=== PATIENT | male | born 1945 | race Caucasian/White ===

== ENCOUNTER 2023-10-12 23:47 | Inpatient (IN) ==
[2023-10-13 00:23] LABS: iSTAT Creatinine 6.9 mg/dl (0.6-1.3); iSTAT Ionized Calcium 1.1 mmol/l (1.12-1.32); iSTAT Potassium 4.5 mmol/L (3.3-5.0)
[2023-10-13 01:13] LABS: Basophils # (auto) 0.11 K/uL (0.00-0.20); Eosinophils # (auto) 0.68 K/uL (0.00-0.50); Eosinophils % (auto) 6.3 %; Hemoglobin 15.4 g/dl (14.0-18.0); Immature Granulocytes # (auto) 0.06 K/uL (0.01-0.20); Immature Granulocytes % (auto) 0.6 %; Lymphocytes # (auto) 1.12 K/uL (1.20-3.40); Lymphocytes % (auto) 10.4 %; Mean Corpuscular Hemoglobin 30.5 pg (25.0-34.0); Mean Corpuscular Hgb Conc 33.5 g/dL (32.0-36.0); Mean Corpuscular Volume 91.1 fL (80.0-100.0); Monocytes # (auto) 1.01 K/uL (0.11-0.59); Monocytes % (auto) 9.3 %; Neutrophils # (auto) 7.83 K/uL (1.40-6.50); Neutrophils % (auto) 72.4 %; Platelet Count 305 K/uL (130-400); RDW Coefficient of Variation 16.6 % (11.5-14.5); Red Blood Count 5.05 M/uL (4.70-6.10); White Blood Count 10.81 K/ul (4.8-10.8)
[2023-10-13 01:21] LABS: Albumin Globulin Ratio 1.1 (0.9-2); Albumin Level 3.7 gm/dl (3.4-5.0); BUN Creatinine Ratio 5.5 (10-20); Bilirubin,Total 0.7 mg/dl (0.2-1.0); Calcium 9.4 mg/dl (8.6-10.3); Creatinine Clr Calc Pharmacy 10.9 ml/min; Est GFR (African American) 9.6 ml/min; Est GFR (Non-African American) 8.3 ml/min; Globulin 3.5 gm/dl (2.5-4.0); Magnesium 1.8 mg/dl (1.7-2.4); Potassium 4.5 mmol/L (3.5-5.1); Total Protein 7.2 gm/dl (6.0-8.3); Troponin I High Sensitivity 23.2 pg/ml (0-20)
[2023-10-13 01:31] LABS: D Dimer 4150 ug/L FEU (0-500)
[2023-10-13] MEDS ORDERED: OPTIRAY 320 125ml IV ONE (02:47)
--- NOTE | 2023-10-13 03:28 | CT Scan Report ---
Exam(s): CTA CHEST IV Amt: 118 ml opti 320 EXAM: CT Angiography Chest With Intravenous Contrast CLINICAL HISTORY: Reason for exam: PE. TECHNIQUE: Axial computed tomographic angiography images of the chest with intravenous contrast. Automated exposure control was utilized for the study. A dose lowering technique was utilized adhering to the principles of ALARA. MIP reconstructed images were created and reviewed. COMPARISON: None. FINDINGS: Pulmonary arteries: Feeling defect identified within the distal bilateral pulmonary arteries extending into the proximal right lower lobe pulmonary artery, left lower lobe and lingular lobe pulmonary arteries consistent with multiple bilateral pulmonary emboli. Small filling defects within the mid distal segmental and subsegmental pulmonary arteries in bilateral lower lobes and lingular locular cyst lined with small pulmonary emboli. Aorta: Atherosclerotic disease of aorta with no aneurysm or dissection. Lungs: Diffuse mild interstitial prominence, cannot exclude interstitial lung disease. Mild emphysematous changes with the lung apices. Bilateral lower lobe atelectasis. Posterior dependent atelectasis involving the bilateral upper lobes. No mass. Pleural space: Unremarkable. No pleural effusion or pneumothorax. Heart: The RV/LV ratio is approximately 1.3 which may indicate mild right-sided cardiac strain. There is hypertrophy of the left ventricle. Mild cardiomegaly with coronary artery calcifications. No significant pericardial effusion. Bones/joints: No acute fracture. No dislocation. Soft tissues: Unremarkable. Lymph nodes: Unremarkable. No enlarged lymph nodes. Intraperitoneal space: Mild ascites surrounding the liver. Remainder of the visualized upper abdominal structures unremarkable. Other findings: Multilevel degenerative disease of the spine. IMPRESSION: 1. Multiple bilateral pulmonary emboli with findings suggesting of early cardiac strain versus hypertrophic changes of the left ventricle, etiology indeterminate. 2. Bilateral lower lobe atelectasis with posterior upper lobe dependent atelectasis as described. 3. No pleural effusion or pneumothorax 4. Mild ascites. Communications: Call Doctor Other Electronically signed by: Quin Ervin MD 10/13/23 03:27 AM
[2023-10-13] MEDS ORDERED: Heparin IV Adult Wt-Based Standard w/ INITIAL Bolus Protocol IV STA (04:00)
[2023-10-13] MEDS ORDERED: HEPARIN SOD (PORCINE) 1000 UNIT/ML IV ONE ×2 (04:15→04:45)
[2023-10-13 04:19] LABS: Prothrombin Time 10.9 Seconds (9.0-12.0)
[2023-10-13] MEDS: HEPARIN SODIUM/DEXTROSE 25,000 UNITS/500 ML BAG IV SCH ×2 (04:56→23:03)
[2023-10-13 04:58] LABS: Appearance Urine Clear (Clear); Bacteria Urine Automated Negative (Negative); Bilirubin Urine Negative (Negative); Blood Urine Trace (Negative); Cast Urine Automated 0 /lpf (0-5); Color Urine Yellow; Epithelial Cell Urine Auto 0-5 /lpf (0-5); Glucose Urine UA Negative (Negative); Ketones Urine Negative (Negative); Leukocyte Esterase Urine Negative (Negative); Nitrite Urine Negative (Negative); RBC Urine Automated 0-4 /hpf (0-4); Specific Gravity Urine 1.013 (1.000-1.030); Urobilinogen Urine Negative (Negative); WBC Urine Automated 0 /hpf (0-5); pH Urine 8.5 (4.5-7.5)
[2023-10-13] MEDS ORDERED: METOPROLOL TARTRATE 1 MG/ML VIAL IV STA (05:00)
[2023-10-13] MEDS ORDERED: SODIUM CHLORIDE 0.9% 500 ML IV SCH (05:00)
--- NOTE | 2023-10-13 05:24 | History & Physical Report ---
Date of Service October 13, 2023 Assessment & Plan (1) Bilateral pulmonary embolism: Plan: 78-year-old male with past medical history significant for peripheral vascular disease, hypertension, history of prostate cancer s/p surgery, end-stage renal disease on peritoneal dialysis comes in because of shortness of breath and palpitation and found to be have bilateral PE and right heart strain. Bilateral pulm embolism Possible right heart strain Mild elevation troponin Started on IV heparin Will follow serial cardiac enzymes and echo Will keep him n.p.o. for now Close monitoring telemetry Tachycardia Wide-complex tachycardia History of 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 Initially his blood pressure was soft but that improved Seems poor oral intake since last 2 weeks Will give gentle fluid bolus and dose of Lopressor IV Lopressor as needed Continue home Coreg Follow echo Telemetry floor Close monitor Cardiology consulted Hypertension Ex- states he is currently taking Coreg 6.25 twice daily Will monitor End-stage renal disease On peritoneal dialysis History of prostate cancer S/p surgery DVT prophylaxis IV heparin Disposition Telemetry floor Full code History of Present Illness Chief Complaint: Shortness of breath Primary Care Provider: [facility] 78-year-old male with past medical history significant for peripheral vascular disease, hypertension, history of prostate cancer s/p surgery, end-stage renal disease on peritoneal dialysis comes in because of shortness of breath and palpitation and found to be have bilateral PE and right heart strain. Patient is very hard of hearing. He lives alone. His ex- and son checks on him daily and hung his peritoneal dialysis daily. For the last 2 weeks is getting progressively short of breath . Walking few steps making him short of breath. When his son was checking on him today his heart was high and brought him here. Initially blood pressure was soft but currently is improved. Heart rates in 150s. Denies any headache. No runny nose or sore throat. Has chronic smoker's cough. Denies any chest pain. No nausea. No abdominal pain. Normal bowel movements. As per his ex- is not eating much since last 2 weeks. Very weak and tired. No fevers. Ex gave most of the history as patient very hard of hearing. Past medical history. As mentioned above Past surgical history. S/p prostatectomy Social history. Former smoker. Quit smoking in January 2023 as per ex-. Alcohol 4 mixed drink per week as per epic. No drug use. Family history. Father had diabetes Allergies Allergy/AdvReac Type Severity Reaction Status Date / Time No Known Allergies Allergy Verified 10/13/23 00:50 Home Medications Medication Instructions Recorded Confirmed Type carvedilol 12.5 mg tablet 12.5 mg PO BID 05/02/23 10/13/23 History vitamin B complex-vitamin C-folic 1 tab PO QAM 05/02/23 10/13/23 History acid 0.8 mg tablet (Nephro-Igor) docusate sodium 100 mg capsule 100 mg PO DAILY 10/13/23 10/13/23 History (Stool Softener) Past Med/Surg History Medical History Renal cyst 3.9 cm cystic lesion-L Paroxysmal A-fib listed in [facility] records CAD (coronary artery disease) PVD (peripheral vascular disease) Dysphagia Anemia Pulmonary nodule MGUS (monoclonal gammopathy of unknown significance) follows with [facility] heme/onc LBBB (left bundle branch block) Hearing deficit Hyperkalemia Prostate cancer s/p prostatectomy Tobacco use Quit 03/2023 HTN (hypertension) HLD (hyperlipidemia) CKD (chronic kidney disease), stage V Surgical History History of appendectomy History of tooth extraction all teeth removed History of bilateral cataract extraction History of prostatectomy Family History Father Diabetes Other No family history of adverse response to anesthesia Social History Smoking Status: Former smoker Tobacco Type: Cigars Smoking End Date: January 2023; Second Hand Exposure: No; Do You Dip or Chew Tobacco: No; Tobacco Cessation Education Requested by Patient: No Hx Alcohol Use: Yes Alcohol type: hard liquor Hx Substance Use: No Preferred Language: Hungarian Communication Ability: Effective Test Desk Supervisor Required: No Beliefs That Will Affect Care: None Current Living Situation: Alone Current Living Situation Comment: Patient lives alone but ex- and son check on him daily and assist pt Other Information That Helps Us Care for You: No Feels Safe at Home: Yes Safety Concerns: Feels Safe At This Time Assistive Devices: Hearing Aid - Bilateral and Walker Review of Systems Review of Systems: All systems reviewed & are unremarkable except as noted in HPI & below Physical Exam Physical Exam: General- Not in distress Head- atraumatic Eyes- PERRL. ENT- oropharynx clear Neck- supple, no JVD. Lungs- clear to auscultation, no wheezing or crackles. Heart- regular rhythm; Tachycardia, no murmur, no gallop. Abdomen- normal bowel sounds, soft, nontender, no distension. PD cath site no erythema seen. Extremities- no pretibial edema, no erythema Neuro- alert,and oriented., hard of hearing. ; PERRL, no facial palsy; no dysarthria; moves extremities. Skin- warm & dry Results & Data Results & Data Vital Signs (Past 12 Hours) Vital Signs Temp Pulse Pulse Resp BP BP Pulse Ox 10/13/23 04:15 156 H 10/13/23 03:15 156 H 20 116/84 92 10/13/23 02:45 150 H 25 H 122/95 91 10/13/23 02:15 159 H 19 122/87 94 10/13/23 02:00 167 H 20 97/76 L 94 10/13/23 01:45 160 H 25 H 109/89 93 10/13/23 01:30 159 H 19 114/86 93 10/13/23 01:15 160 H 16 107/82 94 10/13/23 01:00 161 H 16 114/89 93 10/13/23 00:45 163 H 14 109/85 95 10/13/23 00:31 164 H 20 118/83 95 10/13/23 00:15 163 H 25 H 116/88 94 10/13/23 00:12 163 H 22 96 10/13/23 00:12 164 H 10/13/23 00:09 163 H 20 114/78 93 10/13/23 00:02 179 H 17 95/77 L 94 10/13/23 00:00 179 H 17 97/74 L 96 10/12/23 23:51 36.7 C 165 H 22 124/80 95 10/12/23 23:51 95 O2 Del Method 10/13/23 04:15 10/13/23 03:15 Room Air 10/13/23 02:45 Room Air 10/13/23 02:15 Room Air 10/13/23 02:00 Room Air 10/13/23 01:45 Room Air 10/13/23 01:30 Room Air 10/13/23 01:15 Room Air 10/13/23 01:00 Room Air 10/13/23 00:45 10/13/23 00:31 Room Air 10/13/23 00:15 Room Air 10/13/23 00:12 Room Air 10/13/23 00:12 10/13/23 00:09 Room Air 10/13/23 00:02 Room Air 10/13/23 00:00 Room Air 10/12/23 23:51 Room Air 10/12/23 23:51 Room Air Diagnostic Findings Laboratory Results WBC 10.81 K/ul (4.8-10.8) H 10/13/23 00:00 RBC 5.05 M/uL (4.70-6.10) 10/13/23 00:00 Hgb 15.4 g/dl (14.0-18.0) 10/13/23 00:00 POC Hgb 16.0 g/dl (14.0-18.0) 10/13/23 00:06 Hct 46.0 % (42.0-52.0) 10/13/23 00:00 POC Hct 47 % (42-52) 10/13/23 00:06 MCV 91.1 fL (80.0-100.0) 10/13/23 00:00 MCH 30.5 pg (25.0-34.0) 10/13/23 00:00 MCHC 33.5 g/dL (32.0-36.0) 10/13/23 00:00 RDW Std Deviation 55.0 fL (36.4-46.3) H 10/13/23 00:00 RDW Coeff of Maureen 16.6 % (11.5-14.5) H 10/13/23 00:00 Plt Count 305 K/uL (130-400) 10/13/23 00:00 MPV 11.0 fL (9.4-12.4) 10/13/23 00:00 Immature Gran % (Auto) 0.6 % 10/13/23 00:00 Neut % (Auto) 72.4 % 10/13/23 00:00 Lymph % (Auto) 10.4 % 10/13/23 00:00 [place] % (Auto) 9.3 % 10/13/23 00:00 Eos % (Auto) 6.3 % 12/25/23 00:00 Baso % (Auto) 1.0 % 10/13/23 00:00 Neut # (Auto) 7.83 K/uL (1.40-6.50) H 10/13/23 00:00 Lymph # (Auto) 1.12 K/uL (1.20-3.40) L 10/13/23 00:00 [place] # (Auto) 1.01 K/uL (0.11-0.59) H 10/13/23 00:00 Eos # (Auto) 0.68 K/uL (0.00-0.50) H 10/13/23 00:00 Baso # (Auto) 0.11 K/uL (0.00-0.20) 10/13/23 00:00 Immature Gran # (Auto) 0.06 K/uL (0.01-0.20) 10/13/23 00:00 PT 10.9 Seconds (9.0-12.0) 10/13/23 00:00 INR 1.0 (0.9-1.1) 10/13/23 00:00 D-Dimer 4150 ug/L FEU (0-500) H* 10/13/23 00:00 POC Sodium 134 mmol/L (135-144) L 10/13/23 00:06 Sodium 135 mmol/L (136-145) L 10/13/23 00:00 POC Potassium 4.5 mmol/L (3.3-5.0) 10/13/23 00:06 Potassium 4.5 mmol/L (3.5-5.1) 10/13/23 00:00 POC Chloride 97 mmol/L (101-112) L 10/13/23 00:06 Chloride 94 mmol/L (98-107) L 10/13/23 00:00 Carbon Dioxide 28 mmol/L (21-32) 10/13/23 00:00 POC Total CO2 26 mmol/L (24-31) 10/13/23 00:06 Anion Gap 13 (3-11) H 10/13/23 00:00 POC Anion Gap 17.0 mmol/L (16-25) 10/13/23 00:06 POC BUN 31 mg/dl (7-18) H 10/13/23 00:06 BUN 33 mg/dl (6-23) H 10/13/23 00:00 Creatinine 5.99 mg/dl (0.6-1.4) H* 10/13/23 00:00 POC Creatinine 6.9 mg/dl (0.6-1.3) H* 10/13/23 00:06 Est Cr Clr Drug Dosing 10.9 ml/min 10/13/23 00:00 Est GFR ( Amer) 9.6 ml/min 10/13/23 00:00 Est GFR (Non-Af Amer) 8.3 ml/min 10/13/23 00:00 BUN/Creatinine Ratio 5.5 (10-20) L 10/13/23 00:00 Glucose 132 mg/dl (70-99(Fasting)) H 10/13/23 00:00 POC Glucose (other) 130 mg/dl (70-99) H 10/13/23 00:06 Calcium 9.4 mg/dl (8.6-10.3) 10/13/23 00:00 POC Ioniz Calcium Edie 1.10 mmol/l (1.12-1.32) L 10/13/23 00:06 Magnesium 1.8 mg/dl (1.7-2.4) 10/13/23 00:00 Total Bilirubin 0.7 mg/dl (0.2-1.0) 10/13/23 00:00 AST 27 U/L (13-39) 10/13/23 00:00 ALT 29 U/L (7-52) 10/13/23 00:00 Alkaline Phosphatase 85 U/L (34-104) 10/13/23 00:00 Troponin I High Sens 31.7 pg/ml (0-20) H 10/13/23 01:56 B-Natriuretic Peptide 348 pg/ml (0-100) H 10/13/23 01:23 Total Protein 7.2 gm/dl (6.0-8.3) 10/13/23 00:00 Albumin 3.7 gm/dl (3.4-5.0) 10/13/23 00:00 Globulin 3.5 gm/dl (2.5-4.0) 10/13/23 00:00 Albumin/Globulin Ratio 1.1 (0.9-2) 10/13/23 00:00 Impressions Chest CTA 10/13/23 02:18 CR Exam(s): CTA CHEST IV Amt: 118 ml opti 320 EXAM: CT Angiography Chest With Intravenous Contrast CLINICAL HISTORY: Reason for exam: PE. TECHNIQUE: Axial computed tomographic angiography images of the chest with intravenous contrast. Automated exposure control was utilized for the study. A dose lowering technique was utilized adhering to the principles of ALARA. MIP reconstructed images were created and reviewed. COMPARISON: None. FINDINGS: Pulmonary arteries: Feeling defect identified within the distal bilateral pulmonary arteries extending into the proximal right lower lobe pulmonary artery, left lower lobe and lingular lobe pulmonary arteries consistent with multiple bilateral pulmonary emboli. Small filling defects within the mid distal segmental and subsegmental pulmonary arteries in bilateral lower lobes and lingular locular cyst lined with small pulmonary emboli. Aorta: Atherosclerotic disease of aorta with no aneurysm or dissection. Lungs: Diffuse mild interstitial prominence, cannot exclude interstitial lung disease. Mild emphysematous changes with the lung apices. Bilateral lower lobe atelectasis. Posterior dependent atelectasis involving the bilateral upper lobes. No mass. Pleural space: Unremarkable. No pleural effusion or pneumothorax. Heart: The RV/LV ratio is approximately 1.3 which may indicate mild right-sided cardiac strain. There is hypertrophy of the left ventricle. Mild cardiomegaly with coronary artery calcifications. No significant pericardial effusion. Bones/joints: No acute fracture. No dislocation. Soft tissues: Unremarkable. Lymph nodes: Unremarkable. No enlarged lymph nodes. Intraperitoneal space: Mild ascites surrounding the liver. Remainder of the visualized upper abdominal structures unremarkable. Other findings: Multilevel degenerative disease of the spine. IMPRESSION: 1. Multiple bilateral pulmonary emboli with findings suggesting of early cardiac strain versus hypertrophic changes of the left ventricle, etiology indeterminate. 2. Bilateral lower lobe atelectasis with posterior upper lobe dependent atelectasis as described. 3. No pleural effusion or pneumothorax 4. Mild ascites. Communications: Call Doctor Other Electronically signed by: Quin Ervin MD 10/13/23 03:27 AM ECG Additional Comments: EKG. Wide QRS tachycardia rate of 164. Left axis deviation. Right bundle branch block. No significant change was found. QTc 515. Code Status & VTE Plan VTE Prophylaxis Plan VTE Prophylaxis will be ordered: Yes
[2023-10-13 05:48] LABS: Protein Urine 2+ (Negative)
[2023-10-13 05:56] LABS: Influenza A virus by PCR Negative (Neg); Influenza B virus by PCR Negative (Neg); RSV by PCR Negative (Neg); SARS CoV2 RNA(COVID-19) Ceph NEGATIVE (Negative)
--- NOTE | 2023-10-13 06:13 | Emergency Department Note ---
Impression & Plan Bilateral pulmonary embolism, Acute dyspnea Admit to the [facility] ED Provider Note NAME: JIGNESH BIRD AGE: 78 SEX: Male INFORMANT: Patient ED PROVIDER(S): Tammie Hodgson DO CHIEF COMPLAINT: Shortness of breath PLAN: Disposition: Admit to the [facility] MEDICAL DECISION MAKING: This is a 78-year-old male patient who presents to the emergency department with sudden onset of shortness of breath that worsens with walking. Patient was noted to be significantly tachycardic on EKG. O2 saturations were stable. Laboratory studies reveal white count of 10.8. H&H were stable. Patient had a significant elevation to his D-dimer of 4150. Initial troponin was elevated to 23. BNP was 348. Second troponin was 31.7 chest x-ray showed evidence of mild pulmonary edema. He went for CT scan of the chest to rule out PE. This did show evidence of bilateral pulmonary emboli with right heart strain. Patient was bolused with heparin and started on a heparin drip. He remained hemodynamically stable while here in the emergency department. I discussed the case with the [facility] and they will evaluate for further inpatient care Care/management discussed with: Stat rad radiologist; [facility] Triage Nursing notes: reviewed and agree with them. Vital Signs: reviewed and remarkable for significant tachycardia Additional History obtained from: The patient's family members who are at the bedside Chronic Medical/Social Conditions affecting care: Remote history of significant tobacco abuse; remote history of A-fib Differential Diagnosis: CHF, pneumonia, PE; A-fib Diagnostics, independently interpreted by me: ECG: Wide-complex tachycardia at a rate of 164; right bundle branch block. This was compared to an EKG from April 2023 was essentially the same except the right was 30 beats faster. Cardiac Monitoring: Wide-complex tachycardia at a rate of 150 Imaging studies: Portable chest x-ray: Moderate pulmonary vascular congestion as per my independent interpretation CT scan of the chest: As per stat rad HPI: 78 year old Male arrives for evaluation of 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 Patient developed sudden shortness of breath earlier this evening with only walking short distances. His family took his vital signs and noted that his heart rate was in the 160s. A similar episode happened years ago and he was noted to be in atrial fibrillation and was hyperkalemic. PAST MEDICAL HISTORY: See Below, PAST SURGICAL HISTORY: See Below, SOCIAL HISTORY: See Below, HOME MEDICATIONS: See list ALLERGIES: None VITALS: See Below PHYSICAL EXAMINATION: HEENT: Head - normocephalic and atraumatic Pupils are equal, round, and reactive to light. Extraocular eye muscles are intact, and sclera are anicteric. Nose - moist nasal mucosa without discharge. Mouth - moist buccal mucosa. Oropharynx is nonerythematous and there is no tonsillar exudate or edema noted. Neck: Supple; no JVD, nuchal rigidity, cervical lymphadenopathy, or auscultated bruits. Heart: Tachycardic rate with a regular rhythm there is a normal S1 and S2 with no murmurs, clicks, or gallops appreciated. Lungs: Diminished breath sounds with rales at the bases Abdomen: Soft, completely nontender, nondistended, with good bowel sounds. There are no palpable pulsatile masses or hepatosplenomegaly. There is no guarding, rigidity, or rebound noted. Extremities: No evidence of cyanosis, clubbing, or edema. There are easily palpable peripheral pulses. Skin: warm and dry with good turgor and no rashes. 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 A complete history and physical was performed. Laboratory studies were drawn as above twelve-lead EKG was obtained. An order was placed for continuous cardiac monitoring. The patient was then a wide-complex tachycardia at a rate of 166. Portable chest x-ray was performed. Patient went for CT scan of the chest to rule out PE. Stools were heme tested and were negative. I reviewed the results of the labs and the CT with the patient and his family. Patient was bolused with IV heparin and started on a heparin drip. [facility] for further [facility] care. CRITICAL CARE: I have personally spent greater than 45 minutes of critical care time in the direct management of this patient. This includes bedside care, interpretation of diagnostic studies, and testing, discussion with consultants, patient, and family members, and other required patient management activities. This 45 minutes is in excess of all separately billable procedures. Past Med/Surg History Medical History Renal cyst 3.9 cm cystic lesion-L Paroxysmal A-fib listed in [facility] records CAD (coronary artery disease) PVD (peripheral vascular disease) Dysphagia Anemia Pulmonary nodule MGUS (monoclonal gammopathy of unknown significance) follows with S heme/onc LBBB (left bundle branch block) Hearing deficit Hyperkalemia Prostate cancer s/p prostatectomy Tobacco use Quit 03/2023 HTN (hypertension) HLD (hyperlipidemia) CKD (chronic kidney disease), stage V Surgical History History of appendectomy History of tooth extraction all teeth removed History of bilateral cataract extraction History of prostatectomy Family History Father Diabetes Other No family history of adverse response to anesthesia Social History Smoking Status: Former smoker Tobacco Type: Cigars Smoking End Date: January 2023; Second Hand Exposure: No; Do You Dip or Chew Tobacco: No; Tobacco Cessation Education Requested by Patient: No Hx Alcohol Use: Yes Alcohol type: hard liquor Hx Substance Use: No Preferred Language: Belarusian Communication Ability: [employer] Front Desk Attendant Required: No Beliefs That Will Affect Care: None Current Living Situation: Alone Current Living Situation Comment: Patient lives alone but ex- and son check on him daily and assist pt Other Information That Helps Us Care for You: No Feels Safe at Home: Yes Safety Concerns: Feels Safe At This Time Assistive Devices: Hearing Aid - Bilateral and Walker Allergies Allergies Allergy/AdvReac Type Severity Reaction Status Date / Time No Known Allergies Allergy Verified 10/13/23 00:50 Home Meds Home Medications Medication Instructions Recorded Confirmed carvedilol 12.5 mg tablet 12.5 mg PO BID 05/02/23 10/13/23 vitamin B complex-vitamin C-folic 1 tab PO QAM 05/02/23 10/13/23 acid 0.8 mg tablet (Nephro-Igor) docusate sodium 100 mg capsule 100 mg PO DAILY 10/13/23 10/13/23 (Stool Softener) Results & Data (ED) Vital Signs Vital Signs - 24 hr 10/12/23 23:51 10/12/23 23:51 10/13/23 00:00 Temperature 36.7 C Temperature Source Oral Pulse Rate 165 H 179 H Pulse Rate [Apical] Respiratory Rate 22 17 Respiratory Effort / Characteristics Non-Labored Respiratory Depth Normal Respiratory Pattern Regular Blood Pressure 124/80 97/74 L Blood Pressure [Right Arm] Blood Pressure Mean 94 81 Blood Pressure Mean [Right Arm] Pulse Oximetry 95 95 96 Oxygen Delivery Method Room Air Room Air Room Air Sepsis Recent Fever Within 48 Hours No Sepsis New/Unexplained Change in Mental Status N/A Sepsis Action Taken by Nursing Adv Provider Notified 10/13/23 00:02 10/13/23 00:09 10/13/23 00:12 Temperature Temperature Source Pulse Rate 179 H 163 H 164 H Pulse Rate [Apical] Respiratory Rate 17 20 Respiratory Effort / Characteristics Respiratory Depth Respiratory Pattern Blood Pressure 95/77 L 114/78 Blood Pressure [Right Arm] Blood Pressure Mean 83 90 Blood Pressure Mean [Right Arm] Pulse Oximetry 94 93 Oxygen Delivery Method Room Air Room Air Sepsis Recent Fever Within 48 Hours Sepsis New/Unexplained Change in Mental Status Sepsis Action Taken by Nursing 10/13/23 00:12 10/13/23 00:15 10/13/23 00:31 Temperature Temperature Source Pulse Rate 163 H 163 H 164 H Pulse Rate [Apical] Respiratory Rate 22 25 H 20 Respiratory Effort / Characteristics Respiratory Depth Respiratory Pattern Blood Pressure 116/88 118/83 Blood Pressure [Right Arm] Blood Pressure Mean 97 94 Blood Pressure Mean [Right Arm] Pulse Oximetry 96 94 95 Oxygen Delivery Method Room Air Room Air Room Air Sepsis Recent Fever Within 48 Hours Sepsis New/Unexplained Change in Mental Status Sepsis Action Taken by Nursing 10/13/23 00:45 10/13/23 01:00 10/13/23 01:15 Temperature Temperature Source Pulse Rate 163 H 161 H 160 H Pulse Rate [Apical] Respiratory Rate 14 16 16 Respiratory Effort / Characteristics Respiratory Depth Respiratory Pattern Blood Pressure 109/85 114/89 107/82 Blood Pressure [Right Arm] Blood Pressure Mean 93 97 90 Blood Pressure Mean [Right Arm] Pulse Oximetry 95 93 94 Oxygen Delivery Method Room Air Room Air Sepsis Recent Fever Within 48 Hours Sepsis New/Unexplained Change in Mental Status Sepsis Action Taken by Nursing 10/13/23 01:30 10/13/23 01:45 10/13/23 02:00 Temperature Temperature Source Pulse Rate 159 H 160 H 167 H Pulse Rate [Apical] Respiratory Rate 19 25 H 20 Respiratory Effort / Characteristics Respiratory Depth Respiratory Pattern Blood Pressure 114/86 109/89 97/76 L Blood Pressure [Right Arm] Blood Pressure Mean 95 95 83 Blood Pressure Mean [Right Arm] Pulse Oximetry 93 93 94 Oxygen Delivery Method Room Air Room Air Room Air Sepsis Recent Fever Within 48 Hours Sepsis New/Unexplained Change in Mental Status Sepsis Action Taken by Nursing 10/13/23 02:15 10/13/23 02:45 10/13/23 03:15 Temperature Temperature Source Pulse Rate 159 H 150 H Pulse Rate [Apical] 156 H Respiratory Rate 19 25 H 20 Respiratory Effort / Characteristics Respiratory Depth Respiratory Pattern Blood Pressure 122/87 122/95 Blood Pressure [Right Arm] 116/84 Blood Pressure Mean 98 104 Blood Pressure Mean [Right Arm] 94 Pulse Oximetry 94 91 92 Oxygen Delivery Method Room Air Room Air Room Air Sepsis Recent Fever Within 48 Hours Sepsis New/Unexplained Change in Mental Status Sepsis Action Taken by Nursing 10/13/23 04:15 Temperature Temperature Source Pulse Rate 156 H Pulse Rate [Apical] Respiratory Rate Respiratory Effort / Characteristics Respiratory Depth Respiratory Pattern Blood Pressure Blood Pressure [Right Arm] Blood Pressure Mean Blood Pressure Mean [Right Arm] Pulse Oximetry Oxygen Delivery Method Sepsis Recent Fever Within 48 Hours Sepsis New/Unexplained Change in Mental Status Sepsis Action Taken by Nursing Laboratory Data 10/13/23 10:41 10/13/23 10:41 Lab Results 10/13/23 10/13/23 10/13/23 Range/Units 00:00 00:06 01:23 WBC 10.81 H (4.8-10.8) K/ul RBC 5.05 (4.70-6.10) M/uL Hgb 15.4 (14.0-18.0) g/dl POC Hgb 16.0 (14.0-18.0) g/dl Hct 46.0 (42.0-52.0) % POC Hct 47 (42-52) % MCV 91.1 (80.0-100.0) fL MCH 30.5 (25.0-34.0) pg MCHC 33.5 (32.0-36.0) g/dL RDW Std Deviation 55.0 H (36.4-46.3) fL RDW Coeff of Maureen 16.6 H (11.5-14.5) % Plt Count 305 (130-400) K/uL MPV 11.0 (9.4-12.4) fL Immature Gran % (Auto) 0.6 % Neut % (Auto) 72.4 % Lymph % (Auto) 10.4 % [place] % (Auto) 9.3 % Eos % (Auto) 6.3 % Baso % (Auto) 1.0 % Neut # (Auto) 7.83 H (1.40-6.50) K/uL Lymph # (Auto) 1.12 L (1.20-3.40) K/uL [place] # (Auto) 1.01 H (0.11-0.59) K/uL Eos # (Auto) 0.68 H (0.00-0.50) K/uL Baso # (Auto) 0.11 (0.00-0.20) K/uL Immature Gran # (Auto) 0.06 (0.01-0.20) K/uL PT 10.9 (9.0-12.0) Seconds INR 1.0 (0.9-1.1) D-Dimer 4150 H* (0-500) ug/L FEU POC Sodium 134 L (135-144) mmol/L Sodium 135 L (136-145) mmol/L POC Potassium 4.5 (3.3-5.0) mmol/L Potassium 4.5 (3.5-5.1) mmol/L POC Chloride 97 L (101-112) mmol/L Chloride 94 L (98-107) mmol/L Carbon Dioxide 28 (21-32) mmol/L POC Total CO2 26 (24-31) mmol/L Anion Gap 13 H (3-11) POC Anion Gap 17.0 (16-25) mmol/L POC BUN 31 H (7-18) mg/dl BUN 33 H (6-23) mg/dl Creatinine 5.99 H* (0.6-1.4) mg/dl POC Creatinine 6.9 H* (0.6-1.3) mg/dl Est Cr Clr Drug Dosing 10.9 ml/min Est GFR ( Amer) 9.6 ml/min Est GFR (Non-Af Amer) 8.3 ml/min BUN/Creatinine Ratio 5.5 L (10-20) Glucose 132 H (70-99(Fasting)) mg/dl POC Glucose (other) 130 H (70-99) mg/dl Calcium 9.4 (8.6-10.3) mg/dl POC Ioniz Calcium Edie 1.10 L (1.12-1.32) mmol/l Magnesium 1.8 (1.7-2.4) mg/dl Total Bilirubin 0.7 (0.2-1.0) mg/dl AST 27 (13-39) U/L ALT 29 (7-52) U/L Alkaline Phosphatase 85 (34-104) U/L Troponin I High Sens 23.2 H (0-20) pg/ml B-Natriuretic Peptide 348 H (0-100) pg/ml Total Protein 7.2 (6.0-8.3) gm/dl Albumin 3.7 (3.4-5.0) gm/dl Globulin 3.5 (2.5-4.0) gm/dl Albumin/Globulin Ratio 1.1 (0.9-2) Urine Color Urine Appearance (Clear) Urine pH (4.5-7.5) Ur Specific [place] (1.000-1.030) Urine Protein (Negative) Urine Glucose (UA) (Negative) Urine Ketones (Negative) Urine Blood (Negative) Urine Nitrite (Negative) Urine Bilirubin (Negative) Urine Urobilinogen (Negative) Ur Leukocyte Esterase (Negative) Urine WBC (Auto) (0-5) /hpf Urine RBC (Auto) (0-4) /hpf U Hyaline Cast (Auto) (0-5) /lpf U Epithel Cells (Auto) (0-5) /lpf Urine Bacteria (Auto) (Negative) SARS-CoV-2 (PCR) (Negative) Influenza Type A (PCR) (Neg) Influenza Type B (PCR) (Neg) RSV (RT-PCR) (Neg) 10/13/23 10/13/23 10/13/23 Range/Units 01:56 04:40 05:00 WBC (4.8-10.8) K/ul RBC (4.70-6.10) M/uL Hgb (14.0-18.0) g/dl POC Hgb (14.0-18.0) g/dl Hct (42.0-52.0) % POC Hct (42-52) % MCV (80.0-100.0) fL MCH (25.0-34.0) pg MCHC (32.0-36.0) g/dL RDW Std Deviation (36.4-46.3) fL RDW Coeff of Maureen (11.5-14.5) % Plt Count (130-400) K/uL MPV (9.4-12.4) fL Immature Gran % (Auto) % Neut % (Auto) % Lymph % (Auto) % [place] % (Auto) % Eos % (Auto) % Baso % (Auto) % Neut # (Auto) (1.40-6.50) K/uL Lymph # (Auto) (1.20-3.40) K/uL [place] # (Auto) (0.11-0.59) K/uL Eos # (Auto) (0.00-0.50) K/uL Baso # (Auto) (0.00-0.20) K/uL Immature Gran # (Auto) (0.01-0.20) K/uL PT (9.0-12.0) Seconds INR (0.9-1.1) D-Dimer (0-500) ug/L FEU POC Sodium (135-144) mmol/L Sodium (136-145) mmol/L POC Potassium (3.3-5.0) mmol/L Potassium (3.5-5.1) mmol/L POC Chloride (101-112) mmol/L Chloride (98-107) mmol/L Carbon Dioxide (21-32) mmol/L POC Total CO2 (24-31) mmol/L Anion Gap (3-11) POC Anion Gap (16-25) mmol/L POC BUN (7-18) mg/dl BUN (6-23) mg/dl Creatinine (0.6-1.4) mg/dl POC Creatinine (0.6-1.3) mg/dl Est Cr Clr Drug Dosing ml/min Est GFR ( Amer) ml/min Est GFR (Non-Af Amer) ml/min BUN/Creatinine Ratio (10-20) Glucose (70-99(Fasting)) mg/dl POC Glucose (other) (70-99) mg/dl Calcium (8.6-10.3) mg/dl POC Ioniz Calcium Edie (1.12-1.32) mmol/l Magnesium (1.7-2.4) mg/dl Total Bilirubin (0.2-1.0) mg/dl AST (13-39) U/L ALT (7-52) U/L Alkaline Phosphatase (34-104) U/L Troponin I High Sens 31.7 H (0-20) pg/ml B-Natriuretic Peptide (0-100) pg/ml Total Protein (6.0-8.3) gm/dl Albumin (3.4-5.0) gm/dl Globulin (2.5-4.0) gm/dl Albumin/Globulin Ratio (0.9-2) Urine Color Yellow Urine Appearance Clear (Clear) Urine pH 8.5 H (4.5-7.5) Ur Specific [place] 1.013 (1.000-1.030) Urine Protein 2+ H (Negative) Urine Glucose (UA) Negative (Negative) Urine Ketones Negative (Negative) Urine Blood Trace H (Negative) Urine Nitrite Negative (Negative) Urine Bilirubin Negative (Negative) Urine Urobilinogen Negative (Negative) Ur Leukocyte Esterase Negative (Negative) Urine WBC (Auto) 0 (0-5) /hpf Urine RBC (Auto) 0-4 (0-4) /hpf U Hyaline Cast (Auto) 0 (0-5) /lpf U Epithel Cells (Auto) 0-5 (0-5) /lpf Urine Bacteria (Auto) Negative (Negative) SARS-CoV-2 (PCR) NEGATIVE (Negative) Influenza Type A (PCR) Negative (Neg) Influenza Type B (PCR) Negative (Neg) RSV (RT-PCR) Negative (Neg) Administered Medications Docusate Sodium (Docusate Sodium 100 Mg Cap) 100 mg PO DAILY [facility] Stop: 11/12/23 08:59 Last Admin: 10/13/23 08:46 Dose: Not Given Documented By: ZAC Heparin Sodium/Dextrose (Heparin Sodium/Dextrose) 25,000 units in 500 mls @ 26 mls/hr IV .[id number] [facility]; Protocol Stop: 11/12/23 04:14 Last Titration: 10/13/23 12:14 Dose: 1,300 units/hr, 26 mls/hr Documented By: ZAC Co-signed By: JAYLON Admin: 10/13/23 04:56 Dose: 1,350 units/hr, 27 mls/hr Documented By: IZA Co-signed By: QUYEN Metoprolol Tartrate (Metoprolol Tartrate 25 Mg Tab) 25 mg PO QID [facility] Stop: 11/12/23 08:59 Last Admin: 10/13/23 14:15 Dose: 25 mg Documented By: Admin: 10/13/23 08:41 Dose: 25 mg Documented By: ZAC Vitamin B Complex/Folic Acid (Nephrocaps) 1 cap PO QAM [facility] Stop: 11/12/23 08:59 Last Admin: 10/13/23 08:41 Dose: 1 cap Documented By: ZAC Discontinued Medications Carvedilol (Carvedilol 6.25 Mg Tab) 6.25 mg PO BIDM [facility] Stop: 11/12/23 07:59 Last Admin: 10/13/23 13:03 Dose: Not Given Documented By: ZAC Heparin Sodium (Porcine) (Heparin Sod (Porcine) 1000 Unit/Ml) 6,000 units IV NOW ONE Stop: 10/13/23 04:46 Last Admin: 10/13/23 04:53 Dose: 5,000 units Documented By: IZA Co-signed By: QUYEN Heparin Sodium/Dextrose (Heparin Iv Adult Wt-Based Standard W/ Initial Bolus Protocol) 1 each IV NOW STA; Protocol Stop: 10/13/23 04:01 Last Admin: 10/13/23 04:53 Dose: Not Given Documented By: IZA Sodium Chloride (Nss) 500 mls @ 500 mls/hr IV .Q1H [facility] Stop: 10/13/23 05:59 Last Infusion: 10/13/23 14:16 Dose: Infused Documented By: Admin: 10/13/23 05:29 Dose: 500 mls/hr Documented By: IZA Ioversol (Optiray 320 125ml) 118 ml IV ONCE ONE Stop: 10/13/23 02:48 Last Admin: 10/13/23 02:47 Dose: 118 ml Documented By: KAYA Metoprolol Tartrate (Metoprolol Tartrate 1 Mg/Ml Vial) 5 mg IV NOW STA Stop: 10/13/23 05:01 Last Admin: 10/13/23 05:26 Dose: 5 mg Documented By: IZA Imaging Data Radiologist's Impression: Chest X-Ray 10/13/23 00:12 XR chest 1V portable CLINICAL HISTORY: Dyspnea TECHNIQUE: Single frontal radiograph of the chest was obtained. Comparison: Comparison is made to chest radiograph 05/02/2023 FINDINGS: No lines and tubes are seen. Cardiomegaly is noted. The aortic arch is calcified. Prominence and cephalization of the vasculature is seen. No evidence of pleural effusion or pneumothorax. IMPRESSION: Cardiomegaly and mild pulmonary edema. ACT 112: Negative or not required by law. Electronically signed by: Ajay Lipscomb M.D. 10/13/2023 9:02 AM Chest CTA 10/13/23 02:18 CR Exam(s): CTA CHEST IV Amt: 118 ml opti 320 EXAM: CT Angiography Chest With Intravenous Contrast CLINICAL HISTORY: Reason for exam: PE. TECHNIQUE: Axial computed tomographic angiography images of the chest with intravenous contrast. Automated exposure control was utilized for the study. A dose lowering technique was utilized adhering to the principles of ALARA. MIP reconstructed images were created and reviewed. COMPARISON: None. FINDINGS: Pulmonary arteries: Feeling defect identified within the distal bilateral pulmonary arteries extending into the proximal right lower lobe pulmonary artery, left lower lobe and lingular lobe pulmonary arteries consistent with multiple bilateral pulmonary emboli. Small filling defects within the mid distal segmental and subsegmental pulmonary arteries in bilateral lower lobes and lingular locular cyst lined with small pulmonary emboli. Aorta: Atherosclerotic disease of aorta with no aneurysm or dissection. Lungs: Diffuse mild interstitial prominence, cannot exclude interstitial lung disease. Mild emphysematous changes with the lung apices. Bilateral lower lobe atelectasis. Posterior dependent atelectasis involving the bilateral upper lobes. No mass. Pleural space: Unremarkable. No pleural effusion or pneumothorax. Heart: The RV/LV ratio is approximately 1.3 which may indicate mild right-sided cardiac strain. There is hypertrophy of the left ventricle. Mild cardiomegaly with coronary artery calcifications. No significant pericardial effusion. Bones/joints: No acute fracture. No dislocation. Soft tissues: Unremarkable. Lymph nodes: Unremarkable. No enlarged lymph nodes. Intraperitoneal space: Mild ascites surrounding the liver. Remainder of the visualized upper abdominal structures unremarkable. Other findings: Multilevel degenerative disease of the spine. IMPRESSION: 1. Multiple bilateral pulmonary emboli with findings suggesting of early cardiac strain versus hypertrophic changes of the left ventricle, etiology indeterminate. 2. Bilateral lower lobe atelectasis with posterior upper lobe dependent atelectasis as described. 3. No pleural effusion or pneumothorax 4. Mild ascites. Communications: Call Doctor Other Electronically signed by: Quin Ervin MD 10/13/23 03:27 AM Discharge Plan Visit Data Chief Complaint: Tachycardia Stated Complaint: RAPID HEART RATE ED Provider: Tammie Hodgson Discharge Problem: Bilateral pulmonary embolism, Acute dyspnea Patient Disposition: Admitted As Inpatient Discharge Instructions Interventions: ED Discharge Assessment Last Done: 10/13/23 05:24
[2023-10-13] MEDS ORDERED: POLYETHYLENE (MIRALAX) 17 GM PACK PO PRN (06:27)
[2023-10-13] MEDS ORDERED: NITROGLYCERIN SL 0.4 MG/TAB TAB SL PRN (06:27)
[2023-10-13] MEDS ORDERED: ACETAMINOPHEN 325 MG TAB PO PRN (06:27)
[2023-10-13] MEDS ORDERED: METOPROLOL TARTRATE 1 MG/ML VIAL IV PRN (06:27)
--- NOTE | 2023-10-13 06:55 | Electrocardiogram Report ---
Test Reason : Blood Pressure : / mmHG Vent. Rate : 164 BPM Atrial Rate : 000 BPM P-R Int : 000 ms QRS Dur : 126 ms QT Int : 312 ms P-R-T Axes : 000 -89 037 degrees QTc Int : 515 ms Atrial fibrillation with rapid ventricular response Left axis deviation Right bundle branch block Septal infarct , age undetermined Inferior infarct , age undetermined Abnormal ECG When compared with ECG of 03-MAY-2023 00:55, No significant change was found Confirmed by Dallas Barnett ([id number]) on 10/13/2023 6:55:24 AM Referred By: REFERRED SELF Confirmed By:Dallas Barnett
[2023-10-13] MEDS ORDERED: carvediloL 6.25 MG TAB PO SCH (08:00)
[2023-10-13] MEDS: NEPHROCAPS PO SCH (08:41)
[2023-10-13] MEDS: METOPROLOL TARTRATE 25 MG TAB PO SCH ×4 (08:41→22:08)
--- NOTE | 2023-10-13 08:44 | Cardiology Consultation ---
Date of Consultation October 13, 2023 Assessment & Plan (1) Bilateral pulmonary embolism: (2) Atrial fibrillation with rapid ventricular response: (3) CKD (chronic kidney disease), stage V: Plan 78-year-old male presenting with symptoms of increased dyspnea and palpitations. 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 Bilateral pulmonary emboli: Anticoagulation initiated with additional indications in setting of past paroxysmal now ongoing atrial fibrillation, uncertain duration 2. Atrial fibrillation with rapid ventricular response: Blood pressure initially low on presentation. Will discontinue carvedilol and begin metoprolol tartrate 25 mg 4 times daily. Uncertain duration of atrial fibrillation. Will follow with rate control and anticoagulation as initial approach Echocardiogram pending 3. Minimal elevation in troponin not suggestive of acute coronary syndrome expected in the setting of pulmonary emboli, atrial fibrillation with rapid response, chronic kidney disease History of Present Illness Reason for Consultation: Pulmonary emboli, atrial fibrillation with rapid ventricular response Requesting Physician: Dr. Washington Attending Physician: Bird Pastrana MD History of Present Illness Patient is a 78-year-old male followed primarily through nephrology clinic and [place] clinics. Prior cardiology assessment by Dr. Werner Platt July 2023 Underlying medical concerns include 1. Paroxysmal atrial fibrillation, previously declining chronic anticoagulation per record 2. Presumed coronary artery disease 3. CKD stage V on peritoneal dialysis 4. Peripheral vascular disease 5. Chronic conduction system disease, right bundle branch block, left anterior fascicular block Patient seen and examined but very poor historian. Outpatient and recent records reviewed Patient cared for at home by ex- and son Noted generalized malaise times several weeks but presented yesterday with symptoms of palpitations and increasing shortness of breath Diagnostic imaging revealed bilateral pulmonary emboli EKG reveals atrial fibrillation with rapid ventricular rate with underlying conduction abnormalities Mild hypotension on presentation Currently denies sense of palpitations chest pains. Denies dyspnea, on room air Notes no fevers or chills unaware of any acute gain and weight Has peritoneal dialysis done daily but notes is aided by family members Patient very vague all history Allergies Allergy/AdvReac Type Severity Reaction Status Date / Time No Known Allergies Allergy Verified 10/13/23 00:50 Home Medications Medication Instructions Recorded Confirmed Type carvedilol 12.5 mg tablet 12.5 mg PO BID 05/02/23 10/13/23 History vitamin B complex-vitamin C-folic 1 tab PO QAM 05/02/23 10/13/23 History acid 0.8 mg tablet (Nephro-Igor) docusate sodium 100 mg capsule 100 mg PO DAILY 10/13/23 10/13/23 History (Stool Softener) Patient History Medical History Renal cyst 3.9 cm cystic lesion-L Paroxysmal A-fib listed in [facility] records CAD (coronary artery disease) PVD (peripheral vascular disease) Dysphagia Anemia Pulmonary nodule MGUS (monoclonal gammopathy of unknown significance) follows with [facility] heme/onc LBBB (left bundle branch block) Hearing deficit Hyperkalemia Prostate cancer s/p prostatectomy Tobacco use Quit 03/2023 HTN (hypertension) HLD (hyperlipidemia) CKD (chronic kidney disease), stage V Surgical History History of appendectomy History of tooth extraction all teeth removed History of bilateral cataract extraction History of prostatectomy Family History Father Diabetes Other No family history of adverse response to anesthesia Social History Smoking Status: Former smoker Tobacco Type: Cigars Smoking End Date: January 2023; Second Hand Exposure: No; Do You Dip or Chew Tobacco: No; Tobacco Cessation Education Requested by Patient: No Hx Alcohol Use: Yes Alcohol type: hard liquor Hx Substance Use: No Preferred Language: Tongan Communication Ability: Effective Dental Aide Required: No Beliefs That Will Affect Care: None Current Living Situation: Alone Current Living Situation Comment: Patient lives alone but ex- and son check on him daily and assist pt Other Information That Helps Us Care for You: No Feels Safe at Home: Yes Safety Concerns: Feels Safe At This Time Assistive Devices: Hearing Aid - Bilateral and Walker Review of Systems Review of Systems: Unobtainable due to cognitive status Physical Exam Constitutional: well developed; no acute distress Eyes: PERRL, conjunctivae normal, anicteric sclerae ENMT: external ear and nose normal, oropharynx normal Neck: trachea midline, no thyromegaly Respiratory: Auscultation: + diminished lung sounds Cardiovascular: Rate/Rhythm: + tachycardic and + irregularly irregular Heart Sounds: normal S1 and normal S2 Vessels: no JVD Extremities: no edema Gastrointestinal (Abdomen): Peritoneal dialysis catheter in place. No surrounding erythema mild abdominal distention as expect Musculoskeletal: no cyanosis or clubbing, extremities motor strength 5/5 Results & Data Vital Signs (Past 12 Hours) Vital Signs Temp Pulse Pulse Resp BP BP Pulse Ox 10/13/23 06:28 36.3 C L 139 H 20 110/78 97 10/13/23 05:26 155 H 120/85 10/13/23 05:15 155 H 16 119/89 93 10/13/23 04:15 156 H 10/13/23 03:15 156 H 20 116/84 92 10/13/23 02:45 150 H 25 H 122/95 91 10/13/23 02:15 159 H 19 122/87 94 10/13/23 02:00 167 H 20 97/76 L 94 10/13/23 01:45 160 H 25 H 109/89 93 10/13/23 01:30 159 H 19 114/86 93 10/13/23 01:15 160 H 16 107/82 94 10/13/23 01:00 161 H 16 114/89 93 10/13/23 00:45 163 H 14 109/85 95 10/13/23 00:31 164 H 20 118/83 95 10/13/23 00:15 163 H 25 H 116/88 94 10/13/23 00:12 163 H 22 96 10/13/23 00:12 164 H 10/13/23 00:09 163 H 20 114/78 93 10/13/23 00:02 179 H 17 95/77 L 94 10/13/23 00:00 179 H 17 97/74 L 96 10/12/23 23:51 36.7 C 165 H 22 124/80 95 10/12/23 23:51 95 O2 Del Method 10/13/23 06:28 Room Air 10/13/23 05:26 10/13/23 05:15 Room Air 10/13/23 04:15 10/13/23 03:15 Room Air 10/13/23 02:45 Room Air 10/13/23 02:15 Room Air 10/13/23 02:00 Room Air 10/13/23 01:45 Room Air 10/13/23 01:30 Room Air 10/13/23 01:15 Room Air 10/13/23 01:00 Room Air 10/13/23 00:45 10/13/23 00:31 Room Air 10/13/23 00:15 Room Air 10/13/23 00:12 Room Air 10/13/23 00:12 10/13/23 00:09 Room Air 10/13/23 00:02 Room Air 10/13/23 00:00 Room Air 10/12/23 23:51 Room Air 10/12/23 23:51 Room Air Laboratory Results Laboratory Results - last 24 hr 10/13/23 10/13/23 10/13/23 00:00 00:06 01:23 WBC 10.81 H RBC 5.05 Hgb 15.4 POC Hgb 16.0 Hct 46.0 POC Hct 47 MCV 91.1 MCH 30.5 MCHC 33.5 RDW Std Deviation 55.0 H RDW Coeff of Maureen 16.6 H Plt Count 305 MPV 11.0 Immature Gran % (Auto) 0.6 Neut % (Auto) 72.4 Lymph % (Auto) 10.4 [place] % (Auto) 9.3 Eos % (Auto) 6.3 Baso % (Auto) 1.0 Neut # (Auto) 7.83 H Lymph # (Auto) 1.12 L [place] # (Auto) 1.01 H Eos # (Auto) 0.68 H Baso # (Auto) 0.11 Immature Gran # (Auto) 0.06 PT 10.9 INR 1.0 D-Dimer 4150 H* POC Sodium 134 L Sodium 135 L POC Potassium 4.5 Potassium 4.5 POC Chloride 97 L Chloride 94 L Carbon Dioxide 28 POC Total CO2 26 Anion Gap 13 H POC Anion Gap 17.0 POC BUN 31 H BUN 33 H Creatinine 5.99 H* POC Creatinine 6.9 H* Est Cr Clr Drug Dosing 10.9 Est GFR ( Amer) 9.6 Est GFR (Non-Af Amer) 8.3 BUN/Creatinine Ratio 5.5 L Glucose 132 H POC Glucose (other) 130 H Calcium 9.4 POC Ioniz Calcium Edie 1.10 L Magnesium 1.8 Total Bilirubin 0.7 AST 27 ALT 29 Alkaline Phosphatase 85 Troponin I High Sens 23.2 H B-Natriuretic Peptide 348 H Total Protein 7.2 Albumin 3.7 Globulin 3.5 Albumin/Globulin Ratio 1.1 Urine Color Urine Appearance Urine pH Ur Specific Graham Urine Protein Urine Glucose (UA) Urine Ketones Urine Blood Urine Nitrite Urine Bilirubin Urine Urobilinogen Ur Leukocyte Esterase Urine WBC (Auto) Urine RBC (Auto) U Hyaline Cast (Auto) U Epithel Cells (Auto) Urine Bacteria (Auto) SARS-CoV-2 (PCR) Influenza Type A (PCR) Influenza Type B (PCR) RSV (RT-PCR) 10/13/23 10/13/23 10/13/23 01:56 04:40 05:00 WBC RBC Hgb POC Hgb Hct POC Hct MCV MCH MCHC RDW Std Deviation RDW Coeff of Maureen Plt Count MPV Immature Gran % (Auto) Neut % (Auto) Lymph % (Auto) [place] % (Auto) Eos % (Auto) Baso % (Auto) Neut # (Auto) Lymph # (Auto) [place] # (Auto) Eos # (Auto) Baso # (Auto) Immature Gran # (Auto) PT INR D-Dimer POC Sodium Sodium POC Potassium Potassium POC Chloride Chloride Carbon Dioxide POC Total CO2 Anion Gap POC Anion Gap POC BUN BUN Creatinine POC Creatinine Est Cr Clr Drug Dosing Est GFR ( Amer) Est GFR (Non-Af Amer) BUN/Creatinine Ratio Glucose POC Glucose (other) Calcium POC Ioniz Calcium Edie Magnesium Total Bilirubin AST ALT Alkaline Phosphatase Troponin I High Sens 31.7 H B-Natriuretic Peptide Total Protein Albumin Globulin Albumin/Globulin Ratio Urine Color Yellow Urine Appearance Clear Urine pH 8.5 H Ur Specific [place] 1.013 Urine Protein 2+ H Urine Glucose (UA) Negative Urine Ketones Negative Urine Blood Trace H Urine Nitrite Negative Urine Bilirubin Negative Urine Urobilinogen Negative Ur Leukocyte Esterase Negative Urine WBC (Auto) 0 Urine RBC (Auto) 0-4 U Hyaline Cast (Auto) 0 U Epithel Cells (Auto) 0-5 Urine Bacteria (Auto) Negative SARS-CoV-2 (PCR) NEGATIVE Influenza Type A (PCR) Negative Influenza Type B (PCR) Negative RSV (RT-PCR) Negative
[2023-10-13] MEDS: DOCUSATE SODIUM 100 MG CAP PO SCH (08:46)
--- NOTE | 2023-10-13 09:03 | XRay Report ---
XR chest 1V portable CLINICAL HISTORY: Dyspnea TECHNIQUE: Single frontal radiograph of the chest was obtained. Comparison: Comparison is made to chest radiograph 05/02/2023 FINDINGS: No lines and tubes are seen. Cardiomegaly is noted. The aortic arch is calcified. Prominence and ceph alization of the vasculature is seen. No evidence of pleural effusion or pneumothorax. IMPRESSION: Cardiomegaly and mild pulmonary edema. ACT 112: Negative or not required by law. Electronically signed by: Ajay Lipscomb M.D. 10/13/2023 9:02 AM
--- NOTE | 2023-10-13 10:54 | Nephrology Consultation ---
Date of Consultation October 13, 2023 Assessment & Plan (1) ESRD on peritoneal dialysis: Patient has been started on peritoneal dialysis recently. He was last dialyzed on Friday night volume status good electrolytes within normal range. -Will continue on the same PD prescription today -Please continue him on all of his outpatient medication (2) Bilateral pulmonary embolism: - Presently on heparin drip, shortness of breath better -As per primary History of Present Illness Reason for Consultation: ESRD on PD admitted with bilateral pulmonary embolism Attending Physician: Bird Pastrana MD History of Present Illness 78-year-old male with past medical history significant for peripheral vascular disease, hypertension, history of prostate cancer s/p surgery, end-stage renal disease on peritoneal dialysis comes in because of shortness of breath and palpitation and found to be have bilateral PE and right heart strain. Patient is on peritoneal dialysis, last dialyzed on Friday night. He has helped by his son and his ex- to set up the [facility]. On review, alert, comfortable with no shortness of breath, no pedal edema. Allergies Allergy/AdvReac Type Severity Reaction Status Date / Time No Known Allergies Allergy Verified 10/13/23 00:50 Home Medications Medication Instructions Recorded Confirmed Type carvedilol 12.5 mg tablet 12.5 mg PO BID 05/02/23 10/13/23 History vitamin B complex-vitamin C-folic 1 tab PO QAM 05/02/23 10/13/23 History acid 0.8 mg tablet (Nephro-Igor) docusate sodium 100 mg capsule 100 mg PO DAILY 10/13/23 10/13/23 History (Stool Softener) Patient History Medical History Renal cyst 3.9 cm cystic lesion-L Paroxysmal A-fib listed in [facility] records CAD (coronary artery disease) PVD (peripheral vascular disease) Dysphagia Anemia Pulmonary nodule MGUS (monoclonal gammopathy of unknown significance) follows with [facility] heme/onc LBBB (left bundle branch block) Hearing deficit Hyperkalemia Prostate cancer s/p prostatectomy Tobacco use Quit 03/2023 HTN (hypertension) HLD (hyperlipidemia) CKD (chronic kidney disease), stage V Surgical History History of appendectomy History of tooth extraction all teeth removed History of bilateral cataract extraction History of prostatectomy Family History Father Diabetes Other No family history of adverse response to anesthesia Social History Smoking Status: Former smoker Tobacco Type: Cigars Smoking End Date: January 2023; Second Hand Exposure: No; Do You Dip or Chew Tobacco: No; Tobacco Cessation Education Requested by Patient: No Hx Alcohol Use: Yes Alcohol type: hard liquor Hx Substance Use: No Preferred Language: Vietnamese Communication Ability: Effective Motion Pictures Cartoonist Required: No Beliefs That Will Affect Care: None Current Living Situation: Alone Current Living Situation Comment: Patient lives alone but ex- and son check on him daily and assist pt Other Information That Helps Us Care for You: No Feels Safe at Home: Yes Safety Concerns: Feels Safe At This Time Assistive Devices: Hearing Aid - Bilateral and Walker Review of Systems 2 Review of Systems: All systems reviewed & are unremarkable except as noted in HPI & below Physical Exam 2 Physical Exam: General- Not in distress Neck- supple, no JVD. Lungs- clear to auscultation, no wheezing or crackles. Heart- regular rhythm; Tachycardia, no murmur, no gallop. Abdomen- normal bowel sounds, soft, nontender, no distension. PD cath site no erythema seen. Extremities- no pretibial edema, no erythema Neuro- alert,and oriented., hard of hearing. Results & Data Vital Signs (Past 12 Hours) Vital Signs Temp Pulse Pulse Resp BP BP Pulse Ox 10/13/23 07:46 36.9 C 145 H 19 114/80 92 10/13/23 07:31 144 H 10/13/23 06:28 36.3 C L 139 H 20 110/78 97 10/13/23 05:26 155 H 120/85 10/13/23 05:15 155 H 16 119/89 93 10/13/23 04:15 156 H 10/13/23 03:15 156 H 20 116/84 92 10/13/23 02:45 150 H 25 H 122/95 91 10/13/23 02:15 159 H 19 122/87 94 10/13/23 02:00 167 H 20 97/76 L 94 10/13/23 01:45 160 H 25 H 109/89 93 10/13/23 01:30 159 H 19 114/86 93 10/13/23 01:15 160 H 16 107/82 94 10/13/23 01:00 161 H 16 114/89 93 10/13/23 00:45 163 H 14 109/85 95 10/13/23 00:31 164 H 20 118/83 95 10/13/23 00:15 163 H 25 H 116/88 94 10/13/23 00:12 163 H 22 96 10/13/23 00:12 164 H 10/13/23 00:09 163 H 20 114/78 93 10/13/23 00:02 179 H 17 95/77 L 94 10/13/23 00:00 179 H 17 97/74 L 96 10/12/23 23:51 36.7 C 165 H 22 124/80 95 10/12/23 23:51 95 O2 Del Method 10/13/23 07:46 Room Air 10/13/23 07:31 10/13/23 06:28 Room Air 10/13/23 05:26 10/13/23 05:15 Room Air 10/13/23 04:15 10/13/23 03:15 Room Air 10/13/23 02:45 Room Air 10/13/23 02:15 Room Air 10/13/23 02:00 Room Air 10/13/23 01:45 Room Air 10/13/23 01:30 Room Air 10/13/23 01:15 Room Air 10/13/23 01:00 Room Air 10/13/23 00:45 10/13/23 00:31 Room Air 10/13/23 00:15 Room Air 10/13/23 00:12 Room Air 10/13/23 00:12 10/13/23 00:09 Room Air 10/13/23 00:02 Room Air 10/13/23 00:00 Room Air 10/12/23 23:51 Room Air 10/12/23 23:51 Room Air Laboratory Results 10/13/23 00:00 10/13/23 00:00
[2023-10-13 11:00] LABS: Basophils # (auto) 0.12 K/uL (0.00-0.20); Eosinophils % (auto) 4.1 %; Hematocrit (blood only) 38.6 % (42.0-52.0); Hemoglobin 13.3 g/dl (14.0-18.0); Immature Granulocytes # (auto) 0.06 K/uL (0.01-0.20); Immature Granulocytes % (auto) 0.5 %; Lymphocytes # (auto) 1.27 K/uL (1.20-3.40); Lymphocytes % (auto) 10.3 %; Mean Corpuscular Hemoglobin 30.5 pg (25.0-34.0); Mean Corpuscular Hgb Conc 34.5 g/dL (32.0-36.0); Mean Corpuscular Volume 88.5 fL (80.0-100.0); Mean Platelet Volume 10.7 fL (9.4-12.4); Monocytes # (auto) 1.39 K/uL (0.11-0.59); Monocytes % (auto) 11.3 %; Neutrophils # (auto) 8.96 K/uL (1.40-6.50); Neutrophils % (auto) 72.8 %; Platelet Count 259 K/uL (130-400); RDW Coefficient of Variation 16.5 % (11.5-14.5); RDW Standard Deviation 53.4 fL (36.4-46.3); Red Blood Count 4.36 M/uL (4.70-6.10)
[2023-10-13 11:21] LABS: BUN Creatinine Ratio 5.8 (10-20); Calcium 8.3 mg/dl (8.6-10.3); Creatinine Clr Calc Pharmacy 10.4 ml/min; Est GFR (African American) 9.2 ml/min; Est GFR (Non-African American) 7.9 ml/min; Magnesium 1.7 mg/dl (1.7-2.4); Potassium 4.6 mmol/L (3.5-5.1)
[2023-10-13 11:28] LABS: ANTI-Xa, UFH(UnfractionatedHep 0.71 IU/ml (0.3-0.7)
[2023-10-13 11:34] LABS: Troponin I High Sensitivity 127.7 pg/ml (0-20)
[2023-10-13] MEDS ORDERED: dilTIAZem HCl 5 MG/ML 5 ML VIAL IV STA ×2 (15:41→16:30)
[2023-10-13] MEDS ORDERED: STAT IV Infusion **Titration per Protocol STA (16:30)
[2023-10-13] MEDS ORDERED: dilTIAZem HCL 125 MG in DEXTROSE 5% 100 ML IV SCH (16:45)
[2023-10-13 18:46] LABS: ANTI-Xa, UFH(UnfractionatedHep 0.64 IU/ml (0.3-0.7)
[2023-10-14 04:24] LABS: Hematocrit (blood only) 34.3 % (42.0-52.0); Hemoglobin 11.9 g/dl (14.0-18.0); Mean Corpuscular Hemoglobin 30.7 pg (25.0-34.0); Mean Corpuscular Hgb Conc 34.7 g/dL (32.0-36.0); Mean Corpuscular Volume 88.4 fL (80.0-100.0); Mean Platelet Volume 10.7 fL (9.4-12.4); Platelet Count 242 K/uL (130-400); RDW Coefficient of Variation 16.6 % (11.5-14.5); RDW Standard Deviation 53.2 fL (36.4-46.3); Red Blood Count 3.88 M/uL (4.70-6.10); White Blood Count 9.99 K/ul (4.8-10.8)
[2023-10-14 04:48] LABS: BUN Creatinine Ratio 5.9 (10-20); Calcium 8.1 mg/dl (8.6-10.3); Creatinine Clr Calc Pharmacy 11.6 ml/min; Est GFR (African American) 10.5 ml/min; Est GFR (Non-African American) 9.1 ml/min; Magnesium 1.6 mg/dl (1.7-2.4); Phosphorus 3.9 mg/dl (2.5-4.9); Potassium 3.8 mmol/L (3.5-5.1)
--- NOTE | 2023-10-14 07:35 | Hospitalist Progress Note ---
Date of Service October 14, 2023 Assessment & Plan (1) Bilateral pulmonary embolism: Plan: 78-year-old male with past medical history significant for peripheral vascular disease, hypertension, history of prostate cancer s/p surgery, end-stage renal disease on peritoneal dialysis comes in because of shortness of breath and palpitation and found to be have bilateral PE and poss. right heart strain. Bilateral pulm embolism Possible right heart strain - per cardiology - no R heart strain Mild elevation troponin Started on IV heparin -> plan to start coumadin cardiac enzymes checked, echo obtained, and cardiology consulted Echo -rhythm is atrial fibrillation with rapid ventricular response. The study was technically difficult. LV cavity appears small and underfilled. LV is hyperdynamic. EF 70%. Asymmetric LV hypertrophy involving the septum with maximal thickness of 2 cm. No significant LV outflow tract gradient at rest. There is mild tricuspid regurg. Doppler findings do not suggest pulmonary hypertension. Close monitoring telemetry Tachycardia Wide-complex tachycardia History of 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 Initially his blood pressure was soft but that improved Seems poor oral intake since last 2 weeks Received gentle fluid bolus and dose of Lopressor IV Lopressor as needed Continued home Coreg initially -> switched to metoprolol, cardizem gtt for short period of time -> now pt in sinus Telemetry floor Close monitor Cardiology consulted and following closely - now on metoprolol succinate Hypertension Ex- states he is currently taking Coreg 6.25 twice daily -> changed as above Will monitor End-stage renal disease On peritoneal dialysis History of prostate cancer S/p surgery DVT prophylaxis IV heparin Disposition Telemetry floor Full code Admission and Anticipated Discharge Date Admission Date: October 13, 2023 Subjective Pt seen in follow up of PE, tachycardia, afib w/ RVR, hx of ESRD on PD Yesterday pt tachycardic, difficult to control on metoprolol alone and cardizem drip was started in the afternoon. Now off cardizem and converted to sinus. Pt is laying in bed in NAD. Reports breathing is much improved. No chest pain,no abd. pain. Pt's son present at the bedside and updated. Review of Systems Review of Systems: All systems reviewed & are unremarkable except as noted in Subjective Physical Exam Physical Exam: General- WD/WN M in NAD Head- atraumatic Eyes- PERRL. ENT- oropharynx clear Neck- supple, no JVD. Lungs- clear to auscultation, no wheezing or crackles. Heart- rrr, no murmur, no gallop. Abdomen- normal bowel sounds, soft, nontender, no distension. PD cath site no erythema seen. Extremities- no pretibial edema, no erythema, moves extremities Neuro- alert,and oriented., hard of hearing. ; PERRL, no facial palsy; no dysarthria; moves extremities. Skin- warm & dry Results & Data Results & Data Vital Signs (Past 12 Hours) Vital Signs Temp Pulse Pulse Resp BP Pulse Ox O2 Del Method 10/14/23 04:22 36.4 C L 63 20 129/72 91 Room Air 10/14/23 01:00 36.6 C 63 20 128/72 92 Room Air 10/13/23 21:41 36.6 C 65 20 140/75 93 Room Air 10/13/23 21:00 Room Air 10/13/23 20:23 63 137/82 Laboratory Results 10/14/23 10/13/23 10/13/23 Range/Units 03:57 18:02 12:38 WBC 9.99 (4.8-10.8) K/ul RBC 3.88 L (4.70-6.10) M/uL Hgb 11.9 L (14.0-18.0) g/dl Hct 34.3 L (42.0-52.0) % MCV 88.4 (80.0-100.0) fL MCH 30.7 (25.0-34.0) pg MCHC 34.7 (32.0-36.0) g/dL RDW Std Deviation 53.2 H (36.4-46.3) fL RDW Coeff of Maureen 16.6 H (11.5-14.5) % Plt Count 242 (130-400) K/uL MPV 10.7 (9.4-12.4) fL Immature Gran % (Auto) % Neut % (Auto) % Lymph % (Auto) % [place] % (Auto) % Eos % (Auto) % Baso % (Auto) % Neut # (Auto) (1.40-6.50) K/uL Lymph # (Auto) (1.20-3.40) K/uL [place] # (Auto) (0.11-0.59) K/uL Eos # (Auto) (0.00-0.50) K/uL Baso # (Auto) (0.00-0.20) K/uL Immature Gran # (Auto) (0.01-0.20) K/uL Heparin Anti-Xa, Unfract 0.50 0.64 (0.3-0.7) IU/ml Sodium 134 L (136-145) mmol/L Potassium 3.8 (3.5-5.1) mmol/L Chloride 98 (98-107) mmol/L Carbon Dioxide 26 (21-32) mmol/L Anion Gap 10 (3-11) BUN 33 H (6-23) mg/dl Creatinine 5.57 H* D (0.6-1.4) mg/dl Est Cr Clr Drug Dosing 11.6 ml/min Est GFR ( Amer) 10.5 ml/min Est GFR (Non-Af Amer) 9.1 ml/min BUN/Creatinine Ratio 5.9 L (10-20) Glucose 148 H (70-99(Fasting)) mg/dl Calcium 8.1 L (8.6-10.3) mg/dl Phosphorus 3.9 (2.5-4.9) mg/dl Magnesium 1.6 L (1.7-2.4) mg/dl Troponin I High Sens 151.4 H* 136.0 H* (0-20) pg/ml // Range/Units 10:41 WBC 12.30 H (4.8-10.8) K/ul RBC 4.36 L (4.70-6.10) M/uL Hgb 13.3 L (14.0-18.0) g/dl Hct 38.6 L (42.0-52.0) % MCV 88.5 (80.0-100.0) fL MCH 30.5 (25.0-34.0) pg MCHC 34.5 (32.0-36.0) g/dL RDW Std Deviation 53.4 H (36.4-46.3) fL RDW Coeff of Maureen 16.5 H (11.5-14.5) % Plt Count 259 (130-400) K/uL MPV 10.7 (9.4-12.4) fL Immature Gran % (Auto) 0.5 % Neut % (Auto) 72.8 % Lymph % (Auto) 10.3 % [place] % (Auto) 11.3 % Eos % (Auto) 4.1 % Baso % (Auto) 1.0 % Neut # (Auto) 8.96 H (1.40-6.50) K/uL Lymph # (Auto) 1.27 (1.20-3.40) K/uL [place] # (Auto) 1.39 H (0.11-0.59) K/uL Eos # (Auto) 0.50 (0.00-0.50) K/uL Baso # (Auto) 0.12 (0.00-0.20) K/uL Immature Gran # (Auto) 0.06 (0.01-0.20) K/uL Heparin Anti-Xa, Unfract 0.71 H* (0.3-0.7) IU/ml Sodium 132 L (136-145) mmol/L Potassium 4.6 (3.5-5.1) mmol/L Chloride 97 L (98-107) mmol/L Carbon Dioxide 26 (21-32) mmol/L Anion Gap 9 (3-11) BUN 36 H (6-23) mg/dl Creatinine 6.21 H* (0.6-1.4) mg/dl Est Cr Clr Drug Dosing 10.4 ml/min Est GFR ( Amer) 9.2 ml/min Est GFR (Non-Af Amer) 7.9 ml/min BUN/Creatinine Ratio 5.8 L (10-20) Glucose 131 H (70-99(Fasting)) mg/dl Calcium 8.3 L (8.6-10.3) mg/dl Phosphorus (2.5-4.9) mg/dl Magnesium 1.7 (1.7-2.4) mg/dl Troponin I High Sens 127.7 H* D (0-20) pg/ml Medications Administered Current Inpatient Medications Acetaminophen (Acetaminophen 325 Mg Tab) 650 mg PO Q4H PRN PRN Reason: Pain or Fever Stop: 11/12/23 06:26 Docusate Sodium (Docusate Sodium 100 Mg Cap) 100 mg PO DAILY [facility] Stop: 11/12/23 08:59 Last Admin: 10/13/23 08:46 Dose: Not Given Heparin Sodium/Dextrose (Heparin Sodium/Dextrose) 25,000 units in 500 mls @ 26 mls/hr IV .[id number] [facility]; Protocol Stop: 11/12/23 04:14 Last Titration: 10/14/23 07:18 Dose: 1,300 units/hr, 26 mls/hr Diltiazem HCl 125 mg/ Dextrose 125 mls @ 0 mls/hr IV .Q0M [facility]; Protocol Stop: 11/12/23 16:44 Last Titration: 10/14/23 02:01 Dose: 0 mg/hr, 0 mls/hr Metoprolol Tartrate (Metoprolol Tartrate 1 Mg/Ml Vial) 5 mg IV Q6 PRN PRN Reason: Tachycardia Stop: 11/12/23 06:26 Metoprolol Tartrate (Metoprolol Tartrate 25 Mg Tab) 25 mg PO QID [facility] Stop: 11/12/23 08:59 Last Admin: 10/13/23 22:08 Dose: 25 mg Nitroglycerin (Nitroglycerin Sl 0.4 Mg/Tab Tab) 0.4 mg SL Q5M PRN PRN Reason: Chest Pain Stop: 11/12/23 06:26 Polyethylene Glycol (Polyethylene (Miralax) 17 Gm Pack) 17 gm PO DAILY PRN PRN Reason: Constipation Stop: 11/12/23 06:26 Vitamin B Complex/Folic Acid (Nephrocaps) 1 cap PO QAM [facility] Stop: 11/12/23 08:59 Last Admin: 10/13/23 08:41 Dose: 1 cap
[2023-10-14] MEDS: NEPHROCAPS PO SCH (08:55)
[2023-10-14] MEDS: DOCUSATE SODIUM 100 MG CAP PO SCH (08:55)
[2023-10-14] MEDS: METOPROLOL TARTRATE 25 MG TAB PO SCH ×2 (08:55→13:01)
--- NOTE | 2023-10-14 12:01 | Electrocardiogram Report ---
Test Reason : Blood Pressure : / mmHG Vent. Rate : 096 BPM Atrial Rate : 071 BPM P-R Int : 232 ms QRS Dur : 146 ms QT Int : 516 ms P-R-T Axes : 063 -48 011 degrees QTc Int : 651 ms Sinus rhythm with 1st degree A-V block with Premature supraventricular complexes and Fusion complexes Right bundle branch block Left anterior fascicular block Bifascicular block Abnormal ECG When compared with ECG of 12-OCT-2023 23:51, Sinus rhythm has replaced Atrial fibrillation Vent. rate has decreased BY 68 BPM Left anterior fascicular block is now Present Confirmed by Dominic May ([id number] on 10/14/2023 12:00:42 PM Referred By: REFERRED SELF Confirmed By:Mike May
--- NOTE | 2023-10-14 12:59 | Nephrology Progress Note ---
Date of Service October 14, 2023 Assessment & Plan (1) ESRD on peritoneal dialysis: Plan: Patient has been started on peritoneal dialysis recently. He was last dialyzed on Friday night volume status good electrolytes within normal range. - He was @500 mls positive after CCPD Yesterday, will go for all 2.5 % today - BP and electrolyte wnl -Please continue him on all of his outpatient medication (2) Bilateral pulmonary embolism: Plan: - Presently on heparin drip,no shortness of breath HR better -As per primary Admission and Anticipated Discharge Date Admission Date: October 13, 2023 Subjective Pt seen in follow up of PE, tachycardia, afib w/ RVR, hx of ESRD on PD Review of Systems 2 Review of Systems: All systems reviewed & are unremarkable except as noted in HPI & below Physical Exam 2 Physical Exam: General- Not in distress Neck- supple, no JVD. Lungs- clear to auscultation, no wheezing or crackles. Heart- regular rhythm; Tachycardia, no murmur, no gallop. Abdomen- normal bowel sounds, soft, nontender, no distension. PD cath site no erythema seen. Extremities- no pretibial edema, no erythema Neuro- alert,and oriented., hard of hearing. Results & Data Vital Signs (Past 12 Hours) Vital Signs Temp Pulse Pulse Resp BP Pulse Ox O2 Del Method 10/14/23 10:30 Room Air 10/14/23 10:29 36.3 C L 61 19 131/78 91 Room Air 10/14/23 07:40 36.6 C 65 20 10/14/23 07:15 36.4 C L 67 19 144/77 H 95 Room Air 10/14/23 07:00 65 10/14/23 04:22 36.4 C L 63 20 129/72 91 Room Air 10/14/23 01:00 36.6 C 63 20 128/72 92 Room Air Laboratory Results 10/14/23 03:57 10/14/23 03:57
--- NOTE | 2023-10-14 15:58 | Cardiology Progress Note ---
Date of Service October 14, 2023 Assessment & Plan (1) Bilateral pulmonary embolism: (2) Atrial flutter, paroxysmal: (3) Hypertrophic cardiomyopathy: (4) ESRD on peritoneal dialysis: Plan Transition IV anticoagulation to Coumadin as per hospitalist for treatment of acute pulmonary emboli. No evidence of right ventricular strain per echocardiogram. ECG and telemetry reviewed. Atrial flutter with 2-1 conduction suspected in setting of acute pulmonary embolus. Discontinue metoprolol tartrate 25 mg 4 times daily in favor of Toprol-XL 50 mg twice daily. Results of echocardiogram suggesting asymmetric left ventricular hypertrophy/hypertrophic cardiomyopathy discussed with both the patient and his son. No significant LVOT gradient per echocardiogram. Recommend outpatient cardiac MRI and genetic testing. Continue beta-katerina therapy. Screening of first-degree relatives recommended. Discussed with son at bedside. Admission and Anticipated Discharge Date Admission Date: October 13, 2023 Subjective Patient seen examined the bedside. Poor historian. Son present as well with multiple questions regarding health concerns. Patient denies chest pain or 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 Converted to sinus rhythm at approximately 5 PM yesterday. Currently sinus rhythm in the 60s. IV diltiazem discontinued. Review of Systems Review of Systems: All systems reviewed & are unremarkable except as noted in Subjective Physical Exam Constitutional: well developed and well nourished; no acute distress Respiratory: no respiratory distress, no labored breathing and no retractions Auscultation: no crackles, no rales, no rhonchi and no wheezes Cardiovascular: Rate/Rhythm: regular rate and regular rhythm Heart Sounds: normal S1, normal S2 and + murmur (soft, 1/6 systolic ejection murmur heard best at the right second intercost) Vessels: radial pulses present; no JVD Extremities: no edema Gastrointestinal (Abdomen): Inspection/Auscultation: normal bowel sounds; abdomen not distended Percussion/Palpation: abdomen soft; abdomen nontender, no guarding and abdomen not rigid Neurologic: CN's II-XI intact bilaterally and moves all extremities; no focal motor deficits Results & Data Vital Signs (Past 12 Hours) Vital Signs Temp Pulse Pulse Resp BP Pulse Ox O2 Del Method 10/14/23 10:30 Room Air 10/14/23 10:29 36.3 C L 61 19 131/78 91 Room Air 10/14/23 07:40 36.6 C 65 20 10/14/23 07:15 36.4 C L 67 19 144/77 H 95 Room Air 10/14/23 07:00 65 10/14/23 04:22 36.4 C L 63 20 129/72 91 Room Air Laboratory Results Cardiac Enzymes 10/13/23 Range/Units 18:02 Troponin I High Sens 151.4 H* (0-20) pg/ml CBC 10/14/23 Range/Units 03:57 WBC 9.99 (4.8-10.8) K/ul RBC 3.88 L (4.70-6.10) M/uL Hgb 11.9 L (14.0-18.0) g/dl Hct 34.3 L (42.0-52.0) % Plt Count 242 (130-400) K/uL Comprehensive Metabolic Panel 10/14/23 Range/Units 03:57 Sodium 134 L (136-145) mmol/L Potassium 3.8 (3.5-5.1) mmol/L Chloride 98 (98-107) mmol/L Carbon Dioxide 26 (21-32) mmol/L BUN 33 H (6-23) mg/dl Creatinine 5.57 H* D (0.6-1.4) mg/dl Glucose 148 H (70-99(Fasting)) mg/dl Calcium 8.1 L (8.6-10.3) mg/dl Intake and Output 10/14/23 10/14/23 10/14/23 06:59 14:59 22:59 Intake Total 406.783 / 1637.183 51.567 / 51.567 Output Total 300 / 750 200 / 200 Balance 106.783 / 887.183 -148.433 / -148.433 Intake: IV 306.783 / 1187.183 51.567 / 51.567 Heparin Sodium/Dextrose 25,000 260.866 / 641.266 51.567 / 51.567 units In 500 ml @ 1,300 UNITS/ HR 26 mls/hr IV .[id number] [facility] Rx #:[id number] dilTIAZem HCL 125 mg In 45.917 / 45.917 0 / 0 Dextrose 5% 100 ml @ 0 MG/HR IV .Q0M [facility] Rx#:[id number] Oral 100 / 450 Output: Urine 300 / 750 200 / 200 Peritoneal Dialysis 0 / 0 Ultrafiltration Amount Other: Weight 85.1 kg 85.1 kg Weight Measurement Method Built in [facility] Built in [facility] Patient Weight 10/15/23 06:59 Weight 85.1 kg
[2023-10-14] MEDS: HEPARIN SODIUM/DEXTROSE 25,000 UNITS/500 ML BAG IV SCH (17:38)
[2023-10-14 19:09] LABS: INR 1.1 (0.9-1.1); Prothrombin Time 11.6 Seconds (9.0-12.0)
[2023-10-14] MEDS ORDERED: WARFARIN SOD 5 MG TAB PO ONE (20:00)
[2023-10-14] MEDS: METOPROLOL SUCC 50MG EXT REL TAB PO SCH (20:01)
[2023-10-15] MEDS ORDERED: dilTIAZem HCl 5 MG/ML 5 ML VIAL IV STA ×2 (02:31→04:07)
[2023-10-15] MEDS ORDERED: STAT IV Infusion **Titration per Protocol STA (04:07)
[2023-10-15] MEDS ORDERED: dilTIAZem HCL 125 MG in DEXTROSE 5% 100 ML IV SCH (04:15)
[2023-10-15 04:44] LABS: Hematocrit (blood only) 37.3 % (42.0-52.0); Hemoglobin 12.6 g/dl (14.0-18.0); Mean Corpuscular Hemoglobin 30.4 pg (25.0-34.0); Mean Corpuscular Hgb Conc 33.8 g/dL (32.0-36.0); Mean Corpuscular Volume 89.9 fL (80.0-100.0); Mean Platelet Volume 10.5 fL (9.4-12.4); Platelet Count 273 K/uL (130-400); RDW Coefficient of Variation 16.1 % (11.5-14.5); RDW Standard Deviation 52.8 fL (36.4-46.3); Red Blood Count 4.15 M/uL (4.70-6.10); White Blood Count 9.45 K/ul (4.8-10.8)
[2023-10-15 05:04] LABS: BUN Creatinine Ratio 5.8 (10-20); Calcium 8.6 mg/dl (8.6-10.3); Creatinine Clr Calc Pharmacy 11.6 ml/min; Est GFR (African American) 10.3 ml/min; Est GFR (Non-African American) 8.9 ml/min; Magnesium 1.6 mg/dl (1.7-2.4); Potassium 3.4 mmol/L (3.5-5.1)
[2023-10-15 05:20] LABS: ANTI-Xa, UFH(UnfractionatedHep 0.46 IU/ml (0.3-0.7); Prothrombin Time 11.2 Seconds (9.0-12.0)
[2023-10-15] MEDS ORDERED: MAGNESIUM SULFATE / D5W 1 GM/100 ML BAG IV ONE (06:38)
[2023-10-15] MEDS: METOPROLOL SUCC 50MG EXT REL TAB PO SCH ×2 (08:37→20:23)
[2023-10-15] MEDS: NEPHROCAPS PO SCH (08:38)
[2023-10-15] MEDS: DOCUSATE SODIUM 100 MG CAP PO SCH (08:38)
[2023-10-15] MEDS ORDERED: POTASSIUM CHLORIDE CRTAB 20 MEQ TABCR PO STA (09:59)
--- NOTE | 2023-10-15 10:04 | Hospitalist Progress Note ---
Date of Service October 15, 2023 Assessment & Plan (1) Bilateral pulmonary embolism: Plan: 78-year-old male with past medical history significant for peripheral vascular disease, hypertension, history of prostate cancer s/p surgery, end-stage renal disease on peritoneal dialysis comes in because of shortness of breath and palpitation and found to be have bilateral PE and poss. right heart strain. Bilateral pulm embolism Possible right heart strain - per cardiology - no R heart strain Mild elevation troponin Started on IV heparin -> plan to start coumadin cardiac enzymes checked, echo obtained, and cardiology consulted Echo -rhythm is atrial fibrillation with rapid ventricular response. The study was technically difficult. LV cavity appears small and underfilled. LV is hyperdynamic. EF 70%. Asymmetric LV hypertrophy involving the septum with maximal thickness of 2 cm. No significant LV outflow tract gradient at rest. There is mild tricuspid regurg. Doppler findings do not suggest pulmonary hypertension. Close monitoring telemetry Tachycardia Wide-complex tachycardia History of 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 afib/aflutter w/ RVR Initially his blood pressure was soft but that improved Seems poor oral intake since last 2 weeks Received gentle fluid bolus and dose of Lopressor IV Lopressor as needed Continued home Coreg initially -> switched to metoprolol, cardizem gtt for short period of time -> pt converted to sinus (10/14) Telemetry floor Close monitor Cardiology consulted and following closely - started metoprolol succinate, starting coumadin (10/14) 10/15 early AM pt in aflutter w/ RVR and required iv cardizem Cardiology following closely - added amiodarone (10/15/23) Hypertension Ex- states he is currently taking Coreg 6.25 twice daily -> changed as above Will monitor End-stage renal disease On peritoneal dialysis History of prostate cancer S/p surgery DVT prophylaxis IV heparin Disposition Telemetry floor Full code Admission and Anticipated Discharge Date Admission Date: October 13, 2023 Subjective Pt seen in follow up of PE, tachycardia, afib w/ RVR, hx of ESRD on PD Sitting up in chair, in NAD. No chest pain, shortness of breath, overall feels improved. Started on coumadin yesterday, cont. to monitor INR Early AM pt in flutter w/ RVR, received IV cardizem. Cardiology following closely - started on amiodarone Review of Systems Review of Systems: All systems reviewed & are unremarkable except as noted in Subjective Physical Exam Physical Exam: General- WD/WN M in NAD Head- atraumatic Eyes- PERRL. ENT- oropharynx clear Neck- supple, no JVD. Lungs- clear to auscultation, no wheezing or crackles. Heart- rrr, no murmur, no gallop. Abdomen- normal bowel sounds, soft, nontender, no distension. PD cath site no erythema seen. Extremities- no pretibial edema, no erythema, moves extremities Neuro- alert,and oriented., hard of hearing. ; PERRL, no facial palsy; no dysarthria; moves extremities. Skin- warm & dry Results & Data Results & Data Vital Signs (Past 12 Hours) Vital Signs Temp Pulse Pulse Pulse Resp BP BP 10/15/23 09:00 10/15/23 08:10 36.6 C 68 18 10/15/23 08:00 80 10/15/23 07:20 36.6 C 68 18 116/72 10/15/23 04:18 133 H 123/69 10/15/23 02:50 37.0 C 133 H 20 131/95 10/15/23 02:03 131 H 126/89 10/15/23 02:03 131 H 10/15/23 01:48 135 H 134/87 10/15/23 01:47 135 H 134/87 10/15/23 00:00 84 10/14/23 23:05 36.6 C 86 22 149/83 H Pulse Ox O2 Del Method 10/15/23 09:00 Room Air 10/15/23 08:10 10/15/23 08:00 10/15/23 07:20 91 Room Air 10/15/23 04:18 10/15/23 02:50 94 Room Air 10/15/23 02:03 10/15/23 02:03 10/15/23 01:48 10/15/23 01:47 10/15/23 00:00 10/14/23 23:05 92 Room Air Laboratory Results 10/15/23 10/14/23 Range/Units 04:22 18:22 WBC 9.45 (4.8-10.8) K/ul RBC 4.15 L (4.70-6.10) M/uL Hgb 12.6 L (14.0-18.0) g/dl Hct 37.3 L (42.0-52.0) % MCV 89.9 (80.0-100.0) fL MCH 30.4 (25.0-34.0) pg MCHC 33.8 (32.0-36.0) g/dL RDW Std Deviation 52.8 H (36.4-46.3) fL RDW Coeff of Maureen 16.1 H (11.5-14.5) % Plt Count 273 (130-400) K/uL MPV 10.5 (9.4-12.4) fL PT 11.2 11.6 (9.0-12.0) Seconds INR 1.0 1.1 (0.9-1.1) Heparin Anti-Xa, Unfract 0.46 (0.3-0.7) IU/ml Sodium 136 (136-145) mmol/L Potassium 3.4 L (3.5-5.1) mmol/L Chloride 99 (98-107) mmol/L Carbon Dioxide 26 (21-32) mmol/L Anion Gap 11 (3-11) BUN 33 H (6-23) mg/dl Creatinine 5.66 H* (0.6-1.4) mg/dl Est Cr Clr Drug Dosing 11.6 ml/min Est GFR ( Amer) 10.3 ml/min Est GFR (Non-Af Amer) 8.9 ml/min BUN/Creatinine Ratio 5.8 L (10-20) Glucose 138 H (70-99(Fasting)) mg/dl Calcium 8.6 (8.6-10.3) mg/dl Phosphorus 4.0 (2.5-4.9) mg/dl Magnesium 1.6 L (1.7-2.4) mg/dl Medications Administered Current Inpatient Medications Acetaminophen (Acetaminophen 325 Mg Tab) 650 mg PO Q4H PRN PRN Reason: Pain or Fever Stop: 11/12/23 06:26 Docusate Sodium (Docusate Sodium 100 Mg Cap) 100 mg PO DAILY [facility] Stop: 11/12/23 08:59 Last Admin: 10/15/23 08:38 Dose: Not Given Heparin Sodium/Dextrose (Heparin Sodium/Dextrose) 25,000 units in 500 mls @ 26 mls/hr IV .[id number] [facility]; Protocol Stop: 11/12/23 04:14 Last Titration: 10/15/23 07:13 Dose: 1,300 units/hr, 26 mls/hr Magnesium Oxide (Magnesium Oxide 400 Mg Tab) 400 mg PO QAM [facility] Stop: 11/14/23 09:59 Metoprolol Succinate (Metoprolol Succ 50mg Ext Rel Tab) 50 mg PO BID [facility] Stop: 11/13/23 20:59 Last Admin: 10/15/23 08:37 Dose: 50 mg Metoprolol Tartrate (Metoprolol Tartrate 1 Mg/Ml Vial) 5 mg IV Q6 PRN PRN Reason: Tachycardia Stop: 11/12/23 06:26 Last Admin: 10/15/23 01:48 Dose: 5 mg Nitroglycerin (Nitroglycerin Sl 0.4 Mg/Tab Tab) 0.4 mg SL Q5M PRN PRN Reason: Chest Pain Stop: 11/12/23 06:26 Polyethylene Glycol (Polyethylene (Miralax) 17 Gm Pack) 17 gm PO DAILY PRN PRN Reason: Constipation Stop: 11/12/23 06:26 Vitamin B Complex/Folic Acid (Nephrocaps) 1 cap PO QAM [facility] Stop: 11/12/23 08:59 Last Admin: 10/15/23 08:38 Dose: 1 cap Warfarin Sodium (Warfarin Sod 5 Mg Tab) 5 mg PO DAILY@1600 [facility] Stop: 11/14/23 15:59
[2023-10-15] MEDS: MAGNESIUM OXIDE 400 MG TAB PO SCH (10:59)
[2023-10-15] MEDS: HEPARIN SODIUM/DEXTROSE 25,000 UNITS/500 ML BAG IV SCH (13:37)
--- NOTE | 2023-10-15 13:48 | Cardiology Progress Note ---
Date of Service October 15, 2023 Assessment & Plan (1) Bilateral pulmonary embolism: (2) Atrial flutter, paroxysmal: (3) Hypertrophic cardiomyopathy: (4) ESRD on peritoneal dialysis: (5) Bifascicular block: Plan (1) Bilateral pulmonary embolism: -unprovoked. -check lower extremity venous duplex to rule out DVT for completeness -Continue heparin to coumadin. INR 1 today (2) Atrial flutter, paroxysmal: -Had another episode am of 10/15 lasting from 1:30 AM until 4:39 AM. Converted to sinus rhythm after receiving IV diltiazem. Patient states he felt poorly with the elevated heart rate. -Continue metoprolol succinate 50 mg twice daily -Add amiodarone 200 mg p.o. twice daily at least for short-term course with hopes that as pulmonary embolism situation improves, atrial arrhythmias will dissipate -Liver function test performed earlier this admission were within normal limits. TSH to be performed tomorrow given addition of amiodarone (3) Hypertrophic cardiomyopathy: -Echocardiogram this admission suggest asymmetric left ventricular hypertrophy without left ventricular outflow tract obstruction. Cardiac MRI and genetic testing to be considered as outpatient. Screening first-degree relatives recommended (4) ESRD on peritoneal dialysis: -Volume status appears stable (5) Bifascicular block: -Continue cautious treatment with metoprolol plus amiodarone given bifascicular block. Admission and Anticipated Discharge Date Admission Date: October 13, 2023 Subjective Patient seen in cardiology follow-up. Denies subjective complaint at present. In the air value tester hours this morning he had reverted back to atrial flutter with rapid ventricular response, ventricular rate 150 bpm from 1:30 AM with conversion to sinus rhythm at 4:39 AM after having received IV diltiazem. At present, diltiazem discontinued. Remains on IV heparin. Review of Systems Review of Systems: All systems reviewed & are unremarkable except as noted in HPI & below Physical Exam Constitutional: well developed and well nourished; no acute distress Eyes: PERRL, conjunctivae normal, anicteric sclerae ENMT: external ear and nose normal, oropharynx normal Neck: trachea midline, no thyromegaly Respiratory: no respiratory distress, no labored breathing and no retractions Auscultation: + diminished lung sounds; no crackles, no rales, no rhonchi and no wheezes Cardiovascular: Rate/Rhythm: regular rate, regular rhythm, + tachycardic and + irregularly irregular Heart Sounds: normal S1, normal S2 and + murmur (soft, 1/6 systolic ejection murmur heard best at the right second intercost) Vessels: radial pulses present; no JVD Extremities: no edema Gastrointestinal (Abdomen): Inspection/Auscultation: normal bowel sounds; abdomen not distended Percussion/Palpation: abdomen soft; abdomen nontender, no guarding and abdomen not rigid Musculoskeletal: no cyanosis or clubbing, extremities motor strength 5/5 Neurologic: CN's II-XI intact bilaterally and moves all extremities; no focal motor deficits Results & Data Vital Signs (Past 12 Hours) Vital Signs Temp Pulse Pulse Pulse Resp BP BP 10/15/23 11:08 36.3 C L 68 19 125/66 10/15/23 09:00 10/15/23 08:10 36.6 C 68 18 10/15/23 08:00 80 10/15/23 07:20 36.6 C 68 18 116/72 10/15/23 04:18 133 H 123/69 10/15/23 02:50 37.0 C 133 H 20 131/95 10/15/23 02:03 131 H 126/89 10/15/23 02:03 131 H 10/15/23 01:48 135 H 134/87 10/15/23 01:47 135 H 134/87 Pulse Ox O2 Del Method 10/15/23 11:08 92 Room Air 10/15/23 09:00 Room Air 10/15/23 08:10 10/15/23 08:00 10/15/23 07:20 91 Room Air 10/15/23 04:18 10/15/23 02:50 94 Room Air 10/15/23 02:03 10/15/23 02:03 10/15/23 01:48 10/15/23 01:47 Laboratory Results Coagulation 10/14/23 10/15/23 Range/Units 18:22 04:22 PT 11.6 11.2 (9.0-12.0) Seconds CBC 10/15/23 Range/Units 04:22 WBC 9.45 (4.8-10.8) K/ul RBC 4.15 L (4.70-6.10) M/uL Hgb 12.6 L (14.0-18.0) g/dl Hct 37.3 L (42.0-52.0) % Plt Count 273 (130-400) K/uL Comprehensive Metabolic Panel 10/15/23 Range/Units 04:22 Sodium 136 (136-145) mmol/L Potassium 3.4 L (3.5-5.1) mmol/L Chloride 99 (98-107) mmol/L Carbon Dioxide 26 (21-32) mmol/L BUN 33 H (6-23) mg/dl Creatinine 5.66 H* (0.6-1.4) mg/dl Glucose 138 H (70-99(Fasting)) mg/dl Calcium 8.6 (8.6-10.3) mg/dl Intake and Output 10/14/23 10/15/23 10/15/23 22:59 06:59 14:59 Intake Total 681.367 / 1009.768 276.834 / 1009.768 287.133 / 287.133 Output Total 151 / 1513 Balance 681.367 / 808.768 275.834 / 808.768 -1225.867 / -1225.867 Intake: IV 306.367 / 634.768 276.834 / 634.768 287.133 / 287.133 Heparin Sodium/Dextrose 25,000 306.367 / 633.101 275.167 / 633.101 187.133 / 187.133 units In 500 ml @ 1,300 UNITS/ HR 26 mls/hr IV .[id number] [facility] Rx #:[id number] Magnesium Sulfate / D5w 1 gm In 100 / 100 100 ml @ 50 mls/hr IV [facility] Rx#:[id number] dilTIAZem HCL 125 mg In 1.667 / 1.667 Dextrose 5% 100 ml @ 5 MG/HR 5 mls/hr IV .Q24H [facility] Rx#: [id number] Oral 375 / 375 Output: Peritoneal Dialysis 151 / 151 Ultrafiltration Amount # Bowel Movements Other: # Unmeasured Voids 0 1 Weight 85.1 kg 85.1 kg Weight Measurement Method Built in [facility] Patient Weight 10/16/23 06:59 Weight 85.1 kg
[2023-10-15] MEDS ORDERED: AMIODARONE 200 MG TAB PO ONE (14:00)
--- NOTE | 2023-10-15 15:16 | Ultrasound Report ---
ULTRASOUND BILATERAL LOWER EXTREMITY VENOUS CLINICAL HISTORY: Pulmonary embolus. COMPARISON STUDY: No priors. TECHNIQUE: Real-time, grayscale, and color Doppler sonography of the deep veins of the right and left lower extremity was performed from the inguinal crease to the calf. Compression and augmentation wer e utilized. FINDINGS: There is no sonographic evidence of deep venous thrombosis identified in the right or left lower extremity. The common femoral, superficial femoral, and popliteal veins are patent and normally compressible bilaterally. The greater saphenous vein and the profunda femoris vein at the junction w ith the common femoral vein are clear in both legs. The visualized calf veins are patent bilaterally. IMPRESSION: There is no sonographic evidence of deep venous thrombosis identified in the right or lef t lower extremity. ACT 112: Negative or not required by law. Electronically signed by: Prashant Joyce M.D. 10/15/2023 3:15 PM
--- NOTE | 2023-10-15 15:26 | Electrocardiogram Report ---
Test Reason : Blood Pressure : / mmHG Vent. Rate : 167 BPM Atrial Rate : 127 BPM P-R Int : 000 ms QRS Dur : 144 ms QT Int : 360 ms P-R-T Axes : 000 -75 015 degrees QTc Int : 600 ms Poor data quality, interpretation may be adversely affected Supraventricular tachycardia Left axis deviation Right bundle branch block Inferior infarct , age undetermined Abnormal ECG When compared with ECG of 14-OCT-2023 06:21, Supraventricular tachycardia has replaced sinus rhythm Vent. rate has increased BY 71 BPM Confirmed by Dominic May ([id number]) on 10/15/2023 3:25:55 PM Referred By: REFERRED SELF Confirmed By:Mike May
[2023-10-15] MEDS: AMIODARONE 200 MG TAB PO SCH (16:32)
[2023-10-15] MEDS: WARFARIN SOD 5 MG TAB PO SCH (16:32)
[2023-10-16 05:31] LABS: Hematocrit (blood only) 36.1 % (42.0-52.0); Hemoglobin 12.2 g/dl (14.0-18.0); Mean Corpuscular Hemoglobin 30.4 pg (25.0-34.0); Mean Corpuscular Hgb Conc 33.8 g/dL (32.0-36.0); Mean Platelet Volume 10.6 fL (9.4-12.4); Platelet Count 284 K/uL (130-400); RDW Standard Deviation 52.8 fL (36.4-46.3); Red Blood Count 4.01 M/uL (4.70-6.10); White Blood Count 8.18 K/ul (4.8-10.8)
[2023-10-16 05:33] LABS: BUN Creatinine Ratio 5.7 (10-20); Calcium 8.6 mg/dl (8.6-10.3); Est GFR (African American) 11.7 ml/min; Est GFR (Non-African American) 10.1 ml/min; Potassium 3.6 mmol/L (3.5-5.1)
[2023-10-16 05:51] LABS: Thyroid Stimulating Hormone 4.99 uIu/ml (0.300-4.500)
[2023-10-16 05:52] LABS: ANTI-Xa, UFH(UnfractionatedHep 0.49 IU/ml (0.3-0.7); INR 1.1 (0.9-1.1); Prothrombin Time 11.5 Seconds (9.0-12.0)
[2023-10-16 06:32] LABS: T4 Free Thyroxine 1.21 ng/dl (0.61-1.60)
[2023-10-16] MEDS: MAGNESIUM OXIDE 400 MG TAB PO SCH (08:28)
[2023-10-16] MEDS: NEPHROCAPS PO SCH (08:28)
[2023-10-16] MEDS: DOCUSATE SODIUM 100 MG CAP PO SCH (08:28)
[2023-10-16] MEDS: METOPROLOL SUCC 50MG EXT REL TAB PO SCH ×2 (08:29→20:48)
[2023-10-16] MEDS: AMIODARONE 200 MG TAB PO SCH ×2 (08:29→16:19)
[2023-10-16] MEDS: HEPARIN SODIUM/DEXTROSE 25,000 UNITS/500 ML BAG IV SCH (10:56)
--- NOTE | 2023-10-16 12:05 | Nephrology Progress Note ---
Date of Service October 16, 2023 Assessment & Plan (1) ESRD on peritoneal dialysis: Plan: Patient has been started on peritoneal dialysis recently. He was last dialyzed on Friday night volume status good electrolytes within normal range. - He hada UF of about 400 mls. will continue for all 2.5 % today - BP and electrolyte wnl -Please continue him on all of his outpatient medication (2) Bilateral pulmonary embolism: Plan: - Presently on heparin drip,no shortness of breath HR better -Continue anticoagulation Admission and Anticipated Discharge Date Admission Date: October 13, 2023 Subjective Seen for ESRD on PD. Patient was seen and examined while on PD. Tolerated PD well with negative of about 100 ml Review of Systems 2 Review of Systems: All other systems were reviewed and negative except as noted in HPI Physical Exam 2 Physical Exam: General exam: Appears comfortable, no acute distress HEENT: Pupils are equal and reactive to light Neck: No JVD, neck is supple trachea is midline Respiratory system: Clear breath sounds bilaterally. Gastrointestinal: Abdomen is soft, non distended, non tender, bowel sounds are present CVS: Regular rate and rhythm. No murmurs, rubs or gallops Musculoskeletal: No joint or muscle tenderness Extremities: Non tender, no edema, peripheral pulses are present Neuro: Oriented, no tremors, no focal neurological deficits Skin: No rashes Results & Data Vital Signs (Past 12 Hours) Vital Signs Temp Pulse Pulse Resp BP BP Pulse Ox 10/16/23 11:56 36.6 C 76 18 120/68 92 10/16/23 09:00 10/16/23 08:20 36.4 C L 79 18 10/16/23 07:56 36.4 C L 79 18 148/85 H 90 10/16/23 07:00 69 10/16/23 03:00 36.7 C 65 18 133/78 92 O2 Del Method 10/16/23 11:56 Room Air 10/16/23 09:00 Room Air 10/16/23 08:20 10/16/23 07:56 Nasal Cannula 10/16/23 07:00 10/16/23 03:00 Room Air Laboratory Results 10/16/23 05:01 10/16/23 05:01 WBC 8.18 RBC 4.01 L MCV 90.0 MCH 30.4 MCHC 33.8 RDW Std Deviation 52.8 H RDW Coeff of Maureen 16.0 H Plt Count 284 MPV 10.6
[2023-10-16] MEDS: WARFARIN SOD 5 MG TAB PO SCH (16:19)
--- NOTE | 2023-10-16 16:34 | Hospitalist Progress Note ---
Date of Service October 16, 2023 Assessment & Plan (1) Bilateral pulmonary embolism: Plan: 78-year-old male with past medical history significant for peripheral vascular disease, hypertension, history of prostate cancer s/p surgery, end-stage renal disease on peritoneal dialysis comes in because of shortness of breath and palpitation and found to be have bilateral PE and poss. right heart strain. he is being managed for the following: Bilateral pulm embolism Possible right heart strain - per cardiology - no R heart strain Mild elevation troponin Started on IV heparin -> started on Coumadin 5 mg daily 10/14 cardiac enzymes checked, echo obtained, and cardiology consulted Echo -rhythm is atrial fibrillation with rapid ventricular response. The study was technically difficult. LV cavity appears small and underfilled. LV is hyperdynamic. EF 70%. Asymmetric LV hypertrophy involving the septum with maximal thickness of 2 cm. No significant LV outflow tract gradient at rest. There is mild tricuspid regurg. Doppler findings do not suggest pulmonary hypertension. Close monitoring telemetry PT/INR 1.1 today, follow PT/INR in AM. Continue heparin drip until therapeutic INR. Tachycardia Wide-complex tachycardia History of 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 afib/aflutter w/ RVR Initially his blood pressure was soft but that improved Seems poor oral intake since last 2 weeks Received gentle fluid bolus and dose of Lopressor IV Lopressor as needed Continued home Coreg initially -> switched to metoprolol, cardizem gtt for short period of time -> pt converted to sinus Telemetry floor Close monitor Cardiology consulted and following closely - started metoprolol succinate, starting coumadin (10/14) - 5 mg daily 10/15 early AM pt in aflutter w/ RVR and required iv cardizem Cardiology following closely - added amiodarone (10/15/23) Hypertension Ex- states he is currently taking Coreg 6.25 twice daily -> changed as above Will monitor End-stage renal disease On peritoneal dialysis History of prostate cancer S/p surgery DVT prophylaxis: IV heparin bridge, on coumadin, follow pt/inr Disposition: Telemetry floor Full code Admission and Anticipated Discharge Date Admission Date: October 13, 2023 Subjective Pt seen in follow up of PE, tachycardia, afib w/ RVR, hx of ESRD on PD Lying in bed, NAD. No chest pain, shortness of breath, overall feels improved. Started on coumadin 5 Mg daily on October 14, cont. to monitor INR Early AM of 10/15 pt in flutter w/ RVR, received IV cardizem. BAck to SR. Cardiology following closely - started on amiodarone Physical Exam Physical Exam: General- WD/WN M in NAD Head- atraumatic Eyes- PERRL. ENT- oropharynx clear Neck- supple, no JVD. Lungs- clear to auscultation, no wheezing or crackles. Heart- rrr, no murmur, no gallop. Abdomen- normal bowel sounds, soft, nontender, no distension. PD cath site no erythema seen. Extremities- no pretibial edema, no erythema, moves extremities Neuro- alert,and oriented., hard of hearing. ; PERRL, no facial palsy; no dysarthria; moves extremities. Skin- warm & dry Results & Data Results & Data Vital Signs (Past 12 Hours) Vital Signs Temp Pulse Pulse Resp BP BP Pulse Ox 10/16/23 15:53 36.3 C L 77 18 148/76 H 92 10/16/23 11:56 36.6 C 76 18 120/68 92 10/16/23 09:00 10/16/23 08:20 36.4 C L 79 18 10/16/23 07:56 36.4 C L 79 18 148/85 H 90 10/16/23 07:00 69 O2 Del Method 10/16/23 15:53 Room Air 10/16/23 11:56 Room Air 10/16/23 09:00 Room Air 10/16/23 08:20 10/16/23 07:56 Nasal Cannula 10/16/23 07:00
--- NOTE | 2023-10-16 16:50 | Cardiology Progress Note ---
Date of Service October 16, 2023 Assessment & Plan (1) Bilateral pulmonary embolism: (2) Atrial flutter, paroxysmal: (3) Hypertrophic cardiomyopathy: (4) ESRD on peritoneal dialysis: (5) Bifascicular block: Plan (1) Bilateral pulmonary embolism: - Unprovoked. - Venous duplex negative for DVT - Continue heparin to Coumadin. INR 1.1 today (2) Atrial flutter, paroxysmal: - Had another episode am of 10/15 lasting from 1:30 AM until 4:39 AM. Converted to sinus rhythm after receiving IV diltiazem. Pauline poorly with the elevated heart rate. - Amiodarone 200 mg BID added on 10/15/2023 at least for the short term. - LFT's (Total bilirubin 0.7. AST 27. ALT 29. Alk Phos 83) and TFT's (TSH 4.990 uIU/mL, Free T4 1.2 ng/dL) this admission. CXR and Chest CT on 10/13/2023. - Continue metoprolol succinate 50 mg BID. - Check EKG (3) Hypertrophic cardiomyopathy: - Echocardiogram this admission suggest asymmetric left ventricular hypertrophy without left ventricular outflow tract obstruction. Cardiac MRI and genetic testing to be considered as outpatient. Screening first-degree relatives recommended. Avoid volume depletion. Avoid stimulants. (4) ESRD on peritoneal dialysis: - Volume status appears stable. (5) Bifascicular block: - Continue cautious treatment with metoprolol plus amiodarone given bifascicular block as noted above. Admission and Anticipated Discharge Date Admission Date: October 13, 2023 Supervising Physician Co-Signing Physician Notes 78-year-old male seen examined the bedside. Denies chest pain or shortness of breath at rest. Telemetry reveals sinus rhythm. No palpitations lightheadedness or dizziness. Notes feeling "foggy" today. Offers no other concerns/complaints PE: VSS. Gen: NAD, awake alert and oriented x 3. Heart: Regular rhythm, normal S1-S2. 1/6 systolic ejection murmur heard the base. Lungs: Clear bilateral, no rales, rhonchi, wheeze. Extremities: No edema. A/P: Agree with above PA-C history, physical exam, assessment and plan. Continue IV heparin bridge with daily warfarin for goal INR of 2.0-3.0. Echocardiogram this admission suggest asymmetric left ventricular hypertrophy without left ventricular outflow tract obstruction. Cardiac MRI and genetic testing to be considered as outpatient. Screening first-degree relatives recommended. Avoid volume depletion. In regard to paroxysmal atrial flutter/SVT, recommend continue amiodarone and metoprolol cautiously in the setting of bifascicular block. Monitor telemetry. Subjective Patient seen and examined. Chart, medications, and telemetry reviewed. Feeling OK. No palpitations. No chest pain. No difficulty breathing. Telemetry: Appears to be since with a long first degree AV block. Review of Systems Review of Systems: All systems reviewed & are unremarkable except as noted in Subjective Physical Exam Physical Exam: General: A&Ox3. NAD. Hard of hearing. HENT: Normocephalic. Atraumatic. Eyes: PER. Conjunctiva pink, sclera clear. Neck: No JVD. Heart: RRR. No murmur. Lungs: Clear to auscultation. Abdomen: +BS. + Catheter. Extremities: Mild edema. Excoriations. No evidence of cellulitis on the lower extremities. No clubbing. No cyanosis. Limited neurological examination is without focal deficits. Pulses: radial=2/4, posterior tibial=1/4. Results & Data Vital Signs (Past 12 Hours) Vital Signs Temp Pulse Pulse Resp BP BP Pulse Ox 10/16/23 15:53 36.3 C L 77 18 148/76 H 92 10/16/23 15:00 76 10/16/23 11:56 36.6 C 76 18 120/68 92 10/16/23 09:00 10/16/23 08:20 36.4 C L 79 18 10/16/23 07:56 36.4 C L 79 18 148/85 H 90 10/16/23 07:00 69 O2 Del Method 10/16/23 15:53 Room Air 10/16/23 15:00 10/16/23 11:56 Room Air 10/16/23 09:00 Room Air 10/16/23 08:20 10/16/23 07:56 Nasal Cannula 10/16/23 07:00 Laboratory Results Coagulation 10/16/23 Range/Units 05:01 PT 11.5 (9.0-12.0) Seconds CBC 10/16/23 Range/Units 05:01 WBC 8.18 (4.8-10.8) K/ul RBC 4.01 L (4.70-6.10) M/uL Hgb 12.2 L (14.0-18.0) g/dl Hct 36.1 L (42.0-52.0) % Plt Count 284 (130-400) K/uL Comprehensive Metabolic Panel 10/16/23 Range/Units 05:01 Sodium 135 L (136-145) mmol/L Potassium 3.6 (3.5-5.1) mmol/L Chloride 98 (98-107) mmol/L Carbon Dioxide 27 (21-32) mmol/L BUN 29 H (6-23) mg/dl Creatinine 5.11 H* D (0.6-1.4) mg/dl Glucose 189 H (70-99(Fasting)) mg/dl Calcium 8.6 (8.6-10.3) mg/dl Intake and Output 10/16/23 10/16/23 10/16/23 06:59 14:59 22:59 Intake Total 432.967 / 2552.000 470.133 / 470.133 Output Total 200 / 1714 347 / 347 Balance 232.967 / 838.000 123.133 / 123.133 Intake: IV 282.967 / 717.000 70.133 / 70.133 Heparin Sodium/Dextrose 25,000 282.967 / 617.000 70.133 / 70.133 units In 500 ml @ 1,300 UNITS/ HR 26 mls/hr IV .[id number] [facility] Rx #:[id number] dilTIAZem HCL 125 mg In 0 / 0 Dextrose 5% 100 ml @ 5 MG/HR 5 mls/hr IV .Q24H [facility] Rx#: [id number] Oral 150 / 1385 400 / 400 Output: Urine 200 / 200 Peritoneal Dialysis 347 / 347 Ultrafiltration Amount Other: Weight 86.6 kg 86.6 kg Weight Measurement Method [facility] Patient Weight 10/17/23 06:59 Weight 86.6 kg
[2023-10-17] MEDS: HEPARIN SODIUM/DEXTROSE 25,000 UNITS/500 ML BAG IV SCH (05:52)
[2023-10-17 06:31] LABS: Hematocrit (blood only) 35.1 % (42.0-52.0); Hemoglobin 12.3 g/dl (14.0-18.0); Mean Corpuscular Hemoglobin 30.8 pg (25.0-34.0); Mean Platelet Volume 10.6 fL (9.4-12.4); Platelet Count 293 K/uL (130-400); RDW Coefficient of Variation 15.8 % (11.5-14.5); RDW Standard Deviation 51.2 fL (36.4-46.3); Red Blood Count 3.99 M/uL (4.70-6.10); White Blood Count 8.27 K/ul (4.8-10.8)
[2023-10-17 06:53] LABS: BUN Creatinine Ratio 5.3 (10-20); Calcium 8.5 mg/dl (8.6-10.3); Est GFR (African American) 11.7 ml/min; Est GFR (Non-African American) 10.1 ml/min; Potassium 3.4 mmol/L (3.5-5.1)
[2023-10-17 06:56] LABS: ANTI-Xa, UFH(UnfractionatedHep 0.43 IU/ml (0.3-0.7); INR 1.1 (0.9-1.1)
[2023-10-17] MEDS: MAGNESIUM OXIDE 400 MG TAB PO SCH (08:13)
[2023-10-17] MEDS: AMIODARONE 200 MG TAB PO SCH ×2 (08:13→16:43)
[2023-10-17] MEDS: METOPROLOL SUCC 50MG EXT REL TAB PO SCH (08:13)
[2023-10-17] MEDS: NEPHROCAPS PO SCH (08:14)
[2023-10-17] MEDS: DOCUSATE SODIUM 100 MG CAP PO SCH (08:14)
[2023-10-17] MEDS ORDERED: WARFARIN SOD 3 MG TAB PO ONE (08:52)
[2023-10-17] MEDS ORDERED: POTASSIUM CHLORIDE CRTAB 20 MEQ TABCR PO STA (08:52)
--- NOTE | 2023-10-17 11:04 | Electrocardiogram Report ---
Test Reason : Blood Pressure : / mmHG Vent. Rate : 079 BPM Atrial Rate : 077 BPM P-R Int : 000 ms QRS Dur : 146 ms QT Int : 466 ms P-R-T Axes : 000 -58 013 degrees QTc Int : 534 ms Poor data quality, interpretation may be adversely affected Sinus rhythm with long 1st degree AV block Left anterior fascicular block Right bundle branch block Abnormal ECG Confirmed by Dominic May ([id number]) on 10/17/2023 11:03:49 AM Referred By: REFERRED SELF Confirmed By:Mike May
--- NOTE | 2023-10-17 11:57 | Cardiology Progress Note ---
Date of Service October 17, 2023 Assessment & Plan (1) Bilateral pulmonary embolism: (2) Atrial flutter, paroxysmal: (3) Hypertrophic cardiomyopathy: (4) ESRD on peritoneal dialysis: (5) Bifascicular block: Plan (1) Bilateral pulmonary embolism: - Unprovoked. - Venous duplex negative for DVT - Continue heparin to Coumadin. INR 1.1 today (2) Atrial flutter, paroxysmal: - Tolerated poorly - Amiodarone 200 mg BID added on 10/15/2023, at least for the short term. Benefits, use, and risks fully explained to patient and son. - LFT's (Total bilirubin 0.7. AST 27. ALT 29. Alk Phos 83) and TFT's (TSH 4.990 uIU/mL, Free T4 1.2 ng/dL) this admission. CXR and Chest CT on 10/13/2023. - Continue amiodarone 200 mg twice per day - Switch metoprolol succinate 50 mg BID back to carvedilol 12.5 mg twice per day. If further rhythm issues occur with this change would revert back to metoprolol succinate (3) Hypertrophic cardiomyopathy: - Echocardiogram this admission suggest asymmetric left ventricular hypertrophy without left ventricular outflow tract obstruction. Cardiac MRI and genetic testing to be considered as outpatient. If evidence of myocardial fibrosis on cardiac MRI and OK with Nephrology, add ARB. Avoid volume depletion. Avoid stimulants. Screening first-degree relatives recommended (son aware). (4) ESRD on peritoneal dialysis: - Volume status managed via peritoneal dialysis (5) Bifascicular block: Admission and Anticipated Discharge Date Admission Date: October 13, 2023 Supervising Physician Co-Signing Physician Notes 78-year-old male seen examined the bedside. Denies chest pain or shortness of breath at rest. Telemetry reveals sinus rhythm. No recurrent atrial flutter. Denies palpitations or lightheadedness. Son present at bedside. Voices concern regarding blood pressure trending upward. Carvedilol discontinued on admission in favor of metoprolol to improve heart rate control. PE: VSS. Gen: NAD, awake alert and oriented x 3. Heart: Regular rhythm, normal S1-S2. 1/6 systolic ejection murmur heard the base. Lungs: Clear bilateral, no rales, rhonchi, wheeze. Extremities: No edema. A/P: Agree with above PA-C history, physical exam, assessment and plan. Continue IV heparin bridge. Dose warfarin for goal INR of 2.0-3.0. Agree with increase to 5 mg daily. Echocardiogram this admission suggest asymmetric left ventricular hypertrophy without left ventricular outflow tract obstruction. Cardiac MRI and genetic testing to be considered as outpatient. Screening first-degree relatives recommended. Avoid volume depletion. Consideration for low-dose ARB pending review of MRI. In regard to paroxysmal atrial flutter/SVT, recommend continue amiodaron. Discontinue metoprolol and resume outpatient carvedilol to improve blood pressure control. Subjective Patient seen and examined. Chart, medications, and telemetry reviewed. Son at bedside, with multiple questions/concerns. Notes blood pressures have been creeping up daily off of carvedilol. Patient without complaints. Feeling better. No chest pain. No palpitations. No difficulty breathing. No orthopnea or PND. No lower extremity peripheral edema. Telemetry: Sinus with left anterior fascicular block. Review of Systems Review of Systems: Complete review of systems is otherwise as stated above, negative, or noncontributory. Physical Exam Physical Exam: General: A&Ox3. NAD. Hard of hearing. HENT: Normocephalic. Atraumatic. Eyes: PER. Conjunctiva pink, sclera clear. Neck: No JVD. Heart: RRR, 64 bpm. No murmur. Lungs: Clear to auscultation. Abdomen: +BS. + Catheter. Extremities: Minimal edema. Excoriations. No evidence of cellulitis on the lower extremities. No clubbing. No cyanosis. Limited neurological examination is without focal deficits. Pulses: radial=2/4, posterior tibial=1/4. Results & Data Vital Signs (Past 12 Hours) Vital Signs Temp Pulse Pulse Pulse Resp BP BP 10/17/23 11:12 36.3 C L 64 19 136/70 10/17/23 07:45 36.7 C 62 20 10/17/23 07:09 36.7 C 61 19 147/78 H 10/17/23 07:00 62 10/17/23 03:11 37.4 C 89 20 159/76 H Pulse Ox O2 Del Method 10/17/23 11:12 93 Room Air 10/17/23 07:45 10/17/23 07:09 94 Room Air 10/17/23 07:00 10/17/23 03:11 94 Room Air Laboratory Results Coagulation 10/17/23 Range/Units 05:54 PT 12.0 (9.0-12.0) Seconds CBC 10/17/23 Range/Units 05:54 WBC 8.27 (4.8-10.8) K/ul RBC 3.99 L (4.70-6.10) M/uL Hgb 12.3 L (14.0-18.0) g/dl Hct 35.1 L (42.0-52.0) % Plt Count 293 (130-400) K/uL Comprehensive Metabolic Panel 10/17/23 Range/Units 05:54 Sodium 136 (136-145) mmol/L Potassium 3.4 L (3.5-5.1) mmol/L Chloride 99 (98-107) mmol/L Carbon Dioxide 27 (21-32) mmol/L BUN 27 H (6-23) mg/dl Creatinine 5.11 H* (0.6-1.4) mg/dl Glucose 181 H (70-99(Fasting)) mg/dl Calcium 8.5 L (8.6-10.3) mg/dl Intake and Output 10/16/23 10/17/23 10/17/23 22:59 06:59 14:59 Intake Total 792.267 / 1262.400 41.6 / 41.6 Output Total 300 / 947 300 / 947 1734 / 1734 Balance -300 / 315.400 492.267 / 315.400 -1692.4 / -1692.4 Intake: IV 492.267 / 562.400 41.6 / 41.6 Heparin Sodium/Dextrose 25,000 492.267 / 562.400 41.6 / 41.6 units In 500 ml @ 1,300 UNITS/ HR 26 mls/hr IV .[id number] [facility] Rx #:[id number] Oral 300 / 700 Output: Urine 300 / 300 150 / 150 Other 300 / 300 Peritoneal Dialysis 1584 / 1584 Ultrafiltration Amount Other: Weight 86.6 kg 87.4 kg 87.4 kg Weight Measurement Method [facility] Patient Weight 10/18/23 06:59 Weight 87.4 kg I spent a total of 56 minutes on the date of service in preparation, delivery, and documentation of the care provided to Mr. Monster Samson excluding any time spent in the performance of separately billed services.
--- NOTE | 2023-10-17 12:15 | Nephrology Progress Note ---
Date of Service October 17, 2023 Assessment & Plan (1) ESRD on peritoneal dialysis: Plan: Patient has been started on peritoneal dialysis recently. He was last dialyzed on Friday night volume status good electrolytes within normal range. - He had a UF of about 1500 mls. will continue for all 2.5 % today -Start potassium chloride 20 mcg daily. -Please continue him on all of his outpatient medication (2) Bilateral pulmonary embolism: Plan: - Presently on heparin drip,no shortness of breath HR better -Continue anticoagulation Admission and Anticipated Discharge Date Admission Date: October 13, 2023 Subjective Seen for ESRD. Patient was seen and examined while on PD. He had total UF of 1.5 L. Review of Systems 2 Review of Systems: All other systems were reviewed and negative except as noted in HPI Physical Exam 2 Physical Exam: General exam: Appears comfortable, no acute distress HEENT: Pupils are equal and reactive to light Neck: No JVD, neck is supple trachea is midline Respiratory system: Clear breath sounds bilaterally. Gastrointestinal: Abdomen is soft, non distended, non tender, bowel sounds are present CVS: Regular rate and rhythm. No murmurs, rubs or gallops Musculoskeletal: No joint or muscle tenderness Extremities: Non tender, no edema, peripheral pulses are present Neuro: Oriented, no tremors, no focal neurological deficits Skin: No rashes Results & Data Vital Signs (Past 12 Hours) Vital Signs Temp Pulse Pulse Pulse Resp BP BP 10/17/23 11:12 36.3 C L 64 19 136/70 10/17/23 07:45 36.7 C 62 20 10/17/23 07:09 36.7 C 61 19 147/78 H 10/17/23 07:00 62 10/17/23 03:11 37.4 C 89 20 159/76 H Pulse Ox O2 Del Method 10/17/23 11:12 93 Room Air 10/17/23 07:45 10/17/23 07:09 94 Room Air 10/17/23 07:00 10/17/23 03:11 94 Room Air Laboratory Results 10/17/23 05:54 10/17/23 05:54 WBC 8.27 RBC 3.99 L MCV 88.0 MCH 30.8 MCHC 35.0 RDW Std Deviation 51.2 H RDW Coeff of Maureen 15.8 H Plt Count 293 MPV 10.6
[2023-10-17] MEDS: POTASSIUM CHLORIDE CRTAB 20 MEQ TABCR PO SCH (12:32)
--- NOTE | 2023-10-17 13:43 | Electrocardiogram Report ---
Test Reason : Blood Pressure : / mmHG Vent. Rate : 063 BPM Atrial Rate : 063 BPM P-R Int : 228 ms QRS Dur : 156 ms QT Int : 526 ms P-R-T Axes : 016 -61 046 degrees QTc Int : 538 ms Sinus rhythm with 1st degree A-V block Right bundle branch block Left anterior fascicular block Bifascicular block Abnormal ECG When compared with ECG of 16-OCT-2023 17:03, Previous ECG has undetermined rhythm, needs review Confirmed by Dominic May ([id number]) on 10/17/2023 1:43:01 PM Referred By: REFERRED SELF Confirmed By:Mike May
[2023-10-17] MEDS: WARFARIN SOD 5 MG TAB PO SCH (16:43)
[2023-10-17] MEDS: carvediloL 12.5 MG TAB PO SCH (16:43)
--- NOTE | 2023-10-17 16:44 | Hospitalist Progress Note ---
Date of Service October 17, 2023 Assessment & Plan (1) Bilateral pulmonary embolism: Plan: 78-year-old male with past medical history significant for peripheral vascular disease, hypertension, history of prostate cancer s/p surgery, end-stage renal disease on peritoneal dialysis comes in because of shortness of breath and palpitation and found to be have bilateral PE and poss. right heart strain. he is being managed for the following: Bilateral pulm embolism Possible right heart strain - per cardiology - no R heart strain Mild elevation troponin Started on IV heparin -> started on Coumadin 5 mg daily 10/14 cardiac enzymes checked, echo obtained, and cardiology consulted Echo -rhythm is atrial fibrillation with rapid ventricular response. The study was technically difficult. LV cavity appears small and underfilled. LV is hyperdynamic. EF 70%. Asymmetric LV hypertrophy involving the septum with maximal thickness of 2 cm. No significant LV outflow tract gradient at rest. There is mild tricuspid regurg. Doppler findings do not suggest pulmonary hypertension. Close monitoring telemetry PT/INR 1.1 today, follow PT/INR in AM. Continue heparin drip until therapeutic INR. Additional dose of warfarin given today. Tachycardia Wide-complex tachycardia History of 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 afib/aflutter w/ RVR Initially his blood pressure was soft but that improved Seems poor oral intake since last 2 weeks Received gentle fluid bolus and dose of Lopressor IV Lopressor as needed Continued home Coreg initially -> switched to metoprolol, cardizem gtt for short period of time -> pt converted to sinus Telemetry floor Close monitor Cardiology consulted and following closely -patient's beta-katerina being optimized, currently on Coreg Started coumadin (10/14) - 5 mg daily, additional dose Coumadin 10/17. 10/15 early AM pt in aflutter w/ RVR and required iv cardizem Cardiology following closely - added amiodarone (10/15/23) Hypertension Ex- states he is currently taking Coreg 6.25 twice daily -> changed as above Will monitor End-stage renal disease On peritoneal dialysis History of prostate cancer S/p surgery DVT prophylaxis: IV heparin bridge, on coumadin, follow pt/inr Disposition: Telemetry floor Full code Admission and Anticipated Discharge Date Admission Date: October 13, 2023 Subjective Pt seen in follow up of PE, tachycardia, afib w/ RVR, hx of ESRD on PD Lying in bed, NAD. No chest pain, shortness of breath, overall feels improved. Started on coumadin 5 Mg daily on October 14, cont. to monitor INR. Given additional dose of 3 mg on 10/17. Early AM of 10/15 pt in flutter w/ RVR, received IV cardizem. BAck to SR. Cardiology following closely - started on amiodarone Patient's sons at bedside who was also updated on plan of care. Physical Exam Physical Exam: General- WD/WN M in NAD Head- atraumatic Eyes- PERRL. ENT- oropharynx clear Neck- supple, no JVD. Lungs- clear to auscultation, no wheezing or crackles. Heart- rrr, no murmur, no gallop. Abdomen- normal bowel sounds, soft, nontender, no distension. PD cath site no erythema seen. Extremities- no pretibial edema, no erythema, moves extremities Neuro- alert,and oriented., hard of hearing. ; PERRL, no facial palsy; no dysarthria; moves extremities. Skin- warm & dry Results & Data Results & Data Vital Signs (Past 12 Hours) Vital Signs Temp Pulse Pulse Pulse Resp BP BP 10/17/23 15:14 36.4 C L 61 19 159/84 H 10/17/23 15:00 60 10/17/23 11:12 36.3 C L 64 19 136/70 10/17/23 07:45 36.7 C 62 20 10/17/23 07:09 36.7 C 61 19 147/78 H 10/17/23 07:00 62 Pulse Ox O2 Del Method 10/17/23 15:14 94 Room Air 10/17/23 15:00 10/17/23 11:12 93 Room Air 10/17/23 07:45 10/17/23 07:09 94 Room Air 10/17/23 07:00
[2023-10-18] MEDS: HEPARIN SODIUM/DEXTROSE 25,000 UNITS/500 ML BAG IV SCH ×2 (01:21→20:56)
[2023-10-18 06:02] LABS: Hematocrit (blood only) 36.2 % (42.0-52.0); Hemoglobin 12.5 g/dl (14.0-18.0); Mean Corpuscular Hemoglobin 30.9 pg (25.0-34.0); Mean Corpuscular Hgb Conc 34.5 g/dL (32.0-36.0); Mean Corpuscular Volume 89.6 fL (80.0-100.0); Mean Platelet Volume 10.8 fL (9.4-12.4); Platelet Count 296 K/uL (130-400); RDW Coefficient of Variation 15.7 % (11.5-14.5); RDW Standard Deviation 51.6 fL (36.4-46.3); Red Blood Count 4.04 M/uL (4.70-6.10); White Blood Count 7.81 K/ul (4.8-10.8)
[2023-10-18 06:17] LABS: Calcium 8.6 mg/dl (8.6-10.3); Creatinine Clr Calc Pharmacy 12.9 ml/min; Est GFR (African American) 11.5 ml/min; Magnesium 1.7 mg/dl (1.7-2.4); Potassium 4.3 mmol/L (3.5-5.1)
[2023-10-18 06:28] LABS: INR 1.4 (0.9-1.1); Prothrombin Time 15.1 Seconds (9.0-12.0)
[2023-10-18 06:29] LABS: ANTI-Xa, UFH(UnfractionatedHep 0.49 IU/ml (0.3-0.7)
[2023-10-18] MEDS: AMIODARONE 200 MG TAB PO SCH ×2 (08:04→16:49)
[2023-10-18] MEDS: MAGNESIUM OXIDE 400 MG TAB PO SCH (08:05)
[2023-10-18] MEDS: carvediloL 12.5 MG TAB PO SCH ×2 (08:05→16:49)
[2023-10-18] MEDS: NEPHROCAPS PO SCH (08:05)
[2023-10-18] MEDS: DOCUSATE SODIUM 100 MG CAP PO SCH (08:05)
[2023-10-18] MEDS: POTASSIUM CHLORIDE CRTAB 20 MEQ TABCR PO SCH (08:07)
[2023-10-18] MEDS ORDERED: WARFARIN SOD 2 MG TAB PO STA (08:49)
--- NOTE | 2023-10-18 10:21 | Nephrology Progress Note ---
Date of Service October 18, 2023 Assessment & Plan (1) ESRD on peritoneal dialysis: Plan: Patient has been started on peritoneal dialysis recently. He was last dialyzed on Friday night volume status good electrolytes within normal range. - He had no UF last night. will continue for all 2.5 % today -continue potassium chloride 20 meq daily. -Please continue him on all of his outpatient medication Hold magnesium oxide due to diarrhea (2) Bilateral pulmonary embolism: Plan: - Presently on heparin drip,no shortness of breath HR better -Continue anticoagulation Admission and Anticipated Discharge Date Admission Date: October 13, 2023 Subjective Seen for ESRD. Patient was seen and examined while on PD. He tolerated PD well last night. No UF. He has been having diarrhea. Review of Systems 2 Review of Systems: All other systems were reviewed and negative except as noted in HPI Physical Exam 2 Physical Exam: General exam: Appears comfortable, no acute distress HEENT: Pupils are equal and reactive to light Neck: No JVD, neck is supple trachea is midline Respiratory system: Clear breath sounds bilaterally. Gastrointestinal: Abdomen is soft, non distended, non tender, bowel sounds are present CVS: Regular rate and rhythm. No murmurs, rubs or gallops Musculoskeletal: No joint or muscle tenderness Extremities: Non tender, no edema, peripheral pulses are present Neuro: Oriented, no tremors, no focal neurological deficits Skin: No rashes Results & Data Vital Signs (Past 12 Hours) Vital Signs Temp Pulse Pulse Pulse Resp BP Pulse Ox 10/18/23 08:00 75 10/18/23 07:14 36.4 C L 76 19 10/18/23 07:14 36.4 C L 76 19 146/82 H 92 10/18/23 02:33 36.5 C 60 18 131/80 94 10/18/23 00:00 61 10/17/23 23:00 36.5 C 56 L 18 132/79 94 O2 Del Method 10/18/23 08:00 10/18/23 07:14 10/18/23 07:14 Room Air 10/18/23 02:33 Room Air 10/18/23 00:00 10/17/23 23:00 Room Air Laboratory Results 10/18/23 05:19 10/18/23 05:19 WBC 7.81 RBC 4.04 L MCV 89.6 MCH 30.9 MCHC 34.5 RDW Std Deviation 51.6 H RDW Coeff of Maureen 15.7 H Plt Count 296 MPV 10.8
--- NOTE | 2023-10-18 16:35 | Hospitalist Progress Note ---
Date of Service October 18, 2023 Assessment & Plan (1) Bilateral pulmonary embolism: Plan: 78-year-old male with past medical history significant for peripheral vascular disease, hypertension, history of prostate cancer s/p surgery, end-stage renal disease on peritoneal dialysis comes in because of shortness of breath and palpitation and found to be have bilateral PE and poss. right heart strain. he is being managed for the following: Bilateral pulm embolism Possible right heart strain - per cardiology - no R heart strain Mild elevation troponin Started on IV heparin -> started on Coumadin 5 mg daily 10/14 cardiac enzymes checked, echo obtained, and cardiology consulted Echo -rhythm is atrial fibrillation with rapid ventricular response. The study was technically difficult. LV cavity appears small and underfilled. LV is hyperdynamic. EF 70%. Asymmetric LV hypertrophy involving the septum with maximal thickness of 2 cm. No significant LV outflow tract gradient at rest. There is mild tricuspid regurg. Doppler findings do not suggest pulmonary hypertension. Close monitoring telemetry PT/INR 1.4 today, follow PT/INR in AM. Continue heparin drip until therapeutic INR. Additional dose of warfarin given today. Tachycardia Wide-complex tachycardia History of 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 afib/aflutter w/ RVR Initially his blood pressure was soft but that improved Seems poor oral intake since last 2 weeks Received gentle fluid bolus and dose of Lopressor IV Lopressor as needed Continued home Coreg initially -> switched to metoprolol, cardizem gtt for short period of time -> pt converted to sinus Telemetry floor Close monitor Cardiology consulted and following closely -patient's beta-katerina being optimized, currently on Coreg Started coumadin (10/14) - 5 mg daily, additional dose Coumadin 10/17 and 10/18 10/15 early AM pt in aflutter w/ RVR and required iv cardizem Cardiology following closely - added amiodarone (10/15/23), back on coreg. Hypertension Ex- states he is currently taking Coreg 6.25 twice daily -> changed as above Will monitor End-stage renal disease On peritoneal dialysis History of prostate cancer S/p surgery DVT prophylaxis: IV heparin bridge, on coumadin, follow pt/inr Disposition: Telemetry floor Full code Admission and Anticipated Discharge Date Admission Date: October 13, 2023 Subjective Pt seen in follow up of PE, tachycardia, afib w/ RVR, hx of ESRD on PD Lying in bed, NAD. No chest pain, shortness of breath, overall feels improved. Started on coumadin 5 Mg daily on October 14, cont. to monitor INR. Given additional dose of 3 mg on 10/17 and 2 mg on 10/18. Early AM of 10/15 pt in flutter w/ RVR, received IV cardizem. BAck to SR. Cardiology following closely - started on amiodarone Physical Exam Physical Exam: General- WD/WN M in NAD Head- atraumatic Eyes- PERRL. ENT- oropharynx clear Neck- supple, no JVD. Lungs- clear to auscultation, no wheezing or crackles. Heart- rrr, no murmur, no gallop. Abdomen- normal bowel sounds, soft, nontender, no distension. PD cath site no erythema seen. Extremities- no pretibial edema, no erythema, moves extremities Neuro- alert,and oriented., hard of hearing. ; PERRL, no facial palsy; no dysarthria; moves extremities. Skin- warm & dry Results & Data Results & Data Vital Signs (Past 12 Hours) Vital Signs Temp Pulse Pulse Pulse Resp BP Pulse Ox 10/18/23 16:12 36.6 C 68 18 132/76 96 10/18/23 11:30 36.4 C L 74 19 125/77 93 10/18/23 08:00 75 10/18/23 07:14 36.4 C L 76 19 10/18/23 07:14 36.4 C L 76 19 146/82 H 92 O2 Del Method 10/18/23 16:12 Room Air 10/18/23 11:30 Room Air 10/18/23 08:00 10/18/23 07:14 10/18/23 07:14 Room Air
[2023-10-18] MEDS: WARFARIN SOD 5 MG TAB PO SCH (16:49)
[2023-10-19 06:25] LABS: ANTI-Xa, UFH(UnfractionatedHep 0.62 IU/ml (0.3-0.7)
[2023-10-19 06:27] LABS: Prothrombin Time 20.5 Seconds (9.0-12.0)
[2023-10-19] MEDS: AMIODARONE 200 MG TAB PO SCH (08:50)
[2023-10-19] MEDS: carvediloL 12.5 MG TAB PO SCH (08:50)
[2023-10-19] MEDS: DOCUSATE SODIUM 100 MG CAP PO SCH (08:51)
[2023-10-19] MEDS: NEPHROCAPS PO SCH (08:52)
[2023-10-19] MEDS: POTASSIUM CHLORIDE CRTAB 20 MEQ TABCR PO SCH (08:56)
--- NOTE | 2023-10-19 12:48 | Discharge Summary ---
Date of Service October 19, 2023 Admission HPI Per Admitting Provider 78-year-old male with past medical history significant for peripheral vascular disease, hypertension, history of prostate cancer s/p surgery, end-stage renal disease on peritoneal dialysis comes in because of shortness of breath and palpitation and found to be have bilateral PE and right heart strain. Patient is very hard of hearing. He lives alone. His ex- and son checks on him daily and hung his peritoneal dialysis daily. For the last 2 weeks is getting progressively short of breath . Walking few steps making him short of breath. When his son was checking on him today his heart was high and brought him here. Initially blood pressure was soft but currently is improved. Heart rates in 150s. Denies any headache. No runny nose or sore throat. Has chronic smoker's cough. Denies any chest pain. No nausea. No abdominal pain. Normal bowel movements. As per his ex- is not eating much since last 2 weeks. Very weak and tired. No fevers. Ex gave most of the history as patient very hard of hearing. Past medical history. As mentioned above Past surgical history. S/p prostatectomy Social history. Former smoker. Quit smoking in January 2023 as per ex-. Alcohol 4 mixed drink per week as per [employer]. No drug use. Family history. Father had diabetes Admission Exam Per Admitting Provider General- Not in distress Head- atraumatic Eyes- PERRL. ENT- oropharynx clear Neck- supple, no JVD. Lungs- clear to auscultation, no wheezing or crackles. Heart- regular rhythm; Tachycardia, no murmur, no gallop. Abdomen- normal bowel sounds, soft, nontender, no distension. PD cath site no erythema seen. Extremities- no pretibial edema, no erythema Neuro- alert,and oriented., hard of hearing. ; PERRL, no facial palsy; no dysarthria; moves extremities. 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 ENT- oropharynx clear Neck- supple, no JVD. Lungs- clear to auscultation, no wheezing or crackles. Heart- rrr, no murmur, no gallop. Abdomen- normal bowel sounds, soft, nontender, no distension. PD cath site no erythema seen. Extremities- no pretibial edema, no erythema, moves extremities Neuro- alert,and oriented., hard of hearing. ; PERRL, no facial palsy; no dysarthria; moves extremities. Skin- warm & dry Discharge Data Allergies Allergy/AdvReac Type Severity Reaction Status Date / Time No Known Allergies Allergy Verified 10/13/23 00:50 Consultations 10/13/23 04:12 ED Decision to Admit Stat 10/13/23 08:00 Consult Cardiology Routine Consult Nephrology Routine Ordered Studies 10/13/23 02:18 CT angio chest PE protocol Stat 10/15/23 13:47 US venous duplex leg [US venous doppler LE BI] Routine Hospital Course (1) Bilateral pulmonary embolism: 78-year-old male with past medical history significant for peripheral vascular disease, hypertension, history of prostate cancer s/p surgery, end-stage renal disease on peritoneal dialysis comes in because of shortness of breath and palpitation and found to be have bilateral PE and poss. right heart strain. he was managed for the following: Bilateral pulm embolism Possible right heart strain - per cardiology - no R heart strain Mild elevation troponin Started on IV heparin -> started on Coumadin 5 mg daily 10/14 cardiac enzymes checked, echo obtained, and cardiology consulted Echo -rhythm is atrial fibrillation with rapid ventricular response. The study was technically difficult. LV cavity appears small and underfilled. LV is hyperdynamic. EF 70%. Asymmetric LV hypertrophy involving the septum with maximal thickness of 2 cm. No significant LV outflow tract gradient at rest. There is mild tricuspid regurg. Doppler findings do not suggest pulmonary hypertension. Close monitoring telemetry PT/INR 2.0 today, heparin drip discontinued. Will continue 5 mg daily warfarin on discharge, patient to follow-up with Coumadin clinic on Friday. Patient's son was communicated above information over the phone at bedside and explained the importance of following up with Coumadin clinic as the dose titration for warfarin might vary. Tachycardia Wide-complex tachycardia History of 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 afib/aflutter w/ RVR Initially his blood pressure was soft but that improved Seems poor oral intake since last 2 weeks Received gentle fluid bolus and dose of Lopressor IV Lopressor as needed Continued home Coreg initially -> switched to metoprolol, cardizem gtt for short period of time -> pt converted to sinus Telemetry floor Close monitor Cardiology consulted and following closely -patient's beta-katerina being optimized, currently on Coreg Started coumadin (10/14) - 5 mg daily, additional dose Coumadin 10/17 and 10/18 10/15 early AM pt in aflutter w/ RVR and required iv cardizem Cardiology following closely - added amiodarone (10/15/23), back on coreg. Hypertension Ex- states he is currently taking Coreg 6.25 twice daily -> changed as above Will monitor End-stage renal disease On peritoneal dialysis History of prostate cancer S/p surgery DVT prophylaxis: IV heparin bridge, on coumadin, follow pt/inr Disposition: Telemetry floor Full code Patient is being discharged to home with family support with following instruction at the point of discharge: Follow-up with your primary care physician within a week time and likely you will need labs CBC/CMP/magnesium/phosphorus. For your blood clot in the lungs, you were started on warfarin, your INR number today was 2.0, you will be discharged on warfarin 5 mg daily. You will need Coumadin clinic follow-up in 2 days, it is very important that you follow-up with Coumadin clinic and follow their further recommendations. Follow-up with your cardiology in 2 to 4 weeks time upon discharge. Take your medications as prescribed. Please make sure that you are able to get your medications today by calling your pharmacy before you leave the hospital so that your treatment continuity is not broken. Home Health Attestation I certify that this patient is under my care and that I, or a physicians study assistant working with me, had a face to-face encounter that meets the home health [id number] encounter requirements with this patient. The encounter with the patient was in whole, or in part, for the following medical condition, which is the primary reason for home health care (list medical condition): I certify that, based on my findings, the following services are medically necessary home health services: My clinical findings support the need for the above services because: Further, I certify that my clinical findings support that this patient is homebound (i.e. absences from home require considerable and taxing effort and are for medical reasons or orthodox services or infrequently or of short duration when for other reasons) because: Certification for Home Health Services: Based on the above findings, I certify that this patient is confined to the home and needs intermittent jail care, physical therapy and/or speech therapy or continues to need occupational therapy. The patient is under my care, and I have initiated the establishment of the plan of care. This patient will be followed by a physician who will periodically review the plan of care. Total Time Total Time Spent Total Time Spent (In Minutes): 45 Discharge Plan Discharge Items Patient Disposition: Home - Self-Care Reason For Visit: B/L PE, TACHYCARDIA Discharge Diagnosis: Bilateral pulmonary embolism Wide-complex tachycardia History of 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 A-fib and a flutter with RVR Activity: Resume your previous activity Non-emergency contact: Primary Care Provider Call non-emergency contact if: you have any medication questions, your symptoms worsen and your temperature is above 101 Follow-up/Referrals: [facility] [Primary Care Provider] - Diet: Dialysis Renal and Low Sodium (2gm) Diet Texture: Easy to Chew Addtl Attending Provider Instructions: Follow-up with your primary care physician within a week time and likely you will need labs CBC/CMP/magnesium/phosphorus. For your blood clot in the lungs, you were started on warfarin, your INR number today was 2.0, you will be discharged on warfarin 5 mg daily. You will need Coumadin clinic follow-up in 2 days, it is very important that you follow-up with Coumadin clinic and follow their further recommendations. Follow-up with your cardiology in 2 to 4 weeks time upon discharge. Take your medications as prescribed. Please make sure that you are able to get your medications today by calling your pharmacy before you leave the hospital so that your treatment continuity is not broken. Pending Studies at Discharge: No Stand-Alone Forms: My [facility], Smoking Cessation Medications and DC Order Prescriptions: New warfarin 5 mg Tablet 5 mg PO DAILY@1600 Qty: 30 0RF amiodarone 200 mg Tablet 200 mg PO BIDM Qty: 60 0RF potassium chloride 10 mEq tablet extended release 10 meq PO DAILY Qty: 7 0RF Continued carvedilol 12.5 mg tablet 12.5 mg PO BID Nephro-Igor 0.8 mg Tablet 1 tab PO QAM docusate sodium [Stool Softener] 100 mg Capsule 100 mg PO DAILY Discharge Orders: Discharge Order (Routine); Ordered 10/19/23 Ordered By: Amy Shrestha Admission Data Admit Date/Time: 10/13/23 05:04 Attending Provider: Amy Shrestha Admit Provider: Kailash Washington Primary Care Provider: [facility] Other Providers: Kailash Washington; Nannette Gonzales; Monster Gary; Carlos Enrique So; Rick Tan; Werner Galeana; Stone Dickerson; Maria Guadalupe Pederson; Rosalba Humphrey; Nannette Pizarro; Martin Thompson; Damon Guillory; Charissa Ramos; Mayte Arteaga; Clemencia Thompson; Moses Vegas; Teena Galvan
== END 2023-10-19 15:24 | disposition home or self-care (01) | DRG 175 ==
LOC: ED 23:47 → 4W 10-13 05:04 → SUATTDRO 10-13 05:04 → 4W 10-13 05:24

== ENCOUNTER 2024-04-12 21:39 | Inpatient (IN) ==
--- OUTSIDE RECORDS SUMMARY | 2024-04-12 21:56 | External Medical Summary | Summary of Care ---
Author Name Unknown Organization [facility] Address [address] [place] [address] Phone [phone] Care Team Providers Care Story Writer Name Role Phone Debbie Arango MD Primary Care Provider Reason for Visit * Reason Comments Outpatient Testing Encounter Details Date Type Department Care Team (Late st Contact Info) Description 04/08/2024 1:00 PM EDT Laboratory Laboratory, [place] [address] [place] [phone] [place] [address], [place] [phone] Kidney disease, chronic, stage IV (GFR 15-29 ml/min) ([facility]); HTN, goal below 130/80; CKD (chronic kidney disease) stage 5, GFR less than 15 ml/min ([facility]); Peripheral vascular disease with claudication ([facility]); Orthostatic hypotension Allergies No known active allergiesdocumented as of this encounter (statuses as of 04/08/2024) Medications Medication Sig Dispensed Refills Start Date End Date Status Nutra/Shake Oral LiquidIndications:C KD (chronic kidney disease) stage 5, GFR less than 15 ml/min ([facility]) TAKE ONE BY MOUTH EVERY DAY TO SUPPLEMENT NUTRIENT INTAKE 03/20/2023 Active Renal Vitamin 0.8 MG Oral TabletIndications:C KD (chronic kidney disease) stage 5, GFR less than 15 ml/min (HCC) Take 1 Tablet by mouth in the morning. 90 Tablet 3 09/08/2023 Active Carvedilol 12.5 MG Oral Tablet (Coreg)Indications: CKD (chronic kidney disease) stage 5, GFR less than 15 ml/min (HCC) Take 1 Tablet by mouth in the morning and 1 Tablet before bedtime. 180 Tablet 3 09/08/2023 Active Potassium Chloride Rimma ER 10 MEQ Oral Tablet Extended Release Take 1 Tablet by mouth in the morning. Active Gentamicin Sulfate 0.1 % External Cream Apply topically to affected area daily. Apply to exit site after treatment daily. 30 g 3 11/18/2023 Active Amiodarone HCl 200 MG Oral Tablet (Pacerone) Take 1 Tablet by mouth in the morning. 10/19/2023 Active Warfarin Sodium 5 MG Oral Tablet (Coumadin) Take 1 Tablet by mouth in the morning. OR DIRECTED BY THE COUMADIN. 10/19/2023 Active Docusate Sodium 100 MG Oral Capsule (Colace) Take 1 Capsule by mouth in the morning. Pt takes this once daily . Active Vitamin D 50 MCG (2000 UT) Oral Capsule Take 2,000 Units by mouth in the morning. Active documented as of this encounter (statuses as of 04/08/2024) Active Problems Problem Noted Date Diagnosed Date CKD (chronic kidney disease) stage 5, GFR less than 15 ml/min 05/21/2023 Peripheral vascular disease with claudication HTN, goal below 130/80 05/21/2023 documented as of this encounter (statuses as of 04/08/2024) Social History Tobacco Use Types Packs/Day Years Used Date Smoking Tobacco: Former Cigars Smokeless Tobacco: Never Comments:3-4 Cigars per day Alcohol Use Standard Drinks/Week Comments Yes 0 (1 standard drink = 0.6 oz pur e alcohol) 4 mixed drinks per week Utilities Answer Date Recorded Do you have trouble paying y our heating, water, or electric bill? (Adult - for ages 18 years and over) Not on file 04/06/2024 Is your family able to pay t he heat, water, or electric bill? (Household - for ages 0-17 years) Not on file 04/06/2024 Does your family have access to good internet? (Household - for ages 0-17 years) Not on file 04/06/2024 Social Connections Answer Date Recorded How often do you feel lonely or isolated from those around you? (Adult - for ages 18 years and over) Not on file 04/06/2024 Sex and Gender Information Value Date Recorded Sex Assigned at Not on file Gender Identity Male 04/01/2023 4:40 PM EDT Sexual Orientation Straight 04/01/2023 4: 40 PM EDT Job Start Date Occupation Industry Not on file Not on file Not on file documented as of this encounter Plan of Treatment Upcoming Encounters Date Type Department Care Team (Late st Contact Info) Description 05/04/2024 3:00 PM EDT Office Visit Cardiology, [facility] [address] [id number] Rick Tan DO [address] [id number] 06/30/2024 1:00 PM EDT Cardiac Studies Cardiac Studies, [facility] [address] [id number] 09/15/2024 11:30 AM EST Telemedicine Cardiovascular Genetics, [facility] [address] [phone] Kayla Larson, [place] [address] [phone] Pending Results Name Type Priority Associated Diagnoses Date /Time BASIC METABOLIC PANEL Lab Routine Kidney disease, chronic, stage IV (GFR 15-29 ml/min) ([facility]) 04/08/2024 1:26 PM EDT T4, FREE Lab Routine HTN, goal below 130/80 CKD (chronic kidney disease) stage 5, GFR less than 15 ml/min ([facility]) Peripheral vascular disease with claudication ([facility]) 04/08/2024 1:26 PM EDT TSH Lab Routine HTN, goal below 130/80 CKD (chronic kidney disease) stage 5, GFR less than 15 ml/min ([facility]) Peripheral vascular disease with claudication ([facility]) 04/08/2024 1:26 PM EDT REFERRED TEST, [facility] (LAB USE ONLY) Lab Routine Orthostatic hypotension 04/08/2024 1:26 PM EDT Health Maintenance Due Date Last Done Comments Depression Screening 1957 DTaP,Tdap,and Td Vaccines (1 - Tdap) 1965 COVID-19 Vaccine ( - 2022-2 4 season) 2023 Influenza Vaccine (FLU shot) (Season Ended) 2024 Pneumococcal Vaccine: 65+ Years Completed 05/10/2019, 01/15/2018, 03/22/2013 Zoster Vaccines Completed 05/28/2021, 05/10/2019 GARDASIL-HPV IMMUNIZATION SERIES Aged Out No longer eligible b ased on patient's age to complete this topic Hepatitis B Aged Out No longer eligi ble based on patient's age to complete this topic MENINGOCOCCAL (MENACTRA/MENVEO) Aged Out No longer eligible b ased on patient's age to complete this topic documented as of this encounter Medical Devices Not on filedocumented as of this encounter Visit Diagnoses Diagnosis Kidney disease, chronic, stage IV (GFR 15-29 ml/min) (HCC) Chronic kidney disease, Stage IV (severe) HTN, goal below 130/80 Unspecified essential hypertension CKD (chronic kidney disease) stage 5, GFR less than 15 ml/min (HCC) Chronic kidney disease, Stage V Peripheral vascular disease with claudication (HCC) Peripheral vascular disease, unspecified Orthostatic hypotension documented in this encounter Care Teams Story Writer Relationship Specialty Start Date End Date Debbie Arango MD [address] [facility] [address] [id number] PCP - General Internal Medicine 03/04/23 documented as of this encounter
--- OUTSIDE RECORDS SUMMARY | 2024-04-12 21:56 | External Medical Summary | Summary of Care ---
Author Name Unknown Organization [facility] Address [address] [place] [address] Phone [phone] Care Team Providers Care Flat Folder Name Role Phone Debbie Arango MD Primary Care Provider Reason for Visit * Reason Comments Outpatient Testing Encounter Details Date Type Department Care Team (Late st Contact Info) Description 04/08/2024 1:00 PM EDT Laboratory Laboratory, [place] [address] [place] [phone] [place] [address], [place] [phone] Kidney disease, chronic, stage IV (GFR 15-29 ml/min) ([facility]); HTN, goal below 130/80; CKD (chronic kidney disease) stage 5, GFR less than 15 ml/min ([facility]); Peripheral vascular disease with claudication ([facility]); Orthostatic hypotension Allergies No known active allergiesdocumented as of this encounter (statuses as of 04/08/2024) Medications Medication Sig Dispensed Refills Start Date End Date Status Nutra/Shake Oral LiquidIndications:C KD (chronic kidney disease) stage 5, GFR less than 15 ml/min ([facility]) TAKE ONE BY MOUTH EVERY DAY [...] 05/04/2024 3:00 PM EDT Office Visit Cardiology, [facility] [address] [id number] Rick Tan DO [address] [id number] 06/30/2024 1:00 PM EDT Cardiac Studies Cardiac Studies, [facility] [address] [id number] 09/15/2024 11:30 AM EST Telemedicine Cardiovascular Genetics, [facility] [address] [id number] Kayla Larson, [place] [address] [phone] Pending Results Name Type Priority Associated Diagnoses Date /Time BASIC METABOLIC PANEL Lab Routine Kidney disease, chronic, stage IV (GFR 15-29 ml/min) ([facility]) 04/08/2024 1:26 PM EDT T4, FREE Lab Routine HTN, goal below 130/80 CKD (chronic kidney disease) stage 5, GFR less than 15 ml/min ([facility]) Peripheral vascular disease with claudication ([facility]) 04/08/2024 1:26 PM EDT TSH Lab Routine HTN, goal below 130/80 CKD (chronic kidney disease) stage 5, GFR less than 15 ml/min ([facility]) Peripheral vascular disease with claudication ([facility]) 04/08/2024 1:26 PM EDT REFERRED TEST, [...] hypotension documented in this encounter Care Teams Flat Folder Relationship Specialty Start Date End Date Debbie Arango MD [address] [facility] [address] [address] [phone] PCP - General Internal Medicine 03/04/23 documented as of this encounter
--- OUTSIDE RECORDS SUMMARY | 2024-04-12 21:56 | External Medical Summary ---
Author Name Unknown Address Unknown Organization [id number] [address] [place] [address] Laboratory Report Ordering Provider Test Date Status MERON MINOR 04/08/2024 13:26:23 Final Observation Date Value Abnormality Reference (Units ) Status T4, Free 04/08/2024 13:26:23 1.6 0.9-1.7 (n g/dL) Final Performing Location [facility] [address] [place] [address]
--- OUTSIDE RECORDS SUMMARY | 2024-04-12 21:56 | External Medical Summary | Summary of Care ---
Author Name Unknown Organization [facility] Address [address] [place] [address] Phone [phone] Care Team Providers Care Technical Report Writer Name Role Phone Debbie Arango MD Primary Care Provider Encounter Details Date Type Department Care Team (Late st Contact Info) Description 01/09/2024 Telephone Nephrology, [facility]na Heredia 200 [facility] [place] [address] Teena Galvan MD [address] [place] [address] Allergies No known active allergiesdocumented as of this encounter (statuses as of 04/09/2024) Medications Medication Sig Dispensed Refills Start Date End Date Status Nutra/Shake Oral LiquidIndications:C KD (chronic kidney disease) stage 5, GFR less than 15 ml/min (HCC) TAKE ONE BY MOUTH EVERY DAY TO [...] Pt takes this once daily . Active documented as of this encounter (statuses as of 04/09/2024) Active Problems Problem Noted Date Diagnosed Date CKD (chronic kidney disease) stage 5, GFR less than 15 ml/min 05/21/2023 Peripheral vascular disease with claudication HTN, goal below 130/80 05/21/2023 documented as of this encounter (statuses as of 04/09/2024) Social History Tobacco Use Types Packs/Day Years [...] on file documented as of this encounter Miscellaneous Notes * Result Encounter Note - Teena Galvan MD - 01/13/2024 9:11 PM EDT KUB with moderate stool burden in the colon and chest x-ray clear. PD catheter is in the pelvis >>needs to work on bowel regimen in addition to improving UF/ getting weight down >>pls contact PD nurse and she can convey above to pt >> nurse is Melissa Damian at [facility] * Telephone Encounter - Teena Galvan MD - 01/09/2024 3:10 PM EDT PD pt w/ qod BM Will check KUB; advised pt and son GI is trying to reach for EGD and also recommend GI see pt to address constipation documented in this encounter Plan of Treatment Upcoming Encounters Date Type Department Care Team (Late st Contact Info) Description 05/04/2024 3:00 PM EDT Office Visit Cardiology, [facility] 132 [facility] [place] [address] Rick Tan, DO 132 [facility] [place] [address] 06/01/2024 11:20 AM EDT Office Visit Neurology [facility] [address] [place] [address] Carlos Jiménez, [address] [place] [address] 06/30/2024 1:00 PM EDT Cardiac Studies Cardiac Studies, [facility] 132 [facility] [place] [address] 09/15/2024 11:30 AM EST Telemedicine Cardiovascular Genetics, [facility] 132 [place] [address] Kayla Larson, MS [address] [place] [address] Health Maintenance Due Date Last Done Comments Depression Screening 1957 DTaP,Tdap,and Td Vaccines (1 - Tdap) 1965 COVID-19 Vaccine (2022-2 4 season) 2023 Influenza Vaccine (FLU shot) [...] Not on filedocumented as of this encounter Procedures Procedure Name Priority Date/Time Associated Diagnosis Comments XR ABDOMEN 1 VIEW Routine 01/12/2024 3:0 5 PM EDT Weight gain XR CHEST 2 VIEWS Routine 01/12/2024 3:03 PM EDT Weight gain documented in this encounter Results * XR ABDOMEN 1 VIEW (01/12/2024 3:05 PM EDT) Anatomical Region Laterality Modality Abdomen, Pelvis Computed Radiogr aphy 01/13/2024 7:43 PM EDT Impressions 01/13/2024 7:40 PM EDT IMPRESSION No evidence of obstruction. Narrative 01/13/2024 7:40 PM EDT EXAM XR ABDOMEN 1 VIEW - 01/12/2024 3:05 pm HISTORY PD pt w/ wt gain; eval for constipation TECHNIQUE Single AP supine view of the abdomen was obtained. COMPARISON 10/21/2023. FINDINGS A peritoneal catheter is coiled in the pelvis. The bowel gas pattern is nonobstructive. No dilated loops of bowel are seen. Moderate colonic fecal material. There are no abnormal calcifications. Mild degenerative changes in the spine. Procedure Note Vaughn Sutherland MD - 01/13/2024 EXAM XR ABDOMEN 1 VIEW - 01/12/2024 3:05 pm HISTORY PD pt w/ wt gain; eval for constipation TECHNIQUE Single AP supine view of the abdomen was obtained. COMPARISON 10/21/2023. FINDINGS A peritoneal catheter is coiled in the pelvis. The bowel gas pattern is nonobstructive. No dilated loops of bowel areseen. Moderate colonic fecal material. There are no abnormal calcifications. Mild degenerative changes in the spine. IMPRESSION IMPRESSION No evidence of obstruction. Teena Galvan MD RADIOLOGY ([facility]) * XR CHEST 2 VIEWS (01/12/2024 3:03 PM EDT) Anatomical Region Laterality Modality Chest Computed Radiogr aphy 01/13/2024 7:40 PM EDT Impressions 01/13/2024 7:38 PM EDT IMPRESSION No active disease. Narrative 01/13/2024 7:38 PM EDT EXAM XR CHEST 2 VIEWS - 01/12/2024 3:03 pm HISTORY "dialysis patient with weight gain" TECHNIQUE Frontal and lateral views of the chest were obtained. COMPARISON 08/08/2023 FINDINGS The lungs are clear, with the exception of mild linear atelectasis or scarring in the lung bases. There is no pleural effusion or pneumothorax. The cardiomediastinal silhouette is within normal limits. Procedure Note Vaughn Sutherland MD - 01/13/2024 EXAM XR CHEST 2 VIEWS - 01/12/2024 3:03 pm HISTORY "dialysis patient with weight gain" TECHNIQUE Frontal and lateral views of the chest were obtained. COMPARISON 08/08/2023 FINDINGS The lungs are clear, with the exception of mild linear atelectasis orscarring in the lung bases. There is no pleural effusion or pneumothorax.The cardiomediastinal silhouette is within normal limits. IMPRESSION IMPRESSION No active disease. Teena Galvan MD RADIOLOGY ([facility]) documented in this encounter Visit Diagnoses Diagnosis Weight gain- Primary Abnormal weight gain documented in this encounter Care Teams Technical Report Writer Relationship Specialty Start Date End Date Debbie Arango MD [address] [place] [address] [place] [address] PCP - General Internal Medicine 03/04/23 documented as of this encounter
--- OUTSIDE RECORDS SUMMARY | 2024-04-12 21:56 | External Medical Summary | Summary of Care ---
Author Name Unknown Organization [facility] Address [address] [place] [address] Phone [phone] Care Team Providers Care Radio Television Technical Director Name Role Phone Debbie Arango MD Primary Care Provider Reason for Visit * Reason Comments Outpatient Testing Encounter Details Date Type Department Care Team (Late st Contact Info) Description 04/08/2024 1:00 PM EDT Laboratory Laboratory, [place] [address] [place] [id number] [place], Laboratory [address] [place], [place] [phone] Kidney disease, chronic, stage IV (GFR 15-29 ml/min) ([facility]); HTN, goal below 130/80; CKD (chronic kidney disease) stage 5, GFR less than 15 ml/min ([facility]); Peripheral vascular disease with claudication ([facility]); Orthostatic hypotension Allergies No known active allergiesdocumented as of this encounter (statuses as of 04/08/2024) Medications Medication Sig Dispensed Refills Start Date End Date Status Nutra/Shake Oral LiquidIndications:C KD (chronic kidney disease) stage 5, GFR less than 15 ml/min ([facility]) TAKE ONE BY MOUTH EVERY DAY [...] 05/04/2024 3:00 PM EDT Office Visit Cardiology, [facility] [address] [place] [address] Rick Tan DO 132 [place] [address] 06/30/2024 1:00 PM EDT Cardiac Studies Cardiac Studies, [facility] [address] [place] [address] 09/15/2024 11:30 AM EST Telemedicine Cardiovascular Genetics, [facility] [address] [place] [address] Kayla Larson, MS [address] [place] [address] Pending Results Name Type Priority Associated Diagnoses Date /Time BASIC METABOLIC PANEL Lab Routine Kidney disease, chronic, stage IV (GFR 15-29 ml/min) ([facility]) 04/08/2024 1:26 PM EDT T4, FREE Lab Routine HTN, goal below 130/80 CKD (chronic kidney disease) stage 5, GFR less than 15 ml/min ([facility]) Peripheral vascular disease with claudication ([facility]) 04/08/2024 1:26 PM EDT TSH Lab Routine HTN, goal below 130/80 CKD (chronic kidney disease) stage 5, GFR less than 15 ml/min ([facility]) Peripheral vascular disease with claudication ([facility]) 04/08/2024 1:26 PM EDT REFERRED TEST, [...] hypotension documented in this encounter Care Teams Radio Television Technical Director Relationship Specialty Start Date End Date Debbie Arango MD [address] [facility] [place] [address] PCP - General Internal Medicine 03/04/23 documented as of this encounter
--- OUTSIDE RECORDS SUMMARY | 2024-04-12 21:56 | External Medical Summary ---
Author Name Unknown Address Unknown Organization K01:LABORATORY [facility] [place] - [address] [place] [address] Laboratory Report Ordering Provider Test Date Status MERON MINOR 04/08/2024 13:26:23 Final Observation Date Value Abnormality Reference (Units ) Status TSH 04/08/2024 13:26:23 8.42 Above high normal 0. 27-4.20 (uIU/mL) Final Performing Location LABORATORY [facility] - [address] [place] [address]
--- OUTSIDE RECORDS SUMMARY | 2024-04-12 21:56 | External Medical Summary | Summary of Care ---
Author Name Unknown Organization [facility] Address [address] [place] [address] Phone [phone] Care Team Providers Care Band Scroll Saw Operator Name Role Phone Debbie Arango MD Primary Care Provider Reason for Referral * Evaluate & Treat - Unlimited Visits (Within 10 days (routine)) - Pending Review Specialty Diagnoses / Procedures Referred By Valarie stanley Referred To Contact Neurology Diagnoses Orthostatic hypotension Teena Galvan MD [address] [place] [address] Referral ID Status Reason Start Date Expiration Date Visits Requested Visits Authorized [id number] Pending Review Specialty Services Required 04/07/[phone] Question Answer Referral Priority Within 10 days (routine) Where should this appointment be scheduled? [facility] Is this referral being placed for insurance purposes ONLY No, patient needs appointment [facility] NEUROLOGY REFERRAL QUESTIONS Neuromuscular Comments Severe orthostatic hypotension > see 04/07/24 tel encounter; pls evaluate for worsening neuropathy or neurodegenerative disorder contributing; Saw Dr Trinidad once 03/2023; ? If needs repeat EMG Reason for Visit * Reason Onset Date Comments Appointment 04/07/2024 Encounter Details Date Type Department Care Team (Late st Contact Info) Description 04/07/2024 Telephone Nephrology, Amna Heredia [address] [place] [phone] Teena Galvan MD [address] [place] [address] Appointment Allergies No known active allergiesdocumented as of [...] as of this encounter Miscellaneous Notes * Telephone Encounter - Kiana Girard OSA - 04/08/2024 4:35 PM EDT Scheduled in May. Sent myg * Telephone Encounter - Sky Horowitz OSA - 04/08/2024 1:15 PM EDT Called patient, offered the 730 am on 04/13, spoke with Dyana. She states while this would be ok, Monster is on dialysis and it takes an hour after he is done overnight, to unhook him. She did state, that she does not think waiting will be to bad, this is not really a disaster, and she is ok waiting until April for the appt. I did let her know, if something should open, I will placehim on the wait list. She is is asking, if Dr. Tan needs any more testing on his end, to please let her know soon. She would like to get any needed testing before the EMG. Please advise, thank you. * Telephone Encounter - Snow Lozada RN - 04/08/2024 11:23 AM EDT Sky, see below. Can offer current opening 04/13 at 0730; otherwise, keep as scheduled in next available slot 05/04 ascurrent. * Telephone Encounter - Teena Galvan MD - 04/07/2024 3:16 PM EDT Patient on peritoneal dialysis. Follows w/ Dr Tan, last seen in Nov; next f/u 05/04. Having ongoing issues w/ orthostatic hypotension, exertional dyspnea x a few months. Saw PD nurse today for labs >> she reports he is Short of breath with minimal exertion. BP 124/76 sitting and 84/62 standing. dizzy frequently when standing. Currently on Carvedilol 3.13 mg once a day. Amiodarone 200 mg once a day. Not an emergent issue but ? If he can be seen sooner than mid April? 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 Not sure what other w/u he's had there. >on coreg b/c metoprolol dialyzed off > but will stop carvedilol entirely >? Need for zio or eval of carotids >recommend neurology evaluation for neuropathy/neurodegenerative disorders that may contribute and will order -will order serum norephinephrine (non fasting; no special collection instructions) >can he pls be seen sooner by cardiology if possible? documented in this encounter Plan of Treatment Upcoming Encounters Date Type Department Care Team (Late st Contact Info) Description 05/04/2024 3:00 PM EDT Office Visit Cardiology, [facility] 132 [facility] [place] [address] Rick Tan, DO 132 [place] [address] 06/01/2024 11:20 AM EDT Office Visit Neurology [facility]redia [place] [address] [place] [address] Carlos Jiménez, DO [address] [place] [address] 06/30/2024 1:00 PM EDT Cardiac Studies Cardiac Studies, [facility] [address] 09/15/2024 11:30 AM EST Telemedicine Cardiovascular Genetics, [facility] 132 [facility] [address] Kayla Larson, MS 132 [place] [address] Pending Results Name Type Priority Associated Diagnoses Date /Time REFERRED TEST, [facility] (LAB USE ONLY) Lab Routine Orthostatic hypotension 04/08/2024 1:26 PM EDT Scheduled Orders Name Type Priority Associated Diagnoses Orde r Schedule REFERRED TEST, [facility] (LAB USE ONLY) Lab Routine Orthostatic hypotension Expected: 04/22/2024, Expires: 04/08/2025 Scheduled Referrals Name Type Priority Associated Diagnoses Orde r Schedule ADULT NEUROLOGY REFERRAL OP Referral Within 10 days (routine) Orthostatic hypotension Ordered: 04/07/2024 Health Maintenance Due Date Last Done Comments [...] Procedure Name Priority Date/Time Associated Diagnosis Comments NON-FORMULARY TEST REQUEST Routine 04/07/2024 3:35 PM EDT Orthostatic hypotension documented in this encounter Results * NON-FORMULARY TEST REQUEST (04/07/2024 3:35 PM EDT) 04/07/2024 3:35 PM EDT 04/07/2024 3:35 PM EDT Narrative LABORATORY [facility] - 04/08/2024 11:11 AM EDT Laboratory testing ordered. Patient can now be collected. Approve this testing as requested.[facility] #[id number] This non-formulary test request was reviewed by Tony Germain MD. Teena Galvan MD LAB BLOOD ORDERAB LES LABORATORY [facility] [address] [facility] [address] documented in this encounter Visit Diagnoses Diagnosis Orthostatic hypotension- Primary documented in this encounter Care Teams Band Scroll Saw Operator Relationship Specialty Start Date End Date Debbie Arango MD [address] [facility] [place] [address] PCP - General Internal Medicine 03/04/23 documented as of this encounter
--- OUTSIDE RECORDS SUMMARY | 2024-04-12 21:56 | External Medical Summary | Summary of Care ---
Author Name Unknown Organization [facility] Address [address] [place] [address] Phone [phone] Care Team Providers Care Truck Unloader Name Role Phone Debbie Arango MD Primary Care Provider Reason for Visit * Reason Comments Outpatient Testing Encounter Details Date Type Department Care Team (Late st Contact Info) Description 04/08/2024 1:00 PM EDT Laboratory Laboratory, [place] [address] [place] [phone] [place], [facility] [address] [place], [place] [phone] Kidney disease, chronic, stage IV (GFR 15-29 ml/min) ([facility]); HTN, goal below 130/80; CKD (chronic kidney disease) stage 5, GFR less than 15 ml/min ([facility]); Peripheral vascular disease with claudication ([facility]); Orthostatic hypotension Allergies No known active allergiesdocumented as of this encounter (statuses as of 04/09/2024) Medications Medication Sig Dispensed Refills Start Date End Date Status Nutra/Shake Oral LiquidIndications:C KD (chronic kidney disease) stage 5, GFR less than 15 ml/min ([facility]) TAKE ONE BY MOUTH EVERY DAY TO [...] 05/04/2024 3:00 PM EDT Office Visit Cardiology, [facility] [address] [place] [address] Rick Tan, DO [address] [place] [address] 06/01/2024 11:20 AM EDT Office Visit Neurology [facility] [address] [place] [address] Carlos Jiménez, DO 200 [facility] [place] [address] 06/30/2024 1:00 PM EDT Cardiac Studies Cardiac Studies, [facility] [address] [place] [address] 09/15/2024 11:30 AM EST Telemedicine Cardiovascular Genetics, [facility] [address] [place] [address] Kayla Larson, MS [address] [place] [address] Pending Results Name Type Priority Associated Diagnoses [...] Procedure Name Priority Date/Time Associated Diagnosis Comments BASIC METABOLIC PANEL Routine 04/08/2024 1:26 PM EDT Kidney disease, chronic, stage IV (GFR 15-29 ml/min) (HCC) TSH Routine 04/08/2024 1:26 PM EDT HTN, goal below 130/80 CKD (chronic kidney disease) stage 5, GFR less than 15 ml/min (HCC) Peripheral vascular disease with claudication (HCC) T4, FREE Routine 04/08/2024 1:26 PM EDT HTN, goal below 130/80 CKD (chronic kidney disease) stage 5, GFR less than 15 ml/min (HCC) Peripheral vascular disease with claudication (HCC) documented in this encounter Results * (ABNORMAL) TSH (04/08/2024 1:26 PM EDT) TSH 8.42(H) 0.27 - 4.20 uIU/mL 04/08/2024 11:00 PM EDT [facility] Blood Venous blood specimen / Unknown Venipuncture / Unknown 04/08/2024 1:26 PM EDT 04/08/2024 1:26 PM EDT Rick Tan DO LAB BLOOD ORDERABLE S [facility] [address] [place] [address] * T4, FREE (04/08/2024 1:26 PM EDT) T4, Free 1.6 0.9 - 1.7 ng/dL 04/08/2024 11:00 PM EDT [facility] Blood Venous blood specimen / Unknown Venipuncture / Unknown 04/08/2024 1:26 PM EDT 04/08/2024 1:26 PM EDT Rick Tan DO LAB BLOOD ORDERABLE S LAB[facility]ATORY [facility] [address] [place] [address] * (ABNORMAL) BASIC METABOLIC PANEL (04/08/2024 1:26 PM EDT) BUN 32(H) 6 - 20 mg/dL 04/08/2024 10:16 PM EDT [facility] Creatinine 6.7(H) 0.6 - 1.2 mg/dL 04/08/2024 10:16 PM EDT [facility] Estimated Glomerular Filtration Rate 8(L) >=60 mL/min 04/08/2024 10:16 PM EDT [facility] Comment:eGFR is calculated b ased on the CKD-EPI 2020 equation Sodium 133(L) 135 - 146 mmol/L 04/08/2024 10:16 PM EDT [facility] Potassium 4.4 3.5 - 5.1 mmol/L 04/08/2024 10:16 PM EDT [facility] Chloride 91(L) 98 - 107 mmol/L 04/08/2024 10:16 PM EDT [facility] CO2 29 22 - 32 mmol/L 04/08/2024 10:16 PM EDT [facility] Anion Gap 13 7 - 15 mmol/L 04/08/2024 10:16 PM EDT [facility] Glucose 80 70 - 120 mg/dL 04/08/2024 10:16 PM EDT [facility] Calcium 9.0 8.4 - 10.2 mg/dL 04/08/2024 10:16 PM EDT [facility] Blood Venous blood specimen / Unknown Venipuncture / Unknown 04/08/2024 1:26 PM EDT 04/08/2024 1:26 PM EDT Teena Galvan MD LAB BLOOD ORDERAB LES LAB[facility]ATORY [facility] [address] [facility] [place] [place] [address] documented in this encounter Visit Diagnoses Diagnosis Kidney disease, chronic, stage IV (GFR 15-29 ml/min) (HCC) Chronic kidney disease, Stage IV (severe) HTN, goal below 130/80 Unspecified essential hypertension CKD (chronic kidney disease) stage 5, GFR less than 15 ml/min (HCC) Chronic kidney disease, Stage V Peripheral vascular disease with claudication (HCC) Peripheral vascular disease, unspecified Orthostatic hypotension documented in this encounter Care Teams Truck Unloader Relationship Specialty Start Date End Date Debbie Arango MD [address] [facility] [place] [address] PCP - General Internal Medicine 03/04/23 documented as of this encounter
--- OUTSIDE RECORDS SUMMARY | 2024-04-12 21:56 | External Medical Summary | Summary of Care ---
Author Name Unknown Organization [facility] Address [address] [place] [address] Phone [phone] Care Team Providers Care Clinical Laboratory Scientist Name Role Phone Debbie Arango MD Primary Care Provider Reason for Referral * Evaluate & Treat - Unlimited Visits (Within 10 days (routine)) - Pending Review Specialty Diagnoses / Procedures Referred By Valarie stanley Referred To Contact Neurology Diagnoses Orthostatic hypotension Teena Galvan MD [address] [place] [address] Referral ID Status Reason Start Date Expiration Date Visits Requested Visits Authorized [id number] Pending Review Specialty Services Required 04/07/[phone] Question Answer Referral Priority Within 10 days (routine) Where should this appointment be scheduled? [facility] Is this referral being placed for insurance purposes ONLY No, patient needs appointment [facility] NEUROLOGY REFERRAL QUESTIONS Neuromuscular Comments Severe orthostatic hypotension > see 04/07/24 tel encounter; pls evaluate for worsening neuropathy or neurodegenerative disorder contributing; Saw Dr Trinidad once 03/2023; ? If needs repeat EMG Reason for Visit * Reason Onset Date Comments Appointment 04/07/2024 Encounter Details Date Type Department Care Team (Late st Contact Info) Description 04/07/2024 Telephone Nephrology, [facility] [address] [place] [phone] Teena Galvan MD [address] [place] [address] Appointment Allergies No known active allergiesdocumented as [...] mid April? 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 [facility]?2 wks[facility]; not sure of [...] 3:00 PM EDT Office Visit Cardiology, [facility] 132 [place] [address] Rick Tan, DO 132 [place] [address] 06/01/2024 11:20 AM EDT Office Visit Neurology Amna Hered[facility] [place] [address] [place] [address] Carlos Jiménez, DO [address] [place] [address] 06/30/2024 1:00 PM EDT Cardiac Studies [facility], [facility] [address] 09/15/2024 11:30 AM EST Telemedicine Cardiovascular Genetics, [facility] [address] [facility] [address] Kayla Larson, MS [address] [place] [address] Pending Results Name Type Priority Associated Diagnoses [...] EDT 04/07/2024 3:35 PM EDT Narrative [facility] [place] [place] 04/08/2024 11:11 AM EDT Laboratory testing ordered. Patient can now be collected. Approve this testing as requested.[facility] #[id number] This non-formulary test request was reviewed by Tony Germain MD. Teena Galvan MD LAB BLOOD ORDERAB LES [facility] [address] [facility] [address] documented in this encounter Visit Diagnoses Diagnosis Orthostatic hypotension- Primary documented in this encounter Care Teams Clinical Laboratory Scientist Relationship Specialty Start Date End Date Debbie Arango MD [address] [facility] [place] [address] PCP - General Internal Medicine 03/04/23 documented as of this encounter
--- OUTSIDE RECORDS SUMMARY | 2024-04-12 21:56 | External Medical Summary | Summary of Care ---
Author Name Unknown Organization [facility] Address [address] [place] [address] Phone [phone] Care Team Providers Care Lye Boiler Name Role Phone Debbie Arango MD Primary Care Provider Reason for Visit * Reason Comments Outpatient Testing Encounter Details Date Type Department Care Team (Late st Contact Info) Description 04/08/2024 1:00 PM EDT Laboratory Laboratory, [place] [address] [place] [phone] [place], [facility] [address], [place] [phone] Kidney disease, chronic, stage IV (GFR 15-29 ml/min) ([facility]); HTN, goal below 130/80; CKD (chronic kidney disease) stage 5, GFR less than 15 ml/min ([facility]); Peripheral vascular disease with claudication ([facility]); Orthostatic hypotension Allergies No known active allergiesdocumented as of this encounter (statuses as of 04/08/2024) Medications Medication Sig Dispensed Refills Start Date End Date Status Nutra/Shake Oral LiquidIndications:C KD (chronic kidney disease) stage 5, GFR less than 15 ml/min ([facility]) TAKE ONE BY MOUTH EVERY DAY TO [...] 05/04/2024 3:00 PM EDT Office Visit Cardiology, [facility] [address] [address] Rick Tan DO [address] [address] 06/30/2024 1:00 PM EDT Cardiac Studies Cardiac Studies, [facility] [address] [address] 09/15/2024 11:30 AM EST Telemedicine Cardiovascular Genetics, [facility] [address] [address] Kayla Larson, MS [address] [place] [address] Pending Results Name Type Priority Associated Diagnoses Date /Time BASIC METABOLIC PANEL Lab Routine Kidney disease, chronic, stage IV (GFR 15-29 ml/min) ([facility]) 04/08/2024 1:26 PM EDT T4, FREE Lab Routine HTN, goal below 130/80 CKD (chronic kidney disease) stage 5, GFR less than 15 ml/min ([facility]) Peripheral vascular disease with claudication ([facility]) 04/08/2024 1:26 PM EDT TSH Lab Routine HTN, goal below 130/80 CKD (chronic kidney disease) stage 5, GFR less than 15 ml/min ([facility]) Peripheral vascular disease with claudication ([facility]) 04/08/2024 1:26 PM EDT REFERRED TEST, [facility] [...] hypotension documented in this encounter Care Teams Lye Boiler Relationship Specialty Start Date End Date Debbie Arango MD [address] [facility] [address] [place] [address] PCP - General Internal Medicine 03/04/23 documented as of this encounter
--- OUTSIDE RECORDS SUMMARY | 2024-04-12 21:56 | External Medical Summary | Summary of Care ---
Author Name Unknown Organization [facility] Address [address] [place] [address] Phone [phone] Care Team Providers Care Commercial Credit Portfolio Manager Name Role Phone Debbie Arango MD Primary Care Provider Reason for Visit * Reason Comments Outpatient Testing Encounter Details Date Type Department Care Team (Late st Contact Info) Description 04/08/2024 1:00 PM EDT Laboratory Laboratory, [place] [address] [place] [phone] [place], [facility] [address], [place] [phone] Kidney disease, chronic, stage IV (GFR 15-29 ml/min) ([facility]); HTN, goal below 130/80; CKD (chronic kidney disease) stage 5, GFR less than 15 ml/min ([facility]); Peripheral vascular disease with claudication ([facility]); Orthostatic hypotension Allergies No known active allergiesdocumented as of this encounter (statuses as of 04/08/2024) Medications Medication Sig Dispensed Refills Start Date End Date Status Nutra/Shake Oral LiquidIndications:C KD (chronic kidney disease) stage 5, GFR less than 15 ml/min ([facility]) TAKE ONE BY MOUTH EVERY DAY TO [...] 05/04/2024 3:00 PM EDT Office Visit Cardiology, [facility] [address] [address] Rick Tan DO [address] [address] 06/30/2024 1:00 PM EDT Cardiac Studies Cardiac Studies, [facility] [address] [address] 09/15/2024 11:30 AM EST Telemedicine Cardiovascular Genetics, [facility] [address] [address] Kayla Larson, MS [address] [place] [address] Pending Results Name Type Priority Associated Diagnoses Date /Time BASIC METABOLIC PANEL Lab Routine Kidney disease, chronic, stage IV (GFR 15-29 ml/min) ([facility]) 04/08/2024 1:26 PM EDT T4, FREE Lab Routine HTN, goal below 130/80 CKD (chronic kidney disease) stage 5, GFR less than 15 ml/min ([facility]) Peripheral vascular disease with claudication ([facility]) 04/08/2024 1:26 PM EDT TSH Lab Routine HTN, goal below 130/80 CKD (chronic kidney disease) stage 5, GFR less than 15 ml/min ([facility]) Peripheral vascular disease with claudication ([facility]) 04/08/2024 1:26 PM EDT REFERRED TEST, [facility] [...] hypotension documented in this encounter Care Teams Commercial Credit Portfolio Manager Relationship Specialty Start Date End Date Debbie Arango MD [address] [facility] [address] [address] PCP - General Internal Medicine 03/04/23 documented as of this encounter
--- OUTSIDE RECORDS SUMMARY | 2024-04-12 21:56 | External Medical Summary | Summary of Care ---
Author Name Unknown Organization [facility] Address [address] [place] [address] Phone [phone] Care Team Providers Care Derrickman Helper Name Role Phone Debbie Arango MD Primary Care Provider Reason for Visit * Reason Comments Outpatient Testing Encounter Details Date Type Department Care Team (Late st Contact Info) Description 04/08/2024 1:00 PM EDT Laboratory Laboratory, [place] [address] [place] [phone] [place], [facility] [address] [place], [place] [phone] Kidney disease, chronic, stage IV (GFR 15-29 ml/min) ([facility]); HTN, goal below 130/80; CKD (chronic kidney disease) stage 5, GFR less than 15 ml/min ([facility]); Peripheral vascular disease with claudication ([facility]); Orthostatic hypotension Allergies No known active allergiesdocumented as of this encounter (statuses as of 04/09/2024) Medications Medication Sig Dispensed Refills Start Date End Date Status Nutra/Shake Oral LiquidIndications:C KD (chronic kidney disease) stage 5, GFR less than 15 ml/min ([facility]) TAKE ONE BY MOUTH EVERY DAY [...] 05/04/2024 3:00 PM EDT Office Visit Cardiology, [facility] [address] [address] Rick Tan, DO [address] [place] [address] 06/01/2024 11:20 AM EDT Office Visit Neurology [facility] [address] [place] [address] Carlos Jiménez, DO [address] [facility] [place] [address] 06/30/2024 1:00 PM EDT Cardiac Studies Cardiac Studies, [facility] [address] [address] 09/15/2024 11:30 AM EST Telemedicine Cardiovascular Genetics, [facility] [address] [address] Kayla Larson, MS [address] [place] [address] Pending Results Name Type Priority Associated Diagnoses [...] BLOOD ORDERABLE S LABORATORY [facility] [address] [place] [address] * T4, FREE (04/08/2024 1:26 PM EDT) T4, Free 1.6 0.9 - 1.7 ng/dL 04/08/2024 11:00 PM EDT LAB[facility]ATORY [facility] Blood Venous blood specimen / Unknown Venipuncture / Unknown 04/08/2024 1:26 PM EDT 04/08/2024 1:26 PM EDT Rick Tan DO LAB BLOOD ORDERABLE S LABORATORY [facility] [address] [place] [address] * (ABNORMAL) BASIC METABOLIC PANEL (04/08/2024 1:26 [...] Galvan MD LAB BLOOD ORDERAB LES LABORATORY [facility] [address] [place] [place] [address] documented in this encounter Visit Diagnoses Diagnosis [...] hypotension documented in this encounter Care Teams Derrickman Helper Relationship Specialty Start Date End Date Debbie Arango MD [address] [facility] [address] [place] [address] PCP - General Internal Medicine 03/04/23 documented as of this encounter
--- OUTSIDE RECORDS SUMMARY | 2024-04-12 21:56 | External Medical Summary | Summary of Care ---
Author Name Unknown Organization [facility] Address [address] [place] [address] Phone [phone] Care Team Providers Care Institutional Asset Manager Name Role Phone Debbie Arango MD Primary Care Provider Reason for Visit * Reason Comments Outpatient Testing Encounter Details Date Type Department Care Team (Late st Contact Info) Description 04/08/2024 1:00 PM EDT Laboratory Laboratory, [place] [address] [place] [phone] [place], [facility] [address], [place] [phone] Kidney disease, chronic, stage IV (GFR 15-29 ml/min) ([facility]); HTN, goal below 130/80; CKD (chronic kidney disease) stage 5, GFR less than 15 ml/min ([facility]); Peripheral vascular disease with claudication ([facility]); Orthostatic hypotension Allergies No known active allergiesdocumented as of this encounter (statuses as of 04/09/2024) Medications Medication Sig Dispensed Refills Start Date End Date Status Nutra/Shake Oral LiquidIndications:C KD (chronic kidney disease) stage 5, GFR less than 15 ml/min ([facility]) TAKE ONE BY MOUTH EVERY [...] 05/04/2024 3:00 PM EDT Office Visit Cardiology, [facility] [address] [address] Rick Tan, DO [address] [place] [address] 06/01/2024 11:20 AM EDT Office Visit Neurology [facility] [address] [place] [address] Carlos Jiménez, DO [address] [facility] [place] [address] 06/30/2024 1:00 PM EDT Cardiac Studies Cardiac Studies, [facility] [address] [address] 09/15/2024 11:30 AM EST Telemedicine Cardiovascular Genetics, [facility] [address] [address] Kayla Larson, MS [address] [place] [address] Pending Results Name Type Priority Associated Diagnoses [...] PM EDT 04/08/2024 1:26 PM EDT Rick Tna DO LAB BLOOD ORDERABLE S LABORATORY [facility] [address] [place] [address] * T4, FREE (04/08/2024 1:26 PM EDT) T4, Free 1.6 0.9 - 1.7 ng/dL 04/08/2024 11:00 PM EDT LAB[facility] Blood Venous blood specimen / Unknown Venipuncture / Unknown 04/08/2024 1:26 PM EDT 04/08/2024 1:26 PM EDT Rick Tan DO LAB BLOOD ORDERABLE S LABORATORY [facility] [address] [place] [address] * (ABNORMAL) BASIC METABOLIC PANEL (04/08/2024 1:26 [...] Galvan MD LAB BLOOD ORDERAB LES LABORATORY [facility] [address] [facility] [place] [address] documented in this encounter Visit Diagnoses Diagnosis [...] hypotension documented in this encounter Care Teams Institutional Asset Manager Relationship Specialty Start Date End Date Debbie Arango MD [address] [facility] [address] [place] [address] PCP - General Internal Medicine 03/04/23 documented as of this encounter
--- OUTSIDE RECORDS SUMMARY | 2024-04-12 21:56 | External Medical Summary | Summary of Care ---
Author Name Unknown Organization [facility] Address [address] [place] [address] Phone [phone] Care Team Providers Care Commercial Litigation Associate Name Role Phone Debbie Arango MD Primary Care Provider Reason for Visit * Reason Onset Date Comments MyCode Nonconsent - Not interested at this time 04/08/2024 Encounter Details Date Type Department Care Team (Late st Contact Info) Description 04/08/2024 Orders Only Outcomes Research Department [address] [place] [address] Marilee Peterson CHRA MyCode Nonconsent Documentation Allergies No known active allergiesdocumented as of [...] on file documented as of this encounter Progress Notes * Marilee Peterson CHRA - 04/08/2024 1:56 PM EDT MyCode Nonconsent Documentation Monster Samson was approached in the clinic regarding participation in the MyCode Project and did not consent. documented in this encounter Plan of Treatment Upcoming Encounters Date Type Department Care Team (Late st Contact Info) Description 05/04/2024 3:00 PM EDT Office Visit Cardiology, [facility] [address] [address] Rick Tan DO [address] [place] [address] 06/30/2024 1:00 PM EDT Cardiac Studies Cardiac Studies, [facility] [address] [address] 09/15/2024 11:30 AM EST Telemedicine Cardiovascular Genetics, [facility] [address] [place] [address] Kayla Larson, MS [address] [place] [address] Health Maintenance Due Date Last Done Comments [...] Not on filedocumented as of this encounter Care Teams Commercial Litigation Associate Relationship Specialty Start Date End Date Debbie Arango MD [address] [facility] [address] [place] [address] PCP - General Internal Medicine 03/04/23 documented as of this encounter
--- OUTSIDE RECORDS SUMMARY | 2024-04-12 21:56 | External Medical Summary | Summary of Care ---
Author Name Unknown Organization [facility] Address [address] [place] [address] Phone [phone] Care Team Providers Care Traveling Sales Executive Name Role Phone Debbie Arango MD Primary Care Provider Reason for Visit * Reason Comments Outpatient Testing Encounter Details Date Type Department Care Team (Late st Contact Info) Description 04/08/2024 1:00 PM EDT Laboratory Laboratory, [place] [address] [place] [phone] [place], Laboratory [address] [place], [place] [phone] Kidney disease, chronic, stage IV (GFR 15-29 ml/min) ([facility]); HTN, goal below 130/80; CKD (chronic kidney disease) stage 5, GFR less than 15 ml/min ([facility]); Peripheral vascular disease with claudication ([facility]); Orthostatic hypotension Allergies No known active allergiesdocumented as of this encounter (statuses as of 04/08/2024) Medications Medication Sig Dispensed Refills Start Date End Date Status Nutra/Shake Oral LiquidIndications:C KD (chronic kidney disease) stage 5, GFR less than 15 ml/min ([facility]) TAKE ONE BY MOUTH EVERY [...] 05/04/2024 3:00 PM EDT Office Visit Cardiology, [facility] [address] [address] Rick Tan DO [address] [address] 06/30/2024 1:00 PM EDT Cardiac Studies Cardiac Studies, [facility] [address] [address] 09/15/2024 11:30 AM EST Telemedicine Cardiovascular Genetics, [facility] [address] [address] Kayla Larson, MS [address] [place] [address] Pending Results Name Type Priority Associated Diagnoses Date /Time BASIC METABOLIC PANEL Lab Routine Kidney disease, chronic, stage IV (GFR 15-29 ml/min) ([facility]) 04/08/2024 1:26 PM EDT T4, FREE Lab Routine HTN, goal below 130/80 CKD (chronic kidney disease) stage 5, GFR less than 15 ml/min ([facility]) Peripheral vascular disease with claudication ([facility]) 04/08/2024 1:26 PM EDT TSH Lab Routine HTN, goal below 130/80 CKD (chronic kidney disease) stage 5, GFR less than 15 ml/min ([facility]) Peripheral vascular disease with claudication ([facility]) 04/08/2024 1:26 PM EDT REFERRED TEST, [facility] [...] hypotension documented in this encounter Care Teams Traveling Sales Executive Relationship Specialty Start Date End Date Debbie Arango MD [address] [facility] [address] [address] PCP - General Internal Medicine 03/04/23 documented as of this encounter
--- OUTSIDE RECORDS SUMMARY | 2024-04-12 21:57 | External Medical Summary | Summary of Care ---
Author Name Unknown Organization [facility] Address [address] [place] [address] Phone [phone] Care Team Providers Care Records Management Director Name Role Phone Debbie Arango MD Primary Care Provider Encounter Details Date Type Department Care Team (Late st Contact Info) Description 01/13/2024 Telephone Gastroenterology, [facility] [address] [place] [address] Adriana Paulson CRNP [address] [place] [address] Allergies No known active allergiesdocumented as of this encounter (statuses as of 01/16/2024) Medications Medication Sig Dispensed Refills Start Date End Date Status Nutra/Shake Oral LiquidIndications:C KD (chronic kidney disease) stage 5, GFR less than 15 ml/min ([facility]) TAKE ONE BY MOUTH EVERY DAY TO SUPPLEMENT NUTRIENT INTAKE 0 03/20/2023 Active Renal Vitamin 0.8 MG Oral [...] 1 Tablet by mouth in the morning. 0 Active Gentamicin Sulfate 0.1 % External Cream Apply topically to affected area daily. Apply to exit site after treatment daily. 30 g 3 11/18/2023 Active Amiodarone HCl 200 MG Oral Tablet (Pacerone) Take 1 Tablet by mouth in the morning. 0 10/19/2023 Active Warfarin Sodium 5 MG Oral Tablet (Coumadin) Take 1 Tablet by mouth in the morning. OR DIRECTED BY THE COUMADIN. 0 10/19/2023 Active Docusate Sodium 100 MG Oral Capsule (Colace) Take 1 Capsule by mouth in the morning. Pt takes this once daily . 0 Active documented as of this encounter (statuses as of 01/16/2024) Active Problems Problem Noted Date Diagnosed Date CKD (chronic kidney disease) stage 5, GFR less than 15 ml/min 05/21/2023 Peripheral vascular disease with claudication HTN, goal below 130/80 05/21/2023 documented as of this encounter (statuses as of 01/16/2024) Social History Tobacco Use Types Packs/Day Years Used Date Smoking Tobacco: Former Cigars Smokeless Tobacco: Never Comments:3-4 Cigars per day Alcohol Use Standard Drinks/Week Comments Yes 0 (1 standard drink = 0.6 oz pur e alcohol) 4 mixed drinks per week Sex and Gender Information Value Date Recorded Sex Assigned at Not on file Gender Identity Male 04/01/2023 4:40 PM EDT Sexual Orientation Straight 04/01/2023 4: 40 PM EDT Job Start Date Occupation Industry Not on file Not on file Not on file documented as of this encounter Miscellaneous Notes * Telephone Encounter - Amanda Brery OSA - 01/16/2024 12:17 PM EDT This was done yesterday. * Telephone Encounter - Amanda Berry OSA - 01/15/2024 3:56 PM EDT Lmm to schedule phone call at [address] العلي. * Telephone Encounter - Amanda Berry OSA - 01/15/2024 12:56 PM EDT Spoke to pt's , states she is unsure as to what procedure is to be scheduled for pt. [facility] that GI had been trying to reach pt previously and was unable to contact them. Dr. العلي, tele enc from 11/27/23 is the reason we had been trying to contact pt.There are myg messages starting 11/21/23 to 12/03/23. Does pt need any further testing here? Thanks * Telephone Encounter - Laurie Liu OSA - 01/13/2024 2:37 PM EDT Pt calling in to set procedure up she can be reached at [phone] Thanks documented in this encounter Plan of Treatment Upcoming Encounters Date Type Department Care Team (Late st Contact Info) Description 03/31/2024 12:30 PM EDT Laboratory Laboratory, [place] [address] [place] [phone] [facility] Laboratory [address] [place] [address] 06/30/2024 1:00 PM EDT Cardiac Studies Cardiac Studies, [facility] [address] [place] [address] Health Maintenance Due Date Last Done Comments Depression Screening 1957 DTaP,Tdap,and Td Vaccines (1 - Tdap) 1964 COVID-19 Vaccine ( - 2022-2 4 season) 2023 Influenza Vaccine (FLU shot) (#1) 2023 Pneumococcal Vaccine: 65+ Years Completed 05/10/2019, 01/15/2018, [...] filedocumented as of this encounter Care Teams Records Management Director Relationship Specialty Start Date End Date Debbie Arango MD [address] [facility] [address] [address] PCP - General Internal Medicine 03/04/23 documented as of this encounter
--- OUTSIDE RECORDS SUMMARY | 2024-04-12 21:57 | External Medical Summary ---
Author Name Unknown Address Unknown Organization [id number]:LABORATORY [facility] - [address] [place] [address] Laboratory Report Ordering Provider Test Date Status GENESIS BRODY 02/03/2024 13:43:31 Final Warfarin Therapy
INR: 2 .0-3.0 conventional anticoagulation
INR: 2.5- 3.5 high intensity anticoagulation Observation Date Value Abnormality Reference (Units ) Status PT 02/03/2024 13:43:31 15.4 Above high normal 11 .6-15.2 (seconds) Final INR 02/03/2024 13:43:31 1.2 0.8-1.2 Final Performing Location LABORATORY [facility] - [address] [place] [address]
--- OUTSIDE RECORDS SUMMARY | 2024-04-12 21:57 | External Medical Summary | Summary of Care ---
Author Name Unknown Organization [facility] Address [address] [place] [address] Phone [phone] Care Team Providers Care Fur Vault Attendant Name Role Phone Debbie Arango MD Primary Care Provider Reason for Visit * Reason Onset Date Comments Medication Question 02/05/2024 Encounter Details Date Type Department Care Team (Late st Contact Info) Description 02/05/2024 Telephone Access Center, [place] [address] [facility] *DO NOT REMOVE THIS DEPARTMENT* [place] [address] Services, Scheduling [address] [place] [address] Medication Question Allergies No known active allergiesdocumented as of this encounter (statuses as of 02/06/2024) Medications Medication Sig Dispensed Refills Start Date [...] takes this once daily . 0 Active Vitamin D 50 MCG (2000 UT) Oral Capsule Take 2,000 Units by mouth in the morning. 0 Active documented as of this encounter (statuses as of 02/06/2024) Active Problems Problem Noted Date Diagnosed Date CKD (chronic kidney disease) stage 5, GFR less than 15 ml/min 05/21/2023 Peripheral vascular disease with claudication HTN, goal below 130/80 05/21/2023 documented as of this encounter (statuses as of 02/06/2024) Social History Tobacco Use Types Packs/Day Years [...] encounter Miscellaneous Notes * Telephone Encounter - Ni Shelton RN - 02/06/2024 9:09 AM EDT Images from the original note were not included. Called Tressa and made aware pt can resume Coumadin on Sat Evening. Please let Arelis Baum, the pharmacist know that [facility] should resume Coumadin Sat josephine? Salena العلي MD Walker, Natalie A, RN; [facility] Scheduling/Referral Pool/[id number] ago (5:52 PM) I spoke to his about this. Can you let Arelis baum, the pharmacist know, that [facility] should start Coumadin back up on Sat evening? * Telephone Encounter - Connie Enamorado RN - 02/05/2024 11:[address] العلي, did you make recommendations on hold his Coumadin or should this be another provider? Thanks * Telephone Encounter - Lida Robison OSA - 02/05/2024 10:51 AM EDT Tressa from Facility needs to confirm discharge instructions for after procedure done by Dr العلي on 02/03/24. Patient on Warfrin and was held 5 days prior to procedure and facility was toldto hold 5 days after as well. No documentation was provided indicating this so they just need clarification. Please call Georgie at [phone] Ext [phone]. She will be there until 4:00 today. documented in this encounter Plan of Treatment Upcoming Encounters Date Type Department Care Team (Late st Contact Info) Description 03/31/2024 12:30 PM EDT Laboratory [facility] [place] [address] [address] [place], Laboratory [address] [place] [facility] [place] [address] 06/30/2024 1:00 PM EDT Cardiac Studies Cardiac Studies, [facility] [address] [facility] [place] [address] 09/15/2024 11:30 AM EST Telemedicine Cardiovascular Genetics, [facility] [address] [address] [address] Kayla Benton, MS [address] [address] Health Maintenance Due Date Last Done Comments [...] filedocumented as of this encounter Care Teams Fur Vault Attendant Relationship Specialty Start Date End Date Debbie Arango MD [address] [facility] [address] [address] PCP - General Internal Medicine 03/04/23 documented as of this encounter
--- OUTSIDE RECORDS SUMMARY | 2024-04-12 21:57 | External Medical Summary ---
Author Name Unknown Address Unknown Organization K01:[facility] [place] [facility] [address] [address] Laboratory Report Ordering Provider Test Date Status MERLIN AGUILAR 04/08/2024 13:26:23 Final Observation Date Value Abnormality Reference (Units ) Status BUN 04/08/2024 13:26:23 32 Above high normal 6-20 (mg/dL) Final Creatinine 04/08/2024 13:26:23 6.7 Above high normal 0.6-1.2 (mg/dL) Final Glomerular filtration rate/1.73 sq M.predicted [Volume Rate/Area] in Serum, Plasma or Blood by Creatinine-based formula (CKD-EPI) 04/08/2024 13:26:23 8 Below low normal >=60 (mL/min) Final eGFR is calculated based on the CKD-EPI 2020 equation Sodium 04/08/2024 13:26:23 133 Below low normal 135 -146 (mmol/L) Final Potassium 04/08/2024 13:26:23 4.4 3.5-5.1 (m mol/L) Final Cl 04/08/2024 13:26:23 91 Below low normal 98- 107 (mmol/L) Final CO2 04/08/2024 13:26:23 29 22-32 (mmo l/L) Final Anion gap 04/08/2024 13:26:23 13 7-15 (mmol /L) Final Glucose 04/08/2024 13:26:23 80 70-120 (mg /dL) Final Calcium 04/08/2024 13:26:23 9.0 8.4-10.2 ( mg/dL) Final Performing Location [facility] [place] [address] [place] [address]
--- OUTSIDE RECORDS SUMMARY | 2024-04-12 21:57 | External Medical Summary | Summary of Care ---
Author Name Unknown Organization [facility] Address [address] [place] [address] Phone [phone] Care Team Providers Care Top Inventory Control Executive Name Role Phone Debbie Arango MD Primary Care Provider Reason for Visit * Reason Onset Date Comments Advice 03/31/2024 Encounter Details Date Type Department Care Team (Late st Contact Info) Description 03/31/2024 Telephone Cardiology, [facility] [address] [facility] [address] Rick Tan, [address] [facility] [address] Advice Allergies No known active allergiesdocumented as of this encounter (statuses as of 04/01/2024) Medications Medication Sig Dispensed Refills Start Date [...] as of this encounter (statuses as of 04/01/2024) Active Problems Problem Noted Date Diagnosed Date CKD (chronic kidney disease) stage 5, GFR less than 15 ml/min 05/21/2023 Peripheral vascular disease with claudication HTN, goal below 130/80 05/21/2023 documented as of this encounter (statuses as of 04/01/2024) Social History Tobacco Use Types Packs/Day Years [...] encounter Miscellaneous Notes * Telephone Encounter - Sky Horowitz OSA - 04/01/2024 1:44 PM EDT Called patient, spoke with Ex , May 04 will work for [employer] at 3 pm thank you. * Telephone Encounter - Snow Lozada RN - 04/01/2024 1:33 PM EDT Ok to offer upcoming close in ret with Dominick as per below. Will convert once date/time verified. * Telephone Encounter - Sky Horowitz OSA - 04/01/2024 1:29 PM EDT Snow, I have with Dr. Chi on: all of the CLOS RET slots at 3 pm thank you. * Telephone Encounter - Lenora Colunga, manager bridge - 03/31/2024 4:40 PM EDT Dyana (kirsten) is calling and she has [facility]. She has an active referraland jaziel like an appt. Please call Dyana [phone] Thank you for your assistance Lenora Colunga Rehabilitation Worker II [facility] 03/31/2024,4:43 PM * Telephone Encounter - Nigel West LPN - 03/31/2024 4:12 PM EDT Called back and left a message. * Telephone Encounter - Madelin Batista OSA - 03/31/2024 3:59 PM EDT Person calling: Dyana Relationship to patient: ex Number to return call: [phone] Reason for call(brief): advice Pharmacy: Provider Name:[facility] Detailed message to office: Caller is requesting to speak with someone, she stated that it is about whether or not [facility] to [facility] Tan. Caller stated there was confusing about this, but she did speak to [facility] and wants to speak with someone in the office. Caller hung up before I could get more information. documented in this encounter Plan of Treatment Upcoming Encounters Date Type Department Care Team (Late st Contact Info) Description 06/30/2024 1:00 PM EDT Cardiac Studies Cardiac Studies, [facility] [address] [place] [address] 09/15/2024 11:30 AM EST Telemedicine Cardiovascular Genetics, [facility] [address] [place] [address] Kayla Larson, [place] [address] [place] [address] Health Maintenance Due Date Last Done Comments [...] filedocumented as of this encounter Care Teams Top Inventory Control Executive Relationship Specialty Start Date End Date Debbie Arango MD [address] [facility] [place] [address] PCP - General Internal Medicine 03/04/23 documented as of this encounter
--- OUTSIDE RECORDS SUMMARY | 2024-04-12 21:57 | External Medical Summary | Summary of Care ---
Author Name Unknown Organization [facility] Address [address] [place] [address] Phone [phone] Care Team Providers Care Stock Cutter Name Role Phone Debbie Arango MD Primary Care Provider Reason for Visit * Auth/Cert Specialty Diagnoses / Procedures Referred By Valarie stanley Referred To Contact Diagnoses Dysphagia Dysphagia [R13.10] Procedures EGD, FLEXIBLE, DIAGNOSTIC BOTULINUMTOXIN A (DEREK), 1 UNIT, INJ. ESOPHAGOGASTRODUODENOSCOPY (EGD), FLEXIBLE, TRANSORAL, DIAGNOSTIC INJECTION, ONABOTULINUMTOXIN A, 1 UNIT (BOTOX) Salena العلي MD [address] [place] [address] [address] Referral ID Status Reason Start Date Expiration Date Visits Re quested Visits Authorized [id number] Encounter Details Date Type Department Care Team (Latest Contact Info) Description 02/03/2024 12:55 PM EDT - 02/03/2024 4:16 PM EDT Hospital Encounter OR [facility], Operating Room, [facility] - 4th Floor [address] [place], [place] [id number] Salena العلي MD [address] [place] [address] Various: KRAVS,UGI Discharge Disposition: Home - Self Care Allergies No known active allergiesdocumented as of this encounter (statuses as of 02/04/2024) Medications Medication Sig Dispensed Refills Start Date [...] . 0 Active Vitamin D 50 MCG (1999 UT) Oral Capsule Take 2,000 Units by mouth in the morning. 0 Active documented as of this encounter (statuses as of 02/04/2024) Active Problems Problem Noted Date Diagnosed Date CKD (chronic kidney disease) stage 5, GFR less than 15 ml/min 05/21/2023 Peripheral vascular disease with claudication HTN, goal below 130/80 05/21/2023 documented as of this encounter (statuses as of 02/04/2024) Social History Tobacco Use Types Packs/Day Years [...] on file documented as of this encounter Last Filed Vital Signs Vital Sign Reading Time Taken Comments Blood Pressure 120/69 02/03/2024 4:07 PM EDT Pulse 76 02/03/2024 4:07 PM EDT Temperature 36.3 C (97.3 F) 02/03/2024 4:07 PM ED T Respiratory Rate 16 02/03/2024 4:07 PM EDT Oxygen Saturation 93% 02/03/2024 4:07 PM EDT Inhaled Oxygen Concentration - - Weight 84.8 kg (187 lb) 02/03/2024 1:13 PM EDT Height 172.7 cm (5' 7.99") 02/03/2024 1:13 PM ED T Body Mass Index 28.44 02/03/2024 1:13 PM EDT documented in this encounter H&P Notes * Salena العلي MD - 02/03/2024 1:57 PM EDT Endoscopy Pre-Procedure Assessment Name: Monster Samson Date: 02/03/2024 Time: 1:58 PM Procedure(s): Upper GI Endoscopy; with Indication(s) of dysphagia or odynophagia Endoscopy Pre-Procedure Assessment: Prior to the procedure, the patient is identified. The patient's history, medications and allergieshave been reviewed. The patient is competent. The risks and benefits of the proposed procedure and the planned sedation have been discussed with the patient. All questions have been answered and informed consent for the procedure has been obtained. Prior to Admission medications Medication Sig Last Dose Discont. Vitamin D 50 MCG (2000 UT) Oral Capsule Take 2,000 Units by mouth in the morning. 02/02/2024 Docusate Sodium 100 MG Oral Capsule (Colace) Take 1 Capsule by mouth in the morning. Pt takes this once daily . 02/02/2024 Amiodarone HCl 200 MG Oral Tablet (Pacerone) Take 1 Tablet by mouth in the morning. 02/03/2024 Warfarin Sodium 5 MG Oral Tablet (Coumadin) Take 1 Tablet by mouth in the morning. OR DIRECTED BY THE COUMADIN. 01/27/2024 Gentamicin Sulfate 0.1 % External Cream Apply topically to affected area daily. Apply to exit site after treatment daily. 02/02/2024 Carvedilol 12.5 MG Oral Tablet (Coreg) Take 1 Tablet by mouth in the morning and 1 Tablet before bedtime. 02/03/2024 Renal Vitamin 0.8 MG Oral Tablet Take 1 Tablet by mouth in the morning. 02/02/2024 Nutra/Shake Oral Liquid TAKE ONE BY MOUTH EVERY DAY TO SUPPLEMENT NUTRIENT INTAKE 02/02/2024 Potassium Chloride Rimma ER 10 MEQ Oral Tablet Extended Release Take 1 Tablet by mouth in the morning. Patient not taking: Reported on 12/03/2023 Not Taking Review of patient's allergies indicates: No Known Allergies BP 114/78 | Pulse 73 | Temp 36.2 C (97.2 F) (Temporal Artery) | Resp 18 | Ht 1.727 m (5' 7.99")| Wt 84.8 kg (187 lb) | SpO2 96% | BMI 28.44 kg/m | BSA 2.02 m Physical Exam: Mental Status Examination: alert and oriented. Airway Examination: normal oropharyngeal airway and neck mobility. Respiratory Examination: clear to auscultation. CV Examination: rrr, no murmurs, no S-3 or S-4. ASA Grade: III - A patient with severe systemic disease. Abdomen: negative This patient has undergone a preprocedural evaluation. A determination has been made to proceed with the planned procedure under [facility] [place] procedural guidelines and the [facility] Non-Emergent, Elective Medical Services and Treatment Recommendations (published on 01-25-20). The community and hospital prevalence of COVID-19 has been discussed as well as this patient's specific risks associated with SARS-CoV-19 infection. Based upon the clinical acuity and patient-specific care considerations, this procedure is deemed a Tier II - Intermediate acuity treatment or service with either progression or the threat of progressive disease related to the delay in treatment. Not providing the service has the potential for increasing morbidity or mortality. After reviewing the risks and benefits, the patient is deemed in satisfactory condition to undergo the procedure. The anesthesia plan is to use general anesthesia. Salena العلي MD 02/03/2024 documented in this encounter Procedure Notes * Salena العلي MD - 02/03/2024 2:19 PM EDTAssociated Order(s): UPPER GI ENDOSCOPY [facility] Patient Name: Monster Samson Procedure Date: 02/03/2024 2:19 PM Date of : 1945 Admit Type: Outpatient Note Status: Finalized Date of : 1945 Admit Type: Outpatient Age: 78 Room: OR 3 Gender: Male Note Status: Finalized Procedure: Upper GI endoscopy Indications: Dysphagia, achalasia Providers: Salena العلي MD (Doctor) Referring MD: Salena العلي MD Medicines: See the Anesthesia note for documentation of the administered medications Complications: No immediate complications. Procedure: Pre-Anesthesia Assessment: - ASA Grade Assessment: III - A patient with severe systemic disease. - See [facility] electronic record for H&P. After obtaining informed consent, the endoscope was passed under direct vision. All instruments were visually inspected immediately before and after removal from the patient to ensure they are fully intact. Throughout the procedure, the patient's blood pressure, pulse, and oxygen saturations were monitored continuously. The GIF-Q160 Endoscope ([id number]) was introduced through the mouth, and advanced to the second part of duodenum. The upper GI endoscopy was accomplished without difficulty. The patient tolerated the procedure well. Findings & Specimens: There was a small amount of fluid debris and respiratory in the esophagus. The esophagus was tortuous and mildly dilated, with multiple corkscrew tertiary contractions and pseudodiverticula. The LES was at 42 cm and was mildly snug to intubation. There was mild desquamation in the lower esophagus. No candidiasis or erosive esophagitis. Retroflexion was normal. The esophagus was normal. The duodenum was normal. A guidewire was placed and the scope was withdrawn. Dilation was performed at the gastroesophageal junction with a Savary dilator with moderate resistance at 18 mm. There was no mucosal disruption, but LES did appear more open post dilation. An area at the gastroesophageal junction was successfully injected with 100 units botulinum toxin. Impression: Exam suggestive of T3 achalasia. Botox injected LES. Salena العلي MD 02/03/2024 3:05:11 PM This report has been signed electronically. documented in this encounter Nursing Notes * Alban Goetz RN - 02/03/2024 2:40 PM EDT EGD completed with esophageal dilation and botox injection. Sedated by PROGRAM ARCHITECT. See anesthesia record for VS and medications given. Pt tolerated procedure well with minimal gagging. Abd soft. Airway patent. Pt to recovery on L side with HOB elevated. Report to PACU room nurse. Bedside cleaning done by Matteo Lee LPN. documented in this encounter Miscellaneous Notes * Pt Handout (on AVS) - Karen Garcia RN - 02/03/2024 3:08 PM EDT [id number] Discharge Instructions: Eating a Soft, [place] Diet You have been prescribed a soft, bland diet. This reduces the amount of work your digestive tract has to do. It also reduces the chance that your digestive tract will be irritated by the food you eat. A soft, bland diet is prescribed for people with digestive problems. This is different from a softdiet that is prescribed for people with issues chewing and swallowing. The diet you have been prescribed consists of foods that are tender, mildly seasoned, and easy to digest. While on this diet, don't eat fried or spicy foods, or raw fruits and vegetables. Also don't drink alcohol. General guidelines Eat in a calm, relaxed atmosphere. How you eat may be as important as what you eat. Don?t dubois while eating. Chew your food slowly and thoroughly, and swallow slowly. Eat small meals often throughout the day. But don?t eat 3 hours before lying down. Think about raising the head of your bed 6 or 9 inches. Wedge pillows let you sleep on an incline and may be helpful. Don't eat any foods that cause discomfort. Don?t use NSAIDs (nonsteroidal anti-inflammatory drugs), such as aspirin and ibuprofen. Also don't take medicine that contain aspirin. NSAIDs can cause ulcers and delay or prevent ulcer healing. Use antacids as needed. But keep in mind that magnesium-containing antacids may cause diarrhea. Don't smoke. Foods to eat Cream of wheat and cream of rice Cooked white rice Mashed potatoes and boiled potatoes without skin Plain pasta and noodles Plain white crackers (such as no-salt soda crackers) White bread Applesauce Cooked fruits without skins or seeds Mild juices, such as apple and grape Bananas Cooked or mashed vegetables without stems and seeds o Carrots o Summer squash (zucchini, yellow squash) o Winter squash (acorn, butternut, spaghetti squash) Cottage cheese Mild hard or soft cheeses Custard Yogurt without seeds or nuts Milk (you may need lactose-free milk) Ice cream without seeds, nuts, chocolate chips, or toppings Smooth peanut butter Eggs Fish, turkey, chicken, or other lean meat that is not tough or stringy Tofu Foods to stay away from Nuts and seeds Snack foods, such as the following: o Chocolate-containing snacks, candy, pastries, or cakes. o Potato chips (plain, barbecued, or other flavors) o Taco chips or nachos o [place] chips o Popcorn, popcorn cakes, or rice cakes o Crackers with nuts, seeds, or spicy seasonings o Urdu fries Fried or greasy foods Whole-grain breads, rolls, and crackers Breads and rolls with nuts, seeds, or bran Bran and granola cereals Berries with seeds, such as strawberries, raspberries, and blackberries Acidic fruits, such as oranges, grapefruits, sae, limes, and pineapples Raw vegetables Mild or hot peppers Sauerkraut and pickled vegetables Tomatoes or tomato products, such as tomato paste, tomato sauce, and tomato juice Barbecue sauce Spicy or flavored cheeses, such as jalapeo and black pepper cheese Crunchy peanut butter Dried cooked beans, such as ocampo, kidney, or navy beans The following meats: o Fried or greasy meats o Processed, spicy meats, such as sausage, garcia, ham, and lunch meats o Ribs and other meats with barbecue sauce o Tough or stringy meats, such as corned beef or beef jerky Drinks to stay away from Alcohol Coffee and regular teas Raven and other drinks with caffeine Cranberry, orange, pineapple, and grapefruit juice Lemonade Vegetable juice Whole milk, if you are lactose intolerant Peppermint Follow-up Follow up with your healthcare provider, or as advised. Last Reviewed Date: 07/20/202219995196-2193 [employer]. All rights reserved. This information is not intended as a substitute for professional medical care. Always follow your healthcare professional's instructions. documented in this encounter Plan of Treatment Upcoming Encounters Date Type Department Care Team (Late st Contact Info) Description 03/31/2024 12:30 PM EDT Laboratory Laboratory, [place] [address] [place] [address] [place] [address] [place] [address] 06/30/2024 1:00 PM EDT Cardiac Studies Cardiac Studies, [facility] [address] [facility] [place] [address] 09/15/2024 11:30 AM EST Telemedicine Cardiovascular Genetics, [facility] [address] [place] [address] Kayla Larson, [place] [address] [place] [address] Health Maintenance Due Date Last Done Comments [...] Procedure Name Priority Date/Time Associated Diagnosis Comments UPPER GI ENDOSCOPY 02/03/2024 2: 19 PM EDT PT INR STAT 02/03/2024 1:43 PM EDT documented in this encounter Results * UPPER GI ENDOSCOPY (02/03/2024 2:19 PM EDT) 02/03/2024 2:19 PM EDT Narrative Procedure Note Salena العلي MD - 02/03/2024 2:19 PM EDT [facility] Patient Name: Monster Samson Procedure Date: 02/03/2024 2:19 PM Date of : 1945 Admit Type: Outpatient Note Status:Finalized Date of : 1945 Admit Type: Outpatient Age: 78 Room: OR 3 Gender: Male Note Status: Finalized Procedure: Upper GI endoscopy Indications: Dysphagia, achalasia Providers: Salena العلي MD (Doctor) Referring MD: Salena العلي MD Medicines: See the Anesthesia note for documentation of theadministered medications Complications: No immediate complications. Procedure: Pre-Anesthesia Assessment: - ASA Grade Assessment: III - A patient with severesystemic disease. - See [facility] electronic record for H&P. After obtaining informed consent, the endoscope waspassed under direct vision. All instruments were visually inspected immediatelybefore and after removal from the patient to ensure they are fully intact. Throughoutthe procedure, the patient's blood pressure, pulse, and oxygen saturations weremonitored continuously. The GIF-Q160 Endoscope ([id number]) was introduced throughthe mouth, and advanced to the second part of duodenum. The upper GI endoscopy wasaccomplished without difficulty. The patient tolerated the procedure well. Findings & Specimens: There was a small amount of fluid debris and respiratory in theesophagus. The esophagus was tortuous and mildly dilated, with multiple corkscrew tertiary contractions andpseudodiverticula. The LES was at 42 cm and was mildly snug to intubation. There was mild desquamation in the lower esophagus. No candidiasis orerosive esophagitis. Retroflexion was normal. The esophagus was normal. The duodenum was normal. A guidewire was placed and the scope was withdrawn. Dilation wasperformed at the gastroesophageal junction with a Savary dilator with moderate resistance at 18 mm.There was no mucosal disruption, but LES did appear more open post dilation. An area at thegastroesophageal junction was successfully injected with 100 units botulinum toxin. Impression: Exam suggestive of T3 achalasia. Botox injectedLES. Salena العلي MD 02/03/2024 3:05:11 PM This report has been signed electronically. Salena العلي MD GASTRO UPPER * (ABNORMAL) PT INR (02/03/2024 1:43 PM EDT) Prothrombin Time 15.4(H) 11.6 - 15.2 seconds 02/03/2024 2:00 PM EDT LABORATORY GL INR 1.2 0.8 - 1.2 02/03/2024 2:00 PM EDT LABORATORY GL Blood Venous blood specimen / Unknown Venipuncture / Unknown 02/03/2024 1:43 PM EDT 02/03/2024 1:45 PM EDT Narrative LABORATORY [facility] - 02/03/2024 2:00 PM EDT Warfarin Therapy INR: 2.0-3.0 conventional anticoagulation INR: 2.5-3.5 high intensity anticoagulation Carlos Samson MD LAB BLOOD ORDERA BLES LABORATORY [facility] [address] [place] [address] documented in this encounter Visit Diagnoses Diagnosis Achalasia of esophagus- Primary Achalasia and cardiospasm documented in this encounter Administered Medications Inactive Administered Medications - up to 3 most recent administrations Medication Order MAR Action Action Date Dose Rate Site botulinum toxin type a (Botox) inj 100 Units 100 Units, Injection, ONCE, On Fri02/03/24 at 1415, For 1 dose, Prior to injection, reconstitute botox vial with PF sodium chloride 0.9% to desired concentration. WASTE INFO: Return waste medication to pharmacy in zip lock bag - SPLP container. Given 02/03/2024 2:15 PM EDT 100 Units NSS infusion Intravenous, at 10 mL/hr, CONTINUOUS, Starting on Fri02/03/24 at 1415, Until Fri02/03/24 at 2015 Restarted 02/03/2024 2:28 PM EDT Continue from Pre-Op 02/03/2024 2:10 PM EDT 10 mL/hr New Bag 02/03/2024 1:33 PM EDT 10 mL/hr documented in this encounter Active and Recently Administered Medications Times are shown in EDT. Scheduled Medication Order 02/01/2024 02/02/2024 02/03/2024 botulinum toxin type a (Botox) inj 100 Units (COMPLETED) 100 Units, Injection, ONCE, On Fri02/03/24 at 1415, For 1 dose, Prior to injection, reconstitute botox vial with PF sodium chloride 0.9% to desired concentration. WASTE INFO: Return waste medication to pharmacy in zip lock bag - SPLP container. 1415 (Given - Provid er: Alban Goetz RN) Continuous Medication Order 02/01/2024 02/02/2024 02/03/2024 NSS infusion Intravenous, at 10 mL/hr, CONTINUOUS, Starting on Fri02/03/24 at 1415, Until Fri02/03/24 at 2016 1333 (New Bag - Prov ider: Karen Garcia, DESTINI)1410 (Continue from Pre-Op - Provider: Janina Estrella CRNA)1427 (Paused - Provider: Janina Estrella CRNA - Comment: Switch to gravity)1428 (Restarted - Provider: Janina Estrella CRNA)1445 (Anes Intra-Op Fluid - Provider: Janina Estrella CRNA) documented in this encounter Care Teams Stock Cutter Relationship Specialty Start Date End Date Debbie Arango MD [address] [facility] [place] [address] PCP - General Internal Medicine 03/04/23 documented as of this encounter
--- OUTSIDE RECORDS SUMMARY | 2024-04-12 21:57 | External Medical Summary ---
Author Name Unknown Address Unknown Organization K01:LABORATORY [facility] [place] - [address] [facility] [address] Laboratory Report Ordering Provider Test Date Status LI LYONS 03/31/2024 11:42:10 Final Observation Date Value Abnormality Reference (Units ) Status BUN 03/31/2024 11:42:10 34 Above high normal 6-20 (mg/dL) Final Creatinine 03/31/2024 11:42:10 6.4 Above high normal 0.6-1.2 (mg/dL) Final Glomerular filtration rate/1.73 sq M.predicted [Volume Rate/Area] in Serum, Plasma or Blood by Creatinine-based formula (CKD-EPI) 03/31/2024 11:42:10 8 Below low normal >=60 (mL/min) Final eGFR is calculated based on the CKD-EPI 2020 equation Sodium 03/31/2024 11:42:10 135 135-146 (m mol/L) Final Potassium 03/31/2024 11:42:10 4.5 3.5-5.1 (m mol/L) Final Cl 03/31/2024 11:42:10 92 Below low normal 98- 107 (mmol/L) Final CO2 03/31/2024 11:42:10 21 Below low normal 22- 32 (mmol/L) Final Anion gap 03/31/2024 11:42:10 22 Above high normal 7- 15 (mmol/L) Final Glucose 03/31/2024 11:42:10 134 Above high normal 70 -120 (mg/dL) Final Albumin 03/31/2024 11:42:10 3.6 Below low normal 3.8 -5.0 (g/dL) Final AST (Aspartate aminotransferase) 03/31/2024 11:42:10 32 10-50 (U/L) Fin al Alk Phos 03/31/2024 11:42:10 80 35-130 (U/ L) Final Bilirubin, Total 03/31/2024 11:42:10 0.3 <=1 .2 (mg/dL) Final Calcium 03/31/2024 11:42:10 9.5 8.4-10.2 ( mg/dL) Final Protein 03/31/2024 11:42:10 5.9 Below low normal 6.0 -8.3 (g/dL) Final ALT (Alanine aminotransferase) 03/31/2024 11:42:10 52 Above high normal 10-50 (U/L) Final Performing Location LAB[facility]ATORY [facility] [place] - [address] [facility] [address]
--- OUTSIDE RECORDS SUMMARY | 2024-04-12 21:57 | External Medical Summary ---
Author Name Unknown Address Unknown Organization K01:LABORATORY [facility] [place] - [address] [facility] [address] [facility] [address] Laboratory Report Ordering Provider Test Date Status LI LYONS 03/31/2024 11:42:10 Final Observation Date Value Abnormality Reference (Units ) Status SYNC LEUKOCYTES IN BLOOD BY AUTOMATED COUNT 03/31/2024 11:42:10 10.24 4.00-10.80 (K/uL) Final Segs 03/31/2024 11:42:10 67.1 40.0-75.0 (%) Final Lymphs % 03/31/2024 11:42:10 14.1 Below low normal 18.0-42.0 (%) Final Monos 03/31/2024 11:42:10 10.5 1.0-11.0 (%) Final Eosinophils 03/31/2024 11:42:10 6.2 Above high normal 0.0-6.0 (%) Final Basos 03/31/2024 11:42:10 1.0 0.0-2.0 (%) Final Immature Granulocyte, Percent 03/31/2024 11:42:10 1.1 0.0-2.0 (%) Final Absolute Segs 03/31/2024 11:42:10 6.88 1.80-7.70 (K/uL) Final Lymphs, absolute 03/31/2024 11:42:10 1.44 1.00-4.80 (K/ul) Final Monos, Abs 03/31/2024 11:42:10 1.08 0.00-1.10 (K/uL) Final Eos, Abs 03/31/2024 11:42:10 0.63 0.00-0.70 (K/uL) Final Basos, Abs 03/31/2024 11:42:10 0.10 0.00-0.20 (K/uL) Final Immature Granulocytes, Number 03/31/2024 11:42:10 0.11 0.00-0.20 (K/uL) Final Performing Location LABORATORY [facility] [place] - [address] [facility] [address]
--- OUTSIDE RECORDS SUMMARY | 2024-04-12 21:57 | External Medical Summary | Summary of Care ---
Author Name Unknown Organization [facility] Address [address] [place] [address] Phone [phone] Care Team Providers Care Director Consumer Affairs Name Role Phone Debbie Arango MD Primary Care Provider Reason for Visit * Reason Onset Date Comments Advice 03/31/2024 Encounter Details Date Type Department Care Team (Late st Contact Info) Description 03/31/2024 Telephone Cardiology, [facility] [address] [facility] [address] Rick Tan, [address] [facility] [address] Advice Allergies No known active allergiesdocumented as of this encounter (statuses as of 04/06/2024) Medications Medication Sig Dispensed Refills Start Date [...] as of this encounter (statuses as of 04/06/2024) Active Problems Problem Noted Date Diagnosed Date CKD (chronic kidney disease) stage 5, GFR less than 15 ml/min 05/21/2023 Peripheral vascular disease with claudication HTN, goal below 130/80 05/21/2023 documented as of this encounter (statuses as of 04/06/2024) Social History Tobacco Use Types Packs/Day Years [...] Telephone Encounter - Sky Horowitz OSA - 04/06/2024 11:16 AM EDT Patient has been scheduled, thank you. * Telephone Encounter - Snow Lozada RN - 04/06/2024 10:53 AM EDT Sky, padilla now converted, should be able to schedule as per below. * Telephone Encounter - Sky Horowitz OSA - 04/01/2024 1:44 PM EDT Called patient, spoke with Ex , May 04 will work for [employer], at 3 pm thank you. * Telephone [...] you. * Telephone Encounter - Lenora Colunga, contact lens edge buffer - 03/31/2024 4:40 PM EDT Dyana (ec) is calling and [facility] She has an active referraland jaziel like an appt. Please call Dyana [phone] Thank you for your assistance Lenora Colunga Shoe Stainer II [facility] 03/31/2024,4:43 PM * Telephone Encounter - Nigel West LPN - 03/31/2024 4:12 PM EDT Called back and left a message. * Telephone Encounter - Madelin Batista OSA - 03/31/2024 3:59 PM EDT Person calling: Dyana Relationship to patient: ex Number to return call: [phone] Reason for call(brief): advice Pharmacy: Provider Name:Dominick Detailed message to office: Caller is requesting [...] EDT Office Visit Cardiology, [facility] [address] [address] Rick Tan DO [address] [address] 06/30/2024 1:00 PM EDT Cardiac Studies Cardiac Studies, [facility] [address] [address] 09/15/2024 11:30 AM EST Telemedicine Cardiovascular Genetics, [facility] [address] [address] Kyala Larson, [place] [address] [address] Health Maintenance Due Date Last Done Comments [...] filedocumented as of this encounter Care Teams Director Consumer Affairs Relationship Specialty Start Date End Date Debbie Arango MD [address] [facility] [address] [address] [address] PCP - General Internal Medicine 03/04/23 documented as of this encounter
--- OUTSIDE RECORDS SUMMARY | 2024-04-12 21:57 | External Medical Summary | Summary of Care ---
Author Name Unknown Organization [facility] Address [address] [place] [address] Phone [phone] Care Team Providers Care Jogger Operator Name Role Phone Debbie Arango MD Primary Care Provider Reason for Visit * Reason Onset Date Comments MyCode Nonconsent - Not interested at this time 03/31/2024 Encounter Details Date Type Department Care Team (Late st Contact Info) Description 03/31/2024 Orders Only Outcomes Research Department [address], [place] [id number] Marilee Peterson CHRA MyCode Nonconsent Documentation Allergies No known active allergiesdocumented as of this encounter (statuses as of 03/31/2024) Medications Medication Sig Dispensed Refills Start Date [...] as of this encounter (statuses as of 03/31/2024) Active Problems Problem Noted Date Diagnosed Date CKD (chronic kidney disease) stage 5, GFR less than 15 ml/min 05/21/2023 Peripheral vascular disease with claudication HTN, goal below 130/80 05/21/2023 documented as of this encounter (statuses as of 03/31/2024) Social History Tobacco Use Types Packs/Day Years [...] Progress Notes * Marilee Peterson CHRA - 03/31/2024 11:37 AM EDT Phillip Nonconsent Documentation [employer] Samson was approached in the clinic regarding participation in the [employer] and did not consent. documented in this encounter Plan of Treatment Upcoming Encounters Date Type Department Care Team (Late st Contact Info) Description 06/30/2024 1:00 PM EDT Cardiac Studies Cardiac Studies, [facility] [address] [place] [address] 09/15/2024 11:30 AM EST Telemedicine Cardiovascular Genetics, Ankit Razo [address] [place] [address] Kayla Larson Mae, [place] [address] [place] [address] Health Maintenance Due Date Last Done Comments [...] filedocumented as of this encounter Care Teams Jogger Operator Relationship Specialty Start Date End Date Debbie Arango MD [address] [facility] [place] [address] PCP - General Internal Medicine 03/04/23 documented as of this encounter
--- OUTSIDE RECORDS SUMMARY | 2024-04-12 21:57 | External Medical Summary | Summary of Care ---
Author Name Unknown Organization [facility] Address [address] [place] [address] Phone [phone] Care Team Providers Care Decorating Instructor Name Role Phone Debbie Arango MD Primary Care Provider Reason for Visit * Reason Onset Date Comments Appointment 01/26/2024 Encounter Details Date Type Department Care Team (Late st Contact Info) Description 01/26/2024 Telephone Gastroenterology, [facility] [address] [facility] [place] [address] Salena العلي MD [address] [facility] [place] [address] Appointment Allergies No known active allergiesdocumented as of this encounter (statuses as of 03/11/2024) Medications Medication Sig Dispensed Refills Start Date [...] as of this encounter (statuses as of 03/11/2024) Active Problems Problem Noted Date Diagnosed Date CKD (chronic kidney disease) stage 5, GFR less than 15 ml/min 05/21/2023 Peripheral vascular disease with claudication HTN, goal below 130/80 05/21/2023 documented as of this encounter (statuses as of 03/11/2024) Social History Tobacco Use Types Packs/Day Years [...] encounter Miscellaneous Notes * Telephone Encounter - Vania Pittman OSA - 03/11/2024 2:47 PM EDT I know we are just stating with Motility study yet. Patient needs to be done also. Please place person a list. Thank you. * Telephone Encounter - Vania Pittman OSA - 01/26/2024 2:00 PM EDT Pt needs a motility Study. Please call patient to set up. documented in this encounter Plan of Treatment Upcoming Encounters Date Type Department Care Team (Late st Contact Info) Description 03/31/2024 12:30 PM EDT Laboratory Laboratory, [place] [address] [facility] [address] [place] [address] [facility] [address] 06/30/2024 1:00 PM EDT Cardiac Studies Cardiac Studies, [facility] [address] [place] [address] 09/15/2024 11:30 AM EST Telemedicine Cardiovascular Genetics, [facility] [address] [place] [address] Kayla Larson, [place] [address] [place] [address] Health Maintenance Due Date Last Done Comments [...] filedocumented as of this encounter Care Teams Decorating Instructor Relationship Specialty Start Date End Date Debbie Arango MD [address] [facility] [place] [address] PCP - General Internal Medicine 03/04/23 documented as of this encounter
--- OUTSIDE RECORDS SUMMARY | 2024-04-12 21:57 | External Medical Summary | Summary of Care ---
Author Name Unknown Organization [facility] Address [address] [place] [address] Phone [phone] Care Team Providers Care Patent Engineer Name Role Phone Debbie Arango MD Primary Care Provider Reason for Visit * Reason Onset Date Comments Advice 03/10/2024 Encounter Details Date Type Department Care Team (Late st Contact Info) Description 03/10/2024 Telephone Nephrology, [facility] [place] [address] [place] [address] Teena Galvan MD [address] [place] [address] Advice Allergies No known active allergiesdocumented as of this encounter (statuses as of 03/10/2024) Medications Medication Sig Dispensed Refills Start Date [...] as of this encounter (statuses as of 03/10/2024) Active Problems Problem Noted Date Diagnosed Date CKD (chronic kidney disease) stage 5, GFR less than 15 ml/min 05/21/2023 Peripheral vascular disease with claudication HTN, goal below 130/80 05/21/2023 documented as of this encounter (statuses as of 03/10/2024) Social History Tobacco Use Types Packs/Day Years [...] encounter Miscellaneous Notes * Telephone Encounter - Stefanie Gasca RN - 03/10/2024 4:28 PM EDT Te with pt's . Pt was seen by Deirdre ECHEVARRIA at the [facility].. Pt is having some shortness of breath on exertion and the provider was concerned due to recent hx of pulmonaryembolism. Dr Galvan was notified by this nurse. Her message states:As a peritoneal dialysis patient, he is dependent onresidual renal function for example,he still makes urine and we need that small amount of kidney function that he has left.CT contrast would likely kill off what kidney function he has left. IF worried about Pulmonary Embolism,recommend a VQ scan and trans thoracic Echo. If symptomatic go to ER for evaluation. updated as well as Deirdre Sauceda at [place]. * Telephone Encounter - Brigida June OSA - 03/10/2024 3:55 PM EDT Pcp wants to do a Chest CT with contrast. Before the test can be completed needed to verify with the nephrology dr Test is tomorrow If doesn't answer please call right back. documented in this encounter Plan of Treatment Upcoming Encounters Date Type Department Care Team (Late st Contact Info) Description 03/31/2024 12:30 PM EDT Laboratory Laboratory, [place] [address] [place] [address] [place], Laboratory [address] [place] [address] 06/30/2024 1:00 PM EDT Cardiac Studies Cardiac Studies, [facility] [address] [facility] [place] [address] 09/15/2024 11:30 AM EST Telemedicine Cardiovascular Genetics, [facility] [place] [address] Kayla Larson, [place] [address] [place] [address] Health Maintenance Due Date Last Done Comments Depression Screening 1957 DTaP,Tdap,and Td Vaccines (1 - Tdap) 1965 COVID-19 Vaccine (1 - 2022-2 4 season) 2023 Influenza Vaccine [...] filedocumented as of this encounter Care Teams Patent Engineer Relationship Specialty Start Date End Date Debbie Arango MD [address] [facility] [address] [address] [address] PCP - General Internal Medicine 03/04/23 documented as of this encounter
--- OUTSIDE RECORDS SUMMARY | 2024-04-12 21:57 | External Medical Summary ---
Author Name Unknown Address Unknown Organization K01:[place] [place] - [facility] [address] [facility] [address] Laboratory Report Ordering Provider Test Date Status LI LYONS 03/31/2024 11:42:10 Final Observation Date Value Abnormality Reference (Units) Status PARAPROTEIN NORMAL/ABNORMAL 11:42:10 Abnormal Abnormal Normal Final Protein 11:42:10 5.9 Below low normal 6.0-8.3 (g/dL) Final Albumin/Protein.total [Pure mass fraction] in Serum or Plasma by Electrophoresis 11:42:10 2.68 Below low normal 3.30-4.40 (g/dL) Final Alpha 1 globulin/Protein.tota l [Pure mass fraction] in Serum or Plasma by Electrophoresis 11:42:10 0.24 0.10-0.30 (g/dL) Final Alpha 2 globulin/Protein.tota l [Pure mass fraction] in Serum or Plasma by Electrophoresis 11:42:10 1.13 Above high normal 0.60-1.00 (g/dL) Final Beta globulin/Protein.tota l [Pure mass fraction] in Serum or Plasma by Electrophoresis 11:42:10 0.75 Below low normal 0.80-1.30 (g/dL) Final Gamma globulin/Protein.tota l [Pure mass fraction] in Serum or Plasma by Electrophoresis 11:42:10 1.10 0.70-1.70 (g/dL) Final Protein Fractions [Interpretation] in Serum or Plasma by Electrophoresis Narrative 11:42:10 Abnormal. A paraprotein is present that has been previously identified as a monoclonal IgG lambda. Paraprotein concentration is detectable, but less than 0.5 g/dL, unable to be accurately quantified by this method. Final Performing Location LAB[facility]ORY [facility] [place] - [address] [facility] [facility] [address]
--- OUTSIDE RECORDS SUMMARY | 2024-04-12 21:57 | External Medical Summary | Summary of Care ---
Author Name Unknown Organization [facility] Address [address] [place] [address] Phone [phone] Care Team Providers Care Wire Drawer Name Role Phone Debbie Arango MD Primary Care Provider Reason for Visit * Reason Onset Date Comments Medication Question 02/05/2024 Encounter Details Date Type Department Care Team (Late st Contact Info) Description 02/05/2024 Telephone Access Center, [place] [address] [facility] *DO NOT REMOVE THIS DEPARTMENT* [place] [address] Services, Scheduling [address] [place] [address] Medication Question Allergies No known active allergiesdocumented [...] Salena العلي MD Walker, Natalie A, RN; [facility] Scheduling/Referral Pool/[id number] ago (5:52 PM) I spoke to his [...] just need clarification. Please call Georgie at [phone] Ext [phone]. She will be there until 4:00 today. documented in this encounter Plan of Treatment Upcoming Encounters Date Type Department Care Team (Late st Contact Info) Description 03/31/2024 12:30 PM EDT Laboratory Laboratory, [place] [address] [facility] [address] [place], Laboratory [address] [place] [facility] [place] [address] 06/30/2024 1:00 PM EDT Cardiac Studies Cardiac Studies, [facility] [address] [facility] [place] [address] 09/15/2024 11:30 AM EST Telemedicine Cardiovascular Genetics, [facility] [address] [address] Reuben[address]arinad[address] Kayla Benton, [place] [address] [address] Health Maintenance Due Date Last Done Comments [...] filedocumented as of this encounter Care Teams Wire Drawer Relationship Specialty Start Date End Date Debbie Arango MD [address] [facility] [place] [address] PCP - General Internal Medicine 03/04/23 documented as of this encounter
--- OUTSIDE RECORDS SUMMARY | 2024-04-12 21:57 | External Medical Summary ---
Author Name Unknown Address Unknown Organization K01:[facility]ATORY [facility] [place] [facility] [place] [address] Laboratory Report Ordering Provider Test Date Status LI LYONS 03/31/2024 11:42:10 Final Observation Date Value Abnormality Reference (Units ) Status Costilla light chains, Free, Serum 03/31/2024 11:42:10 119.60 Above high normal 3.30-19.40 (mg/L) Final Lambda light chains, free, Serum 03/31/2024 11:42:10 117.88 Above high normal 5.71-26.30 (mg/L) Final KAPPA LAMBDA FLC RATIO 03/31/2024 11:42:10 1.01 0.26-1.65 Final Performing Location LAB[facility]ATORY [facility] [place] - [facility] [place] [address]
--- OUTSIDE RECORDS SUMMARY | 2024-04-12 21:57 | External Medical Summary ---
Author Name Unknown Address Unknown Organization K01:LABORATORY [facility] [place] - [facility] [place] [address] Laboratory Report Ordering Provider Test Date Status LI LYONS 03/31/2024 11:42:10 Final Observation Date Value Abnormality Reference (Units ) Status WBC, Total 03/31/2024 11:42:10 10.24 4.00-10.80 (K/uL) Final RBC 03/31/2024 11:42:10 4.51 4.50-5.25 (M/uL) Final Hemoglobin 03/31/2024 11:42:10 13.4 Below low normal 14.0-16.8 (g/dL) Final HCT 03/31/2024 11:42:10 40.8 40.0-48.4 (%) Final MCV 03/31/2024 11:42:10 90.5 82.0-99.5 (fL) Final MCH 03/31/2024 11:42:10 29.7 27.0-34.0 (pg) Final MCHC 03/31/2024 11:42:10 32.8 32.0-36.0 (g/dL) Final RDW 03/31/2024 11:42:10 15.7 11.5-15.5 (%) Final Platelets 03/31/2024 11:42:10 327 140-400 (K/uL) Final MPV 03/31/2024 11:42:10 10.8 6.6-11.1 (fL) Final Nucleated erythrocytes/100 leukocytes [Ratio] in Blood by Automated count 03/31/2024 11:42:10 0 <=0 (/100 WBCs) Final Performing Location LAB[facility]ORY [facility] [place] [address] [place] [address]
--- OUTSIDE RECORDS SUMMARY | 2024-04-12 21:57 | External Medical Summary | Summary of Care ---
Author Name Unknown Organization [facility] Address [address] [place] [address] Phone [phone] Care Team Providers Care Rpg Programmer Name Role Phone Debbie Arango MD Primary Care Provider Reason for Visit * Reason Comments Outpatient Testing Encounter Details Date Type Department Care Team (Late st Contact Info) Description 03/31/2024 11:40 AM EDT Laboratory Laboratory, [place] [address] [place] [id number] [place], Laboratory [address] [place], [place] [id number] MGUS (monoclonal gammopathy of unknown significance) Allergies No known active allergiesdocumented as of [...] 1:00 PM EDT Cardiac Studies Cardiac Studies, [address] [place] [id number] 09/15/2024 11:30 AM EST Telemedicine Cardiovascular Genetics, Ankit Razo [address] [address] Kayla Larson, [place] [address] [place] [address] Pending Results Name Type Priority Associated Diagnoses Date /Time CBC WITH WBC DIFFERENTIAL Lab Routine MGUS (monoclonal gammopathy of unknown significance) 03/31/2024 11:42 AM EDT COMPREHENSIVE METABOLIC PANEL Lab Routine MGUS (monoclonal gammopathy of unknown significance) 03/31/2024 11:42 AM EDT IMMUNOGLOBULIN QUANTITATIVE Lab Routine MGUS (monoclonal gammopathy of unknown significance) 03/31/2024 11:42 AM EDT SERUM FREE LIGHT CHAINS Lab Routine MGUS (monoclonal gammopathy of unknown significance) 03/31/2024 11:42 AM EDT SERUM PROTEIN ELECTROPHORESIS REFLEX PROFILE Lab Routine MGUS (monoclonal gammopathy of unknown significance) 03/31/2024 11:42 AM EDT CBC Lab Routine MGUS (monoclonal gammopathy of unknown significance) 03/31/2024 11:42 AM EDT DIFFERENTIAL, AUTOMATED Lab Routine MGUS (monoclonal gammopathy of unknown significance) 03/31/2024 11:42 AM EDT Health Maintenance Due Date Last Done [...] as of this encounter Visit Diagnoses Diagnosis MGUS (monoclonal gammopathy of unknown significance) Monoclonal paraproteinemia documented in this encounter Care Teams Rpg Programmer Relationship Specialty Start Date End Date Debbie Arango MD [address] [facility] [address] [address] PCP - General Internal Medicine 03/04/23 documented as of this encounter
--- OUTSIDE RECORDS SUMMARY | 2024-04-12 21:57 | External Medical Summary | Summary of Care ---
Author Name Unknown Organization [facility] Address [address] [place] [address] Phone [phone] Care Team Providers Care Food Cashier Name Role Phone Debbie Arango MD Primary Care Provider Reason for Visit * Reason Onset Date Comments Referral 01/23/2024 Encounter Details Date Type Department Care Team (Late st Contact Info) Description 01/23/2024 Telephone Cardiovascular Genetics, [facility] [address] [place], [place] [id number] Services, Scheduling [address] [place] [address] Referral Allergies No known active allergiesdocumented as of this encounter (statuses as of 01/23/2024) Medications Medication Sig Dispensed Refills Start Date [...] as of this encounter (statuses as of 01/23/2024) Active Problems Problem Noted Date Diagnosed Date CKD (chronic kidney disease) stage 5, GFR less than 15 ml/min 05/21/2023 Peripheral vascular disease with claudication HTN, goal below 130/80 05/21/2023 documented as of this encounter (statuses as of 01/23/2024) Social History Tobacco Use Types Packs/Day Years [...] encounter Miscellaneous Notes * Telephone Encounter - Camilla Apple OSA - 01/23/2024 12:39 PM EDT Referral requested/sent via [employer]. documented in this encounter Plan of Treatment Upcoming Encounters Date Type Department Care Team (Latest Contact Info) Description 02/03/2024 2:00 PM EDT Hospital Encounter OR GL, Operating Room, [facility] - 4th Floor [address] [place] [address] Salena العلي MD [address] [place] [address] 02/03/2024 2:00 PM EDT - 02/03/2024 2:59 PM EDT Surgery OR [facility], Operating Room, [facility] - 4th Floor [address] [place] [address] Salena العلي MD [address] [place] [address] ESOPHAGOGASTRODUODENOSCOPY (EGD), FLEXIBLE, TRANSORAL, DIAGNOSTIC 03/31/2024 12:30 PM EDT Laboratory Laboratory, [place] [address] [place] [address] [place], Laboratory [address] [place] [address] 06/30/2024 1:00 PM EDT Cardiac Studies Cardiac Studies, [facility] 132 [facility] [place] [address] 09/15/2024 11:30 AM EST Telemedicine Cardiovascular Genetics, [facility] [place] [address] Kayla Larson, [place] [address] [place] [address] Scheduled Procedures Name Priority Associated Diagnoses Date/Ti me ESOPHAGOGASTRODUODENOSCOPY ( EGD), FLEXIBLE, TRANSORAL, DIAGNOSTIC Dysphagia 02/03/2024 2:00 PM EDT INJECTION, ONABOTULINUMTOXIN A, 1 UNIT (BOTOX) Dysphagia 02/03/2024 2:00 PM EDT Health Maintenance Due Date Last [...] filedocumented as of this encounter Care Teams Food Cashier Relationship Specialty Start Date End Date Debbie Arango MD [address] [facility] [place] [address] PCP - General Internal Medicine 03/04/23 documented as of this encounter
--- OUTSIDE RECORDS SUMMARY | 2024-04-12 21:57 | External Medical Summary | Summary of Care ---
Author Name Unknown Organization [facility] Address [address] [place] [address] Phone [phone] Care Team Providers Care Manufacturing Clerk Name Role Phone Debbie Arango MD Primary Care Provider Encounter Details Date Type Department Care Team (Late st Contact Info) Description 01/13/2024 Telephone Gastroenterology, [facility] [address] [place] [address] Adriana Paulson CRNP [address] [place] [address] Allergies No known active allergiesdocumented as of this encounter (statuses as of 01/15/2024) Medications Medication Sig Dispensed Refills Start Date [...] as of this encounter (statuses as of 01/15/2024) Active Problems Problem Noted Date Diagnosed Date CKD (chronic kidney disease) stage 5, GFR less than 15 ml/min 05/21/2023 Peripheral vascular disease with claudication HTN, goal below 130/80 05/21/2023 documented as of this encounter (statuses as of 01/15/2024) Social History Tobacco Use Types Packs/Day Years [...] Miscellaneous Notes * Telephone Encounter - Amanda Berry OSA - 01/15/2024 3:56 PM EDT Lmm to schedule phone call at [address] العلي. * Telephone Encounter - Amanda Berry OSA - 01/15/2024 12:56 PM EDT Spoke to pt's , states she is unsure as to what procedure is to be scheduled for pt. She statesanother ramses office told her that GI had been [...] procedure up she can be reached at [phone] Thanks documented in this encounter Plan of Treatment Upcoming Encounters Date Type Department Care Team (Late st Contact Info) Description 03/31/2024 12:30 PM EDT Laboratory Laboratory, [place] [address] [place] [phone] [place] [address] [place] [address] 06/30/2024 1:00 PM EDT Cardiac Studies Cardiac Studies, [facility] 132 [facility] [place] [address] Health Maintenance Due Date Last Done Comments [...] filedocumented as of this encounter Care Teams Manufacturing Clerk Relationship Specialty Start Date End Date Debbie Arango MD [address] [facility] [place] [address] PCP - General Internal Medicine 03/04/23 documented as of this encounter
--- OUTSIDE RECORDS SUMMARY | 2024-04-12 21:57 | External Medical Summary ---
Author Name Unknown Address Unknown Organization K01:[facility] [place] - [address] [facility] [address] Laboratory Report Ordering Provider Test Date Status MERLIN AGUILAR 04/07/2024 15:35:46 Final Plasma norepinephrine to go to [facility] >> test code [id number] Observation Date Value Abnormality Reference (Units ) Status COMMENT 04/07/2024 15:35:46 Laboratory testing ordered. Final COMMENT 04/07/2024 15:35:46 Final COMMENT 04/07/2024 15:35:46 Patient can now be collected. Final COMMENT 04/07/2024 15:35:46 Final COMMENT 04/07/2024 15:35:46 Approve this testing as requested.[facility] #[id number] Final COMMENT 04/07/2024 15:35:46 This non-formulary test request was reviewed by Tony Germain MD. Final Performing Location LAB[facility] [place] - [address] [facility] [address]
--- OUTSIDE RECORDS SUMMARY | 2024-04-12 21:57 | External Medical Summary | Summary of Care ---
Author Name Unknown Organization [facility] Address [address] [place] [address] Phone [phone] Care Team Providers Care Oven Baker Name Role Phone Debbie Arango MD Primary Care Provider Reason for Visit * Reason Onset Date Comments Advice 03/31/2024 Encounter Details Date Type Department Care Team (Late st Contact Info) Description 03/31/2024 Telephone Cardiology, [facility] [address] [facility] [address] Rick Tan, [address] [facility] [address] Advice Allergies No known active allergiesdocumented as [...] encounter Miscellaneous Notes * Telephone Encounter - Snow Lozada RN - 04/06/2024 10:53 AM EDT padilla Swanson now mona, should be able to schedule as per [...] you. * Telephone Encounter - Lenora Colunga, executive producer - 03/31/2024 4:40 PM EDT Dyana () is calling and [facility]. She has an active referraland jaziel like an appt. Please call Dyana [phone] Thank you for your assistance Lenora Colunga Tobacco Packer II [facility] 03/31/2024,4:43 PM * Telephone Encounter - Nigel West LPN - 03/31/2024 4:12 PM EDT Called back and left a message. * Telephone Encounter - Madelin Batista OSA - 03/31/2024 3:59 PM EDT Person calling: Dyana Relationship to patient: ex Number to return call: [phone] Reason for call(brief): advice Pharmacy: Provider Name:Dominick [...] 1:00 PM EDT Cardiac Studies Cardiac Studies, [facility] [address] [place] [address] 09/15/2024 11:30 AM EST Telemedicine Cardiovascular Genetics, [facility] [address] [place] [address] Kayla Larson, [place] [address] [place] [address] Health Maintenance Due Date Last Done Comments [...] filedocumented as of this encounter Care Teams Oven Baker Relationship Specialty Start Date End Date Debbie Arango MD [address] [facility] [place] [address] PCP - General Internal Medicine 03/04/23 documented as of this encounter
--- OUTSIDE RECORDS SUMMARY | 2024-04-12 21:57 | External Medical Summary | Summary of Care ---
Author Name Unknown Organization [facility] Address [address] [place] [address] Phone [phone] Care Team Providers Care Sales Director Name Role Phone Debbie Arango MD Primary Care Provider Encounter Details Date Type Department Care Team (Late st Contact Info) Description 01/30/2024 Telephone ENDO GE, Endoscopy [address] [facility] [address] [place] [address] Salena العلي MD [address] [place] [address] Allergies No known active allergiesdocumented as of this encounter (statuses as of 01/30/2024) Medications Medication Sig Dispensed Refills Start Date [...] as of this encounter (statuses as of 01/30/2024) Active Problems Problem Noted Date Diagnosed Date CKD (chronic kidney disease) stage 5, GFR less than 15 ml/min 05/21/2023 Peripheral vascular disease with claudication HTN, goal below 130/80 05/21/2023 documented as of this encounter (statuses as of 01/30/2024) Social History Tobacco Use Types Packs/Day Years [...] encounter Miscellaneous Notes * Telephone Encounter - Lia Arceo RN - 01/30/2024 4:[address] Balbuena (anesthesia) reviewed chart for EGD 02/03/24. TT sent to Gladys Little RN that Monster has been cleared for his surgery and will not need further cardiac workup prior to this procedure. documented in this encounter Plan of Treatment Upcoming Encounters Date Type Department Care Team (Latest Contact Info) Description 02/03/2024 2:00 PM EDT Hospital Encounter OR [facility], Operating Room, [facility] - 4th Floor [address] [place] [address] Salena العلي MD [address] [place] [address] 02/03/2024 2:00 PM EDT - 02/03/2024 2:59 PM EDT Surgery OR [facility], Operating Room, [facility] Floor [address] [facility] [place] [address] Salena العلي MD [address] [place], [place] [address] ESOPHAGOGASTRODUODENOSCOPY (EGD), FLEXIBLE, TRANSORAL, DIAGNOSTIC 03/31/2024 12:30 PM EDT Laboratory Laboratory, [address] [phone] [place], Laboratory [address] [place] [address] 06/30/2024 1:00 PM EDT Cardiac Studies Cardiac Studies, [facility] [address] [place] [address] 09/15/2024 11:30 AM EST Telemedicine Cardiovascular Genetics, [facility] [address] [place] [address] Kayla Larson, MS [address] [place] [address] Scheduled Procedures Name Priority Associated Diagnoses Date/Ti [...] filedocumented as of this encounter Care Teams Sales Director Relationship Specialty Start Date End Date Debbie Arango MD [address] [place] [address] [place] [address] PCP - General Internal Medicine 03/04/23 documented as of this encounter
--- OUTSIDE RECORDS SUMMARY | 2024-04-12 21:57 | External Medical Summary ---
Author Name Unknown Address Unknown Organization K01:[facility]ORY [facility] [place] - [address] [place] [address] Laboratory Report Ordering Provider Test Date Status LI LYONS 03/31/2024 11:42:10 Final Observation Date Value Abnormality Reference (Units ) Status IgG 03/31/2024 11:42:10 [id number] ( mg/dL) Final IgA 03/31/2024 11:42:10 166 70-400 (mg /dL) Final IgM 03/31/2024 11:42:10 161 40-230 (mg /dL) Final Performing Location LABORATORY C - [address] [place] [address]
--- OUTSIDE RECORDS SUMMARY | 2024-04-12 21:57 | External Medical Summary | Summary of Care ---
Author Name Unknown Organization [facility] Address [address] [place] [address] Phone [phone] Care Team Providers Care Kennel Operator Name Role Phone Debbie Arango MD Primary Care Provider Encounter Details Date Type Department Care Team (Late st Contact Info) Description 01/22/2024 Telephone Gastroenterology, [facility] 132 [facility] [place] [address] Salena العلي MD 132 [facility] [place] [address] Allergies No known active allergiesdocumented as of this encounter (statuses as of 01/22/2024) Medications Medication Sig Dispensed Refills Start Date [...] as of this encounter (statuses as of 01/22/2024) Active Problems Problem Noted Date Diagnosed Date CKD (chronic kidney disease) stage 5, GFR less than 15 ml/min 05/21/2023 Peripheral vascular disease with claudication HTN, goal below 130/80 05/21/2023 documented as of this encounter (statuses as of 01/22/2024) Social History Tobacco Use Types Packs/Day Years [...] encounter Miscellaneous Notes * Telephone Encounter - Vale Gordon OSA - 01/22/2024 10:51 AM EDT Egd w/ botox akhil'd at [facility] OR 02/03/24 * Telephone Encounter - Vale Gordon OSA - 01/22/2024 10:50 AM EDT ----- Message from Salena العلي MD sent at 01/21/2024 4:00 PM EDT ----- For this pt -- He will need EGD with Botox. THere has been some confusion about his anticoag, but he will need to hold his ac and possibly bridged with Lovenox. documented in this encounter Plan of Treatment Upcoming Encounters Date Type Department Care Team (Latest Contact Info) Description 02/03/2024 2:00 PM EDT Hospital Encounter OR [facility], Operating Room, [facility] - 4th Floor 400 [facility] [place] [address] Salena العلي MD [facility] [address] 02/03/2024 2:00 PM EDT - 02/03/2024 2:59 PM EDT Surgery OR [facility], Operating Room, [facility] - 4th Floor [address] [facility] [place] [address] Salena العلي MD [address] [facility] [place] [address] ESOPHAGOGASTRODUODENOSCOPY (EGD), FLEXIBLE, TRANSORAL, DIAGNOSTIC 03/31/2024 12:30 PM EDT Laboratory Laboratory, [place] [address] [place] [address] [place], Laboratory [address] [place] [address] 06/30/2024 1:00 PM EDT Cardiac Studies Cardiac Studies, [facility] [address] [place] [address] Scheduled Procedures Name Priority Associated Diagnoses Date/Ti [...] filedocumented as of this encounter Care Teams Kennel Operator Relationship Specialty Start Date End Date Debbie Arango MD [address] [facility] [place] [address] PCP - General Internal Medicine 03/04/23 documented as of this encounter
--- OUTSIDE RECORDS SUMMARY | 2024-04-12 21:57 | External Medical Summary | Summary of Care ---
Author Name Unknown Organization [facility] Address [address] [place] [address] Phone [phone] Care Team Providers Care Independent Living Specialist Name Role Phone Debbie Arango MD Primary Care Provider Reason for Visit * Reason Onset Date Comments Advice 02/04/2024 Dominick Encounter Details Date Type Department Care Team (Late st Contact Info) Description 02/04/2024 Telephone Cardiology, [facility] [address] [place] [address] Rick Tan DO [address] [place] [address] Advice (Dominick) Allergies No known active allergiesdocumented as of this encounter (statuses as of 02/09/2024) Medications Medication Sig Dispensed Refills Start Date [...] as of this encounter (statuses as of 02/09/2024) Active Problems Problem Noted Date Diagnosed Date CKD (chronic kidney disease) stage 5, GFR less than 15 ml/min 05/21/2023 Peripheral vascular disease with claudication HTN, goal below 130/80 05/21/2023 documented as of this encounter (statuses as of 02/09/2024) Social History Tobacco Use Types Packs/Day Years [...] Miscellaneous Notes * Telephone Encounter - Snow Silva CMA - 02/09/2024 9:41 AM EDT Spoke with John at the MD. He reviewed patient's notes and said whatever was needed was already obtained by others on the team. Nothing else needed from them at this point in time. * Telephone Encounter - Snow Lozada RN - 02/06/2024 2:13 PM EDT Called, left message for John at the MD to return call. Upon return call, need to obtain reason for cardiac clearance as no mention of upcoming procedure in 12/03/23 office note. * Telephone Encounter - Rsoio Doss OSA - 02/04/2024 3:04 PM EDT Person calling: John/[facility] Relationship to patient: MD Number to return call: [phone] Reason for call: John is calling to request cardiac clearance and visit notes for pt. Please advise.Thank you Pharmacy: Provider Name:Dominick documented in this encounter Plan of Treatment Upcoming Encounters Date Type Department Care Team (Late st Contact Info) Description 03/31/2024 12:30 PM EDT Laboratory Laboratory, [place] [address] [place] [address] [place] [address] [place] [address] 06/30/2024 1:00 PM EDT Cardiac [facility] 132 [facility] [place] [address] 09/15/2024 11:30 AM EST Telemedicine Cardiovascular Genetics, [facility] [address] [facility] [place] [address] Kayla Larson, [place] 132 [facility] [place] [address] Health Maintenance Due Date Last Done Comments [...] filedocumented as of this encounter Care Teams Independent Living Specialist Relationship Specialty Start Date End Date Debbie Arango MD [address] [facility] [place] [address] PCP - General Internal Medicine 03/04/23 documented as of this encounter
--- OUTSIDE RECORDS SUMMARY | 2024-04-12 21:57 | External Medical Summary | Summary of Care ---
Author Name Unknown Organization [facility] Address [address] [place] [address] Phone [phone] Care Team Providers Care Barrel Dedenting Machine Operator Name Role Phone Debbie Arango MD Primary Care Provider Reason for Visit * Reason Onset Date Comments Advice 03/31/2024 Encounter Details Date Type Department Care Team (Late st Contact Info) Description 03/31/2024 Telephone Cardiology, [facility] [address] [facility] [address] Rick Tan, [address] [facility] [address] Advice Allergies No known active allergiesdocumented as [...] Horowitz OSA - 04/01/2024 1:29 PM EDT Snow I have with Dr. Chi on: all of the CLOS RET slots at 3 pm thank you. * Telephone Encounter - Lenora Colunga, stage rigger - 03/31/2024 4:40 PM EDT Dyana (kirsten) is calling and she [facility]. She has an active referraland jaziel like an appt. Please call Dyana [phone] Thank you for your assistance Lenora Colunga Data Processing Clerk II [facility] 03/31/2024,4:43 PM * Telephone Encounter - Nigel West LPN - 03/31/2024 4:12 PM EDT Called back and left a message. * Telephone Encounter - Madelin Batista OSA - 03/31/2024 3:59 PM EDT Person calling: Dyana Relationship to patient: ex Number to return call: [phone] Reason for call(brief): advice Pharmacy: Provider Name:Dominick [...] 1:00 PM EDT Cardiac Studies Cardiac Studies, [address] [place] [address] 09/15/2024 11:30 AM EST Telemedicine Cardiovascular Genetics, [facility] [address] [place] [address] Kayla Larson, [place] [address] [place] [address] Health Maintenance Due Date Last Done Comments [...] filedocumented as of this encounter Care Teams Barrel Dedenting Machine Operator Relationship Specialty Start Date End Date Debbie Arango MD [address] [facility] [place] [address] PCP - General Internal Medicine 03/04/23 documented as of this encounter
--- OUTSIDE RECORDS SUMMARY | 2024-04-12 21:57 | External Medical Summary | Summary of Care ---
Author Name Unknown Organization [facility] Address [address] [place] [address] Phone [phone] Care Team Providers Care Trolley Operator Name Role Phone Debbie Arango MD Primary Care Provider Encounter Details Date Type Department Care Team (Late st Contact Info) Description 01/15/2024 4:45 PM EDT Telemedicine Gastroenterology, [facility] [address] [place] [address] Salena العلي MD [address] [place] [address] Dysphagia, unspecified type* Allergies No known active allergiesdocumented as of [...] as of this encounter Progress Notes * Salena العلي MD - 01/15/2024 4:41 PM EDT After connecting to the patient via telephone, the patient was identified by name and date of . Patient was then informed that this was a telephone call only visit. The patient agreed to participate. Visit Disposition: Routine follow-up Total call duration was 15 minutes. HPI: 78 year old male with dysphagia and incontinence. Notes dysphagia to mid chest. Only to solids, can tolerate liquids and soft diet without difficulty. Occurs frequently but has not changed diet. First occurrued 10 years ago -- told that he had a stricture, not dilated, symptoms resolved. Symptoms recurred 3 years prior, may be occurring more often recently. No pyrosis, or regurgitation. No cough with PO, drooling. No cough when lying down. Denies chronic cough. He also has explosive diarrhea for about a year. Describes sudden onset of urge to have a BM, followed by large volume episode of incontinence. This occurs once every few days. No rectal bleeding. On peritoneal dialysis, on stool softeners. Has intermittent constipation. No recent colonoscopy. 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 01/10 Phone visit: Pt with timed esophagram which shows marked esophageal retention, persistent barium at 10 cm. Spoke to - pt with stable dysphagia. He is on soft diet, occasionally has episodesof dysphagia without regurgitation or aspiration. ALLERGIES: Review of patient's allergies indicates: No Known Allergies No past medical history on file. No past surgical history on file. No family history on file. Social History Socioeconomic History Marital status: Tobacco Use Smoking status: Former Types: Cigars Smokeless tobacco: Never Tobacco comments: 3-4 Cigars per day Vaping Use Vaping Use: Never used Substance and Sexual Activity Alcohol use: Yes Comment: 4 mixed drinks per week Drug use: Never Current Outpatient Medications Medication Sig Dispense Refill Nutra/Shake Oral Liquid TAKE ONE BY MOUTH EVERY DAY TO SUPPLEMENT NUTRIENT INTAKE Renal Vitamin 0.8 MG Oral Tablet Take 1 Tablet by mouth in the morning. 90 Tablet 3 Carvedilol 12.5 MG Oral Tablet (Coreg) Take 1 Tablet by mouth in the morning and 1 Tablet before bedtime. 180 Tablet 3 Potassium Chloride Rimma ER 10 MEQ Oral Tablet Extended Release Take 1 Tablet by mouth in the morning. (Patient not taking: Reported on 12/03/2023) Gentamicin Sulfate 0.1 % External Cream Apply topically to affected area daily. Apply to exit site after treatment daily. 30 g 3 Amiodarone HCl 200 MG Oral Tablet (Pacerone) Take 1 Tablet by mouth in the morning. Warfarin Sodium 5 MG Oral Tablet (Coumadin) Take 1 Tablet by mouth in the morning. OR DIRECTED BY THE COUMADIN. Docusate Sodium 100 MG Oral Capsule (Colace) Take 1 Capsule by mouth in the morning. Pt takes this once daily . No current facility-administered medications for this visit. 1) Dysphagia, esophagram suggests achalasia - discussed motility study with , also EGD. They will contact me if they wish to schedule theseprocedures. documented in this encounter Plan of Treatment Upcoming Encounters Date Type Department Care Team (Late st Contact Info) Description 03/31/2024 12:30 PM EDT Laboratory Laboratory, [place] [address] [place] [address] [place], [facility] [address] [place], [place] [address] 06/30/2024 1:00 PM EDT Cardiac Studies Cardiac Studies, [facility] 132 [facility] [place] [address] Health Maintenance Due Date Last Done [...] as of this encounter Visit Diagnoses Diagnosis Dysphagia, unspecified type- Primary documented in this encounter Care Teams Trolley Operator Relationship Specialty Start Date End Date Debbie Arango MD [address] [facility] [place] [address] PCP - General Internal Medicine 03/04/23 documented as of this encounter
--- OUTSIDE RECORDS SUMMARY | 2024-04-12 21:57 | External Medical Summary | Summary of Care ---
Author Name Unknown Organization [facility] Address [address] [place] [address] Phone [phone] Care Team Providers Care Assistant Operations Manager Name Role Phone Debbie Arango MD Primary Care Provider Reason for Visit * Reason Onset Date Comments Advice 03/31/2024 Encounter Details Date Type Department Care Team (Late st Contact Info) Description 03/31/2024 Telephone Cardiology, [facility] [address] [facility] [address] Rick Tan, [address] [facility] [address] Advice Allergies No known active allergiesdocumented as [...] you. * Telephone Encounter - Lenora Colunga, machine wiper - 03/31/2024 4:40 PM EDT Dyana () is calling and [facility]. She has an active referral and jaziel like an appt. Please call Dyana [phone] Thank you for your assistance Lenora Colunga Order Processor II [facility] 03/31/2024,4:43 PM * Telephone Encounter - Nigel West LPN - 03/31/2024 4:12 PM EDT Called back and left a message. * Telephone Encounter - Madelin Batista OSA - 03/31/2024 3:59 PM EDT Person calling: Dyana Relationship to patient: ex Number to return call: [phone] Reason for call(brief): advice Pharmacy: Provider Name:Dominick [...] PM EDT Cardiac Studies Cardiac Studies, [facility] [address] [place] [address] 09/15/2024 11:30 AM EST Telemedicine Cardiovascular Genetics, [facility] [address] [place] [address] Kayla Larson, [place] [address] [place] [address] Health Maintenance Due Date Last Done Comments [...] filedocumented as of this encounter Care Teams Assistant Operations Manager Relationship Specialty Start Date End Date Debbie Arango MD [address] [facility] [place] [address] PCP - General Internal Medicine 03/04/23 documented as of this encounter
--- OUTSIDE RECORDS SUMMARY | 2024-04-12 21:57 | External Medical Summary | Summary of Care ---
Author Name Unknown Organization [facility] Address [address] [place] [address] Phone [phone] Care Team Providers Care Pharmacovigilance Specialist Name Role Phone Debbie Arango MD Primary Care Provider Reason for Visit * Reason Onset Date Comments Appointment 01/26/2024 Encounter Details Date Type Department Care Team (Late st Contact Info) Description 01/26/2024 Telephone [facility]enterology, [facility] [place] [address] Salena العلي MD 132 [facility] [place] [address] Appointment Allergies No known active allergiesdocumented as of this encounter (statuses as of 01/26/2024) Medications Medication Sig Dispensed Refills Start Date [...] as of this encounter (statuses as of 01/26/2024) Active Problems Problem Noted Date Diagnosed Date CKD (chronic kidney disease) stage 5, GFR less than 15 ml/min 05/21/2023 Peripheral vascular disease with claudication HTN, goal below 130/80 05/21/2023 documented as of this encounter (statuses as of 01/26/2024) Social History Tobacco Use Types Packs/Day Years [...] 02/03/2024 2:00 PM EDT Hospital Encounter OR [facility], Operating Room, [facility] - 4th Floor [address] [place] [address] Salena العلي MD [address] [place] [address] 02/03/2024 2:00 PM EDT - 02/03/2024 2:59 PM EDT Surgery OR [facility], Operating Room, [facility] - 4th Floor [address] [place] [address] Salena العلي MD [address] [place] [address] ESOPHAGOGASTRODUODENOSCOPY (EGD), FLEXIBLE, TRANSORAL, DIAGNOSTIC 03/31/2024 12:30 PM EDT Laboratory Laboratory, [place] [address] [place] [address] [place], Laboratory [address] [place] [facility] [place] [address] 06/30/2024 1:00 PM EDT Cardiac Studies Cardiac Studies, [facility] [address] [place] [address] 09/15/2024 11:30 AM EST Telemedicine Cardiovascular Genetics, [facility] [address] [place] [address] Kayla Larson, [place] [address] [place] [address] Scheduled Procedures Name Priority Associated Diagnoses Date/Ti [...] filedocumented as of this encounter Care Teams Pharmacovigilance Specialist Relationship Specialty Start Date End Date Debbie Arango MD [address] [facility] [place] [address] PCP - General Internal Medicine 03/04/23 documented as of this encounter
--- OUTSIDE RECORDS SUMMARY | 2024-04-12 21:58 | External Medical Summary | Summary of Care ---
Author Name Unknown Organization [facility] Address [address] [place] [address] Phone [phone] Care Team Providers Care Block Inspector Name Role Phone Debbie Arango MD Primary Care Provider Reason for Visit * Reason Onset Date Comments Advice 12/18/2023 Encounter Details Date Type Department Care Team (Late st Contact Info) Description 12/18/2023 Telephone Nephrology, [facility] [address] [place] [address] GalvanTeena gomez MD [address] [place] [address] Advice Allergies No known active allergiesdocumented as of this encounter (statuses as of 12/23/2023) Medications Medication Sig Dispensed Refills Start Date [...] as of this encounter (statuses as of 12/23/2023) Active Problems Problem Noted Date Diagnosed Date CKD (chronic kidney disease) stage 5, GFR less than 15 ml/min 05/21/2023 Peripheral vascular disease with claudication HTN, goal below 130/80 05/21/2023 documented as of this encounter (statuses as of 12/23/2023) Social History Tobacco Use Types Packs/Day Years [...] Telephone Encounter - Stefanie Gasca RN - 12/23/2023 10:44 AM EST Information faxed to [facility]. * Telephone Encounter - Teena Galvan MD - 12/19/2023 1:02 PM EST Recommend reviewing with team that patient is ESRD: Not all MRIs require gadolinium. I do not have details on this cardiac MRI but here are the recommendations for patients with ESRD who need gadolinium: Avoid gadolinium contrast administration, if possible. Consider alternative diagnostic strategies including noncontrast MRI and other imaging modalities. A discussion with the radiologist will likelybe helpful in decision making. If a gadolinium-enhanced MRI is considered a medical necessity, group II agents should be used preferentially. Group I agents are contraindicated >>> Please forward this to the [facility] peritoneal dialysis nurse who can follow-up on these details with the patient; in general for dialysis patients I tried to keep the communication within the dialysis clinic system * Telephone Encounter - Gaby Boone OSA - 12/18/2023 6:22 PM EST Pt is to have a MRI Cardiac but pt's would like it cleared by you. She is worried about the patient having the MRI contrast Gadolinium and wants us to be sure its ok before scheduling the patient. Thank you! documented in this encounter Plan of Treatment Upcoming Encounters Date Type Department Care Team (Late st Contact Info) Description 03/31/2024 12:30 PM EDT Laboratory Laboratory, [address] [address] [address] 04/07/2024 12:30 PM EDT Office Visit Hematology/Oncology [facility] [address] [place] [place] [phone] Tara Marquez MD [address] [place] [address] Health Maintenance Due Date Last Done Comments [...] filedocumented as of this encounter Care Teams Block Inspector Relationship Specialty Start Date End Date Debbie Arango MD [address] [facility] [place] [address] PCP - General Internal Medicine 03/04/23 documented as of this encounter
--- OUTSIDE RECORDS SUMMARY | 2024-04-12 21:58 | External Medical Summary | Summary of Care ---
Author Name Unknown Organization [facility] Address [address] [place] [address] Phone [phone] Care Team Providers Care Golf Player Assistant Name Role Phone Debbie Arango MD Primary Care Provider Encounter Details Date Type Department Care Team (Late st Contact Info) Description 01/13/2024 Telephone Gastroenterology, [facility] [address] [place] [address] Adriana Paulson CRNP [address] [place] [address] Allergies No known active allergiesdocumented as of [...] procedure up she can be reached at [phone] Thanks documented in this encounter Plan of Treatment Upcoming Encounters Date Type Department Care Team (Late st Contact Info) Description 03/31/2024 12:30 PM EDT Laboratory Laboratory, [place] [address] [place] [phone] [place] [address] [place] [address] 06/30/2024 1:00 PM EDT Cardiac Studies Cardiac Studies, [facility] [address] [facility] [place] [address] Health Maintenance Due Date Last Done Comments [...] filedocumented as of this encounter Care Teams Golf Player Assistant Relationship Specialty Start Date End Date Debbie Arango MD [address] [facility] [place] [address] PCP - General Internal Medicine 03/04/23 documented as of this encounter
--- OUTSIDE RECORDS SUMMARY | 2024-04-12 21:58 | External Medical Summary | Summary of Care ---
Author Name Unknown Organization [facility] Address [address] [place] [address] Phone [phone] Care Team Providers Care Manager Policy Name Role Phone Debbie Arango MD Primary Care Provider Reason for Visit * Reason Onset Date Comments Test Results 12/05/2023 Encounter Details Date Type Department Care Team (Late st Contact Info) Description 12/05/2023 Telephone Cardiology, [facility] [address] [place] [address] Rick Tan, [address] [place] [address] Test Results Allergies No known active allergiesdocumented as of this encounter (statuses as of 12/12/2023) Medications Medication Sig Dispensed Refills Start Date End Date Status Nutra/Shake Oral LiquidIndication s:CKD (chronic kidney disease) stage 5, GFR less than 15 ml/min (HCC) TAKE ONE BY MOUTH EVERY DAY TO SUPPLEMENT NUTRIENT INTAKE 0 03/20/2023 Active Renal Vitamin 0.8 MG Oral TabletIndication s:CKD (chronic kidney disease) stage 5, GFR less than 15 ml/min (HCC) Take 1 Tablet by mouth in the morning. 90 Tablet 3 09/08/2023 Active Carvedilol 12.5 MG Oral Tablet (Coreg)Indicatio ns:CKD (chronic kidney disease) stage 5, GFR less [...] THE COUMADIN. 0 10/19/2023 Active Docusate Sodium 50 MG Oral Capsule Take by mouth 2 times a day. 0 12/08/2023 Discontinue d(Medicatio n/Dose Changed) documented as of this encounter (statuses as of 12/12/2023) Active Problems Problem Noted Date Diagnosed Date CKD (chronic kidney disease) stage 5, GFR less than 15 ml/min 05/21/2023 Peripheral vascular disease with claudication HTN, goal below 130/80 05/21/2023 documented as of this encounter (statuses as of 12/12/2023) Social History Tobacco Use Types Packs/Day Years [...] encounter Miscellaneous Notes * Telephone Encounter - Annie Gurrola CMA - 12/12/2023 4:17 PM EST Letter mailed. * Telephone Encounter - Annie Gurrola CMA - 12/05/2023 1:03 PM EST My g sent. Lab orders placed. * Telephone Encounter - Annie Gurrola CMA - 12/05/2023 1:00 PM EST ----- Message from Rick Tan DO sent at 12/04/2023 2:37 PM EST ----- Elevated TSH with normal free T4. Recommend repeat TSH with free T4 in 1 month. Stable, comprehensive metabolic panel. CBC demonstrates stable, mild anemia of chronic disease. documented in this encounter Plan of Treatment Upcoming Encounters Date Type Department Care Team (Late st Contact Info) Description 03/31/2024 12:30 PM EDT Laboratory Laboratory, [place] [address] [place] [address] [place], Laboratory [address] [place] [address] 04/07/2024 12:30 PM EDT Office Visit Hematology/Oncology [facility] [place] [address] [facility] [place] [phone] Tara Marquez MD [address] [facility] [place] [address] Scheduled Orders Name Type Priority Associated Diagnoses Orde r Schedule T4, FREE Lab Routine HTN, goal below 130/80 CKD (chronic kidney disease) stage 5, GFR less than 15 ml/min (HCC) Peripheral vascular disease with claudication (HCC) Expected: 01/03/2024 (Approximate), Expires: 12/05/2024 TSH Lab Routine HTN, goal below 130/80 CKD (chronic kidney disease) stage 5, GFR less than 15 ml/min (HCC) Peripheral vascular disease with claudication (HCC) Expected: 01/03/2024 (Approximate), Expires: 12/05/2024 Health Maintenance Due Date Last Done Comments [...] as of this encounter Visit Diagnoses Diagnosis HTN, goal below 130/80- Primary Unspecified essential hypertension CKD (chronic kidney disease) stage 5, GFR less than 15 ml/min (HCC) Chronic kidney disease, Stage V Peripheral vascular disease with claudication (HCC) Peripheral vascular disease, unspecified documented in this encounter Care Teams Manager Policy Relationship Specialty Start Date End Date Debbie Arango MD [address] [facility] [place] [address] PCP - General Internal Medicine 03/04/23 documented as of this encounter
--- OUTSIDE RECORDS SUMMARY | 2024-04-12 21:58 | External Medical Summary | Summary of Care ---
Author Name Unknown Organization [facility] Address [address] [place] [address] Phone [phone] Care Team Providers Care Band Top Maker Name Role Phone Debbie Arango MD Primary Care Provider Reason for Visit * Reason Onset Date Comments Advice 12/05/2023 Clarify medicati on Encounter Details Date Type Department Care Team (Late st Contact Info) Description 12/05/2023 Telephone Cardiology, [facility] [address] [place] [address] Rick Tan, [address] [place] [address] Advice (Clarify medication) Allergies No known active allergiesdocumented as of this encounter (statuses as of 12/08/2023) Medications Medication Sig Dispensed Refills Start Date [...] before bedtime. 180 Tablet 3 09/08/2023 Active Docusate Sodium 50 MG Oral Capsule Take by mouth 2 times a day. 0 Active Potassium Chloride Rimma ER 10 MEQ [...] DIRECTED BY THE COUMADIN. 0 10/19/2023 Active documented as of this encounter (statuses as of 12/08/2023) Active Problems Problem Noted Date Diagnosed Date CKD (chronic kidney disease) stage 5, GFR less than 15 ml/min 05/21/2023 Peripheral vascular disease with claudication HTN, goal below 130/80 05/21/2023 documented as of this encounter (statuses as of 12/08/2023) Social History Tobacco Use Types Packs/Day Years [...] encounter Miscellaneous Notes * Telephone Encounter - Sherron Son LPN - 12/08/2023 9:00 AM EST Left msg on machine for deon to ask about this, I am not sure if this was intended for our provider or not, since our provider didn't order the medication discussed. Dr Gerardo, can you look at this ? Clarify if possible * Telephone Encounter - Gabriella Tan DO - 12/08/2023 8:48 AM EST I have never seen pt, suggest PCP * Telephone Encounter - Katelyn Lopez OSA - 12/05/2023 1:59 PM EST Person calling:Deon otero/[place] Relationship to patient: [place] Number to return call: [phone] Reason for call: Pt & son said taking the med Docusate only 1x per day & paper work they just got said to continue 2x a day..... pt told the dr at his visit that he is only taking 1x per day.Please clarify Pharmacy: N/A Provider Name:Dominick documented in this encounter Plan of Treatment Upcoming Encounters Date Type Department Care Team (Late st Contact Info) Description 03/31/2024 12:30 PM EDT Laboratory Laboratory, [place] [address] [place] [phone] [place] [address] [place] [address] 04/07/2024 12:30 PM EDT Office Visit Hematology/Oncology Amna Heredia [place] [address] [place] [address] Tara Marquez MD [address] [place] [address] Health Maintenance Due Date Last Done Comments [...] filedocumented as of this encounter Care Teams Band Top Maker Relationship Specialty Start Date End Date Debbie Arango MD [address] [facility] [place] [address] PCP - General Internal Medicine 03/04/23 documented as of this encounter
--- OUTSIDE RECORDS SUMMARY | 2024-04-12 21:58 | External Medical Summary | Summary of Care ---
Author Name Unknown Organization [facility] Address [address] [place] [address] Phone [phone] Care Team Providers Care Explosive Man Name Role Phone Debbie Arango MD Primary Care Provider Encounter Details Date Type Department Care Team (Late st Contact Info) Description 12/08/2023 Abstract Gastroenterology, [facility] 132 [facility] [place] [address] Salena العلي MD 132 [facility] [place] [address] Allergies No known active allergiesdocumented as of [...] takes this once daily . 0 Active Docusate Sodium 50 MG Oral Capsule [...] Description 03/31/2024 12:30 PM EDT Laboratory Laboratory, [place] [address] [place] [facility] [place] [address] [facility] [address] [facility] [address] 04/07/2024 12:30 PM EDT Office Visit Hematology/Oncology [place] [address] [facility] [place] [phone] Tara Marquez MD [address] [facility] [place] [address] Health Maintenance Due Date Last Done Comments [...] filedocumented as of this encounter Care Teams Explosive Man Relationship Specialty Start Date End Date Debbie Arango MD [address] [facility] [place] [address] PCP - General Internal Medicine 03/04/23 documented as of this encounter
--- OUTSIDE RECORDS SUMMARY | 2024-04-12 21:58 | External Medical Summary | Summary of Care ---
Author Name Unknown Organization [facility] Address [address] [place] [address] Phone [phone] Care Team Providers Care Supervisor Decorating Name Role Phone Debbie Arango MD Primary Care Provider Reason for Visit * Reason Comments Outpatient Testing Encounter Details Date Type Department Care Team (Late st Contact Info) Description 12/03/2023 12:40 PM EST Laboratory Laboratory, [facility] [address] [place] [phone] [facility] [address] [place] [address] Atypical atrial flutter (HCC) Allergies No known active allergiesdocumented as of this encounter (statuses as of 12/03/2023) Medications Medication Sig Dispensed Refills Start Date [...] as of this encounter (statuses as of 12/03/2023) Active Problems Problem Noted Date Diagnosed Date CKD (chronic kidney disease) stage 5, GFR less than 15 ml/min 05/21/2023 Peripheral vascular disease with claudication HTN, goal below 130/80 05/21/2023 documented as of this encounter (statuses as of 12/03/2023) Social History Tobacco Use Types Packs/Day Years [...] Description 03/31/2024 12:30 PM EDT Laboratory Laboratory, [place] [address] [place] [phone] [place], Laboratory [address] [place] [address] 04/07/2024 12:30 PM EDT Office Visit Hematology/Oncology [facility] [place] 200 [facility] [place] [address] Tara Marquez MD 200 [facility] [place] [address] Pending Results Name Type Priority Associated Diagnoses Date /Time COMPREHENSIVE METABOLIC PANEL Lab Routine Atypical atrial flutter (HCC) 12/03/2023 12:13 PM EST TSH WITH FREE T4 IF INDICATED Lab Routine Atypical atrial flutter (HCC) 12/03/2023 12:13 PM EST CBC WITH WBC DIFFERENTIAL Lab Routine Atypical atrial flutter (HCC) 12/03/2023 12:13 PM EST CBC Lab Routine Atypical atrial flutter (HCC) 12/03/2023 12:13 PM EST DIFFERENTIAL, AUTOMATED Lab Routine Atypical atrial flutter (HCC) 12/03/2023 12:13 PM EST Health Maintenance Due Date Last Done Comments COVID-19 Vaccine (#1) 02/21/1946 Depression Screening 1957 DTaP,Tdap,and Td Vaccines (1 - Tdap) 1965 Influenza Vaccine (FLU shot) (#1) 2023 Pneumococcal [...] as of this encounter Visit Diagnoses Diagnosis Atypical atrial flutter (HCC) Atrial flutter documented in this encounter Care Teams Supervisor Decorating Relationship Specialty Start Date End Date Debbie Arango MD [address] [facility] [place] [address] PCP - General Internal Medicine 03/04/23 documented as of this encounter
--- OUTSIDE RECORDS SUMMARY | 2024-04-12 21:58 | External Medical Summary | Summary of Care ---
Author Name Unknown Organization [facility] Address [address] [place] [address] Phone [phone] Care Team Providers Care Residency Director Name Role Phone Debbie Arango MD Primary Care Provider Encounter Details Date Type Department Care Team (Late st Contact Info) Description 11/27/2023 Telephone Gastroenterology, [facility] [address] [place] [address] Salena العلي MD [address] [place] [address] Allergies No known active allergiesdocumented as of this encounter (statuses as of 12/18/2023) Medications Medication Sig Dispensed Refills Start Date End Date Status Nutra/Shake Oral LiquidIndications :CKD (chronic kidney disease) stage 5, GFR less than 15 ml/min (HCC) TAKE ONE BY MOUTH EVERY DAY TO SUPPLEMENT NUTRIENT INTAKE 0 3 Active Renal Vitamin 0.8 MG Oral TabletIndications :CKD (chronic kidney disease) stage 5, GFR less than 15 ml/min (HCC) Take 1 Tablet by mouth in the morning. 90 Tablet 3 3 Active Carvedilol 12.5 MG Oral Tablet (Coreg)Indication s:CKD (chronic kidney disease) stage 5, GFR less than 15 ml/min (HCC) Take 1 Tablet by mouth in the morning and 1 Tablet before bedtime. 180 Tablet 3 3 Active Potassium Chloride Rimma ER 10 MEQ Oral Tablet Extended Release Take 1 Tablet by mouth in the morning. 0 Active Gentamicin Sulfate 0.1 % External Cream Apply topically to affected area daily. Apply to exit site after treatment daily. 30 g 3 4 Active Sodium Bicarbonate 650 MG Oral TabletIndications :CKD (chronic kidney disease) stage 5, GFR less than 15 ml/min (HCC) Take 2 Tablets by mouth in the morning and 2 Tablets before bedtime. 120 Tablet 11 3 12/03/19 24 Discontinued Sodium Zirconium Cyclosilicate 10 GM Oral Packet (Lokelma)Indicati ons:CKD (chronic kidney disease) stage 5, GFR less than 15 ml/min (HCC) Take 1 Packet by mouth in the morning. 30 Packet 5 3 12/03/19 24 Discontinued amLODIPine Besylate 10 MG Oral Tablet (Norvasc)Indicati ons:CKD (chronic kidney disease) stage 5, GFR less than 15 ml/min (HCC) Take 0.5 Tablets by mouth in the morning. 45 Tablet 3 3 12/03/19 24 Discontinued Docusate Sodium 50 MG Oral Capsule Take by mouth 2 times a day. 0 12/08/19 24 Discontinued(Med ication/Dose Changed) documented as of this encounter (statuses as of 12/18/2023) Active Problems Problem Noted Date Diagnosed Date CKD (chronic kidney disease) stage 5, GFR less than 15 ml/min 05/21/2023 Peripheral vascular disease with claudication HTN, goal below 130/80 05/21/2023 documented as of this encounter (statuses as of 12/18/2023) Social History Tobacco Use Types Packs/Day Years [...] encounter Miscellaneous Notes * Telephone Encounter - Janneth Page, DEIDRE - 12/18/2023 12:56 PM EST Lmm DEIDRE Hardin 12/18/2023 12:56 PM * Telephone Encounter - Vale Gordon, DEIDRE - 11/27/2023 5:52 PM EST ----- Message from Salena العلي MD sent at 11/24/2023 3:41 PM EST ----- Can this pt be scheduled for an EGD with me - will need hosp setting. DO NOT STOP ac. documented in this encounter Plan of Treatment Upcoming Encounters Date Type Department Care Team (Late st Contact Info) Description 03/31/2024 12:30 PM EDT Laboratory Laboratory, [address] [phone] [address] [address] 04/07/2024 12:30 PM EDT Office Visit Hematology/Oncology [facility] 200 [facility] [place] [phone] Tara Marquez MD [address] [facility] [place] [address] Health Maintenance Due Date Last Done Comments [...] filedocumented as of this encounter Care Teams Residency Director Relationship Specialty Start Date End Date Debbie Arango MD [address] [facility] [place] [address] PCP - General Internal Medicine 03/04/23 documented as of this encounter
--- OUTSIDE RECORDS SUMMARY | 2024-04-12 21:58 | External Medical Summary | Summary of Care ---
Author Name Unknown Organization [facility] Address [address] [place] [address] Phone [phone] Care Team Providers Care Director Surface Transportation Name Role Phone Debbie Arango MD Primary Care Provider Encounter Details Date Type Department Care Team (Late st Contact Info) Description 11/27/2023 Telephone Gastroenterology, [facility] [address] [place] [address] Salena العلي MD [address] [place] [address] Allergies No known active allergiesdocumented as of this encounter (statuses as of 12/22/2023) Medications Medication Sig Dispensed Refills Start Date [...] as of this encounter (statuses as of 12/22/2023) Active Problems Problem Noted Date Diagnosed Date CKD (chronic kidney disease) stage 5, GFR less than 15 ml/min 05/21/2023 Peripheral vascular disease with claudication HTN, goal below 130/80 05/21/2023 documented as of this encounter (statuses as of 12/22/2023) Social History Tobacco Use Types Packs/Day Years [...] Telephone Encounter - Janneth Page, DEIDRE - 12/22/2023 2:59 PM EST Lmm Janneth Page, DEIDRE 12/22/2023 2:59 PM * Telephone Encounter - Janneth Page, DEIDRE - 12/18/2023 12:56 PM EST Lmm Janneth Page, DEIDRE 12/18/2023 12:56 PM * Telephone Encounter - [...] Description 03/31/2024 12:30 PM EDT Laboratory Laboratory, [place] [address] [place] [phone] [address] [address] 04/07/2024 12:30 PM EDT Office Visit Hematology/Oncology [facility] [address] [place] [address] Tara Marquez MD [address] [place] [address] Health Maintenance Due Date Last Done Comments [...] as of this encounter Care Teams Director Surface Transportation Relationship Specialty Start Date End Date Debbie Arango MD [address] [facility] [place] [address] PCP - General Internal Medicine 03/04/23 documented as of this encounter
--- OUTSIDE RECORDS SUMMARY | 2024-04-12 21:58 | External Medical Summary | Summary of Care ---
Author Name Unknown Organization [facility] Address [address] [place] [address] Phone [phone] Care Team Providers Care Carbon Paper Interleafer Name Role Phone Debbie Arango MD Primary Care Provider Reason for Visit * Reason Onset Date Comments Advice 12/18/2023 Encounter Details Date Type Department Care Team (Late st Contact Info) Description 12/18/2023 Telephone Nephrology, [facility] [address] [place] [address] Teena Galvan MD [address] [place] [address] Advice Allergies No known active allergiesdocumented as of this encounter (statuses as of 12/25/2023) Medications Medication Sig Dispensed Refills Start Date [...] as of this encounter (statuses as of 12/25/2023) Active Problems Problem Noted Date Diagnosed Date CKD (chronic kidney disease) stage 5, GFR less than 15 ml/min 05/21/2023 Peripheral vascular disease with claudication HTN, goal below 130/80 05/21/2023 documented as of this encounter (statuses as of 12/25/2023) Social History Tobacco Use Types Packs/Day Years [...] Telephone Encounter - Stefanie Gasca RN - 12/25/2023 2:40 PM EST Correspondence on chart from to cardiology office and declining test at this time. * Telephone Encounter - Stefanie Gasca RN - 12/24/2023 11:43 AM EST Attempted to obtain Medical records and was forwarded to an answering machine. Request left with a call back number. * Telephone Encounter - Stefanie Gasca RN - 12/24/2023 11:28 AM EST Call placed to [facility] OR- Spoke with staff member who transferred me to the staff handling supplies for the OR She is unable to access his records to research this information. She recommended calling Dr Spann's office for a copy of the OR record as it should have the product information in the record. [facility] called to request Medical records. * Telephone Encounter - Teena Galvan MD - 12/23/2023 3:28 PM EST Pt had catheter placed by Dr Spann approx Sep 2023 > has a titanium connector. PA w/ surgeon states cardiac MRI should be ok but recommends pls call OR [facility] and ask OR to check packaging for his catheter >> pls call them * Telephone Encounter - Stefanie Gasca RN - 12/23/2023 10:44 AM EST Information fax[facility] to [facility]. * Telephone Encounter - Teena Galvan MD [...] contraindicated >>> Please forward this to the [facility] peritoneal dialysis nurse who can follow-up on [...] Description 03/31/2024 12:30 PM EDT Laboratory Laboratory, [place] [address] [place] [address] [facility] [address] [place] [address] 04/07/2024 12:30 PM EDT Office Visit Hematology/Oncology [facility] [place] 200 [facility] [place] [phone] Tara Marquez MD 200 [facility] [place] [address] Health Maintenance Due Date Last Done Comments [...] filedocumented as of this encounter Care Teams Carbon Paper Interleafer Relationship Specialty Start Date End Date Debbie Arango MD [address] [facility] [place] [address] PCP - General Internal Medicine 03/04/23 documented as of this encounter
--- OUTSIDE RECORDS SUMMARY | 2024-04-12 21:58 | External Medical Summary | Summary of Care ---
Author Name Unknown Organization [facility] Address [address] [place] [address] Phone [phone] Care Team Providers Care Seasonal Package Handler Name Role Phone Debbie Arango MD Primary Care Provider Reason for Visit * Reason Onset Date Comments Advice 12/05/2023 Clarify medicati on Encounter Details Date Type Department Care Team (Late st Contact Info) Description 12/05/2023 Telephone Cardiology, [facility] [address] [place] [address] Rick Tan, [address] [place] [address] Advice (Clarify medication) Allergies No known active [...] - 12/05/2023 1:59 PM EST Person calling:Deon otero/[place] Relationship to patient: [place] Number to return call: [phone] Reason for call: Pt & son said [...] Description 03/31/2024 12:30 PM EDT Laboratory Laboratory, [place] [address] [place] [phone] [place] [address] [place] [address] 04/07/2024 12:30 PM EDT Office Visit Hematology/Oncology [facility] [address] [place] [address] Tara Marquez MD [address] [place] [address] Health Maintenance Due Date Last Done Comments [...] filedocumented as of this encounter Care Teams Seasonal Package Handler Relationship Specialty Start Date End Date Debbie Arango MD [address] [facility] [place] [address] PCP - General Internal Medicine 03/04/23 documented as of this encounter
--- OUTSIDE RECORDS SUMMARY | 2024-04-12 21:58 | External Medical Summary | Summary of Care ---
Author Name Unknown Organization [facility] Address [address] [place] [address] Phone [phone] Care Team Providers Care Chemical Worker Name Role Phone Debbie Arango MD Primary Care Provider Reason for Visit * Reason Onset Date Comments Test Results 12/05/2023 Encounter Details Date Type Department Care Team (Late st Contact Info) Description 12/05/2023 Telephone Cardiology, [facility] [address] [place] [address] Rick Tan, [address] [place] [address] Test Results Allergies No known active allergiesdocumented as of this encounter (statuses as of 12/05/2023) Medications Medication Sig Dispensed Refills Start Date [...] as of this encounter (statuses as of 12/05/2023) Active Problems Problem Noted Date Diagnosed Date CKD (chronic kidney disease) stage 5, GFR less than 15 ml/min 05/21/2023 Peripheral vascular disease with claudication HTN, goal below 130/80 05/21/2023 documented as of this encounter (statuses as of 12/05/2023) Social History Tobacco Use Types Packs/Day Years [...] Description 03/31/2024 12:30 PM EDT Laboratory Laboratory, [place] [address] [place] [address] [place], Laboratory [address] [place] [address] 04/07/2024 12:30 PM EDT Office Visit Hematology/Oncology [facility] He[facility] [place] 200 [facility] [place] [address] Tara Marquez MD 200 [facility] [place] [address] Scheduled Orders Name Type Priority Associated Diagnoses [...] unspecified documented in this encounter Care Teams Chemical Worker Relationship Specialty Start Date End Date Debbie Arango MD [address] [facility] [place] [address] PCP - General Internal Medicine 03/04/23 documented as of this encounter
--- OUTSIDE RECORDS SUMMARY | 2024-04-12 21:58 | External Medical Summary | Summary of Care ---
Author Name Unknown Organization [facility] Address [address] [place] [address] Phone [phone] Care Team Providers Care Sandblasting Supervisor Name Role Phone Debbie Arango MD Primary Care Provider Reason for Visit * Reason Onset Date Comments Nurse Documentation 12/04/2023 Encounter Details Date Type Department Care Team (Late st Contact Info) Description 12/04/2023 Telephone Cardiac Studies [facility], [place] [address] [place] [address] Jennie Donohue, RN Nurse Documentation Allergies No known active allergiesdocumented as of this encounter (statuses as of 12/04/2023) Medications Medication Sig Dispensed Refills Start Date [...] as of this encounter (statuses as of 12/04/2023) Active Problems Problem Noted Date Diagnosed Date CKD (chronic kidney disease) stage 5, GFR less than 15 ml/min 05/21/2023 Peripheral vascular disease with claudication HTN, goal below 130/80 05/21/2023 documented as of this encounter (statuses as of 12/04/2023) Social History Tobacco Use Types Packs/Day Years [...] encounter Miscellaneous Notes * Telephone Encounter - Jennie Donohue RN - 12/04/2023 8:43 AM EST This patient has been triaged and cleared by the cardiac nurse to be scheduled for the [facility]. A message has been sent to the schedulers to please call the patient and will need labs. documented in this encounter Plan of Treatment Upcoming Encounters Date Type Department Care Team (Late st Contact Info) Description 03/31/2024 12:30 PM EDT Laboratory Laboratory, [place] [address] [place] [place] [phone] [place], Laboratory [address] [place] [place] [address] 04/07/2024 12:30 PM EDT Office Visit Hematology/Oncology [facility] 200 [facility] [place] [address] Tara Marquez MD 200 [facility] [place] [address] Health Maintenance Due Date Last Done Comments [...] filedocumented as of this encounter Care Teams Sandblasting Supervisor Relationship Specialty Start Date End Date Debbie Arango MD [address] [facility] [place] [address] PCP - General Internal Medicine 03/04/23 documented as of this encounter
--- OUTSIDE RECORDS SUMMARY | 2024-04-12 21:58 | External Medical Summary | Summary of Care ---
Author Name Unknown Organization [facility] Address [address] [place] [address] Phone [phone] Care Team Providers Care Multiple Drum Sander Helper Name Role Phone Debbie Arango MD Primary Care Provider Encounter Details Date Type Department Care Team (Late st Contact Info) Description 11/27/2023 Telephone Gastroenterology, [facility] 132 [facility] [place] [address] Salena العلي MD 132 [facility] [place] [address] Allergies No known active allergiesdocumented as of this encounter (statuses as of 12/26/2023) Medications Medication Sig Dispensed Refills Start Date [...] as of this encounter (statuses as of 12/26/2023) Active Problems Problem Noted Date Diagnosed Date CKD (chronic kidney disease) stage 5, GFR less than 15 ml/min 05/21/2023 Peripheral vascular disease with claudication HTN, goal below 130/80 05/21/2023 documented as of this encounter (statuses as of 12/26/2023) Social History Tobacco Use Types Packs/Day Years [...] Miscellaneous Notes * Telephone Encounter - Janneth Page OSA - 12/26/2023 9:33 AM EST Letter sent DEIDRE Clements * Telephone Encounter - Janneth Page OSA - 12/22/2023 2:59 PM EST Lmm DEIDRE Hardin 12/22/2023 2:59 PM * Telephone Encounter - Janneth Page OSA - 12/18/2023 12:56 PM EST Lmm DEIDRE Hardin 12/18/2023 12:56 PM * Telephone Encounter - Vale Gordon OSA - 11/27/2023 5:52 PM EST ----- Message from Salena العلي MD sent at 11/24/2023 3:41 PM EST ----- Can this pt be scheduled for an EGD with me - will need hosp setting. DO NOT STOP ac. documented in this encounter Plan of Treatment Upcoming Encounters Date Type Department Care Team (Late st Contact Info) Description 03/31/2024 12:30 PM EDT Laboratory Laboratory, [place] [address] [place] [facility] [place] [phone] [place], [facility] [address] [place] [address] 04/07/2024 12:30 PM EDT Office Visit [facility] [address] [place] [address] Tara Marquez MD [address] [place] [address] Health Maintenance Due Date Last Done Comments [...] filedocumented as of this encounter Care Teams Multiple Drum Sander Helper Relationship Specialty Start Date End Date Debbie Arango MD [address] [facility] [place] [address] PCP - General Internal Medicine 03/04/23 documented as of this encounter
--- OUTSIDE RECORDS SUMMARY | 2024-04-12 21:58 | External Medical Summary | Summary of Care ---
Author Name Unknown Organization [facility] Address [address] [place] [address] Phone [phone] Care Team Providers Care Extended Day Teacher Name Role Phone Debbie Arango MD Primary Care Provider Encounter Details Date Type Department Care Team (Late st Contact Info) Description 01/13/2024 Telephone Gastroenterology, [facility] [address] [place] [address] Adriana Paulson CRNP [address] [place] [address] Allergies No known active allergiesdocumented as of [...] to be scheduled for pt. [facility] [...] procedure up she can be reached at [phone] Thanks documented in this encounter Plan of Treatment Upcoming Encounters Date Type Department Care Team (Late st Contact Info) Description 03/31/2024 12:30 PM EDT Laboratory Laboratory, [address] [phone] [place] [address] [place] [address] 06/30/2024 1:00 PM EDT Cardiac Studies Cardiac Studies, [facility] 132 [facility] [place] [address] Health Maintenance Due Date [...] filedocumented as of this encounter Care Teams Extended Day Teacher Relationship Specialty Start Date End Date Debbie Arango MD [address] [facility] [place] [address] PCP - General Internal Medicine 03/04/23 documented as of this encounter
--- OUTSIDE RECORDS SUMMARY | 2024-04-12 21:58 | External Medical Summary | Summary of Care ---
Author Name Unknown Organization [facility] Address [address] [place] [address] Phone [phone] Care Team Providers Care Nursing Informatics Specialist Name Role Phone Debbie Arango MD Primary Care Provider Reason for Visit * Reason Onset Date Comments Advice 12/18/2023 Encounter Details Date Type Department Care Team (Late st Contact Info) Description 12/18/2023 Telephone Nephrology, [facility] [address] [place] [address] GalvanTeena gomez MD [address] [place] [address] Advice Allergies No known active allergiesdocumented as of this encounter (statuses as of 12/24/2023) Medications Medication Sig Dispensed Refills Start Date [...] as of this encounter (statuses as of 12/24/2023) Active Problems Problem Noted Date Diagnosed Date CKD (chronic kidney disease) stage 5, GFR less than 15 ml/min 05/21/2023 Peripheral vascular disease with claudication HTN, goal below 130/80 05/21/2023 documented as of this encounter (statuses as of 12/24/2023) Social History Tobacco Use Types Packs/Day Years [...] 12/24/2023 11:28 AM EST Call placed to [facility] OR- Spoke with staff member who transferred me to the staff handling supplies for the OR She is unable to access his records to research this information. She recommended calling Dr Spann's office for a copy of the OR record as it should have the product information in the record. [facility] called to request Medical records. * Telephone Encounter - Teena Galvan MD - 12/23/2023 3:28 PM EST Pt had catheter placed by Dr Spann approx Sep 2023 > has a titanium connector. PA w/ surgeon states cardiac MRI should be ok but recommends pls call OR [facility] and ask OR to check packaging for his catheter >> pls call them * Telephone Encounter - Stefanie Gasca RN - 12/23/2023 10:44 AM EST Information faxed to [facility]. * Telephone Encounter - Teena Galvan MD [...] contraindicated >>> Please forward this to the [facility] peritoneal dialysis nurse who can [...] Description 03/31/2024 12:30 PM EDT Laboratory Laboratory, [place] [facility] [address] [place] [address] [facility] [address] [place] [address] 04/07/2024 12:30 PM EDT Office Visit Hematology/Oncology [facility] 200 [facility] [place] [phone] Tara Marquez MD 200 [facility] [place] [address] Health Maintenance Due Date Last Done Comments [...] filedocumented as of this encounter Care Teams Nursing Informatics Specialist Relationship Specialty Start Date End Date Debbie Arango MD [address] [facility] [place] [address] PCP - General Internal Medicine 03/04/23 documented as of this encounter
--- OUTSIDE RECORDS SUMMARY | 2024-04-12 21:58 | External Medical Summary | Summary of Care ---
Author Name Unknown Organization [facility] Address [address] [place] [address] Phone [phone] Care Team Providers Care Federal District Clerk Name Role Phone Debbie Arango MD Primary Care Provider Reason for Visit * Reason Onset Date Comments Advice 12/05/2023 Clarify medicati on Encounter Details Date Type Department Care Team (Late st Contact Info) Description 12/05/2023 Telephone Cardiology, [facility] [address] [place] [address] Rick Tan, [address] [place] [address] Advice (Clarify medication) Allergies No known active [...] to patient: [place] Number to return call: [phone] Reason for call: Pt & son said [...] Description 03/31/2024 12:30 PM EDT Laboratory Laboratory, [place] [address] [place] [address] [place] [address] [place] [address] 04/07/2024 12:30 PM EDT Office Visit Hematology/Oncology [facility] [facility] [address] [place] [phone] Tara Marquez MD [address] [place] [place] [address] Health Maintenance Due Date Last Done Comments [...] filedocumented as of this encounter Care Teams Federal District Clerk Relationship Specialty Start Date End Date Debbie Arango MD [address] [facility] [place] [address] PCP - General Internal Medicine 03/04/23 documented as of this encounter
--- OUTSIDE RECORDS SUMMARY | 2024-04-12 21:58 | External Medical Summary | Summary of Care ---
Author Name Unknown Organization [facility] Address [address] [place] [address] Phone [phone] Care Team Providers Care Filter Bed Placer Name Role Phone Debbie Arango MD Primary Care Provider Reason for Referral * Precert (Within 10 days (routine)) - Pending Review Specialty Diagnoses / Procedures [facility] To Contact Radiology Diagnoses Hypertrophic cardiomyopathy (HCC) Procedures MRI CARDIAC, ADULT W WO CONTRAST Rick Tan DO [address] [place] [address] Referral ID Status Reason Start Date Expiration Date Visits Requested Visits Authorized [id number] Pending Review Precert 12/04/[phone] * Evaluate & Treat - Unlimited Visits (Within 10 days (routine)) - Pending Review Specialty Diagnoses / Procedures Referred By Contmorgan t Referred To Contact Medical Genetics / Hematology Oncology Diagnoses Atypical atrial flutter (HCC) Rick Tan DO [address] [place] [address] Referral ID Status Reason Start Date Expiration Date Visits Requested Visits Authorized [id number] Pending Review Specialty Services Required 12/03/2023 999 999 Question Answer Referral Priority Within 10 days (routine) Where should this appointment be scheduled? [facility] Is this referral request related to one of the following genetics sub-specialties? If unsure of category, use Medical Genetics Ask-A-Doc. Cardiovascular Will this information impact decision on implantable cardiac defibrillator placement, surgical decision making, or medication management? No Is there a positive family history? No Comments Hypertrophic cardiomyopathy Reason for Visit * Reason Comments Hospital Follow-Up Encounter Details Date Type Department Care Team (Latest Contact Info) Description 12/03/2023 11:00 AM EST Office Visit Cardiology, [facility] [address] [place] [address] Rick Tan DO [address] [place] [id number] Atypical atrial flutter (HCC)*; Paroxysmal atrial fibrillation (HCC); Bilateral pulmonary embolism (HCC); Hypertrophic cardiomyopathy (HCC); Hospital discharge follow-up Allergies No known active allergiesdocumented as of this encounter (statuses as of 12/03/2023) Medications Medication Sig Dispensed Refills Start Date End Date Status Nutra/Shake Oral LiquidIndications: CKD (chronic kidney disease) stage 5, GFR less than 15 ml/min (HCC) TAKE ONE BY MOUTH EVERY DAY TO SUPPLEMENT NUTRIENT INTAKE 0 03/20/2023 Active Renal Vitamin 0.8 MG Oral TabletIndications: CKD (chronic kidney disease) stage 5, GFR less than 15 ml/min (HCC) Take 1 Tablet by mouth in the morning. 90 Tablet 3 09/08/2023 Active Carvedilol 12.5 MG Oral Tablet (Coreg)Indications :CKD (chronic kidney disease) stage 5, GFR [...] DIRECTED BY THE COUMADIN. 0 10/19/2023 Active Sodium Bicarbonate 650 MG Oral TabletIndications: CKD (chronic kidney disease) stage 5, GFR less than 15 ml/min (HCC) Take 2 Tablets by mouth in the morning and 2 Tablets before bedtime. 120 Tablet 11 04/17/2023 12/03/19 24 Discontinued Sodium Zirconium Cyclosilicate 10 GM Oral Packet (Lokelma)Indicatio ns:CKD (chronic kidney disease) stage 5, GFR less than 15 ml/min (HCC) Take 1 Packet by mouth in the morning. 30 Packet 5 04/21/2023 12/03/19 24 Discontinued amLODIPine Besylate 10 MG Oral Tablet (Norvasc)Indicatio ns:CKD (chronic kidney disease) stage 5, GFR less than 15 ml/min (HCC) Take 0.5 Tablets by mouth in the morning. 45 Tablet 3 09/08/2023 12/03/19 24 Discontinued documented as of this encounter (statuses as [...] Sign Reading Time Taken Comments Blood Pressure 128/60 12/03/2023 11:07 AM EST Pulse 60 12/03/2023 11:07 AM EST Temperature - - Respiratory Rate 14 12/03/2023 11:07 AM EST Oxygen Saturation - - Inhaled Oxygen Concentration - - Weight 84.8 kg (187 lb) 12/03/2023 11:07 AM EST Height - - Body Mass Index 28.43 03/28/2023 2:18 PM EDT documented in this encounter Progress Notes * Rick Tan DO - 12/03/2023 11:33 AM EST SUBJECTIVE: Patient returns today for hospital follow-up. Admitted to [facility] 10/13/2023 with generalized malaise and palpitations with increasing 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 Atrial flutter with rapid ventricular response and right bundle- branch block noted on admission. Diagnosed with unprovoked, acute, multiple bilateral pulmonary emboli per CT scan. Prescribed amiodarone with spontaneous conversion to sinus rhythm. Echocardiogram suggestive of asymmetric left ventricular hypertrophy without LV outflow tract obstruction. Here today with his son. Patient is a poor historian. Notes mild dyspnea on exertion which has improved since discharge. No palpitations, lightheadedness, dizziness, syncope, or near syncope. Mild bilateral lower extremity edema above sock line stable and unchanged. Performing peritoneal dialysis at home. Denies history of sudden cardiac in first-degree relatives. Denies personal history ofsyncope or near syncope. No sustained ventricular dysrhythmia per telemetry during recent hospitalization. ECG: Sinus rhythm with first-degree AV block, right bundle branch block, left anterior fascicular block. 2D echocardiogram report October 13, 2023: The rhythm is atrial fibrillation with rapid ventricular response. Left ventricle is small and under filled. LVEF >70% Asymmetric hypertrophy of the left ventricular septum measuring 2.0 cm. No significant left ventricular outflow tract gradient. ROS: All others negative other than those noted in the HPI. Patient Active Problem List Diagnosis Code CKD (chronic kidney disease) stage 5, GFR less than 15 ml/min ([facility]) N18.5 Peripheral vascular disease with claudication ([facility]) I73.9 HTN, goal below 130/80 I10 Social History Tobacco Use Smoking status: Former Types: Cigars Smokeless tobacco: Never Tobacco comments: 3-4 Cigars per day Vaping Use Vaping Use: Never used Substance Use Topics Alcohol use: Yes Comment: 4 mixed drinks per week Drug use: Never Review of patient's allergies indicates: No Known Allergies Current Outpatient Medications Medication Sig Dispense Refill Nutra/Shake Oral Liquid TAKE ONE BY MOUTH EVERY DAY TO SUPPLEMENT NUTRIENT INTAKE Renal Vitamin 0.8 MG Oral Tablet Take 1 Tablet by mouth in the morning. 90 Tablet 3 Carvedilol 12.5 MG Oral Tablet (Coreg) Take 1 Tablet by mouth in the morning and 1 Tablet before bedtime. 180 Tablet 3 Docusate Sodium 50 MG Oral Capsule Take by mouth 2 times a day. Gentamicin Sulfate 0.1 % External Cream Apply topically to affected area daily. Apply to exit site after treatment daily. 30 g 3 Amiodarone HCl 200 MG Oral Tablet (Pacerone) Take 1 Tablet by mouth in the morning. Warfarin Sodium 5 MG Oral Tablet (Coumadin) Take 1 Tablet by mouth in the morning. OR DIRECTED BY THE COUMADIN. Potassium Chloride Rimma ER 10 MEQ Oral Tablet Extended Release Take 1 Tablet by mouth in the morning. (Patient not taking: Reported on 12/03/2023) No current facility-administered medications for this visit. CBC Results: Results for orders placed or performed in visit on 10/07/23 CBC Result Value Ref Range WBC 9.26 4.00 - 10.80 K/uL RBC 4.42 4.50 - 5.25 M/uL HGB 13.6 (L) 14.0 - 16.8 g/dL HCT 41.5 40.0 - 48.4 % MCV 93.9 82.0 - 99.5 fL MCH 30.8 27.0 - 34.0 pg MCHC 32.8 32.0 - 36.0 g/dL RDW 17.7 11.5 - 15.5 % PLT 208 140 - 400 K/uL MPV 9.8 6.6 - 11.1 fL OBJECTIVE/PHYSICAL EXAMINATION: BP 128/60 | Pulse 60 | Resp 14 | Wt 84.8 kg (187 lb) | BMI 28.43 kg/m | BSA 2.02 m General: NAD, awake and alert, poor historian. HEENT: Normocephalic. Atraumatic. Conjunctiva pink, no scleral icterus. No carotid bruits, the carotid upstrokes are brisk. No JVD. No HJR Heart: Regular normal S-1 and S-2 no S-3 or S-4 gallop. 2/6 systolic ejection murmur heard best at the right 2nd intercostal space. PMI is not displaced. No RV heave. Lungs: Clear bilateral without rales , rhonchi, or wheeze. Abdomen: Normal bowel sounds. Soft. Nontender. No masses or organomegaly. No abdominal bruits. Extremities: Trace bilateral pretibial edema above the sock line. Pulses: radial=2/4, posterior tibial=2/4. Neuro: No focal deficits. ASSESSMENT: 1. Paroxysmal atrial flutter -rhythm control with amiodarone and appropriately anticoagulated with warfarin -underlying conduction disease including first-degree AV block, right bundle branch block, and leftanterior fascicular block. 2. Hypertrophic cardiomyopathy - septal thickness 2.0cm - No significant left ventricular outflow tract obstruction. 3. Unprovoked bilateral pulmonary embolus 4. End-stage renal disease on peritoneal dialysis PLAN: Comprehensive metabolic panel Tsh with free t4 if indicated Cbc with wbc differential Mri cardiac, adult w wo contrast Genetics referral op Ekg Natural history and pathophysiology of atrial flutter and hypertrophic cardiomyopathy discussed. Continue rhythm control strategy with amiodarone and anticoagulation with warfarin. Underlying conduction disease noted. Continued observation recommended at this time. Patient and his son will monitor for any lightheadedness, dizziness, syncope, or near syncope. Consider reducing amiodarone to 100 mgdaily in future pending follow-up assessment. No indication for ICD at this time. Will discuss cardiac MRI with patient's ed special education teacher given underlying end-stage renal disease. May need to consider performing study without contrast. Patient agreeable to genetic testing. Update lab studies today including comprehensive metabolic panel, TSH, and CBC. All questions answered to satisfaction of both the patient and his son. Follow Up: Return in about 4 months (around 04/02/2024). I spent a total of 40-54 minutes (exact time 40 mins) on the date of service in preparation, delivery, and documentation of the care provided to Monster Samson excluding any time spent in the performance of separately billed services. Rick Tan DO, [facility] Associate Cardiology - Ankit Razo documented in this encounter Nursing Notes * Tasia Chaudhari LPN - 12/03/2023 11:03 AM EST Examination Room: 11 Name: Monster Samson Date of : 1945 Reason for Visit: Hospital follow up Problems/Concerns: SOB episodes Interim Hosp(s): denies Chest Pain/SOB: Denies today MyChart Discussed: ALREADY ACTIVE Patient was instructed to not get up on the exam table until directed and assisted by their provider; patient is to remain seated in the chair/ wheelchair/ exam table for fall prevention and safety reasons. Patient is aware staff will assist stepping down off exam table with personnel. documented in this encounter Plan of Treatment Upcoming Encounters Date Type Department Care Team (Late st Contact Info) Description 03/31/2024 12:30 PM EDT Laboratory Laboratory, [address] [phone] [address] [address] 04/07/2024 12:30 PM EDT Office [facility] [address] [facility] [place] [address] Tara Marquez MD [address] [facility] [place] [address] Pending Results Name Type Priority Associated Diagnoses Date /Time TSH WITH FREE T4 IF INDICATED Lab Routine Atypical atrial flutter (HCC) 12/03/2023 12:13 PM EST Scheduled Orders Name Type Priority Associated Diagnoses Orde r Schedule TSH WITH FREE T4 IF INDICATED Lab Routine Atypical atrial flutter (HCC) Expected: 12/03/2023 (Approximate), Expires: 12/03/2024 MRI CARDIAC, ADULT W WO CONTRAST Medical Imaging Routine Hypertrophic cardiomyopathy (HCC) Expected: 12/04/2023, Expires: 12/31/2024 Scheduled Referrals Name Type Priority Associated Diagnoses Orde r Schedule GENETICS REFERRAL OP Referral Within 10 days (routine) Atypical atrial flutter (HCC) Ordered: 12/03/2023 Health Maintenance Due Date Last Done Comments [...] Not on filedocumented as of this encounter Results * (ABNORMAL) COMPREHENSIVE METABOLIC PANEL (12/03/2023 12:13 PM EST) BUN 41(H) 6 - 20 mg/dL 12/03/2023 1:42 PM EST [facility] [place] [facility] Creatinine 6.3(H) 0.6 - 1.2 mg/dL 12/03/2023 1:42 PM EST [facility] [place] [facility] Estimated Glomerular Filtration Rate 9(L) >=60 mL/min 12/03/2023 1:42 PM EST [facility] [place] [facility]10 Comment:eGFR is calculated b ased on the CKD-EPI 2020 equation Sodium 137 135 - 146 mmol/L 12/03/2023 1:42 PM EST [facility] [place] [facility] Potassium 4.3 3.5 - 5.1 mmol/L 12/03/2023 1:42 PM EST [facility] [place] [facility] Chloride 95(L) 98 - 107 mmol/L 12/03/2023 1:42 PM EST [facility] [place] [facility] CO2 23 22 - 32 mmol/L 12/03/2023 1:42 PM EST [facility] [place] [facility] Anion Gap 19(H) 7 - 15 mmol/L 12/03/2023 1:42 PM EST [facility] [place] [facility] Glucose 131(H) 70 - 120 mg/dL 12/03/2023 1:42 PM EST [facility] [place] [facility] Albumin 4.1 3.8 - 5.0 g/dL 12/03/2023 1:42 PM EST [facility] [place] [facility] AST 25 10 - 50 U/L 12/03/2023 1:42 PM EST [facility] [place] [facility] 57[facility]10 Alkaline Phosphatase 56 35 - 130 U/L 12/03/2023 1:42 PM EST [facility] [place] [facility] Bilirubin, Total 0.4 <=1.2 mg/dL 12/03/2023 1:42 PM EST [facility] [place] [facility] Calcium 9.2 8.4 - 10.2 mg/dL 12/03/2023 1:42 PM EST [facility] [place] [facility] Protein 6.5 6.0 - 8.3 g/dL 12/03/2023 1:42 PM EST [facility] [place] [facility] 57[facility]10 ALT 33 10 - 50 U/L 12/03/2023 1:42 PM EST [facility] [place] [facility] 57[facility]10 Blood Venous blood specimen / Unknown Venipuncture / Unknown 12/03/2023 12:13 PM EST 12/03/2023 12:13 PM EST Rick Tan DO LAB BLOOD ORDERABLE S Performing Organization Address City/State/[facility] [[email or web address]] Co de Phone Number [facility] [place] [phone] [place] [phone] * EKG (12/03/2023 11:41 AM EST) 12/03/2023 11:4 1 AM EST Narrative Procedure Note Rick Tan DO - 12/03/2023 11:41 AM EST REASON FOR STUDY: amiodarone, hospital follow up CONCLUSIONS: Sinus rhythm with 1st degree AV block Right bundle branch block Left anterior fascicular block Bifascicular block Septal infarct , age undetermined Possible Lateral infarct , age undetermined Abnormal ECG No previous ECGs available Ventricular Rate: 61 Atrial Rate: 61 LA Interval: 222 QRS Duration: 164 QT/QTc: 524/527 ms P-R-T [place]: 43 : -67 : 38 degrees Rick Tan DO EKG Performing Organization Address City/State/[facility] [[email or web address]] Co de Phone Number [facility] documented in this encounter Visit Diagnoses Diagnosis Atypical atrial flutter (HCC)- Primary Atrial flutter Paroxysmal atrial fibrillation (HCC) Atrial fibrillation Bilateral pulmonary embolism (HCC) Other pulmonary embolism and infarction Hypertrophic cardiomyopathy (HCC) Other hypertrophic cardiomyopathy Hospital discharge follow-up Other follow-up examination Paroxysmal atrial fibrillation (HCC) Atrial fibrillation documented in this encounter Care Teams Filter Bed Placer Relationship Specialty Start Date End Date Debbie Arango MD [address] [facility] [place] [address] PCP - General Internal Medicine 03/04/23 documented as of this encounter"
--- OUTSIDE RECORDS SUMMARY | 2024-04-12 21:58 | External Medical Summary | Summary of Care ---
Author Name Unknown Organization [facility] Address [address] [place] [address] Phone [phone] Care Team Providers Care Practice Architect Name Role Phone Debbie Arango MD Primary Care Provider Reason for Visit * Reason Onset Date Comments Advice 12/18/2023 Encounter Details Date Type Department Care Team (Late st Contact Info) Description 12/18/2023 Telephone Nephrology, [place] [address] [place] [address] GalvanTeena gomez MD [address] [place] [address] Advice Allergies No known active allergiesdocumented as [...] encounter Miscellaneous Notes * Telephone Encounter - Gaby Boone OSA [...] Description 03/31/2024 12:30 PM EDT Laboratory Laboratory, [place] [address] [facility], [place] [phone] [place], Laboratory [address] [facility], [place] [address] 04/07/2024 12:30 PM EDT Office [facility] [place] [address] [facility] [place], [place] [address] Tara Marquez MD [address] [facility] [place], [place] [address] Health Maintenance Due Date Last Done Comments [...] filedocumented as of this encounter Care Teams Practice Architect Relationship Specialty Start Date End Date Debbie Arango MD [address] [facility] [place] [address] PCP - General Internal Medicine 03/04/23 documented as of this encounter
--- OUTSIDE RECORDS SUMMARY | 2024-04-12 21:58 | External Medical Summary | Summary of Care ---
Author Name Unknown Organization [facility] Address [address] [place] [address] Phone [phone] Care Team Providers Care Online Education Manager Name Role Phone Debbie Arango MD Primary Care Provider Reason for Visit * Reason Onset Date Comments Advice 12/18/2023 Encounter Details Date Type Department Care Team (Late st Contact Info) Description 12/18/2023 Telephone Nephrology, [place] [address] [place] [address] GalvanTeena gomez MD [address] [place] [address] Advice Allergies No known active allergiesdocumented as of this encounter (statuses as of 12/19/2023) Medications Medication Sig Dispensed Refills Start Date [...] as of this encounter (statuses as of 12/19/2023) Active Problems Problem Noted Date Diagnosed Date CKD (chronic kidney disease) stage 5, GFR less than 15 ml/min 05/21/2023 Peripheral vascular disease with claudication HTN, goal below 130/80 05/21/2023 documented as of this encounter (statuses as of 12/19/2023) Social History Tobacco Use Types Packs/Day Years [...] encounter Miscellaneous Notes * Telephone Encounter - Teena Galvan MD [...] contraindicated >>> Please forward this to the [facility] peritoneal dialysis nurse who can follow-up on [...] Description 03/31/2024 12:30 PM EDT Laboratory Laboratory, [place] [address] [place] [address] [place] [address] [place] [address] 04/07/2024 12:30 PM EDT Office Visit Hematology/Oncology [facility] [place] [address] [facility] [place] [phone] Tara Marquez MD [address] [facility] [place] [address] Health Maintenance Due Date Last Done Comments [...] filedocumented as of this encounter Care Teams Online Education Manager Relationship Specialty Start Date End Date Debbie Arango MD [address] [facility] [place] [address] PCP - General Internal Medicine 03/04/23 documented as of this encounter
--- OUTSIDE RECORDS SUMMARY | 2024-04-12 21:58 | External Medical Summary | Summary of Care ---
Author Name Unknown Organization [facility] Address [address] [place] [address] Phone [phone] Care Team Providers Care Plastic Printer Name Role Phone Debbie Arango MD Primary Care Provider Encounter Details Date Type Department Care Team (Late st Contact Info) Description 01/13/2024 Telephone Gastroenterology, [facility] [address] [place] [address] Adriana Paulson CRNP [address] [place] [address] Allergies No known active allergiesdocumented as of this encounter (statuses as of 01/13/2024) Medications Medication Sig Dispensed Refills Start Date [...] as of this encounter (statuses as of 01/13/2024) Active Problems Problem Noted Date Diagnosed Date CKD (chronic kidney disease) stage 5, GFR less than 15 ml/min 05/21/2023 Peripheral vascular disease with claudication HTN, goal below 130/80 05/21/2023 documented as of this encounter (statuses as of 01/13/2024) Social History Tobacco Use Types Packs/Day Years [...] encounter Miscellaneous Notes * Telephone Encounter - Laurie Liu OSA - 01/13/2024 2:37 PM EDT Pt calling in to set procedure up she can be reached at [phone] Thanks documented in this encounter Plan of Treatment Upcoming Encounters Date Type Department Care Team (Late st Contact Info) Description 03/31/2024 12:30 PM EDT Laboratory Laboratory, [place] [address] [facility] [place] [address] [place], Laboratory [address] [facility] [place] [address] 06/30/2024 1:00 PM EDT Cardiac Studies Cardiac Studies, [facility] [address] [place] [address] Health Maintenance Due Date Last Done Comments [...] filedocumented as of this encounter Care Teams Plastic Printer Relationship Specialty Start Date End Date Debbie Arango MD [address] [facility] [place] [address] PCP - General Internal Medicine 03/04/23 documented as of this encounter
--- OUTSIDE RECORDS SUMMARY | 2024-04-12 21:58 | External Medical Summary | Summary of Care ---
Author Name Unknown Organization [facility] Address [address] [place] [address] Phone [phone] Care Team Providers Care Speech And Hearing Director Name Role Phone Debbie Arango MD Primary Care Provider Reason for Visit * Reason Onset Date Comments Advice 12/18/2023 Encounter Details Date Type Department Care Team (Late st Contact Info) Description 12/18/2023 Telephone Nephrology, [place] [address] [place] [address] GalvanTeena gomez MD [address] [place] [address] Advice Allergies No known active allergiesdocumented as [...] 12/24/2023 11:28 AM EST Call placed to [facility] OR- Spoke with staff member who transferred me to the staff handling supplies for the OR She is unable to access his records to research this information. She recommended calling Dr Spann's office for a copy of the OR record as it should have the product information in the record. DIG called to request Medical records. * Telephone Encounter - Teena Galvan MD - 12/23/2023 3:28 PM EST Pt had catheter placed by Dr Spann approx Sep 2023 > has a titanium connector. PA w/ surgeon states cardiac MRI should be ok but recommends pls call OR [facility] and ask OR to check packaging for his catheter >> pls call them * Telephone Encounter - Stefanie Gasca RN - 12/23/2023 10:44 AM EST Information faxed to [facility]. * Telephone Encounter - Teena Galvan [...] contraindicated >>> Please forward this to the [facility] peritoneal dialysis nurse who can [...] Description 03/31/2024 12:30 PM EDT Laboratory [facility], [place] [address] [facility] [address] [place], Laboratory [address] [facility], [place] [address] 04/07/2024 12:30 PM EDT Office Visit Hematology/Oncology [place] [address] [facility], [place] [address] Tara Marquez MD [address] [facility] [place], [place] [address] Health Maintenance Due Date Last Done Comments [...] filedocumented as of this encounter Care Teams Speech And Hearing Director Relationship Specialty Start Date End Date Debbie Arango MD [address] [facility] [place] [address] PCP - General Internal Medicine 03/04/23 documented as of this encounter
--- OUTSIDE RECORDS SUMMARY | 2024-04-12 21:58 | External Medical Summary | Summary of Care ---
Author Name Unknown Organization [facility] Address [address] [place] [address] Phone [phone] Care Team Providers Care Director Energy Name Role Phone Debbie Arango MD Primary Care Provider Reason for Visit * Reason Onset Date Comments Advice 12/05/2023 Clarify medicati on Encounter Details Date Type Department Care Team (Late st Contact Info) Description 12/05/2023 Telephone Cardiology, [facility] [address] [place] [address] Rick Tan, [address] [place] [address] Advice (Clarify medication) Allergies No known active [...] 180 Tablet 3 09/08/2023 Active Potassium Chloride Rimam ER 10 MEQ Oral Tablet Extended Release [...] Encounter - Sherron Son LPN - 12/08/2023 1:57 PM EST Corrected in epic, it did say in the notes pt takes this once daily, not sure what the confusion was, [facility] aware [facility], still unable to reach them. * Telephone Encounter - Sherron Son LPN [...] - 12/05/2023 1:59 PM EST Person calling:Deon otero/[facility] Relationship to patient: [place] Number to return call: [phone] Reason for call: Pt & son said [...] Description 03/31/2024 12:30 PM EDT Laboratory Laboratory, [place] [address] [phone] Daron Smith [address] [address] 04/07/2024 12:30 PM EDT Office Visit Hematology/Oncology [place] [address] [address] [place] [phone] Tara Marquez MD [address] [facility] [address] Health Maintenance Due Date Last Done Comments [...] as of this encounter Care Teams Director Energy Relationship Specialty Start Date End Date Debbie Arango MD [address] [facility] [place] [address] PCP - General Internal Medicine 03/04/23 documented as of this encounter
--- OUTSIDE RECORDS SUMMARY | 2024-04-12 21:58 | External Medical Summary | Summary of Care ---
Author Name Unknown Organization [facility] Address [address] [place] [address] Phone [phone] Care Team Providers Care Customer Service Technician Name Role Phone Debbie Arango MD Primary Care Provider Reason for Visit * Reason Onset Date Comments Advice 12/18/2023 Encounter Details Date Type Department Care Team (Late st Contact Info) Description 12/18/2023 Telephone Nephrology, Amna Heredia [address] [place] [address] GalvanTeena gomez MD [address] [place] [address] Advice Allergies No known active allergiesdocumented as [...] be ok but recommends pls call [facility] and ask OR to check packaging for his catheter >> pls call them * Telephone Encounter - Stefanie Gasca RN - 12/23/2023 10:44 AM EST Information faxed to [facility]. * Telephone Encounter - Teena [...] contraindicated >>> Please forward this to the [facility] peritoneal dialysis nurse who can follow-up [...] EDT Laboratory Laboratory, [place] [address] [phone] [facility] [address] [facility] [place] [phone] 04/07/2024 12:30 PM EDT Office Visit Hematology/Oncology [place] [address] [place], [place] [address] Tara Marquez MD 200 [facility] [place] [address] Health Maintenance Due Date Last Done Comments [...] filedocumented as of this encounter Care Teams Customer Service Technician Relationship Specialty Start Date End Date Debbie Arango MD [address] [facility] [place] [address] PCP - General Internal Medicine 03/04/23 documented as of this encounter
--- OUTSIDE RECORDS SUMMARY | 2024-04-12 21:58 | External Medical Summary | Summary of Care ---
Author Name Unknown Organization [facility] Address [address] [place] [address] Phone [phone] Care Team Providers Care It Security Specialist Name Role Phone Debbie Arango MD Primary Care Provider Encounter Details Date Type Department Care Team (Late st Contact Info) Description 12/06/2023 Orders Only PATIENT PORTAL DO NOT DELETE THIS DEPT USED BY [place] [address] Allergies No known active allergiesdocumented as of this encounter (statuses as of 12/06/2023) Medications Medication Sig Dispensed Refills Start Date [...] as of this encounter (statuses as of 12/06/2023) Active Problems Problem Noted Date Diagnosed Date CKD (chronic kidney disease) stage 5, GFR less than 15 ml/min 05/21/2023 Peripheral vascular disease with claudication HTN, goal below 130/80 05/21/2023 documented as of this encounter (statuses as of 12/06/2023) Social History Tobacco Use Types Packs/Day Years [...] Description 03/31/2024 12:30 PM EDT Laboratory Laboratory, [place] [address] [place] [facility] [place] [address] [place] [facility] [address] [place] [address] 04/07/2024 12:30 PM EDT Office Visit Hematology/Oncology [place] [address] [place] [address] Tara Marquez MD [address] [place] [address] Health Maintenance Due Date Last Done Comments [...] filedocumented as of this encounter Care Teams It Security Specialist Relationship Specialty Start Date End Date Debbie Arango MD [address] [facility] [place] [address] PCP - General Internal Medicine 03/04/23 documented as of this encounter
--- OUTSIDE RECORDS SUMMARY | 2024-04-12 21:58 | External Medical Summary | Summary of Care ---
Author Name Unknown Organization [facility] Address [address] [place] [address] Phone [phone] Care Team Providers Care Plastic Cnc Machine Operator Name Role Phone Debbie Arango MD Primary Care Provider Reason for Visit * Reason Onset Date Comments Advice 12/05/2023 Clarify medicati on Encounter Details Date Type Department Care Team (Late st Contact Info) Description 12/05/2023 Telephone Cardiology, [facility] [address] [place] [address] Rick Tan, [address] [place] [address] Advice (Clarify medication) Allergies No known active [...] - 12/05/2023 1:59 PM EST Person calling:Deon otero/[place] Relationship to patient: [place] Number to return call: [phone] Reason for call: Pt & son said [...] Description 03/31/2024 12:30 PM EDT Laboratory Laboratory, [place] [address] [place] [phone] [place] [address] [place] [address] 04/07/2024 12:30 PM EDT Office Visit Hematology/Oncology Amna Heredia [place] [address] [place] [address] Tara Marquez MD [address] [place] [address] Health Maintenance Due Date Last Done Comments [...] as of this encounter Care Teams Plastic Cnc Machine Operator Relationship Specialty Start Date End Date Debbie Arango MD [address] [facility] [place] [address] PCP - General Internal Medicine 03/04/23 documented as of this encounter
--- OUTSIDE RECORDS SUMMARY | 2024-04-12 21:58 | External Medical Summary | Summary of Care ---
Author Name Unknown Organization [facility] Address [address] [place] [address] Phone [phone] Care Team Providers Care Acting Section Chief Name Role Phone Debbie Arango MD Primary Care Provider Reason for Visit * Reason Onset Date Comments Test Results 01/14/2024 Encounter Details Date Type Department Care Team (Late st Contact Info) Description 01/14/2024 Telephone Nephrology, [place] [address] [place] [address] Teena Galvan MD 200 [place] [address] Test Results Allergies No known active allergiesdocumented as of this encounter (statuses as of 01/14/2024) Medications Medication Sig Dispensed Refills Start Date [...] as of this encounter (statuses as of 01/14/2024) Active Problems Problem Noted Date Diagnosed Date CKD (chronic kidney disease) stage 5, GFR less than 15 ml/min 05/21/2023 Peripheral vascular disease with claudication HTN, goal below 130/80 05/21/2023 documented as of this encounter (statuses as of 01/14/2024) Social History Tobacco Use Types Packs/Day Years [...] Telephone Encounter - Stefanie Gasca RN - 01/14/2024 8:58 AM EDT Te with PD nurse Melissa Olivier Will update pt and encourage better bowel regimen. * Telephone Encounter - Stefanie Gasca RN - 01/14/2024 8:58 AM EDT ----- Message from Teena Galvan MD sent at 01/13/2024 9:11 PM EDT ----- KUB with moderate stool burden in the colon and chest x-ray clear. PD catheter is in the pelvis >>needs to work on bowel regimen in addition to improving UF/ getting weight down >>pls contact PD nurse and she can convey above to pt >> nurse is Melissa Damian at [facility] documented in this encounter Plan of Treatment Upcoming Encounters Date Type Department Care Team (Late st Contact Info) Description 03/31/2024 12:30 PM EDT Laboratory Laboratory, [place] [address] [facility] [place] [address] [facility] Laboratory [address] [place], [place] [phone] 06/30/2024 1:00 PM EDT Cardiac Studies Cardiac Studies, [facility] [address] [place] [address] Health [...] filedocumented as of this encounter Care Teams Acting Section Chief Relationship Specialty Start Date End Date Debbie Arango MD 290[address] [facility] [place] [address] PCP - General Internal Medicine 03/04/23 documented as of this encounter
--- OUTSIDE RECORDS SUMMARY | 2024-04-12 21:59 | External Medical Summary ---
Author Name Unknown Address Unknown Organization K01:LABORATORY [facility] - [address] [facility] [address] Laboratory Report Ordering Provider Test Date Status MERON MINOR 12/03/2023 12:13:12 Final Observation Date Value Abnormality Reference (Units ) Status TSH 12/03/2023 12:13:12 7.70 Above high normal 0. 27-4.20 (uIU/mL) Final Performing Location LABORATORY [facility] - [address] [facility] [address]
--- OUTSIDE RECORDS SUMMARY | 2024-04-12 21:59 | External Medical Summary ---
Author Name Unknown Address Unknown Organization K01:[facility]AT[facility] - [address] [place] [address] Laboratory Report Ordering Provider Test Date Status MERNO MINOR 12/03/2023 12:13:12 Final Observation Date Value Abnormality Reference (Units ) Status T4, Free 12/03/2023 12:13:12 1.5 0.9-1.7 (n g/dL) Final Performing Location LABORATORY [facility] - [address] [place] [address]
--- OUTSIDE RECORDS SUMMARY | 2024-04-12 21:59 | External Medical Summary | Summary of Care ---
Author Name Unknown Organization [facility] Address [address] [place] [address] Phone [phone] Care Team Providers Care Malt House Kiln Operator Name Role Phone Debbie Arango MD Primary Care Provider Reason for Visit * Reason Onset Date Comments Advice 11/06/2023 Encounter Details Date Type Department Care Team (Late st Contact Info) Description 11/06/2023 Telephone Cardiology, [facility] [address] [place] [address] Monster Gary, [address] [place] [address] Advice Allergies No known active allergiesdocumented as of this encounter (statuses as of 11/07/2023) Medications Medication Sig Dispensed Refills Start Date End Date Status Nutra/Shake Oral LiquidIndications:CK D (chronic kidney disease) stage 5, GFR less than 15 ml/min (HCC) TAKE ONE BY MOUTH EVERY DAY TO SUPPLEMENT NUTRIENT INTAKE 0 03/20/2023 Active Sodium Bicarbonate 650 MG Oral TabletIndications:CK D (chronic kidney disease) stage 5, GFR less than 15 ml/min (HCC) Take 2 Tablets by mouth in the morning and 2 Tablets before bedtime. 120 Tablet 11 04/17/2023 Active Additional Information Patient not taking.Reported on 10/07/2023 Sodium Zirconium Cyclosilicate 10 GM Oral Packet (Lokelma)Indications :CKD (chronic kidney disease) stage 5, GFR less than 15 ml/min (HCC) Take 1 Packet by mouth in the morning. 30 Packet 5 04/21/2023 Active Additional Information Patient not taking.Reported on 10/21/2023 Renal Vitamin 0.8 MG Oral TabletIndications:CK D (chronic kidney disease) stage 5, GFR less than 15 ml/min (HCC) Take 1 Tablet by mouth in the morning. 90 Tablet 3 09/08/2023 Active amLODIPine Besylate 10 MG Oral Tablet (Norvasc)Indications :CKD (chronic kidney disease) stage 5, GFR less than 15 ml/min (HCC) Take 0.5 Tablets by mouth in the morning. 45 Tablet 3 09/08/2023 Active Additional Information Patient not taking.Reported on 10/07/2023 Carvedilol 12.5 MG Oral Tablet (Coreg)Indications:C KD (chronic kidney disease) stage 5, GFR [...] as of this encounter (statuses as of 11/07/2023) Active Problems Problem Noted Date Diagnosed Date CKD (chronic kidney disease) stage 5, GFR less than 15 ml/min 05/21/2023 Peripheral vascular disease with claudication HTN, goal below 130/80 05/21/2023 documented as of this encounter (statuses as of 11/07/2023) Social History Tobacco Use Types Packs/Day Years [...] encounter Miscellaneous Notes * Telephone Encounter - Monster Gary DO - 11/06/2023 10:52 AM EST I called and spoke to the patient and his (former) spouse, Dyana. Lucius he had been hospitalized at [facility] in September, and was diagnosed with bilateral pulmonary embolism. A lower extremity venous duplex revealed no DVT. Cardiology followed the patient due to episodes of symptomatic paroxysmal atrial flutter and he was discharged on amiodarone for a rhythm control strategy as well as Coumadin for treatment of the pulmonary emboli. His primary care is with the local [facility], and he has been following with the anti coagulation clinic there. He Dyana tell me that there have been adjustments made with his Coumadin, but that he has been within the therapeutic range recently. Lucius was recently assessed by Gastroenterology For dysphagia. A barium swallow performed on 10/31/2023 revealed severe esophageal dysmotility. I had been contacted by Dr. Coello, he was concerned that EGD should be pursued in an expedited fashion if deemed clinically reasonable and he states the procedure could be performed without interrupting anticoagulation given this patient's clinical scenario. About 2 weeks ago the patient had a single episode of recurrent shortness of breath at night that resolved on its own after about 3 hours suggestive of a breakthrough episode of atrial flutter, but he has had no recurrent episodes since. States that his breathing is doing better since he was discharged from the hospital. Although my assessment via interview with the patient by telephone is limited, my impression is that he is clinically stable to proceed with EGD on his current medications without interruption. Plan is for the procedure to be performed at [facility] on 11/12/2023. If when he arrives anesthesia finds that he is hypoxic, and a poor candidate for anesthesia, alternative planned can be pursued. Patient was to keep his follow-up visit with me as scheduled in November. Monster Gary DO 11/06/2023 10:57 AM documented in this encounter Plan of Treatment Upcoming Encounters Date Type Department Care Team (Late st Contact Info) Description 11/26/2023 11:00 AM EST Office Visit Cardiology, [facility] [address] [address] Monster Gary, DO [address] [place] [address] 03/31/2024 12:30 PM EDT Laboratory Laboratory, [place] [address] [facility] [place] [phone] [place], Laboratory [address] [place] [facility] [address] 04/07/2024 12:30 PM EDT Office Visit Hematology/Oncology [facility] [place] 200 [facility] [place] [address] Tara Marquez MD 200 [facility] [place] [address] Health Maintenance Due Date Last Done Comments [...] filedocumented as of this encounter Care Teams Malt House Kiln Operator Relationship Specialty Start Date End Date Debbie Arango MD [address] [facility] [place] [address] PCP - General Internal Medicine 03/04/23 documented as of this encounter
--- OUTSIDE RECORDS SUMMARY | 2024-04-12 21:59 | External Medical Summary | Summary of Care ---
Author Name Unknown Organization [facility] Address [address] [place] [address] Phone [phone] Care Team Providers Care Through Operator Name Role Phone Debbie Arango MD Primary Care Provider Encounter Details Date Type Department Care Team (Late st Contact Info) Description 11/27/2023 Telephone Gastroenterology, [facility] [place] [address] Salena العلي MD 132 [facility] [place] [address] Allergies No known active allergiesdocumented as of this encounter (statuses as of 11/27/2023) Medications Medication Sig Dispensed Refills Start Date [...] treatment daily. 30 g 3 11/18/2023 Active documented as of this encounter (statuses as of 11/27/2023) Active Problems Problem Noted Date Diagnosed Date CKD (chronic kidney disease) stage 5, GFR less than 15 ml/min 05/21/2023 Peripheral vascular disease with claudication HTN, goal below 130/80 05/21/2023 documented as of this encounter (statuses as of 11/27/2023) Social History Tobacco Use Types Packs/Day Years [...] Team (Late st Contact Info) Description 12/03/2023 11:00 AM EST Office Visit Cardiology, [facility] [address] [facility] [place] [address] Rick Tan DO [address] [facility] [place] [address] 03/31/2024 12:30 PM EDT Laboratory Laboratory, [address] [phone] [address] [address] 04/07/2024 12:30 PM EDT Office Visit Hematology/Oncology [facility] [place] [facility] 200 [facility] [place] [address] Tara Marquez MD 200 [facility] [place] [address] Health Maintenance Due Date Last Done Comments [...] filedocumented as of this encounter Care Teams Through Operator Relationship Specialty Start Date End Date Debbie Arango MD 2907 [facility] [place] [address] PCP - General Internal Medicine 03/04/23 documented as of this encounter
--- OUTSIDE RECORDS SUMMARY | 2024-04-12 21:59 | External Medical Summary | Summary of Care ---
Author Name Unknown Organization [facility] Address [address] [place] [address] Phone [phone] Care Team Providers Care Quarantine Officer Name Role Phone Debbie Arango MD Primary Care Provider Reason for Referral * Precert (Within 10 days (routine)) - Authorized Specialty Diagnoses / Procedures Referred By Valarie t Referred To Contact Diagnoses Achalasia of esophagus Dysphagia Procedures ESOPHAGEAL MOTILITY STUDY Salena العلي MD [address] [place] [address] Salena العلي MD [address] [place] [address] Referral ID Status Reason Start Date Expiration Date V isits Requested Visits Authorized [id number] Authorized Precert 07/21/2023 04/18/2024 999 999 Reason for Visit * Reason Onset Date Comments Scheduling 11/07/2023 Encounter Details Date Type Department Care Team (Late st Contact Info) Description 11/07/2023 Telephone Gastroenterology, [facility] [address] [place] [address] Salena العلي MD [address] [place] [address] Scheduling Allergies No known active allergiesdocumented as of this encounter (statuses as of 11/10/2023) Medications Medication Sig Dispensed Refills Start Date [...] as of this encounter (statuses as of 11/10/2023) Active Problems Problem Noted Date Diagnosed Date CKD (chronic kidney disease) stage 5, GFR less than 15 ml/min 05/21/2023 Peripheral vascular disease with claudication HTN, goal below 130/80 05/21/2023 documented as of this encounter (statuses as of 11/10/2023) Social History Tobacco Use Types Packs/Day Years [...] encounter Miscellaneous Notes * Telephone Encounter - Deya Quintana RN - 11/10/2023 1:56 PM EST I left an additional message for the patient to return my call. * Telephone Encounter - Deya Quintana RN - 11/07/2023 5:31 PM EST I called and left a detailed message to offer an EMOT test on 11/11 * Telephone Encounter - Deya Quintana RN - 11/07/2023 5:28 PM EST Esophageal Manometry Referring: Salena العلي Indication: dysphagia, suspect achalasia EGD: pending scheduling Barium Swallow: Esophagram and recent CT suggest achalasia. Will perform diagnostic EGD to help rule out pseudoachalasia and plan for therapy, and plan for e mot referral. Prior Auth Outcome: Ht:[id number] [id number] documented in this encounter Plan of Treatment Upcoming Encounters Date Type Department Care Team (Late st Contact Info) Description 11/26/2023 11:00 AM EST Office Visit Cardiology, [facility] [address] [place] [address] Monster Gary DO [address] [place] [address] 03/31/2024 12:30 PM EDT Laboratory Laboratory, [place] [address] [place] [phone] [place], Laboratory [address] [place] [address] 04/07/2024 12:30 PM EDT Office Visit Hematology/Oncology [facility] [place] 200 [facility] [place] [address] Tara Marquez MD 200 [facility] [place] [address] Scheduled Orders Name Type Priority Associated Diagnoses Orde r Schedule ESOPHAGEAL MOTILITY STUDY Procedures Routine Achalasia of esophagus Dysphagia Ordered: 11/07/2023 Health Maintenance Due Date Last Done Comments [...] as of this encounter Visit Diagnoses Diagnosis Dysphagia- Primary Dysphagia, unspecified Achalasia of esophagus Achalasia and cardiospasm documented in this encounter Care Teams Quarantine Officer Relationship Specialty Start Date End Date Debbie Arango MD 290[address] [facility] [place] [address] PCP - General Internal Medicine 03/04/23 documented as of this encounter
--- OUTSIDE RECORDS SUMMARY | 2024-04-12 21:59 | External Medical Summary ---
Author Name Unknown Address Unknown Organization K0G:LABORATORY [facility] [address] - [address] [place] [address] Laboratory Report Ordering Provider Test Date Status MERON MINOR 12/03/2023 12:13:12 Final Observation Date Value Abnormality Reference (Units ) Status BUN 12/03/2023 12:13:12 41 Above high normal 6-20 (mg/dL) Final Creatinine 12/03/2023 12:13:12 6.3 Above high normal 0.6-1.2 (mg/dL) Final Glomerular filtration rate/1.73 sq M.predicted [Volume Rate/Area] in Serum, Plasma or Blood by Creatinine-based formula (CKD-EPI) 12/03/2023 12:13:12 9 Below low normal >=60 (mL/min) Final eGFR is calculated based on the CKD-EPI 2020 equation SODIUM 12/03/2023 12:13:12 137 135-146 (m mol/L) Final Potassium 12/03/2023 12:13:12 4.3 3.5-5.1 (m mol/L) Final Cl 12/03/2023 12:13:12 95 Below low normal 98- 107 (mmol/L) Final CO2 12/03/2023 12:13:12 23 22-32 (mmo l/L) Final Anion gap 12/03/2023 12:13:12 19 Above high normal 7- 15 (mmol/L) Final Glucose 12/03/2023 12:13:12 131 Above high normal 70 -120 (mg/dL) Final Albumin 12/03/2023 12:13:12 4.1 3.8-5.0 (g /dL) Final AST (Aspartate aminotransferase) 12/03/2023 12:13:12 25 10-50 (U/L) Fin al Alk Phos 12/03/2023 12:13:12 56 35-130 (U/ L) Final Bilirubin, Total 12/03/2023 12:13:12 0.4 <=1 .2 (mg/dL) Final Calcium 12/03/2023 12:13:12 9.2 8.4-10.2 ( mg/dL) Final Protein 12/03/2023 12:13:12 6.5 6.0-8.3 (g /dL) Final ALT (Alanine aminotransferase) 12/03/2023 12:13:12 33 10-50 (U/L) [place] Performing Location LABORATORY [place] [address] - [address] [facility] [address]
--- OUTSIDE RECORDS SUMMARY | 2024-04-12 21:59 | External Medical Summary | Summary of Care ---
Author Name Unknown Organization [facility] Address [address] [place] [address] Phone [phone] Care Team Providers Care Picker/Puller Name Role Phone Debbie Arango MD Primary Care Provider Reason for Referral * Precert (Within 10 days (routine)) - Pending Review Specialty Diagnoses / Procedures Referred By Valarie t Referred To Contact Diagnoses Achalasia of esophagus Dysphagia Procedures ESOPHAGEAL MOTILITY STUDY Salena العلي MD [address] [employer] [place] [id number] Referral ID Status Reason Start Date Expiration Date V isits Requested Visits Authorized [id number] Pending Review 11/07/2023 999 999 Reason for Visit * Reason Onset Date Comments Scheduling 11/07/2023 Encounter Details Date Type Department Care Team (Late st Contact Info) Description 11/07/2023 Telephone Gastroenterology, [facility] [address] [place] [address] Salena العلي MD [address] [place] [address] Scheduling Allergies No known active allergiesdocumented as [...] times a day. 0 Active Potassium Chloride [facility] ER 10 MEQ [...] 11/26/2023 11:00 AM EST Office Visit Cardiology, [facility] [address] [place] [address] Monster Gary, [address] [place] [address] 03/31/2024 12:30 PM EDT Laboratory Located Within [facility], [address] [place] [address] [place], Located Within [facility] [address] [place] [address] 04/07/2024 12:30 PM EDT Office Visit Hematology/Oncology [facility] [address] [facility] [place] [address] Tara Marquez MD 200 [facility] [place] [address] Scheduled Orders Name Type Priority Associated Diagnoses [...] cardiospasm documented in this encounter Care Teams Picker/Puller Relationship Specialty Start Date End Date Debbie Arango MD [address] [facility] [place] [address] PCP - General Internal Medicine 03/04/23 documented as of this encounter
--- OUTSIDE RECORDS SUMMARY | 2024-04-12 21:59 | External Medical Summary | Summary of Care ---
Author Name Unknown Organization [facility] Address [address] [place] [address] Phone [phone] Care Team Providers Care Manager Educational Name Role Phone Debbie Arango MD Primary Care Provider Reason for Visit * Reason Onset Date Comments Appointment 12/03/2023 Encounter Details Date Type Department Care Team (Late st Contact Info) Description 12/03/2023 Telephone Cardiology, [facility] [address] [place] [address] Rick Tan, [address] [place] [address] Appointment Allergies No known active allergiesdocumented as [...] encounter Miscellaneous Notes * Telephone Encounter - Eli Degroot OSA - 12/03/2023 12:09 PM EST Cardiac MRI needed per Dr. Tan. documented in this encounter Plan of Treatment Upcoming Encounters Date Type Department Care Team (Late st Contact Info) Description 12/03/2023 12:40 PM EST Laboratory [facility], [facility] [phone] [facility] [address] [facility] [address] Atypical atrial flutter (HCC) 03/31/2024 12:30 PM EDT Laboratory Laboratory, [place] [address] [place] [phone] [facility] [address] [place] [address] 04/07/2024 12:30 PM EDT Office Visit Hematology/Oncology [facility] 200 [place] [address] Tara Marquez MD [address] [facility] [place] [address] Health Maintenance Due Date Last Done Comments [...] filedocumented as of this encounter Care Teams Manager Educational Relationship Specialty Start Date End Date Debbie Arango MD [address] [facility] [place] [address] PCP - General Internal Medicine 03/04/23 documented as of this encounter
--- OUTSIDE RECORDS SUMMARY | 2024-04-12 21:59 | External Medical Summary | Summary of Care ---
Author Name Unknown Organization [facility] Address [address] [place] [address] Phone [phone] Care Team Providers Care Transition Assistant Name Role Phone Debbie Arango MD Primary Care Provider Reason for Visit * Reason Onset Date Comments Med Request 11/17/2023 Encounter Details Date Type Department Care Team (Late st Contact Info) Description 11/17/2023 Telephone [facility] [address] [place] [address] GalvanTeena gomez MD [address] [place] [address] Med Request Allergies No known active allergiesdocumented as of this encounter (statuses as of 11/24/2023) Medications Medication Sig Dispensed Refills Start Date [...] as of this encounter (statuses as of 11/24/2023) Active Problems Problem Noted Date Diagnosed Date CKD (chronic kidney disease) stage 5, GFR less than 15 ml/min 05/21/2023 Peripheral vascular disease with claudication HTN, goal below 130/80 05/21/2023 documented as of this encounter (statuses as of 11/24/2023) Social History Tobacco Use Types Packs/Day Years [...] Telephone Encounter - Stefanie Gasca RN - 11/18/2023 9:57 AM EST [employer] unable to send script to [place] that is why we are sending it per request of [employer] nurse. * Telephone Encounter - Teena Galvan MD - 11/17/2023 4:03 PM EST Pls contact [place] [employer] PD nurse and ask her to renew this so we're not duplicating scripts. I have her contact info if you need it * Telephone Encounter - Stefanie Gasca RN - 11/17/2023 12:17 PM EST RX needed for Exit site post dialysis daily. RX pended for signature. documented in this encounter Plan of Treatment Upcoming Encounters Date Type Department Care Team (Late st Contact Info) Description 03/31/2024 12:30 PM EDT Laboratory [place] [address] [place] [address] [place] [address] [place] [address] 04/07/2024 12:30 PM EDT Office Visit Hematology/Oncology [facility] [address] [place] [address] Tara Marquez MD [address] [place] [address] Health Maintenance Due Date Last Done Comments [...] filedocumented as of this encounter Care Teams Transition Assistant Relationship Specialty Start Date End Date Debbie Arango MD [address] [facility] [place] [address] PCP - General Internal Medicine 03/04/23 documented as of this encounter
--- OUTSIDE RECORDS SUMMARY | 2024-04-12 21:59 | External Medical Summary | Summary of Care ---
Author Name Unknown Organization [facility] Address [address] [place] [address] Phone [phone] Care Team Providers Care Wood Science Professor Name Role Phone Debbie Arango MD Primary Care Provider Reason for Visit * Reason Onset Date Comments Med Request 11/17/2023 Encounter Details Date Type Department Care Team (Late st Contact Info) Description 11/17/2023 Telephone [facility] [address] [place] [address] GalvanTeena gomez MD 200 [place] [address] Med Request Allergies No known active allergiesdocumented as of this encounter (statuses as of 11/18/2023) Medications Medication Sig Dispensed Refills Start Date [...] as of this encounter (statuses as of 11/18/2023) Active Problems Problem Noted Date Diagnosed Date CKD (chronic kidney disease) stage 5, GFR less than 15 ml/min 05/21/2023 Peripheral vascular disease with claudication HTN, goal below 130/80 05/21/2023 documented as of this encounter (statuses as of 11/18/2023) Social History Tobacco Use Types Packs/Day Years [...] EST [employer] unable to send script to [place] that is why we are sending it [...] 11:00 AM EST Office Visit Cardiology, [facility] 132 [facility] [place] [address] Monster [place], 132 [facility] [place] [address] 03/31/2024 12:30 PM EDT Laboratory Laboratory, [place] [address] [facility] [phone] [place], [facility] [address] [facility] [address] 04/07/2024 12:30 PM EDT Office Visit Hematology/Oncology [facility] 200 [facility] [address] Tara Marquez MD [address] [place] [address] Health Maintenance Due Date Last Done Comments [...] filedocumented as of this encounter Care Teams Wood Science Professor Relationship Specialty Start Date End Date Debbie Arango MD [address] [facility] [place] [address] PCP - General Internal Medicine 03/04/23 documented as of this encounter
--- OUTSIDE RECORDS SUMMARY | 2024-04-12 21:59 | External Medical Summary | Summary of Care ---
Author Name Unknown Organization [facility] Address [address] [place] [address] Phone [phone] Care Team Providers Care Trim Crew Supervisor Name Role Phone Debbie Arango MD Primary Care Provider Reason for Visit * Reason Onset Date Comments Appointment 11/04/2023 Encounter Details Date Type Department Care Team (Late st Contact Info) Description 11/04/2023 Telephone Gastroenterology, [facility] [address] [place], [place] [phone] Services, Scheduling [address] [place] [address] Appointment Allergies No known active allergiesdocumented as of this encounter (statuses as of 11/05/2023) Medications Medication Sig Dispensed Refills Start Date [...] Sodium Zirconium Cyclosilicate 10 GM Oral Packet (Lokelmi)Indications :CKD (chronic kidney disease) stage 5, GFR [...] as of this encounter (statuses as of 11/05/2023) Active Problems Problem Noted Date Diagnosed Date CKD (chronic kidney disease) stage 5, GFR less than 15 ml/min 05/21/2023 Peripheral vascular disease with claudication HTN, goal below 130/80 05/21/2023 documented as of this encounter (statuses as of 11/05/2023) Social History Tobacco Use Types Packs/Day Years [...] Telephone Encounter - Amanda Berry OSA - 11/05/2023 11:34 AM EST Spoke to pt's , akhil'd 11/07/23 with WALE Olivier. * Telephone Encounter - Westley Gayle OSA - 11/04/2023 12:30 PM EST Son pts son called in to reschedule his appt for today due to the weather. When I tried to help with scheduling the next availability coming up was in January. Dominic the pts son was not happy and very upset because the urgency of this appt he said and that's its a follow up with a swallow study. I did all that I could offer on my end but he wasn't happy with this date. Could someone please assist and call back pts son Dominic at [phone] and help with finding a sooner appt. Thank you documented in this encounter Plan of Treatment Upcoming Encounters Date Type Department Care Team (Late st Contact Info) Description 11/07/2023 9:30 AM EST Office Visit Gastroenterology, [facility] [address] [place] [address] Adriana Paulson CRNP [address] [place] [address] 11/26/2023 11:00 AM EST Office Visit Cardiology, [facility] [address] [place] [address] Monster Gary DO [address] [place] [address] 03/31/2024 12:30 PM EDT Laboratory Laboratory, [place] [address] [facility] [phone] [place] [address] [address] [facility] [address] 04/07/2024 12:30 PM EDT Office Visit Hematology/Oncology [place] 200 [facility] [place] [address] Tara Marquez MD 200 [facility] [place] [address] Health Maintenance Due Date Last Done Comments [...] filedocumented as of this encounter Care Teams Trim Crew Supervisor Relationship Specialty Start Date End Date Debbie Arango MD [address] [facility] [place] [address] PCP - General Internal Medicine 03/04/23 documented as of this encounter
--- OUTSIDE RECORDS SUMMARY | 2024-04-12 21:59 | External Medical Summary | Summary of Care ---
Author Name Unknown Organization [facility] Address [address] [place] [address] Phone [phone] Care Team Providers Care Employment Officer Name Role Phone Debbie Arango MD Primary Care Provider Reason for Referral * Precert (Within 10 days (routine)) - Pending Review Specialty Diagnoses / Procedures Referred By Valarie t Referred To Contact Diagnoses Achalasia of esophagus Dysphagia Procedures ESOPHAGEAL MOTILITY STUDY Salena العلي MD [address] [place] [address] Referral ID Status Reason Start Date Expiration Date V isits Requested Visits Authorized [id number] Pending Review 11/07/2023 999 999 Reason for Visit * Reason Onset Date Comments Scheduling 11/07/2023 Encounter Details Date Type Department Care Team (Late st Contact Info) Description 11/07/2023 Telephone Gastroenterology, [facility] [address] [place] [address] Salena العلي MD [address] [place] [address] Scheduling Allergies No known active allergiesdocumented as [...] 11/26/2023 11:00 AM EST Office Visit Cardiology, [facility] [address] [place] [address] Monster [address], [address] [place] [address] 03/31/2024 12:30 PM EDT Laboratory [facility], [address] [place] [address] [place], [facility] [address] [facility] [place] [address] 04/07/2024 12:30 PM EDT Office Visit Hematology/Oncology [place] [facility] 200 [facility] [place] [address] Tara Marquez MD 200 [facility] [place] [address] Scheduled Orders Name Type Priority Associated Diagnoses [...] cardiospasm documented in this encounter Care Teams Employment Officer Relationship Specialty Start Date End Date Debbie Arango MD [address] [facility] [place] [address] PCP - General Internal Medicine 03/04/23 documented as of this encounter
--- OUTSIDE RECORDS SUMMARY | 2024-04-12 21:59 | External Medical Summary ---
Author Name Unknown Address Unknown Organization [facility] [address] [place] [address] Laboratory Report Ordering Provider Test Date Status MERON MINOR 12/03/2023 12:13:12 Final Observation Date Value Abnormality Reference (Units ) Status WBC, Total 12/03/2023 12:13:12 8.93 4.00-10.8 0 (K/uL) Final RBC 12/03/2023 12:13:12 4.28 4.50-5.25 (M/uL) Final Hemoglobin 12/03/2023 12:13:12 12.9 Below low normal 14 .0-16.8 (g/dL) Final HCT 12/03/2023 12:13:12 38.1 Below low normal 40. 0-48.4 (%) Final MCV 12/03/2023 12:13:12 89.0 82.0-99.5 (fL) Final MCH 12/03/2023 12:13:12 30.1 27.0-34.0 (pg) Final MCHC 12/03/2023 12:13:12 33.9 32.0-36.0 (g/dL) Final RDW 12/03/2023 12:13:12 14.2 11.5-15.5 (%) Final Platelets 12/03/2023 12:13:12 253 140-400 (K /uL) Final MPV 12/03/2023 12:13:12 10.8 6.6-11.1 ( fL) Final Performing Location [facility] [address] [place] [address]
--- NOTE | 2024-04-12 22:48 | Emergency Department Note ---
Impression & Plan Bright red rectal bleeding, ESRD on peritoneal dialysis, Anticoagulant long- term use ED Provider Note Provider: Toney Lewis MD DATE OF SERVICE: 04/12/2024 CHIEF COMPLAINT: Blood in depends HISTORY OF PRESENT ILLNESS: Patient is a 78-year-old gentleman history of atrial flutter on warfarin as well as PE, end-stage renal disease on nightly peritoneal dialysis, hypertension, hyperlipidemia presenting today with family reporting onset this evening and noting blood in his depends. States noted this around dinnertime and then changed it and noted additional around 8 PM. Denies any rectal or abdominal pain. No lightheadedness or dizziness or shortness of breath reported. They report that his INR was low and he had an extra dose of Coumadin last week on . Patient does nightly peritoneal dialysis. No history of GI bleed. Does have some esophageal dysmotility and follows with [facility]. No recent colonoscopy. Does have some skin breakdown and irritation to the rectal region. Patient has not had a bowel meant by his report this evening. PAST MEDICAL HISTORY: As noted above MEDICATIONS: On Coumadin, reviewed SOCIAL HISTORY: Former smoker PHYSICAL EXAM: GENERAL: alert and oriented in no acute distress on stretcher Head: normocephalic and atraumatic EYES: No injection, discharge or icterus. EOMI. NECK: Trachea midline. ENT: Mucous membranes pink and moist. LUNGS: Airway patent. No retractions. Breath sounds clear with good air entry bilaterally. HEART: Regular rate and rhythm. No chest wall tenderness with upper chest AICD in place ABDOMEN: Soft and non-tender, without guarding or rebound. PD catheter in place in the left upper abdomen. Rectal: With nurse containers sales representative, there is some stage I-II sacral ulceration with abrasion but no active bleeding or large external hemorrhoid. When she is stool Hemoccult positive is noted. SKIN: Acyanotic, warm, dry, without rashes EXTREMITIES: Without swelling, tenderness or deformity NEUROLOGICAL: No focal deficits. No aphasia. No facial droop or slurred speech. Normal strength and tone in the extremities. Sensation to gross touch normal. Ambulatory. EK bpm sinus rhythm first-degree AV block. Right bundle branch block notable QTc 517. No clear acute ST segment elevation with nonspecific T wave inversions. CONTINUOUS CARDIAC MONITORING: was ordered and showed a heart rate of 70s-80s bpm in sinus rhythm first-degree AV heart block Patient's laboratory studies and imaging reviewed. Differential includes Diverticulosis, AVM, coagulopathy, colitis, inflammatory bowel disease, malignancy, Celi-Felix tear, esophagitis, peptic ulcer disease, variceal bleed, gastritis, epistaxis, fissure, hemorrhoids, as well as other pathologies. IMPRESSION/MEDICAL DECISION MAKING: Patient well-appearing exam without complaint of pain. Does not seem symptomatic and lower suspicion for acute anemia. Is high risk given his use of warfarin. Will need to check INR level and blood counts. No obvious hemorrhoidal bleeding with occult positive stool here. Given his benign abdomen I doubt acute intra-abdominal bleeding or diverticulitis. Type and screen is sent. No vomiting or significant heartburn symptoms reported in discussion with patient given an IV dose of Protonix here although lower suspicion for upper GI bleed. Blood work returned with elevated INR 3.2. No significant anemia with a hemoglobin of 13.6. Platelet count normal at 274. Patient does live by himself and ex- states does have concerns about his safety at home with a possible GI bleed. Did have concerns also about possible observation versus admission. Did discuss with case management likely full admission but cannot promise. Patient agreeable to stay and hospitalist was contacted. Given his lack of pain or leukocytosis do not feel we need abdominal imaging at this time and will defer. DIAGNOSIS: GI bleed, long-term anticoagulation, ESRD on PD DISPOSITION: Hospitalist will evaluate Patient was agreeable with this plan. Past Med/Surg History Problem List (Updated 04/13/24 @ 01:06 by Toney Lewis M.D.) Anticoagulant long-term use (Acute) Bright red rectal bleeding (Acute) Bifascicular block Hypertrophic cardiomyopathy Atrial flutter, paroxysmal Acute dyspnea (Acute) ESRD on peritoneal dialysis (Acute) Atrial fibrillation with rapid ventricular response Bilateral pulmonary embolism (Acute) Bilateral pulmonary embolism Encounter for pre-operative examination Hyperkalemia Weakness (Acute) Hyperkalemia (Acute) Lab test negative for COVID-19 virus (Acute) Prostate cancer s/p prostatectomy Tobacco use Quit 03/2023 HTN (hypertension) HLD (hyperlipidemia) CKD (chronic kidney disease), stage V (Acute) Medical History Renal cyst 3.9 cm cystic lesion-L Paroxysmal A-fib listed in [facility] records CAD (coronary artery disease) PVD (peripheral vascular disease) Dysphagia Anemia Pulmonary nodule MGUS (monoclonal gammopathy of unknown significance) follows with [facility] heme/onc LBBB (left bundle branch block) Hearing deficit Hyperkalemia Prostate cancer s/p prostatectomy Tobacco use Quit 03/2023 HTN (hypertension) HLD (hyperlipidemia) CKD (chronic kidney disease), stage V Surgical History History of appendectomy History of tooth extraction all teeth removed History of bilateral cataract extraction History of prostatectomy Family History Father Diabetes Other No family history of adverse response to anesthesia Social History Smoking Status: Former smoker Tobacco Type: Cigars Second Hand Exposure: No; Do You Dip or Chew Tobacco: No; Hx Alcohol Use: Yes Alcohol type: hard liquor Hx Substance Use: No Preferred Language: Malagasy Communication Ability: Effective Office Auditor Required: No Beliefs That Will Affect Care: None Current Living Situation: Alone Current Living Situation Comment: Patient lives alone but ex- and son check on him daily and assist pt Feels Safe at Home: Yes Assistive Devices: None Allergies Allergies Allergy/AdvReac Type Severity Reaction Status Date / Time No Known Allergies Allergy Verified 10/13/23 00:50 Home Meds Home Medications Medication Instructions Recorded Confirmed carvedilol 12.5 mg tablet 12.5 mg PO BID 05/02/23 10/13/23 vitamin B complex-vitamin C-folic 1 tab PO QAM 05/02/23 10/13/23 acid 0.8 mg tablet (Nephro-Igor) docusate sodium 100 mg capsule 100 mg PO DAILY 10/13/23 10/13/23 (Stool Softener) Previous Rx's Medication Instructions Recorded amiodarone 200 mg tablet 200 mg PO BIDM #60 tabs 10/19/23 potassium chloride 10 mEq 10 meq PO DAILY #7 tabs 10/19/23 tablet,extended release warfarin 5 mg tablet 5 mg PO DAILY@1600 #30 tabs 10/19/23 Results & Data (ED) Vital Signs Vital Signs - 24 hr 04/12/24 21:51 04/12/24 23:14 04/12/24 23:15 Temperature 36.8 C Temperature Source Temporal Artery Scan Pulse Rate 87 80 Pulse Rate [Apical] 81 Pulse Rhythm Regular Pulse Strength Normal Respiratory Rate 20 19 19 Respiratory Effort / Characteristics Non-Labored Spontaneous Non-Labored Spontaneous Respiratory Depth Normal Normal Respiratory Pattern Regular Regular Blood Pressure 120/73 Blood Pressure [Right Arm] 125/70 Blood Pressure Mean 88 Blood Pressure Mean [Right Arm] 88 Blood Pressure Position Sitting Pulse Oximetry 96 98 98 Oxygen Delivery Method Room Air Room Air Sepsis Recent Fever Within 48 Hours No Sepsis New/Unexplained Change in Mental Status No Sepsis Action Taken by Nursing No Action Required 04/12/24 23:51 Temperature Temperature Source Pulse Rate 78 Pulse Rate [Apical] Pulse Rhythm Pulse Strength Respiratory Rate Respiratory Effort / Characteristics Respiratory Depth Respiratory Pattern Blood Pressure Blood Pressure [Right Arm] Blood Pressure Mean Blood Pressure Mean [Right Arm] Blood Pressure Position Pulse Oximetry Oxygen Delivery Method Sepsis Recent Fever Within 48 Hours Sepsis New/Unexplained Change in Mental Status Sepsis Action Taken by Nursing Laboratory Data 04/12/24 22:53 04/12/24 22:53 Lab Results 04/12/24 04/12/24 Range/Units 22:49 22:53 WBC 9.42 (4.8-10.8) K/ul RBC 4.49 L (4.70-6.10) M/uL Hgb 13.6 L (14.0-18.0) g/dl Hct 39.4 L (42.0-52.0) % MCV 87.8 (80.0-100.0) fL MCH 30.3 (25.0-34.0) pg MCHC 34.5 (32.0-36.0) g/dL RDW Std Deviation 48.5 H (36.4-46.3) fL RDW Coeff of Maureen 15.4 H (11.5-14.5) % Plt Count 274 (130-400) K/uL MPV 10.1 (9.4-12.4) fL PT 31.4 H (9.0-12.0) Seconds INR 3.2 H (0.9-1.1) APTT 45 H (21-31) Seconds PTT Ratio 1.7 Sodium 131 L (136-145) mmol/L Potassium 4.4 (3.5-5.1) mmol/L Chloride 90 L (98-107) mmol/L Carbon Dioxide 31 (21-32) mmol/L Anion Gap 10 (3-11) BUN 36 H (6-23) mg/dl Creatinine 7.36 H* (0.6-1.4) mg/dl Est Cr Clr Drug Dosing Not Reportable Est GFR ( Amer) 7.5 ml/min Est GFR (Non-Af Amer) 6.5 ml/min BUN/Creatinine Ratio 4.9 L (10-20) Glucose 114 H (70-99(Fasting)) mg/dl Calcium 9.1 (8.6-10.3) mg/dl Total Bilirubin 0.5 (0.2-1.0) mg/dl AST 31 (13-39) U/L ALT 44 (7-52) U/L Alkaline Phosphatase 74 (34-104) U/L Troponin I High Sens 38.3 H (0-20) pg/ml Total Protein 6.8 (6.0-8.3) gm/dl Albumin 3.7 (3.4-5.0) gm/dl Globulin 3.1 (2.5-4.0) gm/dl Albumin/Globulin Ratio 1.2 (0.9-2) Blood Type B Positive Antibody Screen NEGATIVE Administered Medications Discontinued Medications Pantoprazole Sodium 80 mg/ (Dextrose) 120 mls @ 480 mls/hr IV ONE STA Stop: 04/13/24 00:08 Last Infusion: 04/13/24 00:33 Dose: Infused Documented By: underwater photographer: 04/13/24 00:09 Dose: 480 mls/hr Documented By: MED Discharge Plan Visit Data Chief Complaint: Rectal Bleed Stated Complaint: BLEEEDING FROM RECTUM FOR 6 HRS, WARFARIN ED Provider: Toney Lewis Discharge Problem: Bright red rectal bleeding, ESRD on peritoneal dialysis, Anticoagulant long- term use Patient Disposition: Being Evaluated by Hospitalist Forms Stand Alone Forms: My [employer] Prescriptions Prescriptions: No Action carvedilol 12.5 mg tablet 12.5 mg PO BID Nephro-Igor 0.8 mg Tablet 1 tab PO QAM docusate sodium [Stool Softener] 100 mg Capsule 100 mg PO DAILY warfarin 5 mg Tablet 5 mg PO DAILY@1600 Qty: 30 0RF amiodarone 200 mg Tablet 200 mg PO BIDM Qty: 60 0RF potassium chloride 10 mEq tablet extended release 10 meq PO DAILY Qty: 7 0RF [facility]Primary [facility] Provider[facility] -
[2024-04-12 23:15] LABS: Hematocrit (blood only) 39.4 % (42.0-52.0); Hemoglobin 13.6 g/dl (14.0-18.0); Mean Corpuscular Hemoglobin 30.3 pg (25.0-34.0); Mean Corpuscular Hgb Conc 34.5 g/dL (32.0-36.0); Mean Corpuscular Volume 87.8 fL (80.0-100.0); Mean Platelet Volume 10.1 fL (9.4-12.4); Platelet Count 274 K/uL (130-400); RDW Coefficient of Variation 15.4 % (11.5-14.5); RDW Standard Deviation 48.5 fL (36.4-46.3); Red Blood Count 4.49 M/uL (4.70-6.10); White Blood Count 9.42 K/ul (4.8-10.8)
[2024-04-12 23:46] LABS: INR 3.2 (0.9-1.1); Partial Thromboplastin Ratio 1.7; Partial Thromboplastin Time 45 Seconds (21-31); Prothrombin Time 31.4 Seconds (9.0-12.0)
[2024-04-13] MEDS: PANTOprazole 80 MG in DEXTROSE 5% 100 ML IV STA (00:09)
[2024-04-13 00:10] LABS: Alanine Aminotransferase 44 U/L (7-52); Albumin Globulin Ratio 1.2 (0.9-2); Albumin Level 3.7 gm/dl (3.4-5.0); Alkaline Phosphatase 74 U/L (34-104); Anion Gap 10 (3-11); Aspartate Aminotransferase 31 U/L (13-39); BUN Creatinine Ratio 4.9 (10-20); Bilirubin,Total 0.5 mg/dl (0.2-1.0); Blood Urea Nitrogen 36 mg/dl (6-23); Calcium 9.1 mg/dl (8.6-10.3); Carbon Dioxide 31 mmol/L (21-32); Chloride 90 mmol/L (98-107); Est GFR (African American) 7.5 ml/min; Est GFR (Non-African American) 6.5 ml/min; Globulin 3.1 gm/dl (2.5-4.0); Glucose 114 mg/dl (70-99(Fasting)); Potassium 4.4 mmol/L (3.5-5.1); Sodium 131 mmol/L (136-145); Total Protein 6.8 gm/dl (6.0-8.3); Troponin I High Sensitivity 38.3 pg/ml (0-20)
--- NOTE | 2024-04-13 02:47 | History & Physical Report ---
Date of Service April 13, 2024 Assessment & Plan (1) Bright red rectal bleeding: Plan: 78-year-old male with past medical history significant for peripheral vascular disease, hypertension, end-stage renal disease on peritoneal dialysis, History of hypertrophic cardiomyopathy, paroxysmal atrial flutter ,history of unprovoked bilateral pulmonary embolism diagnosed in October 13 2023 and on Coumadin presents with a rectal bleed. Patient lives alone. Currently ambulates with a walker but balance not great as per his ex-. His ex- and son checks on him. And also has caregivers . Patient is very hard of hearing. His ex- helped with H&P. From 3 PM to 8 PM patient was having bright red blood per rectum. Patient denies any abdominal pain. No chest pain. As per his ex- he gets SOB on ambulation and could not walk long distance. Patient denies any headache. No dizziness. No blurred vision. No runny nose or sore throat. No cough. He has issues with swallowing and recently had Botox injection for oesophageal dysmotility and also has follow-up appointment with GI pr ex . Currently denies nausea. Does not make urine. Currently resting comfortably and hemodynamically stable. bright blood per rectum currently seems slowed down hemoglobin stable at 13.6 blood consent obtained H&H every 6 hours will hold Coumadin INR is 3.2 if continues to bleed will give IV vitamin K close monitoring telemetry n.p.o. and gentle fluids IV Protonix 40 mg twice daily GI consult in a.m. unprovoked bilateral pulmonary embolism diagnosed October 13, 2023 holding Coumadin for above as per the ex- there is a plan for VQ scan in a.m. to restart Coumadin as soon as able to end-stage renal disease on peritoneal dialysis Missed [facility] dialysis nephro consult in a.m. hypertension on Coreg paroxysmal atrial flutter 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 on amiodarone and Coreg Coumadin on hold for above reasons history of prostate cancer s/p surgery DVT prophylaxis SCDs INR 3.2 CODE STATUS. Full code for now. To call family. Disposition . Telemetry History of Present Illness Chief Complaint: Rectal bleed Primary Care Provider: [facility] 78-year-old male with past medical history significant for peripheral vascular disease, hypertension, end-stage renal disease on peritoneal dialysis, History of hypertrophic cardiomyopathy, paroxysmal atrial flutter ,history of unprovoked bilateral pulmonary embolism diagnosed in October 13 2023 and on Coumadin presents with a rectal bleed. Patient lives alone. Currently ambulates with a walker but balance not great as per his ex-. His ex- and son checks on him. And also has caregivers . Patient is very hard of hearing. His ex- helped with H&P. From 3 PM to 8 PM patient was having bright red blood per rectum. Patient denies any abdominal pain. No chest pain. As per his ex- he gets SOB on ambulation and could not walk long distance. Patient denies any headache. No dizziness. No blurred vision. No runny nose or sore throat. No cough. He has issues with swallowing and recently had Botox injection for oesophageal dysmotility and also has follow-up appointment with GI pr ex . Currently denies nausea. Does not make urine. Currently resting comfortably and hemodynamically stable. Past medical history. As mentioned above Past surgical history. S/p prostatectomy Social history. Former smoker. Quit smoking in January 2023 as per ex-. Alcohol 4 mixed drink per week as per [employer]. No drug use. Allergies Allergy/AdvReac Type Severity Reaction Status Date / Time No Known Allergies Allergy Verified 04/13/24 02:01 Home Medications Medication Instructions Recorded Confirmed Type docusate sodium 100 mg capsule 100 mg PO BID 10/13/23 04/13/24 History (Stool Softener) V-8 Low Sodium 1 can PO QAM 04/13/24 04/13/24 History amiodarone 100 mg tablet 100 mg PO QAM 04/13/24 04/13/24 History carvedilol 6.25 mg tablet 3.125 mg PO QPM 04/13/24 04/13/24 History cholecalciferol (vitamin D3) 50 50 mcg PO AMPM 04/13/24 04/13/24 History mcg (2,000 unit) tablet (Vitamin D3) polyethylene glycol 3350 17 8.5 g PO QAM 04/13/24 04/13/24 History gram/dose oral powder (Miralax) vitamin B complex-vitamin C-folic 1 tab PO QAM 04/13/24 04/13/24 History acid 0.8 mg tablet (Renal-Igor) warfarin 5 mg tablet See Rx Instructions .Route .COMPLEX 04/13/24 04/13/24 History Past Med/Surg History Problem List (Updated 04/13/24 @ 01:06 by Toney Lewis M.D.) Anticoagulant long-term use (Acute) Bright red rectal bleeding (Acute) Bifascicular block Hypertrophic cardiomyopathy Atrial flutter, paroxysmal Acute dyspnea (Acute) ESRD on peritoneal dialysis (Acute) Atrial fibrillation with rapid ventricular response Bilateral pulmonary embolism (Acute) Bilateral pulmonary embolism Encounter for pre-operative examination Hyperkalemia Weakness (Acute) Hyperkalemia (Acute) Lab test negative for COVID-19 virus (Acute) Prostate cancer s/p prostatectomy Tobacco use Quit 03/2023 HTN (hypertension) HLD (hyperlipidemia) CKD (chronic kidney disease), stage V (Acute) Medical History Renal cyst 3.9 cm cystic lesion-L Paroxysmal A-fib listed in [facility] records CAD (coronary artery disease) PVD (peripheral vascular disease) Dysphagia Anemia Pulmonary nodule MGUS (monoclonal gammopathy of unknown significance) follows with [facility] heme/onc LBBB (left bundle branch block) Hearing deficit Hyperkalemia Prostate cancer s/p prostatectomy Tobacco use Quit 03/2023 HTN (hypertension) HLD (hyperlipidemia) CKD (chronic kidney disease), stage V Surgical History History of appendectomy History of tooth extraction all teeth removed History of bilateral cataract extraction History of prostatectomy Family History Father Diabetes Other No family history of adverse response to anesthesia Social History Smoking Status: Former smoker Tobacco Type: Cigars Second Hand Exposure: No; Do You Dip or Chew Tobacco: No; Hx Alcohol Use: Yes Alcohol type: beer and wine Hx Substance Use: No Preferred Language: Greek Communication Ability: Effective Digital Media Coordinator Required: No Beliefs That Will Affect Care: None Current Living Situation: Alone Current Living Situation Comment: Patient lives alone but ex- and son check on him daily and assist pt Feels Safe at Home: Yes Assistive Devices: None Review of Systems Review of Systems: All systems reviewed & are unremarkable except as noted in HPI & below Physical Exam Physical Exam: General- Not in distress. Hard of hearing. Head- atraumatic Eyes- PERRL ENT- oropharynx clear Neck- supple, no JVD. Lungs- clear to auscultation no wheezing or crackles. Heart- regular rhythm; no murmur, no gallop. Abdomen- normal bowel sounds, soft, nontender, no distension. Extremities- no pretibial edema, no erythema seen Neuro- alert, oriented , hard of hearing, no facial palsy; no dysarthria; Results & Data Results & Data Vital Signs (Past 12 Hours) Vital Signs Temp Pulse Pulse Resp BP BP Pulse Ox 04/13/24 02:09 80 24 136/82 97 04/13/24 01:27 80 21 125/70 97 04/12/24 23:51 78 04/12/24 23:15 80 19 98 04/12/24 23:14 81 19 125/70 98 04/12/24 21:51 36.8 C 87 20 120/73 96 O2 Del Method 04/13/24 02:09 Room Air 04/13/24 01:27 Room Air 04/12/24 23:51 04/12/24 23:15 04/12/24 23:14 Room Air 04/12/24 21:51 Room Air Diagnostic Findings Laboratory Results WBC 9.42 K/ul (4.8-10.8) 04/12/24 22:53 RBC 4.49 M/uL (4.70-6.10) L 04/12/24 22:53 Hgb 13.6 g/dl (14.0-18.0) L 04/12/24 22:53 Hct 39.4 % (42.0-52.0) L 04/12/24 22:53 MCV 87.8 fL (80.0-100.0) 04/12/24 22:53 MCH 30.3 pg (25.0-34.0) 04/12/24 22:53 MCHC 34.5 g/dL (32.0-36.0) 04/12/24 22:53 RDW Std Deviation 48.5 fL (36.4-46.3) H 04/12/24 22:53 RDW Coeff of Maureen 15.4 % (11.5-14.5) H 04/12/24 22:53 Plt Count 274 K/uL (130-400) 04/12/24 22:53 MPV 10.1 fL (9.4-12.4) 04/12/24 22:53 PT 31.4 Seconds (9.0-12.0) H 04/12/24 22:53 INR 3.2 (0.9-1.1) H 04/12/24 22:53 APTT 45 Seconds (21-31) H 04/12/24 22:53 PTT Ratio 1.7 04/12/24 22:53 Sodium 131 mmol/L (136-145) L 04/12/24 22:53 Potassium 4.4 mmol/L (3.5-5.1) 04/12/24 22:53 Chloride 90 mmol/L (98-107) L 04/12/24 22:53 Carbon Dioxide 31 mmol/L (21-32) 04/12/24 22:53 Anion Gap 10 (3-11) 04/12/24 22:53 BUN 36 mg/dl (6-23) H 04/12/24 22:53 Creatinine 7.36 mg/dl (0.6-1.4) H* 04/12/24 22:53 Est Cr Clr Drug Dosing Not Reportable 04/12/24 22:53 Est GFR ( Amer) 7.5 ml/min 04/12/24 22:53 Est GFR (Non-Af Amer) 6.5 ml/min 04/12/24 22:53 BUN/Creatinine Ratio 4.9 (10-20) L 04/12/24 22:53 Glucose 114 mg/dl (70-99(Fasting)) H 04/12/24 22:53 Calcium 9.1 mg/dl (8.6-10.3) 04/12/24 22:53 Total Bilirubin 0.5 mg/dl (0.2-1.0) 04/12/24 22:53 AST 31 U/L (13-39) 04/12/24 22:53 ALT 44 U/L (7-52) 04/12/24 22:53 Alkaline Phosphatase 74 U/L (34-104) 04/12/24 22:53 Troponin I High Sens 38.3 pg/ml (0-20) H 04/12/24 22:53 Total Protein 6.8 gm/dl (6.0-8.3) 04/12/24 22:53 Albumin 3.7 gm/dl (3.4-5.0) 04/12/24 22:53 Globulin 3.1 gm/dl (2.5-4.0) 04/12/24 22:53 Albumin/Globulin Ratio 1.2 (0.9-2) 04/12/24 22:53 Blood Type B Positive 04/12/24 22:49 Antibody Screen NEGATIVE 04/12/24 22:49 Code Status & VTE Plan VTE Prophylaxis Plan VTE Prophylaxis will be ordered: Yes
[2024-04-13] MEDS: carvediloL 3.125 MG TAB PO STA (03:20)
[2024-04-13] MEDS ORDERED: NITROGLYCERIN SL 0.4 MG/TAB TAB SL PRN (04:53)
[2024-04-13] MEDS: SODIUM CHLORIDE 0.9% 1,000 ML IV SCH (05:39)
[2024-04-13 07:22] LABS: Basophils # (auto) 0.08 K/uL (0.00-0.20); Eosinophils # (auto) 0.53 K/uL (0.00-0.50); Eosinophils % (auto) 6.8 %; Hematocrit (blood only) 31.6 % (42.0-52.0); Hemoglobin 10.8 g/dl (14.0-18.0); Immature Granulocytes # (auto) 0.03 K/uL (0.01-0.20); Immature Granulocytes % (auto) 0.4 %; Lymphocytes # (auto) 1.33 K/uL (1.20-3.40); Lymphocytes % (auto) 17.1 %; Mean Corpuscular Hemoglobin 29.6 pg (25.0-34.0); Mean Corpuscular Hgb Conc 34.2 g/dL (32.0-36.0); Mean Corpuscular Volume 86.6 fL (80.0-100.0); Monocytes # (auto) 0.96 K/uL (0.11-0.59); Monocytes % (auto) 12.3 %; Neutrophils # (auto) 4.87 K/uL (1.40-6.50); Neutrophils % (auto) 62.4 %; Platelet Count 214 K/uL (130-400); RDW Coefficient of Variation 15.3 % (11.5-14.5); RDW Standard Deviation 48.3 fL (36.4-46.3); Red Blood Count 3.65 M/uL (4.70-6.10)
[2024-04-13 07:34] LABS: BUN Creatinine Ratio 5.6 (10-20); Calcium 8.3 mg/dl (8.6-10.3); Creatinine Clr Calc Pharmacy 9.7 ml/min; Est GFR (African American) 7.8 ml/min; Est GFR (Non-African American) 6.7 ml/min; Magnesium 1.6 mg/dl (1.7-2.4); Potassium 4.7 mmol/L (3.5-5.1)
[2024-04-13] MEDS: NEPHROCAPS PO SCH (08:37)
[2024-04-13] MEDS: CHOLECALCIFEROL 25 MCG (1000 UNITS) TAB PO SCH (08:37)
[2024-04-13] MEDS: DOCUSATE SODIUM 100 MG CAP PO SCH (08:38)
[2024-04-13] MEDS: AMIODARONE 200 MG TAB PO SCH (08:38)
[2024-04-13] MEDS: PANTOprazole 40 MG in SYRINGE 0 ML IV SCH (08:39)
--- NOTE | 2024-04-13 08:41 | Gastrointestinal Consultation ---
Date of Consultation April 13, 2024 Assessment & Plan (1) Bright red rectal bleedin78 year old male with history of ESRD on peritoneal dialysis, HTN, HLD, prostate CA s/p surgery, MGUS, dysphagia, tobacco use, hypertrophic cardiomyopathy, paroxysmal atrial flutter, history of unprovoked bilateral pulmonary embolism admitted through the ED w/ rectal bleeding x 1 day. He is hemodynamically stable w/ stable vital signs but there is a 2 pt drop in his HGB, his INR was supratherapeutic on arrival at 3.2. We discussed endoscopic evaluation to include a colonoscopy. He has never had an colonoscopy before and would like to discuss this procedure with his before making a formal decision Conservative measure for now Trend H&H Transfuse PRN per primary team Monitor and document GI output PO PPI BID Hold coumadin Trend INR May have clear liquids today Colonoscopy risks, benefits, alternatives discussed. He will discuss with his ex- and update the GI team with how he would like to proceed. We appreciate assistance in the management of any serological abnormality and corrections to include: hemoglobin >7, INR <2, platelets >50,000, potassium levels >3.5 but <5.3, and sodium levels within 5 points of the reference range prior to endoscopic evaluation. I spent a total of minutes on the date of service in review of patient's record, and previously obtained information in person and appropriate medical visit, discussion and education of plan, with patient and/or caregiver, placing orders for tests/referral/procedures as medically necessary and documentation of pertinent clinical information in patient's medical records for their visit today. Thank you for allowing us to participate in the care of this patient. Please call with any acute changes, questions or concerns. Please see addendum below with additional recommendation from my supervising physician. (2) Anticoagulant long-term use: Supervising Physician Co-Signing Physician Notes I examined the patient and reviewed patient's chart , laboratory data and imaging studies. I agree with with assessment and plan of care as suggested by advanced practice provider. If stable the patient can be discharged. He prefers to have colonoscopy performed at [facility]. History of Present Illness Attending Physician: Bird Pastrana MD History of Present Illness 78 year old male with history of ESRD on peritoneal dialysis, HTN, HLD, prostate CA s/p surgery, MGUS, dysphagia, tobacco use, hypertrophic cardiomyopathy, paroxysmal atrial flutter, history of unprovoked bilateral pulmonary embolism admitted through the ED w/ rectal bleeding - GI was asked to evaluate. Pt was seen and evaluated, chart reviewed. No family present at bedside at time of my consultation but notes that his ex- will be present this AM. He suggests that he was in his typical state of health. No obvious gastrointestional s ymptoms but noted BRB in his depends. Suggests that he had an additional two episodes of rectal bleeding, BRB so sought ED care. Denies black stools, nausea/vomiting, abd pain, rectal pain. He has been under the care of [facility] for treatment of suspected achalasia. Notes recent Botox has improved his symptoms. 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 Botox injected LES. Colonoscopy: none Allergies Allergy/AdvReac Type Severity Reaction Status Date / Time No Known Allergies Allergy Verified 04/13/24 02:01 Home Medications Medication Instructions Recorded Confirmed Type docusate sodium 100 mg capsule 100 mg PO BID 10/13/23 04/13/24 History (Stool Softener) V-8 Low Sodium 1 can PO QAM 04/13/24 04/13/24 History amiodarone 100 mg tablet 100 mg PO QAM 04/13/24 04/13/24 History carvedilol 6.25 mg tablet 3.125 mg PO QPM 04/13/24 04/13/24 History cholecalciferol (vitamin D3) 50 50 mcg PO AMPM 04/13/24 04/13/24 History mcg (2,000 unit) tablet (Vitamin D3) polyethylene glycol 3350 17 8.5 g PO QAM 04/13/24 04/13/24 History gram/dose oral powder (Miralax) vitamin B complex-vitamin C-folic 1 tab PO QAM 04/13/24 04/13/24 History acid 0.8 mg tablet (Renal-Igor) warfarin 5 mg tablet See Rx Instructions .Route .COMPLEX 04/13/24 04/13/24 History Patient History Medical History (Updated 04/13/24 @ 12:34 by Teena Galvan MD, PhD) ESRD on peritoneal dialysis Renal cyst 3.9 cm cystic lesion-L Paroxysmal A-fib listed in [facility] records CAD (coronary artery disease) PVD (peripheral vascular disease) Dysphagia Anemia Pulmonary nodule MGUS (monoclonal gammopathy of unknown significance) follows with [facility] heme/onc LBBB (left bundle branch block) Hearing deficit Surgical History History of appendectomy History of tooth extraction all teeth removed History of bilateral cataract extraction History of prostatectomy Family History Father Diabetes Other No family history of adverse response to anesthesia Social History Smoking Status: Former smoker Tobacco Type: Cigars Second Hand Exposure: No; Do You Dip or Chew Tobacco: No; Hx Alcohol Use: Yes Alcohol type: beer and wine Hx Substance Use: No Preferred Language: Tamazight Communication Ability: Effective Marketing Services Coordinator Required: No Beliefs That Will Affect Care: None Current Living Situation: Alone Current Living Situation Comment: Patient lives alone but ex- and son check on him daily and assist pt Feels Safe at Home: Yes Assistive Devices: None Review of Systems Review of Systems: All other findings negative except as noted in HPI. Physical Exam Constitutional: WD/WN, vitals as above Respiratory: normal respiratory effort, lungs clear to auscultation Cardiovascular: Rate/Rhythm: regular rate and regular rhythm Gastrointestinal (Abdomen): normal bowel sounds, soft, nontender, no hepatosplenomegaly Skin: no rashes, warm and dry Results & Data Vital Signs (Past 12 Hours) Vital Signs Temp Pulse Pulse Resp BP BP Pulse Ox 04/13/24 07:27 78 25 H 106/65 93 04/13/24 05:37 04/13/24 05:36 77 17 119/77 95 04/13/24 03:27 82 04/13/24 02:09 80 24 136/82 97 04/13/24 01:27 80 21 125/70 97 04/12/24 23:51 78 04/12/24 23:15 80 19 98 04/12/24 23:14 81 19 125/70 98 04/12/24 21:51 36.8 C 87 20 120/73 96 Pulse Ox O2 Del Method O2 Del Method 04/13/24 07:27 04/13/24 05:37 95 Room Air 04/13/24 05:36 Room Air 04/13/24 03:27 04/13/24 02:09 Room Air 04/13/24 01:27 Room Air 04/12/24 23:51 04/12/24 23:15 04/12/24 23:14 Room Air 04/12/24 21:51 Room Air Laboratory Results 04/13/24 04/12/24 04/12/24 Range/Units 06:57 22:53 22:49 WBC 7.80 9.42 (4.8-10.8) K/ul RBC 3.65 L 4.49 L (4.70-6.10) M/uL Hgb 10.8 L 13.6 L (14.0-18.0) g/dl Hct 31.6 L 39.4 L (42.0-52.0) % MCV 86.6 87.8 (80.0-100.0) fL MCH 29.6 30.3 (25.0-34.0) pg MCHC 34.2 34.5 (32.0-36.0) g/dL RDW Std Deviation 48.3 H 48.5 H (36.4-46.3) fL RDW Coeff of Maureen 15.3 H 15.4 H (11.5-14.5) % Plt Count 214 274 (130-400) K/uL MPV 10.0 10.1 (9.4-12.4) fL Immature Gran % (Auto) 0.4 % Neut % (Auto) 62.4 % Lymph % (Auto) 17.1 % [place] % (Auto) 12.3 % Eos % (Auto) 6.8 % Baso % (Auto) 1.0 % Neut # (Auto) 4.87 (1.40-6.50) K/uL Lymph # (Auto) 1.33 (1.20-3.40) K/uL Vermilion # (Auto) 0.96 H (0.11-0.59) K/uL Eos # (Auto) 0.53 H (0.00-0.50) K/uL Baso # (Auto) 0.08 (0.00-0.20) K/uL Immature Gran # (Auto) 0.03 (0.01-0.20) K/uL PT 31.4 H (9.0-12.0) Seconds INR 3.2 H (0.9-1.1) APTT 45 H (21-31) Seconds PTT Ratio 1.7 Sodium 130 L 131 L (136-145) mmol/L Potassium 4.7 4.4 (3.5-5.1) mmol/L Chloride 93 L 90 L (98-107) mmol/L Carbon Dioxide 28 31 (21-32) mmol/L Anion Gap 9 10 (3-11) BUN 40 H 36 H (6-23) mg/dl Creatinine 7.12 H* 7.36 H* (0.6-1.4) mg/dl Est Cr Clr Drug Dosing 9.7 Not Reportable Est GFR ( Amer) 7.8 7.5 ml/min Est GFR (Non-Af Amer) 6.7 6.5 ml/min BUN/Creatinine Ratio 5.6 L 4.9 L (10-20) Glucose 112 H 114 H (70-99(Fasting)) mg/dl Calcium 8.3 L 9.1 (8.6-10.3) mg/dl Magnesium 1.6 L (1.7-2.4) mg/dl Total Bilirubin 0.5 (0.2-1.0) mg/dl AST 31 (13-39) U/L ALT 44 (7-52) U/L Alkaline Phosphatase 74 (34-104) U/L Troponin I High Sens 38.3 H (0-20) pg/ml Total Protein 6.8 (6.0-8.3) gm/dl Albumin 3.7 (3.4-5.0) gm/dl Globulin 3.1 (2.5-4.0) gm/dl Albumin/Globulin Ratio 1.2 (0.9-2) Blood Type B Positive Antibody Screen NEGATIVE PG Care Time/CCT Total # of Minutes Spent Total Time Spent with Patient: Total time spent is greater than 50% in coordination of care (as documented) at patient's floor/unit and/or counseling patient: Coding Level of Care Code 11916 IN/OBS CONSULT LVL 4,60M Diagnoses Bright red rectal bleeding K62.5 Anticoagulant long-term use Z79.01
--- NOTE | 2024-04-13 11:00 | Electrocardiogram Report ---
Test Reason : Blood Pressure : / mmHG Vent. Rate : 084 BPM Atrial Rate : 084 BPM P-R Int : 234 ms QRS Dur : 156 ms QT Int : 438 ms P-R-T Axes : 030 269 016 degrees QTc Int : 517 ms Sinus rhythm with 1st degree A-V block Right bundle branch block Old Septal infarct Possible Old Anterolateral infarct Possible Old Inferior infarct Abnormal ECG When compared with ECG of 17-OCT-2023 05:12, No significant change Confirmed by Humberto Perez ([id number]) on 04/13/2024 11:00:05 AM Referred By: REFERRED SELF Confirmed By:Humberto Perez
[2024-04-13 11:20] LABS: Hematocrit (blood only) 31.1 % (42.0-52.0); Hemoglobin 10.6 g/dl (14.0-18.0)
--- NOTE | 2024-04-13 12:38 | Nephrology Consultation ---
Date of Consultation April 13, 2024 Assessment & Plan (1) ESRD on peritoneal dialysis: missed PD overnight; will drain his day dwell soon and leave abdomen dry for today plan PD this evening >>>NOTE for any invasive/intrabdominal procedure such as colonoscopy/EGD, will need dry abdomen (he typically has ico in his abdomen on daylight; though this is not stocked at [facility]/won't be case during admission) >else will do rx of 5 x 2.5 L exchanges 2.5% dextrose over 14 hours, no LBF >no specific diet while on clears but do recommend he start clears -daily BMP -pls continue renal vitamin -does not take binders as OP -will pause NS; cont coreg, amiodarone >>will hold on bowel regimen but can't do this indefinitely d/t risk of bacterial translocation and peritonitis >>low threshold for chest/abd imaging given exertional dyspnea, constipation Care coordinated w/ Dr Pastrana regarding diet, dialysis plans, bowel regimen, possible imaging and we are in agreement. (2) Bright red rectal bleeding: -trend hgb -for possible bidirectional endoscopy -NOTE will need dry abdomen if does procedure History of Present Illness Reason for Consultation: ESRD on PD Requesting Physician: Dr Washington Attending Physician: Bird Pastrana MD History of Present Illness 78-year-old male whom I am asked to evaluate for ESRD on peritoneal dialysis was admitted overnight after presenting with a day of bright red rectal bleeding in the setting of supratherapeutic INR of 3.2. Past medical history also includes chronic dysphagia to solids/presumed achalasia improved with recent Botox injections, hypertrophic cardiomyopathy, paroxysmal atrial flutter, CAD, unprovoked bilateral pulmonary emboli, prostate cancer status post laparoscopic prostate procedure, active tobacco abuse, hyperlipidemia, hypertension, at least mild cognitive impairment, MGUS. GI is following and recommends a colonoscopy which he has never had. He will discuss with his family and make a decision. In the meantime for clear liquids (though currently still NPO) and H&H to trend. Hemoglobin was 13.6 on presentation just before midnight, down to 10.6 late this morning. no abdominal or rectal pain, nausea vomiting diarrhea. He does have chronic constipation. He noted bright red blood in his pants which occurred for total of 3 times yesterday so came to the ER. Currently undergoing workup for exertional dyspnea and was scheduled for VQ scan to be done sometime this week. Tells me his breathing has been pretty good recently. Allergies Allergy/AdvReac Type Severity Reaction Status Date / Time No Known Allergies Allergy Verified 04/13/24 02:01 Home Medications Medication Instructions Recorded Confirmed Type docusate sodium 100 mg capsule 100 mg PO BID 10/13/23 04/13/24 History (Stool Softener) V-8 Low Sodium 1 can PO QAM 04/13/24 04/13/24 History amiodarone 100 mg tablet 100 mg PO QAM 04/13/24 04/13/24 History carvedilol 6.25 mg tablet 3.125 mg PO QPM 04/13/24 04/13/24 History cholecalciferol (vitamin D3) 50 50 mcg PO AMPM 04/13/24 04/13/24 History mcg (2,000 unit) tablet (Vitamin D3) polyethylene glycol 3350 17 8.5 g PO QAM 04/13/24 04/13/24 History gram/dose oral powder (Miralax) vitamin B complex-vitamin C-folic 1 tab PO QAM 04/13/24 04/13/24 History acid 0.8 mg tablet (Renal-Igor) warfarin 5 mg tablet See Rx Instructions .Route .COMPLEX 04/13/24 04/13/24 History Patient History Medical History (Updated 04/13/24 @ 12:34 by Teena Galvan MD, PhD) ESRD on peritoneal dialysis Renal cyst 3.9 cm cystic lesion-L Paroxysmal A-fib listed in [facility] records CAD (coronary artery disease) PVD (peripheral vascular disease) Dysphagia Anemia Pulmonary nodule MGUS (monoclonal gammopathy of unknown significance) follows with [facility] heme/onc LBBB (left bundle branch block) Hearing deficit Surgical History History of appendectomy History of tooth extraction all teeth removed History of bilateral cataract extraction History of prostatectomy Family History Father Diabetes Other No family history of adverse response to anesthesia Social History Smoking Status: Former smoker Tobacco Type: Cigars Second Hand Exposure: No; Do You Dip or Chew Tobacco: No; Hx Alcohol Use: Yes Alcohol type: beer and wine Hx Substance Use: No Preferred Language: Yoruba Communication Ability: Effective 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 Required: No Beliefs That Will Affect Care: None Current Living Situation: Alone Current Living Situation Comment: Patient lives alone but ex- and son check on him daily and assist pt Feels Safe at Home: Yes Assistive Devices: None Review of Systems 2 Review of Systems: All systems reviewed & are unremarkable except as noted in HPI & below Physical Exam 2 Constitutional: well developed, well nourished, + frail appearing and cooperative; no acute distress Eyes: EOM intact bilaterally ENMT: Ears: + hearing impairment; no external ear abnormality Nose: no external nose abnormality Mouth: + dry oral mucous membranes Neck: no nuchal rigidity Respiratory: normal respiratory effort and + labored breathing (with exam maneuvers); no cough, not tachypneic and no paradoxical thoraco-abdominal movemnt Auscultation: + diminished lung sounds Cardiovascular: Rate/Rhythm: regular rate and regular rhythm Extremities: + edema (BLE proximally) Gastrointestinal (Abdomen): Inspection/Auscultation: abdomen normal to inspection (PD catheter present) and normal bowel sounds P ercussion/Palpation: abdomen soft and + fluid wave; abdomen nontender Musculoskeletal: Extremities: strength 5/5 throughout Skin: no rashes, warm and dry Neurologic: ivory, fluent speech, no tremor Psychiatric: Orientation: alert and oriented x 3 Speech: normal rate/rhythm/volume of speech Results & Data Vital Signs (Past 12 Hours) Vital Signs Pulse Pulse Resp BP BP Pulse Ox Pulse Ox 04/13/24 12:00 106/64 04/13/24 12:00 72 19 93 04/13/24 10:18 70 22 93 04/13/24 10:00 108/69 04/13/24 09:50 75 04/13/24 08:37 118/65 04/13/24 08:37 118/65 04/13/24 08:37 118/65 04/13/24 08:37 118/65 04/13/24 08:37 118/65 04/13/24 08:37 118/65 04/13/24 08:37 118/65 04/13/24 08:37 118/65 04/13/24 08:37 118/65 04/13/24 08:37 118/65 04/13/24 08:37 118/65 04/13/24 08:37 118/65 04/13/24 08:37 118/65 04/13/24 08:37 118/65 04/13/24 08:37 118/65 04/13/24 08:37 118/65 04/13/24 08:37 118/65 04/13/24 08:37 118/65 04/13/24 08:37 118/65 04/13/24 08:37 118/65 04/13/24 08:30 78 21 94 04/13/24 08:00 75 19 118/65 91 04/13/24 07:27 78 25 H 106/65 93 04/13/24 05:37 95 04/13/24 05:36 77 17 119/77 95 04/13/24 03:27 82 04/13/24 02:09 80 24 136/82 97 04/13/24 01:27 80 21 125/70 97 O2 Del Method O2 Del Method 04/13/24 12:00 04/13/24 12:00 04/13/24 10:18 04/13/24 10:00 04/13/24 09:50 04/13/24 08:37 04/13/24 08:37 04/13/24 08:37 04/13/24 08:37 04/13/24 08:37 04/13/24 08:37 04/13/24 08:37 04/13/24 08:37 04/13/24 08:37 04/13/24 08:37 04/13/24 08:37 04/13/24 08:37 04/13/24 08:37 04/13/24 08:37 04/13/24 08:37 04/13/24 08:37 04/13/24 08:37 04/13/24 08:37 04/13/24 08:37 04/13/24 08:37 04/13/24 08:30 04/13/24 08:00 04/13/24 07:27 04/13/24 05:37 Room Air 04/13/24 05:36 Room Air 04/13/24 03:27 04/13/24 02:09 Room Air 04/13/24 01:27 Room Air Laboratory Results 06/25/24 11:00 04/13/24 06:57 Diagnostic Findings none
[2024-04-13 17:28] LABS: Hematocrit (blood only) 33.3 % (42.0-52.0); Hemoglobin 11.4 g/dl (14.0-18.0)
[2024-04-13] MEDS: carvediloL 3.125 MG TAB PO SCH (20:16)
[2024-04-13 23:02] LABS: Hematocrit (blood only) 32.4 % (42.0-52.0); Hemoglobin 11.1 g/dl (14.0-18.0)
[2024-04-14 07:28] LABS: Hematocrit (blood only) 31.6 % (42.0-52.0); Hemoglobin 10.9 g/dl (14.0-18.0); Mean Corpuscular Hemoglobin 29.8 pg (25.0-34.0); Mean Corpuscular Hgb Conc 34.5 g/dL (32.0-36.0); Mean Corpuscular Volume 86.3 fL (80.0-100.0); Mean Platelet Volume 9.8 fL (9.4-12.4); Platelet Count 216 K/uL (130-400); RDW Coefficient of Variation 15.2 % (11.5-14.5); RDW Standard Deviation 48.3 fL (36.4-46.3); Red Blood Count 3.66 M/uL (4.70-6.10); White Blood Count 6.83 K/ul (4.8-10.8)
[2024-04-14 07:51] LABS: INR 2.1 (0.9-1.1); Prothrombin Time 21.7 Seconds (9.0-12.0)
[2024-04-14 07:56] LABS: BUN Creatinine Ratio 5.3 (10-20); Creatinine Clr Calc Pharmacy 9.9 ml/min; Est GFR (African American) 7.9 ml/min; Est GFR (Non-African American) 6.8 ml/min; Magnesium 1.5 mg/dl (1.7-2.4); Phosphorus 3.9 mg/dl (2.5-4.9); Potassium 3.8 mmol/L (3.5-5.1)
--- NOTE | 2024-04-14 13:16 | Gastroenterology Progress Note ---
Date of Service April 14, 2024 Assessment & Plan (1) Bright red rectal bleeding: Plan: 78 year old male with history of ESRD on peritoneal dialysis, HTN, HLD, prostate CA s/p surgery, MGUS, dysphagia, tobacco use, hypertrophic cardiomyopathy, paroxysmal atrial flutter, history of unprovoked bilateral pulmonary embolism admitted through the ED w/ rectal bleeding x 1 day. He is hemodynamically stable w/ stable vital signs but there is a 2 pt drop in his HGB, his INR was supratherapeutic on arrival at 3.2. We discussed endoscopic evaluation to include a colonoscopy. He has never had an colonoscopy before and would like to discuss this procedure with his before making a formal decision GI was asked to re-evaluate as he is now agreeable to a colonoscopy. Called and discussed with ex-. Liquids today Start golytely NPO afternight Colonoscopy Trend H&H Transfuse PRN per primary team Monitor and document GI output PO PPI BID Hold coumadin Trend INR Colonoscopy risks, benefits, alternatives discussed We appreciate assistance in the management of any serological abnormality and corrections to include: hemoglobin >7, INR <2, platelets >50,000, potassium levels >3.5 but <5.3, and sodium levels within 5 points of the reference range prior to endoscopic evaluation. I spent a total of 35 minutes on the date of service in review of patient's record, and previously obtained information in person and appropriate medical visit, discussion and education of plan, with patient and/or caregiver, placing orders for tests/referral/procedures as medically necessary and documentation of pertinent clinical information in patient's medical records for their visit today. Thank you for allowing us to participate in the care of this patient. Please call with any acute changes, questions or concerns. Please see addendum below with additional recommendation from my supervising physician. (2) Anticoagulant long-term use: Admission and Anticipated Discharge Date Admission Date: April 13, 2024 Supervising Physician Co-Signing Physician Notes I examined the patient and reviewed patient's chart , laboratory data and imaging studies. I agree with with assessment and plan of care as suggested by advanced practice provider. Scheduled for colonoscopy tomorrow to evaluate rectal bleeding. Subjective GI was asked to re-evaluate as now pt family and requesting colonoscopy coumadin held Had an addition blood stool Most recent BM this AM gab Review of Systems Review of Systems: All other findings negative except as noted in HPI. Physical Exam Constitutional: WD/WN, vitals as above Respiratory: normal respiratory effort Cardiovascular: Rate/Rhythm: regular rate Gastrointestinal (Abdomen): Percussion/Palpation: abdomen soft; abdomen nontender Skin: no rashes, warm and dry Results & Data Results & Data Vital Signs (Past 12 Hours) Vital Signs Temp Pulse Pulse Resp BP Pulse Ox O2 Del Method 04/14/24 11:11 36.4 C L 74 18 123/71 94 Room Air 04/14/24 08:40 36.5 C 80 18 04/14/24 08:00 78 04/14/24 07:54 36.6 C 78 18 118/72 95 Room Air Laboratory Results 04/14/24 04/13/24 04/13/24 Range/Units 07:02 22:44 16:36 WBC 6.83 (4.8-10.8) K/ul RBC 3.66 L (4.70-6.10) M/uL Hgb 10.9 L 11.1 L 11.4 L (14.0-18.0) g/dl Hct 31.6 L 32.4 L 33.3 L (42.0-52.0) % MCV 86.3 (80.0-100.0) fL MCH 29.8 (25.0-34.0) pg MCHC 34.5 (32.0-36.0) g/dL RDW Std Deviation 48.3 H (36.4-46.3) fL RDW Coeff of Maureen 15.2 H (11.5-14.5) % Plt Count 216 (130-400) K/uL MPV 9.8 (9.4-12.4) fL PT 21.7 H (9.0-12.0) Seconds INR 2.1 H (0.9-1.1) Sodium 133 L (136-145) mmol/L Potassium 3.8 (3.5-5.1) mmol/L Chloride 94 L (98-107) mmol/L Carbon Dioxide 30 (21-32) mmol/L Anion Gap 9 (3-11) BUN 37 H (6-23) mg/dl Creatinine 7.04 H* (0.6-1.4) mg/dl Est Cr Clr Drug Dosing 9.9 ml/min Est GFR ( Amer) 7.9 ml/min Est GFR (Non-Af Amer) 6.8 ml/min BUN/Creatinine Ratio 5.3 L (10-20) Glucose 162 H (70-99(Fasting)) mg/dl Calcium 8.0 L (8.6-10.3) mg/dl Phosphorus 3.9 (2.5-4.9) mg/dl Magnesium 1.5 L (1.7-2.4) mg/dl PG Care Time/CCT Total # of Minutes Spent Total Time Spent with Patient: Total time spent is greater than 50% in coordination of care (as documented) at patient's floor/unit and/or counseling patient: Coding Level of Care Code 95408 SUB INP/OBS CARE 235MIN Diagnoses Bright red rectal bleeding K62.5 Anticoagulant long-term use Z79.01
--- NOTE | 2024-04-14 14:10 | Nephrology Progress Note ---
Date of Service April 14, 2024 Assessment & Plan (1) ESRD on peritoneal dialysis: Plan: Minimal UF overnight of only 125 mL. Exchanges went well with only 1 alarm and no issues with drains per report. Patient had 1 large bowel movement loose and brown overnight. Some streaks of blood with wiping rectal area after bowel movements: Suspect hemorrhoids. Colonoscopy planned for tomorrow 1299. Image of left gluteal pressure sore reviewed; right glut also appears red >>>NOTE for any invasive/intrabdominal procedure such as colonoscopy/EGD, will need dry abdomen (he typically has ico in his abdomen on daylight; though this is not stocked at [facility]/won't be case during admission) > Continue rx of 5 x 2.5 L exchanges over 14 hours, no LBF: However since there was minimal UF yesterday will have 2 of those exchanges be 4.25% dextrose and the remaining 3B 2.5% dextrose >no specific diet or fluid limit while on clears and bowel prep -daily BMP -pls continue renal vitamin -does not take binders as OP -Continue coreg, amiodarone >>low threshold for chest/abd imaging given exertional dyspnea, constipation Antimicrobial prophylaxis for colonoscopy: 160 mg intraperitoneal gentamicin to be given on final 2.5% exchange (5 of 5); patient also to receive metronidazole IV 500 mg 4 times daily x 3 days; also to receive nystatin 500,000 units 4 times daily x 3 days: All of above discussed with pharmacy, dialysis nurse, floor nurse, hospitalist and orders have been placed Magnesium and potassium borderline low and expect both to drop with bowel prep: Will replete cautiously in this dialysis patient since he will be n.p.o.: Ordered 20 mill equivalents potassium chloride elixir x 1 dose and 1 g mag sulfate x 2 doses (2) Bright red rectal bleeding: Plan: -trend hgb has been stable -for colonoscopy [id number] -NOTE will need dry abdomen if does procedure as well as prophylactic antibiotics including antifungals (see above) Admission and Anticipated Discharge Date Admission Date: April 13, 2024 Subjective no interval events. large BM overnight and loose; only blood is w/ wiping rechtal area. no soib; no abd pain. poor UF on only 125 ML; no known issues w/ drain and one alarm only; connected PD nurse OP w/ on site dialysis nurse here to discuss; for colonoscopy tomorrow 1300 Review of Systems 2 Review of Systems: All systems reviewed & are unremarkable except as noted in Subjective Physical Exam 2 Constitutional: well developed, well nourished, + frail appearing and cooperative; no acute distress Eyes: EOM intact bilaterally ENMT: Ears: + hearing impairment; no external ear abnormality Nose: no external nose abnormality Mouth: + dry oral mucous membranes Neck: no nuchal rigidity Respiratory: normal respiratory effort and + labored breathing (with exam maneuvers); no cough, not tachypneic and no paradoxical thoraco-abdominal movemnt Auscultation: + diminished lung sounds Cardiovascular: Rate/Rhythm: regular rate and regular rhythm Extremities: + edema (BLE proximally) Gastrointestinal (Abdomen): Inspection/Auscultation: abdomen normal to inspection (PD catheter present) and normal bowel sounds P ercussion/Palpation: abdomen soft and + fluid wave; abdomen nontender Musculoskeletal: Extremities: strength 5/5 throughout Skin: no rashes, warm and dry Psychiatric: Orientation: alert and oriented x 3 Speech: normal rate/rhythm/volume of speech Results & Data Vital Signs (Past 12 Hours) Vital Signs Temp Pulse Pulse Resp BP Pulse Ox O2 Del Method 04/14/24 11:11 36.4 C L 74 18 123/71 94 Room Air 04/14/24 08:40 36.5 C 80 18 04/14/24 08:00 78 04/14/24 07:54 36.6 C 78 18 118/72 95 Room Air Laboratory Results 04/14/24 07:02 04/14/24 07:02
[2024-04-14] MEDS: LAVAGE SOLUTION 4000ML PO SCH (15:07)
[2024-04-14] MEDS: metroNIDAZOLE 500 MG/100 ML BAG IV SCH (15:07)
[2024-04-14] MEDS: POTASSIUM CHLORIDE 20 MEQ/15 ML UDC PO ONE (15:53)
[2024-04-14] MEDS: NYSTATIN SUSP 500,000 U/5 ML UDC PO SCH (15:58)
[2024-04-14] MEDS: MAGNESIUM SULFATE / D5W 1 GM/100 ML BAG IV SCH (16:01)
--- NOTE | 2024-04-14 17:02 | Hospitalist Progress Note ---
Date of Service April 14, 2024 Assessment & Plan (1) Bright red rectal bleeding: Plan: Per previous hospitalist notes with addendum: 78-year-old male with past medical history significant for peripheral vascular disease, hypertension, end-stage renal disease on peritoneal dialysis, History of hypertrophic cardiomyopathy, paroxysmal atrial flutter ,history of unprovoked bilateral pulmonary embolism diagnosed in October 13 2023 and on Coumadin presents with a rectal bleed. Patient lives alone. Currently ambulates with a walker but balance not great as per his ex-. His ex- and son checks on him. And also has caregivers . Patient is very hard of hearing. His ex- helped with H&P. From 3 PM to 8 PM patient was having bright red blood per rectum. Patient denies any abdominal pain. No chest pain. As per his ex- he gets SOB on ambulation and could not walk long distance. Patient denies any headache. No dizziness. No blurred vision. No runny nose or sore throat. No cough. He has issues with swallowing and recently had B otox injection for oesophageal dysmotility and also has follow-up appointment with GI pr ex . Currently denies nausea. Does not make urine. Currently resting comfortably and hemodynamically stable. Acute blood loss anemia Secondary to hematochezia Likely lower GI bleed bright blood per rectum currently seems slowed down hemoglobin stable at 13.6 blood consent obtained H&H every 6 hours will hold Coumadin INR is 3.2 if continues to bleed will give IV vitamin K close monitoring telemetry n.p.o. and gentle fluids IV Protonix 40 mg twice daily GI consult in a.m. 04/14 Hemoglobin remained stable 10.9 INR 2.1 Plan for colonoscopy tomorrow Monitor H&H unprovoked bilateral pulmonary embolism diagnosed October 13, 2023 holding Coumadin for above as per the ex- there is a plan for VQ scan in a.m. to restart Coumadin as soon as able to 04/14 INR 2.1 For colonoscopy tomorrow Hopefully can resume Coumadin once okay with GI end-stage renal disease on peritoneal dialysis Nephrology on board hypertension on Coreg paroxysmal atrial flutter 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 on amiodarone and Coreg Coumadin on hold for above reasons history of prostate cancer s/p surgery DVT prophylaxis SCDs INR 2.1 CODE STATUS. Full code for now. To call family. Disposition Lives at home with family Admission and Anticipated Discharge Date Admission Date: April 13, 2024 Subjective Follow-up for rectal bleeding, etc. Seen resting in bed, comfortable, watching TV, in good spirits States he feels fine overall Denies nausea or vomiting, no recurrence of melena or hematochezia No shortness of breath, palpitations, dizziness, chest pain No other new symptoms Review of Systems Review of Systems: all noted and negative except for above Physical Exam Physical Exam: General- oriented x 3, not in distress, speaks in sentences with no effort or accessory muscle use Eyes- anicteric Neck- no JVD Lungs- clear breath sounds bilaterally, no rales/wheezes Heart- normal rate, regular rhythm; no murmurs Abdomen- normal bowel sounds, nondistended, soft, nontender Extremities- no pretibial edema, no calf tenderness Neuro- alert, oriented x 3; no gross focal neurologic deficits Skin- warm & dry Results & Data Results & Data Vital Signs (Past 12 Hours) Vital Signs Temp Pulse Pulse Resp BP Pulse Ox O2 Del Method 04/14/24 15:34 36.5 C 79 19 127/73 95 Room Air 04/14/24 11:11 36.4 C L 74 18 123/71 94 Room Air 04/14/24 08:40 36.5 C 80 18 04/14/24 08:00 78 04/14/24 07:54 36.6 C 78 18 118/72 95 Room Air all noted and reviewed including below
[2024-04-15 06:12] LABS: Basophils # (auto) 0.07 K/uL (0.00-0.20); Basophils % (auto) 0.9 %; Eosinophils # (auto) 0.61 K/uL (0.00-0.50); Eosinophils % (auto) 8.3 %; Hematocrit (blood only) 32.4 % (42.0-52.0); Hemoglobin 11.2 g/dl (14.0-18.0); Immature Granulocytes # (auto) 0.03 K/uL (0.01-0.20); Immature Granulocytes % (auto) 0.4 %; Lymphocytes # (auto) 0.82 K/uL (1.20-3.40); Lymphocytes % (auto) 11.1 %; Mean Corpuscular Hemoglobin 29.9 pg (25.0-34.0); Mean Corpuscular Hgb Conc 34.6 g/dL (32.0-36.0); Mean Corpuscular Volume 86.6 fL (80.0-100.0); Mean Platelet Volume 10.2 fL (9.4-12.4); Monocytes # (auto) 0.92 K/uL (0.11-0.59); Monocytes % (auto) 12.4 %; Neutrophils # (auto) 4.94 K/uL (1.40-6.50); Neutrophils % (auto) 66.9 %; Platelet Count 233 K/uL (130-400); RDW Coefficient of Variation 15.3 % (11.5-14.5); RDW Standard Deviation 47.8 fL (36.4-46.3); Red Blood Count 3.74 M/uL (4.70-6.10); White Blood Count 7.39 K/ul (4.8-10.8)
[2024-04-15 06:32] LABS: BUN Creatinine Ratio 4.8 (10-20); Calcium 8.2 mg/dl (8.6-10.3); Creatinine Clr Calc Pharmacy 10.9 ml/min; Est GFR (African American) 8.8 ml/min; Est GFR (Non-African American) 7.6 ml/min; Potassium 3.4 mmol/L (3.5-5.1)
[2024-04-15 06:40] LABS: Prothrombin Time 20.5 Seconds (9.0-12.0)
--- NOTE | 2024-04-15 08:02 | Oncology Consultation ---
Date of Consultation April 15, 2024 Assessment & Plan (1) Bright red rectal bleeding: undergoing GI procedure, colonoscopy. Rest of the management per internal medicine colleagues as well as Hospital internal medicine colleagues (2) Anticoagulant long-term use: at this point can initiate Coumadin once the patient undergoes colonoscopy and continues to have no episodes of bleeding for the next 48 to 72 hours. No need for bridging as pulm embolism was more than 6 months ago. Can start with Coumadin once done with colonoscopy. Plan Hematology will continue to follow the patient, make appropriate recommendations. History of Present Illness Reason for Consultation: GI bleeding recommendations for anticoagulation Attending Physician: Mauro Aguirre MD History of Present Illness the patient is a very pleasant 78-year-old male with a past history of peripheral vascular disease, hypertension, end-stage renal disease on peritoneal dialysis, hypertrophic cardiomyopathy, paroxysmal atrial flutter, unprovoked pulmonary embolism diagnosed in September 2023, currently on Coumadin, who presented with rectal bleeding. Hematology has been consulted to assist in management of this patient with need for anticoagulation as well as recent rectal bleeding. He has been evaluated by our GI colleagues will be undergoing an endoscopy. Currently reports no fever chills or night sweats. Reports no nausea vomiting. Appetite is good, is not losing weight. Reports no growing lumps anywhere. Allergies Allergy/AdvReac Type Severity Reaction Status Date / Time No Known Allergies Allergy Verified 04/13/24 02:01 Home Medications Medication Instructions Recorded Confirmed Type docusate sodium 100 mg capsule 100 mg PO BID 10/13/23 04/13/24 History (Stool Softener) V-8 Low Sodium 1 can PO QAM 04/13/24 04/13/24 History amiodarone 100 mg tablet 100 mg PO QAM 04/13/24 04/13/24 History carvedilol 6.25 mg tablet 3.125 mg PO QPM 04/13/24 04/13/24 History cholecalciferol (vitamin D3) 50 50 mcg PO AMPM 04/13/24 04/13/24 History mcg (2,000 unit) tablet (Vitamin D3) polyethylene glycol 3350 17 8.5 g PO QAM 04/13/24 04/13/24 History gram/dose oral powder (Miralax) vitamin B complex-vitamin C-folic 1 tab PO QAM 04/13/24 04/13/24 History acid 0.8 mg tablet (Renal-Igor) warfarin 5 mg tablet See Rx Instructions .Route .COMPLEX 04/13/24 04/13/24 History Patient History Medical History (Updated 04/13/24 @ 12:34 by Teena Galvan MD, PhD) ESRD on peritoneal dialysis Renal cyst 3.9 cm cystic lesion-L Paroxysmal A-fib listed in [facility] records CAD (coronary artery disease) PVD (peripheral vascular disease) Dysphagia Anemia Pulmonary nodule MGUS (monoclonal gammopathy of unknown significance) follows with [facility] heme/onc LBBB (left bundle branch block) Hearing deficit Surgical History History of appendectomy History of tooth extraction all teeth removed History of bilateral cataract extraction History of prostatectomy Family History Father Diabetes Other No family history of adverse response to anesthesia Social History Smoking Status: Former smoker Tobacco Type: Cigars Second Hand Exposure: No; Do You Dip or Chew Tobacco: No; Hx Alcohol Use: Yes Alcohol type: beer and wine Hx Substance Use: No Preferred Language: Setswana Communication Ability: Effective Concrete [employer] Required: No Beliefs That Will Affect Care: None Current Living Situation: Alone Current Living Situation Comment: Patient lives alone but ex- and son check on him daily and assist pt Feels Safe at Home: Yes Assistive Devices: Walker Review of Systems Review of Systems: All systems reviewed & are unremarkable except as noted in HPI & below Complete review of system was done pertinent positive mentioned HPI Constitutional: as per Subjective / HPI rectal bleeding Eyes: as per Subjective / HPI Ear, Nose, Mouth, Throat: as per Subjective / HPI Respiratory: as per Subjective / HPI Cardiovascular: as per Subjective / HPI Gastrointestinal: as per Subjective / HPI Genitourinary: + as per Subjective / HPI Musculoskeletal: as per Subjective / HPI Integumentary: as per Subjective / HPI Physical Exam Constitutional: WD/WN, vitals as above Eyes: PERRL, conjunctivae normal, anicteric sclerae ENMT: external ear and nose normal, oropharynx normal Neck: trachea midline, no thyromegaly Respiratory: normal respiratory effort, lungs clear to auscultation Cardiovascular: RRR, no murmur, no edema Gastrointestinal (Abdomen): normal bowel sounds, soft, nontender, no hepatosplenomegaly Musculoskeletal: no cyanosis or clubbing, extremities motor strength 5/5 Skin: no rashes, warm and dry Neurologic: patellar DTR's 2+ bilat, sensation intact Psychiatric: A+Ox3, euthymic affect Genitourinary: no testicular masses, no penis abnormality Results & Data Vital Signs (Past 12 Hours) Vital Signs Temp Pulse Resp BP Pulse Ox O2 Del Method 04/15/24 07:04 36.7 C 78 18 111/71 96 Room Air 04/15/24 02:03 36.7 C 77 18 130/78 93 Room Air 04/14/24 22:14 36.6 C 72 18 111/69 96 Room Air
--- NOTE | 2024-04-15 09:28 | Gastroenterology Progress Note ---
Date of Service April 15, 2024 Assessment & Plan (1) Bright red rectal bleeding: Plan: 78 year old male with history of ESRD on peritoneal dialysis, HTN, HLD, prostate CA s/p surgery, MGUS, dysphagia, tobacco use, hypertrophic cardiomyopathy, paroxysmal atrial flutter, history of unprovoked bilateral pulmonary embolism admitted through the ED w/ rectal bleeding x 1 day. NPO for colonoscopy today Trend H&H Transfuse PRN per primary team Monitor and document GI output PO PPI BID Hold coumadin Trend INR We appreciate assistance in the management of any serological abnormality and corrections to include: hemoglobin >7, INR <2, platelets >50,000, potassium levels >3.5 but <5.3, and sodium levels within 5 points of the reference range prior to endoscopic evaluation. Thank you for allowing us to participate in the care of this patient. Please call with any acute changes, questions or concerns. Please see addendum below with additional recommendation from my supervising physician. (2) Anticoagulant long-term use: Admission and Anticipated Discharge Date Admission Date: April 13, 2024 Supervising Physician Co-Signing Physician Notes I examined the patient and reviewed patient's chart , laboratory data and imaging studies. I agree with with assessment and plan of care as suggested by advanced practice provider. For colonoscopy today. Subjective Pt was seen and evaluated, chart reviewed. Tolerated prep. Notes clear liquid stools. Review of Systems Review of Systems: All other findings negative except as noted in HPI. Physical Exam Constitutional: WD/WN, vitals as above Respiratory: normal respiratory effort Cardiovascular: Rate/Rhythm: regular rate Gastrointestinal (Abdomen): normal bowel sounds, soft, nontender, no hepatosplenomegaly Skin: no rashes, warm and dry Results & Data Results & Data Vital Signs (Past 12 Hours) Vital Signs Temp Pulse Resp BP Pulse Ox O2 Del Method 04/15/24 08:15 36.6 C 80 18 04/15/24 07:04 36.7 C 78 18 111/71 96 Room Air 04/15/24 02:03 36.7 C 77 18 130/78 93 Room Air 04/14/24 22:14 36.6 C 72 18 111/69 96 Room Air Laboratory Results 04/15/24 Range/Units 05:26 WBC 7.39 (4.8-10.8) K/ul RBC 3.74 L (4.70-6.10) M/uL Hgb 11.2 L (14.0-18.0) g/dl Hct 32.4 L (42.0-52.0) % MCV 86.6 (80.0-100.0) fL MCH 29.9 (25.0-34.0) pg MCHC 34.6 (32.0-36.0) g/dL RDW Std Deviation 47.8 H (36.4-46.3) fL RDW Coeff of Maureen 15.3 H (11.5-14.5) % Plt Count 233 (130-400) K/uL MPV 10.2 (9.4-12.4) fL Immature Gran % (Auto) 0.4 % Neut % (Auto) 66.9 % Lymph % (Auto) 11.1 % Stone % (Auto) 12.4 % Eos % (Auto) 8.3 % Baso % (Auto) 0.9 % Neut # (Auto) 4.94 (1.40-6.50) K/uL Lymph # (Auto) 0.82 L (1.20-3.40) K/uL Stone # (Auto) 0.92 H (0.11-0.59) K/uL Eos # (Auto) 0.61 H (0.00-0.50) K/uL Baso # (Auto) 0.07 (0.00-0.20) K/uL Immature Gran # (Auto) 0.03 (0.01-0.20) K/uL PT 20.5 H (9.0-12.0) Seconds INR 2.0 H (0.9-1.1) Sodium 134 L (136-145) mmol/L Potassium 3.4 L (3.5-5.1) mmol/L Chloride 96 L (98-107) mmol/L Carbon Dioxide 28 (21-32) mmol/L Anion Gap 10 (3-11) BUN 31 H (6-23) mg/dl Creatinine 6.46 H* D (0.6-1.4) mg/dl Est Cr Clr Drug Dosing 10.9 ml/min Est GFR ( Amer) 8.8 ml/min Est GFR (Non-Af Amer) 7.6 ml/min BUN/Creatinine Ratio 4.8 L (10-20) Glucose 204 H (70-99(Fasting)) mg/dl Calcium 8.2 L (8.6-10.3) mg/dl PG Care Time/CCT Total # of Minutes Spent Total Time Spent with Patient: Total time spent is greater than 50% in coordination of care (as documented) at patient's floor/unit and/or counseling patient: Coding Level of Care Code None Diagnoses Bright red rectal bleeding K62.5 Anticoagulant long-term use Z79.01
--- NOTE | 2024-04-15 09:30 | Anesthesiology Consultation ---
Date of Service April 15, 2024 Assessment & Plan Chart Review Chart Review: Acceptable Risk for Surgery and Patient NOT seen in Pre Admission Testing Consults Requested none History Surgery Operation Date: 04/15/24 17:00 Proposed Procedures p Colonoscopy Dr. Ryanne Pearl MD Height/Weight Height: 5 ft 9 in Weight: 94.7 kg Allergies Allergy/AdvReac Type Severity Reaction Status Date / Time No Known Allergies Allergy Verified 04/13/24 02:01 Medications Home Medications Medication Instructions Recorded Confirmed Last Taken docusate sodium 100 mg capsule 100 mg PO BID 10/13/23 04/13/24 04/12/24 (Stool Softener) am V-8 Low Sodium 1 can PO QAM 04/13/24 04/13/24 04/12/24 am amiodarone 100 mg tablet 100 mg PO QAM 04/13/24 04/13/24 04/12/24 carvedilol 6.25 mg tablet 3.125 mg PO QPM 04/13/24 04/13/24 04/11/24 cholecalciferol (vitamin D3) 50 50 mcg PO AMPM 04/13/24 04/13/24 04/12/24 mcg (2,000 unit) tablet (Vitamin am D3) polyethylene glycol 3350 17 8.5 g PO QAM 04/13/24 04/13/24 04/12/24 gram/dose oral powder (Miralax) vitamin B complex-vitamin C-folic 1 tab PO QAM 04/13/24 04/13/24 04/12/24 acid 0.8 mg tablet (Renal-Igor) warfarin 5 mg tablet See Rx Instructions .Route .COMPLEX 04/13/24 04/13/24 04/11/24 Active Medications Generic Name Dose Route Start Last Admin Trade Name Freq PRN Reason Stop Dose Admin Amiodarone HCl 100 mg 04/13/24 09:00 04/15/24 08:14 Amiodarone 200 Mg Tab PO 05/13/24 08:59 100 mg QAM JULIANNA Administration Carvedilol 3.125 mg 04/13/24 21:00 04/14/24 20:35 Carvedilol 3.125 Mg Tab PO 05/13/24 20:59 3.125 mg QPM JULIANNA Administration Docusate Sodium 100 mg 04/13/24 09:00 04/15/24 08:16 Docusate Sodium 100 Mg Cap PO 05/13/24 08:59 100 mg BID JULIANNA Administration Pantoprazole Sodium 40 mg/ 10 mls @ 5 mls/min 04/13/24 09:00 04/15/24 08:15 Syringe IV 05/13/24 08:59 5 mls/min BID JULIANNA Administration Metronidazole 500 mg in 100 mls @ 100 mls/hr 04/14/24 14:30 04/15/24 09:09 Flagyl IV 04/17/24 09:29 0 mls/hr Q6H JULIANNA Infusion Nystatin 5 ml 04/14/24 14:30 04/15/24 08:14 Nystatin Susp 500,000 U/5 Ml Udc PO 04/17/24 09:01 5 ml QID JULIANNA Administration Vitamin B Complex/Folic Acid 1 cap 04/13/24 09:00 04/15/24 08:14 Nephrocaps PO 05/13/24 08:59 1 cap QAM JULIANNA Administration Vitamin D 50 mcg 04/13/24 09:00 04/15/24 08:14 Cholecalciferol 25 Mcg (1000 Units) Tab PO 05/13/24 08:59 50 mcg BID JULIANNA Administration NPO Date Last Intake of Fluids: 04/15/24 Time Last Intake of Fluids: 07:30 Last Intake of Fluids Comment: sip with meds Date Last Intake of Solids: 04/12/24 Last Intake of Solids Comment: unsure of time Past Medical History Medical History (Updated 04/13/24 @ 12:34 by Teena Galvan MD, PhD) ESRD on peritoneal dialysis Renal cyst 3.9 cm cystic lesion-L Paroxysmal A-fib listed in [facility] records CAD (coronary artery disease) PVD (peripheral vascular disease) Dysphagia Anemia Pulmonary nodule MGUS (monoclonal gammopathy of unknown significance) follows with [facility] heme/onc LBBB (left bundle branch block) Hearing deficit Past Family History Family History Father Diabetes Other No family history of adverse response to anesthesia Past Surgical History Surgical History History of appendectomy History of tooth extraction all teeth removed History of bilateral cataract extraction History of prostatectomy Social History Smoking Status: Former smoker tobacco type: cigars Do You Dip or Chew Tobacco: No Hx Alcohol Use: Yes Alcohol type: beer and wine alcohol intake frequency: 0-2 drinks per day Hx Substance Use: No substance use type: does not use Physical Exam Vital Signs Last Vital Signs Temp 36.7 C 04/15/24 09:25 Pulse 81 04/15/24 09:25 Resp 16 04/15/24 09:25 BP 99/67 L 04/15/24 09:25 Pulse Ox 94 04/15/24 09:25 O2 Del Method Room Air 04/15/24 09:25 Constitutional WD/WN, vitals as above well developed, well nourished, + frail appearing and cooperative; no acute distress Eyes EOM intact bilaterally ENMT Ears: + hearing impairment; no external ear abnormality Nose: no external nose abnormality Mouth: + dry oral mucous membranes Neck no nuchal rigidity Respiratory normal respiratory effort, lungs clear to auscultation normal respiratory effort and + labored breathing (with exam maneuvers); no cough, not tachypneic and no paradoxical thoraco-abdominal movemnt Auscultation: + diminished lung sounds Cardiovascular Rate/Rhythm: regular rate and regular rhythm Extremities: + edema (BLE proximally) Gastrointestinal (Abdomen) normal bowel sounds, soft, nontender, no hepatosplenomegaly Inspection/Auscultation: abdomen normal to inspection (PD catheter present) and normal bowel sounds Percussion/Palpation: abdomen soft and + fluid wave; abdomen nontender Musculoskeletal Extremities: strength 5/5 throughout Skin no rashes, warm and dry Psychiatric Orientation: alert and oriented x 3 Speech: normal rate/rhythm/volume of speech Testing Laboratory Results 04/15/24 05:26 04/15/24 05:26 PT 20.5 Seconds (9.0-12.0) H 04/15/24 05:26 INR 2.0 (0.9-1.1) H 04/15/24 05:26 APTT 45 Seconds (21-31) H 04/12/24 22:53 Blood Type B Positive 04/12/24 22:49 Antibody Screen NEGATIVE 04/12/24 22:49
[2024-04-15] MEDS: SODIUM CHLORIDE 0.9% 500 ML IV SCH ×2 (09:34→12:38)
--- NOTE | 2024-04-15 10:41 | GI REPORT ---
[facility] Patient: JIGNESH BIRD : 1945 Sex at : Male Age: 78 Years Procedure: Colonoscopy Date: 04/15/2024 Attending Physician: Jc Pearl MD Referring MD: Referred Self Indications: - Rectal bleeding Medications: - Monitored Anesthesia Care Complications: - No immediate complications. Estimated Blood Loss: - Estimated blood loss: none. Procedure: - The pediatric colonoscope was introduced through the anus and advanced to the cecum, identified by appendiceal orifice and ileocecal valve. - The colonoscopy was somewhat difficult due to significant looping. Successful completion of the procedure was aided by applying abdominal pressure. Findings: - The digital exam findings include surgically absent prostate. Pertinent negatives include no palpable rectal lesions. - Three flat polyps were found in the cecum and descending colon. The polyps were 8 to 10 mm in size. These polyps were removed with a cold snare. Resection and retrieval were complete. Polypectomy of the cecal polyp was difficult due to the looping of the colonoscope and position of the polyp. - A few medium-mouthed diverticula were found in the left colon. - Internal hemorrhoids were found. The hemorrhoids were moderate. Impression: - A surgically absent prostate found on digital exam. - Three 8 to 10 mm polyps in the cecum and in the descending colon, removed with a cold snare. Resected and retrieved. - Polypectomy of the cecal polyp was difficult due to the looping of the colonoscope and position of the polyp. - Diverticulosis in the left colon. - Internal hemorrhoids. Recommendation: - Await pathology results. - Repeat colonoscopy in 3 years for surveillance. - Return to primary care physician as previously scheduled. Procedure Code(s): - 80770, Colonoscopy, flexible; with removal of tumor(s), polyp(s), or other lesion(s) by snare technique Diagnosis Code(s): - K62.5, Hemorrhage of anus and rectum - Z90.79, Acquired absence of other genital organ(s) - D12.0, Benign neoplasm of cecum - D12.4, Benign neoplasm of descending colon - K64.8, Other hemorrhoids - K57.30, Diverticulosis of large intestine without perforation or abscess without bleeding CPT(R) - 2023 copyright [employer]. All Rights Reserved. The CPT codes, CCI edits and ICD codes generated are intended as suggestions and were generated based on input data. These codes are preliminary and upon outpatient coder review may be revised to meet current compliance and payer requirements. The provider is responsible for the final determination of appropriate codes, and modifiers. Jc Pearl M.D. This document has been electronically signed. Note Initiated:04/15/2024 Note Completed:04/15/2024 10:40 AM \\[email or web address]\[id number]
--- NOTE | 2024-04-15 10:42 | Communication Note ---
Date of Service: April 15, 2024 Colonoscopy: Large internal hemorrhoids, left-sided colonic diverticula, 3 colonic polyps, the largest 1 in the cecum measured about 1 cm. All polyps were removed with cold snare polypectomy. Removal of the cecal polyp was difficult due to the looping of the colonoscope and position of the polyp behind the folds. Recommendations: Okay to restart Coumadin tomorrow. Follow-up on pathology reports. Follow-up colonoscopy in 3 years.
[2024-04-15] MEDS: POTASSIUM CHLORIDE / WTR 10 MEQ/100 ML PLCT IV SCH (12:38)
[2024-04-15] MEDS: POTASSIUM CHLORIDE CRTAB 20 MEQ TABCR PO STA (13:29)
--- NOTE | 2024-04-15 14:50 | Anesthesiology Progress Note ---
Date of Service April 15, 2024 Anesthesia Post Procedure Vital Signs Vital Signs: Temp Pulse Pulse Resp BP BP Pulse Ox 04/15/24 12:04 36.3 C L 74 18 118/70 92 04/15/24 11:08 75 16 109/51 L 95 04/15/24 10:55 75 16 78/45 L 96 04/15/24 10:40 80 16 84/47 L 95 04/15/24 09:25 36.7 C 81 16 99/67 L 94 04/15/24 08:15 36.6 C 80 18 04/15/24 08:00 56 L 04/15/24 07:04 36.7 C 78 18 111/71 96 04/15/24 02:03 36.7 C 77 18 130/78 93 04/14/24 22:14 36.6 C 72 18 111/69 96 04/14/24 20:00 71 04/14/24 19:52 36.5 C 76 18 103/63 95 04/14/24 16:45 36.5 C 80 18 127/73 04/14/24 15:34 36.5 C 79 19 127/73 95 O2 Del Method 04/15/24 12:04 Room Air 04/15/24 11:08 Room Air 04/15/24 10:55 Room Air 04/15/24 10:40 Room Air 04/15/24 09:25 Room Air 04/15/24 08:15 04/15/24 08:00 04/15/24 07:04 Room Air 04/15/24 02:03 Room Air 04/14/24 22:14 Room Air 04/14/24 20:00 04/14/24 19:52 Room Air 04/14/24 16:45 04/14/24 15:34 Room Air Transfer of Care Handoff Completed per policy Notes Mental Status: alert / awake / arousable Patient Amnestic to Procedure: Yes Nausea / Vomiting: adequately controlled Pain: adequately controlled Airway Patency, RR, SpO2: stable & adequate BP & HR: stable & adequate Hydration State: stable & adequate Anesthetic Complications: no major complications apparent and Pt Satisfied with anesthetic care
[2024-04-15] MEDS ORDERED: SODIUM CHLORIDE 0.9% 1,000 ML IV PRN (15:47)
--- NOTE | 2024-04-15 18:48 | Hospitalist Progress Note ---
Date of Service April 15, 2024 Assessment & Plan (1) Bright red rectal bleeding: Plan: Per previous hospitalist notes with addendum: 78-year-old male with past medical history significant for peripheral vascular disease, hypertension, end-stage renal disease on peritoneal dialysis, History of hypertrophic cardiomyopathy, paroxysmal atrial flutter ,history of unprovoked bilateral pulmonary embolism diagnosed in October 13 2023 and on Coumadin presents with a rectal bleed. Patient lives alone. Currently ambulates with a walker but balance not great as per his ex-. His ex- and son checks on him. And also has caregivers . Patient is very hard of hearing. His ex- helped with H&P. From 3 PM to 8 PM patient was having bright red blood per rectum. Patient denies any abdominal pain. No chest pain. As per his ex- he gets SOB on ambulation and could not walk long distance. Patient denies any headache. No dizziness. No blurred vision. No runny nose or sore throat. No cough. He has issues with swallowing and recently had B otox injection for oesophageal dysmotility and also has follow-up appointment with GI pr ex . Currently denies nausea. Does not make urine. Currently resting comfortably and hemodynamically stable. Acute blood loss anemia Secondary to hematochezia Likely lower GI bleed bright blood per rectum currently seems slowed down hemoglobin stable at 13.6 blood consent obtained H&H every 6 hours will hold Coumadin INR is 3.2 if continues to bleed will give IV vitamin K close monitoring telemetry n.p.o. and gentle fluids IV Protonix 40 mg twice daily GI consult in a.m. 04/14 Hemoglobin remained stable 10.9 INR 2.1 Plan for colonoscopy tomorrow Monitor H&H 04/15 Status post colonoscopy: Large internal hemorrhoids, diverticulosis, polyps Hemoglobin stable around 11 INR 2.0 Resume Coumadin tomorrow per GI unprovoked bilateral pulmonary embolism diagnosed October 13, 2023 holding Coumadin for above as per the ex- there is a plan for VQ scan in a.m. 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 Full code for now. To call family. Disposition Lives at home with family Admission and Anticipated Discharge Date Admission Date: April 13, 2024 Subjective Follow-up for GI bleed, rectal bleed, etc. Status post colonoscopy today Seen with sitting in bed, comfortable, in good spirits States he feels fine overall No abdominal pain, nausea vomiting, recurrence of rectal bleed No chest pain, shortness of breath, dizziness No other new symptoms Review of Systems Review of Systems: all noted and negative except for above Physical Exam Physical Exam: General- oriented x 3, not in distress, speaks in sentences with no effort or accessory muscle use Eyes- anicteric Neck- no JVD Lungs- clear breath sounds bilaterally, no rales/wheezes Heart- normal rate, regular rhythm; no murmurs Abdomen- normal bowel sounds, nondistended, soft, nontender Extremities- no pretibial edema, no calf tenderness Neuro- alert, oriented x 3; no gross focal neurologic deficits Skin- warm & dry Results & Data Results & Data Vital Signs (Past 12 Hours) Vital Signs Temp Pulse Pulse Resp BP BP Pulse Ox 04/15/24 16:05 36.5 C 81 18 110/70 04/15/24 15:06 36.6 C 84 18 109/69 95 04/15/24 12:04 36.3 C L 74 18 118/70 92 04/15/24 11:08 75 16 109/51 L 95 04/15/24 10:55 75 16 78/45 L 96 04/15/24 10:40 80 16 84/47 L 95 04/15/24 09:25 36.7 C 81 16 99/67 L 94 04/15/24 08:15 36.6 C 80 18 04/15/24 08:00 56 L 04/15/24 07:04 36.7 C 78 18 111/71 96 O2 Del Method 04/15/24 16:05 04/15/24 15:06 Room Air 04/15/24 12:04 Room Air 04/15/24 11:08 Room Air 04/15/24 10:55 Room Air 04/15/24 10:40 Room Air 04/15/24 09:25 Room Air 04/15/24 08:15 04/15/24 08:00 04/15/24 07:04 Room Air all noted and reviewed including below
[2024-04-16 05:21] LABS: BUN Creatinine Ratio 4.5 (10-20); Creatinine Clr Calc Pharmacy 10.9 ml/min; Est GFR (African American) 8.8 ml/min; Est GFR (Non-African American) 7.6 ml/min; Potassium 3.5 mmol/L (3.5-5.1)
[2024-04-16 05:35] LABS: INR 1.8 (0.9-1.1); Prothrombin Time 18.8 Seconds (9.0-12.0)
[2024-04-16 05:40] LABS: Basophils # (auto) 0.08 K/uL (0.00-0.20); Basophils % (auto) 1.1 %; Eosinophils # (auto) 0.51 K/uL (0.00-0.50); Eosinophils % (auto) 7.3 %; Hematocrit (blood only) 30.2 % (42.0-52.0); Hemoglobin 10.2 g/dl (14.0-18.0); Immature Granulocytes # (auto) 0.02 K/uL (0.01-0.20); Immature Granulocytes % (auto) 0.3 %; Lymphocytes # (auto) 1.01 K/uL (1.20-3.40); Lymphocytes % (auto) 14.4 %; Mean Corpuscular Hemoglobin 29.7 pg (25.0-34.0); Mean Corpuscular Hgb Conc 33.8 g/dL (32.0-36.0); Mean Platelet Volume 10.4 fL (9.4-12.4); Monocytes # (auto) 1.13 K/uL (0.11-0.59); Monocytes % (auto) 16.1 %; Neutrophils # (auto) 4.27 K/uL (1.40-6.50); Neutrophils % (auto) 60.8 %; Platelet Count 202 K/uL (130-400); RDW Coefficient of Variation 15.6 % (11.5-14.5); RDW Standard Deviation 49.7 fL (36.4-46.3); Red Blood Count 3.43 M/uL (4.70-6.10); White Blood Count 7.02 K/ul (4.8-10.8)
[2024-04-16] MEDS: WARFARIN SOD 6 MG TAB PO SCH (16:21)
--- NOTE | 2024-04-16 18:53 | Hospitalist Progress Note ---
Date of Service April 16, 2024 Assessment & Plan (1) Bright red rectal bleeding: Plan: Per previous hospitalist notes with addendum: 78-year-old male with past medical history significant for peripheral vascular disease, hypertension, end-stage renal disease on peritoneal dialysis, History of hypertrophic cardiomyopathy, paroxysmal atrial flutter ,history of unprovoked bilateral pulmonary embolism diagnosed in October 13 2023 and on Coumadin presents with a rectal bleed. Patient lives alone. Currently ambulates with a walker but balance not great as per his ex-. His ex- and son checks on him. And also has caregivers . Patient is very hard of hearing. His ex- helped with H&P. From 3 PM to 8 PM patient was having bright red blood per rectum. Patient denies any abdominal pain. No chest pain. As per his ex- he gets SOB on ambulation and could not walk long distance. Patient denies any headache. No dizziness. No blurred vision. No runny nose or sore throat. No cough. He has issues with swallowing and recently had B otox injection for oesophageal dysmotility and also has follow-up appointment with GI pr ex . Currently denies nausea. Does not make urine. Currently resting comfortably and hemodynamically stable. Acute blood loss anemia Secondary to hematochezia Likely lower GI bleed bright blood per rectum currently seems slowed down hemoglobin stable at 13.6 blood consent obtained H&H every 6 hours will hold Coumadin INR is 3.2 if continues to bleed will give IV vitamin K close monitoring telemetry n.p.o. and gentle fluids IV Protonix 40 mg twice daily GI consult in a.m. 04/14 Hemoglobin remained stable 10.9 INR 2.1 Plan for colonoscopy tomorrow Monitor H&H 04/15 Status post colonoscopy: Large internal hemorrhoids, diverticulosis, polyps Hemoglobin stable around 11 INR 2.0 Resume Coumadin tomorrow per GI 04/16 No recurrence of GI bleeding Globin stable at 10 Will go ahead and resume Coumadin today at 6 mg Monitor close unprovoked bilateral pulmonary embolism diagnosed October 13, 2023 holding Coumadin for above as per the ex- there is a plan for VQ scan in a.m. to restart Coumadin as soon as able to 04/14 INR 2.1 For colonoscopy tomorrow Hopefully can resume Coumadin once okay with GI 04/15 INR 2.0 Resume Coumadin tomorrow 628 INR 1.8 Resume Coumadin Discussed with supervisor communications and signals Dr. 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 Full code for now. To call family. Disposition Lives at home with family Admission and Anticipated Discharge Date Admission Date: April 13, 2024 Subjective Follow-up for GI bleed, etc. Seen resting in bed, sitting up, comfortable, watching TV States he feels fine overall No abdominal pain, no recurrence of melena or hematochezia No abdominal pain, nausea vomiting No shortness of breath, chest pain, palpitations No other new symptoms Review of Systems Review of Systems: all noted and negative except for above Physical Exam Physical Exam: General- oriented x 3, not in distress, speaks in sentences with no effort or accessory muscle use Eyes- anicteric Neck- no JVD Lungs- clear breath sounds bilaterally, no rales/wheezes Heart- normal rate, regular rhythm; no murmurs Abdomen- normal bowel sounds, nondistended, soft, nontender Extremities- no pretibial edema, no calf tenderness Neuro- alert, oriented x 3; no gross focal neurologic deficits Skin- warm & dry Results & Data Results & Data Vital Signs (Past 12 Hours) Vital Signs Temp Pulse Pulse Resp BP Pulse Ox O2 Del Method 04/16/24 16:09 72 04/16/24 15:23 36.4 C L 84 18 119/74 92 Room Air 04/16/24 11:04 36.4 C L 74 18 117/73 92 Room Air 04/16/24 08:20 36.4 C L 73 18 04/16/24 08:00 Room Air 04/16/24 07:30 72 04/16/24 07:10 36.4 C L 73 18 102/68 93 Room Air all noted and reviewed including below
[2024-04-17 05:54] LABS: Basophils # (auto) 0.07 K/uL (0.00-0.20); Eosinophils # (auto) 0.57 K/uL (0.00-0.50); Hematocrit (blood only) 32.6 % (42.0-52.0); Immature Granulocytes # (auto) 0.03 K/uL (0.01-0.20); Immature Granulocytes % (auto) 0.4 %; Lymphocytes # (auto) 0.92 K/uL (1.20-3.40); Lymphocytes % (auto) 12.9 %; Mean Corpuscular Hemoglobin 29.7 pg (25.0-34.0); Mean Corpuscular Hgb Conc 33.7 g/dL (32.0-36.0); Mean Corpuscular Volume 88.1 fL (80.0-100.0); Mean Platelet Volume 10.3 fL (9.4-12.4); Monocytes % (auto) 14.1 %; Neutrophils # (auto) 4.52 K/uL (1.40-6.50); Neutrophils % (auto) 63.6 %; Platelet Count 212 K/uL (130-400); RDW Coefficient of Variation 15.3 % (11.5-14.5); RDW Standard Deviation 48.4 fL (36.4-46.3); White Blood Count 7.11 K/ul (4.8-10.8)
[2024-04-17 06:15] LABS: INR 1.5 (0.9-1.1); Prothrombin Time 15.8 Seconds (9.0-12.0)
[2024-04-17 06:25] LABS: BUN Creatinine Ratio 4.7 (10-20); Calcium 8.2 mg/dl (8.6-10.3); Creatinine Clr Calc Pharmacy 11.4 ml/min; Est GFR (African American) 9.2 ml/min; Est GFR (Non-African American) 7.9 ml/min; Potassium 3.3 mmol/L (3.5-5.1)
--- NOTE | 2024-04-17 10:51 | Nephrology Progress Note ---
Date of Service April 17, 2024 Assessment & Plan (1) ESRD on peritoneal dialysis: Plan: Tolerated PD well last night with 2 reds and 1 grain, 5 exchanges over 14 hours and net UF of 2.8 L.For tonight to reduce to 10 hours, 5 exchanges and would use 2.5% and 4.125% -pls continue renal vitamin -does not take binders as OP -Continue coreg, amiodarone From renal standpoint patient can be discharged today to continue his home PD prescription (2) Bright red rectal bleeding: Plan: -trend hgb has been stable Admission and Anticipated Discharge Date Admission Date: April 13, 2024 Subjective Seen for ESRD on PD. Patient on PD last night. No shortness of breath on exertion today. UF was 2865 from last night. Review of Systems 2 Review of Systems: All other systems were reviewed and negative except as noted in HPI Physical Exam 2 Physical Exam: General exam: Appears comfortable, no acute distress HEENT: Pupils are equal and reactive to light Neck: No JVD, neck is supple trachea is midline Respiratory system: Clear breath sounds bilaterally. Gastrointestinal: Abdomen is soft, non distended, non tender, bowel sounds are present CVS: Regular rate and rhythm. No murmurs, rubs or gallops Musculoskeletal: No joint or muscle tenderness Extremities: Non tender, no edema, peripheral pulses are present Neuro: Oriented, no tremors, no focal neurological deficits Skin: No rashes Results & Data Vital Signs (Past 12 Hours) Vital Signs Temp Pulse Resp BP Pulse Ox O2 Del Method 04/17/24 09:20 36.7 C 76 14 04/17/24 07:52 36.7 C 76 14 103/65 91 Room Air 04/17/24 02:30 36.8 C 75 19 116/70 92 Room Air 04/16/24 22:58 36.7 C 77 16 114/74 91 Room Air Laboratory Results 04/17/24 05:02 04/17/24 05:02 WBC 7.11 RBC 3.70 L MCV 88.1 MCH 29.7 MCHC 33.7 RDW Std Deviation 48.4 H RDW Coeff of Maureen 15.3 H Plt Count 212 MPV 10.3
[2024-04-17] MEDS: POTASSIUM CHLORIDE CRTAB 20 MEQ TABCR PO SCH (11:38)
[2024-04-17] MEDS: POTASSIUM CHLORIDE 20 MEQ/15 ML UDC PO STA (12:12)
[2024-04-17] MEDS: WARFARIN SOD 10 MG TAB PO ONE (15:43)
--- NOTE | 2024-04-17 17:25 | Hospitalist Progress Note ---
Date of Service April 17, 2024 Assessment & Plan (1) Bright red rectal bleeding: Plan: Per previous hospitalist notes with addendum: 78-year-old male with past medical history significant for peripheral vascular disease, hypertension, end-stage renal disease on peritoneal dialysis, History of hypertrophic cardiomyopathy, paroxysmal atrial flutter ,history of unprovoked bilateral pulmonary embolism diagnosed in October 13 2023 and on Coumadin presents with a rectal bleed. Patient lives alone. Currently ambulates with a walker but balance not great as per his ex-. His ex- and son checks on him. And also has caregivers . Patient is very hard of hearing. His ex- helped with H&P. From 3 PM to 8 PM patient was having bright red blood per rectum. Patient denies any abdominal pain. No chest pain. As per his ex- he gets SOB on ambulation and could not walk long distance. Patient denies any headache. No dizziness. No blurred vision. No runny nose or sore throat. No cough. He has issues with swallowing and recently had B otox injection for oesophageal dysmotility and also has follow-up appointment with GI pr ex . Currently denies nausea. Does not make urine. Currently resting comfortably and hemodynamically stable. Acute blood loss anemia Secondary to hematochezia Likely lower GI bleed bright blood per rectum currently seems slowed down hemoglobin stable at 13.6 blood consent obtained H&H every 6 hours will hold Coumadin INR is 3.2 if continues to bleed will give IV vitamin K close monitoring telemetry n.p.o. and gentle fluids IV Protonix 40 mg twice daily GI consult in a.m. 04/14 Hemoglobin remained stable 10.9 INR 2.1 Plan for colonoscopy tomorrow Monitor H&H 04/15 Status post colonoscopy: Large internal hemorrhoids, diverticulosis, polyps Hemoglobin stable around 11 INR 2.0 Resume Coumadin tomorrow per GI 04/16 No recurrence of GI bleeding Globin stable at 10 Will go ahead and resume Coumadin today at 6 mg Monitor close 04/17 stable Hg stable unprovoked bilateral pulmonary embolism diagnosed October 13, 2023 holding Coumadin for above as per the ex- there is a plan for VQ scan in a.m. to restart Coumadin as soon as able to 04/14 INR 2.1 For colonoscopy tomorrow Hopefully can resume Coumadin once okay with GI 04/15 INR 2.0 Resume Coumadin tomorrow 628 INR 1.8 Resume Coumadin Discussed with oriental medicine practitioner Dr. 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 on amiodarone and Coreg Coumadin on hold for above reasons history of prostate cancer s/p surgery DVT prophylaxis SCDs INR 1.5 on coumadin CODE STATUS Disposition Lives at home with family Admission and Anticipated Discharge Date Admission Date: April 13, 2024 Subjective ff up for GI bleed, etc seen resting in bed, comfortable states he feels fine overall No abdominal pain, nausea or vomiting, melena hematochezia No chest pain, palpitation, dizziness no other symptoms Review of Systems 2 Review of Systems: all noted and negative except for above Physical Exam Physical Exam: General- oriented x 3, not in distress, speaks in sentences with no effort or accessory muscle use Eyes- anicteric Neck- no JVD Lungs- clear breath sounds bilaterally, no rales/wheezes Heart- normal rate, regular rhythm; no murmurs Abdomen- normal bowel sounds, nondistended, soft, no tenderness Extremities- no pretibial edema, no calf tenderness Neuro- alert, oriented x 3; no gross focal neurologic deficits Skin- warm & dry Results & Data Results & Data Vital Signs (Past 12 Hours) Vital Signs Temp Pulse Pulse Resp BP BP Pulse Ox 04/17/24 15:31 36.8 C 75 18 109/69 93 04/17/24 14:52 77 04/17/24 11:32 77 04/17/24 11:00 36.4 C L 79 23 104/66 93 04/17/24 09:20 36.7 C 76 14 04/17/24 07:52 36.7 C 76 14 103/65 91 O2 Del Method 04/17/24 15:31 Room Air 04/17/24 14:52 04/17/24 11:32 04/17/24 11:00 Room Air 04/17/24 09:20 04/17/24 07:52 Room Air all noted and reviewed including below
[2024-04-18 06:18] LABS: Basophils # (auto) 0.07 K/uL (0.00-0.20); Basophils % (auto) 0.9 %; Eosinophils # (auto) 0.65 K/uL (0.00-0.50); Eosinophils % (auto) 8.2 %; Hematocrit (blood only) 32.7 % (42.0-52.0); Immature Granulocytes # (auto) 0.03 K/uL (0.01-0.20); Immature Granulocytes % (auto) 0.4 %; Lymphocytes # (auto) 0.99 K/uL (1.20-3.40); Lymphocytes % (auto) 12.5 %; Mean Corpuscular Hemoglobin 29.7 pg (25.0-34.0); Mean Corpuscular Hgb Conc 33.6 g/dL (32.0-36.0); Mean Corpuscular Volume 88.4 fL (80.0-100.0); Mean Platelet Volume 10.6 fL (9.4-12.4); Monocytes # (auto) 1.08 K/uL (0.11-0.59); Monocytes % (auto) 13.7 %; Neutrophils # (auto) 5.09 K/uL (1.40-6.50); Neutrophils % (auto) 64.3 %; Platelet Count 208 K/uL (130-400); RDW Coefficient of Variation 15.4 % (11.5-14.5); RDW Standard Deviation 49.8 fL (36.4-46.3); White Blood Count 7.91 K/ul (4.8-10.8)
[2024-04-18 06:33] LABS: BUN Creatinine Ratio 4.5 (10-20); Calcium 8.4 mg/dl (8.6-10.3); Creatinine Clr Calc Pharmacy 11.1 ml/min; Est GFR (African American) 9.3 ml/min; Potassium 3.7 mmol/L (3.5-5.1)
[2024-04-18 06:35] LABS: INR 2.1 (0.9-1.1); Prothrombin Time 21.1 Seconds (9.0-12.0)
--- NOTE | 2024-04-18 10:24 | Nephrology Progress Note ---
Date of Service April 18, 2024 Assessment & Plan (1) ESRD on peritoneal dialysis: Plan: Tolerated PD well last night with 1 red and 1 green, 5 exchanges over 10 hours and net UF of 1.2 L.For tonight, continue 10 hours, 5 exchanges using 2.5% and 4.125% -pls continue renal vitamin -does not take binders as OP -Continue coreg, amiodarone From renal standpoint patient can be discharged today to continue his home PD prescription (2) Bright red rectal bleeding: Plan: -trend hgb has been stable Admission and Anticipated Discharge Date Admission Date: April 13, 2024 Subjective Seen for ESRD on PD. He tolerated PD well last night. He feels better today. No shortness of breath or abdominal pain. Patient was seen and examined while on PD Review of Systems 2 Review of Systems: All other systems were reviewed and negative except as noted in HPI Physical Exam 2 Physical Exam: General exam: Appears comfortable, no acute distress HEENT: Pupils are equal and reactive to light Neck: No JVD, neck is supple trachea is midline Respiratory system: Clear breath sounds bilaterally. Gastrointestinal: Abdomen is soft, non distended, non tender, bowel sounds are present CVS: Regular rate and rhythm. No murmurs, rubs or gallops Musculoskeletal: No joint or muscle tenderness Extremities: Non tender, no edema, peripheral pulses are present Neuro: Oriented, no tremors, no focal neurological deficits Skin: No rashes Results & Data Vital Signs (Past 12 Hours) Vital Signs Temp Pulse Resp BP Pulse Ox O2 Del Method 04/18/24 08:48 36.8 C 76 16 04/18/24 08:10 36.8 C 76 16 112/68 93 Room Air 04/18/24 02:25 37.1 C 79 16 103/69 94 Room Air 04/17/24 22:30 36.9 C 84 18 113/72 95 Room Air Laboratory Results 04/18/24 05:21 04/18/24 05:21 WBC 7.91 RBC 3.70 L MCV 88.4 MCH 29.7 MCHC 33.6 RDW Std Deviation 49.8 H RDW Coeff of Maureen 15.4 H Plt Count 208 MPV 10.6
--- NOTE | 2024-04-18 12:25 | Discharge Summary ---
Discharge Summary Date of Service April 18, 2024 Principal Dx & Hospital Course #1 = Principal Diagnosis (1) Bright red rectal bleeding: Per previous hospitalist notes with addendum: 78-year-old male with past medical history significant for peripheral vascular disease, hypertension, end-stage renal disease on peritoneal dialysis, History of hypertrophic cardiomyopathy, paroxysmal atrial flutter ,history of unprovoked bilateral pulmonary embolism diagnosed in October 13 2023 and on Coumadin presents with a rectal bleed. Patient lives alone. Currently ambulates with a walker but balance not great as per his ex-. His ex- and son checks on him. And also has caregivers . Patient is very hard of hearing. His ex- helped with H&P. From 3 PM to 8 PM patient was having bright red blood per rectum. Patient denies any abdominal pain. No chest pain. As per his ex- he gets SOB on ambulation and could not walk long distance. Patient denies any headache. No dizziness. No blurred vision. No runny nose or sore throat. No cough. He has issues with swallowing and recently had Botox injection for oesophageal dysmotility and also has follow-up appointment with GI pr ex . Currently denies nausea. Does not make urine. Currently resting comfortably and hemodynamically stable. Acute blood loss anemia Secondary to hematochezia Likely lower GI bleed bright blood per rectum hemoglobin stable 13.6 on admisison INR is 3.2 IV Protonix 40 mg twice daily GI consult in a.m. Hemoglobin trended down but remained stable 10.9 did not require blood transfusion or Vit K No recurrence of hematochezia or melena, in the hospital 04/15 Status post colonoscopy: - A surgically absent prostate found on digital exam. - Three 8 to 10 mm polyps in the cecum and in the descending colon, removed with a cold snare. Resected and retrieved. - Polypectomy of the cecal polyp was difficult due to the looping of the colonoscope and position of the polyp. - Diverticulosis in the left colon. - Internal hemorrhoids. Coumadin resumed Held Coumadin during admission INR during admission was 3.2, did not require vitamin K INR dropped to 1.5 Coumadin resumed INR as of 04/18 is 2.1 Advised to hold Coumadin today Resume tomorrow which is Friday [facility] as per patient's significant other Dyana Monitor hemoglobin as outpatient closely Monitor INR closely Continue stool softener Colace to prevent constipation unprovoked bilateral pulmonary embolism diagnosed October 13, 2023 Held Coumadin during admission INR during admission was 3.2, did not require vitamin K INR dropped to 1.5 Coumadin resumed Hematology/oncology consulted INR as of 04/18 is 2.1 Advised Dyana to hold Coumadin today Resume tomorrow which is Friday Patient will be having [facility] care at [facility] either Friday or Friday as per patient's significant other Dyana Monitor hemoglobin as outpatient closely Monitor INR closely Continue stool softener Colace to prevent constipation end-stage renal disease on peritoneal dialysis Nephrology on board hypertension on Coreg paroxysmal atrial flutter 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 on amiodarone and Coreg Coumadin on hold for above reasons history of prostate cancer s/p surgery Disposition Follow-up with PCP in 1 week plan of care discussed with patient and his Significant other Dyana in detail all questions answered they are understanding, agreeable, comfortable with the plan of care Notes For Next Care Provider Medication Changes From Visit None Admission HPI Per Admitting Provider 78-year-old male with past medical history significant for peripheral vascular disease, hypertension, end-stage renal disease on peritoneal dialysis, History of hypertrophic cardiomyopathy, paroxysmal atrial flutter ,history of unprovoked bilateral pulmonary embolism diagnosed in October 13 2023 and on Coumadin presents with a rectal bleed. Patient lives alone. Currently ambulates with a walker but balance not great as per his ex-. His ex- and son checks on him. And also has caregivers . Patient is very hard of hearing. His ex- helped with H&P. From 3 PM to 8 PM patient was having bright red blood per rectum. Patient denies any abdominal pain. No chest pain. As per his ex- he gets SOB on ambulation and could not walk long distance. Patient denies any headache. No dizziness. No blurred vision. No runny nose or sore throat. No cough. He has issues with swallowing and recently had Botox injection for oesophageal dysmotility and also has follow-up appointment with GI pr ex . Currently denies nausea. Does not make urine. Currently resting comfortably and hemodynamically stable. Past medical history. As mentioned above Past surgical history. S/p prostatectomy Social history. Former smoker. Quit smoking in January 2023 as per ex-. Alcohol 4 mixed drink per week as per epic. No drug use. Admission Exam Per Admitting Provider General- Not in distress. Hard of hearing. Head- atraumatic Eyes- PERRL ENT- oropharynx clear Neck- supple, no JVD. Lungs- clear to auscultation no wheezing or crackles. Heart- regular rhythm; no murmur, no gallop. Abdomen- normal bowel sounds, soft, nontender, no distension. Extremities- no pretibial edema, no erythema seen Neuro- alert, oriented , hard of hearing, no facial palsy; no dysarthria; Discharge Exam General- oriented x 3, not in distress, speaks in sentences with no effort or accessory muscle use Eyes- anicteric Neck- no JVD Lungs- clear breath sounds bilaterally, no rales/wheezes Heart- normal rate, regular rhythm; no murmurs Abdomen- normal bowel sounds, nondistended, soft, nontender Extremities- no pretibial edema, no calf tenderness Neuro- alert, oriented x 3; no gross focal neurologic deficits Skin- warm & dry Updated Medication List Medication Instructions Recorded Confirmed Type docusate sodium 100 mg capsule 100 mg PO BID 10/13/23 04/13/24 History (Stool Softener) V-8 Low Sodium 1 can PO QAM 04/13/24 04/13/24 History amiodarone 100 mg tablet 100 mg PO QAM 04/13/24 04/13/24 History carvedilol 6.25 mg tablet 3.125 mg PO QPM 04/13/24 04/13/24 History cholecalciferol (vitamin D3) 50 50 mcg PO AMPM 04/13/24 04/13/24 History mcg (2,000 unit) tablet (Vitamin D3) polyethylene glycol 3350 17 8.5 g PO QAM 04/13/24 04/13/24 History gram/dose oral powder (Miralax) vitamin B complex-vitamin C-folic 1 tab PO QAM 04/13/24 04/13/24 History acid 0.8 mg tablet (Renal-Igor) warfarin 5 mg tablet See Rx Instructions .Route .COMPLEX 04/13/24 04/13/24 History Hospital Stay Data Consultations 04/13/24 00:51 ED Decision to Admit Stat 04/13/24 08:00 Consult Gastroenterology Routine Consult Nephrology Routine 04/14/24 08:54 Consult Hematology Routine Procedures Performed Operation Date: 04/15/24 17:00 Actual Procedures p Colonoscopy Polypectomy - Jc Pearl MD DICTATED BY: Jc Pearl MD [facility] Patient: JIGNESH BIRD : 1945 Sex at : Male Age: 78 Years Procedure: Colonoscopy Date: 04/15/2024 Attending Physician: Jc Pearl MD Referring MD: Referred Self Indications: - Rectal bleeding Medications: - Monitored Anesthesia Care Complications: - No immediate complications. Estimated Blood Loss: - Estimated blood loss: none. Procedure: - The pediatric colonoscope was introduced through the anus and advanced to the cecum, identified by appendiceal orifice and ileocecal valve. - The colonoscopy was somewhat difficult due to significant looping. Successful completion of the procedure was aided by applying abdominal pressure. Findings: - The digital exam findings include surgically absent prostate. Pertinent negatives include no palpable rectal lesions. - Three flat polyps were found in the cecum and descending colon. The polyps were 8 to 10 mm in size. These polyps were removed with a cold snare. Resection and retrieval were complete. Polypectomy of the cecal polyp was difficult due to the looping of the colonoscope and position of the polyp. - A few medium-mouthed diverticula were found in the left colon. - Internal hemorrhoids were found. The hemorrhoids were moderate. Impression: - A surgically absent prostate found on digital exam. - Three 8 to 10 mm polyps in the cecum and in the descending colon, removed with a cold snare. Resected and retrieved. - Polypectomy of the cecal polyp was difficult due to the looping of the colonoscope and position of the polyp. - Diverticulosis in the left colon. - Internal hemorrhoids. Recommendation: - Await pathology results. - Repeat colonoscopy in 3 years for surveillance. - Return to primary care physician as previously scheduled. Procedure Code(s): - 44646, Colonoscopy, flexible; with removal of tumor(s), polyp(s), or other lesion(s) by snare technique Diagnosis Code(s): - K62.5, Hemorrhage of anus and rectum - Z90.79, Acquired absence of other genital organ(s) - D12.0, Benign neoplasm of cecum - D12.4, Benign neoplasm of descending colon - K64.8, Other hemorrhoids - K57.30, Diverticulosis of large intestine without perforation or abscess without bleeding CPT(R) - 2023 copyright [employer]. All Rights Reserved. The CPT codes, CCI edits and ICD codes generated are intended as suggestions and were generated based on input data. These codes are preliminary and upon drip box tender review may be revised to meet current compliance and payer requirements. The provider is responsible for the final determination of appropriate codes, and modifiers. Jc Pearl M.D. This document has been electronically signed. Note Initiated:04/15/2024 Note Completed:04/15/2024 10:40 AM \\[email or web address]\Central\InterfaceData\Data\Provation\Results\LIVE\[id number]. Pending Results Patient Have Any Pending Studies at Discharge: No Discharge Instructions Given to Patient (Per Discharging Provider) Hold Coumadin for today. Resume usual regimen tomorrow. Follow up with [facility] for advice regarding blood work and Coumadin dose. PLEASE CALL YOUR PRIMARY CARE PHYSICIAN OR RETURN TO THE ER IF WITH WORSENING OF SYMPTOMS, INCLUDING Rectal bleeding, shortness of breath, dizziness, chest pain, etc. FOLLOW UP WITH PRIMARY CARE PHYSICIAN OUTLINED ABOVE. Total Time Total Time Spent Total Time Spent (In Minutes): 45 minutes
== END 2024-04-18 17:16 | disposition home or self-care (01) | DRG 377 ==
LOC: ED 21:39 → EDINP 04-13 02:44 → SUATTDRO 04-13 02:44 → 4W 04-13 04:53

== ENCOUNTER 2024-04-21 22:26 | Inpatient (IN) ==
--- NOTE | 2024-04-21 22:38 | Emergency Department Note ---
Impression & Plan Atrial fibrillation with RVR ADMIT ED Provider Note HPI: History obtained from patient. The patient is a 78-year-old gentleman with history of atrial fibrillation, currently on Coumadin, end-stage renal disease on peritoneal dialysis at home, recent admission to the hospital for lower GI bleeding, presents the emergency department with a chief complaint of weakness and a mechanical fall tonight. Patient tells me that earlier this evening he was walking down some steps when he felt very weak, he attempted to walk back up the steps when he felt like his legs "gave out" and he fell. Patient states he did not feel that he had the strength to get back up to his feet. His son was eventually able to come over and assist him. When he was brought to his feet he felt lightheaded and his son took his blood pressure and it was reportedly in the 70s systolic at home. EMS was therefore contacted and on their arrival the patient was noted to be tachycardic in the 140s and hypotensive in the 70s systolic. He was therefore brought to the ED to be assessed. On my initial assessment here in the ED the patient appears to be in no acute distress, he is noted to be tachycardic in the 130s and his initial blood pressure is 85/65 on arrival. Patient denies any chest pain or shortness of breath, denies any other focal complaint of pain. He states he did feel very weak and lightheaded earlier. ROS: - Per HPI Differential Diagnosis: Arrhythmia to include atrial fibrillation with RVR, ventricular tachycardia, SVT, acute coronary syndrome, symptomatic anemia, amongst other potential pathologies. *Outpatient medications and allergy history reviewed. PE: General: Alert HEENT: Normocephalic, trachea midline Eyes: Extraocular eye movement is intact, no scleral erythema Pulmonary: Clear to auscultation bilaterally, no wheezing Cardio: Tachycardic rate with regular rhythm GI: Abdomen is soft to palpation, peritoneal catheter in place without surrounding erythema or drainage : No suprapubic tenderness MSK: No evidence of trauma or malformation of the extremities, no edema Skin: No evidence of rash Neuro: Alert, no focal deficits Psychiatric: Cooperative INDEPENDENT INTERPRETATIONS: quality assurance monitor final: (As interpreted by myself): - An order was placed for continuous cardiac monitoring - Patient was noted to be in apparent atrial fibrillation with rate of 145 EKG: (As interpreted by myself): Rate: 142 Rhythm: Atrial fibrillation with underlying right bundle branch block Intervals: QRS 150 ms, QTc 556 ms, OH indeterminate ST changes: No ST elevation Time: 2231 EKG #2: (As interpreted by myself): Rate: 91 Rhythm: Sinus rhythm with first-degree AV block Intervals: OH interval 250 ms, QRS 154 ms, QTc [address] changes: No ST elevation Time: 01:42 Chest x-ray: (As interpreted by myself): No acute disease Interventions provided in ED: -IV fluid bolus, IV amiodarone bolus and drip Medical Decision Making: IV was established and lab work obtained, patient was given IV fluid bolus shortly after arrival given presenting tachycardia and hypotension. This does appear to be an acute onset episode after his fall this evening, he denies any preceding symptoms concerning for sepsis, denies any recent fevers, denies any recent illness otherwise since his discharge from the hospital. Lab work shows a leukocytosis of 15.78, hemoglobin is stable at 12.6, platelet count is normal, INR is therapeutic at 2.6. CMP shows chronic kidney disease with creatinine of 7.72 without critical electrolyte abnormalities. Potassium is normal. Troponin is elevated at 43.8 which is just slightly above the patient's baseline. Patient continues to deny any chest pain or 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 Procalcitonin is low at 0.38. Patient's tachycardia continued despite IV fluids although his blood pressure did uptrend into the 90s systolic. Given this I did initiate the patient on amiodarone bolus and drip. This did eventually break his arrhythmia and his heart rate became well-controlled into the 80s with blood pressure stabilized at 116/76. Patient did have some bright red blood when his depends were changed. He denies any recent large-volume lower GI bleeding since his discharge from the hospital on my assessment. I discussed all of the above findings with the patient and his son at the bedside. Given his presenting vital signs with leukocytosis, blood cultures were drawn. Chest x-ray does not show any obvious pneumonia. At this time I have no obvious source for infection and his hypotension may have been secondary to arrhythmia therefore will defer antibiotics at this time. Patient is afebrile and otherwise hemodynamically stable on my reassessment. Given his multiple comorbidities and recent admission in addition to his presenting vital signs I do feel that he should be admitted for observation. He remains on amiodarone drip prior to my admission. His presentation was discussed with the on-call [facility] hospitalist, Dr. Snow, and the patient was placed for admission in stable condition. Consultants/Discussions held with other healthcare providers: -Hospitalist, Dr. Snow Disposition discussion held by myself with: -Patient and patient's son at the bedside * CRITICAL CARE TIME: ( 44 ) minutes -Stabilization of tachyarrhythmia/atrial fibrillation with RVR with presenting hypotension requiring amiodarone bolus and drip, interpretation of multiple EKGs and diagnostic studies. Time spent at the bedside. Discussion with other physicians and arrangement of admission. Diagnosis: 1. Atrial fibrillation with RVR, acute 2. Leukocytosis, acute 3. Anemia, chronic 4. Elevated high-sensitivity troponin, acute 5. Episodic generalized weakness, acute, transient, nonspecific Disposition: Admission Stone Osborn DO Emergency Medicine Past Med/Surg History Problem List (Updated 04/22/24 @ 01:50 by Stone Osborn DO) Atrial fibrillation with RVR (Acute) Anticoagulant long-term use (Acute) Bright red rectal bleeding (Acute) Bifascicular block Hypertrophic cardiomyopathy Atrial flutter, paroxysmal Acute dyspnea (Acute) Atrial fibrillation with rapid ventricular response Bilateral pulmonary embolism (Acute) Bilateral pulmonary embolism Encounter for pre-operative examination Hyperkalemia Weakness (Acute) Hyperkalemia (Acute) Lab test negative for COVID-19 virus (Acute) Prostate cancer s/p prostatectomy Tobacco use Quit 03/2023 HTN (hypertension) HLD (hyperlipidemia) CKD (chronic kidney disease), stage V (Acute) Medical History (Updated 04/22/24 @ 01:50 by Stone Osborn DO) ESRD on peritoneal dialysis Renal cyst 3.9 cm cystic lesion-L Paroxysmal A-fib listed in [facility] records CAD (coronary artery disease) PVD (peripheral vascular disease) Dysphagia Anemia Pulmonary nodule MGUS (monoclonal gammopathy of unknown significance) follows with [facility] heme/onc LBBB (left bundle branch block) Hearing deficit Surgical History History of appendectomy History of tooth extraction all teeth removed History of bilateral cataract extraction History of prostatectomy Family History Father Diabetes Other No family history of adverse response to anesthesia Social History Smoking Status: Former smoker Tobacco Type: Cigars Second Hand Exposure: No; Do You Dip or Chew Tobacco: No; Hx Alcohol Use: Yes Alcohol type: beer and wine Hx Substance Use: No Preferred Language: Wolof Communication Ability: Effective Yarder Puncher Required: No Beliefs That Will Affect Care: None Current Living Situation: Alone Current Living Situation Comment: Patient lives alone but ex- and son check on him daily and assist pt Feels Safe at Home: Yes Assistive Devices: Walker Allergies Allergies Allergy/AdvReac Type Severity Reaction Status Date / Time No Known Allergies Allergy Verified 04/13/24 02:01 Home Meds Home Medications Medication Instructions Recorded Confirmed docusate sodium 100 mg capsule 100 mg PO BID 10/13/23 04/21/24 (Stool Softener) V-8 Low Sodium 1 can PO QAM 04/13/24 04/21/24 amiodarone 100 mg tablet 100 mg PO QAM 04/13/24 04/21/24 carvedilol 6.25 mg tablet 3.125 mg PO QPM 04/13/24 04/21/24 cholecalciferol (vitamin D3) 50 50 mcg PO AMPM 04/13/24 04/21/24 mcg (2,000 unit) tablet (Vitamin D3) polyethylene glycol 3350 17 8.5 g PO QAM 04/13/24 04/21/24 gram/dose oral powder (Miralax) vitamin B complex-vitamin C-folic 1 tab PO QAM 04/13/24 04/21/24 acid 0.8 mg tablet (Renal-Igor) warfarin 5 mg tablet 2.5 mg PO QPM 04/13/24 04/21/24 Results & Data (ED) Vital Signs Vital Signs - 24 hr 04/21/24 22:30 04/21/24 22:34 04/21/24 22:36 Temperature 36.5 C Temperature Source Axillary Pulse Rate 161 H 142 H Pulse Rate [Left Apical] Pulse Rate from SpO2 Sensor Respiratory Rate 26 H Respiratory Effort / Characteristics Non-Labored Spontaneous Respiratory Depth Normal Respiratory Pattern Regular Blood Pressure 95/65 L Blood Pressure [Right Arm] 85/65 L Blood Pressure Mean 75 Blood Pressure Mean [Right Arm] 71 Blood Pressure Position [Right Arm] Pulse Oximetry 92 Oxygen Delivery Method Room Air Sepsis Recent Fever Within 48 Hours No Sepsis New/Unexplained Change in Mental Status N/A Sepsis Action Taken by Nursing No Action Required 04/21/24 22:55 04/21/24 22:55 04/21/24 22:55 Temperature Temperature Source Pulse Rate Pulse Rate [Left Apical] 141 H Pulse Rate from SpO2 Sensor Respiratory Rate 17 Respiratory Effort / Characteristics Non-Labored Spontaneous Respiratory Depth Normal Respiratory Pattern Regular Blood Pressure 107/70 107/70 Blood Pressure [Right Arm] 107/70 Blood Pressure Mean 80 80 Blood Pressure Mean [Right Arm] 82 Blood Pressure Position [Right Arm] Semi-fowlers Pulse Oximetry 96 Oxygen Delivery Method Room Air Sepsis Recent Fever Within 48 Hours Sepsis New/Unexplained Change in Mental Status Sepsis Action Taken by Nursing 04/21/24 23:05 04/21/24 23:05 04/21/24 23:11 Temperature Temperature Source Pulse Rate Pulse Rate [Left Apical] 140 H Pulse Rate from SpO2 Sensor Respiratory Rate 18 Respiratory Effort / Characteristics Non-Labored Spontaneous Respiratory Depth Normal Respiratory Pattern Regular Blood Pressure 118/77 Blood Pressure [Right Arm] 118/77 Blood Pressure Mean 88 Blood Pressure Mean [Right Arm] 90 Blood Pressure Position [Right Arm] Semi-fowlers Pulse Oximetry 98 Oxygen Delivery Method Room Air Sepsis Recent Fever Within 48 Hours Sepsis New/Unexplained Change in Mental Status Sepsis Action Taken by Nursing 04/21/24 23:12 04/21/24 23:15 04/21/24 23:36 Temperature Temperature Source Pulse Rate 148 H 136 H 134 H Pulse Rate [Left Apical] Pulse Rate from SpO2 Sensor 134 H Respiratory Rate 24 17 19 Respiratory Effort / Characteristics Respiratory Depth Respiratory Pattern Blood Pressure 101/78 97/81 L Blood Pressure [Right Arm] Blood Pressure Mean 85 86 Blood Pressure Mean [Right Arm] Blood Pressure Position [Right Arm] Pulse Oximetry 92 95 96 Oxygen Delivery Method Room Air Room Air Room Air Sepsis Recent Fever Within 48 Hours Sepsis New/Unexplained Change in Mental Status Sepsis Action Taken by Nursing 04/21/24 23:49 04/22/24 00:07 04/22/24 00:33 Temperature Temperature Source Pulse Rate 87 Pulse Rate [Left Apical] 91 H Pulse Rate from SpO2 Sensor 87 Respiratory Rate 24 19 Respiratory Effort / Characteristics Non-Labored Spontaneous Respiratory Depth Normal Respiratory Pattern Regular Blood Pressure 118/72 Blood Pressure [Right Arm] 104/73 Blood Pressure Mean 87 Blood Pressure Mean [Right Arm] 83 Blood Pressure Position [Right Arm] Sitting Pulse Oximetry 96 96 96 Oxygen Delivery Method Room Air Room Air Room Air Sepsis Recent Fever Within 48 Hours Sepsis New/Unexplained Change in Mental Status Sepsis Action Taken by Nursing 04/22/24 01:00 04/22/24 01:15 Temperature Temperature Source Pulse Rate 85 84 Pulse Rate [Left Apical] Pulse Rate from SpO2 Sensor 86 84 Respiratory Rate 25 H 17 Respiratory Effort / Characteristics Respiratory Depth Respiratory Pattern Blood Pressure 110/69 119/77 Blood Pressure [Right Arm] Blood Pressure Mean 82 91 Blood Pressure Mean [Right Arm] Blood Pressure Position [Right Arm] Pulse Oximetry 94 96 Oxygen Delivery Method Room Air Room Air Sepsis Recent Fever Within 48 Hours Sepsis New/Unexplained Change in Mental Status Sepsis Action Taken by Nursing Laboratory Data 04/21/24 22:45 04/21/24 22:45 Lab Results 04/21/24 04/21/24 04/21/24 Range/Units 22:45 22:46 22:52 WBC 15.78 H (4.8-10.8) K/ul RBC 4.28 L (4.70-6.10) M/uL Hgb 12.6 L (14.0-18.0) g/dl POC Hgb 12.9 L (14.0-18.0) g/dl Hct 38.6 L (42.0-52.0) % POC Hct 38 L (42-52) % MCV 90.2 (80.0-100.0) fL MCH 29.4 (25.0-34.0) pg MCHC 32.6 (32.0-36.0) g/dL RDW Std Deviation 51.2 H (36.4-46.3) fL RDW Coeff of Maureen 15.7 H (11.5-14.5) % Plt Count 280 (130-400) K/uL MPV 10.4 (9.4-12.4) fL Immature Gran % (Auto) 0.7 % Neut % (Auto) 83.2 % Lymph % (Auto) 6.5 % Smith % (Auto) 7.3 % Eos % (Auto) 1.7 % Baso % (Auto) 0.6 % Neut # (Auto) 13.12 H (1.40-6.50) K/uL Lymph # (Auto) 1.03 L (1.20-3.40) K/uL Smith # (Auto) 1.15 H (0.11-0.59) K/uL Eos # (Auto) 0.27 (0.00-0.50) K/uL Baso # (Auto) 0.10 (0.00-0.20) K/uL Immature Gran # (Auto) 0.11 (0.01-0.20) K/uL PT 26.0 H (9.0-12.0) Seconds INR 2.6 H (0.9-1.1) POC Sodium 138 (135-144) mmol/L Sodium 138 (136-145) mmol/L POC Potassium 4.4 (3.3-5.0) mmol/L Potassium 4.4 (3.5-5.1) mmol/L POC Chloride 101 (101-112) mmol/L Chloride 99 (98-107) mmol/L Carbon Dioxide 25 (21-32) mmol/L POC Total CO2 24 (24-31) mmol/L Anion Gap 14 H (3-11) POC Anion Gap 18.0 (16-25) mmol/L POC BUN 36 H (7-18) mg/dl BUN 40 H (6-23) mg/dl Creatinine 7.72 H* (0.6-1.4) mg/dl POC Creatinine 8.3 H* (0.6-1.3) mg/dl Est Cr Clr Drug Dosing 8.9 ml/min Est GFR ( Amer) 7.1 ml/min Est GFR (Non-Af Amer) 6.1 ml/min BUN/Creatinine Ratio 5.2 L (10-20) Glucose 118 H (70-99(Fasting)) mg/dl POC Glucose 107 H (70-99) mg/dl POC Glucose (other) 123 H (70-99) mg/dl Calcium 8.8 (8.6-10.3) mg/dl POC Ioniz Calcium Edie 1.05 L (1.12-1.32) mmol/l Magnesium 1.6 L (1.7-2.4) mg/dl Total Bilirubin 0.6 (0.2-1.0) mg/dl AST 41 H (13-39) U/L ALT 48 (7-52) U/L Alkaline Phosphatase 64 (34-104) U/L Troponin I High Sens 43.8 H (0-20) pg/ml Total Protein 6.2 (6.0-8.3) gm/dl Albumin 3.3 L (3.4-5.0) gm/dl Globulin 2.9 (2.5-4.0) gm/dl Albumin/Globulin Ratio 1.1 (0.9-2) Lipase 60 (11-82) U/L Procalcitonin 0.38 (0-0.5) ng/ml Blood Type Antibody Screen 04/22/24 04/22/24 Range/Units 00:07 00:40 WBC (4.8-10.8) K/ul RBC (4.70-6.10) M/uL Hgb (14.0-18.0) g/dl POC Hgb (14.0-18.0) g/dl Hct (42.0-52.0) % POC Hct (42-52) % MCV (80.0-100.0) fL MCH (25.0-34.0) pg MCHC (32.0-36.0) g/dL RDW Std Deviation (36.4-46.3) fL RDW Coeff of Maureen (11.5-14.5) % Plt Count (130-400) K/uL MPV (9.4-12.4) fL Immature Gran % (Auto) % Neut % (Auto) % Lymph % (Auto) % Smith % (Auto) % Eos % (Auto) % Baso % (Auto) % Neut # (Auto) (1.40-6.50) K/uL Lymph # (Auto) (1.20-3.40) K/uL Smith # (Auto) (0.11-0.59) K/uL Eos # (Auto) (0.00-0.50) K/uL Baso # (Auto) (0.00-0.20) K/uL Immature Gran # (Auto) (0.01-0.20) K/uL PT (9.0-12.0) Seconds INR (0.9-1.1) POC Sodium (135-144) mmol/L Sodium (136-145) mmol/L POC Potassium (3.3-5.0) mmol/L Potassium (3.5-5.1) mmol/L POC Chloride (101-112) mmol/L Chloride (98-107) mmol/L Carbon Dioxide (21-32) mmol/L POC Total CO2 (24-31) mmol/L Anion Gap (3-11) POC Anion Gap (16-25) mmol/L POC BUN (7-18) mg/dl BUN (6-23) mg/dl Creatinine (0.6-1.4) mg/dl POC Creatinine (0.6-1.3) mg/dl Est Cr Clr Drug Dosing ml/min Est GFR ( Amer) ml/min Est GFR (Non-Af Amer) ml/min BUN/Creatinine Ratio (10-20) Glucose (70-99(Fasting)) mg/dl POC Glucose (70-99) mg/dl POC Glucose (other) (70-99) mg/dl Calcium (8.6-10.3) mg/dl POC Ioniz Calcium Edie (1.12-1.32) mmol/l Magnesium (1.7-2.4) mg/dl Total Bilirubin (0.2-1.0) mg/dl AST (13-39) U/L ALT (7-52) U/L Alkaline Phosphatase (34-104) U/L Troponin I High Sens 169.3 H* D (0-20) pg/ml Total Protein (6.0-8.3) gm/dl Albumin (3.4-5.0) gm/dl Globulin (2.5-4.0) gm/dl Albumin/Globulin Ratio (0.9-2) Lipase (11-82) U/L Procalcitonin (0-0.5) ng/ml Blood Type B Positive Antibody Screen NEGATIVE Administered Medications Amiodarone HCl/Dextrose (Nexterone / D5w) 360 mg in 200 mls @ 33.333 mls/hr IV ONE ONE Stop: 04/22/24 05:06 Last Admin: 04/21/24 23:07 Dose: 1 mg/min, 33.3 mls/hr Documented By: DMCece Co-signed By: TAMY Sodium Chloride (Nss) 1,000 mls @ 200 mls/hr IV .Q5H ONE Stop: 04/22/24 04:37 Last Admin: 04/22/24 00:05 Dose: 200 mls/hr Documented By: Magnesium Sulfate/Dextrose (Magnesium Sulfate / D5w) 1 gm in 100 mls @ 50 mls/hr IV ONE ONE Stop: 04/22/24 03:06 Last Admin: 04/22/24 01:34 Dose: 50 mls/hr Documented By: Discontinued Medications Amiodarone HCl (Amiodarone Iv Bolus & Drip) 1 each IV NOW STA; Protocol Stop: 04/21/24 22:58 Last Admin: 04/21/24 23:08 Dose: Not Given Documented By: CHU Sodium Chloride (Nss) 500 mls @ 999 mls/hr IV .Q31M STA Stop: 04/21/24 23:01 Last Infusion: 04/21/24 23:10 Dose: Infused Documented By: Admin: 04/21/24 22:50 Dose: 999 mls/hr Documented By: CHU Amiodarone HCl/Dextrose (Nexterone / D5w) 150 mg in 100 mls @ 600 mls/hr IV NOW STA Stop: 04/21/24 23:06 Last Infusion: 04/21/24 23:55 Dose: Infused Documented By: TAMY Co-signed By: Admin: 04/21/24 23:07 Dose: 600 mls/hr Documented By: CHU Co-signed By: TAMY Miscellaneous (Stat Iv Infusion Titration Per Protocol) 1 each N/A NOW STA Stop: 04/21/24 22:58 Last Admin: 04/21/24 23:08 Dose: Not Given Documented By: CHU Discharge Plan Visit Data Chief Complaint: Weakness Stated Complaint: WEAKNESS, HYPOTENSION ED Provider: Stone Osborn Discharge Problem: Atrial fibrillation with RVR Forms Stand Alone Forms: My [facility] Prescriptions Prescriptions: No Action docusate sodium [Stool Softener] 100 mg Capsule 100 mg PO BID carvedilol 6.25 mg Tablet 3.125 mg PO QPM Rx Instructions: must administer with a meal/food amiodarone 100 mg Tablet 100 mg PO QAM Renal-Igor 0.8 mg Tablet 1 tab PO QAM cholecalciferol (vitamin D3) [Vitamin D3] 50 mcg (2,000 unit) Tablet 50 mcg PO AMPM warfarin 5 mg tablet 2.5 mg PO QPM Hold Instructions: Resume on 04/19/24. Wait for instructions from Coumadin clinic tomorrow before restarting Coumadin Rx Instructions: NEXT DOSAGE CHANGE DEPENDS ON NEXT INR polyethylene glycol 3350 [Miralax] 17 gram/dose Powder 8.5 g PO QAM V-8 Low Sodium 1 can PO QAM Rx Instructions: drinks 1 5.5 fluid ounces to obtain 600 mg of potassium pt can not tolerate oral capsules of potassium Referrals Referrals: [facility] [Primary Care Provider] -
[2024-04-21] MEDS: SODIUM CHLORIDE 0.9% 500 ML IV STA (22:50)
[2024-04-21] MEDS ORDERED: 0.2 MICRON FILTER SET 1 EACH IV STA (22:57)
[2024-04-21 23:06] LABS: iSTAT Creatinine 8.3 mg/dl (0.6-1.3); iSTAT Hemoglobin 12.9 g/dl (14.0-18.0); iSTAT Ionized Calcium 1.05 mmol/l (1.12-1.32); iSTAT Potassium 4.4 mmol/L (3.3-5.0)
[2024-04-21] MEDS: AMIODARONE / D5W 360 MG/200 ML BAG IV ONE (23:07)
[2024-04-21] MEDS: AMIODARONE / D5W 150 MG/100 ML BAG IV STA (23:07)
[2024-04-21] MEDS: AMIODARONE IV BOLUS & DRIP IV STA (23:08)
[2024-04-21] MEDS: STAT IV Infusion **Titration per Protocol STA (23:08)
[2024-04-21 23:14] LABS: Basophils % (auto) 0.6 %; Eosinophils # (auto) 0.27 K/uL (0.00-0.50); Eosinophils % (auto) 1.7 %; Hematocrit (blood only) 38.6 % (42.0-52.0); Hemoglobin 12.6 g/dl (14.0-18.0); Immature Granulocytes # (auto) 0.11 K/uL (0.01-0.20); Immature Granulocytes % (auto) 0.7 %; Lymphocytes # (auto) 1.03 K/uL (1.20-3.40); Lymphocytes % (auto) 6.5 %; Mean Corpuscular Hemoglobin 29.4 pg (25.0-34.0); Mean Corpuscular Hgb Conc 32.6 g/dL (32.0-36.0); Mean Corpuscular Volume 90.2 fL (80.0-100.0); Mean Platelet Volume 10.4 fL (9.4-12.4); Monocytes # (auto) 1.15 K/uL (0.11-0.59); Monocytes % (auto) 7.3 %; Neutrophils # (auto) 13.12 K/uL (1.40-6.50); Neutrophils % (auto) 83.2 %; Platelet Count 280 K/uL (130-400); RDW Coefficient of Variation 15.7 % (11.5-14.5); RDW Standard Deviation 51.2 fL (36.4-46.3); Red Blood Count 4.28 M/uL (4.70-6.10); White Blood Count 15.78 K/ul (4.8-10.8)
[2024-04-21 23:36] LABS: Albumin Globulin Ratio 1.1 (0.9-2); Albumin Level 3.3 gm/dl (3.4-5.0); BUN Creatinine Ratio 5.2 (10-20); Bilirubin,Total 0.6 mg/dl (0.2-1.0); Calcium 8.8 mg/dl (8.6-10.3); Creatinine Clr Calc Pharmacy 8.9 ml/min; Est GFR (African American) 7.1 ml/min; Est GFR (Non-African American) 6.1 ml/min; Globulin 2.9 gm/dl (2.5-4.0); Magnesium 1.6 mg/dl (1.7-2.4); Potassium 4.4 mmol/L (3.5-5.1); Total Protein 6.2 gm/dl (6.0-8.3)
[2024-04-21 23:41] LABS: Troponin I High Sensitivity 43.8 pg/ml (0-20)
[2024-04-21 23:47] LABS: INR 2.6 (0.9-1.1)
[2024-04-22] MEDS: SODIUM CHLORIDE 0.9% 1,000 ML IV ONE (00:05)
[2024-04-22] MEDS: MAGNESIUM SULFATE / D5W 1 GM/100 ML BAG IV ONE (01:34)
[2024-04-22 01:36] LABS: Troponin I High Sensitivity 169.3 pg/ml (0-20)
--- NOTE | 2024-04-22 03:58 | History & Physical Report ---
Date of Service April 22, 2024 Assessment & Plan (1) Hypotension: Plan: Secondary to rapid A-fib secondary to cough symptoms, possible viral illness, possible deconditioning Troponin elevation secondary to above hx PE/A-fib on Coumadin, INR therapeutic hx CAD/PVD as per records ESRD on PD prostate cancer status post surgery chronic anemia, hemoglobin at baseline Hyperglycemia rule out DM past tobacco abuse. Admit to PCU Continue IV amiodarone Hold Coreg for now Cardiology consult Re: Rapid A-fib, hypotension Respiratory BioFire test, CT chest Re: Cough symptoms Follow troponin Nephrology consult Re: Peritoneal dialysis management Check hemoglobin A1c PT OT eval once medically stable DVT prophylaxis. Coumadin INR goal between 2 and 3 Full code Patient's son requesting updates providers. Mr. Alfaro Samson, contact #[phone]. Text document was generated using [employer] voice recognition software. It may contain grammatical or spelling errors. Kindly contact undersigned for clarification of any documentation item in question. History of Present Illness Chief Complaint: Weakness, fall Primary Care Provider: [facility] History obtained from patient and records. Medical history significant for PE/A-fib on Coumadin, hypertrophic cardiomyopathy, hypertension, CAD, PVD, hypertension, ESRD on PD, prostate cancer status post surgery, MGUS, chronic anemia (baseline hemoglobin 10-11), past tobacco abuse. Recent confinement April 13 to 2023 for LGIB. Diverticulosis, internal hemorrhoids and polyps on colonoscopy. Patient Coumadin resumed on discharge. Patient increasingly weak at home the last few days. Cough symptoms productive of clear sputum. Not sure about sick contacts. Denies aspiration or choking episodes. Fair appetite. Patient denies chest pain, SOB, abdominal pain, GI bleed. Patient fell at home yesterday after missing a step from weakness. Had to crawl to his bed. Son checked on him. SBP noted to be 70s at home. EMS called by patient's son. Patient noted to be in rapid A-fib heart rate 140s. IV amiodarone initiated at the ER. 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5 g PO QAM 04/13/24 04/21/24 History gram/dose oral powder (Miralax) vitamin B complex-vitamin C-folic 1 tab PO QAM 04/13/24 04/21/24 History acid 0.8 mg tablet (Renal-Igor) warfarin 5 mg tablet 2.5 mg PO QPM 04/13/24 04/21/24 History Past Med/Surg History Problem List (Updated 04/22/24 @ 10:18 by Nakul Gonzalez DO) Pneumoperitoneum Hypothyroid Elevated troponin I level Hypotension Atrial flutter with rapid ventricular response Hypotension Atrial fibrillation with RVR (Acute) Anticoagulant long-term use (Acute) Bright red rectal bleeding (Acute) Bifascicular block Hypertrophic cardiomyopathy Atrial flutter, paroxysmal Acute dyspnea (Acute) Atrial fibrillation with rapid ventricular response Bilateral pulmonary embolism (Acute) Bilateral pulmonary embolism Encounter for pre-operative examination Hyperkalemia Weakness (Acute) Hyperkalemia (Acute) Lab test negative for COVID-19 virus (Acute) Prostate cancer s/p prostatectomy Tobacco use Quit 03/2023 HTN (hypertension) HLD (hyperlipidemia) CKD (chronic kidney disease), stage V (Acute) Medical History ESRD on peritoneal dialysis Renal cyst 3.9 cm cystic lesion-L Paroxysmal A-fib listed in [facility] records CAD (coronary artery disease) PVD (peripheral vascular disease) Dysphagia Anemia Pulmonary nodule MGUS (monoclonal gammopathy of unknown significance) follows with S heme/onc LBBB (left bundle branch block) Hearing deficit Surgical History History of appendectomy History of tooth extraction all teeth removed History of bilateral cataract extraction History of prostatectomy Family History Father Diabetes Other No family history of adverse response to anesthesia Social History Smoking Status: Former smoker Tobacco Type: Cigarettes Second Hand Exposure: No; Do You Dip or Chew Tobacco: No; Hx Alcohol Use: Yes Alcohol type: wine Hx Substance Use: No Preferred Language: Guamanian Communication Ability: Effective Manager Non Profit Required: No Beliefs That Will Affect Care: None Current Living Situation: Alone Current Living Situation Comment: in trailer alone Other Information That Helps Us Care for You: No Feels Safe at Home: Yes Safety Concerns: Feels Safe At This Time Assistive Devices: Cane, Denture - Upper, Denture - Lower, Hearing Aid - Bilateral and Walker Review of Systems Review of Systems: As per HPI, all other systems reviewed and negative Physical Exam Physical Exam: GENERAL: Comfortable, pleasant, hard of hearing, episodic dry coughing, hard of hearing, no respiratory distress SKIN: Pallor, warm HEENT: Pale palpebral conjunctivae, no ptosis, dry buccal mucosa NECK : Supple, no tenderness CHEST : Decreased breath sounds, scattered expiratory wheezes, no tenderness HEART : RRR, systolic murmur ABDOMEN: Some distention, PD port noted EXTREMITIES : Minima LE swelling no LE tenderness, no other conspicuous deformities noted NEUROLOGIC : Coherent, no facial asymmetry, slightly hard of hearing, no other gross focality Results & Data Results & Data Vital Signs (Past 12 Hours) Vital Signs Temp Pulse Pulse Resp BP BP Pulse Ox 04/22/24 02:15 84 20 90/63 L 95 04/22/24 02:15 81 04/22/24 01:45 82 23 116/76 96 04/22/24 01:15 84 17 119/77 96 04/22/24 01:00 85 25 H 110/69 94 04/22/24 00:33 87 19 118/72 96 04/22/24 00:07 91 H 24 104/73 96 04/21/24 23:49 96 04/21/24 23:36 134 H 19 97/81 L 96 04/21/24 23:15 136 H 17 101/78 95 04/21/24 23:12 148 H 24 92 04/21/24 23:11 140 H 18 98 04/21/24 23:05 118/77 04/21/24 23:05 118/77 04/21/24 22:55 107/70 04/21/24 22:55 107/70 04/21/24 22:55 141 H 17 107/70 96 04/21/24 22:36 36.5 C 142 H 26 H 95/65 L 92 04/21/24 22:34 161 H 04/21/24 22:30 85/65 L O2 Del Method 04/22/24 02:15 Room Air 04/22/24 02:15 04/22/24 01:45 Room Air 04/22/24 01:15 Room Air 04/22/24 01:00 Room Air 04/22/24 00:33 Room Air 04/22/24 00:07 Room Air 04/21/24 23:49 Room Air 04/21/24 23:36 Room Air 04/21/24 23:15 Room Air 04/21/24 23:12 Room Air 04/21/24 23:11 Room Air 04/21/24 23:05 04/21/24 23:05 04/21/24 22:55 04/21/24 22:55 04/21/24 22:55 Room Air 04/21/24 22:36 Room Air 04/21/24 22:34 04/21/24 22:30 Laboratory Results Laboratory Results WBC 15.78 K/ul (4.8-10.8) H 04/21/24 22:45 RBC 4.28 M/uL (4.70-6.10) L 04/21/24 22:45 Hgb 12.6 g/dl (14.0-18.0) L 04/21/24 22:45 POC Hgb 12.9 g/dl (14.0-18.0) L 04/21/24 22:52 Hct 38.6 % (42.0-52.0) L 04/21/24 22:45 POC Hct 38 % (42-52) L 04/21/24 22:52 MCV 90.2 fL (80.0-100.0) 04/21/24 22:45 MCH 29.4 pg (25.0-34.0) 04/21/24 22:45 MCHC 32.6 g/dL (32.0-36.0) 04/21/24 22:45 RDW Std Deviation 51.2 fL (36.4-46.3) H 04/21/24 22:45 RDW Coeff of Maureen 15.7 % (11.5-14.5) H 04/21/24 22:45 Plt Count 280 K/uL (130-400) 04/21/24 22:45 MPV 10.4 fL (9.4-12.4) 04/21/24 22:45 Immature Gran % (Auto) 0.7 % 04/21/24 22:45 Neut % (Auto) 83.2 % 04/21/24 22:45 Lymph % (Auto) 6.5 % 04/21/24 22:45 Shasta % (Auto) 7.3 % 04/21/24 22:45 Eos % (Auto) 1.7 % 04/21/24 22:45 Baso % (Auto) 0.6 % 04/21/24 22:45 Neut # (Auto) 13.12 K/uL (1.40-6.50) H 04/21/24 22:45 Lymph # (Auto) 1.03 K/uL (1.20-3.40) L 04/21/24 22:45 Shasta # (Auto) 1.15 K/uL (0.11-0.59) H 04/21/24 22:45 Eos # (Auto) 0.27 K/uL (0.00-0.50) 04/21/24 22:45 Baso # (Auto) 0.10 K/uL (0.00-0.20) 04/21/24 22:45 Immature Gran # (Auto) 0.11 K/uL (0.01-0.20) 04/21/24 22:45 PT 26.0 Seconds (9.0-12.0) H 04/21/24 22:45 INR 2.6 (0.9-1.1) H 04/21/24 22:45 POC Sodium 138 mmol/L (135-144) 04/21/24 22:52 Sodium 138 mmol/L (136-145) 04/21/24 22:45 POC Potassium 4.4 mmol/L (3.3-5.0) 04/21/24 22:52 Potassium 4.4 mmol/L (3.5-5.1) 04/21/24 22:45 POC Chloride 101 mmol/L (101-112) 04/21/24 22:52 Chloride 99 mmol/L (98-107) 04/21/24 22:45 Carbon Dioxide 25 mmol/L (21-32) 04/21/24 22:45 POC Total CO2 24 mmol/L (24-31) 04/21/24 22:52 Anion Gap 14 (3-11) H 04/21/24 22:45 POC Anion Gap 18.0 mmol/L (16-25) 04/21/24 22:52 POC BUN 36 mg/dl (7-18) H 04/21/24 22:52 BUN 40 mg/dl (6-23) H 04/21/24 22:45 Creatinine 7.72 mg/dl (0.6-1.4) H* 04/21/24 22:45 POC Creatinine 8.3 mg/dl (0.6-1.3) H* 04/21/24 22:52 Est Cr Clr Drug Dosing 8.9 ml/min 04/21/24 22:45 Est GFR ( Amer) 7.1 ml/min 04/21/24 22:45 Est GFR (Non-Af Amer) 6.1 ml/min 04/21/24 22:45 BUN/Creatinine Ratio 5.2 (10-20) L 04/21/24 22:45 Glucose 118 mg/dl (70-99(Fasting)) H 04/21/24 22:45 POC Glucose 107 mg/dl (70-99) H 04/21/24 22:46 POC Glucose (other) 123 mg/dl (70-99) H 04/21/24 22:52 Calcium 8.8 mg/dl (8.6-10.3) 04/21/24 22:45 POC Ioniz Calcium Edie 1.05 mmol/l (1.12-1.32) L 04/21/24 22:52 Magnesium 1.6 mg/dl (1.7-2.4) L 04/21/24 22:45 Total Bilirubin 0.6 mg/dl (0.2-1.0) 04/21/24 22:45 AST 41 U/L (13-39) H 04/21/24 22:45 ALT 48 U/L (7-52) 04/21/24 22:45 Alkaline Phosphatase 64 U/L (34-104) 04/21/24 22:45 Troponin I High Sens 169.3 pg/ml (0-20) H* D 04/22/24 00:40 Total Protein 6.2 gm/dl (6.0-8.3) 04/21/24 22:45 Albumin 3.3 gm/dl (3.4-5.0) L 04/21/24 22:45 Globulin 2.9 gm/dl (2.5-4.0) 04/21/24 22:45 Albumin/Globulin Ratio 1.1 (0.9-2) 04/21/24 22:45 Lipase 60 U/L (11-82) 04/21/24 22:45 Procalcitonin 0.38 ng/ml (0-0.5) 04/21/24 22:45 Blood Type B Positive 04/22/24 00:07 Antibody Screen NEGATIVE 04/22/24 00:07 Diagnostic Findings Chest x-ray as per my interpretation atelectasis, no infiltrate EKG as per my interpretation :Rate 140, wide-complex tachycardia, LAD, LAFB, RBBB, septal infarct,
[2024-04-22] MEDS ORDERED: ACETAMINOPHEN 325 MG TAB PO PRN (04:05)
[2024-04-22] MEDS ORDERED: PROMETHAZINE HCL 6.25 MG in SODIUM CHLORIDE 0.9% 50 ML IV PRN (04:05)
[2024-04-22] MEDS ORDERED: NITROGLYCERIN SL 0.4 MG/TAB TAB SL PRN (05:04)
[2024-04-22 05:08] LABS: Thyroid Stimulating Hormone 6.223 uIu/ml (0.300-4.500)
[2024-04-22] MEDS: LEVALBUTEROL 1.25 MG/3 ML NEB NEB STA (05:08)
[2024-04-22] MEDS: IPRATROPIUM BROMIDE NEB SOLN 0.02% 0.5MG/2.5ML VIAL INH STA (05:08)
[2024-04-22] MEDS: AMIODARONE / D5W 360 MG/200 ML BAG IV SCH (05:15)
[2024-04-22] MEDS: ALBUMIN 25% 25 GM/100 ML VIAL IV ONE (05:17)
[2024-04-22 06:15] LABS: T4 Free Thyroxine 1.46 ng/dl (0.61-1.60)
[2024-04-22 06:16] LABS: Adenovirus PCR Not Detected (NotDetected); Bordetella parapertussis PCR Not Detected (NotDetected); Bordetella pertussis PCR Not Detected (NotDetected); Chlamydia pneumoniae PCR Not Detected (NotDetected); Coronavirus 229E PCR Not Detected (NotDetected); Coronavirus CoV-2 (COVID19)PCR Not Detected (NotDetected); Coronavirus HKU1 PCR Not Detected (NotDetected); Coronavirus NL63 PCR Not Detected (NotDetected); Coronavirus OC43PCR Not Detected (NotDetected); Human Metapneumovirus PCR Not Detected (NotDetected); Influenza A PCR Not Detected (NotDetected); Influenza B PCR Not Detected (NotDetected); Mycoplasma pneumoniae PCR Not Detected (NotDetected); Parainfluenza Virus 1 PCR Not Detected (NotDetected); Parainfluenza Virus 2 PCR Not Detected (NotDetected); Parainfluenza Virus 3 PCR Not Detected (NotDetected); Parainfluenza Virus 4 PCR Not Detected (NotDetected); Respiratory Syncytial VirusPCR Not Detected (NotDetected); Rhinovirus/Enterovirus PCR Not Detected (NotDetected)
[2024-04-22 06:25] LABS: Basophils # (auto) 0.06 K/uL (0.00-0.20); Basophils % (auto) 0.6 %; Eosinophils # (auto) 0.12 K/uL (0.00-0.50); Eosinophils % (auto) 1.2 %; Hematocrit (blood only) 29.8 % (42.0-52.0); Hemoglobin 9.9 g/dl (14.0-18.0); Immature Granulocytes # (auto) 0.06 K/uL (0.01-0.20); Immature Granulocytes % (auto) 0.6 %; Lymphocytes % (auto) 10.6 %; Mean Corpuscular Hemoglobin 29.6 pg (25.0-34.0); Mean Corpuscular Hgb Conc 33.2 g/dL (32.0-36.0); Mean Platelet Volume 10.4 fL (9.4-12.4); Monocytes # (auto) 1.05 K/uL (0.11-0.59); Monocytes % (auto) 10.1 %; Neutrophils # (auto) 8.01 K/uL (1.40-6.50); Neutrophils % (auto) 76.9 %; Platelet Count 234 K/uL (130-400); RDW Coefficient of Variation 15.3 % (11.5-14.5); RDW Standard Deviation 49.8 fL (36.4-46.3); Red Blood Count 3.35 M/uL (4.70-6.10)
[2024-04-22 06:46] LABS: BUN Creatinine Ratio 5.7 (10-20); Calcium 7.7 mg/dl (8.6-10.3); Creatinine Clr Calc Pharmacy 9.3 ml/min; Est GFR (African American) 7.6 ml/min; Est GFR (Non-African American) 6.5 ml/min; Potassium 4.6 mmol/L (3.5-5.1)
[2024-04-22 06:55] LABS: Troponin I High Sensitivity 781.3 pg/ml (0-20)
[2024-04-22 07:00] LABS: INR 2.5 (0.9-1.1); Prothrombin Time 24.7 Seconds (9.0-12.0)
[2024-04-22 07:23] LABS: Estimated Average Glucose 137 mg/dl; Hemoglobin A1C 6.4 % (4.5-5.6)
--- NOTE | 2024-04-22 07:34 | XRay Report ---
XR chest 1V portable CLINICAL HISTORY: Chest pain, nonspecific TECHNIQUE: Single frontal radiograph of the chest was obtained. Comparison: Comparison is made to chest radiograph 10/13/2023 FINDINGS: No lines and tubes are seen. The cardiomediastinal silhouette is stable. Lungs are underinflated but clear. No evidence of pleural effusion or pneumothorax. IMPRESSION: No acute chest disease. ACT 112: Negative or not required by law. Electronically signed by: Ajay Lipscomb M.D. 04/22/2024 7:32 AM
--- NOTE | 2024-04-22 07:38 | CT Scan Report ---
Exam(s): CT CHEST Without Contrast EXAM: CT Chest Without Intravenous Contrast CLINICAL HISTORY: Reason for exam: cough. TECHNIQUE: Axial computed tomography images of the chest without intravenous contrast. CTDI is 23.94 mGy and DLP is 802.8 mGy-cm. Automated exposure control was utilized for the study. A dose lowering technique was utilized adhering to the principles of ALARA. COMPARISON: Pulmonary embolism CT dated october 13 2023 FINDINGS: Limitations: Limited evaluation in the absence of contrast. Lungs: Dependent airspace disease at the lung bases right greater than left. Findings may be due in part to compressive atelectasis, sequela of infection/aspiration changes are suspected given debris within the right mainstem bronchus extending to multiple right lower lobe branches. No mass. Pleural space: Unremarkable. No pneumothorax. No significant effusion. Heart: Coronary artery calcifications. No cardiomegaly. No significant pericardial effusion. Bones/joints: Degenerative changes in the spine. Soft tissues: Unremarkable. Vasculature: Atherosclerosis degenerative changes in the spine. Common trunk of the innominate and left internal carotid artery. Lymph nodes: Unremarkable. No enlarged lymph nodes. Intraperitoneal space: Partially visualized free air within the abdomen with fluid. Recommend correlation with prior surgical history. If there is further concern, consider dedicated imaging. IMPRESSION: 1. Limited evaluation in the absence of contrast. 2. Partially visualized free air within the abdomen with fluid. Recommend correlation with prior surgical history. If there is further concern, consider dedicated imaging. 3. Dependent airspace disease at the lung bases right greater than left. Findings may be due in part to compressive atelectasis, sequela of infection/aspiration changes are suspected given debris within the right mainstem bronchus extending to multiple right lower lobe branches. 4. Other incidental findings as described. Communications: Call Doctor Above results Electronically signed by: Noah Gilbert MD 04/22/24 07:37 AM
--- NOTE | 2024-04-22 08:17 | Cardiology Consultation ---
Date of Consultation April 22, 2024 Assessment & Plan (1) Atrial flutter with rapid ventricular response: (2) Hypertrophic cardiomyopathy: (3) Hypotension: (4) Elevated troponin I level: (5) Bifascicular block: (6) CKD (chronic kidney disease), stage V: (7) Hypothyroid: Plan 78-year-old male admitted due to mechanical fall, paroxysmal atrial fibrillation with rapid ventricular response and hypotension. I suspect atrial flutter provoked by hypovolemia in the setting of chronic, daily peritoneal dialysis and end-stage renal disease. Hypomagnesemia noted on admission. Elevated troponin due to demand ischemia in setting of atrial flutter with rapid ventricular response, end-stage renal disease, and hypotension. Patient converted to sinus rhythm with IV amiodarone. ECG demonstrating bifascicular block with prolonged QT interval. Will discontinue IV amiodarone and continue oral amiodarone at this time. Patient does not tolerate hypovolemia and tachycardia due to hypertrophic cardiomyopathy. Electrophysiology consultation to consider EPS/flutter ablation. Supplement magnesium as per nephrology. Hesitant to titrate beta katerina further with hypotension, underlying conduction disease including right bundle branch block, left anterior fascicular block, and first-degree AV block. Recent hospitalization with lower GI bleed noted. Anemia with hgb 9.9g/dl today (baseline 11.0g/dl). No signs of GI blood loss at this time. Hold warfarin today with repeat INR in AM. I spent a total of 60 minutes on the date of service in preparation, delivery, and documentation of the care provided to this patient, excluding any time spent in the performance of separately billed services. History of Present Illness Reason for Consultation: Rapid A-fib, low blood pressure Requesting Physician: Dr. Frank Snow Attending Physician: Amy Shrestha MD History of Present Illness 78-year-old male with history of paroxysmal atrial flutter, pulmonary embolus, chronic anticoagulation with warfarin, end-stage renal disease on peritoneal lisa lysis and possible hypertrophic cardiomyopathy presented to the ER 04/21/2024 due to mechanical fall. Patient reports feeling weak and fell when attempting to walk up the stairs. When he stood up he felt lightheaded. Son took blood pressure at that time reportedly in the 70s systolic. EMS was summoned patient noted to be tachycardiac with a heart rate in the 140s upon arrival and the systolic blood pressure in the 70s. ECG appears to be atrial flutter with 2-1 conduction and a ventricular rate of 142 bpm. He subsequently converted to sinus rhythm. IV amiodarone infusion initiated by the hospitalist. Reports dizziness and fatigue associated with recent fall. Denies chest discomfort or heaviness. Hypertension documented during atrial flutter with rapid ventricular response. Remains in sinus rhythm since admission. Recently hospitalized in March due to rectal bleeding. Oral anticoagulation continued. Allergies Allergy/AdvReac Type Severity Reaction Status Date / Time No Known Allergies Allergy Verified 04/13/24 02:01 Home Medications Medication Instructions Recorded Confirmed Type docusate sodium 100 mg capsule 100 mg PO BID 10/13/23 04/21/24 History (Stool Softener) V-8 Low Sodium 1 can PO QAM 04/13/24 04/21/24 History amiodarone 100 mg tablet 100 mg PO QAM 04/13/24 04/21/24 History carvedilol 6.25 mg tablet 3.125 mg PO QPM 04/13/24 04/21/24 History cholecalciferol (vitamin D3) 50 50 mcg PO AMPM 04/13/24 04/21/24 History mcg (2,000 unit) tablet (Vitamin D3) polyethylene glycol 3350 17 8.5 g PO QAM 04/13/24 04/21/24 History gram/dose oral powder (Miralax) vitamin B complex-vitamin C-folic 1 tab PO QAM 04/13/24 04/21/24 History acid 0.8 mg tablet (Renal-Igor) warfarin 5 mg tablet 2.5 mg PO QPM 04/13/24 04/21/24 History Patient History Medical History ESRD on peritoneal dialysis Renal cyst 3.9 cm cystic lesion-L Paroxysmal A-fib listed in [facility] records CAD (coronary artery disease) PVD (peripheral vascular disease) Dysphagia Anemia Pulmonary nodule MGUS (monoclonal gammopathy of unknown significance) follows with S heme/onc LBBB (left bundle branch block) Hearing deficit Surgical History History of appendectomy History of tooth extraction all teeth removed History of bilateral cataract extraction History of prostatectomy Family History Father Diabetes Other No family history of adverse response to anesthesia Social History Smoking Status: Former smoker Tobacco Type: Cigarettes Second Hand Exposure: No; Do You Dip or Chew Tobacco: No; Hx Alcohol Use: Yes Alcohol type: wine Hx Substance Use: No Preferred Language: Spanish Communication Ability: Effective Marine Designer Required: No Beliefs That Will Affect Care: None Current Living Situation: Alone Current Living Situation Comment: in trailer alone Other Information That Helps Us Care for You: No Feels Safe at Home: Yes Safety Concerns: Feels Safe At This Time Assistive Devices: Cane, Denture - Upper, Denture - Lower, Hearing Aid - Bilateral and Walker Review of Systems Review of Systems: All systems reviewed & are unremarkable except as noted in Subjective Physical Exam Constitutional: well nourished; no acute distress Respiratory: normal respiratory effort; no respiratory distress, no labored breathing and no retractions Cardiovascular: Rate/Rhythm: regular rate and regular rhythm Heart Sounds: normal S1, normal S2 and + murmur (1/6 systolic ejection murmur) Vessels: radial pulses present; no JVD and no carotid bruit Extremities: + edema (Trace bilateral ankle edema) Gastrointestinal (Abdomen): Inspection/Auscultation: abdomen normal to inspection and normal bowel sounds; abdomen not distended Percussion/Palpat ion: abdomen soft; abdomen nontender, no guarding and abdomen not rigid Neurologic: CN's II-XI intact bilaterally and moves all extremities; no focal motor deficits Results & Data Vital Signs (Past 12 Hours) Vital Signs Temp Pulse Pulse Resp BP BP Pulse Ox 04/22/24 05:32 71 04/22/24 05:31 36.5 C 72 18 123/75 95 04/22/24 05:08 74 16 94 04/22/24 05:00 04/22/24 04:42 04/22/24 04:15 77 18 117/68 94 04/22/24 04:00 126/73 04/22/24 03:45 82 21 117/75 94 04/22/24 03:36 75 17 119/70 93 04/22/24 03:15 77 22 114/68 95 04/22/24 03:00 77 18 119/73 94 04/22/24 02:15 84 20 90/63 L 95 04/22/24 02:15 81 04/22/24 01:45 82 23 116/76 96 04/22/24 01:15 84 17 119/77 96 04/22/24 01:00 85 25 H 110/69 94 04/22/24 00:33 87 19 118/72 96 04/22/24 00:07 91 H 24 104/73 96 04/21/24 23:49 96 04/21/24 23:36 134 H 19 97/81 L 96 04/21/24 23:15 136 H 17 101/78 95 04/21/24 23:12 148 H 24 92 04/21/24 23:11 140 H 18 98 04/21/24 23:05 118/77 04/21/24 23:05 118/77 04/21/24 22:55 107/70 04/21/24 22:55 107/70 04/21/24 22:55 141 H 17 107/70 96 04/21/24 22:36 36.5 C 142 H 26 H 95/65 L 92 04/21/24 22:34 161 H 04/21/24 22:30 85/65 L O2 Del Method 04/22/24 05:32 04/22/24 05:31 Room Air 04/22/24 05:08 Room Air 04/22/24 05:00 Room Air 04/22/24 04:42 Room Air 04/22/24 04:15 04/22/24 04:00 04/22/24 03:45 04/22/24 03:36 04/22/24 03:15 04/22/24 03:00 04/22/24 02:15 Room Air 04/22/24 02:15 04/22/24 01:45 Room Air 04/22/24 01:15 Room Air 04/22/24 01:00 Room Air 04/22/24 00:33 Room Air 04/22/24 00:07 Room Air 04/21/24 23:49 Room Air 04/21/24 23:36 Room Air 04/21/24 23:15 Room Air 04/21/24 23:12 Room Air 04/21/24 23:11 Room Air 04/21/24 23:05 04/21/24 23:05 04/21/24 22:55 07/03/24 22:55 04/21/24 22:55 Room Air 04/21/24 22:36 Room Air 04/21/24 22:34 04/21/24 22:30 Laboratory Results Cardiac Enzymes 04/21/24 04/22/24 04/22/24 Range/Units 22:45 00:40 05:58 AST 41 H (13-39) U/L Troponin I High Sens 43.8 H 169.3 H* D 781.3 H* D (0-20) pg/ml Coagulation 04/21/24 04/22/24 Range/Units 22:45 05:58 PT 26.0 H 24.7 H (9.0-12.0) Seconds CBC 04/21/24 04/22/24 Range/Units 22:45 05:58 WBC 15.78 H 10.40 (4.8-10.8) K/ul RBC 4.28 L 3.35 L (4.70-6.10) M/uL Hgb 12.6 L 9.9 L (14.0-18.0) g/dl Hct 38.6 L 29.8 L (42.0-52.0) % Plt Count 280 234 (130-400) K/uL Neut # (Auto) 13.12 H 8.01 H (1.40-6.50) K/uL Lymph # (Auto) 1.03 L 1.10 L (1.20-3.40) K/uL Nelson # (Auto) 1.15 H 1.05 H (0.11-0.59) K/uL Eos # (Auto) 0.27 0.12 (0.00-0.50) K/uL Baso # (Auto) 0.10 0.06 (0.00-0.20) K/uL Comprehensive Metabolic Panel 04/21/24 04/22/24 Range/Units 22:45 05:58 Sodium 138 137 (136-145) mmol/L Potassium 4.4 4.6 (3.5-5.1) mmol/L Chloride 99 102 (98-107) mmol/L Carbon Dioxide 25 26 (21-32) mmol/L BUN 40 H 42 H (6-23) mg/dl Creatinine 7.72 H* 7.31 H* D (0.6-1.4) mg/dl Glucose 118 H 126 H (70-99(Fasting)) mg/dl Calcium 8.8 7.7 L (8.6-10.3) mg/dl AST 41 H (13-39) U/L ALT 48 (7-52) U/L Alkaline Phosphatase 64 (34-104) U/L Total Protein 6.2 (6.0-8.3) gm/dl Albumin 3.3 L (3.4-5.0) gm/dl Intake and Output 04/21/24 04/22/24 04/22/24 22:59 06:59 14:59 Intake Total 500 / 2400 1900 / 2400 100 / 100 Balance 500 / 2400 1900 / 2400 100 / 100 Intake: IV 500 / 2400 1900 / 2400 100 / 100 Albumin 25% 25 gm In 100 ml @ 100 / 100 50 mls/hr IV ONE ONE Rx#: [id number] Amiodarone / D5w 150 mg In 100 100 / 100 ml @ 600 mls/hr IV NOW STA Rx#: [id number] Amiodarone / D5w 360 mg In 200 200 / 200 ml @ 1 MG/MIN 33.333 mls/hr IV ONE ONE Rx#:[id number] Magnesium Sulfate / D5w 1 gm In 100 / 100 100 ml @ 50 mls/hr IV ONE ONE Rx#:[id number] Sodium Chloride 0.9% 1,000 ml @ 1000 / 1000 200 mls/hr IV .Q5H ONE Rx#: [id number] Sodium Chloride 0.9% 500 ml @ 500 / 500 999 mls/hr IV .Q31M STA Rx#: [id number] Left Antecubital 500 / 500 Other: # Unmeasured Voids 1 Weight 89.9 kg 87.9 kg Weight Measurement Method Built in [facility] Built in [facility] (3) Hypotension Hypotension type: hypotension due to hypovolemia Qualified Code(s): E86.1 - Hypovolemia (7) Hypothyroid Hypothyroidism type: due to medication Qualified Code(s): E03.2 - Hypothyroidism due to medicaments and other exogenous substances
[2024-04-22] MEDS: DOCUSATE SODIUM 100 MG CAP PO SCH (08:34)
--- NOTE | 2024-04-22 08:59 | Nephrology Consultation ---
Date of Consultation April 22, 2024 Assessment & Plan (1) ESRD on peritoneal dialysis: Peritoneal dialysis patient who dialyzes under my care at [facility] with assistance from his ex- and son. Patient unable to perform his own treatments. He missed PD last evening which may along with the heart rhythm issues contribute to his mild and asymptomatic lower extremity swelling. Ensure daily bowel movement Added 1.8 L fluid limit to diet and order that protein shakes do not count towards this limit For tonight we will do 14 hrs of tx > 7 exchanges alternating 1.5% and 2.5% but favoring 1.5% - daily bmp Care coordinated w/ Dr Shrestha re PD plans, hgb trend, no current AC order, and BP/volume status. we are in agreement. (2) Hypotension: Moderate hypotension today, though improving. Maps have been above 65. Systolic blood pressures often in the 90s and 80s even, though most recent 1 in the 110s systolic. Gentle fluid removal with dialysis not aggressive removal despite edema on exam due to this Should improve further as heart rhythms are stabilized (3) Atrial flutter with rapid ventricular response: Has been in sinus rhythm with first-degree block for most of today. Amiodarone as per cardiology and primary service INR 2.5: Defer to primary service and cardiology whether to continue anticoagulation in this patient with history of pulmonary emboli and a fall (4) Acute on chronic anemia: hgb from 12.9 last evening 2300 to 9.9 at 0600 >suggest serial hgbs History of Present Illness Reason for Consultation: esrd on PD Requesting Physician: Dr Snow Attending Physician: Amy Shrestha MD History of Present Illness 78 y/o M whom I am asked to evaluate for ESRD on peritoneal dialysis was admitted early this am after presenting with hypotension at home (SBP in 70s), atrial flutter w/ 2-1 conduction per ECG (EMS noted HR in 140s), and a fall. 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 he was recently admitted here 04/13-04/18 w/ rectal bleeding/hematochezia; colonoscopy that admission remarkable for 3 polyps resected (all adenomata); cecal polyp noted/challenging to retrieve; internal hemorrhoids. Hgb did downtrend but no pRBC required. He has in February and March [facility]. He was started on amiodarone in ER and subsequently converted to sinus rhythm. Remains on amiodarone gtt. ROS remarkable for a cough productive of white sputum since hospital d/c. He fell outside yesterday trying to get into his shed and was unable to get up. He banged his left proximal arm. Managed to crawl back into his trailer and called his son after he was still unable to get up. No fever or chills; no issues with dialysis since arrival home; no nausea vomiting diarrhea or abdominal pain. No chest pain or worsening 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 He does have chronic constipation but tells me he has been moving his bowels daily. He is oliguric at best. Allergies Allergy/AdvReac Type Severity Reaction Status Date / Time No Known Allergies Allergy Verified 04/13/24 02:01 Home Medications Medication Instructions Recorded Confirmed Type docusate sodium 100 mg capsule 100 mg PO BID 10/13/23 04/21/24 History (Stool Softener) V-8 Low Sodium 1 can PO QAM 04/13/24 04/21/24 History amiodarone 100 mg tablet 100 mg PO QAM 04/13/24 04/21/24 History carvedilol 6.25 mg tablet 3.125 mg PO QPM 04/13/24 04/21/24 History cholecalciferol (vitamin D3) 50 50 mcg PO AMPM 04/13/24 04/21/24 History mcg (2,000 unit) tablet (Vitamin D3) polyethylene glycol 3350 17 8.5 g PO QAM 04/13/24 04/21/24 History gram/dose oral powder (Miralax) vitamin B complex-vitamin C-folic 1 tab PO QAM 04/13/24 04/21/24 History acid 0.8 mg tablet (Renal-Igor) warfarin 5 mg tablet 2.5 mg PO QPM 04/13/24 04/21/24 History Patient History Medical History ESRD on peritoneal dialysis Renal cyst 3.9 cm cystic lesion-L Paroxysmal A-fib listed in [facility] records CAD (coronary artery disease) PVD (peripheral vascular disease) Dysphagia Anemia Pulmonary nodule MGUS (monoclonal gammopathy of unknown significance) follows with [facility] heme/onc LBBB (left bundle branch block) Hearing deficit Surgical History History of appendectomy History of tooth extraction all teeth removed History of bilateral cataract extraction History of prostatectomy Family History Father Diabetes Other No family history of adverse response to anesthesia Social History Smoking Status: Former smoker Tobacco Type: Cigarettes Second Hand Exposure: No; Do You Dip or Chew Tobacco: No; Hx Alcohol Use: Yes Alcohol type: wine Hx Substance Use: No Preferred Language: Croatian Communication Ability: Effective Scanning Manager Required: No Beliefs That Will Affect Care: None Current Living Situation: Alone Current Living Situation Comment: in trailer alone Other Information That Helps Us Care for You: No Feels Safe at Home: Yes Safety Concerns: Feels Safe At This Time Assistive Devices: Cane, Denture - Upper, Denture - Lower, Hearing Aid - Bilateral and Walker Review of Systems 2 Review of Systems: All systems reviewed & are unremarkable except as noted in HPI & below Physical Exam 2 Constitutional: well developed (Alert and appropriately interactive), well nourished and cooperative; no acute distress Eyes: EOM intact bilaterally ENMT: Ears: no external ear abnormality Nose: no external nose abnormality Mouth: + dry oral mucous membranes Neck: no nuchal rigidity Respiratory: normal respiratory effort and + cough (Occasional dry cough perhaps more frequent than at previous encounters) Auscultation: + diminished lung sounds Cardiovascular: Rate/Rhythm: regular rate and regular rhythm Extremities: + edema (Bilateral proximal legs 2+ and 1+ pretibial right lower extremity) Gastrointestinal (Abdomen): Inspection/Auscultation: abdomen normal to inspection (PD catheter present) and normal bowel sounds; abdomen not distended Percussion/Palpation: abdomen soft; abdomen nontender Musculoskeletal: Extremities: strength 5/5 throughout Skin: no rashes, warm and dry Neurologic: ivory, fluent speech, no tremor Psychiatric: Orientation: alert and oriented x 3 Speech: normal rate/rhythm/volume of speech Insight: + limited insight (Limited recall) Results & Data Vital Signs (Past 12 Hours) Vital Signs Temp Pulse Pulse Resp BP BP Pulse Ox 04/22/24 07:27 36.5 C 75 18 98/60 L 94 04/22/24 05:32 71 04/22/24 05:31 36.5 C 72 18 123/75 95 04/22/24 05:08 74 16 94 04/22/24 05:00 04/22/24 04:42 04/22/24 04:15 77 18 117/68 94 04/22/24 04:00 126/73 04/22/24 03:45 82 21 117/75 94 04/22/24 03:36 75 17 119/70 93 04/22/24 03:15 77 22 114/68 95 04/22/24 03:00 77 18 119/73 94 04/22/24 02:15 84 20 90/63 L 95 04/22/24 02:15 81 04/22/24 01:45 82 23 116/76 96 04/22/24 01:15 84 17 119/77 96 04/22/24 01:00 85 25 H 110/69 94 04/22/24 00:33 87 19 118/72 96 04/22/24 00:07 91 H 24 104/73 96 04/21/24 23:49 96 04/21/24 23:36 134 H 19 97/81 L 96 04/21/24 23:15 136 H 17 101/78 95 04/21/24 23:12 148 H 24 92 04/21/24 23:11 140 H 18 98 04/21/24 23:05 118/77 04/21/24 23:05 118/77 04/21/24 22:55 107/70 04/21/24 22:55 107/70 04/21/24 22:55 141 H 17 107/70 96 04/21/24 22:36 36.5 C 142 H 26 H 95/65 L 92 04/21/24 22:34 161 H 04/21/24 22:30 85/65 L O2 Del Method 04/22/24 07:27 Room Air 04/22/24 05:32 04/22/24 05:31 Room Air 04/22/24 05:08 Room Air 04/22/24 05:00 Room Air 04/22/24 04:42 Room Air 04/22/24 04:15 04/22/24 04:00 04/22/24 03:45 04/22/24 03:36 04/22/24 03:15 04/22/24 03:00 04/22/24 02:15 Room Air 04/22/24 02:15 04/22/24 01:45 Room Air 04/22/24 01:15 Room Air 04/22/24 01:00 Room Air 04/22/24 00:33 Room Air 04/22/24 00:07 Room Air 04/21/24 23:49 Room Air 04/21/24 23:36 Room Air 04/21/24 23:15 Room Air 04/21/24 23:12 Room Air 04/21/24 23:11 Room Air 04/21/24 23:05 04/21/24 23:05 04/21/24 22:55 04/21/24 22:55 04/21/24 22:55 Room Air 04/21/24 22:36 Room Air 04/21/24 22:34 04/21/24 22:30 Laboratory Results 04/22/24 05:58 04/22/24 05:[address] chest non con 1. Limited evaluation in the absence of contrast. 2. Partially visualized free air within the abdomen with fluid. Recommend correlation with prior surgical history. If there is further concern, consider dedicated imaging. 3. Dependent airspace disease at the lung bases right greater than left. Findings may be due in part to compressive atelectasis, sequela of infection/aspiration changes are suspected given debris within the right mainstem bronchus extending to multiple right lower lobe branches. 4. Other incidental findings as described. cxr no active disease
--- NOTE | 2024-04-22 10:11 | CT Scan Report ---
CT abd pelvis IV con only CLINICAL HISTORY: Eval for trauma TECHNIQUE: Helical axial images of the abdomen and pelvis were obtained and displayed. Automated dose lowering techniques and/or adjustment according to patient size were utilized for this exam. This e xam was performed with intravenous contrast. CT DOSE: 1412.88 mGy.cm COMPARISON: None available at the time of this dictation. FINDINGS: Lower chest: For findings above the diaphragm, please see CT chest performed same day. Liver: Unremarkable. No focal lesions are seen. Gallbladder and biliary tree: No calcified gallstones. Normal caliber wall. No intra- or extrahepatic biliary ductal dilation. Pancreas: Unremarkable, no focal lesions. Spleen: Unremarkable. Adrenals: Unremarkable. Kidneys and ureters: Unremarkable. Bladder: Unremarkable. Reproductive organs: Partial visualization of the prosthesis. A peritoneal catheter is noted. Bowel: Unremarkable. Lymph nodes Retroperitoneal: Unremarkable. Pelvic: Unremarkable. Mesenteric: Unremarkable. Peritoneum: Normal. Vessels: Atherosclerotic calcifications are seen. Abdominal wall: A fat-containing umbilical hernia is seen. Bones: Degenerative changes in the visualized spine. IMPRESSION: 1. No acute abnormalities and in particular no evidence of acute fracture. 2. Additional findings as above. ACT 112: Negative or not required by law. Electronically signed by: Ajay Lipscomb M.D. 04/22/2024 10:08 AM
--- NOTE | 2024-04-22 10:16 | Surgery Consultation ---
Date of Consultation April 22, 2024 Assessment & Plan (1) Pneumoperitoneum: I ordered a CT of the A/P with IV contrast to look for any active bleeding or viscus perforation in the setting of recent fall I personally viewed and interpreted the images, there is still some fluid around the liver and small amount of air without any liver or splenic trauma and no bowel injury Coupled with the fact he had eaten breakfast and has no abdominal pain, this fluid and air is likely from his peritoneal dialysis There is no further workup from a surgical standpoint and will sign off at this time Please call with any questions or concerns History of Present Illness Reason for Consultation: Possible perforated viscus Attending Physician: Amy Shrestha MD History of Present Illness This is a 78-year-old male who came to the ER yesterday after a fall and for atrial fibrillation with rapid ventricular response. He denies any chest pain or abdominal pain has had a longstanding cough. He did have a chest CT that revealed an area of pneumoperitoneum near his liver with some fluid. The patient does have a peritoneal dialysis catheter. He did have dialysis yesterday. He denies any N/V or abdominal pain. He was recently admitted for a lower GI bleed and had a colonoscopy with polypectomy. He states he is very little per rectum at this point. Denies any melena. He tolerated his breakfast this morning without nausea or vomiting or abdominal pain. He take Coumadin for a history of PE as well his Afib. Allergies Allergy/AdvReac Type Severity Reaction Status Date / Time No Known Allergies Allergy Verified 04/13/24 02:01 Home Medications Medication Instructions Recorded Confirmed Type docusate sodium 100 mg capsule 100 mg PO BID 10/13/23 04/21/24 History (Stool Softener) V-8 Low Sodium 1 can PO QAM 04/13/24 04/21/24 History amiodarone 100 mg tablet 100 mg PO QAM 04/13/24 04/21/24 History carvedilol 6.25 mg tablet 3.125 mg PO QPM 04/13/24 04/21/24 History cholecalciferol (vitamin D3) 50 50 mcg PO AMPM 04/13/24 04/21/24 History mcg (2,000 unit) tablet (Vitamin D3) polyethylene glycol 3350 17 8.5 g PO QAM 04/13/24 04/21/24 History gram/dose oral powder (Miralax) vitamin B complex-vitamin C-folic 1 tab PO QAM 04/13/24 04/21/24 History acid 0.8 mg tablet (Renal-Igor) warfarin 5 mg tablet 2.5 mg PO QPM 04/13/24 04/21/24 History Patient History Medical History ESRD on peritoneal dialysis Renal cyst 3.9 cm cystic lesion-L Paroxysmal A-fib listed in [facility] records CAD (coronary artery disease) PVD (peripheral vascular disease) Dysphagia Anemia Pulmonary nodule MGUS (monoclonal gammopathy of unknown significance) follows with [facility] heme/onc LBBB (left bundle branch block) Hearing deficit Surgical History History of appendectomy History of tooth extraction all teeth removed History of bilateral cataract extraction History of prostatectomy Family History Father Diabetes Other No family history of adverse response to anesthesia Social History Smoking Status: Former smoker Tobacco Type: Cigarettes Second Hand Exposure: No; Do You Dip or Chew Tobacco: No; Hx Alcohol Use: Yes Alcohol type: wine Hx Substance Use: No Preferred Language: Niuean Communication Ability: Effective Mathematics Professor Required: No Beliefs That Will Affect Care: None Current Living Situation: Alone Current Living Situation Comment: in trailer alone Other Information That Helps Us Care for You: No Feels Safe at Home: Yes Safety Concerns: Feels Safe At This Time Assistive Devices: Cane, Denture - Upper, Denture - Lower, Hearing Aid - Bilateral and Walker Review of Systems Constitutional: no fever and no chills Eyes: no blind spots, no corrective lenses and no tunnel vision Ear, Nose, Mouth, Throat: no ear pain, no hearing loss and no dysphagia Respiratory: + cough; no dyspnea and no dyspnea on ex ertion Cardiovascular: + palpitations; no chest pain and no dys pnea on exertion Gastrointestinal: + blood in stools; no abdominal pain, no nausea, no vomiting, no constipation, no diarrhea/loose stools and no melena Genitourinary: no dysuria, no difficulty urinating or no nocturia Musculoskeletal: no back pain and no neck pain Integumentary: no acne, no changing lesions, no skin ulcer and no erythema Neurologic: no gait abnormality, no headache(s) and no confusion Psychiatric: no behavioral changes and no depression Hematologic / Lymphatic: no easy bleeding and no easy bruising Takes Coumadin for PE Physical Exam Constitutional: WD/WN, vitals as above Eyes: PERRL, conjunctivae normal, anicteric sclerae ENMT: external ear and nose normal, oropharynx normal Neck: trachea midline, no thyromegaly Respiratory: normal respiratory effort, lungs clear to auscultation Cardiovascular: RRR, no murmur, no edema Gastrointestinal (Abdomen): Inspection/Auscultation: abdomen normal to inspection; abdomen not distended Percussion/Palpation: abdomen soft; abdomen nontender and no guarding PD catheter in place Musculoskeletal: no cyanosis or clubbing, extremities motor strength 5/5 Skin: no rashes, warm and dry Neurologic: PERRL, EOMI, accommodation nl, no face palsy, no dysarthria Psychiatric: A+Ox3, euthymic affect Results & Data Vital Signs (Past 12 Hours) Vital Signs Temp Pulse Pulse Resp BP BP Pulse Ox 04/22/24 07:27 36.5 C 75 18 98/60 L 94 04/22/24 05:32 71 04/22/24 05:31 36.5 C 72 18 123/75 95 04/22/24 05:08 74 16 94 04/22/24 05:00 04/22/24 04:42 04/22/24 04:15 77 18 117/68 94 04/22/24 04:00 126/73 04/22/24 03:45 82 21 117/75 94 04/22/24 03:36 75 17 119/70 93 04/22/24 03:15 77 22 114/68 95 04/22/24 03:00 77 18 119/73 94 04/22/24 02:15 84 20 90/63 L 95 04/22/24 02:15 81 04/22/24 01:45 82 23 116/76 96 04/22/24 01:15 84 17 119/77 96 04/22/24 01:00 85 25 H 110/69 94 04/22/24 00:33 87 19 118/72 96 04/22/24 00:07 91 H 24 104/73 96 04/21/24 23:49 96 04/21/24 23:36 134 H 19 97/81 L 96 04/21/24 23:15 136 H 17 101/78 95 04/21/24 23:12 148 H 24 92 04/21/24 23:11 140 H 18 98 04/21/24 23:05 118/77 04/21/24 23:05 118/77 04/21/24 22:55 107/70 04/21/24 22:55 107/70 04/21/24 22:55 141 H 17 107/70 96 04/21/24 22:36 36.5 C 142 H 26 H 95/65 L 92 04/21/24 22:34 161 H 04/21/24 22:30 85/65 L O2 Del Method 04/22/24 07:27 Room Air 04/22/24 05:32 04/22/24 05:31 Room Air 04/22/24 05:08 Room Air 04/22/24 05:00 Room Air 04/22/24 04:42 Room Air 04/22/24 04:15 04/22/24 04:00 04/22/24 03:45 04/22/24 03:36 04/22/24 03:15 04/22/24 03:00 04/22/24 02:15 Room Air 04/22/24 02:15 04/22/24 01:45 Room Air 04/22/24 01:15 Room Air 04/22/24 01:00 Room Air 04/22/24 00:33 Room Air 04/22/24 00:07 Room Air 04/21/24 23:49 Room Air 04/21/24 23:36 Room Air 04/21/24 23:15 Room Air 04/21/24 23:12 Room Air 04/21/24 23:11 Room Air 04/21/24 23:05 04/21/24 23:05 04/21/24 22:55 04/21/24 22:55 04/21/24 22:55 Room Air 04/21/24 22:36 Room Air 04/21/24 22:34 04/21/24 22:30 PG Care Time/CCT Total # of Minutes Spent Total Time Spent with Patient: Total time spent is greater than 50% in coordination of care (as documented) at patient's floor/unit and/or counseling patient: Coding Level of Care Code 39787 INT INP/OBS CARE MIN Diagnoses Pneumoperitoneum K66.8
[2024-04-22] MEDS: NEPHROCAPS PO SCH (10:50)
[2024-04-22] MEDS: AMIODARONE 200 MG TAB PO SCH (10:50)
--- NOTE | 2024-04-22 12:17 | Electrocardiogram Report ---
Test Reason : Blood Pressure : / mmHG Vent. Rate : 142 BPM Atrial Rate : 000 BPM P-R Int : 000 ms QRS Dur : 150 ms QT Int : 362 ms P-R-T Axes : 000 -81 030 degrees QTc Int : 556 ms Wide QRS tachycardia Right bundle branch block Left anterior fascicular block Bifascicular block Septal infarct , age undetermined Abnormal ECG When compared with ECG of 12-APR-2024 22:04, Wide QRS tachycardia has replaced Sinus rhythm Vent. rate has increased BY 58 BPM Confirmed by Kyler Perkins ([id number]) on 04/22/2024 12:17:31 PM Referred By: [facility] Confirmed By:Kyler Perkins
--- NOTE | 2024-04-22 12:19 | Electrocardiogram Report ---
Test Reason : Blood Pressure : / mmHG Vent. Rate : 091 BPM Atrial Rate : 091 BPM P-R Int : 250 ms QRS Dur : 154 ms QT Int : 430 ms P-R-T Axes : 027 -68 036 degrees QTc Int : 528 ms Sinus rhythm with 1st degree A-V block with Premature supraventricular complexes and with occasional Premature ventricular complexes Right bundle branch block Left anterior fascicular block Bifascicular block Septal infarct , age undetermined Abnormal ECG When compared with ECG of 21-APR-2024 22:31, (unconfirmed) Sinus rhythm has replaced Wide QRS tachycardia Vent. rate has decreased BY 51 BPM Confirmed by Kyler Perkins ([id number]) on 04/22/2024 12:18:59 PM Referred By: [facility] Confirmed By:Kyler Perkins
--- NOTE | 2024-04-22 12:21 | Electrocardiogram Report ---
Test Reason : Blood Pressure : / mmHG Vent. Rate : 073 BPM Atrial Rate : 073 BPM P-R Int : 242 ms QRS Dur : 088 ms QT Int : 516 ms P-R-T Axes : 042 -42 019 degrees QTc Int : 568 ms Sinus rhythm with 1st degree A-V block Left axis deviation Low voltage QRS Septal infarct (cited on or before 12-APR-2024) Prolonged QT Abnormal ECG When compared with ECG of 22-APR-2024 01:42, (unconfirmed) Premature ventricular complexes are no longer Present Premature supraventricular complexes are no longer Present (RBBB and left anterior fascicular block) is no longer Present Questionable change in initial forces of Septal leads Confirmed by Kyler Perkins ([id number]) on 04/22/2024 12:21:25 PM Referred By: [facility] Confirmed By:Kyler Perkins
--- OUTSIDE RECORDS SUMMARY | 2024-04-22 12:58 | External Medical Summary | Summary of Care ---
Author Name Unknown Organization [facility] Address [address] [place] [address] Phone [phone] Care Team Providers Care [facility] [employer] Name Role Phone Debbie Arango MD Primary Care Provider Reason for Visit * Reason Onset Date Comments Advice 04/13/2024 Encounter Details Date Type Department Care Team (Late st Contact Info) Description 04/13/2024 Telephone Gastroenterology, [place] [address], [place] [id number] Salena العلي MD [address] [place] [address] Advice Allergies No known active allergiesdocumented as of this encounter (statuses as of 04/14/2024) Medications Medication Sig Dispensed Refills Start Date [...] as of this encounter (statuses as of 04/14/2024) Active Problems Problem Noted Date Diagnosed Date CKD (chronic kidney disease) stage 5, GFR less than 15 ml/min 05/21/2023 Peripheral vascular disease with claudication HTN, goal below 130/80 05/21/2023 documented as of this encounter (statuses as of 04/14/2024) Social History Tobacco Use Types Packs/Day Years [...] encounter Miscellaneous Notes * Telephone Encounter - Symone Box CMA - 04/14/2024 8:10 AM EDT Images from the original note were not included. Salena العلي MD You I reviewed [facility] chart. Pt should have a colonoscopy while hospitalized; it would likely be difficult to do this as outpt. He had rectal bleeding, hgb drop of 2 His coumadin is being held, and procedure can be done if INR is < 2. Notified Dyana of above MD note. Dyana voiced understanding and will let Monster know. * Telephone Encounter - Racquel Worthington OSA - 04/13/2024 12:01 PM EDT Patients sister Dyana calling patient was seen in ER on 04/12 and admitted to [facility] with Rectal Bleeding and High INR. Asked patient if he wanted a colonoscopy would like to discuss with . If INR should be down first. Please call Dyana. documented in this encounter Plan of Treatment Upcoming Encounters Date Type Department Care Team (Late st Contact Info) Description 05/04/2024 3:00 PM EDT Office Visit Cardiology, [facility] [address] [place] [id number] Rick Tan, DO [address] [id number] 06/01/2024 11:20 AM EDT Office Visit Neurology Amna Heredia [place] [address] [place] [address] Carlos Jiménez, DO [address] [place] [address] 06/30/2024 1:00 PM EDT Cardiac Studies Cardiac Studies, Og Lozadas [place] [address] [place] [id number] 09/15/2024 11:30 AM EST Telemedicine Cardiovascular Genetics, [facility] [address] [place] [address] Kayla Larson, MS [address] [place] [address] Health Maintenance Due Date Last Done Comments [...] filedocumented as of this encounter Care Teams [facility]her [employer] Shearer Relationship Specialty Start Date End Date Debbie Arango MD [address] [facility] [place] [id number] PCP - General Internal Medicine 03/04/23 documented as of this encounter
--- NOTE | 2024-04-22 13:13 | Communication Note ---
Date of Service: April 22, 2024 Patient was seen and examined at bedside. 78-year-old male with PMH of PE/A-fib on Coumadin, hypertrophic cardiomyopathy, HTN, CAD, PVD, HTN, ESRD on PD, prostate cancer status post surgery, MGUS, chronic anemia [baseline hemoglobin of 10-11], past tobacco abuse presented to the ED with complaint of cough for 2 days, productive of clear sputum, feeling p rogressively weak for about the same duration. Patient does report occasional choking on food. Patient denies chest pain or abdominal pain or febrile illness or sore throat or blood in stool. Patient reports falling at home yesterday by missing a step 2/2 weakness, reports he did not hit head. In the ED he was noted to be in rapid A-fib with heart rate in 140s. He is being managed for the following: Admitting imagings: CXR: No acute finding. CT chest: Concern of free air within the abdomen with fluid. Dependent airspace disease at lung bases right greater than left. CTAP: No acute abnormalities. A-fib with RVR Hypotension Patient with history of A-fib and PE on Coumadin. Admitting PT/INR is 2.6. Patient noted to be in A-fib with RVR at presentation with heart rate in 140s Hypotension likely secondary to A-fib with RVR. Patient started on amiodarone drip at presentation. Patient converted to sinus rhythm. Cardiology on board, DC IV amiodarone, continue with oral amiodarone. Plan for EP consultation. Hold Coumadin today. Monitor replete electrolytes. Continue telemetry monitoring. Possible CAP versus aspiration pneumonia: Admitting CT chest with dependent airspace disease and admitting wbc elevated, patient with cough for last 2 days, reports choking on food occasionally. Respiratory BioFire HEAD: No headache, dizziness, or head injury.. Start Unasyn and doxycycline 04/22, speech consult. Likely demand ischemia: Troponin elevated, EKG with no acute changes, patient with no chest pain, troponin elevation secondary to A-fib with RVR. Continue telemetry monitoring. ESRD on PD: Nephrology consult to assist with PD Other chronic medical conditions: Continue with/resume home meds as and when able. hx PE/A-fib on Coumadin, INR therapeutic hx CAD/PVD as per records prostate cancer status post surgery chronic anemia, hemoglobin at baseline Hyperglycemia rule out DM past tobacco abuse. PT OT eval once medically stable DVT prophylaxis. Coumadin INR goal between 2 and 3 Full code Patient's son Mr. Dominic Samson, contact #[phone]. For detailed information on the patient, refer to today's H&P note. Text document was generated using [employer] voice recognition software. It may contain grammatical or spelling errors. Kindly contact undersigned for clarification of any documentation item in question.
[2024-04-22] MEDS: MoRPHine SULFATE 10 MG/ML CARP/VIAL IV STA (13:47)
[2024-04-22] MEDS: MoRPHine SULFATE 10 MG/ML CARP/VIAL ONE (13:57)
[2024-04-22] MEDS: AMPICILLIN/SULBACTAM SOD 3,000 MG in SODIUM CHLOR 0.9% MINI-B 100 ML IV SCH ×2 (15:00→16:45)
[2024-04-22 15:49] LABS: Hematocrit (blood only) 28.5 % (42.0-52.0); Hemoglobin 9.5 g/dl (14.0-18.0); Mean Corpuscular Hemoglobin 29.4 pg (25.0-34.0); Mean Corpuscular Hgb Conc 33.3 g/dL (32.0-36.0); Mean Corpuscular Volume 88.2 fL (80.0-100.0); Mean Platelet Volume 10.3 fL (9.4-12.4); Platelet Count 214 K/uL (130-400); RDW Coefficient of Variation 15.6 % (11.5-14.5); RDW Standard Deviation 50.3 fL (36.4-46.3); Red Blood Count 3.23 M/uL (4.70-6.10); White Blood Count 8.39 K/ul (4.8-10.8)
[2024-04-22] MEDS: MAGNESIUM SULFATE / D5W 1 GM/100 ML BAG IV SCH (17:28)
[2024-04-22] MEDS: DOXYCYCLINE HYCLATE 100 MG CAP PO SCH (20:09)
[2024-04-22] MEDS: AMIODARONE 200 MG TAB PO ONE (20:09)
[2024-04-23 06:13] LABS: Hemoglobin 9.5 g/dl (14.0-18.0); Mean Corpuscular Hemoglobin 29.7 pg (25.0-34.0); Mean Corpuscular Hgb Conc 33.9 g/dL (32.0-36.0); Mean Corpuscular Volume 87.5 fL (80.0-100.0); Mean Platelet Volume 10.4 fL (9.4-12.4); Platelet Count 233 K/uL (130-400); RDW Coefficient of Variation 15.2 % (11.5-14.5); RDW Standard Deviation 48.7 fL (36.4-46.3); White Blood Count 7.52 K/ul (4.8-10.8)
[2024-04-23 06:27] LABS: BUN Creatinine Ratio 5.1 (10-20); Calcium 7.6 mg/dl (8.6-10.3); Creatinine Clr Calc Pharmacy 9.6 ml/min; Est GFR (African American) 7.9 ml/min; Est GFR (Non-African American) 6.8 ml/min; Potassium 3.9 mmol/L (3.5-5.1)
[2024-04-23 06:45] LABS: Prothrombin Time 20.4 Seconds (9.0-12.0)
[2024-04-23] MEDS ORDERED: METOPROLOL TARTRATE 25 MG TAB PO SCH (09:00)
[2024-04-23 09:22] LABS: Troponin I High Sensitivity 610.9 pg/ml (0-20)
[2024-04-23] MEDS: ADVANCED PROBIOTIC 625 MG CAPSULE PO SCH (09:26)
--- NOTE | 2024-04-23 10:07 | Communication Note ---
Date of Service: April 23, 2024 notified by mgmt analyst that overnight team disconnected the patient from the machine for unclear reasons. Effluent is clear And no concerns about the exit site or tubing per superintendent sales. Will need to consider this a wet contamination event. Patient needs -PD fluid To be sent for Gram stain cell count and culture - transfer set change -1 dose of 1.5 gm of intraperitoneal cefazolin to dwell at least 6 hours
[2024-04-23] MEDS: METOPROLOL TARTRATE 25 MG TAB PO SCH (10:50)
--- NOTE | 2024-04-23 11:49 | Cardiology Progress Note ---
Date of Service April 23, 2024 Assessment & Plan (1) Atrial flutter with rapid ventricular response: (2) Hypertrophic cardiomyopathy: (3) Elevated troponin I level: (4) Bifascicular block: (5) CKD (chronic kidney disease), stage V: (6) Hypothyroid: (7) CAP (community acquired pneumonia): (8) Acute on chronic anemia: Plan 78-year-old male admitted due to mechanical fall, paroxysmal atrial fibrillation with rapid ventricular response and hypotension. I suspect atrial flutter provoked by hypovolemia in the setting of chronic, daily peritoneal dialysis and possible community acquired pneumonia versus aspiration. Hypomagnesemia noted on admission. Elevated troponin due to demand ischemia in setting of atrial flutter with rapid ventricular response, end-stage renal disease, possible CP, and hypotension. Remains in sinus rhythm after treatment with intravenous amiodarone. ECG demonstrating prolonged QT interval. Recommend discontinue amiodarone in favor of metoprolol tartrate 25 mg 3 times daily. Previously tolerated metoprolol succinate 50 mg twice daily dating back to September 2023. Electrophysiology consultation to consider EPS/flutter ablation. Supplement magnesium and potassium as per nephrology. Recent hospitalization with lower GI bleed noted. Anemia with hgb 9.5g/dl today (baseline 11.0g/dl). No signs of GI blood loss at this time. INR therapeutic, 2.0 today. Warfarin currently on hold. Repeat INR in a.m. I spent a total of 45 minutes on the date of service in preparation, delivery, and documentation of the care provided to this patient, excluding any time spent in the performance of separately billed services. Admission and Anticipated Discharge Date Admission Date: April 22, 2024 Review of Systems 2 Review of Systems: All systems reviewed & are unremarkable except as noted in Subjective Physical Exam Constitutional: well nourished; no acute distress Respiratory: normal respiratory effort; no respiratory distress, no labored breathing and no retractions Cardiovascular: Rate/Rhythm: regular rate and regular rhythm Heart Sounds: normal S1, normal S2 and + murmur (1/6 systolic ejection murmur) Vessels: radial pulses present; no JVD and no carotid bruit Extremities: + edema (Trace bilateral ankle edema) Gastrointestinal (Abdomen): Inspection/Auscultation: abdomen normal to inspection and normal bowel sounds; abdomen not distended Percussion/Palpation: abdomen soft; abdomen nontender, no guarding and abdomen not rigid Neurologic: CN's II-XI intact bilaterally and moves all extremities; no focal motor deficits Results & Data Vital Signs (Past 12 Hours) Vital Signs Temp Pulse Resp BP Pulse Ox O2 Del Method 04/23/24 10:49 72 131/76 04/23/24 09:14 Room Air 04/23/24 08:25 36.5 C 70 18 04/23/24 07:00 36.5 C 70 18 112/65 92 Room Air 04/23/24 03:14 36.6 C 72 16 128/69 93 Room Air Laboratory Results Cardiac Enzymes 04/23/24 Range/Units 05:20 Troponin I High Sens 610.9 H* D (0-20) pg/ml Coagulation 04/23/24 Range/Units 05:20 PT 20.4 H (9.0-12.0) Seconds CBC 04/22/24 04/23/24 Range/Units 15:17 05:20 WBC 8.39 7.52 (4.8-10.8) K/ul RBC 3.23 L 3.20 L (4.70-6.10) M/uL Hgb 9.5 L 9.5 L (14.0-18.0) g/dl Hct 28.5 L 28.0 L (42.0-52.0) % Plt Count 214 233 (130-400) K/uL Comprehensive Metabolic Panel 04/23/24 Range/Units 05:20 Sodium 133 L (136-145) mmol/L Potassium 3.9 (3.5-5.1) mmol/L Chloride 98 (98-107) mmol/L Carbon Dioxide 25 (21-32) mmol/L BUN 36 H (6-23) mg/dl Creatinine 7.04 H* (0.6-1.4) mg/dl Glucose 149 H (70-99(Fasting)) mg/dl Calcium 7.6 L (8.6-10.3) mg/dl Intake and Output 04/22/24 04/23/24 04/23/24 22:59 06:59 14:59 Intake Total 620.833 / 960.833 Output Total 200 / 201 88 / 88 Balance 420.833 / 759.833 - / -88 Intake: IV 500.833 / 600.833 Amiodarone / D5w 360 mg In 200 200 / 200 ml @ 0.5 MG/MIN 16.667 mls/hr IV .Q12H [facility] Rx#:[id number] Ampicillin/Sulbactam Sod 3,000 200 / 200 mg In Sodium Chlor 0.9% Mini-B 100 ml @ 100 mls/hr IV Q12H [facility] Rx#:[id number] Magnesium Sulfate / D5w 1 gm In 100.833 / 100.833 100 ml @ 50 mls/hr IV Q2H [facility] Rx#:[id number] Oral 120 / 360 Output: Urine 200 / 200 225 / 225 Peritoneal Dialysis -137 / -137 Ultrafiltration Amount Other: # Unmeasured Voids 1 Weight 87.9 kg 87.5 kg Weight Measurement Method Built in [facility] (6) Hypothyroid Hypothyroidism type: due to medication Qualified Code(s): E03.2 - Hypothyroidism due to medicaments and other exogenous substances
[2024-04-23] MEDS: CEFAZOLIN IP ONE (13:57)
[2024-04-23] MEDS: DIALYSIS IP ONE (13:57)
[2024-04-23] MEDS: PERITONEAL 2.5% IP ONE (13:57)
--- NOTE | 2024-04-23 15:06 | Hospitalist Progress Note ---
Date of Service April 23, 2024 Assessment & Plan (1) Hypotension: Plan 78-year-old male with PMH of PE/A-fib on Coumadin, hypertrophic cardiomyopathy, HTN, CAD, PVD, HTN, ESRD on PD, prostate cancer status post surgery, MGUS, chronic anemia [baseline hemoglobin of 10-11], past tobacco abuse presented to the ED with complaint of cough for 2 days, productive of clear sputum, feeling progressively weak for about the same duration. Patient does report occasional choking on food. Patient denies chest pain or abdominal pain or febrile illness or sore throat or blood in stool. Patient reports falling at home yesterday by missing a step 2/2 weakness, reports he did not hit head. In the ED he was noted to be in rapid A-fib with heart rate in 140s. He is being managed for the following: Admitting imagings: CXR: No acute finding. CT chest: Concern of free air within the abdomen with fluid. Dependent airspace disease at lung bases right greater than left. CTAP: No acute abnormalities. A-fib with RVR Hypotension Patient with history of A-fib and PE on Coumadin. Admitting PT/INR is 2.6. Patient noted to be in A-fib with RVR at presentation with heart rate in 140s Hypotension likely secondary to A-fib with RVR. Cardio on board, amiodarone and coreg dc'd. Metoprolol being titrated. Plan for EP consultation. Hold Coumadin today. Monitor replete electrolytes. Continue telemetry monitoring. Possible CAP versus aspiration pneumonia: Admitting CT chest with dependent airspace disease and admitting wbc elevated, patient with cough for last 2 days POURER, reports choking on food occasionally. Respiratory BioFire neg c/w Start Unasyn and doxycycline 04/22, speech consult, video swallow on Friday. Likely demand ischemia: Troponin elevated, EKG with no acute changes, patient with no chest pain, troponin elevation secondary to A-fib with RVR. Continue telemetry monitoring. ESRD on PD: Nephrology consult to assist with PD Other chronic medical conditions: Continue with/resume home meds as and when able. hx PE/A-fib on Coumadin, INR therapeutic hx CAD/PVD as per records prostate cancer status post surgery chronic anemia, hemoglobin at baseline Hyperglycemia rule out DM past tobacco abuse. PT OT eval once medically stable DVT prophylaxis. Coumadin INR goal between 2 and 3 Full code Patient's son Mr. Dominic Samson, contact #[phone]. Text document was generated using [employer] voice recognition software. It may contain grammatical or spelling errors. Kindly contact undersigned for clarification of any documentation item in question. Admission and Anticipated Discharge Date Admission Date: April 22, 2024 Subjective Patient was seen and examined at bedside. Patient was lying in bed, on room air, resting comfortably, not in any acute distress. Patient reports feeling tired today, reports cough getting better, reports eating okay and moving bowels okay. Patient denies febrile illness. Physical Exam Physical Exam: GENERAL: Comfortable, pleasant, hard of hearing, episodic dry coughing, no respiratory distress, appears tired/ill SKIN: Pallor, warm HEENT: Pale palpebral conjunctivae, no ptosis, moist buccal mucosa NECK : Supple, no tenderness CHEST : Decreased breath sounds, scattered expiratory wheezes, no tenderness HEART : RRR, systolic murmur ABDOMEN: Some distention, PD port noted, no s/s infection, non tender. EXTREMITIES : Minima LE swelling no LE tenderness, no other conspicuous deformities noted NEUROLOGIC : Coherent, no facial asymmetry, slightly hard of hearing, no other gross focality Results & Data Results & Data Vital Signs (Past 12 Hours) Vital Signs Temp Pulse Pulse Resp BP Pulse Ox O2 Del Method 04/23/24 14:45 67 132/78 04/23/24 13:51 36.4 C L 64 18 120/73 04/23/24 13:00 64 04/23/24 11:53 36.5 C 70 16 128/77 94 Room Air 04/23/24 10:49 72 131/76 04/23/24 09:14 Room Air 04/23/24 08:25 36.5 C 70 18 04/23/24 08:00 73 04/23/24 07:00 36.5 C 70 18 112/65 92 Room Air 04/23/24 03:14 36.6 C 72 16 128/69 93 Room Air
[2024-04-23 15:56] LABS: Appearance Peritoneal Fluid Slightly Hazy; Color Peritoneal Fluid Colorless; RBC Peritoneal Fluid Auto < 2000 /uL; WBC Peritoneal Fluid Auto < 10 /ul (0-300)
--- NOTE | 2024-04-23 21:46 | Nephrology Progress Note ---
Date of Service April 23, 2024 Assessment & Plan (1) ESRD on peritoneal dialysis: Plan: Peritoneal dialysis patient who dialyzes under my care at [facility] with assistance from his ex- and son. Patient unable to perform his own treatments. He missed PD 04/21 (night of admission) which may along with the heart rhythm issues contribute to his mild and asymptomatic lower extremity swelling. We cannot offer his customary prescription here for PD d/t solutions stocked >> he frequently retains fluid on admissions here and last night no exception. - contamination event 04/22 > addressed - K and mag at goal Ensure daily bowel movement Cont 1.8 L fluid limit and order that protein shakes do not count towards this limit For tonight we will do 12 hrs of tx > 5 exchanges alternating 2.5% and 4.25% but favoring 2.5% - daily bmp and mag (2) Hypotension: Plan: Resolved. will be more aggressive w/ dialysis fluid removal today. Should improve further as heart rhythms are stabilized (3) Atrial flutter with rapid ventricular response: Plan: Remains in sinus rhythm; cardiology notes prolonged QT > recommends change from amio to metoprolol tid rhythm /rate control as per cardiology and primary service INR 2.0: Defer to primary service and cardiology whether to continue anticoagulation in this patient with history of pulmonary emboli and a fall (4) Acute on chronic anemia: Plan: hgb from 12.9 day of presentation (04/21) 2300 to 9.5 at 0600 today >continue serial hgbs Admission and Anticipated Discharge Date Admission Date: April 22, 2024 Subjective had contamination event (see separate communication) ? s/p transfer set change and IP abtx; no sob, cough same or a bit better, edema not noticeable to him and unchanged. eating peanut butter and enjoying Review of Systems 2 Review of Systems: All systems reviewed & are unremarkable except as noted in Subjective Physical Exam 2 Constitutional: well developed (Alert and appropriately interactive), well nourished and cooperative; no acute distress Eyes: EOM intact bilaterally ENMT: Ears: no external ear abnormality Nose: no external nose abnormality Mouth: + dry oral mucous membranes Neck: no nuchal rigidity Respiratory: normal respiratory effort and + cough (rare dry cough) A uscultation: + diminished lung sounds Cardiovascular: Rate/Rhythm: regular rate and regular rhythm Extremities: + edema (Bilateral proximal legs 2+ and 1+ pretibial right lower extremity) Gastrointestinal (Abdomen): Inspection/Auscultation: abdomen normal to inspection (PD catheter present) and normal bowel sounds; abdomen not distended Percussion/Palpation: abdomen soft; abdomen nontender Musculoskeletal: Extremities: strength 5/5 throughout Skin: no rashes, warm and dry Psychiatric: Orientation: alert and oriented x 3 Speech: normal rate/rhythm/volume of speech Insight: + limited insight (Limited recall) Results & Data Vital Signs (Past 12 Hours) Vital Signs Temp Pulse Pulse Resp BP BP Pulse Ox 04/23/24 20:57 36.3 C L 81 18 04/23/24 20:43 36.3 C L 81 18 125/76 04/23/24 19:09 36.3 C L 18 135/76 94 04/23/24 15:24 36.3 C L 66 18 134/73 95 04/23/24 14:45 67 132/78 04/23/24 13:51 36.4 C L 64 18 120/73 04/23/24 13:00 64 04/23/24 11:53 36.5 C 70 16 128/77 94 04/23/24 10:49 72 131/76 O2 Del Method 04/23/24 20:57 04/23/24 20:43 04/23/24 19:09 Room Air 04/23/24 15:24 Room Air 04/23/24 14:45 04/23/24 13:51 04/23/24 13:00 04/23/24 11:53 Room Air 04/23/24 10:49 Laboratory Results 04/23/24 05:20 04/23/24 05:20
--- NOTE | 2024-04-23 23:27 | Electrocardiogram Report ---
Test Reason : Blood Pressure : / mmHG Vent. Rate : 063 BPM Atrial Rate : 063 BPM P-R Int : 266 ms QRS Dur : 168 ms QT Int : 502 ms P-R-T Axes : 042 -42 020 degrees QTc Int : 513 ms Sinus rhythm with 1st degree A-V block Left axis deviation Low voltage QRS Right bundle branch block Abnormal ECG When compared with ECG of 22-APR-2024 07:48, No significant change Confirmed by Carlos Hdez ([id number]) on 04/23/2024 11:27:37 PM Referred By: [facility] Confirmed By:Carlos Hdez
[2024-04-24 08:20] LABS: INR 1.5 (0.9-1.1); Prothrombin Time 16.1 Seconds (9.0-12.0)
--- NOTE | 2024-04-24 09:03 | Cardiology Progress Note ---
<Statement entered by Rosalba Humphrey, DO - 04/24/24 12:06> I have reviewed the advanced practitioner's documentation and agree with the plan of care. I accept the responsibility for the associated risk. Pt is seen in cardiology f/u due to paroxysmal atrial flutter. he has converted SR. Recommend switching lopressor to toprol. agree no more amio due to the prolonged QT. restart him on Coumadin no bridging due to the history of GIB just let the coumadin levels rise up. Ensure he has follow up as an outpt with the coumadin clinic. Otherwise pt is stable from a cardiac perspective. He will need f/u in our office upon discharge. Please re-consult as necessary Dr. Humphrey Date of Service April 24, 2024 Assessment & Plan (1) Atrial flutter with rapid ventricular response: (2) Hypertrophic cardiomyopathy: (3) Elevated troponin I level: (4) Bifascicular block: (5) CKD (chronic kidney disease), stage V: (6) Hypothyroid: (7) CAP (community acquired pneumonia): (8) Acute on chronic anemia: Plan 78-year-old male admitted due to mechanical fall, paroxysmal atrial fibrillation with rapid ventricular response and hypotension. Atrial flutter likely provoked by hypovolemia in the setting of chronic daily peritoneal dialysis and possible community acquired pneumonia versus aspiration. Hypomagnesemia noted on admission. Elevated troponin due to demand ischemia in setting of atrial flutter with rapid ventricular response, end-stage renal disease, possible CP, and hypotension. Patient remains in sinus rhythm after treatment with intravenous amiodarone. Oral amiodarone discontinued due to significant QTc prolongation. Metoprolol tartrate 25 mg 3 times daily initiated in AM of 04/23/2024. Recommendations: 1. Change Lopressor 25 TID to metoprolol succinate 50 mg twice daily 2. Resume anticoagulation today. Benefits probably outweigh risk though difficult to discern (unprovoked PE, PAF, rectal bleeding in March, hemorrhoids, anemia, mechanical fall preceding this hospitalization) 3. Outpatient electrophysiology consultation, ? EPS/flutter ablation. I spent a total of 26 minutes on the date of service in preparation, delivery, and documentation of the care provided to this patient excluding any time spent in the performance of separately billed services. This visit was a split-shared visit with the substantive portion of the medical decision making performed by the supervising continuity writer/billing provider. Admission and Anticipated Discharge Date Admission Date: April 22, 2024 Subjective Patient seen and examined. Chart, medications, and telemetry reviewed. Just unhooked from PD. Complaints: Cough productive of mucous. Weak. No chest pain, palpitations, increased shortness of breath, orthopnea, PND, fevers, or chills Telemetry: Sinus at 70 bpm presently. Heart rates down into the 50's overnight. No recurrent atrial flutter. Review of Systems Review of Systems: As above. otherwise, negative, or noncontributory. Physical Exam Physical Exam: General: A&Ox3. NAD. HENT: Normocephalic. Atraumatic. Eyes: PER. Conjunctiva pink, sclera clear. Neck: No JVD. Heart: RRR, 70 bpm. Grade II/ systolic ejection murmur. No diastolic murmur. Lungs: Clear to auscultation. Abdomen: +BS. + Catheter. Extremities: Minimal edema. No cyanosis. Limited neurological examination is without focal deficits. Pulses: Posterior tibial=1/4. Results & Data Vital Signs (Past 12 Hours) Vital Signs Temp Pulse Pulse Resp BP BP Pulse Ox 04/24/24 07:31 36.4 C L 69 17 127/83 94 04/24/24 02:45 36.7 C 58 L 18 123/66 94 04/23/24 22:46 36.9 C 59 L 17 125/74 94 04/23/24 22:16 66 O2 Del Method 04/24/24 07:31 Room Air 04/24/24 02:45 Room Air 04/23/24 22:46 Room Air 04/23/24 22:16 Laboratory Results Cardiac Enzymes 04/23/24 Range/Units 05:20 Troponin I High Sens 610.9 H* D (0-20) pg/ml Coagulation 04/24/24 Range/Units 07:01 PT 16.1 H (9.0-12.0) Seconds Intake and Output 04/23/24 04/24/24 04/24/24 22:59 06:59 14:59 Intake Total 340 / 2851.25 200 / 2851.25 Output Total 201 / 389 100 / 389 Balance 139 / 2462.25 100 / 2462.25 Intake: IV 100 / 2111.25 Ampicillin/Sulbactam Sod 3,000 100 / 100 mg In Sodium Chlor 0.9% Mini-B 100 ml @ 100 mls/hr IV Q24H [facility] Rx#:[id number] Oral 240 / 740 200 / 740 Output: Urine 200 / 525 100 / 525 Peritoneal Dialysis 0 / -137 Ultrafiltration Amount # Bowel Movements Other: Weight 87.5 kg 91.6 kg (6) Hypothyroid Hypothyroidism type: due to medication Qualified Code(s): E03.2 - Hypothyroidism due to medicaments and other exogenous substances
[2024-04-24 09:55] LABS: Hematocrit (blood only) 30.6 % (42.0-52.0); Hemoglobin 10.4 g/dl (14.0-18.0)
[2024-04-24 10:09] LABS: BUN Creatinine Ratio 4.5 (10-20); Calcium 7.9 mg/dl (8.6-10.3); Creatinine Clr Calc Pharmacy 10.1 ml/min; Est GFR (African American) 8.2 ml/min; Est GFR (Non-African American) 7.1 ml/min; Potassium 3.3 mmol/L (3.5-5.1)
[2024-04-24] MEDS: POTASSIUM CHLORIDE CRTAB 20 MEQ TABCR PO ONE ×2 (11:29→15:21)
--- NOTE | 2024-04-24 12:38 | Hospitalist Progress Note ---
Date of Service April 24, 2024 Assessment & Plan (1) Hypotension: Plan 78-year-old male with PMH of PE/A-fib on Coumadin, hypertrophic cardiomyopathy, HTN, CAD, PVD, HTN, ESRD on PD, prostate cancer status post surgery, MGUS, chronic anemia [baseline hemoglobin of 10-11], past tobacco abuse presented to the ED with complaint of cough for 2 days, productive of clear sputum, feeling progressively weak for about the same duration. Patient does report occasional choking on food. Patient denies chest pain or abdominal pain or febrile illness or sore throat or blood in stool. Patient reports falling at home yesterday by missing a step 2/2 weakness, reports he did not hit head. In the ED he was noted to be in rapid A-fib with heart rate in 140s. He is being managed for the following: A-fib with RVR Hypotension Hypertrophic cardiomyopathy Elevated troponin--demand ischemia secondary to above in setting of CKD Continue metoprolol succinate 50 mg twice a day Resume Coumadin for anticoagulation Monitor INR: 1.5 today No IV heparin bridge given recent GI bleed Appreciate cardiology input Monitor and replete electrolytes as needed Will need EP evaluation as outpatient Possible Pneumonia ? Aspiration --CT Chest:Dependent airspace disease at the lung bases right greater than left. Findings may be due in part to compressive atelectasis, sequela of infection/aspiration changes are suspected given debris within the right mainstem bronchus extending to multiple right lower lobe branches. -- BioFire negative Continue Unasyn, doxycycline Aspiration precautions Plan for video swallow study on Friday Mechanical Fall Fall precautions PT OT Prediabetes HbA1c 6.4 Counseled dietary changes ESRD on PD: Nephrology consult to assist with PD Other chronic medical conditions: Continue with/resume home meds as and when able. H/O PE/A-fib on Coumadin, INR therapeutic. Risks Vs benefits explained to patient. Patient agrees to resume Coumadin H/O GI bleed S/P polypectomy, h/o diverticulosis, internal hemorrhoids H/O CAD/PVD as per records Prostate cancer S/P surgery Chronic anemia, Hb at baseline Past tobacco abuse. DVT Px: Coumadin CODE STATUS Full code Admission and Anticipated Discharge Date Admission Date: April 22, 2024 Subjective Patient is seen and examined at bedside States having cough with expectoration Reports generalized weakness Denies any chest pain, shortness of breath, nausea, vomiting, abdominal pain Discussed with cardiology today Review of Systems Review of Systems: All systems reviewed & are unremarkable except as noted in Subjective Physical Exam Physical Exam: Physical Exam: Vitals signs as noted above General Appearance:Moderately built and nourished, no apparent distress Head: normocephalic, Atraumatic Eyes: normal inspection, EOMI Neck: supple, Trachea midline Respiratory/Chest: Normal breath sounds, CTA, No accessory muscle use Cardiovascular: S1, S2, + murmur Abdomen/GI:Soft, Non tender, Bowel sounds present Extremities/Musculoskeletal:normal inspection, B// LE trace edema Neurologic/Psych:AAOX3, grossly no focal neurological deficits Skin: normal color, warm Results & Data Results & Data Vital Signs (Past 12 Hours) Vital Signs Temp Pulse Resp BP BP Pulse Ox O2 Del Method 04/24/24 11:34 36.3 C L 65 20 132/73 91 Room Air 04/24/24 09:35 Room Air 04/24/24 09:24 36.5 C 70 17 04/24/24 09:24 70 146/81 H 04/24/24 07:31 36.4 C L 69 17 127/83 94 Room Air 04/24/24 02:45 36.7 C 58 L 18 123/66 94 Room Air Laboratory Results Short CBC 04/24/24 Range/Units 07:10 Hgb 10.4 L (14.0-18.0) g/dl Hct 30.6 L (42.0-52.0) % BMP 04/24/24 07:10 Sodium 135 L Potassium 3.3 L Chloride 98 Carbon Dioxide 26 BUN 31 H Creatinine 6.82 H* Glucose 147 H Calcium 7.9 L
--- NOTE | 2024-04-24 13:29 | Electrocardiogram Report ---
Test Reason : Blood Pressure : / mmHG Vent. Rate : 067 BPM Atrial Rate : 067 BPM P-R Int : 258 ms QRS Dur : 084 ms QT Int : 534 ms P-R-T Axes : 022 -49 011 degrees QTc Int : 564 ms Sinus rhythm with 1st degree A-V block Low voltage QRS Left anterior fascicular block Possible Old Anterolateral infarct Prolonged QT Abnormal ECG When compared with ECG of 23-APR-2024 14:47, QT has lengthened Confirmed by Humberto Perez ([id number]) on 04/24/2024 1:29:36 PM Referred By: [facility] Confirmed By:Humberto Perez
--- NOTE | 2024-04-24 14:50 | Nephrology Progress Note ---
Date of Service April 24, 2024 Assessment & Plan (1) ESRD on peritoneal dialysis: Plan: Peritoneal dialysis patient who dialyzes under my care at [facility] with assistance from his ex- and son. Patient unable to perform his own treatments. He missed PD 04/21 (night of admission) which may along with the heart rhythm issues contribute to his mild and asymptomatic lower extremity swelling. We cannot offer his customary prescription here for PD d/t solutions stocked >> he frequently retains fluid on admissions here and remains mildly overloaded currently. - contamination event 04/22 > addressed; no e/o infection - K low today and had 20 mEQ po x 1 > will give additional 20 mEq po x 1 Ensure daily bowel movement Cont 1.8 L fluid limit and order that protein shakes do not count towards this limit For tonight we will do 12 hrs of tx > 5 exchanges alternating 2.5% and 4.25% but favoring 2.5% - daily bmp and mag (2) Atrial flutter with rapid ventricular response: Plan: Remains in sinus rhythm; cardiology notes prolonged QT > recommends change from amio to metoprolol LA bid; of note, pt had trouble tolerating BB in past d/t symptomatic hypotension but will monitor for this rhythm /rate control as per cardiology and primary service INR 1.5: cardiology recommends resume anticoagulation today in this patient with history of pulmonary emboli and a fall (3) Acute on chronic anemia: Plan: hgb from 12.9 day of presentation (04/21) 2300 to 10.4 at 0700 today >continue serial hgbs Admission and Anticipated Discharge Date Admission Date: April 22, 2024 Subjective UF 2.6 L; no acute interval events. denies sob, n/v/abd pain, f/c. ongoing LE edema triny prox. did ambulate w/ PT today Review of Systems 2 Review of Systems: All systems reviewed & are unremarkable except as noted in Subjective Physical Exam 2 Constitutional: well developed (Alert and appropriately interactive), well nourished and cooperative; no acute distress Eyes: EOM intact bilaterally ENMT: Ears: no external ear abnormality Nose: no external nose abnormality Mouth: + dry oral mucous membranes Neck: no nuchal rigidity Respiratory: normal respiratory effort; no cough Auscultation: + diminished lung sounds Cardiovascular: Rate/Rhythm: regular rate and regular rhythm Extremities: + edema (Bilateral proximal legs 2+ and 1+ pretibial right lower extremity) Gastrointestinal (Abdomen): Inspection/Auscultation: abdomen normal to inspection (PD catheter present) and normal bowel sounds; abdomen not distended Percussion/Palpation: abdomen soft; abdomen nontender Musculoskeletal: Extremities: strength 5/5 throughout Skin: no rashes, warm and dry Psychiatric: Orientation: alert and oriented x 3 Speech: normal rate/rhythm/volume of speech Insight: + limited insight (Limited recall) Results & Data Vital Signs (Past 12 Hours) Vital Signs Temp Pulse Pulse Resp BP Pulse Ox O2 Del Method 04/24/24 11:34 36.3 C L 65 20 132/73 91 Room Air 04/24/24 09:35 Room Air 04/24/24 09:24 36.5 C 70 17 04/24/24 09:24 70 146/81 H 04/24/24 08:00 71 04/24/24 07:31 36.4 C L 69 17 127/83 94 Room Air Laboratory Results 04/24/24 07:10 04/24/24 07:10
[2024-04-24] MEDS: WARFARIN SOD 2 MG TAB PO SCH (16:34)
[2024-04-24] MEDS: METOPROLOL SUCC 50MG EXT REL TAB PO SCH (20:29)
[2024-04-25 07:55] LABS: Hematocrit (blood only) 32.2 % (42.0-52.0); Hemoglobin 10.7 g/dl (14.0-18.0)
[2024-04-25 08:10] LABS: Calcium 8.1 mg/dl (8.6-10.3); Creatinine Clr Calc Pharmacy 10.1 ml/min; Est GFR (African American) 8.4 ml/min; Est GFR (Non-African American) 7.3 ml/min; Potassium 4.1 mmol/L (3.5-5.1)
[2024-04-25 08:18] LABS: INR 1.4 (0.9-1.1); Prothrombin Time 14.4 Seconds (9.0-12.0)
--- NOTE | 2024-04-25 13:33 | Hospitalist Progress Note ---
Date of Service April 25, 2024 Assessment & Plan (1) Hypotension: Plan 78-year-old male with PMH of PE/A-fib on Coumadin, hypertrophic cardiomyopathy, HTN, CAD, PVD, HTN, ESRD on PD, prostate cancer status post surgery, MGUS, chronic anemia [baseline hemoglobin of 10-11], past tobacco abuse presented to the ED with complaint of cough for 2 days, productive of clear sputum, feeling progressively weak for about the same duration. Patient does report occasional choking on food. Patient denies chest pain or abdominal pain or febrile illness or sore throat or blood in stool. Patient reports falling at home yesterday by missing a step 2/2 weakness, reports he did not hit head. In the ED he was noted to be in rapid A-fib with heart rate in 140s. He is being managed for the following: A-fib with RVR Hypotension Hypertrophic cardiomyopathy Elevated troponin--demand ischemia secondary to above in setting of CKD Continue metoprolol succinate 50 mg twice a day Resume Coumadin for anticoagulation on 04/24/2024 Monitor INR: 1.4 today No IV heparin bridge given recent GI bleed Appreciate cardiology input Monitor and replete electrolytes as needed Will need EP evaluation as outpatient Continue current medications Possible Pneumonia Likely due to Aspiration --CT Chest:Dependent airspace disease at the lung bases right greater than left. Findings may be due in part to compressive atelectasis, sequela of infection/aspiration changes are suspected given debris within the right mainstem bronchus extending to multiple right lower lobe branches. -- BioFire negative Continue Unasyn, doxycycline Aspiration precautions Scheduled for video swallow study tomorrow Transition to oral antibiotics likely tomorrow H/O severe esophageal dysmotility [facility] High risk for aspiration Aspiration precautions Needs follow-up with GI/Dr. العلي on discharge Hypokalemia Replete electrolytes as needed Monitor Mechanical Fall Fall precautions PT OT Prediabetes HbA1c 6.4 Counseled dietary changes ESRD on PD: Nephrology consult to assist with PD Other chronic medical conditions: Continue with/resume home meds as and when able. H/O PE/A-fib on Coumadin, INR therapeutic. Risks Vs benefits explained to patient. Patient agrees to resume Coumadin H/O GI bleed S/P polypectomy, h/o diverticulosis, internal hemorrhoids H/O CAD/PVD as per records Prostate cancer S/P surgery Chronic anemia, Hb at baseline Past tobacco abuse. DVT Px: Coumadin CODE STATUS Full code Admission and Anticipated Discharge Date Admission Date: April 22, 2024 Subjective Patient is seen and examined at bedside Less cough today No new complaints Discussed with patient's son at bedside Patient's family concerned about poor sleep overnight Denies any chest pain, shortness of breath, nausea, vomiting, abdominal pain Review of Systems Review of Systems: All systems reviewed & are unremarkable except as noted in Subjective Physical Exam Physical Exam: Physical Exam: Vitals signs as noted above General Appearance:Moderately built and nourished, no apparent distress Head: normocephalic, Atraumatic Eyes: normal inspection, EOMI Neck: supple, Trachea midline Respiratory/Chest: Normal breath sounds, CTA, No accessory muscle use Cardiovascular: S1, S2, + murmur Abdomen/GI:Soft, Non tender, Bowel sounds present Extremities/Musculoskeletal:normal inspection, B// LE trace edema Neurologic/Psych:AAOX3, grossly no focal neurological deficits Skin: normal color, warm Results & Data Results & Data Vital Signs (Past 12 Hours) Vital Signs Temp Pulse Pulse Resp BP Pulse Ox O2 Del Method 04/25/24 10:39 36.7 C 55 L 19 102/65 96 Room Air 04/25/24 09:53 68 04/25/24 09:14 65 107/65 04/25/24 09:00 Room Air 04/25/24 07:55 36.3 C L 65 18 04/25/24 07:08 36.6 C 58 L 18 104/63 93 Room Air 04/25/24 02:55 36.6 C 62 16 107/62 93 Room Air Laboratory Results Short CBC 04/25/24 Range/Units 07:14 Hgb 10.7 L (14.0-18.0) g/dl Hct 32.2 L (42.0-52.0) % BMP 04/25/24 07:14 Sodium 138 Potassium 4.1 D Chloride 99 Carbon Dioxide 31 BUN 27 H Creatinine 6.69 H* Glucose 136 H Calcium 8.1 L
--- NOTE | 2024-04-25 15:31 | Nephrology Progress Note ---
Date of Service April 25, 2024 Assessment & Plan (1) ESRD on peritoneal dialysis: Plan: Peritoneal dialysis patient who dialyzes under my care at [facility] with assistance from his ex- and son. Patient unable to perform his own treatments. He missed PD 04/21 (night of admission) which may along with the heart rhythm issues contribute to his mild and asymptomatic lower extremity swelling. We cannot offer his customary prescription here for PD d/t solutions stocked >> he frequently retains fluid on admissions here and remains mildly overloaded currently. - contamination event 04/22 > addressed; no e/o infection - K improved today after supplement yesterday Ensure daily bowel movement Cont 1.8 L fluid limit and order that protein shakes do not count towards this limit For tonight we will again do 12 hrs of tx > 5 exchanges alternating 2.5% and 4.25% but favoring 2.5% - daily bmp and mag - VSS for am appropriate; no prophylactic abtx or other measures needed Care reviewed w/ Dr Yancey re VSS plan, PD plan, ambulation/BP recs. (2) Atrial flutter with rapid ventricular response: Plan: Remains in sinus rhythm; cardiology notes prolonged QT > recommends change from amio to metoprolol LA bid; of note, pt had trouble tolerating BB in past d/t symptomatic hypotension but will monitor for this rhythm /rate control as per cardiology and primary service INR 1.5: cardiology recommends resume anticoagulation today in this patient with history of pulmonary emboli and a fall >>>>PT eval/ambulation and orthostatic VS very important in this pt who's had issues w/ falls and low BP on lower doses of BB in past than cardiology currently proposes (3) Acute on chronic anemia: Plan: hgb from 12.9 day of presentation (04/21) 2300 to 10.4 at 0700 today >continue serial hgbs Admission and Anticipated Discharge Date Admission Date: April 22, 2024 Subjective seen on early afternoon rounds. feeling better he states; for VSS in AM; states less cough and wants to walk; denies shortness of breath, nausea vomiting, abdominal pain, issues with PD exchanges. States he is moving his bowels once at least daily and sometimes twice Review of Systems 2 Review of Systems: All systems reviewed & are unremarkable except as noted in Subjective Physical Exam 2 Constitutional: well developed (resting quietly in bed when I enter but wakes up fully), well nourished and cooperative; no acute distress Eyes: EOM intact bilaterally ENMT: Ears: no external ear abnormality Nose: no external nose abnormality Mouth: + dry oral mucous membranes Neck: no nuchal rigidity Respiratory: normal respiratory effort; no cough Auscultation: + diminished lung sounds Cardiovascular: Rate/Rhythm: regular rate and regular rhythm Extremities: + edema (R leg proximal 2+ and 1+ pretibial right lower extremity) Gastrointestinal (Abdomen): Inspection/Auscultation: abdomen normal to inspection (PD catheter present) and normal bowel sounds; abdomen not distended Percussion/Palpation: abdomen soft; abdomen nontender Musculoskeletal: Extremities: strength 5/5 throughout Skin: no rashes, warm and dry Psychiatric: Orientation: alert and oriented x 3 Speech: normal rate/rhythm/volume of speech Insight: + limited insight (Limited recall) Results & Data Vital Signs (Past 12 Hours) Vital Signs Temp Pulse Pulse Resp BP Pulse Ox O2 Del Method 04/25/24 10:39 36.7 C 55 L 19 102/65 96 Room Air 04/25/24 09:53 68 04/25/24 09:14 65 107/65 04/25/24 09:00 Room Air 04/25/24 07:55 36.3 C L 65 18 04/25/24 07:08 36.6 C 58 L 18 104/63 93 Room Air Laboratory Results 04/25/24 07:14 04/25/24 07:14
[2024-04-26] MEDS: oxyCODONE HCL IR 5 MG TAB (IMMEDIATE RELEASE) PO PRN (05:25)
[2024-04-26 07:34] LABS: Eosinophils # (auto) 0.69 K/uL (0.00-0.50); Eosinophils % (auto) 7.2 %; Hematocrit (blood only) 35.6 % (42.0-52.0); Hemoglobin 11.8 g/dl (14.0-18.0); Immature Granulocytes # (auto) 0.04 K/uL (0.01-0.20); Immature Granulocytes % (auto) 0.4 %; Lymphocytes # (auto) 1.16 K/uL (1.20-3.40); Lymphocytes % (auto) 12.1 %; Mean Corpuscular Hemoglobin 29.6 pg (25.0-34.0); Mean Corpuscular Hgb Conc 33.1 g/dL (32.0-36.0); Mean Corpuscular Volume 89.4 fL (80.0-100.0); Mean Platelet Volume 10.4 fL (9.4-12.4); Monocytes # (auto) 1.07 K/uL (0.11-0.59); Monocytes % (auto) 11.2 %; Neutrophils # (auto) 6.53 K/uL (1.40-6.50); Neutrophils % (auto) 68.1 %; Platelet Count 291 K/uL (130-400); RDW Coefficient of Variation 14.9 % (11.5-14.5); Red Blood Count 3.98 M/uL (4.70-6.10); White Blood Count 9.59 K/ul (4.8-10.8)
[2024-04-26 07:58] LABS: INR 1.3 (0.9-1.1)
[2024-04-26 08:04] LABS: BUN Creatinine Ratio 3.8 (10-20); Calcium 8.4 mg/dl (8.6-10.3); Creatinine Clr Calc Pharmacy 9.9 ml/min; Est GFR (African American) 8.2 ml/min; Est GFR (Non-African American) 7.1 ml/min; Magnesium 1.7 mg/dl (1.7-2.4); Potassium 3.5 mmol/L (3.5-5.1)
--- NOTE | 2024-04-26 10:13 | Dialysis Progress Note ---
Date of Service April 26, 2024 Assessment & Plan Admission and Anticipated Discharge Date Admission Date: April 22, 2024 Subjective Assessment & Plan (1) ESRD on peritoneal dialysis: Plan: Peritoneal dialysis patient at [facility] with assistance from his ex- and son. Patient unable to perform his own treatments. He missed PD 04/21 (night of admission) which may along with the heart rhythm issues contribute to his mild and asymptomatic lower extremity swelling. - contamination event 04/22 > addressed; no e/o infection - K improved today after supplement yesterday Ensure daily bowel movement Cont 1.8 L fluid limit and order that protein shakes do not count towards this limit For tonight we will again do 12 hrs of tx --6 exchanges. No more 4.25% solution left in hospital stock for tonight so will have to do All 2.5%. will add 6th exchanges and do [place] dwell times for higher UF. toal time 14 hrs with 6 exchanges Care reviewed w/ Dr Naye villagomez VSS plan, PD plan, ambulation/BP recs. (2) Atrial flutter with rapid ventricular response: Plan: Remains in sinus rhythm; cardiology notes prolonged QT > recommends change from amio to metoprolol LA bid; of note, pt had trouble tolerating BB in past d/t symptomatic hypotension but will monitor for this rhythm /rate control as per cardiology and primary service INR 1.5: cardiology recommends resume anticoagulation today in this patient with history of pulmonary emboli and a fall (3) Acute on chronic anemia: Plan: hgb from 12.9 day of presentation (04/21) 2300 to 10.4 at 0700 today >continue serial hgbs Subjective Seen for PD. No issues with PD overnight. 1700 ml UF done. less cough and wants to walk. Denies shortness of breath, nausea vomiting, abdominal pain, issues with PD exchanges. States he is moving his bowels once at least daily and sometimes twice. just had Speech video swallow test Review of Systems Review of Systems: All systems reviewed & are unremarkable except as noted in Subjective Physical Exam Constitutional: well developed (resting quietly in bed when I enter but wakes up fully), well nourished and cooperative; no acute distress Eyes: EOM intact bilaterally ENMT: Ears: no external ear abnormality Nose: no external nose abnormality Mouth: + dry oral mucous membranes Neck: no nuchal rigidity Respiratory: normal respiratory effort; no cough Auscultation: + diminished lung sounds Cardiovascular: Rate/Rhythm: regular rate and regular rhythm Extremities: + edema (R leg proximal 2+ and 1+ pretibial right lower extremity) Gastrointestinal (Abdomen): Inspection/Auscultation: abdomen normal to inspection (PD catheter present) and normal bowel sounds; abdomen not distended Percussion/Palpation: abdomen soft; abdomen nontender Musculoskeletal: Extremities: strength 5/5 throughout Skin: no rashes, warm and dry Psychiatric: Orientation: alert and oriented x 3 Speech: normal rate/rhythm/volume of speech Insight: + limited insight (Limited recall) Results & Data Vital Signs (Past 12 Hours) Vital Signs Temp Pulse Resp BP Pulse Ox O2 Del Method 04/26/24 09:56 66 18 97/63 L 95 Room Air 04/26/24 09:48 Room Air 04/26/24 07:09 36.4 C L 69 18 104/70 93 Room Air 04/26/24 05:18 37 C 67 18 116/70 95 Room Air 04/25/24 22:43 36.4 C L 61 18 116/62 96 Room Air
--- NOTE | 2024-04-26 12:10 | Fluoroscopy Report ---
FL video swallow CLINICAL HISTORY: 78 years-old Male with assess for silent aspiration. This patient with possible as piration TECHNIQUE: Video fluoroscopic evaluation of swallowing was performed in the AP and lateral projection s by the speech pathology staff. The patient is fed varying consistencies of barium. FLUOROSCOPY TIME: 1.36 minutes. 2822 images were obtained. 6.53 mGy COMPARISON STUDY: Barium swallow study 10/31/2023 FINDINGS: Silent aspiration with thin liquid barium. Vallecular retention noted on the majority of th e study. Esophageal dysmotility with decreased emptying and retention redemonstrated. IMPRESSION: 1. Silent aspiration with thin liquid barium. 2. Please see the speech pathologist report for detailed findings and recommendations. 3. Esophageal dysmotility with retention and decreased emptying redemonstrated, better evaluated on t he 10/31/2023 exam. ACT 112: Negative or not required by law. Electronically signed by: Arturo Osorio M.D. 04/26/2024 12:09 PM
--- NOTE | 2024-04-26 14:42 | Hospitalist Progress Note ---
Date of Service April 26, 2024 Assessment & Plan (1) Hypotension: Plan 78-year-old male with PMH of PE/A-fib on Coumadin, hypertrophic cardiomyopathy, HTN, CAD, PVD, HTN, ESRD on PD, prostate cancer status post surgery, MGUS, chronic anemia [baseline hemoglobin of 10-11], past tobacco abuse presented to the ED with complaint of cough for 2 days, productive of clear sputum, feeling progressively weak for about the same duration. Patient does report occasional choking on food. Patient denies chest pain or abdominal pain or febrile illness or sore throat or blood in stool. Patient reports falling at home yesterday by missing a step 2/2 weakness, reports he did not hit head. In the ED he was noted to be in rapid A-fib with heart rate in 140s. He is being managed for the following: A-fib with RVR Hypotension Hypertrophic cardiomyopathy Elevated troponin--demand ischemia secondary to above in setting of CKD EKG on admission showed wide QRS tachycardia with bifascicular block Evaluated by cardiology during the hospitalization Continue metoprolol succinate 50 mg twice a day Coumadin resumed for anticoagulation on 04/24/2024 No IV heparin bridge given recent GI bleed; will give 5 mg today as INR continues to be low. Possible Pneumonia Likely due to Aspiration --CT Chest:Dependent airspace disease at the lung bases right greater than left. Findings may be due in part to compressive atelectasis, sequela of infection/aspiration changes are suspected given debris within the right mainstem bronchus extending to multiple right lower lobe branches. -- BioFire negative Continue Unasyn, doxycycline Aspiration precautions VFSS reviewed; silent aspiration with thin liquid barium; speech recommends regular diet. H/O severe esophageal dysmotility Follows with [facility] gastroenterology as outpatient High risk for aspiration Aspiration precautions Needs follow-up with GI/Dr. العلي on discharge Hypokalemia Replete electrolytes as needed Monitor Mechanical Fall Fall precautions PT OT Prediabetes HbA1c 6.4 Counseled dietary changes ESRD on PD: Nephrology consult to assist with PD Other chronic medical conditions: Continue with/resume home meds as and when able. H/O PE/A-fib on Coumadin, INR therapeutic. Risks Vs benefits explained to patient. Patient agrees to resume Coumadin H/O GI bleed S/P polypectomy, h/o diverticulosis, internal hemorrhoids H/O CAD/PVD as per records Prostate cancer S/P surgery Chronic anemia, Hb at baseline Past tobacco abuse. DVT Px: Coumadin CODE STATUS Full code Please note the above document was generated using voice recognition software. It may contain grammatical, syntax or spelling errors. Any formal questions or concerns about the content, text or information contained within the body of this dictation should be directly addressed to the provider for clarification Admission and Anticipated Discharge Date Admission Date: April 22, 2024 Subjective Patient seen and examined at bedside He is lying on the bed comfortably; not in distress He denies fever, chills, chest pain, shortness of breath or abdominal pain. Review of Systems Review of Systems: All systems reviewed & are unremarkable except as noted in Subjective Physical Exam Physical Exam: Physical Exam: Vitals signs as noted above General Appearance:Moderately built and nourished, no apparent distress Head: normocephalic, Atraumatic Eyes: normal inspection, EOMI Neck: supple, Trachea midline Respiratory/Chest: Normal breath sounds, CTA, No accessory muscle use Cardiovascular: S1, S2, + murmur Abdomen/GI:Soft, Non tender, Bowel sounds present Extremities/Musculoskeletal:normal inspection, B// LE trace edema Neurologic/Psych:AAOX3, grossly no focal neurological deficits Skin: normal color, warm Results & Data Results & Data Vital Signs (Past 12 Hours) Vital Signs Temp Pulse Pulse Resp BP Pulse Ox O2 Del Method 04/26/24 14:22 36.5 C 69 17 127/74 92 Room Air 04/26/24 11:01 36.6 C 68 18 107/68 95 Room Air 04/26/24 09:56 66 18 97/63 L 95 Room Air 04/26/24 09:48 Room Air 04/26/24 08:00 68 04/26/24 07:09 36.4 C L 69 18 104/70 93 Room Air 04/26/24 05:18 37 C 67 18 116/70 95 Room Air
[2024-04-26] MEDS: WARFARIN SOD 5 MG TAB PO ONE (15:20)
[2024-04-27 08:41] LABS: BUN Creatinine Ratio 3.8 (10-20); Creatinine Clr Calc Pharmacy 9.9 ml/min; Est GFR (African American) 8.2 ml/min; Est GFR (Non-African American) 7.1 ml/min; Potassium 3.1 mmol/L (3.5-5.1)
[2024-04-27 08:43] LABS: INR 1.7 (0.9-1.1); Prothrombin Time 17.6 Seconds (9.0-12.0)
--- NOTE | 2024-04-27 10:15 | Dialysis Progress Note ---
Date of Service April 27, 2024 Assessment & Plan Admission and Anticipated Discharge Date Admission Date: April 22, 2024 Subjective Assessment & Plan (1) ESRD on peritoneal dialysis: Plan: Peritoneal dialysis patient at [facility] with assistance from his ex- and son. Patient unable to perform his own treatments. He missed PD 04/21 (night of admission) which may along with the heart rhythm issues contribute to his mild and asymptomatic lower extremity swelling. - contamination event 04/22 > addressed; no e/o infection - K improved today after supplement yesterday Ensure daily bowel movement Cont 1.8 L fluid limit and order that protein shakes do not count towards this limit If he is not discharged, For tonight we will do 12 hrs of tx --5 exchanges in 12 hrs mixed 4.25% and 2.5%. we do have 4.25% supply now. (2) Atrial flutter with rapid ventricular response: Plan: Remains in sinus rhythm; cardiology notes prolonged QT > recommends change from amio to metoprolol LA bid; of note, pt had trouble tolerating BB in past d/t symptomatic hypotension but will monitor for this rhythm /rate control as per cardiology and primary service INR 1.5: cardiology recommends resume anticoagulation today in this patient with history of pulmonary emboli and a fall Subjective Seen for PD. No issues with PD overnight. 850 ml UF done. less cough and wants to walk. Denies shortness of breath, nausea vomiting, abdominal pain, issues with PD exchanges. States he is moving his bowels once at least daily and sometimes twice. Multiple issues with video swallow test Review of Systems Review of Systems: All systems reviewed & are unremarkable except as noted in Subjective Physical Exam Constitutional: well developed (resting quietly in bed when I enter but wakes up fully), well nourished and cooperative; no acute distress Eyes: EOM intact bilaterally ENMT: Ears: no external ear abnormality Nose: no external nose abnormality Mouth: + dry oral mucous membranes Neck: no nuchal rigidity Respiratory: normal respiratory effort; no cough Auscultation: + diminished lung sounds Cardiovascular: Rate/Rhythm: regular rate and regular rhythm Extremities: + edema (R leg proximal 2+ and 1+ pretibial right lower extremity) Gastrointestinal (Abdomen): Inspection/Auscultation: abdomen normal to inspection (PD catheter present) and normal bowel sounds; abdomen not distended Percussion/Palpation: abdomen soft; abdomen nontender Musculoskeletal: Extremities: strength 5/5 throughout Skin: no rashes, warm and dry Psychiatric: Orientation: alert and oriented x 3 Speech: normal rate/rhythm/volume of speech Insight: + limited insight (Limited recall) Results & Data Vital Signs (Past 12 Hours) Vital Signs Temp Pulse Pulse Resp BP Pulse Ox O2 Del Method 04/27/24 09:50 63 04/27/24 08:18 36.6 C 70 18 04/27/24 07:20 36.6 C 70 18 126/68 93 Room Air 04/27/24 02:40 36.6 C 65 18 111/75 94 Room Air 04/26/24 22:48 36.6 C 58 L 16 125/67 95 Room Air 04/26/24 22:17 67
--- NOTE | 2024-04-27 14:32 | Hospitalist Progress Note ---
Date of Service April 27, 2024 Assessment & Plan (1) Hypotension: Plan 78-year-old male with PMH of PE/A-fib on Coumadin, hypertrophic cardiomyopathy, HTN, CAD, PVD, HTN, ESRD on PD, prostate cancer status post surgery, MGUS, chronic anemia [baseline hemoglobin of 10-11], past tobacco abuse presented to the ED with complaint of cough for 2 days, productive of clear sputum, feeling progressively weak for about the same duration. Patient does report occasional choking on food. Patient denies chest pain or abdominal pain or febrile illness or sore throat or blood in stool. Patient reports falling at home yesterday by missing a step 2/2 weakness, reports he did not hit head. In the ED he was noted to be in rapid A-fib with heart rate in 140s. He is being managed for the following: A-fib with RVR Hypotension Hypertrophic cardiomyopathy Elevated troponin--demand ischemia secondary to above in setting of CKD EKG on admission showed wide QRS tachycardia with bifascicular block Evaluated by cardiology during the hospitalization Continue metoprolol succinate 50 mg twice a day Coumadin resumed for anticoagulation on 04/24/2024 No IV heparin bridge given recent GI bleed; follow INR Possible Pneumonia Likely due to Aspiration --CT Chest:Dependent airspace disease at the lung bases right greater than left. Findings may be due in part to compressive atelectasis, sequela of infection/aspiration changes are suspected given debris within the right mainstem bronchus extending to multiple right lower lobe branches. -- BioFire negative Continue Unasyn, doxycycline, total of 7 days Aspiration precautions VFSS reviewed; silent aspiration with thin liquid barium; speech recommends regular diet. H/O severe esophageal dysmotility Follows with [facility] as outpatient High risk for aspiration Aspiration precautions Needs follow-up with GI/Dr. العلي on discharge Hypokalemia Replete electrolytes as needed Monitor Mechanical Fall Fall precautions PT OT Prediabetes HbA1c 6.4 Counseled dietary changes ESRD on PD: Nephrology consult to assist with PD Other chronic medical conditions: Continue with/resume home meds as and when able. H/O PE/A-fib on Coumadin, INR therapeutic. Risks Vs benefits explained to patient. Patient agrees to resume Coumadin H/O GI bleed S/P polypectomy, h/o diverticulosis, internal hemorrhoids H/O CAD/PVD as per records Prostate cancer S/P surgery Chronic anemia, Hb at baseline Past tobacco abuse. DVT Px: Coumadin CODE STATUS Full code Disposition Patient lives alone and would like to go back home. However, family is concerned about patient's wellbeing. Communicated with case management. Repeat PT OT eval in progress. Disposition based on PT OT eval, family discussion Please note the above document was generated using voice recognition software. It may contain grammatical, syntax or spelling errors. Any formal questions or concerns about the content, text or information contained within the body of this dictation should be directly addressed to the provider for clarification Admission and Anticipated Discharge Date Admission Date: April 22, 2024 Subjective Patient seen and examined at bedside. Comfortable; not in distress. Denies fever, chills, chest pain, shortness of breath, abdominal pain or urinary symptoms. No significant overnight events Review of Systems Review of Systems: All systems reviewed & are unremarkable except as noted in Subjective Physical Exam Physical Exam: Physical Exam: Vitals signs as noted above General Appearance:Moderately built and nourished, no apparent distress Respiratory/Chest: Normal breath sounds, CTA, No accessory muscle use Cardiovascular: S1, S2, + murmur Abdomen/GI:Soft, Non tender, Bowel sounds present Extremities/Musculoskeletal:normal inspection, B// LE trace edema Neurologic/Psych:AAOX3, grossly no focal neurological deficits Skin: normal color, warm Results & Data Results & Data Vital Signs (Past 12 Hours) Vital Signs Temp Pulse Pulse Resp BP Pulse Ox O2 Del Method 04/27/24 10:59 36.7 C 75 18 131/66 93 Room Air 04/27/24 09:50 63 04/27/24 08:18 36.6 C 70 18 04/27/24 07:20 36.6 C 70 18 126/68 93 Room Air 04/27/24 02:40 36.6 C 65 18 111/75 94 Room Air
[2024-04-27] MEDS: WARFARIN SOD 2.5 MG TAB PO SCH (15:39)
[2024-04-28 07:43] LABS: Basophils # (auto) 0.09 K/uL (0.00-0.20); Eosinophils # (auto) 0.49 K/uL (0.00-0.50); Eosinophils % (auto) 5.3 %; Hematocrit (blood only) 32.8 % (42.0-52.0); Hemoglobin 10.8 g/dl (14.0-18.0); Immature Granulocytes # (auto) 0.04 K/uL (0.01-0.20); Immature Granulocytes % (auto) 0.4 %; Lymphocytes # (auto) 0.98 K/uL (1.20-3.40); Lymphocytes % (auto) 10.6 %; Mean Corpuscular Hemoglobin 29.3 pg (25.0-34.0); Mean Corpuscular Hgb Conc 32.9 g/dL (32.0-36.0); Mean Corpuscular Volume 89.1 fL (80.0-100.0); Mean Platelet Volume 10.5 fL (9.4-12.4); Monocytes # (auto) 1.14 K/uL (0.11-0.59); Monocytes % (auto) 12.4 %; Neutrophils # (auto) 6.49 K/uL (1.40-6.50); Neutrophils % (auto) 70.3 %; Platelet Count 280 K/uL (130-400); RDW Coefficient of Variation 14.7 % (11.5-14.5); RDW Standard Deviation 47.9 fL (36.4-46.3); Red Blood Count 3.68 M/uL (4.70-6.10); White Blood Count 9.23 K/ul (4.8-10.8)
[2024-04-28 07:57] LABS: BUN Creatinine Ratio 4.1 (10-20); Calcium 8.2 mg/dl (8.6-10.3); Creatinine Clr Calc Pharmacy 10.2 ml/min; Est GFR (African American) 8.6 ml/min; Est GFR (Non-African American) 7.4 ml/min; Potassium 3.2 mmol/L (3.5-5.1)
[2024-04-28 08:07] LABS: INR 1.8 (0.9-1.1); Prothrombin Time 18.3 Seconds (9.0-12.0)
--- NOTE | 2024-04-28 10:42 | Dialysis Progress Note ---
Date of Service April 28, 2024 Assessment & Plan Admission and Anticipated Discharge Date Admission Date: April 22, 2024 Subjective Subjective Assessment & Plan (1) ESRD on peritoneal dialysis: Plan: Peritoneal dialysis patient at [facility] with assistance from his ex- and son. Patient unable to perform his own treatments. He missed PD 04/21 (night of admission) which may along with the heart rhythm issues contribute to his mild and asymptomatic lower extremity swelling. - contamination event 04/22 > addressed; no e/o infection - K improved today after supplement yesterday Ensure daily bowel movement Cont 1.8 L fluid limit and order that protein shakes do not count towards this limit. If he is not discharged, For tonight we will do 12 hrs of tx --5 exchanges in 12 hrs mixed 4.25% and 2.5%. patient and seems confused about Discharge planning. (2) Atrial flutter with rapid ventricular response: Plan: Remains in sinus rhythm; cardiology notes prolonged QT > recommends change from amio to metoprolol LA bid; of note, pt had trouble tolerating BB in past d/t symptomatic hypotension but will monitor for this rhythm /rate control as per cardiology and primary service INR 1.5: cardiology recommends resume anticoagulation today in this patient with history of pulmonary emboli and a fall Subjective Seen for PD. No issues with PD overnight. 2050 ml UF done. less cough and wants to walk. Denies shortness of breath, nausea vomiting, abdominal pain, issues with PD exchanges. States he is moving his bowels once at least daily and sometimes twice. Multiple issues with video swallow test Review of Systems Review of Systems: All systems reviewed & are unremarkable except as noted in Subjective Physical Exam Constitutional: well developed (resting quietly in bed when I enter but wakes up fully), well nourished and cooperative; no acute distress Eyes: EOM intact bilaterally ENMT: Ears: no external ear abnormality Nose: no external nose abnormality Mouth: + dry oral mucous membranes Neck: no nuchal rigidity Respiratory: normal respiratory effort; no cough Auscultation: + diminished lung sounds Cardiovascular: Rate/Rhythm: regular rate and regular rhythm Extremities: + edema (R leg proximal 2+ and 1+ pretibial right lower extremity) Gastrointestinal (Abdomen): Inspection/Auscultation: abdomen normal to inspection (PD catheter present) and normal bowel sounds; abdomen not distended Percussion/Palpation: abdomen soft; abdomen nontender Musculoskeletal: Extremities: strength 5/5 throughout Skin: no rashes, warm and dry Psychiatric: Orientation: alert and oriented x 3 Speech: normal rate/rhythm/volume of speech Insight: + limited insight (Limited recall) Results & Data Vital Signs (Past 12 Hours) Vital Signs Temp Pulse Pulse Pulse Resp BP Pulse Ox 04/28/24 09:20 69 04/28/24 08:33 36.4 C L 58 L 18 04/28/24 07:48 57 L 04/28/24 07:17 36.4 C L 58 L 18 105/61 93 04/28/24 02:39 36.8 C 68 18 112/69 92 O2 Del Method 04/28/24 09:20 04/28/24 08:33 04/28/24 07:48 04/28/24 07:17 Room Air 04/28/24 02:39 Room Air
--- NOTE | 2024-04-28 15:24 | Hospitalist Progress Note ---
Date of Service April 28, 2024 Assessment & Plan (1) CAP (community acquired pneumonia): (2) Acute on chronic anemia: Plan: Due to end-stage renal disease (3) Atrial fibrillation with RVR: Plan: Converted to sinus rhythm (4) Anticoagulant long-term use: (5) Hypertrophic cardiomyopathy: (6) ESRD on peritoneal dialysis: (7) Paroxysmal A-fib: Plan Patient completing course of antibiotics for commune acquired pneumonia Continue peritoneal dialysis as directed by hemodialysis Blood pressure and heart rate appears to be controlled on current medical regimen, continue Continue current anticoagulation with warfarin, monitor INR Care coordination working with family, coordinated home health care Anticipate discharge tomorrow Phone update to ex- Dyana, she knows to anticipate discharge tomorrow Admission and Anticipated Discharge Date Admission Date: April 22, 2024 Subjective Patient feeling improved. Reports that his ex- really does manage a lot of his medical care. Physical Exam Physical Exam: Constitutional: Alert HEENT: Mucous membranes moist. Lungs: Clear to auscultation, decreased, no wheezes rales or rhonchi CV: S1-S2, regular Abdomen: Soft, nontender, PD catheter ,Extremities: No significant edema Neuro: No focal deficits Psych: Cooperative, normal mood Results & Data Results & Data Vital Signs (Past 12 Hours) Vital Signs Temp Pulse Pulse Pulse Resp BP Pulse Ox 04/28/24 15:07 36.8 C 77 18 130/74 94 04/28/24 11:17 36.4 C L 73 18 102/63 99 04/28/24 09:20 69 04/28/24 08:33 36.4 C L 58 L 18 04/28/24 07:48 57 L 04/28/24 07:17 36.4 C L 58 L 18 105/61 93 O2 Del Method 04/28/24 15:07 Room Air 04/28/24 11:17 Room Air 04/28/24 09:20 04/28/24 08:33 04/28/24 07:48 04/28/24 07:17 Room Air Diagnostic Findings Reviewed imaging, laboratory and diagnostic studies. Pertinent findings as below. Hemoglobin 10.8, stable INR 1.8 Potassium 3.2
[2024-04-28] MEDS: WARFARIN SOD 4 MG TAB PO SCH (16:46)
[2024-04-29 06:39] LABS: BUN Creatinine Ratio 4.4 (10-20); Calcium 8.2 mg/dl (8.6-10.3); Creatinine Clr Calc Pharmacy 10.6 ml/min; Est GFR (Non-African American) 7.8 ml/min
[2024-04-29 07:04] LABS: INR 1.5 (0.9-1.1); Prothrombin Time 15.9 Seconds (9.0-12.0)
[2024-04-29] MEDS: POTASSIUM CHLORIDE CRTAB 20 MEQ TABCR PO STA (09:10)
--- NOTE | 2024-04-29 12:31 | Discharge Summary ---
Discharge Summary Date of Service April 29, 2024 Principal Dx & Hospital Course #1 = Principal Diagnosis (1) CAP (community acquired pneumonia): (2) Acute on chronic anemia: Due to end-stage renal disease (3) Anticoagulant long-term use: (4) Hypertrophic cardiomyopathy: (5) ESRD on peritoneal dialysis: (6) Paroxysmal A-fib: Plan Patient presented to the emergency room with cough and increasing 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 Also noted to be in atrial fibrillation with rapid ventricular response. Patient was admitted to the hospital. He is given antibiotics to cover presumed aspiration pneumonia. Cardiology consultation was obtained due to his atrial fibrillation. Made some adjustments in his beta-katerina. I also discontinued his amiodarone since it was not keeping him in sinus rhythm. He was transitioned to metoprolol. With treatment of his infection patient's rapid ventricular response resolved and patient converted to sinus rhythm. He was continued on his usual anticoagulation with warfarin. Patient continued on his usual peritoneal dialysis with the orders being managed by nephrology consultation. Throughout the course of his hospitalization the patient's shortness of breath improved. He no longer required any oxygen supplementation. He has she completed a course of antibiotics here in the hospital. Did undergo video swallow which did confirm some silent aspiration. Speech therapy did not recommend any significant dietary changes but did recommend aspiration Precautions. Patient was seen by physical therapy and Occupational Therapy. His strength slowly improved. Proved to the point where felt as though he could return home they did explore possible rehab placement. Ultimately was arranged for the patient to go home with home health care. Family will be supportive as well. He will continue his peritoneal dialysis at home as managed by nephrology. He will follow-up with cardiology outpatient. Continue his new metoprolol beta-katerina. Continue his chronic anticoagulation with warfarin. And he will get an INR done on Friday per his usual process through home health care. Notes For Next Care Provider Medication Changes From Visit Coreg discontinued Amiodarone discontinued Metoprolol new beta-katerina Admission HPI Per Admitting Provider History obtained from patient and records. Medical history significant for PE/A-fib on Coumadin, hypertrophic cardiomyopathy, hypertension, CAD, PVD, hypertension, ESRD on PD, prostate cancer status post surgery, MGUS, chronic anemia (baseline hemoglobin 10-11), past tobacco abuse. Recent confinement April 13 to 2023 for LGIB. Diverticulosis, internal hemorrhoids and polyps on colonoscopy. Patient Coumadin resumed on discharge. Patient increasingly weak at home the last few days. Cough symptoms productive of clear sputum. Not sure about sick contacts. Denies aspiration or choking episodes. Fair appetite. Patient denies chest pain, SOB, abdominal pain, GI bleed. Patient fell at home yesterday after missing a step from weakness. Had to crawl to his bed. Son checked on him. SBP noted to be 70s at home. EMS called by patient's son. Patient noted to be in rapid A-fib heart rate 140s. IV amiodarone initiated at the ER. 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 Lungs: Clear to auscultation, decreased, no wheezes rales or rhonchi CV: S1-S2, regular Abdomen: Soft, nontender, nondistended, PD catheter Extremities: No significant edema Neuro: No focal deficits Psych: Cooperative, normal mood Updated Medication List Medication Instructions Recorded Confirmed Type docusate sodium 100 mg capsule 100 mg PO BID 10/13/23 04/21/24 History (Stool Softener) V-8 Low Sodium 1 can PO QAM 04/13/24 04/21/24 History amiodarone 100 mg tablet 100 mg PO QAM 04/13/24 04/21/24 History carvedilol 6.25 mg tablet 3.125 mg PO QPM 04/13/24 04/21/24 History cholecalciferol (vitamin D3) 50 50 mcg PO AMPM 04/13/24 04/21/24 History mcg (2,000 unit) tablet (Vitamin D3) polyethylene glycol 3350 17 8.5 g PO QAM 04/13/24 04/21/24 History gram/dose oral powder (Miralax) vitamin B complex-vitamin C-folic 1 tab PO QAM 04/13/24 04/21/24 History acid 0.8 mg tablet (Renal-Igor) warfarin 5 mg tablet 2.5 mg PO QPM 04/13/24 04/21/24 History metoprolol succinate 50 mg 50 mg PO BID 30 days #60 tabs 04/29/24 Rx tablet,extended release 24 hr warfarin 3 mg tablet 3 mg PO DAILY #30 tabs 04/29/24 Rx Hospital Stay Data Consultations 04/22/24 00:22 ED Decision to Admit Stat 04/22/24 05:04 Consult Cardiology Routine Consult Nephrology Routine 04/22/24 08:14 Consult General Surgery Routine Diagnostic Imagining Performed 04/22/24 03:57 CT chest diagnostic wo con Stat 04/22/24 08:30 CT Abd and Pelvis [CT abd pelvis IV con only] Stat 04/26/24 10:00 FL video swallow Routine Reviewed imaging, laboratory and diagnostic studies. Pertinent findings as below. INR 1.5 Potassium 3.0, repleted prior to discharge Creatinine 6.3, on chronic peritoneal dialysis Hemoglobin 10.8, baseline Blood cultures no growth Peritoneal dialysis fluid culture no growth Pending Results Patient Have Any Pending Studies at Discharge: No Discharge Instructions Given to Patient (Per Discharging Provider) Continue your peritoneal dialysis as at home Continue to work with home health care Get INR per your usual process checked on Friday Home Health Attestation I certify that this patient is under my care and that I, or a physicians assistant tennis coach working with me, had a face to-face encounter that meets the [facility] [id number] encounter requirements with this patient. The encounter with the patient was in whole, or in part, for the following medical condition, which is the primary reason for home health care (list medical condition): I certify that, based on my findings, the following services are medically necessary home health services: My clinical findings support the need for the above services because: OT Assess ADL Status and Restore Function w ADLs PT Assessment for Endurance / Balance / Strength Skilled Nsg Assessment Further, I certify that my clinical findings support that this patient is homebound (i.e. absences from home require considerable and taxing effort and are for medical reasons or scientologist services or infrequently or of short duration when for other reasons) because: Certification for Home Health Services: Based on the above findings, I certify that this patient is confined to the home and needs intermittent [facility] care, physical therapy and/or speech therapy or continues to need occupational therapy. The patient is under my care, and I have initiated the establishment of the plan of care. This patient will be followed by a physician who will periodically review the plan of care. Total Time Total Time Spent Total Time Spent (In Minutes): 38
--- NOTE | 2024-04-29 13:51 | Dialysis Progress Note ---
Date of Service April 29, 2024 Assessment & Plan Admission and Anticipated Discharge Date Admission Date: April 22, 2024 Subjective Assessment & Plan (1) ESRD on peritoneal dialysis: Plan: Peritoneal dialysis patient at [facility] with assistance from his ex- and son. Patient unable to perform his own treatments. He missed PD / (night of admission) which may along with the heart rhythm issues contribute to his mild and asymptomatic lower extremity swelling. contamination event 04/22 > addressed; no e/o infection K improved today after supplement yesterday Ensure daily bowel movement Cont 1.8 L fluid limit and order that protein shakes do not count towards this limit. (2) Atrial flutter with rapid ventricular response: Plan: Remains in sinus rhythm; cardiology notes prolonged QT > recommends change from amio to metoprolol LA bid; of note, pt had trouble tolerating BB in past d/t symptomatic hypotension but will monitor for this rhythm /rate control as per cardiology and primary service INR 1.5: cardiology recommends resume anticoagulation today in this patient with history of pulmonary emboli and a fall Subjective Seen for PD. No issues with PD overnight. only 305 ml UF done last night even though RX is same. Denies shortness of breath, nausea vomiting, abdominal pain, issues with PD exchanges. States he is moving his bowels once at least daily and sometimes twice. Multiple issues with video swallow test Review of Systems Review of Systems: All systems reviewed & are unremarkable except as noted in Subjective Physical Exam Constitutional: well developed (resting quietly in bed when I enter but wakes up fully), well nourished and cooperative; no acute distress Eyes: EOM intact bilaterally ENMT: Ears: no external ear abnormality Nose: no external nose abnormality Mouth: + dry oral mucous membranes Neck: no nuchal rigidity Respiratory: normal respiratory effort; no cough Auscultation: + diminished lung sounds Cardiovascular: Rate/Rhythm: regular rate and regular rhythm Extremities: + edema (R leg proximal 2+ and 1+ pretibial right lower extremity) Gastrointestinal (Abdomen): Inspection/Auscultation: abdomen normal to inspection (PD catheter present) and normal bowel sounds; abdomen not distended Percussion/Palpation: abdomen soft; abdomen nontender Musculoskeletal: Extremities: strength 5/5 throughout Skin: no rashes, warm and dry Psychiatric: Orientation: alert and oriented x 3 Speech: normal rate/rhythm/volume of speech Insight: + limited insight (Limited recall) Results & Data Vital Signs (Past 12 Hours) Vital Signs Temp Pulse Pulse Resp BP Pulse Ox O2 Del Method 04/29/24 11:26 36.7 C 66 18 108/65 94 Room Air 04/29/24 10:48 60 04/29/24 08:23 36.5 C 60 18 04/29/24 06:56 36.5 C 59 L 17 109/70 93 Room Air 04/29/24 02:17 36.8 C 57 L 16 107/66 95 Room Air
== END 2024-04-29 16:06 | disposition home health service (06) | DRG 193 ==
LOC: ED 22:26 → 2S 04-22 04:42 → SUATTDRO 04-22 04:55 → 2S 04-22 04:55

== ENCOUNTER 2024-10-16 13:07 | Inpatient (IN) ==
--- OUTSIDE RECORDS SUMMARY | 2024-10-16 13:15 | External Medical Summary | Summary of Care ---
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 Name Role Phone Debbie Arango MD Primary Care Provider Reason for Visit * Reason Onset Date Comments Pre Procedure Assessment 07/13/2024 Encounter Details Date Type Department Care Team (Late st Contact Info) Description 07/13/2024 Telephone Gastroenterology, [place] [address] [place] [address] Jose Ramon Morgan MD [address] [place], [place] [id number] Pre Procedure Assessment Allergies No known active allergiesdocumented as of this encounter (statuses as of 10/12/2024) Medications Nutra/Shake Oral LiquidIndication s:CKD (chronic kidney disease) stage 5, GFR less than 15 ml/min (HCC) TAKE ONE BY MOUTH EVERY DAY TO SUPPLEMENT NUTRIENT INTAKE 3 Active Renal Vitamin 0.8 MG Oral TabletIndication s:CKD (chronic kidney disease) stage 5, GFR less than 15 ml/min (HCC) Take 1 Tablet by mouth in the morning. 90 Tablet 3 3 Active Gentamicin Sulfate 0.1 % External Cream Apply topically to affected area daily. Apply to exit site after treatment daily. 30 g 3 4 Active Docusate Sodium 100 MG Oral Capsule (Colace) Take 1 Capsule by mouth in the morning. Pt takes this once daily . Active Vitamin D 50 MCG (2000 UT) Oral Capsule Take 2,000 Units by mouth in the morning. Active Metoprolol Succinate ER 25 MG Oral Tablet Extended Release 24 Hour (toPROL XL)Indications:P aroxysmal atrial fibrillation (HCC) Take 1 Tablet by mouth in the morning and 1 Tablet before bedtime. May take an additional 25 mg if experiencing recurrent episodes of atrial fibrillation.. 200 Tablet 3 4 Active Additional Information Patient taking differently:25 mg OralHS, (No instructions reported), Reported on 09/20/2024 Hospital, Clinic, or Other Facility Administered Medication Ordered Dose Route Frequency Start Date End Date Status Albuterol Sulfate (Proventil) (5 MG/ML) 0.5% *conc* inhalation solution 2.5 mgIndications:Dyspnea and respiratory abnormalities,Chronic cough 2.5 mg NEBULIZER PRN 05/31/2024 05/31/2025 Active Albuterol Sulfate (Proventil) (2.5 MG/3ML) 0.083% inhalation solution 2.5 mgIndications:Dyspnea and respiratory abnormalities,Chronic cough 2.5 mg NEBULIZER PRN 05/31/2024 05/31/2025 Active documented as of this encounter (statuses as of 10/12/2024) Active Problems Problem Noted Date Diagnosed Date ESRD on peritoneal dialysis 08/18/2024 Achalasia 08/18/2024 Post-operative state 08/18/2024 Post-operative pain 08/18/2024 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 Paroxysmal atrial flutter 06/28/2024 Hypertrophic cardiomyopathy 06/28/2024 CKD (chronic kidney disease) stage 5, GFR less than 15 ml/min 05/21/2023 Peripheral vascular disease with claudication HTN, goal below 130/80 05/21/2023 documented as of this encounter (statuses as of 10/12/2024) Resolved Problems Problem Noted Date Diagnosed Date Resolved Date Encephalopathy acute 08/18/2024 10/31/2 024 documented as of this encounter (statuses as of 10/12/2024) Social History Tobacco Use Types Packs/Day Years Used Date Smoking Tobacco: Former Cigars Smokeless Tobacco: Never Comments:3-4 Cigars per day Alcohol Use Standard Drinks/Week Comments Yes 0 (1 standard drink = 0.6 oz pur e alcohol) 4 mixed drinks per week Personal Safety Answer Date Recorded Do you feel unsafe or have concerns for your saf ety? No 08/18/2024 Do you have concerns for you r family's safety? (Household - for ages 0-17 years) Not on file 08/18/2024 Utilities Answer Date Recorded Do you have trouble paying y our heating, water, or electric bill? No 08/18/2024 Is your family able to pay t he heat, water, or electric bill? (Household - for ages 0-17 years) Not on file 08/18/2024 Does your family have access to good internet? (Household - for ages 0-17 years) Not on file 08/18/2024 Transportation Needs Answer Date Record ed Do you have trouble getting a ride to medical visits or work? (Adult - for ages 18 years and over) Not on file 08/18/2024 Does your family have a hard time getting a ride to doctors visits? (Household - for ages 0-17 years) Not on file 08/18/2024 Has lack of transportation k ept you from medical appointments, meetings, work, or from getting things needed for daily living? Check all that apply. No 08/18/2024 Do you (or your family) have trouble finding or paying for a ride (transportation)? (Household - for ages 0-17 years) Not on file 08/18/2024 Housing Stability Answer Date Recorded Do you currently live in a s helter or have no steady place to sleep at night? (Adult - for ages 18 years and over) Not on file 08/18/2024 Do you think you are at risk of becoming homeless? (Adult - for ages 18 years and over) Not on file 08/18/2024 Does your family worry about paying for your home or becoming homeless? (Household - for ages 0-17 years) Not on file 1 Are you homeless or worried that you might be in the future? No 08/18/2024 Are you (or your family) jose eless or worried that you might be in the future? (Household - for ages 0-17 years) Not on file Food Insecurity Answer Date Recorded Do you need food for this week? No 08/18/2024 Are you able to get enough f ood for your family? (Household - for ages 0-17 years) Not on file 08/18/2024 Does your family need food t his week? (Household - for ages 0-17 years) Not on file 08/18/2024 Do you always have enough fo od for your family? (Household - for ages 0-17 years) Not on file 08/18/2024 Sex and Gender Information Value Date Recorded Sex Assigned at Not on file Legal Sex Male 11:12 AM EDT Gender Identity Male 04/01/2023 4:40 PM EDT Sexual Orientation Straight 04/01/2023 4: 40 PM EDT documented as of this encounter Miscellaneous Notes * Telephone Encounter - Jania Mike RN - 07/13/2024 1:16 PM EDT Spoke with son. Anesthesia assessment information obtained from previous clinic visit(01/2024 [place]). Instructed patient on which medications to take the day of the procedure, metoprolol, amiodarone, midodrine with a few sips of water the morning of the procedure.Son will check with [facility] about stopping pt's coumadin.Patient instructed to not eat after midnight. May have clear liquids up to 2 hours prior to procedure.Verbalized understanding.General anesthesia reviewed with patient andor family. Patient/ family verbalized understanding of information given. Patient instructed to not smoke, use any smokeless tobacco, chew any gum or have any candy/lozengers the morning of his procedure. 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 Patient's son voiced no other concerns or questions at this time. documented in this encounter Plan of Treatment Upcoming Encounters Date Type Department Care Team (Late st Contact Info) Description 02/08/2025 11:30 AM EDT Office Visit Cardiology, [facility] [address] [facility] [place] [id number] Nannette Gonzales CRNP [address] [facility] [place] [address] 03/25/2025 11:20 AM EDT Office Visit Neurology [facility] [address] [place] [address] Carlos Jiménez, DO [address] [facility] [place] [address] 04/18/2025 11:00 AM EDT Office Visit Cardiology, [facility] [address] [facility] [place] [address] Rick Tan, DO [address] [facility] [place] [address] 07/11/2025 3:20 PM EDT Office Visit Pulmonary Medicine, [facility] [address] [facility] [place] [address] [facility]oyola [facility] [address] [facility] [address] Health Maintenance Due Date Last Done Comments Depression Screening 1957 Alpha-1 Antitrypsin 1964 COVID-19 Vaccine ( - 2023-2 5 season) 2024 DTap/Tdap Vaccines (2 - Td o r Tdap) 09/01/2034 09/01/2024 Pneumococcal Vaccine: 65+ Years Completed 05/10/2019, 01/15/2018, 03/22/2013 Zoster Vaccines Completed 05/28/2021, 05/10/2019 Influenza Vaccine (FLU shot) Completed 09/15/2024 HPV (Gardasil) Vaccine Aged Out No lo nger eligible based on patient's age to complete this topic Hepatitis B Vaccine Aged Out No longe r eligible based on patient's age to complete this topic MENINGOCOCCAL (MENACTRA/MENVEO) Aged Out No longer eligible b ased on patient's age to complete this topic documented as of this encounter Medical Devices Not on filedocumented as of this encounter Advance Directives * Full Code (Latest Code Status on File) Date Activated Date Inactivated Comments 08/18/2024 5:00 PM 08/19/2024 6:57 PM This order reflects the patients wishes and were consensually agreed upon. Question Answer Comments Discussion of Advance Directives occurred with: Patient Care Teams Metal Spraying Machine Operator Relationship Specialty Start Date End Date Debbie Arango MD [address] [facility] [place] [address] PCP - General Internal Medicine 03/04/23 documented as of this encounter
--- OUTSIDE RECORDS SUMMARY | 2024-10-16 13:16 | External Medical Summary | Summary of Care ---
Author Name Unknown Organization [facility] Address [address] [place] [address] Phone [phone] Care Team Providers Care Oil And Gas Specialist Name Role Phone Debbie Arango MD Primary Care Provider Reason for Visit * Reason Comments Genetic Counseling * Evaluate & Treat - Unlimited Visits (Within 10 days (routine)) - Closed Specialty Diagnoses / Procedures Referred By Valarie stanley Referred To Contact Medical Genetics / Hematology Oncology Diagnoses Atypical atrial flutter (HCC) Rick Tan DO [address] [facility] [place] [address] Phone: tel: fax: Referral ID Status Reason Start Date Expiration Date V isits Requested Visits Authorized [id number] Closed Specialty Services Required 12/03/[phone] Encounter Details Date Type Department Care Team (Latest Contact Info) Description 09/15/2024 11:30 AM EST Telemedicine Cardiovascular Genetics, [facility] [address] [facility] [place] [address] Kalie Larson, MS [address] [facility] [place] [address] Hypertrophic cardiomyopathy (HCC)*; Paroxysmal atrial fibrillation (HCC); RBBB (right bundle branch block) Allergies No known active allergiesdocumented as of this encounter (statuses as of 09/15/2024) Medications Nutra/Shake Oral LiquidIndication s:CKD (chronic kidney [...] mg OralHS, (No instructions reported), Reported on 09/08/2024 Warfarin Sodium 5 MG Oral Tablet (Coumadin) Take 1 Tablet by mouth in the morning. OR DIRECTED BY THE COUMADIN. 4 Active Pantoprazole Sodium 40 MG Oral Tablet Delayed Release (Protonix) Take 1 Tablet by mouth in the morning and 1 Tablet before bedtime. 120 Tablet 08/19/2024 11:31 AM EDT 4 024 Active Metoprolol Tartrate 25 MG Oral Tablet (Lopressor) 1 Tablet as needed. May take 25 mg if experiencing recurrent episodes of atrial fibrillation. Active Midodrine HCl 2.5 MG Oral Tablet (Proamatine)Jelly cations:Hypotens ion Take 1 Tablet by mouth in the morning and 1 Tablet in the evening. May hold for systolic BP above 120. 180 Tablet 3 11/19/202 4 Active Additional Information Patient taking differently:2.5 mg Oral BID (0900, 1600),One tablet twice daily at 9:00am and 4:00pm. May hold for systolic BP above 120., Reported on 09/08/2024 Amiodarone HCl 200 MG Oral Tablet (Cordarone) Take 1 Tablet by mouth daily with breakfast. Active Hospital, Clinic, or Other Facility Administered Medication [...] as of this encounter (statuses as of 09/15/2024) Active Problems Problem Noted Date Diagnosed Date [...] as of this encounter (statuses as of 09/15/2024) Resolved Problems Problem Noted Date Diagnosed Date Resolved Date Encephalopathy acute 08/18/2024 024 documented as of this encounter (statuses as of 09/15/2024) Social History Tobacco Use Types Packs/Day Years [...] PM EDT documented as of this encounter Functional Status * Are you deaf or do you have serious difficulty hearing? Answer Date of Assessment Author Yes 08/18/2024 3:24 PM EDT Lilian Valverde RN * Are you blind or do you have serious difficulty seeing, even when wearing glasses? Answer Date of Assessment Author No 08/18/2024 3:24 PM EDT Lilian Valverde RN * Do you have serious difficulty walking or climbing stairs? (5 years old or older) Answer Date of Assessment Author Yes 08/18/2024 3:24 PM EDT Lilian Valverde RN * Do you have difficulty dressing or bathing? (5 years old or older) Answer Date of Assessment Author Yes 08/18/2024 3:24 PM EDT Lilian Valverde RN * Because of a physical, mental, or emotional condition, do you have difficulty doing errands alone such as visiting a doctors office or shopping? (15 years old or older) Answer Date of Assessment Author Yes 08/18/2024 3:24 PM EDT Lilian Valverde RN documented as of this encounter Mental Status * Because of a physical, mental, or emotional condition, do you have serious difficulty concentrating, remembering, or making decisions? (5 years old or older) Answer Entry Date Author Yes 08/18/2024 3:24 PM EDT Lilian Valverde RN documented in this encounter Patient Instructions * Patient Instructions* Kalie Larson MS - 09/15/2024 11:58 AM EST Images from the original note were not included. You met with Kalie Larson MS, [facility] on 09/15/2024 for a Cardiovascular Genetics Risk Assessment. TODAY'S SUMMARY If you have questions about your risk assessment, evaluation, testing process, or results, contact our clinic at [phone] or send a [employer] message. A copy of my note from today's visit will be available in [employer]. You agreed to complete genetic testing to learn whether you have a hereditary cardiovascular condition. Insurance Coverage: The laboratory will complete prior authorization for genetic testing. Please see below for more information from [employer]. Sample Collection: You will have 1 tube of blood drawn for this test. Please wait 2 business days before going to any [facility] lab to ensure your order has been signed. Lab order: Arrhythmia and Cardiomyopathy Comprehensive Panel Ordering Provider: Chadwick Arambula MD Results are expected in ~3 weeks from sample collection and will appear in the [employer] portal under "Test Results" I will contact you with your results by phone. If any significant findings are reported on your testing, we may recommend a follow up visit. You can request an electronic copy of your report through the laboratory's secure web-portal: [employer]/patients. Test reports and evaluation notes/summaries can be mailed upon request. For any genetic test, there are three types of results. 1. Negative Result: A mutation that causes increased risk for a specific cardiovascular condition was not found in you. In some cases, this result, means that we have not identified a cause (hereditary or otherwise) for your specific cardiovascular condition. 2. Positive Result: You were found to carry a genetic mutation that is associated with increased risk for the specific cardiovascular condition you and/or your family has. Based on the type of genetic mutation that was found, your doctor could use this information to determine an appropriate medical management plan, which may include increased cardiac screening, changes in medications, and/or prevention such as surgery. 3. Inconclusive Result (Variant of Uncertain Significance found): A change in one of the tested genes was detected, but we do not understand whether this specific change has an impact on cardiovascular disease risk. This means that the finding is equally likely to be benign (ie: no effect on cardiovascular risk) as it is to be disease-causing. VUS results are never used to guide management; rather, we treat them like as negative results until we learn more from the laboratory. Sometimes this can take years' time. Genetic Discrimination: "JAMES" (the Genetic Information Nondiscrimination Act of 2008) is a federallaw that protects you from discrimination based on your genetic information. It is illegal for yourhealth insurer to use family health history and/or genetic test results as a reason to deny you health insurance, or decide how much you pay for your health insurance. JAMES does not apply to life, disability and [id number]-[id number]-[id number] insurance. For more information, go to [employer] Sincerely, Kalie Larson MS, [facility] Licensed, Certified Genetic Counselor [facility] (P) [phone] | (E) [email or web address] documented in this encounter Progress Notes * Kalie Larson MS - 09/15/2024 11:30 AM EST Images from the original note were not included. [facility] Note Personal/Family History of Inherited Cardiovascular Disease [facility] Email: [email or web address] Name: Monster Samson Date: 09/15/2024 - 11:30 AM EST Present for consult: Monster Samson, son, Kalie Larson MS, [facility] Visit Type: Video. Patient location: HOME. I was not in a hospital or clinic location. After connecting through televideo, patient was verified with two unique identifiers. Patient (or authorized legal circulation representative) was then informed that this was a Telemedicine visit and being conducted confidentially over secure lines. Methods to assure confidentiality were taken. Patient acknowledged consent and understanding of privacy and security of the Telemedicine visit. The patient agreed to participate. A total of 11 minutes were spent in discussion with the patient through video. Reason for Visit Monster Samson is a 79 year old male who has been referred to the [facility] by Rick Tan DO due to their personal history of hypertrophic cardiomyopathy (HCM). During our visit, we reviewed their personal history of HCM, discussed risks for hereditary HCM, options for genetic testing, and the implications for screening and management for Monster Samson and their family members. Assessment Monster Samson has a personal history that is somewhat concerning for hereditary HCM. Plan Monster chose to pursue genetic testing for well-described genes associated with HCM and other heritable cardiomyopathies. A lab order was placed and Monster may go to any [facility] outpatient lab to initiate genetic testingat their convenience. After discussion of the risks, benefits, and limitations of testing, Monster Samson desires to pursue testing for HCM: [facility] Test Ordered: Arrhythmia and Cardiomyopathy Comprehensive Panel Genes: ABCC9, ACADVL, ACTC1, ACTN2, AGL, ALMS1, ALPK3, BAG3, BRAF, ULFTH4J, TQGSI7I, CALM1, CALM2, CALM3, CASQ2, CBL, CDH2, CPT2, CRYAB, CSRP3, YVETTE, DMD, DNAJC19, DOLK, DSC2, DSG2, DSP, ELAC2, EMD, EYA4, FHL1, FKRP, FKTN, FLNC, GAA, GATA4, GATA5, GJA5, GLA, HCN4, HRAS, JUP, KCNE1, KCNH2, KCNJ2, KCNQ1, KRAS, LAMP2, LMNA, LZTR1, MAP2K1, MAP2K2, MRAS, MTO1, MYBPC3, MYH7, MYL2, MYL3, MYL4, MYLK3, NF1, NKX2-5, NRAS, PCCA, PCCB, PKP2, PLN, PPA2, PPCS, PPP1CB, PRKAG2, PTPN11, RAF1, RASA1, RBM20, RIT1,RYR2, SCN5A, SDHA, SGCD, SHOC2, LIH40M2, SOS1, SOS2, SPRED1, DB, TBX20, TCAP, TMEM43, TMEM70, TNNC1, TNNI3, TNNI3K, TNNT2, TPM1, TRDN, TRPM4, TTN, TTR, VCL Preliminary Evidence genes: A2ML1, AKAP9, ANK2, ANKRD1, MLOZX6P0, CACNB2, CALR3, CAV3, CHRM2, CTF1,CTNNA3, DTNA, FHL2, GATA6, GATAD1, GPD1L, HAND1, ILK, JPH2, KCNA5, KCND3, KCNE2, KCNE3, KCNE5, KCNJ5, KCNJ8, KCNK3, KIF20A, KLF10, LAMA4, LDB3, LRRC10, MAP3K8, MED12, MYH6, MYLK2, MYOM1, MYOZ2, MYPN,NEBL, NEXN, NPPA, PDLIM3, PLEKHM2, PRDM16, RANGRF, RASA2, RRAS, SCN10A, SCN1B, SCN2B, SCN3B, SCN4B,SLMAP, SNTA1, TMPO, TXNRD2 Insurance Authorization: The laboratory will complete prior authorization for genetic testing. If the [id number] cost is expected to be over $100, the patient will be notified by the laboratory todiscuss payment options. 4. Test results are anticipated in approximately 2-4 weeks from Blood sample collection. Monster Samson prefers to receive genetic test results by MyG and phone. Targeted Medical History and Cardiovascular Screening Past medical history of PVD, HTN, hyperlipidemia, former smoker. He was evaluated in the ED 09/2023for shortness of breath, found to have atrial fibrillation, first degree AV block, and RBBB, bilateral pulmonary embolia and possible right heart strain. Further workup identified suggesting asymmetric left ventricular hypertrophy/hypertrophic cardiomyopathy. Cardiac Screening/Procedure History ECG: Yes most recent 07/02/24: Sinus rhythm with 1st degree AV block with occasional Premature ventricular complexes Right bundle branch block Left anterior fascicular block Bifascicular block Septal infarct , age undetermined Possible Lateral infarct , age undetermined Abnormal ECG Echo: Yes 06/30/24: The examination is adequate to evaluate the referral indication. The qualitative LV ejection fraction is >70% (hyperdynamic). The left ventricular cavity size is normal. Asymmetric hypertrophy of the left ventricular septum measuring 1.8 cm. The resting peak instantaneous left ventricular outflow tract gradient is 8.9 mm Hg. The inducible peak instantaneous left ventricular outflow tract gradient is 30.1 mm Hg. The left ventricular diastolic function is mildly abnormal (grade I). No significant valvular disease is present. IVSd: 1.8 cm, LVPWd: 1.0 cm Per cardiology note: 04/04/23: EF 55-60%, Sigmoid shaped septum with focal hypertrophy of basal septum 1.9 Per cardiology note: 10/13/23 "The rhythm is atrial fibrillation with rapid ventricular response. Left ventricle is small and under filled. LVEF >70% Asymmetric hypertrophy of the left ventricularseptum measuring 2.0 cm. No significant left ventricular outflow tract gradient." Per other clinic notes 05/2021: "Ejection fraction 45%. Moderate concentric LVH. Diffuse wall motionabnormalities with details in the report. Left atrial dilatation. Normal RV systolic function." Cardiac MRI: ordered, not completed ETT/ Stress test: No Holter: No Catheterization: No Surgery/biopsy: No Other cardiac study: No Medications? Yes Family History (Cardiovascular Genetics Targeted) Relatives with previous genetic testing for HCM/heritable cardiomyopathies: none (to the best of Monster Carlson knowledge). Family History Problem Relation Name Age of Onset Heart failure/cardiomyopathy No significant family history Pedigree - larger version available in "Media" Cardiovascular Genetics Pedigree Image Risk Assessment: We discussed that Monster's personal history of HCM is somewhat concerning for hereditary HCM. We reviewed the following genetic causes of HCM: Gene % of HCM Caused by Pathogenic Variants in This Gene [employer] Gene Validity Classification Allelic Disorders MYBPC3 50% Definitive HCM/DCM MYH7 33% Definitive HCM/DCM Nestor Distal Myopathy Myosin storage myopathy Left ventricular non-compaction Scapuloperoneal myopathy TNNI3 5% Definitive HCM/DCM Restrictive cardiomyopathy TNNT2 4% Definitive HCM/DCM Left ventricular non-compaction Familial restrictive cardiomyopathy (Adapted from Abhishek-Last revised 04/26/21) Most individuals who meet a diagnosis HCM achieve a normal life expectancy without disability or a need for major therapeutic intervention. A small proportion of individuals with hereditary HCM have risk for sudden cardiac (SCD) due to unpredictable ventricular tachyarrhythmias (most commonly in asymptomatic patients <35 years of age, including competitive athletes). Established risk factors for SCD include; personal history of ventricular fibrillation, cardiac arrest, sustained ventricular tachycardia, syncope that is unexplained or consistent with an arrhythmia, non-sustained ventricular tachycardia, and family history of sudden cardiac . We discussed that cardiomyopathy can also occur because of lifestyle, behavioral, environmental or other risk factors for which we cannot test. The AHA/ACC 2020 guidelines recommend genetic testing for individuals and descendants with either aclinical or necropsy diagnosis of HCM (Ommen et al. 2020). The Heart Failure Society of [place] supports this recommendation (Alesia, et al. 2018). It is reasonable to consider genetic testing for Monster based on the guidelines and their diagnosis of HCM. Psychosocial History and Impact of Risk Assessment Motivation for testing: etiology Concerns about family members: none Support network: [employer]. Occupation: No employer currently on file Genetic Testing and Cardiovascular Disease Risk Management We discussed the risks, benefits, and limitations of testing for HCM using a multigene panel. Some genes are well described and have specific screening and management recommendations from experts (e.g. ACCF, AHA, HRS, EHRA, etc.). We also discussed testing for more newly discovered genes that do not yet have clear risks for associated cardiomyopathies or management guidelines. Monster Samson chose to pursue this analysis. The following results are possible: Positive result: specific increased screening and risk prevention options would be discussed at thetime of results disclosure based on the gene in which the pathogenic variant was identified. More newly discovered genes may not yet have clear risks for associated cardiomyopathies or management guidelines There may be diseases associated with the particular gene that are not present in Monster's personal or family histories. Family members could consider genetic testing for the same variant; first degree relatives would beat 50% risk to carry the same variant, and more distant relatives would also be at risk. Negative result: medical management and cardiovascular disease screening will be based on family history and physicians recommendations. Variant of Uncertain Significance (VUS): medical management would be based on family history. Monsterunderstands that the more genes that are tested using multi-gene panels, the higher the likelihood of a VUS. A VUS is not used to make medical management recommendations nor to offer testing to family members. We obtained the proper consent and Monster Samson stated that they understood the information that wasdiscussed and any questions were answered. Monster understands the limitations and potentially non-actionable results associated with testing for newly described genes. Kalie Larson MS, [facility] Board-Certified & Licensed Genetic Counselor [facility] Clinic at [facility] A total of 11 minutes with 100% via video were spent in discussion with the patient. Encounter Diagnoses (Associated ICD-10 Codes): ICD-10-CM 1. Hypertrophic cardiomyopathy (HCC) I42.2 2. Paroxysmal atrial fibrillation (HCC) I48.0 3. RBBB (right bundle branch block) I45.10 documented in this encounter Miscellaneous Notes * Addendum Note - Kalie Larson, - 09/15/2024 12:02 PM ESTAddended by: SAIDADAVIDMAUREEN COEOLIVERIO MONTANOE on: 09/15/2024 12:02 PM Modules accepted: Orders documented in this encounter Plan of Treatment Upcoming Encounters Date Type Department Care Team (Late st Contact Info) Description 09/20/2024 10:30 AM EST Office Visit Cardiology, [facility] [address] [facility] [place] [address] Rick Tan, DO [address] [place] [address] 09/21/2024 3:00 PM EST Office Visit Neurology [facility] [address] [facility] [place] [address] Carlos Jiménez DO [address] [facility] [place] [address] 02/08/2025 11:30 AM EDT Office Visit Cardiology, [facility] [address] [facility] [address] [facility] [place] [address] Nannette Gonzales CRNP [address] [place] [address] 07/11/2025 3:20 PM EDT Office Visit Pulmonary Medicine, [facility] [address] [place] [address] Kumar Noyola MD [address] [place] [address] Health Maintenance Due Date Last Done Comments Depression Screening 1957 Alpha-1 Antitrypsin 1964 COVID-19 Vaccine (1 - 2023-2 5 season) 2024 Influenza Vaccine (FLU shot) (#1) 2024 DTap/Tdap Vaccines (2 - Td o r Tdap) 09/01/2034 09/01/2024 Pneumococcal Vaccine: 65+ Years Completed 05/10/2019, 01/15/2018, 03/22/2013 Zoster Vaccines Completed 05/28/2021, 05/10/2019 HPV (Gardasil) Vaccine Aged Out No lo [...] as of this encounter Visit Diagnoses Diagnosis Hypertrophic cardiomyopathy (HCC)- Primary Other hypertrophic cardiomyopathy Paroxysmal atrial fibrillation (HCC) Atrial fibrillation RBBB (right bundle branch block) Right bundle branch block documented in this encounter Advance Directives * Full Code (Latest Code Status on File) Date Activated Date Inactivated Comments 08/18/2024 5:00 PM 08/19/2024 6:57 PM This order reflects the patients wishes and were consensually agreed upon. Question Answer Comments Discussion of Advance Directives occurred with: Patient Care Teams Oil And Gas Specialist Relationship Specialty Start Date End Date Debbie Arango MD [address] [facility] [place] [id number] PCP - General Internal Medicine 03/04/23 documented as of this encounter
--- OUTSIDE RECORDS SUMMARY | 2024-10-16 13:16 | External Medical Summary | Summary of Care ---
Author Name Unknown Organization [facility] Address [address] [place] [address] Phone [phone] Care Team Providers Care Administrative Asst Name Role Phone Debbie Arango MD Primary Care Provider Reason for Visit * Reason Comments Return Neuro * Evaluate & Treat - Unlimited Visits (Within 10 days (routine)) - Pending Review Specialty Diagnoses / Procedures Referred By Valarie t Referred To Contact Neurology Diagnoses Orthostatic hypotension Teena Galvan MD [address] [place] [address] Phone: tel: fax: Referral ID Status Reason Start Date Expiration Date Visits Requested Visits Authorized [id number] Pending Review Specialty Services Required 04/07/[phone] Encounter Details Date Type Department Care Team (Late st Contact Info) Description 09/21/2024 3:00 PM EST Office Visit [facility] [address] [place] [address] Carlos Jiménez DO [address] [place] [address] [id number] IBM (inclusion body myositis)*; Polymyositis with myopathy (HCC); Muscle weakness; Dysarthria Allergies No known active allergiesdocumented as of this encounter (statuses as of 09/22/2024) Medications Nutra/Shake Oral LiquidIndication s:CKD (chronic kidney [...] OralHS, (No instructions reported), Reported on 09/20/2024 Warfarin Sodium 5 MG Oral Tablet (Coumadin) [...] systolic BP above 120. 180 Tablet 3 4 Active Additional Information Patient taking differently:2.5 mg Oral BID (0900, 1600),One tablet twice daily at 9:00am and 4:00pm. May hold for systolic BP above 120., Reported on 09/20/2024 Amiodarone HCl 200 MG Oral Tablet (Cordarone) [...] as of this encounter (statuses as of 09/22/2024) Active Problems Problem Noted Date Diagnosed Date [...] as of this encounter (statuses as of 09/22/2024) Resolved Problems Problem Noted Date Diagnosed Date Resolved Date Encephalopathy acute 08/18/2024 024 documented as of this encounter (statuses as of 09/22/2024) Social History Tobacco Use Types Packs/Day Years [...] PM EDT documented as of this encounter Last Filed Vital Signs Vital Sign Reading Time Taken Comments Blood Pressure 114/76 09/21/2024 3:01 PM EST Pulse 85 09/21/2024 3:01 PM EST Temperature 36.4 C (97.6 F) 09/21/2024 3:01 PM ES T Respiratory Rate 16 09/21/2024 3:01 PM EST Oxygen Saturation 95% 09/21/2024 3:01 PM EST Inhaled Oxygen Concentration - - Weight 81 kg (178 lb 9.6 oz) 09/21/2024 3:01 PM EST Height - - Body Mass Index 27.16 09/07/2024 9:40 AM EST documented in this encounter Functional Status * Are you [...] Entry Date Author Yes 08/18/2024 3:24 PM Lilian Little RN documented in this encounter Progress Notes * Carlos Jiménez, DO - 09/22/2024 6:34 AM EST Images from the original note were not included. 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 He presents w his son. Since I last saw him he had labs, EMG, and muscle biopsy. Laps and muscle biopsy were suggestive of IBM. Since I last saw him he has noted increased weakness. He is using a wheelchair. His speech is also slurred. Physical therapy has not helped. He does follow w nephrologyDr. Frankel. HOME MEDICATIONS : Current Outpatient Medications Medication Sig Dispense Refill Nutra/Shake Oral Liquid TAKE ONE BY MOUTH EVERY DAY TO SUPPLEMENT NUTRIENT INTAKE Renal Vitamin 0.8 MG Oral Tablet Take 1 Tablet by mouth in the morning. 90 Tablet 3 Gentamicin Sulfate 0.1 % External Cream Apply topically to affected area daily. Apply to exit site after treatment daily. 30 g 3 Docusate Sodium 100 MG Oral Capsule (Colace) Take 1 Capsule by mouth in the morning. Pt takes this once daily . Vitamin D 50 MCG (2000 UT) Oral Capsule Take 2,000 Units by mouth in the morning. Metoprolol Succinate ER 25 MG Oral Tablet Extended Release 24 Hour (toPROL XL) Take 1 Tablet by mouth in the morning and 1 Tablet before bedtime. May take an additional 25 mg if experiencing recurrent episodes of atrial fibrillation.. (Patient taking differently: Take 1 Tablet by mouth at bedtime.)200 Tablet 3 Warfarin Sodium 5 MG Oral Tablet (Coumadin) Take 1 Tablet by mouth in the morning. OR DIRECTED BY THE COUMADIN. Pantoprazole Sodium 40 MG Oral Tablet Delayed Release (Protonix) Take 1 Tablet by mouth in the morning and 1 Tablet before bedtime. 120 Tablet 0 Metoprolol Tartrate 25 MG Oral Tablet (Lopressor) 1 Tablet as needed. May take 25 mg if experiencing recurrent episodes of atrial fibrillation. Midodrine HCl 2.5 MG Oral Tablet (Proamatine) Take 1 Tablet by mouth in the morning and 1 Tablet inthe evening. May hold for systolic BP above 120. (Patient taking differently: Take 1 Tablet by mouth in the morning and 1 Tablet in the evening. One tablet twice daily at 9:00am and 4:00pm. May hold for systolic BP above 120. .) 180 Tablet 3 Amiodarone HCl 200 MG Oral Tablet (Cordarone) Take 1 Tablet by mouth daily with breakfast. Current Facility-Administered Medications Medication Dose Route Frequency Provider Last Rate Last Admin Albuterol Sulfate (Proventil) (5 MG/ML) 0.5% *conc* inhalation solution 2.5 mg 2.5 mg Nebulizer PRN Albuterol Sulfate (Proventil) (2.5 MG/3ML) 0.083% inhalation solution 2.5 mg 2.5 mg Nebulizer PRN 2.5 mg at 07/06/24 0732 Review of patient's allergies indicates: No Known Allergies PHYSICAL EXAMINATION: Vital Signs: BP 114/76 | Pulse 85 | Temp 36.4 C (97.6 F) (Tympanic) | Resp 16 | Wt 81 kg (178 lb 9.6 oz) | SpO2 95% | BMI 27.16 kg/m | BSA 1.97 m EXAM: Constitutional: Appears stated age, chronically ill-appearing male, no acute distress Head and Face: normocephalic and atraumatic Eyes: normal lids, normal conjunctiva Neck: supple Respiratory: normal effort Cardiovascular: normal pulses Abdomen: non distended Skin: Dry skin on his feet Psychiatric: normal judgement and insight, normal mood and normal affect NEUROLOGIC EXAMINATION: Appearance: no acute distress Orientation: awake, alert and oriented x 3 Mental Status: alert Attention: normal Knowledge: appropriate Language: no aphasia Speech: no dysarthria Cranial Nerves: CN 2 - no visual defect on confrontation and pupils round, equal, reactive to light CN 3, 4, 6 - extra-ocular movements intact and no nystagmus CN 5 - facial sensation intact CN 7 - no facial asymmetry CN 8 - intact hearing CN 9, 10 - palate symmetric CN 11 - good shoulder shrug CN 12 - tongue midline Gait: Wide-based shuffling gait Coordination: Intention tremor with oicbor-jh-nocr testing Sensory: Reduced vibration in both feet Muscle Tone: Rigidity predominantly in the right upper extremity Muscle exam: Proximal lower extremity weakness particularly in both legs with difficulty getting upfrom a seated position Reflexes: Brisk at both knees, absent at both ankles LABORATORY: Labs reviewed and pertinent findings are indicated below: Component Latest Ref Rn 06/01/2024 WBC 4.00 - 10.80 K/uL RBC 4.50 - 5.25 M/uL HGB 14.0 - 16.8 g/dL HCT 40.0 - 48.4 % MCV 82.0 - 99.5 fL MCH 27.0 - 34.0 pg MCHC 32.0 - 36.0 g/dL RDW 11.5 - 15.5 % PLT 140 - 400 K/uL MPV 6.6 - 11.1 fL nRBCs <=0 /100 WBCs BUN 6 - 20 mg/dL CREATININE 0.6 - 1.2 mg/dL EGFR >=60 mL/min SODIUM 135 - 146 mmol/L POTASSIUM 3.5 - 5.1 mmol/L CHLORIDE 98 - 107 mmol/L CO2 22 - 32 mmol/L ANION GAP 7 - 15 mmol/L GLUCOSE 70 - 120 mg/dL CALCIUM 8.4 - 10.2 mg/dL ROMAINE Screen Negative dsDNA Antibody Interpretation Negative dsDNA Antibody Value <20 IU/mL CARMEN Antibodies Screen Interpretation Negative CARMEN Antibodies Screen Value <0.7 Ratio Normal/Abnormal Normal Abnormal ! Immunofixation Interpretation Abnormal, a monoclonal IgG lambda gammopathy is present. Hemoglobin A1C 4.0 - 5.6 % 6.1 (H) Estimated Average Glucose <126 mg/dL 128 (H) c-ANCA Negative p-ANCA Negative Vitamin B12 232 - 1,245 pg/mL 1,412 (H) Folic Acid >4.5 ng/mL >20.0 CK 39 - 308 U/L 838 (H) Vitamin B6, Plasma 2.1 - 21.7 ng/mL 24.0 (H) ESR <20 mm/hour 20 (H) Vitamin B1 (Thiamine),B 78 - 185 nmol/L 172 External Lab Report RESULT SCAN Lyme Disease Antibody Screen Negative Negative cN 1A Ab (IgG) Units COPPER 70 - 175 mcg/dL Sensorimotor Neuropathy Profile w/RECOMBX(R)-Comp GLUCOSE - POCT 70 - 120 mg/dL Component Latest Ref Rng 06/01/2024 WBC 4.00 - 10.80 K/uL RBC 4.50 - 5.25 M/uL HGB 14.0 - 16.8 g/dL HCT 40.0 - 48.4 % MCV 82.0 - 99.5 fL MCH 27.0 - 34.0 pg MCHC 32.0 - 36.0 g/dL RDW 11.5 - 15.5 % PLT 140 - 400 K/uL MPV 6.6 - 11.1 fL nRBCs <=0 /100 WBCs BUN 6 - 20 mg/dL CREATININE 0.6 - 1.2 mg/dL EGFR >=60 mL/min SODIUM 135 - 146 mmol/L POTASSIUM 3.5 - 5.1 mmol/L CHLORIDE 98 - 107 mmol/L CO2 22 - 32 mmol/L ANION GAP 7 - 15 mmol/L GLUCOSE 70 - 120 mg/dL CALCIUM 8.4 - 10.2 mg/dL ROMAINE Screen Negative dsDNA Antibody Interpretation Negative dsDNA Antibody Value <20 IU/mL CARMEN Antibodies Screen Interpretation Negative CARMEN Antibodies Screen Value <0.7 Ratio Normal/Abnormal Normal Abnormal ! Immunofixation Interpretation Abnormal, a monoclonal IgG lambda gammopathy is present. Hemoglobin A1C 4.0 - 5.6 % 6.1 (H) Estimated Average Glucose <126 mg/dL 128 (H) c-ANCA Negative p-ANCA Negative Vitamin B12 232 - 1,245 pg/mL 1,412 (H) Folic Acid >4.5 ng/mL >20.0 CK 39 - 308 U/L 838 (H) Vitamin B6, Plasma 2.1 - 21.7 ng/mL 24.0 (H) ESR <20 mm/hour 20 (H) Vitamin B1 (Thiamine),B 78 - 185 nmol/L 172 External Lab Report RESULT SCAN Lyme Disease Antibody Screen Negative Negative cN 1A Ab (IgG) Units COPPER 70 - 175 mcg/dL Sensorimotor Neuropathy Profile w/RECOMBX(R)-Comp GLUCOSE - POCT 70 - 120 mg/dL Component Latest Ref Rng 06/23/2024 08/18/2024 WBC 4.00 - 10.80 K/uL 13.91 (H) RBC 4.50 - 5.25 M/uL 3.97 HGB 14.0 - 16.8 g/dL 11.9 (L) HCT 40.0 - 48.4 % 35.5 (L) MCV 82.0 - 99.5 fL 89.4 MCH 27.0 - 34.0 pg 30.0 MCHC 32.0 - 36.0 g/dL 33.5 RDW 11.5 - 15.5 % 15.2 PLT 140 - 400 K/uL 217 MPV 6.6 - 11.1 fL 10.2 nRBCs <=0 /100 WBCs 0 BUN 6 - 20 mg/dL 35 (H) CREATININE 0.6 - 1.2 mg/dL 7.6 (H) EGFR >=60 mL/min 7 (L) SODIUM 135 - 146 mmol/L 134 (L) POTASSIUM 3.5 - 5.1 mmol/L 4.3 CHLORIDE 98 - 107 mmol/L 96 (L) CO2 22 - 32 mmol/L 22 ANION GAP 7 - 15 mmol/L 16 (H) GLUCOSE 70 - 120 mg/dL 195 (H) CALCIUM 8.4 - 10.2 mg/dL 8.1 (L) ROMAINE Screen Negative Negative dsDNA Antibody Interpretation Negative Negative dsDNA Antibody Value <20 IU/mL 0.7 CARMEN Antibodies Screen Interpretation Negative Negative CARMEN Antibodies Screen Value <0.7 Ratio 0.2 Normal/Abnormal Normal Immunofixation Interpretation Hemoglobin A1C 4.0 - 5.6 % Estimated Average Glucose <126 mg/dL c-ANCA Negative Negative p-ANCA Negative Negative Vitamin B12 232 - 1,245 pg/mL Folic Acid >4.5 ng/mL CK 39 - 308 U/L 633 (H) Vitamin B6, Plasma 2.1 - 21.7 ng/mL ESR <20 mm/hour Vitamin B1 (Thiamine),B 78 - 185 nmol/L External Lab Report Lyme Disease Antibody Screen Negative cN 1A Ab (IgG) Units 84 (H) COPPER 70 - 175 mcg/dL 93 Sensorimotor Neuropathy Profile w/RECOMBX(R)-Comp SEE BELOW GLUCOSE - POCT 70 - 120 mg/dL 180 (H) Legend: ! Abnormal (H) High (L) Low Review of prior Diagnostic Tests: Final Diagnosis A. 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 However, the age is not appropriate for SMA. Clinical correlation is recommended. Gross Description A. Thigh, Left. Received fresh in metallic clamps with a container labeled with "Monster Samson", "[id number]", "1945" and " left quadricep muscle". Received is an un-oriented portion of red-hope, intact muscle measuring 2.2 x 2.1 x 0.8 cm. A portion is snap frozen for IF. A portion has been submitted in 3% glutaraldehyde. The remaining tissue is submitted entirely in 2 cassettes. Gross By: LW Microscopic Description Paraffin and frozen sections are examined. Paraffin sections are stained with H & E, and immunostainsed with CD3, CD4, CD8, CD20, and TDP43. Frozen sections are stained with H&E, trichrome, NADH, SDH, OJEDA, alkaline phosphatase, Oil-Red-O, and PAS. Immunostains for slow and fast myosin heavychains and immunofluorescent stains for MHC class-1 antigens and membrane attack complex (MAC) are also performed. H&E stained sections demonstrate moderate myofiber atrophy, hypertrophy, and necrotic and regenerated fibers. There is no perifascicular atrophy. The atrophic fibers are round to angular. Internal nuclei are increased above 3%. A few vacuoles are noted but typical rimed vacuoles are not identified. There is moderate endomysial lymphocytic infiltrate. Invasion of the non-necrotic fibers is also noted. Immunostains show lymphocytes are T-cell type (CD3+) and there are equal or slightly more CD8+ than CD4+ T-cells. No CD20+ B-cells are noted. Immunofluorescent stain for MHC class-1 antigens is diffusely upregulated. Immunofluorescent stain for MAC (C5b-9 complex) shows focal punctate-like m embranous and capillary staining. Some of the small fibers most likely regenerated or necrotic fibers have increased alkaline phosphatase activity. Gomori trichrome stain shows a few ragged red fibers. SDH stain shows several ragged-blue equivalent fibers. The OJEDA-negative fibers increase by above 1%. NADH stain is negative for target fibers. A few dark fibers are noted. Immunostains for slow andfast myosin heavy chains show mixed fiber atrophy; however, the hypertrophic fibers are of type-1. There is no fiber-type grouping present. A PAS stain for glycogen is unremarkable. An Oil-Red-O stain for lipids shows no increase in neutral lipid contents. Review of prior Radiology Studies: IMPRESSION / PLAN: Monster was seen today for return neuro. 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 His symptoms have been progressive although rather rapidly which is atypical. The muscle biopsy was discussed and most suggestive of inclusion body myositis although could not completely exclude an inflammatory component. I did discuss a trial of prednisone 60 mg daily for 60 days with a slow taper. Patient wishes to discuss further with his son as well as Nephrology. He has some concerns about possible fluid retention. I will also touch base with his principal solutions architect Dr. Frankel this week. May need to consider repeat muscle biopsy in 1 year.Other treatment considerations include IVIG. Will defer on any additional diagnostic testing at this time. Will plan to follow-up with the patient later this week via telephone. I will schedule a formal follow-up in the spring. Patient and son agreeable to plan of care. Carlos Jiménez DO documented in this encounter Nursing Notes * Alka Ron MED ASSIST - 09/21/2024 3:01 PM EST Chief Complaint Patient presents with Return Neuro documented in this encounter Plan of Treatment Upcoming Encounters Date Type Department Care Team (Late st Contact Info) Description 02/08/2025 11:30 AM EDT Office Visit Cardiology, [facility] [address] [facility] [place] [id number] Nannette Gonzales CRNP [address] [place] [address] 03/25/2025 11:20 AM EDT Office Visit Neurology [facility] [address] [place] [address] Carlos Jiménez, DO [address] [place] [address] 04/18/2025 11:00 AM EDT Office Visit Cardiology, [facility] [address] [facility] [place] [address] Rick Tan, DO [address] [facility] [place] [address] 07/11/2025 3:20 PM EDT Office Visit Pulmonary Medicine, [facility] 132 [facility] [place] [address] Kumar Noyola MD [address] [place] [address] Health Maintenance Due Date Last Done Comments [...] as of this encounter Visit Diagnoses Diagnosis IBM (inclusion body myositis)- Primary Inclusion body myositis Polymyositis with myopathy (HCC) Polymyositis Muscle weakness Muscle weakness (generalized) Dysarthria documented in this encounter Advance Directives * Full Code (Latest Code Status on File) Date Activated Date Inactivated Comments 08/18/2024 5:00 PM 08/19/2024 6:57 PM This order reflects the patients wishes and were consensually agreed upon. Question Answer Comments Discussion of Advance Directives occurred with: Patient Care Teams Administrative Asst Relationship Specialty Start Date End Date Debbie Arango MD [address] [facility] [place] [address] PCP - General Internal Medicine 03/04/23 documented as of this encounter
--- OUTSIDE RECORDS SUMMARY | 2024-10-16 13:16 | External Medical Summary | Summary of Care ---
Author Name Unknown Organization [facility] Address [address] [place] [address] Phone [phone] Care Team Providers Care Narcotics Agent Name Role Phone Debbie Arango MD Primary Care Provider Reason for Visit * Reason Onset Date Comments Advice 10/09/2024 Encounter Details Date Type Department Care Team (Late st Contact Info) Description 10/09/2024 Telephone [facility]rology[facility] [address] [place] [address] Crow Meeks MD [address] [facility] [place] [address] Advice Allergies No known active allergiesdocumented as of this encounter (statuses as of 10/11/2024) Medications Nutra/Shake Oral LiquidIndication s:CKD (chronic kidney [...] Active Midodrine HCl 2.5 MG Oral Tablet (Proamatine) [...] 2.5 mg NEBULIZER PRN 05/31/2024 05/31/2025 Active Cefdinir (Omnicef) cap 300 mgIndications:Peritonit is of undetermined cause (HCC) 300 mg OR Daily(AM) 10/09/2024 10/14/2024 Active documented as of this encounter (statuses as of 10/11/2024) Active Problems Problem Noted Date Diagnosed Date [...] as of this encounter (statuses as of 10/11/2024) Resolved Problems Problem Noted Date Diagnosed Date Resolved Date Encephalopathy acute 08/18/2024 024 documented as of this encounter (statuses as of 10/11/2024) Social History Tobacco Use Types Packs/Day Years [...] Lilian Valverde RN documented in this encounter Miscellaneous Notes * Telephone Encounter - Vivienne Guerra LPN - 10/11/2024 12:28 PM EST Spoke with family 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 * Telephone Encounter - Jihan Argueta OSA - 10/09/2024 2:30 PM EST Pt call back to inform ritchie has not received this prescription yet. Wanted to confirm it was the Ritchie castellanos.Thank you * Telephone Encounter - Crow Meeks MD - 10/09/2024 10:35 AM EST Got a call from [facility] body recall instructor about Break in technique with PD. As per [facility] protocol patient needs to go to the emergency department for intraperitoneal antibiotics. [facility] on-call nurse as well as I spoke with patient's Dyana Samson. She is sick herself and is not able to take her to the hospital. It is also difficult day with big football game as well as snow. Patient feels completely normal at this time. Given this we advised the patient's to report to emergency department if he has any abdominal pain or fever. As a compromise as per protocol [facility] PD---I am prescribing cefdinir 300 mg once daily. And patient is to take this till he is seen by PD nurse which he has on Friday Prescription sent to Adriane-Antony Meeks MD documented in this encounter Plan of Treatment Upcoming Encounters Date Type Department Care Team (Late st Contact Info) Description 02/08/2025 11:30 AM EDT Office Visit Cardiology, [facility] [address] [facility] [place] [address] Nannette Gonzales CRNP [address] [place] [address] [place] [address] 03/25/2025 11:20 AM EDT Office Visit Neurology [facility] [place] [address] [place] [address] Carlos Jiménez DO [address] [place] [address] 04/18/2025 11:00 AM EDT Office Visit Cardiology [facility] [address] [facility] [place] [address] Rick Tan DO [address] [place] [address] 07/11/2025 3:20 PM EDT Office Visit Pulmonary Medicine, [facility] [address] [place] [address] Kumar Noyola [facility] [address] [place] [address] Health Maintenance Due Date Last Done Comments [...] as of this encounter Visit Diagnoses Diagnosis Peritonitis of undetermined cause (HCC)- Primary Unspecified peritonitis documented in this encounter Advance Directives * Full Code (Latest Code Status on File) Date Activated Date Inactivated Comments 08/18/2024 5:00 PM 08/19/2024 6:57 PM This order reflects the patients wishes and were consensually agreed upon. Question Answer Comments Discussion of Advance Directives occurred with: Patient Care Teams Narcotics Agent Relationship Specialty Start Date End Date Debbie Arango MD [address] [place] [address] PCP - General Internal Medicine 03/04/23 documented as of this encounter
--- OUTSIDE RECORDS SUMMARY | 2024-10-16 13:16 | External Medical Summary | Summary of Care ---
Author Name Unknown Organization [facility] Address [address] [place] [address] Phone [phone] Care Team Providers Care Tow Driver Name Role Phone Debbie Arango MD Primary Care Provider Reason for Visit * Reason Comments Genetic Counseling * Evaluate & Treat - Unlimited Visits (Within 10 days (routine)) - Closed Specialty Diagnoses / Procedures Referred By Valarie stanley Referred To Contact Medical Genetics / Hematology Oncology Diagnoses Atypical atrial flutter (HCC) Rick Tan DO [address] [facility] [place] [address] Phone: tel: fax: Referral ID Status Reason Start Date Expiration Date V isits Requested Visits Authorized [id number] Closed Specialty Services Required 12/03/[phone] Encounter Details Date Type Department Care Team (Latest Contact Info) Description 09/15/2024 11:30 AM EST Telemedicine Cardiovascular Genetics, [facility] 132 [facility] [place] [address] Kalie Larson, MS [facility] [place] [address] Hypertrophic cardiomyopathy (HCC)*; Paroxysmal atrial fibrillation (HCC); [...] included. You met with Kalie Larson MS, [facility] on 09/15/2024 for a Cardiovascular Genetics Risk Assessment. TODAY'S SUMMARY If you have questions about your risk assessment, evaluation, testing process, or results, contact our clinic at [phone] or send a [employer] message. A copy of my note from today's visit will be available in [employer]. You agreed to complete genetic testing to learn whether you have a hereditary cardiovascular condition. Insurance Coverage: The laboratory will complete prior authorization for genetic testing. Please see below for more information from [employer]. Sample Collection: You will have 1 tube of blood drawn for this test. Please wait 2 business days before going to any Outside.in lab to ensure your order has been signed. Lab order: Arrhythmia and Cardiomyopathy Comprehensive Panel Ordering Provider: Chadwick Arambula MD Results are expected in ~3 weeks from sample collection and will appear in the [employer] portal under "Test Results" I will contact you with your results by phone. If any significant findings are reported on your testing, we may recommend a follow up visit. You can request an electronic copy of your report through the laboratory's secure web-portal: Oree/patients. Test reports and evaluation notes/summaries can be [...] does not apply to life, disability and tpbv-jfkz-obis insurance. For more information, go to [email or web address] Sincerely, Kalie Larson MS, [facility] Licensed, Certified Genetic Counselor [facility] (P) [phone] | (E) [email or web address] documented in this encounter Progress Notes * Kalie Larson MS - 09/15/2024 11:30 AM EST Images from the original note were not included. [facility] Note Personal/Family History of Inherited Cardiovascular Disease [facility] Email: [email or web address] Name: Monster Samson Date: 09/15/2024 - 11:30 AM EST Present for consult: Monster Samson, son, Kalie Larson MS, [facility] Visit Type: Video. Patient location: HOME. I was not in a hospital or clinic location. After connecting through televideo, patient was verified with two unique identifiers. Patient (or authorized legal entry level account representative) was then informed that this was [...] placed and Monster may go to any [facility] outpatient lab to initiate genetic testingat their convenience. After discussion of the risks, benefits, and limitations of testing, Monster Samson desires to pursue testing for HCM: [facility] Test Ordered: Arrhythmia and Cardiomyopathy Comprehensive Panel Genes: ABCC9, ACADVL, ACTC1, ACTN2, AGL, ALMS1, ALPK3, BAG3, BRAF, ZIUTO3L, GUTLT1T, CALM1, CALM2, CALM3, CASQ2, CBL, CDH2, CPT2, [...] RASA1, RBM20, RIT1,RYR2, SCN5A, SDHA, SGCD, SHOC2, XDB08G3, SOS1, SOS2, SPRED1, DB, TBX20, TCAP, TMEM43, TMEM70, TNNC1, TNNI3, TNNI3K, TNNT2, TPM1, TRDN, TRPM4, TTN, TTR, VCL Preliminary Evidence genes: A2ML1, AKAP9, ANK2, ANKRD1, IYVDY5U7, CACNB2, CALR3, CAV3, CHRM2, CTF1,CTNNA3, DTNA, FHL2, GATA6, GATAD1, GPD1L, HAND1, ILK, JPH2, KCNA5, KCND3, KCNE2, KCNE3, KCNE5, KCNJ5, KCNJ8, KCNK3, KIF20A, KLF10, LAMA4, LDB3, LRRC10, MAP3K8, MED12, MYH6, MYLK2, MYOM1, MYOZ2, MYPN,NEBL, NEXN, NPPA, PDLIM3, PLEKHM2, PRDM16, RANGRF, RASA2, RRAS, SCN10A, SCN1B, SCN2B, SCN3B, SCN4B,SLMAP, SNTA1, TMPO, TXNRD2 Insurance Authorization: The laboratory will complete prior authorization for genetic testing. If the sjz-tv-afajmh cost is expected to be over $100, [...] for newly described genes. Kalie Larson MS, [facility] Board-Certified & Licensed Genetic Counselor [facility] at [facility] A total of 11 minutes with 100% [...] 09/20/2024 10:30 AM EST Office Visit Cardiology, [facility] [address] [facility] [place] [address] Rick Tan, DO [address] [place] [address] 09/21/2024 3:00 PM EST Office Visit Neurology [facility] [address] [facility] [place] [address] Carlos Jiménez DO [address] [facility] [place] [address] 02/08/2025 11:30 AM EDT Office Visit Cardiology, [facility] [address] [facility] [place] [address] Nannette Gonzales CRNP [address] [place] [address] 07/11/2025 3:20 PM EDT Office Visit Pulmonary Medicine, [facility] [address] [facility] [place] [address] Kumar Noyola MD [address] [place] [address] Health Maintenance Due Date Last Done Comments [...] Advance Directives occurred with: Patient Care Teams Tow Driver Relationship Specialty Start Date End Date Debbie Arango MD [address] [facility] [place] [address] PCP - General Internal Medicine 03/04/23 documented as of this encounter
--- OUTSIDE RECORDS SUMMARY | 2024-10-16 13:16 | External Medical Summary | Summary of Care ---
Author Name Unknown Organization [facility] Address [address] [place] [address] Phone [phone] Care Team Providers Care Client Development Director Name Role Phone Debbie Arango MD Primary Care Provider Reason for Visit * Reason Onset Date Comments Appointment 09/08/2024 Encounter Details Date Type Department Care Team (Late st Contact Info) Description 09/08/2024 Telephone Cardiovascular Genetics, [facility] 132 [facility] [place] [address] Letty Delgado CHRA Appointment Allergies No known active allergiesdocumented as of this encounter (statuses as of 09/28/2024) Medications Nutra/Shake Oral LiquidIndication s:CKD (chronic kidney [...] daily . Active Vitamin D 50 MCG (1999 UT) [...] as of this encounter (statuses as of 09/28/2024) Active Problems Problem Noted Date Diagnosed Date [...] as of this encounter (statuses as of 09/28/2024) Resolved Problems Problem Noted Date Diagnosed Date Resolved Date Encephalopathy acute 08/18/2024 024 documented as of this encounter (statuses as of 09/28/2024) Social History Tobacco Use Types Packs/Day Years [...] Author Yes 08/18/2024 3:24 PM EDT Lilian Valverde, DESTINI * Are you blind or do you [...] encounter Miscellaneous Notes * Telephone Encounter - Letty Delgado CHRA - 09/08/2024 2:30 PM EST Images from the original note were not included. I spoke with patient's son, Dominic, and confirmed patient's upcoming Cardiovascular Genetics telemedicine appointment with Kayla Moise CGC on 09/15/24. A family history was gathered and documented in [facility] and is below. Patient's son will be present at the appointment and confirmed they will be in the [facility] for the appointment. ADRIANA Ryan 09/08/2024 2:31 PM documented in this encounter Plan of Treatment Upcoming Encounters Date Type Department Care Team (Late st Contact Info) Description 02/08/2025 11:30 AM EDT Office Visit Cardiology, [address] [place] [address] Nannette Gonzales CRNP [address] [place], [place] [address], [place] [address] 03/25/2025 11:20 AM EDT Office Visit Neurology [facility] [address] [place] [address] Carlos Jiménez, DO [address] [place] [address] 04/18/2025 11:00 AM EDT Office Visit Cardiology, [facility] [address] Rick Tan, DO 132 [facility] [place] [address] 07/11/2025 3:20 PM EDT Office Visit Pulmonary Medicine, [facility] 132 [facility] [place] [address] Kumar Noyola MD [address] [facility] [place] [address] Health Maintenance Due Date Last Done Comments Depression Screening 1957 Alpha-1 Antitrypsin 1964 COVID-19 Vaccine (2023-2 5 season) 2024 DTap/Tdap Vaccines (2 - [...] Advance Directives occurred with: Patient Care Teams Client Development Director Relationship Specialty Start Date End Date Debbie Arango MD [address] [facility] [place] [address] PCP - General Internal Medicine 03/04/23 documented as of this encounter
--- OUTSIDE RECORDS SUMMARY | 2024-10-16 13:16 | External Medical Summary | Summary of Care ---
Author Name Unknown Organization [facility] Address [address] [place] [address] Phone [phone] Care Team Providers Care Roaster Supervisor Name Role Phone Debbie Arango MD Primary Care Provider Reason for Visit * Reason Onset Date Comments Medication Question 09/07/2024 [place] Encounter Details Date Type Department Care Team (Late st Contact Info) Description 09/07/2024 Telephone Cardiology, [place] [facility] [place] [address] Nannette Gonzales CRNP [address] [place] [address] Medication Question ([place]) Allergies No known active allergiesdocumented as of this encounter (statuses as of 09/09/2024) Medications Nutra/Shake Oral LiquidIndication s:CKD (chronic kidney [...] systolic BP above 120., Reported on 09/08/2024 Hospital, Clinic, or Other Facility Administered Medication [...] as of this encounter (statuses as of 09/09/2024) Active Problems Problem Noted Date Diagnosed Date [...] as of this encounter (statuses as of 09/09/2024) Resolved Problems Problem Noted Date Diagnosed Date Resolved Date Encephalopathy acute 08/18/2024 024 documented as of this encounter (statuses as of 09/09/2024) Social History Tobacco Use Types Packs/Day Years [...] encounter Miscellaneous Notes * Telephone Encounter - Rosalba Humphrey DO - 09/09/2024 1:41 PM EST noted * Telephone Encounter - Debbie Coughlin CMA - 09/08/2024 11:14 AM EST Patient's Dyana calling in to correct dosages of meds that were reported at yesterday's visit. Patient is still taking amiodarone daily 200mg. Pt takes Metoprolol Succinate 25mg once daily, HS. Dyana states that this is because Dr. Humphrey instructed them not to take Amiodarone at the same time as Metoprolol. Med list updated to reflect patient's reported medications. Dyana also requests that we fax yesterday's visit note to [facility]. Med list faxed to [phone]. Note to be faxed when signed. * Telephone Encounter - Angelique Singh OSA - 09/07/2024 11:19 AM EST Person calling: Dyana Relationship to patient: Phone/Fax to return call: [phone] Reason for call(brief): medication confusion Pharmacy: na Provider Name:Nannette Gonzales Detailed message to office:Son brought patient to appt today and is saying there was confusionabout his medications. She is asking to speak to a nurse. Please advise. Thanks documented in this encounter Plan of Treatment Upcoming Encounters Date Type Department Care Team (Late st Contact Info) Description 09/15/2024 11:30 AM EST Telemedicine Cardiovascular Genetics, [facility] [address] [place] [address] Kayla Larson, MS [address] [place] [address] 09/20/2024 10:30 AM EST Office Visit Cardiology, [facility] [address] [place] [address] Rick Tan, DO [address] [place] [address] 09/21/2024 3:00 PM EST Office Visit Neurology [facility] [place] [facility] [place] [address] Carlos Jiménez, 200 [facility] [place] [address] 02/08/2025 11:30 AM EDT Office Visit Cardiology, [facility] 132 [facility] [place] [address] Nannette Gonzales CRNP [address] [place] [place] [address] 07/11/2025 3:20 PM EDT Office Visit Pulmonary Medicine, [facility] 132 [facility] [place] [address] Kumar Noyola MD [address] [place] [address] Health Maintenance Due Date Last Done Comments Depression Screening 1957 Alpha-1 Antitrypsin 1964 COVID-19 Vaccine ( - 2023-2 5 season) 2024 Influenza Vaccine [...] as of this encounter Visit Diagnoses Diagnosis Paroxysmal atrial fibrillation (HCC) Atrial fibrillation documented in this encounter Advance Directives * Full Code (Latest Code Status on File) Date Activated Date Inactivated Comments 08/18/2024 5:00 PM 08/19/2024 6:57 PM This order reflects the patients wishes and were consensually agreed upon. Question Answer Comments Discussion of Advance Directives occurred with: Patient Care Teams Roaster Supervisor Relationship Specialty Start Date End Date Debbie Arango MD [address] [place] [address] PCP - General Internal Medicine 03/04/23 documented as of this encounter
--- OUTSIDE RECORDS SUMMARY | 2024-10-16 13:16 | External Medical Summary | Summary of Care ---
Author Name Unknown Organization [facility] Address [address] [place] [address] Phone [phone] Care Team Providers Care Winding Inspector And Tester Name Role Phone Debbie Arango MD Primary Care Provider Reason for Visit * Reason Onset Date Comments Advice 10/09/2024 Encounter Details Date Type Department Care Team (Late st Contact Info) Description 10/09/2024 Telephone [facility] [address] [place] [address] Crow Meeks MD 200 [facility] [place] [address] Advice Allergies No known active allergiesdocumented as [...] encounter Miscellaneous Notes * Telephone Encounter - Jihan Argueta OSA - 10/09/2024 2:30 PM EST Pt call back to inform ritchie has not received this prescription yet. Wanted to confirm it was the Ritchie castellanos.Thank you * Telephone Encounter - Crow Meeks MD - 10/09/2024 10:35 AM EST Got a call from Stewart on call about Break in technique with PD. As per [facility] protocol patient needs to go to the emergency department for intraperitoneal antibiotics. Stewart on-call nurse as well as I spoke [...] fever. As a compromise as per protocol [facility]---I am prescribing cefdinir 300 mg once daily. And patient is to take this till he is seen by PD nurse which he has on Friday Prescription sent to Mechelle Meeks MD documented in this encounter Plan of Treatment Upcoming Encounters Date Type Department Care Team (Late st Contact Info) Description 02/08/2025 11:30 AM EDT Office Visit Cardiology, [facility] 132 [facility] [place] [address] Nannette Gonzales CRNP 400 [facility] [place] [address] 03/25/2025 11:20 AM EDT Office Visit Neurology [facility] 200 [facility] [place] [address] Carlos Jiménez DO 200 [facility] [place] [address] 04/18/2025 11:00 AM EDT Office Visit Cardiology, [facility] 132 [facility] [place] [address] Rick Tan, DO [address] [place] [address] 07/11/2025 3:20 PM EDT Office Visit Pulmonary Medicine, [facility] [address] [place] [address] Kumar Noyola MD [address] [facility] [place] [address] Health Maintenance Due Date Last Done Comments Depression Screening 1957 Alpha-1 Antitrypsin 1964 COVID-19 Vaccine (1 - 2023-2 5 season) 2024 DTap/Tdap Vaccines [...] Advance Directives occurred with: Patient Care Teams Winding Inspector And Tester Relationship Specialty Start Date End Date Debbie Arango MD [address] [facility] [place] [address] PCP - General Internal Medicine 03/04/23 documented as of this encounter
--- OUTSIDE RECORDS SUMMARY | 2024-10-16 13:16 | External Medical Summary | Summary of Care ---
Author Name Unknown Organization [facility] Address [address] [place] [address] Phone [phone] Care Team Providers Care Crew Lead Name Role Phone Debbie Arango MD Primary Care Provider Reason for Visit * Reason Onset Date Comments Other 08/25/2024 Encounter Details Date Type Department Care Team (Late st Contact Info) Description 08/25/2024 Telephone Gastroenterology, [address] [address] Uli Caraballo MD [address] [place] [address] Other Allergies No known active allergiesdocumented as of this encounter (statuses as of 08/25/2024) Medications Medication Sig Dispensed Refills Start Date [...] the morning. 90 Tablet 3 09/08/2023 Active Gentamicin Sulfate 0.1 % External Cream Apply topically to affected area daily. Apply to exit site after treatment daily. 30 g 3 11/18/2023 Active Docusate Sodium 100 MG Oral Capsule (Colace) Take 1 Capsule by mouth in the morning. Pt takes this once daily . Active Vitamin D 50 MCG (2000 UT) Oral Capsule Take 2,000 Units by mouth in the morning. Active Midodrine HCl 2.5 MG Oral Tablet (Proamatine)Indica tions:Hypotension Take 1 Tablet by mouth in the morning and 1 Tablet before bedtime. 180 Tablet 3 05/06/2024 Active Metoprolol Succinate ER 25 MG Oral Tablet Extended Release 24 Hour (toPROL XL)Indications:Par oxysmal atrial fibrillation (HCC) Take 1 Tablet by mouth in the morning and 1 Tablet before bedtime. May take an additional 25 mg if experiencing recurrent episodes of atrial fibrillation.. 200 Tablet 3 06/08/2024 Active Amiodarone HCl 200 MG Oral Tablet (Cordarone) Take 1 Tablet by mouth in the morning. 34 Tablet 11 07/02/2024 Active Warfarin Sodium 5 MG Oral Tablet (Coumadin) Take 1 Tablet by mouth in the morning. OR DIRECTED BY THE COUMADIN. Do not start before August 26, 2024. 08/26/2024 Active Pantoprazole Sodium 40 MG Oral Tablet Delayed Release (Protonix) Take 1 Tablet by mouth in the morning and 1 Tablet before bedtime. 120 Tablet 08/19/2024 10/18/2024 Active Amoxicillin-Pot Clavulanate 500-125 MG Oral Tablet (Augmentin) Take 1 Tablet by mouth in the morning and 1 Tablet before bedtime. 30 Tablet 08/19/2024 Active Hospital, Clinic, or Other Facility Administered [...] as of this encounter (statuses as of 08/25/2024) Active Problems Problem Noted Date Diagnosed Date [...] as of this encounter (statuses as of 08/25/2024) Resolved Problems Problem Noted Date Diagnosed Date Resolved Date Encephalopathy acute 08/18/2024 024 documented as of this encounter (statuses as of 08/25/2024) Social History Tobacco Use Types Packs/Day Years [...] ages 0-17 years) Not on file 08/18/2024 Social Connections Answer Date Recorded How often do you feel lonely or isolated from those around you? (Adult - for ages 18 years and over) Not on file 04/06/2024 Transportation Needs Answer Date Record ed Do [...] on file documented as of this encounter Functional Status Functional Status Response Date of Assess ment Are you deaf or do you have serious difficulty hearing? Yes-hearing aides 08/18/2024 Are you blind or do you have serious difficulty seeing, even when wearing glasses? No 08/18/2024 Do you have serious difficul ty walking or climbing stairs? (5 years old or older) Yes-uses walker 08/18/2024 Do you have difficulty dress ing or bathing? (5 years old or older) Yes-can do but difficult 08/18/2024 Because of a physical, menta l, or emotional condition, do you have difficulty doing errands alone such as visiting a doctor s office or shopping? (15 years old or older) Yes-not driving currently 08/18/2024 Cognitive Status Response Date of Assessm ent Because of a physical, menta l, or emotional condition, do you have serious difficulty concentrating, remembering, or making decisions? (5 years old or older) Yes-some memory problems 08/18/2024 documented as of this encounter Miscellaneous Notes * Telephone Encounter - Uli Caraballo MD - 08/25/2024 6:53 PM EST I spoke to him and discussed plan about food and Coumadin in details. * Telephone Encounter - Connie Enamorado RN - 08/25/2024 3:18 PM EST Family asking if patient can now restart his Coumadin. Thought they were to call in prior to him restarting it. Followed a clear liquid diet x 2 days, then a full liquid diet x 2 days. Is now trying soft foods. Can tolerate yogurt and scrambled eggs but unable to tolerate a baked potato. What diet should he be following at this time? Nurses, please call Dyana back with the instructions. Thanks documented in this encounter Plan of Treatment Upcoming Encounters Date Type Department Care Team (Late st Contact Info) Description 08/26/2024 8:30 AM EST Scheduled Telephone Neurosurgery, [place] [address] [place] [address] [place], Follow Up Phone Call Neurosurg [address] [place] [address] 09/07/2024 9:30 AM EST Office Visit Cardiology, [facility] [address] [facility] [address] Nannette Gonzales CRNP 400 [facility] [place] [id number] 09/15/2024 11:30 AM EST Telemedicine Cardiovascular Genetics, [facility] 132 [facility] [place] [address] Kayla Larson, MS [facility] [place] [address] 09/20/2024 10:30 AM EST Office Visit Cardiology, [facility] 132 [facility] [place] [address] Rick Tan, DO 132 [facility] [place] [address] 09/21/2024 3:00 PM EST Office Visit Neurology [facility] [address] [place], [place] [address] Carlos Jiménez, DO 200 [facility] [place], [place] [address] 07/11/2025 3:20 PM EDT Office Visit Pulmonary Medicine, [facility] [address] [facility] [place] [address] Kumar Noyola MD [address] [place] [address] Health Maintenance Due Date Last Done Comments Depression Screening 1957 Alpha-1 Antitrypsin 1964 DTap/Tdap Vaccines (1 - Tdap) 1965 COVID-19 Vaccine (2023-2 5 season) 2024 Influenza Vaccine (FLU shot) (#1) 2024 Pneumococcal Vaccine: 65+ Years Completed 05/10/2019, [...] Advance Directives occurred with: Patient Care Teams Crew Lead Relationship Specialty Start Date End Date Debbie Arango MD [address] [facility] [place] [address] PCP - General Internal Medicine 03/04/23 documented as of this encounter
--- OUTSIDE RECORDS SUMMARY | 2024-10-16 13:16 | External Medical Summary | Summary of Care ---
Author Name Unknown Organization [facility] Address [address] [place] [address] Phone [phone] Care Team Providers Care Chemist Inorganic Name Role Phone Debbie Arango MD Primary Care Provider Reason for Visit * Reason Comments Follow Up Rm 16 * Evaluate & Treat - Unlimited Visits (Within 10 days (routine)) - Authorized Specialty Diagnoses / Procedures Referred By Contact Referred To Contact Cardiovascular Medicine / Cardiology Diagnoses Other heart failure (HCC) Deirdre Sauceda CRNP [address] [place] [address] Phone: tel: fax: Referral ID Status Reason Start Date Expiration Date Visits Requested Visits Authorized [id number] Authorized Specialty Services Required 07/14/2024 12/29/2024 [id number] Encounter Details Date Type Department Care Team (Late st Contact Info) Description 09/07/2024 9:30 AM EST Office Visit Cardiology, [facility] [address] [facility] [place] [address] Nannette Gonzales CRNP [address] [place] [address] PAF (paroxysmal atrial fibrillation) (HCC)*; Hypertrophic cardiomyopathy (HCC); Bilateral pulmonary embolism (HCC); RBBB (right bundle branch block); ESRD on peritoneal dialysis (HCC) Allergies No known active allergiesdocumented as of this encounter (statuses as of 09/22/2024) Medications Nutra/Shake Oral LiquidIndication s:CKD (chronic kidney disease) stage 5, GFR less than 15 ml/min (HCC) TAKE ONE BY MOUTH EVERY DAY TO SUPPLEMENT NUTRIENT INTAKE 03/20/20 23 Active Renal Vitamin 0.8 MG Oral TabletIndication s:CKD (chronic kidney disease) stage 5, GFR less than 15 ml/min (HCC) Take 1 Tablet by mouth in the morning. 90 Tablet 3 09/08/20 23 Active Gentamicin Sulfate 0.1 % External Cream Apply topically to affected area daily. Apply to exit site after treatment daily. 30 g 3 11/18/19 24 Active Docusate Sodium 100 MG Oral Capsule [...] episodes of atrial fibrillation.. 200 Tablet 3 06/08/20 24 Active Additional Information Patient taking differently:25 mg OralHS, (No instructions reported), Reported on 09/20/2024 Warfarin Sodium 5 MG Oral Tablet (Coumadin) Take 1 Tablet by mouth in the morning. OR DIRECTED BY THE COUMADIN. 08/26/20 24 Active Pantoprazole Sodium 40 MG Oral Tablet Delayed Release (Protonix) Take 1 Tablet by mouth in the morning and 1 Tablet before bedtime. 120 Tablet 4 11:31 AM EDT 08/19/20 24 024 Active Metoprolol Tartrate 25 MG Oral Tablet (Lopressor) 1 Tablet as needed. May take 25 mg if experiencing recurrent episodes of atrial fibrillation. Active Midodrine HCl 2.5 MG Oral Tablet (Proamatine) Take 1 Tablet by mouth in the morning and 1 Tablet in the evening. May hold for systolic BP above 120. 180 Tablet 3 09/07/20 Active Additional Information Patient taking differently:2.5 mg Oral BID (0900, 1600),One tablet twice daily at 9:00am and 4:00pm. May hold for systolic BP above 120., Reported on 09/20/2024 Amiodarone HCl 200 MG Oral Tablet (Cordarone) Take 1 Tablet by mouth daily with breakfast. Active Midodrine HCl 2.5 MG Oral Tablet (Proamatine)Jelly cations:Hypotens ion Take 1 Tablet by mouth in the morning and 1 Tablet before bedtime. 180 Tablet 3 05/06/20 24 024 Discontin ued(Refil l) Amiodarone HCl 200 MG Oral Tablet (Cordarone) Take 1 Tablet by mouth in the morning. 34 Tablet 11 07/02/20 24 Discontin ued(Medic ation List Clean Up) metroNIDAZOLE 500 MG Oral Tablet (Flagyl) Take 1 Tablet by mouth in the morning and 1 Tablet at noon and 1 Tablet in the evening and 1 Tablet before bedtime. Do all this for 5 days. Start the day before POEM/EGD procedure and continue for 3 total days... 20 Tablet 4 11:31 AM EDT 08/19/20 24 024 Discontin ued(Medic ation List Clean Up) Nystatin 700787 UNIT/ML Mouth/Throat Suspension Swish and swallow 5 mL in the morning and 5 mL at noon and 5 mL in the evening and 5 mL before bedtime. Do all this for 5 days. Start the day before POEM/EGD procedure and continue for 3 total days.. 100 mL 4 11:31 AM EDT 08/19/20 24 024 Discontin ued(Medic ation List Clean Up) Amoxicillin-Pot Clavulanate 500-125 MG Oral Tablet (Augmentin) Take 1 Tablet by mouth in the morning and 1 Tablet before bedtime. 30 Tablet 4 11:31 AM EDT 08/19/20 24 024 Discontin ued(Medic ation List Clean Up) Hospital, Clinic, or Other Facility Administered Medication [...] Sign Reading Time Taken Comments Blood Pressure 98/52 09/07/2024 9:40 AM EST Pulse 76 09/07/2024 9:40 AM EST Temperature - - Respiratory Rate 16 09/07/2024 9:40 AM EST Oxygen Saturation - - Inhaled Oxygen Concentration - - Weight 80.7 kg (178 lb) 09/07/2024 9:40 AM EST Height 172.7 cm (5' 8") 09/07/2024 9:40 AM EST Body Mass Index 27.06 09/07/2024 9:40 AM EST documented in this [...] this encounter Patient Instructions * Patient Instructions* Nannette Gonzales CRNP - 09/07/2024 10:10 AM EST Let us know what the current home medication list reflects. Use midodrine twice per day, can hold for systolic blood pressure above 120 documented in this encounter Progress Notes * Rosalba Humphrey DO - 09/22/2024 6:57 PM EST I have reviewed the advanced practitioner's documentation on the date of service referenced in note, and I agree with, and take responsibility for the plan of care. Pt seen in close 2 month EP f/u due to early signs of TBS Pt reports overall feeling well Has not felt any pAF since restarting amio and his QTc is stalbe Does have some fatigue walking with is walker BP in on the low side continue midodrine No change in cardiac medications Continue with general cardiology f/u in between EP f/u 5 months Rosalba Humphrey DO Department of Cardiology [facility] [place] [address] documented in this encounter Procedure Notes * Carlos Enrique So MD - 09/07/2024 10:21 AM ESTAssociated Order(s): EKG REPORT REASON FOR STUDY: CONCLUSIONS: Sinus rhythm with 1st degree AV block Right bundle branch block Left anterior fascicular block Bifascicular block Septal infarct Possible Lateral infarct Abnormal ECG When compared with ECG of 02-Jul-2024 12:18, Premature ventricular complexes are no longer present otherwise, no significant change Ventricular Rate: 83 Atrial Rate: 83 [place] Interval: 210 QRS Duration: 148 QT/QTc: 456/535 ms P-R-T [place]: -25 : -72 : 31 degrees documented in this encounter Nursing Notes * Pat Gonzalez NRCMA - 09/07/2024 9:42 AM EST Patient was identified by name and date of . Examination Room: 16 Name: Monster Samson Date of : (1945). Reason for Visit: ret visit Interim Hospitalization(s): surgery 2 weeks ago Problems/Concerns: none currently Chest Pain/SOB: no Medications reviewed and are up to date via: med list My [facility] is a way you can talk to your provider online through e-mail. Would you like to sign up? I can activate it for you? ALREADY ACTIVE Do you have video visit capabilities (email and smart phone)? No. Would you be interested in 6 or 12 return visit being scheduled as a video visit if the provider approves? No Patient was instructed to not get up on the exam table/exam chair until directed and assisted by their provider; patient is to remain seated in the chair/ wheelchair/ exam table/ exam chair for fall prevention and safety reasons. Patient is aware to have assistance to step down off exam table/exam chair with personnel. Patient voiced full comprehension of instructions. HUY Schroeder documented in this encounter Plan of Treatment Upcoming Encounters Date Type Department Care Team (Late st Contact Info) Description 02/08/2025 11:30 AM EDT Office Visit Cardiology, [facility] [address] [place] [address] Nannette Gonzales CRNP [address] [place] [address] [place] [address] 03/25/2025 11:20 AM EDT Office Visit Neurology [facility] [address] [facility] [place] [address] Carlos Jiménez, [address] [facility] [place] [address] 04/18/2025 11:00 AM EDT Office Visit Cardiology, [facility] [address] [address] Rick Tan, DO [address] [place] [address] 07/11/2025 3:20 PM EDT Office Visit Pulmonary Medicine, [facility] [address] [place] [address] uKmar Noyola MD [address] [place] [address] Health Maintenance Due Date Last Done Comments [...] Procedure Name Priority Date/Time Associated Diagnosis Comments EKG REPORT 09/07/2024 10:21 AM EST documented in this encounter Results * EKG (09/20/2024 10:44 AM EST) 09/20/2024 10:4 4 AM EST Narrative Procedure Note Rick Tan DO - 09/20/2024 10:44 AM EST REASON FOR STUDY: amiodarone;amiodarone CONCLUSIONS: Sinus rhythm with 1st degree AV block Right bundle branch block Left anterior fascicular block Bifascicular block Septal infarct (cited on or before 03-Dec-2023) Possible Lateral infarct (cited on or before 03-Dec-2023) Abnormal ECG When compared with ECG of 07-Sep-2024 10:21, Questionable change in initial forces of Septal leads Questionable change in initial forces of Lateral leads Ventricular Rate: 81 Atrial Rate: 81 [place] Interval: 212 QRS Duration: 156 QT/QTc: 474/550 ms P-R-T [place]: -22 : -70 : 19 degrees Nannette Waddellerica ECHEVARRIA EKG F inal Result [facility] * EKG REPORT (09/07/2024 10:21 AM EST) 09/07/2024 10:2 1 AM EST Narrative Procedure Note Carlos Enrique So MD - 09/07/2024 10:21 AM EST REASON FOR STUDY: CONCLUSIONS: Sinus rhythm with 1st degree AV block Right bundle branch block Left anterior fascicular block Bifascicular block Septal infarct Possible Lateral infarct Abnormal ECG When compared with ECG of 02-Jul-2024 12:18, Premature ventricular complexes are no longer present otherwise, no significant change Ventricular Rate: 83 Atrial Rate: 83 [place] Interval: 210 QRS Duration: 148 QT/QTc: 456/535 ms P-R-T [place]: -25 : -72 : 31 degrees Nannette ECHEVARRIA EKG F inal Result documented in this encounter Visit Diagnoses Diagnosis PAF (paroxysmal atrial fibrillation) (HCC)- Primary Atrial fibrillation Hypertrophic cardiomyopathy (HCC) Other hypertrophic cardiomyopathy Bilateral pulmonary embolism (HCC) Other pulmonary embolism and infarction RBBB (right bundle branch block) Right bundle branch block ESRD on peritoneal dialysis (HCC) End stage renal disease PAF (paroxysmal atrial fibrillation) (HCC) Atrial fibrillation Hypertrophic cardiomyopathy (HCC) Other hypertrophic cardiomyopathy Bilateral pulmonary embolism (HCC) Other pulmonary embolism and infarction RBBB (right bundle branch block) Right bundle branch block ESRD on peritoneal dialysis (HCC) End stage renal disease Hypotension Hypotension, unspecified documented in this encounter Advance Directives * Full Code (Latest Code Status on File) Date Activated Date Inactivated Comments 08/18/2024 5:00 PM 08/19/2024 6:57 PM This order reflects the patients wishes and were consensually agreed upon. Question Answer Comments Discussion of Advance Directives occurred with: Patient Care Teams Chemist Inorganic Relationship Specialty Start Date End Date Debbie Arango MD [address] [facility] [place] [address] PCP - General Internal Medicine 03/04/23 documented as of this encounter
--- OUTSIDE RECORDS SUMMARY | 2024-10-16 13:16 | External Medical Summary | Summary of Care ---
Author Name Unknown Organization [facility] Address [address] [place] [address] Phone [phone] Care Team Providers Care Basting Machine Operator Name Role Phone Debbie Arango MD Primary Care Provider Reason for Visit * Reason Onset Date Comments Advice 10/09/2024 Encounter Details Date Type Department Care Team (Late st Contact Info) Description 10/09/2024 Telephone [facility] [address] [place] [address] Crow Meeks MD 200 [facility] [place] [address] Advice Allergies No known active allergiesdocumented as [...] Telephone Encounter - Teena Galvan MD - 10/11/2024 4:10 PM EST Pt seen in PD clinic; no abd pain or alarm signs; transfer set changed; pt to continue abtc. * Telephone Encounter - Vivienne Guerra LPN - 10/11/2024 12:28 PM EST Spoke with family Pt was able to black pickler RX * Telephone Encounter - Stefanie Gasca [...] 10:35 AM EST Got a call from [facility] leadership intern about Break in technique with PD. As per [facility] protocol patient needs to go to the emergency department for intraperitoneal antibiotics. [facility] on-call nurse as well as I spoke [...] 02/08/2025 11:30 AM EDT Office Visit Cardiology, [facility] 132 [facility] [place] [address] Nannette Gonzales CRNP [address] [place] [id number] 03/25/2025 11:20 AM EDT Office Visit [facility] [address] Carlos Jiménez, DO [address] [place] [address] 04/18/2025 11:00 AM EDT Office Visit Cardiology, [facility] 132 [facility] [place] [address] Rick Tan, DO 132 [facility] [place] [address] 07/11/2025 3:20 PM EDT Office Visit Pulmonary Medicine, [facility] 132 [facility] [place] [address] Kumar [facility]ola [facility] [address] [facility] [address] Health Maintenance Due Date Last Done Comments [...] Advance Directives occurred with: Patient Care Teams Basting Machine Operator Relationship Specialty Start Date End Date Debbie Arango MD [address] [facility] [place] [address] PCP - General Internal Medicine 03/04/23 documented as of this encounter
--- OUTSIDE RECORDS SUMMARY | 2024-10-16 13:16 | External Medical Summary | Summary of Care ---
Author Name Unknown Organization [facility] Address [address] [place] [address] Phone [phone] Care Team Providers Care Software Test Technician Name Role Phone Debbie Arango MD Primary Care Provider Reason for Visit * Reason Comments Follow Up * Evaluate & Treat - Unlimited Visits (Within 10 days (routine)) - Authorized Specialty Diagnoses / Procedures Referred By Contact Referred To Contact Cardiovascular Medicine / Cardiology Diagnoses Other heart failure (HCC) Deirdre Sauceda CRNP [address] [place] [address] Phone: tel: fax: Referral ID Status Reason Start Date Expiration Date Visits Requested Visits Authorized [id number] Authorized Specialty Services Required 07/14/2024 12/29/[phone] Encounter Details Date Type Department Care Team (Latest Contact Info) Description 09/20/2024 10:30 AM EST Office Visit Cardiology, [facility] [address] [place] [address] Rick Tan, [address] [place] [address] Paroxysmal atrial flutter (HCC)*; Hypertrophic cardiomyopathy (HCC); RBBB (right bundle branch block); LAFB (left anterior fascicular block); Hypotension, unspecified hypotension type; ESRD on peritoneal dialysis (HCC); Aspiration pneumonia of right lower lobe, unspecified aspiration pneumonia type (HCC) Allergies No known active allergiesdocumented as of this encounter (statuses as of 09/20/2024) Medications Nutra/Shake Oral LiquidIndication s:CKD (chronic kidney disease) stage 5, GFR less than 15 ml/min ([facility]) TAKE ONE BY MOUTH EVERY DAY TO SUPPLEMENT NUTRIENT INTAKE 3 Active Renal Vitamin 0.8 MG Oral TabletIndication s:CKD (chronic kidney disease) stage 5, GFR less than 15 ml/min ([facility]) Take 1 Tablet by mouth in the [...] systolic BP above 120. 180 Tablet 3 Active Additional Information Patient taking differently:2.5 mg [...] as of this encounter (statuses as of 09/20/2024) Active Problems Problem Noted Date Diagnosed Date [...] as of this encounter (statuses as of 09/20/2024) Resolved Problems Problem Noted Date Diagnosed Date Resolved Date Encephalopathy acute 08/18/2024 024 documented as of this encounter (statuses as of 09/20/2024) Social History Tobacco Use Types Packs/Day Years [...] Sign Reading Time Taken Comments Blood Pressure 110/84 09/20/2024 10:35 AM EST Pulse 80 09/20/2024 10:35 AM EST Temperature - - Respiratory Rate 20 09/20/2024 10:35 AM EST Oxygen Saturation 95% 09/20/2024 10:35 AM EST Inhaled Oxygen Concentration - - Weight 82.1 kg (181 lb) 09/20/2024 10:35 AM EST Height - - Body Mass Index 27.52 09/07/2024 9:40 AM EST documented in this [...] Lilian Valverde RN documented in this encounter Progress Notes * Rick Tan DO - 09/20/2024 10:32 AM EST SUBJECTIVE: Patient returns today for follow-up of paroxysmal atrial flutter, early signs of TBS, hypertrophic cardiomyopathy, conduction disease (RBBB, LAFB, first-degree AV block) and chronic hypotension. Recently following with electrophysiology. Amiodarone restarted to maintain sinus rhythm. ProlongedQT interval noted in the setting of underlying conduction disease, however, the QT interval is unchanged when compared to ECGs dating back to April. Chronically anticoagulated warfarin due to AFib andhistory of pulmonary embolus. Currently resident of [facility]. Feeling well from a cardiovascular perspective over the past 2 months. Notes chronic fatigue which is unchanged. No orthopnea, PND, or lower extremity edema. Denies palpitations, syncope, or near syncope. Occasional lightheadedness less frequent with initiation of midodrine. Son present for today's office visit. Offers no additional concerns/complaints. ECG: Sinus rhythm with first-degree AV block, right bundle branch block, left anterior fascicular block. QTC 550 MS unchanged when compared to prior ECGs. 2D echocardiogram report October 13, 2023: The rhythm is atrial fibrillation with rapid ventricular response. Left ventricle is small and under filled. LVEF >70% Asymmetric hypertrophy of the left ventricular septum measuring 2.0 cm. No significant left ventricular outflow tract gradient. ROS: All others negative other than those noted in the HPI. 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 HEENT: Normocephalic. Atraumatic. Conjunctiva pink,no scleral icterus. No carotid bruits, the carotid upstrokes are brisk. No JVD. No HJR Heart: Regular normal S-1 and S-2 no S-3 or S-4 gallop. 2/6 systolic ejection murmur heard best at the right 2ndintercostal space. PMI is not displaced. No RV heave. Lungs: Clear bilateral without rales , rhonchi, or wheeze. Abdomen: Normal bowel sounds. Soft. Nontender. No masses or organomegaly. No abdominalbruits. Extremities: Trace bilateral pretibial edema above the sock line. Pulses: radial=2/4, posterior tibial=2/4. Neuro: No focal deficits. ASSESSMENT: 1. Paroxysmal atrial flutter with early signs of TBS and underlying conduction disease -rhythm control with amiodarone -prolonged QT in setting of chronic RBBB, LAFB unchanged with addition of amiodarone -appropriately anticoagulated with warfarin 2. Hypertrophic cardiomyopathy - septal thickness 2.0cm - No significant left ventricular outflow tract obstruction. 3. Hypotension -stable blood pressure with the addition of midodrine 4. Unprovoked bilateral pulmonary embolus 09/2023 -appropriately anticoagulated with warfarin -pulmonary perfusion imaging low probability for PE 05/04/2024 5. End-stage renal disease on peritoneal dialysis 6. Community-acquired pneumonia versus aspiration pneumonia -silent aspiration per video swallow eval -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 7. Esophageal achalasia status post dilatation PLAN: Natural history and pathophysiology of atrial flutter, underlying conduction disease, and hypertrophic cardiomyopathy discussed. Electrophysiology input appreciated. Continue amiodarone, Toprol-XL, midodrine, and warfarin as ordered. Patient and his son will monitor for any lightheadedness, dizziness, syncope, or near syncope. No indication for ICD/PPM at this time. All questions answered to satisfaction of both the patient and his son. Follow Up: Return in about 6 months (around 03/21/2025). I spent a total of 30-39 minutes (exact time 31 mins) on the date of service in preparation, delivery, and documentation of the care provided to Monster Samson excluding any time spent in the performance of separately billed services. Rick Tan DO, [facility] Associate Cardiology - [facility] documented in this encounter Nursing Notes * Tasia Chaudhari LPN - 09/20/2024 10:33 AM EST Examination Room: 11 Name: Monster Samson Date of : 1945 Reason for Visit: Follow up Problems/Concerns: Denies complaint today, c/o SOB, but denies worsening; Interim Hosp(s): denies Chest Pain/SOB: Denies CP MyChart Discussed: active Patient was instructed to not get up [...] 09/21/2024 3:00 PM EST Office Visit Neurology [facility] [address] [place] [address] Carlos Jiménez, DO [address] [place] [address] 02/08/2025 11:30 AM EDT Office Visit Cardiology, [facility] 132 [facility] [place] [address] Nannette Gonzales CRNP [address] [place] [id number] 04/18/2025 11:00 AM EDT Office Visit Cardiology, [facility] 132 [facility] [place] [address] Rick Tan, DO 132 [facility] [place] [address] 07/11/2025 3:20 PM EDT Office Visit Pulmonary Medicine, [facility] 132 [facility] [place] [address] Kumar Noyola MD [address] [place] [address] Health Maintenance Due Date Last Done Comments [...] this encounter Visit Diagnoses Diagnosis Paroxysmal atrial flutter (HCC)- Primary Atrial flutter Hypertrophic cardiomyopathy (HCC) Other hypertrophic cardiomyopathy RBBB (right bundle branch block) Right bundle branch block 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 Question Answer Comments Discussion of Advance Directives occurred with: Patient Care Teams Software Test Technician Relationship Specialty Start Date End Date Debbie Arango MD [address] [facility] [place] [address] PCP - General Internal Medicine 03/04/23 documented as of this encounter"
--- OUTSIDE RECORDS SUMMARY | 2024-10-16 13:16 | External Medical Summary | Summary of Care ---
Author Name Unknown Organization [facility] Address [address] [place] [address] Phone [phone] Care Team Providers Care Material Chaser Name Role Phone Debbie Arango MD Primary Care Provider Reason for Visit * Reason Onset Date Comments Advice 07/15/2024 Milagro Encounter Details Date Type Department Care Team (Late st Contact Info) Description 07/15/2024 Telephone Cardiology, [facility] 132 [facility] [place] [address] Rosalba Humphrey, DO 400 [facility] [place] [address] Advice (Milagro) Allergies No known active allergiesdocumented as of this encounter (statuses as of 09/09/2024) Medications Nutra/Shake Oral LiquidIndicatio ns:CKD (chronic kidney disease) stage 5, GFR less than 15 ml/min (HCC) TAKE ONE BY MOUTH EVERY DAY TO SUPPLEMENT NUTRIENT INTAKE 023 Active Renal Vitamin 0.8 MG Oral TabletIndicatio ns:CKD (chronic kidney disease) stage 5, GFR less than 15 ml/min (HCC) Take 1 Tablet by mouth in the morning. 90 Tablet 3 Active Gentamicin Sulfate 0.1 % External Cream Apply topically to affected area daily. Apply to exit site after treatment daily. 30 g 3 Active Docusate Sodium 100 MG Oral Capsule (Colace) Take 1 Capsule by mouth in the morning. Pt takes this once daily . Active Vitamin D 50 MCG (2000 UT) Oral Capsule Take 2,000 Units by mouth in the morning. Active Metoprolol Succinate ER 25 MG Oral Tablet Extended Release 24 Hour (toPROL XL)Indications: Paroxysmal atrial fibrillation (HCC) Take 1 Tablet by mouth in the morning and 1 Tablet before bedtime. May take an additional 25 mg if experiencing recurrent episodes of atrial fibrillation.. 200 Tablet 3 Active Additional Information Patient taking differently:25 mg OralHS, (No instructions reported), Reported on 09/08/2024 Warfarin Sodium 5 MG Oral Tablet (Coumadin) Take 1 Tablet by mouth in the morning. OR DIRECTED BY THE COUMADIN. 2023 Discontinued Midodrine HCl 2.5 MG Oral Tablet (Proamatine)Ind ications:Hypote nsion Take 1 Tablet by mouth in the morning and 1 Tablet before bedtime. 180 Tablet 3 024 2023 Discontinued(R efill) Amiodarone HCl 200 MG Oral Tablet (Cordarone) Take 1 Tablet by mouth in the morning. 34 Tablet 11 2023 Discontinued(M edication List Clean Up) Metoprolol Tartrate 25 MG Oral Tablet (Lopressor) Take 1 Tablet by mouth daily as needed (for rapid heart rates). 60 Tablet 5 2023 Discontinued Metoprolol Tartrate 25 MG Oral Tablet (Lopressor) Take 1 Tablet by mouth in the morning and 1 Tablet before bedtime. 12 Tablet 4 12:38 PM EDT 2023 Discontinued Hospital, Clinic, or Other Facility Administered Medication [...] Encounter - Rosalba Humphrey DO - 09/09/2024 1:44 PM EST Addressed awhile ago * Telephone Encounter - Snow Lozada RN - 08/05/2024 8:33 AM EDT Tigertext sent to Dr. Humphrey notifying request to speak with patient/family. * Telephone Encounter - Angelique Singh OSA - 08/04/2024 4:02 PM EDT Person calling: Dyana Relationship to patient: ex- Phone/Fax to return call: [phone] Reason for call(brief): dialysis information Pharmacy: na Provider Name:Dr. Humphrey Detailed message to office:See other encounters from 07/30 and 08/02 in addition to this one. Ex- Dyana calling in again to speak directly with Dr. Humphrey on if patient would be able to have hemodialysis. Very upset her son or her have not been able to get a response directly from her. Accusing Dr. Frankel of interfering with Dr. Humphrey calling back. Please advise. Thanks * Telephone Encounter - Nigel West LPN - 07/23/2024 4:45 PM EDT Patient's son called back to follow up on previous message. Still would like a telephone call, telemedicine or in person appointment to discuss options for patient. * Telephone Encounter - Pat Gonzalez NRCMA - 07/20/2024 9:15 AM EDT Spoke with pt son, explained below information and son still wants appt/televisit to discuss risk stratification. Pt is already on peritoneal dialysis and has been suggested hemodialysis. Son is adament that he speak with Dr Humphrey directly as he was not at the office visit. HUY Davila * Telephone Encounter - Rosalba Humphrey DO - 07/17/2024 3:13 PM EDT Hi Can you please call and explain I said that HD will be difficult due to hypotension; I never said he would not survive it. We just might have to hold metoprolol on HD days and give midodrine-but we won't know until he starts the HD. Thank you Dr. Humphrey * Telephone Encounter - Mitchell Ching OSA - 07/15/2024 4:23 PM EDT Person calling: Dyana Samson Relationship to patient: Ex-Spouse Phone/Fax to return call: [phone] Reason for call(brief): Treatment question Provider Name: Dr. Humphrey Detailed message to office: Stated when at appt on 07/02 , she was told by Dr. Humphrey that pt "would not survive" hemodialysis. Stated pt's technical fellow is now suggesting that pt start hemodialysis and she requested that she speak with Dr. Humphrey regarding this treatment to elaborate why she advised against it. She requested pt is not told about this and she is contacted directly, please advise. documented in this encounter Plan of Treatment Upcoming Encounters Date Type Department Care Team (Late st Contact Info) Description 09/15/2024 11:30 AM EST Telemedicine [facility] [address] [place] [address] Kayla Larson, MS 132 [place] [address] 09/20/2024 10:30 AM EST Office Visit Cardiology, [facility] [address] Rick Tan, DO 132 [facility] [place] [address] 09/21/2024 3:00 PM EST Office Visit [facility] [address] [place] [address] Carlos Jiménez, DO [address] [place] [address] 02/08/2025 11:30 AM EDT Office Visit Cardiology, [facility] 132 [facility] [place] [address] Nannette Gonzales CRNP [address] [place] [address] 07/11/2025 3:20 PM EDT Office Visit Pulmonary Medicine, [facility] 132 [facility] [address] Kumar Noyola MD [address] [place] [facility] [place] [address] Health Maintenance Due Date Last Done Comments [...] Advance Directives occurred with: Patient Care Teams Material Chaser Relationship Specialty Start Date End Date Debbie Arango MD 2907 [facility] [place] [address] PCP - General Internal Medicine 03/04/23 documented as of this encounter
--- OUTSIDE RECORDS SUMMARY | 2024-10-16 13:16 | External Medical Summary | Summary of Care ---
Author Name Unknown Organization [facility] Address [address] [place] [address] Phone [phone] Care Team Providers Care Wall Insulation Sprayer Name Role Phone Debbie Arango MD Primary Care Provider Reason for Visit * Reason Onset Date Comments Advice 10/09/2024 Encounter Details Date Type Department Care Team (Late st Contact Info) Description 10/09/2024 Telephone NephrologyAmna [address] [place] [address] Crow Meeks MD 200 [facility] [place] [address] Advice Allergies No known active allergiesdocumented as [...] Assessment Author Yes 08/18/2024 3:24 PM EDT Lilain Valverde RN documented as of this encounter Mental Status * Because of a physical, mental, or emotional condition, do you have serious difficulty concentrating, remembering, or making decisions? (5 years old or older) Answer Entry Date Author Yes 08/18/2024 3:24 PM EDT Lilian Valverde RN documented in this encounter Miscellaneous Notes * Telephone Encounter - Stefanie Gasca RN - 10/11/2024 8:28 AM EST AM regarding message. * Telephone Encounter - Jihan Argueta OSA - 10/09/2024 2:30 PM EST Pt call back to inform ritchie has not received this prescription yet. Wanted to confirm it was the Ritchie castellanos.Thank you * Telephone Encounter - Crow Meeks MD - 10/09/2024 10:35 AM EST Got a call from [employer] insurance sales representative about Break in technique with PD. [facility] needs to go to the [...] fever. As a compromise as per protocol [employer]---I am prescribing cefdinir 300 mg once daily. And patient is to take this till he is seen by PD nurse which he has on Friday Prescription sent to Mechelle Meeks MD documented in this encounter Plan of Treatment Upcoming Encounters Date Type Department Care Team (Late st Contact Info) Description 02/08/2025 11:30 AM EDT [facility] 132 [facility] [place] [address] Nannette Gonzales CRNP [address] [place] [address] 03/25/2025 11:20 AM EDT Office Visit Neurology [facility] [place] 200 [facility] [place] [address] Carlos Jiménez, 200 [facility] [place] [address] 04/18/2025 11:00 AM EDT Office Visit Cardiology [facility] 132 [facility] [place] [address] Rick Tan, [address] [place] [address] 07/11/2025 3:20 PM EDT [facility] 132 [address] [address] Kumar Noyola MD [address] [place] [address] Health Maintenance Due Date Last Done Comments [...] Advance Directives occurred with: Patient Care Teams Wall Insulation Sprayer Relationship Specialty Start Date End Date Debbie Arango MD [address] [place] [address] PCP - General Internal Medicine 03/04/23 documented as of this encounter
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
--- OUTSIDE RECORDS SUMMARY | 2024-10-16 13:16 | External Medical Summary | Summary of Care ---
Author Name Unknown Organization [facility] Address [address] [place] [address] Phone [phone] Care Team Providers Care Tin Assorter Name Role Phone Debbie Arango MD Primary Care Provider Reason for Visit * Reason Onset Date Comments Advice 10/09/2024 Encounter Details Date Type Department Care Team (Late st Contact Info) Description 10/09/2024 Telephone NephrologyAmna [address] [place] [address] Crow Meeks MD 200 [facility] [place] [address] Advice Allergies No known active allergiesdocumented as of this encounter (statuses as of 10/09/2024) Medications Nutra/Shake Oral LiquidIndication s:CKD (chronic kidney [...] as of this encounter (statuses as of 10/09/2024) Active Problems Problem Noted Date Diagnosed Date [...] as of this encounter (statuses as of 10/09/2024) Resolved Problems Problem Noted Date Diagnosed Date Resolved Date Encephalopathy acute 08/18/2024 024 documented as of this encounter (statuses as of 10/09/2024) Social History Tobacco Use Types Packs/Day Years [...] encounter Miscellaneous Notes * Telephone Encounter - Crow Meeks MD - 10/09/2024 10:35 AM EST Got a call from [employer] call box wirer about Break in technique with PD. As per [facility] protocol patient needs to go to the [...] fever. As a compromise as per protocol [place]---I am prescribing cefdinir 300 mg once daily. And patient is to take this till he is seen by PD nurse which he has on Friday Prescription sent to Mechelle Meeks MD documented in this encounter Plan of Treatment Upcoming Encounters Date Type Department Care Team (Late st Contact Info) Description 02/08/2025 11:30 AM EDT Office Visit Cardiology, [facility] 132 [facility] [place] [address] Nannette Gonzales CRNP [address] [place] [address] 03/25/2025 11:20 AM EDT Office Visit Neurology [facility] [address] [place] [address] Carlos Jiménez, DO 200 [facility] [place] [address] 04/18/2025 11:00 AM EDT Office Visit Cardiology, [facility] 132 [facility] [place] [address] Rick Tan, DO 132 [facility] [place] [address] 07/11/2025 3:20 PM EDT Office Visit Pulmonary Medicine, [facility] 132 [facility] [place] [address] Kumar Noyola MD [address] [place] [address] Health Maintenance Due Date Last Done Comments [...] Advance Directives occurred with: Patient Care Teams Tin Assorter Relationship Specialty Start Date End Date Debbie Arango MD 2907 [facility] [place] [address] PCP - General Internal Medicine 03/04/23 documented as of this encounter
--- OUTSIDE RECORDS SUMMARY | 2024-10-16 13:16 | External Medical Summary | Summary of Care ---
Author Name Unknown Organization [facility] Address [address] [place] [address] Phone [phone] Care Team Providers Care Hard Metals Engraver Hand Name Role Phone Debbie Arango MD Primary Care Provider Reason for Visit * Reason Onset Date Comments Advice 10/09/2024 Encounter Details Date Type Department Care Team (Late st Contact Info) Description 10/09/2024 Telephone NephrologyAmna [address] [place] [address] Crow Meeks MD 200 [place] [address] Advice Allergies No known active allergiesdocumented as [...] EST Got a call from [employer] call or contact centre manager about Break in technique with PD. As per [facility] protocol patient needs to go [...] 02/08/2025 11:30 AM EDT Office Visit Cardiology, [facility] 132 [facility] [place] [address] Nannette Gonzales CRNP 400 [facility] [place] [address] 03/25/2025 11:20 AM EDT Office Visit Neurology [facility] 200 [facility] [address] Carlos Jiménez DO 200 [facility] [place] [address] 04/18/2025 11:00 AM EDT Office Visit Cardiology, [facility] 132 [facility] [place] [address] Rick Tan, DO [address] [place] [address] 07/11/2025 3:20 PM EDT Office Visit Pulmonary Medicine, [facility] [address] [place] [address] Kumar Noyola MD [address] [facility] [place] [address] Health Maintenance Due Date Last Done Comments [...] Advance Directives occurred with: Patient Care Teams Hard Metals Engraver Hand Relationship Specialty Start Date End Date Debbie Arango MD 2907 [facility] [place] [address] PCP - General Internal Medicine 03/04/23 documented as of this encounter
--- OUTSIDE RECORDS SUMMARY | 2024-10-16 13:17 | External Medical Summary | Summary of Care ---
Author Name Unknown Organization [facility] Address [address] [place] [address] Phone [phone] Care Team Providers Care Gun Fertilizer Name Role Phone Debbie Arango MD Primary Care Provider Reason for Visit * Reason Onset Date Comments Advice 08/20/2024 Encounter Details Date Type Department Care Team (Late st Contact Info) Description 08/20/2024 Telephone [facility], [place] [address] [place] [address] Services, [facility] [address] [place] [address] Advice Allergies No known active allergiesdocumented as of this encounter (statuses as of 08/23/2024) Medications Medication Sig Dispensed Refills Start Date [...] the morning. 34 Tablet 11 07/02/2024 Active metroNIDAZOLE 500 MG Oral Tablet (Flagyl) Take 1 Tablet by mouth in the morning and 1 Tablet at noon and 1 Tablet in the evening and 1 Tablet before bedtime. Do all this for 5 days. Start the day before POEM/EGD procedure and continue for 3 total days... 20 Tablet 08/19/2024 2024 Active Warfarin Sodium 5 MG Oral Tablet (Coumadin) Take 1 Tablet by mouth in the morning. OR DIRECTED BY THE COUMADIN. Do not start before August 26, 2024. 08/26/2024 Active Nystatin [id number] UNIT/ML Mouth/Throat Suspension Swish and swallow 5 mL in the morning and 5 mL at noon and 5 mL in the evening and 5 mL before bedtime. Do all this for 5 days. Start the day before POEM/EGD procedure and continue for 3 total days.. 100 mL 08/19/2024 2024 Active Pantoprazole Sodium 40 MG Oral Tablet [...] as of this encounter (statuses as of 08/23/2024) Active Problems Problem Noted Date Diagnosed Date [...] as of this encounter (statuses as of 08/23/2024) Resolved Problems Problem Noted Date Diagnosed Date Resolved Date Encephalopathy acute 08/18/2024 024 documented as of this encounter (statuses as of 08/23/2024) Social History Tobacco Use Types Packs/Day Years [...] encounter Miscellaneous Notes * Telephone Encounter - John Rivers IV, PA-C - 08/23/2024 4:04 PM EST Addressed is separate telephone encounter. * Telephone Encounter - Ni Andino OSA - 08/20/2024 12:32 PM EDT Neuroscience Phone Call Form- Requested Information from caller: Who is calling (not pt) name: Dyana relationship: Provider patient is established with: Lisa What is the concern or issue they are having: have some questions about general anesthesia that given to him two days ago -- does this procedure also needs general anesthesia or just local? He is also on warfarin Any additional details to add: no Phone number for nurse to call back: [phone] Are forms needed? no Medication Refill? no Verify Pharmacy information is correct. documented in this encounter Plan of Treatment Upcoming Encounters Date Type Department Care Team (Latest Contact Info) Description 2024 7:45 AM EST Hospital Encounter OR [facility] [place], OPERATING ROOM [facility] [place], [facility] [address] [place] [id number] Pa Gonzalez III, MD [address] [place], [place] [id number] 2024 7:45 AM EST - 2024 9:26 AM EST Surgery OR [facility] [place], OPERATING ROOM [facility] [place], [facility] [address] [place] [address] Pa Gonzalez III, MD [address] [place] [address] BIOPSY MUSCLE DEEP 08/26/2024 8:30 AM EST Scheduled Telephone Neurosurgery, [place] [address] [place] [address] [place], Nurse Follow Up Phone Call Neurosurg [address] [place] [address] 09/07/2024 9:30 AM EST Office Visit Cardiology, [facility] 132 [facility] [place] [address] Nannette Gonzales CRNP 400 [facility] [address] 09/15/2024 11:30 AM EST Telemedicine Cardiovascular Genetics, [facility] [address] [place] [address] Kayla Larson, MS [address] [place] Johns [address] 09/20/2024 10:30 AM EST Office Visit Cardiology, [facility] 132 [facility] [place] [address] Rick Tan, DO 132 [facility] [place] [address] 09/21/2024 3:00 PM EST Office Visit Neurology [facility] [address] [place] [address] Carlos Jiménez, DO [address] [place] [address] 07/11/2025 3:20 PM EDT Office Visit Pulmonary Medicine, [facility] 132 [facility] [place] [address] Kumar Noyola MD [address] [place] [address] Scheduled Procedures Name Priority Associated Diagnoses Date/Ti me BIOPSY MUSCLE DEEP Myositis, unspecified myositis type, unspecified site 2024 7:45 AM EST Health Maintenance Due Date Last Done Comments Depression Screening 1957 Alpha-1 Antitrypsin 1964 DTap/Tdap Vaccines (1 - Tdap) 1965 COVID-19 Vaccine ( - 2023-2 5 season) [...] Advance Directives occurred with: Patient Care Teams Gun Fertilizer Relationship Specialty Start Date End Date Debbie Arango MD 2907 [facility] [place] [address] PCP - General Internal Medicine 03/04/23 documented as of this encounter
--- OUTSIDE RECORDS SUMMARY | 2024-10-16 13:17 | External Medical Summary ---
Author Name Unknown Address Unknown Organization : Laboratory Report Ordering Provider Test Date Status DOMENIC RIVERA 08/18/2024 11:24:25 Final Observation Date Value Abnormality Reference (Units ) Status Glucose Point of Care 08/18/2024 11:24:25 180 Above high normal 70-120 (mg/dL) Final Performing Location
--- OUTSIDE RECORDS SUMMARY | 2024-10-16 13:17 | External Medical Summary | Summary of Care ---
Author Name Unknown Organization [facility] Address [address] [place] [address] Phone [phone] Care Team Providers Care Agriculture Scientist Name Role Phone Debbie Arango MD Primary Care Provider Reason for Referral * Evaluate & Treat - Unlimited Visits (Within 10 days (routine)) - Pending Review Specialty Diagnoses / Procedures Referred By Valarie stanley Referred To Contact Neurological Surgery Diagnoses Muscle weakness (generalized) Deirdre Sauceda CRNP [address] [place] [address] Referral ID Status Reason Start Date Expiration Date Visits Requested Visits Authorized [id number] Pending Review Specialty Services Required 4 [phone] Question Answer Referral Priority Within 10 days (routine) Where should this appointment be scheduled? [facility] What condition is the patient being seen for? Other Has the patient had an MRI or CT with in the past year? Yes Comments Notes posted. Encounter Details Date Type Department Care Team (Late st Contact Info) Description 08/09/2024 Orders Only Access Center, [address] *DO NOT REMOVE THIS DEPARTMENT* [place] [id number] Request, External Referral Muscle weakness (generalized)* Allergies No known active allergiesdocumented as of this encounter (statuses as of 08/09/2024) Medications Medication Sig Dispensed Refills Start Date [...] treatment daily. 30 g 3 11/18/2023 Active Warfarin Sodium 5 MG Oral Tablet [...] Active Midodrine HCl 2.5 MG Oral Tablet (Proamatine)Indicat ions:Hypotension Take 1 Tablet by mouth in the morning and 1 Tablet before bedtime. 180 Tablet 3 05/06/2024 Active Metoprolol Succinate ER 25 MG Oral Tablet Extended Release 24 Hour (toPROL XL)Indications:Paro xysmal atrial fibrillation (HCC) Take 1 Tablet by mouth in the morning and 1 Tablet before bedtime. May take an additional 25 mg if experiencing recurrent episodes of atrial fibrillation.. 200 Tablet 3 06/08/2024 Active Amiodarone HCl 200 MG Oral Tablet (Cordarone) Take 1 Tablet by mouth in the morning. 34 Tablet 11 07/02/2024 Active Metoprolol Tartrate 25 MG Oral Tablet (Lopressor) Take 1 Tablet by mouth daily as needed (for rapid heart rates). 60 Tablet 5 07/02/2024 Active Metoprolol Tartrate 25 MG Oral Tablet (Lopressor) Take 1 Tablet by mouth in the morning and 1 Tablet before bedtime. 12 Tablet 07/02/2024 Active Additional Information Patient not taking.Reported on 07/13/2024 Nystatin 584376 UNIT/ML Mouth/Throat Suspension Swish and swallow 5 mL in the morning and 5 mL at noon and 5 mL in the evening and 5 mL before bedtime. Start the day before POEM/EGD procedure and continue for 3 total days.. 60 mL 08/04/2024 Active metroNIDAZOLE 500 MG Oral Tablet (Flagyl) Take 1 Tablet by mouth in the morning and 1 Tablet at noon and 1 Tablet in the evening and 1 Tablet before bedtime. Start the day before POEM/EGD procedure and continue for 3 total days... 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 Paroxysmal atrial flutter 06/28/2024 Hypertrophic cardiomyopathy 06/28/2024 CKD (chronic kidney disease) stage 5, GFR less than 15 ml/min 05/21/2023 Peripheral vascular disease with claudication HTN, goal below 130/80 05/21/2023 documented as of this encounter (statuses as of 08/09/2024) Social History Tobacco Use Types Packs/Day Years [...] Department Care Team (Latest Contact Info) Description 4 8:00 AM EDT Hospital Encounter OR [facility], Operating Room, [facility] - 4th Floor [address] [place] [address] Uli Caraballo MD [address] [place] [address] 4 8:00 AM EDT - 4 9:31 AM EDT Surgery [facility] [address] [place] [address] Uli Caraballo MD [address] [place] [address] ESOPHAGOGASTRODUODENOSCOPY (EGD), FLEXIBLE, TRANSORAL, DIAGNOSTIC 4 7:30 AM EST Hospital [place] [facility] [facility] [facility] [address] [place] [phone] Pa Gonzalez III, MD [address] [place] [address] 4 7:30 AM EST - 4 9:31 AM EST Surgery [place] [facility] [address] [place] [address] Lisa III, Pa Duke MD [address] [place] [address] BIOPSY MUSCLE DEEP 4 8:30 AM EST Scheduled Telephone Neurosurgery, [place] [address] [place] [address] [place], Nurse Follow Up Phone Call Neurosurg [address] [place] [address] 4 9:30 AM EST Office Visit Cardiology, [facility] 132 [facility] [place] [address] Nannette Gonzales CRNP [address] [place] [address] 4 11:30 AM EST Telemedicine Cardiovascular Genetics, [facility] [place] [address] Kayla Larson, MS [address] [place] [address] 4 10:30 AM EST Office Visit Cardiology, [facility] 132 [facility] [place] [address] Rick Tan, DO [address] [place] [address] 4 3:00 PM EST Office Visit Neurology Amna Heredia [place] 200 [facility] [place] [address] Carlos Jiménez, 200 [facility] [place] [address] 5 3:20 PM EDT Office Visit Pulmonary Medicine, [facility] 132 [facility] [place] [address] Kumar Noyola MD [address] [place] [address] Scheduled Procedures Name Priority Associated Diagnoses Date/Ti me ESOPHAGOGASTRODUODENOSCOPY ( EGD), FLEXIBLE, TRANSORAL, DIAGNOSTIC Achalasia 08/18/2024 8:00 AM EDT LOWER ESOPHAGEAL MYOTOMY, TR ANSORAL (IE, PERORAL ENDOSCOPIC MYOTOMY [POEM]) Achalasia 08/18/2024 8:00 AM EDT BIOPSY MUSCLE DEEP Myositis, unspecified myositis type, unspecified site 2024 7:30 AM EST Scheduled Referrals Name Type Priority Associated Diagnoses Order Schedule NEUROSURGERY ADULT REFERRAL OP Referral Within 10 days (routine) Muscle weakness (generalized) Ordered: 08/09/2024 Health Maintenance Due Date Last Done Comments [...] as of this encounter Visit Diagnoses Diagnosis Muscle weakness (generalized)- Primary Achalasia Achalasia and cardiospasm Myositis, unspecified myositis type, unspecified site documented in this encounter Care Teams Agriculture Scientist Relationship Specialty Start Date End Date Debbie Arango MD [address] [place] [address] PCP - General Internal Medicine 03/04/23 documented as of this encounter
--- OUTSIDE RECORDS SUMMARY | 2024-10-16 13:17 | External Medical Summary | Summary of Care ---
Author Name Unknown Organization [facility] Address [address] [place] [address] Phone [phone] Care Team Providers Care Invasive Manager Name Role Phone Debbie Arango MD Primary Care Provider Encounter Details Date Type Department Care Team (Late st Contact Info) Description 07/23/2024 Telephone OR [facility], Operating Room, [facility] - 4th Floor [facility] [address] Uli Caraballo MD [address] [facility] [address] Allergies No known active allergiesdocumented as of this encounter (statuses as of 08/04/2024) Medications Medication Sig Dispensed Refills Start Date [...] Information Patient not taking.Reported on 07/13/2024 Nystatin [id number] UNIT/ML Mouth/Throat Suspension Swish and swallow 5 [...] as of this encounter (statuses as of 08/04/2024) Active Problems Problem Noted Date Diagnosed Date 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 Paroxysmal atrial flutter 06/28/2024 Hypertrophic cardiomyopathy 06/28/2024 CKD (chronic kidney disease) stage 5, GFR less than 15 ml/min 05/21/2023 Peripheral vascular disease with claudication HTN, goal below 130/80 05/21/2023 documented as of this encounter (statuses as of 08/04/2024) Social History Tobacco Use Types Packs/Day Years [...] as of this encounter Miscellaneous Notes * Addendum Note - Jeff Boyer MD - 08/04/2024 2:20 PM EDTAddended by: JEFF BOYER on: 08/04/2024 02:20 PM Modules accepted: Orders * Telephone Encounter - Jeff Boyer MD - 08/04/2024 12:36 PM EDT Absolutely He'll need -a dry abdomen >flagyl po qid 500 mg x 3 days starting 08/17 >nystatin 500,000 units qid x 3 days starting 08/17 Flagyl can interact w/ coumadin; will need to alert his coumadin clinic he'll be on flagyl these 3 days (not managed through [employer]) Will review w/ pt at dialysis clinic on 08/06. GI, FYI * Telephone Encounter - Uli Caraballo MD - 07/26/2024 8:15 AM EDT Laura, this patient is scheduled for POEM on 08/18, this is similar to doing other endoscopic resections with risk of bacterial translocation. Can you please help with prophylactic antibiotics and dialysis related management perioperatively. Thanks. * Telephone Encounter - Vale Gordon OSA - 07/23/2024 4:[address] Laura Frankel is deputy sheriff generalist Proc akhil'd for 08/18, pts son aware. * Telephone Encounter - Uli Caraballo MD - 07/23/2024 8:02 AM EDT Please schedule the patient for EGD with E-POEM with me at [facility] on 08/18. Please ask the patient who is his Instructor Physical so I can touch base with them. documented in this encounter Plan of Treatment Upcoming Encounters Date Type Department Care Team (Latest Contact Info) Description 4 8:00 AM EDT Hospital Encounter OR [facility], Operating Room, [facility] - 4th Floor [address] [place] [address] Uli Caraballo MD [address] [place] [address] 4 8:00 AM EDT - 4 9:31 AM EDT Surgery OR [facility], Operating Room, [facility] - 4th Floor [address] [place] [address] Uli Caraballo MD [address] [place] [address] ESOPHAGOGASTRODUODENOSCOPY (EGD), FLEXIBLE, TRANSORAL, DIAGNOSTIC 4 7:30 AM EST Hospital Encounter [place] [facility]PER[place] ROOM [facility], [facility] [address] [place] [phone] Pa Gonzalez III, MD [address] [facility] [place] [address] 4 7:30 AM EST - 4 9:31 AM EST Surgery OR [facility] [address] [place] [address] Pa Gonzalez III, MD [address] [facility] [place] [id number] BIOPSY MUSCLE DEEP 4 8:30 AM EST Scheduled Telephone Neurosurgery[facility] [address] [place] [id number] [place], Nurse Follow Up Phone Call Neurosurg [address] [facility] [place] [address] 4 9:30 AM EST Office Visit Cardiology, [facility] 132 [facility] [place] [address] Nannette Gonzales CRNP 400 [facility] [place] [address] 4 11:30 AM EST Telemedicine Cardiovascular Genetics, [facility] 132 [facility] [place] [address] Kayla Larson, MS 132 [facility] [place] [address] 4 10:30 AM EST Office Visit Cardiology, [facility] 132 [facility] [place] [address] Rick Tan, DO 132 [facility] [place] [address] 4 3:00 PM EST Office Visit Neurology [facility] 200 [facility] [place] [address] Carlos Jiménez, DO 200 [facility] [place] [address] 5 3:20 PM EDT Office Visit Pulmonary Medicine, 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
--- OUTSIDE RECORDS SUMMARY | 2024-10-16 13:17 | External Medical Summary | Summary of Care ---
Author Name Unknown Organization [facility] Address [address] [place] [address] Phone [phone] Care Team Providers Care Russian Rubber Name Role Phone Debbie Arango MD Primary Care Provider Encounter Details Date Type Department Care Team (Late st Contact Info) Description 08/10/2024 Telephone [facility]O [facility], Endoscopy [facility] [address] [place] [address] Uli Caraballo MD [address] [place] [address] Allergies No known active allergiesdocumented as of this encounter (statuses as of 08/10/2024) Medications Medication Sig Dispensed Refills Start Date [...] Tablet before bedtime. 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 Instructed to hold warfarin 5 days prior to procedure. Last dose 08/12/24. No Lovenox. Will resume warfarin following procedure as per Dr Caraballo. documented in this encounter Plan of Treatment Upcoming Encounters Date Type Department Care Team (Latest Contact Info) Description 4 8:00 AM EDT Hospital Encounter OR [facility], Operating Room, [facility] - 4th Floor 400 [place] [address] Uli Caraballo MD [address] [place] [address] 4 8:00 AM EDT - 4 9:31 AM EDT Surgery OR [facility], Operating Room, [facility] - 4th Floor [address] [place] [address] Uli Caraballo MD [address] [place] [address] ESOPHAGOGASTRODUODENOSCOPY (EGD), FLEXIBLE, TRANSORAL, DIAGNOSTIC 4 7:30 AM EST Hospital Encounter [place] [facility] ROOM [facility] [address] [place] [address] Pa Gonzalez III, MD [address] [place], [place] [address] 4 7:30 AM EST - 4 9:31 AM EST Surgery OR [facility], OPERATING ROOM [facility] [address] [place] [address] Pa Gonzalez III, MD [address] [place] [address] BIOPSY MUSCLE DEEP 4 8:30 AM EST Scheduled Telephone Neurosurgery, [place] [address] [place] [facility] [place] [address] [place], Nurse Follow Up Phone Call Neurosurg [address] [facility] [place] [address] 4 9:30 AM EST Office Visit Cardiology, [facility] 132 [facility] [place] [address] Nannette Gonzales CRNP 400 [place] [address] 4 11:30 AM EST Telemedicine Cardiovascular Genetics, [facility] 132 [facility] [place] [address] Kayla Larson, [place] [facility] [place] [address] 4 10:30 AM EST Office Visit Cardiology, [facility] 132 [facility] [place] [address] Rick aTn, DO 132 [facility] [place] [address] 4 3:00 PM EST Office Visit Neurology [facility] [place] 200 [facility] [place] [address] Carlos Jiménez, DO [address] [place] [address] 5 3:20 PM EDT Office Visit Pulmonary Medicine, [facility] 132 [facility] [place] [address] Kumar Nooyla MD [address] [place] [address] Scheduled Procedures Name Priority Associated Diagnoses Date/Ti [...] filedocumented as of this encounter Care Teams Russian Rubber Relationship Specialty Start Date End Date Debbie Arango MD [address] [facility] [place] [address] PCP - General Internal Medicine 03/04/23 documented as of this encounter
--- OUTSIDE RECORDS SUMMARY | 2024-10-16 13:17 | External Medical Summary | Summary of Care ---
Author Name Unknown Organization [facility] Address [address] [place] [address] Phone [phone] Care Team Providers Care Technical Operations Specialist Name Role Phone Debbie Arango MD Primary Care Provider Reason for Visit * Auth/Cert Specialty Diagnoses / Procedures Referred By Valarie stanley Referred To Contact Diagnoses Myositis, unspecified myositis type, unspecified site Myositis, unspecified myositis type, unspecified site [M60.9] Procedures MUSCLE BIOPSY, DEEP BIOPSY MUSCLE DEEP Pa Gonzalez III, MD [address] [place] [address] Or [facility] [address] [place] [address] Referral ID Status Reason Start Date Expiration Date Visits Re quested Visits Authorized [id number] Encounter Details Date Type Department Care Team (Latest Contact Info) Description 2024 8:12 AM EST - 2024 1:32 PM EST Hospital Encounter [facility] [address] [place] [address] Pa Gonzalez III, MD [address] [place] [address] Discharge Disposition: Home - Self Care Allergies [...] 1 Tablet before bedtime. 120 Tablet 08/19/2024 Active Amoxicillin-Pot Clavulanate 500-125 MG Oral Tablet (Augmentin) Take 1 Tablet by mouth in the morning and 1 Tablet before bedtime. 30 Tablet 08/19/2024 Active metroNIDAZOLE 500 MG Oral Tablet (Flagyl) Take 1 Tablet by mouth in the morning and 1 Tablet at noon and 1 Tablet in the evening and 1 Tablet before bedtime. Do all this for 5 days. Start the day before POEM/EGD procedure and continue for 3 total days... 20 Tablet 08/19/2024 4 Nystatin [id number] UNIT/ML Mouth/Throat Suspension Swish and swallow 5 mL in the morning and 5 mL at noon and 5 mL in the evening and 5 mL before bedtime. Do all this for 5 days. Start the day before POEM/EGD procedure and continue for 3 total days.. 100 mL 08/19/2024 4 documented as of this encounter (statuses as [...] Sign Reading Time Taken Comments Blood Pressure 97/68 2024 12:45 PM EST Pulse 114 2024 12:45 PM EST Temperature 36.7 C (98.1 F) 2024 12:[address] Respiratory Rate 25 2024 12:45 PM EST Oxygen Saturation 98% 2024 12:45 PM EST Inhaled Oxygen Concentration - - Weight 83.5 kg (184 lb) 2024 9:09 AM EST Height 172.7 cm (5' 8") 2024 9:09 AM EST Body Mass Index 27.98 2024 9:09 AM EST documented in this encounter Discharge Instructions * Discharge Instr - AVS* Dominic Couch PA-C - 2024 1:20 PM EST Discharge Date: [address] Gonzalez of the department of Neurosurgery at [phone] during business hours forany questions or test results. For after-hours emergencies call [phone] and have the regional sales director neurosurgery resident/PA paged. The information below provides you with the instructions and the list of medications you need to betaking following discharge from the hospital. If you have any questions, please ask before leaving.Please carry this letter with you when you see your doctor in the clinic. If you have questions, you can reach us at the numbers above. Brief summary of your inpatient care: You were admitted following a muscle biopsy. Overall, you hadan unremarkable course of hospitalization and were discharged to home in stable condition Your primary diagnosis at discharge was myositis/myopathy Your doctors during this hospitalization included: Dr Lisa Inpatient test results pending: None Operations & Procedures: left quadriceps muscle biopsy Complications: none significant Advance Directive Documented: Advance Directive Does the Patient have an Advance Directive? Yes Driving: Don't drive until you are off narcotics for one full week and can walk normally and firmlyapply the brake without pain Date you may return to work or school: N/A See your primary care physician (Debbie Arango MD) in 2 week(s). These follow-up appointments have been scheduled or are in the process of being scheduled. If you have questions about your appointments, please call . When asked to state the name of the physician, please say "Hospital Discharge". Future [facility] Appointments You may receive a call in 2-3 days as a follow up to your care. SPECIAL INSTRUCTIONS: You may take Tylenol for pain: Up to 1gram by mouth every 6 hours as needed. Do not exceed 4 grams in 24 hours No lifting greater than 8 lbs in each arm x 1 week Ok to shower tomorrow and daily thereafter Use a clean wash cloth and towel every day Do not scrub incision, let water run over it. Pat to dry. Do not touch pets or let pets lick any wounds. Do not sleep with pets. Wash hands often Protect incision from sun using shade only You will have pain, the goal of post hospital pain management is to maintain a pain level that is tolerable to the point of being reasonably comfortable, but not to the point of sleeping constantly because of narcotic or pain medication use. Avoid tobacco products of any kind due to these products or their contents affecting the human body's natural healing process. Follow these discharge instructions as they are written and be aware of signs and symptoms of incisional infection to include, butnot limited to, fever, chills, incisional swelling, redness, warmth, or copious amounts of discharge. A nurse from Neurosurgery will call you in the next couple of days to check when you. Thank you in advance for allowing us to take care of you and help you in the first steps of the healing process. Please note, the hospital may be sending you a survey on your experience. Please be kind enough to fill it out and send it back as we are always striving to make improvements where needed as well as sharing in your positive feedback! If you feel suicidal or homicidal, please call the crisis hotline at 3-720-048-TALK ([phone]). documented in this encounter Progress Notes * Dominic Cuoch PA-C - 2024 1:32 PM EST [address] [address] OUTPATIENT SURGERY DISCHARGE SUMMARY NOTE Name: Monster Samson Location: [place] [facility] Date: 2024 Time: 1:35 PM Surgery Date: 2024 Procedure: BIOPSY MUSCLE DEEP N/A Surgeon: Pa Gnozalez III, MD Discharge Diagnosis: myositis/myopathy After examination of this patient, I have determined he is ready for discharge to home when the patient meets criteria. Discharge instructions were given to the patient. documented in this encounter H&P Notes * Lance Hannah MD - 2024 6:57 AM EST NEUROLOGICAL SURGERY H&P NOTE [address] [address] Name: Monster Samson Location: Room/bed info not found Date: 2024 Time: 6:57 AM HISTORY OF PRESENT ILLNESS: Monster Samson is a 78 year old male with Hx muscle weakness who presents now for muscle biopsy. PAST MEDICAL HISTORY: No past medical history on file. PAST SURGICAL HISTORY: Past Surgical History: Procedure Laterality Date BOTULINUMTOXIN A (DEREK), 1 UNIT, INJ. N/A 02/03/2024 INJECTION, ONABOTULINUMTOXIN A, 1 UNIT (BOTOX) performed by Salena العلي MD at OR [facility] EGD, FLEXIBLE, DIAGNOSTIC N/A 02/03/2024 mild desquamation lower esophagus/tortuous and mildly dilated esophagus/ESOPHAGOGASTRODUODENOSCOPY (EGD), FLEXIBLE, TRANSORAL, DIAGNOSTIC performed by Salena العلي MD at OR [facility] EGD, FLEXIBLE, DIAGNOSTIC N/A 07/20/2024 ESOPHAGOGASTRODUODENOSCOPY (EGD), FLEXIBLE, TRANSORAL, DIAGNOSTIC performed by Jose Ramon Morgan MD at ENDOSCOPY [facility] EGD, FLEXIBLE, DIAGNOSTIC N/A 08/18/2024 ESOPHAGOGASTRODUODENOSCOPY (EGD), FLEXIBLE, TRANSORAL, DIAGNOSTIC performed by Uli Caraballo MD at [facility] LOWER ESOPHAGEAL MYOTOMY, TRANSORAL N/A 08/18/2024 LOWER ESOPHAGEAL MYOTOMY, TRANSORAL (IE, PERORAL ENDOSCOPIC MYOTOMY [POEM]) performed by Uli Caraballo MD at OR [facility] SOCIAL HISTORY: Social History Socioeconomic History Marital status: Spouse name: Not on file Number of children: Not on file Years of education: Not on file Highest education level: Not on file Occupational History Not on file Tobacco Use Smoking status: Former Types: Cigars Smokeless tobacco: Never Tobacco comments: 3-4 Cigars per day Vaping Use Vaping status: Never Used Substance and Sexual Activity Alcohol use: Yes Comment: 4 mixed drinks per week Drug use: Never Sexual activity: Not on file Other Topics Concern Not on file Social History Narrative Not on file Social Determinants of Health Financial Resource Strain: Not on file Food Insecurity: No Food Insecurity (08/18/2024) Food Insecurity Do you need food for this week? (Adult - for ages 18 years and over): No Are you able to get enough food for your family? (Household - for ages 0-17 years): Not on file Does your family need food this week? (Household - for ages 0-17 years): Not on file Do you always have enough food for your family? (Household - for ages 0-17 years): Not on file Transportation Needs: No Transportation Needs (08/18/2024) Transportation Needs Do you have trouble getting a ride to medical visits or work? (Adult - for ages 18 years and over):Not on file Does your family have a hard time getting a ride to doctors visits? (Household - for ages 0-17 years): Not on file Has lack of transportation kept you from medical appointments, meetings, work, or from getting things needed for daily living? Check all that apply. (Adult - for ages 18 years and over): No Do you (or your family) have trouble finding or paying for a ride (transportation)? (Household - for ages 0-17 years): Not on file Social Connections: Unknown (04/06/2024) Social Connections How often do you feel lonely or isolated from those around you? (Adult - for ages 18 years and over): Not on file Housing Stability: Low Risk (08/18/2024) Housing Stability Do you currently live in a detention or have no steady place to sleep at night? (Adult - for ages 18 years and over): Not on file Do you think you are at risk of becoming homeless? (Adult - for ages 18 years and over): Not on file Does your family worry about paying for your home or becoming homeless? (Household - for ages 0-17 years): Not on file Are you homeless or worried that you might be in the future? (Adult - for ages 18 years and over): No Are you (or your family) homeless or worried that you might be in the future? (Household - for ages0-17 years): Not on file Social History Substance and Sexual Activity Drug Use Never FAMILY HISTORY: Family History Problem Relation Name Age of Onset Other (accidental overdose-) Mother Diabetes Father MEDICATIONS: Current Medications - Prior to This Encounter Medication Sig Last Dose Discont. Amoxicillin-Pot Clavulanate 500-125 MG Oral Tablet (Augmentin) Take 1 Tablet by mouth in the morning and 1 Tablet before bedtime. metroNIDAZOLE 500 MG Oral Tablet (Flagyl) Take 1 Tablet by mouth in the morning and 1 Tablet at noon and 1 Tablet in the evening and 1 Tablet before bedtime. Do all this for 5 days. Start the day before POEM/EGD procedure and continue for 3 total days... Nystatin [id number] UNIT/ML Mouth/Throat Suspension Swish and swallow 5 mL in the morning and 5 mL at noon and 5 mL in the evening and 5 mL before bedtime. Do all this for 5 days. Start the day before POEM/EGD procedure and continue for 3 total days.. Pantoprazole Sodium 40 MG Oral Tablet Delayed Release (Protonix) Take 1 Tablet by mouth in the morning and 1 Tablet before bedtime. Warfarin Sodium 5 MG Oral Tablet (Coumadin) Take 1 Tablet by mouth in the morning. OR DIRECTED BY THE COUMADIN. Do not start before August 26, 2024. Amiodarone HCl 200 MG Oral Tablet (Cordarone) Take 1 Tablet by mouth in the morning. Metoprolol Succinate ER 25 MG Oral Tablet Extended Release 24 Hour (toPROL XL) Take 1 Tablet by mouth in the morning and 1 Tablet before bedtime. May take an additional 25 mg if experiencing recurrent episodes of atrial fibrillation.. Midodrine HCl 2.5 MG Oral Tablet (Proamatine) Take 1 Tablet by mouth in the morning and 1 Tablet before bedtime. Vitamin D 50 MCG (2000 UT) Oral Capsule Take 2,000 Units by mouth in the morning. Docusate Sodium 100 MG Oral Capsule (Colace) Take 1 Capsule by mouth in the morning. Pt takes this once daily . Gentamicin Sulfate 0.1 % External Cream Apply topically to affected area daily. Apply to exit site after treatment daily. Renal Vitamin 0.8 MG Oral Tablet Take 1 Tablet by mouth in the morning. Nutra/Shake Oral Liquid TAKE ONE BY MOUTH EVERY DAY TO SUPPLEMENT NUTRIENT INTAKE ALLERGIES: Review of patient's allergies indicates: No Known Allergies REVIEW OF SYSTEMS: Per HPI PHYSICAL EXAMINATION: Vital signs over last 24 hours: Systolic BP: No data recorded Temperature: No data recorded Pulse: Pulse Avg: No data recorded Respirations: No data recorded SpO2: No data recorded General Exam: Patient State: patient resting comfortably in bed, awake and alert Constitutional: non-obese, no deformities Respiratory: normal effort, no cyanosis Cardiovascular: regular rate and rhythm, no heaves Neurologic Examination [place] Coma Scale (GCS): Eyes Open: 4 = spontaneous Best Verbal Response: 5 = verbally appropriate for age Best Motor Response: 6 = obeys commands appropriate for age Coma Score: 15 Mental status: Alert, oriented to person, place, and time Language: expression / comprehension intact Speech: no dysarthria Cranial Nerves: grossly 2-12 intact Motor strength: Follows commands in all 4 extremities RUE: 5/5 LUE: 5/5 RLE: 5/5 LLE: 5/5 Reflexes: R: 2+ throughout L: 2+ throughout Babinski: negative bilaterally Cox's: negative bilaterally Clonus: negative bilaterally Sensation: Light Touch - intact bilateral upper and lower extremities LABS: Chemistry: Lab Results Component Value Date/Time BUN 36 (H) 08/19/2024 06:15 AM CREAT 7.0 (H) 08/19/2024 06:15 AM CREAT 6.7 (A) 05/24/2024 12:00 AM NA 134 (L) 08/19/2024 06:15 AM POTASSIUM 3.5 08/19/2024 06:15 AM POTASSIUM 4.5 05/24/2024 12:00 AM CO2 25 08/19/2024 06:15 AM Coagulation studies: Lab Results Component Value Date/Time INR 1.2 08/19/2024 06:15 AM Blood count: Lab Results Component Value Date/Time WBC 14.07 (H) 08/19/2024 06:15 AM HGB 11.5 (L) 08/19/2024 06:15 AM HCT 34.5 (L) 08/19/2024 06:15 AM PLT 226 08/19/2024 06:15 AM IMAGING STUDIES: Reviewed IMPRESSION: Monster Samson is a 78 year old male patient with Hx myositis, here for muscle biopsy. Present on admission: There is no height or weight on file to calculate BMI. 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 Gonzalez Associated attestation - Pa Gonzalez III, MD - 2024 9:19 AM EST I saw and evaluated the patient today. I have reviewed the resident/fellow physician note and agree. Lungs clear Heart sounds present documented in this encounter Nursing Notes * Janine Sullivan RN - 2024 12:05 PM EST Dual Licensed Skin Assessment completed by Mirian sullivan RN and Enid Dillard RN. The patient is/has a N/A Skin Breakdown (includes non blanchable erythema): Yes - Surgical/Procedural changes only. * Vannessa Hicks RN - 2024 10:00 AM EST Dual Licensed Skin Assessment completed by reji durand and wendy sanders. The patient is/has a N/A Skin Breakdown (includes non blanchable erythema): No * Suzette Davis RN - 08/20/2024 12:54 PM EDT Presurgery instructions sent to patient via Paradine message. Did not call. Pre-operative chart review completed. NO ANESTHESIA EVAL REQUESTED PER CASE DOCUMENTATION. PREOP PATIENT INFORMATION AND EDUCATION: MEDICATION INSTRUCTIONS: The day of surgery/procedure, you may TAKE the following medications with a sip of water up to 2 hours prior to your arrival time: Augmentin Metronidazole Pantoprazole Amiodarone Metoprolol Midodrine AVOID/ DO NOT TAKE any medications the morning of surgery/procedure that are not listed above. STOP taking the following medications the noted number of days prior to surgery/procedure unless otherwise specified by your surgeon: Please follow surgeon's instructions regarding use of Aspirin, Coumadin, Plavix, Eliquis, and any other blood thinner including NSAIDs (non-steroidal anti- inflammatory drugs, eg, Advil, Ibuprofen, Motrin, Aleve, Naproxen); if you have any questions regarding your anticoagulation therapy please contact your surgeon's clinic. Please verify any proposed stoppage of your anticoagulation therapy with the agent's prescribing provider. 10 days prior to surgery/procedure Stop all Herbal supplements, Green Tea, Turmeric, Melatonin, CBD, THC, etc. Stop all Vitamins (including Vitamin E) 24 hours prior to surgery/procedure DO NOT consume any alcohol. DO NOT use medical marijuana. DO NOT smoke or use tobacco products of any kind after midnight prior to surgery. *Using any of these products may increase your risks of procedural complications. IF IT IS LESS THAN RECOMMENDED STOPPAGE TIME PLEASE STOP AT TIME OF NOTIFICATION. FASTING RECOMMENDATIONS: To reduce risk, it is important for all elective surgery patients to follow the specific fasting guidelines listed below. If you have received more stringent guidelines, please follow the MOST RESTRICTIVE guidelines that you have been provided. DO NOT EAT after midnight on the night prior to your surgery date. You are allowed to drink clear liquids up to two hours prior to arrival time to the hospital or surgery center. Examples of clear liquids include water, clear fruit juice without pulp, clear carbonated beverages, clear tea, and black coffee. Any drinks given by your surgical service take as directed. THE DAY BEFORE YOUR SURGERY: -Drink plenty of fluid the day before your surgery. Contact your surgeon's office if you develop any of the following within 2 weeks of surgery: A cold Infection Fever Shingles Chicken pox or exposure to chicken pox Open areas such as scrapes, cuts, hernandez or other skin conditions Rashes GENERAL INSTRUCTIONS FOR PREPARING FOR SURGERY: BATHING INSTRUCTIONS: Bathe the evening prior to and the morning of surgery/procedure. Cleanse your body using ONLY anti-bacterial soap (eg, Dial, Safeguard) or any specific soap/cleansers and instructions provided by your surgeon (eg, Chlorhexidine). -You should brush your teeth the morning of surgery. Do NOT apply any lotions, powders, sprays, creams, oils, make-up, or deodorants after bathing. No hairspray, or nail croatian on fingers or toes. Day of surgery/procedure do not use tampons. If you wear contacts wear your eyeglasses if available otherwise bring your contact supplies with you to remove them prior to your surgery/procedure. If you wear glasses or dentures, please bring cases in which you can store them during your surgery. Please remove all piercings and jewelry and leave them at home. Wear comfortable and loose clothing. -Please leave all valuables at home. -If you use a CPAP and are staying overnight, please bring your mask and tubing with you to the hospital. -If you use an assistive mobility device (walker, cane, etc), please label it with your name and bring to hospital. -An escort city route driver is required if you are being discharged the same day of the surgery. You should have a responsible adult over the age of 18 [address] you home. This person should be present with youin the hospital at the time of discharge and for the first 24 hours after the surgery to support your needs. If you are taking a taxi home, you must have your responsible green party accompany you in the taxi ride home at the time of discharge. OR times subject to change. Please check mytraxil messages the day/evening before your surgery forany updates. PRE-OP: You will be taken to the pre-op area where your vital signs (blood pressure, pulse and temperature)will be taken. Any preparations that need to be done will be done there. When it is time for your surgery, you will be taken to the operating room. PARENTS OF PEDIATRIC PATIENTS WILL BE ALLOWED TO STAY WITH THEIR CHILDREN UNTIL THEY ARE ESCORTED TO THE OPERATING ROOM OUTPATIENT SURGERY PATIENTS: After your surgery you will be taken to the Same Day Surgery Unit when you are awake and will go home from there. You will get instructions about your home care before you leave. Arrange to have someone drive you home from the hospital. You may not drive for 24 hours after anesthesia. You must havean adult stay with you at home for 24 hours after your operation. This is very important. If you are not able to comply with these guidelines, your Short Stay surgery cannot be done. ADMISSION PATIENTS: After your stay in the recovery area, you will be taken to your room. Your family may visit you in your room based on current visitation policy. If a next day discharge is expected, it is important to make arrangements for a city route driver to take you home. Please be aware our visitation policies are subject to change Professionals, attendants, caregivers or family members are allowable visitors for patients with intellectual, developmental or cognitive disabilities, communication barriers or behavioral concerns. Because patients' and families' needs vary, they will be taken into account when applying visitation restrictions. [facility]: Contact # [phone] Directions to Surgical Suite in from the [facility] Entrance The Surgical Waiting Room can be found in the Lobby of [facility]. Enter through Main Lobby Entrance and the Waiting Room is directly in front of you. Proceed to check in and give them your name. Directions to Surgical Suite from the East Entrance Enter the East entrance and follow the hallway to the J elevator. Take the J elevator up to Level 1. Continue down the long hallway [facility] The Surgical Waiting Room will be on your Right. Proceed to check in and give them your Name. Directions to Surgical Suite from the Parking Garage Enter the [facility] lobby and proceed down the carrillo to the left. At the end of the carrillo, turn right. Continue down the long hallway to the main [facility]. The Surgical Waiting Room will be on your Right. Proceed to check in and give them your Name. PARMJIT Wade, RN [facility] 08/20/2024 documented in this encounter OR Notes * OR Surgeon - Pa Gonzalez III, MD - 2024 12:05 PM EST [address] [place] [address] [address] [facility] [address] OPERATIVE REPORT Name: Monster Samson Date: 2024 Time: 12:05 PM Location: [facility] Service: Neurosurgery Date of Operation: 2024 Pre-op Diagnosis: myositis/myopathy Post-op Diagnosis: same Operation: left quadriceps muscle biopsy Surgeon: Pa Gonzalez III, MD, PhD Assistants: None Anesthesia: 32 ml of Local anesthesia Drains: none Estimated Blood Loss: minimal IV Fluids: see anesthesia record. Urine Output: N/A Specimens/Disposition: left quadriceps muscle biopsy Apparent Intraoperative Complications: NONE Patient Condition: stable Disposition: In and Out recovery unit Attestation: I performed the procedure Operative Indication: The patient was referred for a quadriceps muscle biopsy. Neurology has suggested the patient has aninclusion body myositis and wants a quadriceps muscle biopsy. I reviewed Dr. Jiménez's notes. He isrequesting a quadriceps muscle biopsy. I reviewed with the patient and his son that I am like a automotive brake technician here. I do not decide why and I do not interpret the results. I reviewed the technical deta ils. We covered the risks including but not limited to: bleeding, infection, wound issue, lack of adiagnosis, hematoma, chronic pain amongst other things. He and his son wish to proceed. Will have my staff reach out and offer a date. He will need to sort out a plan for anticoagulation pause. All questions were answered. I collected informed consent this morning. Operation: The patient was brought to the OR and identified. The patient was kept supine on his gurney. All pressure points were padded carefully. The patient's left thigh incision was marked. The area was clipped with clippers as needed. The patient was administered preop antibiotics in accordance with SCIPprotocol within one hour of skin incision with no additional doses planned. The anterior thigh was cleansed with chlorhexidine brushes. The area was prepped and draped in the usual sterile fashion. Asurgical pause was performed. Local was administered. The incision was opened with a 10 blade. We dissected down through the subcutaneous tissues with the bovie and scissors and placed a self-retainer. The fascia above the quadriceps was opened revealing muscle. We dissected out a generous section of muscle. The muscle biopsy clamp was placed over this and we the cut free the muscle biopsy. We obtained meticulous hemostasis. The wound was irrigated with antibiotic containing irrigation. Additional local was given. The woundwas closed with 3-0 interrupted vicryl sutures in an interrupted fashion. The skin was closed with a running 4-0 monocryl absorbable suture in a subcuticular fashion. A final closing timeout was performed. Dermabond was applied. The drapes were taken down. The patient was transferred to the PACU instable and satisfactory condition. All needle, sponge, and instrument counts were correct at the end of the procedure. * Operative Report Brief - Pa Gonzalez III, MD - 2024 12:03 PM EST [address] [place] [id number] OPERATIVE REPORT-BRIEF Name: Monster Samson Date: 2024 Time: 11:48 AM Location: OR [facility] Service: Neurosurgery Date of Operation: 2024 Pre-op Diagnosis: myositis/myopathy Post-op Diagnosis: same Operation: left quadriceps muscle biopsy Surgeon: Pa Gonzalez III, MD, PhD Assistants: None Anesthesia: 32 ml of Local anesthesia Drains: none Estimated Blood Loss: minimal IV Fluids: see anesthesia record. Urine Output: N/A Specimens/Disposition: left quadriceps muscle biopsy Apparent Intraoperative Complications: NONE Patient Condition: stable Disposition: In and Out recovery unit Attestation: I performed the procedure documented in this encounter Plan of Treatment Upcoming Encounters Date Type Department Care Team (Late st Contact Info) Description 08/26/2024 8:30 AM EST Scheduled Telephone Neurosurgery, [place] [address] [place] [facility] [place] [address] [place], Nurse Follow Up Phone Call Neurosurg [address] [place] [address] 09/07/2024 9:30 AM EST Office Visit Cardiology, [facility] [place] [address] Nannette Gonzales CRNP [facility] [address] 09/15/2024 11:30 AM EST Telemedicine Cardiovascular Genetics, [facility] [address] [place] [address] Kayla Larson, MS [address] [place] [address] 09/20/2024 10:30 AM EST Office Visit Cardiology, [facility] [address] [place] [address] Rick Tan, DO [address] [place] [address] 09/21/2024 3:00 PM EST Office Visit Neurology [facility] [place] [address] [facility] [place] [address] [place] Jiménez, 200 [facility] [place] [address] 07/11/2025 3:20 PM EDT Office Visit Pulmonary Medicine, [facility] [place] [address] Kumar Noyola MD [address] [place] [address] Pending Results Name Type Priority Associated Diagnoses Date /Time SURGICAL PATHOLOGY Pathology Routine Myositis, unspecified myositis type, unspecified site 2024 11:35 AM EST Scheduled Orders Name Type Priority Associated Diagnoses Orde r Schedule TYPE AND SCREEN Lab STAT Perform N ow for 1 Occurrences starting 2024 until 2024 GLUCOSE METER, POINT OF CARE (COMMUNICATION ORDER) Point of Care Testing STAT Perform Now for 1 Occurrences starting 2024 until 2024 INR FINGERSTICK, POINT OF CARE (COMMUNICATION ORDER) Point of Care Testing STAT Perform Now for 1 Occurrences starting 2024 until 2024 SURGICAL PATHOLOGY Pathology Routine Myositis, unspecified myositis type, unspecified site Release Upon Ordering for 1 Occurrences starting 2024, 1 completed Health Maintenance Due Date Last Done Comments [...] Procedure Name Priority Date/Time Associated Diagnosis Comments GLUCOSE METER, POINT OF CARE JOSÉ 2024 9:46 AM EST POTASSIUM, WHOLE BLOOD STAT 2024 9:44 AM EST documented in this encounter Results * (ABNORMAL) GLUCOSE METER, POINT OF CARE (2024 9:46 AM EST) GLUCOSE - POCT 144(H) 70 - 120 mg/dL 2024 10:00 AM EST [facility] Blood Whole blood specimen / Unknown 2024 9:46 AM EST 2024 10:00 AM EST Pa Gonzalez III, MD LAB POINT O F CARE TEST DOCKED DEVICE UNSOLICITED RESULTS Performing Organization Address City/[facility]/ZIP Co de Phone Number [facility] [address] [place] [address] * POTASSIUM, WHOLE BLOOD (2024 9:44 AM EST) Pathologist [facility] Potassium 3.8 3.5 - 5.1 mmol/L 2024 10:04 AM EST LABORATORY [facility] Blood Venous blood specimen / Unknown Venipuncture / Unknown 2024 9:44 AM EST 2024 9:58 AM EST Pa Gonzalez III, MD LAB BLOOD O RDERABLES [facility] [place] [address] [place] [address] documented in this encounter Visit Diagnoses Diagnosis Myositis, unspecified myositis type, unspecified site documented in this encounter Administered Medications Inactive Administered Medications - up to 3 most recent administrations Medication Order MAR Action Action Date Dose Rate Site lidocaine 1 % inj 1 mg 1 mg (0.1 mL), Percutaneous, ONCE PRN Other, Difficult IV starts requiring > 20 guage catheter and/ or by patient request, Starting on Fri08/24/24 at 0929, Until Fri08/24/24 at 1733, For 1 dose, Pre-Op NSS infusion 25 mL/hr, Intravenous, All Dialysis Patients. Administer using a 500 ml bag., CONTINUOUS, Starting on Fri08/24/24 at 1015, Until Fri08/24/24 at 1733, Pre-Op New Bag 2024 9:51 AM EST 25 mL/hr 25 mL/hr documented in this encounter Active and Recently Administered Medications Due to Daylight Saving Time, this section may contain times in both EDT and EST. Continuous Medication Order 08/22/2024 08/23/2024 2024 NSS infusion 25 mL/hr, Intravenous, All Dialysis Patients. Administer using a 500 ml bag., CONTINUOUS, Starting on Fri08/24/24 at 1015, Until Fri08/24/24 at 1733, Pre-Op 0951 (New Bag - Prov ider: Vannessa Hicks RN) PRN Medication Order 08/22/2024 08/23/2024 2024 lidocaine 1 % inj 1 mg 1 mg (0.1 mL), Percutaneous, ONCE PRN Other, Difficult IV starts requiring > 20 guage catheter and/ or by patient request, Starting on Fri08/24/24 at 0929, Until Fri08/24/24 at 1733, For 1 dose, Pre-Op Lidocaine-EPINEPHrine 1 %-1:004336 inj (CANCELED) ONCE PRN INTRA PROCEDURE, Starting on Fri08/24/24 at 1133, Until Fri08/24/24 at 1152, Intra-Op 1133 (Given - Provid er: Pa Gonzalez III, MD) vancomycin 500 mg in sodium chloride IR 0.9 % 1,000 mL irrigation (CANCELED) Intra-Op 1136 (Given - Provid er: Pa Gonzalez III, MD - Comment: prn intraop) documented in this encounter Advance Directives * Full Code (Latest Code Status on File) Date Activated Date Inactivated Comments 08/18/2024 5:00 PM 08/19/2024 6:57 PM This order reflects the patients wishes and were consensually agreed upon. Question Answer Comments Discussion of Advance Directives occurred with: Patient Care Teams Technical Operations Specialist Relationship Specialty Start Date End Date Debbie Arango MD [address] [facility] [place] [address] PCP - General Internal Medicine 03/04/23 documented as of this encounter
--- OUTSIDE RECORDS SUMMARY | 2024-10-16 13:17 | External Medical Summary | Summary of Care ---
Author Name Unknown Organization [facility] Address [address] [place] [address] Phone [phone] Care Team Providers Care Exerciser Name Role Phone Debbie Arango MD Primary Care Provider Encounter Details Date Type Department Care Team (Late st Contact Info) Description 08/23/2024 Telephone Neurosurgery, [place] [address] [place] [address] John Rivers IV, PA-C [address] [place] [address] Allergies No known active allergiesdocumented as of [...] before August 26, 2024. 08/26/2024 Active Nystatin 227595 UNIT/ML Mouth/Throat Suspension Swish and swallow 5 [...] - John Rivers IV, PA-C - 08/23/2024 2:26 PM EST Called and spoke to patient's son, Dominic. States that the patient, Monster has been off of Coumadin since prior to his procedure with GI on 08/18/2024. He was remained off this medication. He hasa PT INR from 08/19/2024 that shows INR subtherapeutic for warfarin at 1.2. Muscle biopsy will be able to proceed as scheduled tomorrow, 2024. MAC sedation for procedure. John Rivers IV, PA-C 08/23/2024 2:27 PM documented in this encounter Plan of Treatment Upcoming Encounters Date Type Department Care Team (Latest Contact Info) Description 2024 7:45 AM EST Hospital Encounter OR [facility], OPERATING ROOM [facility], [place] [address] [facility] [phone] Pa Gonzalez III, MD [address] [place] [facility] [place] [address] 2024 7:45 AM EST - 2024 9:26 AM EST Surgery OR [facility], OPERATING ROOM [facility], [facility] [address] [facility] [phone] Pa Gonzalez III, MD [address] [facility], [place] [id number] BIOPSY MUSCLE DEEP 08/26/2024 8:30 AM EST Scheduled Telephone Neurosurgery, [place] [address] [place] [place] [address] [place], Nurse Follow Up Phone Call Neurosurg [address] [facility] [address] 09/07/2024 9:30 AM EST Office Visit Cardiology, [facility] 132 [facility] [place] [address] Nannette Gonzales CRNP [address] [place] [address] 09/15/2024 11:30 AM EST Telemedicine Cardiovascular Genetics, [facility] [address] [place] [address] Kayla Larson, [place] [address] [place] [address] 09/20/2024 10:30 AM EST Office Visit Cardiology, [facility] [address] [place] [address] Rick Tan O, DO [address] [place] [address] 09/21/2024 3:00 PM EST Office Visit Neurology [facility] [address] [place] [address] Carlos Jiménez, DO [address] [place] [address] 07/11/2025 3:20 PM EDT Office Visit Pulmonary Medicine, [facility] 132 [facility] [place] [address] Kumar Noyola MD [address] [facility] [place] [id number] Scheduled Procedures Name Priority Associated Diagnoses Date/Ti [...] Advance Directives occurred with: Patient Care Teams Exerciser Relationship Specialty Start Date End Date Debbie Arango MD [address] [facility] [place] [address] PCP - General Internal Medicine 03/04/23 documented as of this encounter
--- OUTSIDE RECORDS SUMMARY | 2024-10-16 13:17 | External Medical Summary ---
Author Name Unknown Address Unknown Organization K1F:LABORATORY [facility] - [address] [place] [address] Laboratory Report Ordering Provider Test Date Status IMMANUEL FREEMAN 08/18/2024 15:05:00 Final Observation Date Value Abnormality Reference (Units ) Status Albumin 08/18/2024 15:05:00 2.9 Below low normal 3.8-5.0 (g/dL) Final AST (Aspartate aminotransferase) 08/18/2024 15:05:00 30 10-50 (U/L) Final Alk Phos 08/18/2024 15:05:00 78 35-130 (U/L) Final ALT (Alanine aminotransferase) 08/18/2024 15:05:00 42 10-50 (U/L) Final Bilirubin, Total 08/18/2024 15:05:00 0.5 <=1.2 (mg/dL) Final Bilirubin, Direct 08/18/2024 15:05:00 <0.2 0.0-0.3 (mg/dL) Final Protein 08/18/2024 15:05:00 5.7 Below low normal 6.0-8.3 (g/dL) Final Performing Location LABORATORY [facility] - [address] [place] [address]
--- OUTSIDE RECORDS SUMMARY | 2024-10-16 13:17 | External Medical Summary | Summary of Care ---
Author Name Unknown Organization [facility] Address [address] [place] [address] Phone [phone] Care Team Providers Care Drop Hammer Setter Up Name Role Phone Debbie Arango MD Primary Care Provider Reason for Visit * Reason Onset Date Comments Advice 08/20/2024 Encounter Details Date Type Department Care Team (Late st Contact Info) Description 08/20/[address] [facility], [place] [address] [place] [address] Services, [facility] [address] [place] [address] Advice Allergies No known active allergiesdocumented as [...] before August 26, 2024. 08/26/2024 Active Nystatin 625924 UNIT/ML Mouth/Throat Suspension Swish and swallow 5 [...] Miscellaneous Notes * Telephone Encounter - Ni Andino OSA [...] Phone number for nurse to call back: [phone] Are forms needed? no Medication Refill? no Verify Pharmacy information is correct. documented in this encounter Plan of Treatment Upcoming Encounters Date Type Department Care Team (Latest Contact Info) Description 2024 7:45 AM EST Hospital Encounter OR [facility], OPERATING ROOM [facility], [place] [facility] [address] [facility] [place] [address] Pa Gonzalez III, MD [address] [facility] [place] [address] 2024 7:45 AM EST - 2024 9:26 AM EST Surgery OR [facility], OPERATING ROOM [facility], [facility] [address] [facility] [place] [phone] Pa Gonzalez III, MD [address] [facility], [place] [phone] BIOPSY MUSCLE DEEP 08/26/2024 8:30 AM EST Scheduled Telephone Neurosurgery, [place] [address] [facility], [place] [phone] [place], Nurse Follow Up Phone Call Neurosurg [address] [place] [address] 09/07/2024 9:30 AM EST Office Visit Cardiology, [facility] 132 [facility] [place] [address] Nannette Gonzales CRNP [address] [place] [address] 09/15/2024 11:30 AM EST Telemedicine Cardiovascular Genetics, [facility] [address] [place] [address] Kayla Larson, MS [address] [place] [address] 09/20/2024 10:30 AM EST Office Visit Cardiology, [facility] [address] [place] [address] Rick Tan O, DO [address] [place] [address] 09/21/2024 3:00 PM EST Office Visit Neurology [facility] [address] [place] [address] Carlos Jiménez, [address] [place] [address] 07/11/2025 3:20 PM EDT Office Visit Pulmonary Medicine, [facility] 132 [facility] [place] [address] Kumar Noyola MD [address] [place] [address] Scheduled Procedures Name Priority Associated Diagnoses Date/Ti [...] Advance Directives occurred with: Patient Care Teams Drop Hammer Setter Up Relationship Specialty Start Date End Date Debbie Arango MD [address] [place] [address] PCP - General Internal Medicine 03/04/23 documented as of this encounter
--- OUTSIDE RECORDS SUMMARY | 2024-10-16 13:17 | External Medical Summary ---
Author Name Unknown Address Unknown Organization K1F:LABORATORY [facility] - [address] [place] [address] Laboratory Report Ordering Provider Test Date Status PETENENASABRINA 08/18/2024 15:05:00 Final Observation Date Value Abnormality Reference (Units ) Status Magnesium 08/18/2024 15:05:00 1.6 1.5-2.6 (m g/dL) Final Performing Location LABORATORY [facility] - [address] [place] [address]
--- OUTSIDE RECORDS SUMMARY | 2024-10-16 13:17 | External Medical Summary | Summary of Care ---
Author Name Unknown Organization [facility] Address [address] [place] [address] Phone [phone] Care Team Providers Care Placement Manager Name Role Phone Debbie Arango MD Primary Care Provider Encounter Details Date Type Department Care Team (Late st Contact Info) Description 07/23/2024 Telephone [facility], Operating Room, [facility] - 4th Floor [address] [facility] [place] [address] Uli Caraballo MD [address] [facility] [address] Allergies No known active allergiesdocumented as of [...] Information Patient not taking.Reported on 07/13/2024 Nystatin 640209 UNIT/ML Mouth/Throat Suspension Swish and swallow 5 [...] flagyl these 3 days (not managed through [facility]) Will review w/ pt at dialysis clinic [...] 4:[address] Laura Frankel is rn access Proc akhil'd for 08/18, pts son aware. * Telephone Encounter - Uli Caraballo MD - 07/23/2024 8:02 AM EDT Please schedule the patient for EGD with E-POEM with me at [facility] on 08/18. 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 documented in this encounter Plan of Treatment Upcoming Encounters Date Type Department Care Team (Latest Contact Info) Description 4 8:00 AM EDT Hospital Encounter OR [facility], Operating Room, [facility] - 4th Floor [address] [place] [address] Uli Caraballo MD [address] [place] [address] 4 8:00 AM EDT - 4 9:31 AM EDT Surgery OR [facility], Operating Room, [facility] - 4th Floor [address] [place] [address] Uli Caraballo MD [address] [place] [address] ESOPHAGOGASTRODUODENOSCOPY (EGD), FLEXIBLE, TRANSORAL, DIAGNOSTIC 4 7:30 AM EST Hospital Encounter [place] [facility], [facility]PERATING ROOM [facility], [facility] [address] [place] [phone] Pa Gonzalez III, MD [address] [facility] [address] 4 7:30 AM EST - 4 9:31 AM EST Surgery [facility] [address] [place] [address] Pa Gonzalez III, MD [address] [place] [phone] BIOPSY MUSCLE DEEP 4 8:30 AM EST Scheduled Telephone [facility] [address] [place] [phone] [place], Nurse Follow Up Phone Call Neurosurg [address] [facility] [place] [address] 4 9:30 AM EST Office Visit Cardiology, [facility] 132 [facility] [place] [address] Nannette Gonzales CRNP 400 [facility] [place] [address] 4 11:30 AM EST Telemedicine Cardiovascular Genetics, [facility] [address] [facility] [place] [address] Kayla Larson, [place] 132 [facility] [place] [address] 4 10:30 AM EST Office Visit Cardiology, [facility] [address] [facility] [place] [address] Rick Tan, DO 132 [facility] [place] [address] 4 3:00 PM EST Office Visit Neurology [facility] 200 [facility] [place] [address] Carlos Jiménez, DO 200 [facility] [place] [address] 5 3:20 PM EDT Office Visit Pulmonary Medicine, [facility] 132 [facility] [place] [address] Kumar Noyola MD [address] [place] [address] Scheduled Procedures Name Priority Associated Diagnoses Date/Ti [...] site documented in this encounter Care Teams Placement Manager Relationship Specialty Start Date End Date Debbie Arango MD [address] [facility] [place] [address] PCP - General Internal Medicine 03/04/23 documented as of this encounter
--- OUTSIDE RECORDS SUMMARY | 2024-10-16 13:17 | External Medical Summary ---
Author Name Unknown Address Unknown Organization K1F:LABORATORY [facility] - [facility] [place] [address] Laboratory Report Ordering Provider Test Date Status IMMANUEL FREEMAN 08/18/2024 15:05:00 Final Observation Date Value Abnormality Reference (Units ) Status WBC, Total 08/18/2024 15:05:00 13.91 Above high normal 4.00-10.80 (K/uL) Final RBC 08/18/2024 15:05:00 3.97 4.50-5.25 (M/uL) Final Hemoglobin 08/18/2024 15:05:00 11.9 Below low normal 14.0-16.8 (g/dL) Final HCT 08/18/2024 15:05:00 35.5 Below low normal 40.0-48.4 (%) Final MCV 08/18/2024 15:05:00 89.4 82.0-99.5 (fL) Final MCH 08/18/2024 15:05:00 30.0 27.0-34.0 (pg) Final MCHC 08/18/2024 15:05:00 33.5 32.0-36.0 (g/dL) Final RDW 08/18/2024 15:05:00 15.2 11.5-15.5 (%) Final Platelets 08/18/2024 15:05:00 217 140-400 (K/uL) Final MPV 08/18/2024 15:05:00 10.2 6.6-11.1 (fL) Final Nucleated erythrocytes/100 leukocytes [Ratio] in Blood by Automated count 08/18/2024 15:05:00 0 <=0 (/100 WBCs) Final Performing Location LABORATORY [facility] - [address] [place] [address]
--- OUTSIDE RECORDS SUMMARY | 2024-10-16 13:17 | External Medical Summary ---
Author Name Unknown Address Unknown Organization K01:LABORATORY [facility] - [address] [place] [address] Laboratory Report Ordering Provider Test Date Status ROSIBEL NICOLE III 2024 09:44:30 Final On admission All Dialysis gordon clark Observation Date Value Abnormality Reference (Units ) Status Potassium, Whole Blood 2024 09:44:30 3.8 3.5-5.1 (mmol/L) Final Performing Location LABORATORY [facility] - [address] [place] [address]
--- OUTSIDE RECORDS SUMMARY | 2024-10-16 13:17 | External Medical Summary | Summary of Care ---
Author Name Unknown Organization [facility] Address [address] [place] [address] Phone [phone] Care Team Providers Care Cornice Maker Name Role Phone Debbie Arango MD Primary Care Provider Encounter Details Date Type Department Care Team (Late st Contact Info) Description 07/23/2024 Telephone OR GL, Operating Room, [facility] - 4th Floor [address] [facility] [place] [phone] Uli Caraballo MD [address] [facility] [address] Allergies No known active allergiesdocumented as of [...] Additional Information Patient not taking.Reported on 07/13/2024 Hospital, Clinic, or Other Facility Administered Medication [...] Telephone Encounter - Teena Galvan MD - 08/04/2024 12:36 PM EDT Absolutely He'll need >160 mg IP gentamicin 08/17 PM >flagyl po qid 500 mg x 3 days starting 08/17 >nystatin 500,000 units qid x 3 days starting 08/17 * Telephone Encounter - Uli Caraballo MD - 07/26/2024 8:15 AM EDT Laura, this patient is scheduled for POEM on 08/18, this is similar to doing other endoscopic resections with risk of bacterial translocation. Can you please help with prophylactic antibiotics and dialysis related management perioperatively. Thanks. * Telephone Encounter - Vale Gordon OSA - 07/23/2024 4:[address] Laura Frankel is administrative services manager Proc akhil'd for 08/18, pts son aware. * Telephone Encounter - Uli Caraballo MD - 07/23/2024 8:02 AM EDT Please schedule the patient for EGD with E-POEM with me at [facility] on 08/18. 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 documented in this encounter Plan of Treatment Upcoming Encounters Date Type Department Care Team (Latest Contact Info) Description 8:00 AM EDT Hospital Encounter OR [facility], Operating Room, [facility] - 4th Floor [address] [place] [phone] Uli Caraballo MD [address] [place] [address] 8:00 AM EDT - 9:31 AM EDT Surgery OR [facility], Operating Room, [facility] - 4th Floor [address] [place] [address] Uli Caraballo MD [address] [place] [address] ESOPHAGOGASTRODUODENOSCOPY (EGD), FLEXIBLE, TRANSORAL, DIAGNOSTIC 4 7:30 AM EST Hospital Encounter OR [facility], OPERATING ROOM [facility], [place] PAVALISIA [address] [facility] [place] [phone] Pa Gonzalez III, MD [address] [facility], [place] [id number] 4 7:30 AM EST - 4 9:31 AM EST Surgery OR [facility], OPERATING ROOM [facility] [place], [place] KRUSE [address] [facility] [place] [id number] Pa Gonzalez III, MD [address] [place], [place] [id number] BIOPSY MUSCLE DEEP 4 8:30 AM EST Scheduled Telephone Neurosurgery, [place] [address] [facility] [place] [id number] [place], Nurse Follow Up Phone Call Neurosurg [address] [place] [facility] [place] [address] 4 9:30 AM EST Office Visit Cardiology, [facility] [address] [facility] [place] [address] Nannette Gonzales CRNP [address] [place] [address] 4 11:30 AM EST Telemedicine Cardiovascular Genetics, [facility] [address] [place] [address] Kayla Larson, MS [address] [facility] [place] [address] 4 10:30 AM EST Office Visit [facility], [facility] [place] [address] Rick Tan DO [address] [place] [address] 4 3:00 PM EST Office Visit Neurology [facility] [address] [place] [address] Carlos Jiménez, DO [address] [place] [address] 5 3:20 PM EDT Office Visit Pulmonary Medicine, [facility] [address] [place] [address] Kumar Noyola MD [address] [place] [address] Scheduled Procedures Name Priority Associated Diagnoses Date/Ti [...] filedocumented as of this encounter Care Teams Cornice Maker Relationship Specialty Start Date End Date Debbie Arango MD [address] [facility] [place] [address] PCP - General Internal Medicine 03/04/23 documented as of this encounter
--- OUTSIDE RECORDS SUMMARY | 2024-10-16 13:17 | External Medical Summary ---
Author Name Unknown Address Unknown Organization : Laboratory Report Ordering Provider Test Date Status ROSIBEL NICOLE III 2024 09:46:17 Final Observation Date Value Abnormality Reference (Units ) Status Glucose Point of Care 2024 09:46:17 144 Above high normal 70-120 (mg/dL) Final Performing Location
--- OUTSIDE RECORDS SUMMARY | 2024-10-16 13:17 | External Medical Summary ---
Author Name Unknown Address Unknown Organization [id number]:[facility] - [facility] [place] [address] Laboratory Report Ordering Provider Test Date Status IMMANUEL FREEMAN 08/19/2024 06:15:00 Final Observation Date Value Abnormality Reference (Units ) Status WBC, Total 08/19/2024 06:15:00 14.07 Above high normal 4.00-10.80 (K/uL) Final RBC 08/19/2024 06:15:00 3.91 4.50-5.25 (M/uL) Final Hemoglobin 08/19/2024 06:15:00 11.5 Below low normal 14.0-16.8 (g/dL) Final HCT 08/19/2024 06:15:00 34.5 Below low normal 40.0-48.4 (%) Final MCV 08/19/2024 06:15:00 88.2 82.0-99.5 (fL) Final MCH 08/19/2024 06:15:00 29.4 27.0-34.0 (pg) Final MCHC 08/19/2024 06:15:00 33.3 32.0-36.0 (g/dL) Final RDW 08/19/2024 06:15:00 15.3 11.5-15.5 (%) Final Platelets 08/19/2024 06:15:00 226 140-400 (K/uL) Final MPV 08/19/2024 06:15:00 10.4 6.6-11.1 (fL) Final Nucleated erythrocytes/100 leukocytes [Ratio] in Blood by Automated count 08/19/2024 06:15:00 0 <=0 (/100 WBCs) Final Performing Location [facility] - [address] [place] [address]
--- OUTSIDE RECORDS SUMMARY | 2024-10-16 13:17 | External Medical Summary | Summary of Care ---
Author Name Unknown Organization [facility] Address [address] [place] [address] Phone [phone] Care Team Providers Care Timber Estimator Name Role Phone Maria Isabel Jenkins MD Primary Care Provider Reason for Visit * Auth/Cert Specialty Diagnoses / Procedures Referred By Valarie t Referred To Contact Diagnoses Achalasia Achalasia [K22.0] Procedures EGD, FLEXIBLE, DIAGNOSTIC LOWER ESOPHAGEAL MYOTOMY, TRANSORAL ESOPHAGOGASTRODUODENOSCOPY (EGD), FLEXIBLE, TRANSORAL, DIAGNOSTIC LOWER ESOPHAGEAL MYOTOMY, TRANSORAL (IE, PERORAL ENDOSCOPIC MYOTOMY [POEM]) Uli Caraballo MD [address] [place] [address] [facility] [address] [facility] [place] [address] Referral ID Status Reason Start Date Expiration Date Visits Re quested Visits Authorized [id number] Encounter Details Date Type Department Care Team (Latest Contact Info) Description 08/18/2024 6:42 AM EDT - 08/19/2024 2:52 PM EDT Hospital Encounter 6[facility] 6th Floor [address] [facility] [place] [address] Uli Caraballo MD [address] [place] [address] Jose Valencia MD [address] [place] [address] John Kennedy MD [address] [place], [place] [id number] Various: UGI,KRAVS Discharge Disposition: Home - Self Care Allergies No known active allergiesdocumented as of this encounter (statuses as of 08/20/2024) Medications Medication Sig Dispensed Refills Start Date [...] Active Midodrine HCl 2.5 MG Oral Tablet (Proamatine)Indic ations:Hypotensio n Take 1 Tablet by mouth in the morning and 1 Tablet before bedtime. 180 Tablet 3 4 Active Metoprolol Succinate ER 25 MG Oral Tablet Extended Release 24 Hour (toPROL XL)Indications:Pa roxysmal atrial fibrillation (HCC) Take 1 Tablet by mouth in the morning and 1 Tablet before bedtime. May take an additional 25 mg if experiencing recurrent episodes of atrial fibrillation.. 200 Tablet 3 4 Active Amiodarone HCl 200 MG Oral Tablet (Cordarone) Take 1 Tablet by mouth in the morning. 34 Tablet 11 4 Active metroNIDAZOLE 500 MG Oral Tablet (Flagyl) Take 1 Tablet by mouth in the morning and 1 Tablet at noon and 1 Tablet in the evening and 1 Tablet before bedtime. Do all this for 5 days. Start the day before POEM/EGD procedure and continue for 3 total days... 20 Tablet 4 08/24/20 24 Active Warfarin Sodium 5 MG Oral Tablet (Coumadin) Take 1 Tablet by mouth in the morning. OR DIRECTED BY THE COUMADIN. Do not start before August 26, 2024. 4 Active Nystatin 877931 UNIT/ML Mouth/Throat Suspension Swish and swallow 5 mL in the morning and 5 mL at noon and 5 mL in the evening and 5 mL before bedtime. Do all this for 5 days. Start the day before POEM/EGD procedure and continue for 3 total days.. 100 mL 4 08/24/20 24 Active Pantoprazole Sodium 40 MG Oral Tablet Delayed Release (Protonix) Take 1 Tablet by mouth in the morning and 1 Tablet before bedtime. 120 Tablet 4 10/18/20 24 Active Amoxicillin-Pot Clavulanate 500-125 MG Oral Tablet (Augmentin) Take 1 Tablet by mouth in the morning and 1 Tablet before bedtime. 30 Tablet 4 Active Warfarin Sodium 5 MG Oral Tablet (Coumadin) Take 1 Tablet by mouth in the morning. OR DIRECTED BY THE COUMADIN. 3 08/19/20 24 Discontinued Metoprolol Tartrate 25 MG Oral Tablet (Lopressor) Take 1 Tablet by mouth daily as needed (for rapid heart rates). 60 Tablet 5 4 08/19/20 24 Discontinued Metoprolol Tartrate 25 MG Oral Tablet (Lopressor) Take 1 Tablet by mouth in the morning and 1 Tablet before bedtime. 12 Tablet 4 08/19/20 24 Discontinued Nystatin [id number] UNIT/ML Mouth/Throat Suspension Swish and swallow 5 mL in the morning and 5 mL at noon and 5 mL in the evening and 5 mL before bedtime. Start the day before POEM/EGD procedure and continue for 3 total days.. 60 mL 4 08/19/20 24 Discontinued metroNIDAZOLE 500 MG Oral Tablet (Flagyl) Take 1 Tablet by mouth in the morning and 1 Tablet at noon and 1 Tablet in the evening and 1 Tablet before bedtime. Start the day before POEM/EGD procedure and continue for 3 total days... 12 Tablet 4 08/19/20 24 Discontinued documented as of this encounter (statuses as of 08/20/2024) Active Problems Problem Noted Date Diagnosed Date [...] as of this encounter (statuses as of 08/20/2024) Resolved Problems Problem Noted Date Diagnosed Date Resolved Date Encephalopathy acute 08/18/2024 024 documented as of this encounter (statuses as of 08/20/2024) Social History Tobacco Use Types Packs/Day Years [...] Sign Reading Time Taken Comments Blood Pressure 125/75 08/19/2024 11:08 AM EDT Pulse 65 08/19/2024 11:08 AM EDT Temperature 35.6 C (96.1 F) 08/19/2024 11:08 AM E DT Respiratory Rate 16 08/19/2024 11:08 AM EDT Oxygen Saturation 90% 08/19/2024 11:08 AM EDT Inhaled Oxygen Concentration - - Weight 88.7 kg (195 lb 9.6 oz) 08/19/2024 6:00 A M EDT Height 172.7 cm (5' 7.99") 08/18/2024 7:16 AM ED T Body Mass Index 29.75 08/18/2024 7:16 AM EDT documented in this encounter Functional Status Functional Status Response [...] problems 08/18/2024 documented as of this encounter Discharge Summaries * Jessica George PA-C - 08/19/2024 11:04 AM EDT [facility] [facility] [place] [id number] Admission Date: 08/18/2024 Discharge Date: 08/19/2024 RECOMMENDED TO DO FOR NEXT PROVIDER(S): Follow up w/ how he's doing after the procedure Follow up for coumadin dosing and INRs, coumadin on hold post procedure until 08/26/2024 Have him continue w/peritoneal dialysis REASON(S) FOR MEDICATION CHANGE(S): -augmentin, flagyl and nystatin for infection prophylaxis -PPI BID x 2 months for GI prophylaxis -hold coumadin for 7 days post procedure (plan to resume 08/26/2024) DISPOSITION ON DISCHARGE: home Active Hospital Problems Diagnosis ESRD on peritoneal dialysis (HCC) Achalasia of esophagus Post-operative state Post-operative pain 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 Valencia: "PRESENTING PROBLEM: patient is s/p POEM procedure for Achalasia of esophagus. HPI: 78 year old man with hx of ESRD on PD, achalasia of esophagus, who underwent POEM for esophageal achalasia earlier today. Post procedure was somewhat drowsy and taking some time awaking from anesthesia. Given this and given that he has ESRD and on PD, decision made to admit under SORU for 23 hours to monitor mental status and ensure he gets his PD. During my evaluation, patient is waking up more. He is awake, somewhat drowsy but that seems to be improving. He does not report any lightheadedness or dizziness. No nausea or vomiting. He does report right-sided chest pain, which is worse with deep inspiration. He gives the pain about 3/10 in intensity. Otherwise no other symptoms noted currently. His son Dominic is at bedside, it is assisting with history. Of note his son is healthcare proxy per the patient." HOSPITAL COURSE (focused): Patient was admitted for observation after E-POEM procedure for achalasia per Dr. Caraballo on 07/22/2024 complicated with right apical pneumothorax and pneumoperitoneum. Patient was treated conservatively and monitored overnight. Repeat CXR this AM w/improvement. Patient only has some mild epigastric/chest discomforts intermittently, which is expected after the procedure. Dr. Caraballo states patient is ok for discharge today w/5 days of augmentin, flagyl and nystatin, 2 months of PPI BID, coumadin on hold for 7 days and clear liquid diet x 2 days, followed by full liquid diet x 2 days thenadvance to soft diet as needed. No NSAIDs. He doesn't need any routine follow up in the GI office. He was seen by nephrology and patient will continue on peritoneal dialysis. He should follow up withhis PCP at the [facility] within 1 week. He states his [facility] doctor manages his coumadin dosing, patient's coumadin is on hold til Aug 26, 2024 -- then he can resume previous dose -- per PCP. Patient advised to discuss further coumadin dosing and when to get next INR per her PCP. Physical Exam on Day of Discharge: General: Pt in bed, alert, in no acute distress Head: Normocephalic, No masses, lesions, tenderness or abnormalities Oropharynx: mucous membranes moist without erythema or exudates Neck: supple, nontender, no cervical adenopathy palpable Heart: regular rate & rhythm and no murmur appreciated Lungs: no respiratory distress, CTA, without wheeze, rhonchi or crackles Abdomen: + BS, soft, nontender, nondistended, no rebound tenderness or guarding Lower Extremities: without pitting edema, no calf tenderness, no stasis changes noted Operations & Procedures: E-POEM procedure per Dr. Caraballo 08/18/2024 Complications: small R apical pneumothorax, pneumoperitoneum. Repeat CXR no longer shows pneumothorax and the pneumoperitoneum is improving. Significant Lab and Imaging Results: XR CHEST 1 VIEW Final Result PROCEDURE INFORMATION: Exam: XR Chest Exam date and time: 08/19/2024 7:37 AM Age: 78 years old Clinical indication: Other: Comparison; S/P surgery yesterday; PT C/O left shoulder pain this am; Additional info: Subcutaneous emphysema S/P poem TECHNIQUE: Imaging protocol: Radiologic exam of the chest. Views: 1 view. COMPARISON: DX XR CHEST 1 VIEW 08/18/2024 11:50 AM FINDINGS: Lungs: Bibasilar atelectatic changes. Pleural spaces: No pleural effusion. No pneumothorax. Heart/Mediastinum: No cardiomegaly. Bones/joints: Degenerative changes within the thoracic spine. Soft tissues: Bilateral subcutaneous emphysema. Intraperitoneal space: Interval decreasing pneumoperitoneum. IMPRESSION IMPRESSION: Interval decreasing pneumoperitoneum. THIS DOCUMENT HAS BEEN ELECTRONICALLY SIGNED BY MANJULA SUTHERLAND MD XR CHEST 1 VIEW Final Result PROCEDURE INFORMATION: Exam: XR Chest Exam date and time: 08/18/2024 11:50 AM Age: 78 years old Clinical indication: Other: Post egd/e-poem crepitus, comparison TECHNIQUE: Imaging protocol: Radiologic exam of the chest. Views: 1 view. COMPARISON: DX XR CHEST 1 VIEW 08/18/2024 10:56 AM FINDINGS: Lungs: Lung volumes are low with basilar increased markings, slightly improved aeration when compared with the prior study. Pleural spaces: Previously noted tiny right apical pneumothorax is not resolved on the current study. Heart/Mediastinum: Unremarkable. No cardiomegaly. Bones/joints: Unremarkable. Soft tissues: Subcutaneous emphysema is again noted at the root of the neck. Intraperitoneal space: Free intraperitoneal air is again noted below the diaphragms which is expected from the recent surgical procedure. IMPRESSION IMPRESSION: Previously noted right apical pneumothorax is not resolved on the current examination. Slightly improved aeration of the lungs. Otherwise no significant change from prior study. THIS DOCUMENT HAS BEEN ELECTRONICALLY SIGNED BY MICHELLE BURKETT MD XR CHEST 1 VIEW Final Result Addendum (preliminary) 2 of 2 There is a tiny right apical pneumothorax. THIS REPORT CONTAINS FINDINGS THAT MAY BE CRITICAL TO PATIENT CARE. The findings were verbally communicated via telephone conference with JAMIN RAI at 11:38 AM EDT on 08/18/2024. The findings were acknowledged and understood. THIS DOCUMENT HAS BEEN ELECTRONICALLY SIGNED BY MICHELLE BURKETT MD Final PROCEDURE INFORMATION: Exam: XR Chest Exam date and time: 08/18/2024 10:56 AM Age: 78 years old Clinical indication: Other: Crepitus post egd, e-poem TECHNIQUE: Imaging protocol: Radiologic exam of the chest. Views: 1 view. COMPARISON: CT CHEST WO(Adult) 06/01/2024 9:30 AM FINDINGS: Lungs: Lung volumes are low with increased interstitial markings and opacity along the right hemidiaphragm. Pleural spaces: Unremarkable. No pleural effusion. No pneumothorax. Heart/Mediastinum: Unremarkable. No cardiomegaly. Bones/joints: Unremarkable. Intraperitoneal space: There is notable gaseous distension below the diaphragms. Suspect free intraperitoneal air. Subcutaneous emphysema is noted about the root of the neck bilaterally. IMPRESSION IMPRESSION: Low lung volumes, findings compatible with CHF and/or pneumonia. Free intraperitoneal air below the diaphragms. Subcutaneous emphysema about the root of the neck. Suggest urgent CT of the thorax, abdomen and pelvis to further assess. THIS DOCUMENT HAS BEEN ELECTRONICALLY SIGNED BY MICHELLE BURKETT MD Results for orders placed or performed during the hospital encounter of 08/18/24 CBC Result Value Ref Range WBC 13.91 (H) 4.00 - 10.80 K/uL RBC 3.97 4.50 - 5.25 M/uL HGB 11.9 (L) 14.0 - 16.8 g/dL HCT 35.5 (L) 40.0 - 48.4 % MCV 89.4 82.0 - 99.5 fL MCH 30.0 27.0 - 34.0 pg MCHC 33.5 32.0 - 36.0 g/dL RDW 15.2 11.5 - 15.5 % PLT 217 140 - 400 K/uL MPV 10.2 6.6 - 11.1 fL nRBCs 0 <=0 /100 WBCs BASIC METABOLIC PANEL Result Value Ref Range BUN 35 (H) 6 - 20 mg/dL CREATININE 7.6 (H) 0.6 - 1.2 mg/dL EGFR 7 (L) >=60 mL/min SODIUM 134 (L) 135 - 146 mmol/L POTASSIUM 4.3 3.5 - 5.1 mmol/L CHLORIDE 96 (L) 98 - 107 mmol/L CO2 22 22 - 32 mmol/L ANION GAP 16 (H) 7 - 15 mmol/L GLUCOSE 195 (H) 70 - 120 mg/dL CALCIUM 8.1 (L) 8.4 - 10.2 mg/dL HEPATIC FUNCTION PANEL Result Value Ref Range Albumin 2.9 (L) 3.8 - 5.0 g/dL AST 30 10 - 50 U/L Alkaline Phosphatase 78 35 - 130 U/L ALT 42 10 - 50 U/L Bilirubin, Total 0.5 <=1.2 mg/dL Bilirubin, Direct <0.2 0.0 - 0.3 mg/dL Protein 5.7 (L) 6.0 - 8.3 g/dL MAGNESIUM Result Value Ref Range Magnesium 1.6 1.5 - 2.6 mg/dL PHOSPHORUS Result Value Ref Range Phosphorus 5.2 (H) 2.5 - 4.8 mg/dL PT INR Result Value Ref Range Prothrombin Time 15.1 11.6 - 15.2 seconds INR 1.2 0.8 - 1.2 COMPREHENSIVE METABOLIC PANEL Result Value Ref Range BUN 36 (H) 6 - 20 mg/dL CREATININE 7.0 (H) 0.6 - 1.2 mg/dL EGFR 8 (L) >=60 mL/min SODIUM 134 (L) 135 - 146 mmol/L POTASSIUM 3.5 3.5 - 5.1 mmol/L CHLORIDE 94 (L) 98 - 107 mmol/L CO2 25 22 - 32 mmol/L ANION GAP 15 7 - 15 mmol/L GLUCOSE 259 (H) 70 - 120 mg/dL Albumin 3.1 (L) 3.8 - 5.0 g/dL AST 28 10 - 50 U/L Alkaline Phosphatase 76 35 - 130 U/L Bilirubin, Total 0.4 <=1.2 mg/dL CALCIUM 8.3 (L) 8.4 - 10.2 mg/dL Protein 5.8 (L) 6.0 - 8.3 g/dL ALT 42 10 - 50 U/L PT INR Result Value Ref Range Prothrombin Time 15.3 (H) 11.6 - 15.2 seconds INR 1.2 0.8 - 1.2 CBC Result Value Ref Range WBC 14.07 (H) 4.00 - 10.80 K/uL RBC 3.91 4.50 - 5.25 M/uL HGB 11.5 (L) 14.0 - 16.8 g/dL HCT 34.5 (L) 40.0 - 48.4 % MCV 88.2 82.0 - 99.5 fL MCH 29.4 27.0 - 34.0 pg MCHC 33.3 32.0 - 36.0 g/dL RDW 15.3 11.5 - 15.5 % PLT 226 140 - 400 K/uL MPV 10.4 6.6 - 11.1 fL nRBCs 0 <=0 /100 WBCs MAGNESIUM Result Value Ref Range Magnesium 1.5 1.5 - 2.6 mg/dL PHOSPHORUS Result Value Ref Range Phosphorus 3.7 2.5 - 4.8 mg/dL GLUCOSE METER, POINT OF CARE Result Value Ref Range GLUCOSE - POCT 180 (H) 70 - 120 mg/dL Results Pending at Discharge: Lab Results Pending at Discharge: None MEDICATION UPDATES AT DISCHARGE START taking these medications INSTRUCTIONS amoxicillin-clavulanate 500-125 MG per tablet Commonly known as: Augmentin Take 1 Tablet by mouth in the morning and 1 Tablet before bedtime. metroNIDAZOLE 500 MG Tablet Commonly known as: Flagyl Take 1 Tablet by mouth in the morning and 1 Tablet at noon and 1 Tablet in the evening and 1 Tabletbefore bedtime. Do all this for 5 days. Start the day before POEM/EGD procedure and continue for 3 total days... nystatin [id number] UNIT/ML suspension Swish and swallow 5 mL in the morning and 5 mL at noon and 5 mL in the evening and 5 mL before bedtime. Do all this for 5 days. Start the day before POEM/EGD procedure and continue for 3 total days.. pantoprazole 40 MG Tbec Commonly known as: Protonix Take 1 Tablet by mouth in the morning and 1 Tablet before bedtime. CHANGE how you take these medications INSTRUCTIONS Warfarin Sodium 5 MG Tablet Commonly known as: Coumadin Start taking on: August 26, 2024 What changed: These instructions start on August 26, 2024. If you are unsure what to do until then, ask your doctor or other care provider. Take 1 Tablet by mouth in the morning. OR DIRECTED BY THE COUMADIN. Do not start before 2023. CONTINUE taking these medications INSTRUCTIONS amiodarone 200 MG Tablet Commonly known as: Cordarone Take 1 Tablet by mouth in the morning. Colace 100 MG Capsule Generic drug: Docusate Sodium Take 1 Capsule by mouth in the morning. Pt takes this once daily . gentamicin sulfate 0.1 % Crea Apply topically to affected area daily. Apply to exit site after treatment daily. metoprolol succinate XL 25 MG Tb24 Commonly known as: toPROL XL Take 1 Tablet by mouth in the morning and 1 Tablet before bedtime. May take an additional 25 mg if experiencing recurrent episodes of atrial fibrillation.. midodrine HCl 2.5 MG Tablet Commonly known as: Proamatine Take 1 Tablet by mouth in the morning and 1 Tablet before bedtime. Nutra/Shake Liqd TAKE ONE BY MOUTH EVERY DAY TO SUPPLEMENT NUTRIENT INTAKE Renal Vitamin 0.8 MG Tabs Take 1 Tablet by mouth in the morning. Vitamin D 50 MCG (2000 UT) Capsule Take 2,000 Units by mouth in the morning. SCHEDULED FOLLOW-UP: Future Appointments Appt Date/Time Provider Department 09/07/2024 9:30 AM Nannette Gonzales CRNP Cardiology, [facility] 09/15/2024 11:30 AM Kayla Larson MS Cardiovascular Genetics, [facility] 09/20/2024 10:30 AM Rick Tan DO Cardiology, [facility] 09/21/2024 3:00 PM Carlos Jiménez DO Neurology [facility] 07/11/2025 3:20 PM Kumar Noyola MD Pulmonary Medicine, [facility] Other Information Indwelling Devices: LINES ALL Duration Peripheral Line Left Wrist 20 Gauge 1 day Intraperitoneal Device Left;Lower Abdomen <1 day Vital Signs (last recorded): Most Recent Systolic BP: 126 mmHg (08/19/24 0816) Most Recent Diastolic BP: 97 mmHg (08/19/24 0816) Pulse: 69 (08/19/24 07) Resp: 16 (08/19/24 07) Most Recent Temperature: 35.61 C (08/19/24 0705) Weight: 88.7 kg (195 lb 9.6 oz) (08/19/24 0600) SpO2: 90 % (08/19/24 07) O2 flow rate: 2 L/MIN (08/18/24 1430) Allergies: Patient has no known allergies. Activity: no strenuous activity for 24 hours, then as tolerated Diet: CLD x 2 days, full liquid diet x 2 days, then advance to soft diet as tolerated Code Status: Full Code Condition on Discharge: stable Isolation status: None Cognition: normal HOSPITAL CONSULTS ORDERED: NEPHROLOGY CONSULT IP GASTROENTEROLOGY CONSULT IP REFERRING PHYSICIAN: REF: MARIA ISABEL JENKINS [address] [facility] [place] [phone] (office) [phone] (fax) PRIMARY CARE PROVIDER: PCP: Maria Isabel Jenkins MD [address] [facility] / [place] [address] (office) [phone] (fax) Note: To contact a physician responsible for this patients hospital care, please call [employer] [phone]. I spent a total of 55 minutes coordinating, documenting, and providing care for this patient excluding time spent in the performance of separately billed services or time spent by another provider/QHP. Case and plan of care for discharge discussed w/Dr. Kennedy, Dr. Caraballo and Amanda Wright ([facility]). Jessica George PA-C 08/19/2024 11:10 AM Associated attestation - John Kennedy MD - 08/19/2024 12:45 PM EDT I have reviewed the advanced practitioner's documentation on the date of service referenced in note, and I agree with, and take responsibility for the plan of care. I spent a total of 40 minutes coordinating, documenting, and providing care for this patient excluding time spent in the performance of separately billed services or time spent by another provider/QHP. documented in this encounter Discharge Instructions * Discharge Instr - AVS* Jessica George PA-C - 08/19/2024 9:15 AM EDT Discharge Date: 08/19/2024 The information below provides you with the instructions and the list of medications you need to betaking following discharge from the hospital. If you have any questions, please ask before leaving. If you have questions after leaving, you can reach us at the numbers below. YOUR HOSPITAL PROVIDERS: Discharging Provider: John Kennedy MD Provider Department: Hospital Medicine To reach this Provider Friday through Friday (8:00 AM to 4:30 PM) for any questions or test results: Call [phone] For after-hours concerns: Call [phone] and have your provider paged, or the provider gas combustion engineer for the Department of Hospital Medicine paged. Please note, the discharging provider will not be able to provide you with any medications refills.Please discuss these with your primary care provider. Worsening Symptoms: If you have new symptoms, or your symptoms get worse, please contact your Discharge Provider or Primary Care Provider (PCP). If these providers are not available, you can go to your [facility] during their business hours. In an EMERGENCY situation: Call 911 or go to the nearest emergency room. A BRIEF SUMMARY OF YOUR HOSPITAL STAY: You came to the hospital for a procedure per Dr. Caraballo Operations & Procedures performed: E-POEM procedure per Dr. Caraballo 08/18/2024 Complications: pneumoperitoneum (air in your abdomen), small pneumothorax (air in the lung) Inpatient test results that are pending at discharge: none Advance Directive Documented: Advance Directive Does the Patient have an Advance Directive? No YOUR FOLLOW UP APPOINTMENTS: Primary Care Provider Information: PCP: Maria Isabel Jenkins MD [address] [facility] / [place] [phone] (office) [phone] (fax) An appointment was requested with your PCP (Maria Isabel Jenkins MD) within 7 days. (Please take this form to this visit with your primary care physician.) You need the following studies in the future: PT INR: date - per your [facility] doctor INSTRUCTIONS: Diet: clear liquid diet for 2 days, then full liquid diet for 2 days then you can advance to a softdiet as tolerated Activity: As tolerated and No strenuous activity for 24 hours Additional Instructions: - Call your primary care physician or seek medical attention if you develop chest pain, shortness of breath, passing out, changes in mental status, abnormal bleeding. - Do not use alcohol products in anyway! - Do not take [id number] NSAIDs (nonsteroid anti-inflammatory medications); ie. Advil, Motrin, Ibuprofen, etc. - Adjustments of your Coumadin dosing will be determined by your Primary Care Physician - Complete the course of antibiotics as prescribed - you may use over the counter tylenol (acetaminophen) as needed for pain -- follow the instructions on the bottle documented in this encounter Progress Notes * Amanda Wright PA-C - 08/19/2024 9:49 AM EDT PROGRESS NOTE - Gastroenterology Service [facility]-[address] [place] [id number] Name: Monster Samson Location: [facility] [id number] Date: 08/19/2024 Time: 9:50 AM SUBJECTIVE: The patient was seen and examined, chart reviewed. Patient s/p EGD with E-POEM yesterday for therapy of achalasia - Impression: - Achalasia type III. Peroral endoscopic myotomy (POEM) with long 15 cm myotomy was performed. Patient reports trouble swallowing pills, but states he is having no issues with liquids thus far. Denies any abdominal pain or heartburn. Reports mild intermittent left shoulder pain and substernal discomfort with deep inspiration. Had dialysis early this morning. Labs - WBC 14.07, Hgb 11.5, BUN 36, creat 7.0. CXR - IMPRESSION: Interval decreasing pneumoperitoneum. ROS: Constitutional: No report of fever, chills or sweats Skin: No jaundice or rashes. Cardiac: No chest pain. Pulmonary: No cough or shortness of breath GI: Per HPI, otherwise negative. OBJECTIVE: Vital Signs Last 24 Hours: Systolic BP: Most Recent Systolic BP Av.3 mmHg Min: 78 mmHg Max: 139 mmHg Temperature: Most Recent Temperature Av.1 C Min: 35.28 C Max: 36.78 C Pulse: Pulse Av.3 Min: 48 Max: 116 Respirations: Resp Av.8 Min: 11 Max: 18 SpO2: SpO2 Av.1 % Min: 90 % Max: 98 % Constitutional: No acute distress. HEENT: No conjunctival pallor, sclera anicteric. CV: normal rate, normal rhythm Chest: normal respiratory effort, (+)few crackles GI: Abdomen is soft, non-tender and bowel sounds normal. Extremities: No edema. LABS: Labs reviewed as indicated below: Recent Results (from the past 24 hour(s)) GLUCOSE METER, POINT OF CARE Collection Time: 08/18/24 11:24 AM Result Value Ref Range GLUCOSE - POCT 180 (H) 70 - 120 mg/dL CBC Collection Time: 08/18/24 3:05 PM Result Value Ref Range WBC 13.91 (H) 4.00 - 10.80 K/uL RBC 3.97 4.50 - 5.25 M/uL HGB 11.9 (L) 14.0 - 16.8 g/dL HCT 35.5 (L) 40.0 - 48.4 % MCV 89.4 82.0 - 99.5 fL MCH 30.0 27.0 - 34.0 pg MCHC 33.5 32.0 - 36.0 g/dL RDW 15.2 11.5 - 15.5 % PLT 217 140 - 400 K/uL MPV 10.2 6.6 - 11.1 fL nRBCs 0 <=0 /100 WBCs BASIC METABOLIC PANEL Collection Time: 08/18/24 3:05 PM Result Value Ref Range BUN 35 (H) 6 - 20 mg/dL CREATININE 7.6 (H) 0.6 - 1.2 mg/dL EGFR 7 (L) >=60 mL/min SODIUM 134 (L) 135 - 146 mmol/L POTASSIUM 4.3 3.5 - 5.1 mmol/L CHLORIDE 96 (L) 98 - 107 mmol/L CO2 22 22 - 32 mmol/L ANION GAP 16 (H) 7 - 15 mmol/L GLUCOSE 195 (H) 70 - 120 mg/dL CALCIUM 8.1 (L) 8.4 - 10.2 mg/dL HEPATIC FUNCTION PANEL Collection Time: 08/18/24 3:05 PM Result Value Ref Range Albumin 2.9 (L) 3.8 - 5.0 g/dL AST 30 10 - 50 U/L Alkaline Phosphatase 78 35 - 130 U/L ALT 42 10 - 50 U/L Bilirubin, Total 0.5 <=1.2 mg/dL Bilirubin, Direct <0.2 0.0 - 0.3 mg/dL Protein 5.7 (L) 6.0 - 8.3 g/dL MAGNESIUM Collection Time: 08/18/24 3:05 PM Result Value Ref Range Magnesium 1.6 1.5 - 2.6 mg/dL PHOSPHORUS Collection Time: 08/18/24 3:05 PM Result Value Ref Range Phosphorus 5.2 (H) 2.5 - 4.8 mg/dL PT INR Collection Time: 08/18/24 3:05 PM Result Value Ref Range Prothrombin Time 15.1 11.6 - 15.2 seconds INR 1.2 0.8 - 1.2 COMPREHENSIVE METABOLIC PANEL Collection Time: 08/19/24 6:15 AM Result Value Ref Range BUN 36 (H) 6 - 20 mg/dL CREATININE 7.0 (H) 0.6 - 1.2 mg/dL EGFR 8 (L) >=60 mL/min SODIUM 134 (L) 135 - 146 mmol/L POTASSIUM 3.5 3.5 - 5.1 mmol/L CHLORIDE 94 (L) 98 - 107 mmol/L CO2 25 22 - 32 mmol/L ANION GAP 15 7 - 15 mmol/L GLUCOSE 259 (H) 70 - 120 mg/dL Albumin 3.1 (L) 3.8 - 5.0 g/dL AST 28 10 - 50 U/L Alkaline Phosphatase 76 35 - 130 U/L Bilirubin, Total 0.4 <=1.2 mg/dL CALCIUM 8.3 (L) 8.4 - 10.2 mg/dL Protein 5.8 (L) 6.0 - 8.3 g/dL ALT 42 10 - 50 U/L PT INR Collection Time: 08/19/24 6:15 AM Result Value Ref Range Prothrombin Time 15.3 (H) 11.6 - 15.2 seconds INR 1.2 0.8 - 1.2 CBC Collection Time: 08/19/24 6:15 AM Result Value Ref Range WBC 14.07 (H) 4.00 - 10.80 K/uL RBC 3.91 4.50 - 5.25 M/uL HGB 11.5 (L) 14.0 - 16.8 g/dL HCT 34.5 (L) 40.0 - 48.4 % MCV 88.2 82.0 - 99.5 fL MCH 29.4 27.0 - 34.0 pg MCHC 33.3 32.0 - 36.0 g/dL RDW 15.3 11.5 - 15.5 % PLT 226 140 - 400 K/uL MPV 10.4 6.6 - 11.1 fL nRBCs 0 <=0 /100 WBCs MAGNESIUM Collection Time: 08/19/24 6:15 AM Result Value Ref Range Magnesium 1.5 1.5 - 2.6 mg/dL PHOSPHORUS Collection Time: 08/19/24 6:15 AM Result Value Ref Range Phosphorus 3.7 2.5 - 4.8 mg/dL IMPRESSION: 78 year old male admitted for observation post E-POEM. RECOMMENDATIONS: Patient is doing well. Recommend clear liquids through today, full liquids for 2 days starting tomorrow, then soft diet x 2 days. BID PPI x 8 weeks with antireflux regimen. Antibiotics as per renal service. No NSAIDs for 5 days post procedure. Resume coumadin 7 days post procedure. I will discuss the case with my attending, Dr Caraballo. Associated attestation - Uli Caraballo MD - 08/19/2024 8:27 PM EDT I have reviewed the advanced practitioner's documentation on the date of service referenced in note, and I agree with, and take responsibility for the plan of care. Doing great today, denies any pain and tolerated liquids. Can be discharged home. I spent a total of 30 minutes coordinating, documenting, and providing care for this patient excluding time spent in the performance of separately billed services or time spent by another provider/QHP. documented in this encounter H&P Notes * Jose Valencia MD - 08/18/2024 3:45 PM EDT Images from the original note were not included. [facility] [id number] PRESENTING PROBLEM: patient is s/p POEM procedure for Achalasia of esophagus. HPI: 78 year old man with hx of ESRD on PD, achalasia of esophagus, who underwent POEM for esophageal achalasia earlier today. Post procedure was somewhat drowsy and taking some time awaking from anesthesia. Given this and given that he has ESRD and on PD, decision made to admit under SORU for 23 hours to monitor mental status and ensure he gets his PD. During my evaluation, patient is waking up more. He is awake, somewhat drowsy but that seems to be improving. He does not report any lightheadedness or dizziness. No nausea or vomiting. He does report right-sided chest pain, which is worse with deep inspiration. He gives the pain about 3/10 in intensity. Otherwise no other symptoms noted currently. His son Dominic is at bedside, it is assisting with history. Of note his son is healthcare proxy per the patient. Subjective Patient's past history, medications, and allergies were reviewed. Objective Physical Exam Most Recent Vital Signs: BP: 117 mmHg/65 mmHg (10/30/24 1636) Pulse: 61 (08/18/241635) Resp: 16 (08/18/241635) Temp: 35.28 C (08/18/241635) Temp Summary: Temp Min: 35.3 C (95.5 F) Max: 36.8 C (98.2 F) SpO2: 92 % (08/18/241635) O2 flow rate: 2 L/MIN (08/18/24 1430) Supplemental O2 Delivery: Room Air, None (08/18/241635) Constitutional: no acute distress HEENT: normal: normocephalic, atraumatic; no masses, tenderness, or adenopathy CV: normal rate and rhythm, no murmur, gallops or rub Chest: normal respiratory effort, breath sounds normal, chest wall normal, mildly diminished breathsounds in right upper zone. Abdomen: soft, normal bowel sounds, no tenderness, PD catheter in place. Extremities: no clubbing, no cyanosis, one plus pitting LE edema. Skin: warm, dry, intact: Neuro: alert, oriented to person, place, and time, normal mental status exam, mild drowsiness but improving during time of evaluation. Moving all four extremities. Peripheral Line Left Wrist 20 Gauge (Active) Number of days: 0 Intraperitoneal Device Left;Lower Abdomen (Active) Number of days: 0 STUDIES: Encounter Orders Labs and other studies reviewed with pertinent findings noted below: Results for orders placed or performed during the hospital encounter of 08/18/24 CBC Result Value Ref Range WBC 13.91 (H) 4.00 - 10.80 K/uL RBC 3.97 4.50 - 5.25 M/uL HGB 11.9 (L) 14.0 - 16.8 g/dL HCT 35.5 (L) 40.0 - 48.4 % MCV 89.4 82.0 - 99.5 fL MCH 30.0 27.0 - 34.0 pg MCHC 33.5 32.0 - 36.0 g/dL RDW 15.2 11.5 - 15.5 % PLT 217 140 - 400 K/uL MPV 10.2 6.6 - 11.1 fL nRBCs 0 <=0 /100 WBCs BASIC METABOLIC PANEL Result Value Ref Range BUN 35 (H) 6 - 20 mg/dL CREATININE 7.6 (H) 0.6 - 1.2 mg/dL EGFR 7 (L) >=60 mL/min SODIUM 134 (L) 135 - 146 mmol/L POTASSIUM 4.3 3.5 - 5.1 mmol/L CHLORIDE 96 (L) 98 - 107 mmol/L CO2 22 22 - 32 mmol/L ANION GAP 16 (H) 7 - 15 mmol/L GLUCOSE 195 (H) 70 - 120 mg/dL CALCIUM 8.1 (L) 8.4 - 10.2 mg/dL HEPATIC FUNCTION PANEL Result Value Ref Range Albumin 2.9 (L) 3.8 - 5.0 g/dL AST 30 10 - 50 U/L Alkaline Phosphatase 78 35 - 130 U/L ALT 42 10 - 50 U/L Bilirubin, Total 0.5 <=1.2 mg/dL Bilirubin, Direct <0.2 0.0 - 0.3 mg/dL Protein 5.7 (L) 6.0 - 8.3 g/dL MAGNESIUM Result Value Ref Range Magnesium 1.6 1.5 - 2.6 mg/dL PHOSPHORUS Result Value Ref Range Phosphorus 5.2 (H) 2.5 - 4.8 mg/dL PT INR Result Value Ref Range Prothrombin Time 15.1 11.6 - 15.2 seconds INR 1.2 0.8 - 1.2 GLUCOSE METER, POINT OF CARE Result Value Ref Range GLUCOSE - POCT 180 (H) 70 - 120 mg/dL Assessment and Plan IMPRESSION: Principal Problem: Encephalopathy acute Active Problems: Peripheral vascular disease with claudication (HCC) HTN, goal below 130/80 Paroxysmal atrial flutter (HCC) Hypertrophic cardiomyopathy (HCC) 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 * DIFFERENTIAL AND PLAN: - admit to med tele as SORU. - continue home medications as ordered. - complete flagyl and nystatin orders per nephro until 08/19/2024. - encourage ambulation as tolerated with assistance. - continue monitoring mental status. Is improving. - Nephro consulted. Plan to restart PD from tonight. - appreciate GI input. Per their recommendation: - Clear liquid diet for 2 days, then advance as tolerated to full liquid diet for 2 days then soft diet for 2 days. - No aspirin, ibuprofen, naproxen, or other non-steroidal anti-inflammatory drugs for 5 days. - Resume Coumadin (warfarin) at prior dose in 7 days. - Follow an antireflux regimen. - Use a proton pump inhibitor PO BID for 2 months. Started on protonix IV BID For now. - of note, post op mild apical pneumothorax and pneumoperitoneum noted. Both expected per GI as part of procedure. Monitor for worsening symptoms. In that case, we will need to repeat imaging. Otherwise, both these issues are self limiting. - right sided chest pain, monitor for now. Tylenol prn for pain. - updated son at bedside. PHARMACOLOGIC VTE PROPHYLAXIS:none. Encourage ambulation as tolerated. CODE STATUS: Full Code EXPECTED DISCHARGE DATE: No information available I spent a total of 75 minutes coordinating, documenting, and providing care for this patient excluding time spent in the performance of separately billed services or time spent by another provider/QHP. * Uli Caraballo MD - 08/18/2024 7:56 AM EDT Endoscopy Pre-Procedure Assessment Name: Monster Samson Date: 08/18/2024 Time: 7:56 AM Procedure(s): Upper GI Endoscopy; with Indication(s) of E POEM Endoscopy Pre-Procedure Assessment: Prior to the procedure, the patient was identified. The patient's history, medications and allergies were reviewed as per the Anesthesia Assessment. The patient is competent. The risks and benefits of the proposed procedure and the planned sedation were discussed with the patient. All questions were answered and informed consent for the procedure was obtained. BP 107/67 | Pulse 68 | Temp 36.1 C (97 F) (Temporal Artery) | Resp 18 | Ht 1.727 m (5' 7.99") |Wt 85.3 kg (188 lb) | SpO2 98% | BMI 28.59 kg/m | BSA 2.02 m Review of patient's allergies indicates: No Known Allergies Prior to Admission medications Medication Sig Last Dose Discont. metroNIDAZOLE 500 MG Oral Tablet (Flagyl) Take 1 Tablet by mouth in the morning and 1 Tablet at noon and 1 Tablet in the evening and 1 Tablet before bedtime. Start the day before POEM/EGD procedure and continue for 3 total days... 08/18/2024 Nystatin 327645 UNIT/ML Mouth/Throat Suspension Swish and swallow 5 mL in the morning and 5 mL at noon and 5 mL in the evening and 5 mL before bedtime. Start the day before POEM/EGD procedure and continue for 3 total days.. 08/17/2024 Amiodarone HCl 200 MG Oral Tablet (Cordarone) Take 1 Tablet by mouth in the morning. 08/18/2024 Metoprolol Tartrate 25 MG Oral Tablet (Lopressor) Take 1 Tablet by mouth in the morning and 1 Tablet before bedtime. Metoprolol Succinate ER 25 MG Oral Tablet Extended Release 24 Hour (toPROL XL) Take 1 Tablet by mouth in the morning and 1 Tablet before bedtime. May take an additional 25 mg if experiencing recurrent episodes of atrial fibrillation.. 08/18/2024 Midodrine HCl 2.5 MG Oral Tablet (Proamatine) Take 1 Tablet by mouth in the morning and 1 Tablet before bedtime. 08/18/2024 Vitamin D 50 MCG (2000 UT) Oral Capsule Take 2,000 Units by mouth in the morning. 08/18/2024 Docusate Sodium 100 MG Oral Capsule (Colace) Take 1 Capsule by mouth in the morning. Pt takes this once daily . 08/18/2024 Warfarin Sodium 5 MG Oral Tablet (Coumadin) Take 1 Tablet by mouth in the morning. OR DIRECTED BY THE COUMADIN. 08/12/2024 Gentamicin Sulfate 0.1 % External Cream Apply topically to affected area daily. Apply to exit site after treatment daily. 08/18/2024 Renal Vitamin 0.8 MG Oral Tablet Take 1 Tablet by mouth in the morning. 08/18/2024 Nutra/Shake Oral Liquid TAKE ONE BY MOUTH EVERY DAY TO SUPPLEMENT NUTRIENT INTAKE 08/17/2024 Metoprolol Tartrate 25 MG Oral Tablet (Lopressor) Take 1 Tablet by mouth daily as needed (for rapidheart rates). Physical Exam: Mental Status Examination: alert and oriented. Airway Examination: normal oropharyngeal airway and neck mobility. Respiratory Examination: clear to auscultation. CV Examination: Regular rate and rythm, no murmurs. ASA Grade: III - A patient with severe systemic disease. After reviewing the risks and benefits, the patient was deemed in satisfactory condition to undergothe procedure. The anesthesia plan was to use general anesthesia. Patient was explained in detail regarding risks, benefits, limitations and alternatives of the above endoscopic procedure. Risks of intravenous sedation used for procedure were also explained. Risks include, but not limited to perforation, bleeding, infection, respiratory distress, cardiac arrest and . Risk of acute pancreatitis and necrosis if ERCP is done. Patient is also aware about the possibility of missed lesion. Patient's questions were answered. The patient verbalized understandingthe information and agreed to undergo the procedure. Discussed with the patient that he/she is at an explicit higher risk for complications in comparison to other patients The proposed procedure was discussed in detail with the patient and family. All feasible options were reviewed with the appropriate indications and expected outcomes. Procedure is not without risk tothe patient. This procedure is considered of a significantly higher risk of complications. The benefit of the procedure was discussed. The alternative options including to not perform the procedure were discussed. The option of referral to surgery was discussed. The risks including but not limited to: Immediate and delayed perforation requiring repeat endoscopy, urgent or nonurgent surgical intervention, immediate and delayed bleeding causing hemodynamic instability requiring blood transfusion or consulting with IR for embolization, infections, leakage requ iring IR drain placement, admission to the hospital, recurrence of Achalasia (non-therapeutic procedure), chronic pain syndromes and problems associated with perforation causing pneumoperitoneum suchas shoulder pain, pneumothorax, hypercarbia or air embolis. After thorough consideration of the above, the patient and/or the appropriate legal client account representative gave written and verbal informed consent to the procedure. Uli Caraballo MD 08/18/2024 documented in this encounter Procedure Notes * Salena العلي MD - 08/18/2024 8:13 AM EDTAssociated Order(s): UPPER GI ENDOSCOPY [facility] Patient Name: Monster Samson Procedure Date: 08/18/2024 8:13 AM Date of : 1945 Admit Type: Outpatient Note Status: Draft Date of : 1945 Admit Type: Outpatient Age: 78 Room: OR 5 Gender: Male Note Status: Finalized Procedure: Upper GI endoscopy Indications: For therapy of achalasia Providers: Uli Caraballo MD (Doctor), Eliz Odom RN Referring MD: Salena العلي MD, Maria Isabel Jenkins Medicines: General Anesthesia Complications: No immediate complications. Procedure: Pre-Anesthesia Assessment: - Prior to the procedure, a History and Physical was performed, and patient medications, allergies and sensitivities were reviewed. The patient's tolerance of previous anesthesia was reviewed. - The risks and benefits of the procedure and the sedation options and risks were discussed with the patient. All questions were answered and informed consent was obtained. - Patient identification and proposed procedure were verified prior to the procedure by the physician and the nurse. The procedure was verified in the procedure room. - Pre-procedure physical examination revealed no contraindications to sedation. After obtaining informed consent, the endoscope was passed under direct vision. All instruments were visually inspected immediately before and after removal from the patient to ensure they are fully intact. Throughout the procedure, the patient's blood pressure, pulse, and oxygen saturations were monitored continuously. The was introduced through the mouth, and advanced to the second part of duodenum. The upper GI endoscopy was accomplished without difficulty. The patient tolerated the procedure well. 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 There was moderate resistance to endoscope advancement into the stomach. The Z-line was regular. The gastroesophageal junction and cardia were normal on retroflexed view. Preparations were made for peroral endoscopic myotomy (POEM). The esophagus was cleaned and irrigated using saline and suctioned. Mucosotomy followed by myotomy were performedin a posterior orientation. First, a submucosal injection of a solution of methylene blue and saline was used to lift the mucosa at the site of the initial mucosotomy. The initial mucosal incision was made longitudinally starting at 30 cm from the incisors using a HybridKnife T-Type. Next, the endoscope with a clear cap was used to enter into the submucosal tunnel. The submucosal tunnel was then further created by continued dissection. The submucosal tunnel was extended to 50 cm from the incisors which included extension into the cardia by 4 cm. The myotomy was started at 32 cm from the incisors using a HybridKnife T-Type to perform circular and full thickness myotomies. The myotomy was extended to 47cm from the incisors which included extension into the cardia by 2 cm. Intra procedure bleeding was minimal. After completion of the myotomy, there was no evidence of bleeding noted on the inspectionof the myotomy edges and submucosal tunnel. The myotomy was successfully performed. The mucosal entrance to the submucosal tunnel was closed using endoscopic suturing. The decision was made to use suturesto close the mucosal entrance to the POEM submucosal tunnel. The endoscope was removed, the OverStitch device was attached to the proximal and distal ends of the endoscope. The scope was reinserted. The device was loaded with 2.0 polypropylene suture. A total of one sutures in a running fashion were placed with cinches on both ends. Excellent tissue approximation was noted. Double scope transillumination used to confirm position in the cardia. Impression: - Achalasia type III. Peroral endoscopic myotomy (POEM) with long 15 cm myotomy was performed. Recommendation: - Discharge patient to home. - Clear liquid diet for 2 days, then advance as tolerated to full liquid diet for 2 days then soft diet for 2 days. - No aspirin, ibuprofen, naproxen, or other non-steroidal anti-inflammatory drugs for 5 days. - Resume Coumadin (warfarin) at prior dose in 7 days. - Follow an antireflux regimen. - Use a proton pump inhibitor PO BID for 2 months. - PO ABx per Renal team. - Return to referring physician. Uli Caraballo MD 08/18/2024 10:39:29 AM This report has been signed electronically. Estimated Blood Loss: Estimated blood loss: none. documented in this encounter Consult Notes * Katy Tristan MD - 08/19/2024 1:46 PM EDTAssociated Order(s): NEPHROLOGY CONSULT IP CONSULT - Nephrology [facility] [id number] Name: Monster Samson Location: [facility] [id number] Date: 08/19/2024 Time: 1:46 PM REQUESTING SERVICE: Hospitalist REASON FOR CONSULT: ESRD on PD a/ for EGD HPI: 78-year-old, ESRD on PD who was admitted for POEM for esophageal Achalasia on 08/18. No procedural complications but postprocedure she was found to be drowsy and was kept overnight for observation. Nephrology was called for PD management. Patient was on PD overnight as per her prescription. On review in the morning(while he was still on PD), awake alert. No shortness of breath and no pedal edema, he has managed to keep food down without any issues. PAST MEDICAL HISTORY: No past medical history on file. PAST SURGICAL HISTORY: Past Surgical History: Procedure Laterality Date BOTULINUMTOXIN A (DEREK), 1 UNIT, INJ. N/A 02/03/2024 INJECTION, ONABOTULINUMTOXIN A, 1 UNIT (BOTOX) performed by Salena العلي MD at [facility] EGD, FLEXIBLE, DIAGNOSTIC N/A 02/03/2024 mild desquamation lower esophagus/tortuous and mildly dilated esophagus/ESOPHAGOGASTRODUODENOSCOPY (EGD), FLEXIBLE, TRANSORAL, DIAGNOSTIC performed by Salena العلي MD at [facility] EGD, FLEXIBLE, DIAGNOSTIC N/A 07/20/2024 ESOPHAGOGASTRODUODENOSCOPY (EGD), FLEXIBLE, TRANSORAL, DIAGNOSTIC performed by Michelle Morgan MD at ENDOSCOPY [facility] EGD, FLEXIBLE, DIAGNOSTIC N/A 08/18/2024 ESOPHAGOGASTRODUODENOSCOPY (EGD), FLEXIBLE, TRANSORAL, DIAGNOSTIC performed by Uli Caraballo MD at OR [facility] LOWER ESOPHAGEAL MYOTOMY, TRANSORAL N/A 08/18/2024 LOWER ESOPHAGEAL MYOTOMY, TRANSORAL (IE, PERORAL ENDOSCOPIC MYOTOMY [POEM]) performed by Uli Caraballo MD at OR [facility] ALLERGIES: Patient has no known allergies. FAMILY HISTORY: Family History Problem Relation Name Age of Onset Other (accidental overdose-) Mother Diabetes Father SOCIAL HISTORY: Social History Tobacco Use Smoking status: Former Types: Cigars Smokeless tobacco: Never Tobacco comments: 3-4 Cigars per day Vaping Use Vaping status: Never Used Substance Use Topics Alcohol use: Yes Comment: 4 mixed drinks per week Drug use: Never ROS: Denies any other symptoms, all other ROS are negative. PHYSICAL EXAMINATION: Most Recent Vital Signs: BP: 125 mmHg/75 mmHg (08/19/24 1108) Pulse: 65 (08/19/24 110) Resp: 16 (08/19/241107) Temp: 35.61 C (08/19/24 110) Temp Summary: Temp Min: 35.3 C (95.5 F) Max: 36.6 C (97.9 F) SpO2: 90 % (08/19/24 110) O2 flow rate: 2 L/MIN (08/18/24 1430) Supplemental O2 Delivery: Room Air, None (08/19/24 110) Vital Signs Last 24 Hours: Systolic BP: Most Recent Systolic BP Av.5 mmHg Min: 95 mmHg Max: 139 mmHg Temperature: Most Recent Temperature Av.6 C Min: 35.28 C Max: 36.61 C Pulse: Pulse Av.3 Min: 48 Max: 110 Respirations: Resp Av.4 Min: 12 Max: 18 SpO2: SpO2 Av.5 % Min: 90 % Max: 98 % I/O Brief: Intake/Output Summary (Last 24 hours) at 08/19/2024 1346 Last data filed at 08/19/2024 0816 Gross per 24 hour Intake 759.62 ml Output -715 ml Net 1474.62 ml GEN: Comfortable HEENT: NC/AT, OP clear NECK: supple CV: RRR no M/R/G PULM: CTAB ABD: soft, non-tender, exit site clear of erythema, no tenderness EXT: No Edema NEURO: Awake and alert Skin: no rashes or significant lesions LABS: Lab results within last 7 days (see chart for full results) Units 08/19/24 0615 08/18/24 1505 SODIUM mmol/L 134* 134* POTASSIUM mmol/L 3.5 4.3 CHLORIDE mmol/L 94* 96* CO2 mmol/L 25 22 BUN mg/dL 36* 35* CREATININE mg/dL 7.0* 7.6* IMAGING: None today IMPRESSION: This is a 78 year old male, ESRD on PD who was admitted for POEM for achalasia. Post procedure he was kept overnight for observation as he continued to be drowsy. Plan- Patient had his regular PD cycler at as per his home prescription. No issues with PD encountered Awake alert on exam. Okay to be discharged from Nephrology point. Patient will contact PD nurse aiyana if he has any issues after discharge. documented in this encounter Nursing Notes * Eloy Catalan RN - 08/19/2024 2:47 PM EDT Discharge instructions given to patient and family member. They both verbalized understanding. Pt taken out in wheelchair escorted out by director industrial nursing. Leaving in private vehicle. * Eloy Catalan RN - 08/19/2024 12:13 PM EDT Called patients son. He will be here to pick patient up around 230. * Cortney Duran NA/UDC - 08/19/2024 9:21 AM EDT The MA will be reaching out to you will a follow up appointment date and time. If you do not hear anything please call number listed below. [address] [phone] * Tasia Esparza RN - 08/19/2024 7:38 AM EDT Pt disconnected from PD cycler w/o issue. Pt tolerated procedure well. Report to 6B RN Drain volume: 3037ml I drain: 0ml UF: -715ml Avg dwell: 1:48 * Lisette Carney RN - 08/18/2024 6:48 PM EDT PD cycler set up per physicians orders. Time out completed. Catheter exit site cleaned and dressingchanged per protocol. Site shows no s/s of infection. Skin is intact with no redness, no drainage present. Patient connected without issue and treatment initiated. Patient states no questions or concerns at this time. Report given to Eloy Phillip RN * Lilian Valverde RN - 08/18/2024 3:42 PM EDT VIRTUAL RN [facility]-[address] [id number] Name: Monster Samson Location: [facility] 6B-[id number]/D Date: 08/18/2024 Time: 3:43 PM I completed the Admission Navigator. The patient was in the hospital. I was not in a hospital or clinic location. After connecting through [employer], the patient was identified by name and date of and / or wristband checked. Patient (or authorized legal client account representative) was then informed that this was a Virtual Nurse visit and was being conducted confidentially over secure lines. I used a headset and other methods to ensure confidentiality for the patient. My office door was closed. No oneelse was in the room with me. Patient acknowledged consent and understanding of privacy and security of the Virtual Nurse visit. I presented the opportunity for the patient or authorized legal client account representative to ask any questions regarding the visit today. The patient or authorized legal client account representative agreed to participate. Patient is alert & oriented with call desouza in reach. Reminded to ring for assistance. Son at bedside * Eloy Catalan RN - 08/18/2024 3:10 PM EDT IN-HOUSE TRANSFER RECEIVING UNIT - NURSING [address] [address] Name: Monster Samson Location: [facility] 6B-6005/D Date: 08/18/2024 Time: 3:29 PM Patient received to room 6005 at [facility] Vital Signs: BP: 120 mmHg/68 mmHg (08/18/24 1507) Pulse: 57 (08/18/24 1507) Resp: 14 (08/18/24 1507) Temp: 36.61 C (08/18/24 1507) Temp Summary: Temp Min: 36.1 C (97 F) Max: 36.8 C (98.2 F) SpO2: 92 % (08/18/24 1507) O2 flow rate: 2 L/MIN (08/18/24 1430) Supplemental O2 Delivery: Room Air, None (08/18/24 1507) Pertinent transfer information upon arrival son at bedside at transfer Belongings received with patient: see documentation Verbal SBAR report received from: Billy Doss RN Dual Licensed Skin Assessment completed by Eloy Catalan RN and Jalen Ross RN. The patient is/has a N/A Skin Breakdown (includes non blanchable erythema): No * Oracio Doss RN - 08/18/2024 12:01 PM EDT 1040- Patient arrived PACU, assessment/vitals as charted. Crepitus noted bilateral upper chest. Lungs slightly diminished R side compared to Left. Heart rhythm SVT with bundle branch block. 1050- Dr Rai aware of above. Dr Caraballo also in to see, voices crepitus can be normal finding after this procedure. 1109- Chest xray obtained. Patient remains drowsy but rousable, denies pain, nausea, sob. 1115- Dr Rai returned to check on patient. 1118- Patient's heart rhythm converted spontaneously from SVT with BBB to sinus with 1st degree block. Per Dr Rai will obtain 12 lead if tachycardia returns. Patient remains resting quietly. 1155- Repeat chest xray obtained. Patient remains resting quietly. 1200- Son updated via phone. 1220- Dr Caraballo and butcher's assistant at bedside, assessed patient, Dr Rai also in to see, observed repeat x-ray. No new orders. 1248- Transferred to Same Day Surgery, resting quietly. Dr Caraballo in to check on patient, no new orders. 1305- Son at bedside. Patient choked on small sip of water, able to clear own airway, vitals remainstable. 1330- Patient remains rousable to verbal, denies pain, nausea. Able to swallow a few small sips of water. 1410- Dr Caraballo in to see patient again. Noted continued lethargy, taking only small sips of water. Plan to admit per Dr Caraballo. 1448- Patient transferred to via stretcher, son accompanying. 1500- Verbal report given to Eloy Catalan RN. * Eliz Odom RN - 08/18/2024 10:19 AM EDT EGD/ EPOEM completed in [facility] OR. Patient tolerated procedure well. Airway patent. Sedated by [facility] anesthesia staff, see anesthesia record for medications and vital signs. Abd soft. Resting with HOB elevated. Transferred to [facility] via stretcher by anesthesia staff and endo staff. Report given at time of transport. Bedside pre clean of endoscope at completion of procedure performed by Lalito De Leon RN documented in this encounter Miscellaneous Notes * Care Plan - Eloy Catalan RN - 08/19/2024 2:49 PM EDT Clinical Goal(s): Pt will be free from fall during this shift (08/19/24 0833) Possible barriers to meeting goal(s)/advancing plan of care: recent history of falls Stability of the patient: Moderately stable - low risk of patient condition declining or worsening Summary regarding today's goal(s): Met: pt was free f rom falls during this shift Recommendations: continue to monitor patient using fall precautions * Pt Handout (on AVS) - Sherron Doss RN - 08/19/2024 11:13 AM EDT [id number] Metronidazole Brand Name(s): Flagyl, Flagyl 375, Likmez; also available generically IMPORTANT WARNING: Metronidazole can cause cancer in laboratory animals. Talk to your doctor about the risks and benefits of taking this medication. WHY is this medicine prescribed? Metronidazole is used to treat infections of the reproductive system, gastrointestinal (GI) tract, skin, heart, bone, joint, lung, blood, nervous system, and other areas of the body. It is also used to treat certain sexually transmitted diseases (STDs). Metronidazole is also used to treat bacterial vaginosis (an infection caused by too much of certain types of harmful bacteria in the vagina) in women. Metronidazole is in a class of medications called nitroimidazole antimicrobials. It works by stopping the growth of bacteria. Antibiotics will not work for colds, flu, or other viral infections. Using antibiotics when they are not needed increases your risk of getting an infection later that resists antibiotic treatment. HOW should this medicine be used? Metronidazole comes as a tablet, a capsule, and suspension (liquid) to take by mouth. Metronidazoletablets and suspension are usually taken as a one-time dose (or divided into two doses on 1 day) ortwo to four times daily for up to 10 days or longer. Metronidazole capsules are usually taken two to four times daily for up to 10 days or longer. Follow the directions on your prescription label care fully, and ask your doctor or pharmacist to explain any part you do not understand. Take metronidazole exactly as directed. Do not take more or less of it or take it more often than prescribed by your doctor. Shake the oral suspension well before each use to mix the medication evenly. Use a dosing spoon, oral syringe, or measuring cup to measure the correct amount of medication. You may not receive the correct amount of medication if you use a household spoon to measure your dose. Swallow the extended-release tablets whole; do not split, chew, or crush them. Continue to take this medication even if you feel well. Do not stop taking it without talking to your doctor. If you stop taking this medication too soon or skip doses, your infection may not be completely treated and the bacteria may become resistant to antibiotics. Ask your pharmacist or doctor for a copy of the junior account manager's information for the patient. Are there OTHER USES for this medicine? This medication may be prescribed for other uses; ask your doctor or pharmacist for more information. What SPECIAL PRECAUTIONS should I follow? Before taking metronidazole, tell your doctor if you or your child has Cockayne syndrome (an inherited condition that causes sensitivity to light, premature aging, failure to gain weight and grow, and delayed development). Your doctor will probably tell you that you or your child should not take metronidazole. tell your doctor and pharmacist if you are allergic to metronidazole, benznidazole, fexinidazole, secnidazole (Solosec), tinidazole (Tindamax), any other medications, or any of the ingredients in metronidazole preparations. Ask your pharmacist for a list of the ingredients. tell your doctor or pharmacist if you are taking the following medication or have stopped takingit within the past two weeks: disulfiram. tell your doctor and pharmacist what prescription, nonprescription medications, vitamins, nutritional supplements, and herbal products you are taking or plan to take. Your doctor may need to change the doses of your medications or monitor you carefully for side effects. The following nonprescription or herbal products may interact with metronidazole: cimetidine (Tagamet HB). Be sure to let your doctor and pharmacist know that you are taking this medication beforeyou start taking metronidazole. Do not start this medication while taking metronidazole without discussing with your healthcare provider. tell your doctor if you have or have ever had Crohn's disease, blood problems, or kidney or liver disease. Also, tell your doctor if you have a yeast infection or a medical condition that affects your brain. tell your doctor if you are or plan to become . If you become while taking metronidazole, call your doctor. Women who are generally should not take metronidazoleduring the first trimester (first 3 months) of . tell your doctor if you are or plan to breastfeed. If you take metronidazole whileyou are , your baby may receive some metronidazole in breast milk. If you are , your doctor may tell you to pump and discard your milk while you are taking metronidazole andfor 48 hours after your final dose. Talk to your doctor about the best way to feed your baby while you are taking metronidazole. do not drink alcoholic beverages or take products with alcohol or propylene glycol while taking this medication and for at least 3 days after your final dose. Alcohol and propylene glycol may cause nausea, vomiting, stomach cramps, headache, sweating, and flushing (redness of the face) when taken with metronidazole. What should I do IF I FORGET to take a dose? Take the missed dose as soon as you remember it. However, if it is almost time for the next dose, skip the missed dose and continue your regular dosing schedule. Do not take a double dose to make up for a missed one. What SIDE EFFECTS can this medicine cause? Metronidazole may cause side effects. Tell your doctor if any of these symptoms are severe or do not go away: vomiting nausea diarrhea constipation upset stomach stomach cramps loss of appetite headache dry mouth sharp, unpleasant metallic taste furry tongue; mouth or tongue irritation Some side effects can be serious. If you experience any of the following symptoms, call your doctor immediately: numbness, pain, burning, or tingling in your hands or feet seizures rash itching hives peeling or blistering skin flushing stuffy nose, fever, sore throat, or other signs of infection dizziness difficulty speaking problems with coordination confusion Metronidazole may cause other side effects. Call your doctor if you have any unusual problems whiletaking this medication. If you experience a serious side effect, you or your doctor may send a report to the Food and Drug Administration's (FDA) MedWatch Adverse Event Reporting program online (https://www.fda.gov/Safety/MedWatch) or by phone ( ). What should I know about STORAGE and DISPOSAL of this medication? Keep this medication in the container it came in, tightly closed, and out of reach of children. Store it at room temperature and away from light, excess heat and moisture (not in the bathroom). It is important to keep all medication out of sight and reach of children as many containers (such as weekly pill minders and those for eye drops, creams, patches, and inhalers) are not child-resistant and young children can open them easily. To protect young children from poisoning, always lock safety caps and immediately place the medication in a safe location - one that is up and away and out of their sight and reach. https://www.upandaway.org Unneeded medications should be disposed of in special ways to ensure that pets, children, and otherpeople cannot consume them. However, you should not flush this medication down the toilet. Instead,the best way to dispose of your medication is through a medicine take-back program. Talk to your pharmacist or contact your local garbage/recycling department to learn about take-back programs in your community. See the FDA's Safe Disposal of Medicines website (https://goo.gl/c4Rm4p) for more information if you do not have access to a take-back program. What should I do in case of OVERDOSE? In case of overdose, call the poison control helpline at . Information is also available online at https://www.poisonhelp.org/help. If the victim has collapsed, had a seizure, has trouble breathing, or can't be awakened, immediately call emergency services at 390. Symptoms of overdose may include the following: nausea vomiting loss of muscle coordination numbness, pain, burning, or tingling in your hands or feet seizures What OTHER INFORMATION should I know? Keep all appointments with your doctor and the laboratory. Your doctor will order certain lab teststo check your response to metronidazole. Before having any laboratory test, tell your doctor and the laboratory personnel that you are taking metronidazole. Do not let anyone else take your medication. Your prescription is probably not refillable. If you still have symptoms of infection after you finish the metronidazole, call your doctor. It is important for you to keep a written list of all of the prescription and nonprescription (ocfv-wjk-rmflrlh) medicines you are taking, as well as any products such as vitamins, minerals, or otherdietary supplements. You should bring this list with you each time you visit a doctor or if you areadmitted to a hospital. It is also important information to carry with you in case of emergencies. This report on medications is for your information only, and is not considered individual patient advice. Because of the changing nature of drug information, please consult your physician or pharmacist about specific clinical use. The [employer] represents that the information provided hereunder was formulated with a reasonable standard of care, and in conformity with professional standards in the field. The [employer] makes no representations or warranties, express or implied, including, but not limited to, any implied warranty of merchantability and/or fitness for a particular purpose, with respect to such information and specifically disclaims all such warranties. Users are advised that decisions regarding drug therapy are complex medical decisions requiring the independent, informed decision of an appropriate health patient care manager, and the information is provided for informational purposes only. The entire monograph for a drug should be reviewed for a thorough understanding of the drug's actions, uses and side effects. The [employer] does not endorse or recommend the use of any drug.The information is not a substitute for medical care. [facility] Patient Medication Information?. Copyright, 2023. [employer], [address] [place] [address], [facility] [address], [place], [place]. All Rights Reserved. Duplication for commercial use must be authorized by [facility]. Selected Revisions: October 03, 2023. [facility] Patient Medication Information?. Copyright, 2023 * Pt Handout (on AVS) - Sherron Doss RN - 08/19/2024 11:13 AM EDT [id number] Amoxicillin and Clavulanic Acid Brand Name(s): Augmentin (as a combination product containing Amoxicillin, Clavulanate), Augmentin XR (as a combination product containing Amoxicillin, Clavulanate); also available generically WHY is this medicine prescribed? The combination of amoxicillin and clavulanic acid is used to treat certain infections caused by bacteria, including infections of the ears, lungs, sinus, skin, and urinary tract. Amoxicillin is in aclass of medications called penicillin-like antibiotics. It works by stopping the growth of bacteria. Clavulanic acid is in a class of medications called beta-lactamase inhibitors. It works by preventing bacteria from destroying amoxicillin. Antibiotics will not work for colds, flu, or other viral infections. Using antibiotics when they are not needed increases your risk of getting an infection later that resists antibiotic treatment. HOW should this medicine be used? The combination of amoxicillin and clavulanic acid comes as a tablet, a chewable tablet, and a suspension (liquid) to take by mouth. It is usually taken with a meal or snack every 8 hours (three times a day) or every 12 hours (twice a day). To help you remember to take amoxicillin and clavulanate, take it around the same times every day. Follow the directions on your prescription label carefully,and ask your doctor or pharmacist to explain any part you do not understand. Take amoxicillin and clavulanic acid exactly as directed. Do not take more or less of it or take it more often than prescribed by your doctor. Shake the liquid well before each use to mix the medication evenly. The chewable tablets should be chewed thoroughly before they are swallowed. You should begin to feel better during the first few days of treatment with amoxicillin and clavulanic acid. If your symptoms do not improve or get worse, call your doctor. If you are taking the suspension, do not use a household spoon to measure your dose. Use a properlymarked measuring device such as a medicine spoon or oral syringe. Ask your doctor or pharmacist if you need help getting or using a measuring device. Take amoxicillin and clavulanic acid until you finish the prescription, even if you feel better. Ifyou stop taking amoxicillin and clavulanic too soon, or skip doses, your infection may not be completely treated and the bacteria may become resistant to antibiotics. Are there OTHER USES for this medicine? This medication may be prescribed for other uses; ask your doctor or pharmacist for more information. What SPECIAL PRECAUTIONS should I follow? Before taking amoxicillin and clavulanic acid, tell your doctor and pharmacist if you are allergic to amoxicillin, clavulanic acid, penicillin,cephalosporins, any other medications, or any of the ingredients in amoxicillin and clavulanic acidtablet, chewable tablet, and oral suspension. Ask your pharmacist for a list of the ingredients. tell your doctor and pharmacist what prescription and nonprescription medications, vitamins, nutritional supplements, and herbal products you are taking. Your doctor may need to change the doses of your medications or monitor you carefully for side effects. You should know that amoxicillin and clavulanic acid may decrease the effectiveness of oral contraceptives ( control pills). You will need to use another method of contraception to prevent while taking amoxicillin and clavulanic acid. Talk to your doctor about other ways to prevent while you are taking this medication. tell your doctor if you have ever had any liver problems after you have previously taken amoxicillin and clavulanic acid. Your doctor may tell you not to take amoxicillin and clavulanic acid. tell your doctor if you have mononucleosis (a virus; also called 'mono') and if you have or haveever had kidney or liver disease, allergies, asthma, hay fever, or hives. tell your doctor if you are , plan to become , or are . If you become while taking amoxicillin and clavulanic acid, call your doctor. if you have phenylketonuria (PKU, an inherited condition in which a special diet must be followed to prevent damage to your brain that can cause severe intellectual disability), you should know that amoxicillin and clavulanic acid chewable tablets and oral suspension are sweetened with aspartamethat forms phenylalanine. What SPECIAL DIETARY instructions should I follow? Unless your doctor tells you otherwise, continue your normal diet. What should I do IF I FORGET to take a dose? Take the missed dose as soon as you remember it. However, if it is almost time for the next dose, skip the missed dose and continue your regular dosing schedule. Do not take a double dose to make up for a missed one. What SIDE EFFECTS can this medicine cause? Amoxicillin and clavulanic acid may cause side effects. Tell your doctor if any of these symptoms are severe or do not go away: diarrhea upset stomach vomiting vaginal itching and/or discharge Some side effects can be serious. If you experience any of the following symptoms, call your doctor immediately: watery or bloody stools, stomach cramps, or fever during treatment or for up to two or more months after stopping treatment severe vomiting that may occur 1 to 4 hours after you take amoxicillin and clavulanic acid rash itching hives difficulty breathing or swallowing swelling of the face, throat, tongue, lips, and eyes wheezing peeling, blistering, or shedding skin a return of fever, sore throat, chills, or other signs of infection yellowing of the skin or eyes, pain or discomfort in right upper stomach area, fatigue, loss of appetite, bleeding or bruising more easily than normal, or dark urine Amoxicillin and clavulanic acid may cause other side effects. Call your doctor if you have any unusual problems while taking this medication. If you experience a serious side effect, you or your doctor may send a report to the Food and Drug Administration's (FDA) MedWatch Adverse Event Reporting program online (https://www.fda.gov/Safety/MedWatch) or by phone ( ). What should I know about STORAGE and DISPOSAL of this medication? Keep this medication in the container it came in, tightly closed, and out of reach of children. Store the tablets at room temperature and away from excess heat and moisture (not in the bathroom). Keep liquid medication in the refrigerator, tightly closed, and dispose of any unused medication after 10 days. It is important to keep all medication out of sight and reach of children as many containers (such as weekly pill minders and those for eye drops, creams, patches, and inhalers) are not child-resistant and young children can open them easily. To protect young children from poisoning, always lock safety caps and immediately place the medication in a safe location - one that is up and away and out of their sight and reach. https://www.upandGrooveshark.org Unneeded medications should be disposed of in special ways to ensure that pets, children, and otherpeople cannot consume them. However, you should not flush this medication down the toilet. Instead,the best way to dispose of your medication is through a medicine take-back program. Talk to your pharmacist or contact your local garbage/recycling department to learn about take-back programs in your community. See the FDA's Safe Disposal of Medicines website (https://goo.gl/c4Rm4p) for more information if you do not have access to a take-back program. What should I do in case of OVERDOSE? In case of overdose, call the poison control helpline at . Information is also available online at https://www.poisonhelp.org/help. If the victim has collapsed, had a seizure, has trouble breathing, or can't be awakened, immediately call emergency services at 271. Symptoms of overdose may include the following: cloudy or bloody urine decreased urination What OTHER INFORMATION should I know? Keep all appointments with your doctor and the laboratory. Your doctor may order certain lab tests to check your body's response to amoxicillin and clavulanic acid. If you are diabetic, use Clinistix or TesTape (not Clinitest) to test your urine for sugar while taking this medication. Do not let anyone else take your medication. Your prescription is probably not refillable. If you still have symptoms of infection after you finish the amoxicillin and clavulanic acid, call your doctor. It is important for you to keep a written list of all of the prescription and nonprescription (wutp-rns-loomsaw) medicines you are taking, as well as any products such as vitamins, minerals, or otherdietary supplements. You should bring this list with you each time you visit a doctor or if you areadmitted to a hospital. It is also important information to carry with you in case of emergencies. This report on medications is for your information only, and is not considered individual patient advice. Because of the changing nature of drug information, please consult your physician or pharmacist about specific clinical use. The [employer] represents that the information provided hereunder was formulated with a reasonable standard of care, and in conformity with professional standards in the field. The [employer] makes no representations or warranties, express or implied, including, but not limited to, any implied warranty of merchantability and/or fitness for a particular purpose, with respect to such information and specifically disclaims all such warranties. Users are advised that decisions regarding drug therapy are complex medical decisions requiring the independent, informed decision of an appropriate health patient care manager, and the information is provided for informational purposes only. The entire monograph for a drug should be reviewed for a thorough understanding of the drug's actions, uses and side effects. The [employer] does not endorse or recommend the use of any drug.The information is not a substitute for medical care. [facility] Patient Medication Information?. Copyright, 2023. [employer], [address], [address], [place], [place]. All Rights Reserved. Duplication for commercial use must be authorized by [facility]. Selected Revisions: May 08, 2024. [facility] Patient Medication Information?. Copyright, 2023 * Pt Handout (on AVS) - Sherron Doss RN - 08/19/2024 11:13 AM EDT [id number] Nystatin Brand Name(s): Mycostatin Oral Tablets, Nilstat Oral Tablets, Nilstat Suspension, Nystex Suspension; also available generically WHY is this medicine prescribed? Nystatin is used to treat fungal infections of the inside of the mouth and lining of the stomach and intestines. Nystatin is in a class of antifungal medications called polyenes. It works by stoppingthe growth of fungi that cause infection. HOW should this medicine be used? Nystatin comes as a tablet and a suspension (liquid) to take by mouth. For the treatment of fungal infections of the lining of the stomach and intestines, nystatin tablets are usually taken three times a day. For the treatment of fungal infections of the mouth, nystatin suspension is usually used four times a day. Follow the directions on your prescription label carefully, and ask your doctor or pharmacist to explain any part you do not understand. Use nystatin exactly as directed. Do not use more or less of it or use it more often than prescribed by your doctor. Shake the suspension well before each use to mix the medication evenly. Place half of the dose in each side of the mouth and hold it there as long as possible before swallowing. Use nystatin as long as instructed by your doctor, even if you feel better. If you stop using nystatin too soon or skip doses, your infection may not be completely treated. Are there OTHER USES for this medicine? This medication may be prescribed for other uses; ask your doctor or pharmacist for more information. What SPECIAL PRECAUTIONS should I follow? Before using nystatin, tell your doctor and pharmacist if you are allergic to nystatin, any other medications, or any of the ingredients in nystatin tablets or suspension. Ask your pharmacist for a list of the ingredients.. tell your doctor and pharmacist what other prescription and nonprescription medications, vitamins, nutritional supplements, and herbal products you are taking or plan to take. tell your doctor if you are , plan to become , or are . If you become while using nystatin, call your doctor. What SPECIAL DIETARY instructions should I follow? Unless your doctor tells you otherwise, continue your normal diet. What should I do IF I FORGET to take a dose? Use the missed dose as soon as you remember it. However, if it is almost time for the next dose, skip the missed dose and continue your regular dosing schedule. Do not use a double dose to make up for a missed one. What SIDE EFFECTS can this medicine cause? Nystatin may cause side effects. Tell your doctor if any of these symptoms are severe or do not go away: diarrhea nausea stomach bloating or pain Some side effects can be serious. If you experience any of these symptoms, stop using nystatin and call your doctor immediately: irritation or burning of the mouth hives rash or itching difficulty breathing or swallowing Nystatin may cause other side effects. Call your doctor if you have any unusual problems while using this medication. If you experience a serious side effect, you or your doctor may send a report to the Food and Drug Administration's (FDA) MedWatch Adverse Event Reporting program online (https://www.fda.gov/Safety/MedWatch) or by phone ( ). What should I know about STORAGE and DISPOSAL of this medication? Keep this medication in the container it came in, tightly closed, and out of reach of children. Store it at room temperature and away from excess heat and moisture (not in the bathroom). Do not allownystatin to freeze. It is important to keep all medication out of sight and reach of children as many containers (such as weekly pill minders and those for eye drops, creams, patches, and inhalers) are not child-resistant and young children can open them easily. To protect young children from poisoning, always lock safety caps and immediately place the medication in a safe location - one that is up and away and out of their sight and reach. https://www.[employer].org Unneeded medications should be disposed of in special ways to ensure that pets, children, and otherpeople cannot consume them. However, you should not flush this medication down the toilet. Instead,the best way to dispose of your medication is through a medicine take-back program. Talk to your pharmacist or contact your local garbage/recycling department to learn about take-back programs in your community. See the FDA's Safe Disposal of Medicines website (https://goo.gl/c4Rm4p) for more information if you do not have access to a take-back program. What should I do in case of OVERDOSE? In case of overdose, call the poison control helpline at . Information is also available online at https://www.poisonhelp.org/help. If the victim has collapsed, had a seizure, has trouble breathing, or can't be awakened, immediately call emergency services at 911. Symptoms of overdose may include the following: stomach bloating or pain nausea vomiting What OTHER INFORMATION should I know? Keep all appointments with your doctor and the laboratory. Your doctor may order certain lab tests to check your response to nystatin. Do not let anyone else use your medication. Your prescription is probably not refillable. If you still have symptoms of infection after you finish the nystatin, call your doctor. It is important for you to keep a written list of all of the prescription and nonprescription (irfg-hkk-sycykhl) medicines you are taking, as well as any products such as vitamins, minerals, or otherdietary supplements. You should bring this list with you each time you visit a doctor or if you areadmitted to a hospital. It is also important information to carry with you in case of emergencies. This report on medications is for your information only, and is not considered individual patient advice. Because of the changing nature of drug information, please consult your physician or pharmacist about specific clinical use. [employer] represents that the information provided hereunder was formulated with a reasonable standard of care, and in conformity with professional standards in the field. [employer] makes no representations or warranties, express or implied, including, but not limited to, any implied warranty of merchantability and/or fitness for a particular purpose, with respect to such information and specifically disclaims all such warranties. Users are advised that decisions regarding drug therapy are complex medical decisions requiring the independent, informed decision of an appropriate health patient care manager, and the information is provided for informational purposes only. The entire monograph for a drug should be reviewed for a thorough understanding of the drug's actions, uses and side effects. [employer] does not endorse or recommend the use of any drug.The information is not a substitute for medical care. [facility] Patient Medication Information?. Copyright, 2023. [employer], [address], [address], [place], [place]. All Rights Reserved. Duplication for commercial use must be authorized by [facility]. Selected Revisions: October 03, 2018. [facility] Patient Medication Information?. Copyright, 2023 * Pt Handout (on AVS) - Sherron Doss RN - 08/19/2024 11:13 AM EDT [id number] Pantoprazole Brand Name(s): Protonix; also available generically WHY is this medicine prescribed? Pantoprazole is used to treat damage from gastroesophageal reflux disease (GERD), a condition in which backward flow of acid from the stomach causes heartburn and possible injury of the esophagus (the tube between the throat and stomach) in adults and children 5 years of age and older. Pantoprazoleis used to allow the esophagus to heal and prevent further damage to the esophagus in adults with GERD. It is also used to treat conditions where the stomach produces too much acid, such as Evaristo-Ribera syndrome in adults. Pantoprazole is in a class of medications called proton-pump inhibitors. It works by decreasing the amount of acid made in the stomach. HOW should this medicine be used? Pantoprazole comes as a delayed-release (releases the medication in the intestine to prevent break-down of the medication by stomach acids) tablet and as delayed-release granules to take by mouth. The packets of delayed-release granules must be mixed with applesauce or apple juice and taken by mouth or given through a feeding tube. For the treatment and maintenance of GERD, pantoprazole is usually taken once a day. For the treatment of conditions where the stomach produces too much acid, pantoprazole is usually taken twice a day. The delayed-release tablets are usually taken with or without food, and the granules are usually taken 30 minutes before a meal. Take pantoprazole at around the same time(s) every day. Follow the directions on your prescription label carefully, and ask your doctor or pharmacist to explain any part you do not understand. Take pantoprazole exactly as directed. Donot take more or less of it or take it more often or for a longer period of time than prescribed byyour doctor. Swallow the tablets whole; do not split, chew, or crush them. If your doctor has prescribed the 40 mg tablet and it is too big for you to swallow, ask your doctor to prescribe two of the 20 mg tablets instead. To take the granules, open the packet and either sprinkle the granules onto one teaspoonful of applesauce or into a cup containing one teaspoonful of apple juice. Do not mix the granules with water, other liquids, or other foods. Use all of the granules in the packet; do not divide the granules into smaller doses. If you sprinkle the granules into apple juice, stir the mixture for 5 seconds. Swallow the mixture of applesauce or apple juice and medication right away (within 10 minutes) without chewing or crushing the granules. If you sprinkled the granules on applesauce, take several sips of water to wash the granules down to your stomach. If you sprinkled the granules into apple juice, rinse the cup once or twice with apple juice and drink the apple juice right away to be sure you swallowany leftover granules. Pantoprazole granules mixed with apple juice may be given through a feeding tube. If you have a feeding tube, ask your doctor how you should take pantoprazole. Continue to take pantoprazole even if you feel well. Do not stop taking pantoprazole without talking to your doctor. If your condition does not improve or gets worse, call your doctor. Ask your pharmacist or doctor for a copy of the junior account manager's information for the patient. Are there OTHER USES for this medicine? This medication may be prescribed for other uses; ask your doctor or pharmacist for more information. What SPECIAL PRECAUTIONS should I follow? Before taking pantoprazole, tell your doctor and pharmacist if you are allergic to pantoprazole, dexlansoprazole (Dexilant),esomeprazole (Nexium, in Vimovo), lansoprazole (Prevacid), omeprazole (Prilosec, in [place], in Zegerid), rabeprazole (AcipHex), any other medications, or any of the ingredients in pantoprazole tablets or granules. Ask your pharmacist for a list of the ingredients. Some medications should not be taken with pantoprazole. Other medications may cause dosing changes or extra monitoring when taken with pantoprazole. Make sure you have discussed any medications you are currently taking or plan to take before starting pantoprazole with your doctor and pharmacist.Before starting, stopping, or changing any medications while taking pantoprazole, please get the advice of your doctor or pharmacist. The following nonprescription or herbal products may interact with pantoprazole: iron supplements. Be sure to let your doctor and pharmacist know that you are taking these medications before you start taking pantoprazole. Do not start any of these medications while taking pantoprazole without discussing with your healthcare provider. tell your doctor if you have or have ever had a low level of magnesium, calcium, or potassium inyour blood; hypoparathyroidism (condition in which the body does not produce enough parathyroid hormone [PTH; a natural substance needed to control the amount of calcium in the blood]); low levels ofvitamin B12 in your body; osteoporosis (a condition in which the bones become thin and weak and break easily); or an autoimmune disease (condition in which the body attacks its own organs causing swelling and loss of function) such as systemic lupus erythematosus. tell your doctor if you are , plan to become , or are . If you become while taking pantoprazole, call your doctor. talk to your doctor about the risks and benefits of taking pantoprazole if you are 70 years of age or older. Do not take this medication for a longer period of time than recommended by your doctor. What SPECIAL DIETARY instructions should I follow? Unless your doctor tells you otherwise, continue your normal diet. What should I do IF I FORGET to take a dose? Take the missed dose as soon as you remember it. However, if it is almost time for your next dose, skip the missed dose and continue your regular dosing schedule. Do not take a double dose to make upfor a missed dose. What SIDE EFFECTS can this medicine cause? Pantoprazole may cause side effects. Tell your doctor if any of these symptoms are severe or do not go away: headache nausea vomiting gas joint pain diarrhea dizziness in men, difficulty achieving or maintaining an erection Some side effects may be serious. If you experience any of the following symptoms, call your doctor immediately, or get emergency medical help: blistering, peeling, or bleeding skin; sores on the lips, nose, mouth, or genitals; swollen glands; shortness of breath; fever; or flu-like symptoms rash hives; itching; swelling of the eyes, face, lips, mouth, throat, or tongue; difficulty breathing or swallowing; or hoarseness irregular, fast, or pounding heartbeat muscle spasms; uncontrollable shaking of a part of the body; excessive tiredness; lightheadedness; dizziness; or seizures severe diarrhea with watery stools, stomach pain, or fever that does not go away new or worsening joint pain; rash on cheeks or arms that is sensitive to sunlight increased or decreased urination, blood in urine, fatigue, nausea, loss of appetite, fever, rash, or joint pain Pantoprazole may cause other side effects. Call your doctor if you have any unusual problems while taking this medication. People who take proton pump inhibitors such as pantoprazole may be more likely to fracture their wrists, hips, or spine than people who do not take one of these medications. People who take proton pump inhibitors may also develop fundic gland polyps (a type of growth on the stomach lining). These risks are highest in people who take high doses of one of these medications or take them for one yearor longer. Talk to your doctor about the risks of taking pantoprazole. If you experience a serious side effect, you or your doctor may send a report to the Food and Drug Administration's (FDA) MedWatch Adverse Event Reporting program online (https://www.fda.gov/Safety/MedWatch) or by phone ( ). What should I know about STORAGE and DISPOSAL of this medication? Keep this medication in the container it came in, tightly closed, and out of reach of children. Store it at room temperature and away from excess heat and moisture (not in the bathroom). It is important to keep all medication out of sight and reach of children as many containers (such as weekly pill minders and those for eye drops, creams, patches, and inhalers) are not child-resistant and young children can open them easily. To protect young children from poisoning, always lock safety caps and immediately place the medication in a safe location - one that is up and away and out of their sight and reach. https://www.[employer].org Unneeded medications should be disposed of in special ways to ensure that pets, children, and otherpeople cannot consume them. However, you should not flush this medication down the toilet. Instead,the best way to dispose of your medication is through a medicine take-back program. Talk to your pharmacist or contact your local garbage/recycling department to learn about take-back programs in your community. See the FDA's Safe Disposal of Medicines website (https://goo.gl/c4Rm4p) for more information if you do not have access to a take-back program. What should I do in case of OVERDOSE? In case of overdose, call the poison control helpline at . Information is also available online at https://www.poisonhelp.org/help. If the victim has collapsed, had a seizure, has trouble breathing, or can't be awakened, immediately call emergency services at 291. What OTHER INFORMATION should I know? Keep all appointments with your doctor and the laboratory. Your doctor may order certain laboratorytests before and during your treatmen. Before having any laboratory test, tell your doctor and the laboratory personnel that you are taking pantoprazole. Do not let anyone else take your medication. Ask your pharmacist any questions you have about refilling your prescription. It is important for you to keep a written list of all of the prescription and nonprescription (lgbb-hps-phzynuz) medicines you are taking, as well as any products such as vitamins, minerals, or otherdietary supplements. You should bring this list with you each time you visit a doctor or if you areadmitted to a hospital. It is also important information to carry with you in case of emergencies. This report on medications is for your information only, and is not considered individual patient advice. Because of the changing nature of drug information, please consult your physician or pharmacist about specific clinical use. [employer] represents that the information provided hereunder was formulated with a reasonable standard of care, and in conformity with professional standards in the field. [employer] makes no representations or warranties, express or implied, including, but not limited to, any implied warranty of merchantability and/or fitness for a particular purpose, with respect to such information and specifically disclaims all such warranties. Users are advised that decisions regarding drug therapy are complex medical decisions requiring the independent, informed decision of an appropriate health patient care manager, and the information is provided for informational purposes only. The entire monograph for a drug should be reviewed for a thorough understanding of the drug's actions, uses and side effects. [employer] does not endorse or recommend the use of any drug.The information is not a substitute for medical care. [facility] Patient Medication Information?. Copyright, 2023. [employer], [address], [address], [place], [place]. All Rights Reserved. Duplication for commercial use must be authorized by [facility]. Selected Revisions: September 03, 2023. [facility] Patient Medication Information?. 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 Post procedure noticed to have some subQ emphysema which is classic and commonly seen after E-POEM however the television tube inspector ordered a CXR which showed pneumoperitoneum and small apical pneumothorax, all this is expected as we do cut the esophageal muscle and air leaks into the mediastinum, this is CO2 which gets absorbed very rapidly. He otherwise doing well clinically, no significant pain and vital normal. He was not waking up as anticipated likely due to his Renal failure and poor metabolism of sedatives. Based on that and the fear if he goes home and gets a fall, decision made to admit him for over night observation. Recommned: IV PPI. ABx. Peritoneal Dialysis tonight. Obtain CXR tomorrow. Clear liquid diet. No Sub Q Heparin, no CPAP. * Pt Handout (on AVS) - Oracio Doss RN - 08/18/2024 1:59 PM EDT [id number] Discharge Instructions: Having a Clear Liquid Diet Your healthcare provider has prescribed a clear liquid diet for you. This temporary diet is often prescribed right before surgery or medical tests when you need to have your stomach and intestines free of any food. This diet may also be prescribed after certain types of surgery or if solid food is not tolerated. The clear liquid diet is easy to digest and helps the body gradually get used to foodagain. Home care This diet is temporary. Don't follow this diet longer than directed. It doesn?t provide enough energy or protein for proper nutrition. If you are on this diet for more than 3 to 4 days, you may need nutritional or vitamin supplements. Talk with your healthcare provider about this. Keep track of what you eat and drink and how much while on this diet. Keep a log for your healthcare provider. Choose these foods The following foods are OK to have when you are on a clear liquid diet: Water; ice chips Fruit juices without pulp, such as filtered apple juice, grape juice, cranberry juice, and pulp-free lemonade Fruit punch or fruit drinks with no pulp or pieces Hot or cold coffee or tea (don't add milk or creamers of any type) Clear sodas (lemon-karluk soda, sydni elva) Sports drinks Clear soup (low-sodium and fat-free broth or bouillon) Plain or flavored gelatin (don't add fruit or toppings) Frozen juice bars made from clear juices (no pulp or fruit pieces) Don't have these foods Fruit juices with pulp or nectar, such as prune juice Milk, yogurt, and pudding Cream-based soups Any food or drink not on the approved list above Ask your healthcare provider if you should skip foods and drinks containing red or purple food coloring. They can leave results that looks like blood on tests. Follow-up Follow up with your healthcare provider as advised. When to call your healthcare provider Call your healthcare provider right away if you have any of the following: Fever of 100.4 F ( 38C ) or higher, or as directed by your healthcare provider Diarrhea that lasts for longer than 24 hours Vomiting that does not stop Trouble urinating Trouble passing gas Abdominal pain with bloating and cramping Last Reviewed Date: 2022 00:00:00 [id number] [employer]. All rights reserved. This information is not intended as a substitute for professional medical care. Always follow your healthcare professional's instructions. * Pt Handout (on AVS) - Oracio Doss RN - 08/18/2024 1:59 PM EDT Images from the original note were not included. [id number] Clear Liquid Diet Clear liquids are any liquid that you can see through. They are also very easy to digest. You may be put on a clear liquid diet if you are recovering from irritation or infection of the stomach or digestive tract. This diet may also be used before surgery or special procedures such as a colonoscopy. You shouldn't be on this diet for more than 3 days. Below are some clear liquids you can have on this diet. Adults and children older than 2 years Adults should drink a total of 2 to 3 quarts of liquid per day. It may be easier to drink small frequent servings rather than a few large ones. Clear liquids can include: Clear fruit juices without pulp. Apple, white grape, and cranberry juice; clear fruit drinks. Beverages. Sports drinks, sodas (no cola or root beer), mineral water (plain or flavored), tea, black coffee, liquid gelatin (add twice the advised amount of water). Soups. Clear broth. Desserts. Plain gelatin, frozen fruit juice bars without pulp or fruit pieces. Children younger than 2 years Oral rehydration fluids are available at drugstores and most grocery stores. You don?t need a prescription. Last Reviewed Date: 2022 00:00:00 [employer]. All rights reserved. This information is not intended as a substitute for professional medical care. Always follow your healthcare professional's instructions. * Pt Handout (on AVS) - Oracio Doss RN - 08/18/2024 1:58 PM EDT [id number] Discharge Instructions: Having a Full Liquid Diet Your healthcare provider prescribed a full liquid diet temporarily for you. You may have trouble swallowing solid foods. Or, you may have had surgery and not be ready for solid food or need to advance to solid foods gradually. Here's what you need to know about this type of diet. Home care Remember, this diet is temporary. You should not follow this diet longer than directed because it might not provide you with enough fiber, vitamins, and minerals. Contact your healthcare provider if you are on this diet for more than 5 days. You may need nutritional or vitamin supplements. Keep track of the amount of liquid that you drink and anything you eat while on this diet. Keep a log for your healthcare provider. Choose these foods Choose fruit juices without pulp, such as apple juice, grape juice, cranberry juice, and nectars. Choose drinks such as coffee, tea (hot or cold), fruit-flavored drinks, soda, water, milk (whole, skim, 1%, and 2%), cream, instant breakfast drinks, and liquid meal replacements. Choose desserts and snacks such as fruit ices (without chunks of fruit), plain or vanilla yogurt(without fruit chunks), plain gelatin, hard candy, frozen juice pops, custards, frozen yogurt, smoothies without chunks, ice cream (without nuts or candy), and pudding. Choose broth, bouillon, fat-free consomm, or strained cream soups. Choose thin, refined hot cereals, such as porridge, and grits. Don't eat these foods Don?t eat canned, fresh, or frozen fruit. Don?t eat soup with vegetables, noodles, rice, meat, or other chunks of food in it. Don?t eat vegetables, bread, whole cereal and grain products, meat, chicken, fish, eggs, meat substitutes (nuts and nut butters, tofu, soy), hard cheese, oils, butter, or margarine. Follow-up Make a follow-up appointment, or as advised. When to call your healthcare provider Call your healthcare provider right away if you have any of the following: Fever of 100.4F (38.0C) or higher, or as advised by your healthcare provider Diarrhea that lasts for more than 1 day Vomiting that does not stop Trouble urinating Trouble passing gas Abdominal pain with bloating and cramping Last Reviewed Date: 2022 00:00:00 [id number] [employer]. All rights reserved. This information is not intended as a substitute for professional medical care. Always follow your healthcare professional's instructions. documented in this encounter Plan of Treatment Upcoming Encounters Date Type Department Care Team (Latest Contact Info) Description 2024 7:45 AM EST Hospital Encounter OR [facility], OPERATING ROOM [facility] [address] [facility] [place] [id number] Pa Gonzalez III, MD [address] [place] [address] 2024 7:45 AM EST - 2024 9:26 AM EST Surgery OR [facility], OPERATING ROOM [facility] [address] [facility] [place] [id number] Pa Gonzalez III, MD [address], [place] [id number] BIOPSY MUSCLE DEEP 08/26/2024 8:30 AM EST Scheduled Telephone Neurosurgery, [place] [address] [address] [place], Nurse Follow Up Phone Call [facility] [address] [facility] [phone] 09/07/2024 9:30 AM EST Office Visit Cardiology, [facility] [address] [facility] [place] [address] Nannette Gonzales CRNP [address] [place] [address] 09/15/2024 11:30 AM EST Telemedicine Cardiovascular Genetics, [facility] [address] [place] [address] Kayla Larson Mae, MS 132 [facility] [place] [address] 09/20/2024 10:30 AM EST Office Visit Cardiology, [facility] 132 [facility] [place] [address] Rick Tan, DO 132 [facility] [place] [address] 09/21/2024 3:00 PM EST Office Visit Neurology [facility] [address] [facility] [place] [address] Carlos Jiménez, DO 200 [facility] [place] [address] 07/11/2025 3:20 PM EDT Office Visit Pulmonary Medicine, [facility] [address] [facility] [place] [address] Kumar Noyola MD [address] [facility] [id number] Scheduled Procedures Name Priority Associated Diagnoses Date/Ti [...] Name Priority Date/Time Associated Diagnosis Comments XR CHEST 1 VIEW Routine 08/19/2024 7:50 AM EDT COMPREHENSIVE METABOLIC PANEL Routine 08/19/2024 6:15 AM EDT PT INR Routine 08/19/2024 6:15 AM EDT PHOSPHORUS Routine 08/19/2024 6:15 AM EDT CBC Routine 08/19/2024 6:15 AM EDT MAGNESIUM Routine 08/19/2024 6:15 AM EDT HEPATIC FUNCTION PANEL STAT 3:05 PM EDT BASIC METABOLIC PANEL STAT 08/18/2024 3:05 PM EDT PT INR STAT 08/18/2024 3:05 PM EDT PHOSPHORUS STAT 08/18/2024 3:05 PM EDT CBC STAT 08/18/2024 3:05 PM EDT MAGNESIUM STAT 08/18/2024 3:05 PM EDT XR CHEST 1 VIEW STAT 08/18/2024 11:55 AM EDT GLUCOSE METER, POINT OF CARE JOSÉ 08/18/2024 11:24 AM EDT XR CHEST 1 VIEW STAT 08/18/2024 11:09 AM EDT UPPER GI ENDOSCOPY 08/18/2024 8: 13 AM EDT Lower Esophageal Myotomy, Transoral 08/18/2024 7:58 AM EDT Achalasia EGD, Flexible, Diagnostic 08/18/2024 7:58 AM EDT Achalasia documented in this encounter Results * XR CHEST 1 VIEW (08/19/2024 7:50 AM EDT) Anatomical Region Laterality Modality Chest Digital Radiogra phy 08/19/2024 7:37 AM EDT Impressions 08/19/2024 8:13 AM EDT IMPRESSION: Interval decreasing pneumoperitoneum. THIS DOCUMENT HAS BEEN ELECTRONICALLY SIGNED BY MANJULA SUTHERLNAD MD Narrative 08/19/2024 8:13 AM EDT PROCEDURE INFORMATION: Exam: XR Chest Exam date and time: 08/19/2024 7:37 AM Age: 78 years old Clinical indication: Other: Comparison; S/P surgery yesterday; PT C/O left shoulder pain this am; Additional info: Subcutaneous emphysema S/P poem TECHNIQUE: Imaging protocol: Radiologic exam of the chest. Views: 1 view. COMPARISON: DX XR CHEST 1 VIEW 08/18/2024 11:50 AM FINDINGS: Lungs: Bibasilar atelectatic changes. Pleural spaces: No pleural effusion. No pneumothorax. Heart/Mediastinum: No cardiomegaly. Bones/joints: Degenerative changes within the thoracic spine. Soft tissues: Bilateral subcutaneous emphysema. Intraperitoneal space: Interval decreasing pneumoperitoneum. Procedure Note Manjula Sutherland MD - 08/19/2024 PROCEDURE INFORMATION: Exam: XR Chest Exam date and time: 08/19/2024 7:37 AM Age: 78 years old Clinical indication: Other: Comparison; S/P surgery yesterday; PT C/O left shoulder pain this am; Additional info: Subcutaneous emphysema S/P poem TECHNIQUE: Imaging protocol: Radiologic exam of the chest. Views: 1 view. COMPARISON: DX XR CHEST 1 VIEW 08/18/2024 11:50 AM FINDINGS: Lungs: Bibasilar atelectatic changes. Pleural spaces: No pleural effusion. No pneumothorax. Heart/Mediastinum: No cardiomegaly. Bones/joints: Degenerative changes within the thoracic spine. Soft tissues: Bilateral subcutaneous emphysema. Intraperitoneal space: Interval decreasing pneumoperitoneum. IMPRESSION IMPRESSION: Interval decreasing pneumoperitoneum. THIS DOCUMENT HAS BEEN ELECTRONICALLY SIGNED BY MANJULA SUTHERLAND MD John Kennedy MD RADIOLOGY (RAD GENER AL) * PHOSPHORUS (08/19/2024 6:15 AM EDT) Phosphorus 3.7 2.5 - 4.8 mg/dL 08/19/2024 7:02 AM EDT LABORATORY [facility] Blood Venous blood specimen / Unknown Venipuncture / Unknown 08/19/2024 6:15 AM EDT 08/19/2024 6:26 AM EDT Jose Valencia MD LAB BLOOD ORDERABLES Performing Organization Address City/[facility] Co de Phone Number LABORATORY [address] [address] * MAGNESIUM (08/19/2024 6:15 AM EDT) Magnesium 1.5 1.5 - 2.6 mg/dL 08/19/2024 7:02 AM EDT LABORATORY [facility] Blood Venous blood specimen / Unknown Venipuncture / Unknown 08/19/2024 6:15 AM EDT 08/19/2024 6:26 AM EDT Jose Vaelncia MD LAB BLOOD ORDERABLES Performing Organization Address City/[facility] Co de Phone Number LABORATORY [address] [address] * (ABNORMAL) CBC (08/19/2024 6:15 AM EDT) WBC 14.07(H) 4.00 - 10.80 K/uL 08/19/2024 6:35 AM EDT LABORATORY [facility] RBC 3.91 4.50 - 5.25 M/uL 08/19/2024 6:35 AM EDT LABORATORY GL HGB 11.5(L) 14.0 - 16.8 g/dL 08/19/2024 6:35 AM EDT LABORATORY GL[facility] HCT 34.5(L) 40.0 - 48.4 % 08/19/2024 6:35 AM EDT LABORATORY GL MCV 88.2 82.0 - 99.5 fL 08/19/2024 6:35 AM EDT LABORATORY GL[facility] MCH 29.4 27.0 - 34.0 pg 08/19/2024 6:35 AM EDT LABORATORY GL MCHC 33.3 32.0 - 36.0 g/dL 08/19/2024 6:35 AM EDT LABORATORY GL RDW 15.3 11.5 - 15.5 % 08/19/2024 6:35 AM EDT LABORATORY GL PLT 226 140 - 400 K/uL 08/19/2024 6:35 AM EDT LABORATORY [facility] MPV 10.4 6.6 - 11.1 fL 08/19/2024 6:35 AM EDT LABORATORY GL nRBCs 0 <=0 /100 WBCs 08/19/2024 6:35 AM EDT LABORATORY [facility] Blood Venous blood specimen / Unknown Venipuncture / Unknown 08/19/2024 6:15 AM EDT 08/19/2024 6:26 AM EDT Jose Valencia MD LAB BLOOD ORDERABLES LABORATORY [address] [address] * (ABNORMAL) PT INR (08/19/2024 6:15 AM EDT) Pathologist [facility] Prothrombin Time 15.3(H) 11.6 - 15.2 seconds 08/19/2024 7:04 AM EDT LABORATORY GL INR 1.2 0.8 - 1.2 08/19/2024 7:04 AM EDT LABORATORY [facility] Blood Venous blood specimen / Unknown Venipuncture / Unknown 08/19/2024 6:15 AM EDT 08/19/2024 6:26 AM EDT Narrative LABORATORY GL[facility] - 08/19/2024 7:04 AM EDT Warfarin Therapy INR: 2.0-3.0 conventional anticoagulation INR: 2.5-3.5 high intensity anticoagulation Jose Valencia MD LAB BLOOD ORDERABLES LABORATORY GL [address] [place] [address] * (ABNORMAL) COMPREHENSIVE METABOLIC PANEL (08/19/2024 6:15 AM EDT) BUN 36(H) 6 - 20 mg/dL 08/19/2024 7:02 AM EDT LABORATORY [facility] CREATININE 7.0(H) 0.6 - 1.2 mg/dL 08/19/2024 7:02 AM EDT LABORATORY GL EGFR 8(L) >=60 mL/min 08/19/2024 7:02 AM EDT LABORATORY [facility] Comment:eGFR is calculated b ased on the CKD-EPI 2020 equation. SODIUM 134(L) 135 - 146 mmol/L 08/19/2024 7:02 AM EDT LABORATORY GL[facility] POTASSIUM 3.5 3.5 - 5.1 mmol/L 08/19/2024 7:02 AM EDT LABORATORY [facility] CHLORIDE 94(L) 98 - 107 mmol/L 08/19/2024 7:02 AM EDT LABORATORY GL[facility] CO2 25 22 - 32 mmol/L 08/19/2024 7:02 AM EDT LABORATORY [facility] ANION GAP 15 7 - 15 mmol/L 08/19/2024 7:02 AM EDT LABORATORY [facility] GLUCOSE 259(H) 70 - 120 mg/dL 08/19/2024 7:02 AM EDT LABORATORY [facility] Albumin 3.1(L) 3.8 - 5.0 g/dL 08/19/2024 7:02 AM EDT LABORATORY [facility] AST 28 10 - 50 U/L 08/19/2024 7:02 AM EDT LABORATORY GL[facility] Alkaline Phosphatase 76 35 - 130 U/L 08/19/2024 7:02 AM EDT LABORATORY [facility] Bilirubin, Total 0.4 <=1.2 mg/dL 08/19/2024 7:02 AM EDT LABORATORY [facility] CALCIUM 8.3(L) 8.4 - 10.2 mg/dL 08/19/2024 7:02 AM EDT LABORATORY [facility] Protein 5.8(L) 6.0 - 8.3 g/dL 08/19/2024 7:02 AM EDT LABORATORY GL ALT 42 10 - 50 U/L 08/19/2024 7:02 AM EDT LABORATORY GL Blood Venous blood specimen / Unknown Venipuncture / Unknown 08/19/2024 6:15 AM EDT 08/19/2024 6:26 AM EDT Jose Valencia MD LAB BLOOD ORDERABLES Performing Organization Address [facility] de Phone Number LABORATORY [address] [address] * PT INR (08/18/2024 3:05 PM EDT) Prothrombin Time 15.1 11.6 - 15.2 seconds 08/18/2024 3:40 PM EDT LABORATORY [facility] INR 1.2 0.8 - 1.2 08/18/2024 3:40 PM EDT LABORATORY [facility] Blood Venous blood specimen / Unknown Venipuncture / Unknown 08/18/2024 3:05 PM EDT 08/18/2024 3:23 PM EDT Narrative LABORATORY GL - 08/18/2024 3:40 PM EDT Warfarin Therapy INR: 2.0-3.0 conventional anticoagulation INR: 2.5-3.5 high intensity anticoagulation Jose Valencia MD LAB BLOOD ORDERABLES Performing Organization Address City/[facility]/ZIP Co de Phone Number LABORATORY [address] [address] * (ABNORMAL) PHOSPHORUS (08/18/2024 3:05 PM EDT) Phosphorus 5.2(H) 2.5 - 4.8 mg/dL 08/18/2024 4:00 PM EDT LABORATORY [facility] Blood Venous blood specimen / Unknown Venipuncture / Unknown 08/18/2024 3:05 PM EDT 08/18/2024 3:23 PM EDT Jose Valencia MD LAB BLOOD ORDERABLES Performing Organization Address City/[facility]/ZIP Co de Phone Number LABORATORY [address] [address] * MAGNESIUM (08/18/2024 3:05 PM EDT) Magnesium 1.6 1.5 - 2.6 mg/dL 08/18/2024 4:00 PM EDT LABORATORY [facility] Blood Venous blood specimen / Unknown Venipuncture / Unknown 08/18/2024 3:05 PM EDT 08/18/2024 3:23 PM EDT Jose Valencia MD LAB BLOOD ORDERABLES Performing Organization Address [facility] de Phone Number LABORATORY [address] [address] * (ABNORMAL) HEPATIC FUNCTION PANEL (08/18/2024 3:05 PM EDT) Albumin 2.9(L) 3.8 - 5.0 g/dL 08/18/2024 4:00 PM EDT LABORATORY GL[facility] AST 30 10 - 50 U/L 08/18/2024 4:00 PM EDT LABORATORY GL[facility] Alkaline Phosphatase 78 35 - 130 U/L 08/18/2024 4:00 PM EDT LABORATORY [facility] ALT 42 10 - 50 U/L 08/18/2024 4:00 PM EDT LABORATORY GL[facility] Bilirubin, Total 0.5 <=1.2 mg/dL 08/18/2024 4:00 PM EDT LABORATORY [facility] Bilirubin, Direct <0.2 0.0 - 0.3 mg/dL 08/18/2024 4:00 PM EDT LABORATORY [facility] Protein 5.7(L) 6.0 - 8.3 g/dL 08/18/2024 4:00 PM EDT LABORATORY [facility] Blood Venous blood specimen / Unknown Venipuncture / Unknown 08/18/2024 3:05 PM EDT 08/18/2024 3:23 PM EDT Jose Valencia MD LAB BLOOD ORDERABLES Performing Organization Address City/[facility]/ZIP Co de Phone Number LABORATORY [facility] [address], [place] [phone] * (ABNORMAL) BASIC METABOLIC PANEL (08/18/2024 3:05 PM EDT) BUN 35(H) 6 - 20 mg/dL 08/18/2024 4:00 PM EDT LABORATORY [facility] CREATININE 7.6(H) 0.6 - 1.2 mg/dL 08/18/2024 4:00 PM EDT LABORATORY GL[facility] EGFR 7(L) >=60 mL/min 08/18/2024 4:00 PM EDT LABORATORY [facility] Comment:eGFR is calculated b ased on the CKD-EPI 2020 equation. SODIUM 134(L) 135 - 146 mmol/L 08/18/2024 4:00 PM EDT LABORATORY [facility] POTASSIUM 4.3 3.5 - 5.1 mmol/L 08/18/2024 4:00 PM EDT LABORATORY GL[facility] CHLORIDE 96(L) 98 - 107 mmol/L 08/18/2024 4:00 PM EDT LABORATORY GL[facility] CO2 22 22 - 32 mmol/L 08/18/2024 4:00 PM EDT LABORATORY GL[facility] ANION GAP 16(H) 7 - 15 mmol/L 08/18/2024 4:00 PM EDT LABORATORY [facility] GLUCOSE 195(H) 70 - 120 mg/dL 08/18/2024 4:00 PM EDT LABORATORY [facility] CALCIUM 8.1(L) 8.4 - 10.2 mg/dL 08/18/2024 4:00 PM EDT LABORATORY [facility] Blood Venous blood specimen / Unknown Venipuncture / Unknown 08/18/2024 3:05 PM EDT 08/18/2024 3:23 PM EDT Jose Valencia MD LAB BLOOD ORDERABLES Performing Organization Address City/[facility]/ZIP Co de Phone Number LABORATORY [address] [phone] * (ABNORMAL) CBC (08/18/2024 3:05 PM EDT) WBC 13.91(H) 4.00 - 10.80 K/uL 08/18/2024 3:26 PM EDT LABORATORY [facility] RBC 3.97 4.50 - 5.25 M/uL 08/18/2024 3:26 PM EDT LABORATORY [facility] HGB 11.9(L) 14.0 - 16.8 g/dL 08/18/2024 3:26 PM EDT LABORATORY [facility] HCT 35.5(L) 40.0 - 48.4 % 08/18/2024 3:26 PM EDT LABORATORY [facility] MCV 89.4 82.0 - 99.5 fL 08/18/2024 3:26 PM EDT LABORATORY [facility] MCH 30.0 27.0 - 34.0 pg 08/18/2024 3:26 PM EDT LABORATORY [facility] MCHC 33.5 32.0 - 36.0 g/dL 08/18/2024 3:26 PM EDT LABORATORY [facility] RDW 15.2 11.5 - 15.5 % 08/18/2024 3:26 PM EDT LABORATORY [facility] PLT 217 140 - 400 K/uL 08/18/2024 3:26 PM EDT LABORATORY [facility] MPV 10.2 6.6 - 11.1 fL 08/18/2024 3:26 PM EDT LABORATORY [facility] nRBCs 0 <=0 /100 WBCs 08/18/2024 3:26 PM EDT LABORATORY [facility] Blood Venous blood specimen / Unknown Venipuncture / Unknown 08/18/2024 3:05 PM EDT 08/18/2024 3:23 PM EDT Jose Valencia MD LAB BLOOD ORDERABLES LABORATORY [facility] [address] [place] [address] * XR CHEST 1 VIEW (08/18/2024 11:55 AM EDT) Anatomical Region Laterality Modality Chest Digital Radiogra phy 08/18/2024 11:5 0 AM EDT Impressions 08/18/2024 12:03 PM EDT IMPRESSION: Previously noted right apical pneumothorax is not resolved on the current examination. Slightly improved aeration of the lungs. Otherwise no significant change from prior study. THIS DOCUMENT HAS BEEN ELECTRONICALLY SIGNED BY MICHELLE BURKETT MD Narrative 08/18/2024 12:03 PM EDT PROCEDURE INFORMATION: Exam: XR Chest Exam date and time: 08/18/2024 11:50 AM Age: 78 years old Clinical indication: Other: Post egd/e-poem crepitus, comparison TECHNIQUE: Imaging protocol: Radiologic exam of the chest. Views: 1 view. COMPARISON: DX XR CHEST 1 VIEW 08/18/2024 10:56 AM FINDINGS: Lungs: Lung volumes are low with basilar increased markings, slightly improved aeration when compared with the prior study. Pleural spaces: Previously noted tiny right apical pneumothorax is not resolved on the current study. Heart/Mediastinum: Unremarkable. No cardiomegaly. Bones/joints: Unremarkable. Soft tissues: Subcutaneous emphysema is again noted at the root of the neck. Intraperitoneal space: Free intraperitoneal air is again noted below the diaphragms which is expected from the recent surgical procedure. Procedure Note Michelle Burkett MD - 08/18/2024 PROCEDURE INFORMATION: Exam: XR Chest Exam date and time: 08/18/2024 11:50 AM Age: 78 years old Clinical indication: Other: Post egd/e-poem crepitus, comparison TECHNIQUE: Imaging protocol: Radiologic exam of the chest. Views: 1 view. COMPARISON: DX XR CHEST 1 VIEW 08/18/2024 10:56 AM FINDINGS: Lungs: Lung volumes are low with basilar increased markings, slightlyimproved aeration when compared with the prior study. Pleural spaces: Previously noted tiny right apical pneumothorax is notresolved on the current study. Heart/Mediastinum: Unremarkable. No cardiomegaly. Bones/joints: Unremarkable. Soft tissues: Subcutaneous emphysema is again noted at the root of theneck. Intraperitoneal space: Free intraperitoneal air is again noted below the diaphragms which is expected from the recent surgical procedure. IMPRESSION IMPRESSION: Previously noted right apical pneumothorax is not resolved on the current examination. Slightly improved aeration of the lungs. Otherwise no significant change from prior study. THIS DOCUMENT HAS BEEN ELECTRONICALLY SIGNED BY MICHELLE BURKETT MD Uli Caraballo MD RADIOLOGY (RAD GENE RAL) * (ABNORMAL) GLUCOSE METER, POINT OF CARE (08/18/2024 11:24 AM EDT) GLUCOSE - POCT 180(H) 70 - 120 mg/dL 08/18/2024 11:31 AM EDT [facility] Blood Whole blood specimen / Unknown 08/18/2024 11:24 AM EDT 08/18/2024 11:31 AM EDT Uli Caraballo MD LAB POINT OF CARE T EST DOCKED DEVICE UNSOLICITED RESULTS [facility] [address] [place] [address] * XR CHEST 1 VIEW (08/18/2024 11:09 AM EDT) Anatomical Region Laterality Modality Chest Digital Radiogra phy 08/18/2024 10:5 6 AM EDT Addenda Addendum by Michelle Burkett MD on 08/18/2024 11:38 AM EDT There is a tiny right apical pneumothorax. THIS REPORT CONTAINS FINDINGS THAT MAY BE CRITICAL TO PATIENT CARE. The findings were verbally communicated via telephone conference with JAMIN RAI at 11:38 AM EDT on 08/18/2024. The findings were acknowledged and understood. THIS DOCUMENT HAS BEEN ELECTRONICALLY SIGNED BY MICHELLE BURKETT MD Addendum by Michelle Burkett MD on 08/18/2024 11:27 AM EDT THIS REPORT CONTAINS FINDINGS THAT MAY BE CRITICAL TO PATIENT CARE. The findings were verbally communicated via telephone conference with JAMIN RAI at 11:27 AM EDT on 08/18/2024. The findings were acknowledged and understood. THIS DOCUMENT HAS BEEN ELECTRONICALLY SIGNED BY MICHELLE BURKETT MD Impressions 08/18/2024 11:19 AM EDT IMPRESSION: Low lung volumes, findings compatible with CHF and/or pneumonia. Free intraperitoneal air below the diaphragms. Subcutaneous emphysema about the root of the neck. Suggest urgent CT of the thorax, abdomen and pelvis to further assess. THIS DOCUMENT HAS BEEN ELECTRONICALLY SIGNED BY MICHELLE BURKETT MD Narrative 08/18/2024 11:19 AM EDT PROCEDURE INFORMATION: Exam: XR Chest Exam date and time: 08/18/2024 10:56 AM Age: 78 years old Clinical indication: Other: Crepitus post egd, e-poem TECHNIQUE: Imaging protocol: Radiologic exam of the chest. Views: 1 view. COMPARISON: CT CHEST WO(Adult) 06/01/2024 9:30 AM FINDINGS: Lungs: Lung volumes are low with increased interstitial markings and opacity along the right hemidiaphragm. Pleural spaces: Unremarkable. No pleural effusion. No pneumothorax. Heart/Mediastinum: Unremarkable. No cardiomegaly. Bones/joints: Unremarkable. Intraperitoneal space: There is notable gaseous distension below the diaphragms. Suspect free intraperitoneal air. Subcutaneous emphysema is noted about the root of the neck bilaterally. Procedure Note Michelle Burkett MD - 08/18/2024 PROCEDURE INFORMATION: Exam: XR Chest Exam date and time: 08/18/2024 10:56 AM Age: 78 years old Clinical indication: Other: Crepitus post egd, e-poem TECHNIQUE: Imaging protocol: Radiologic exam of the chest. Views: 1 view. COMPARISON: CT CHEST WO(Adult) 06/01/2024 9:30 AM FINDINGS: Lungs: Lung volumes are low with increased interstitial markings andopacity along the right hemidiaphragm. Pleural spaces: Unremarkable. No pleural effusion. No pneumothorax. Heart/Mediastinum: Unremarkable. No cardiomegaly. Bones/joints: Unremarkable. Intraperitoneal space: There is notable gaseous distension below the diaphragms. Suspect free intraperitoneal air. Subcutaneous emphysema is noted about the root of the neck bilaterally. IMPRESSION IMPRESSION: Low lung volumes, findings compatible with CHF and/or pneumonia. Free intraperitoneal air below the diaphragms. Subcutaneous emphysema about the root of the neck. Suggest urgent CT ofthe thorax, abdomen and pelvis to further assess. THIS DOCUMENT HAS BEEN ELECTRONICALLY SIGNED BY MICHELLE BURKETT MD Jamin Rai MD RADIOLOGY ([facility]) * UPPER GI ENDOSCOPY (08/18/2024 8:13 AM EDT) 08/18/2024 8:13 AM EDT Narrative Procedure Note Salena العلي MD - 08/18/2024 8:13 AM EDT [facility] Patient Name: Monster Samson Procedure Date: 08/18/2024 8:13 AM Date of : 1945 Admit Type: Outpatient Note Status:Draft Date of : 1945 Admit Type: Outpatient Age: 78 Room: OR 5 Gender: Male Note Status: Finalized Procedure: Upper GI endoscopy Indications: For therapy of achalasia Providers: Uli Caraballo MD (Doctor), Eliz Odom RN Referring MD: Salena العلي MD, Maria Isabel Jenkins Medicines: General Anesthesia Complications: No immediate complications. Procedure: Pre-Anesthesia Assessment: - Prior to the procedure, a History and Physicalwas performed, and patient medications, allergies and sensitivities werereviewed. The patient's tolerance of previous anesthesia was reviewed. - The risks and benefits of the procedure and thesedation options and risks were discussed with the patient. All questions wereanswered and informed consent was obtained. - Patient identification and proposed procedurewere verified prior to the procedure by the physician and the nurse. The procedure wasverified in the procedure room. - Pre-procedure physical examination revealed nocontraindications to sedation. After obtaining informed consent, the endoscope waspassed under direct vision. All instruments were visually inspected immediatelybefore and after removal from the patient to ensure they are fully intact. Throughoutthe procedure, the patient's blood pressure, pulse, and oxygen saturations weremonitored continuously. The was introduced through the mouth, and advanced to thesecond part of duodenum. The upper GI endoscopy was accomplished without difficulty.The patient tolerated the procedure well. 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 There was moderateresistance to endoscope advancement into the stomach. The Z-line was regular. Thegastroesophageal junction and cardia were normal on retroflexed view. Preparations were made for peroralendoscopic myotomy (POEM). The esophagus was cleaned and irrigated using saline and suctioned. Mucosotomyfollowed by myotomy were performed in a posterior orientation. First, a submucosal injection of a solutionof methylene blue and saline was used to lift the mucosa at the site of the initial mucosotomy. Theinitial mucosal incision was made longitudinally starting at 30 cm from the incisors using aHybridKnife T-Type. Next, the endoscope with a clear cap was used to enter into the submucosal tunnel. Thesubmucosal tunnel was then further created by continued dissection. The submucosal tunnel was extendedto 50 cm from the incisors which included extension into the cardia by 4 cm. The myotomy was startedat 32 cm from the incisors using a HybridKnife T-Type to perform circular and full thickness myotomies.The myotomy was extended to 47 cm from the incisors which included extension into the cardia by 2 cm.Intra procedure bleeding was minimal. After completion of the myotomy, there was no evidence ofbleeding noted on the inspection of the myotomy edges and submucosal tunnel. The myotomy was successfullyperformed. The mucosal entrance to the submucosal tunnel was closed using endoscopic suturing. Thedecision was made to use sutures to close the mucosal entrance to the POEM submucosal tunnel. Theendoscope was removed, the OverStitch device was attached to the proximal and distal ends of the endoscope.The scope was reinserted. The device was loaded with 2.0 polypropylene suture. A total of onesutures in a running fashion were placed with cinches on both ends. Excellent tissue approximation wasnoted. Double scope transillumination used to confirm position in the cardia. Impression: - Achalasia type III. Peroral endoscopic myotomy(POEM) with long 15 cm myotomy was performed. Recommendation: - Discharge patient to home. - Clear liquid diet for 2 days, then advance astolerated to full liquid diet for 2 days then soft diet for 2 days. - No aspirin, ibuprofen, naproxen, or othernon-steroidal anti-inflammatory drugs for 5 days. - Resume Coumadin (warfarin) at prior dose in 7days. - Follow an antireflux regimen. - Use a proton pump inhibitor PO BID for 2months. - PO ABx per Renal team. - Return to referring physician. Uli Caraballo MD 08/18/2024 10:39:29 AM This report has been signed electronically. Estimated Blood Loss: Estimated blood loss: none. 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) Chronic airway obstruction, not elsewhere classified Paroxysmal atrial flutter (HCC) Atrial flutter Hypertrophic cardiomyopathy (HCC) Other hypertrophic cardiomyopathy Peripheral vascular disease with claudication (HCC) Peripheral vascular disease, unspecified ESRD on peritoneal dialysis (HCC) End stage renal disease Achalasia Achalasia and cardiospasm Post-operative state Other postprocedural status Post-operative pain Other acute postoperative pain Myositis, unspecified myositis type, unspecified site documented in this encounter Administered Medications Inactive Administered Medications - up to 3 most recent administrations Medication Order MAR Action Action Date Dose Rate Site Acetaminophen (Tylenol) tab 975 mg 975 mg, Oral, Q6H PRN Pain, Mild, Pain, Moderate, Fever >38C(100.5F), Headache, Starting on 08/18/24 at 1658, Until Gabriela 08/19/24 at 1852, Maximum of 4 grams (4000 mg) per day. amiodarone (Cordarone) tab 200 mg 200 mg, Oral, Daily(AM), First dose on Gabriela 08/19/24 at 0900, Until Discontinued Given 08/19/2024 8:22 AM EDT 200 mg Bisacodyl (Dulcolax) supp 10 mg 10 mg, Rectal, DAILY PRN Constipation, Starting on 08/21/24 at 1659, Until Gabriela 08/19/24 at 1852, Administer if no bowel movement within past 72 hours and patient unable to take oral medications. Bisacodyl (Dulcolax) tab 5 mg 5 mg, Oral, DAILY PRN Constipation, Starting on 08/21/24 at 1659, Until Gabriela 08/19/24 at 1852, Administer in addition to polyethylene glycol and senna-docusate if no bowel movement in past 72 hours. Docusate Sodium (Colace) cap 100 mg 100 mg, Oral, Daily(AM), First dose on Fri08/19/24 at 0900, Until Discontinued, For oral administration ONLY, if route of administration is other than oral and alternative product must be ordered. Given 08/19/2024 8:22 AM EDT 100 mg Fluconazole in NSS (Diflucan IV) ivpb 400 mg IV Piggyback, 400 mg, ONCE, 1 dose, On Fri08/18/24 at 1630, Administer over 120 Minutes New Bag 08/18/2024 5:49 PM EDT 400 mg 100 mL/hr gentamicin sulfate 0.1 % cream Topical, BID PRN Other, Apply to PD exit site, Starting on Fri08/18/24 at 1707, Until Fri08/19/24 at 1852, Apply to PD exit site Given 08/18/2024 6:37 PM EDT 1 Application Other-Specif y melatonin tab 3 mg 3 mg, Oral, HS PRN Insomnia, Starting on Fri08/18/24 at 1659, Until Fri08/19/24 at 1852 metoprolol succinate XL (toPROL XL) tab 25 mg 25 mg, Oral, BID (.AM/PM), First dose on Fri08/18/24 at 2100, Until Discontinued, Hold for HR less than 60 or SBP below 100 and notify service if dose is held This med should NOT be Crushed or Chewed. Given 08/19/2024 8:22 AM EDT 25 mg Given 08/18/2024 9:15 PM EDT 25 mg metroNIDAZOLE in NSS (Flagyl) ivpb 500 mg 500 mg, IV Piggyback, Q8H, First dose on Fri08/18/24 at 1530, Last dose on Fri08/20/24 at 0600, For 2 days New Bag 08/19/2024 6:18 AM EDT 500 mg 100 mL/hr New Bag 08/18/2024 9:19 PM EDT 500 mg 100 mL/hr New Bag 08/18/2024 4:43 PM EDT 500 mg 100 mL/hr midodrine HCl (Proamatine) tab 2.5 mg 2.5 mg, Oral, BID (.AM/PM), First dose on Fri08/18/24 at 2100, Until Discontinued Given 08/19/2024 8:22 AM EDT 2.5 mg Given 08/18/2024 9:15 PM EDT 2.5 mg NSS infusion 25 mL/hr, Intravenous, All Dialysis Patients. Administer using a 500 ml bag., CONTINUOUS, Starting on Fri08/18/24 at 0800, Until Gabriela 08/19/24 at 1852, Pre-Op Continue from Pre-Op 08/18/2024 8:08 AM EDT 25 mL/hr New Bag 08/18/2024 7:42 AM EDT 25 mL/hr 25 mL/hr nystatin oral susp 500,000 Units 500,000 Units, Swish & Swallow, QID(AM/NOON/PM/HS), First dose on Fri08/18/24 at 1800, Last dose on Fri08/20/24 at 1200, For 2 days, Shake well ! Given 08/19/2024 12:03 PM EDT 500,000 Units Given 08/19/2024 6:17 AM EDT 500,000 Units Given 08/18/2024 9:15 PM EDT 500,000 Units oxygen GAS Inhalation, OXYGEN, 1 dose, First dose on Fri08/18/24 at 1300, Device/Managed by: NIV or Ventilator Device, Goal SPO2 (%): 94 or greater, Notify Provider: For sudden DECREASE in resting SPO2 to less than 85% and when escalating delivery device., Initial FiO2 (%): 100%, Titration Interval: Q2 minutes and as needed., Titrate FiO2 by: 10-20%, Initial Flow Rate (LPM): 10, Wean patient off Oxygen when the oxygen saturation is greater than or equal to 95% Oxygen On 08/18/2024 1:00 PM EDT Pantoprazole (Protonix) inj 40 mg 40 mg, IV Push, Q12H, First dose on Fri08/18/24 at 1615, Until Discontinued, IV push instructions: Flush I.V. Line before and after administration. In-line filter not required. 2-minute infusion: The volume of reconstituted solution (4mg/ml) to be injected may be administered intravenously over at least 2 minutes. ( Dilute each vial with 10 ml of 0.9% saline PF) Given 08/19/2024 8:22 AM EDT 40 mg Given 08/18/2024 4:41 PM EDT 40 mg Polyethylene Glycol 3350 (Miralax) oral powder 17 g 17 g (1 Packet), Oral, DAILY PRN Constipation, Starting on Fri08/18/24 at 1659, Until Fri08/19/24 at 1852, Administer if no bowel movement within past 24 hours. renal vitamin cap 1 mg 1 mg (1 Tablet), Oral, Daily(AM), First dose on Fri08/19/24 at 0900, Until Discontinued Given 08/19/2024 8:22 AM EDT 1 m g senna-docusate (Senokot-S) 1 Tablet 1 Tablet, Oral, BID PRN Constipation, Starting on Fri08/20/24 at 1659, Until Fri08/19/24 at 1852, Administer in addition to polyethylene glycol if no bowel movement within past 48 hours. sodium chloride 0.9 % flush/inj 3 mL 3 mL, IV Push, PRN Other, Line Patency, Starting on Fri08/18/24 at 1659, Until Fri08/19/24 at 1852, Do not flush if lock, PICC, or central line not in place, IV infusing or unable to flush documented in this encounter Active and Recently Administered Medications Times are shown in EDT. Scheduled Medication Order 08/17/2024 08/18/2024 08/19/2024 amiodarone (Cordarone) tab 200 mg 200 mg, Oral, Daily(AM), First dose on Fri08/19/24 at 0900, Until Discontinued 0822 (Given - Provid er: Eloy Catalan RN) ampicillin-sulbactam in NSS (Unasyn) ivpb 3 g (COMPLETED) 3 g, IV Piggyback, ONCE, 1 dose, On Fri08/18/24 at 0830, MIX BEFORE ADMINISTERING! 0812 (Given - Provider: Michelle Leija CRNA) DESMOpressin (Ddavp) 25.592 mcg in NSS 50 mL ivpb (COMPLETED) 25.592 mcg (rounded from 25.59 mcg = 0.3 mcg/kg 85.3 kg), IV Piggyback, ONCE, 1 dose, On Fri08/18/24 at 0845, Administer over 30 Minutes 0846 (New Bag - Provider: Michelle Leija CRNA) Docusate Sodium (Colace) cap 100 mg 100 mg, Oral, Daily(AM), First dose on Fri08/19/24 at 0900, Until Discontinued, For oral administration ONLY, if route of administration is other than oral and alternative product must be ordered. 821 (Given - Provid er: Eloy Catalan RN) Fluconazole in NSS (Diflucan IV) ivpb 400 mg (COMPLETED) IV Piggyback, 400 mg, ONCE, 1 dose, On Fri08/18/24 at 1630, Administer over 120 Minutes 1748 (New Bag - Provider: Eloy Catalan RN)1947 (Stopped - Provider: Lazara Higgins RN) metoprolol succinate XL (toPROL XL) tab 25 mg 25 mg, Oral, BID (.AM/PM), First dose on Fri08/18/24 at 2100, Until Discontinued, Hold for HR less than 60 or SBP below 100 and notify service if dose is held This med should NOT be Crushed or Chewed. 2114 (Given - Provider: Lazara Higgins RN) 821 (Given - Provider: Eloy Catalan RN) metroNIDAZOLE in NSS (Flagyl) ivpb 500 mg 500 mg, IV Piggyback, Q8H, First dose on Fri08/18/24 at 1530, Last dose on Fri08/20/24 at 0600, For 2 days 1643 (New Bag - Provider: Eloy Catalan RN)174 (Stopped - Provider: Lazara Higgins RN)2118 (New Bag - Provider: Lazara Higgins RN)221 (Stopped - Provider: Lazara Higgins RN) 0618 (New Bag - Provider: Lazara Higgins RN)1400 (Due)185 (Due: Stopped) midodrine HCl (Proamatine) tab 2.5 mg 2.5 mg, Oral, BID (.AM/PM), First dose on Fri08/18/24 at 2100, Until Discontinued 2114 (Given - Provider: Lazara Higgins RN) 821 (Given - Provider: Eloy Catalan RN) nystatin oral susp 500,000 Units 500,000 Units, Swish & Swallow, QID(AM/NOON/PM/HS), First dose on Fri08/18/24 at 1800, Last dose on Fri08/20/24 at 1200, For 2 days, Shake well ! 1746 (Given - Provider: Eloy Catalan RN)2115 (Given - Provider: Lazara Higgins RN) 0617 (Given - Provider: Lazara Higgins RN)1203 (Given - Provider: Eloy Catalan RN) oxygen GAS (COMPLETED) Inhalation, OXYGEN, 1 dose, First dose on Fri08/18/24 at 1300, Device/Managed by: NIV or Ventilator Device, Goal SPO2 (%): 94 or greater, Notify Provider: For sudden DECREASE in resting SPO2 to less than 85% and when escalating delivery device., Initial FiO2 (%): 100%, Titration Interval: Q2 minutes and as needed., Titrate FiO2 by: 10-20%, Initial Flow Rate (LPM): 10, Wean patient off Oxygen when the oxygen saturation is greater than or equal to 95% 1300 (Oxygen On - Provider: Oracio Doss RN) Pantoprazole (Protonix) inj 40 mg 40 mg, IV Push, Q12H, First dose on Fri08/18/24 at 1615, Until Discontinued, IV push instructions: Flush I.V. Line before and after administration. In-line filter not required. 2-minute infusion: The volume of reconstituted solution (4mg/ml) to be injected may be administered intravenously over at least 2 minutes. ( Dilute each vial with 10 ml of 0.9% saline PF) 1641 (Given - Provider: Eloy Catalan RN) 0822 (Given - Provider: Eloy Catalan RN) renal vitamin cap 1 mg 1 mg (1 Tablet), Oral, Daily(AM), First dose on Fri08/19/24 at 0900, Until Discontinued 0822 (Given - Provid er: Eloy Catalan RN) Continuous Medication Order 08/17/2024 08/18/2024 08/19/2024 NSS infusion 25 mL/hr, Intravenous, All Dialysis Patients. Administer using a 500 ml bag., CONTINUOUS, Starting on Fri08/18/24 at 0800, Until Fri08/19/24 at 1852, Pre-Op 0742 (New Bag - Provider: Oracio Doss RN)0808 (Continue from Pre-Op - Provider: Michelle Leija CRNA) 185 (Due: Stopped) PRN Medication Order 08/17/2024 08/18/2024 08/19/2024 Acetaminophen (Tylenol) tab 975 mg 975 mg, Oral, Q6H PRN Pain, Mild, Pain, Moderate, Fever >38C(100.5F), Headache, Starting on Fri08/18/24 at 1658, Until Gabriela 08/19/24 at 1852, Maximum of 4 grams (4000 mg) per day. Bisacodyl (Dulcolax) supp 10 mg(Linked Group 1) 10 mg, Rectal, DAILY PRN Constipation, Starting on 08/21/24 at 1659, Until Gabriela 08/19/24 at 1852, Administer if no bowel movement within past 72 hours and patient unable to take oral medications. Bisacodyl (Dulcolax) tab 5 mg(Linked Group 1) 5 mg, Oral, DAILY PRN Constipation, Starting on 08/21/24 at 1659, Until Gabriela 08/19/24 at 1852, Administer in addition to polyethylene glycol and senna-docusate if no bowel movement in past 72 hours. gentamicin sulfate 0.1 % cream Topical, BID PRN Other, Apply to PD exit site, Starting on Fri08/18/24 at 1707, Until Gabriela 08/19/24 at 185, Apply to PD exit site 1837 (Given - Provider: Rui Carney RN - Comment: PD catheter site) melatonin tab 3 mg 3 mg, Oral, HS PRN Insomnia, Starting on Fri08/18/24 at 1659, Until Gabriela 08/19/24 at 1852 Polyethylene Glycol 3350 (Miralax) oral powder 17 g(Linked Group 1) 17 g (1 Packet), Oral, DAILY PRN Constipation, Starting on Fri08/18/24 at 1659, Until Gabriela 08/19/24 at 1852, Administer if no bowel movement within past 24 hours. senna-docusate (Senokot-S) 1 Tablet(Linked Group 1) 1 Tablet, Oral, BID PRN Constipation, Starting on Fri08/20/24 at 1659, Until Gabriela 08/19/24 at 1852, Administer in addition to polyethylene glycol if no bowel movement within past 48 hours. sodium chloride 0.9 % flush/inj 3 mL 3 mL, IV Push, PRN Other, Line Patency, Starting on Fri08/18/24 at 1659, Until Gabriela 08/19/24 at 1852, Do not flush if lock, PICC, or central line not in place, IV infusing or unable to flush Linked Groups Order Group 1: Polyethylene Glycol 3350 (Miralax) oral powder 17 gJump to med 17 g (1 Packet), Oral, DAILY PRN Constipation, Starting on Fri08/18/24 at 1659, Until Gabriela 08/19/24 at 1852, Administer if no bowel movement within past 24 hours. And senna-docusate (Senokot-S) 1 TabletJump to med 1 Tablet, Oral, BID PRN Constipation, Starting on Fri08/20/24 at 1659, Until Gabriela 08/19/24 at 1852, Administer in addition to polyethylene glycol if no bowel movement within past 48 hours. And Bisacodyl (Dulcolax) tab 5 mgJump to med 5 mg, Oral, DAILY PRN Constipation, Starting on 08/21/24 at 1659, Until Gabriela 08/19/24 at 1852, Administer in addition to polyethylene glycol and senna- docusate if no bowel movement in past 72 hours. And Bisacodyl (Dulcolax) supp 10 mgJump to med 10 mg, Rectal, DAILY PRN Constipation, Starting on 08/21/24 at 1659, Until Gabriela 08/19/24 at 1852, Administer if no bowel movement within past 72 hours and patient unable to take oral medications. documented in this encounter Advance Directives * Full Code (Latest Code Status on File) Date Activated Date Inactivated Comments 08/18/2024 5:00 PM 08/19/2024 6:57 PM This order reflects the patients wishes and were consensually agreed upon. Question Answer Comments Discussion of Advance Directives occurred with: Patient Care Teams Timber Estimator Relationship Specialty Start Date End Date Maria Isabel Jenkins MD [id number] [facility] [place] [id number] PCP - General Internal Medicine 03/04/23 documented as of this encounter
--- OUTSIDE RECORDS SUMMARY | 2024-10-16 13:17 | External Medical Summary ---
Author Name Unknown Address Unknown Organization K1F:LABORATORY [facility] - [address] [address] Laboratory Report Ordering Provider Test Date Status PETE,YESABRINA 08/19/2024 06:15:00 Final Warfarin Therapy
INR: 2 .0-3.0 conventional anticoagulation
INR: 2.5- 3.5 high intensity anticoagulation Observation Date Value Abnormality Reference (Units ) Status PT 08/19/2024 06:15:00 15.3 Above high normal 11 .6-15.2 (seconds) Final INR 08/19/2024 06:15:00 1.2 0.8-1.2 Final Performing Location LABORATORY [facility] - [address] [address]
--- OUTSIDE RECORDS SUMMARY | 2024-10-16 13:17 | External Medical Summary ---
Author Name Unknown Address Unknown Organization K1F:LABORATORY [facility] - [address] [address] Laboratory Report Ordering Provider Test Date Status JAZZMINE FREEMANNATALIIA 08/18/2024 15:05:00 Final Observation Date Value Abnormality Reference (Units ) Status Phosphate 08/18/2024 15:05:00 5.2 Above high normal 2. 5-4.8 (mg/dL) Final Performing Location LABORATORY [facility] - [address] [address]
--- OUTSIDE RECORDS SUMMARY | 2024-10-16 13:17 | External Medical Summary ---
Author Name Unknown Address Unknown Organization K1F:LABORATORY [facility] - [address] [address] Laboratory Report Ordering Provider Test Date Status PETENENASABRINA 08/19/2024 06:15:00 Final Observation Date Value Abnormality Reference (Units ) Status Magnesium 08/19/2024 06:15:00 1.5 1.5-2.6 (m g/dL) Final Performing Location LABORATORY [facility] - [address] [address]
--- OUTSIDE RECORDS SUMMARY | 2024-10-16 13:17 | External Medical Summary ---
Author Name Unknown Address Unknown Organization K1F:LABORATORY [facility] - [address] [address] Laboratory Report Ordering Provider Test Date Status IMMANUEL FREEMAN 08/18/2024 15:05:00 Final Warfarin Therapy
INR: 2 .0-3.0 conventional anticoagulation
INR: 2.5- 3.5 high intensity anticoagulation Observation Date Value Abnormality Reference (Units ) Status PT 08/18/2024 15:05:00 15.1 11.6-15.2 (seconds) Final INR 08/18/2024 15:05:00 1.2 0.8-1.2 Final Performing Location LABORATORY [facility] - [address] [address]
--- OUTSIDE RECORDS SUMMARY | 2024-10-16 13:17 | External Medical Summary ---
Author Name Unknown Address Unknown Organization K1F:LABORATORY [facility] - [address] [place] [address] Laboratory Report Ordering Provider Test Date Status IMMANUEL FREEMAN 08/18/2024 15:05:00 Final Observation Date Value Abnormality Reference (Units ) Status BUN 08/18/2024 15:05:00 35 Above high normal 6-20 (mg/dL) Final Creatinine 08/18/2024 15:05:00 7.6 Above high normal 0.6-1.2 (mg/dL) Final Glomerular filtration rate/1.73 sq M.predicted [Volume Rate/Area] in Serum, Plasma or Blood by Creatinine-based formula (CKD-EPI) 08/18/2024 15:05:00 7 Below low normal >=60 (mL/min) Final eGFR is calculated based on the CKD-EPI 2020 equation. Sodium 08/18/2024 15:05:00 134 Below low normal 135 -146 (mmol/L) Final Potassium 08/18/2024 15:05:00 4.3 3.5-5.1 (m mol/L) Final Cl 08/18/2024 15:05:00 96 Below low normal 98- 107 (mmol/L) Final CO2 08/18/2024 15:05:00 22 22-32 (mmo l/L) Final Anion gap 08/18/2024 15:05:00 16 Above high normal 7- 15 (mmol/L) Final Glucose 08/18/2024 15:05:00 195 Above high normal 70 -120 (mg/dL) Final Calcium 08/18/2024 15:05:00 8.1 Below low normal 8.4 -10.2 (mg/dL) Final Performing Location LABORATORY [facility] - [address] [address]
--- OUTSIDE RECORDS SUMMARY | 2024-10-16 13:17 | External Medical Summary ---
Author Name Unknown Address Unknown Organization : Laboratory Report Ordering Provider Test Date Status ROSIBEL NICOLE JARRED 2024 09:45:30 Final Therapeutic ranges for non-o perative patients:
Prophylaxsis/treatment of DVT: (Range:2.0-3.0)
Treatment of pulmonary embolism:(Range:2.0-3.0)
Prevention of systemic embolism from:
-tissue heart valves
-acute myocardial infarction
-valvular heart disease
-atrial fibrillation
(Range: 2.0-3.0)
Mechanical prosthetic valves: (Range: 2.5-3.5) Observation Date Value Abnormality Reference (Units ) Status INR in Capillary blood by Coagulation assay 2024 09:45:30 1.1 (INR) Final Performing Location
--- OUTSIDE RECORDS SUMMARY | 2024-10-16 13:17 | External Medical Summary ---
Author Name Unknown Address Unknown Organization K1F:LABORATORY [facility] - [address] [place] [address] Laboratory Report Ordering Provider Test Date Status IMMANUEL FREEMAN 08/19/2024 06:15:00 Final Observation Date Value Abnormality Reference (Units ) Status BUN 08/19/2024 06:15:00 36 Above high normal 6-20 (mg/dL) Final Creatinine 08/19/2024 06:15:00 7.0 Above high normal 0.6-1.2 (mg/dL) Final Glomerular filtration rate/1.73 sq M.predicted [Volume Rate/Area] in Serum, Plasma or Blood by Creatinine-based formula (CKD-EPI) 08/19/2024 06:15:00 8 Below low normal >=60 (mL/min) Final eGFR is calculated based on the CKD-EPI 2020 equation. Sodium 08/19/2024 06:15:00 134 Below low normal 135 -146 (mmol/L) Final Potassium 08/19/2024 06:15:00 3.5 3.5-5.1 (m mol/L) Final Cl 08/19/2024 06:15:00 94 Below low normal 98- 107 (mmol/L) Final CO2 08/19/2024 06:15:00 25 22-32 (mmo l/L) Final Anion gap 08/19/2024 06:15:00 15 7-15 (mmol /L) Final Glucose 08/19/2024 06:15:00 259 Above high normal 70 -120 (mg/dL) Final Albumin 08/19/2024 06:15:00 3.1 Below low normal 3.8 -5.0 (g/dL) Final AST (Aspartate aminotransferase) 08/19/2024 06:15:00 28 10-50 (U/L) Fin al Alk Phos 08/19/2024 06:15:00 76 35-130 (U/ L) Final Bilirubin, Total 08/19/2024 06:15:00 0.4 <=1 .2 (mg/dL) Final Calcium 08/19/2024 06:15:00 8.3 Below low normal 8.4 -10.2 (mg/dL) Final Protein 08/19/2024 06:15:00 5.8 Below low normal 6.0 -8.3 (g/dL) Final ALT (Alanine aminotransferase) 08/19/2024 06:15:00 42 10-50 (U/L) [facility] Location LABORATORY [facility] - [address] [place], [place] [address] [place] [address]
--- OUTSIDE RECORDS SUMMARY | 2024-10-16 13:18 | External Medical Summary | Summary of Care ---
Author Name Unknown Organization [facility] Address [address] [place] [address] Phone [phone] Care Team Providers Care User Experience Architect Name Role Phone Debbie Arango MD Primary Care Provider Reason for Visit * Reason Comments Follow Up Return pul. [facility] linked to this appt. 4 weeks. PFT results. * Evaluate & Treat - Unlimited Visits (Within 30 days (routine)) - Authorized Specialty Diagnoses / Procedures Referred By Valarie stanley Referred To Contact Pulmonary Diagnoses Dyspnea, unspecified Procedures Eval and treat Deirdre Sauceda CRNP [address] [place] [address] Referral ID Status Reason Start Date Expiration Date Visits Requested Visits Authorized [id number] Authorized Specialty Services Required 05/10/2024 11/27/2024 [id number] Encounter Details Date Type Department Care Team (Late st Contact Info) Description 07/08/2024 10:20 AM EDT Office Visit Pulmonary Medicine, [facility] 132 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 12 Tablet 07/02/2024 Active Hospital, Clinic, or Other Facility Administered [...] as of this encounter (statuses as of 07/08/2024) Active Problems Problem Noted Date Diagnosed Date 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 Paroxysmal atrial flutter 06/28/2024 Hypertrophic cardiomyopathy 06/28/2024 CKD (chronic kidney disease) stage 5, GFR less than 15 ml/min 05/21/2023 Peripheral vascular disease with claudication HTN, goal below 130/80 05/21/2023 documented as of this encounter (statuses as of 07/08/2024) Social History Tobacco Use Types Packs/Day Years [...] Sign Reading Time Taken Comments Blood Pressure 108/62 07/08/2024 10:17 AM EDT Pulse 77 07/08/2024 10:17 AM EDT Temperature 35.8 C (96.4 F) 07/08/2024 10:17 AM E DT Respiratory Rate 16 07/08/2024 10:17 AM EDT Oxygen Saturation 95% 07/08/2024 10:18 AM EDT Inhaled Oxygen Concentration - - Weight 84.8 kg (187 lb) 07/08/2024 10:17 AM EDT Height 172.7 cm (5' 8") 07/08/2024 10:17 AM EDT Body Mass Index 28.43 07/08/2024 10:17 AM EDT documented in this encounter Progress Notes * Kumar Noyola MD - 07/08/2024 10:25 AM EDT Images from the original note were not included. 07/08/2024 Pulmonary Medicine, [address] [id number] Monster Samson 1945 male 78 year old Attending Physician Documentation: 78 yo [employer] 35 py smoking, Quit 2 years ago [employer] CKD, on PD PAF HTN Esophageal Achalasia, s/p dilatation AFib/RVR, + ? Asp PNA [facility] 03/2024 Multifactorial Dyspnea. Denies productive cough, wheezing. Denies difficulty with solids or liquidsexcept episodic regurgitation. Undergoing GI evaluation for esophageal stretching. Physical examination: Elderly male, no apparent distress Class 3 throat No JVD Adequate air entry, scattered rhonchi, no dullness Soft, nontender abdomen No lower extremity edema Nonlateralizing Neuro examination PFT: Mixed Obstructive and Restrictive ventilatory Pattern, Amiodarone therapy Status. NO Bronchodilator response noted (FEV1 was worse after BD) 6 MWT: WNL NPOX on RA: Pending CT Chest Noncontrast: No evidence of aspiration, trace subpleural changes, no evidence of significant scarring noted. PD status with trace abdominal fluid noted. Assessment Check-out note: 78 yo [employer] 35 py smoking, Quit 2 years ago [employer] CKD, on PD PAF HTN Esophageal Achalasia, s/p dilatation AFib/RVR, + ? Asp PNA [facility] 03/2024 Multifactorial Dyspnea. Denies productive cough, wheezing. Denies difficulty with solids or liquidsexcept episodic regurgitation. Undergoing GI evaluation for esophageal stretching. PFT: Mixed Obstructive and Restrictive ventilatory Pattern, Amiodarone therapy Status. NO Bronchodilator response noted (FEV1 was worse after BD) Check-out note: 6 MWT: WNL NPOX on RA: Pending CT Chest Noncontrast: No evidence of aspiration, trace subpleural changes, no evidence of significant scarring noted. PD status with trace abdominal fluid noted. Assessment Multifactorial Dyspnea, primary related to cardiac and KD related Risk factors Recommend repeat PFT in 1 year to eval r/o Amiodarone related worsening of Restrictive parameters F/u 1 year Data review: CT CHEST WO CONTRAST DATE and TIME: 06/01/2024 CLINICAL INFORMATION: Aspiration pneumonia, Hx of Achalasia COMPARISON CT chest 04/22/2024 FINDINGS LUNGS: Linear opacities in the right lower lobe favored to represent subsegmental atelectasis. Minimal left basilar atelectasis. Mild upper lobe paraseptal emphysematous changes. No consolidative airspace opacities. No suspicious lung nodules. IMPRESSION 1. No evidence of aspiration pneumonia. Linear fat disease in the right lower lobe favored to represent subsegmental atelectasis. Trace secretions in the trachea. 2. Dilated patulous esophagus with reflux to the mid thorax consistent with known history of achalasia.. 3. Cirrhosis with small volume perihepatic ascites. 4. Atrophic bilateral kidneys. There is a 1.1 centimeter exophytic above fluid density cyst in the left interpolar kidney. Recommend further evaluation with renal ultrasound. Kumar Noyola MD Subjective CC: Chief Complaint [facility]. PFT results. HPI: Nursing Notes: Angela Peter LPN 07/08/24 1022 Signed Chief Complaint [facility] weeks. PFT results. Interm History/Respiratory Symptoms Cough: no Hemoptysis: no Sinus Symptoms: no Hospitalizations: no ED Trips: no Triggers: no Nocturnal: sleeps with head elevated.-hospital bed Often sleeps in recliner. CPAP/BiPAP/O2: no DME Supplier: no Flu Vaccine: none Pneumovax: none Prevnar: none. COVID 19: none. MMRC Dyspnea Scale = 4 (I am too breathless to leave the house or I am breathless when dressing) Objective Filed Vitals: 07/08/24 1017 07/08/24 1018 BP: 108/62 Pulse: 77 Resp: 16 Temp: 35.8 C (96.4 F) TempSrc: Tympanic SpO2: 96% 95% Weight: 84.8 kg (187 lb) Height: 1.727 m (5' 8") Exam: Const: No signs of acute distress present. Head/Face: Normal on inspection. Eyes: Conjunctivae clear. Pupils equal round and reactive to light. ENMT: Oropharynx: No erythema, exudate or masses. Posterior pharynx is normal. Neck: Supple and symmetric. Resp: Respiratory examination as outlined above CV: Rate is regular. Rhythm is regular. No heart murmur appreciated. Extremities: No edema of the lower limbs bilaterally. Skin: Skin is warm and dry. Neuro: Coordination normal. No involuntary movement. Psych: Patient's attitude is cooperative. Mood is normal. Affect is normal. Tests reviewed with the patient: CT HEAD/BRAIN WO CONTRAST Result Date: 06/07/2024 IMPRESSION: No acute intracranial abnormality. Moderate cerebral volume loss. CT CHEST WO CONTRAST Result Date: 06/03/2024 IMPRESSION 1. No evidence of aspiration pneumonia. Linear fat disease in the right lower lobe favored to represent subsegmental atelectasis. Trace secretions in the trachea. 2. Dilated patulous esophagus with reflux to the mid thorax consistent with known history of achalasia.. 3. Cirrhosis with small volume perihepatic ascites. 4. Atrophic bilateral kidneys. There is a 1.1 centimeter exophytic above fluid density cyst in the left interpolar kidney. Recommend further evaluation with renal ultrasound. XR CHEST 2 VIEWS Result Date: 06/01/2024 IMPRESSION No evidence of acute cardiopulmonary disease. XR ABDOMEN 1 VIEW Result Date: 05/25/2024 IMPRESSION 1. Mild to moderate colonic stool burden. 2. Peritoneal dialysis catheter coiled in the pelvis. No discrete kinking or discontinuity. XR ABDOMEN 1 VIEW Result Date: 01/13/2024 IMPRESSION No evidence of obstruction. XR CHEST 2 VIEWS Result Date: 01/13/2024 IMPRESSION No active disease. Available Radiologic data was reviewed by me in PACS. The images were shown to the patient and findings were discussed with the patient. HOME MEDICATIONS: Amiodarone HCl 200 MG Oral Tablet (Cordarone) Metoprolol Tartrate 25 MG Oral Tablet (Lopressor) Metoprolol Tartrate 25 MG Oral Tablet (Lopressor) Metoprolol Succinate ER 25 MG Oral Tablet Extended Release 24 Hour (toPROL XL) Midodrine HCl 2.5 MG Oral Tablet (Proamatine) Vitamin D 50 MCG (1999 UT) Oral Capsule Docusate Sodium 100 MG Oral Capsule (Colace) Warfarin Sodium 5 MG Oral Tablet (Coumadin) Gentamicin Sulfate 0.1 % External Cream Renal Vitamin 0.8 MG Oral Tablet Nutra/Shake Oral Liquid Albuterol Sulfate (Proventil) (2.5 MG/3ML) 0.083% inhalation solution 2.5 mg Albuterol Sulfate (Proventil) (5 MG/ML) 0.5% *conc* inhalation solution 2.5 mg ROS: No reported history of Hemoptysis, Hematemesis, Melena No reported history of Dysuria, Hematuria, Flank Pain No reported history of chronic headache, seizures No reported history of Fall or trauma . No reported history of recent change in weight or appetite. No past medical history on file. Past Surgical History: Procedure Laterality Date BOTULINUMTOXIN A (DEREK), 1 UNIT, INJ. N/A 02/03/2024 INJECTION, ONABOTULINUMTOXIN A, 1 UNIT (BOTOX) performed by Salena العلي MD at OR [facility] EGD, FLEXIBLE, DIAGNOSTIC N/A 02/03/2024 mild desquamation lower esophagus/tortuous and mildly dilated esophagus/ESOPHAGOGASTRODUODENOSCOPY (EGD), FLEXIBLE, TRANSORAL, DIAGNOSTIC performed by Salena العلي MD at OR [facility] Social History Socioeconomic History Marital status: Tobacco Use Smoking status: Former Types: Cigars Smokeless tobacco: Never Tobacco comments: 3-4 Cigars per day Vaping Use Vaping status: Never Used Substance and Sexual Activity Alcohol use: Yes Comment: 4 mixed drinks per week Drug use: Never Social Determinants of Health Social Connections Family History Problem Relation Name Age of Onset Other (accidental overdose-) Mother Diabetes Father Review of patient's allergies indicates: No Known Allergies documented in this encounter Nursing Notes * Angela Peter LPN - 07/08/2024 10:20 AM EDT Chief Complaint [facility] weeks. PFT results. Interm History/Respiratory Symptoms Cough: no Hemoptysis: no Sinus Symptoms: no Hospitalizations: no ED Trips: no Triggers: no Nocturnal: sleeps with head elevated.-hospital bed Often sleeps in recliner. CPAP/BiPAP/O2: no DME Supplier: no Flu Vaccine: none Pneumovax: none Prevnar: none. COVID 19: none. MMRC Dyspnea Scale = 4 (I am too breathless to leave the house or I am breathless when dressing) documented in this encounter Plan of Treatment Upcoming Encounters Date Type Department Care Team (Latest Contact Info) Description 4 2:00 PM EDT Telemedicine [facility] [address] [place] [address] Pa Gonzalez III, MD [address] [place] [address] 4 9:45 AM EDT Hospital Encounter ENDO [facility], Endoscopy Suite, HFAM 1, [address] [place] [address] Jose Ramon Morgan MD [address] [place] [address] 4 9:45 AM EDT - 4 11:00 AM EDT Surgery ENDO [facility], Endoscopy Suite, HFAM 1, [address] [place] [address] Jose Ramon Morgan MD [address] [place] [address] ESOPHAGOGASTRODUODENOSCOPY (EGD), FLEXIBLE, TRANSORAL, DIAGNOSTIC 4 9:30 AM EST Office Visit Cardiology, [facility] [address] [facility] [place] [address] Nannette Gonzales CRNP 400 [facility] [place] [id number] 4 11:30 AM EST Telemedicine Cardiovascular Genetics, [facility] [place] [place] [address] Kayla Larson, MS [address] [place], [place] [address] 4 10:30 AM EST Office Visit Cardiology, [facility] 132 [place] [address] Rick Tan, DO [address] [place] [address] 4 3:00 PM EST Office Visit Neurology [facility] [address] [place] [address] Carlos Jiménez, DO 200 [place] [address] 5 3:20 PM EDT Office Visit Pulmonary Medicine, [facility] 132 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
--- OUTSIDE RECORDS SUMMARY | 2024-10-16 13:18 | External Medical Summary | Summary of Care ---
Author Name Unknown Organization [facility] Address [address] [place] [address] Phone [phone] Care Team Providers Care Enterprise Resource Analyst Name Role Phone Debbie Arango MD Primary Care Provider Reason for Visit * Reason Onset Date Comments Advice 07/13/2024 Encounter Details Date Type Department Care Team (Late st Contact Info) Description 07/13/2024 Telephone Cardiology, [facility] 132 [facility] Derek [facility] [place] [address] Rosalba Humphrey, 400 [facility] [place] [address] Advice Allergies No known active allergiesdocumented as of this encounter (statuses as of 07/14/2024) Medications Medication Sig Dispensed Refills Start Date [...] as of this encounter (statuses as of 07/14/2024) Active Problems Problem Noted Date Diagnosed Date 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 Paroxysmal atrial flutter 06/28/2024 Hypertrophic cardiomyopathy 06/28/2024 CKD (chronic kidney disease) stage 5, GFR less than 15 ml/min 05/21/2023 Peripheral vascular disease with claudication HTN, goal below 130/80 05/21/2023 documented as of this encounter (statuses as of 07/14/2024) Social History Tobacco Use Types Packs/Day Years [...] Telephone Encounter - Snow Silva CMA - 07/14/2024 2:10 PM EDT Spoke with patient's son to discuss. He states patient will not be able to take Lovenox d/t kidney failure. [facility] to discuss. * Telephone Encounter - Maria Guadalupe Pederson PA-C - 07/14/2024 1:49 PM EDT Chart reviewed Patient on coumadin for history of PAF and prior pulmonary embolus. It appears we do NOT manage his anticoagulation. From a cardiac perspective, it would be acceptable to hold his coumadin for 5 days, but given his history of PE, he would likely need a bridge therapy with Lovenox. They need to reach out to his managing provider or anticoagulation clinic * Telephone Encounter - Snow Silva CMA - 07/14/2024 11:02 AM EDT Called patient to inquire about procedure -- spoke with son, Dominic. He states patient is to have an endoscopy with endoflip on July 20. Asking to hold Warfarin for 5 days prior to procedure. Please advise. * Telephone Encounter - Madelin Batista OSA - 07/13/2024 4:30 PM EDT Person calling: Dyana Relationship to patient: Phone/Fax to return call: [phone] Reason for call(brief): advice Provider Name:Milagro Detailed message to office: Patient has upcoming procedure and they would like for him to hold his warfarin medication 5 days prior to the procedure. Please advise. documented in this encounter Plan of Treatment Upcoming Encounters Date Type Department Care Team (Latest Contact Info) Description 9:45 AM EDT Hospital Encounter [facility]O [facility], Endoscopy Suite, HFAM 1, [address] [place] [address] Jose Ramon Morgan MD [address] [place] [address] 9:45 AM EDT - 11:00 AM EDT Surgery ENDO [facility], Endoscopy Suite, HFAM 1, [address] [place] [address] Jose Ramon Morgan MD [address] [place], [place] [id number] ESOPHAGOGASTRODUODENOSCOPY (EGD), FLEXIBLE, TRANSORAL, DIAGNOSTIC 4 9:30 AM EST Office Visit Cardiology, [facility] 132 [place] [address] Nannette Gonzales CRNP [address] [place], [place] [phone] 4 11:30 AM EST Telemedicine Cardiovascular Genetics, [facility] 132 [place] [address] Kayla Larson, MS 132 [facility] [place] [address] 4 10:30 AM EST Office Visit Cardiology, [facility] 132 [place] [address] Rick Tan, DO 132 [facility] [place] [address] 4 3:00 PM EST Office Visit Neurology [facility] 200 [facility] [place] [address] Carlos Jiménez, DO 200 [facility] [place] [address] 5 3:20 PM EDT Office Visit Pulmonary Medicine, [facility] 132 [place] [address] Kumar Noyola MD [address] [place] [address] Scheduled Procedures Name Priority Associated Diagnoses Date/Ti [...] filedocumented as of this encounter Care Teams Enterprise Resource Analyst Relationship Specialty [place] [address] [place] [address] [place] [id number] PCP - General Internal Medicine 03/04/23 documented as of this encounter
--- OUTSIDE RECORDS SUMMARY | 2024-10-16 13:18 | External Medical Summary | Summary of Care ---
Author Name Unknown Organization [facility] Address [address] [place] [address] Phone [phone] Care Team Providers Care Tool Polisher Name Role Phone Debbie Arango MD Primary Care Provider Reason for Visit * Reason Onset Date Comments Advice 07/15/2024 Milagro Encounter Details Date Type Department Care Team (Late st Contact Info) Description 07/15/2024 Telephone Cardiology, [place] 400 [facility] [place] [address] Rosalba Humphrey, [address] [facility] [address] Advice (Milagro) Allergies No known active allergiesdocumented as of this encounter (statuses as of 07/15/2024) Medications Medication Sig Dispensed Refills Start Date [...] as of this encounter (statuses as of 07/15/2024) Active Problems Problem Noted Date Diagnosed Date 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 Paroxysmal atrial flutter 06/28/2024 Hypertrophic cardiomyopathy 06/28/2024 CKD (chronic kidney disease) stage 5, GFR less than 15 ml/min 05/21/2023 Peripheral vascular disease with claudication HTN, goal below 130/80 05/21/2023 documented as of this encounter (statuses as of 07/15/2024) Social History Tobacco Use Types Packs/Day Years [...] encounter Miscellaneous Notes * Telephone Encounter - Carolee Morgan OSA - 07/15/2024 2:19 PM EDT Person calling: Dyana Samson Relationship to patient: x- Phone/Fax to return call: [phone] Reason for call(brief): holding warfarin for procedure Pharmacy: -- Provider Name: Milagro Detailed message to office: Having a endoflip procedure on 07/20/24 at [facility] with gastroenterology. Pre-op nurse wants to hold the warfarin. He is a peritoneal dialysis patient and cannot take the bridging medicine, Lovenox. How dangerous is it for him to stop the warfarin for 5 days and for a few days after? Is there a different medication he can use for bridging considering his peritoneal dialysis? Time sensitive because they want him to stop it today. * Telephone Encounter - Nigel West LPN - 07/15/2024 10:31 AM EDT Arelis Baum from the MD is who manages patient's Coumadin, she was just giving an update and clarifying. * Telephone Encounter - Maria Guadalupe Pederson PA-C - 07/15/2024 10:22 AM EDT Noted. Then likely just needs to hold coumadin, but again, we do not manage his PT/INR through [facility] -so instructions need to come from the MD or the anticoagulation clinic who manages his medication * Telephone Encounter - Nigel West LPN - 07/15/2024 10:07 AM EDT Returned call. Addressed questions. Informed of Maria Guadalupe's message. FYI: Arelis Baum from MD stated patient can not be bridged due to being on dialysis and Lovenox being contraindicated. Recent VQ scan show low probability of PE. * Telephone Encounter - Moy Ojeda OSA - 07/15/2024 9:55 AM EDT Person calling: Arelis baum Relationship to patient: Pharmacist at MD Phone/Fax to return call: [phone] Reason for call(brief): Medications/warfarin Pharmacy: MD Provider Name:Milagro Detailed message to office:Arelis calling asking to speak with office because pt was advised to holdwarfarin prior to upcoming procedure and looking into his chart she believes that would not work. Please call to advise. documented in this encounter Plan of Treatment Upcoming Encounters Date Type Department Care Team (Latest Contact Info) Description 4 9:45 AM EDT Hospital Encounter [facility]O [facility], Endoscopy Suite, HFAM 1, [address] [place] [address] Jose Ramon Morgan MD [address] [place] [address] 4 9:45 AM EDT - 4 11:00 AM EDT Surgery ENDO [facility], Endoscopy Suite, HFAM 1, [address] [place] [address] Jose Ramon Morgan MD [address] [place] [address] ESOPHAGOGASTRODUODENOSCOPY (EGD), FLEXIBLE, TRANSORAL, DIAGNOSTIC 4 9:30 AM EST Office Visit Cardiology, [facility] 132 [place] [address] Nannette Gonzales CRNP [address] [place] [address] 4 11:30 AM EST Telemedicine Cardiovascular Genetics, [facility] 132 [facility] [place] [address] Kayla Larson, MS 132 [facility] [place] [address] 4 10:30 AM EST Office Visit Cardiology, [facility] 132 [facility] [place] [address] Rick Tan, DO [address] [place] [address] 4 3:00 PM EST Office Visit Neurology [facility] [address] [place] [address] Carlos Jiménez, DO [address] [place] [address] 5 3:20 PM EDT Office Visit Pulmonary Medicine, [facility] [address] [place] [address] Kumar Noyola MD [address] [place] [address] Scheduled Procedures Name Priority Associated Diagnoses Date/Ti [...] filedocumented as of this encounter Care Teams Tool Polisher Relationship Specialty Start Date End Date Debbie Arango MD [address] [place] [address] PCP - General Internal Medicine 03/04/23 documented as of this encounter
--- OUTSIDE RECORDS SUMMARY | 2024-10-16 13:18 | External Medical Summary | Summary of Care ---
Author Name Unknown Organization [facility] Address [address] [place] [address] Phone [phone] Care Team Providers Care Hydro Plant Technician Name Role Phone Debbie Arango MD Primary Care Provider Reason for Visit * Reason Onset Date Comments Referral 07/06/2024 New patient refe rral Encounter Details Date Type Department Care Team (Late st Contact Info) Description 07/06/2024 New Patient Triage (ANTHROPOLOGIST USE ONLY) [place] [address], [place] [id number] Niurka Treadwell, oracle distribution consultant (New patient referral) Allergies No known active allergiesdocumented as of this encounter (statuses as of 07/06/2024) Medications Medication Sig Dispensed Refills Start Date [...] as of this encounter (statuses as of 07/06/2024) Active Problems Problem Noted Date Diagnosed Date Paroxysmal atrial flutter 06/28/2024 Hypertrophic cardiomyopathy 06/28/2024 CKD (chronic kidney disease) stage 5, GFR less than 15 ml/min 05/21/2023 Peripheral vascular disease with claudication HTN, goal below 130/80 05/21/2023 documented as of this encounter (statuses as of 07/06/2024) Social History Tobacco Use Types Packs/Day Years [...] as of this encounter Progress Notes * John Rivers IV, PA-C - 07/06/2024 1:50 PM EDT Reviewed patient's chart, imaging, and reason for referral. 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 Per documentation on 07/05/2024 the neurologists would prefer a musclebiopsy of a quadriceps muscle in the lower extremities. Patient is appropriately scheduled in Neurosurgery Clinic. John Rivers IV, PA-C * Niurka Treadwell RN - 07/06/2024 10:20 AM EDT New Patient Triage What is the diagnosis/reason for referral?: [employer] Enter order ID here: [id number] Specialty specific documentation: Neuroscience: Neurosurgery Does patient need to be seen?: Yes Modality: Office visit Urgency: Within 10 days (routine) Discussed care plan with patient or proxy?: Yes discussed via telephone Communicated with patient on Date (mm/dd/yyyy): 07/06[birth year]1982 at Time ([facility]): 1020 Received new patient referral for: IBM - muscle biopsy w Dr. Gonzalez Scheduled 07/14 documented in this encounter Plan of Treatment Upcoming Encounters Date Type Department Care Team (Latest Contact Info) Description 4 10:20 AM EDT Office Visit Pulmonary Medicine, [address] [place] [address] Kumar Noyola MD [address] [place] [facility] [place] [address] 4 2:00 PM EDT Telemedicine Neurosurgery, [place] [address], [place] [id number] Pa Gonzalez III, MD [address], [place] [address] 4 9:45 AM EDT Hospital Encounter ENDO [facility], Endoscopy Suite, HFAM 1, [address] [place] [address] Jose Ramon Morgan MD [address] [place], [place] [id number] 4 9:45 AM EDT - 4 11:00 AM EDT Surgery ENDO C, Endoscopy Suite, HFAM 1, [address], [place] [id number] Jose Ramon Morgan MD [address] [place], [place] [id number] ESOPHAGOGASTRODUODENOSCOPY (EGD), FLEXIBLE, TRANSORAL, DIAGNOSTIC 4 9:30 AM EST Office Visit Cardiology, [facility] [address] [facility] [place] [address] Nannette Gonzales CRNP [address] [place] [address] 4 11:30 AM EST Telemedicine Cardiovascular Genetics, [facility] [address] [place] [address] Kayla Larson, MS [address] [place] [address] 4 10:30 AM EST Office Visit Cardiology, [facility] 132 [facility] [place] [address] Rick Tan, DO [address] [place] [address] 4 3:00 PM EST Office Visit Neurology [facility] [address] [place], [place] [address] Carlos Jiménez, DO [address] [place], [place] [address] Scheduled Procedures Name Priority Associated Diagnoses Date/Ti az ESOPHAGOGASTRODUODENOSCOPY ( EGD), FLEXIBLE, TRANSORAL, DIAGNOSTIC Dysphagia, unspecified type 07/20/2024 9:45 AM EDT Health Maintenance Due Date Last Done Comments Depression Screening 1958 DTap/Tdap Vaccines (1 - Tdap) 1965 COVID-19 [...] filedocumented as of this encounter Care Teams Hydro Plant Technician Relationship Specialty Start Date End Date Debbie Arango MD [address] [facility] [place] [address] PCP - General Internal Medicine 03/04/23 documented as of this encounter
--- OUTSIDE RECORDS SUMMARY | 2024-10-16 13:18 | External Medical Summary | Summary of Care ---
Author Name Unknown Organization [facility] Address [address] [place] [address] Phone [phone] Care Team Providers Care Professional Caster Name Role Phone Debbie Arango MD Primary Care Provider Reason for Visit * Reason Onset Date Comments Advice 07/15/2024 Milagro Encounter Details Date Type Department Care Team (Late st Contact Info) Description 07/15/2024 Telephone Cardiology, [place] [address] [facility] [place] [address] Rosalba Humphrey, [address] [facility] [address] Advice (Milagro) Allergies No known [...] encounter Miscellaneous Notes * Telephone Encounter - Nigel West LPN - 07/15/2024 10:31 AM EDT Arelis Baum from the [place] is who manages patient's Coumadin, she was just giving an update and clarifying. * Telephone Encounter - Maria Guadalupe Pederson PA-C - 07/15/2024 10:22 AM EDT Noted. Then likely just needs to hold coumadin, but again, we do not manage his PT/INR through [facility] -so instructions need to come from the [place] or the anticoagulation clinic who manages his medication * Telephone Encounter - Nigel West LPN - 07/15/2024 10:07 AM EDT Returned call. Addressed questions. Informed of Maria Guadalupe's message. FYI: Arelis Baum from [place] stated patient can not be bridged due to being on dialysis and Lovenox being contraindicated. Recent VQ scan show low probability of PE. * Telephone Encounter - Moy Ojeda OSA - 07/15/2024 9:55 AM EDT Person calling: Arelis baum Relationship to patient: Pharmacist at [place] Phone/Fax to return call: [phone] Reason for call(brief): Medications/warfarin Pharmacy: [place] Provider Name:Milagro Detailed message to office:Arelis jacqui asking to speak with office because pt was advised to holdwarfarin prior to upcoming procedure and looking into his chart she believes that would not work. Please call to advise. documented in this encounter Plan of Treatment Upcoming Encounters Date Type Department Care Team (Latest Contact Info) Description 9:45 AM EDT Hospital Encounter ENDO [facility], Endoscopy Suite, HFAM 1, [address] [place] [address] Jose Ramon Morgan MD [address] [facility] [place] [address] 9:45 AM EDT - 11:00 AM EDT Surgery ENDO [facility], Endoscopy Suite, HFAM 1, [address] [place] [address] Jose Ramon Morgan MD [address] [place] [address] ESOPHAGOGASTRODUODENOSCOPY (EGD), FLEXIBLE, TRANSORAL, DIAGNOSTIC 4 9:30 AM EST Office Visit Cardiology, [facility] 132 [facility] [address] Nannette Gonzales CRNP 400 [facility] [place] [address] 4 11:30 AM EST Telemedicine Cardiovascular Genetics, [facility] 132 [facility] [place] [address] Kayla Larson, MS [address] [place] [address] 4 10:30 AM EST Office Visit Cardiology, [facility] 132 [place] [address] Rick Tan, DO [address] [place] [address] 4 3:00 PM EST Office Visit Neurology [facility] 200 [facility] [place], [place] [address] Carlos Jiménez, DO 200 [facility] [place] [address] 5 3:20 PM EDT Office Visit Pulmonary Medicine, [facility] 132 [facility] [place] [address] Kumar Noyola MD [address] [place] [address] Scheduled Procedures Name Priority Associated Diagnoses Date/Ti [...] filedocumented as of this encounter Care Teams Professional Caster Relationship Specialty Start Date End Date Debbie Arango MD [address] [facility] [place] [address] PCP - General Internal Medicine 03/04/23 documented as of this encounter
--- OUTSIDE RECORDS SUMMARY | 2024-10-16 13:18 | External Medical Summary | Summary of Care ---
Author Name Unknown Organization [facility] Address [address] [place] [address] Phone [phone] Care Team Providers Care Financial Management Consultant Name Role Phone Debbie Arango MD Primary Care Provider Reason for Visit * Reason Onset Date Comments Advice 07/15/2024 Milagro Encounter Details Date Type Department Care Team (Late st Contact Info) Description 07/15/2024 Telephone Cardiology, [place] [address] [facility] [place] [address] Rosalba Humphrey, [facility] [address] Advice (Milagro) Allergies No known [...] to patient: x- Phone/Fax to return call: [phone] Reason for call(brief): holding warfarin for procedure Pharmacy: -- Provider Name: Milagro Detailed message to office: Having a endoflip procedure on 07/20/24 at [facility] with gastroenterology. Pre-op nurse wants to hold [...] 10:31 AM EDT Arelis Baum from the [place] is who manages patient's Coumadin, she was just giving an update and clarifying. * Telephone Encounter - Maria Guadalupe Pederson PA-C - 07/15/2024 10:22 AM EDT Noted. Then likely just needs to hold coumadin, but again, we do not manage his PT/INR through [facility] -so instructions need to come from the [place] or the anticoagulation clinic who manages his medication * Telephone Encounter - Nigel West LPN - 07/15/2024 10:07 AM EDT Returned call. Addressed questions. Informed of Maria Guadalupe's message. FYI: Arelis Baum from [place] stated patient can not be bridged due to being on dialysis and Lovenox being contraindicated. Recent VQ scan show low probability of PE. * Telephone Encounter - Moy Ojeda OSA - 07/15/2024 9:55 AM EDT Person calling: Arelis baum Relationship to patient: Pharmacist at [place] Phone/Fax to return call: [phone] Reason for call(brief): Medications/warfarin Pharmacy: [place] Provider Name:Milagro Detailed message to office:Arelis calling asking to speak with office because pt was advised to holdwarfarin prior to upcoming procedure and looking into his chart she believes that would not work. Please call to advise. documented in this encounter Plan of Treatment Upcoming Encounters Date Type Department Care Team (Latest Contact Info) Description 4 9:45 AM EDT Hospital Encounter ENDO [facility], Endoscopy Suite, HFAM 1, [address] [place] [address] Jose Ramon Morgan MD [address] [place] [address] 4 9:45 AM EDT - 4 11:00 AM EDT Surgery ENDO [facility], Endoscopy Suite, HFAM 1, [address] [place] [address] Jose Ramon Morgan MD [address] [place] [address] ESOPHAGOGASTRODUODENOSCOPY (EGD), FLEXIBLE, TRANSORAL, DIAGNOSTIC 4 9:30 AM EST Office Visit Cardiology, [facility] 132 [facility] [address] Nannette Gonzales CRNP [address] [place] [address] 4 11:30 AM EST Telemedicine Cardiovascular Genetics, [facility] 132 [facility] [place] [address] Kayla Larson, [place] 132 [facility] [place] [address] 4 10:30 AM EST Office Visit Cardiology, [facility] 132 [facility] [place] [address] Rick Tan, DO [address] [place] [address] 4 3:00 PM EST Office Visit Neurology [facility] [address] [place] [address] Carlos Jiménez, DO [address] [place] [address] 5 3:20 PM EDT Office Visit Pulmonary Medicine, [facility] [address] [place] [address] Kumar Noyola MD [address] [place] [address] Scheduled Procedures Name Priority Associated Diagnoses Date/Ti [...] filedocumented as of this encounter Care Teams Financial Management Consultant Relationship Specialty Start Date End Date Debbie Arango MD [address] [place] [address] PCP - General Internal Medicine 03/04/23 documented as of this encounter
--- OUTSIDE RECORDS SUMMARY | 2024-10-16 13:18 | External Medical Summary | Summary of Care ---
Author Name Unknown Organization [facility] Address [address] [place] [address] Phone [phone] Care Team Providers Care Data Conversion Operator Name Role Phone Debbie Arango MD Primary Care Provider Encounter Details Date Type Department Care Team (Late st Contact Info) Description 07/23/2024 Telephone Neurosurgery, [place] [address] [place], [place] [id number] Services, [facility] [address] [place] [address] Allergies No known active allergiesdocumented as of this encounter (statuses as of 07/27/2024) Medications Medication Sig Dispensed Refills Start Date [...] as of this encounter (statuses as of 07/27/2024) Active Problems Problem Noted Date Diagnosed Date 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 Patient is scheduled for 08/24/24 Thank you, Ricco OR [facility] [phone] * Telephone Encounter - Maribel Murphy OSA - 07/23/2024 5:13 PM EDT Pt's called and wanted to know if pt can have quadriceps muscle biopsy around the time of 08/18 being that he has to be off Warfarin for 2 weeks after 08/18 procedure for gastro as well. Please assist. [phone] Thank you documented in this encounter Plan of Treatment Upcoming Encounters Date Type Department Care Team (Latest Contact Info) Description 4 8:00 AM EDT Hospital Encounter OR [facility], Operating Room, [facility] - 4th Floor 400 [place] [address] Uli Caraballo MD [address] [place] [address] 4 8:00 AM EDT - 4 9:31 AM EDT Surgery OR [facility], Operating Room, [facility] - 4th Floor 400 [facility] [place] [address] Uli Caraballo MD [address] [place] [address] ESOPHAGOGASTRODUODENOSCOPY (EGD), FLEXIBLE, TRANSORAL, DIAGNOSTIC 4 7:30 AM EST Hospital Encounter OR [facility], OPERATING ROOM [facility] [address] [place] [address] Pa Gonzalez III, MD [address] [place], [place] [address] 4 7:30 AM EST - 4 9:31 AM EST Surgery OR [facility], OPERATING ROOM [facility] [address] [place] [facility] [address] Pa Gonzalez III, MD [address] [facility] [place], [place] [address] BIOPSY MUSCLE DEEP 4 8:30 AM EST Scheduled [facility] [address] [facility] [place] [id number] Nurse [place] Follow Up Phone Call Neurosurg [address] [facility] [place], [place] [address] 4 9:30 AM EST Office Visit Cardiology, [facility] [address] [place] [address] Nannette Gonzales CRNP [address] [place] [address] 4 11:30 AM EST Telemedicine Cardiovascular Genetics, [facility] [place] [address] Kayla Larson, MS [address] [place] [address] 4 10:30 AM EST Office Visit Cardiology, [facility] 132 [facility] [place] [address] Rick Tan, DO 132 [facility] [place] [address] 4 3:00 PM EST Office Visit Neurology [facility] [address] [facility] [place] [address] Carlos Jiménez, DO [address] [facility] [place] [address] 5 3:20 PM EDT Office Visit Pulmonary Medicine, [facility] 132 [facility] [place] [address] Kumar Noyola MD [address] [place] [address] Scheduled Procedures Name Priority Associated Diagnoses Date/Ti [...] filedocumented as of this encounter Care Teams Data Conversion Operator Relationship Specialty Start Date End Date Debbie Arango MD [address] [facility] [place] [address] PCP - General Internal Medicine 03/04/23 documented as of this encounter
--- OUTSIDE RECORDS SUMMARY | 2024-10-16 13:18 | External Medical Summary | Summary of Care ---
Author Name Unknown Organization [facility] Address [address] [place] [address] Phone [phone] Care Team Providers Care Territory Sales Representative Name Role Phone Debbie Arango MD Primary Care Provider Encounter Details Date Type Department Care Team (Late st Contact Info) Description 08/03/2024 Telephone Gastroenterology, [facility] [address] [place] [address] Uli Caraballo MD [address] [place] [address] Allergies No known active allergiesdocumented as of this encounter (statuses as of 08/03/2024) Medications Medication Sig Dispensed Refills Start Date [...] as of this encounter (statuses as of 08/03/2024) Active Problems Problem Noted Date Diagnosed Date 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 Please call her back, Arelis Dinh [phone] ext [phone] Proc akhil'd for 08/[address] Caraballo documented in this encounter Plan of Treatment Upcoming Encounters Date Type Department Care Team (Latest Contact Info) Description 10/30/202 4 8:00 AM EDT Hospital Encounter OR [facility], Operating Room, [facility] - 4th Floor 400 [facility] [place], [place] [address] Uli Caraballo MD 132 [place] [address] 4 8:00 AM EDT - 4 9:31 [address] EDT Surgery [address] [facility], Operating Room, [facility] - 4th Floor 400 [facility] [place] [address] Uli Caraballo MD 132 [place] [address] ESOPHAGOGASTRODUODENOSCOPY (EGD), FLEXIBLE, TRANSORAL, DIAGNOSTIC 4 7:30 AM EST Hospital Encounter OR [facility], OPERATING ROOM [facility], [place] [address] [place] [phone] Pa Gonzalez III, MD [address] [facility] [place] [address] 4 7:30 AM EST - 4 9:31 AM EST Surgery OR [facility], OPERATING ROOM [facility] [address] [place] [address] Pa Gonzalez III, MD [address] [place] [address] BIOPSY MUSCLE DEEP 4 8:30 AM EST Scheduled Telephone Neurosurgery, [place] [address] [place] [id number] [place] Nurse Follow Up Phone Call Neurosurg [address] [facility] [place] [address] 4 9:30 AM EST Office Visit Cardiology, [facility] [address] [place] [address] Nannette Gonzales CRNP [address] [place] [address] 4 11:30 AM EST Telemedicine Cardiovascular Genetics, [facility] 132 [facility] [place] [address] Kayla Larson, [place] 132 [facility] [place] [address] 4 10:30 AM EST Office Visit Cardiology, [facility] 132 [facility] [place] [address] Rick Tan, DO 132 [facility] [place] [address] 4 3:00 PM EST Office Visit Neurology [facility] 200 [facility] [place] [address] Carlos Jiménez, DO [address] [facility] [place] [address] 5 3:20 PM EDT Office Visit Pulmonary Medicine, [facility] 132 [facility] [place] [address] Kumar Noyola MD [address] [place] [address] Scheduled Procedures Name Priority Associated Diagnoses Date/Ti [...] filedocumented as of this encounter Care Teams Territory Sales Representative Relationship Specialty Start Date End Date Debbie Arango MD [address] [facility] [place] [address] PCP - General Internal Medicine 03/04/23 documented as of this encounter
--- OUTSIDE RECORDS SUMMARY | 2024-10-16 13:18 | External Medical Summary | Summary of Care ---
Author Name Unknown Organization [facility] Address [address] [place] [address] Phone [phone] Care Team Providers Care Contact Lens Fitter Name Role Phone Debbie Arango MD Primary Care Provider Encounter Details Date Type Department Care Team (Late st Contact Info) Description 07/23/2024 Telephone OR [facility], Operating Room, [facility] - 4th Floor 400 [facility] [place] [address] Uli Caraballo MD [address] 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 Thanks. * Telephone Encounter - Vale Gordon, DEIDRE - 07/23/2024 4:[address] Laura Frankel is administrative resident Proc akhil'd for 08/18, pts son aware. * Telephone Encounter - Uli Caraballo MD - 07/23/2024 8:02 AM EDT Please schedule the patient for EGD with E-POEM with me at [facility] on 08/18. Please ask the patient who is his Odd Shoe Examiner so I can touch base with them. documented in this encounter Plan of Treatment Upcoming Encounters Date Type Department Care Team (Latest Contact Info) Description 8:47 AM EDT Hospital Encounter OR [facility], Operating Room, [facility] - 4th Floor [address] [place] [address] Uli Caraballo MD [address] [place] [address] 4 8:47 AM EDT - 4 10:18 AM EDT Surgery OR [facility], Operating Room, [facility] - 4th Floor [address] [place] [address] Uli Caraballo MD [address] [place] [address] ESOPHAGOGASTRODUODENOSCOPY (EGD), FLEXIBLE, TRANSORAL, DIAGNOSTIC 4 9:30 AM EST Office Visit Cardiology, [facility] [address] [place] [address] Nannette Gonzales CRNP [address] [place] [address] 4 11:30 AM EST Telemedicine Cardiovascular Genetics, [facility] [address] [place] [address] Kayla Larson, [place] [address] [place] [address] 4 10:30 AM EST Office Visit Cardiology, [facility] 132 [facility] [place] [address] Rick Tan, DO [address] [place] [address] 4 3:00 PM EST Office Visit Neurology [facility] [address] [place] [address] Carlos Jiménez, DO [address] [place] [address] 5 3:20 PM EDT Office Visit Pulmonary Medicine, [facility] [address] [place] [address] Kumar Noyola MD [address] [place] [address] Scheduled Procedures Name Priority Associated Diagnoses Date/Ti me ESOPHAGOGASTRODUODENOSCOPY ( EGD), FLEXIBLE, TRANSORAL, DIAGNOSTIC Achalasia 08/18/2024 8:47 AM EDT LOWER ESOPHAGEAL MYOTOMY, TR ANSORAL (IE, PERORAL ENDOSCOPIC MYOTOMY [POEM]) Achalasia 08/18/2024 8:47 AM EDT Health Maintenance Due Date Last [...] filedocumented as of this encounter Care Teams Contact Lens Fitter Relationship Specialty Start Date End Date Debbie Arango MD [address] [facility] [place] [address] PCP - General Internal Medicine 03/04/23 documented as of this encounter
--- OUTSIDE RECORDS SUMMARY | 2024-10-16 13:18 | External Medical Summary | Summary of Care ---
Author Name Unknown Organization [facility] Address [address] [place] [address] Phone [phone] Care Team Providers Care General Maintenance Technician Name Role Phone Debbie Arango MD Primary Care Provider Reason for Visit * Reason Onset Date Comments Advice 07/15/2024 Milagro Encounter Details Date Type Department Care Team (Late st Contact Info) Description 07/15/2024 Telephone Cardiology, [place] 400 [facility] [place] [address] Rosalba Humphrey, [facility] [address] Advice (Milagro) Allergies No [...] encounter Miscellaneous Notes * Telephone Encounter - Tasia Chaudhari LPN - 07/15/2024 2:41 PM EDT Returned call to casandra, no answer left generic message on machine. The answer to her question is in this encounter under Maria Guadalupe Pederson PA-C note. Upon return call please give pt information. * Telephone Encounter - Carolee Morgan OSA - 07/15/2024 2:19 PM EDT Person calling: Dyana Samson Relationship to patient: x- Phone/Fax to return call: [phone] Reason for call(brief): holding warfarin for procedure Pharmacy: -- Provider Name: Milagro Detailed message to office: Having a endoflip procedure on 07/20/24 at [facility] with gastroenterology. Pre-op nurse wants to hold [...] we do not manage his PT/INR through [facility] -so instructions need to come from the [...] Pharmacist at [place] Phone/Fax to return call: [phone] x [phone] Reason for call(brief): Medications/warfarin Pharmacy: [place] Provider Name:Milagro Detailed message to office:Arelis calling asking to speak with office because pt was advised to holdwarfarin prior to upcoming procedure and looking into his chart she believes that would not work. Please call to advise. documented in this encounter Plan of Treatment Upcoming Encounters Date Type Department Care Team (Latest Contact Info) Description 4 9:45 AM EDT Hospital Encounter ENDO [facility], Endoscopy Suite, HFAM 1, [address] [place] [address] Jose Ramon Morgan MD [address] [place] [address] 4 9:45 AM EDT - 4 11:00 AM EDT Surgery ENDO [facility], Endoscopy Suite, HFAM 1, [address] [place] [address] Jose Ramon Morgan MD [address] [place] [address] ESOPHAGOGASTRODUODENOSCOPY (EGD), FLEXIBLE, TRANSORAL, DIAGNOSTIC 4 9:30 AM EST Office Visit Cardiology, [facility] 132 [facility] [place] [address] Nannette Gonzales CRNP 400 [facility] [place] [address] 4 11:30 AM EST Telemedicine Cardiovascular Genetics, [facility] [place] [address] Kayla Larson, MS [address] [place] [address] 4 10:30 AM EST Office Visit Cardiology, [facility] 132 [facility] [place] [address] Rick Tan, DO 132 [facility] [place] [address] 4 3:00 PM EST Office Visit Neurology [facility] [address] [place] [address] Carlos Jiménez, DO [address] [place] [address] 5 3:20 PM EDT Office Visit Pulmonary Medicine, [facility] [place] [address] Kumar Noyola MD [address] [place] [phone] Scheduled Procedures Name Priority Associated Diagnoses Date/Ti [...] filedocumented as of this encounter Care Teams General Maintenance Technician Relationship Specialty Start Date End Date Debbie Arango MD 2907 [facility] [place] [address] PCP - General Internal Medicine 03/04/23 documented as of this encounter
--- OUTSIDE RECORDS SUMMARY | 2024-10-16 13:18 | External Medical Summary | Summary of Care ---
Author Name Unknown Organization [facility] Address [address] [place] [address] Phone [phone] Care Team Providers Care Oil And Gas Principal Name Role Phone Debbie Arango MD Primary Care Provider Encounter Details Date Type Department Care Team (Late st Contact Info) Description 07/23/2024 Telephone Neurosurgery, [place] [address] [place], [place] [id number] Services, [facility] [address] [place] [address] Allergies No known active allergiesdocumented as of [...] scheduled for 08/24/24 Thank you, Ricco OR Radio Repairman Senior Neurosurgery [phone] * Telephone Encounter - Maribel Murphy OSA - 07/23/2024 5:13 PM EDT Pt's called and wanted to know if pt can have quadriceps muscle biopsy around the time of 08/18 being that he has to be off Warfarin for 2 weeks after 08/18 procedure for gastro as well. Please assist. [phone] Thank you documented in this encounter Plan of Treatment Upcoming Encounters Date Type Department Care Team (Latest Contact Info) Description 4 8:00 AM EDT Hospital Encounter OR [facility], Operating Room, [facility] - 4th Floor 400 [facility] [place] [address] Uli Caraballo MD [address] [place] [address] 4 8:00 AM EDT - 4 9:31 AM EDT Surgery OR [facility], Operating Room, [facility] - 4th Floor 400 [facility] [place] [address] Uli Caraballo MD [address] [place] [address] ESOPHAGOGASTRODUODENOSCOPY (EGD), FLEXIBLE, TRANSORAL, DIAGNOSTIC 4 7:30 AM EST Hospital Encounter OR [facility], OPERATING ROOM [facility] [address] [place] [address] Pa Gonzalez III, MD [address] [place], [place] [id number] 4 7:30 AM EST - 4 9:31 AM EST Surgery OR [facility], OPERATING ROOM [facility] [address] [place] [facility] [place] [address] Pa Gonzalez III, MD [address] [facility] [place], [place] [phone] BIOPSY MUSCLE DEEP 4 8:30 AM EST [facility]uled [facility] [address] [facility] [place] [id number] Nurse [place] Follow Up Phone Call Neurosurg [address] [facility] [place], [place] [address] 4 9:30 AM EST Office Visit Cardiology, [facility] [address] [place] [address] Nannette Gonzales CRNP [address] [place] [address] 4 11:30 AM EST Telemedicine Cardiovascular Genetics, [facility] [place] [address] Kayla Larson, MS [address] [place] [address] 4 10:30 AM EST Office Visit Cardiology, [facility] 132 [facility] [place] [address] Rick Tan, DO 132 [facility] [place] [address] 4 3:00 PM EST Office Visit Neurology [facility] 200 [facility] [place] [address] Carlos Jiménez, DO 200 [facility] [place] [address] 5 3:20 PM EDT Office Visit Pulmonary Medicine, [facility] 132 [facility] [place] [address] Kumar Noyola MD [address] [place] [address] Scheduled Procedures Name Priority Associated Diagnoses Date/Ti [...] filedocumented as of this encounter Care Teams Oil And Gas Principal Relationship Specialty Start Date End Date Debbie Arango MD 2907 [facility] [place] [address] PCP - General Internal Medicine 03/04/23 documented as of this encounter
--- OUTSIDE RECORDS SUMMARY | 2024-10-16 13:18 | External Medical Summary | Summary of Care ---
Author Name Unknown Organization [facility] Address [address] [place] [address] Phone [phone] Care Team Providers Care Access Developer Name Role Phone Debbie Arango MD Primary Care Provider Reason for Visit * Reason Onset Date Comments Advice 07/15/2024 Milagro Encounter Details Date Type Department Care Team (Late st Contact Info) Description 07/15/2024 Telephone Cardiology, [place] 400 [facility] [place] [address] Rosalba Humphrey, 400 [facility] [place] [address] Advice (Milagro) [...] Encounter - Tasia Chaudhari LPN - 07/15/2024 2:57 PM EDT Stephen returned call. Gave information in this encounter ok to hold coumadin from a cardiology. Reviewed rate control meds with stephen asked if pt is compliant (past issues with non compliance with medication) she states he is taking metoprolol and amiodarone as prescribed. Asked about s/s afib,she said that his heart rates are staying in normal range and he is not having any palpitations or other signs of afib. * Telephone Encounter - Tasia Chaudhari LPN - 07/15/2024 2:41 PM EDT Returned call to xwife, no answer left generic message on machine. The answer to her question is in this encounter under Maria Guadalupe Pederson PA-C note. Upon return call please give pt information. * Telephone Encounter - Carolee Morgan OSA - 07/15/2024 2:19 PM EDT Person calling: Dyana Samson Relationship to patient: x- Phone/Fax to return call: [phone] Reason for call(brief): holding warfarin for procedure Pharmacy: -- Provider Name: Milagro Detailed message to office: Having a endoflip procedure on 07/20/24 at [facility] with gastroenterology. Pre-op nurse wants [...] LPN - 07/15/2024 10:31 AM EDT Arelis Tripp from the [place] is who manages patient's Coumadin, she was just giving an update and clarifying. * Telephone Encounter - Maria Guadalupe Pederson PA-C - 07/15/2024 10:22 AM EDT Noted. Then likely just needs to hold coumadin, but again, we do not manage his PT/INR through [facility] -so instructions need to come from the [place] or the anticoagulation clinic who manages his medication * Telephone Encounter - Nigel West LPN - 07/15/2024 10:07 AM EDT Returned call. Addressed questions. Informed of Maria Guadalupe's message. FYI: Arelis Tripp from [place] stated patient can not be bridged due to being on dialysis and Lovenox being contraindicated. Recent VQ scan show low probability of PE. * Telephone Encounter - Moy Ojeda OSA - 07/15/2024 9:55 AM EDT Person calling: Radha Relationship to patient: Pharmacist at [place] Phone/Fax to return call: [phone] Reason for call(brief): Medications/warfarin Pharmacy: [place] Provider Name:Milagro Detailed message to office:Arelis calling [...] [facility], Endoscopy Suite, HFAM 1, [address] [place] [address] Jose Ramon Morgan MD [address] [place], [place] [phone] 9:45 AM EDT - 11:00 AM EDT Surgery ENDO [facility], Endoscopy Suite, HFAM 1, [address] [place] [address] Jose Ramon Morgan MD [address] [place] [facility] [place] [address] ESOPHAGOGASTRODUODENOSCOPY (EGD), FLEXIBLE, TRANSORAL, DIAGNOSTIC 4 9:30 AM EST Office Visit Cardiology, [facility] 132 [facility], [place] [address] Nannette Gonzales CRNP [address] [place], [place] [address] [address] 4 11:30 AM EST Telemedicine Cardiovascular Genetics, [facility] 132 [facility] [place] [address] Kayla Larson, MS 132 [place] [address] 4 10:30 AM EST Office Visit Cardiology, [facility] 132 [facility] [place] [address] Rick Tan, DO 132 [place] [address] 4 3:00 PM EST Office Visit Neurology [facility] 200 [facility] [place], [place] [address] Carlos Jiménez, DO 200 [facility] [place] [address] 5 3:20 PM EDT Office Visit Pulmonary Medicine, [facility] 132 [facility] [place], [place] [address] Kumar Noyola MD [address] [place] [phone] Scheduled Procedures Name Priority Associated Diagnoses Date/Ti wi ESOPHAGOGASTRODUODENOSCOPY ( EGD), FLEXIBLE, TRANSORAL, DIAGNOSTIC Dysphagia, [...] filedocumented as of this encounter Care Teams Access Developer Relationship Specialty Start Date End Date Debbie Arango MD 2907 [facility] [place] [address] PCP - General Internal Medicine 03/04/23 documented as of this encounter
--- OUTSIDE RECORDS SUMMARY | 2024-10-16 13:18 | External Medical Summary | Summary of Care ---
Author Name Unknown Organization [facility] Address [address] [place] [address] Phone [phone] Care Team Providers Care Sewing Machine Adjuster Name Role Phone Debbie Arango MD Primary Care Provider Encounter Details Date Type Department Care Team (Late st Contact Info) Description 07/23/2024 Telephone OR [facility], Operating Room, [facility] - 4th Floor 400 [facility] [place] [address] Uli Caraballo MD 132 [address] [facility] [address] Allergies No known active allergiesdocumented as of this encounter (statuses as of 07/23/2024) Medications Medication Sig Dispensed Refills Start Date [...] as of this encounter (statuses as of 07/23/2024) Active Problems Problem Noted Date Diagnosed Date 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 Paroxysmal atrial flutter 06/28/2024 Hypertrophic cardiomyopathy 06/28/2024 CKD (chronic kidney disease) stage 5, GFR less than 15 ml/min 05/21/2023 Peripheral vascular disease with claudication HTN, goal below 130/80 05/21/2023 documented as of this encounter (statuses as of 07/23/2024) Social History Tobacco Use Types Packs/Day Years [...] for EGD with [facility]POEM with me at [facility] on 08/18. Please ask the patient who is his Pottery Striper so I can touch base with them. documented in this encounter Plan of Treatment Upcoming Encounters Date Type Department Care Team (Late st Contact Info) Description 09/07/2024 9:30 AM EST Office Visit Cardiology, [facility] 132 [facility] [place] [address] Nannette Gonzales CRNP [address] [place] [address] 09/15/2024 11:30 AM EST Telemedicine Cardiovascular Genetics, [facility] 132 [facility] [place] [address] Kayla Larson, MS [address] [place] [address] 09/20/2024 10:30 AM EST Office Visit Cardiology, [facility] 132 [facility] [place] [address] Rick Tan, DO 132 [facility] [place] [address] 09/21/2024 3:00 PM EST Office Visit Neurology [facility] 200 [facility] [place], [place] [address] Carlos Jiménez, DO 200 [facility] [place] [address] 07/11/2025 3:20 PM EDT Office Visit Pulmonary Medicine, [facility] 132 [facility] [place] [address] Kumar Noyola MD [address] [place] [address] Health Maintenance Due Date Last Done Comments [...] filedocumented as of this encounter Care Teams Sewing Machine Adjuster Relationship Specialty Start Date End Date Debbie Arango MD 2907 [facility] [place] [address] PCP - General Internal Medicine 03/04/23 documented as of this encounter
--- OUTSIDE RECORDS SUMMARY | 2024-10-16 13:18 | External Medical Summary | Summary of Care ---
Author Name Unknown Organization [facility] Address [address] [place] [address] Phone [phone] Care Team Providers Care Senior Microsoft Net Developer Name Role Phone Debbie Arango MD Primary Care Provider Reason for Visit * Reason Comments Other Muscle biopsy reques t * Evaluate & Treat - Unlimited Visits (Within 10 days (routine)) - Pending Review Specialty Diagnoses / Procedures Referred By Valarie stanley Referred To Contact Neurological Surgery Diagnoses [employer] (inclusion body myositis) Carlos Jiménez, DO [address] [place] [address] Referral ID Status Reason Start Date Expiration Date Visits Requested Visits Authorized [id number] Pending Review Specialty Services Required 07/05/[phone] Encounter Details Date Type Department Care Team (Late st Contact Info) Description 07/14/2024 2:00 PM EDT Telemedicine Neurosurgery, [place] [address] [place], [place] [phone] Pa Gonzalez III, MD [address] [place] [address] Myositis, unspecified myositis type, unspecified site* Allergies No known active allergiesdocumented as of [...] as of this encounter Progress Notes * Pa Gonzalez III, MD - 07/14/2024 2:21 PM EDT NSGY Attending consult CONSULT NOTE - Neurosurgery [facility], [facility] [address] Name: Monster Samson Date: 07/14/2024 Time: 2:21 PM Primary Care Provider: Debbie Arango MD Referring Provider: Carlos Jiménez DO PRESENTING PROBLEM: request for muscle biopsy by neurology HPI: Monster Samson is a 78 year old male who presents in clinic for a request for a muscle biopsy. 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 The patient is on coumadin for PE. A ROS was reviewed and are only positive for the above noted pertinent complaints. All medical/surgical/family/social histories were reviewed. PAST MEDICAL HISTORY: No past medical history on file. PAST SURGICAL HISTORY: Past Surgical History: Procedure Laterality Date BOTULINUMTOXIN A (DEREK), 1 UNIT, INJ. N/A 02/03/2024 INJECTION, ONABOTULINUMTOXIN A, 1 UNIT (BOTOX) performed by Salena العلي MD at OR [facility] EGD, FLEXIBLE, DIAGNOSTIC N/A 02/03/2024 mild desquamation lower esophagus/tortuous and mildly dilated esophagus/ESOPHAGOGASTRODUODENOSCOPY (EGD), FLEXIBLE, TRANSORAL, DIAGNOSTIC performed by Salena العلي MD at OR [facility] SOCIAL HISTORY: Social History Socioeconomic History Marital [...] Resource Strain: Not on file Food Insecurity: Not on file Transportation Needs: Not on file Social Connections: Unknown (04/06/2024) Social Connections How often do you feel lonely or isolated from those around you? (Adult - for ages 18 years and over): Not on file Housing Stability: Not on file FAMILY HISTORY: Family History Problem Relation Name Age of Onset Other (accidental overdose-) Mother Diabetes Father Current Outpatient Medications Medication Sig Dispense Refill Nutra/Shake Oral Liquid TAKE ONE BY MOUTH EVERY DAY TO SUPPLEMENT NUTRIENT INTAKE Renal Vitamin 0.8 MG Oral Tablet Take 1 Tablet by mouth in the morning. 90 Tablet 3 Gentamicin Sulfate 0.1 % External Cream Apply topically to affected area daily. Apply to exit site after treatment daily. 30 g 3 Warfarin Sodium 5 MG Oral Tablet (Coumadin) Take 1 Tablet by mouth in the morning. OR DIRECTED BY THE COUMADIN. Docusate Sodium 100 MG Oral Capsule (Colace) Take 1 Capsule by mouth in the morning. Pt takes this once daily . Vitamin D 50 MCG (2000 UT) Oral Capsule Take 2,000 Units by mouth in the morning. Midodrine HCl 2.5 MG Oral Tablet (Proamatine) Take 1 Tablet by mouth in the morning and 1 Tablet before bedtime. 180 Tablet 3 Metoprolol Succinate ER 25 MG Oral Tablet Extended Release 24 Hour (toPROL XL) Take 1 Tablet by mouth in the morning and 1 Tablet before bedtime. May take an additional 25 mg if experiencing recurrent episodes of atrial fibrillation.. 200 Tablet 3 Amiodarone HCl 200 MG Oral Tablet (Cordarone) Take 1 Tablet by mouth in the morning. 34 Tablet 11 Metoprolol Tartrate 25 MG Oral Tablet (Lopressor) Take 1 Tablet by mouth daily as needed (for rapidheart rates). 60 Tablet 5 Metoprolol Tartrate 25 MG Oral Tablet (Lopressor) Take 1 Tablet by mouth in the morning and 1 Tablet before bedtime. (Patient not taking: Reported on 07/13/2024) 12 Tablet 0 Current Facility-Administered Medications Medication Dose Route Frequency Provider Last Rate Last Admin Albuterol Sulfate (Proventil) (5 MG/ML) 0.5% *conc* inhalation solution 2.5 mg 2.5 mg Nebulizer PRN Albuterol Sulfate (Proventil) (2.5 MG/3ML) 0.083% inhalation solution 2.5 mg 2.5 mg Nebulizer PRN 2.5 mg at 07/06/24 0732 ALLERGIES: Review of patient's allergies indicates: No Known Allergies ROS: A ROS was reviewed and are only positive for the above noted pertinent complaints P E: No vitals via video Gen: Pt found sitting in chair; NAD Head: NC/AT Neck: active ROM; trachea midline Chest: Normal respiratory effort Psych: Pleasant and cooperative Neuro: AOx3 Cranial Nerves: Eyes open, face symmetrical, he could hear me IMAGES: NA PRE-OP ORDERS: There are no diagnoses linked to this encounter. 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 PLAN: I reviewed Dr. Jiménez's notes. He is requesting a quadriceps muscle biopsy. I reviewed with the patient and his son that I am like a energy conservation representative here. I do not decide why and I do not interpret theresults. I reviewed the technical details. We covered the risks including but not limited to: bleeding, infection, wound issue, lack of a diagnosis, hematoma, chronic pain amongst other things. He and his son wish to proceed. Will have my staff reach out and offer a date. He will need to sort out aplan for anticoagulation pause. All questions were answered. Thank you kindly for the opportunity to see him today. Pa Gonzalez III, MD, PhD Department of Neurosurgery 07/14/2024 2:21 PM documented in this encounter Plan of Treatment Upcoming Encounters Date Type Department Care Team (Latest Contact Info) Description 4 9:45 AM EDT Hospital Encounter [facility]O [facility], Endoscopy Suite, HFAM 1, [address] [place] [address] Jose Ramon Morgan MD [address] [place] [address] 4 9:45 AM EDT - 4 11:00 AM EDT Surgery ENDO [facility], Endoscopy Suite, HFAM 1, [address] [place] [address] Jose Ramon Morgan MD [address] [place] [address] ESOPHAGOGASTRODUODENOSCOPY (EGD), FLEXIBLE, TRANSORAL, DIAGNOSTIC 4 9:30 AM EST Office Visit Cardiology, [facility] 132 [place] [address] Nannette Gonzales CRNP [address] [place] [address] 4 11:30 AM EST Telemedicine Cardiovascular Genetics, [facility] 132 [place] [address] Kayla Larson, MS 132 [facility] [place] [address] 4 10:30 AM EST Office Visit Cardiology, [facility] 132 [place] [address] Rick Tan, DO 132 [facility] [place] [address] 4 3:00 PM EST Office Visit Neurology [facility] 200 [facility] [place] [address] Carlos Jiménez, DO 200 [facility] [place] [address] 5 3:20 PM EDT Office Visit Pulmonary Medicine, [facility] 132 [place] [address] Kumar Noyola MD [address] [place] [address] Scheduled Procedures Name Priority Associated Diagnoses Date/Ti nc ESOPHAGOGASTRODUODENOSCOPY ( EGD), FLEXIBLE, TRANSORAL, DIAGNOSTIC Dysphagia, unspecified type 07/20/2024 9:45 AM EDT Scheduled Referrals Name Type Priority Associated Diagnoses Order Schedule NEUROSURGERY ADULT REFERRAL OP Referral Within 10 days (routine) [employer] (inclusion body myositis) Ordered: 07/05/2024 Health Maintenance Due Date Last Done Comments [...] as of this encounter Visit Diagnoses Diagnosis Myositis, unspecified myositis type, unspecified site- Primary Dysphagia, unspecified type documented in this encounter Care Teams Senior Microsoft Net Developer Relationship Specialty [place] [address] [place] [address] [place] [address] PCP - General Internal Medicine 03/04/23 documented as of this encounter
--- OUTSIDE RECORDS SUMMARY | 2024-10-16 13:18 | External Medical Summary | Summary of Care ---
Author Name Unknown Organization [facility] Address [address] [place] [address] Phone [phone] Care Team Providers Care Java Developer Architect Name Role Phone Debbie Arango MD Primary Care Provider Reason for Visit * Reason Onset Date Comments Advice 07/15/2024 Milagro Encounter Details Date Type Department Care Team (Late st Contact Info) Description 07/15/2024 Telephone Cardiology, [place] [address] [facility] [place] [address] Rosalba Humphrey, [address] [...] to patient: x- Phone/Fax to return call: [phone] Reason for call(brief): holding warfarin for procedure Pharmacy: -- Provider Name: Milagro Detailed message to office: Having a endoflip procedure on 07/20/24 at [facility] with gastroenterology. Pre-op nurse wants to hold [...] 10:31 AM EDT Arelis Baum from the [facility] is who manages patient's Coumadin, she was just giving an update and clarifying. * Telephone Encounter - Maria Guadalupe Pederson PA-C - 07/15/2024 10:22 AM EDT Noted. Then likely just needs to hold coumadin, but again, we do not manage his PT/INR through [facility] -so instructions need to come from the [facility] or the anticoagulation clinic who manages his medication * Telephone Encounter - Nigel West LPN - 07/15/2024 10:07 AM EDT Returned call. Addressed questions. Informed of Maria Guadalupe's message. FYI: Arelis Baum from [facility] stated patient can not be bridged due to being on dialysis and Lovenox being contraindicated. Recent VQ scan show low probability of PE. * Telephone Encounter - Moy Ojeda OSA - 07/15/2024 9:55 AM EDT Person calling: Arelis baum Relationship to patient: Pharmacist at [facility] Phone/Fax to return call: [phone] x [phone] Reason for call(brief): Medications/warfarin Pharmacy: [facility] Provider Name:Milagro Detailed message to office:Arelis calling asking to speak with office because pt was advised to holdwarfarin prior to upcoming procedure and looking into his chart she believes that would not work. Please call to advise. documented in this encounter Plan of Treatment Upcoming Encounters Date Type Department Care Team (Latest Contact Info) Description 4 9:45 AM EDT Hospital Encounter [facility]O [facility], Endoscopy Suite, HFAM 1, [address] [place] [address] Jose Ramon Morgan MD [address] [place] [address] 4 9:45 AM EDT - 4 11:00 AM EDT Surgery ENDO [facility], Endoscopy Suite, HFAM 1, [address] [place] [address] Jose Ramon Morgan MD [address] [place] [address] ESOPHAGOGASTRODUODENOSCOPY (EGD), FLEXIBLE, TRANSORAL, DIAGNOSTIC 4 9:30 AM EST Office Visit Cardiology, [facility] [address] [facility] [address] Nannette Gonzales CRNP [address] [place] [address] 4 11:30 AM EST Telemedicine Cardiovascular Genetics, [facility] 132 [facility] [place] [address] Kayla Larson, MS 132 [facility] [place] [address] 4 10:30 AM EST Office Visit [facility], [facility] [address] Rick Tan, DO [address] [place] [address] 4 3:00 PM EST Office Visit Neurology [facility] [address] [place] [address] Carlos Jiménez, DO [address] [place] [address] 5 3:20 PM EDT Office Visit Pulmonary Medicine, [facility] [address] [place] [address] Kumar Noyola MD [address] [place] [address] Scheduled Procedures Name Priority Associated Diagnoses Date/Ti [...] filedocumented as of this encounter Care Teams Java Developer Architect Relationship Specialty Start Date End Date Debbie Arango MD [address] [place] [address] PCP - General Internal Medicine 03/04/23 documented as of this encounter
--- OUTSIDE RECORDS SUMMARY | 2024-10-16 13:18 | External Medical Summary | Summary of Care ---
Author Name Unknown Organization [facility] Address [address] [place] [address] Phone [phone] Care Team Providers Care Procurement Technician Name Role Phone Debbie Arango MD Primary Care Provider Encounter Details Date Type Department Care Team (Late st Contact Info) Description 07/23/2024 Telephone OR GL, Operating Room, [facility] - 4th Floor [facility] [address] Uli Caraballo MD [address] [facility] [address] Allergies No known active allergiesdocumented as of [...] 4:[address] Laura Frankel is overlocker Proc akhil'd for 08/18, pts son aware. * Telephone Encounter - Uli Caraballo MD - 07/23/2024 8:02 AM EDT Please schedule the patient for EGD with E-POEM with me at [facility] on 08/18. 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 documented in this encounter Plan of Treatment Upcoming Encounters Date Type Department Care Team (Latest Contact Info) Description 4 8:47 AM EDT Hospital Encounter OR [facility], Operating Room, [facility] - 4th Floor [address] [place] [address] Uli Caraballo MD [address] [place] [address] 4 8:47 AM EDT - 4 10:18 AM EDT Surgery OR [facility], Operating Room, [facility] - 4th Floor [address] [place] [address] Uli Caraballo MD [address] [place] [address] ESOPHAGOGASTRODUODENOSCOPY (EGD), FLEXIBLE, TRANSORAL, DIAGNOSTIC 4 9:30 AM EST Office Visit Cardiology, [facility] [address] [place] [address] Nannette Gonzales CRNP [address] [place] [address] 4 11:30 AM EST Telemedicine Cardiovascular Genetics, [facility] [address] [place] [address] Kayla Larson, MS [address] [place] [address] 4 10:30 AM EST Office Visit Cardiology, [facility] [address] [place] [address] Rick Tan, DO [address] [place] [address] 4 3:00 PM EST Office Visit Neurology [facility] [address] [place] [address] Carlos Jiménez, DO [address] [place] [address] 5 3:20 PM EDT Office Visit Pulmonary Medicine, [facility] [address] [place] [address] Kumar Noyola MD [address] [place] [address] Scheduled Procedures Name Priority Associated Diagnoses Date/Ti [...] filedocumented as of this encounter Care Teams Procurement Technician Relationship Specialty Start Date End Date Debbie Arango MD [address] [facility] [place] [address] PCP - General Internal Medicine 03/04/23 documented as of this encounter
--- OUTSIDE RECORDS SUMMARY | 2024-10-16 13:18 | External Medical Summary | Summary of Care ---
Author Name Unknown Organization [facility] Address [address] [place] [address] Phone [phone] Care Team Providers Care Human Resources Designate Name Role Phone Debbie Arango MD Primary Care Provider Reason for Visit * Auth/Cert Specialty Diagnoses / Procedures Referred By Valarie stanley Referred To Contact Diagnoses Dysphagia, unspecified type Dysphagia, unspecified type [R13.10] Procedures EGD, FLEXIBLE, DIAGNOSTIC ESOPHAGOGASTRODUODENOSCOPY (EGD), FLEXIBLE, TRANSORAL, DIAGNOSTIC Jose Ramon Morgan MD [address] [place] [address] [facility] [address] [place] [address] Referral ID Status Reason Start Date Expiration Date Visits Re quested Visits Authorized [id number] Encounter Details Date Type Department Care Team (Latest Contact Info) Description 07/20/2024 9:03 AM EDT - 07/20/2024 12:37 PM EDT Hospital Encounter ENDO [facility], Endoscopy Suite, HFAM 1, [address] [place] [address] Jose Ramon Morgan MD [address] [place] [address] Upper GI Endoscopy Discharge Disposition: Home - Self Care Allergies No known active allergiesdocumented as of this encounter (statuses as of 07/21/2024) Medications Medication Sig Dispensed Refills Start Date [...] Additional Information Patient not taking.Reported on 07/13/2024 documented as of this encounter (statuses as of 07/21/2024) Active Problems Problem Noted Date Diagnosed Date 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 Paroxysmal atrial flutter 06/28/2024 Hypertrophic cardiomyopathy 06/28/2024 CKD (chronic kidney disease) stage 5, GFR less than 15 ml/min 05/21/2023 Peripheral vascular disease with claudication HTN, goal below 130/80 05/21/2023 documented as of this encounter (statuses as of 07/21/2024) Social History Tobacco Use Types Packs/Day Years [...] Sign Reading Time Taken Comments Blood Pressure 104/65 07/20/2024 12:00 PM EDT Pulse 74 07/20/2024 12:00 PM EDT Temperature 36 C (96.8 F) 07/20/2024 10:55 AM EDT Respiratory Rate 14 07/20/2024 12:00 PM EDT Oxygen Saturation 98% 07/20/2024 12:00 PM EDT Inhaled Oxygen Concentration - - Weight 85.5 kg (188 lb 8 oz) 07/20/2024 9:31 AM EDT Height - - Body Mass Index 28.66 07/08/2024 10:17 AM EDT documented in this encounter H&P Notes * Andrew Gomez MD - 07/20/2024 9:24 AM EDT Endoscopy Pre-Procedure Assessment Name: Monster Samson Date: 07/20/2024 Time: 9:24 AM Procedure(s): Upper GI Endoscopy; with Indication(s) of endoflip and possible pneumatic dilation Endoscopy Pre-Procedure Assessment: Prior to the procedure, [...] Admission medications Medication Sig Last Dose Discont. Amiodarone HCl 200 MG Oral Tablet (Cordarone) Take 1 Tablet by mouth in the morning. Metoprolol Tartrate 25 MG Oral Tablet (Lopressor) Take 1 Tablet by mouth daily as needed (for rapidheart rates). Metoprolol Tartrate 25 MG Oral Tablet (Lopressor) Take 1 Tablet by mouth in the morning and 1 Tablet before bedtime. Patient not taking: Reported on 07/13/2024 Not Taking Metoprolol Succinate ER 25 MG Oral Tablet [...] morning. Pt takes this once daily . Warfarin Sodium 5 MG Oral Tablet (Coumadin) Take 1 Tablet by mouth in the morning. OR DIRECTED BY THE COUMADIN. Gentamicin Sulfate 0.1 % External Cream Apply topically to affected area daily. Apply to exit site after treatment daily. Renal Vitamin 0.8 MG Oral Tablet Take 1 Tablet by mouth in the morning. Nutra/Shake Oral Liquid TAKE ONE BY MOUTH EVERY DAY TO SUPPLEMENT NUTRIENT INTAKE Review of patient's allergies indicates: No Known Allergies There were no vitals taken for this visit. Physical Exam: Mental Status Examination: alert and oriented. Airway Examination: normal oropharyngeal airway and neck mobility. Respiratory Examination: clear to auscultation. CV Examination: normal. ASA Grade: III - A patient with severe systemic disease. Abdomen: negative This patient has undergone a preprocedural evaluation. A determination has been made to proceed with the planned procedure under [facility] procedural guidelines and the [facility] Non-Emergent, Elective Medical Services and Treatment Recommendations [...] anesthesia plan is to use general anesthesia. Andrew Gomez MD 07/20/2024 documented in this encounter Procedure Notes * Salena العلي MD - 07/20/2024 9:26 AM EDTAssociated Order(s): UPPER GI ENDOSCOPY [facility] Patient Name: Monster Samson Procedure Date: 07/20/2024 9:26 AM Date of : 1945 Admit Type: Outpatient Note Status: Finalized Date of : 1945 Admit Type: Outpatient Age: 78 Room: Endo - Room 9 Gender: Male Note Status: Finalized Procedure: Upper GI endoscopy Indications: Dysphagia, Abnormal cine-esophagram, Suspected achalasia Providers: Jose Ramon Morgan MD (Doctor), Andrew Gomez MD (Fellow), Ana Cm RN, Cierra Kinney, Tax Preparer Referring MD: Salena العلي MD, Debbie Arango Medicines: General Anesthesia Complications: No immediate complications. Procedure: Pre-Anesthesia Assessment: - Prior to the procedure, a History and Physical was performed, and patient medications and allergies were reviewed. The patient's tolerance of previous anesthesia was also reviewed. The risks and benefits of the procedure and the sedation options and risks were discussed with the patient. All questions were answered, and informed consent was obtained. Prior Anticoagulants: The patient has taken Coumadin (warfarin), last dose was 3 days prior to procedure. ASA Grade Assessment: III - A patient with severe systemic disease. After reviewing the risks and benefits, the patient was deemed in satisfactory condition to undergo the procedure. After obtaining informed consent, the endoscope was passed under direct vision. All instruments were visually inspected immediately before and after removal from the patient to ensure they are fully intact. Throughout the procedure, the patient's blood pressure, pulse, and oxygen saturations were monitored continuously. The [id number] Endoscope ([id number]) was introduced through the mouth, and advanced to the second part of duodenum. Findings & Specimens: Abnormal motility was noted in the esophagus. The cricopharyngeus was abnormal. There is spasticityof the esophageal body. The distal esophagus/lower esophageal sphincter is spastic, but gives up passage to the endoscope. Tertiary peristaltic waves are noted. The stomach was normal. The examined duodenum was normal. With the patient in the supine position, a 16 cm long 3 mm diameter functional lumen imaging probe (FLIP), with a volume-based barostat bag, was placed at the lower esophageal sphincter using endoscopic visualization for the diagnostic evaluation of achalasia. Saline was infused into the bag to a volume of 30 mL. Additional saline was infused to a volume of 40 mL, Additional saline was infused to a volume of 50 mL and Additional saline was infused to a volume of 60 mL. Following the intervention, repeat assessment was performed at the same site with a final volume of 60 mL. The catheter was deflated and withdrawn. ENDOFLIP PLANIMETRY: Balloon VolumeDiameterDistensibility 40 mL5.80.5 50 mL9.01.3 60 mL9.51.2 The endoflip numbers improved upon deflation. A TTS dilator was passed through the scope. Dilation with an 18-19-20 mm balloon dilator was performed to 20 mm in the lower third of the esophagus. No tear was observed. Impression: - Abnormal esophageal motility, consistent with achalasia III. - FLIP imaging performed, consistent with spastic achalasia (type III). Therefore, it was decided not to proceed with pneumatic dilation given less beneficial and may interfere with future POEM. - TTS balloon dilation performed in the lower third of the esophagus. Recommendation: - Return to referring physician as previously scheduled. - Discuss POEM (Gold standard for Achalasia III) vs Multi-level Botox injection (if patient is high risk for POEM) - Patient has a contact number available for emergencies. The signs and symptoms of potential delayed complications were discussed with the patient. Return to normal activities tomorrow. Written discharge instructions were provided to the patient. - Discharge patient to home. Jose Ramon Morgan MD 07/20/2024 12:17:23 PM This report has been signed electronically. Andrew Gomez MD 07/20/2024 10:56:51 AM documented in this encounter Nursing Notes * Zuhair Null RN - 07/20/2024 12:10 PM EDT Patient out of bed to chair with assist. Gait steady. No complaints at this time. Seen by anesthesia, may be discharged. * Zuhair Null RN - 07/20/2024 11:28 AM EDT Patient sitting up in stretcher. Patient offered drink, and is tolerating P.O. fluids well. Dr. Morgan at bedside to discuss procedure. Family at bedside. Per verbal order, the physician and/or designant examined the patient, prescribed and verified the charted medications and certify that he is recovered for safe discharge from Endoscopy. Cathy * Ana Cm RN - 07/20/2024 9:26 AM EDT Procedure being completed under general anesthesia. Please see anesthesia record for medications and vital signs. documented in this encounter Plan of Treatment Upcoming Encounters Date Type Department Care Team (Late st Contact Info) Description 09/07/2024 9:30 AM EST Office Visit Cardiology, [facility] [place] [address] Nannette Gonzales CRNP [address] [place] [address] 09/15/2024 11:30 AM EST Telemedicine Cardiovascular Genetics, [facility] [place] [address] Kayla Larson, MS [address] [place] [address] 09/20/2024 10:30 AM EST Office Visit Cardiology, [facility] 132 [facility] [place] [address] Rick Tan, DO 132 [facility] [place] [address] 09/21/2024 3:00 PM EST Office Visit Neurology [facility] [address] [facility] [place] [address] Carlos Jiménez, DO [address] [facility] [place] [address] 07/11/2025 3:20 PM EDT Office Visit Pulmonary Medicine, [facility] 132 [facility] [place] [address] Kumar Noyola MD [address] [place] [address] Health Maintenance Due Date Last Done Comments [...] Date/Time Associated Diagnosis Comments UPPER GI ENDOSCOPY 07/20/2024 9: 26 AM EDT documented in this encounter Results * UPPER GI ENDOSCOPY (07/20/2024 9:26 AM EDT) 07/20/2024 9:26 AM EDT Narrative Procedure Note Salena العلي MD - 07/20/2024 9:26 AM EDT [facility] Patient Name: Monster Samson Procedure Date: 07/20/2024 9:26 AM Date of : 1945 Admit Type: Outpatient Note Status:Finalized Date of : 1945 Admit Type: Outpatient Age: 78 Room: Endo - Room 9 Gender: Male Note Status: Finalized Procedure: Upper GI endoscopy Indications: Dysphagia, Abnormal cine-esophagram, Suspectedachalasia Providers: Jose Ramon Morgan MD (Doctor), Andrew Gomez MD (Fellow),Ana Cm RN, Cierra Kinney, Tax Preparer Referring MD: Salena العلي MD, Debbie Arango Medicines: General Anesthesia Complications: No immediate complications. Procedure: Pre-Anesthesia Assessment: - Prior to the procedure, a History and Physicalwas performed, and patient medications and allergies were reviewed. Thepatient's tolerance of previous anesthesia was also reviewed. The risks andbenefits of the procedure and the sedation options and risks were discussed with thepatient. All questions were answered, and informed consent was obtained. PriorAnticoagulants: The patient has taken Coumadin (warfarin), last dose was 3 daysprior to procedure. ASA Grade Assessment: III - A patient with severe systemicdisease. After reviewing the risks and benefits, the patient was deemed insatisfactory condition to undergo the procedure. After obtaining informed consent, the endoscope waspassed under direct vision. All instruments were visually inspected immediatelybefore and after removal from the patient to ensure they are fully intact. Throughout the procedure, the patient's bloodpressure, pulse, and oxygen saturations were monitored continuously. The [id number] ([id number]) was introduced through the mouth, and advanced to the second part ofduodenum. Findings & Specimens: Abnormal motility was noted in the esophagus. The cricopharyngeus wasabnormal. There is spasticity of the esophageal body. The distal esophagus/lower esophageal sphincteris spastic, but gives up passage to the endoscope. Tertiary peristaltic waves are noted. The stomach was normal. The examined duodenum was normal. With the patient in the supine position, a 16 cm long 3 mm diameterfunctional lumen imaging probe (FLIP), with a volume-based barostat bag, was placed at the loweresophageal sphincter using endoscopic visualization for the diagnostic evaluation of achalasia. Saline wasinfused into the bag to a volume of 30 mL. Additional saline was infused to a volume of 40 mL,Additional saline was infused to a volume of 50 mL and Additional saline was infused to a volume of 60 mL.Following the intervention, repeat assessment was performed at the same site with a final volume of 60mL. The catheter was deflated and withdrawn. ENDOFLIP PLANIMETRY: Balloon VolumeDiameterDistensibility 40 mL5.80.5 50 mL9.01.3 60 mL9.51.2 The endoflip numbers improved upon deflation. A TTS dilator was passed through the scope. Dilation with an 18-19-20mm balloon dilator was performed to 20 mm in the lower third of the esophagus. No tear was observed. Impression: - Abnormal esophageal motility, consistent withachalasia III. - FLIP imaging performed, consistent with spasticachalasia (type III). Therefore, it was decided not to proceed with pneumatic dilationgiven less beneficial and may interfere with future POEM. - TTS balloon dilation performed in the lower thirdof the esophagus. Recommendation: - Return to referring physician as previouslyscheduled. - Discuss POEM (Gold standard for Achalasia III) vsMulti-level Botox injection (if patient is high risk for POEM) - Patient has a contact number available foremergencies. The signs and symptoms of potential delayed complications were discussed withthe patient. Return to normal activities tomorrow. Written discharge instructionswere provided to the patient. - Discharge patient to home. Jose Ramon Morgan MD 07/20/2024 12:17:23 PM This report has been signed electronically. Andrew Gomez MD 07/20/2024 10:56:51 AM Salena العلي MD GASTRO UPPER documented in this encounter Administered Medications Inactive Administered Medications - up to 3 most recent administrations Medication Order MAR Action Action Date Dose Rate Site / NSS infusion Intravenous, at 25 mL/hr, CONTINUOUS, Starting on Fri07/20/24 at 1000, Until Fri07/20/24 at 1637 New Bag 07/20/2024 9:51 AM EDT oxygen GAS Inhalation, OXYGEN, First dose on Fri07/20/24 at 1000, Until Discontinued, Device/Managed by: Low Flow Device, Goal SPO2 (%): 91-95, Starting Device: Nasal Cannula, Initial Flow Rate (LPM): 2, Lowest Support: Nasal Cannula: Flow 0-6 LPM. Titrate up/down by 1 LPM., Higher Support: Non-Rebreather (NRB) Mask: Minimum of 10 LPM. Titrate to maintain bag inflation., Titration Interval: Q2 minutes and as needed., Notify Provider: For sudden DECREASE in resting SPO2 to less than 85% and when escalating delivery device., Wean patient off Oxygen when the oxygen saturation is greater than or equal to 93% Given 07/20/2024 10:01 AM EDT 10 L/min(Oxygen) documented in this encounter Active and Recently Administered Medications Times are shown in EDT. Scheduled Medication Order 07/18/2024 07/19/2024 07/20/2024 oxygen GAS Inhalation, OXYGEN, First dose on Fri07/20/24 at 1000, Until Discontinued, Device/Managed by: Low Flow Device, Goal SPO2 (%): 91-95, Starting Device: Nasal Cannula, Initial Flow Rate (LPM): 2, Lowest Support: Nasal Cannula: Flow 0-6 LPM. Titrate up/down by 1 LPM., Higher Support: Non-Rebreather (NRB) Mask: Minimum of 10 LPM. Titrate to maintain bag inflation., Titration Interval: Q2 minutes and as needed., Notify Provider: For sudden DECREASE in resting SPO2 to less than 85% and when escalating delivery device., Wean patient off Oxygen when the oxygen saturation is greater than or equal to 93% 1000 (Due)1001 (Give n - Provider: Amy Dykes CRNA) Continuous Medication Order 07/18/2024 07/19/2024 07/20/202410/21 NSS infusion Intravenous, at 25 mL/hr, CONTINUOUS, Starting on Fri07/20/24 at 1000, Until Fri07/20/24 at 1637 0951 (New Bag - Prov ider: Amy Dykes CRNA)1043 (Anes Intra-Op Fluid - Provider: Amy Dykes CRNA)1637 (Due: Stopped) documented in this encounter Care Teams Human Resources Designate Relationship Specialty Start Date End Date Debbie Arango MD [address] [facility] [place] [address] PCP - General Internal Medicine 03/04/23 documented as of this encounter
--- OUTSIDE RECORDS SUMMARY | 2024-10-16 13:18 | External Medical Summary | Summary of Care ---
Author Name Unknown Organization [facility] Address [address] [place] [address] Phone [phone] Care Team Providers Care Consulting Database Administrator Name Role Phone Debbie Arango MD Primary Care Provider Reason for Visit * Reason Comments Pulmonary Function Test PFT with broncho dilator Oxygen Assessment 6 minute walk * Evaluate & Treat - Unlimited Visits (Within 30 days (routine)) - Authorized Specialty Diagnoses / Procedures Referred By Valarie stanley Referred To Contact Pulmonary Diagnoses Dyspnea, unspecified Procedures Eval and treat Deirdre Sauceda CRNP [address] [place] [address] Referral ID Status Reason Start Date Expiration Date Visits Requested Visits Authorized [id number] Authorized Specialty Services Required 05/10/2024 11/27/2024 [id number] Encounter Details Date Type Department Care Team (Latest Contact Info) Description 07/06/2024 7:30 AM EDT PulmDiagnostic Pulmonary Function Lab, [facility] [address] [facility] [place] [address] [place], Pft [address] [facility] [place] [address] Dyspnea and respiratory abnormalities*; Chronic cough Allergies No known active allergiesdocumented as of this encounter (statuses as of 07/06/2024) Medications Medication Sig Dispensed Refills Start Date End Date Status Nutra/Shake Oral LiquidIndications :CKD (chronic kidney disease) stage 5, GFR less than 15 ml/min (HCC) TAKE ONE BY MOUTH EVERY DAY TO SUPPLEMENT NUTRIENT INTAKE 03/20/2023 Active Renal Vitamin 0.8 MG Oral TabletIndications [...] Tablet before bedtime. 12 Tablet 07/02/2024 Active Metoprolol Tartrate 25 MG Oral Tablet (Lopressor) Take 1 Tablet by mouth once for 1 dose. 1 Tablet 07/02/2024 Discontinue d(Patient preference/ discontinua tion) Hospital, Clinic, or Other Facility Administered Medication [...] Smoking Tobacco: Former Cigars Smokeless Tobacco: Never Tobacco Cessation:Counseling Given: Not Answered Comments:3-4 Cigars per day Alcohol Use Standard [...] Sign Reading Time Taken Comments Blood Pressure 112/70 07/06/2024 8:25 AM EDT Pulse 76 07/06/2024 8:25 AM EDT Temperature - - Respiratory Rate 18 07/06/2024 8:25 AM EDT Oxygen Saturation 95% 07/06/2024 8:25 AM EDT Inhaled Oxygen Concentration - - Weight 84.8 kg (187 lb) 07/06/2024 8:25 AM EDT Height 172.7 cm (5' 8") 07/06/2024 8:25 AM EDT Body Mass Index 28.43 07/06/2024 8:25 AM EDT documented in this encounter Nursing Notes * Candice Amador RRT - 07/06/2024 8:28 AM EDT Monster Samson was identified by name, Date of : (1945), and . Vitals were obtained for testing. Body mass index is 28.43 kg/m. Pt has a 35 year cigar smoking history and quit 2 years ago. 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 Pt is on AMIODARONE. Spirometry, DLCO, RAW, and TGV performed. A slow volume nebulizer treatment of 0.5ml of albuterol in 3 ml of NSS was given. Theproper method of use, as well as anticipated side effects, of this svn are discussed and demonstrated to the patient. Patient demonstrates adequate delivery. Administrations This Visit Albuterol Sulfate (Proventil) (2.5 MG/3ML) 0.083% inhalation solution 2.5 mg Admin Date 07/06/2024 Action Given Dose 2.5 mg Route Nebulizer Documented By Candice Aamdor RRT 6 minute walk Exercise oximetry performed on room air x 6 minutes. Pt ambulated 450 feet/ 137 meters. 2 rest periods were required for 60 seconds. Lowest SPO2 on room air was 90%. documented in this encounter Plan of Treatment Upcoming Encounters Date Type Department Care Team (Latest Contact Info) Description 4 10:20 AM EDT Office Visit Pulmonary Medicine, [facility] [address] [facility] [place] [address] Kumar Noyola [facility] [address] [facility] [address] 4 2:00 PM EDT [facility] [address] [place], [place] [id number] Pa Gonzalez III, MD [address] [place], [place] [id number] 4 9:45 AM EDT Hospital Encounter [facility]O [facility], Endoscopy Suite, HFAM 1, [address] [place] [address] Jose Ramon Morgan MD [address] [place] [address] 4 9:45 AM EDT - 4 11:00 AM EDT Surgery ENDO [facility], Endoscopy Suite, HFAM 1, [address] [place] [address] Jose Ramon Morgan MD [address] [place], [place] [id number] ESOPHAGOGASTRODUODENOSCOPY (EGD), FLEXIBLE, TRANSORAL, DIAGNOSTIC 4 9:30 AM EST Office Visit Cardiology, [facility] [address] [facility] [place] [address] Nannette Gonzales CRNP [address] [facility] [place] [address] 4 11:30 AM EST Telemedicine Cardiovascular Genetics, [facility] [address] [facility] [place] [address] Kayla Larson, MS [address] [place] [address] 4 10:30 AM EST Office Visit Cardiology, [facility] [address] [place] [address] Rick Tan, DO [address] [place] [address] 4 3:00 PM EST Office Visit Neurology [facility] [place] [address] [place] [address] Carlos Jiménez, DO [address] [place] [address] Pending Results Name Type Priority Associated Diagnoses Date /Time SPIROMETRY B/A BRONCHODILATOR Procedures Routine Dyspnea and respiratory abnormalities Chronic cough 07/06/2024 7:37 AM EDT LUNG VOLUMES (PLETHYSMOGRAPHY) Procedures Routine Dyspnea and respiratory abnormalities Chronic cough 07/06/2024 7:37 AM EDT DIFFUSION CAPACITY (DLCO) Procedures Routine Dyspnea and respiratory abnormalities Chronic cough 07/06/2024 7:37 AM EDT Scheduled Procedures Name Priority Associated Diagnoses Date/Ti [...] Procedure Name Priority Date/Time Associated Diagnosis Comments DIFFUSION CAPACITY (DLCO) Routine 2023 7:37 AM EDT Dyspnea and respiratory abnormalities Chronic cough LUNG VOLUMES (PLETHYSMOGRAPHY) Routine 07/06/2024 7:37 AM EDT Dyspnea and respiratory abnormalities Chronic cough SPIROMETRY B/A BRONCHODILATOR Routine 07/06/2024 7:37 AM EDT Dyspnea and respiratory abnormalities Chronic cough documented in this encounter Visit Diagnoses Diagnosis Dyspnea and respiratory abnormalities- Primary Other dyspnea and respiratory abnormality Chronic cough Cough Dysphagia, unspecified type documented in this encounter Administered Medications Active Administered Medications - up to 3 most recent administrations Medication Order MAR Action Action Date Dose Rate Site Albuterol Sulfate (Proventil) (2.5 MG/3ML) 0.083% inhalation solution 2.5 mg 2.5 mg, Nebulizer, PRN Other, ONCE FOR PFT, Starting on Fri05/31/24 at 0946, Until Fri05/31/25 at 0945, For 365 days Given 07/06/2024 7:32 AM EDT 2.5 mg documented in this encounter Care Teams Consulting Database Administrator Relationship Specialty Start Date End Date Debbie Arango MD [address] [facility] [place] [address] PCP - General Internal Medicine 03/04/23 documented as of this encounter
--- OUTSIDE RECORDS SUMMARY | 2024-10-16 13:18 | External Medical Summary | Summary of Care ---
Author Name Unknown Organization [facility] Address [address] [place] [address] Phone [phone] Care Team Providers Care Guitar Teacher Name Role Phone Debbie Arango MD Primary Care Provider Reason for Referral * Evaluate & Treat - Unlimited Visits (Within 10 days (routine)) - Authorized Specialty Diagnoses / Procedures Referred By Contact Referred To Contact Cardiovascular Medicine / Cardiology Diagnoses Other heart failure (HCC) Deirdre Sauceda CRNP [address] [place] [address] Referral ID Status Reason Start Date Expiration Date Visits Requested Visits Authorized [id number] Authorized Specialty Services Required 07/14/2024 12/29/2024 999 [id number] Question Answer Referral Priority Within 10 days (routine) Where should this appointment be scheduled? [facility] To which of the following clinics are you referring your patient? Heart Failure Clinic Comments Notes posted. Encounter Details Date Type Department Care Team (Late st Contact Info) Description 07/14/2024 Orders Only Access Center, [address] *DO NOT REMOVE THIS DEPARTMENT* [place] [address] Request, External Referral Other heart failure (HCC)* Allergies No known active allergiesdocumented as [...] [facility], Endoscopy Suite, HFAM 1, [address] [place] [address] Jose Ramon Morgan MD [address] [place] [address] 4 9:45 AM EDT - 4 11:00 AM EDT Surgery ENDO [facility], Endoscopy Suite, HFAM 1, [address] [place] [address] Jose Ramon Morgan MD [address] [place] [address] ESOPHAGOGASTRODUODENOSCOPY (EGD), FLEXIBLE, TRANSORAL, DIAGNOSTIC 4 9:30 AM EST Office Visit Cardiology, [facility] [address] Nannette Gonzales CRNP [address] [place] [address] 4 11:30 AM EST Telemedicine Cardiovascular Genetics, [facility] [address] [employer] [place] [address] Kayla Larson, MS [facility] [place] [address] 4 10:30 AM EST Office Visit Cardiology, [facility] [address] [employer] [place] [address] Rick Tan DO [facility] [place] [address] 4 3:00 PM EST Office Visit Neurology [facility] [address] [place] [address] Carlos Jiménez, DO [address] [place] [address] 5 3:20 PM EDT Office Visit Pulmonary Medicine, [facility] [address] [place] [address] Kumar Noyola MD [address] [place] [id number] Scheduled Procedures Name Priority Associated Diagnoses Date/Ti me ESOPHAGOGASTRODUODENOSCOPY ( EGD), FLEXIBLE, TRANSORAL, DIAGNOSTIC Dysphagia, unspecified type 07/20/2024 9:45 AM EDT Scheduled Referrals Name Type Priority Associated Diagnoses Orde r Schedule CARDIOLOGY REFERRAL OP Referral Within 10 days (routine) Other heart failure (HCC) Ordered: 07/14/2024 Health Maintenance Due Date Last Done Comments [...] as of this encounter Visit Diagnoses Diagnosis Other heart failure (HCC)- Primary Dysphagia, unspecified type documented in this encounter Care Teams Guitar Teacher Relationship Specialty Start Date End Date Debbie Arango MD [address] [place] [address] PCP - General Internal Medicine 03/04/23 documented as of this encounter
--- OUTSIDE RECORDS SUMMARY | 2024-10-16 13:19 | External Medical Summary | Summary of Care ---
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 [facility] What condition is the patient being seen for? Other Has the patient had an MRI or CT with in the past year? Yes Comments [facility] - muscle biopsy w Dr. Gonzalez Reason for Visit * Reason Onset Date Comments Appointment 07/05/2024 Encounter Details Date Type Department Care Team (Late st Contact Info) Description 07/05/2024 Telephone Neurology [facility] [address] [place] [address] Carlos Jiménez DO [address] [place] [address] Appointment Allergies No known active allergiesdocumented as [...] encounter Miscellaneous Notes * Telephone Encounter - Gris Pearson LPN - 07/06/2024 1:18 PM EDT Spoke with Chava and gave address below for [place]. * Telephone Encounter - Kelsey Anderson OSA - 07/05/2024 4:02 PM EDT Neuroscience Phone Call Form- Requested Information from caller: Who is calling (not pt) name: chava relationship: ex Provider patient is established with: gladys What is the concern or issue they are having: reports the need biopsy office location to get [facility] approval How long has the issue been going on: n/a Any additional details to add: no Phone number for nurse to call back: [phone] Are forms needed? no Medication Refill? no Verify Pharmacy information is correct. Form to be used for established patients only (not new patients) Clinic has 24-48 hours to respond to caller. If caller is calling back before timeframe with any changes in condition/issues reported, update TEand re-route to appropriate pool If caller is calling back before timeframe- update TE- no need to re-route Ped Neurology Pool- [facility] Neuro Dental Practice Manager- [id number] (All messages get sent to the [facility]) Neurology Pool Numbers- [place] patients - follow normal process Ops req [facility] Neurology ([place])- [id number] Ops req [place] Neurology ([place]- [facility] clinics Only)- [id number] Neurosurgery Pool Numbers- [place] patients- follow normal process Ops req Neurosurgery [facility] ([place])- [id number] Ops req Neurosurgery [facility] ([place] Only) [id number] * Telephone Encounter - Carlos Jiménez DO - 07/05/2024 8:47 AM EDT I discussed the results of Monster as recent blood work with his son Dominic. 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 CK levels have been persistently elevated. He does have proximal weakness in his lower extremities which has progressed. 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 Will place a consult for a muscle biopsy of a quadriceps in the lower extremities. This will be helpful to evaluate for rimmed vacuoles to confirm the diagnosis. Patient is on Coumadin and is aware that this will need to be likely held. He has done this in the past. His son states this is not a problem. documented in this encounter Plan of Treatment Upcoming Encounters Date Type Department Care Team (Latest Contact Info) Description 4 10:20 AM EDT Office Visit Pulmonary Medicine, [facility] [address] [facility] [place] [address] Kumar Noyola MD [address] [place] [address] 4 2:00 PM EDT Telemedicine Neurosurgery, [place] [address] [place], [place] [id number] Lisa III, Pa Duke MD [address] [place] [address] 4 9:45 AM EDT Hospital Encounter ENDO [facility], Endoscopy Suite, HFAM 1, [address] [place] [address] Jose Ramon Morgan MD [address] [place] [address] 4 9:45 AM EDT - 4 11:00 AM EDT Surgery ENDO [facility], Endoscopy Suite, HFAM 1, [address] [place] [address] Jose Ramon Morgan MD [address] [place] [address] ESOPHAGOGASTRODUODENOSCOPY (EGD), FLEXIBLE, TRANSORAL, DIAGNOSTIC 4 9:30 AM EST Office Visit Cardiology, [facility] [address] [place] [address] Nannette Gonzales CRNP [address] [place], [place] [id number] 4 11:30 AM EST Telemedicine Cardiovascular Genetics, [facility] [address] [facility] [place] [address] Kayla Larson, MS [address] [place] [address] 4 10:30 AM EST Office Visit Cardiology, [facility] [address] [place] [address] Rick Tan, DO [address] [place] [address] 4 3:00 PM EST Office Visit Neurology [facility] [address] [place] [address] Carlos Jiménez, [address] [facility] [place] [address] Scheduled Procedures Name Priority Associated Diagnoses Date/Ti [...] (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
--- OUTSIDE RECORDS SUMMARY | 2024-10-16 13:19 | External Medical Summary | Summary of Care ---
Author Name Unknown Organization [facility] Address [address] [place] [address] Phone [phone] Care Team Providers Care Senior Sous Chef Name Role Phone Debbie Arango MD Primary Care Provider Reason for Visit * Reason Onset Date Comments Medication Adjustment 06/07/2024 Encounter Details Date Type Department Care Team (Late st Contact Info) Description 06/07/2024 Refill Cardiology, [facility] [address] [place] [address] Iván Chance O, DO [address] [place] [address] Paroxysmal atrial fibrillation (HCC) Allergies No known active allergiesdocumented as of this encounter (statuses as of 06/08/2024) Medications Medication Sig Dispensed Refills Start Date [...] atrial fibrillation.. 200 Tablet 3 06/08/2024 Active Metoprolol Succinate ER 25 MG Oral Tablet Extended Release 24 Hour (toPROL XL)Indications:Pa roxysmal atrial fibrillation (HCC) Take 0.5 Tablets by mouth in the morning. 45 Tablet 3 05/06/2024 4 Discontinue d(Refill) Hospital, Clinic, or Other Facility Administered Medication [...] as of this encounter (statuses as of 06/08/2024) Active Problems Problem Noted Date Diagnosed Date CKD (chronic kidney disease) stage 5, GFR less than 15 ml/min 05/21/2023 Peripheral vascular disease with claudication HTN, goal below 130/80 05/21/2023 documented as of this encounter (statuses as of 06/08/2024) Social History Tobacco Use Types Packs/Day Years [...] encounter Miscellaneous Notes * Telephone Encounter - Iván Chance DO - 06/08/2024 1:53 PM EDTSigned Prescriptions: Disp Refills Metoprolol Succinate ER 25 MG Oral Tablet *200 Ta*3 Sig: Take 1 Tablet by mouth in the morning and 1 Tablet before bedtime. May take an additional 25 mg if experiencing recurrent episodes of atrial fibrillation..Authorizing Provider: IVÁN CHANCE * Telephone Encounter - Nigel West LPN - 06/08/2024 1:43 PM EDT Called and informed Dyana of Dr. Chance's message. She verbalized understanding. Prescription pended. * Telephone Encounter - Iván Chance DO - 06/08/2024 1:36 PM EDT Increase Toprol-XL to 25 mg twice daily. Patient may take an additional 25 mg if he experiences recurrent episodes of atrial fibrillation. * Telephone Encounter - Debbie Coughlin CMA - 06/08/2024 1:09 PM EDT Dyana calling back with update on Monster. Extra dose of Metoprolol did stop afib last night. They are wondering if he should stay on the 25mg dose of Metoprolol twice a day instead of 12.5mg twice a day? She would also like to know what they should do if this happens again. Please advise. * Telephone Encounter - Iván Chance DO - 06/07/2024 7:03 PM EDT Contacted by patient's family member due to elevated HR and concerns regarding recurrent atrial fibrillation. Information obtained from patient's former , Dyana, reporting HR in 130's. Patient reporting chronic fatigue without CP or SOB. Patient took 12.5mg metoprolol earlier today. SBP 100 -110mmHg. Recommend additional 25mg toprol XL now. If patient becomes symptomatic he will proceed to ER. Instructed to contact office in AM with update. documented in this encounter Plan of Treatment Upcoming Encounters Date Type Department Care Team (Latest Contact Info) Description 2:30 PM EDT Office Visit Cardiology, [facility] [address] [facility] [place] [address] Maria Guadalupe Pederson, ROHINI [address] [place] [address] 4 1:25 PM EDT NeuroDiagnostic Study Neurophysiolog y [facility] [address] [place] [address] Carlos Jiménez, DO [address] [place] [address] 4 1:00 PM EDT Cardiac Studies Cardiac Studies, [facility] [place] [address] 4 10:45 AM EDT Office Visit Cardiology, [facility] [address] [facility] [place] [address] Rosalba Humphrey, DO [address] [facility] [place] [address] 4 7:30 AM EDT PulmDiagnostic Pulmonary Function Lab, [facility] [place] [address] [address], Pft [address] [facility] [place] [address] 4 8:00 AM EDT PulmDiagnostic Pulmonary Function Lab, [facility] [place] [address] [place], Pft [address] [facility] [place] [address] 4 10:20 AM EDT Office Visit Pulmonary Medicine, [facility] [address] [facility] [place] [address] Kumar Noyola MD [address] [place] [address] 4 9:45 AM EDT Hospital Encounter [facility], Endoscopy Suite, HFAM 1, [address] [place] [address] Jose Ramon Morgan MD [address] [place] [address] 4 9:45 AM EDT - 4 11:00 AM EDT Surgery [facility], Endoscopy Suite, HFAM 1, [address] [place] [address] Jose Ramon Morgan MD [address] [place] [address] ESOPHAGOGASTRODUODENOSCOPY (EGD), FLEXIBLE, TRANSORAL, DIAGNOSTIC 4 11:30 AM EST [facility] [address] [place] [address] Kayla Larson, MS [address] [place] [address] 4 3:00 PM EST Office Visit Neurology [facility] [address] [place] [address] Carlos Jiménez, DO [address] [place] [address] Scheduled Procedures Name Priority Associated Diagnoses Date/Ti me ESOPHAGOGASTRODUODENOSCOPY ( EGD), FLEXIBLE, TRANSORAL, DIAGNOSTIC Dysphagia, unspecified type 07/20/2024 9:45 AM EDT Health Maintenance Due Date Last Done Comments Depression Screening 1957 DTaP,Tdap,and Td Vaccines (1 - Tdap) 1965 COVID-19 Vaccine ( - 2022-2 4 season) 2023 Influenza Vaccine (FLU shot) (#1) 2024 Pneumococcal [...] Diagnosis Paroxysmal atrial fibrillation (HCC) Atrial fibrillation Dysphagia, unspecified type documented in this encounter Care Teams Senior Sous Chef Relationship Specialty Start Date End Date Debbie Arango MD [address] [facility] [place] [address] PCP - General Internal Medicine 03/04/23 documented as of this encounter
--- OUTSIDE RECORDS SUMMARY | 2024-10-16 13:19 | External Medical Summary ---
Author Name Unknown Address Unknown Organization K01:[facility] [place] - [address] [place] [address] Laboratory Report Ordering Provider Test Date Status ANDREEA KENYON 06/23/2024 14:12:00 Final Observation Date Value Abnormality Reference (Units ) Status Neutrophil cytoplasmic Ab [Presence] in Serum by Immunofluorescence 06/23/2024 14:12:00 Negative Negative Final Neutrophil cytoplasmic Ab [Presence] in Serum by Immunofluorescence 06/23/2024 14:12:00 Negative Negative Final Negative for ANCA. Performing Location [facility] [place] - [address] [place] [address]
--- OUTSIDE RECORDS SUMMARY | 2024-10-16 13:19 | External Medical Summary | Summary of Care ---
Author Name Unknown Organization [facility] Address [address] [place] [address] Phone [phone] Care Team Providers Care Hide Measuring Machine Operator Name Role Phone Debbie Arango MD Primary Care Provider Reason for Visit * Reason Comments EMG * Ancillary Services (Within 10 days (routine)) - Authorized Specialty Diagnoses / Procedures Referred By Contac t Referred To Contact Diagnoses Pain in unspecified lower leg Procedures EMG Lynn Griffin PA-C [address] [place] [address] Neurophysiology [facility] 200 [facility] [place] [address] Referral ID Status Reason Start Date Expiration Date Visits Requested Visits Authorized [id number] Authorized Ancillary Services Required 03/04/2023 11/27/2025 999 [id number] Encounter Details Date Type Department Care Team (Late st Contact Info) Description 06/23/2024 1:25 PM EDT NeuroDiagnostic Study Neurophysiology [facility] [place] 200 [facility] [place] [address] Carlos Jiménez DO 200 [facility] [place] [address] Arrived Allergies No known active allergiesdocumented as of this encounter (statuses as of 06/23/2024) Medications Medication Sig Dispensed Refills Start Date [...] before bedtime. 180 Tablet 3 05/06/2024 Active Additional Information Patient not taking.Reported on 06/15/2024 Metoprolol Succinate ER 25 MG Oral Tablet Extended Release 24 Hour (toPROL XL)Indications:Paro xysmal atrial fibrillation (HCC) Take 1 Tablet by mouth in the morning and 1 Tablet before bedtime. May take an additional 25 mg if experiencing recurrent episodes of atrial fibrillation.. 200 Tablet 3 06/08/2024 Active Hospital, Clinic, or Other Facility Administered [...] as of this encounter (statuses as of 06/23/2024) Active Problems Problem Noted Date Diagnosed Date CKD (chronic kidney disease) stage 5, GFR less than 15 ml/min 05/21/2023 Peripheral vascular disease with claudication HTN, goal below 130/80 05/21/2023 documented as of this encounter (statuses as of 06/23/2024) Social History Tobacco Use Types Packs/Day Years [...] as of this encounter Progress Notes * Carlos Jiménez DO - 06/23/2024 1:45 PM EDT [facility] Neurophysiology Laboratory Electromyography Report Name: Monster Samson Date of : 1945 (78 year old) Sex: male Tech: Elvin Moe Referring Physician: Carlos Jiménez DO Examining Physician: Carlos Jiménez DO Examination Date: 06/23/2024 Ht Readings from Last 1 Encounters: 05/31/24 1.727 m (5' 7.99") Wt Readings from Last 1 Encounters: 06/15/24 84.8 kg (187 lb) Impression: Abnormal study. This electrodiagnostic study is most consistent with a severe axonal length-dependent sensorimotor polyneuropathy with active denervation more prominent in distal muscles than in proximal muscles. The neuropathy has progressed since his previous study performed in March of 2023. History and Physical examination: A 78-year-old male with progressive weakness with known history of chronic kidney disease and chronic alcohol use. On examination he is no longer with the ambulate without assistance. EMG/NCS performed for evaluation of neuropathy. Nerve Conduction Studies Examination Findings: Nerve conduction studies were performed in the left upper and left lower extremity and in select nerves in the right lower extremity. The bilateral sural sensory nerve responses were absent. The radial sensory nerve study showed a normal peak latencies, reduced amplitude, and normal conduction velocity. The peroneal and tibial motor nerve responses were absent at the ankle. The peroneal motor nerve study while recording at the tibialis anterior muscle showed a normal distal latencies, reduced amplitude, and normal conduction velocity. The ulnar motor nerve study showed a normal distal latencies, normal amplitude, and normal conduction velocity. Please see the attached document for raw data or the scanned document in uVore. Unless otherwise noted, the temperature of the patient was monitored continuously and remained between 32 and 36 degrees centigrade during the performance of the nerve conduction studies. Reference values are from the [facility] normative data guidelines that are attached at the end ofthis document. Electromyography Examination Findings: Needle examination was performed with a disposable concentric needle electrode in selected muscles of the left upper and lower extremities, as recorded in the tables. Fibrillation potentials were seen in essentially all tested muscles in the left lower extremity. Chronic neurogenic changes were seen in essentially all tested muscles in the left upper and lower extremity. A few muscles demonstrated rapidly firing motor unit action potentials with early recruitment. Please see the attached document for raw data or the scanned document in EPIC. The study was done with a concentric needle examination. Carlos Jiménez DO documented in this encounter Plan of Treatment Upcoming Encounters Date Type Department Care Team (Latest Contact Info) Description 4 1:00 PM EDT Cardiac Studies Cardiac Studies, [facility] [address] [facility] [place] [address] 4 10:45 AM EDT Office Visit Cardiology, [facility] 132 [facility] [place], [place] [address] Rosalba Humphrey Imelda, DO [address] [place] [address] 4 7:30 AM EDT PulmDiagnostic Pulmonary Function Lab, [facility] 132 [facility] [place] [address] West, Pft 132 [facility] [place], [place] [address] 4 10:20 AM EDT Office Visit Pulmonary Medicine, [facility] 132 [facility] [place], [place] [address] Kumar Noyola MD [address] [facility] [address] 4 9:45 AM EDT Hospital Encounter ENDO [facility], Endoscopy Suite, HFAM [address], [address] [place] [address] Jose Ramon Morgan MD [address] [place] [address] 4 9:45 AM EDT - 4 11:00 AM EDT Surgery ENDO [facility], Endoscopy Suite, HFAM 1, [address] [place] [address] Jose Ramon Morgan MD [address] [place], [place] [id number] ESOPHAGOGASTRODUODENOSCOPY (EGD), FLEXIBLE, TRANSORAL, DIAGNOSTIC 4 11:30 AM EST Telemedicine Cardiovascular Genetics, [facility] 132 [facility] [place] [address] Kayla Larson, MS [address] [place] [address] 4 10:30 AM EST Office Visit Cardiology, [facility] [address] [place] [address] Rick Tan, DO [address] [place] [address] 4 3:00 PM EST Office Visit Neurology [facility] [place] [address] [place] [address] Carlos Jiménez, DO [address] [place] [address] Pending Results Name Type Priority Associated Diagnoses Date /Time ANCA REFLEX PANEL Lab Routine Axonal sensorimotor neuropathy 06/23/2024 2:12 PM EDT CYTOSOLIC 5'-NUCLEOTIDASE 1A (CN-1A) ANTIBODY (IGG) Lab Routine Axonal sensorimotor neuropathy 06/23/2024 2:12 PM EDT CK Lab Routine Axonal sensorimotor neuropathy 06/23/2024 2:12 PM EDT COPPER, SERUM OR PLASMA Lab Routine Axonal sensorimotor neuropathy 06/23/2024 2:12 PM EDT ANTINUCLEAR ANTIBODY (ROMAINE) EIA SCREEN WITH REFLEX AB QUANT Lab Routine Axonal sensorimotor neuropathy 06/23/2024 2:12 PM EDT SENSORIMOTOR NEUROPATHY PROFILE W/ RECOMBX(R)-COMP Lab Routine Axonal sensorimotor neuropathy 06/23/2024 2:12 PM EDT ANCA, IFA Lab Routine Axonal sensorimotor neuropathy 06/23/2024 2:12 PM EDT ANTINUCLEAR ANTIBODY (ROMAINE) SCREEN, CONY Lab Routine Axonal sensorimotor neuropathy 06/23/2024 2:12 PM EDT Scheduled Procedures Name Priority Associated Diagnoses Date/Ti me ESOPHAGOGASTRODUODENOSCOPY ( EGD), FLEXIBLE, TRANSORAL, DIAGNOSTIC Dysphagia, unspecified type 07/20/2024 9:45 AM EDT Health Maintenance Due Date Last Done Comments Depression Screening 1957 DTap/Tdap Vaccines (1 - Tdap) 1965 COVID-19 Vaccine (1 - 2023-2 4 season) 2024 Influenza Vaccine (FLU shot) (#1) [...] as of this encounter Visit Diagnoses Diagnosis Axonal sensorimotor neuropathy- Primary Acute infective polyneuritis Dysphagia, unspecified type documented in this encounter Care Teams Hide Measuring Machine Operator Relationship Specialty Start Date End Date Debbie Arango MD [address] [facility] [place] [address] PCP - General Internal Medicine 03/04/23 documented as of this encounter
--- OUTSIDE RECORDS SUMMARY | 2024-10-16 13:19 | External Medical Summary ---
Author Name Unknown Address Unknown Organization K01:[facility] [address] [address] Laboratory Report Ordering Provider Test Date Status ANDREEA KENYON 06/23/2024 14:12:00 Final Observation Date Value Abnormality Reference (Units ) Status Nuclear IgG Ab [Ratio] in Serum by Immunoassay 06/23/2024 14:12:00 Negative Negative Final DNA double strand Ab [Presence] in Serum 06/23/2024 14:12:00 Negative Negative Final DOUBLE STRANDED DNA VALUE - [facility] 06/23/2024 14:12:00 0.7 <20 (IU/mL) Final Extractable nuclear Ab [Presence] in Serum 06/23/2024 14:12:00 Negative Negative Final Nuclear IgG Ab [Ratio] in Serum by Immunoassay 06/23/2024 14:12:00 0.2 <0.7 (Ratio) Final Screening is based on detect ion of the following antibodies: dsDNA, U1-DEER FARMER (RNP70, A, C), SS-A/Ro, SS-B / La, Radha-1, Scl-70, Centromere B proteins and Sm proteins. In conjunction with clinical findings, this can aid in the diagnosis of systemic lupus erythematosous (SLE), mixed connective tissue disease (MCTD), Sjogren's syndrome, scleroderma and polymyositis/dermatomyositis.
However, a negative result does not rule out systemic rheumatic or other autoimmune disease. If clinically suspected, further evaluation and testing may be necessary. Please consult with Rheumatology Department.
Methodology: Fluorescent Enzyme Immunoassay. Performing Location LABORATORY [address] [facility] [address]
--- OUTSIDE RECORDS SUMMARY | 2024-10-16 13:19 | External Medical Summary | Summary of Care ---
Author Name Unknown Organization [facility] Address [address] [place] [address] Phone [phone] Care Team Providers Care Vocational Services Specialist Name Role Phone Debbie Arango MD Primary Care Provider Reason for Visit * Reason Comments Outpatient Testing Encounter Details Date Type Department Care Team (Late st Contact Info) Description 06/23/2024 2:10 PM EDT Laboratory Laboratory [facility] 200 [facility] [place] [address] [facility] 200 [place] [address] Axonal sensorimotor neuropathy Allergies No known active allergiesdocumented as of [...] 1:00 PM EDT Cardiac Studies Cardiac Studies, [facility] 132 [facility] [place] [address] 4 10:45 AM EDT Office Visit Cardiology, [facility] 132 [facility] [place] [address] Rosalba Humphrey, [address] [place] [address] 4 7:30 AM EDT PulmDiagnostic Pulmonary Function Lab, [facility] [address] [place] [address] West, [address] [place] [address] 4 10:20 AM EDT Office Visit Pulmonary Medicine, [facility] [address] [place] [address] Kumar Noyola MD [address] [place] [address] 4 9:45 AM EDT Hospital Encounter [facility], Endoscopy Suite, HFAM 1, [address] [place] [address] Jose Ramon Morgan MD [address] [place] [address] 4 9:45 AM EDT - 4 11:00 AM EDT Surgery [facility]O [facility], Endoscopy Suite, HFAM 1, [address] [place] [address] Jose Ramon Morgan MD [address] [place] [address] ESOPHAGOGASTRODUODENOSCOPY (EGD), FLEXIBLE, TRANSORAL, DIAGNOSTIC 4 11:30 AM EST [facility] [address] [facility] [place] [address] Kayla Larson, MS [address] [place] [address] 4 10:30 AM EST Office Visit Cardiology, [facility] [address] [facility] [place] [address] Rick Tan, DO [address] [place] [address] 4 3:00 PM EST Office Visit [facility] [address] [place] [address] Carlos Jiménez, [address] [place] [address] Scheduled Procedures Name Priority Associated Diagnoses Date/Ti me ESOPHAGOGASTRODUODENOSCOPY ( EGD), FLEXIBLE, TRANSORAL, DIAGNOSTIC Dysphagia, unspecified type 07/20/2024 9:45 AM EDT Health Maintenance Due Date Last Done Comments Depression Screening 1958 DTap/Tdap Vaccines (1 - Tdap) 1965 COVID-19 Vaccine ( - 2022-2 4 season) 2024 Influenza Vaccine (FLU shot) [...] this encounter Visit Diagnoses Diagnosis Axonal sensorimotor neuropathy Acute infective polyneuritis Dysphagia, unspecified type documented in this encounter Care Teams Vocational Services Specialist Relationship Specialty Start Date End Date Debbie Arango MD [address] [facility] [place] [address] PCP - General Internal Medicine 03/04/23 documented as of this encounter
--- OUTSIDE RECORDS SUMMARY | 2024-10-16 13:19 | External Medical Summary | Summary of Care ---
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 [facility] What condition is the patient being seen for? Other Has the patient had an MRI or CT with in the past year? Yes Comments IBM - muscle biopsy w Dr. Gonzalez Encounter Details Date Type Department Care Team (Late st Contact Info) Description 07/05/2024 Telephone Neurology [facility] [address] [place] [address] Carlos Jiménez DO 200 [facility] [place] [address] Allergies No known active allergiesdocumented as of this encounter (statuses as of 07/05/2024) Medications Medication Sig Dispensed Refills Start Date [...] as of this encounter (statuses as of 07/05/2024) Active Problems Problem Noted Date Diagnosed Date Paroxysmal atrial flutter 06/28/2024 Hypertrophic cardiomyopathy 06/28/2024 CKD (chronic kidney disease) stage 5, GFR less than 15 ml/min 05/21/2023 Peripheral vascular disease with claudication HTN, goal below 130/80 05/21/2023 documented as of this encounter (statuses as of 07/05/2024) Social History Tobacco Use Types Packs/Day Years [...] encounter Miscellaneous Notes * Telephone Encounter - Carlos Jiménez DO [...] Care Team (Latest Contact Info) Description 4 7:30 AM EDT PulmDiagnostic Pulmonary Function Lab, [facility] 132 [facility] [address] West, [address] 132 [facility] [place] [address] 4 10:20 AM EDT Office Visit Pulmonary Medicine, [facility] 132 [facility] [place] [address] Kumar Noyola MD [address] [place] [facility] [place] [address] 4 9:45 AM EDT Hospital Encounter [facility], Endoscopy Suite, HFAM 1, [address] [place] [address] Jose Ramon Morgan MD [address] [place], [place] [address] 4 9:45 AM EDT - 4 11:00 AM EDT Surgery ENDO [facility], Endoscopy Suite, HFAM 1, [address] [place], [place] [address] Jose Ramon Morgan MD [address] [place] [address] ESOPHAGOGASTRODUODENOSCOPY (EGD), FLEXIBLE, TRANSORAL, DIAGNOSTIC 4 9:30 AM EST Office Visit Cardiology, [facility] 132 [address] [facility] [place] [address] Nannette Gonzales CRNP [address] [place] [address] 4 11:30 AM EST [facility] [address] [facility] [place] [address] Kayla Larson, MS [address] [place] [address] 4 10:30 AM EST Office Visit Cardiology, [facility] [address] [facility] [place], [place] [address] Rick Tan, DO [address] [place] [address] 4 3:00 PM EST Office Visit Neurology [facility] [address] [place] [address] Carlos Jiménez, [address] [place] [address] Scheduled Procedures Name Priority Associated Diagnoses Date/Ti [...] type documented in this encounter Care Teams Shale Planer Operator Relationship Specialty Start Date End Date Debbie Arango MD [address] [facility] [place] [address] PCP - General Internal Medicine 03/04/23 documented as of this encounter
--- OUTSIDE RECORDS SUMMARY | 2024-10-16 13:19 | External Medical Summary ---
Author Name Unknown Address Unknown Organization : Laboratory Report Ordering Provider Test Date Status ANDREEA KENYON 06/23/2024 14:12:00 Final Observation Date Value Abnormality Reference (Units ) Status CN 1A AB (IGG) 06/23/2024 14:12:00 84 Above high norm al (Units) Final Reference Range:
<15: NEGATIVE
15-19: BORDERLINE
> OR = 20: POSITIVE
The cN-1A Ab assay is a useful aid for the
diagnosis of inclusion body myositis (IBM). The
analytical sensitivity of this assay is 35-70%,
based on published reports. In our internal
validation study with 120 healthy adult subjects,
1.7% had a positive cN-1A Ab result and 6.7% had
an equivocal result. However, published reports
and our own internal studies suggest that patients
with Sjogren's syndrome, systemic lupus
erythematosus, dermatomyositis (DM), or
polymyositis (PM), are significantly more likely
to have a positive cN-1A Ab result. In contrast,
patients presenting clinically with IBM rarely
produce autoantibodies associated with a diagnosis
of DM or PM. Therefore, cN-1A Ab results must be
interpreted in context with other details of the
patient's clinical evaluation.
This test was developed and its analytical
performance characteristics have been determined
by [facility]. It has not been cleared or
approved by FDA. This assay has been validated
pursuant to the CLIA regulations and is used for
clinical purposes.
Test performed by [facility]
[address],
[place] [address]

Health Insurance Adjuster: Deena Gloria MD,PHD,KATIE
Test Reported by [place],
[facility],
[address] [place], [place]
Sky Burger M.D., Ph.D., Director of Laboratories
, [facility] [id number] Performing Location
--- OUTSIDE RECORDS SUMMARY | 2024-10-16 13:19 | External Medical Summary | Summary of Care ---
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 no Medication Refill? no [...] no need to re-route Ped Neurology Pool- [facility] [place]- [id number] (All messages get sent to the [facility]) Neurology Pool Numbers- [place] and [place] patients - follow normal process Ops req [facility] Neurology ([place])- [id number] Ops req [place] Neurology ([place]fan [place]- [facility] and [facility] clinics Only)- [id number] Neurosurgery Pool Numbers- [place] patients- follow normal process Ops req Neurosurgery [facility] ([place])- [id number] Ops req Neurosurgery [facility] ([place] [place] Only) [id number] * Telephone Encounter - Carlos [...] 7:30 AM EDT PulmDiagnostic Pulmonary Function Lab, [facility] 132 [place] [address] West, [address] 132 [place] [address] 4 10:20 AM EDT Office Visit Pulmonary Medicine, [facility] 132 [place] [address] Kumar Noyola MD [address] [place] [address] 4 9:45 AM EDT Hospital Encounter ENDO [facility], Endoscopy Suite, HFAM 1, [address] [place] [address] Jose Ramon Morgan MD [address] [place] [address] 4 9:45 AM EDT - 4 11:00 AM EDT Surgery ENDO [facility], Endoscopy Suite, HFAM 1, [address] [place], [place] [address] Jose Ramon Morgan MD [address] [place], [place] [address] ESOPHAGOGASTRODUODENOSCOPY (EGD), FLEXIBLE, TRANSORAL, DIAGNOSTIC 4 1:00 PM EDT Office Visit Neurosurgery, [place] [address] [place] [address] Pa Gonzalez III, MD [address] [place] [address] 4 9:30 AM EST Office Visit Cardiology, [facility] 132 [place] [address] Nannette Gonzales CRNP [address] [place] [address] 4 11:30 AM EST Telemedicine Cardiovascular Genetics, [facility] 132 [facility] [place] [address] Kayla Larson, MS 132 [place] [address] 4 10:30 AM EST Office Visit Cardiology, [facility] 132 [place] [address] Rick Tan, DO 132 [place] [address] 4 3:00 PM EST Office Visit Neurology [facility] 200 [facility] [place], [place] [address] Carlos Jiménez, DO 200 [facility] [place] [address] Scheduled Procedures Name Priority Associated Diagnoses Date/Ti [...] type documented in this encounter Care Teams Emergency Veterinary Technician Relationship Specialty Start Date End Date Debbie Arango MD [address] [facility] [place] [address] PCP - General Internal Medicine 03/04/23 documented as of this encounter
--- OUTSIDE RECORDS SUMMARY | 2024-10-16 13:19 | External Medical Summary | Summary of Care ---
Author Name Unknown Organization [facility] Address [address] [place] [address] Phone [phone] Care Team Providers Care Psychology Instructor Name Role Phone Debbie Arango MD Primary Care Provider Encounter Details Date Type Department Care Team (Late st Contact Info) Description 03/17/2024 Telephone [address] [place] [address] Teena Galvan MD [address] [place] [address], [place] [address] Allergies No known active allergiesdocumented as of this encounter (statuses as of 06/16/2024) Medications Medication Sig Dispensed Refills Start Date [...] Units by mouth in the morning. Active Carvedilol 12.5 MG Oral Tablet (Coreg)Indicatio ns:CKD (chronic kidney disease) stage 5, GFR less than 15 ml/min (HCC) Take 1 Tablet by mouth in the morning and 1 Tablet before bedtime. 180 Tablet 3 09/08/2023 05/04/2024 Discontinue d(Patient preference/ discontinua tion) Potassium Chloride Rimma ER 10 MEQ Oral Tablet Extended Release Take 1 Tablet by mouth in the morning. 05/04/2024 Discontinue d(Patient preference/ discontinua tion) Amiodarone HCl 200 MG Oral Tablet (Pacerone) Take 1 Tablet by mouth in the morning. 10/19/2023 05/04/2024 Discontinue d(Patient preference/ discontinua tion) documented as of this encounter (statuses as of 06/16/2024) Active Problems Problem Noted Date Diagnosed Date CKD (chronic kidney disease) stage 5, GFR less than 15 ml/min 05/21/2023 Peripheral vascular disease with claudication HTN, goal below 130/80 05/21/2023 documented as of this encounter (statuses as of 06/16/2024) Social History Tobacco Use Types Packs/Day Years [...] Care Team (Latest Contact Info) Description 4 1:25 PM EDT NeuroDiagnostic Study Neurophysiolog y [facility] [place] [address] [place] [address] Carlos Jiménez, DO [address] [place] [address] 4 1:00 PM EDT Cardiac Studies Cardiac Studies, [facility] 132 [facility] [place] [address] 4 10:45 AM EDT Office Visit Cardiology, [facility] 132 [facility] [place] [address] Rosalba Humphrey, DO 400 [facility] [place] [address] 4 7:30 AM EDT PulmDiagnostic Pulmonary Function Lab, [facility] 132 [facility] [place] [address] [address], [address]ft 132 [facility] [place] [address] 4 10:20 AM EDT Office Visit Pulmonary Medicine, [facility] 132 [facility] [place] [address] Kumar Noyola MD [address] [place] [address] 4 9:45 AM EDT Hospital Encounter [facility] Endoscopy Suite, HFAM 1, [address] [place] [address] Jose Ramon Morgan MD [address] [place] [address] 4 9:45 AM EDT - 4 11:00 AM EDT Surgery [facility] Endoscopy Suite, HFAM 1, [address] [place] [address] Jose Ramon Morgan MD [address] [place] [address] ESOPHAGOGASTRODUODENOSCOPY (EGD), FLEXIBLE, TRANSORAL, DIAGNOSTIC 4 11:30 AM EST Telemedicine Cardiovascular Genetics, [facility] [address] [facility] [place] [address] Kayla Larson, MS [address] [place] [address] 4 10:30 AM EST Office Visit Cardiology, [facility] [address] [facility] [place] [address] Rick Tan, DO [address] [place] [address] 4 3:00 PM EST [facility] [address] [place] [address] Carlos Jiménez, DO [address] [place] [address] Scheduled Procedures Name Priority Associated Diagnoses Date/Ti [...] filedocumented as of this encounter Care Teams Psychology Instructor Relationship Specialty Start Date End Date Debbie Arango MD 290[address] [facility] [place] [address] PCP - General Internal Medicine 03/04/23 documented as of this encounter
--- OUTSIDE RECORDS SUMMARY | 2024-10-16 13:19 | External Medical Summary | Summary of Care ---
Author Name Unknown Organization [facility] Address [address] [place] [address] Phone [phone] Care Team Providers Care Paint Specialist Name Role Phone Debbie Arango MD Primary Care Provider Reason for Visit * Reason Comments Pulmonary Function Test PFT with broncho dilator Oxygen Assessment 6 minute walk * Evaluate & Treat - Unlimited Visits (Within 30 days (routine)) - Authorized Specialty Diagnoses / Procedures Referred By Valarie stanley Referred To Contact Pulmonary Diagnoses Dyspnea, unspecified Procedures Eval and treat Deirdre Sauceda CRNP [address] [place] [address] Referral ID Status Reason Start Date Expiration Date Visits Requested Visits Authorized [id number] Authorized Specialty Services Required 05/10/2024 11/27/2024 [id number] Encounter Details Date Type Department Care Team (Latest Contact Info) Description 07/06/2024 7:30 AM EDT PulmDiagnostic Pulmonary Function Lab, [facility] 132 [facility] [place] [address] [address], Pft 132 [facility] [place] [address] Dyspnea and respiratory abnormalities*; Chronic cough Allergies [...] quit 2 years ago. 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 Pt ambulated 450 feet/ 137 meters. No rest periods were required. Lowest SPO2 on room air was 90%. documented in this encounter Plan of Treatment Upcoming Encounters Date Type Department Care Team (Latest Contact Info) Description 10:20 AM EDT Office Visit Pulmonary Medicine, [address] [address] Kumar Noyola MD [address] [place] [address] 4 2:00 PM EDT [facility] [address] [place] [address] Pa Gonzalez III, MD [address] [place] [address] 4 9:45 AM EDT Hospital Encounter [facility], Endoscopy Suite, HFAM 1, [address] [place] [address] Jose Ramon Morgan MD [address] [place] [address] 4 9:45 AM EDT - 4 11:00 AM EDT Surgery [facility], Endoscopy Suite, HFAM 1, [address] [place] [address] Jose Ramon Morgan MD [address] [place] [address] ESOPHAGOGASTRODUODENOSCOPY (EGD), FLEXIBLE, TRANSORAL, DIAGNOSTIC 4 9:30 AM EST Office Visit Cardiology, [facility] [address] Nannette Gonzales, WALE [address] [place] [address] 4 11:30 AM EST Telemedicine Cardiovascular Genetics, [facility] 132 [facility] [place] [address] Kayla Larson, MS 132 [facility] [place] [address] 4 10:30 AM EST Office Visit Cardiology, [facility] [address] [place] [address] Rick Tan, DO [address] [place] [address] 4 3:00 PM EST Office Visit Neurology [facility] [address] [place] [address] Carlos Jiménez, DO [address] [place] [address] Pending Results Name Type Priority Associated Diagnoses [...] mg documented in this encounter Care Teams Paint Specialist Relationship Specialty Start Date End Date Debbie Arango MD [address] [facility] [place] [address] PCP - General Internal Medicine 03/04/23 documented as of this encounter
--- OUTSIDE RECORDS SUMMARY | 2024-10-16 13:19 | External Medical Summary | Summary of Care ---
Author Name Unknown Organization [facility] Address [address] [place] [address] Phone [phone] Care Team Providers Care Trauma Surgeon Name Role Phone Debbie Arango MD Primary Care Provider Reason for Visit * Reason Comments Pulmonary Function Test PFT with broncho dilator Oxygen Assessment 6 minute walk * Evaluate & Treat - Unlimited Visits (Within 30 days (routine)) - Authorized Specialty Diagnoses / Procedures Referred By Valarie stanley Referred To Contact Pulmonary Diagnoses Dyspnea, unspecified Procedures Eval and treat Deirdre Sauceda CRNP [address] [place] [address] Referral ID Status Reason Start Date Expiration Date Visits Requested Visits Authorized [id number] Authorized Specialty Services Required 05/10/2024 11/27/2024 [id number] Encounter Details Date Type Department Care Team (Latest Contact Info) Description 07/06/2024 7:30 AM EDT PulmDiagnostic Pulmonary Function Lab, [facility] 132 [facility] [place] [address] West, Pft 132 [facility] [place] [address] Dyspnea and respiratory abnormalities*; Chronic cough Allergies [...] quit 2 years ago. 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 [...] 10:20 AM EDT Office Visit Pulmonary Medicine, [address] [address] Kumar Noyola MD [address] [place] [address] 4 2:00 PM EDT [facility] [address] [place] [address] Pa Gonzalez III, MD [address] [place] [address] 4 9:45 AM EDT Hospital Encounter [facility] Endoscopy Suite, HFAM 1, [address] [place] [address] Jose Ramon Morgan MD [address] [place] [address] 4 9:45 AM EDT - 4 11:00 AM EDT Surgery [facility] Endoscopy Suite, HFAM 1, [address] [place] [address] Jose Ramon Morgan MD [address] [place] [address] ESOPHAGOGASTRODUODENOSCOPY (EGD), FLEXIBLE, TRANSORAL, DIAGNOSTIC 4 9:30 AM EST Office Visit Cardiology, [facility] [address] Nannette Gonzales, AWLE [address] [place] [address] 4 11:30 AM EST Telemedicine Cardiovascular Genetics, [facility] 132 [facility] [place] [address] Kayla Larson, MS 132 [facility] [place] [address] 4 10:30 AM EST Office Visit Cardiology, [facility] [address] [place] [address] Rick Tan, DO [address] [place] [address] 4 3:00 PM EST Office Visit Neurology [facility] [address] [place] [address] Carlos Jiménez, DO [address] [place] [address] Pending Results Name Type Priority Associated Diagnoses [...] mg documented in this encounter Care Teams Trauma Surgeon Relationship Specialty Start Date End Date Debbie Arango MD [address] [facility] [place] [address] PCP - General Internal Medicine 03/04/23 documented as of this encounter
--- OUTSIDE RECORDS SUMMARY | 2024-10-16 13:19 | External Medical Summary | Summary of Care ---
Author Name Unknown Organization [facility] Address [address] [place] [address] Phone [phone] Care Team Providers Care Jailer Chief Name Role Phone Debbie Arango MD Primary Care Provider Reason for Visit * Reason Comments Pulmonary Function Test PFT with broncho dilator Oxygen Assessment 6 minute walk * Evaluate & Treat - Unlimited Visits (Within 30 days (routine)) - Authorized Specialty Diagnoses / Procedures Referred By Valarie stanley Referred To Contact Pulmonary Diagnoses Dyspnea, unspecified Procedures Eval and treat Deirdre Sauceda CRNP [address] [place] [address] Referral ID Status Reason Start Date Expiration Date Visits Requested Visits Authorized [id number] Authorized Specialty Services Required 05/10/2024 11/27/2024 [id number] Encounter Details Date Type Department Care Team (Latest Contact Info) Description 07/06/2024 7:30 AM EDT PulmDiagnostic Pulmonary Function Lab, [facility] 132 [facility] [place] [address] [address], [address]ft 132 [facility] [place] [address] Dyspnea and respiratory abnormalities*; Chronic cough Allergies [...] quit 2 years ago. 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 [...] 10:20 AM EDT Office Visit Pulmonary Medicine, [facility] 132 [facility] [place] [address] Kumar Noyola MD [address] [facility] [address] 4 2:00 PM EDT [facility] [address] [place], [place] [id number] Pa Gonzalez III, MD [address] [place], [place] [address] 4 9:45 AM EDT Hospital Encounter [facility], Endoscopy Suite, HFAM 1, [address] [place] [address] Jose Ramon Morgan MD [address] [place] [address] 4 9:45 AM EDT - 4 11:00 AM EDT Surgery [facility], Endoscopy Suite, HFAM 1, [address] [place] [address] Jose Ramon Morgan MD [address] [place], [place] [id number] ESOPHAGOGASTRODUODENOSCOPY (EGD), FLEXIBLE, TRANSORAL, DIAGNOSTIC 4 9:30 AM EST Office Visit Cardiology, [facility] 132 [facility] [place] [address] Nannette Gonzales CRNP 400 [facility] [place] [address] 4 11:30 AM EST Telemedicine Cardiovascular Genetics, [facility] 132 [facility] [place] [address] Kayla Larson, MS [address] [place] [address] 4 10:30 AM EST Office Visit Cardiology, [facility] [address] [place] [address] Rick Tan, DO [address] [place] [address] 4 3:00 PM EST Office Visit Neurology [facility] [place] [address] [place] [address] Carlos Jiménez, DO [address] [place] [address] Pending Results Name Type Priority Associated Diagnoses [...] mg documented in this encounter Care Teams Jailer Chief Relationship Specialty Start Date End Date Debbie Arango MD 2907 [facility] [place] [address] PCP - General Internal Medicine 03/04/23 documented as of this encounter
--- OUTSIDE RECORDS SUMMARY | 2024-10-16 13:19 | External Medical Summary | Summary of Care ---
Author Name Unknown Organization [facility] Address [address] [place] [address] Phone [phone] Care Team Providers Care Physician Assistant Certified Name Role Phone Debbie Arango MD Primary Care Provider Reason for Visit * Reason Comments Outpatient Testing Encounter Details Date Type Department Care Team (Late st Contact Info) Description 06/23/2024 11:30 AM EDT Laboratory Laboratory [facility] 200 [facility] [place] [id number] [facility] 200 [place] [address] Arrived Allergies No known active allergiesdocumented as [...] 1:00 PM EDT Cardiac Studies Cardiac Studies, [facility] 132 [facility] [place] [address] 4 10:45 AM EDT Office Visit Cardiology, [facility] [address] [facility] [place] [address] Rosalba Humphrey, [address] [address] 4 7:30 AM EDT PulmDiagnostic Pulmonary Function Lab, [facility] [address] [place] [address] [address], [address] [place] [address] 4 10:20 AM EDT Office Visit Pulmonary Medicine, [facility] [address] [place] [address] Kumar Noyola MD [address] [place] [address] 4 9:45 AM EDT Hospital Encounter [facility], Endoscopy Suite, HFAM 1, [address] [place] [address] Jose Ramon Morgan MD [address] [place] [address] 4 9:45 AM EDT - 4 11:00 AM EDT Surgery [facility], Endoscopy Suite, HFAM 1, [address] [place] [address] Jose Ramon Morgan MD [address] [place] [address] ESOPHAGOGASTRODUODENOSCOPY (EGD), FLEXIBLE, TRANSORAL, DIAGNOSTIC 4 11:30 AM EST Telemedicine Cardiovascular Genetics, [facility] [address] [place] [address] Kayla Larson, MS [address] [place] [address] 4 10:30 AM EST Office Visit Cardiology, [facility] [address] [place] [address] Rick Tan, DO [address] [place] [address] 4 3:00 PM EST Office Visit Neurology [facility] Gi[place]anna [place] 200 [facility] [place] [address] Carlos Jiménez, DO 200 [facility] [place] [address] Scheduled Procedures Name Priority Associated Diagnoses Date/Ti [...] filedocumented as of this encounter Care Teams Physician Assistant Certified Relationship Specialty Start Date End Date Debbie Arango MD 2907 [facility] [place] [address] PCP - General Internal Medicine 03/04/23 documented as of this encounter
--- OUTSIDE RECORDS SUMMARY | 2024-10-16 13:19 | External Medical Summary ---
Author Name Unknown Address Unknown Organization : Laboratory Report Ordering Provider Test Date Status ANDREEA KENYON 06/23/2024 14:12:00 Final Observation Date Value Abnormality Reference (Units ) Status SENSORIMOTOR NEUROPATHY PROFILE W/ RECOMBX(R)-COMP 06/23/2024 14:12:00 SEE BELOW Final TESTS--------- ----RESULTS--------UNITS--REF. RANGE---
SUMMARY INTERPRETATION
NEGATIVE
This panel of tests did not identify any positive results.
INTERPRETIVE RESULTS TABLE

Inter pretive Result Table

TEST: anti-GALOP
METHODOLOGY: CONY
INTERPRETATION: Negative
TECHNICAL RESULT: 0
REFERENCE RANGE: Negative <10,000 Positive >=10,[address]: anti-GM1
METHODOLOGY: CONY
INTERPRETATION: Negative
TECHNICAL RESULT: <1:3,200
REFERENCE RANGE: Negative <=1:3200, Positive >1:3200

ANTONIA T: anti-asialo GM1
METHODOLOGY: CONY
INTERPRETATION: Negative
TECHNICAL RESULT: <1:6,400
REFERENCE RANGE: Negative <=1:6400, Positive >1:6400
--------
TEST: anti-GD1b
METHODOLOGY: CONY
INTERPRETATION: Negative
TECHNICAL RESULT: <1:6,400
REFERENCE RANGE: Negative <=1:6400, Positive >1:6400

ANTONIA T: anti-GD1a
METHODOLOGY: CONY
INTERPRETATION: Negative
TECHNICAL RESULT: <1:100
REFERENCE RANGE: Negative <1:100, Positive >=1:100

ANTONIA T: anti-Hu
METHODOLOGY: Nanoliter scale immunoassay
INTERPRETATION: Negative
TECHNICAL RESULT: <1:100
REFERENCE RANGE: Serum <1:100

TEST : anti-Sulfatide
METHODOLOGY: CONY
INTERPRETATION: Negative
TECHNICAL RESULT: anti-Sulfatide IgG <1:2,000;
anti-Sulfatide IgM <1:2,000
REFERENCE RANGE: Negative <1:2000, Borderline, Positive
>=1:2000
------
TEST: anti-SGPG
METHODOLOGY: CONY
INTERPRETATION: Negative
TECHNICAL RESULT: 1:3,200
REFERENCE RANGE: Negative <=1:3200, Positive >1:3200

ANTONIA T: anti-MAG
METHODOLOGY: CONY
INTERPRETATION: Negative
TECHNICAL RESULT: 1:1,600
REFERENCE RANGE: Negative <=1:1600, Positive >1:1600

---
COMMENTS
Comme nts: The likelihood that this individual's clinical
symptoms are associated with these antibodies has been
reduced. However, this test result does not rule out an
autoimmune etiology for the neurological symptoms associated
with peripheral neuropathy.
If the SGPG and/or MAG CONY is positive or inconclusive in
the context of a negative MAG Western blot the result is
considered negative.
Recommendations:
Health care providers, please contact the [facility]
Client Services Department at if you wish to
consult with a Graduate Teacher Education regarding this test
result.
Background information: The antibodies in this profile have
been associated with autoimmune peripheral neuropathies
including Guillain-Rives syndrome (GBS), distal acquired
demyelinating symmetric neuropathy (DADS).
Method: Detection of antibodies was performed by Enzyme
Linked Immunosorbent Assay (CONY) methodology, automated
nanoliter scale immunoassay, and western blot methodology.
Detection of GALOP autoantibodies was determined by the
evaluation of IgM antibodies to GSC (a physiologic
combination of GM1, sulfatide, and cholesterol), GGC (a
physiologic combination GM1, galactocerebroside and
cholesterol) and histone antigens individually. Elevated
levels of IgM antibodies to GSC are considered specific for
GALOP when the levels of GGC and histone antibodies fall
within the normal reference range. An elevated level of GSC
antibodies in the context of an elevated GGC, and/or histone
is considered polyreactive and may not represent a true
positive result for GALOP (denoted by an asterisk (*) in the
interpretive results table). Samples in the borderline range
for Sulfatide have an elevated level of anti- sulfatide
antibodies on the screen assay, but the level of antibodies
is below the positive cut off value.
Limitations of analysis: Although rare, false positive or
false negative results may occur in any of the methods used.
Specifically the western blot allows only for discriminating
between presence and absence of non-conformational
antibodies targeted against the antigen. Also, the variable
transfer rates and reagent effectiveness may affect the
signal intensity of the response; and affinity of
individuals' antibodies for any given antigen cannot be
measured using western blot methodology. All results should
be interpreted in the context of clinical findings, relevant
history, and other laboratory data.
Background References:
1. Jaxon T, et al. (2005) J Neurosci Res 80: 1-17. (PMID:
[id number])
2. Oswaldo K, et al. (2009) Glycobiology 19: 676-92. (PMID:
[id number])
3. Fiorella N, et al. (1999) J Neurol Sci 168: 121-6. (PMID:
[id number])
4. Yoshino, H, et al. (1992) Eur Neurol 32: 28-31. (PMID:
[id number])
5. Rodolfo S, et al. (1994) J Neurosci Res 38: 134-41.
(PMID: [id number])
6. Jj N, et al. (1980) N Engl J Med 303: 618-21. (PMID:
[id number])
7. NiermeigriseldarLAQUITA, et al. (2010) Neurology 74: 406-12.
(PMID: [id number])
This test was developed and its analytical performance
characteristics have been determined by [facility].
It has not been cleared or approved by the U.S. Food and
Drug Administration. This assay has been validated pursuant
to the CLIA regulations and is used for clinical purposes.
Laboratory oversight provided by Nicolasa España M.D.,
Ph.D., CLIA license jo, [facility] (CLIA#
[id number])
Testing performed at:
[facility] [address] [place] [address]
Test performed by [facility]
[address] [place] [address]
[address] [place] [address]
[place] [address]

Sample Shoe Inspector And Reworker: Nicolasa España M.D., Ph.D. Performing Location
--- OUTSIDE RECORDS SUMMARY | 2024-10-16 13:19 | External Medical Summary ---
Author Name Unknown Address Unknown Organization : Laboratory Report Ordering Provider Test Date Status ANDREEA KENYON 06/23/2024 14:12:00 Final Observation Date Value Abnormality Reference (Units ) Status Copper 06/23/2024 14:12:00 93 70-175 (mc g/dL) Final This test was developed and its analytical performance
characteristics have been determined by [facility] [place]. It has
not been cleared or approved by the U.S. Food and Drug
Administration. This assay has been validated pursuant
to the CLIA regulations and is used for clinical
purposes.

Test Performed at:
[facility]
[address] [facility]
[place] [address]
Sky Burger M.D., Ph.D.,Director of Laboratories Performing Location
--- OUTSIDE RECORDS SUMMARY | 2024-10-16 13:19 | External Medical Summary | Summary of Care ---
Author Name Unknown Organization [facility] Address [address] [place] [address] Phone [phone] Care Team Providers Care Antenna Installer Name Role Phone Debbie Arango MD Primary Care Provider Reason for Visit * Reason Onset Date Comments Fax 06/11/2024 Re: [place] test[place] Encounter Details Date Type Department Care Team (Late st Contact Info) Description 06/11/2024 Telephone Pulmonary Medicine, [facility] [address] [place] [address] Services, Scheduling [address] [place] [address] Fax (Re: noc ox testing/[place]) Allergies No known active allergiesdocumented as of this encounter (statuses as of 06/14/2024) Medications Medication Sig Dispensed Refills Start Date [...] as of this encounter (statuses as of 06/14/2024) Active Problems Problem Noted Date Diagnosed Date CKD (chronic kidney disease) stage 5, GFR less than 15 ml/min 05/21/2023 Peripheral vascular disease with claudication HTN, goal below 130/80 05/21/2023 documented as of this encounter (statuses as of 06/14/2024) Social History Tobacco Use Types Packs/Day Years [...] encounter Miscellaneous Notes * Telephone Encounter - Tawnya Carmona LPN - 06/14/2024 12:40 PM EDT Noc ox order, office note, [facility] [place] ([place]) providing our phone number if it's not received or if there are questions. * Telephone Encounter - Brandi Wong OSA - 06/11/2024 9:14 AM EDT [facility] calling in stating they received a referral for a Noc Ox and stated that with the [facility] it has [place] go through the [place] [facility] for it to be [place]. Please advise, Thank you! documented in this encounter Plan of Treatment Upcoming Encounters Date Type Department Care Team (Latest Contact Info) Description 2:30 PM EDT Office Visit Cardiology, [facility] 132 [facility] [place] [address] Maria Guadalupe Pederson PA-C 132 [facility] [place], [place] [address] 4 1:25 PM EDT NeuroDiagnostic Study Neurophysiolog y Scenery Giovanna [place] [address] [place] [address] Carlos Jiménez, DO [address] [place] [address] 4 1:00 PM EDT Cardiac Studies Cardiac Studies, [facility] 132 [facility] [place] [address] 4 10:45 AM EDT Office Visit Cardiology, [facility] 132 [facility] [place] [address] Rosalba Humphrey, DO [address] [place] [address] 4 7:30 AM EDT PulmDiagnostic Pulmonary Function Lab, [facility] 132 [facility] [place] [address] West, Pft [address] [facility] [address] 4 10:20 AM EDT Office Visit Pulmonary Medicine, [facility] [address] [facility] [place] [address] Kumar Noyola MD [address] [facility] [address] 4 9:45 AM EDT Hospital Encounter ENDO [facility], Endoscopy Suite, [facility] 1, [address], [place] [id number] Jose Ramon Morgan MD [address], [place] [address] 4 9:45 AM EDT - 4 11:00 AM EDT Surgery ENDO C, Endoscopy Suite, HFAM 1, [address] [place] [address] Jose Ramon Morgan MD [address] [place] [address] ESOPHAGOGASTRODUODENOSCOPY (EGD), FLEXIBLE, TRANSORAL, DIAGNOSTIC 4 11:30 AM EST Telemedicine Cardiovascular Genetics, [facility] [address] [facility] [place] [address] Kayla Larson, [place] [address] [facility] [place] [address] 4 3:00 PM EST Office Visit Neurology [facility] [address] [place] [address] Carlos Jiménez, DO [address] [place] [address] Scheduled Procedures Name Priority Associated Diagnoses Date/Ti [...] filedocumented as of this encounter Care Teams Antenna Installer Relationship Specialty Start Date End Date Debbie Arango MD [address] [facility] [place] [address] PCP - General Internal Medicine 03/04/23 documented as of this encounter
--- OUTSIDE RECORDS SUMMARY | 2024-10-16 13:19 | External Medical Summary | Summary of Care ---
Author Name Unknown Organization [facility] Address [address] [place] [address] Phone [phone] Care Team Providers Care Natural History Collections Curator Name Role Phone Debbie Arango MD Primary Care Provider Reason for Visit * Reason Comments Consultation Rm 13 * Evaluate & Treat - Unlimited Visits (Within 10 days (routine)) - Pending Review Specialty Diagnoses / Procedures Referred By Contact Referred To Contact Cardiac Electrophysiology / Cardiology Diagnoses Paroxysmal atrial fibrillation (HCC) Atypical atrial flutter (HCC) Hypertrophic cardiomyopathy (HCC) Rick Tan DO [address] [place] [address] Rosalba Humphrey DO [address] [place] [address] Referral ID Status Reason Start Date Expiration Date Visits Requested Visits Authorized [id number] Pending Review Specialty Services Required 05/04/[phone] Encounter Details Date Type Department Care Team (Late st Contact Info) Description 07/02/2024 10:45 AM EDT Office Visit Cardiology, [facility] [address] [place] [address] Rosalba Humphrey DO 400 [facility] [place] [address] PAF (paroxysmal atrial fibrillation) ([facility])*; RBBB (right bundle branch block); LAFB (left anterior fascicular block) Allergies No known active allergiesdocumented as of this encounter (statuses as of 07/02/2024) Medications Medication Sig Dispensed Refills Start Date End Date Status Nutra/Shake Oral LiquidIndications: CKD (chronic kidney disease) stage 5, GFR less than 15 ml/min ([facility]) TAKE ONE BY MOUTH EVERY [...] fibrillation.. 200 Tablet 3 06/08/2024 Active Metoprolol Tartrate 25 MG Oral Tablet (Lopressor) Take 1 Tablet by mouth once for 1 dose. 1 Tablet 07/02/2024 07/02/2024 Active Amiodarone HCl 200 MG Oral Tablet [...] as of this encounter (statuses as of 07/02/2024) Active Problems Problem Noted Date Diagnosed Date Paroxysmal atrial flutter 06/28/2024 Hypertrophic cardiomyopathy 06/28/2024 CKD (chronic kidney disease) stage 5, GFR less than 15 ml/min 05/21/2023 Peripheral vascular disease with claudication HTN, goal below 130/80 05/21/2023 documented as of this encounter (statuses as of 07/02/2024) Social History Tobacco Use Types Packs/Day Years [...] Sign Reading Time Taken Comments Blood Pressure 100/64 07/02/2024 11:12 AM EDT Pulse 76 07/02/2024 11:12 AM EDT irre gular Temperature - - Respiratory Rate 16 07/02/2024 11:12 AM EDT Oxygen Saturation - - Inhaled Oxygen Concentration - - Weight 86.2 kg (190 lb) 07/02/2024 11:12 AM EDT Height 175.3 cm (5' 9") 07/02/2024 11:12 AM EDT Body Mass Index 28.06 07/02/2024 11:12 AM EDT documented in this encounter Patient Instructions * Patient Instructions* Rosalba Humphrey DO - 07/02/2024 11:59 AM EDT Take the midodrine daily in the morning and whenever your BP is <100mmHg you can take it up to 3times a day Start back on amiodarone 200mg daily Continue the toprol (metoprolol succinate long acting) 25mg 2x a day until Aug 03 and then just go to daily Take the metoprolol tartrate (lopressor) 25mg as needed for the palpitations Try to not drink the coffee first thing in the morning but if you must try to do de-caffeine instead Your follow up appointment might be with an Nannette shah she is my nurse practitioner seeing myfollow ups but as long as I am not in the OR or off for the day I will pop in to see you as well documented in this encounter Progress Notes * Rosalba Humphrey DO - 07/02/2024 11:15 AM EDT Subjective Monster Samson is a 78 year old male. Chief Complaint Patient presents with Consultation Rm 13 Pt referred to EP due to pAF Referring Provider: Dr. Tan and Maria Guadalupe Pederson Cardiac Problems: TBS early signs pAF/flutter with RVR on coreg; previously on amio 04/2024 but stopped due to prolonged QTc; on coumadin [id number] 3 (age, CAD) HCOM RBBB LAFB 1st degree AV block CAD MGUS Hypotension (he takes midodrine at needed) CKD stage V on PD H/o PE 09/2023 restarted on coumadin at this time HPI: Pt presents with family today No lightheadedness and dizziness or palpitations He reports SOB all the time but certain times it is worse As per pt's family he was doing ok until hospitalization in Sep 2023 for prior to that he could drive and walk without problems; he was not able to go to rehab afterwards because the DC had no room; so since that hospital discharge when he walks a short distance and starts panting. He was last hospitalized in [facility] He continues to have episodes of pAF where he feels shakey and tired and his family founds Normal home BP are ok and he only takes the midodrine when systolic BP are <100; in the past week he had do do this 3 times now. Highest BP was in the 120mmHg PMH: Patient Active Problem List Diagnosis CKD (chronic kidney disease) stage 5, GFR less than 15 ml/min (HCC) Peripheral vascular disease with claudication (HCC) HTN, goal below 130/80 Paroxysmal atrial flutter (HCC) Hypertrophic cardiomyopathy (HCC) Current Outpatient Medications Medication Sig Dispense Refill [...] episodes of atrial fibrillation.. 200 Tablet 3 Current Facility-Administered Medications Medication Dose Route Frequency Provider Last Rate Last Admin Albuterol Sulfate (Proventil) (5 MG/ML) 0.5% *conc* inhalation solution 2.5 mg 2.5 mg Nebulizer PRN Albuterol Sulfate (Proventil) (2.5 MG/3ML) 0.083% inhalation solution 2.5 mg 2.5 mg Nebulizer PRN No past medical history on file. Past Surgical History: Procedure Laterality Date BOTULINUMTOXIN A (DEREK), 1 UNIT, INJ. N/A 02/03/2024 INJECTION, ONABOTULINUMTOXIN A, 1 UNIT (BOTOX) performed by Salena العلي MD at OR [facility] EGD, FLEXIBLE, DIAGNOSTIC N/A 02/03/2024 mild desquamation lower esophagus/tortuous and mildly dilated esophagus/ESOPHAGOGASTRODUODENOSCOPY (EGD), FLEXIBLE, TRANSORAL, DIAGNOSTIC performed by Salena العلي MD at OR [facility] Review of patient's allergies indicates: No Known Allergies Family History Problem Relation Name Age of Onset Other (accidental overdose-) Mother Diabetes Father Family Status Relation Status Mo Fa Sis Son Alive Social History Socioeconomic History Marital status: Spouse [...] on file Housing Stability: Not on file Review of Systems Constitutional: Positive for fatigue. Negative for activity change, chills, fever and unexpected weight change. HENT: Negative for postnasal drip, rhinorrhea and sinus pressure. Eyes: Negative for visual disturbance. Respiratory: Positive for 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 Cardiovascular: Positive for palpitations. Negative for chest pain and leg swelling. Gastrointestinal: Negative for blood in stool, constipation, diarrhea, nausea and vomiting. Genitourinary: On PD Musculoskeletal: Positive for back pain and gait problem. Skin: Negative for rash. Neurological: Positive for dizziness, weakness and light-headedness. Negative for syncope. Objective BP 100/64 | Pulse 76 Comment: irregular | Resp 16 | Ht 1.753 m (5' 9") | Wt 86.2 kg (190 lb) | BMI 28.06 kg/m | BSA 2.05 m Physical Exam Vitals and nursing note reviewed. Constitutional: General: He is awake. Appearance: Normal appearance. He is well-developed. HENT: Head: Normocephalic and atraumatic. Eyes: General: No scleral icterus. Extraocular Movements: Extraocular movements intact. Neck: Vascular: Normal carotid pulses. No carotid bruit or JVD. Cardiovascular: Rate and Rhythm: Tachycardia present. Rhythm irregular. Pulses: Carotid pulses are 2+ on the right side and 2+ on the left side. Radial pulses are 2+ on the right side and 2+ on the left side. Posterior tibial pulses are 2+ on the right side and 2+ on the left side. Heart sounds: S1 normal and S2 normal. Murmur heard. Pulmonary: Effort: Pulmonary effort is normal. Breath sounds: Normal breath sounds. No decreased breath sounds, wheezing, rhonchi or rales. Abdominal: General: Abdomen is protuberant. Musculoskeletal: Cervical back: Neck supple. Right lower leg: No edema. Left lower leg: No edema. Skin: General: Skin is warm and dry. Neurological: General: No focal deficit present. Mental Status: He is alert and oriented to person, place, and time. Psychiatric: Attention and Perception: Attention normal. Mood and Affect: Mood normal. Speech: Speech normal. Behavior: Behavior normal. Behavior is cooperative. Thought Content: Thought content normal. Cognition and Memory: Cognition normal. Judgment: Judgment normal. RESULTS: Echocardiogram: 06/30/2024: The qualitative LV ejection fraction is >70% [...] I). No significant valvular disease is present. 04/04/2023: EF 55-60% Sigmoid shaped septum with focal hypertrophy of basal septum 1.9 Trivail [address] AV thickened PASP 25mmHg ECGS: Today: After metoprolol tartrate SR 80bom RBBB LAFB QTc 558ms WCT 140bpm RBBB LAFB 05/04/2024: SR 93bpm RBBB 04/24/2024: SR 67bpm 1st degree AV block LAFB QTc 564ms 04/21/2024: WCT 142bpm RBBB LAFB 12/03/2023: SR 61bpm 1st degree AV block RBBB LAFB Lab Work Reviewed: Component Latest Ref Rng 03/31/2024 04/08/2024 06/01/2024 BUN 6 - 20 mg/dL 34 (H) 32 (H) Creatinine 0.6 - 1.2 mg/dL 6.4 (H) 6.7 (H) Estimated Glomerular Filtration Rate >=60 mL/min 8 (L) 8 (L) Sodium 135 - 146 mmol/L 135 133 (L) Potassium 3.5 - 5.1 mmol/L 4.5 4.4 Chloride 98 - 107 mmol/L 92 (L) 91 (L) CO2 22 - 32 mmol/L 21 (L) 29 Anion Gap 7 - 15 mmol/L 22 (H) 13 Glucose 70 - 120 mg/dL 134 (H) 80 Albumin 3.8 - 5.0 g/dL 3.6 (L) AST 10 - 50 U/L 32 Alkaline Phosphatase 35 - 130 U/L 80 Bilirubin, Total <=1.2 mg/dL 0.3 Calcium 8.4 - 10.2 mg/dL 9.5 9.0 Protein 6.0 - 8.3 g/dL 5.9 (L) ALT 10 - 50 U/L 52 (H) WBC 4.00 - 10.80 K/uL 10.24 Neutrophils % 40.0 - 75.0 % 67.1 Lymphocytes % 18.0 - 42.0 % 14.1 (L) Monocytes % 1.0 - 11.0 % 10.5 Eosinophils % 0.0 - 6.0 % 6.2 (H) Basophils % 0.0 - 2.0 % 1.0 Immature Granulocytes % 0.0 - 2.0 % 1.1 Absolute Neutrophils 1.80 - 7.70 K/uL 6.88 Absolute Lymphocytes 1.00 - 4.80 K/ul 1.44 Absolute Monocytes 0.00 - 1.10 K/uL 1.08 Absolute Eosinophils 0.00 - 0.70 K/uL 0.63 Absolute Basophils 0.00 - 0.20 K/uL 0.10 Absolute Immature Granulocytes 0.00 - 0.20 K/uL 0.11 WBC 4.00 - 10.80 K/uL 10.24 RBC 4.50 - 5.25 M/uL 4.51 HGB 14.0 - 16.8 g/dL 13.4 (L) HCT 40.0 - 48.4 % 40.8 MCV 82.0 - 99.5 fL 90.5 MCH 27.0 - 34.0 pg 29.7 MCHC 32.0 - 36.0 g/dL 32.8 RDW 11.5 - 15.5 % 15.7 PLT 140 - 400 K/uL 327 MPV 6.6 - 11.1 fL 10.8 nRBCs <=0 /100 WBCs 0 Hemoglobin A1C 4.0 - 5.6 % 6.1 (H) Estimated Average Glucose <126 mg/dL 128 (H) T4, Free 0.9 - 1.7 ng/dL 1.6 TSH 0.27 - 4.20 uIU/mL 8.42 (H) ASSESSMENT: TBS early signs pAF/flutter with RVR on coreg; previously on amio 04/2024 but stopped due to prolonged QTc; on coumadin [id number] 3 (age, CAD) HCOM RBBB 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 degree AV block CAD MGUS Hypotension (he takes midodrine at needed) CKD stage V on PD H/o PE 09/2023 restarted on coumadin at this time PLAN: -Pt's QTc was prolonged prior to starting amiodarone back in 09/2023 due to his underlying RBBB andLAFB; it is stable on today's ECG as well as back earlier this year when he was on the amiodarone -During the visit pt started not feeling well during the visit he went into AF with RR 140s and BP dropped into the 80s systolic; he did not eat as well; we gave him metoprolol lopressor 25mg at thisvisit and we fed him some crackers and juice; over about 20 minutes his HR came down and his repeatECG was back in SR -He needs to try to maintain SR as best as we are able and therefore the best option is restarting amiodarone at 200mg daily while the amiodarone is building up in his system he is to continue the toprol 25mg BID and take lopressor 25mg as needed for tachycardia -I want him to take a midodrine daily as he has not been; and if necessary up to TID for BP <100systolic -I am hesitant to do any possible pacemaker and AVN ablation for concerns of him having an infection but that very well be to where we end up especially if he has to go to HD rather than PD for his BP will not tolerate it -I also educated him he needs to eat more frequent smaller meals and drink with less caffeine beverages; given his HCM his BP does better and he feels better when the heart is more in diastole so slower HR and when his intravascular volume is bañuelos (staying hydrated) -EP f/u 2 months Rosalba Humphrey DO documented in this encounter Nursing Notes * Pat Gonzalez NRCMA - 07/02/2024 11:14 AM EDT Patient was identified by name and date of . Examination Room: 13 Name: Monster Samson Date of : (1945). Reason for Visit: consult Interim Hospitalization(s): yes Problems/Concerns: sob Chest Pain/SOB: sob Medications reviewed and are up to date via: DocumentCloud [facility] is a way you can [...] 7:30 AM EDT PulmDiagnostic Pulmonary Function Lab, [facility] [address] [place] [address] West, [address] [place] [address] 4 10:20 AM EDT Office Visit Pulmonary Medicine, [facility] [address] [place] [address] Kumar Noyola MD [address] [place] [address] 4 9:45 AM EDT Hospital Encounter ENDO [facility], Endoscopy Suite, HFAM 1, [address] [place] [address] Jose Ramon Morgan MD [address] [place] [address] 4 9:45 AM EDT - 4 11:00 AM EDT Surgery ENDO [facility], Endoscopy Suite, HFAM 1, [address] [place] [address] Jose Ramon Morgan MD [address], [place] [id number] ESOPHAGOGASTRODUODENOSCOPY (EGD), FLEXIBLE, TRANSORAL, DIAGNOSTIC 4 9:30 AM EST Office Visit Cardiology, [facility] [address] [facility] [place] [address] Nannette Gonzales CRNP [address] [place], [place] [address] 4 11:30 AM EST Telemedicine Cardiovascular Genetics, [facility] [address] [place] [address] Kayla Larson, MS [address] [place] [address] 4 10:30 AM EST Office Visit Cardiology, [facility] 132 [facility] [place] [address] Rick Tan, DO [address] [place] [address] 4 3:00 PM EST Office Visit Neurology [facility] 200 [facility] [place], [place] [address] Carlos Jiménez, DO 200 [facility] [place], [place] [address] Scheduled Orders Name Type Priority Associated Diagnoses Orde r Schedule EKG EKG Routine PAF (paroxysmal atrial fibrillation) (HCC) RBBB (right bundle branch block) LAFB (left anterior fascicular block) Expected: 07/02/2024 (Approximate), Expires: 08/01/2025 EKG EKG Routine PAF (paroxysmal atrial fibrillation) (HCC) RBBB (right bundle branch block) LAFB (left anterior fascicular block) Expected: 07/02/2024 (Approximate), Expires: 08/01/2025 Scheduled Procedures Name Priority Associated Diagnoses Date/Ti [...] as of this encounter Visit Diagnoses Diagnosis PAF (paroxysmal atrial fibrillation) (HCC)- Primary Atrial fibrillation RBBB (right bundle branch block) Right bundle branch block 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
--- OUTSIDE RECORDS SUMMARY | 2024-10-16 13:19 | External Medical Summary | Summary of Care ---
Author Name Unknown Organization [facility] Address [address] [place] [address] Phone [phone] Care Team Providers Care Property And Equipment Clerk Name Role Phone Debbie Arango MD Primary Care Provider Reason for Visit * Reason Onset Date Comments Fax 06/11/2024 Re: [place] testi ng/[place] Encounter Details Date Type Department Care Team (Late st Contact Info) Description 06/11/2024 Telephone Pulmonary Medicine, [facility] [address] [place] [address] Services, Scheduling [address] [place] [address] Fax (Re: noc ox testing/[place]) Allergies No [...] [place]. LM on respiratory vm (at the [place]) providing our phone number if it's not received or if there are questions. * Telephone Encounter - Brandi Wong OSA - 06/11/2024 9:14 AM EDT [employer] [facility] calling in stating they received a referral for a Noc Ox and stated that with the [place] it has to go through the [place] hospital for it to be covered. Please advise, Thank you! documented in this encounter Plan of Treatment Upcoming Encounters Date Type Department Care Team (Latest Contact Info) Description 2:30 PM EDT Office Visit Cardiology, [facility] 132 [facility] [place] [address] Maria Guadalupe Pederson PA-C 132 [facility] [place], [place] [address] 4 1:25 PM EDT NeuroDiagnostic Study Neurophysiolog y Scenery Giovanna [place] [address] [place] [address] Carlos Jiménez, DO [address] [place] [address] 4 1:00 PM EDT Cardiac Studies Cardiac Studies, [facility] 132 [facility] [place] [address] 4 10:45 AM EDT Office Visit Cardiology, [facility] 132 [facility] [place] [address] Rosalba Humphrey, DO [address] [place] [address] 4 7:30 AM EDT PulmDiagnostic Pulmonary Function Lab, [facility] 132 [facility] [place] [address] West, Pft 132 [facility] [place] [address] 4 10:20 AM EDT Office Visit Pulmonary Medicine, [facility] 132 [facility] [place] [address] Kumar Noyola MD [address] [facility] [address] 4 9:45 AM EDT Hospital Encounter ENDO [facility], Endoscopy Suite, HFAM 1, [address] [place], [place] [address] Jose Ramon Morgan MD [address] [place], [place] [address] 4 9:45 AM EDT - 4 11:00 AM EDT Surgery ENDO C, Endoscopy Suite, HFAM 1, [address] [place] [address] Jose Ramon Morgan MD [address] [place] [address] ESOPHAGOGASTRODUODENOSCOPY (EGD), FLEXIBLE, TRANSORAL, DIAGNOSTIC 4 11:30 AM EST Telemedicine Cardiovascular Genetics, [facility] [address] [facility] [place] [address] Kayla Larson, [place] [address] [facility] [place] [address] 4 3:00 PM EST Office Visit Neurology [facility] [address] [place] [address] Carlos Jiménez, DO [address] [place] [address] Scheduled Procedures Name Priority Associated Diagnoses Date/Ti [...] filedocumented as of this encounter Care Teams Property And Equipment Clerk Relationship Specialty Start Date End Date Debbie Arango MD [address] [facility] [place] [address] PCP - General Internal Medicine 03/04/23 documented as of this encounter
--- OUTSIDE RECORDS SUMMARY | 2024-10-16 13:19 | External Medical Summary ---
Author Name Unknown Address Unknown Organization K01:[facility] [place] [address] [facility] [address] [place] [address] Laboratory Report Ordering Provider Test Date Status ANDREEA KENYON 06/23/2024 14:12:00 Final Observation Date Value Abnormality Reference (Units ) Status CK 06/23/2024 14:12:00 633 Above high normal 39 -308 (U/L) Final Performing Location [facility] [address] [facility] [place] [address]
--- OUTSIDE RECORDS SUMMARY | 2024-10-16 13:19 | External Medical Summary | Summary of Care ---
Author Name Unknown Organization [facility] Address [address] [place] [address] Phone [phone] Care Team Providers Care Controls Project Engineer Name Role Phone Debbie Arango MD Primary Care Provider Reason for Visit * Reason Onset Date Comments Test Results 06/28/2024 Encounter Details Date Type Department Care Team (Late st Contact Info) Description 06/28/2024 Telephone Pulmonary Medicine, [facility] 132 [facility] [place] [address] Kumar Noyola MD [address] [facility] [place] [address] Test Results Allergies No known active allergiesdocumented as of this encounter (statuses as of 06/28/2024) Medications Medication Sig Dispensed Refills Start Date [...] as of this encounter (statuses as of 06/28/2024) Active Problems Problem Noted Date Diagnosed Date CKD (chronic kidney disease) stage 5, GFR less than 15 ml/min 05/21/2023 Peripheral vascular disease with claudication HTN, goal below 130/80 05/21/2023 documented as of this encounter (statuses as of 06/28/2024) Social History Tobacco Use Types Packs/Day Years [...] encounter Miscellaneous Notes * Telephone Encounter - Mylene Benavides LPN - 06/28/2024 10:59 AM EDT ----- Message from Kumar Noyola MD sent at 06/27/2024 10:00 PM EDT ----- CT CHEST WO CONTRAST DATE and TIME: [...] kidney. Recommend further evaluation with renal ultrasound. Chart Note documented in this encounter Plan of Treatment Upcoming Encounters Date Type Department Care Team (Latest Contact Info) Description 4 1:00 PM EDT Cardiac Studies Cardiac Studies, [facility] 132 [place] [address] 4 10:45 AM EDT Office Visit Cardiology, [address] [place] [address] Rosalba Humphrey, DO [address] [place] [id number] 4 7:30 AM EDT PulmDiagnostic Pulmonary Function Lab, [address] [place] [address] West, [address] [place] [address] 4 10:20 AM EDT Office Visit Pulmonary Medicine, [address] [place] [address] Kumar [facility] [address] [facility] [address] 4 9:45 AM EDT Hospital Encounter ENDO [facility], Endoscopy Suite, HFAM 1, [address] [place] [address] Jose Ramon Morgan MD [address] [facility] [place] [id number] 4 9:45 AM EDT - 4 11:00 AM EDT Surgery [facility] Endoscopy Suite, HFAM 1, [address] [place] [place] [address] Jose Ramon Morgan MD [address] [place] [address] ESOPHAGOGASTRODUODENOSCOPY (EGD), FLEXIBLE, TRANSORAL, DIAGNOSTIC 4 11:30 AM EST Telemedicine Cardiovascular Genetics, [facility] [address] [facility] [place] [address] Kayla Larson, MS [address] [place] [address] 4 10:30 AM EST Office Visit Cardiology, [facility] [address] [place] [address] Rick Tan, DO [address] [place] [address] 4 3:00 PM EST Office Visit Neurology [facility] [address] [place] [address] Carlos Jiménez, DO [address] [place], [place] [address] Scheduled Procedures Name Priority Associated Diagnoses Date/Ti me ESOPHAGOGASTRODUODENOSCOPY ( EGD), FLEXIBLE, TRANSORAL, DIAGNOSTIC Dysphagia, unspecified type 07/20/2024 9:45 AM EDT Health Maintenance Due Date Last Done Comments Depression Screening 1958 DTap/Tdap Vaccines (1 - Tdap) 1965 COVID-19 Vaccine (2022-2 4 season) 2024 Influenza Vaccine (FLU shot) [...] filedocumented as of this encounter Care Teams Controls Project Engineer Relationship Specialty Start Date End Date Debbie Arango MD [address] [facility] [place] [address] PCP - General Internal Medicine 03/04/23 documented as of this encounter
--- OUTSIDE RECORDS SUMMARY | 2024-10-16 13:19 | External Medical Summary | Summary of Care ---
Author Name Unknown Organization [facility] Address [address] [place] [address] Phone [phone] Care Team Providers Care Master Police Detective Name Role Phone Debbie Arango MD Primary Care Provider Reason for Visit * Reason Comments Follow Up Encounter Details Date Type Department Care Team (Latest Contact Info) Description 06/15/2024 2:30 PM EDT Office Visit Cardiology, [facility] [address] [place] [address] Maria Guadalupe Pederson PA-C [address] [place] [address] Hypertrophic cardiomyopathy (HCC)*; Paroxysmal atrial flutter (HCC); HTN, goal below 130/80 Allergies No known active allergiesdocumented as of [...] Sign Reading Time Taken Comments Blood Pressure 108/60 06/15/2024 2:59 PM EDT Pulse 72 06/15/2024 2:59 PM EDT Temperature - - Respiratory Rate - - Oxygen Saturation 93% 06/15/2024 2:59 PM EDT Inhaled Oxygen Concentration - - Weight 84.8 kg (187 lb) 06/15/2024 2:59 PM EDT Height - - Body Mass Index 28.44 05/31/2024 9:17 AM EDT documented in this encounter Progress Notes * Maria Guadalupe Pederson PA-C - 06/28/2024 4:14 PM EDT Cardiology F/U: SUBJECTIVE: Patient is a 78 year old male here today for close cardiology f/u. Last clinic evaluation approx [address] Tan. History includes: 1. Paroxysmal atrial flutter -amiodarone discontinued due to prolonged QT interval -appropriately anticoagulated with warfarin -underlying conduction disease including first-degree AV block, right bundle branch block, and leftanterior fascicular block. 2. Hypertrophic cardiomyopathy - septal thickness 2.0cm - No significant left ventricular outflow tract obstruction. 3. Hypotension -borderline. Midodrine on med list PRN 4. Unprovoked bilateral pulmonary embolus 09/2023 -appropriately anticoagulated with warfarin -pulmonary perfusion imaging low probability for PE 05/04/2024 5. End-stage renal disease on peritoneal dialysis 6. Community-acquired pneumonia versus aspiration pneumonia -silent aspiration per video swallow eval -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 Last visit patient was apparently taking carvedilol and metoprolol causing hypotension. Carvedilol was discontinued and metoprolol reduced to 25 mg BID. Tolerating these. Not taking midodrine. Patient presents today feeling fairly well. Notes mild edema in his feet and ankles. BP controlled.Taking meds as prescribed. No interim hospitalizations. No chest pain, shortness of breath, palpitations, dizziness, syncope or near syncope. No orthopnea,PND. No fever, chills, cough, hematochezia, melena, or hemoptysis. Review of Systems: See HPI for pertinent positives. All others negative, other than those noted in HPI. Cardiac studies/labs: ECG April 2024: Sinus rhythm with first-degree AV block, right bundle branch block, left anterior fascicular block. 2D echocardiogram report October 13, 2023: The rhythm is atrial fibrillation with rapid ventricular response. Left ventricle is small and under filled. LVEF >70% Asymmetric hypertrophy of the left ventricular septum measuring 2.0 cm. No significantleft ventricular outflow tract gradient. Patient Active Problem List Diagnosis CKD (chronic kidney disease) stage 5, GFR less than 15 ml/min ([facility]) Peripheral vascular disease with claudication ([facility]) HTN, goal below 130/80 Social History Tobacco Use Smoking status: Former [...] episodes of atrial fibrillation.. 200 Tablet 3 Midodrine HCl 2.5 MG Oral Tablet (Proamatine) Take 1 Tablet by mouth in the morning and 1 Tablet before bedtime. (Patient not taking: Reported on 06/15/2024) 180 Tablet 3 Current Facility-Administered Medications Medication Dose Route Frequency Provider Last Rate Last Admin Albuterol Sulfate (Proventil) (5 MG/ML) 0.5% *conc* inhalation solution 2.5 mg 2.5 mg Nebulizer PRN Albuterol Sulfate (Proventil) (2.5 MG/3ML) 0.083% inhalation solution 2.5 mg 2.5 mg Nebulizer PRN OBJECTIVE/PHYSICAL EXAMINATION: BP 108/60 | Pulse 72 | Wt 84.8 kg (187 lb) | SpO2 93% | BMI 28.44 kg/m | BSA 2.02 m General: NAD, [...] posterior tibial=2/4. Neuro: No focal deficits. ASSESSMENT: 78 year old male ICD-10-CM 1. Hypertrophic cardiomyopathy (HCC) I42.2 2. Paroxysmal atrial flutter (HCC) I48.92 3. HTN, goal below 130/80 I10 PLAN: Patient is scheduled for repeat echo next month. He will keep this appt. Continue metoprolol and coumadin for atrial flutter. Already scheduled for EP visit to discuss atrial flutter therapies and hypertrophic cardiomyopathy. Patient is being evaluated in the cardiology office for ongoing care/risk management for hypertrophic cardiomyopathy; atrial flutter. I spent a total of 30 minutes on the date of service in preparation, delivery, and documentation ofthe care provided to Monster Samson excluding any time spent in the performance of separately billed services. The patient agrees to the above plan and will call with additional questions or concerns. ER with all emergencies advised. Follow-up: Return in about 3 months (around 09/15/2024). | Check-out note: Keep appt with Dr. Humphrey [address] Dominick Pederson PA-C Department of Cardiology This chart was completed in part utilizing [employer] Speech Voice Recognition Software. Grammatical errors, random word insertions, prounoun errors, and incomplete sentences are an occasional consequence of this system due to software limitations, ambient noise, and hardware issues. Any formal questions or concerns about the content, text, or information contained within the body of this dictation should be directly addressed to the provider for clarification. documented in this encounter Nursing Notes * Annie Gurrola CMA - 06/15/2024 2:58 PM EDT Examination Room: 6 week Name: Monster Samson Date of : (1945) Reason for Visit: 6 week Interim Hospitalization(s): none Problems/Concerns: Retaining fluid/ feet swelling. Chest Pain/SOB: denied chest pain, but very SOB most times. My adicate [facility]er is a way you can talk to your provider online through e-mail. Would you like to sign up? I can activate it for you? ALREADY ACTIVE Patient was instructed to not get up on the exam table until directed and assisted by their provider; patient is to remain seated in the chair/ wheelchair/ exam table for fall prevention and safety reasons. Patient is aware to have assistance to step down off exam table with personnel. Patient voiced full comprehension of instructions. documented in this encounter Plan of Treatment Upcoming Encounters Date Type Department Care Team (Latest Contact Info) Description 4 1:00 PM EDT Cardiac Studies Cardiac Studies, [facility] 132 [facility] [place] [address] 4 10:45 AM EDT Office Visit Cardiology, [address] [place] [address] Rosalba Humphrey, DO 400 [facility] [place] [address] 4 7:30 AM EDT PulmDiagnostic Pulmonary Function Lab, [facility] 132 [facility] [place] [address] West, Pft [address] [facility] [address] 4 10:20 AM EDT Office Visit Pulmonary Medicine, [facility] 132 [facility] [place] [address] Kumar Noyola MD [address] [facility] [place] [address] 4 9:45 AM EDT Hospital Encounter [facility], Endoscopy Suite, HFAM 1, [address] [place], [place] [id number] Jose Ramon Morgan MD [address] [place], [place] [id number] 4 9:45 AM EDT - 4 11:00 AM EDT Surgery [facility]O [facility], Endoscopy Suite, HFAM 1, [address] [place] [address] Jose Ramon Morgan MD [address] [place] [address] ESOPHAGOGASTRODUODENOSCOPY (EGD), FLEXIBLE, TRANSORAL, DIAGNOSTIC 4 11:30 AM EST [facility] [address] [place] [address] Kayla Larson, MS [address] [place] [address] 4 10:30 AM EST Office Visit Cardiology, [facility] [address] [facility] [place] [address] Rick Tan, DO [address] [place] [address] 4 3:00 PM EST Office Visit Neurology [facility] [address] [place], [place] [address] Carlos Jiménez, DO 200 [facility] [place], [place] [address] Scheduled Procedures Name Priority Associated Diagnoses Date/Ti [...] (HCC)- Primary Other hypertrophic cardiomyopathy Paroxysmal atrial flutter (HCC) Atrial flutter HTN, goal below 130/80 Unspecified essential hypertension Dysphagia, unspecified type documented in this encounter Care Teams Master Police Detective Relationship Specialty Start Date End Date Debbie Arango MD [address] [facility] [place] [address] PCP - General Internal Medicine 03/04/23 documented as of this encounter"
--- OUTSIDE RECORDS SUMMARY | 2024-10-16 13:19 | External Medical Summary | Summary of Care ---
Author Name Unknown Organization [facility] Address [address] [place] [address] Phone [phone] Care Team Providers Care Powder Shoveler Name Role Phone Debbie Arango MD Primary Care Provider Reason for Visit * Reason Onset Date Comments Advice 07/05/2024 Encounter Details Date Type Department Care Team (Late st Contact Info) Description 07/05/2024 Telephone Cardiology, [place] [facility] [address] Rosalba Humphrey, 400 [facility] [place] [address] Advice Allergies No known active allergiesdocumented [...] once for 1 dose. 1 Tablet 07/02/2024 4 Discontinue d(Patient preference/ discontinua tion) Hospital, Clinic, [...] encounter Miscellaneous Notes * Telephone Encounter - Debbie Coughlin CMA - 07/06/2024 12:51 PM EDT [facility] [place]. Issue addressed, no further action is needed. * Telephone Encounter - Bird Warner OSA - 07/05/2024 1:53 PM EDT [facility] calling: [facility] Relationship to [facility]: rn building Phone/Fax to return call: [phone] ext [phone] Reason for call(brief): medication question Pharmacy: [facility] Provider Name:Dr Humphrey Detailed message to office:[facility] asking if the directions on the Metoprolol Tartrate 25 MG Oral Tablet(Lopressor). documented in this encounter Plan of Treatment Upcoming Encounters Date Type Department Care Team (Latest Contact Info) Description 4 10:20 AM EDT Office Visit Pulmonary Medicine, [facility] 132 [facility] [place] [address] Kumar Noyola MD [address] [facility] [place] [id number] 4 2:00 PM EDT [facility] [address] [place] [address] Pa Gonzalez III, MD [address] [place] [address] 4 9:45 AM EDT Hospital Encounter ENDO [facility], Endoscopy Suite, HFAM 1, [address] [place] [address] Jose Ramon Morgan MD [address] [place], [place] [id number] 4 9:45 AM EDT - 4 11:00 AM EDT Surgery ENDO [facility], Endoscopy Suite, HFAM 1, [address] [place] [address] Jose Ramon Morgan MD [address] [place], [place] [id number] ESOPHAGOGASTRODUODENOSCOPY (EGD), FLEXIBLE, TRANSORAL, DIAGNOSTIC 4 9:30 AM EST Office Visit Cardiology, [facility] 132 [facility] [place] [address] Nannette Gonzales CRNP 400 [facility] [place] [address] 4 11:30 AM EST Telemedicine Cardiovascular Genetics, [facility] 132 [facility] [place] [address] Kayla Larson, MS [address] [facility] [place] [address] 4 10:30 AM EST Office Visit Cardiology, [facility] 132 [facility] [place] [address] Rick Tan, DO 132 [facility] [place] [address] 4 3:00 PM EST Office Visit Neurology [facility] [address] [place], [place] [address] Carlos Jiménez, DO 200 [facility] [place], [place] [address] Scheduled Procedures Name Priority Associated Diagnoses Date/Ti [...] filedocumented as of this encounter Care Teams Powder Shoveler Relationship Specialty Start Date End Date Debbie Arango MD [address] [facility] [place] [address] PCP - General Internal Medicine 03/04/23 documented as of this encounter
--- OUTSIDE RECORDS SUMMARY | 2024-10-16 13:20 | External Medical Summary ---
Author Name Unknown Address Unknown Organization : Laboratory Report Ordering Provider Test Date Status ANDREEA KENYON 06/01/2024 12:26:54 Final Observation Date Value Abnormality Reference (Units ) Status Thiamine [Moles/volume] in Blood 06/01/2024 12:26:54 172 78-185 (nmol/L) Final Vitamin supplementation with in 24 hours prior to
blood draw may affect the accuracy of the results.
This test was developed and its analytical performance
characteristics have been determined by [facility] [employer] [place], [place]. It has
not been cleared or approved by the U.S. Food and Drug
Administration. This assay has been validated pursuant
to the CLIA regulations and is used for clinical
purposes.

Test Performed at:
[facility]
[address] [facility] [place] [address]
Sky Burger M.D., Ph.D.,Director of Laboratories Performing Location
--- OUTSIDE RECORDS SUMMARY | 2024-10-16 13:20 | External Medical Summary | Summary of Care ---
Author Name Unknown Organization [facility] Address [address] [place] [address] Phone [phone] Care Team Providers Care Field Operations Supervisor Name Role Phone Debbie Arango MD Primary Care Provider Encounter Details Date Type Department Care Team (Latest Contact Info) Description 04/22/2024 4:35 AM EDT - 04/22/2024 9:29 AM EDT Hospital Encounter Radiology Film File [address] [place] [address] Discharge Disposition: Home - Self Care Allergies No known active allergiesdocumented as of this encounter (statuses as of 06/01/2024) Medications Medication Sig Dispensed Refills Start Date [...] as of this encounter (statuses as of 06/01/2024) Active Problems Problem Noted Date Diagnosed Date CKD (chronic kidney disease) stage 5, GFR less than 15 ml/min 05/21/2023 Peripheral vascular disease with claudication HTN, goal below 130/80 05/21/2023 documented as of this encounter (statuses as of 06/01/2024) Social History Tobacco Use Types Packs/Day Years [...] Care Team (Latest Contact Info) Description 4 2:15 PM EDT Imaging Radiology [address] [place] [address] 4 2:30 PM EDT Office Visit Cardiology, [facility] 132 [facility] [place] [address] Maria Guadalupe Pederson PA-C [address] [place] [address] 4 1:25 PM EDT NeuroDiagnostic Study Neurophysiolog y [facility] [place] [address] [place] [address] Carlos Jiménez, DO [address] [place] [address] 4 1:00 PM EDT Cardiac Studies Cardiac Studies, [facility] 132 [facility] [place] [address] 4 10:45 AM EDT Office Visit Cardiology, [facility] 132 [facility] [place] [address] Rosalba Humphrey, DO 400 [facility] [place], [place] [address] 4 7:30 AM EDT PulmDiagnostic Pulmonary Function Lab, [facility] 132 [facility] [place] [address] West, Pft 132 [facility] [place] [address] 4 8:00 AM EDT PulmDiagnostic Pulmonary Function Lab, [facility] 132 [facility] [place] [address] West, Pft 132 [facility] [place] [address] 4 10:20 AM EDT Office Visit Pulmonary Medicine, [facility] 132 [facility] [place] [address] Kumar Noyola MD [address] [place] [facility] [place] [address] 4 9:45 AM EDT Hospital Encounter ENDO [facility], Endoscopy Suite, HFAM 1, [address] [place] [address] Jose Ramon Morgan MD [address] [place] [address] 4 9:45 AM EDT - 4 11:00 AM EDT Surgery ENDO [facility], Endoscopy Suite, HFAM 1, [address] [place] [address] Jose Ramon Morgan MD [address] [place] [address] ESOPHAGOGASTRODUODENOSCOPY (EGD), FLEXIBLE, TRANSORAL, DIAGNOSTIC 4 11:30 AM EST Telemedicine [facility] [address] [place] [address] Kayla Larson, MS [address] [place] [address] 4 3:00 PM EST Office Visit Neurology [facility] 200 [facility] [place], [place] [address] Carlos Jiménez, DO 200 [facility] [place], [place] [address] Scheduled Procedures Name Priority Associated Diagnoses Date/Ti [...] Procedure Name Priority Date/Time Associated Diagnosis Comments RADIOLOGY EXAM - CT (IMAGES ONLY, NO REPORT) Routine 04/22/2024 4:35 AM EDT documented in this encounter Results * RADIOLOGY EXAM - CT (IMAGES ONLY, NO REPORT) (04/22/2024 4:35 AM EDT) 04/22/2024 4:34 AM EDT Narrative Scheduling, Silent - 05/31/2024 8:27 PM EDT This is an imaging study not interpreted or resulted by a [facility] or [facility] contracted radiologist. Kumar Noyola MD RAD CT documented in this encounter Care Teams Field Operations Supervisor Relationship Specialty Start Date End Date Debbie Arango MD [address] [facility] [place] [address] PCP - General Internal Medicine 03/04/23 documented as of this encounter
--- OUTSIDE RECORDS SUMMARY | 2024-10-16 13:20 | External Medical Summary ---
Author Name Unknown Address Unknown Organization K01:[facility] [address] [place] [address] Laboratory Report Ordering Provider Test Date Status ANDREEA KENYON 06/01/2024 12:26:54 Final Observation Date Value Abnormality Reference (Units ) Status Vitamin B12 06/01/2024 12:26:54 1412 Above high normal 232-1245 (pg/mL) Final Performing Location LABORATORY [facility] - [address] [place] [address]
--- OUTSIDE RECORDS SUMMARY | 2024-10-16 13:20 | External Medical Summary | Summary of Care ---
Author Name Unknown Organization [facility] Address [address] [place] [address] Phone [phone] Care Team Providers Care Top Printing Press Operator Name Role Phone Debbie Arango MD Primary Care Provider Encounter Details Date Type Department Care Team (Late st Contact Info) Description 05/24/2024 Telephone Cardiology, [place] [address] [place] [address] Rosalba Humphrey, [address] [facility] [place] [address] Allergies No known active allergiesdocumented as of this encounter (statuses as of 05/28/2024) Medications Medication Sig Dispensed Refills Start Date End Date Status Nutra/Shake Oral LiquidIndications:CK D (chronic kidney disease) stage 5, GFR less than 15 ml/min (HCC) TAKE ONE BY MOUTH EVERY DAY TO SUPPLEMENT NUTRIENT INTAKE 03/20/2023 Active Renal Vitamin 0.8 MG Oral TabletIndications:CK D [...] Active Midodrine HCl 2.5 MG Oral Tablet (Proamatine)Indicati ons:Hypotension Take 1 Tablet by mouth in the morning and 1 Tablet before bedtime. 180 Tablet 3 05/06/2024 Active Metoprolol Succinate ER 25 MG Oral Tablet Extended Release 24 Hour (toPROL XL)Indications:Parox ysmal atrial fibrillation (HCC) Take 0.5 Tablets by mouth in the morning. 45 Tablet 3 05/06/2024 Active documented as of this encounter (statuses as of 05/28/2024) Active Problems Problem Noted Date Diagnosed Date CKD (chronic kidney disease) stage 5, GFR less than 15 ml/min 05/21/2023 Peripheral vascular disease with claudication HTN, goal below 130/80 05/21/2023 documented as of this encounter (statuses as of 05/28/2024) Social History Tobacco Use Types Packs/Day Years [...] encounter Miscellaneous Notes * Telephone Encounter - Rachael Garcia OSA - 05/28/2024 11:06 AM EDT Spoke to pt's . She is aware of appt on 07/02/24. * Telephone Encounter - Dyana Driver OSA - 05/24/2024 10:11 AM EDT ----- Message from Tasia Vela sent at 05/21/2024 2:28 PM EDT ----- Regarding: Need close in Rel broken This pt had [address] Tan. He has echo on 06/30. Dr. Humphrey reviewed chart and is asking if 07/02/24 10:45 Close in Rel can be opened up for this pt. Pt is not aware, if a member of the scheduling team could please let pt know of appointment date and time. Pt does not manage his own appointments. It is OK to call Dyana or Dominic Samson in pt chart as EC. Pt currently scheduled with Dr. Humphrey on 07/20 - he also [place] [facility] [place] So thisappointment would need to be cancelled anyway. Thanks everyone, I appreciate your help. Tasia Lainez LPN documented in this encounter Plan of Treatment Upcoming Encounters Date Type Department Care Team (Latest Contact Info) Description 9:00 AM EDT Office Visit Pulmonary Medicine, [facility] [address] [facility] [place] [address] Kumar Noyola MD [address] [facility] [place] [address] 4 11:20 AM EDT Office Visit Neurology [facility] [address] [place], [place] [address] Carlos Jiménez, DO [address] [place] [address] 4 2:30 PM EDT Office Visit Cardiology, [facility] 132 [facility] [place] [address] Maria Guadalupe Pederson, ROHINI 132 [facility] [place] [address] 4 1:00 PM EDT Cardiac Studies Cardiac Studies, [facility] 132 [facility] [place] [address] 4 10:45 AM EDT Office Visit Cardiology, [facility] 132 [facility] [place] [address] Rosalba Humphrey Imelda, [address] [place] [address] 4 9:45 AM EDT Hospital Encounter [facility] Endoscopy Suite, HFAM 1, [address] [place] [address] Jose Ramon Morgan MD [address] [place] [address] 4 9:45 AM EDT - 4 11:00 AM EDT Surgery ENDO [facility], Endoscopy Suite, HFAM 1, [address] [place], [place] [address] Jose Ramon Morgan MD [address] [place] [address] ESOPHAGOGASTRODUODENOSCOPY (EGD), FLEXIBLE, TRANSORAL, DIAGNOSTIC 11:30 AM EST Telemedicine Cardiovascular Genetics, Ankit Razo [address] [place] [address] Kayla Larson, MS [address] [place] [address] Scheduled Procedures Name Priority Associated Diagnoses Date/Ti [...] as of this encounter Care Teams Top Printing Press Operator Relationship Specialty Start Date End Date Debbie Arango MD [address] [facility] [place] [address] PCP - General Internal Medicine 03/04/23 documented as of this encounter
--- OUTSIDE RECORDS SUMMARY | 2024-10-16 13:20 | External Medical Summary | Summary of Care ---
Author Name Unknown Organization [facility] Address [address] [place] [address] Phone [phone] Care Team Providers Care Turnaround Engineer Name Role Phone Debbie Arango MD Primary Care Provider Encounter Details Date Type Department Care Team (Latest Contact Info) Description 04/22/2024 9:30 AM EDT - 04/22/2024 11:59 PM EDT Hospital Encounter Radiology [facility] [place] [address] [place] [address] Discharge Disposition: Home - Self [...] Description 4 2:15 PM EDT Imaging Radiology [address] [place] [address] 4 2:30 PM EDT Office Visit Cardiology, [facility] 132 [facility] [place] [address] Maria Guadalupe Pederson PA-C [address] [place] [address] 4 1:25 PM EDT NeuroDiagnostic Study Neurophysiolog y [facility] [place] [address] [place] [address] Carlos Jiménez, DO [address] [place] [address] 4 1:00 PM EDT Cardiac Studies Cardiac Studies, [facility] 132 [facility] [place] [address] 4 10:45 AM EDT Office Visit Cardiology, [facility] 132 [facility] [place] [address] Rosalba Humphrey, DO [address] [facility] [place], [place] [address] 4 7:30 AM EDT PulmDiagnostic Pulmonary Function Lab, [facility] 132 [facility] [place] [address] [place], P[place] 132 [facility] [place] [address] 4 8:00 AM EDT PulmDiagnostic Pulmonary Function Lab, [facility] 132 [facility] [place] [address] [place], [place] 132 [facility] [place] [address] 4 10:20 AM EDT Office Visit Pulmonary Medicine, [facility] 132 [facility] [place] [address] Kumar Noyola MD [address] [place] [address] 4 9:45 AM EDT Hospital Encounter [facility] [facility] Endoscopy Suite, HFAM 1, [address] [place] [address] Jose Ramon Morgan MD [address] [place] [address] 4 9:45 AM EDT - 4 11:00 AM EDT Surgery [facility] Endoscopy Suite, HFAM 1, [address] [place] [address] Jose Ramon Morgan MD [address] [place] [address] ESOPHAGOGASTRODUODENOSCOPY (EGD), FLEXIBLE, TRANSORAL, DIAGNOSTIC 4 11:30 AM EST [facility] [address] [place] [address] Kayla Larson, MS [address] [place] [address] 4 3:00 PM EST Office Visit Neurology [facility] 200 [facility] [place], [place] [address] Carlos Jiménez, DO 200 [facility] [place], [place] [address] Scheduled Procedures Name Priority Associated Diagnoses Date/Ti [...] CT (IMAGES ONLY, NO REPORT) Routine 04/22/2024 9:30 AM EDT documented in this encounter Results * RADIOLOGY EXAM - CT (IMAGES ONLY, NO REPORT) (04/22/2024 9:30 AM EDT) 04/22/2024 9:29 AM EDT Narrative Scheduling, Silent - 05/31/2024 8:23 PM EDT This is an imaging study not interpreted or resulted by a [facility] or [facility] contracted radiologist. Kumar Noyola MD RAD CT documented in this encounter Care Teams Turnaround Engineer Relationship Specialty Start Date End Date Debbie Arango MD [address] [facility] [place] [address] PCP - General Internal Medicine 03/04/23 documented as of this encounter
--- OUTSIDE RECORDS SUMMARY | 2024-10-16 13:20 | External Medical Summary | Summary of Care ---
Author Name Unknown Organization [facility] Address [address] [place] [address] Phone [phone] Care Team Providers Care Engine Assembly Supervisor Name Role Phone Debbie Arango MD Primary Care Provider Reason for Referral * Evaluate & Treat - Unlimited Visits (Within 3 days (urgent)) - Pending Review Specialty Diagnoses / Procedures Referred By Contac t Referred To Contact Pulmonary Diseases / Pulmonary Diagnoses Aspiration pneumonia of right lower lobe, unspecified aspiration pneumonia type (HCC) Rick Tan DO [address] [place] [address] Houston Caraballo DO [address] [place] [address] Referral ID Status Reason Start Date Expiration Date Visits Requested Visits Authorized [id number] Pending Review Specialty Services Required 05/19/2024 999 [id number] Question Answer Referral Priority Within 3 days (urgent) Where should this appointment be scheduled? [facility] Primary Reason for Referral? Other Comments Silent aspiration per video swallow kermit, debris in the right mainstem bronchus extending to multiple right lower lobe branches per CT 04/22/2024. Reason for Visit * Reason Onset Date Comments Advice 05/05/2024 Medication Question 05/05/2024 Encounter Details Date Type Department Care Team (Late st Contact Info) Description 05/05/2024 Telephone Cardiology, [facility] [address] [place] [address] Rick Tan DO [address] [place] [address] Advice; Medication Question Allergies No known active allergiesdocumented as of this encounter (statuses as of 05/19/2024) Medications Medication Sig Dispensed Refills Start Date [...] the morning. 45 Tablet 3 05/06/2024 Active Metoprolol Succinate ER 50 MG Oral Tablet Extended Release 24 Hour (toPROL XL) Take 1 Tablet by mouth in the morning. 30 Tablet 5 05/04/2024 Discontinued documented as of this encounter (statuses as of 05/19/2024) Active Problems Problem Noted Date Diagnosed Date CKD (chronic kidney disease) stage 5, GFR less than 15 ml/min 05/21/2023 Peripheral vascular disease with claudication HTN, goal below 130/80 05/21/2023 documented as of this encounter (statuses as of 05/19/2024) Social History Tobacco Use Types Packs/Day Years [...] encounter Miscellaneous Notes * Addendum Note - Art Mendoza RN - 05/19/2024 11:54 AM EDTAddended by: ART MENDOZA on: 05/19/2024 11:54 AM Modules accepted: Orders * Telephone Encounter - Rick Tan DO - 05/18/2024 2:50 PM EDT Pulmonary referral re: silent aspiration per video swallow kermit, 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 * Telephone Encounter - Angelique Singh OSA - 05/14/2024 4:27 PM EDT Person calling: Dyana Relationship to patient: Number to return call: [phone] Reason for call(brief): pulmonary referral Pharmacy: na Provider Name:Dr. Tan Detailed message to office:MT is able to place insurance referral for pulmonary but pulmonary needsreferral for patient to be seen from Dr. Tan. Thanks * Telephone Encounter - Nigel West LPN - 05/14/2024 11:24 AM EDT VA CARGO SUPERVISOR called and stated she is informing patient to take Toprol XL 12.5 once daily. Midodrine has been held by patient with blood pressures being better controlled. * Telephone Encounter - Pat Gonzalez NRCMA - 05/14/2024 9:54 AM EDT Spoke with Dyana. She would like you to be aware that pt is not currently taking midodrine as the BP has been stayinggood. She also has questions on script for Metoprolol succinate and is asking if the pt should be taking the extended release twice daily? She believes that the med they came home from hospital with was metoprolol tartrate ( the [place] chart does not seem to reflect that. It shows met succ 50 mg twice daily changed from met tart 25 mg tid by Stone Dickerson PA-c with a d/c instruction of 50 mg bid met succ). The met succ script was sent for met succinate 25 mg 1/2 once daily and I believe they are to be doing it twice daily based on you previous instruction. I tried to confirm that with Dyana and she wants this clarified with you. Thanks Cynthia * Telephone Encounter - Camilla Apple OSA - 05/13/2024 4:42 PM EDT Person calling: Dyana Relationship to patient: Spouse Number to return call: [phone] Reason for call: medication question Pharmacy: [facility] [address] [place] [address] [address] Provider Name: Rick Tan DO Detailed message to office: calling for clarification on Metoprolol Succinate. States that at the pharmacy, she picked up 25 MG Extended Release with directions to take 1/2 in the morning. But was previously doing 12.5 MG bid. States that he was doing well on the 12.5 MG bid. States that she would prefer him to be on the 12.5 MG bid as it allows them to track BP more accurately. Requesting call back to discuss tomorrow morning and she states she will not give him the medication tonight. Additionally, has other things that she would like to discuss directly with nurses but declined to provide specifics as she states the medication is the most important topic at this time. * Telephone Encounter - Omaira Trujillo CMA - 05/07/2024 11:33 AM EDT Attempted to contact patient's , Dyana, by phone. No answer, left message on unidentified VM for return call. Also attempted to reach patient's son, Dominic, who answered phone. Advised that [facility] Reviewed new dose/instructions with son. Verbalized understanding. * Telephone Encounter - Rick Tan DO - 05/06/2024 4:31 PM EDT Midodrine prescribed twice daily dosing. * Telephone Encounter - Tasia Chaudhari LPN - 05/06/2024 2:21 PM EDT Pt son and give pt medication 2x day in the morning and evening. is not able to give midodrine 3x a day. Pt is unable to manage his own medication, take medication on his own. Asking if midodrine can be prescribed for just 2x a day. Or if there is another medication. Spoke with emergency contact Dyana by phone, gave information in this encounter. Agreed to plan of care. Has only metoprolol 50mg on hand, new prescription for 25mg pended. * Telephone Encounter - Rick Tan DO - 05/06/2024 8:06 AM EDT Add midodrine 2.5mg TID for treatment of orthostatic hypotension. Reduce metoprolol to 12.5mg BID, hold for SBP leass than 100mmHg. * Telephone Encounter - Tasia Chaudhari LPN - 05/05/2024 4:04 PM EDT See other note in this encounter. Pt was not taking carvedilol and metoprolol together. Carvedilol was d/c in hospital and pt stopped taking. Also, Pt has not had any metoprolol since leaving hospital. On 04/29/24 (day after d/c) bp was "very low" and held metoprolol. Was advised on Monday 04/30 (by after hours) to hold metoprolol for systolic <110 and 80 diastolic BP Readings: Last night: 84/67 and 75/43 standing: feeling very tired, weak, dizzy. Today: 106/66 at [facility]/dialysis Heart rates around 96. 101 at dialysis while standing Asking what they should do with the medication. is concerned giving him even 1/2 dose d/t falls/weakness. Pt lives alone would not be able to get him self up. * Telephone Encounter - Steph Conrad OSA - 05/05/2024 3:57 PM EDT Person calling: Dyana Relationship to patient: Number to return call: [phone] Reason for call(brief): Advice Pharmacy: n/a Provider Name: Dr. Tan Detailed message to office: Patient's Dyana requesting to speak with nurse directly. Dyana states that recently patient has been taking off medication carvedilol because his blood pressure was too low and that Dr. Mckenzieought patient was taking metoprolol at the same time. Dyana states that patient has not taken carvedilol or metoprolol because his blood pressure keeps on being significantly low. Dyana states thatpatient's blood pressure last night was 84/ over something she stated. Dyana would like more advice on what patient should do. Transferring to nurse. documented in this encounter Plan of Treatment Upcoming Encounters Date Type Department Care Team (Latest Contact Info) Description 4 11:20 AM EDT Office Visit Neurology [facility] [address] [place] [address] Carlos Jiménez, DO [address] [place] [address] 4 2:30 PM EDT Office Visit Cardiology, [facility] [address] [place] [address] Maria Guadalupe Pederson PA-C [address] [place] [address] 4 1:00 PM EDT Cardiac Studies Cardiac Studies, [facility] 132 [place] [address] 4 9:45 AM EDT Hospital Encounter [facility], Endoscopy Suite, HFAM 1, [address] [place] [address] Jose Ramon Morgan MD [address] [place] [address] 4 9:45 AM EDT - 4 11:00 AM EDT Surgery ENDO [facility], Endoscopy Suite, HFAM 1, [address] [place] [address] Jose Ramon Morgan MD [address] [place] [address] ESOPHAGOGASTRODUODENOSCOPY (EGD), FLEXIBLE, TRANSORAL, DIAGNOSTIC 12:15 PM EDT Office Visit Cardiology, [facility] 132 [facility] [place] [address] Rosalba Humprhey, [address] [place] [address] 11:30 AM EST Telemedicine Cardiovascular Genetics, [facility] 132 [facility] [place] [address] Kayla Larson, MS 132 [facility] [place] [address] Scheduled Procedures Name Priority Associated Diagnoses Date/Ti me ESOPHAGOGASTRODUODENOSCOPY ( EGD), FLEXIBLE, TRANSORAL, DIAGNOSTIC Dysphagia, unspecified type 07/20/2024 9:45 AM EDT Scheduled Referrals Name Type Priority Associated Diagnoses Orde r Schedule PULMONARY REFERRAL OP Referral Within 3 days (urgent) Aspiration pneumonia of right lower lobe, unspecified aspiration pneumonia type (HCC) Ordered: 05/19/2024 Health Maintenance Due Date Last Done Comments Depression Screening 1957 DTaP,Tdap,and Td Vaccines (1 - Tdap) 1965 COVID-19 Vaccine (2022-2 4 season) 2023 Influenza Vaccine (FLU shot) (#1) 2024 Pneumococcal Vaccine: 65+ Years Completed 05/10/2019, 01/15/2018, 03/22/2013 Zoster Vaccines Completed 05/28/2021, 05/10/2019 Hepatitis C Screening Completed 05/16/2023 , 05/16/2023, 05/16/2023 HPV (Gardasil) Vaccine Aged Out No lo [...] as of this encounter Visit Diagnoses Diagnosis Aspiration pneumonia of right lower lobe, unspecified aspiration pneumonia type (HCC)- Primary Hypotension Hypotension, unspecified Paroxysmal atrial fibrillation (HCC) Atrial fibrillation Dysphagia, unspecified type documented in this encounter Care Teams Engine Assembly Supervisor Relationship Specialty Start Date End Date Debbie Arango MD [address] [facility] [place] [address] PCP - General Internal Medicine 03/04/23 documented as of this encounter
--- OUTSIDE RECORDS SUMMARY | 2024-10-16 13:20 | External Medical Summary | Summary of Care ---
Author Name Unknown Organization [facility] Address [address] [place] [address] Phone [phone] Care Team Providers Care Fraud Investigator Name Role Phone Debbie Arango MD Primary Care Provider Encounter Details Date Type Department Care Team (Latest Contact Info) Description 04/21/2024 10:55 PM EDT - 04/21/2024 11:59 PM EDT Hospital Encounter Radiology Film File [address] [place] [address] Discharge Disposition: Home - Self [...] Description 4 2:15 PM EDT Imaging Radiology [address] [place] [address] 4 2:30 PM EDT Office Visit Cardiology, [facility] 132 [facility] [place] [address] Maria Guadalupe Pederson PA-C [address] [place] [address] 4 1:25 PM EDT NeuroDiagnostic Study Neurophysiolog y [facility] Gi[place]anna [place] [address] [place] [address] Carlos Jiménez, DO [address] [place] [address] 4 1:00 PM EDT Cardiac Studies Cardiac Studies, [facility] 132 [facility] [place] [address] 4 10:45 AM EDT Office Visit Cardiology, [facility] 132 [facility] [place] [address] Rosalba Humphrey, DO 400 [facility] [place], [place] [address] 4 7:30 AM EDT PulmDiagnostic Pulmonary Function Lab, [facility] 132 [facility] [place] [address] [place], Pft 132 [facility] [place] [address] 4 8:00 AM EDT PulmDiagnostic Pulmonary Function Lab, [facility] 132 [facility] [place] [address] [place], [place] 132 [facility] [place] [address] 4 10:20 AM EDT Office Visit Pulmonary Medicine, [facility] 132 [facility] [place] [address] Kumar Noyola MD [address] [facility] [place] [address] 4 9:45 AM EDT Hospital Encounter [facility], Endoscopy Suite, HFAM 1, [address] [place] [address] Jose Ramon Morgan MD [address] [place] [address] 4 9:45 AM EDT - 4 11:00 AM EDT Surgery ENDO [facility], Endoscopy Suite, HFAM 1, [address] [place] [address] Jose Ramon Morgan MD [address] [place] [address] ESOPHAGOGASTRODUODENOSCOPY (EGD), FLEXIBLE, TRANSORAL, DIAGNOSTIC 4 11:30 AM EST [facility] [address] [place] [address] Kayla Larson, MS [address] [place] [address] 4 3:00 PM EST Office Visit Neurology [facility] 200 [facility] [place], [place] [address] Carlos Jiménez, DO 200 [facility] [place], [place] [address] Scheduled Procedures Name Priority Associated Diagnoses Date/Ti [...] Date/Time Associated Diagnosis Comments RADIOLOGY EXAM - GENERAL RAD (IMAGES ONLY,NO REPORT) Routine 04/21/2024 10:55 PM EDT documented in this encounter Results * RADIOLOGY EXAM - GENERAL RAD (IMAGES ONLY,NO REPORT) (04/21/2024 10:55 PM EDT) 04/21/2024 10:5 1 PM EDT Narrative Scheduling, Silent - 05/31/2024 8:25 PM EDT This is an imaging study not interpreted or resulted by a [facility] or [facility] contracted radiologist. Kumar Noyola MD RADIOLOGY (RAD GENERAL) documented in this encounter Care Teams Fraud Investigator Relationship Specialty Start Date End Date Debbie Arango MD [address] [facility] [place] [address] PCP - General Internal Medicine 03/04/23 documented as of this encounter
--- OUTSIDE RECORDS SUMMARY | 2024-10-16 13:20 | External Medical Summary | Summary of Care ---
Author Name Unknown Organization [facility] Address [address] [place] [address] Phone [phone] Care Team Providers Care Lan Administrator Name Role Phone Debbie Arango MD Primary Care Provider Encounter Details Date Type Department Care Team (Late st Contact Info) Description 04/22/2024 Orders Only Pulmonary Medicine Rigo Negrete [address] [phone] Kumar Noyola MD [address] [address] Allergies No known active allergiesdocumented as of this encounter (statuses as of 05/31/2024) Medications Medication Sig Dispensed Refills Start Date [...] as of this encounter (statuses as of 05/31/2024) Active Problems Problem Noted Date Diagnosed Date CKD (chronic kidney disease) stage 5, GFR less than 15 ml/min 05/21/2023 Peripheral vascular disease with claudication HTN, goal below 130/80 05/21/2023 documented as of this encounter (statuses as of 05/31/2024) Social History Tobacco Use Types Packs/Day Years [...] (Latest Contact Info) Description 9:00 AM EDT Imaging Radiology [address] 132 [facility] [place] [address] 4 9:35 AM EDT Imaging Radiology [address] 132 [facility] [place] [address] 4 11:20 AM EDT Office Visit Neurology [facility] [address] [place] [address] Carlos Jiménez, DO [address] [place] [address] 4 2:30 PM EDT Office Visit Cardiology, [facility] 132 [facility] [place] [address] Maria Guadalupe Pederson, ROHINI [address] [place] [address] 4 1:00 PM EDT Cardiac Studies Cardiac Studies, [facility] 132 [facility] [place] [address] 4 10:45 AM EDT Office Visit Cardiology, [facility] 132 [facility] [place] [address] Rosalba Humphrey, DO [address] [place] [address] 4 7:30 AM EDT PulmDiagnostic Pulmonary Function Lab, [facility] 132 [facility] [place] [address] [address], Pft 132 [facility] [place] [address] 4 8:00 AM EDT PulmDiagnostic Pulmonary Function Lab, [facility] 132 [facility] [place] [address] [address], Pft 132 [facility] [place] der[place] [address] 4 10:20 AM EDT Office Visit Pulmonary Medicine, [facility] [place] [address] Kumar Noyola MD [address] [facility] [address] 4 9:45 AM EDT Hospital Encounter [facility], Endoscopy Suite, HFAM 1, [address] [place] [address] Jose Ramon Morgan MD [address] [place] [address] 4 9:45 AM EDT - 4 11:00 AM EDT Surgery ENDO [facility], Endoscopy Suite, HFAM 1, [address] [place] [address] Jose Ramon Morgan MD [address] [place] [address] ESOPHAGOGASTRODUODENOSCOPY (EGD), FLEXIBLE, TRANSORAL, DIAGNOSTIC 4 11:30 AM EST Telemedicine Cardiovascular Genetics, [facility] 132 [facility] [place] [address] Kayla Larson, MS 132 [facility] [place] [address] Scheduled Procedures Name Priority Associated Diagnoses Date/Ti [...] interpreted or resulted by a [facility] or [employer] contracted radiologist. Kumar Noyola MD RAD CT documented in this encounter Care Teams Lan Administrator Relationship Specialty Start Date End Date Debbie Arango MD 2907 [facility] [place] [address] PCP - General Internal Medicine 03/04/23 documented as of this encounter
--- OUTSIDE RECORDS SUMMARY | 2024-10-16 13:20 | External Medical Summary ---
Author Name Unknown Address Unknown Organization K01:LABORATORY [facility] [place] - [address] [facility] [address] Laboratory Report Ordering Provider Test Date Status ANDREEA KENYON 06/01/2024 12:26:54 Final Observation Date Value Abnormality Reference (Units ) Status Erythrocyte sedimentation rate by Photometric method 06/01/2024 12:26:54 20 Above high normal <20 (mm/hour) Final Performing Location LAB[facility]ATORY [facility] - [address] [facility] [address]
--- OUTSIDE RECORDS SUMMARY | 2024-10-16 13:20 | External Medical Summary | Summary of Care ---
Author Name Unknown Organization [facility] Address [address] [place] [address] Phone [phone] Care Team Providers Care Fiscal Agent Name Role Phone Debbie Arango MD Primary Care Provider Reason for Visit * Reason Onset Date Comments Referral 05/11/2024 Encounter Details Date Type Department Care Team (Late st Contact Info) Description 05/11/2024 Telephone Neurology [facility] [place] [address] [place], [place] [id number] Services, Scheduling [address] [place] [address] Referral Allergies No known active allergiesdocumented as [...] Telephone Encounter - Teena Galvan MD - 05/19/2024 5:07 PM EDT Neph nurse pls coordinate w/ [facility] and w/ [facility] to get needed auth for referral * Telephone Encounter - Vivienne Guerra LPN - 05/14/2024 10:00 AM EDT This pt is PD dialysis Per neuro department This referral will need to come from [facility] Spoke with son he is to contact and arrange with Dr Galvan via dialysis to get info to [facility] if needed Dr Mandy SMITH * Telephone Encounter - Vivienne Guerra LPN - 05/12/2024 8:26 AM EDT LMM to return call regarding * Telephone Encounter - Vivienne Guerra LPN - 05/12/2024 8:23 AM EDT Spoke with composite boat builder Needs [facility] referral for this * Telephone Encounter - Kiana Girard OSA - 05/11/2024 1:[address] like Dr Frankel wanted the appt. She had in her last note that she was recommend neurology evaluation for neuropathy/neurodegenerative disorders that may contribute and will order * Telephone Encounter - Alka Ron, MED ASSIST - 05/11/2024 12:39 PM EDT Tereso, have you seen a referral for this patient? I don't see anything in patients chart * Telephone Encounter - Marci Buchanan OSA - 05/11/2024 11:18 AM EDT Who is calling: Dyana (Caregiver; Ex ) Provider patient is established with: Not Est What is the concern or issue they are having: Requesting office to reach out to [facility] in [place] to confirm referral is accepted. Requested ph/ fax of [facility]; "you guys have a different phone number, I don't have a phone number" Patient is scheduled for 06/01/[address] Jiménez Pts phone number for nurse to call back: [phone] documented in this encounter Plan of Treatment Upcoming Encounters Date Type Department Care Team (Latest Contact Info) Description 4 9:00 AM EDT Office Visit Pulmonary Medicine, [facility] [place] [address] Kumar Noyola MD [address] [facility] [place] [address] 4 11:20 AM EDT Office Visit Neurology [facility] 200 [facility] [place] [address] Carlos Jiménez, DO 200 [facility] [place] [address] 4 2:30 PM EDT Office Visit Cardiology, [facility] [address] [place] [address] Maria Guadalupe Pederson PA-C [address] [place] [address] 4 1:00 PM EDT Cardiac Studies Cardiac Studies, [facility] 132 [place] [address] 4 9:45 AM EDT Hospital Encounter [facility], Endoscopy Suite, HFAM 1, [address] [place] [address] Jose Ramon Morgan MD [address] [place], [place] [address] 4 9:45 AM EDT - 4 11:00 AM EDT Surgery [facility], Endoscopy Suite, HFAM 1, [address] [place] [address] Jose Ramon Morgan MD [address] [place], [place] [id number] ESOPHAGOGASTRODUODENOSCOPY (EGD), FLEXIBLE, TRANSORAL, DIAGNOSTIC 4 12:15 PM EDT Office Visit Cardiology, [facility] 132 [place] [address] Rosalba Humphrey Imelda, DO 400 [facility] [place] [address] 4 11:30 AM EST Telemedicine Cardiovascular Genetics, [facility] 132 [facility] [place] [address] Kayla Larson, MS 132 [facility] [place] [address] Scheduled Procedures Name Priority Associated Diagnoses Date/Ti [...] filedocumented as of this encounter Care Teams Fiscal Agent Relationship Specialty Start Date End Date Debbie Arango MD 2907 [facility] [place] [address] PCP - General Internal Medicine 03/04/23 documented as of this encounter
--- OUTSIDE RECORDS SUMMARY | 2024-10-16 13:20 | External Medical Summary | Summary of Care ---
Author Name Unknown Organization [facility] Address [address] [place] [address] Phone [phone] Care Team Providers Care Electroplater Helper Name Role Phone Debbie Arango MD Primary Care Provider Reason for Visit * Reason Onset Date Comments Test Results 04/15/2024 Encounter Details Date Type Department Care Team (Late st Contact Info) Description 04/15/2024 Telephone Cardiology, [facility] [address] [place] [address] Rick Tan O, DO [address] [place] [address] Test Results Allergies No known active allergiesdocumented as of this encounter (statuses as of 05/27/2024) Medications Medication Sig Dispensed Refills Start Date [...] as of this encounter (statuses as of 05/27/2024) Active Problems Problem Noted Date Diagnosed Date CKD (chronic kidney disease) stage 5, GFR less than 15 ml/min 05/21/2023 Peripheral vascular disease with claudication HTN, goal below 130/80 05/21/2023 documented as of this encounter (statuses as of 05/27/2024) Social History Tobacco Use Types Packs/Day Years [...] Telephone Encounter - Tasia Chaudhari LPN - 04/15/2024 3:18 PM EDT No answer, LMOM for pt return call to [phone] Sent my chart, will follow Orders placed * Telephone Encounter - Tasia Chaudhari LPN - 04/15/2024 3:17 PM EDT ----- Message from Rick Tan DO sent at 04/14/2024 4:04 PM EDT ----- Mildly elevated TSH with normal free T4. Recommend repeat TSH with free T4 in 3 months. documented in this encounter Plan of Treatment Upcoming Encounters Date Type Department Care Team (Latest Contact Info) Description 4 9:00 AM EDT Office Visit Pulmonary Medicine, [facility] 132 [facility] [place] [address] Kumar Noyola MD [address] [id number] 4 11:20 AM EDT Office Visit Neurology [facility] [address] [facility] [address] Carlos Jiménez DO 200 [place] [address] 4 2:30 PM EDT Office Visit Cardiology, [facility] 132 [place] [address] Maria Guadalupe Pederson, ROHINI 132 [facility] [place] [address] 4 1:00 PM EDT Cardiac Studies Cardiac Studies, [facility] 132 [place] [address] 4 10:45 AM EDT Office Visit Cardiology, [facility] 132 [place] [address] Rosalba Humphrey, DO 400 [facility] [place] [address] 4 9:45 AM EDT Hospital Encounter [facility], Endoscopy Suite, HFAM 1, [address] [place] [address] Jose Ramon Morgan MD [address] [place] [address] 4 9:45 AM EDT - 4 11:00 AM EDT Surgery [facility], Endoscopy Suite, HFAM 1, [address] [place] [address] Jose Ramon Morgan MD [address] [place], [place] [id number] ESOPHAGOGASTRODUODENOSCOPY (EGD), FLEXIBLE, TRANSORAL, DIAGNOSTIC 4 11:30 AM EST Telemedicine Cardiovascular Genetics, [facility] 132 [facility] [place] [address] Kayla Larson, MS 132 [place] [address] Scheduled Orders Name Type Priority Associated Diagnoses Orde r Schedule TSH Lab Routine Hypertrophic cardiomyopathy (HCC) CKD (chronic kidney disease) stage 5, GFR less than 15 ml/min (HCC) Atypical atrial flutter (HCC) Expected: 07/16/2024 (Approximate), Expires: 04/15/2025 T4, FREE Lab Routine Hypertrophic cardiomyopathy (HCC) CKD (chronic kidney disease) stage 5, GFR less than 15 ml/min (HCC) Atypical atrial flutter (HCC) Expected: 07/16/2024 (Approximate), Expires: 04/15/2025 Scheduled Procedures Name Priority Associated Diagnoses Date/Ti [...] Hypertrophic cardiomyopathy (HCC)- Primary Other hypertrophic cardiomyopathy CKD (chronic kidney disease) stage 5, GFR less than 15 ml/min (HCC) Chronic kidney disease, Stage V Atypical atrial flutter (HCC) Atrial flutter Dysphagia, unspecified type documented in this encounter Care Teams Electroplater Helper Relationship Specialty Start Date End Date Debbie Arango MD 2907 [facility] [place] [address] PCP - General Internal Medicine 03/04/23 documented as of this encounter
--- OUTSIDE RECORDS SUMMARY | 2024-10-16 13:20 | External Medical Summary ---
Author Name Unknown Address Unknown Organization K01:LAB[facility]ATORY [facility] [place] - [facility] [address] [facility] [address] [facility] [address] Laboratory Report Ordering Provider Test Date Status ANDREEA KENYON 06/01/2024 12:26:54 Final Observation Date Value Abnormality Reference (Units ) Status Borrelia burgdorferi IgG and IgM [Interpretation] in Serum by Immunoassay 06/01/2024 12:26:54 Negative Negative Final Performing Location [facility]ORY [facility] - [address] [facility] [address]
--- OUTSIDE RECORDS SUMMARY | 2024-10-16 13:20 | External Medical Summary ---
Author Name Unknown Address Unknown Organization : Laboratory Report Ordering Provider Test Date Status ANDREEA KENYON 06/01/2024 12:26:54 Final Observation Date Value Abnormality Reference (Units ) Status Pyridoxal phosphate [Mass/volume] in Serum or Plasma 06/01/2024 12:26:54 24.0 Above high normal 2.1-21.7 (ng/mL) Final Vitamin supplementation with in 24 hours prior to
blood draw may affect the accuracy of the results.
This test was developed and its analytical performance
characteristics have been determined by [facility] [place], [place]. It has
not been cleared or approved by the U.S. Food and Drug
Administration. This assay has been validated pursuant
to the CLIA regulations and is used for clinical
purposes.

Test Performed at:
[facility]
[address] [facility]
[place] [address]
Sky Burger M.D., Ph.D.,Director of Laboratories Performing Location
--- OUTSIDE RECORDS SUMMARY | 2024-10-16 13:20 | External Medical Summary ---
Author Name Unknown Address Unknown Organization K01:[facility]ATORY [facility] [place] - [address] [place] [address] Laboratory Report Ordering Provider Test Date Status ANDREEA KENYON 06/01/2024 12:26:54 Final Observation Date Value Abnormality Reference (Units ) Status CK 06/01/2024 12:26:54 838 Above high normal 39 -308 (U/L) Final Performing Location LABORATORY C - [address] [facility] [place] [address]
--- OUTSIDE RECORDS SUMMARY | 2024-10-16 13:20 | External Medical Summary ---
Author Name Unknown Address Unknown Organization K01:LABORATORY [facility] - [address] [place] [id number] Laboratory Report Ordering Provider Test Date Status ANDREEA KENYON 06/01/2024 12:26:54 Final Observation Date Value Abnormality Reference (Units ) Status Folic Acid 06/01/2024 12:26:54 >20.0 >4.5 (ng/ mL) Final Performing Location LABORATORY [facility] - [address] [place] [id number]
--- OUTSIDE RECORDS SUMMARY | 2024-10-16 13:20 | External Medical Summary | Summary of Care ---
Author Name Unknown Organization [facility] Address [address] [place] [address] Phone [phone] Care Team Providers Care Neurology Professor Name Role Phone Debbie Arango MD Primary Care Provider Reason for Visit * Reason Onset Date Comments Appointment 05/31/2024 Encounter Details Date Type Department Care Team (Late st Contact Info) Description 05/31/2024 Telephone Pulmonary Medicine Rigo Negrete [address] [phone] Kumar Noyola MD [address] [address] Appointment Allergies No known active allergiesdocumented as [...] the morning. 45 Tablet 3 05/06/2024 Active Hospital, Clinic, or Other Facility Administered [...] 4:40 PM EDT Sexual Orientation Straight 04/01/2023 4 :40 PM EDT Job Start Date Occupation Industry Not on file Not on file Not on file documented as of this encounter Miscellaneous Notes * Telephone Encounter - Tawnya Reyes OSA - 05/31/2024 5:[address] Chest scheduled on 06/01/24 PFT and 6mw scheduled on 07/06/[address] Noyola scheduled on 07/08/24 * Telephone Encounter - Mylene Benavides LPN - 05/31/2024 12:53 PM EDT Please set up pulm testing. NPO has been sent to * Telephone Encounter - Vale Xiong OSA - 05/31/2024 10:16 AM EDT Nocturnal Home Study Please call to schedule documented in this encounter Plan of Treatment Upcoming Encounters Date Type Department Care Team (Latest Contact Info) Description 9:00 AM EDT Imaging Radiology [facility] [place] 132 [facility] [place] [address] 4 9:35 AM EDT Imaging Radiology [facility]st [facility] [address] [place] [address] 4 11:20 AM EDT Office Visit Neurology [facility] [address] [place] [address] Carlos Jiménez, DO [address] [place] [address] 4 2:30 PM EDT Office Visit Cardiology, [facility] [address] [place] [address] Maria Guadalupe Pederson, ROHINI [address] [place] [address] 4 1:00 PM EDT Cardiac Studies Cardiac Studies, [facility] [place] [address] 4 10:45 AM EDT Office Visit Cardiology, [facility] 132 [facility] [place] [address] Rosalba Humphrey, DO 400 [facility] [place] [address] 4 7:30 AM EDT PulmDiagnostic Pulmonary Function Lab, [facility] [place] [address] West, [address]ft 132 [facility] [place] [address] 4 8:00 AM EDT PulmDiagnostic Pulmonary Function Lab, [facility] 132 [facility] [place] [address] West, Pft 132 [facility] [place] [address] 4 10:20 AM EDT Office Visit Pulmonary Medicine, [facility] 132 [facility] [place] ST[place] [address] Kumar Noyola MD [address] [facility] [place] [address] 4 9:45 AM EDT Hospital Encounter [facility], Endoscopy Suite, HFAM 1, [address] [place] [address] Jose Ramon Morgan MD [address] [place] [address] 4 9:45 AM EDT - 4 11:00 AM EDT Surgery [facility], Endoscopy Suite, HFAM 1, [address] [place] [address] Jose Ramon Morgan MD [address] [place] [address] ESOPHAGOGASTRODUODENOSCOPY (EGD), FLEXIBLE, TRANSORAL, DIAGNOSTIC 4 11:30 AM EST Telemedicine Cardiovascular Genetics, [facility] 132 [facility] [place] [address] Kayla Larson, MS 132 [facility] [place] [address] Scheduled Procedures Name Priority Associated Diagnoses Date/Ti [...] filedocumented as of this encounter Care Teams Neurology Professor Relationship Specialty Start Date End Date Debbie Arango MD 2907 [facility] [place] [address] PCP - General Internal Medicine 03/04/23 documented as of this encounter
--- OUTSIDE RECORDS SUMMARY | 2024-10-16 13:20 | External Medical Summary | Summary of Care ---
Author Name Unknown Organization [facility] Address [address] [place] [address] Phone [phone] Care Team Providers Care Materials Buyer Name Role Phone Debbie Arango MD Primary Care Provider Encounter Details Date Type Department Care Team (Late st Contact Info) Description 04/21/2024 Orders Only Pulmonary Medicine Rigo Negrete [address] [phone] Kumar Noyola MD [address] [address] Allergies No known active allergiesdocumented as of [...] Info) Description 9:00 AM EDT Imaging Radiology [facility] 132 [facility] [place] [address] 4 9:35 AM EDT Imaging Radiology [address] [facility] [place] [address] 4 11:20 AM EDT Office Visit [facility]rology [facility] [address] [place] [address] Carlos Jiménez, DO [address] [place] [address] 4 2:30 PM EDT Office Visit Cardiology, [facility] 132 [facility] [place] [address] Maria Guadalupe Pederson, ROHINI [address] [place] [address] 4 1:00 PM EDT Cardiac Studies Cardiac Studies, [facility] 132 [facility] [place] [address] 4 10:45 AM EDT Office Visit Cardiology, [facility] 132 [facility] [place] [address] Rosalba Humphrey, DO [address] [place] [address] 4 7:30 AM EDT PulmDiagnostic Pulmonary Function Lab, [facility] 132 [facility] [place] [address] West, Pft 132 [facility] [place] [address] 4 8:00 AM EDT PulmDiagnostic Pulmonary Function Lab, [facility] 132 [facility] [place] [address] West, Pft 132 [facility] [place] der[place] [address] 4 10:20 AM EDT Office Visit Pulmonary Medicine, [facility] 132 [facility] [place] [address] Kumar Noyola MD [address] [facility] [address] 4 9:45 AM EDT Hospital Encounter [facility] Endoscopy Suite, HFAM 1, [address] [place] [address] Jose Ramon Morgan MD [address] [place] [address] 4 9:45 AM EDT - 4 11:00 AM EDT Surgery [facility], Endoscopy Suite, HFAM 1, [address] [place] [address] Jose Ramon Morgan MD [address] [place] [address] ESOPHAGOGASTRODUODENOSCOPY (EGD), FLEXIBLE, TRANSORAL, DIAGNOSTIC 4 11:30 AM EST Telemedicine Cardiovascular Genetics, [facility] 132 [facility] [place] [address] Kayla Larson, MS [address] [facility] [place] [address] Scheduled Procedures Name Priority Associated Diagnoses Date/Ti [...] study not interpreted or resulted by a [facility] contracted radiologist. Kumar Noyola MD RADIOLOGY (RAD GENERAL) documented in this encounter Care Teams Materials Buyer Relationship Specialty Start Date End Date Debbie Arango MD 2907 [facility] [place] [address] PCP - General Internal Medicine 03/04/23 documented as of this encounter
--- OUTSIDE RECORDS SUMMARY | 2024-10-16 13:20 | External Medical Summary ---
Author Name Unknown Address Unknown Organization : Laboratory Report Ordering Provider Test Date Status ANDREEA KENYON 06/01/2024 12:26:54 Final Observation Date Value Abnormality Reference (Units ) Status REFERENCE LAB SCANNED REPORT 06/01/2024 12:26:54 RESULT SCAN Final Performing Location
--- OUTSIDE RECORDS SUMMARY | 2024-10-16 13:20 | External Medical Summary ---
Author Name Unknown Address Unknown Organization K01:[facility] [address] [facility] [address] Laboratory Report Ordering Provider Test Date Status ANDREEA KENYON 06/01/2024 12:26:54 Final Observation Date Value Abnormality Reference (Units) Status PARAPROTEIN NORMAL/ABNORMAL 06/01/2024 12:26:54 Abnormal Abnormal Normal Final Immunofixation for Serum or Plasma 06/01/2024 12:26:54 Abnormal, a monoclonal IgG lambda gammopathy is present. Final Performing Location [facility] [place] [address] [place] [address]
--- OUTSIDE RECORDS SUMMARY | 2024-10-16 13:20 | External Medical Summary | Summary of Care ---
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) Procedures CT HEAD/BRAIN WO CONTRAST Carlos Jiménez DO [address] [place] [address] Referral ID Status Reason Start Date Expiration Date V isits Requested Visits Authorized [id number] Authorized Precert 05/14/2024 11/28/2024 999 999 Reason for Visit * Reason Comments NEW PATIENT * Evaluate & Treat - Unlimited Visits (Within 10 days (routine)) - Pending Review Specialty Diagnoses / Procedures Referred By Contmorgan t Referred To Contact Neurology Diagnoses Orthostatic hypotension Teena Galvna MD [address] [facility] [place] [address] Referral ID Status Reason Start Date Expiration Date Visits Requested Visits Authorized [id number] Pending Review Specialty Services Required 04/07/2024 999 [id number] Encounter Details Date Type Department Care Team (Late st Contact Info) Description 06/01/2024 11:20 AM EDT Office Visit Neurology [employer] [address] [place] [address] Carlos Jiménez, [address] [facility] [place] [address] Axonal sensorimotor neuropathy*; Ataxia; 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) Allergies No known active allergiesdocumented as [...] Sign Reading Time Taken Comments Blood Pressure 102/68 06/01/2024 11:23 AM EDT Pulse 60 06/01/2024 11:23 AM EDT Temperature 36.6 C (97.9 F) 06/01/2024 11:23 AM E DT Respiratory Rate 18 06/01/2024 11:23 AM EDT Oxygen Saturation 98% 06/01/2024 11:23 AM EDT Inhaled Oxygen Concentration - - Weight 85.9 kg (189 lb 4.8 oz) 06/01/2024 11:23 AM EDT Height - - Body Mass Index 28.79 05/31/2024 9:17 AM EDT documented in this encounter Progress Notes * Carlos Jiménez, DO - 06/01/2024 11:41 AM EDT HISTORY AND PHYSICAL EXAMINATION [place] [address] NAME: Monster Samson Date of : 1945 Date of Visit: 06/01/24 Chief Complaint: Chief Complaint Patient presents with NEW PATIENT HPI: A 78-year-old male with a history of AFib on Coumadin, chronic kidney disease, chronic tobaccouse, and chronic alcohol use referred for evaluation of orthostatic hypotension. Patient presents today with the son. He has been following with Nephrology for peritoneal dialysis. In March was noted to have marked orthostatic hypotension. His blood pressure medications were modified. He ambulates with a 4 point walker. He has also noticed increased weakness in his legs. He he drinks alcohol weekly. He is a chronic smoker. He is on Coumadin. He does have numbness in both feet. No history of stroke. No recent CT head imaging. Has been unable to schedule MRI imaging due to possible metallic objec t. He does have a history of polio. HOME MEDICATIONS : Current Outpatient Medications Medication [...] once daily . Vitamin D 50 MCG (1999 UT) Oral Capsule Take 2,000 Units by mouth in the morning. Midodrine HCl 2.5 MG Oral Tablet (Proamatine) Take 1 Tablet by mouth in the morning and 1 Tablet before bedtime. 180 Tablet 3 Metoprolol Succinate ER 25 MG Oral Tablet Extended Release 24 Hour (toPROL XL) Take 0.5 Tablets by mouth in the morning. 45 Tablet 3 Current Facility-Administered Medications Medication Dose Route Frequency Provider Last Rate Last Admin Albuterol Sulfate (Proventil) (5 MG/ML) 0.5% *conc* inhalation solution 2.5 mg 2.5 mg Nebulizer PRN Albuterol Sulfate (Proventil) (2.5 MG/3ML) 0.083% inhalation solution 2.5 mg 2.5 mg Nebulizer PRN Review of patient's allergies indicates: No Known Allergies No past medical history on file. Past Surgical History: Procedure Laterality Date BOTULINUMTOXIN A (DEREK), 1 UNIT, INJ. N/A 02/03/2024 INJECTION, ONABOTULINUMTOXIN A, 1 UNIT (BOTOX) performed by Salena العلي MD at OR [facility] EGD, FLEXIBLE, DIAGNOSTIC N/A 02/03/2024 ESOPHAGOGASTRODUODENOSCOPY (EGD), FLEXIBLE, TRANSORAL, DIAGNOSTIC performed by Raffaele العلي MD at OR [facility] Family History Problem Relation Name Age of Onset Other (accidental overdose-) Mother Diabetes Father Social History Socioeconomic History Marital status: Spouse [...] on file Housing Stability: Not on file ROS: Negative except as noted above in the HPI PHYSICAL EXAMINATION: Vital Signs: BP 102/68 (BP Site: Right Arm, BP Position: Sitting, BP Cuff Size: Regular) | Pulse 60 | Temp 36.6 C (97.9 F) (Tympanic) | Resp 18 | Wt 85.9 kg (189 lb 4.8 oz) | SpO2 98% | BMI 28.79 kg/m | BSA2.03 m EXAM: Constitutional: Appears stated age, chronically [...] Wide-based shuffling gait Coordination: Intention tremor with [id number] testing Sensory: Reduced vibration in both feet Muscle Tone: Rigidity predominantly in the right upper extremity Muscle exam: Proximal lower extremity weakness particularly in both legs with difficulty getting upfrom a seated position Reflexes: Brisk at both knees, absent at both ankles LABORATORY: Labs reviewed and pertinent findings are indicated below: Component Latest Ref Rng 02/03/2024 03/31/2024 BUN 6 - 20 mg/dL 34 (H) Creatinine 0.6 - 1.2 mg/dL 6.4 (H) Estimated Glomerular Filtration Rate >=60 mL/min 8 (L) Sodium 135 - 146 mmol/L 135 Potassium 3.5 - 5.1 mmol/L 4.5 Chloride 98 - 107 mmol/L 92 (L) CO2 22 - 32 mmol/L 21 (L) Anion Gap 7 - 15 mmol/L 22 (H) Glucose 70 - 120 mg/dL 134 (H) Albumin 3.8 - 5.0 g/dL 3.6 (L) AST 10 - 50 U/L 32 Alkaline Phosphatase 35 - 130 U/L 80 Bilirubin, Total <=1.2 mg/dL 0.3 Calcium 8.4 - 10.2 mg/dL 9.5 Protein 6.0 - 8.3 g/dL 5.9 (L) Protein 6.0 - 8.3 g/dL 5.9 (L) [...] fL 10.8 nRBCs <=0 /100 WBCs 0 Normal/Abnormal Normal Abnormal ! Albumin 3.30 - 4.40 g/dL 2.68 (L) Alpha-1 Globulin 0.10 - 0.30 g/dL 0.24 Alpha-2 Globulin 0.60 - 1.00 g/dL 1.13 (H) Beta-Globulin 0.80 - 1.30 g/dL 0.75 (L) Gamma-Globulin 0.70 - 1.70 g/dL 1.10 Electrophoresis Interpretation Abnormal. A paraprotein is present that has been previously identified as a monoclonal IgG lambda. Paraprotein concentration is detectable, but less than 0.5 g/dL, unable to be accurately quantified by this method. IgG 700 - 1,600 mg/dL 994 IgA 70 - 400 mg/dL 166 IgM 40 - 230 mg/dL 161 [place] Free Light Chains, Serum 3.30 - 19.40 mg/L 119.60 (H) Lambda Free Light Chains, Serum 5.71 - 26.30 mg/L 117.88 (H) [place] Lambda Free Light Chains Ratio 0.26 - 1.65 1.01 Prothrombin Time 11.6 - 15.2 seconds 15.4 (H) INR 0.8 - 1.2 1.2 T4, Free 0.9 - 1.7 ng/dL TSH 0.27 - 4.20 uIU/mL Referred Test, [facility] Component Latest Ref Rng 04/08/2024 BUN 6 - 20 mg/dL 32 (H) Creatinine 0.6 - 1.2 mg/dL 6.7 (H) Estimated Glomerular Filtration Rate >=60 mL/min 8 (L) Sodium 135 - 146 mmol/L 133 (L) Potassium 3.5 - 5.1 mmol/L 4.4 Chloride 98 - 107 mmol/L 91 (L) CO2 22 - 32 mmol/L 29 Anion Gap 7 - 15 mmol/L 13 Glucose 70 - 120 mg/dL 80 Albumin 3.8 - 5.0 g/dL AST 10 - 50 U/L Alkaline Phosphatase 35 - 130 U/L Bilirubin, Total <=1.2 mg/dL Calcium 8.4 - 10.2 mg/dL 9.0 Protein 6.0 - 8.3 g/dL Protein 6.0 - 8.3 g/dL ALT 10 - 50 U/L WBC 4.00 - 10.80 K/uL Neutrophils % 40.0 - 75.0 % Lymphocytes % 18.0 - 42.0 % Monocytes % 1.0 - 11.0 % Eosinophils % 0.0 - 6.0 % Basophils % 0.0 - 2.0 % Immature Granulocytes % 0.0 - 2.0 % Absolute Neutrophils 1.80 - 7.70 K/uL Absolute Lymphocytes 1.00 - 4.80 K/ul Absolute Monocytes 0.00 - 1.10 K/uL Absolute Eosinophils 0.00 - 0.70 K/uL Absolute Basophils 0.00 - 0.20 K/uL Absolute Immature Granulocytes 0.00 - 0.20 K/uL WBC 4.00 - 10.80 K/uL RBC 4.50 - 5.25 M/uL HGB 14.0 - 16.8 g/dL HCT 40.0 - 48.4 % MCV 82.0 - 99.5 fL MCH 27.0 - 34.0 pg MCHC 32.0 - 36.0 g/dL RDW 11.5 - 15.5 % PLT 140 - 400 K/uL MPV 6.6 - 11.1 fL nRBCs <=0 /100 WBCs Normal/Abnormal Normal Albumin 3.30 - 4.40 g/dL Alpha-1 Globulin 0.10 - 0.30 g/dL Alpha-2 Globulin 0.60 - 1.00 g/dL Beta-Globulin 0.80 - 1.30 g/dL Gamma-Globulin 0.70 - 1.70 g/dL Electrophoresis Interpretation IgG 700 - 1,600 mg/dL IgA 70 - 400 mg/dL IgM 40 - 230 mg/dL [place] Free Light Chains, Serum 3.30 - 19.40 mg/L Lambda Free Light Chains, Serum 5.71 - 26.30 mg/L [place] Lambda Free Light Chains Ratio 0.26 - 1.65 Prothrombin Time 11.6 - 15.2 seconds INR 0.8 - 1.2 T4, Free 0.9 - 1.7 ng/dL 1.6 TSH 0.27 - 4.20 uIU/mL 8.42 (H) Referred Test, [facility] Flexitest 1 ! Legend: (H) High (L) Low ! Abnormal Review of prior Diagnostic Tests: Review of prior Radiology Studies: IMPRESSION / PLAN: Monster was seen today for new patient. Diagnoses and all orders for this visit: Axonal sensorimotor neuropathy - VITAMIN B12 - FOLIC ACID - SERUM IMMUNOFIXATION - LYME DISEASE ANTIBODY SCREEN WITH REFLEX TO CONFIRMATION - CK - VITAMIN B6, PLASMA - CT HEAD/BRAIN WO CONTRAST - ERYTHROCYTE SEDIMENTATION RATE (ESR) - VITAMIN B1 (THIAMINE), BLOOD, LC/MS/MS - EMG - HEMOGLOBIN A1C - EXTENDED MYOSITIS PANEL; Future Ataxia - VITAMIN B12 - FOLIC ACID - SERUM IMMUNOFIXATION - LYME DISEASE ANTIBODY SCREEN WITH REFLEX TO CONFIRMATION - CK - VITAMIN B6, PLASMA - CT HEAD/BRAIN WO CONTRAST - ERYTHROCYTE SEDIMENTATION RATE (ESR) - VITAMIN B1 (THIAMINE), BLOOD, LC/MS/MS - EMG - HEMOGLOBIN A1C - EXTENDED MYOSITIS PANEL; Future 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 Will arrange for a CTA of the head to evaluate for secondary causes of parkinsonism, including vascular disease. Will arrange for additional labs for neuropathy as well as a CK level and myositis panel given the increased weakness particularly proximally in the lower extremities. Will arrange for a follow-up EMG given the peripheral neuropathy. I will plan to see the patient back in 3-4 months. Thank you for allowing me to participate in his care. Carlos Jiménez DO documented in this encounter Nursing Notes * Gris Pearson LPN - 06/01/2024 11:22 AM EDT Patient verified identity by spelling of last name and date. Chief Complaint Patient presents with NEW PATIENT documented in this encounter Plan of Treatment Upcoming Encounters Date Type Department Care Team (Latest Contact Info) Description 4 2:15 PM EDT Imaging Radiology [facility] 1st Floor, [place] [address] [place] [address] 4 2:30 PM EDT Office Visit Cardiology, [facility] [address] [place] [id number] Maria Guadalupe Pederson PA-C 132 [facility] [place] [address] 4 1:25 PM EDT NeuroDiagnostic Study Neurophysiolog y [facility] [address] [place], [place] [address] Carlos Jiménez, DO [address] [place], [place] [address] 4 1:00 PM EDT Cardiac Studies Cardiac Studies, [facility] 132 [facility] [place] [address] 4 10:45 AM EDT Office Visit Cardiology, [facility] 132 [facility] [place] [address] Rosalba Humphrey, DO [address] [place] [address] 4 7:30 AM EDT PulmDiagnostic Pulmonary Function Lab, [facility] [address] [facility] [place] [address] [address] [facility] [place] [address] 4 8:00 AM EDT PulmDiagnostic Pulmonary Function Lab, [facility] 132 [facility] [place] [address] [address] 132 [facility] [place] [address] 4 10:20 AM EDT Office Visit Pulmonary Medicine, [facility] [address] [facility] [place] [address] Kumar Noyola MD [address] [place] [address] 4 9:45 AM EDT Hospital En[place] [facility] [place] End[place] Suite, HFAM 1, [address] [place] [address] Jose Ramon Morgan MD [address] [place] [address] 4 9:45 AM EDT - 4 11:00 AM EDT Surgery [place] [facility] [place] Endoscopy Suite, [address]AM 1, [address] [place] [address] Jose Ramon Morgan MD [address] [place] [address] ESOPHAGOGASTRODUODENOSCOPY (EGD), FLEXIBLE, TRANSORAL, DIAGNOSTIC 4 11:30 AM EST Telemedicine Cardiovascular Genetics, [facility] [address] [place] [address] Kayla Larson, MS [address] [place] [address] 4 3:00 PM EST Office Visit Neurology [facility] [address] [place] [address] Carlos Jiménez, DO [address] [place], [place] [address] Pending Results Name Type Priority Associated Diagnoses Date /Time VITAMIN B12 Lab Routine 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) 06/01/2024 12:26 PM EDT EXTENDED MYOSITIS PANEL Lab Routine 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) 06/01/2024 12:26 PM EDT LYME DISEASE ANTIBODY SCREEN Lab Routine 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) 06/01/2024 12:26 PM EDT Scheduled Orders Name Type Priority Associated Diagnoses Orde r Schedule CT HEAD/BRAIN WO CONTRAST Medical Imaging Routine 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) Ordered: 06/01/2024 EXTENDED MYOSITIS PANEL Lab Routine 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
--- OUTSIDE RECORDS SUMMARY | 2024-10-16 13:20 | External Medical Summary | Summary of Care ---
Author Name Unknown Organization [facility] Address [address] [place] [address] Phone [phone] Care Team Providers Care Medicaid Eligibility Specialist Name Role Phone Debbie Arango MD Primary Care Provider Encounter Details Date Type Department Care Team (Late st Contact Info) Description 04/22/2024 Orders Only Pulmonary Medicine Rigo Negrete [address] [place] [phone] Kumar Noyola MD [address] [place] [address] Allergies No known active allergiesdocumented as of [...] Info) Description 9:00 AM EDT Imaging Radiology [address] [facility] [place] [address] 4 9:35 AM EDT Imaging Radiology [address] [facility] [place] [address] 4 11:20 AM EDT Office Visit [facility] [address] [place] [address] Carlos Jiménez, DO [address] [place] [address] 4 2:30 PM EDT Office Visit Cardiology, [facility] 132 [facility] [place] [address] Maria Guadalupe Pederson, ROHINI [address] [place] [address] 4 1:00 PM EDT Cardiac Studies Cardiac Studies, [facility] 132 [facility] [place] [address] 4 10:45 AM EDT Office Visit Cardiology, [facility] 132 [facility] [place] [address] Rosalba Humphrey, DO [address] [place] [address] 4 7:30 AM EDT PulmDiagnostic Pulmonary Function Lab, [facility] 132 [facility] [place] [address] [address] 132 [facility] [place] [address] 4 8:00 AM EDT PulmDiagnostic Pulmonary Function Lab, [facility] [address] [facility] [place] [address] [address] 132 [facility] [place] [address] 4 10:20 AM EDT Office Visit Pulmonary Medicine, [facility] [place] [address] Kumar Noyola [facility] [address] [facility] [address] 4 9:45 AM EDT Hospital Encounter [facility] [place], Endoscopy Suite, HFAM 1, [address] [place] [address] Jose Ramon Morgan MD [address] [place] [address] 4 9:45 AM EDT - 4 11:00 AM EDT Surgery ENDO [facility], Endoscopy Suite, HFAM 1, [address] [place] [address] Jose Ramon Morgan MD [address] [place] [address] ESOPHAGOGASTRODUODENOSCOPY (EGD), FLEXIBLE, TRANSORAL, DIAGNOSTIC 4 11:30 AM EST Telemedicine Cardiovascular Genetics, [facility] 132 [facility] [place] [address] Kayla Larson, MS 132 [place] [address] Scheduled Procedures Name Priority Associated Diagnoses Date/Ti [...] interpreted or resulted by a [facility] or [employer] contracted radiologist. Kumar Noyola MD RAD CT documented in this encounter Care Teams Medicaid Eligibility Specialist Relationship Specialty Start Date End Date Debbie Arango MD [address] [facility] [place] [address] PCP - General Internal Medicine 03/04/23 documented as of this encounter
--- OUTSIDE RECORDS SUMMARY | 2024-10-16 13:20 | External Medical Summary | Summary of Care ---
Author Name Unknown Organization [facility] Address [address] [place] [address] Phone [phone] Care Team Providers Care Transfer Iron Operator Name Role Phone Debbie Arango MD Primary Care Provider Reason for Referral * Precert (Within 10 days (routine)) - Authorized Specialty Diagnoses / Procedures Referred By Contac t Referred To Contact Radiology Diagnoses Dyspnea and respiratory abnormalities Chronic cough Procedures CT CHEST WO CONTRAST Kumar Noyola MD [address] [place] [address] Referral ID Status Reason Start Date Expiration Date V isits Requested Visits Authorized [id number] Authorized Precert 05/10/2024 11/27/2024 999 999 Reason for Visit * Reason Comments NEW PATIENT Here new pulm. Refer red by cardiopulmonary. A-Fib.Easily SOB. 1 mo ago aspiration pneumonia. R lower lobe. * Evaluate & Treat - Unlimited Visits (Within 30 days (routine)) - Authorized Specialty Diagnoses / Procedures Referred By Contac t Referred To Contact Pulmonary Diagnoses Dyspnea, unspecified Procedures Eval and treat Deirdre Sauceda CRNP [address] [place] [address] Referral ID Status Reason Start Date Expiration Date Visits Requested Visits Authorized [id number] Authorized Specialty Services Required 05/10/2024 11/27/2024 999 999 Encounter Details Date Type Department Care Team (Late st Contact Info) Description 05/31/2024 9:00 AM EDT Office Visit Pulmonary Medicine, [facility] 132 [facility] [place] [address] Kumar Noyola MD [address] [facility] [place] [phone] Dyspnea and respiratory abnormalities*; Chronic cough Allergies [...] Sign Reading Time Taken Comments Blood Pressure 110/70 05/31/2024 9:17 AM EDT Pulse 95 05/31/2024 9:17 AM EDT Temperature 36.3 C (97.3 F) 05/31/2024 9:17 AM ED T Respiratory Rate 16 05/31/2024 9:17 AM EDT Oxygen Saturation 98% 05/31/2024 9:17 AM EDT ra-amb Inhaled Oxygen Concentration - - Weight 84.8 kg (187 lb) 05/31/2024 9:17 AM EDT Height 172.7 cm (5' 7.99") 05/31/2024 9:17 AM ED T Body Mass Index 28.44 05/31/2024 9:17 AM EDT documented in this encounter Progress Notes * Kumar Noyola MD - 05/31/2024 9:45 AM EDT 05/31/2024 Pulmonary Medicine, [address] [place] [id number] Monster Samson 1945 male 78 year old Attending Physician Documentation: 78 yo [employer] 35 py smoking, Quit 2 years ago [employer] CKD, on PD PAF HTN Esophageal Achalasia, s/p dilatation AFib/RVR, + ? Asp [facility] 03/2024 Multifactorial Dyspnea. Denies productive cough, wheezing. Denies difficulty with solids or liquidsexcept episodic regurgitation. Undergoing GI evaluation for esophageal stretching. Physical examination: Elderly male, no apparent distress Class 3 throat No JVD Adequate air entry, scattered rhonchi, no dullness Soft, nontender abdomen No lower extremity edema Nonlateralizing Neuro examination Assessment 78 yo [employer] 35 py smoking, Quit 2 years ago [employer] CKD, on PD PAF HTN Esophageal Achalasia, s/p dilatation AFib/RVR, + ? Asp PNA [facility] 03/2024 Multifactorial Dyspnea Follow-up: Return in about 4 weeks (around 06/28/2024). | Check-out note: 78 yo [employer] 35 py smoking, Quit 2 years ago [employer] CKD, on PD PAF HTN Esophageal Achalasia, s/p dilatation AFib/RVR, + ? Asp PNA [facility] 03/2024 Multifactorial Dyspnea PFT [address] Chest Noncontrast F/u 4 weeks Kumar Noyola MD Subjective CC: Chief Complaint Patient presents with NEW PATIENT Here new pulm. Referred by cardiopulmonary. A-Fib.Easily SOB. 1 mo ago aspiration pneumonia. R lower lobe. HPI: Nursing Notes: Angela Peter LPN 05/31/24 0926 Signed Chief Complaint Patient presents with NEW PATIENT Here new pulm. Referred by cardiopulmonary. A-Fib.Easily SOB. 1 mo ago aspiration pneumonia. R lower lobe. Interm History/Respiratory Symptoms Cough: yes-clear Hemoptysis: no Sinus Symptoms: no Hospitalizations: Fall-aspiration pneumonia. R lower lobe-04/12 ED Trips: 04/12 Triggers: no Nocturnal: sleeps with head elevated CPAP/BiPAP/O2: no DME Supplier: no Flu Vaccine: none Pneumovax: none Prevnar: none COVID 19: x4. MMRC Dyspnea Scale = 4 (I am too breathless to leave the house or I am breathless when dressing) Objective Filed Vitals: 05/31/24 0917 BP: 110/70 Pulse: 95 Resp: 16 Temp: 36.3 C (97.3 F) TempSrc: Tympanic SpO2: 98% Weight: 84.8 kg (187 lb) Height: 1.727 m (5' 7.99") Exam: Const: No signs of acute distress [...] is normal. Tests reviewed with the patient: XR ABDOMEN 1 VIEW Result Date: 05/25/2024 [...] were discussed with the patient. HOME MEDICATIONS: Metoprolol Succinate ER 25 MG Oral Tablet [...] performed by Salena العلي MD at OR [facility] EGD, FLEXIBLE, DIAGNOSTIC N/A 02/03/2024 ESOPHAGOGASTRODUODENOSCOPY (EGD), FLEXIBLE, TRANSORAL, DIAGNOSTIC performed by Raffaele العلي MD at OR [facility] Social History Socioeconomic History Marital status: Tobacco [...] Nursing Notes * Angela Peter LPN - 05/31/2024 9:19 AM EDT Chief Complaint Patient presents with NEW PATIENT Here new pulm. Referred by cardiopulmonary. A-Fib.Easily SOB. 1 mo ago aspiration pneumonia. R lower lobe. Interm History/Respiratory Symptoms Cough: yes-clear Hemoptysis: no Sinus Symptoms: no Hospitalizations: Fall-aspiration pneumonia. R lower lobe-04/12 ED Trips: 04/12 Triggers: no Nocturnal: sleeps with head elevated CPAP/BiPAP/O2: no DME Supplier: no Flu Vaccine: none Pneumovax: none Prevnar: none COVID 19: x4. MMRC Dyspnea Scale = 4 (I am too breathless to leave the house or I am breathless when dressing) documented in this encounter Plan of Treatment Upcoming Encounters Date Type Department Care Team (Latest Contact Info) Description 4 9:00 AM EDT Imaging Radiology [address] 132 [facility] [place] [address] 4 9:35 AM EDT Imaging Radiology [address] 132 [facility] [place] [address] 4 11:20 AM EDT Office Visit Neurology [facility] [address] [place] [address] Carlos Jiménez, DO [address] [place] [address] 4 2:30 PM EDT Office Visit Cardiology, [facility] 132 [facility] [place] [address] Maria Guadalupe Pederson PA-C 132 [facility] [place] [address] 4 1:00 PM EDT Cardiac Studies Cardiac Studies, [facility] 132 [facility] [place] [address] 4 10:45 AM EDT Office Visit Cardiology, [facility] 132 [facility] [place] [address] Rosalba Humphrey, 400 [facility] [place] [address] 4 7:30 AM EDT PulmDiagnostic Pulmonary Function Lab, [facility] 132 [facility] [place] [address] West, Pft [address] [place] [address] 4 8:00 AM EDT PulmDiagnostic Pulmonary Function Lab, [facility] 132 [facility] [place] [address] West, Pft [address] [place] [address] 4 10:20 AM EDT Office Visit Pulmonary Medicine, [facility] 132 [facility] [place] [address] Kumar [facility] [address] [facility] [address] 4 9:45 AM EDT Hospital Encounter [facility]O [facility], Endoscopy Suite, HFAM 1, [address] [place], [place] [id number] Jose Ramon Morgan MD [address] [place] [address] 4 9:45 AM EDT - 4 11:00 AM EDT Surgery ENDO [facility], Endoscopy Suite, HFAM 1, [address] [place] [address] Jose Ramon Morgan MD [address] [place] [address] ESOPHAGOGASTRODUODENOSCOPY (EGD), FLEXIBLE, TRANSORAL, DIAGNOSTIC 11:30 AM EST Telemedicine Cardiovascular [facility]eticsAnkit [address] [place] [address] Kayla Larson Mae, [place] [address] [place] [address] Scheduled Orders Name Type Priority Associated Diagnoses Orde r Schedule CT CHEST WO CONTRAST Medical Imaging Routine Dyspnea and respiratory abnormalities Chronic cough Expected: 06/01/2024, Expires: 07/01/2025 XR CHEST 2 VIEWS Medical Imaging Routine Dyspnea and respiratory abnormalities Chronic cough Ordered: 05/31/2024 PULMONARY STRESS TESTING Procedures Routine Dyspnea and respiratory abnormalities Chronic cough Expected: 06/01/2024, Expires: 07/01/2025 NOCTURNAL HOME OXIMETRY (OP) Procedures Routine Dyspnea and respiratory abnormalities Chronic cough Ordered: 05/31/2024 DIFFUSION CAPACITY (DLCO) Procedures Routine Dyspnea and respiratory abnormalities Chronic cough Expected: 06/07/2024, Expires: 07/01/2025 LUNG VOLUMES (PLETHYSMOGRAPHY) Procedures Routine Dyspnea and respiratory abnormalities Chronic cough Expected: 06/07/2024, Expires: 07/01/2025 SPIROMETRY B/A BRONCHODILATOR Procedures Routine Dyspnea and respiratory abnormalities Chronic cough Expected: 06/07/2024, Expires: 07/01/2025 Scheduled Procedures Name Priority Associated Diagnoses Date/Ti [...] as of this encounter Visit Diagnoses Diagnosis Dyspnea and respiratory abnormalities- Primary Other dyspnea and respiratory abnormality Chronic cough Cough Dysphagia, unspecified type documented in this encounter Care Teams Transfer Iron Operator Relationship Specialty Start Date End Date Debbie Arango MD [address] [facility] [place] [address] PCP - General Internal Medicine 03/04/23 documented as of this encounter
--- OUTSIDE RECORDS SUMMARY | 2024-10-16 13:20 | External Medical Summary | Summary of Care ---
Author Name Unknown Organization [facility] Address [address] [place] [address] Phone [phone] Care Team Providers Care Hunting Sales Leader Name Role Phone Debbie Arango MD Primary Care Provider Reason for Referral * Evaluate & Treat - Unlimited Visits (Within 3 days (urgent)) - Pending Review Specialty Diagnoses / Procedures Referred By Contac t Referred To Contact Pulmonary Diseases / Pulmonary Diagnoses Aspiration pneumonia of right lower lobe, unspecified aspiration pneumonia type (HCC) Rick Tan DO [address] [place] [address] Houston Caraballo DO [address] [place] [address] Referral ID Status Reason Start Date Expiration Date Visits Requested Visits Authorized [id number] Pending Review Specialty Services Required 05/19/2024 999 [...] st Contact Info) Description 05/05/2024 Telephone Cardiology, [facility] [address] [place] [address] Rick Tan DO [address] [place] [address] Advice; Medication Question Allergies No known active [...] Relationship to patient: Number to return call: [phone] Reason for call(brief): pulmonary referral Pharmacy: na Provider Name:Dr. Tan Detailed message to office:AL is able to place insurance referral for pulmonary but pulmonary needsreferral for patient to be seen from Dr. Tan. Thanks * Telephone Encounter - Nigel West LPN - 05/14/2024 11:24 AM EDT VA PLANNING ADVISOR called and stated she is informing patient [...] to patient: Spouse Number to return call: [phone] Reason for call: medication question Pharmacy: [facility] [address] [address] [address] Provider Name: Rick Tan DO [...] [facility] Reviewed new dose/instructions with son. [...] Relationship to patient: Number to return call: [phone] Reason for call(brief): Advice Pharmacy: n/a Provider [...] 4 11:20 AM EDT Office Visit Neurology [facility] [address] [place] [address] Carlos Jiménez, DO [address] [place] [address] 4 2:30 PM EDT Office Visit Cardiology, [facility] 132 [place] [address] Maria Guadalupe Pederson PA-C 132 [place] [address] 4 1:00 PM EDT Cardiac Studies Cardiac Studies, [facility] 132 [place] [address] 4 9:45 AM EDT Hospital Encounter ENDO [facility], Endoscopy Suite, HFAM 1, [address] [place] [address] Jose Ramon Morgan MD [address] [place] [address] 4 9:45 AM EDT - 4 11:00 AM EDT Surgery ENDO [facility], Endoscopy Suite, HFAM 1, [address] [place] [address] Jose Ramon Morgan MD [address] [place] [address] ESOPHAGOGASTRODUODENOSCOPY (EGD), FLEXIBLE, TRANSORAL, DIAGNOSTIC 12:15 PM EDT Office Visit Cardiology, [facility] 132 [facility] [place] [address] Rosalba Humphrey, [address] [place] [address] 11:30 AM EST Telemedicine Cardiovascular Genetics, [facility] 132 [facility] [place] [address] Kayla Larson, MS 132 [facility] [place] [address] Scheduled Procedures Name Priority Associated Diagnoses Date/Ti [...] type documented in this encounter Care Teams Hunting Sales Leader Relationship Specialty Start Date End Date Debbie Arango MD [address] [facility] [place] [address] PCP - General Internal Medicine 03/04/23 documented as of this encounter
--- OUTSIDE RECORDS SUMMARY | 2024-10-16 13:20 | External Medical Summary | Summary of Care ---
Author Name Unknown Organization [facility] Address [address] [place] [address] Phone [phone] Care Team Providers Care Framing Manager Name Role Phone Debbie Arango MD Primary Care Provider Encounter Details Date Type Department Care Team (Late st Contact Info) Description 05/27/2024 Orders Only Nephrology, Amna Heredia 200 [facility] [place] [address] GalvanTeena gomez MD 200 [place] [place] [address] Allergies No known active allergiesdocumented as of [...] 9:00 AM EDT Office Visit Pulmonary Medicine, [facility] 132 [facility] [place] [address] Kumar Noyola MD [address] [place] [address] 4 11:20 AM EDT Office Visit Neurology [facility] [address] [place] [address] Carlos Jiménez, DO [address] [place] [address] 4 2:30 PM EDT Office Visit Cardiology, [facility] 132 [facility] [place] [address] Maria Guadalupe Pederson PA-C 132 [facility] [place] [address] 4 1:00 PM EDT Cardiac Studies Cardiac Studies, [facility] 132 [facility] [place] [address] 4 10:45 AM EDT Office Visit Cardiology, [facility] 132 [facility] [place] [address] Rosalba Humphrey, DO [address] [place] [address] 4 9:45 AM EDT Hospital Encounter ENDO [facility], Endoscopy Suite, HFAM 1, [address] [facility] [place] [id number] Jose Ramon Morgan MD [address] [place] [address] 4 9:45 AM EDT - 4 11:00 AM EDT Surgery ENDO [facility], Endoscopy Suite, HFAM 1, [address] [place] [address] Jose Ramon Morgan MD [address] [place] [address] ESOPHAGOGASTRODUODENOSCOPY (EGD), FLEXIBLE, TRANSORAL, DIAGNOSTIC 4 11:30 AM EST Telemedicine Cardiovascular Genetics, [facility] [address] [facility] [place] [address] Kayla Larson, MS [address] [facility] [address] Scheduled Procedures Name Priority Associated Diagnoses Date/Ti [...] Procedure Name Priority Date/Time Associated Diagnosis Comments CHEMISTRY-OUTSIDE Routine 05/24/2024 documented in this encounter Results * (ABNORMAL) CHEMISTRY-OUTSIDE (05/24/2024) Not all results display below - see scan for full detail OUTSIDE LAB (SEE SCANNED REPORT) Comment:SCAN INCLUDES - V.A. LABS: PT, INR, FOLATE, VIT B12, CPK, VIT D 25-OH, BMP, MAGNESIUM, LIVER FUNCTION, HBA1C, DIFFERENTIAL CREATININE-OUTSID E LAB 6.7(A) 0.6 - 1.5 MG/DL OUTSIDE LAB (SEE SCANNED REPORT) EGFR-OUTSIDE LAB 8 ML/MIN/1.7 3M2 OUTSIDE LAB (SEE SCANNED REPORT) POTASSIUM-OUTSIDE LAB 4.5 3.6 - 5.1 MMOL/L OUTSIDE LAB (SEE SCANNED REPORT) GLUCOSE-OUTSIDE LAB 91 70 - 99 MG/DL OUTSIDE LAB (SEE SCANNED REPORT) Comment:RANDOM GLUCOSE HOURS FASTING OUTSID E LAB (SEE SCANNED REPORT) TRIGLYCERIDES-OUT SIDE LAB OUTSIDE LAB (SEE SCANNED REPORT) CHOLESTEROL-OUTSI DE LAB OUTSIDE LAB (SEE SCANNED REPORT) HDL-OUTSIDE LAB OUTS JALEN LAB (SEE SCANNED REPORT) CHOL/HDL RATIO-OUTSIDE LAB OUTSIDE LA B (SEE SCANNED REPORT) LDL (CALCULATED)-OUTS JALEN LAB OUTSIDE LAB (SEE SCANNED REPORT) LDL (DIRECT MEASURE)-OUTSIDE LAB OUTSIDE LAB (SEE SCANNED REPORT) HEMOGLOBIN, A1H-TDEYBNE LAB 6.1 4.3 - 6.2 % OUTSIDE LAB (SEE SCANNED REPORT) PHOSPHORUS-OUTSID E LAB OUTSIDE LAB (SEE SCANNED REPORT) PTH-OUTSIDE LAB OUTS JALEN LAB (SEE SCANNED REPORT) MICROALBUMIN RATIO-OUTSIDE LAB OUTSIDE LA B (SEE SCANNED REPORT) PROTEIN, UA-OUTSIDE LAB OUTSIDE LAB (SEE SCANNED REPORT) HGB OUTSIDE LA B (SEE SCANNED REPORT) 05/24/2024 [facility] OUTSIDE LAB (SEE SCANNED REPORT) documented in this encounter Care Teams Framing Manager Relationship Specialty Start Date End Date Debbie Arango MD 290[address] [facility] [place] [address] PCP - General Internal Medicine 03/04/23 documented as of this encounter
--- OUTSIDE RECORDS SUMMARY | 2024-10-16 13:20 | External Medical Summary ---
Author Name Unknown Address Unknown Organization K01:[place] [facility] [place] [facility] [address] [facility] [address] Laboratory Report Ordering Provider Test Date Status ANDREEA KENYON 06/01/2024 12:26:54 Final Observation Date Value Abnormality Reference (Units ) Status HbA1C 06/01/2024 12:26:54 6.1 Above high normal 4. 0-5.6 (%) Final The use of HbA1c to monitor glycemic status is based on normal hemoglobin and HbA composition. This test should not be used in patients with abnormal hemoglobin that affects the half life of the red blood cell or the in vivo glycation rates. Glucose, estimated average 06/01/2024 12:26:54 128 Above high normal <126 (mg/dL) Kane pennington Performing Location [place] [place] [address] [facility] [address]
--- OUTSIDE RECORDS SUMMARY | 2024-10-16 13:20 | External Medical Summary | Summary of Care ---
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) Allergies No known active allergiesdocumented as of [...] Description 4 2:15 PM EDT Imaging Radiology [facility]st [facility] [place] [address] 4 2:30 PM EDT Office Visit Cardiology, [facility] 132 [facility] [place] [address] Maria Guadalupe Pederson PA-C 132 [facility] [place] [address] 4 1:25 PM EDT NeuroDiagnostic Study Neurophysiolog [facility] [address] [place] [address] [place] [address] Carlos Jiménez, [address] [place] [address] 4 1:00 PM EDT Cardiac Studies Cardiac Studies, [facility] 132 [facility] [place] [address] 4 10:45 AM EDT Office Visit Cardiology, [facility] [address] [place] [address] Milagro Rosalbashanell Segura, DO 400 [facility] [place] [address] 4 7:30 AM EDT PulmDiagnostic Pulmonary Function Lab, [facility] 132 [facility] [address] West, Pft 132 [facility] [place] [address] 4 8:00 AM EDT PulmDiagnostic Pulmonary Function Lab, [facility] 132 [facility] [address] West, Pft [address] [place] [address], [place] [address] 4 10:20 AM EDT Office Visit Pulmonary Medicine, [facility] 132 [facility] [address] Kumar Noyola MD [address] [facility] [place] [address] 4 9:45 AM EDT Hospital Encounter [facility]O [facility], Endoscopy Suite, HFAM 1, [address] [place] [address] Jose Ramon Morgan MD [address] [place] [address] 4 9:45 AM EDT - 4 11:00 AM EDT Surgery [facility]O [facility], Endoscopy Suite, HFAM 1, [address] [place] [address] Jose Ramon Morgan MD [address] [place], [place] [address] ESOPHAGOGASTRODUODENOSCOPY (EGD), FLEXIBLE, TRANSORAL, DIAGNOSTIC 4 11:30 AM EST Telemedicine Cardiovascular Genetics, Ankit Razo [address] [place] [address] Kayla Larson, MS [address] [place] [address] 4 3:00 PM EST Office Visit Neurology [facility] [address] [place] [address] [place] [address] Carlos Jiménez, DO [address] [place] [address] Pending Results Name Type Priority Associated Diagnoses Date /Time EXTENDED MYOSITIS PANEL Lab Routine 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
--- OUTSIDE RECORDS SUMMARY | 2024-10-16 13:21 | External Medical Summary | Summary of Care ---
Author Name Unknown Organization [facility] Address [address] [place] [address] Phone [phone] Care Team Providers Care Production Grip Name Role Phone Debbie Arango MD Primary Care Provider Reason for Visit * Reason Onset Date Comments Advice 05/07/2024 Encounter Details Date Type Department Care Team (Late st Contact Info) Description 05/07/2024 Telephone Nephrology, Amna Heredia [address] [place] [address] Teena Galvan MD [address] [place] [address] Advice Allergies No known active allergiesdocumented as of this encounter (statuses as of 05/12/2024) Medications Medication Sig Dispensed Refills Start Date [...] as of this encounter (statuses as of 05/12/2024) Active Problems Problem Noted Date Diagnosed Date CKD (chronic kidney disease) stage 5, GFR less than 15 ml/min 05/21/2023 Peripheral vascular disease with claudication HTN, goal below 130/80 05/21/2023 documented as of this encounter (statuses as of 05/12/2024) Social History Tobacco Use Types Packs/Day Years [...] Telephone Encounter - Teena Galvan MD - 05/12/2024 4:48 PM EDT Dialysis pt; will discuss at dialysis clinic; * Telephone Encounter - Vivienne Guerra LPN - 05/10/2024 8:42 AM EDT please advise * Telephone Encounter - Brigida June OSA - 05/07/2024 6:34 PM EDT jayjay avery recently prescribed a medication and they were reading the side effects and wants to know if this is safe to take. Reads it can cause kidney issues Midodrine HCl 2.5 MG Oral Tablet documented in this encounter Plan of Treatment Upcoming Encounters Date Type Department Care Team (Latest Contact Info) Description 4 11:20 AM EDT Office Visit Neurology Amna Heredia [place] [address] [place] [address] Carlos Jiménez, [address] [place] [address] 4 2:30 PM EDT [facility] [address] [address] Maria Guadalupe Pederson PA-C 132 [address] [place] [address] 4 1:00 PM EDT Cardiac Studies Cardiac Studies, [facility] 132 [place] [address] 4 9:45 AM EDT Hospital Encounter ENDO [facility], Endoscopy Suite, HFAM 1, [address] [place] [address] Jose Ramon Morgan MD [address] [place] [address] 4 9:45 AM EDT - 4 11:00 AM EDT Surgery ENDO [facility], Endoscopy Suite, HFAM 1, [address] [place] [address] Jose Ramon Morgan MD [address] [place] [address] ESOPHAGOGASTRODUODENOSCOPY (EGD), FLEXIBLE, TRANSORAL, DIAGNOSTIC 4 12:15 PM EDT Office Visit Cardiology, [facility] 132 [place] [address] Rosalba Humphrey Imelda, 400 [facility] [place] [address] 4 11:30 AM EST [facility] 132 [facility] [place] [address] Kayla Larson, [place] 132 [facility] [place] [id number] Scheduled Orders Name Type Priority Associated Diagnoses Orde r Schedule EGD, FLEXIBLE, DIAGNOSTIC Procedures Routine Dysphagia, unspecified type Ordered: 05/11/2024 Scheduled Procedures Name Priority Associated Diagnoses Date/Ti me ESOPHAGOGASTRODUODENOSCOPY ( EGD), FLEXIBLE, TRANSORAL, DIAGNOSTIC Dysphagia, unspecified type 07/20/2024 9:45 AM EDT Health Maintenance Due Date Last Done Comments Depression Screening 1957 DTaP,Tdap,and Td Vaccines (1 - Tdap) 1965 COVID-19 Vaccine (1 - 2023-2 4 season) 2023 Influenza Vaccine (FLU shot) [...] Visit Diagnoses Diagnosis Dysphagia, unspecified type- Primary Dysphagia, unspecified type documented in this encounter Care Teams Production Grip Relationship Specialty Start Date End Date Debbie Arango MD [address] [facility] [place] [address] PCP - General Internal Medicine 03/04/23 documented as of this encounter
--- OUTSIDE RECORDS SUMMARY | 2024-10-16 13:21 | External Medical Summary | Summary of Care ---
Author Name Unknown Organization [facility] Address [address] [place] [address] Phone [phone] Care Team Providers Care Electronics Technology Department Chair Name Role Phone Debbie Arango MD Primary Care Provider Reason for Visit * Reason Onset Date Comments Advice 05/05/2024 Medication Question 05/05/2024 Encounter Details Date Type Department Care Team (Late st Contact Info) Description 05/05/2024 Telephone Cardiology, [facility] [address] [place] [address] Rick Tan, DO 132 [facility] [place] [address] Advice; Medication Question Allergies No known active allergiesdocumented as of this encounter (statuses as of 05/18/2024) Medications Medication Sig Dispensed Refills Start Date [...] as of this encounter (statuses as of 05/18/2024) Active Problems Problem Noted Date Diagnosed Date CKD (chronic kidney disease) stage 5, GFR less than 15 ml/min 05/21/2023 Peripheral vascular disease with claudication HTN, goal below 130/80 05/21/2023 documented as of this encounter (statuses as of 05/18/2024) Social History Tobacco Use Types Packs/Day Years [...] encounter Miscellaneous Notes * Telephone Encounter - Angelique Singh OSA - 05/14/2024 4:27 PM EDT Person calling: Dyana Relationship to patient: Number to return call: [phone] Reason for call(brief): pulmonary referral Pharmacy: na Provider Name:Dr. Tan Detailed message to office:MD is able to place insurance referral for pulmonary but pulmonary needsreferral for patient to be seen from Dr. Tan. Thanks * Telephone Encounter - Nigel West LPN - 05/14/2024 11:24 AM EDT [facility] called and stated she is informing patient [...] and she wants this clarified with you. Tahir Marie * Telephone Encounter - Camilla Apple OSA - 05/13/2024 4:42 PM EDT Person calling: Dyana Relationship to patient: Spouse Number to return call: [phone] Reason for call: medication question Pharmacy: [facility] [address] [address] [address] Provider Name: Rick Tan DO [...] metoprolol succinate [facility]od[facility]. Reviewed new dose/instructions with son. Verbalized [...] Relationship to patient: Number to return call: [phone] Reason for call(brief): Advice Pharmacy: n/a Provider [...] 4 11:20 AM EDT Office Visit Neurology [facility] [address] [place] [address] Carlos Jiménez, [address] [place] [address] 4 2:30 PM EDT Office Visit Cardiology, [facility] [address] [place] [address] Maria Guadalupe Pederson PA-C 132 [facility] [place] [address] 4 1:00 PM EDT Cardiac Studies Cardiac Studies, [facility] 132 [facility] [place] [address] 4 9:45 AM EDT Hospital Encounter [facility], Endoscopy Suite, HFAM 1, [address] [place] [address] Jose Ramon Morgan MD [address] [place] [address] 4 9:45 AM EDT - 4 11:00 AM EDT Surgery [facility], Endoscopy Suite, HFAM 1, [address] [place] [address] Jose Ramon Morgan MD [address] [place], [place] [address] ESOPHAGOGASTRODUODENOSCOPY (EGD), FLEXIBLE, TRANSORAL, DIAGNOSTIC 4 12:15 PM EDT Office Visit Cardiology, [facility] 132 [facility] [place] [address] Rosalba Humphrey Imelda, [address] [place] [address] 4 11:30 AM EST Telemedicine Cardiovascular Genetics, [facility] 132 [facility] [place] [address] Kayla Larson, [place] 132 [facility] [place] [id number] Scheduled Procedures Name Priority Associated Diagnoses Date/Ti [...] as of this encounter Visit Diagnoses Diagnosis Hypotension- Primary Hypotension, unspecified Paroxysmal atrial fibrillation (HCC) Atrial fibrillation Dysphagia, unspecified type documented in this encounter Care Teams Electronics Technology Department Chair Relationship Specialty Start Date End Date Debbie Arango MD [address] [facility] [place] [address] PCP - General Internal Medicine 03/04/23 documented as of this encounter
--- OUTSIDE RECORDS SUMMARY | 2024-10-16 13:21 | External Medical Summary | Summary of Care ---
Author Name Unknown Organization [facility] Address [address] [place] [address] Phone [phone] Care Team Providers Care Treatment Coordinator Name Role Phone Debbie Arango MD Primary Care Provider Reason for Visit * Reason Onset Date Comments Referral 05/11/2024 Encounter Details Date Type Department Care Team (Late st Contact Info) Description 05/11/2024 Telephone Neurology [facility] [address] [place], [place] [address] Services, Scheduling [address] [place] [address] Referral Allergies No known active allergiesdocumented as of this encounter (statuses as of 05/11/2024) Medications Medication Sig Dispensed Refills Start Date [...] as of this encounter (statuses as of 05/11/2024) Active Problems Problem Noted Date Diagnosed Date CKD (chronic kidney disease) stage 5, GFR less than 15 ml/min 05/21/2023 Peripheral vascular disease with claudication HTN, goal below 130/80 05/21/2023 documented as of this encounter (statuses as of 05/11/2024) Social History Tobacco Use Types Packs/Day Years [...] will order * Telephone Encounter - Alka Ron MED ASSIST - 05/11/2024 12:39 PM EDT [...] having: Requesting [facility] [place] [facility]. Requested ph[facility] of [facility]; "you guys have a different phone number, I don't have a phone number" Patient is scheduled for 06/01/[address] Jiménez Pts phone number for nurse to call back: [phone] documented in this encounter Plan of Treatment Upcoming Encounters Date Type Department Care Team (Late st Contact Info) Description 06/01/2024 11:20 AM EDT Office Visit Neurology Amna Heredia [place] [address] [place] [address] Carlos Jiménez, [address] [place] [address] [address] 06/15/2024 2:30 PM EDT Office Visit Cardiology, [facility] 132 [facility] [place] Maria Guadalupe Pederson PA-C [address] [place] [address] 06/30/2024 1:00 PM EDT Cardiac Studies Cardiac Studies, [facility] 132 [facility] [place] [address] 07/20/2024 12:15 PM EDT Office Visit Cardiology, [facility] 132 [facility] [place] [address] Rosalba Humphrey, DO 400 [facility] [place] [address] 09/15/2024 11:30 AM EST Telemedicine Cardiovascular Genetics, [facility] 132 [facility] [place] [address] Kayla Larson, [place] 132 [facility] [place] [address] Health Maintenance Due Date Last Done Comments [...] filedocumented as of this encounter Care Teams Treatment Coordinator Relationship Specialty Start Date End Date Debbie Arango MD [address] [facility] [place] [address] PCP - General Internal Medicine 03/04/23 documented as of this encounter
--- OUTSIDE RECORDS SUMMARY | 2024-10-16 13:21 | External Medical Summary | Summary of Care ---
Author Name Unknown Organization [facility] Address [address] [place] [address] Phone [phone] Care Team Providers Care Private Sector Executive Name Role Phone Debbie Arango MD Primary Care Provider Reason for Visit * Reason Onset Date Comments Advice 05/07/2024 Encounter Details Date Type Department Care Team (Late st Contact Info) Description 05/07/2024 Telephone Nephrology, Amna Blair [address] [place] [address] Teena Galvan MD [address] [place] [address] Advice Allergies No known active allergiesdocumented as [...] OSA - 05/07/2024 6:34 PM EDT jayjay quiñonez recently prescribed a medication and they were reading the side effects and wants to know if this is safe to take. Reads it can cause kidney issues Midodrine HCl 2.5 MG Oral Tablet documented in this encounter Plan of Treatment Upcoming Encounters Date Type Department Care Team (Late st Contact Info) Description 06/01/2024 11:20 AM EDT Office [facility] [place] 200 Amna Qu[place]ñone[place] [address] Carlos Jiménez, 200 Amna Quiñonez [place] [address] 06/15/2024 2:30 PM EDT [facility] [address] [place] [address] Maria Guadalupe Pederson PA-C 132 [address] [place] [address] 06/30/2024 1:00 PM EDT Cardiac Studies Cardiac Studies, [facility] [place] [address] [place] [address] 07/20/2024 12:15 PM EDT [facility] [place] [address] [place] [address] Rosalba Humphrey Imelda, DO [address] [address] 09/15/2024 11:30 AM EST Telemedicine Cardiovascular Genetics, Ankit Razo [address] [place] [address] MarshaKayla, [place] [address] [place] [address] Scheduled Orders Name Type Priority Associated Diagnoses Orde r Schedule EGD, FLEXIBLE, DIAGNOSTIC Procedures Routine Dysphagia, unspecified type Ordered: 05/11/2024 Health Maintenance Due Date Last Done Comments [...] Primary documented in this encounter Care Teams Private Sector Executive Relationship Specialty Start Date End Date Debbie Arango MD [facility] [facility] [address] PCP - General Internal Medicine 03/04/23 documented as of this encounter
--- OUTSIDE RECORDS SUMMARY | 2024-10-16 13:21 | External Medical Summary | Summary of Care ---
Author Name Unknown Organization [facility] Address [address] [place] [address] Phone [phone] Care Team Providers Care Underground Conduit Installer Name Role Phone Debbie Arango MD Primary Care Provider Encounter Details Date Type Department Care Team (Late st Contact Info) Description 05/14/2024 Telephone Nephrology, Amna [place] 200 [place] [address] GalvanTeena gomez MD 200 [place] [address] Allergies No known active allergiesdocumented as of this encounter (statuses as of 05/14/2024) Medications Medication Sig Dispensed Refills Start Date [...] as of this encounter (statuses as of 05/14/2024) Active Problems Problem Noted Date Diagnosed Date CKD (chronic kidney disease) stage 5, GFR less than 15 ml/min 05/21/2023 Peripheral vascular disease with claudication HTN, goal below 130/80 05/21/2023 documented as of this encounter (statuses as of 05/14/2024) Social History Tobacco Use Types Packs/Day Years [...] Telephone Encounter - Teena Galvan MD - 05/14/2024 12:26 PM EDT Excessive alarms on PD machine >> pt is moving bowels 2X daily and w/ diarrhea documented in this encounter Plan of Treatment Upcoming Encounters Date Type Department Care Team (Latest Contact Info) Description 11:20 AM EDT Office Visit Neurology [facility] [address] [place] [address] Carlos Jiménez, DO [address] [place] [address] 4 2:30 PM EDT Office Visit Cardiology, [facility] [address] [place] [address] Maria Guadalupe Pederson PA-C 132 [place] [address] 4 1:00 PM EDT Cardiac Studies Cardiac Studies, [facility] [address] [place] [address] 4 9:45 AM EDT Hospital Encounter ENDO [facility], Endoscopy Suite, HFAM 1, [address] [place] [address] Jose Ramon Morgan MD [address] [facility] [place] [address] 4 9:45 AM EDT - 4 11:00 AM EDT Surgery ENDO [facility], Endoscopy Suite, HFAM 1, [address] [facility] [place] [address] Jose Ramon Morgan MD [address] [place] [address] ESOPHAGOGASTRODUODENOSCOPY (EGD), FLEXIBLE, TRANSORAL, DIAGNOSTIC 4 12:15 PM EDT Office Visit Cardiology, [facility] 132 Jennifer [facility] [place] [address] Rosalba Humphrey, DO 400 [facility] [place] [address] 4 11:30 AM EST Telemedicine Cardiovascular Genetics, [facility] 132 Jennifer [facility] [place] [address] Kayla Larson, [place] [address] [facility] [place] [address] Scheduled Orders Name Type Priority Associated Diagnoses Orde r Schedule XR ABDOMEN 1 VIEW Medical Imaging Routine CCPD (continuous cycling peritoneal dialysis) status (HCC) Ordered: 05/14/2024 Scheduled Procedures Name Priority Associated Diagnoses Date/Ti [...] as of this encounter Visit Diagnoses Diagnosis CCPD (continuous cycling peritoneal dialysis) status (HCC)- Primary Renal dialysis status Dysphagia, unspecified type documented in this encounter Care Teams Underground Conduit Installer Relationship Specialty Start Date End Date Debbie Arango MD [address]7 [facility] [place] [address] PCP - General Internal Medicine 03/04/23 documented as of this encounter
--- OUTSIDE RECORDS SUMMARY | 2024-10-16 13:21 | External Medical Summary | Summary of Care ---
Author Name Unknown Organization [facility] Address [address] [place] [address] Phone [phone] Care Team Providers Care Aeronautical Engineering Technologist Name Role Phone Debbie Arango MD Primary Care Provider Reason for Visit * Reason Onset Date Comments Referral 05/11/2024 Encounter Details Date Type Department Care Team (Late st Contact Info) Description 05/11/2024 Telephone [facility] [place] [address] [place], [place] [id number] Services, Scheduling [address] [place] [address] Referral Allergies No known active allergiesdocumented as [...] get info to [facility] Galvan FYLisa * Telephone Encounter - Vivienne Guerra LPN - 05/12/2024 8:26 AM EDT LMM to return call regarding * Telephone Encounter - Vivienne Guerra LPN - 05/12/2024 8:23 AM EDT Spoke with drilling engineering manager Needs [facility] referral for [facility] * Telephone [...] office to [facility] to [facility] [place] to confirm [facility] is [facility]. Requested ph[facility] of [facility]; "you guys have a different phone number, I don't have a phone number" Patient is scheduled for 06/01/[address] Jiménez Pts phone number for nurse to call back: [phone] documented in this encounter Plan of Treatment Upcoming Encounters Date Type Department Care Team (Latest Contact Info) Description 11:20 AM EDT Office Visit Neurology [facility] [address] [place] [address] Carlos Jiménez, DO [address] [place] [address] 4 2:30 PM EDT Office Visit Cardiology, [facility] 132 [place] [address] Maria Guadalupe Pederson, ROHINI [address] [place] [address] 4 1:00 PM EDT Cardiac Studies Cardiac Studies, [facility] [address] [place] [address] 4 9:45 AM EDT Hospital Encounter ENDO [facility], Endoscopy Suite, HFAM 1, [address] [place] [address] Jose Ramon Morgan MD [address] [facility] [place] [address] 4 9:45 AM EDT - 4 11:00 AM EDT Surgery ENDO C, Endoscopy Suite, HFAM 1, [address] [facility] [place] [address] Jose Ramon Morgan MD [address] [place] [address] ESOPHAGOGASTRODUODENOSCOPY (EGD), FLEXIBLE, TRANSORAL, DIAGNOSTIC 12:15 PM EDT Office Visit Cardiology, [facility] [address] [place] [address] Rosalba Humphrey, 400 [facility] [place] [id number] 4 11:30 AM EST Telemedicine [facility] [address] [place] [address] Kayla Larson, [place] [address] [place] [address] Scheduled Procedures Name Priority Associated Diagnoses Date/Ti [...] filedocumented as of this encounter Care Teams Aeronautical Engineering Technologist Relationship Specialty Start Date End Date Debbie Arango MD 2900 [facility] [place] [address] PCP - General Internal Medicine 03/04/23 documented as of this encounter
--- OUTSIDE RECORDS SUMMARY | 2024-10-16 13:21 | External Medical Summary | Summary of Care ---
Author Name Unknown Organization [facility] Address [address] [place] [address] Phone [phone] Care Team Providers Care Sign Designer Name Role Phone Debbie Arango MD Primary Care Provider Reason for Visit * Reason Onset Date Comments Referral 05/11/2024 Encounter Details Date Type Department Care Team (Late st Contact Info) Description 05/11/[address] [facility] [address] [place], [place] [phone] Services, Scheduling [address] [place] [address] Referral Allergies No known active allergiesdocumented as [...] - 05/12/2024 8:23 AM EDT Spoke with enrolled nurse Needs [facility] referral for [facility] * Telephone [...] office to reach out to [facility] [place] to [facility] is [facility]. Requested ph[facility] fax of [facility]; "you guys have a different phone number, I don't have a phone number" Patient is scheduled for 06/01/[address] Jiménez Pts phone number for nurse to call back: [phone] documented in this encounter Plan of Treatment Upcoming Encounters Date Type Department Care Team (Latest Contact Info) Description 4 11:20 AM EDT Office Visit Neurology [facility] [address] [place] [address] Carlos Jiménez, DO [address] [place] [address] 4 2:30 PM EDT Office Visit Cardiology, [facility] 132 [place] [address] Maria Guadalupe Pederson PA-C 132 [facility] [place] [address] 4 1:00 PM EDT Cardiac Studies Cardiac Studies, [facility] [address] [place] [facility] [place] [address] 4 9:45 AM EDT Hospital Encounter [facility], Endoscopy Suite, HFAM 1, [address] [place] [address] Jose Ramon Morgan MD [address] [place] [address] 4 9:45 AM EDT - 4 11:00 AM EDT Surgery [facility]O [facility], Endoscopy Suite, HFAM 1, [address] [place] [address] Jose Ramon Morgan MD [address] [place] [address] ESOPHAGOGASTRODUODENOSCOPY (EGD), FLEXIBLE, TRANSORAL, DIAGNOSTIC 4 12:15 PM EDT Office Visit Cardiology, [facility] 132 [place] [place] [address] Rosalba Humphrey, DO 400 [facility] [place] [address] 11:30 AM EST Telemedicine Cardiovascular Genetics, Ankit Razo [address] [place] [address] Marsha Kayla [place], [place] [address] [place] [address] Scheduled Procedures Name Priority Associated Diagnoses Date/Ti [...] filedocumented as of this encounter Care Teams Sign Designer Relationship Specialty Start Date End Date Debbie Arango MD 290[address] [facility] [place] [address] PCP - General Internal Medicine 03/04/23 documented as of this encounter
--- OUTSIDE RECORDS SUMMARY | 2024-10-16 13:21 | External Medical Summary | Summary of Care ---
Author Name Unknown Organization [facility] Address [address] [place] [address] Phone [phone] Care Team Providers Care Storage Engineer Name Role Phone Debbie Arango MD Primary Care Provider Reason for Visit * Reason Onset Date Comments Advice 05/05/2024 Medication Question 05/05/2024 Encounter Details Date Type Department Care Team (Late st Contact Info) Description 05/05/2024 Telephone Cardiology, [facility] [address] [place] [address] Rick Tan, DO 132 [facility] [place] [address] Advice; Medication Question Allergies No known active [...] encounter Miscellaneous Notes * Telephone Encounter - Rick Tna DO - 05/18/2024 2:50 PM EDT Pulmonary referral re: silent aspiration per video swallow kermit, 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 * Telephone Encounter - Angelique Singh OSA - 05/14/2024 4:27 PM EDT Person calling: Dyana Relationship to patient: Number to return call: [phone] Reason for call(brief): pulmonary referral Pharmacy: na Provider Name:Dr. Tan Detailed message to office:[place] is able to place insurance referral for pulmonary but pulmonary needsreferral for patient to be seen from Dr. Tan. Thanks * Telephone Encounter - Nigel West LPN - 05/14/2024 11:24 AM EDT VA MEDICAL RECEPTIONIST MEDICAL ASSISTANT called and stated she is informing patient [...] to patient: Spouse Number to return call: [phone] Reason for call: medication question Pharmacy: [facility] [address] [address] [address] Provider Name: Rick Tan DO [...] metoprolol succinate and midodrine were sent to [facility]. Reviewed new dose/instructions with [...] Relationship to patient: Number to return call: [phone] Reason for call(brief): Advice Pharmacy: n/a Provider [...] AM EDT Office Visit Neurology [facility] [place] [address] [place] [address] Carlos Jiménez, DO [address] [place] [address] 4 2:30 PM EDT Office Visit Cardiology, [facility] 132 [place] [address] Maria Guadalupe Pederson PA-C 132 [facility], [place] [address] 4 1:00 PM EDT Cardiac Studies Cardiac Studies, [facility] 132 [place] [address] 4 9:45 AM EDT Hospital Encounter ENDO [facility], Endoscopy Suite, HFAM 1, [address] [place] [address] Jose Ramon Morgan MD [address] [place] [address] 4 9:45 AM EDT - 4 11:00 AM EDT Surgery ENDO [facility], Endoscopy Suite, HFAM 1, [address] [place] [address] Jose Ramon Morgan MD [address] [place] [address] ESOPHAGOGASTRODUODENOSCOPY (EGD), FLEXIBLE, TRANSORAL, DIAGNOSTIC 4 12:15 PM EDT Office Visit Cardiology, [facility] 132 [place] [address] Rosalba Humphrey, DO 400 [facility] [place] [address] 4 11:30 AM EST Telemedicine Cardiovascular Genetics, [facility] 132 [place] [address] Kayla Larson, MS 132 [place] [address] Scheduled Procedures Name Priority Associated Diagnoses Date/Ti [...] type documented in this encounter Care Teams Storage Engineer Relationship Specialty Start Date End Date Debbie Arango MD 2907 [facility] [place] [address] PCP - General Internal Medicine 03/04/23 documented as of this encounter
--- OUTSIDE RECORDS SUMMARY | 2024-10-16 13:21 | External Medical Summary | Summary of Care ---
Author Name Unknown Organization [facility] Address [address] [place] [address] Phone [phone] Care Team Providers Care Security Assurance Analyst Name Role Phone Debbie Arango MD Primary Care Provider Reason for Visit * Reason Onset Date Comments Referral 05/11/2024 Encounter Details Date Type Department Care Team (Late st Contact Info) Description 05/11/2024 Telephone Neurology [facility] [address] [place], [place] [phone] Services, Scheduling [address] [place] [address] Referral Allergies No known active allergiesdocumented as [...] office to reach out to [facility] [place] to confirm referral is accepted. Requested ph/ fax of VA; "you guys have a different phone number, I don't have a phone number" Patient is scheduled for 06/01/[address] Jiménez Pts phone number for nurse to call back: [phone] documented in this encounter Plan of Treatment Upcoming Encounters Date Type Department Care Team (Late st Contact Info) Description 06/01/2024 11:20 AM EDT Office Visit Neurology [facility] [place] [address] [place] [address] Carlos Jmiénez, [address] [place] [address] [address] 06/15/2024 2:30 PM EDT Office Visit Cardiology, [facility] 132 [facility] [place] Maria Guadalupe Pederson PA-C [address] [place] [address] 06/30/2024 1:00 PM EDT Cardiac Studies Cardiac Studies, [facility] 132 [facility] [place] [address] 07/20/2024 12:15 PM EDT Office Visit Cardiology, [facility] 132 [facility] [place] [address] Rosalba Humphrey, DO 400 [facility] [place] [address] 09/15/2024 11:30 AM EST Telemedicine Cardiovascular Genetics, [facility] 132 [facility] [place] [address] Kayla Larson, MS 132 [facility] [place] [address] Health Maintenance Due Date Last Done Comments [...] filedocumented as of this encounter Care Teams Security Assurance Analyst Relationship Specialty Start Date End Date Debbie Arango MD 4[address] [facility] [place] [address] PCP - General Internal Medicine 03/04/23 documented as of this encounter
--- OUTSIDE RECORDS SUMMARY | 2024-10-16 13:21 | External Medical Summary | Summary of Care ---
Author Name Unknown Organization [facility] Address [address] [place] [address] Phone [phone] Care Team Providers Care Technical Illustrator Name Role Phone Debbie Arango MD Primary Care Provider Reason for Visit * Reason Onset Date Comments Referral 05/11/2024 Encounter Details Date Type Department Care Team (Late st Contact Info) Description 05/11/2024 Telephone Neurology [facility] [place] [address] [place], [place] [address] Services, Scheduling [address] [place] [address] Referral Allergies No known active allergiesdocumented as [...] - 05/12/2024 8:23 AM EDT Spoke with energy scheduler Needs VA referral for this * Telephone [...] office to reach out to [facility] in [place] to confirm referral is accepted. Requested ph/ fax of VA; "you guys have a different phone number, I don't have a phone number" Patient is scheduled for 06/01/[address] Jiménez Pts phone number for nurse to call back: [phone] documented in this encounter Plan of Treatment Upcoming Encounters Date Type Department Care Team (Latest Contact Info) Description 11:20 AM EDT Office Visit Neurology [facility] [address] [place] [address] Carlos Jiménez, DO [address] [place] [address] 4 2:30 PM EDT Office Visit Cardiology, [facility] 132 [place] [address] Maria Guadalupe Pederson, ROHINI 132 [place] [address] 4 1:00 PM EDT Cardiac Studies Cardiac Studies, [facility] 132 [place] [address] 4 9:45 AM EDT Hospital Encounter ENDO [facility], Endoscopy Suite, HFAM 1, [address] [place] [address] Jose Ramon Morgan MD [address] [facility] [place] [address] 4 9:45 AM EDT - 4 11:00 AM EDT Surgery ENDO C, Endoscopy Suite, HFAM 1, [address] [facility] [place] [address] Jose Ramon Morgan MD [address] [place] [address] ESOPHAGOGASTRODUODENOSCOPY (EGD), FLEXIBLE, TRANSORAL, DIAGNOSTIC 12:15 PM EDT Office Visit Cardiology, [facility] [address] [place] [address] Rosalba Humphrey, 400 [facility] [place] [id number] 4 11:30 AM EST [facility] [address] [place] [address] Kayla Larson, MS [address] [place] [address] Scheduled Procedures Name Priority Associated Diagnoses Date/Ti [...] filedocumented as of this encounter Care Teams Technical Illustrator Relationship Specialty Start Date End Date Debbie Arango MD 2900 [facility] [place] [address] PCP - General Internal Medicine 03/04/23 documented as of this encounter
--- OUTSIDE RECORDS SUMMARY | 2024-10-16 13:21 | External Medical Summary | Summary of Care ---
Author Name Unknown Organization [facility] Address [address] [place] [address] Phone [phone] Care Team Providers Care Assistant Branch Operations Manager Name Role Phone Debbie Arango MD Primary Care Provider Reason for Visit * Reason Onset Date Comments Advice 05/05/2024 Medication Question 05/05/2024 Encounter Details Date Type Department Care Team (Late st Contact Info) Description 05/05/2024 Telephone Cardiology, [facility] [address] [place] [address] Rick Tan, DO 132 [facility] [place] [address] Advice; Medication Question Allergies No known active allergiesdocumented as of this encounter (statuses as of 05/17/2024) Medications Medication Sig Dispensed Refills Start Date [...] as of this encounter (statuses as of 05/17/2024) Active Problems Problem Noted Date Diagnosed Date CKD (chronic kidney disease) stage 5, GFR less than 15 ml/min 05/21/2023 Peripheral vascular disease with claudication HTN, goal below 130/80 05/21/2023 documented as of this encounter (statuses as of 05/17/2024) Social History Tobacco Use Types Packs/Day Years [...] Relationship to patient: Number to return call: [phone] Reason for call(brief): pulmonary referral Pharmacy: na Provider Name:Dr. Tan Detailed message to office:[place] is able to place insurance referral for pulmonary but pulmonary needsreferral for patient to be seen from Dr. Tan. Thanks * Telephone Encounter - Nigel West LPN - 05/14/2024 11:24 AM EDT VA CHILDREN'S COUNSELOR called and stated she is informing patient [...] to patient: Spouse Number to return call: [phone] Reason for call: medication question Pharmacy: [facility] [address] [address] Provider Name: Rick Tan DO Detailed message to office: calling for clarification on Metoprolol Succinate. States that atthe pharmacy, she picked up 25 MG Extended [...] metoprolol succinate and midodrine were sent [facility]. Reviewed new dose/instructions [...] Relationship to patient: Number to return call: [phone] Reason for call(brief): Advice Pharmacy: n/a Provider [...] 4 11:20 AM EDT Office Visit Neurology [facility] [address] [place] [address] Carlos Jiménez, [address] [place] [address] 4 2:30 PM EDT Office Visit Cardiology, [facility] [address] [place] [address] Maria Guadalupe Pederson PA-C 132 [facility] [place] [address] 4 1:00 PM EDT Cardiac Studies Cardiac Studies, [facility] 132 [facility] [place] [address] 4 9:45 AM EDT Hospital Encounter [facility], Endoscopy Suite, HFAM 1, [address] [place] [address] Jose Ramon Morgan MD [address] [place] [address] 4 9:45 AM EDT - 4 11:00 AM EDT Surgery [facility], Endoscopy Suite, HFAM 1, [address] [place] [address] Jose Ramon Morgan MD [address] [place], [place] [id number] ESOPHAGOGASTRODUODENOSCOPY (EGD), FLEXIBLE, TRANSORAL, DIAGNOSTIC 4 12:15 PM EDT Office Visit Cardiology, [facility] 132 [facility] [place] [address] Rosalba Humphrey [place], 400 [place] [address] 4 11:30 AM EST Telemedicine Cardiovascular Genetics, [facility] 132 [facility] [place] [address] Kayla Larson, MS 132 [facility] [place] [address] Scheduled Procedures Name Priority Associated Diagnoses Date/Ti [...] type documented in this encounter Care Teams Assistant Branch Operations Manager Relationship Specialty Start Date End Date Debbie Arango MD 2907 [facility] [place] [address] PCP - General Internal Medicine 03/04/23 documented as of this encounter
--- OUTSIDE RECORDS SUMMARY | 2024-10-16 13:21 | External Medical Summary | Summary of Care ---
Author Name Unknown Organization [facility] Address [address] [place] [address] Phone [phone] Care Team Providers Care Manager Credit Collections Name Role Phone Debbie Arango MD Primary Care Provider Reason for Visit * Reason Onset Date Comments Referral 05/11/2024 Encounter Details Date Type Department Care Team (Late st Contact Info) Description 05/11/2024 Telephone Neurology [facility] [address] [place], [place] [phone] Services, Scheduling [address] [place] [address] Referral Allergies No known active allergiesdocumented as [...] - 05/12/2024 8:23 AM EDT Spoke with continuous improvement black belt Needs [place] referral for this * Telephone Encounter - [...] office to reach out to [facility] in [place] to confirm referral is accepted. Requested ph/ fax of VA; "you guys have a different phone number, I don't have a phone number" Patient is scheduled for 06/01/[address] Jiménez Pts phone number for nurse to call back: [phone] documented in this encounter Plan of Treatment Upcoming Encounters Date Type Department Care Team (Late st Contact Info) Description 06/01/2024 11:20 AM EDT Office Visit Neurology [facility] [address] [place], [place] [address] Carlos Jiménez, DO [address] [place] [address] 06/15/2024 2:30 PM EDT Office Visit Cardiology, [facility] [address] [place] [address] Maria Guadalupe Pederson PA-C [address] [place] [address] 06/30/2024 1:00 PM EDT Cardiac Studies Cardiac Studies, [facility] 132 [facility] [place] [address] 07/20/2024 12:15 PM EDT Office Visit Cardiology, [facility] 132 [facility] [place] [address] Rosalba Humphrey, DO 400 [place] [address] 09/15/2024 11:30 AM EST Telemedicine Cardiovascular Genetics, [facility] [place] [address] Kayla Larson, MS 132 [facility] [place] [address] Health Maintenance Due Date Last Done Comments [...] as of this encounter Care Teams Manager Credit Collections Relationship Specialty Start Date End Date Debbie Arango MD 2907 [facility] [place] [address] PCP - General Internal Medicine 03/04/23 documented as of this encounter
--- OUTSIDE RECORDS SUMMARY | 2024-10-16 13:21 | External Medical Summary | Summary of Care ---
Author Name Unknown Organization [facility] Address [address] [place] [address] Phone [phone] Care Team Providers Care Trucking Supervisor Name Role Phone Debbie Arango MD Primary Care Provider Reason for Visit * Reason Onset Date Comments Referral 05/11/2024 Encounter Details Date Type Department Care Team (Late st Contact Info) Description 05/11/[address] [facility] [address] [place], [place] [phone] Services, Scheduling [address] [place] [address] Referral Allergies No known active allergiesdocumented as [...] - 05/12/2024 8:23 AM EDT Spoke with set o type operator Needs VA referral for this * Telephone [...] office to reach out to [facility] in [place] to confirm referral is accepted. Requested ph/ fax of VA; "you guys have a different phone number, I don't have a phone number" Patient is scheduled for 06/01/[address] Jiménez Pts phone number for nurse to call back: [phone] documented in this encounter Plan of Treatment Upcoming Encounters Date Type Department Care Team (Late st Contact Info) Description 06/01/2024 11:20 AM EDT Office Visit [facility] [address] [place] [address] Carlos Jiménez, DO [address] [place] [address] 06/15/2024 2:30 PM EDT Office Visit Cardiology, [facility] [address] [place] [address] Maria Guadalupe Pederson PA-C [address] [place] [address] 06/30/2024 1:00 PM EDT Cardiac Studies Cardiac Studies, [facility] [address] [place] [address] 07/20/2024 12:15 PM EDT Office Visit Cardiology, [facility] [address] [place] [address] Rosalba Humphrey, DO [address] [place] [address] 09/15/2024 11:30 AM EST Telemedicine Cardiovascular Genetics, [facility] [address] [place] [address] Kayla Larson, MS [address] [place] [address] Health Maintenance Due Date Last Done Comments [...] filedocumented as of this encounter Care Teams Trucking Supervisor Relationship Specialty Start Date End Date Debbie Arango MD 2907 [facility] [place] [address] PCP - General Internal Medicine 03/04/23 documented as of this encounter
--- OUTSIDE RECORDS SUMMARY | 2024-10-16 13:21 | External Medical Summary | Summary of Care ---
Author Name Unknown Organization [facility] Address [address] [place] [address] Phone [phone] Care Team Providers Care Traffic Analysis Technician Name Role Phone Debbie Arango MD Primary Care Provider Reason for Visit * Reason Onset Date Comments Advice 05/05/2024 Medication Question 05/05/2024 Encounter Details Date Type Department Care Team (Late st Contact Info) Description 05/05/2024 Telephone Cardiology, [facility] [address] [place] [address] Rick Tan, DO 132 [facility] [place] [address] Advice; Medication Question Allergies No known active [...] Relationship to patient: Number to return call: [phone] Reason for call(brief): pulmonary referral Pharmacy: na Provider Name:Dr. Tan Detailed message to office:[place] is able to place insurance referral for pulmonary but pulmonary needsreferral for patient to be seen from Dr. Tan. Thanks * Telephone Encounter - Nigel West LPN - 05/14/2024 11:24 AM EDT VA CHAIR FRAME BUILDER called and stated she is informing patient [...] to patient: Spouse Number to return call: [phone] Reason for call: medication question Pharmacy: [facility] [address] [address] [address] Provider Name: Rick Tan DO [...] metoprolol succinate and midodrine were [facility]. Reviewed new dose/instructions [...] Relationship to patient: Number to return call: [phone] Reason for call(brief): Advice Pharmacy: n/a Provider [...] 4 11:20 AM EDT Office Visit Neurology [facility] [address] [place] [address] Carlos Jiménez, [address] [address] [address] [address] 4 2:30 PM EDT Office Visit Cardiology, [facility] [address] [place] [address] Maria Guadalupe Pederson PA-C 132 [facility] [place] [address] 4 1:00 PM EDT Cardiac Studies Cardiac Studies, [facility] 132 [facility] [place] [address] 4 9:45 AM EDT Hospital Encounter [facility], Endoscopy Suite, HFAM 1, [address] [place] [address] Jose Ramon Morgan MD [address] [place] [address] 4 9:45 AM EDT - 4 11:00 AM EDT Surgery [facility]O [facility], Endoscopy Suite, HFAM 1, [address] [place] [address] Jose Ramon Morgan MD [address] [place], [place] [address] ESOPHAGOGASTRODUODENOSCOPY (EGD), FLEXIBLE, TRANSORAL, DIAGNOSTIC 4 12:15 PM EDT Office Visit Cardiology, [facility] 132 [facility] [place] [address] Rosalba Humphrey [place], 400 [place] [address] 4 11:30 AM EST Telemedicine Cardiovascular Genetics, [facility] 132 [facility] [place] [address] Kayla Larson, MS 132 [facility] [place] [address] Scheduled Procedures Name Priority Associated Diagnoses Date/Ti [...] type documented in this encounter Care Teams Traffic Analysis Technician Relationship Specialty Start Date End Date Debbie Arango MD 2907 [facility] [place] [address] PCP - General Internal Medicine 03/04/23 documented as of this encounter
--- NOTE | 2024-10-16 13:37 | Emergency Department Note ---
Impression & Plan Severe sepsis, Dialysis-associated peritonitis ED Provider Note Name: JIGNESH BIRD Age: 79 Sex: Male Arrives Via: Walk-In Informant: Patient, ED Provider: Milton Jones MD Chief Complaint: Abdominal pain Impression: As per impressions above Medical Decision Making: Pleasant 79-year-old gentleman who does home peritoneal dialysis for his ESRD. Arrives with acute worsening abdominal pain throughout the morning. Diffuse tenderness entire abdomen. Cultures laboratory workup begun and I obtained a CT without contrast of the abdomen pelvis. White blood cell count is elevated, lactic acid is elevated. Of note lactate is greater than 4 however patient appears to have a chronically elevated lactate around 2 so while likely is elevated and not feel he is truly in septic shock at this time. He was given 500 mL IV fluids as he has a history of renal failure rather than 30 mL/kg IV fluids. He was also given further fluids through his IV vancomycin thus further bolus would not be indicated at this time. Patient was given IV cefepime and vancomycin given the findings of severe sepsis. This is despite knowing that we had not yet been able to obtain a peritoneal culture as that will take some time. Patient had been given some IV narcotic with vast improvement in his symptoms. Breathing comfortably no distress on multiple repeat evaluations. Triage/Nursing Notes reviewed by Me Differential:Peritonitis, aortic pathology, ischemia, cholecystitis, electrolyte imbalance, sepsis amongst many other pathologies considered Vital Signs: reviewed and remarkable for no significant abnormalities Interventions: nss bolus, cefepime iv, vancomycin iv, dilaudid 0.5mg iv Labs:ED labs Reviewed by me and remarkable for elevated lactic acid, elevated white blood cell count Imaging:CT of the abdomen pelvis with out contrast as per my interpretation there is some free fluid throughout the abdomen and pelvis there is no evidence of free air. Confirmed by radiologist. EKG:As per my interpretation. Indication sepsis. Normal sinus rhythm at 90 bpm and a QTc of 464. There is no ectopy nor ischemia. When compared to EKG of 04/24/2024 heart rate has increased. Cardiac/Tele Monitoring: Cardiac Monitoring: An Order was placed for continuous cardiac monitoring. The monitor shows a rate of 90 with a normal sinus rhythm. Consults:Discussed with both Dr. Frankel of nephrology as well as Dr. Aguirre of [facility] service Plan: Disposition:Hospitalization. Condition: Good History of Present Illness: 79-year-old gentleman arrives for evaluation of abdominal pain. Patient with rapidly worsening abdominal pain throughout the morning and into the early afternoon. Initially started as mid low back. Associated with some mild nausea. He does peritoneal dialysis overnight and notes that she did talk to nephrology who advised to come to the ER for evaluation of possible peritoneal infection. Patient had a malfunction of his dialysis unit earlier last week for which he was on Omnicef 3 days as there may have been a breach. Currently without any fevers, chills, chest pain, shortness of breath, leg swelling, leg pain or other concerning signs or symptoms. He does periodically make small amount of urine. Past Medical History:See Below Home Medications:See Below Allergies:ndka Vitals:Blood Pressure: 102/67, Pulse 99, RR 20, T 36.4C, O2 95% on RA Physical Exam: GENERAL: Patient is uncomfortable appearing and in moderate distress. RESPIRATORY: No dyspnea. Clear to auscultation and equal bilaterally. CARDIOVASCULAR: Regular rate and rhythm.No murmur appreciated. GASTROINTESTINAL: mildly distended with diffuse TTP and left abdominal port. EXTREMITIES: Normal motion all extremities, no cyanosis, no edema. NEUROLOGIC: Alert and oriented. No focal neurologic deficits appreciated SKIN: No rash, no jaundice, no diaphoresis. PSYCH: Appropriate GCS: 15 Milton Jones MD Past Med/Surg History Problem List (Updated 10/16/24 @ 16:36 by Teena Galvan MD, PhD) Pleural effusion Dialysis-associated peritonitis (Acute) Severe sepsis (Acute) Acute on chronic anemia Pneumoperitoneum Hypothyroid Elevated troponin I level Hypotension Atrial flutter with rapid ventricular response Hypotension Atrial fibrillation with RVR (Acute) Anticoagulant long-term use (Acute) Bright red rectal bleeding (Acute) Bifascicular block Hypertrophic cardiomyopathy Atrial flutter, paroxysmal Acute dyspnea (Acute) Atrial fibrillation with rapid ventricular response Bilateral pulmonary embolism (Acute) Bilateral pulmonary embolism Encounter for pre-operative examination Hyperkalemia Weakness (Acute) Hyperkalemia (Acute) Lab test negative for COVID-19 virus (Acute) Prostate cancer s/p prostatectomy Tobacco use Quit 03/2023 HTN (hypertension) HLD (hyperlipidemia) CKD (chronic kidney disease), stage V (Acute) Medical History ESRD on peritoneal dialysis Renal cyst 3.9 cm cystic lesion-L Paroxysmal A-fib listed in [facility] records CAD (coronary artery disease) PVD (peripheral vascular disease) Dysphagia Anemia Pulmonary nodule MGUS (monoclonal gammopathy of unknown significance) follows with [facility] heme/onc LBBB (left bundle branch block) Hearing deficit Surgical History History of appendectomy History of tooth extraction all teeth removed History of bilateral cataract extraction History of prostatectomy Family History Father Diabetes Other No family history of adverse response to anesthesia Social History Smoking Status: Never smoker Tobacco Type: Cigarettes Second Hand Exposure: No; Do You Dip or Chew Tobacco: No; Hx Alcohol Use: Yes Alcohol type: wine Hx Substance Use: No Preferred Language: Hebrew Communication Ability: Effective Painting Contractor Required: No Beliefs That Will Affect Care: None Current Living Situation: Alone Current Living Situation Comment: in trailer alone Feels Safe at Home: Yes Assistive Devices: Walker Allergies Allergies Allergy/AdvReac Type Severity Reaction Status Date / Time No Known Allergies Allergy Verified 04/13/24 02:01 Home Meds Home Medications Medication Instructions Recorded Confirmed docusate sodium 100 mg capsule 100 mg PO BID 10/13/23 04/21/24 (Stool Softener) V-8 Low Sodium 1 can PO QAM 04/13/24 04/21/24 cholecalciferol (vitamin D3) 50 50 mcg PO AMPM 04/13/24 04/21/24 mcg (2,000 unit) tablet (Vitamin D3) polyethylene glycol 3350 17 8.5 g PO QAM 04/13/24 04/21/24 gram/dose oral powder (Miralax) vitamin B complex-vitamin C-folic 1 tab PO QAM 04/13/24 04/21/24 acid 0.8 mg tablet (Renal-Igor) Previous Rx's Medication Instructions Recorded warfarin 3 mg tablet 3 mg PO DAILY #30 tabs 04/29/24 Results & Data (ED) Vital Signs Vital Signs - 24 hr 10/16/24 13:09 10/16/24 13:48 10/16/24 13:57 Temperature 36.4 C L Temperature Source Oral Pulse Rate 99 H 96 H Pulse Rate [Apical] 94 H Pulse Rhythm [Apical] Irregular Pulse Strength [Apical] Normal Respiratory Rate 20 16 Respiratory Effort / Characteristics Non-Labored Spontaneous Non-Labored Spontaneous Respiratory Depth Normal Normal Respiratory Pattern Regular Regular Blood Pressure 102/67 Blood Pressure [Left Arm] 105/76 Blood Pressure Mean 78 Blood Pressure Mean [Left Arm] 85 Blood Pressure Position Lying Blood Pressure Position [Left Arm] Semi-fowlers Pulse Oximetry 95 93 Oxygen Delivery Method Room Air Room Air Oxygen Flow Rate Sepsis Recent Fever Within 48 Hours No Sepsis New/Unexplained Change in Mental Status No Sepsis Action Taken by Nursing No Action Required 10/16/24 14:30 10/16/24 15:08 10/16/24 16:00 Temperature Temperature Source Pulse Rate Pulse Rate [Apical] 90 87 84 Pulse Rhythm [Apical] Regular Pulse Strength [Apical] Normal Respiratory Rate 22 20 20 Respiratory Effort / Characteristics Non-Labored Spontaneous Non-Labored Spontaneous Respiratory Depth Normal Normal Normal Respiratory Pattern Regular Blood Pressure Blood Pressure [Left Arm] 160/84 H 131/94 96/63 L Blood Pressure Mean Blood Pressure Mean [Left Arm] 109 106 74 Blood Pressure Position Blood Pressure Position [Left Arm] Semi-fowlers Pulse Oximetry 91 92 93 Oxygen Delivery Method Room Air Room Air Nasal Cannula Oxygen Flow Rate 2 Sepsis Recent Fever Within 48 Hours Sepsis New/Unexplained Change in Mental Status Sepsis Action Taken by Nursing 10/16/24 16:15 10/16/24 16:15 Temperature Temperature Source Pulse Rate 73 Pulse Rate [Apical] 81 Pulse Rhythm [Apical] Pulse Strength [Apical] Respiratory Rate 20 Respiratory Effort / Characteristics Respiratory Depth Respiratory Pattern Blood Pressure Blood Pressure [Left Arm] Blood Pressure Mean Blood Pressure Mean [Left Arm] Blood Pressure Position Blood Pressure Position [Left Arm] Pulse Oximetry 94 Oxygen Delivery Method Nasal Cannula Oxygen Flow Rate 2 Sepsis Recent Fever Within 48 Hours Sepsis New/Unexplained Change in Mental Status Sepsis Action Taken by Nursing Laboratory Data 10/16/24 13:41 10/16/24 13:41 Lab Results 10/16/24 10/16/24 Range/Units 13:41 16:00 WBC 14.35 H (4.8-10.8) K/ul RBC 4.44 L (4.70-6.10) M/uL Hgb 13.1 L (14.0-18.0) g/dl Hct 39.2 L (42.0-52.0) % MCV 88.3 (80.0-100.0) fL MCH 29.5 (25.0-34.0) pg MCHC 33.4 (32.0-36.0) g/dL RDW Std Deviation 46.4 H (36.4-46.3) fL RDW Coeff of Maureen 14.4 (11.5-14.5) % Plt Count 266 (130-400) K/uL MPV 10.1 (9.4-12.4) fL Immature Gran % (Auto) 0.5 % Neut % (Auto) 80.7 % Lymph % (Auto) 11.6 % Chilton % (Auto) 4.9 % Eos % (Auto) 2.0 % Baso % (Auto) 0.3 % Neut # (Auto) 11.58 H (1.40-6.50) K/uL Lymph # (Auto) 1.67 (1.20-3.40) K/uL Chilton # (Auto) 0.70 H (0.11-0.59) K/uL Eos # (Auto) 0.28 (0.00-0.50) K/uL Baso # (Auto) 0.05 (0.00-0.20) K/uL Immature Gran # (Auto) 0.07 (0.01-0.20) K/uL Sodium 139 (136-145) mmol/L Potassium 4.4 (3.5-5.1) mmol/L Chloride 99 (98-107) mmol/L Carbon Dioxide 27 (21-32) mmol/L Anion Gap 13 H (3-11) BUN 34 H (6-23) mg/dl Creatinine 7.79 H* (0.6-1.4) mg/dl Est Cr Clr Drug Dosing 7.8 ml/min eGFR 6.56 BUN/Creatinine Ratio 4.4 L (10-20) Glucose 120 H (70-99(Fasting)) mg/dl Lactate 4.2 H* 3.2 H* (0.4-2.0) mmol/L Calcium 8.4 L (8.6-10.3) mg/dl Magnesium 1.2 L (1.7-2.4) mg/dl Total Bilirubin 0.6 (0.2-1.0) mg/dl Direct Bilirubin 0.0 (0-0.2) mg/dl AST 49 H (13-39) U/L ALT 47 (7-52) U/L Alkaline Phosphatase 73 (34-104) U/L Troponin I High Sens 26.2 H (0-20) pg/ml Total Protein 6.0 (6.0-8.3) gm/dl Albumin 3.0 L (3.4-5.0) gm/dl Lipase 31 (11-82) U/L Procalcitonin 0.43 (0-0.5) ng/ml Administered Medications Vancomycin HCl 1,750 mg/ (Sodium Chloride) 535 mls @ 200 mls/hr IV NOW ONE Stop: 10/16/24 17:16 Last Admin: 10/16/24 15:13 Dose: 200 mls/hr Documented By: SARAH Discontinued Medications Hydromorphone HCl (Hydromorphone Inj 0.5 Mg/0.5 Ml Syr) 0.5 mg IV NOW STA Stop: 10/16/24 13:35 Last Admin: 10/16/24 13:56 Dose: 0.5 mg Documented By: Sodium Chloride (Nss) 500 mls @ 999 mls/hr IV .Q31M ONE Stop: 10/16/24 14:04 Last Infusion: 10/16/24 15:09 Dose: Infused Documented By: Admin: 10/16/24 13:57 Dose: 999 mls/hr Documented By: Magnesium Sulfate/Dextrose (Magnesium Sulfate / D5w) 1 gm in 100 mls @ 100 mls/hr IV NOW STA Stop: 10/16/24 15:35 Last Infusion: 10/16/24 16:14 Dose: Infused Documented By: Admin: 10/16/24 15:13 Dose: 100 mls/hr Documented By: SARAH Cefepime HCl (Maxipime 2000mg) 2,000 mg in 20 mls @ 5 mls/min IV NOW STA; Protocol Stop: 10/16/24 14:39 Last Admin: 10/16/24 15:12 Dose: 5 mls/min Documented By: SARAH Miscellaneous (Patient's Height &/Or Weight Needed) 1 each N/A NOW STA Stop: 10/16/24 13:54 Last Admin: 10/16/24 15:12 Dose: Not Given Documented By: [facility] Ondansetron HCl (Ondansetron Inj 2 Mg/Ml 2 Ml Vial) 4 mg IV NOW STA Stop: 10/16/24 13:35 Last Admin: 10/16/24 13:56 Dose: 4 mg Documented By: MR Imaging Data Radiologist's Impression: Abdomen/Pelvis CT 10/16/24 13:41 EXAMINATION: Abdomen and pelvis CT without CLINICAL HISTORY: Abdominal pain PRIORS: 04/22/2024 TECHNIQUE: Contiguous axial images were obtained through the abdomen and pelvis without the use of intravenous contrast. Sagittal and coronal reformations are supplied. FINDINGS: A small to moderate right pleural effusion is present, increased in the interval. Compressive atelectasis present at the lung bases. Advanced atherosclerotic disease present involving the aorta and coronary arteries within the [id number]. Hepatic cirrhosis is noted with a moderate volume of ascites, progressed in the interval. This is predominantly perihepatic and perisplenic. The gallbladder, portal vein, pancreas, spleen, stomach, are unremarkable. Mild hypertrophy of the left adrenal gland noted. Renal atrophy present with no hydronephrosis. Advanced atherosclerotic disease of the abdominal aorta noted. A percutaneous catheter present entering the ventral abdomen in the midline with distal tip in the pelvis, possibly a peritoneal dialysis catheter . Urinary bladder under distended with mild wall thickening. Moderate amount of free fluid present in the pelvis. A large amount of formed stool present throughout the visualized colon. Moderate diverticulosis of the proximal sigmoid colon with no pericolonic inflammatory change. No extraluminal gas. No inguinal adenopathy. Moderate osseous demineralization noted. No high-grade compression fracture. IMPRESSION: 1. Moderate right pleural effusion, increased in the interval. 2. Moderate ascites, predominantly perihepatic and perisplenic with CT appearance of the liver favoring hepatic cirrhosis. 3. Advanced atherosclerotic disease. 4. Moderate proximal sigmoid colon diverticulosis with no CT features of diverticulitis. 5. Circumferential urinary bladder wall thickening, possibly representing under distention. ACT 112: Positive. There are findings on this examination that require communication between the performing entity and the patient following Patient Test Result Information Act ([place] ACT 112) guidelines. Electronically signed by Lucretia Wang 10-16-2024 2:54 PM Discharge Plan Visit Data Chief Complaint: Abdominal Pain Stated Complaint: ABD PAIN AND BACK PAIN ED Provider: Milton Jones Discharge Problem: Severe sepsis, Dialysis-associated peritonitis Forms Stand Alone Forms: [facility] Prescriptions Prescriptions: No Action docusate sodium [Stool Softener] 100 mg Capsule 100 mg PO BID warfarin 3 mg tablet 3 mg PO DAILY Qty: 30 0RF Renal-Igor 0.8 mg Tablet 1 tab PO QAM cholecalciferol (vitamin D3) [Vitamin D3] 50 mcg (2,000 unit) Tablet 50 mcg PO AMPM polyethylene glycol 3350 [Miralax] 17 gram/dose Powder 8.5 g PO QAM V-8 Low Sodium 1 can PO QAM Rx Instructions: drinks 1 5.5 fluid ounces to obtain 600 mg of potassium pt can not tolerate oral capsules of potassium Referrals Referrals: [facility] [Primary Care Provider] - Discharge Problem: Dialysis-associated peritonitis Qualifiers: Encounter type: initial encounter Qualified Code(s): T85.71XA - Infection and inflammatory reaction due to peritoneal dialysis catheter, initial encounter
[2024-10-16] MEDS: ONDANSETRON INJ 2 MG/ML 2 ML VIAL IV STA (13:56)
[2024-10-16] MEDS: HYDROmorphone INJ 0.5 MG/0.5 ML SYR IV STA (13:56)
[2024-10-16] MEDS: SODIUM CHLORIDE 0.9% 500 ML IV ONE (13:57)
[2024-10-16 14:00] LABS: Basophils # (auto) 0.05 K/uL (0.00-0.20); Basophils % (auto) 0.3 %; Eosinophils # (auto) 0.28 K/uL (0.00-0.50); Hematocrit (blood only) 39.2 % (42.0-52.0); Hemoglobin 13.1 g/dl (14.0-18.0); Immature Granulocytes # (auto) 0.07 K/uL (0.01-0.20); Immature Granulocytes % (auto) 0.5 %; Lymphocytes # (auto) 1.67 K/uL (1.20-3.40); Lymphocytes % (auto) 11.6 %; Mean Corpuscular Hemoglobin 29.5 pg (25.0-34.0); Mean Corpuscular Hgb Conc 33.4 g/dL (32.0-36.0); Mean Corpuscular Volume 88.3 fL (80.0-100.0); Mean Platelet Volume 10.1 fL (9.4-12.4); Monocytes % (auto) 4.9 %; Neutrophils # (auto) 11.58 K/uL (1.40-6.50); Neutrophils % (auto) 80.7 %; Platelet Count 266 K/uL (130-400); RDW Coefficient of Variation 14.4 % (11.5-14.5); RDW Standard Deviation 46.4 fL (36.4-46.3); Red Blood Count 4.44 M/uL (4.70-6.10); White Blood Count 14.35 K/ul (4.8-10.8)
[2024-10-16 14:19] LABS: BUN Creatinine Ratio 4.4 (10-20); Bilirubin,Total 0.6 mg/dl (0.2-1.0); Calcium 8.4 mg/dl (8.6-10.3); Creatinine Clr Calc Pharmacy 7.8 ml/min; Magnesium 1.2 mg/dl (1.7-2.4); Potassium 4.4 mmol/L (3.5-5.1)
[2024-10-16 14:26] LABS: Troponin I High Sensitivity 26.2 pg/ml (0-20)
[2024-10-16] MEDS ORDERED: VANCOMYCIN CONSULT ACTIVE PRN ×2 (14:36→17:23)
--- NOTE | 2024-10-16 14:55 | CT Scan Report ---
EXAMINATION: Abdomen and pelvis CT without CLINICAL HISTORY: Abdominal pain PRIORS: 04/22/2024 TECHNIQUE: Contiguous axial images were obtained through the abdomen and pelvis without the use of intravenous contrast. Sagittal and coronal reformations are supplied. FINDINGS: A small to moderate right pleural effusion is present, increased in the interval. Compressive atelectasis present at the lung bases. Advanced atherosclerotic disease present involving the aorta and coronary arteries within the [id number]. Hepatic cirrhosis is noted with a moderate volume of ascites, progressed in the interval. This is predominantly perihepatic and perisplenic. The gallbladder, portal vein, pancreas, spleen, stomach, are unremarkable. Mild hypertrophy of the left adrenal gland noted. Renal atrophy present with no hydronephrosis. Advanced atherosclerotic disease of the abdominal aorta noted. A percutaneous catheter present entering the ventral abdomen in the midline with distal tip in the pelvis, possibly a peritoneal dialysis catheter . Urinary bladder under distended with mild wall thickening. Moderate amount of free fluid present in the pelvis. A large amount of formed stool present throughout the visualized colon. Moderate diverticulosis of the proximal sigmoid colon with no pericolonic inflammatory change. No extraluminal gas. No inguinal adenopathy. Moderate osseous demineralization noted. No high-grade compression fracture. IMPRESSION: 1. Moderate right pleural effusion, increased in the interval. 2. Moderate ascites, predominantly perihepatic and perisplenic with CT appearance of the liver favoring hepatic cirrhosis. 3. Advanced atherosclerotic disease. 4. Moderate proximal sigmoid colon diverticulosis with no CT features of diverticulitis. 5. Circumferential urinary bladder wall thickening, possibly representing under distention. ACT 112: Positive. There are findings on this examination that require communication between the performing entity and the patient following Patient Test Result Information Act ([place] ACT 112) guidelines. Electronically signed by Lucretia Wang 10-16-2024 2:54 PM
[2024-10-16] MEDS: Patient's HEIGHT &/or WEIGHT Needed STA (15:12)
[2024-10-16] MEDS: CEFEPIME 2000MG 2,000 MG/20 ML SYR IV STA (15:12)
[2024-10-16] MEDS: VANCOMYCIN HCL 1,750 MG in SODIUM CHLORIDE 0.9% 500 ML IV ONE (15:13)
[2024-10-16] MEDS: MAGNESIUM SULFATE / D5W 1 GM/100 ML BAG IV STA (15:13)
[2024-10-16] MEDS ORDERED: ACETAMINOPHEN 325 MG TAB PO PRN (15:36)
--- NOTE | 2024-10-16 16:22 | Nephrology Consultation ---
Date of Consultation October 16, 2024 Assessment & Plan (1) Dialysis-associated peritonitis: -has 2 L 2.5% dextrose dwelling 90 minutes and then dialysis nurse to collect CCt w/ diff and cx >> cell count 4676 and 86% PMN in cloudy effluent>> consistent w/ peritonitis -plan routine PD tonight > his TW is 82.5; he is normally on cycler 12 hrs w/ 2.8 L fills, 5 exchanges and day dwell of icodextrin 2L as OP. This evening will do 14 hrs on cycler w/ 2.5L fills and 6 exchanges, 4 @1.5% and 2 @ 2.5% Plan IP abtx tomorrow on daylight > ceftazidime and vancomycin IP w/ doses TBD Defer to primary service for control of abd pain Care coordinated w/ Dr Aguirre re cell count/diff interpretation, need for pain control and possibly for C diff eval; tentative plan to give IP abtx tomorrow by T text; we are in agreement. (2) Severe sepsis: -on empiric IV vanco and cefepime IV for now -got 500 mL empiric saline as well -had signficant diarrhea prior to admission in setting of po abtx > low threshold to check for C diff (3) Hypotension: chronically w/ sbp 90-100s; on OP midodrine 2.5 mg bid which should continue (4) Pleural effusion: increasing R pleural effusion > on coumadin; may need to be tapped History of Present Illness Reason for Consultation: PD patient w/ concern for peritonitis Requesting Physician: Dr Aguirre Attending Physician: Dr. Aguirre History of Present Illness 79-year-old male whom I am asked to evaluate for possible PD peritonitis came to ER this PM at my direction for evaluation of the same after suddenly developing severe back and abdominal pain at the end of his dialysis treatment this AM. pain was 8-10/10 in band horizontally across mid abdomen. 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 Admitted here April 2024 for community acquired versus aspiration pneumonia (silent aspiration as per video swallow study April 2024); March 2024 admission w/ rectal bleeding/hematochezia; colonoscopy that admission remarkable for 3 polyps resected (all adenomata); internal hemorrhoids. His son usually does his PD but has been travelling these past few weeks out of state. His ex- is very involved in the pt's care and has been doing his PD in the son's absence. Last week there was an event on PD w/ concern for contamination > his transfer set was changed and he was started on empiric oral antibiotics; he stopped these yesterday d/t significant diarrhea. denies f/c, cough, change in chronic dyspnea; diarrhea as above; no chest pain; no decreased po, no worse edema. exchanges had been going ok until this AM for past week. no recent falls or weakness. he is anuric. on arrival to ER noted to have WBC 14K w/ ANC of 11.6; K 4.4, lactate 3.2, mag 1.2. He continues to have jags of mid abdominal pain in the course of our interview. His TW is 82.5 kg and his normal RX is 12 hrs on cycler w/ 5 x 2.8L fills and a 2L day dwell of icodextran. with the loss of his residual renal function late last spring, it has been challenging to find a workable PD prescription for him. We have been discussing changing to in center HD. He has appts for vascular access eval but no permanent access yet. Allergies Allergy/AdvReac Type Severity Reaction Status Date / Time No Known Allergies Allergy Verified 04/13/24 02:01 Home Medications Medication Instructions Recorded Confirmed Type Protonix 40 mg PO DAILY 10/16/24 10/16/24 History amiodarone 200 mg tablet 200 mg PO DAILY 10/16/24 10/16/24 History metoprolol succinate 25 mg 25 mg PO BID 10/16/24 10/16/24 History tablet,extended release 24 hr midodrine 2.5 mg tablet 2.5 mg PO BID 10/16/24 10/16/24 History warfarin 5 mg tablet 5 mg PO DAILY 10/16/24 10/16/24 History Patient History Medical History CAP (community acquired pneumonia) Hypotension ESRD on peritoneal dialysis Renal cyst 3.9 cm cystic lesion-L Paroxysmal A-fib listed in [facility] records CAD (coronary artery disease) PVD (peripheral vascular disease) Dysphagia Anemia Pulmonary nodule MGUS (monoclonal gammopathy of unknown significance) follows with [facility] heme/onc LBBB (left bundle branch block) Hearing deficit Surgical History History of appendectomy History of tooth extraction all teeth removed History of bilateral cataract extraction History of prostatectomy Family History Father Diabetes Other No family history of adverse response to anesthesia Social History Smoking Status: Former smoker Tobacco Type: Cigarettes Second Hand Exposure: No; Do You Dip or Chew Tobacco: No; Hx Alcohol Use: Yes Alcohol type: wine Hx Substance Use: No Preferred Language: Slovenian Communication Ability: Effective Signals Intelligence Analysis Manager Required: No Beliefs That Will Affect Care: None Current Living Situation: Personal Care Facility Current Living Situation Comment: walker used at facility Feels Safe at Home: Yes Safety Concerns: Feels Safe At This Time Assistive Devices: Denture - Upper, Denture - Lower, Hearing Aid - Bilateral and Walker Review of Systems 2 Review of Systems: All systems reviewed & are unremarkable except as noted in HPI & below Physical Exam 2 Constitutional: well developed, well nourished and cooperative; no acute distress Eyes: EOM intact bilaterally ENMT: Mouth: + dry oral mucous membranes Respiratory: normal respiratory effort Auscultation: + diminished lung sounds (triny R base) and + crackles (L base) Cardiovascular: Rate/Rhythm: regular rate and regular rhythm Extremities: + edema (RLE 2+; LLE trace at most) Gastrointestinal (Abdomen): Inspection/Auscultation: normal bowel sounds and + abdominal surgical drain present (PD cather in place LLQ) P ercussion/Palpation: + abdomen tender (to mild/moderate palp centrally), + guarding and abdomen soft; no ascites Musculoskeletal: Extremities: strength 5/5 throughout Skin: no rashes, warm and dry Neurologic: ivory, fluent speech, no tremor Psychiatric: Orientation: alert and oriented x 3 MS at baseline Results & Data Vital Signs (Past 12 Hours) Vital Signs Temp Pulse Pulse Resp BP BP Pulse Ox 10/16/24 16:00 84 20 96/63 L 93 10/16/24 15:08 87 20 131/94 92 10/16/24 14:30 90 22 160/84 H 91 10/16/24 13:57 96 H 10/16/24 13:48 94 H 16 105/76 93 10/16/24 13:09 36.4 C L 99 H 20 102/67 95 O2 Del Method O2 Flow Rate 10/16/24 16:00 Nasal Cannula 2 10/16/24 15:08 Room Air 10/16/24 14:30 Room Air 10/16/24 13:57 10/16/24 13:48 Room Air 10/16/24 13:09 Room Air Laboratory Results 10/16/24 13:41 10/16/24 13:[address] a/p non con (images personally reviewed; agree w/ report) 1. Moderate right pleural effusion, increased in the interval. 2. Moderate ascites, predominantly perihepatic and perisplenic with CT appearance of the liver favoring hepatic cirrhosis. 3. Advanced atherosclerotic disease. 4. Moderate proximal sigmoid colon diverticulosis with no CT features of diverticulitis. 5. Circumferential urinary bladder wall thickening, possibly representing under distention. (1) Dialysis-associated peritonitis Encounter type: initial encounter Qualified Code(s): T85.71XA - Infection and inflammatory reaction due to peritoneal dialysis catheter, initial encounter
--- NOTE | 2024-10-16 16:50 | Electrocardiogram Report ---
Test Reason : Blood Pressure : */* mmHG Vent. Rate : 98 BPM Atrial Rate : 98 BPM P-R Int : 192 ms QRS Dur : 116 ms QT Int : 364 ms P-R-T Axes : 18 -72 56 degrees QTcB Int : 464 ms Sinus rhythm with Fusion complexes Left axis deviation Low voltage QRS Right bundle branch block Inferior infarct , age undetermined Abnormal ECG When compared with ECG of 24-Apr-2024 10:15, Significant changes have occurred Confirmed by Janine Burnett ([id number]) on 10/16/2024 4:50:18 PM Referred By: Daily Pic [facility] Confirmed By: Janine Burnett
--- NOTE | 2024-10-16 16:56 | Pharmacy Report ---
Pharmacy PK ABX Note - Date of Service October 16, 2024 - Assessment and Plan Assessment * 79 year old M received cefepime x1 and vancomycin x1 in ED. Admission orders pending. * Indication * sepsis 2nd peritoneal dialysis associated peritonitis. * Recent concern for contamination of PD - started on empiric cefdinir as an outpatient x7 day course started ~10/09. * Patient not likely currently a candidate for intraperitoneal antibiotics due to systemic symptoms * Other PMH: Afib on warfarin, chronic hypotension on midodrine, MGUS * Peritoneal dialysis plan for this evening per nephrology note. Plan Vancomycin * If continued on admission, no additional vancomycin will be needed today. Will order AM random level if continued. Pharmacy will continue to follow and will adjust dose/frequency as necessary. Thank you. Pharmacy has transitioned to AUC monitoring for vancomycin. AUC/ADE is the preferred PK/PD target and is associated with decreased risk of nephrotoxicity compared to traditional trough targets.
[2024-10-16 17:42] LABS: Appearance Peritoneal Fluid Cloudy; Color Peritoneal Fluid Colorless; RBC Peritoneal Fluid Auto < 2000 /uL; WBC Peritoneal Fluid Auto 4676 /ul (0-300)
[2024-10-16 17:50] LABS: Mono,Macrophage,Mesothelial 14 %; Neutrophils, Fluid 86 %
--- NOTE | 2024-10-16 18:43 | History & Physical Report ---
Date of Service October 16, 2024 Assessment & Plan (1) Dialysis-associated peritonitis: (2) Severe sepsis: Plan: 79-year-old male with history of end-stage renal disease on peritoneal dialysis, paroxysmal atrial flutter, hypertension, presenting with abdominal pain x 4 days. Peritoneal dialysis peritonitis Severe sepsis, elevated lactic acid Fortunately, patient is hemodynamically stable, afebrile, clinically nontoxic appearing Peritoneal fluid studies showing WBC count of 4676 Peritoneal fluid culture: Pending Blood cultures: Pending Lactic acid trending down from 4.2, now 3.2 after 500 cc of IV fluids Empiric IV vancomycin plus cefepime Plan to transition to intraperitoneal antibiotics tomorrow as per Dr. Frankel ID consulted Nephro consulted PD already in progress in his room Paroxysmal atrial flutter INR 2.3 Continue metoprolol, amiodarone On Coumadin 5 mg p.o. daily as per [facility] medication list INR check daily Incidental findings on the CT abdomen pelvis: Refer to full report for full details Moderate right pleural effusion-on peritoneal dialysis Advanced atherosclerotic disease, aorta and coronary arteries - needs to be on statin, aspirin if without contraindication, already on Coumadin Hepatic cirrhosis, with moderate ascites-LFTs okay, on peritoneal dialysis Other chronic medical problems: Mixed Restrictive and obstructive lung disease Respiratory status stable Hypertrophic cardiomyopathy No cardiac symptoms at this time Achalasia, dysphagia Easy to chew diet Aspiration precautions DVT prophylaxis On Coumadin Full code Disposition Lives alone Admission and Anticipated Discharge Date Admission Date: October 16, 2024 History of Present Illness Chief Complaint: Abdominal pain x 4 days Primary Care Provider: [facility] 79-year-old male with history of end-stage renal disease on peritoneal dialysis, paroxysmal atrial flutter, hypertension, presenting with abdominal pain x 4 days. Patient receives peritoneal dialysis care of dialysis nurse every evening. 4 days ago, patient started to develop upper quadrant abdominal pain, associated with some nausea and diarrhea. No fevers or chills, headache, chest pain, 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 Patient received the ER with blood pressure 102/67, pulse rate 99, temperature 36.7, respiratory 20. WBC 14.3 Lactic acid 4.2 IMPRESSION: 1. Moderate right pleural effusion, increased in the interval. 2. Moderate ascites, predominantly perihepatic and perisplenic with CT appearance of the liver favoring hepatic cirrhosis. 3. Advanced atherosclerotic disease. 4. Moderate proximal sigmoid colon diverticulosis with no CT features of diverticulitis. 5. Circumferential urinary bladder wall thickening, possibly representing under distention. ACT 112: Positive. There are findings on this examination that require communication between the performing entity and the patient following Patient Test Result Information Act ([place] ACT 112) guidelines. Electronically signed by Felipe Lucretia 10-16-2024 2:54 PM Patient given vancomycin plus cefepime, Bolus of 500 cc of normal saline At the ER. Dr. Frankel notified. Seen resting in bed, comfortable, not in distress, in good spirits Has mild mostly upper quadrant abdominal pain, but otherwise no active nausea, diarrhea, chest pain, 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 Allergies Allergy/AdvReac Type Severity Reaction Status Date / Time No Known Allergies Allergy Verified 04/13/24 02:01 Home Medications Medication Instructions Recorded Confirmed Type Protonix 40 mg PO DAILY 10/16/24 10/16/24 History amiodarone 200 mg tablet 200 mg PO DAILY 10/16/24 10/16/24 History metoprolol succinate 25 mg 25 mg PO BID 10/16/24 10/16/24 History tablet,extended release 24 hr midodrine 2.5 mg tablet 2.5 mg PO BID 10/16/24 10/16/24 History warfarin 5 mg tablet 5 mg PO DAILY 10/16/24 10/16/24 History Past Med/Surg History Problem List (Updated 10/16/24 @ 16:36 by Teena Galvan MD, PhD) Pleural effusion Dialysis-associated peritonitis (Acute) Severe sepsis (Acute) Acute on chronic anemia Pneumoperitoneum Hypothyroid Elevated troponin I level Hypotension Atrial flutter with rapid ventricular response Hypotension Atrial fibrillation with RVR (Acute) Anticoagulant long-term use (Acute) Bright red rectal bleeding (Acute) Bifascicular block Hypertrophic cardiomyopathy Atrial flutter, paroxysmal Acute dyspnea (Acute) Atrial fibrillation with rapid ventricular response Bilateral pulmonary embolism (Acute) Bilateral pulmonary embolism Encounter for pre-operative examination Hyperkalemia Weakness (Acute) Hyperkalemia (Acute) Lab test negative for COVID-19 virus (Acute) Prostate cancer s/p prostatectomy Tobacco use Quit 03/2023 HTN (hypertension) HLD (hyperlipidemia) CKD (chronic kidney disease), stage V (Acute) Medical History CAP (community acquired pneumonia) Hypotension ESRD on peritoneal dialysis Renal cyst 3.9 cm cystic lesion-L Paroxysmal A-fib listed in [facility] records CAD (coronary artery disease) PVD (peripheral vascular disease) Dysphagia Anemia Pulmonary nodule MGUS (monoclonal gammopathy of unknown significance) follows with [facility] heme/onc LBBB (left bundle branch block) Hearing deficit Surgical History History of appendectomy History of tooth extraction all teeth removed History of bilateral cataract extraction History of prostatectomy Family History Father Diabetes Other No family history of adverse response to anesthesia Social History Smoking Status: Former smoker Tobacco Type: Cigarettes Second Hand Exposure: No; Do You Dip or Chew Tobacco: No; Hx Alcohol Use: Yes Alcohol type: wine Hx Substance Use: No Preferred Language: Telugu Communication Ability: Effective Physical Testing Supervisor Required: No Beliefs That Will Affect Care: None Current Living Situation: Personal Care Facility Current Living Situation Comment: walker used at facility Feels Safe at Home: Yes Safety Concerns: Feels Safe At This Time Assistive Devices: Denture - Upper, Denture - Lower, Hearing Aid - Bilateral and Walker Review of Systems Review of Systems: all noted and negative except for above Physical Exam Physical Exam: General- oriented x 3, not in distress, speaks in sentences with no effort or accessory muscle use Head- atraumatic Eyes- PERRL, EOMI, anicteric ENT- oropharynx clear Neck- supple, no JVD, no adenopathy, no thyromegaly; carotids +2/2, no bruits appreciated Lungs- clear to auscultation bilaterally, no rales/wheezes Heart- normal rate, regular rhythm; no murmur, no gallop, no rub appreciated Abdomen- normal bowel sounds, nondistended, soft, Mild upper quadrant tenderness, no masses or hepatosplenomegaly PD tubing in place, no signs of infection Extremities- no pretibial edema, no calf tenderness; peripheral pulses intact Neuro- alert, oriented x 3; CN 2-12 grossly intact; motor 5/5 bilaterally;sensation 100% on all extremities; no other gross focal neurologic deficits Skin- warm & dry Results & Data Results & Data Vital Signs (Past 12 Hours) Vital Signs Temp Pulse Pulse Pulse Resp BP BP 10/16/24 18:09 10/16/24 17:47 80 10/16/24 17:28 36.4 C L 85 18 103/64 10/16/24 16:59 80 20 99/62 L 10/16/24 16:15 81 10/16/24 16:15 73 20 10/16/24 16:00 84 20 96/63 L 10/16/24 15:08 87 20 131/94 10/16/24 14:30 90 22 160/84 H 10/16/24 13:57 96 H 10/16/24 13:48 94 H 16 105/76 10/16/24 13:09 36.4 C L 99 H 20 102/67 Pulse Ox O2 Del Method O2 Flow Rate 10/16/24 18:09 Room Air 10/16/24 17:47 10/16/24 17:28 94 Room Air 10/16/24 16:59 94 Nasal Cannula 2 10/16/24 16:15 10/16/24 16:15 94 Nasal Cannula 2 10/16/24 16:00 93 Nasal Cannula 2 10/16/24 15:08 92 Room Air 10/16/24 14:30 91 Room Air 10/16/24 13:57 10/16/24 13:48 93 Room Air 10/16/24 13:09 95 Room Air Code Status & VTE Plan VTE Prophylaxis Plan VTE Prophylaxis will be ordered: Yes (1) Dialysis-associated peritonitis Encounter type: initial encounter Qualified Code(s): T85.71XA - Infection and inflammatory reaction due to peritoneal dialysis catheter, initial encounter
[2024-10-16 19:28] LABS: INR 1.8 (0.9-1.1); Prothrombin Time 18.8 Seconds (9.0-12.0)
[2024-10-16] MEDS: NYSTATIN 500,000 UNIT TAB PO SCH (21:15)
[2024-10-16] MEDS: MIDODRINE HCL 2.5 MG TAB PO SCH (21:29)
[2024-10-16] MEDS: METOPROLOL SUCC 25MG EXT REL TAB PO SCH (21:29)
[2024-10-17] MEDS: ACETAMINOPHEN 1,000 MG/100 ML VIAL IV STA (03:04)
[2024-10-17] MEDS: ALBUT/IPRATROP 3MG/0.5MG NEB 3 ML VIAL NEB STA (03:08)
--- NOTE | 2024-10-17 03:44 | XRay Report ---
EXAM: XR chest 1V portable CLINICAL HISTORY: SOB TECHNIQUE: An X-ray image of the chest was obtained in AP view. COMPARISON: Chest x-ray dated 04/21/[address] chest dated 04/22/2024 FINDINGS: Right lower lung zone atelectatic band. Elevated right hemidiaphragm. No focal consolidation or collapse was seen. Normal cardiac size. No pleural effusion or pneumothorax. Normal mediastinal contour. Clear both hilar shadows. IMPRESSION: 1. No acute cardiopulmonary abnormality was detected. 2. Right lower lung zone atelectatic band. 3. Elevated right hemidiaphragm. 4. No significant changes from previous studies. Electronically signed by Torie Merino 10-17-2024 03:43 AM
[2024-10-17 04:59] LABS: Basophils # (auto) 0.05 K/uL (0.00-0.20); Basophils % (auto) 0.3 %; Eosinophils # (auto) 0.01 K/uL (0.00-0.50); Eosinophils % (auto) 0.1 %; Hematocrit (blood only) 32.6 % (42.0-52.0); Immature Granulocytes # (auto) 0.09 K/uL (0.01-0.20); Immature Granulocytes % (auto) 0.5 %; Lymphocytes # (auto) 1.35 K/uL (1.20-3.40); Mean Corpuscular Hemoglobin 29.7 pg (25.0-34.0); Mean Corpuscular Hgb Conc 33.7 g/dL (32.0-36.0); Mean Corpuscular Volume 88.1 fL (80.0-100.0); Mean Platelet Volume 10.8 fL (9.4-12.4); Monocytes # (auto) 1.56 K/uL (0.11-0.59); Monocytes % (auto) 8.1 %; Platelet Count 233 K/uL (130-400); RDW Coefficient of Variation 14.5 % (11.5-14.5); RDW Standard Deviation 46.5 fL (36.4-46.3); White Blood Count 19.36 K/ul (4.8-10.8)
[2024-10-17 05:14] LABS: BUN Creatinine Ratio 5.1 (10-20); Calcium 7.6 mg/dl (8.6-10.3); Potassium 4.6 mmol/L (3.5-5.1)
[2024-10-17 05:21] LABS: INR 1.8 (0.9-1.1); Prothrombin Time 18.7 Seconds (9.0-12.0)
[2024-10-17] MEDS: WARFARIN SOD 5 MG TAB PO SCH (08:46)
[2024-10-17] MEDS: PANTOprazole 40 MG TAB PO SCH (08:46)
[2024-10-17] MEDS: AMIODARONE 200 MG TAB PO SCH (08:47)
[2024-10-17] MEDS ORDERED: VANCOMYCIN HCL 1,250 MG in SODIUM CHLORIDE 0.9% 250 ML IV SCH (09:00)
[2024-10-17] MEDS ORDERED: VANCOMYCIN HCL IP ONE (09:00)
[2024-10-17] MEDS ORDERED: DIALYSIS IP ONE (09:00)
[2024-10-17] MEDS ORDERED: PERITONEAL 1.5% IP ONE (09:00)
[2024-10-17] MEDS ORDERED: CEFTAZIDIME IP ONE (09:00)
[2024-10-17] MEDS: PERITONEAL 1.5% IP ONE (09:53)
[2024-10-17] MEDS: VANCOMYCIN HCL IP ONE (09:53)
[2024-10-17] MEDS: DIALYSIS IP ONE (09:53)
[2024-10-17] MEDS: CEFTAZIDIME IP ONE (09:53)
--- NOTE | 2024-10-17 12:36 | Pharmacy Report ---
Pharmacy PK ABX Note - Date of Service October 17, 2024 - Assessment and Plan Assessment * 79 year old M received cefepime x1 and vancomycin x1 in ED yesterday. Transitioning to intraperitoneal (IP) antibiotics this AM starting w a 6-8 hr dwell containing ceftazidime 1250 mg and vancomycin 2000 mg. * Indication * Sepsis 2nd peritoneal dialysis associated peritonitis. * Recent concern for contamination of PD - started on empiric cefdinir as an outpatient x7 day course started ~10/09. (Note - failure of cefdinir as an outpatient may be due to lack of Enterococcal coverage - see cultures below). * Patient was initially started in IV antibiotics 2nd systemic symptoms, but was transitioned to IP antibiotics 10/17 AM * Other PMH: Afib on warfarin, chronic hypotension on midodrine, MGUS * Cultures * 10/16 Blood cultures - no growth to date * 10/16 Peritoneal culture - E. faecalis (sensitivities pending, but per 2022 antibiogram, historically 100% susceptible to ampicillin) * Discussed extensively w Dr. Galvan 10/17 * Random vanco level this AM therapeutic at 16.3 mcg/mL from the IV dose received yesterday. Additional IP vancomycin will likely produce a supratherapeutic *systemic* level tomorrow AM. However, from efficacy standpoint, high concentrations if *IP* antibiotics may be more effective for peritonitis, and patient has not yet received any IP antibiotics (prior to PD bag ordered this AM). E. faecalis growing and vancomycin is being used to cover this. From a toxicity standpoint, patient makes very little residual urine therefore toxicity concerns there are lesser than for other patients. Risk/benefit favors IP vancomycin today at current dose, acknowledging supratherapeutic systemic levels are possible for a few days. Will continue with currently dosed vanco 2000 mg IP today. * Discussed using amoxicillin 500 mg po TID in-lieu of IP vancomycin for E. faecalis peritonitis (almost certainly ampicillin sensitive, see cultures above) - data are conflicting on what may be best and plan for now is to continue with IP vancomycin, with ongoing IP doses based on systemic levels * Ongoing empiric gram negative coverage with IP ceftazidime still reasonable now until cultures have more time to ascertain if peritonitis is polymicrobial. Ongoing empiric systemic coverage with IV cefepime has been discontinued (discussed w Dr. Shrestha as well) * Vancomycin IP ongoing * Systemic symptoms for the patient noted (WBC elevation), but per H&P - hemodynamically stable, afebrile, clinically nontoxic appearing. Of note, systemic vancomycin level is therapeutic and anticipate we will also be able to keep systemic levels of vancomycin therapeutic with ongoing IP administration * Ongoing IP vancomycin will depend on systemic level. * Anticipate no additional IP vancomycin will be needed for several days, with likely maintaining both intraperitoneal and systemic therapeutic concentrations * Goal AM random level / trough greater than 15 mcg/mL. Plan Vancomycin * Continue with 6-8 hr peritoneal dwell today containing ceftazidime 1250 mg and vancomycin 2000 mg * Repeat random level tomorrow AM. Anticipate systemic level will be supratherapeutic tomorrow and possibly ongoing as well, but this is likely reasonable (see above) Pharmacy will continue to follow and will adjust dose/frequency as necessary. Thank you. Pharmacy has transitioned to AUC monitoring for vancomycin. AUC/ADE is the preferred PK/PD target and is associated with decreased risk of nephrotoxicity compared to traditional trough targets.
--- NOTE | 2024-10-17 14:58 | Hospitalist Progress Note ---
Date of Service October 17, 2024 Assessment & Plan (1) Dialysis-associated peritonitis: Plan: 79-year-old male with history of end-stage renal disease on peritoneal dialysis, paroxysmal atrial flutter, hypertension, presenting with abdominal pain x 4 days [employer]. He is being managed for the following: Peritoneal dialysis peritonitis Severe sepsis, elevated lactic acid At presentation: patient is hemodynamically stable, afebrile, clinically nontoxic appearing. Pt has abd pain x 4 days. Peritoneal fluid studies with elevated WBC. Lactate trended down from 4.2. Follow admitting peritoneal fluid culture and blood culture. Discussed with nephrology, plan to treat with intraperitoneal vancomycin and ceftazidime. DC IV antibiotic. Nephrology on board to help with dialysis and guidance with peritoneal dialysis related peritonitis. ID consulted, await recommendation. Paroxysmal atrial flutter Continue metoprolol, amiodarone On Coumadin 5 mg p.o. daily [facility] INR check daily Incidental findings on the CT abdomen pelvis: Refer to full report for full details Moderate right pleural effusion-on peritoneal dialysis Advanced atherosclerotic disease, aorta and coronary arteries - needs to be on statin, aspirin if without contraindication, already on Coumadin. Will get lipid profile. Hepatic cirrhosis, with moderate ascites-LFTs okay, on peritoneal dialysis Other chronic medical problems:Continue with/resume home meds as when able. Mixed Restrictive and obstructive lung disease: Respiratory status stable Hypertrophic cardiomyopathy: No cardiac symptoms at this time Achalasia, dysphagia: Easy to chew diet. Aspiration precautions DVT prophylaxis: On Coumadin Full code Admission and Anticipated Discharge Date Admission Date: October 16, 2024 Subjective Patient was seen and examined at bedside. Patient was lying in bed, on 2 L oxygen via nasal cannula, NAD. Patient upset because he got abdominal pain during peritoneal dialysis last evening. Patient reports eating okay and moving bowels okay, denies fever or chills or sore throat or cough. Physical Exam Physical Exam: General- oriented x 3, not in distress, speaks in sentences with no effort or accessory muscle use Head- atraumatic Eyes- PERRL, EOMI, anicteric ENT- oropharynx clear Neck- supple, no JVD, no adenopathy, no thyromegaly; carotids +2/2, no bruits appreciated Lungs- clear to auscultation bilaterally, no rales/wheezes Heart- normal rate, regular rhythm; no murmur, no gallop, no rub appreciated Abdomen- normal bowel sounds, nondistended, soft, No tenderness, no masses or hepatosplenomegaly PD tubing in place, no signs of infection Extremities- no pretibial edema, no calf tenderness; peripheral pulses intact Neuro- alert, oriented x 3; CN 2-12 grossly intact; motor 5/5 bilaterally;sensation 100% on all extremities; no other gross focal neurologic deficits Skin- warm & dry Results & Data Results & Data Vital Signs (Past 12 Hours) Vital Signs Temp Pulse Pulse Pulse Resp BP Pulse Ox 10/17/24 13:55 65 10/17/24 11:21 36.2 C L 65 115/69 94 10/17/24 10:00 36.4 C L 75 18 10/17/24 08:30 36.5 C 18 10/17/24 08:04 10/17/24 07:05 36.5 C 73 18 102/64 95 10/17/24 07:01 72 10/17/24 03:08 70 18 94 10/17/24 02:55 36.7 C 74 26 H 103/60 95 O2 Del Method O2 Flow Rate 10/17/24 13:55 10/17/24 11:21 Nasal Cannula 2 10/17/24 10:00 10/17/24 08:30 10/17/24 08:04 Nasal Cannula 2 10/17/24 07:05 Nasal Cannula 2 10/17/24 07:01 10/17/24 03:08 Nasal Cannula 2 10/17/24 02:55 Nasal Cannula 2 (1) Dialysis-associated peritonitis Encounter type: initial encounter Qualified Code(s): T85.71XA - Infection and inflammatory reaction due to peritoneal dialysis catheter, initial encounter
[2024-10-17] MEDS ORDERED: CEFEPIME 1000MG 1,000 MG/10 ML SYR IV SCH (15:00)
--- NOTE | 2024-10-17 23:07 | Nephrology Progress Note ---
Date of Service October 17, 2024 Assessment & Plan (1) Dialysis-associated peritonitis: Plan: pt's extraneal bag fell off its tubing early 10/09 > all was clamped; he had a transfer set change on 10/11 and started po abtx/omnicef on 10/09 or 10/10; stopped this approx 10/14 d/t diarrhea. also had issues w/ machine malfunction prior to admission and actually received new machine on 10/14. pablo dunlap worked well thrus > 10/15 adn to Sat 10/16 aM but he called her w/ back pain adn later abdo pain. lots of diarrhea while on omnicef > 10/11-10/13 3-4 liquid BM daily; decreasing by 10/15. ..PT W/ MILD COGNITIVE IMPAIRMENT/EARLY DEMENTIA >> not a reliable historian. >> 10/16 cell count 4676 and 86% PMN in cloudy effluent>> consistent w/ peritonitis >>>plan to repeat fluid studies on 10/19 -plan to coutinue routine PD on script modified based on hospital stock fluids (no ico here, for ex) > his TW is 82.5; he is normally on cycler 12 hrs w/ 2.8 L fills, 5 exchanges and day dwell of icodextrin 2L as OP. This evening will again do 14 hrs on cycler w/ 2.5L fills and 6 exchanges, 4 @1.5% and 2 @ 2.5% Plan IP abtx tomorrow on daylight > ceftazidime 1250 mg in 2L 1.5% most likely and no IP vanco assuming level > 20 repeat vanco level 10/19 (pharmacy following) Other abtx IV stopped On 11/19 based on f/u studies and cx results , determine next steps w/ abtx but favor at that point assuming we have only E faecalis in dialysis and assuming he is clinically responding, woudl change to amoxicillin tid 500 mg >>>continue nystatin qid for fungal peritonitis prophylaxis Defer to primary service for control of abd pain adn for bowel regimen Care coordinated w/ Dr Shrestha multiple times throuigh the day re culture results, proposed/planned abtx and delivery route, best diet via TText; we are in agreement. Multiple disucssions today w/ dialysis nurses (30 min total), floor nurses (15 min total), pharmacy (25 minutes total) re treatment planning Ex fortunately at bedside on rounds and we dialogued for approx 25 minutes. (2) Severe sepsis: Plan: -on empiric IV vanco and cefepime IV for now -got 500 mL empiric saline as well -had signficant diarrhea prior to admission in setting of po abtx > low threshold to check for C diff (3) Hypotension: Plan: chronically w/ sbp 90-100s; on OP midodrine 2.5 mg bid which should continue (4) Pleural effusion: Plan: increasing R pleural effusion > on coumadin; may need to be tapped Plan Medically complex case; 100 minutes spent in direct care of patient including dialogue w/ teams, literature review, complex work order sorting clerk and verification as above. Admission and Anticipated Discharge Date Admission Date: October 16, 2024 Subjective late entry for late afternoon rounds on this patient. he had significant difficulty w/ PD overnight last evening into today w/ many many alarms; floor nurses had challenges getting needed dialysis support; pt had very full abdomen at one point and some abdominal pain/distension. only one fill succeeded of 6 ordered. of this he absorbed 500 cc. dislikes soft diet and eating widely/well so no need for this per ex , his caregiver. denies sob. some abd pain still intermittently but overall much better. no diarrhea. cxs growing E faecalis from dialysate 14 hrs after plating. pt very frustrated, wants to get out of hospital Review of Systems 2 Review of Systems: All systems reviewed & are unremarkable except as noted in Subjective Physical Exam 2 Constitutional: well developed, well nourished and cooperative; no acute distress Eyes: EOM intact bilaterally ENMT: Mouth: + dry oral mucous membranes Respiratory: normal respiratory effort Auscultation: + diminished lung sounds (triny R base) and + crackles Cardiovascular: Rate/Rhythm: regular rate and regular rhythm Extremities: + edema (RLE 2+; LLE trace at most) Gastrointestinal (Abdomen): Inspection/Auscultation: normal bowel sounds and + abdominal surgical drain present (PD cather in place LLQ) P ercussion/Palpation: abdomen soft; abdomen nontender, no guarding and no ascites Musculoskeletal: Extremities: strength 5/5 throughout Skin: no rashes, warm and dry Psychiatric: Orientation: alert and oriented x 3 Results & Data Vital Signs (Past 12 Hours) Vital Signs Temp Pulse Pulse Pulse Resp BP Pulse Ox 10/17/24 20:00 10/17/24 19:38 36.6 C 53 L 18 100/60 95 10/17/24 18:05 36.5 C 68 20 10/17/24 16:00 10/17/24 15:15 36.8 C 64 18 100/66 92 10/17/24 13:55 65 10/17/24 11:21 36.2 C L 65 115/69 94 Pulse Ox O2 Del Method O2 Del Method O2 Flow Rate O2 Flow Rate 10/17/24 20:00 Room Air 10/17/24 19:38 Room Air 10/17/24 18:05 10/17/24 16:00 92 Nasal Cannula 2 10/17/24 15:15 Nasal Cannula 2 10/17/24 13:55 10/17/24 11:21 Nasal Cannula 2 Laboratory Results 10/17/24 03:36 10/17/24 03:36 (1) Dialysis-associated peritonitis Encounter type: initial encounter Qualified Code(s): T85.71XA - Infection and inflammatory reaction due to peritoneal dialysis catheter, initial encounter
[2024-10-18 06:34] LABS: Hematocrit (blood only) 29.4 % (42.0-52.0); Hemoglobin 10.1 g/dl (14.0-18.0); Mean Corpuscular Hemoglobin 29.9 pg (25.0-34.0); Mean Corpuscular Hgb Conc 34.4 g/dL (32.0-36.0); Mean Platelet Volume 10.7 fL (9.4-12.4); Platelet Count 203 K/uL (130-400); RDW Coefficient of Variation 14.4 % (11.5-14.5); RDW Standard Deviation 46.2 fL (36.4-46.3); Red Blood Count 3.38 M/uL (4.70-6.10); White Blood Count 9.53 K/ul (4.8-10.8)
[2024-10-18 07:03] LABS: BUN Creatinine Ratio 5.3 (10-20); Calcium 7.8 mg/dl (8.6-10.3); Chol HDL Ratio 4.3 (0-5); Creatinine Clr Calc Pharmacy 9.6 ml/min; Magnesium 1.4 mg/dl (1.7-2.4); Phosphorus 4.6 mg/dl (2.5-4.9); Potassium 3.8 mmol/L (3.5-5.1)
--- NOTE | 2024-10-18 09:44 | Pharmacy Report ---
Pharmacy PK ABX Note - Date of Service October 18, 2024 - Assessment and Plan Assessment 10/18 * Based on the vanco level of 24mcg/mL drawn this morning, additional vancomycin will not be added to the IP solution today. Ceftazadime 1250mg to be added to dialysate solution today and is to dwell for 6-8 hours. * Sensitivities still pending for E. faecalis in peritoneal dialysis fluid culture. Blood cultures x 2 from 10/16 are still negative to date (preliminary) 10/17 * 79 year old M received cefepime x1 and vancomycin x1 in ED yesterday. Transitioning to intraperitoneal (IP) antibiotics this AM starting w a 6-8 hr dwell containing ceftazidime 1250 mg and vancomycin 2000 mg. * Indication * Sepsis 2nd peritoneal dialysis associated peritonitis. * Recent concern for contamination of PD - started on empiric cefdinir as an outpatient x7 day course started ~10/09. (Note - failure of cefdinir as an outpatient may be due to lack of Enterococcal coverage - see cultures below). * Patient was initially started in IV antibiotics 2nd systemic symptoms, but was transitioned to IP antibiotics 10/17 AM * Other PMH: Afib on warfarin, chronic hypotension on midodrine, MGUS * Cultures * 10/16 Blood cultures - no growth to date * 10/16 Peritoneal culture - E. faecalis (sensitivities pending, but per 2022 antibiogram, historically 100% susceptible to ampicillin) * Discussed extensively w Dr. Galvan 10/17 * Random vanco level this AM therapeutic at 16.3 mcg/mL from the IV dose received yesterday. Additional IP vancomycin will likely produce a supratherapeutic *systemic* level tomorrow AM. However, from efficacy standpoint, high concentrations if *IP* antibiotics may be more effective for peritonitis, and patient has not yet received any IP antibiotics (prior to PD bag ordered this AM). E. faecalis growing and vancomycin is being used to cover this. From a toxicity standpoint, patient makes very little residual urine therefore toxicity concerns there are lesser than for other patients. Risk/benefit favors IP vancomycin today at current dose, acknowledging supratherapeutic systemic levels are possible for a few days. Will continue with currently dosed vanco 2000 mg IP today. * Discussed using amoxicillin 500 mg po TID in-lieu of IP vancomycin for E. faecalis peritonitis (almost certainly ampicillin sensitive, see cultures above) - data are conflicting on what may be best and plan for now is to continue with IP vancomycin, with ongoing IP doses based on systemic levels * Ongoing empiric gram negative coverage with IP ceftazidime still reasonable now until cultures have more time to ascertain if peritonitis is polymicrobial. Ongoing empiric systemic coverage with IV cefepime has been discontinued (discussed w Dr. Shrestha as well) * Vancomycin IP ongoing * Systemic symptoms for the patient noted (WBC elevation), but per H&P - hemodynamically stable, afebrile, clinically nontoxic appearing. Of note, systemic vancomycin level is therapeutic and anticipate we will also be able to keep systemic levels of vancomycin therapeutic with ongoing IP administration * Ongoing IP vancomycin will depend on systemic level. * Anticipate no additional IP vancomycin will be needed for several days, with likely maintaining both intraperitoneal and systemic therapeutic concentrations * Goal AM random level / trough greater than 15 mcg/mL. Plan Vancomycin * No vancomycin needed today due to vanco level of 24mg/dL . Continue with 6-8 hr peritoneal dwell today containing ceftazidime 1250 mg alone. * Repeat random level tomorrow AM. Goal is to maintain vanco level > 15mcg/mL. Pharmacy will continue to follow and will adjust dose/frequency as necessary. Thank you. Pharmacy has transitioned to AUC monitoring for vancomycin. AUC/ADE is the preferred PK/PD target and is associated with decreased risk of nephrotoxicity compared to traditional trough targets.
--- NOTE | 2024-10-18 09:54 | Dialysis Progress Note ---
Date of Service October 18, 2024 Assessment & Plan Admission and Anticipated Discharge Date Admission Date: October 16, 2024 Subjective Assessment & Plan (1) Dialysis-associated peritonitis: 2 ESRD on PD Plan: Growing e fecalis. Currently on IP vancomicin + Ceftazidime. Plan is to continue both till final report. but IP vanco should suffice then eventually change to oral amoxicillin. Appears to have a good bit of edema. for tonight use 2.5% 4 bags and 1.5% 2 bags to try little bit more UF given sig edema (2) Severe sepsis: Plan: -on ip vanco and Ceftazidime for now -had significant diarrhea prior to admission in setting of po abtx > low threshold to check for C diff (3) Hypotension: Plan: chronically w/ sbp 90-100s; on OP midodrine 2.5 mg bid which should continue. in fact will raise to 5 bid to allow for more UF tonight (4) Pleural effusion: Plan: increasing R pleural effusion > on coumadin; may need to be tapped Subjective Seen for peritoneal dialysis. last night he had no issues with PD unlike Friday night. total UF about 850 ml cxs growing E faecalis from dialysate. pt very frustrated, wants to get out of hospital Review of Systems Review of Systems: All systems reviewed & are unremarkable except as noted in Subjective Physical Exam Constitutional: well developed, well nourished and cooperative; no acute distress Eyes: EOM intact bilaterally ENMT: Mouth: + dry oral mucous membranes Respiratory: normal respiratory effort Auscultation: + diminished lung sounds (triny R base) and + crackles Cardiovascular: Rate/Rhythm: regular rate and regular rhythm Extremities: + 2 edema Gastrointestinal (Abdomen): + abdominal surgical drain present (PD cather in place LLQ) abdomen soft; abdomen nontender, no guarding and no ascites Musculoskeletal: Extremities: strength 5/5 throughout Skin: no rashes, warm and dry Psychiatric: Orientation: alert and oriented x 3 Results & Data Vital Signs (Past 12 Hours) Vital Signs Temp Pulse Pulse Pulse Resp BP Pulse Ox 10/18/24 08:28 36.4 C 64 20 113/75 96 10/18/24 05:46 68 10/18/24 03:45 36.7 C 64 18 104/67 94 10/17/24 23:23 36.5 C 58 L 16 104/60 96 10/17/24 22:07 57 L O2 Del Method O2 Flow Rate 10/18/24 08:28 Nasal Cannula 2 10/18/24 05:46 10/18/24 03:45 Room Air 10/17/24 23:23 Room Air 10/17/24 22:07
[2024-10-18] MEDS: CEFTAZIDIME IP ONE (10:04)
[2024-10-18] MEDS: PERITONEAL 1.5% IP ONE (10:04)
[2024-10-18] MEDS: DIALYSIS IP ONE (10:04)
--- NOTE | 2024-10-18 13:40 | Hospitalist Progress Note ---
Date of Service October 18, 2024 Assessment & Plan (1) Dialysis-associated peritonitis: Plan: 79-year-old male with history of end-stage renal disease on peritoneal dialysis, paroxysmal atrial flutter, hypertension, presenting with abdominal pain x 4 days [employer]. He is being managed for the following: Peritoneal dialysis peritonitis Severe sepsis, elevated lactic acid At presentation: patient is hemodynamically stable, afebrile, clinically nontoxic appearing. Pt has abd pain x 4 days. Peritoneal fluid studies 10/16 cell count 4676 and 86% PMN in cloudy effluent - consistent w/ peritonitis Lactate trended down from 4.2. Follow admitting peritoneal fluid culture and blood culture. Per Nephro plan to repeat cultures 10/19 Discussed with nephrology, plan to treat with intraperitoneal vancomycin and ceftazidime. DC IV antibiotic. Nephrology on board to help with dialysis and guidance with peritoneal dialysis related peritonitis. Per Nephro continue IP Ceftazidime and vanco( as levels allow), repeat fluid studies 10/19, if only E Faecalis can likely d/c on Oral amoxicillin 500mg TID, continue nystatin for fungal prophylaxis ID consulted, await recommendation. Paroxysmal atrial flutter Continue metoprolol, amiodarone On Coumadin 5 mg p.o. daily as per [facility] medication list INR check daily Incidental findings on the CT abdomen pelvis: Refer to full report for full details Moderate right pleural effusion-on peritoneal dialysis Advanced atherosclerotic disease, aorta and coronary arteries - needs to be on statin, aspirin if without contraindication, already on Coumadin. -Lipid panel as follows : Total Chol 126, LDL 73, HDL 29 Hepatic cirrhosis, with moderate ascites-LFTs okay, on peritoneal dialysis Will discuss with ex Chava tomorrow regarding starting statin and asa Other chronic medical problems:Continue with/resume home meds as when able. Mixed Restrictive and obstructive lung disease: Respiratory status stable Hypertrophic cardiomyopathy: No cardiac symptoms at this time Achalasia, dysphagia: Easy to chew diet. Aspiration precautions DVT prophylaxis: On Coumadin Full code pt was seen and examined in collaboration with Dr. Shrestha, please see addendum I spent a total of 52 minutes reviewing notes, outpatient records, labs, medication, coordinating, documenting and providing care for this patient excluding time spent in the performance of separately billed services. Spoke to pts ex chava for a total of 8 minutes, PT/OT orders placed, she agrees with above assessment and treatment plan Admission and Anticipated Discharge Date Admission Date: October 16, 2024 Supervising Physician Co-Signing Physician Notes Patient was not seen and examined. Subjective He offers no acute concerns. He denies abd pain. States he tolerated PD well last night. Denies f/c/s, chest pain, sob, n/v. He is tolerating his breakfast. Review of Systems Review of Systems: All systems reviewed & are unremarkable except as noted in HPI & below Physical Exam Physical Exam: Gen: WD/WN, NAD, A&O x3 HEENT: Normocephalic, atraumatic, conjunctivae moist, sclerae anicteric, mucous membranes moist. Lung: Clear to Auscultation bilaterally with decreased BS at bases, no wheezes/rales/rhonchi Heart: Regular rate, regular rhythm, no murmurs, rubs, or gallops Abdomen: Soft, NT, protuberant + PD cath dressing CDI Extremities: ++ edema Skin: Warm, no rash, negative turgor. Results & Data Results & Data Vital Signs (Past 12 Hours) Vital Signs Temp Pulse Pulse Pulse Resp BP Pulse Ox 10/18/24 11:14 36.4 C 64 20 143/86 H 98 10/18/24 10:13 10/18/24 08:50 36.4 C 64 20 10/18/24 08:28 36.4 C 64 20 113/75 96 10/18/24 05:46 68 10/18/24 03:45 36.7 C 64 18 104/67 94 O2 Del Method O2 Flow Rate 10/18/24 11:14 Nasal Cannula 2 10/18/24 10:13 Nasal Cannula 2 10/18/24 08:50 10/18/24 08:28 Nasal Cannula 2 10/18/24 05:46 10/18/24 03:45 Room Air Laboratory Results I have independently reviewed and interpreted patient's cb, bmp, lipid panel, random vanco Medications Administered Current Inpatient Medications Acetaminophen (Acetaminophen 325 Mg Tab) 650 mg PO Q4H PRN PRN Reason: Pain or Fever Stop: 11/15/24 15:35 Amiodarone HCl (Amiodarone 200 Mg Tab) 200 mg PO DAILY [facility] Stop: 11/16/24 08:59 Last Admin: 12/30/24 09:35 Dose: 200 mg Ceftazidime 1,250 mg/ (Peritoneal Dialysis Solution) 2,006.25 mls @ 334.375 mls/hr IP ONE ONE Stop: 10/18/24 15:59 Last Admin: 10/18/24 10:04 Dose: 334.4 mls/hr Metoprolol Succinate (Metoprolol Succ 25mg Ext Rel Tab) 25 mg PO BID [facility] Stop: 11/15/24 20:59 Last Admin: 10/18/24 09:34 Dose: 25 mg Midodrine (Midodrine Hcl 2.5 Mg Tab) 5 mg PO BID@0900,1600 [facility] Stop: 11/17/24 15:59 Miscellaneous Information (Vancomycin Consult Active) 1 each N/A UD PRN PRN Reason: Consult Stop: 11/15/24 17:22 Nystatin (Nystatin 500,000 Unit Tab) 500,000 units PO QID [facility] Stop: 11/15/24 20:59 Last Admin: 10/18/24 12:51 Dose: 500,000 units Pantoprazole Sodium (Pantoprazole 40 Mg Tab) 40 mg PO DAILY [facility] Stop: 11/16/24 08:59 Last Admin: 10/18/24 08:18 Dose: 40 mg Warfarin Sodium (Warfarin Sod 5 Mg Tab) 5 mg PO DAILY [facility] Stop: 11/16/24 08:59 Last Admin: 10/18/24 08:18 Dose: 5 mg (1) Dialysis-associated peritonitis Encounter type: initial encounter Qualified Code(s): T85.71XA - Infection and inflammatory reaction due to peritoneal dialysis catheter, initial encounter
--- NOTE | 2024-10-18 14:28 | Infectious Disease Consult ---
Date of Service October 18, 2024 Telehealth Information I performed this visit using a real-time telehealth connection between my location and the patients location ([facility]). After connecting through interactive tele-video, patient was identified by name and date of and/or wristband check.Patient (or authorized healthcare education courses sales representative) was informed that this was a telemedicine visit and it was being conducted confidentially over secure lines. My office door was closed and no one else was present in the room with me.Patient (or authorized healthcare education courses sales representative) provided consent to proceed with the visit, expressed an understanding of privacy and security of the telemedicine visit, and gave permission to have a hospital education courses sales representative in the room in order to assist with the visit and to conduct portions of the visit, as needed. I informed the patient (or authorized healthcare education courses sales representative) that I reviewed their record and presented the opportunity for them to ask any questions regarding the visit today. The patient agreed to participate. Assessment & Plan (1) Peritonitis due to infected peritoneal dialysis catheter: (2) End stage renal disease: (3) Enterococcus faecalis infection: Plan Given that we have an identified organism in the peritoneal fluid, I would recommend stopping intraperitoneal ceftazidime and starting on intraperitoneal vancomycin. Please aim for 3 weeks of intraperitoneal vancomycin treat for Enterococcus PD associated peritonitis with anticipated end date of November 08, 2024. Thank you for consulting infectious disease. We will sign off for now. History of Present Illness History of Present Illness Mr. Samson is a 79-year-old man with medical history of end-stage renal disease on peritoneal dialysis, paroxysmal atrial flutter, and HTN who was admitted to [facility] because of abdominal pain for around 4 days prior to admission. On presentation, he was afebrile but tachycardic and requiring 2 L of oxygen via nasal cannula. Initial blood workup showed leukocytosis of 14 (ANC 11.5), and elevated lactic acid of 3.2. CT of the abdomen and pelvis performed on presentation patient was suggestive of hepatic cirrhosis with moderate right pleural effusion. Peritoneal fluid was cloudy and cytology showed around 4676 nucleated cells (86% neutrophils) and peritoneal fluid culture grew Enterococcus faecalis. ID team was consulted for further recommendations and to help guide antibiotic treatment. Allergies Allergy/AdvReac Type Severity Reaction Status Date / Time No Known Allergies Allergy Verified 04/13/24 02:01 Home Medications Medication Instructions Recorded Confirmed Type Protonix 40 mg PO DAILY 10/16/24 10/16/24 History amiodarone 200 mg tablet 200 mg PO DAILY 10/16/24 10/16/24 History metoprolol succinate 25 mg 25 mg PO BID 10/16/24 10/16/24 History tablet,extended release 24 hr midodrine 2.5 mg tablet 2.5 mg PO BID 10/16/24 10/16/24 History warfarin 5 mg tablet 5 mg PO DAILY 10/16/24 10/16/24 History Patient History Medical History CAP (community acquired pneumonia) Hypotension ESRD on peritoneal dialysis Renal cyst 3.9 cm cystic lesion-L Paroxysmal A-fib listed in [facility] records CAD (coronary artery disease) PVD (peripheral vascular disease) Dysphagia Anemia Pulmonary nodule MGUS (monoclonal gammopathy of unknown significance) follows with [facility] heme/onc LBBB (left bundle branch block) Hearing deficit Surgical History History of appendectomy History of tooth extraction all teeth removed History of bilateral cataract extraction History of prostatectomy Family History Father Diabetes Other No family history of adverse response to anesthesia Social History Smoking Status: Former smoker Tobacco Type: Cigarettes Second Hand Exposure: No; Do You Dip or Chew Tobacco: No; Hx Alcohol Use: Yes Alcohol type: wine Hx Substance Use: No Preferred Language: German Communication Ability: Impaired Mig Tig Welder Required: No Beliefs That Will Affect Care: None Current Living Situation: Personal Care Facility Current Living Situation Comment: walker used at facility Feels Safe at Home: Yes Safety Concerns: Feels Safe At This Time Assistive Devices: Walker Review of Systems Neg except for what was mentioned in H&P. Physical Exam Couldnt be obtained as the visit was conducted via telemed. Results & Data Vital Signs (Past 12 Hours) Vital Signs Temp Pulse Pulse Pulse Resp BP Pulse Ox 10/18/24 11:14 36.4 C 64 20 143/86 H 98 10/18/24 10:13 10/18/24 08:50 36.4 C 64 20 10/18/24 08:28 36.4 C 64 20 113/75 96 10/18/24 05:46 68 10/18/24 03:45 36.7 C 64 18 104/67 94 O2 Del Method O2 Flow Rate 10/18/24 11:14 Nasal Cannula 2 10/18/24 10:13 Nasal Cannula 2 10/18/24 08:50 10/18/24 08:28 Nasal Cannula 2 10/18/24 05:46 10/18/24 03:45 Room Air Laboratory Results Microbiology: 10/16: 2 sets of blood culture negative to date 10/16: Peritoneal fluid culture growing E faecalis. Diagnostic Findings Imaging: CT scan of the abdomen and pelvis performed on 10/16: 1. Moderate right pleural effusion, increased in the interval. 2. Moderate ascites, predominantly perihepatic and perisplenic with CT appearance of the liver favoring hepatic cirrhosis. 3. Advanced atherosclerotic disease. 4. Moderate proximal sigmoid colon diverticulosis with no CT features of diverticulitis. 5. Circumferential urinary bladder wall thickening, possibly representing under distention.
--- NOTE | 2024-10-18 15:18 | CT Scan Report ---
CT chest diagnostic wo con CLINICAL HISTORY: eval for pleural effusion TECHNIQUE: Multidetector row helical CT of the chest was performed. Coronal and sagittal reformations were obtained. Automated dose lowering techniques and/or adjustment according to patient size were u tilized for this exam. CT DOSE: 820.77 mGy.cm Comparison: Comparison is made to CT chest on 04/22/2024 FINDINGS: Lungs and pleura: Atelectasis versus scarring is seen in the dependent portions of the lungs. There i s a small right and trace left pleural effusion. There is a 3 mm nodule left upper lobe (series 4 cristian ge 73). Emphysema is seen. Heart and pericardium: Aortic valvular calcifications are seen. Vessels: Moderate atherosclerotic changes in the aorta and coronary arteries. Pulmonary trunk measure s 34 mm. Mediastinum and anna: Esophageal wall thickening and some fluid contents are seen. Chest wall and lower neck: Unremarkable. Abdomen: Partial visualization of prominent ascites. Bones: Degenerative changes in the thoracic spine. IMPRESSION: 1. Small right and trace left pleural effusions, increased in size from prior exam. There is associa monty ascites. 2. Stable emphysema. 3. Partial visualization of ascites. ACT 112: Negative or not required by law. Electronically signed by: Ajay Lipscomb M.D. 10/18/2024 3:16 PM
[2024-10-18] MEDS: MIDODRINE HCL 2.5 MG TAB PO SCH (16:56)
[2024-10-19 06:40] LABS: Hematocrit (blood only) 30.1 % (42.0-52.0); Hemoglobin 10.2 g/dl (14.0-18.0); Mean Corpuscular Hemoglobin 29.9 pg (25.0-34.0); Mean Corpuscular Hgb Conc 33.9 g/dL (32.0-36.0); Mean Corpuscular Volume 88.3 fL (80.0-100.0); Mean Platelet Volume 10.9 fL (9.4-12.4); Platelet Count 244 K/uL (130-400); RDW Coefficient of Variation 14.2 % (11.5-14.5); RDW Standard Deviation 45.9 fL (36.4-46.3); Red Blood Count 3.41 M/uL (4.70-6.10); White Blood Count 6.45 K/ul (4.8-10.8)
[2024-10-19 07:15] LABS: Prothrombin Time 29.6 Seconds (9.0-12.0)
[2024-10-19 07:23] LABS: BUN Creatinine Ratio 5.1 (10-20); Calcium 7.6 mg/dl (8.6-10.3); Creatinine Clr Calc Pharmacy 10.7 ml/min; Potassium 3.6 mmol/L (3.5-5.1)
--- NOTE | 2024-10-19 09:11 | Pharmacy Report ---
Pharmacy PK ABX Note - Date of Service October 19, 2024 - Assessment and Plan Assessment 10/19 * Vancomycin level obtained this morning and resulted at 22 mcg/mL. No vancomycin needed for today. * ID recommended three weeks of intraperitoneal vancomycin (anticipated end date of Nov 08, 2024). 10/18 * Based on the vanco level of 24mcg/mL drawn this morning, additional vancomycin will not be added to the IP solution today. Ceftazadime 1250mg to be added to dialysate solution today and is to dwell for 6-8 hours. * Sensitivities still pending for E. faecalis in peritoneal dialysis fluid culture. Blood cultures x 2 from 10/16 are still negative to date (preliminary) 10/17 * 79 year old M received cefepime x1 and vancomycin x1 in ED yesterday. Transitioning to intraperitoneal (IP) antibiotics this AM starting w a 6-8 hr dwell containing ceftazidime 1250 mg and vancomycin 2000 mg. * Indication * Sepsis 2nd peritoneal dialysis associated peritonitis. * Recent concern for contamination of PD - started on empiric cefdinir as an outpatient x7 day course started ~10/09. (Note - failure of cefdinir as an outpatient may be due to lack of Enterococcal coverage - see cultures below). * Patient was initially started in IV antibiotics 2nd systemic symptoms, but was transitioned to IP antibiotics 10/17 AM * Other PMH: Afib on warfarin, chronic hypotension on midodrine, MGUS * Cultures * 10/16 Blood cultures - no growth to date * 10/16 Peritoneal culture - E. faecalis (sensitivities pending, but per 2022 antibiogram, historically 100% susceptible to ampicillin) * Discussed extensively w Dr. Galvan 10/17 * Random vanco level this AM therapeutic at 16.3 mcg/mL from the IV dose received yesterday. Additional IP vancomycin will likely produce a supratherapeutic *systemic* level tomorrow AM. However, from efficacy standpoint, high concentrations if *IP* antibiotics may be more effective for peritonitis, and patient has not yet received any IP antibiotics (prior to PD bag ordered this AM). E. faecalis growing and vancomycin is being used to cover this. From a toxicity standpoint, patient makes very little residual urine therefore toxicity concerns there are lesser than for other patients. Risk/benefit favors IP vancomycin today at current dose, acknowledging supratherapeutic systemic levels are possible for a few days. Will continue with currently dosed vanco 2000 mg IP today. * Discussed using amoxicillin 500 mg po TID in-lieu of IP vancomycin for E. faecalis peritonitis (almost certainly ampicillin sensitive, see cultures above) - data are conflicting on what may be best and plan for now is to continue with IP vancomycin, with ongoing IP doses based on systemic levels * Ongoing empiric gram negative coverage with IP ceftazidime still reasonable now until cultures have more time to ascertain if peritonitis is polymicrob ial. Ongoing empiric systemic coverage with IV cefepime has been discontinued (discussed w Dr. Shrestha as well) * Vancomycin IP ongoing * Systemic symptoms for the patient noted (WBC elevation), but per H&P - hemodynamically stable, afebrile, clinically nontoxic appearing. Of note, systemic vancomycin level is therapeutic and anticipate we will also be able to keep systemic levels of vancomycin therapeutic with ongoing IP administration * Ongoing IP vancomycin will depend on systemic level. * Anticipate no additional IP vancomycin will be needed for several days, with likely maintaining both intraperitoneal and systemic therapeutic concentrations * Goal AM random level / trough greater than 15 mcg/mL. Plan Vancomycin * No vancomycin IP needed for today * Repeat level ordered for 10/21/24 * Goal is to maintain vanco level > 15mcg/mL. Pharmacy will continue to follow and will adjust dose/frequency as necessary. Thank you.
--- NOTE | 2024-10-19 09:49 | Dialysis Progress Note ---
Date of Service October 19, 2024 Assessment & Plan Admission and Anticipated Discharge Date Admission Date: October 16, 2024 Subjective Assessment & Plan (1) Dialysis-associated peritonitis: 2 ESRD on PD Plan: Growing e fecalis. IP vanco should suffice Appears to have a good bit of edema. for tonight use 2.5% 4 bags and 1.5% 2 bags to try little bit more UF given sig edema (2) Severe sepsis: Plan: -on ip vanco. ID consult reviewed who suggested IP vanco for 3 weeks in total. final report is bunch sensitive e fecalis. so D/c Ceftazidime. vanc level still 22 so no need today. if he gets IP vanco tomorrow that should cover for many days. (3) Hypotension: Plan: chronically w/ sbp 90-100s; on OP midodrine 2.5 mg bid which should continue. in fact will raise to 5 bid to allow for more UF tonight (4) Pleural effusion: Plan: increasing R pleural effusion > on coumadin; may need to be tapped Subjective Seen for peritoneal dialysis. machine is still on last night he had no issues with PD . cxs growing bunch sensitive E faecalis from dialysate. denies any complaints actually. Review of Systems Review of Systems: All systems reviewed & are unremarkable except as noted in Subjective Physical Exam Constitutional: well developed, well nourished and cooperative; no acute distress Eyes: EOM intact bilaterally ENMT: Mouth: + dry oral mucous membranes Respiratory: normal respiratory effort Auscultation: + diminished lung sounds (triny R base) and + crackles Cardiovascular: Rate/Rhythm: regular rate and regular rhythm Extremities: + 2 edema Gastrointestinal (Abdomen): + abdominal surgical drain present (PD cather in place LLQ) abdomen soft; abdomen nontender, no guarding and no ascites Musculoskeletal: Extremities: strength 5/5 throughout Skin: no rashes, warm and dry Psychiatric: Orientation: alert and oriented x 3 Results & Data Vital Signs (Past 12 Hours) Vital Signs Temp Pulse Pulse Resp BP BP Pulse Ox 10/19/24 09:03 10/19/24 07:26 36.4 C L 66 18 118/69 95 10/19/24 04:58 64 10/19/24 04:06 36.6 C 65 20 122/78 96 10/18/24 23:53 36.2 C L 66 20 127/78 95 10/18/24 22:12 66 O2 Del Method O2 Flow Rate 10/19/24 09:03 Nasal Cannula 2 10/19/24 07:26 Nasal Cannula 2 10/19/24 04:58 10/19/24 04:06 Nasal Cannula 2 10/18/24 23:53 Nasal Cannula 2 10/18/24 22:12
--- NOTE | 2024-10-19 11:18 | Hospitalist Progress Note ---
Date of Service October 19, 2024 Assessment & Plan (1) Dialysis-associated peritonitis: Plan: 79-year-old male with history of end-stage renal disease on peritoneal dialysis, paroxysmal atrial flutter, hypertension, presenting with abdominal pain x 4 days [employer] LO[employer]. He is being managed for the following: Peritoneal dialysis peritonitis Severe sepsis, elevated lactic acid At presentation: patient is hemodynamically stable, afebrile, clinically nontoxic appearing. Pt has abd pain x 4 days. Peritoneal fluid studies 10/16 cell count 4676 and 86% PMN in cloudy effluent - consistent w/ peritonitis Lactate trended down from 4.2. Final Peritoneal culture: Enterococcus Faecalis Per ID plan to treat with intraperitoneal vancomycin through 11/08, vanco trough today remains elevated Nephrology on board to help with dialysis and guidance with peritoneal dialysis related peritonitis. Will need to coordinate logistics of IP medication at [facility] Paroxysmal atrial flutter Continue metoprolol, amiodarone Pt reports he is only on 2mg of warfarin daily INR 3.0 today, will reduce warfarin INR check daily Incidental findings on the CT abdomen pelvis: Refer to full report for full details Moderate right pleural effusion-on peritoneal dialysis Advanced atherosclerotic disease, aorta and coronary arteries - needs to be on statin, aspirin if without contraindication, already on Coumadin. -Lipid panel as follows : Total Chol 126, LDL 73, HDL 29 Hepatic cirrhosis, with moderate ascites-LFTs okay, on peritoneal dialysis Discussed with regarding possibility of starting Statin given coronary artery calcifications and she wishes to defer this to his primary rug touch up painter. Abnormal Chest CT: 1. Small right and trace left pleural effusions, increased in size from prior exam. There is associated ascites. 2. Stable emphysema. 3. Clinical correlation is recommended to exclude esophagitis in this patient with esophageal wall thickening. Discussed with Chava who reports pt with hx of achalasia s/p dilation, he follows with Dr. العلي, prior hx of Peroral endoscopic myotomy (POEM) Other chronic medical problems:Continue with/resume home meds as when able. Mixed Restrictive and obstructive lung disease: Respiratory status stable Hypertrophic cardiomyopathy: No cardiac symptoms at this time Achalasia, dysphagia: Easy to chew diet. Aspiration precautions DVT prophylaxis: On Coumadin Full code Dispo: Pt is going to require IP Vanco at discharge through 11/08, PT/OT consults pending, he is otherwise medically stable, awaiting nephro clearance pt was seen and examined in collaboration with Dr. España, please see addendum I spent a total of 53 minutes reviewing notes, outpatient records, labs, me dication, coordinating, documenting and providing care for this patient excluding time spent in the performance of separately billed services. Spoke to pts ex chava for a total of 7 minutes, she agrees with above assessment and treatment plan Admission and Anticipated Discharge Date Admission Date: October 16, 2024 Supervising Physician Co-Signing Physician Notes 10/19/2024 The patient was seen and examined in medical telemetry unit He has been stable without any abdominal pain, nausea or vomiting and no fever and no chills Has been getting intraperitoneal vancomycin through the PD catheter and continue with dialysis On examination Lying in bed without any acute distress Remains hemodynamically stable with unremarkable examination Abdomen remains soft and nontender with normal bowel sound His labs and medications reviewed Has peritonitis with status post ongoing peritoneal dialysis Has been getting intra-abdominal vancomycin as per program proposals coordinator Agree with assessment and plan as outlined above by Jami maldonado nd take Responsibility of the care in the hospital Dr Mirian España Subjective Pt feels well this morning and offers no acute concerns. He tolerated PD last night. He denies abd pain. He denies f/c/s, chest pain, sob, n/v. He has a good appetite. He requested I call Chava. Review of Systems Review of Systems: All systems reviewed & are unremarkable except as noted in HPI & below Physical Exam Physical Exam: Gen: WD/WN, NAD, A&O x3 HEENT: Normocephalic, atraumatic, conjunctivae moist, sclerae anicteric, mucous membranes moist. Lung: Clear to Auscultation bilaterally with decreased BS at bases, no wheezes/rales/rhonchi Heart: Regular rate, regular rhythm, no murmurs, rubs, or gallops Abdomen: Soft, NT, protuberant + PD cath dressing CDI Extremities: ++ edema Skin: Warm, no rash, negative turgor. Results & Data Results & Data Vital Signs (Past 12 Hours) Vital Signs Temp Pulse Pulse Resp BP BP Pulse Ox 10/19/24 09:03 10/19/24 07:26 36.4 C L 66 18 118/69 95 10/19/24 04:58 64 12/31/24 04:06 36.6 C 65 20 122/78 96 10/18/24 23:53 36.2 C L 66 20 127/78 95 O2 Del Method O2 Flow Rate 10/19/24 09:03 Nasal Cannula 2 10/19/24 07:26 Nasal Cannula 2 10/19/24 04:58 10/19/24 04:06 Nasal Cannula 2 10/18/24 23:53 Nasal Cannula 2 Laboratory Results Short CBC 10/19/24 Range/Units 05:02 WBC 6.45 (4.8-10.8) K/ul Hgb 10.2 L (14.0-18.0) g/dl Hct 30.1 L (42.0-52.0) % Plt Count 244 (130-400) K/uL BMP 10/19/24 05:02 Sodium 134 L Potassium 3.6 Chloride 96 L Carbon Dioxide 31 BUN 33 H Creatinine 6.41 H* D Glucose 146 H Calcium 7.6 L I have independently reviewed and interpreted patient's cbc, bmp, vanco Medications Administered Current Inpatient Medications Acetaminophen (Acetaminophen 325 Mg Tab) 650 mg PO Q4H PRN PRN Reason: Pain or Fever Stop: 11/15/24 15:35 Amiodarone HCl (Amiodarone 200 Mg Tab) 200 mg PO DAILY [facility] Stop: 11/16/24 08:59 Last Admin: 10/19/24 07:26 Dose: 200 mg Metoprolol Succinate (Metoprolol Succ 25mg Ext Rel Tab) 25 mg PO HS [facility] Stop: 11/18/24 20:59 Midodrine (Midodrine Hcl 2.5 Mg Tab) 5 mg PO BID@0900,1600 [facility] Stop: 11/17/24 15:59 Last Admin: 10/19/24 07:25 Dose: 5 mg Miscellaneous Information (Vancomycin Consult Active) 1 each N/A UD PRN PRN Reason: Consult Stop: 11/15/24 17:22 Nystatin (Nystatin 500,000 Unit Tab) 500,000 units PO QID [facility] Stop: 11/15/24 20:59 Last Admin: 10/19/24 07:26 Dose: 500,000 units Pantoprazole Sodium (Pantoprazole 40 Mg Tab) 40 mg PO DAILY [facility] Stop: 11/16/24 08:59 Last Admin: 10/19/24 07:26 Dose: 40 mg Warfarin Sodium (Warfarin Sod 2 Mg Tab) 2 mg PO DAILY@1600 JULIANNA Stop: 11/18/24 15:59 (1) Dialysis-associated peritonitis Encounter type: initial encounter Qualified Code(s): T85.71XA - Infection and inflammatory reaction due to peritoneal dialysis catheter, initial encounter
[2024-10-19] MEDS ORDERED: WARFARIN SOD 2 MG TAB PO SCH (16:00)
[2024-10-19] MEDS: WARFARIN SOD 2.5 MG TAB PO SCH (16:03)
[2024-10-19] MEDS: METOPROLOL SUCC 25MG EXT REL TAB PO SCH (20:17)
[2024-10-20 01:47] LABS: Appearance Urine Clear (Clear); Bacteria Urine Automated None Seen (None Seen); Bilirubin Urine Negative (Negative); Blood Urine Negative (Negative); Color Urine Yellow; Epithelial Cell Urine Auto 0-2 /hpf (0-2); Glucose Urine UA 1+ (Negative); Ketones Urine Negative (Negative); Leukocyte Esterase Urine 2+ (Negative); Nitrite Urine Negative (Negative); Protein Urine 2+ (Negative); RBC Urine Automated 0-2 /hpf (0-2); Specific Gravity Urine 1.011 (1.000-1.030); Urobilinogen Urine Negative (Negative)
[2024-10-20 06:12] LABS: INR 2.9 (0.9-1.1); Prothrombin Time 28.5 Seconds (9.0-12.0)
[2024-10-20 09:12] LABS: BUN Creatinine Ratio 4.6 (10-20); Calcium 7.6 mg/dl (8.6-10.3); Creatinine Clr Calc Pharmacy 10.9 ml/min; Potassium 3.4 mmol/L (3.5-5.1)
--- NOTE | 2024-10-20 11:03 | Pharmacy Report ---
Pharmacy PK ABX Note - Date of Service October 20, 2024 - Assessment and Plan Assessment 10/20: * Levels ordered this morning and for tomorrow by nephrology. Level today was 17.9 mcg/mL. Discussed with installation helper and given concern for infection, it was favored to put vanc in the dialysate bag today anticipating the level would fall below 15 by tomorrow. * 1500mg (~15 mg/kg) vancomycin added to the bag today. Don't anticipate needing a redose for another 3-5 days. 10/19 * Vancomycin level obtained this morning and resulted at 22 mcg/mL. No vancomycin needed for today. * ID recommended three weeks of intraperitoneal vancomycin (anticipated end date of Nov 08, 2024). 10/18 * Based on the vanco level of 24mcg/mL drawn this morning, additional vancomycin will not be added to the IP solution today. Ceftazadime 1250mg to be added to dialysate solution today and is to dwell for 6-8 hours. * Sensitivities still pending for E. faecalis in peritoneal dialysis fluid culture. Blood cultures x 2 from 10/16 are still negative to date (preliminary) 10/17 * 79 year old M received cefepime x1 and vancomycin x1 in ED yesterday. Transitioning to intraperitoneal (IP) antibiotics this AM starting w a 6-8 hr dwell containing ceftazidime 1250 mg and vancomycin 2000 mg. * Indication * Sepsis 2nd peritoneal dialysis associated peritonitis. * Recent concern for contamination of PD - started on empiric cefdinir as an outpatient x7 day course started ~10/09. (Note - failure of cefdinir as an outpatient may be due to lack of Enterococcal coverage - see cultures below). * Patient was initially started in IV antibiotics 2nd systemic symptoms, but was transitioned to IP antibiotics 10/17 AM * Other PMH: Afib on warfarin, chronic hypotension on midodrine, MGUS * Cultures * 10/16 Blood cultures - no growth to date * 10/16 Peritoneal culture - E. faecalis (sensitivities pending, but per 2022 antibiogram, historically 100% susceptible to ampicillin) * Discussed extensively w Dr. Galvan 10/17 * Random vanco level this AM therapeutic at 16.3 mcg/mL from the IV dose received yesterday. Additional IP vancomycin will likely produce a supratherapeutic *systemic* level tomorrow AM. However, from efficacy standpoint, high concentrations if *IP* antibiotics may be more effective for peritonitis, and patient has not yet received any IP antibiotics (prior to PD bag ordered this AM). E. faecalis growing and vancomycin is being used to cover this. From a toxicity standpoint, patient makes very little residual urine therefore toxicity concerns there are lesser than for other patients. Risk/benefit favors IP vancomycin today at current dose, acknowledging supratherapeutic systemic levels are possible for a few days. Will continue with currently dosed vanco 2000 mg IP today. * Discussed using amoxicillin 500 mg po TID in-lieu of IP vancomycin for E. faecalis peritonitis (almost certainly ampicillin sensitive, see cultures above) - data are conflicting on what may be best and plan for now is to continue with IP vancomycin, with ongoing IP doses based on systemic levels * Ongoing empiric gram negative coverage with IP ceftazidime still reasonable now until cultures have more time to ascertain if peritonitis is polymicrobial. Ongoing empiric systemic coverage with IV cefepime has been discontinued (discussed w Dr. Shrestha as well) * Vancomycin IP ongoing * Systemic symptoms for the patient noted (WBC elevation), but per H&P - hemodynamically stable, afebrile, clinically nontoxic appearing. Of note, systemic vancomycin level is therapeutic and anticipate we will also be able to keep systemic levels of vancomycin therapeutic with ongoing IP administration * Ongoing IP vancomycin will depend on systemic level. * Anticipate no additional IP vancomycin will be needed for several days, with likely maintaining both intraperitoneal and systemic therapeutic concentrations * Goal AM random level / trough greater than 15 mcg/mL. Plan Vancomycin * 1500mg IP today * Repeat level ordered for 10/21/24 * Goal is to maintain vanco level > 15mcg/mL. Pharmacy will continue to follow and will adjust dose/frequency as necessary. Thank you.
[2024-10-20] MEDS ORDERED: VANCOMYCIN HCL IP ONE (11:30)
[2024-10-20] MEDS ORDERED: PERITONEAL 2.5% IP ONE (11:30)
[2024-10-20] MEDS ORDERED: DIALYSIS IP ONE (11:30)
[2024-10-20 11:50] LABS: Appearance Peritoneal Fluid Clear; Color Peritoneal Fluid Pale Yellow; RBC Peritoneal Fluid Auto < 2000 /uL; WBC Peritoneal Fluid Auto < 10 /ul (0-300)
[2024-10-20 12:17] LABS: Basophils, Fluid 3 %; Eosinophils, Fluid 3 %; Lymphocytes, Fluid 3 %; Mono,Macrophage,Mesothelial 69 %; Neutrophils, Fluid 22 %
[2024-10-20] MEDS: DIALYSIS IP ONE (12:17)
[2024-10-20] MEDS: PERITONEAL 1.5% IP ONE (12:17)
[2024-10-20] MEDS: VANCOMYCIN HCL IP ONE (12:17)
--- NOTE | 2024-10-20 15:04 | Hospitalist Progress Note ---
Date of Service October 20, 2024 Assessment & Plan (1) Dialysis-associated peritonitis: Plan: 79-year-old male with history of end-stage renal disease on peritoneal dialysis, paroxysmal atrial flutter, hypertension, presenting with abdominal pain x 4 days [employer]. He is being managed for the following: Peritoneal dialysis peritonitis Severe sepsis, elevated lactic acid At presentation: patient is hemodynamically stable, afebrile, clinically nontoxic appearing. Pt has abd pain x 4 days. Peritoneal fluid studies 10/16 cell count 4676 and 86% PMN in cloudy effluent - consistent w/ peritonitis Lactate trended down from 4.2. Final Peritoneal culture: Enterococcus Faecalis Per ID plan to treat with intraperitoneal vancomycin through 11/08, vanco trough today remains elevated Nephrology on board to help with dialysis and guidance with peritoneal dialysis related peritonitis. Will need to coordinate logistics of IP medication at F Will continue intraperitoneal vancomycin for now and likely discharge tomorrow with set up of outpatient administration of vancomycin to continue until 11/08/2024 Paroxysmal atrial flutter Continue metoprolol, amiodarone Pt reports he is only on 2mg of warfarin daily INR 3.0 today, will reduce warfarin INR check daily-INR is therapeutic at 2.9 as of 10/20/2024 Incidental findings on the CT abdomen pelvis: Refer to full report for full details Moderate right pleural effusion-on peritoneal dialysis Advanced atherosclerotic disease, aorta and coronary arteries - needs to be on statin, aspirin if without contraindication, already on Coumadi n. -Lipid panel as follows : Total Chol 126, LDL 73, HDL 29 Hepatic cirrhosis, with moderate ascites-LFTs okay, on peritoneal dialysis Discussed with regarding possibility of starting Statin given coronary artery calcifications and she wishes to defer this to his primary collection officer. Abnormal Chest CT: 1. Small right and trace left pleural effusions, increased in size from prior exam. There is associated ascites. 2. Stable emphysema. 3. Clinical correlation is recommended to exclude esophagitis in this patient with esophageal wall thickening. Discussed with Dyana who reports pt with hx of achalasia s/p dilation, he follows with Dr. العلي, prior hx of Peroral endoscopic myotomy (POEM) Other chronic medical problems:Continue with/resume home meds as when able. Mixed Restrictive and obstructive lung disease: Respiratory status stable Hypertrophic cardiomyopathy: No cardiac symptoms at this time Achalasia, dysphagia: Easy to chew diet. Aspiration precautions DVT prophylaxis: On Coumadin Full code Dispo: Pt is going to require IP Vanco at discharge through 11/08, PT/OT consults pending, he is otherwise medically stable, awaiting nephro clearance Admission and Anticipated Discharge Date Admission Date: October 16, 2024 Subjective 10/20/2024 The patient was seen and examined in medical telemetry unit He has been stable and wants to go home Denies any abdominal pain, nausea vomiting, fever or chills Review of Systems Review of Systems: All systems reviewed and are unremarkable except as noted below left Physical Exam Physical Exam: Lying in bed without any acute distress Constitutional: well developed and well nourished; not ill appearing Eyes: PERRL, conjunctivae normal, anicteric sclerae ENMT: external ear and nose normal, oropharynx normal Neck: trachea midline, no thyromegaly Respiratory: no respiratory distress Auscultation: lungs clear to auscultation bilaterally Cardiovascular: Rate/Rhythm: regular rate and regular rhythm; not tachycardic Heart Sounds: normal S1 and normal S2; no murmur Extremities: no edema Gastrointestinal (Abdomen): Inspection/Auscultation: normal bowel sounds; abdomen not distended Percussion/Palpation: abdomen soft; abdomen nontender The peritoneal dialysis catheter in situ Musculoskeletal: No acute arthritis involving any of the joint Neurologic: normal touch/pain/proprioception and moves all extremities; no focal motor deficits Psychiatric: A+Ox3, euthymic affect Lymphatic: no cervical or axillary lymphadenopathy Results & Data Results & Data Vital Signs (Past 12 Hours) Vital Signs Temp Pulse Pulse Pulse Resp BP BP 10/20/24 12:49 36.5 C 63 18 138/75 10/20/24 10:39 10/20/24 09:10 36.5 C 65 20 10/20/24 07:54 36.6 C 63 20 116/70 10/20/24 05:45 51 L 10/20/24 04:00 36.6 C 65 16 123/80 Pulse Ox O2 Del Method O2 Flow Rate 10/20/24 12:49 96 Nasal Cannula 2 10/20/24 10:39 Nasal Cannula 1 10/20/24 09:10 10/20/24 07:54 92 Nasal Cannula 1 10/20/24 05:45 10/20/24 04:00 95 Nasal Cannula [address] [facility] 10/20/24 04:58 Sodium 137 Potassium 3.4 L Chloride 97 L Carbon Dioxide 31 BUN 29 H Creatinine 6.25 H* Glucose 152 H Calcium 7.6 L Urine 10/20/24 Range/Units Unknown Urine Color Yellow Urine Appearance Clear (Clear) Urine pH 8.0 H (4.5-7.5) Ur Specific [place] 1.011 (1.000-1.030) Urine Protein 2+ H (Negative) Urine Glucose (UA) 1+ H (Negative) Medications Administered Current Inpatient Medications Acetaminophen (Acetaminophen 325 Mg Tab) 650 mg PO Q4H PRN PRN Reason: Pain or Fever Stop: 11/15/24 15:35 Amiodarone HCl (Amiodarone 200 Mg Tab) 200 mg PO DAILY [facility] Stop: 11/16/24 08:59 Last Admin: 10/20/24 08:11 Dose: 200 mg Vancomycin HCl 1,500 mg/ (Peritoneal Dialysis Solution) 2,530 mls @ 416.667 mls/hr IP ONE ONE Stop: 10/20/24 17:19 Last Admin: 10/20/24 12:17 Dose: Not Given Metoprolol Succinate (Metoprolol Succ 25mg Ext Rel Tab) 25 mg PO HS [facility] Stop: 11/18/24 20:59 Last Admin: 10/19/24 20:17 Dose: 25 mg Midodrine (Midodrine Hcl 2.5 Mg Tab) 5 mg PO BID@0900,1600 [facility] Stop: 11/17/24 15:59 Last Admin: 10/20/24 08:11 Dose: 5 mg Miscellaneous Information (Vancomycin Consult Active) 1 each N/A UD PRN PRN Reason: Consult Stop: 11/15/24 17:22 Nystatin (Nystatin 500,000 Unit Tab) 500,000 units PO QID [facility] Stop: 11/15/24 20:59 Last Admin: 10/20/24 12:21 Dose: 500,000 units Pantoprazole Sodium (Pantoprazole 40 Mg Tab) 40 mg PO DAILY [facility] Stop: 11/16/24 08:59 Last Admin: 10/20/24 08:11 Dose: 40 mg Warfarin Sodium (Warfarin Sod 2.5 Mg Tab) 2.5 mg PO DAILY@1600 [facility] Stop: 11/18/24 15:59 Last Admin: 10/19/24 16:03 Dose: 2.5 mg (1) Dialysis-associated peritonitis Encounter type: initial encounter Qualified Code(s): T85.71XA - Infection and inflammatory reaction due to peritoneal dialysis catheter, initial encounter
[2024-10-20] MEDS: bisacodyL 10 MG SUPP PR ONE (17:09)
--- NOTE | 2024-10-20 19:08 | Nephrology Progress Note ---
Date of Service October 20, 2024 Assessment & Plan (1) Constipation: Plan: no BM charted since arrival; lack of BM can > relapsing/recurrent peritonitis so getting a BM is a top priority vitally important that he move his bowels daily >ordered metamucil, miralax, colace to be given this evening; he already has a bisacodyl suppository on board; metamucil not accessible d/t logistical issues this evening and will give a dose of lactulose instead, start psyllium in am >>suggest for this evening since we are giving him this bowel regimen and he'll be on PD that he have a bedside commode (he's not a fan of bedpans) >>suggest also bed alarm or even possibly a sitter d/t fall risk w/ moving around for BM >> will d/w charge Care reviewed w/ Dr España multiple times through the day by phone re abtx and d/c dispo; then w/ dialysis and kiln charger re bowel mvoements and pt safety plan overnight. we are in agreement. (2) Dialysis-associated peritonitis: Plan: pt's extraneal bag fell off its tubing early 10/09 > all was clamped; he had a transfer set change on 10/11 and started po abtx/omnicef on 10/09 or 10/10; stopped this approx 10/14 d/t diarrhea. also had issues w/ machine malfunction prior to admission and actually received new machine on 10/14. pablo dunlap worked well thrus > 10/15 adn to Sat 10/16 aM but he called her w/ back pain adn later abdo pain. lots of diarrhea while on omnicef > 10/11-10/13 3-4 liquid BM daily; decreasing by 10/15. ..PT W/ MILD COGNITIVE IMPAIRMENT/EARLY DEMENTIA >> not a reliable historian. >> 10/16 cell count 4676 and 86% PMN in cloudy effluent>> consistent w/ peritonitis >>>ordered repeat fluid studies on 10/19 >> peritonitis resolved -plan to continue routine PD on script modified based on hospital stock fluids (no ico here, for ex) > his TW is 82.5; he is normally on cycler 12 hrs w/ 2.8 L fills, 5 exchanges and day dwell of icodextrin 2L as OP. This evening will do 14 hrs on cycler w/ 2.5L fills and 6 exchanges, 4 @1.5% and 2 @ 2.5% w/ 5000 units / 5L bag of heparin had IP vanco today f/u vanc level in am Other abtx stopped ID recommends IP vanco which is traditional therapy here for 3 wk course; that said [employer] PD guidelines also recommends amoxicillin tid 500 mg and for this pt may want to consider that for ease of use >>>continue nystatin qid for fungal peritonitis prophylaxis Defer to primary service for control of abd pain adn for bowel regimen (3) Hypotension: Plan: chronically w/ sbp 90-100s; on OP midodrine 2.5 mg bid which should continue (4) Pleural effusion: Plan: increasing R pleural effusion > on coumadin; may need to be tapped Admission and Anticipated Discharge Date Admission Date: October 16, 2024 Subjective pt seen on early evening rounds; he has rectal cramping which is severe after suppository for constipation; tells me he's not had a BM in 4 days; denies sob; not taking po d/t abd distension Review of Systems 2 Review of Systems: All systems reviewed & are unremarkable except as noted in Subjective Physical Exam 2 Constitutional: well developed, well nourished and cooperative; no acute distress Eyes: EOM intact bilaterally ENMT: Mouth: + dry oral mucous membranes Respiratory: normal respiratory effort Auscultation: + diminished lung sounds (triny R base) and + crackles (bibasilar crackles) Cardiovascular: Rate/Rhythm: regular rate and regular rhythm Extremities: + edema (RLE 2+; LLE trace at most) Gastrointestinal (Abdomen): Inspection/Auscultation: + abdomen distended, normal bowel sounds and + abdominal surgical drain present (PD cather in place LLQ) Percussion/Palpation: abdomen soft; abdomen nontender, no guarding and no ascites clenches/grimaces from abd pain Musculoskeletal: Extremities: strength 5/5 throughout Skin: no rashes, warm and dry Neurologic: ivory, fluent speech Psychiatric: Orientation: alert and oriented x 3 Results & Data Vital Signs (Past 12 Hours) Vital Signs Temp Pulse Pulse Resp BP Pulse Ox O2 Del Method 10/20/24 18:48 10/20/24 15:46 36.3 C L 55 L 20 116/62 97 Room Air 10/20/24 13:05 54 L 10/20/24 12:49 36.5 C 63 18 138/75 96 Nasal Cannula 10/20/24 10:39 Nasal Cannula 10/20/24 09:10 36.5 C 65 20 10/20/24 07:54 36.6 C 63 20 116/70 92 Nasal Cannula O2 Del Method O2 Flow Rate 10/20/24 18:48 Room Air 10/20/24 15:46 2 10/20/24 13:05 10/20/24 12:49 2 10/20/24 10:39 1 10/20/24 09:10 10/20/24 07:54 1 Laboratory Results 10/19/24 05:02 10/20/24 04:58 repeat fluid studies obtained today reviewed (2) Dialysis-associated peritonitis Encounter type: initial encounter Qualified Code(s): T85.71XA - Infection and inflammatory reaction due to peritoneal dialysis catheter, initial encounter
[2024-10-20] MEDS: POLYETHYLENE (MIRALAX) 17 GM PACK PO SCH (19:53)
[2024-10-20] MEDS: LACTULOSE SYRUP 20 GM/30 ML UDC PO STA (19:53)
[2024-10-20] MEDS: DOCUSATE SODIUM 100 MG CAP PO SCH (20:11)
[2024-10-21 05:58] LABS: INR 3.6 (0.9-1.1); Prothrombin Time 34.5 Seconds (9.0-12.0)
[2024-10-21] MEDS: PSYLLIUM or GUAR GUM FIBER 4GM PACKET PO SCH (08:14)
[2024-10-21] MEDS: AMOXICILLIN 500 MG CAP PO SCH (10:51)
[2024-10-21 11:08] VITALS: RESP 15; TEMP 97.5; O2SAT 94
--- NOTE | 2024-10-21 13:28 | Discharge Summary ---
Discharge Summary Date of Service October 21, 2024 Principal Dx & Hospital Course #1 = Principal Diagnosis (1) Dialysis-associated peritonitis: 79-year-old male with history of end-stage renal disease on peritoneal dialysis, paroxysmal atrial flutter, hypertension, presenting with abdominal pain x 4 days [employer]ACH[employer]. He is being managed for the following: Peritoneal dialysis peritonitis Severe sepsis, elevated lactic acid At presentation: patient is hemodynamically stable, afebrile, clinically nontoxic appearing. Pt has abd pain x 4 days. Peritoneal fluid studies 10/16 cell count 4676 and 86% PMN in cloudy effluent - consistent w/ peritonitis Lactate trended down from 4.2. Final Peritoneal culture: Enterococcus Faecalis Nephrology on board to help with dialysis and guidance with peritoneal dialysis related peritonitis- - plan to continue routine PD (cycler 12 hrs w/ 2.8 L fills, 5 exchanges and day dwell of icodextrin 2L as OP) Discharging on Amoxicillin 500mg TID x 3 week course Continue nystatin QID for fungal peritonitis prophylaxis Final nephrology recommendations: >>resume regular OP PD prescription >>take amoxicillin 500 mg po tid and nystatin 500K units qid > do this for 3 weeks, through 11/06/24 >> bowel regimen with colace BID, PRN miralax if no BM x 48hr Follow up in PD clinic at his already-planned monthly PD clinic visit in October; no need to arrange CKD clinic f/u or labs >f/u dialysis labs to be drawn at PD clinic; [facility] will schedule/obtain labs Paroxysmal atrial flutter Continue metoprolol, amiodarone Pt reports he is only on 2mg of warfarin daily INR 3.0 today, reduced warfarin dose INR still elevated around 3.6 - hold coumadin, repeat INR in 2 days and once in range 2-3, can resume coumadin Incidental findings on the CT abdomen pelvis: Refer to full report for full details Moderate right pleural effusion-on peritoneal dialysis Advanced atherosclerotic disease, aorta and coronary arteries - needs to be on statin, aspirin if without contraindication, already on Coumadin. -Lipid panel as follows : Total Chol 126, LDL 73, HDL 29 Hepatic cirrhosis, with moderate ascites-LFTs okay, on peritoneal dialysis Discussed with regarding possibility of starting statin given coronary artery calcifications and she wishes to defer this to his primary grab jack worker. Abnormal Chest CT: 1. Small right and trace left pleural effusions, increased in size from prior exam. There is associated ascites. -> PCP to consider repeat CXR to f/u R pleural effusion Discussed with Dyana who reports pt with hx of achalasia s/p dilation, he follows with Dr. العلي, prior hx of Peroral endoscopic myotomy (POEM) Other chronic medical problems:Continue with/resume home meds as when able. Mixed Restrictive and obstructive lung disease: Respiratory status stable Hypertrophic cardiomyopathy: No cardiac symptoms at this time Achalasia, dysphagia: Easy to chew diet. Aspiration precautions Dispo: Discharging back to [facility] today, care coordinated with nephrology as above Care coordinated with Dr. Taco Gonzalez spent a total of 60 minutes coordinating, documenting, and providing care for this patient excluding time spent in the performance of separately billed services. Notes For Next Care Provider Medication Changes From Visit 55 Admission HPI Per Admitting Provider 79-year-old male with history of end-stage renal disease on peritoneal dialysis, paroxysmal atrial flutter, hypertension, presenting with abdominal pain x 4 days. Patient receives peritoneal dialysis care of dialysis nurse every evening. 4 days ago, patient started to develop upper quadrant abdominal pain, associated with some nausea and diarrhea. No fevers or chills, headache, chest pain, 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 Patient received the ER with blood pressure 102/67, pulse rate 99, temperature 36.7, respiratory 20. WBC 14.3 Lactic acid 4.2 IMPRESSION: 1. Moderate right pleural effusion, increased in the interval. 2. Moderate ascites, predominantly perihepatic and perisplenic with CT appearance of the liver favoring hepatic cirrhosis. 3. Advanced atherosclerotic disease. 4. Moderate proximal sigmoid colon diverticulosis with no CT features of diverticulitis. 5. Circumferential urinary bladder wall thickening, possibly representing under distention. ACT 112: Positive. There are findings on this examination that require communication between the performing entity and the patient following Patient Test Result Information Act ([place] ACT 112) guidelines. Electronically signed by Lucretia Wang 10-16-2024 2:54 PM Patient given vancomycin plus cefepime, Bolus of 500 cc of normal saline At the ER. Dr. Frankel notified. Seen resting in bed, comfortable, not in distress, in good spirits Has mild mostly upper quadrant abdominal pain, but otherwise no active nausea, diarrhea, chest pain, 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 Admission Exam Per Admitting Provider General- oriented x 3, not in distress, speaks in sentences with no effort or accessory muscle use Head- atraumatic Eyes- PERRL, EOMI, anicteric ENT- oropharynx clear Neck- supple, no JVD, no adenopathy, no thyromegaly; carotids +2/2, no bruits appreciated Lungs- clear to auscultation bilaterally, no rales/wheezes Heart- normal rate, regular rhythm; no murmur, no gallop, no rub appreciated Abdomen- normal bowel sounds, nondistended, soft, Mild upper quadrant tenderness, no masses or hepatosplenomegaly PD tubing in place, no signs of infection Extremities- no pretibial edema, no calf tenderness; peripheral pulses intact Neuro- alert, oriented x 3; CN 2-12 grossly intact; motor 5/5 bilaterally;sensation 100% on all extremities; no other gross focal neurologic deficits Skin- warm & dry Discharge Exam Gen: WD/WN, NAD, sitting in bedside chair, A&Ox3 HEENT: Normocephalic, atraumatic, conjunctivae moist, sclerae anicteric, mucous membranes moist Lung: Diminished breath sounds at baseline, otherwise clear Heart: Regular rate, regular rhythm, rubs, or gallops, 1+ BLE edema Abdomen: Soft, NT, ND +BS x 4, +PD catheter visualized, c/d/i Extremities: no edema Skin: Warm, no rash Updated Medication List Medication Instructions Recorded Confirmed Type Protonix 40 mg PO DAILY 10/16/24 10/16/24 History amiodarone 200 mg tablet 200 mg PO DAILY 10/16/24 10/16/24 History metoprolol succinate 25 mg 25 mg PO HS 10/16/24 10/19/24 History tablet,extended release 24 hr midodrine 2.5 mg tablet 2.5 mg PO BID 10/16/24 10/16/24 History warfarin 2 mg tablet 2.5 mg PO DAILY@1600 10/19/24 10/19/24 History PSYLLIUM or GUAR GUM FIBER SUP 4 g PO QAM PRN constipation 1 day 10/21/24 Rx [METAMUCIL or NUTRISOURCE FIBER #1 pkg SUPPLEMENT] amoxicillin 500 mg capsule 500 mg PO Q8 #63 caps 10/21/24 Rx docusate sodium 100 mg capsule 100 mg PO BID #60 caps 10/21/24 Rx nystatin 500,000 unit tablet 500,000 unit PO QID #56 tabs 10/21/24 Rx polyethylene glycol 3350 17 gram 17 g PO DAILY PRN constipation #30 10/21/24 Rx oral powder packet (Miralax) ea Hospital Stay Data Consultations 10/16/24 15:18 ED Decision to Admit Stat 10/16/24 15:38 Consult Nephrology Routine 10/16/24 16:01 Consult Infectious Diseases Routine Diagnostic Imagining Performed 10/16/24 13:41 CT abd pelvis wo con Stat 10/18/24 13:55 CT chest diagnostic wo con Routine Pending Results Patient Have Any Pending Studies at Discharge: No Discharge Instructions Given to Patient (Per Discharging Provider) MEDICATION CHANGES: Amoxicillin 500mg TID x 3 week course for peritonitis Continue nystatin 4 x/ day for fungal peritonitis prophylaxis Continue bowel regimen with Stool softener twice a day, Miralax as needed HOLD coumadin dose today while INR is elevated - resume home dose once returns to goal 2-3 range SUMMARY OF TEST RESULTS: You were admitted to hospital secondary to peritonitis Final Peritoneal culture grew Enterococcus Faecalis Continue peritoneal dialysis, Dr. Galvan has been managing - plan to continue routine PD, follow up in clinic as scheduled RECOMMENDATIONS FOR FOLLOW-UP: Follow up with PCP and nephrology as scheduled. Complete antibiotic in its entirety. Continue medication regimen as scheduled aside from changes noted above. OTHER INSTRUCTIONS: Seek medical attention if you have: * temperature above 101 * chest pain or trouble breathing * abdominal pain, nausea, vomiting * diarrhea, dark stools or bloody stools * any unanswered questions or concerns Call 911 if symptoms are severe. Please take good care of yourself. Call if you have any questions or problems. You can reach a [facility] hospitalist on duty at [facility] 24 hours a day by calling [phone]. Total Time Total Time Spent Total Time Spent (In Minutes): 60 Supervising Physician Co-Signing Physician Notes Attending addendum: The patient was seen and examined in medical telemetry He has been stable for the last 2 days Denies any abdominal symptoms does not have any fever no chills On examination Lying in bed without any apparent distress Hemodynamically stable Benign examination of the abdomen Medications and labs were reviewed Has PD associated peritonitiswill discontinue treatment with oral ampicillin Reviewed with assessment and plan as outlined above by Simin Genao PA-C and take the full responsibility of care in the hospital Dr Mirian España
[2024-10-21 13:34] VITALS: BP 115/71
[2024-10-21 13:57] VITALS: PULSE 72
--- NOTE | 2024-10-21 16:46 | Nephrology Progress Note ---
Date of Service October 21, 2024 Assessment & Plan (1) Dialysis-associated peritonitis: Plan: pt's extraneal bag fell off its tubing early 10/09 > all was clamped; he had a transfer set change on 10/11 and started po abtx/omnicef on 10/09 or 10/10; stopped this approx 10/14 d/t diarrhea. also had issues w/ machine malfunction prior to admission and actually received new machine on 10/14. pablo dunlap worked well thrus > 10/15 adn to Sat 10/16 aM but he called her w/ back pain adn later abdo pain. lots of diarrhea while on omnicef > 10/11-10/13 3-4 liquid BM daily; decreasing by 10/15. ..PT W/ MILD COGNITIVE IMPAIRMENT/EARLY DEMENTIA >> not a reliable historian. >> 10/16 cell count 4676 and 86% PMN in cloudy effluent>> consistent w/ peritonitis >>>ordered repeat fluid studies on 10/19 >> peritonitis resolved NEPHRO D/C RECS >>resume regular OP PD prescription >>take amoxicillin 500 mg po tid and nystatin 500K units qid > do this for 3 weeks, through 11/06/24 -he should take metamucil daily OR colace bid, hold for > 1 BM/24 hrs -PRN miralax if no BM x 48hr -he will be seen in PD clinic at his already-planned monthly PD clinic visit in October; no need to arrange CKD clinic f/u or labs >f/u dialysis labs to be drawn at PD clinic; [facility] will schedule/obtain labs >PCP to consider f/u CXR to f/u R pleural effusion Care coordinated w/ Dr España and JAMES Genao multiple times through the day re bowel regimen, antibiotic regimen at d/c and d/c dispo; we are in agreement. (2) Constipation: Plan: resolved continue bowel regimen as above; needs daily BM on PD (3) Hypotension: Plan: chronically w/ sbp 90-100s; on OP midodrine 2.5 mg bid which should continue adn overall improved (4) Pleural effusion: Plan: increasing R pleural effusion > on coumadin; may need to be tapped Admission and Anticipated Discharge Date Admission Date: October 16, 2024 Subjective w/ bowel regimen constipation relieved; abd feels much better; no pain, tolerating po, no sob; no dialysis issues; 840 mL UF Review of Systems 2 Review of Systems: All systems reviewed & are unremarkable except as noted in Subjective Physical Exam 2 Constitutional: well developed, well nourished and cooperative; no acute distress Eyes: EOM intact bilaterally ENMT: Mouth: + dry oral mucous membranes Respiratory: normal respiratory effort Auscultation: + diminished lung sounds (BL bases); no crackles Cardiovascular: Rate/Rhythm: regular rate and regular rhythm Extremities: + edema (RLE 1+; LLE trace at most) Gastrointestinal (Abdomen): Inspection/Auscultation: + abdomen distended, normal bowel sounds and + abdominal surgical drain present (PD cather in place LLQ) Percussion/Palpation: abdomen soft; abdomen nontender, no guarding and no ascites Musculoskeletal: Extremities: strength 5/5 throughout Skin: no rashes, warm and dry Psychiatric: Orientation: alert and oriented x 3 Results & Data Vital Signs (Past 12 Hours) Vital Signs Temp Pulse Pulse Resp BP BP Pulse Ox 10/21/24 13:57 72 10/21/24 13:33 36.4 C L 68 15 115/71 124/78 94 10/21/24 11:06 36.4 C L 68 15 124/78 94 10/21/24 09:30 10/21/24 07:43 69 10/21/24 07:40 36.8 C 69 16 127/76 92 O2 Del Method 10/21/24 13:57 10/21/24 13:33 10/21/24 11:06 Room Air 10/21/24 09:30 Room Air 10/21/24 07:43 10/21/24 07:40 Room Air Laboratory Results 10/19/24 05:02 10/20/24 04:58 (1) Dialysis-associated peritonitis Encounter type: initial encounter Qualified Code(s): T85.71XA - Infection and inflammatory reaction due to peritoneal dialysis catheter, initial encounter
== END 2024-10-21 16:45 | disposition home or self-care (01) | DRG 867 ==
LOC: ED 13:07 → 2W 15:36 → SUATTDRO 15:36 → 2W 17:00

== ENCOUNTER 2024-11-12 17:52 | Inpatient (IN) ==
[2024-11-12 18:59] LABS: Basophils % (auto) 0.9 %; Eosinophils # (auto) 0.26 K/uL (0.00-0.50); Eosinophils % (auto) 2.4 %; Hematocrit (blood only) 41.9 % (42.0-52.0); Immature Granulocytes # (auto) 0.08 K/uL (0.01-0.20); Immature Granulocytes % (auto) 0.7 %; Lymphocytes # (auto) 0.83 K/uL (1.20-3.40); Lymphocytes % (auto) 7.6 %; Mean Corpuscular Hemoglobin 29.4 pg (25.0-34.0); Mean Corpuscular Hgb Conc 33.4 g/dL (32.0-36.0); Mean Platelet Volume 10.1 fL (9.4-12.4); Monocytes # (auto) 1.32 K/uL (0.11-0.59); Monocytes % (auto) 12.2 %; Neutrophils # (auto) 8.27 K/uL (1.40-6.50); Neutrophils % (auto) 76.2 %; Nucleated RBC # (auto) 0.03 K/uL (0.00-0.12); Nucleated RBC % (auto) 0.3 %; Platelet Count 242 K/uL (130-400); RDW Coefficient of Variation 16.3 % (11.5-14.5); RDW Standard Deviation 51.2 fL (36.4-46.3); Red Blood Count 4.76 M/uL (4.70-6.10); White Blood Count 10.86 K/ul (4.8-10.8)
--- NOTE | 2024-11-12 19:10 | XRay Report ---
EXAM: Radiograph of the Chest 1 View INDICATION: 10/18/2024 TECHNIQUE: Frontal view of the chest. COMPARISON: No relevant prior studies available. FINDINGS: Lungs and pleural spaces: Stable right diaphragmatic elevation/eventration. There is stable mild scarring or atelectasis in the lung bases. No consolidation or pulmonary edema. No pleural effusion or pneumothorax. Heart: Shape and configuration within normal limits allowing for technique. Mediastinum: Normal contour. Bones/joints: No fracture, erosion or dislocation. Soft tissues: No abnormality noted. No radiopaque foreign body noted. Vasculature: Stable ectatic aorta. Upper abdomen: No abnormality noted. IMPRESSION: Stable chronic changes. No acute disease. ACT 112: Negative or not required by law. Electronically signed by Sheila Rodriguez 11-12-2024 7:08 PM
[2024-11-12 19:21] LABS: Alanine Aminotransferase 43 U/L (7-52); Albumin Level 3.3 gm/dl (3.4-5.0); Alkaline Phosphatase 84 U/L (34-104); Anion Gap 14 (3-11); Aspartate Aminotransferase 34 U/L (13-39); BUN Creatinine Ratio 3.5 (10-20); Bilirubin,Total 0.6 mg/dl (0.2-1.0); Blood Urea Nitrogen 22 mg/dl (6-23); Calcium 9.2 mg/dl (8.6-10.3); Carbon Dioxide 28 mmol/L (21-32); Chloride 91 mmol/L (98-107); Globulin 3.2 gm/dl (2.5-4.0); Glucose 140 mg/dl (70-99(Fasting)); Magnesium 1.6 mg/dl (1.7-2.4); Potassium 3.6 mmol/L (3.5-5.1); Sodium 133 mmol/L (136-145); Total Protein 6.5 gm/dl (6.0-8.3)
[2024-11-12] MEDS: SODIUM CHLORIDE 0.9% 500 ML IV ONE (19:22)
[2024-11-12 19:24] LABS: Troponin I High Sensitivity 59.6 pg/ml (0-20)
--- NOTE | 2024-11-12 19:25 | Emergency Department Note ---
Impression & Plan COVID-19, Acute hypotension, Elevated lactic acid level, Elevated troponin ED Provider Note HISTORY OF PRESENT ILLNESS: Patient is a 79-year-old male presenting with hypotension and hypoxia. Patient presents from [facility]. Per documentation that they have sent from their facility, the patient has been having low blood pressure readings over the last few days. Yesterday he is noted to have blood pressures of 88/46, 80/58, 98/62 and 92/62. He reportedly was having some shortness of breath today. At approximately 4:50 PM, he had some diarrhea and needed assistance with getting cleaned up by staff at the facility. He reportedly became very short of breath and verbalized feeling weak and he did not want to stand up. They took his blood pressure and it was noted to be 88/52 and his heart rate was 101. His oxygen saturations were reportedly dropping down into the low 80s with extensive activity. He was referred to the emergency department due to his low blood pressure readings, weakness and now low oxygen saturations. 5:15 PM today, his oxygen saturation was reportedly 80% at rest, had a blood pressure of 90/59 had a heart rate of 90. On arrival to the emergency department, the patient does report feeling short of breath today. He denies any abdominal pain, nausea or vomiting. He is on peritoneal dialysis and has 2.5 L of fluid in his abdomen at this time. He denies any chest pain with the 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 He denies any recent fevers or sick contact exposures. ROS: as above PHYSICAL EXAM: Constitutional: Patient appears in no acute distress. HENT: Head: Normocephalic and atraumatic. Eyes: EOMI, PERRL Mouth/Throat: Mucous membranes moist. Neck: Trachea midline. Neck supple. Cardiovascular: RRR, No murmurs, rubs or gallops. Intact distal pulses. Pulmonary/Chest: No respiratory distress. Breath sounds clear and equal bilaterally. No wheezes or rales. Abdominal: Abdomen soft, no tenderness, rebound or guarding. Peritoneal dialysis catheter present in the left lower quadrant. Musculoskeletal: No edema, tenderness or deformity noted. Skin: Warm and dry. No rash, erythema, pallor or cyanosis Psychiatric: Appropriate mood and affect for situation. Neurological: Alert and keenly responsive. CN II-XII grossly intact, moving all extremities equally and fully. MDM: - Vitals signs showed hypotension - History obtained via patient and patient's son at bedside. History as above. - Chronic conditions affecting care: HTN; HLD; prostate cancer; PEs; hypertrophic cardiomyopathy; CAD; peritoneal dialysis - Differential diagnoses include, but are not limited to: dehydration; electrolyte abnormality; pneumonia; spontaneous bacterial peritonitis - Order placed for continuous cardiac monitoring. At this time, monitor showed rate of 101 bpm with normal sinus rhythm, per my interpretation. - External medical records reviewed. Documentation from patient's care facility was reviewed. Blood pressures as noted above. - EKG interpreted by myself showed normal sinus rhythm. Rate 89 bpm. QT 456. No acute ischemic changes. Noted to have a right bundle branch block. - Laboratory workup interpreted by myself showed slight leukocytosis (WBC 10.86); elevated INR (2.9); hyponatremia (Na 133); elevated lactate (3.9); ESRD (Cr 6.33); elevated anion gap (14); hypomagnesemia (Mg 1.6); elevated troponin (59.6); normal procalcitonin - Patient given 500 cc NS in ER. - Orthostatic vital signs showed that patient became hypotensive to 70s over 40s with standing - An additional 1L NS ordered. Blood cultures also ordered - Viral respiratory panel positive for COVID-19 - IV zosyn ordered for antibiotic coverage. - Patient given 1g IV magnesium for electrolyte replacement - Discussion was had with housing case manager about patient's case and need for admission - Hospitalist, Dr. Snow, consulted for admission - [facility] ASSESSMENT AND PLAN: Diagnosis: acute hypotension; COVID; hypomagnesemia; elevated lactic acid; elevated troponin Plan: admit Past Med/Surg History Problem List (Updated 11/12/24 @ 22:08 by Jennie Anderson MD) Elevated troponin (Acute) Elevated lactic acid level (Acute) Acute hypotension (Acute) COVID-19 (Acute) Constipation Enterococcus faecalis infection End stage renal disease Peritonitis due to infected peritoneal dialysis catheter Pleural effusion Dialysis-associated peritonitis (Acute) Severe sepsis (Acute) Acute on chronic anemia Pneumoperitoneum Hypothyroid Elevated troponin I level Hypotension Atrial flutter with rapid ventricular response Hypotension Atrial fibrillation with RVR (Acute) Anticoagulant long-term use (Acute) Bright red rectal bleeding (Acute) Bifascicular block Hypertrophic cardiomyopathy Atrial flutter, paroxysmal Acute dyspnea (Acute) Atrial fibrillation with rapid ventricular response Bilateral pulmonary embolism (Acute) Bilateral pulmonary embolism Encounter for pre-operative examination Hyperkalemia Weakness (Acute) Hyperkalemia (Acute) Lab test negative for COVID-19 virus (Acute) Prostate cancer s/p prostatectomy Tobacco use Quit 03/2023 HTN (hypertension) HLD (hyperlipidemia) CKD (chronic kidney disease), stage V (Acute) Medical History CAP (community acquired pneumonia) Hypotension ESRD on peritoneal dialysis Renal cyst 3.9 cm cystic lesion-L Paroxysmal A-fib listed in [facility] records CAD (coronary artery disease) PVD (peripheral vascular disease) Dysphagia Anemia Pulmonary nodule MGUS (monoclonal gammopathy of unknown significance) follows with [facility] heme/onc LBBB (left bundle branch block) Hearing deficit Surgical History History of appendectomy History of tooth extraction all teeth removed History of bilateral cataract extraction History of prostatectomy Family History Father Diabetes Other No family history of adverse response to anesthesia Social History Smoking Status: Former smoker Tobacco Type: Cigarettes Second Hand Exposure: No; Do You Dip or Chew Tobacco: No; Hx Alcohol Use: Yes Alcohol type: wine Hx Substance Use: No Preferred Language: [place] Island[place] Communication Ability: Impaired Mutual Fund Manager Required: No Beliefs That Will Affect Care: None Current Living Situation: Personal Care Facility Current Living Situation Comment: walker used at facility Feels Safe at Home: Yes Assistive Devices: Walker Allergies Allergies Allergy/AdvReac Type Severity Reaction Status Date / Time No Known Allergies Allergy Verified 04/13/24 02:01 Home Meds Home Medications Medication Instructions Recorded Confirmed amiodarone 200 mg tablet 200 mg PO DAILY 10/16/24 11/12/24 metoprolol succinate 25 mg 25 mg PO DAILY 10/16/24 11/12/24 tablet,extended release 24 hr midodrine 2.5 mg tablet 2.5 mg PO AMPM 10/16/24 11/12/24 warfarin 2 mg tablet 2 mg PO DAILY 10/19/24 11/12/24 Lactobacillus acidophilus 1 tab PO DAILY 11/12/24 11/12/24 cholecalciferol (vitamin D3) 50 50 mcg PO DAILY 11/12/24 11/12/24 mcg (2,000 unit) capsule (Vitamin D3) metoprolol tartrate 25 mg tablet 25 mg PO DAILY PRN HR > 100 @ REST 11/12/24 11/12/24 pantoprazole 40 mg tablet,delayed 40 mg PO DAILY 11/12/24 11/12/24 release Previous Rx's Medication Instructions Recorded docusate sodium 100 mg capsule 100 mg PO BID #60 caps 10/21/24 polyethylene glycol 3350 17 gram 17 g PO DAILY PRN constipation #30 10/21/24 oral powder packet (Miralax) ea Results & Data (ED) Vital Signs Vital Signs - 24 hr 11/12/24 18:00 11/12/24 18:49 11/12/24 18:53 Temperature 36.4 C L Temperature Source Temporal Artery Scan Pulse Rate - Lying Pulse Rate - Sitting Pulse Rate - Standing Pulse Rate 92 H 89 87 Pulse Rate [Apical] Pulse Rate from SpO2 Sensor Respiratory Rate 20 Respiratory Effort / Characteristics Non-Labored Spontaneous Respiratory Depth Normal Blood Pressure - Lying Blood Pressure - Sitting Blood Pressure- Standing Blood Pressure 96/62 L Blood Pressure [Right Arm] Blood Pressure Mean 73 Blood Pressure Mean [Right Arm] Blood Pressure Position [Right Arm] Pulse Oximetry 93 96 Oxygen Delivery Method Room Air Room Air Sepsis Recent Fever Within 48 Hours No Sepsis New/Unexplained Change in Mental Status No Sepsis Action Taken by Nursing No Action Required 11/12/24 19:00 11/12/24 19:30 11/12/24 21:00 Temperature Temperature Source Pulse Rate - Lying Pulse Rate - Sitting Pulse Rate - Standing Pulse Rate 85 88 Pulse Rate [Apical] Pulse Rate from SpO2 Sensor 86 91 H Respiratory Rate 21 20 Respiratory Effort / Characteristics Non-Labored Spontaneous Respiratory Depth Normal Blood Pressure - Lying Blood Pressure - Sitting Blood Pressure- Standing Blood Pressure 105/73 104/65 Blood Pressure [Right Arm] Blood Pressure Mean 83 78 Blood Pressure Mean [Right Arm] Blood Pressure Position [Right Arm] Pulse Oximetry 96 95 Oxygen Delivery Method Sepsis Recent Fever Within 48 Hours Sepsis New/Unexplained Change in Mental Status Sepsis Action Taken by Nursing 11/12/24 21:08 11/12/24 21:15 Temperature Temperature Source Pulse Rate - Lying 138 H Pulse Rate - Sitting 102 H Pulse Rate - Standing 105 H Pulse Rate Pulse Rate [Apical] 101 H Pulse Rate from SpO2 Sensor Respiratory Rate 18 Respiratory Effort / Characteristics Respiratory Depth Blood Pressure - Lying 92/57 L Blood Pressure - Sitting 95/61 L Blood Pressure- Standing 77/43 L Blood Pressure Blood Pressure [Right Arm] 103/70 Blood Pressure Mean Blood Pressure Mean [Right Arm] 81 Blood Pressure Position [Right Arm] Sitting Pulse Oximetry Oxygen Delivery Method Sepsis Recent Fever Within 48 Hours Sepsis New/Unexplained Change in Mental Status Sepsis Action Taken by Nursing Laboratory Data 11/12/24 18:35 11/12/24 18:35 Lab Results 11/12/24 11/12/24 11/12/24 Range/Units 18:35 19:34 21:05 WBC 10.86 H (4.8-10.8) K/ul RBC 4.76 (4.70-6.10) M/uL Hgb 14.0 (14.0-18.0) g/dl Hct 41.9 L (42.0-52.0) % MCV 88.0 (80.0-100.0) fL MCH 29.4 (25.0-34.0) pg MCHC 33.4 (32.0-36.0) g/dL RDW Std Deviation 51.2 H (36.4-46.3) fL RDW Coeff of Maureen 16.3 H (11.5-14.5) % Plt Count 242 (130-400) K/uL MPV 10.1 (9.4-12.4) fL Immature Gran % (Auto) 0.7 % Neut % (Auto) 76.2 % Lymph % (Auto) 7.6 % Humphreys % (Auto) 12.2 % Eos % (Auto) 2.4 % Baso % (Auto) 0.9 % Neut # (Auto) 8.27 H (1.40-6.50) K/uL Lymph # (Auto) 0.83 L (1.20-3.40) K/uL Humphreys # (Auto) 1.32 H (0.11-0.59) K/uL Eos # (Auto) 0.26 (0.00-0.50) K/uL Baso # (Auto) 0.10 (0.00-0.20) K/uL Immature Gran # (Auto) 0.08 (0.01-0.20) K/uL Absolute Nucleated RBC 0.03 (0.00-0.12) K/uL Nucleated RBC % (auto) 0.3 % PT 28.2 H (9.0-12.0) Seconds INR 2.9 H (0.9-1.1) APTT 44 H (21-31) Seconds PTT Ratio 1.6 Sodium 133 L (136-145) mmol/L Potassium 3.6 (3.5-5.1) mmol/L Chloride 91 L (98-107) mmol/L Carbon Dioxide 28 (21-32) mmol/L Anion Gap 14 H (3-11) BUN 22 (6-23) mg/dl Creatinine 6.33 H* (0.6-1.4) mg/dl Est Cr Clr Drug Dosing Not Reportable eGFR 8.41 BUN/Creatinine Ratio 3.5 L (10-20) Glucose 140 H (70-99(Fasting)) mg/dl Lactate 3.9 H* (0.4-2.0) mmol/L Calcium 9.2 (8.6-10.3) mg/dl Magnesium 1.6 L (1.7-2.4) mg/dl Total Bilirubin 0.6 (0.2-1.0) mg/dl AST 34 (13-39) U/L ALT 43 (7-52) U/L Alkaline Phosphatase 84 (34-104) U/L Troponin I High Sens 59.6 H* 53.4 H* (0-20) pg/ml Total Protein 6.5 (6.0-8.3) gm/dl Albumin 3.3 L (3.4-5.0) gm/dl Globulin 3.2 (2.5-4.0) gm/dl Albumin/Globulin Ratio 1.0 (0.9-2) Procalcitonin 0.48 (0-0.5) ng/ml Adenovirus (PCR) (NotDetected) B. pertussis DNA (PCR) (NotDetected) B.parapertussis DNA PCR (NotDetected) C. pneumoniae DNA (PCR) (NotDetected) Coronavirus OC43 (PCR) (NotDetected) Coronavirus HKU1 (PCR) (NotDetected) Coronavirus 229E (PCR) (NotDetected) SARS-CoV-2 (PCR) (NotDetected) Coronavirus NL63 (PCR) (NotDetected) Human Metapneumovir PCR (NotDetected) Influenza Type A (PCR) (NotDetected) Influenza Type B (PCR) (NotDetected) M. pneumoniae (PCR) (NotDetected) Parainfluenza 1 (PCR) (NotDetected) Parainfluenza 2 (PCR) (NotDetected) Parainfluenza 3 (PCR) (NotDetected) Parainfluenza 4 (PCR) (NotDetected) RSV (PCR) (NotDetected) Entero/Rhino (PCR) (NotDetected) 11/12/24 Range/Units Unknown WBC (4.8-10.8) K/ul RBC (4.70-6.10) M/uL Hgb (14.0-18.0) g/dl Hct (42.0-52.0) % MCV (80.0-100.0) fL MCH (25.0-34.0) pg MCHC (32.0-36.0) g/dL RDW Std Deviation (36.4-46.3) fL RDW Coeff of Maureen (11.5-14.5) % Plt Count (130-400) K/uL MPV (9.4-12.4) fL Immature Gran % (Auto) % Neut % (Auto) % Lymph % (Auto) % Humphreys % (Auto) % Eos % (Auto) % Baso % (Auto) % Neut # (Auto) (1.40-6.50) K/uL Lymph # (Auto) (1.20-3.40) K/uL Humphreys # (Auto) (0.11-0.59) K/uL Eos # (Auto) (0.00-0.50) K/uL Baso # (Auto) (0.00-0.20) K/uL Immature Gran # (Auto) (0.01-0.20) K/uL Absolute Nucleated RBC (0.00-0.12) K/uL Nucleated RBC % (auto) % PT (9.0-12.0) Seconds INR (0.9-1.1) APTT (21-31) Seconds PTT Ratio Sodium (136-145) mmol/L Potassium (3.5-5.1) mmol/L Chloride (98-107) mmol/L Carbon Dioxide (21-32) mmol/L Anion Gap (3-11) BUN (6-23) mg/dl Creatinine (0.6-1.4) mg/dl Est Cr Clr Drug Dosing eGFR BUN/Creatinine Ratio (10-20) Glucose (70-99(Fasting)) mg/dl Lactate (0.4-2.0) mmol/L Calcium (8.6-10.3) mg/dl Magnesium (1.7-2.4) mg/dl Total Bilirubin (0.2-1.0) mg/dl AST (13-39) U/L ALT (7-52) U/L Alkaline Phosphatase (34-104) U/L Troponin I High Sens (0-20) pg/ml Total Protein (6.0-8.3) gm/dl Albumin (3.4-5.0) gm/dl Globulin (2.5-4.0) gm/dl Albumin/Globulin Ratio (0.9-2) Procalcitonin (0-0.5) ng/ml Adenovirus (PCR) Not Detected (NotDetected) B. pertussis DNA (PCR) Not Detected (NotDetected) B.parapertussis DNA PCR Not Detected (NotDetected) C. pneumoniae DNA (PCR) Not Detected (NotDetected) Coronavirus OC43 (PCR) Not Detected (NotDetected) Coronavirus HKU1 (PCR) Not Detected (NotDetected) Coronavirus 229E (PCR) Not Detected (NotDetected) SARS-CoV-2 (PCR) DETECTED A (NotDetected) Coronavirus NL63 (PCR) Not Detected (NotDetected) Human Metapneumovir PCR Not Detected (NotDetected) Influenza Type A (PCR) Not Detected (NotDetected) Influenza Type B (PCR) Not Detected (NotDetected) M. pneumoniae (PCR) Not Detected (NotDetected) Parainfluenza 1 (PCR) Not Detected (NotDetected) Parainfluenza 2 (PCR) Not Detected (NotDetected) Parainfluenza 3 (PCR) Not Detected (NotDetected) Parainfluenza 4 (PCR) Not Detected (NotDetected) RSV (PCR) Not Detected (NotDetected) Entero/Rhino (PCR) Not Detected (NotDetected) Administered Medications Sodium Chloride (Nss) 1,000 mls @ 999 mls/hr IV .Q1H1M ONE Stop: 11/12/24 22:19 Last Admin: 11/12/24 21:22 Dose: 999 mls/hr Documented By: VINOD Discontinued Medications Sodium Chloride (Nss) 500 mls @ 999 mls/hr IV .Q31M ONE Stop: 11/12/24 19:24 Last Infusion: 11/12/24 19:56 Dose: Infused Documented By: Admin: 11/12/24 19:22 Dose: 999 mls/hr Documented By: VINOD Magnesium Sulfate/Dextrose (Magnesium Sulfate / D5w) 1 gm in 100 mls @ 100 mls/hr IV NOW STA Stop: 11/12/24 21:23 Last Admin: 11/12/24 21:20 Dose: 100 mls/hr Documented By: VINOD Ondansetron HCl (Ondansetron Inj 2 Mg/Ml 2 Ml Vial) 4 mg IV NOW STA Stop: 11/12/24 19:22 Last Admin: 11/12/24 19:30 Dose: Not Given Documented By: VINOD Imaging Data Radiologist's Impression: Chest X-Ray 11/12/24 18:05 EXAM: Radiograph of the Chest 1 View INDICATION: 10/18/2024 TECHNIQUE: Frontal view of the chest. COMPARISON: No relevant prior studies available. FINDINGS: Lungs and pleural spaces: Stable right diaphragmatic elevation/eventration. There is stable mild scarring or atelectasis in the lung bases. No consolidation or pulmonary edema. No pleural effusion or pneumothorax. Heart: Shape and configuration within normal limits allowing for technique. Mediastinum: Normal contour. Bones/joints: No fracture, erosion or dislocation. Soft tissues: No abnormality noted. No radiopaque foreign body noted. Vasculature: Stable ectatic aorta. Upper abdomen: No abnormality noted. IMPRESSION: Stable chronic changes. No acute disease. ACT 112: Negative or not required by law. Electronically signed by Sheila Rodriguez 11-12-2024 7:08 PM Discharge Plan Visit Data Chief Complaint: Weakness Stated Complaint: WEAK,LOW O2,DIZZY,LOW BP,TACHYCARDIA ED Provider: Jennie Anderson Discharge Problem: COVID-19, Acute hypotension, Elevated lactic acid level, Elevated troponin Forms Stand Alone Forms: My [facility] Prescriptions Prescriptions: No Action amiodarone 200 mg tablet 200 mg PO DAILY midodrine 2.5 mg tablet 2.5 mg PO AMPM Rx Instructions: HOLD FOR SBP >120 metoprolol succinate 25 mg tablet extended release 24 hr 25 mg PO DAILY Rx Instructions: HOLD IF SBP IS < 100 OR HR < 50 warfarin 2 mg Tablet 2 mg PO DAILY polyethylene glycol 3350 [Miralax] 17 gram Powder In Packet 17 g PO DAILY PRN (Reason: constipation) Qty: 30 0RF Rx Instructions: 1 packet daily as needed for constipation docusate sodium 100 mg Capsule 100 mg PO BID Qty: 60 0RF pantoprazole 40 mg Tablet,Delayed Release (Dr/Ec) 40 mg PO DAILY Lactobacillus acidophilus Tablet,Chewable 1 tab PO DAILY metoprolol tartrate 25 mg Tablet 25 mg PO DAILY PRN (Reason: HR > 100 @ REST) cholecalciferol (vitamin D3) [Vitamin D3] 50 mcg (2,000 unit) Capsule 50 mcg PO DAILY Referrals Referrals: [facility] [Primary Care Provider] -
[2024-11-12 19:26] LABS: INR 2.9 (0.9-1.1); Partial Thromboplastin Ratio 1.6; Partial Thromboplastin Time 44 Seconds (21-31); Prothrombin Time 28.2 Seconds (9.0-12.0)
[2024-11-12] MEDS: ONDANSETRON INJ 2 MG/ML 2 ML VIAL IV STA (19:30)
[2024-11-12 19:43] LABS: Adenovirus PCR Not Detected (NotDetected); Bordetella parapertussis PCR Not Detected (NotDetected); Bordetella pertussis PCR Not Detected (NotDetected); Chlamydia pneumoniae PCR Not Detected (NotDetected); Coronavirus 229E PCR Not Detected (NotDetected); Coronavirus CoV-2 (COVID19)PCR DETECTED (NotDetected); Coronavirus HKU1 PCR Not Detected (NotDetected); Coronavirus NL63 PCR Not Detected (NotDetected); Coronavirus OC43PCR Not Detected (NotDetected); Human Metapneumovirus PCR Not Detected (NotDetected); Influenza A PCR Not Detected (NotDetected); Influenza B PCR Not Detected (NotDetected); Mycoplasma pneumoniae PCR Not Detected (NotDetected); Parainfluenza Virus 1 PCR Not Detected (NotDetected); Parainfluenza Virus 2 PCR Not Detected (NotDetected); Parainfluenza Virus 3 PCR Not Detected (NotDetected); Parainfluenza Virus 4 PCR Not Detected (NotDetected); Respiratory Syncytial VirusPCR Not Detected (NotDetected); Rhinovirus/Enterovirus PCR Not Detected (NotDetected)
[2024-11-12] MEDS: MAGNESIUM SULFATE / D5W 1 GM/100 ML BAG IV STA (21:20)
[2024-11-12] MEDS: SODIUM CHLORIDE 0.9% 1,000 ML IV ONE (21:22)
[2024-11-12 21:57] LABS: Troponin I High Sensitivity 53.4 pg/ml (0-20)
--- NOTE | 2024-11-12 22:03 | History & Physical Report ---
Date of Service November 12, 2024 Assessment & Plan (1) Hypotension: Plan: Hypotension Acute on chronic History midodrine Rx Secondary to COVID-19 illness Troponin elevation secondary to illness in the setting of chronic kidney dysfunction, history ESRD on PD SOB secondary to illness, patient symptoms resolved after fluid bolus given at the ER Diarrhea secondary to illness rule out C. difficile given recent antibiotic Rx for dialysis associated peritonitis hx PE/A-fib (early TBS) on Coumadin, INR therapeutic hypertrophic cardiomyopathy CAD/ PVD COPD/RLD as per records, not in acute exacerbation cirrhosis on imaging from past admission prostate cancer status post surgery Chronic anemia, hemoglobin better than baseline likely secondary to hemoconcentration cognitive impairment, patient mentating well inclusion body myositis as per records, patient to decide on steroid Rx recommendation from local neurologist following recent outpatient visit Hyperglycemia secondary to diabetes, hemoglobin A1c of 6.4 from last year Subclinical hypothyroidism past tobacco abuse. Admit to PCU Monitor lactic acid response to IV albumin Titrate home midodrine Supportive management for COVID-19 illness for now No indication for antibiotic/antiviral Rx Stool CS, stool C. difficile CT chest re: SOB/low O2 Further management contingent on workup results Nephrology consult Re: Peritoneal dialysis management Update hemoglobin A1c Recheck TSH after 6 weeks DVT prophylaxis. Coumadin INR goal between 2 and 3 Full code Total critical care time was 40 minutes. Patient's son requesting updates providers. Mr. Dominic Samson, contact #[phone]. Text document was generated using [employer] voice recognition software. It may contain grammatical or spelling errors. Kindly contact undersigned for clarification of any documentation item in qu estion. History of Present Illness Chief Complaint: Shortness of breath, hypotension Primary Care Provider: [facility] History obtained from patient and records. Medical history significant for PE/A-fib (early TBS) on Coumadin, hypertrophic cardiomyopathy, moderate TR, CAD, PVD, hypotension on midodrine, COPD/RLD as per records, ESRD on PD, esophageal achalasia as per records, cirrhosis, prostate cancer status post surgery, MGUS, chronic anemia (baseline hemoglobin 10-11), cognitive impairment, inclusion body myositis as per records, past tobacco abuse. Recent confinement last month for sepsis secondary to dialysis associated peritonitis. Incidental finding of cirrhosis on imaging. Enterococcus on CS. Patient discharged on 3-week amoxicillin course and nystatin for fungal peritonitis prophylaxis. Patient felt increasingly sick and weak over the last 2 days. No chest pain, no cough symptoms. Sick contact at personal care facility. Shortness of breath from weakness as per patient. No cough symptoms. Watery loose stools yesterday. Denies headache or abdominal pain. SBP 80s at facility. O2 sats dropping to 80s on exertion. Patient brought to ER for evaluation. Lowest SBP of 70s documented at the ER. Zosyn administered at the ER. 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 Allergies Allergy/AdvReac Type Severity Reaction Status Date / Time No Known Allergies Allergy Verified 11/12/24 22:14 Home Medications Medication Instructions Recorded Confirmed Type amiodarone 200 mg tablet 200 mg PO DAILY 10/16/24 11/12/24 History metoprolol succinate 25 mg 25 mg PO DAILY 10/16/24 11/12/24 History tablet,extended release 24 hr midodrine 2.5 mg tablet 2.5 mg PO AMPM 10/16/24 11/12/24 History warfarin 2 mg tablet 2 mg PO DAILY 10/19/24 11/12/24 History docusate sodium 100 mg capsule 100 mg PO BID #60 caps 10/21/24 11/12/24 Rx polyethylene glycol 3350 17 gram 17 g PO DAILY PRN constipation #30 10/21/24 11/12/24 Rx oral powder packet (Miralax) ea Lactobacillus acidophilus 1 tab PO DAILY 11/12/24 11/12/24 History Renal Multivit W/1mg Or <Fa 1 tab PO DAILY 11/12/24 11/12/24 History acetaminophen 500 mg tablet 500 mg PO Q6H 11/12/24 11/12/24 History cholecalciferol (vitamin D3) 50 50 mcg PO DAILY 11/12/24 11/12/24 History mcg (2,000 unit) capsule (Vitamin D3) gentamicin 0.1 % topical cream 1 applic topical DAILY 11/12/24 11/12/24 History lanolin alcohols-mineral 1 applic topical UD PRN SKIN CARE 11/12/24 11/12/24 History oil-w.petrolatum-ceresin topical cream (Eucerin topical cream) maltodextrin 1 ea PO QAM PRN Constipation 11/12/24 11/12/24 History menthol 0.44 %-zinc oxide 20.6 % 1 applic topical DAILY 11/12/24 11/12/24 History topical ointment (Calmoseptine) metoprolol tartrate 25 mg tablet 25 mg PO DAILY PRN HR > 100 @ REST 11/12/24 11/12/24 History pantoprazole 40 mg tablet,delayed 40 mg PO DAILY 11/12/24 11/12/24 History release Past Med/Surg History Problem List (Updated 11/12/24 @ 22:08 by Jennie Anderson MD) Elevated troponin (Acute) Elevated lactic acid level (Acute) Acute hypotension (Acute) COVID-19 (Acute) Constipation Enterococcus faecalis infection End stage renal disease Peritonitis due to infected peritoneal dialysis catheter Pleural effusion Dialysis-associated peritonitis (Acute) Severe sepsis (Acute) Acute on chronic anemia Pneumoperitoneum Hypothyroid Elevated troponin I level Hypotension Atrial flutter with rapid ventricular response Hypotension Atrial fibrillation with RVR (Acute) Anticoagulant long-term use (Acute) Bright red rectal bleeding (Acute) Bifascicular block Hypertrophic cardiomyopathy Atrial flutter, paroxysmal Acute dyspnea (Acute) Atrial fibrillation with rapid ventricular response Bilateral pulmonary embolism (Acute) Bilateral pulmonary embolism Encounter for pre-operative examination Hyperkalemia Weakness (Acute) Hyperkalemia (Acute) Lab test negative for COVID-19 virus (Acute) Prostate cancer s/p prostatectomy Tobacco use Quit 03/2023 HTN (hypertension) HLD (hyperlipidemia) CKD (chronic kidney disease), stage V (Acute) Medical History CAP (community acquired pneumonia) Hypotension ESRD on peritoneal dialysis Renal cyst 3.9 cm cystic lesion-L Paroxysmal A-fib listed in [facility] records CAD (coronary artery disease) PVD (peripheral vascular disease) Dysphagia Anemia Pulmonary nodule MGUS (monoclonal gammopathy of unknown significance) follows with [facility] heme/onc LBBB (left bundle branch block) Hearing deficit Surgical History History of appendectomy History of tooth extraction all teeth removed History of bilateral cataract extraction History of prostatectomy Family History Father Diabetes Other No family history of adverse response to anesthesia Social History Smoking Status: Former smoker Tobacco Type: Cigarettes Second Hand Exposure: No; Do You Dip or Chew Tobacco: No; Hx Alcohol Use: Yes Alcohol type: hard liquor Hx Substance Use: No Preferred Language: Pashto Communication Ability: Effective Customer Account Administrator Required: No Beliefs That Will Affect Care: None Current Living Situation: Jail Current Living Situation Comment: lives at facility Feels Safe at Home: Yes Assistive Devices: Denture - Upper, Denture - Lower, Hearing Aid - Bilateral and Walker Review of Systems Review of Systems: As per HPI, all other systems reviewed and negative Physical Exam Physical Exam: GENERAL: Comfortable, pleasant, hard of hearing, no respiratory distress SKIN: Pallor, warm HEENT: Pale palpebral conjunctivae, no ptosis, dry buccal mucosa NECK : Supple, no tenderness CHEST : Decreased breath sounds, no tenderness HEART : RRR, systolic murmur ABDOMEN: Some distention, PD port noted EXTREMITIES : Minima LE swelling no LE tenderness, no other conspicuous deformities noted NEUROLOGIC : Coherent, no facial asymmetry, slightly hard of hearing, no other gross focality Results & Data Results & Data Vital Signs (Past 12 Hours) Vital Signs Temp Pulse Pulse Resp BP BP Pulse Ox 11/12/24 21:15 101 H 18 103/70 11/12/24 19:30 88 20 104/65 95 11/12/24 19:00 85 21 105/73 96 11/12/24 18:53 87 11/12/24 18:49 89 96 11/12/24 18:00 36.4 C L 92 H 20 96/62 L 93 O2 Del Method 11/12/24 21:15 11/12/24 19:30 11/12/24 19:00 11/12/24 18:53 11/12/24 18:49 Room Air 11/12/24 18:00 Room Air Laboratory Results Laboratory Results WBC 10.86 K/ul (4.8-10.8) H 11/12/24 18:35 RBC 4.76 M/uL (4.70-6.10) 11/12/24 18:35 Hgb 14.0 g/dl (14.0-18.0) 11/12/24 18:35 Hct 41.9 % (42.0-52.0) L 11/12/24 18:35 MCV 88.0 fL (80.0-100.0) 11/12/24 18:35 MCH 29.4 pg (25.0-34.0) 11/12/24 18:35 MCHC 33.4 g/dL (32.0-36.0) 11/12/24 18:35 RDW Std Deviation 51.2 fL (36.4-46.3) H 11/12/24 18:35 RDW Coeff of Maureen 16.3 % (11.5-14.5) H 11/12/24 18:35 Plt Count 242 K/uL (130-400) 11/12/24 18:35 MPV 10.1 fL (9.4-12.4) 11/12/24 18:35 Immature Gran % (Auto) 0.7 % 11/12/24 18:35 Neut % (Auto) 76.2 % 11/12/24 18:35 Lymph % (Auto) 7.6 % 11/12/24 18:35 [place] % (Auto) 12.2 % 11/12/24 18:35 Eos % (Auto) 2.4 % 11/12/24 18:35 Baso % (Auto) 0.9 % 11/12/24 18:35 Neut # (Auto) 8.27 K/uL (1.40-6.50) H 11/12/24 18:35 Lymph # (Auto) 0.83 K/uL (1.20-3.40) L 11/12/24 18:35 [place] # (Auto) 1.32 K/uL (0.11-0.59) H 11/12/24 18:35 Eos # (Auto) 0.26 K/uL (0.00-0.50) 11/12/24 18:35 Baso # (Auto) 0.10 K/uL (0.00-0.20) 11/12/24 18:35 Immature Gran # (Auto) 0.08 K/uL (0.01-0.20) 11/12/24 18:35 Absolute Nucleated RBC 0.03 K/uL (0.00-0.12) 11/12/24 18:35 Nucleated RBC % (auto) 0.3 % 11/12/24 18:35 PT 28.2 Seconds (9.0-12.0) H 11/12/24 18:35 INR 2.9 (0.9-1.1) H 11/12/24 18:35 APTT 44 Seconds (21-31) H 11/12/24 18:35 PTT Ratio 1.6 11/12/24 18:35 Sodium 133 mmol/L (136-145) L 11/12/24 18:35 Potassium 3.6 mmol/L (3.5-5.1) 11/12/24 18:35 Chloride 91 mmol/L (98-107) L 11/12/24 18:35 Carbon Dioxide 28 mmol/L (21-32) 11/12/24 18:35 Anion Gap 14 (3-11) H 11/12/24 18:35 BUN 22 mg/dl (6-23) 11/12/24 18:35 Creatinine 6.33 mg/dl (0.6-1.4) H* 11/12/24 18:35 Est Cr Clr Drug Dosing Not Reportable 11/12/24 18:35 eGFR 8.41 11/12/24 18:35 BUN/Creatinine Ratio 3.5 (10-20) L 11/12/24 18:35 Glucose 140 mg/dl (70-99(Fasting)) H 11/12/24 18:35 Lactate 3.9 mmol/L (0.4-2.0) H* 11/12/24 19:34 Calcium 9.2 mg/dl (8.6-10.3) 11/12/24 18:35 Magnesium 1.6 mg/dl (1.7-2.4) L 11/12/24 18:35 Total Bilirubin 0.6 mg/dl (0.2-1.0) 11/12/24 18:35 AST 34 U/L (13-39) 11/12/24 18:35 ALT 43 U/L (7-52) 11/12/24 18:35 Alkaline Phosphatase 84 U/L (34-104) 11/12/24 18:35 Troponin I High Sens 53.4 pg/ml (0-20) H* 11/12/24 21:05 Total Protein 6.5 gm/dl (6.0-8.3) 11/12/24 18:35 Albumin 3.3 gm/dl (3.4-5.0) L 11/12/24 18:35 Globulin 3.2 gm/dl (2.5-4.0) 11/12/24 18:35 Albumin/Globulin Ratio 1.0 (0.9-2) 11/12/24 18:35 Procalcitonin 0.48 ng/ml (0-0.5) 11/12/24 18:35 Adenovirus (PCR) Not Detected (NotDetected) 11/12/24 Unknown B. pertussis DNA (PCR) Not Detected (NotDetected) 11/12/24 Unknown B.parapertussis DNA PCR Not Detected (NotDetected) 11/12/24 Unknown C. pneumoniae DNA (PCR) Not Detected (NotDetected) 11/12/24 Unknown Coronavirus OC43 (PCR) Not Detected (NotDetected) 11/12/24 Unknown Coronavirus HKU1 (PCR) Not Detected (NotDetected) 11/12/24 Unknown Coronavirus 229E (PCR) Not Detected (NotDetected) 11/12/24 Unknown SARS-CoV-2 (PCR) DETECTED (NotDetected) A 11/12/24 Unknown Coronavirus NL63 (PCR) Not Detected (NotDetected) 11/12/24 Unknown Human Metapneumovir PCR Not Detected (NotDetected) 11/12/24 Unknown Influenza Type A (PCR) Not Detected (NotDetected) 11/12/24 Unknown Influenza Type B (PCR) Not Detected (NotDetected) 11/12/24 Unknown M. pneumoniae (PCR) Not Detected (NotDetected) 11/12/24 Unknown Parainfluenza 1 (PCR) Not Detected (NotDetected) 11/12/24 Unknown Parainfluenza 2 (PCR) Not Detected (NotDetected) 11/12/24 Unknown Parainfluenza 3 (PCR) Not Detected (NotDetected) 11/12/24 Unknown Parainfluenza 4 (PCR) Not Detected (NotDetected) 11/12/24 Unknown RSV (PCR) Not Detected (NotDetected) 11/12/24 Unknown Entero/Rhino (PCR) Not Detected (NotDetected) 11/12/24 Unknown Impressions Chest X-Ray 11/12/24 18:05 EXAM: Radiograph of the Chest 1 View INDICATION: 10/18/2024 TECHNIQUE: Frontal view of the chest. COMPARISON: No relevant prior studies available. FINDINGS: Lungs and pleural spaces: Stable right diaphragmatic elevation/eventration. There is stable mild scarring or atelectasis in the lung bases. No consolidation or pulmonary edema. No pleural effusion or pneumothorax. Heart: Shape and configuration within normal limits allowing for technique. Mediastinum: Normal contour. Bones/joints: No fracture, erosion or dislocation. Soft tissues: No abnormality noted. No radiopaque foreign body noted. Vasculature: Stable ectatic aorta. Upper abdomen: No abnormality noted. IMPRESSION: Stable chronic changes. No acute disease. ACT 112: Negative or not required by law. Electronically signed by Sheila Rodriguez 11-12-2024 7:08 PM Diagnostic Findings EKG as per my interpretation :Rate 90, NSR, LAD, LAFB, RBBB, no ischemia (1) Hypotension Hypotension type: hypotension due to hypovolemia Qualified Code(s): E86.1 - Hypovolemia
[2024-11-12 22:30] LABS: Thyroid Stimulating Hormone 5.682 uIu/ml (0.300-4.500)
[2024-11-12] MEDS ORDERED: traMADol HCL 50 MG TABLET PO PRN (22:38)
[2024-11-12] MEDS ORDERED: PROMETHAZINE 6.25 MG/50.25 ML BAG IV PRN (22:38)
[2024-11-12] MEDS ORDERED: ACETAMINOPHEN 325 MG TAB PO PRN (22:38)
[2024-11-12] MEDS: PIPERACILLIN/TAZOBACTAM 4.5 GM/100 ML BAG IV ONE (22:52)
[2024-11-12] MEDS: MIDODRINE HCL 2.5 MG TAB PO STA (22:52)
[2024-11-12 23:06] LABS: T4 Free Thyroxine 0.93 ng/dl (0.61-1.60)
[2024-11-13] MEDS: ALBUMIN 25% 25 GM/100 ML VIAL IV SCH (00:05)
[2024-11-13] MEDS ORDERED: ACETAMINOPHEN 500 MG TAB PO PRN (00:57)
--- NOTE | 2024-11-13 02:37 | CT Scan Report ---
EXAM: CT chest diagnostic wo con CLINICAL HISTORY: None TECHNIQUE: Contiguous axial images were obtained from the neck base through the upper abdomen without contrast. In addition, sagittal and coronal reconstructions were performed to potentially increase the sensitivity for the detection of disease. CT scan was performed according to ALARA (as low as reasonably achievable). COMPARISON: CT, 04/22/2024 04:34:06 [employer] FINDINGS: Multiple small thin walled cysts with paraseptal emphysema changes in bilateral upper lobes. Fibro-atelectatic bands in bilateral lower lobes. The central airways are patent. Minimal right pleural effusion. No pneumothorax is seen. Evaluation of the mediastinum and anna is limited due to the lack of intravenous contrast. No axillary or mediastinal adenopathy is identified. The thyroid is unremarkable. The heart, aorta, and pulmonary arteries are of normal size and configuration. Atherosclerotic wall calcification of arch and descending thoracic aorta. There are no appreciable coronary artery and aortic atherosclerotic calcifications. No pericardial effusion is identified. Sliding hiatus hernia. No aggressive appearing osseous lesions are identified. Visualized upper abdomen section shows ascites. IMPRESSION: 1. Multiple small thin walled cysts with paraseptal emphysema changes in bilateral upper lobes- Stable 2. Fibro-atelectatic bands in bilateral lower lobes- New finding 3. Minimal right pleural effusion. Compared with previous study there is reduction in amount of effusion. 4. Sliding hiatus hernia. 5. Visualized upper abdomen section shows ascites- Stable. Electronically signed by Omkar Dye 11-13-2024 02:37 AM
[2024-11-13 03:19] LABS: Adenovirus F 40/41 PCR Not Detected (NotDetected); Astrovirus PCR Not Detected (NotDetected); Campylobacter PCR Not Detected (NotDetected); Cryptosporidium PCR Not Detected (NotDetected); Cyclospora cayetanensis PCR Not Detected (NotDetected); Entamoeba histolytica PCR Not Detected (NotDetected); Enteroaggregative E.coli(EAEC) Not Detected (NotDetected); Enteropathogenic E.coli (EPEC) Not Detected (NotDetected); Enterotoxigenic E.coli (ETEC) Not Detected (NotDetected); Giardia lamblia PCR Not Detected (NotDetected); Norovirus GI/GII PCR Not Detected (NotDetected); Plesiomonas shigelloides PCR Not Detected (NotDetected); Rotavirus A PCR Not Detected (NotDetected); Salmonella PCR Not Detected (NotDetected); Sapovirus PCR Not Detected (NotDetected); Shiga-like Toxin E.coli (STEC) Not Detected (NotDetected); Shigella/Enteroinvasive E.coli Not Detected (NotDetected); Vibrio cholerae PCR Not Detected (NotDetected); Vibrio species PCR Not Detected (NotDetected); Yersinia enterocolitica PCR Not Detected (NotDetected)
--- NOTE | 2024-11-13 06:50 | Communication Note ---
Date of Service: November 13, 2024 Patient complaining of sore throat symptoms, coughing out junky yellow secretions as per RN. O2 sats [address] chest: 1. Multiple small thin walled cysts with paraseptal emphysema changes in bilateral upper lobes- Stable 2. Fibro-atelectatic bands in bilateral lower lobes- New finding 3. Minimal right pleural effusion. Compared with previous study there is reduction in amount of effusion. 4. Sliding hiatus hernia. 5. Visualized upper abdomen section shows ascites- Stable. AP Severe COVID-19 pneumonia Decadron Rx
[2024-11-13] MEDS: CHLORASEPTIC (PHENOL) 1.4% SOLN 180 ML BTL MT PRN (08:40)
[2024-11-13] MEDS: dexAMETHasone 6 MG in SYRINGE 0 ML IV SCH (08:41)
[2024-11-13] MEDS: NEPHROCAPS PO SCH (08:42)
[2024-11-13] MEDS: ADVANCED PROBIOTIC 625 MG CAPSULE PO SCH (08:42)
[2024-11-13] MEDS: AMIODARONE 200 MG TAB PO SCH (08:42)
[2024-11-13] MEDS: MIDODRINE HCL 2.5 MG TAB PO SCH (08:42)
[2024-11-13] MEDS: METOPROLOL SUCC 25MG EXT REL TAB PO SCH (08:42)
[2024-11-13 08:43] LABS: Basophils # (auto) 0.08 K/uL (0.00-0.20); Basophils % (auto) 1.2 %; Eosinophils # (auto) 0.14 K/uL (0.00-0.50); Hematocrit (blood only) 33.6 % (42.0-52.0); Hemoglobin 11.3 g/dl (14.0-18.0); Immature Granulocytes # (auto) 0.04 K/uL (0.01-0.20); Immature Granulocytes % (auto) 0.6 %; Lymphocytes # (auto) 0.95 K/uL (1.20-3.40); Lymphocytes % (auto) 13.7 %; Mean Corpuscular Hemoglobin 29.7 pg (25.0-34.0); Mean Corpuscular Hgb Conc 33.6 g/dL (32.0-36.0); Mean Corpuscular Volume 88.2 fL (80.0-100.0); Mean Platelet Volume 10.1 fL (9.4-12.4); Monocytes # (auto) 0.81 K/uL (0.11-0.59); Monocytes % (auto) 11.7 %; Neutrophils # (auto) 4.91 K/uL (1.40-6.50); Neutrophils % (auto) 70.8 %; Platelet Count 188 K/uL (130-400); RDW Coefficient of Variation 16.5 % (11.5-14.5); RDW Standard Deviation 51.4 fL (36.4-46.3); Red Blood Count 3.81 M/uL (4.70-6.10); White Blood Count 6.93 K/ul (4.8-10.8)
[2024-11-13] MEDS: PANTOprazole 40 MG TAB PO SCH (08:43)
[2024-11-13 08:58] LABS: BUN Creatinine Ratio 3.7 (10-20); Calcium 8.7 mg/dl (8.6-10.3); Creatinine Clr Calc Pharmacy 8.4 ml/min; Magnesium 1.8 mg/dl (1.7-2.4); Potassium 3.6 mmol/L (3.5-5.1)
[2024-11-13 09:00] LABS: INR 2.1 (0.9-1.1)
[2024-11-13 09:01] LABS: Estimated Average Glucose 137 mg/dl; Hemoglobin A1C 6.4 % (4.5-5.6)
--- NOTE | 2024-11-13 11:18 | Electrocardiogram Report ---
Test Reason : Blood Pressure : */* mmHG Vent. Rate : 89 BPM Atrial Rate : 89 BPM P-R Int : 214 ms QRS Dur : 142 ms QT Int : 456 ms P-R-T Axes : 42 -89 32 degrees QTcB Int : 554 ms Sinus rhythm with 1st degree A-V block Left axis deviation Left anterior fascicular block Right bundle branch block Inferior infarct (cited on or before 16-Oct-2024) When compared with ECG of 16-Oct-2024 13:30, Fusion complexes are no longer Present QRS duration has increased QT has lengthened Confirmed by Janine Burnett (Peri) on 11/13/2024 11:18:36 AM Referred By: REFERRED SELF Confirmed By: Janine Burnett
--- NOTE | 2024-11-13 12:32 | Nephrology Consultation ---
Date of Consultation November 13, 2024 Assessment & Plan (1) End stage renal disease: Currently on PD--Cycler with day fill with Icodextran. e/o Some volume depletion so will just do the Cycler at night--5 exchanges of 2.5 liters mixed 1.5% and 2.5%. Continue Midodrine. Nothing to suggest peritonitis here. has resp Symptoms and +ve Covid as the cause for Symptoms. if we find cloudy fluid during PD tonight will send for cell count/Stain and C/s. No major issues with electrolytes (2) Elevated lactic acid level: Related with severe Hypotension. trending down. No need to give more ivf. Do check again to see it has normalized. so will check in AM (3) Acute hypotension: BP is now better. given this will not aim for much UF tonight. (4) COVID-19: History of Present Illness Reason for Consultation: ESRD on PD now admitted with weakness and low BP + Covid. Attending Physician: Amy Shrestha MD History of Present Illness 79/M with ESRD on PD ( Son or ex does it---cycler with day fill --Dr Teena Galvan) PE/A-fib (early TBS) on Coumadin, hypertrophic cardiomyopathy, moderate TR, CAD, PVD, hypotension on midodrine, COPD/RLD as per records, esophageal achalasia as per records, cirrhosis, prostate cancer status post surgery, MGUS, chronic anemia (baseline hemoglobin 10-11), cognitive impairment, inclusion body myositis as per records, past tobacco abuse. Recently discharged 10/18/2024 following admission for sepsis secondary to dialysis associated peritonitis--e fecalis. Incidental finding of cirrhosis on imaging. Patient discharged on 3-week amoxicillin course and nystatin for fungal peritonitis prophylaxis. he came to hospital last night because he felt increasingly sick and weak over the last 2 days. No chest pain, no cough symptoms. Multiple Sick contact at personal care facility. Shortness of breath from weakness as per patient. Also has some cough with sputum and some Watery loose stools yesterday. Denies headache or abdominal pain. SBP 80s at facility as well as in ED. O2 sats dropping to 80s on exertion. Found to have Covid. CT chest and CXR shows mostly chornic findings. No PD last night. he really cannot tell me anything about his history. ROS--see HPI. other hernandez 12 systems reviewed and negative Physical Exam Physical Exam: GENERAL: Comfortable, pleasant,no respiratory distress NECK : Supple, no tenderness. No JVD CHEST : Decreased breath sounds, no tenderness HEART : RRR, systolic murmur ABDOMEN: Some distention, PD port noted--no Abnormal findings noted. EXTREMITIES : Trace LE swelling NEUROLOGIC : Coherent, but cannot tell answer to simple medical questions. Allergies Allergy/AdvReac Type Severity Reaction Status Date / Time No Known Allergies Allergy Verified 11/12/24 22:14 Home Medications Medication Instructions Recorded Confirmed Type amiodarone 200 mg tablet 200 mg PO DAILY 10/16/24 11/12/24 History metoprolol succinate 25 mg 25 mg PO DAILY 10/16/24 11/12/24 History tablet,extended release 24 hr midodrine 2.5 mg tablet 2.5 mg PO AMPM 10/16/24 11/12/24 History warfarin 2 mg tablet 2 mg PO DAILY 10/19/24 11/12/24 History docusate sodium 100 mg capsule 100 mg PO BID #60 caps 10/21/24 11/12/24 Rx polyethylene glycol 3350 17 gram 17 g PO DAILY PRN constipation #30 10/21/24 11/12/24 Rx oral powder packet (Miralax) ea Lactobacillus acidophilus 1 tab PO DAILY 11/12/24 11/12/24 History Renal Multivit W/1mg Or <Fa 1 tab PO DAILY 11/12/24 11/12/24 History acetaminophen 500 mg tablet 500 mg PO Q6H 11/12/24 11/12/24 History cholecalciferol (vitamin D3) 50 50 mcg PO DAILY 11/12/24 11/12/24 History mcg (2,000 unit) capsule (Vitamin D3) gentamicin 0.1 % topical cream 1 applic topical DAILY 11/12/24 11/12/24 History lanolin alcohols-mineral 1 applic topical UD PRN SKIN CARE 11/12/24 11/12/24 History oil-w.petrolatum-ceresin topical cream (Eucerin topical cream) maltodextrin 1 ea PO QAM PRN Constipation 11/12/24 11/12/24 History menthol 0.44 %-zinc oxide 20.6 % 1 applic topical DAILY 11/12/24 11/12/24 History topical ointment (Calmoseptine) metoprolol tartrate 25 mg tablet 25 mg PO DAILY PRN HR > 100 @ REST 11/12/24 11/12/24 History pantoprazole 40 mg tablet,delayed 40 mg PO DAILY 11/12/24 11/12/24 History release Patient History Medical History CAP (community acquired pneumonia) Hypotension ESRD on peritoneal dialysis Renal cyst 3.9 cm cystic lesion-L Paroxysmal A-fib listed in [facility] records CAD (coronary artery disease) PVD (peripheral vascular disease) Dysphagia Anemia Pulmonary nodule MGUS (monoclonal gammopathy of unknown significance) follows with [facility] heme/onc LBBB (left bundle branch block) Hearing deficit Surgical History History of appendectomy History of tooth extraction all teeth removed History of bilateral cataract extraction History of prostatectomy Family History Father Diabetes Other No family history of adverse response to anesthesia Social History Smoking Status: Former smoker Tobacco Type: Cigarettes Second Hand Exposure: No; Do You Dip or Chew Tobacco: No; Hx Alcohol Use: Yes Alcohol type: hard liquor Hx Substance Use: No Preferred Language: Georgian Communication Ability: Effective Timber Management Technician Required: No Beliefs That Will Affect Care: None Current Living Situation: Care Home Current Living Situation Comment: lives at facility Feels Safe at Home: Yes Assistive Devices: Denture - Upper, Denture - Lower, Hearing Aid - Bilateral and Walker Results & Data Vital Signs (Past 12 Hours) Vital Signs Temp Pulse Pulse Resp BP Pulse Ox O2 Del Method 11/13/24 11:50 37.5 C 92 H 19 107/67 90 Room Air 11/13/24 08:36 Room Air 11/13/24 08:10 37 C 111 H 17 103/65 95 Room Air 11/13/24 07:30 100 H 11/13/24 02:18 37.2 C 93 H 18 106/70 91 Room Air
--- NOTE | 2024-11-13 14:30 | Hospitalist Progress Note ---
Date of Service November 13, 2024 Assessment & Plan (1) Hypotension: Plan: 79-year-old male with PMH of PE/A-fib on Coumadin, hypertrophic CM, CAD, PVD, hypertension on midodrine, COPD/RLD, ESRD on PD, esophageal achalasia, cirrhosis, prostate cancer status post surgery, MGUS, chronic anemia [baseline hemoglobin of 10-11], cognitive impairment, inclusion body myositis, past tobacco abuse who was recently admitted last month for sepsis secondary to dialysis associated peritonitis/treated with antibiotic/completed course - presented this time with complaint of feeling sick and weak for over the last 2 days ago 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 He was noted to have SpO2 dropped to 80s and SBP in 70s at ED. He is being managed for the following: Infection due to COVID-19 virus Pneumonia due to above Severe sepsis POA: d/t covid 19 infection. RR and DC elevated at presentation. Lactate elevated, s/p iv albumin w/ improvement in lactate. Patient presents with feeling sick/weak, cough with brown sputum, 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 Respiratory BioFire positive for COVID-[address] chest with fibroatelectasis bands in bilateral lower lobes. Patient started on dexamethasone 11/13, continue Patient currently reports improvement in his shortness of breath, maintaining saturation on room air, encourage incentive spirometer, continue to monitor. f/u admitting blood culture. Hypotension ISO infection: Pt w/ chronic hypotension, takes midodrine. Drop in BP exacerbated likely iso infection. s/p albumin in ED, now improved. c/w midodrine. Troponin elevation: secondary to illness in the setting of chronic kidney dysfunction, history ESRD on PD. Pt denies chest pain. 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 ESRD on PD: Nephrology on board, appreciate help. Other chronic medical conditions: Continue with/resume home meds as and when able. hx PE/A-fib (early TBS) on Coumadin, INR therapeutic hypertrophic cardiomyopathy CAD/ PVD COPD/RLD as per records, not in acute exacerbation cirrhosis on imaging from past admission prostate cancer status post surgery Chronic anemia, hemoglobin better than baseline likely secondary to hemoconcentration cognitive impairment, patient mentating well inclusion body myositis as per records, patient to decide on steroid Rx recommendation from local neurologist following recent outpatient visit Hyperglycemia secondary to diabetes, hemoglobin A1c of 6.4 from last year Subclinical hypothyroidism , f/u TFT in 6 weeks past tobacco abuse. DVT prophylaxis. Coumadin INR goal between 2 and 3 Full code Patient's son Mr. Dominic Samson, contact #[phone]. Text document was generated using [employer] voice recognition software. It may contain grammatical or spelling errors. Kindly contact undersigned for clarification of any documentation item in question. Admission and Anticipated Discharge Date Admission Date: November 12, 2024 Subjective Patient was seen and examined at bedside. Patient was lying in bed, on room air, NAD, resting comfortably. Patient reports cough with brown sputum, reports eating okay and moving bowels okay. Denies abdominal pain. Patient reports feeling overall better. Physical Exam Physical Exam: GENERAL: Comfortable, pleasant, hard of hearing, no respiratory distress SKIN: Pallor, warm HEENT: Pale palpebral conjunctivae, no ptosis, moist buccal mucosa NECK : Supple, no tenderness CHEST : Decreased breath sounds, no tenderness HEART : RRR, systolic murmur ABDOMEN: Some distention, PD port noted EXTREMITIES : Minima LE swelling no LE tenderness, no other conspicuous deformities noted NEUROLOGIC : Coherent, no facial asymmetry, slightly hard of hearing, no other gross focality Results & Data Results & Data Vital Signs (Past 12 Hours) Vital Signs Temp Pulse Pulse Resp BP Pulse Ox O2 Del Method 11/13/24 13:03 92 H 11/13/24 11:50 37.5 C 92 H 19 107/67 90 Room Air 11/13/24 08:36 Room Air 11/13/24 08:10 37 C 111 H 17 103/65 95 Room Air 11/13/24 07:30 100 H 11/13/24 02:18 37.2 C 93 H 18 106/70 91 Room Air (1) Hypotension Hypotension type: hypotension due to hypovolemia Qualified Code(s): E86.1 - Hypovolemia
[2024-11-13] MEDS: WARFARIN SOD 2 MG TAB PO SCH (16:44)
[2024-11-14 06:06] LABS: Hematocrit (blood only) 28.7 % (42.0-52.0); Mean Corpuscular Hemoglobin 30.7 pg (25.0-34.0); Mean Corpuscular Hgb Conc 34.8 g/dL (32.0-36.0); Mean Platelet Volume 10.1 fL (9.4-12.4); Platelet Count 176 K/uL (130-400); RDW Coefficient of Variation 16.2 % (11.5-14.5); RDW Standard Deviation 51.9 fL (36.4-46.3); Red Blood Count 3.26 M/uL (4.70-6.10); White Blood Count 8.39 K/ul (4.8-10.8)
[2024-11-14 06:24] LABS: Calcium 8.4 mg/dl (8.6-10.3); Magnesium 1.8 mg/dl (1.7-2.4); Potassium 3.4 mmol/L (3.5-5.1)
[2024-11-14 06:34] LABS: BUN Creatinine Ratio 4.1 (10-20); Creatinine Clr Calc Pharmacy 8.1 ml/min
[2024-11-14] MEDS: DOXYCYCLINE HYCLATE 100 MG CAP PO SCH (10:10)
--- NOTE | 2024-11-14 11:19 | Dialysis Progress Note ---
Date of Service November 14, 2024 Assessment & Plan Admission and Anticipated Discharge Date Admission Date: November 12, 2024 Subjective Assessment & Plan (1) End stage renal disease: Currently on PD--Cycler with day fill with Icodextran. e/o Some volume depletion so will just do the Cycler at night--5 exchanges of 2.5 liters mixed 1.5% and 2.5%. Continue Midodrine. Nothing to suggest peritonitis here. has resp Symptoms and +ve Covid as the cause for Symptoms. No issues with PD last night. Will do same rx again tonight 2.5 liters fills 5 exchanges with mixed 2.5% and 1.5% for 12 hrs. (2) Elevated lactic acid level: Related with severe Hypotension. trending down. No need to give more ivf. Do check again to see if it has normalized. (3) Acute hypotension: BP is now better. given this will not aim for much UF tonight. (4) COVID-19: S--seen for peritoneal dialysis. had PD last night--no issues reported. fluid clear. UF was 932 ml Physical Exam Physical Exam: GENERAL: Comfortable, pleasant,no respiratory distress NECK : Supple, no tenderness. No JVD CHEST : Decreased breath sounds, no tenderness HEART : RRR, systolic murmur ABDOMEN: Some distention, PD port noted--no Abnormal findings noted. EXTREMITIES : Trace LE swelling NEUROLOGIC : Coherent, but cannot tell answer to simple medical questions. Results & Data Vital Signs (Past 12 Hours) Vital Signs Temp Pulse Pulse Resp BP Pulse Ox O2 Del Method 11/14/24 08:45 Room Air 11/14/24 08:28 36.4 C L 75 22 11/14/24 07:36 36.4 C L 75 22 106/65 96 Room Air 11/14/24 05:32 71 11/14/24 02:45 36.5 C 78 18 118/82 95 Room Air 11/14/24 00:22 36.5 C 80 18 108/69 95 Room Air
--- NOTE | 2024-11-14 15:58 | Hospitalist Progress Note ---
Date of Service November 14, 2024 Assessment & Plan (1) Hypotension: Plan: 79-year-old male with PMH of PE/A-fib on Coumadin, hypertrophic CM, CAD, PVD, hypertension on midodrine, COPD/RLD, ESRD on PD, esophageal achalasia, cirrhosis, prostate cancer status post surgery, MGUS, chronic anemia [baseline hemoglobin of 10-11], cognitive impairment, inclusion body myositis, past tobacco abuse who was recently admitted last month for sepsis secondary to dialysis associated peritonitis/treated with antibiotic/completed course - presented this time with complaint of feeling sick and weak for over the last 2 days ago 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 He was noted to have SpO2 dropped to 80s and SBP in 70s at ED. He is being managed for the following: Infection due to COVID-19 virus Pneumonia due to above Severe sepsis POA: d/t covid 19 infection. RR and [place] elevated at presentation. Lactate elevated, s/p iv albumin w/ improvement in lactate. Likely bronchitis: added doxy 11/14, continue. Patient presents with feeling sick/weak, cough with brown sputum, 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 Respiratory BioFire positive for COVID-[address] chest with fibroatelectasis bands in bilateral lower lobes. Patient started on dexamethasone 11/13, continue Patient currently reports improvement in his shortness of breath, maintaining saturation on room air, encourage incentive spirometer, continue to monitor. Reports cough w/ green yellow sputum, follow clinically. f/u admitting blood culture. Hypotension ISO infection: Pt w/ chronic hypotension, takes midodrine. Drop in BP exacerbated likely iso infection. s/p albumin in ED, now improved. c/w midodrine. Troponin elevation: secondary to illness in the setting of chronic kidney dysfunction, history ESRD on PD. Pt denies chest pain. 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 ESRD on PD: Nephrology on board, appreciate help. Other chronic medical conditions: Continue with/resume home meds as and when able. hx PE/A-fib (early TBS) on Coumadin, INR therapeutic hypertrophic cardiomyopathy CAD/ PVD COPD/RLD as per records, not in acute exacerbation cirrhosis on imaging from past admission prostate cancer status post surgery Chronic anemia, hemoglobin better than baseline likely secondary to hemoconcentration cognitive impairment, patient mentating well inclusion body myositis as per records, patient to decide on steroid Rx recommendation from local neurologist following recent outpatient visit Hyperglycemia secondary to diabetes, hemoglobin A1c of 6.4 from last year Subclinical hypothyroidism , f/u TFT in 6 weeks past tobacco abuse. DVT prophylaxis. Coumadin INR goal between 2 and 3 Full code Patient's son Mr. Dominic Samson, contact #[phone]. Text document was generated using [employer] voice recognition software. It may contain grammatical or spelling errors. Kindly contact undersigned for clarification of any documentation item in question. Admission and Anticipated Discharge Date Admission Date: November 12, 2024 Subjective Patient was seen and examined at bedside. Patient was lying in bed, on room air, NAD, resting comfortably. Patient reports cough with green - yellow sputum, reports eating okay and moving bowels okay. Denies abdominal pain. will add doxy for bronchitis. Patient reports feeling overall better. Physical Exam Physical Exam: GENERAL: Comfortable, pleasant, hard of hearing, no respiratory distress SKIN: Pallor, warm HEENT: Pale palpebral conjunctivae, no ptosis, moist buccal mucosa NECK : Supple, no tenderness CHEST : Decreased breath sounds, no tenderness HEART : RRR, systolic murmur ABDOMEN: Some distention, PD port noted EXTREMITIES : Minima LE swelling no LE tenderness, no other conspicuous deformities noted NEUROLOGIC : Coherent, no facial asymmetry, slightly hard of hearing, no other gross focality Results & Data Results & Data Vital Signs (Past 12 Hours) Vital Signs Temp Pulse Pulse Resp BP Pulse Ox O2 Del Method 11/14/24 12:59 71 11/14/24 11:36 36.5 C 69 18 123/73 96 Room Air 11/14/24 08:45 Room Air 11/14/24 08:28 36.4 C L 75 22 11/14/24 07:36 36.4 C L 75 22 106/65 96 Room Air 11/14/24 05:32 71 (1) Hypotension Hypotension type: hypotension due to hypovolemia Qualified Code(s): E86.1 - Hypovolemia
[2024-11-15 08:20] LABS: Calcium 8.2 mg/dl (8.6-10.3); Creatinine Clr Calc Pharmacy 8.3 ml/min; Potassium 3.2 mmol/L (3.5-5.1)
[2024-11-15 08:22] LABS: INR 2.5 (0.9-1.1)
[2024-11-15 10:51] VITALS: BP 127/76; PULSE 62; RESP 20; TEMP 97.3; O2SAT 95
--- NOTE | 2024-11-15 12:46 | Discharge Summary ---
Date of Service November 15, 2024 Admission HPI Per Admitting Provider History obtained from patient and records. Medical history significant for PE/A-fib (early TBS) on Coumadin, hypertrophic cardiomyopathy, moderate TR, CAD, PVD, hypotension on midodrine, COPD/RLD as per records, ESRD on PD, esophageal achalasia as per records, cirrhosis, prostate cancer status post surgery, MGUS, chronic anemia (baseline hemoglobin 10-11), cognitive impairment, inclusion body myositis as per records, past tobacco abuse. Recent confinement last month for sepsis secondary to dialysis associated peritonitis. Incidental finding of cirrhosis on imaging. Enterococcus on CS. Patient discharged on 3-week amoxicillin course and nystatin for fungal peritonitis prophylaxis. Patient felt increasingly sick and weak over the last 2 days. No chest pain, no cough symptoms. Sick contact at personal care facility. Shortness of breath from weakness as per patient. No cough symptoms. Watery loose stools yesterday. Denies headache or abdominal pain. SBP 80s at facility. O2 sats dropping to 80s on exertion. Patient brought to ER for evaluation. Lowest SBP of 70s documented at the ER. Zosyn administered at the ER. 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 Admission Exam Per Admitting Provider GENERAL: Comfortable, pleasant, hard of hearing, no respiratory distress SKIN: Pallor, warm HEENT: Pale palpebral conjunctivae, no ptosis, dry buccal mucosa NECK : Supple, no tenderness CHEST : Decreased breath sounds, no tenderness HEART : RRR, systolic murmur ABDOMEN: Some distention, PD port noted EXTREMITIES : Minima LE swelling no LE tenderness, no other conspicuous deformities noted NEUROLOGIC : Coherent, no facial asymmetry, slightly hard of hearing, no other gross focality Principal Diagnosis Infection due to COVID-19 virus Pneumonia due to above Severe sepsis POA Hypotension ISO infection Discharge Exam GENERAL: Comfortable, pleasant, hard of hearing, no respiratory distress SKIN: Pallor, warm HEENT: Pale palpebral conjunctivae, no ptosis, moist buccal mucosa NECK : Supple, no tenderness CHEST : Decreased breath sounds, no tenderness HEART : RRR, systolic murmur ABDOMEN: Some distention, PD port noted EXTREMITIES : Minima LE swelling no LE tenderness, no other conspicuous deformities noted NEUROLOGIC : Coherent, no facial asymmetry, slightly hard of hearing, no other gross focality Discharge Data Allergies Allergy/AdvReac Type Severity Reaction Status Date / Time No Known Allergies Allergy Verified 11/12/24 22:14 Consultations 11/12/24 21:43 ED Decision to Admit Stat 11/12/24 23:37 Consult Nephrology Routine Ordered Studies 11/12/24 23:16 CT chest diagnostic wo con Stat Hospital Course (1) Hypotension: 79-year-old male with PMH of PE/A-fib on Coumadin, hypertrophic CM, CAD, PVD, hypertension on midodrine, COPD/RLD, ESRD on PD, esophageal achalasia, cirrhosis, prostate cancer status post surgery, MGUS, chronic anemia [baseline hemoglobin of 10-11], cognitive impairment, inclusion body myositis, past tobacco abuse who was recently admitted last month for sepsis secondary to dialysis associated peritonitis/treated with antibiotic/completed course - presented this time with complaint of feeling sick and weak for over the last 2 days ago 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 He was noted to have SpO2 dropped to 80s and SBP in 70s at ED. He was managed for the following: Infection due to COVID-19 virus Pneumonia due to above Severe sepsis POA: d/t covid 19 infection. RR and [place] elevated at presentation. Lactate elevated, s/p iv albumin w/ improvement in lactate. Likely bronchitis: added doxy 11/14, continue. Patient presents with feeling sick/weak, cough with brown sputum, 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 Respiratory BioFire positive for COVID-[address] chest with fibroatelectasis bands in bilateral lower lobes. Patient started on dexamethasone 11/13, off of O2 for 2 days, dc steroid. Patient currently reports improvement in his shortness of breath, maintaining saturation on room air, encourage incentive spirometer, continue to monitor. Reports cough, sputum is clearing up per pt. f/u admitting blood culture. no growth so far. DC on doxy course. Hypotension ISO infection: Pt w/ chronic hypotension, takes midodrine. Drop in BP exacerbated likely iso infection. s/p albumin in ED, now improved. c/w midodrine. BP back to baseline Troponin elevation: secondary to illness in the setting of chronic kidney dysfunction, history ESRD on PD. Pt denies chest pain. 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 No more diarrhea per pt. ESRD on PD: Nephrology on board, appreciate help. Other chronic medical conditions: Continue with/resume home meds as and when able. hx PE/A-fib (early TBS) on Coumadin, INR therapeutic hypertrophic cardiomyopathy CAD/ PVD COPD/RLD as per records, not in acute exacerbation cirrhosis on imaging from past admission prostate cancer status post surgery Chronic anemia, hemoglobin better than baseline likely secondary to hemoconcentration cognitive impairment, patient mentating well inclusion body myositis as per records, patient to decide on steroid Rx recommendation from local neurologist following recent outpatient visit Hyperglycemia secondary to diabetes, hemoglobin A1c of 6.4 from last year Subclinical hypothyroidism , f/u TFT in 6 weeks past tobacco abuse. DVT prophylaxis. Coumadin INR goal between 2 and 3 Full code Pt's ex chava updated 11/13 and 11/15 (w/ dc instructions). Patient is being discharged back to [facility] with following instructions at the point of discharge: Follow-up with your primary care physician within a week time and likely you will need labs CBC/CMP/magnesium/phosphorus. You were diagnosed with COVID - 19 on 11/12/2024, maintain isolation for 5 days (from diagnosis) followed by wearing masks around people for next 5 days. You will be treated with doxycycline for possible bronchitis. Take your medications as prescribed, continue with your peritoneal dialysis as prior. Please make sure that you are able to get your medications today by calling your pharmacy before you leave the hospital so that your treatment continuity is not broken. Text document was generated using [employer] voice recognition software. It may contain grammatical or spelling errors. Kindly contact undersigned for clarification of any documentation item in question. Home Health Attestation I certify that this patient is under my care and that I, or a physicians court assistant working with me, had a face to-face encounter that meets the home health [id number] encounter requirements with this patient. The encounter with the patient was in whole, or in part, for the following medical condition, which is the primary reason for home health care (list medic al condition): I certify that, based on my findings, the following services are medically necessary home health services: My clinical findings support the need for the above services because: Further, I certify that my clinical findings support that this patient is homebound (i.e. absences from home require considerable and taxing effort and are for medical reasons or hinduism services or infrequently or of short duration when for other reasons) because: Certification for Home Health Services: Based on the above findings, I certify that this patient is confined to the home and needs intermittent senior care care, physical therapy and/or speech therapy or continues to need occupational therapy. The patient is under my care, and I have initiated the establishment of the plan of care. This patient will be followed by a physician who will periodically review the plan of care. Total Time Total Time Spent Total Time Spent (In Minutes): 35 Discharge Plan Discharge Items Patient Disposition: Personal Half-Way Reason For Visit: HYPOTENSION, COVID Discharge Diagnosis: Infection due to COVID-19 virus Pneumonia due to above Severe sepsis POA Hypotension ISO infection Activity: Resume your previous activity Non-emergency contact: Primary Care Provider Call non-emergency contact if: you have any medication questions Follow-up/Referrals: [facility] [Primary Care Provider] - Diet: Dialysis Renal and Lactose Intolerant Diet Texture: Easy to Chew Addtl Attending Provider Instructions: Follow-up with your primary care physician within a week time and likely you will need labs CBC/CMP/magnesium/phosphorus. You were diagnosed with COVID - 19 on 11/12/2024, maintain isolation for 5 days (from diagnosis) followed by wearing masks around people for next 5 days. You will be treated with doxycycline for possible bronchitis. Take your medications as prescribed, continue with your peritoneal dialysis as prior. Please make sure that you are able to get your medications today by calling your pharmacy before you leave the hospital so that your treatment continuity is not broken. Pending Studies at Discharge: No Stand-Alone Forms: [employer], Smoking Cessation Skilled Items Patient informed of condition?: Yes DNR: No Discharge Level of Care: Other Communicable Disease: Yes Discharge Prognosis: Stable Lines: None Urinary Catheter: No Medications and DC Order Prescriptions: New doxycycline hyclate 100 mg Capsule 100 mg PO BID 6 Days Qty: 12 0RF Continued amiodarone 200 mg tablet 200 mg PO DAILY midodrine 2.5 mg tablet 2.5 mg PO AMPM Rx Instructions: HOLD FOR SBP >120 metoprolol succinate 25 mg tablet extended release 24 hr 25 mg PO DAILY Rx Instructions: HOLD IF SBP IS < 100 OR HR < 50 warfarin 2 mg Tablet 2 mg PO DAILY polyethylene glycol 3350 [Miralax] 17 gram Powder In Packet 17 g PO DAILY PRN (Reason: constipation) Qty: 30 0RF Rx Instructions: 1 packet daily as needed for constipation docusate sodium 100 mg Capsule 100 mg PO BID Qty: 60 0RF pantoprazole 40 mg Tablet,Delayed Release (Dr/Ec) 40 mg PO DAILY Lactobacillus acidophilus Tablet,Chewable 1 tab PO DAILY metoprolol tartrate 25 mg Tablet 25 mg PO DAILY PRN (Reason: HR > 100 @ REST) cholecalciferol (vitamin D3) [Vitamin D3] 50 mcg (2,000 unit) Capsule 50 mcg PO DAILY Renal Multivit W/1mg Or <Fa 1 tab PO DAILY acetaminophen 500 mg Tablet 500 mg PO Q6H menthol-zinc oxide [Calmoseptine] 0.44-20.6 % Ointment 1 applic TOPICAL DAILY Rx Instructions: APPLY THIN FILM TO PRESSURE ULCER FOR SKIN IRRITATION gentamicin 0.1 % Cream 1 applic TOPICAL DAILY Rx Instructions: APPLY SMALL AMOUNT TO SKIN EVERY DAY TO PD CATHETER INSERTION SITE FOR PROPHYLAXIS Fiber Powder Powder 1 ea PO QAM PRN (Reason: Constipation) Rx Instructions: DOSE = 4 GM Eucerin Cream 1 applic TOPICAL UD PRN (Reason: SKIN CARE) Rx Instructions: APPLY TO SKIN AFTER SHOWERS Discharge Orders: Discharge Order (Routine); Ordered 11/15/24 Ordered By: Amy Abrams/Other Patient Handouts: Prediabetes, 5 Steps for Eating Healthier Admission Data Admit Date/Time: 11/12/24 22:36 Attending Provider: Amy Shrestha Admit Provider: Frank Snow Primary Care Provider: [facility] Other Providers: Frank Snow; Teena Galvan; Crow Meeks; Travis Martin; Katy Tristan; Janine Robb; [facility]PR[facility]
--- NOTE | 2024-11-15 13:46 | Nephrology Progress Note ---
Date of Service November 15, 2024 Assessment & Plan (1) End stage renal disease: Plan: for d/c today >> resume regular OP PD prescription Continue Midodrine. Nothing to suggest peritonitis here. . No major issues with electrolytes except K 3.2 > at home he drinks low sodium V8 daily so that should improve K after d/c I will follow up with pt in PD clinic next month; he will also have labs before that already scheduled appt of which his family is aware Care coordinated w/ Dr Shrestha regarding d/c dispo, follow up care, d/c medications triny midodrine; we are in agreemnt. (2) Elevated lactic acid level: Plan: Related with severe Hypotension. trending down. No need to give more ivf. notably has not normalized this or previous admission; given clinical improvement woudl not pursue as today's level of 2.2 close enough to normal (3) Acute hypotension: Plan: resolved; continue low dose midodrine at d/c (4) COVID-19: Admission and Anticipated Discharge Date Admission Date: November 12, 2024 Subjective seen and evaluated early afternoon; feel sstronger, eating better; not sob; no edema; PD going well Review of Systems 2 Review of Systems: All systems reviewed & are unremarkable except as noted in Subjective Physical Exam 2 Constitutional: well developed and well nourished Eyes: EOM intact bilaterally ENMT: Mouth: + dry oral mucous membranes Neck: no nuchal rigidity Respiratory: normal respiratory effort and able to speak in complete sentences; no cough Gastrointestinal (Abdomen): Inspection/Auscultation: abdomen normal to inspection (PD catheter in place) Percussion/Palpation: abdomen soft; abdomen nontender Musculoskeletal: Extremities: strength 5/5 throughout Skin: no rashes, warm and dry Neurologic: ivory, fluent speech, no tremor Results & Data Vital Signs (Past 12 Hours) Vital Signs Temp Pulse Pulse Resp BP Pulse Ox O2 Del Method 11/15/24 12:56 36.3 C L 62 20 127/76 95 11/15/24 10:48 36.3 C L 62 20 127/76 95 Room Air 11/15/24 09:05 36.6 C 67 16 11/15/24 09:00 36.6 C 67 16 125/75 98 Room Air 11/15/24 08:58 Room Air 11/15/24 08:41 60 01/27/25 05:48 61 11/15/24 03:43 36.5 C 65 18 120/69 95 Room Air Laboratory Results 11/14/24 05:43 11/15/24 07:24
[2024-11-15] MEDS: POTASSIUM CHLORIDE CRTAB 20 MEQ TABCR PO STA (13:50)
== END 2024-11-15 14:53 | disposition home or self-care (01) | DRG 871 ==
LOC: ED 17:52 → 2S 22:36 → 2E 11-15 08:09

== ENCOUNTER 2024-11-18 23:43 | Inpatient (IN) ==
--- NOTE | 2024-11-18 23:58 | Emergency Department Note ---
Impression & Plan Generalized weakness, Accident due to mechanical fall without injury, Hypokalemia, Hyponatremia, CKD (chronic kidney disease) ED Provider Note ED Provider Note NAME: JIGNESH BIRD AGE:79 SEX: Male : 1945 ARRIVES VIA: Private vehicle INFORMANT: Patient ED PROVIDER(s): Gini Wolf DO CHIEF COMPLAINT: Fall HPI: This is a 79-year-old brought in by EMS from [facility] following a fall. Patient states he tripped and fell landing on his left side. Denies striking his head or losing consciousness. Denies any concern for pain or injury. Staff there was concern as he has had weakness, nausea, and was recently hospitalized with COVID. Patient with chronic kidney disease and does nightly peritoneal dialysis. Patient states he does feel slightly short of breath and does have a cough. He states he feels he is doing well recovering from COVID. He is upset that he was transferred to the emergency department as he states he feels fine. Patient is a poor historian, cannot provide much details regarding the events tonight or his past medical history. PAST MEDICAL HISTORY:See Below PAST SURGICAL HISTORY:See Below FAMILY HISTORY:See Below SOCIAL HISTORY:See Below HOME MEDICATIONS:See Below ALLERGIES:See Below VITALS:See Below PHYSICAL EXAMINATION: GENERAL: alert, well appearing, well nourished, no distress, non-toxic HEAD: nc/at, no evidence of facial trauma EYE EXAM: normal conjunctiva, PERRL and EOM's grossly intact OROPHARYNX: no exudate, no erythema, lips, buccal mucosa, and tongue normal and mucous membranes are moist NECK: supple, no nuchal rigidity, no adenopathy, non-tender LUNGS: Clear to auscultation. Normal chest wall mechanics, no w/r/r HEART: no murmurs, S1 normal and S2 normal ABDOMEN: abdomen soft, non-tender, normo-active bowel sounds, no masses, no rebound or guarding. PD catheter noted in the abdomen. BACK: Back is symmetrical on inspection and there is no deformity, no midline tenderness, no CVA tenderness. No evidence of trauma SKIN: no rashes, petechiae, orbruising UPPER EXTREMITIES: upper extremities are grossly normal. FROM, nml pulses b/l. No evidence of trauma or deformity. LOWER EXTREMITIES: No pitting edema. FROM, nml pulses b/l. No evidence of trauma or deformity. NEURO EXAM: Normal sensorium, cranial nerves II-XII grossly intact, normal speech, no facial droop,nogross weakness of arms, no gross weakness of legs. Gross sensation intact. No ataxia. Vital Signs: reviewed and remarkable Differential Diagnosis: dehydration, stroke, anemia, hypoglycemia, hyponatremia, hypernatremia, urinary tract infection, pneumonia, bronchitis, sepsis, gastroenteritis, metabolic abnormalities, as well as others were considered MEDICAL DECISION MAKING: This is a 79 yo male who presents to the ER due to increased weakness, fall, decreased appetite, and recent COVD. He was afebrile and VS stable. Labs drawn and sent, IV established, EKG and xrays performed and interpreted at bedside, and patient placed on telemetry. He was started on IVF and sent for CT head/neck. Patient with several electrolyte abnormalities and he was started on IV repletion. Imaging reassuring. Son concerned for decline since going back to personal care after being admitted with COVID. I have a low suspicion for additional occult traumatic injury. Due to concern for weakness and decreased intake case discussed with the hospitalist team for additional evaluation and mgmt. Consultation(s): 0320: Discussed with Dr. Lockett, [facility] hospitalist team, for additional evaluation and mgmt. ER Treatment Provided: See below 0030: Discussed with son who is now at bedside. Son goes to [facility] every night to perform his peritoneal dialysis. Son states he sent his dad into the bathroom to weigh himself first which is their routine. He states he heard his dad fall in the bathroom but did not see it. When he got to his that he was laying on his side trying to hold onto a grab bar. He was awake however seem to "dazed and spacey". He called the med techs at the facility to help get him back up. They let him sit for a while first but then when they stood him up even with the use of his walker he needed additional assistance. They got him back into bed. He denied hitting his head and there did not appear to be any loss of consciousness. They started his peritoneal dialysis. His son said that he seemed slightly dazed for a while after this. He said he thought he would recover once he was back in bed. His son called the facility to check on him an hour and 1/2 to 2 hours later and staff reported that he was still kind of "dazed". He states his dad can answer questions of orientation appropriately however seems slow and dazed compared to normal. Son states no recent change in medications. Son feels he has had a decrease in his appetite and had very little to eat today and has had worsening weakness over the last several days as well. Diagnostics Interpreted By Me: -ECG: Normal sinus at 85, leftward axis, right bundle branch block, no acute ST/T wave changes -Cardiac Monitoring: An order was placed for continuous cardiac monitoring. The monitor shows a rate of 88 with normal sinus rhythm. -Laboratory studies: As stated above and show below. -Imaging studies: X-ray Chest: A single view study of the chest was reviewed and was negative for cardiomegaly, focal infiltrate, effusion, pulmonary edema, or wide mediastinum. Triage Nursing Note Reviewed Prior/Outside Records Reviewed Past Med/Surg History Problem List (Updated 11/21/24 @ 19:02 by Gini Wolf, ) CKD (chronic kidney disease) (Acute) Hyponatremia (Acute) Hypokalemia (Acute) Peritoneal dialysis status Encephalopathy Accident due to mechanical fall without injury (Acute) Generalized weakness (Acute) Elevated troponin (Acute) Elevated lactic acid level (Acute) Acute hypotension (Acute) COVID-19 (Acute) Constipation Enterococcus faecalis infection End stage renal disease Peritonitis due to infected peritoneal dialysis catheter Pleural effusion Dialysis-associated peritonitis (Acute) Severe sepsis (Acute) Acute on chronic anemia Pneumoperitoneum Hypothyroid Elevated troponin I level Hypotension Atrial flutter with rapid ventricular response Hypotension Atrial fibrillation with RVR (Acute) Anticoagulant long-term use (Acute) Bright red rectal bleeding (Acute) Bifascicular block Hypertrophic cardiomyopathy Atrial flutter, paroxysmal Acute dyspnea (Acute) Atrial fibrillation with rapid ventricular response Bilateral pulmonary embolism (Acute) Bilateral pulmonary embolism Encounter for pre-operative examination Hyperkalemia Weakness (Acute) Hyperkalemia (Acute) Lab test negative for COVID-19 virus (Acute) Prostate cancer s/p prostatectomy Tobacco use Quit 03/2023 HTN (hypertension) HLD (hyperlipidemia) CKD (chronic kidney disease), stage V (Acute) Medical History CAP (community acquired pneumonia) Hypotension ESRD on peritoneal dialysis Renal cyst 3.9 cm cystic lesion-L Paroxysmal A-fib listed in [facility] records CAD (coronary artery disease) PVD (peripheral vascular disease) Dysphagia Anemia Pulmonary nodule MGUS (monoclonal gammopathy of unknown significance) follows with [facility] heme/onc LBBB (left bundle branch block) Hearing deficit Surgical History History of appendectomy History of tooth extraction all teeth removed History of bilateral cataract extraction History of prostatectomy Family History Father Diabetes Other No family history of adverse response to anesthesia Social History Smoking Status: Former smoker Tobacco Type: Cigarettes Second Hand Exposure: No; Do You Dip or Chew Tobacco: No; Hx Alcohol Use: No Hx Substance Use: No Preferred Language: Yoruba Communication Ability: Effective Sports Equipment Supervisor Required: No Beliefs That Will Affect Care: None Current Living Situation: Custodial Current Living Situation Comment: lives at facility Feels Safe at Home: Yes Assistive Devices: Walker Allergies Allergies Allergy/AdvReac Type Severity Reaction Status Date / Time No Known Allergies Allergy Verified 11/12/24 22:14 Home Meds Home Medications Medication Instructions Recorded Confirmed amiodarone 200 mg tablet 200 mg PO DAILY 10/16/24 11/19/24 metoprolol succinate 25 mg 25 mg PO DAILY 10/16/24 11/19/24 tablet,extended release 24 hr midodrine 2.5 mg tablet 2.5 mg PO AMPM 10/16/24 11/19/24 warfarin 2 mg tablet 2 mg PO DAILY 10/19/24 11/19/24 Lactobacillus acidophilus 1 tab PO DAILY 11/12/24 11/19/24 Renal Multivit W/1mg Or <Fa 1 tab PO DAILY 11/12/24 11/19/24 acetaminophen 500 mg tablet 500 mg PO Q6H 11/12/24 11/19/24 cholecalciferol (vitamin D3) 50 50 mcg PO DAILY 11/12/24 11/19/24 mcg (2,000 unit) capsule (Vitamin D3) gentamicin 0.1 % topical cream 1 applic topical DAILY 11/12/24 11/19/24 lanolin alcohols-mineral 1 applic topical UD PRN SKIN CARE 11/12/24 11/19/24 oil-w.petrolatum-ceresin topical cream (Eucerin topical cream) maltodextrin 1 ea PO QAM PRN Constipation 11/12/24 11/19/24 menthol 0.44 %-zinc oxide 20.6 % 1 applic topical DAILY 11/12/24 11/19/24 topical ointment (Calmoseptine) metoprolol tartrate 25 mg tablet 25 mg PO DAILY PRN HR > 100 @ REST 11/12/24 11/19/24 pantoprazole 40 mg tablet,delayed 40 mg PO DAILY 11/12/24 11/19/24 release Previous Rx's Medication Instructions Recorded docusate sodium 100 mg capsule 100 mg PO BID #60 caps 10/21/24 polyethylene glycol 3350 17 gram 17 g PO DAILY PRN constipation #30 10/21/24 oral powder packet (Miralax) ea doxycycline hyclate 100 mg capsule 100 mg PO BID 6 days #12 caps 11/15/24 Results & Data (ED) Vital Signs Vital Signs - 24 hr 11/19/24 00:03 11/19/24 00:03 11/19/24 00:20 Temperature 36.6 C Temperature Source Oral Pulse Rate 85 83 Pulse Rate [Right Finger] 83 Pulse Rhythm [Right Finger] Regular Pulse Strength [Right Finger] Normal Respiratory Rate 35 H 35 H Respiratory Effort / Characteristics Non-Labored Spontaneous Non-Labored Spontaneous Respiratory Depth Normal Normal Respiratory Pattern Regular Regular Blood Pressure 90/43 L Blood Pressure [Right Arm] 108/76 Blood Pressure Mean 58 Blood Pressure Mean [Right Arm] 86 Blood Pressure Position Lying Blood Pressure Position [Right Arm] Lying Pulse Oximetry 94 94 Oxygen Delivery Method Room Air Room Air Sepsis Recent Fever Within 48 Hours Yes Sepsis New/Unexplained Change in Mental Status Yes Sepsis Action Taken by Nursing Physician Notified 11/19/24 02:00 11/19/24 03:14 Temperature Temperature Source Pulse Rate Pulse Rate [Right Finger] 68 71 Pulse Rhythm [Right Finger] Regular Regular Pulse Strength [Right Finger] Normal Normal Respiratory Rate 24 23 Respiratory Effort / Characteristics Non-Labored Spontaneous Non-Labored Spontaneous Respiratory Depth Normal Normal Respiratory Pattern Regular Regular Blood Pressure Blood Pressure [Right Arm] 104/64 104/64 Blood Pressure Mean Blood Pressure Mean [Right Arm] 77 77 Blood Pressure Position Blood Pressure Position [Right Arm] Lying Lying Pulse Oximetry 94 94 Oxygen Delivery Method Room Air Room Air Sepsis Recent Fever Within 48 Hours Sepsis New/Unexplained Change in Mental Status Sepsis Action Taken by Nursing Laboratory Data 11/21/24 06:03 11/21/24 06:03 Lab Results 11/18/24 Range/Units 23:55 WBC 13.29 H (4.8-10.8) K/ul RBC 4.45 L (4.70-6.10) M/uL Hgb 13.3 L (14.0-18.0) g/dl Hct 38.9 L (42.0-52.0) % MCV 87.4 (80.0-100.0) fL MCH 29.9 (25.0-34.0) pg MCHC 34.2 (32.0-36.0) g/dL RDW Std Deviation 50.7 H (36.4-46.3) fL RDW Coeff of Maureen 16.2 H (11.5-14.5) % Plt Count 195 (130-400) K/uL MPV 10.7 (9.4-12.4) fL Immature Gran % (Auto) 0.9 % Neut % (Auto) 86.2 % Lymph % (Auto) 5.7 % Collier % (Auto) 6.9 % Eos % (Auto) 0.1 % Baso % (Auto) 0.2 % Neut # (Auto) 11.45 H (1.40-6.50) K/uL Lymph # (Auto) 0.76 L (1.20-3.40) K/uL Collier # (Auto) 0.92 H (0.11-0.59) K/uL Eos # (Auto) 0.01 (0.00-0.50) K/uL Baso # (Auto) 0.03 (0.00-0.20) K/uL Immature Gran # (Auto) 0.12 (0.01-0.20) K/uL PT 22.7 H (9.0-12.0) Seconds INR 2.2 H (0.9-1.1) Sodium 134 L (136-145) mmol/L Potassium 3.3 L (3.5-5.1) mmol/L Chloride 93 L (98-107) mmol/L Carbon Dioxide 27 (21-32) mmol/L Anion Gap 14 H (3-11) BUN 34 H (6-23) mg/dl Creatinine 7.29 H* (0.6-1.4) mg/dl Est Cr Clr Drug Dosing 9.2 ml/min eGFR 7.10 BUN/Creatinine Ratio 4.7 L (10-20) Glucose 191 H (70-99(Fasting)) mg/dl Calcium 8.2 L (8.6-10.3) mg/dl Magnesium 1.4 L (1.7-2.4) mg/dl Total Bilirubin 0.6 (0.2-1.0) mg/dl AST 34 (13-39) U/L ALT 52 (7-52) U/L Alkaline Phosphatase 82 (34-104) U/L Total Protein 6.7 (6.0-8.3) gm/dl Albumin 3.4 (3.4-5.0) gm/dl Globulin 3.3 (2.5-4.0) gm/dl Albumin/Globulin Ratio 1.0 (0.9-2) Lipase 96 H (11-82) U/L Administered Medications Acetaminophen (Acetaminophen 500 Mg Tab) 500 mg PO Q6H PRN PRN Reason: fever/pain Stop: 12/19/24 03:54 Last Admin: 11/21/24 15:33 Dose: 500 mg Documented By: [facility] Admin: 11/20/24 12:24 Dose: 500 mg Documented By: [facility] Admin: 11/19/24 16:53 Dose: 500 mg Documented By: [facility] Amiodarone HCl (Amiodarone 200 Mg Tab) 200 mg PO DAILY [facility] Stop: 12/19/24 08:59 Last Admin: 11/21/24 07:58 Dose: 200 mg Documented By: [facility] Admin: 11/20/24 08:00 Dose: 200 mg Documented By: [facility] Admin: 11/19/24 08:23 Dose: 200 mg Documented By: [facility] Docusate Sodium (Docusate Sodium 100 Mg Cap) 100 mg PO BID [facility] Stop: 12/19/24 08:59 Last Admin: 11/21/24 07:59 Dose: Not Given Documented By: [facility] Admin: 11/20/24 21:36 Dose: 100 mg Documented By: Admin: 11/20/24 08:53 Dose: 100 mg Documented By: [facility] Admin: 11/19/24 20:43 Dose: 100 mg Documented By: Admin: 11/19/24 09:44 Dose: 100 mg Documented By: CHIQUITA Doxycycline Hyclate (Doxycycline Hyclate 100 Mg Cap) 100 mg PO BID JULIANNA Stop: 11/24/24 08:59 Last Admin: 11/21/24 07:58 Dose: 100 mg Documented By: Admin: 11/20/24 21:35 Dose: 100 mg Documented By: Admin: 11/20/24 08:00 Dose: 100 mg Documented By: Admin: 11/19/24 20:43 Dose: 100 mg Documented By: Admin: 11/19/24 08:23 Dose: 100 mg Documented By: CHIQUITA Guaifenesin/Dextromethorphan (Guaifenesin/Dextrom Syrup 100mg/10mg 5ml Udc) 5 ml PO Q6H PRN PRN Reason: Cough Stop: 12/20/24 22:05 Last Admin: 11/21/24 07:52 Dose: 5 ml Documented By: Admin: 11/20/24 22:53 Dose: 5 ml Documented By: DARIN Piperacillin Sod/Tazobactam Sod (Zosyn) 4.5 gm in 100 mls @ 25 mls/hr IV Q12H JULIANNA; Protocol Stop: 11/24/24 15:59 Last Admin: 11/21/24 15:43 Dose: 25 mls/hr Documented By: Infusion: 11/21/24 08:10 Dose: Infused Documented By: Admin: 11/21/24 04:45 Dose: 25 mls/hr Documented By: Infusion: 11/20/24 21:15 Dose: Infused Documented By: Admin: 11/20/24 17:15 Dose: 25 mls/hr Documented By: Infusion: 11/20/24 09:35 Dose: Infused Documented By: Admin: 11/20/24 05:29 Dose: 25 mls/hr Documented By: Infusion: 11/19/24 20:41 Dose: Infused Documented By: Admin: 11/19/24 16:40 Dose: 25 mls/hr Documented By: CHIQUITA Lactobacillus Acidophilus (Advanced Probiotic 625 Mg Capsule) 1,250 mg PO DAILY JULIANNA Stop: 12/19/24 08:59 Last Admin: 11/21/24 07:57 Dose: 1,250 mg Documented By: Admin: 11/20/24 08:00 Dose: 1,250 mg Documented By: [facility] Admin: 11/19/24 08:22 Dose: 1,250 mg Documented By: CHIQUITA Levalbuterol HCl (Levalbuterol 1.25 Mg/3 Ml Neb) 1.25 mg NEB Q4H PRN PRN Reason: Shortness Of Breath Or Wheezin Stop: 12/20/24 22:05 Last Admin: 11/21/24 16:08 Dose: 1.25 mg Documented By: Admin: 11/20/24 22:43 Dose: 1.25 mg Documented By: WON Lidocaine (Lidocaine 5% 1 Patch) 1 patch TD QAM [facility] Stop: 12/20/24 16:44 Last Admin: 11/21/24 07:56 Dose: 1 patch Documented By: [facility] Admin: 11/20/24 17:18 Dose: Not Given Documented By: CHIQUITA Metoprolol Succinate (Metoprolol Succ 25mg Ext Rel Tab) 25 mg PO DAILY [facility] Stop: 12/20/24 08:59 Last Admin: 11/21/24 07:57 Dose: 25 mg Documented By: [facility] Admin: 11/20/24 07:59 Dose: 25 mg Documented By: CHIQUITA Midodrine (Midodrine Hcl 2.5 Mg Tab) 2.5 mg PO TID@0800,1200,1700 [facility] Stop: 12/19/24 07:59 Last Admin: 11/21/24 17:45 Dose: 2.5 mg Documented By: Admin: 11/21/24 12:35 Dose: 2.5 mg Documented By: [facility] Admin: 11/21/24 07:54 Dose: 2.5 mg Documented By: Admin: 11/20/24 17:17 Dose: 2.5 mg Documented By: Admin: 11/20/24 12:22 Dose: 2.5 mg Documented By: Admin: 11/20/24 08:00 Dose: 2.5 mg Documented By: [facility] Admin: 11/19/24 16:48 Dose: 2.5 mg Documented By: Admin: 11/19/24 10:54 Dose: 2.5 mg Documented By: Admin: 11/19/24 08:23 Dose: Not Given Documented By: CHIQUITA Miscellaneous (Remove Lidoderm Patch) 1 each N/A DAILY@2100 [facility] Stop: 12/20/24 20:59 Last Admin: 11/20/24 21:36 Dose: Not Given Documented By: DARIN Pantoprazole Sodium (Pantoprazole 40 Mg Tab) 40 mg PO DAILY [facility] Stop: 12/19/24 08:59 Last Admin: 11/21/24 07:57 Dose: 40 mg Documented By: Admin: 11/20/24 08:00 Dose: 40 mg Documented By: Admin: 11/19/24 08:23 Dose: 40 mg Documented By: CHIQUITA Vitamin B Complex/Folic Acid (Nephrocaps) 1 cap PO DAILY [facility] Stop: 12/19/24 08:59 Last Admin: 11/21/24 07:58 Dose: 1 cap Documented By: Admin: 11/20/24 07:59 Dose: 1 cap Documented By: Admin: 11/19/24 08:26 Dose: 1 cap Documented By: CHIQUITA Warfarin Sodium (Warfarin Sod 2 Mg Tab) 2 mg PO TODAY@1600 [facility] Stop: 12/19/24 15:59 Last Admin: 11/21/24 15:38 Dose: 2 mg Documented By: Admin: 11/20/24 17:16 Dose: 2 mg Documented By: [facility] Admin: 11/19/24 17:57 Dose: 2 mg Documented By: CHIQUITA Discontinued Medications Sodium Chloride (Nss) 250 mls @ 999 mls/hr IV .Q16M ONE Stop: 11/19/24 01:43 Last Infusion: 11/19/24 03:15 Dose: Infused Documented By: Admin: 11/19/24 02:50 Dose: 999 mls/hr Documented By: MIRELA Magnesium Sulfate/Dextrose (Magnesium Sulfate / D5w) 1 gm in 100 mls @ 100 mls/hr IV NOW STA Stop: 11/19/24 04:21 Last Infusion: 11/19/24 06:23 Dose: Infused Documented By: Admin: 11/19/24 04:07 Dose: 100 mls/hr Documented By: MIRELA Magnesium Sulfate/Dextrose (Magnesium Sulfate / D5w) 1 gm in 100 mls @ 50 mls/hr IV ONE ONE Stop: 11/19/24 06:21 Last Infusion: 11/19/24 09:07 Dose: Infused Documented By: Admin: 11/19/24 06:34 Dose: 50 mls/hr Documented By: PRAVIN Albumin Human (Albumin 25%) 25 gm in 100 mls @ 50 mls/hr IV ONE ONE Stop: 11/19/24 05:53 Last Infusion: 11/19/24 10:57 Dose: Infused Documented By: Admin: 11/19/24 04:46 Dose: 50 mls/hr Documented By: CECI Piperacillin Sod/Tazobactam Sod (Zosyn) 4.5 gm in 100 mls @ 200 mls/hr IV NOW STA; Protocol Stop: 11/19/24 06:20 Last Infusion: 11/19/24 17:07 Dose: Infused Documented By: Admin: 11/19/24 08:16 Dose: 200 mls/hr Documented By: CHIQUITA Magnesium Sulfate/Dextrose (Magnesium Sulfate / D5w) 1 gm in 100 mls @ 50 mls/hr IV ONE ONE Stop: 11/20/24 10:10 Last Infusion: 11/20/24 17:18 Dose: Infused Documented By: Admin: 11/20/24 08:53 Dose: 50 mls/hr Documented By: CHIQUITA Ioversol (Optiray 320 100ml) 94 ml IV ONCE ONE Stop: 11/19/24 13:07 Last Admin: 11/19/24 13:07 Dose: 94 ml Documented By: [place] Potassium Chloride (Potassium Chloride Crtab 20 Meq Tabcr) 20 meq PO NOW STA Stop: 11/19/24 15:19 Last Admin: 11/19/24 16:25 Dose: 20 meq Documented By: CHIQUITA Potassium Chloride (Potassium Chloride Crtab 20 Meq Tabcr) 20 meq PO NOW STA Stop: 11/20/24 08:10 Last Admin: 11/20/24 08:53 Dose: 20 meq Documented By: CHIQUITA Potassium Chloride (Potassium Chloride Pwd 20 Meq Pack) 40 meq PO ONE ONE Stop: 11/20/24 13:01 Last Admin: 11/20/24 12:21 Dose: 40 meq Documented By: CHIQUITA Warfarin Sodium (Warfarin Sod 2 Mg Tab) 2 mg PO DAILY JULIANNA Stop: 12/19/24 15:59 Last Admin: 11/19/24 18:51 Dose: Not Given Documented By: [facility] Imaging Data Radiologist's Impression: Chest X-Ray 11/18/24 23:56 EXAM: XR chest 1V portable CLINICAL HISTORY: cough, covid TECHNIQUE: Radiograph of chest was acquired. COMPARISON: none FINDINGS: The lungs are clear and well-expanded with no pulmonary infiltrate or pleural effusion. The cardiomediastinal silhouette is within normal limits. No acute osseous abnormality. IMPRESSION: 1. No acute cardiopulmonary disease. Electronically signed by Omkar Dye 11-19-2024 02:35 AM Pelvis X-Ray 11/18/24 23:58 EXAM: XR pelvis 1-2V routine CLINICAL HISTORY: trauma TECHNIQUE: Radiograph of pelvis was acquired. COMPARISON: none FINDINGS: No acute fracture or dislocation. The soft tissues are unremarkable. Visualized joint spaces are well maintained. IMPRESSION: 1. No acute osseous or soft tissue abnormality. Electronically signed by Omkar Dye 11-19-2024 02:[address] 11/19/24 00:13 EXAM: CT cervical spine wo con CLINICAL HISTORY: trauma TECHNIQUE: Computed tomography of the cervical spine performed without intravenous contrast. Contiguous axial images were obtained from the skull base to T2, with sagittal and coronal reformatted images reconstructed from the axial data. CT scan was performed according to ALARA (as low as reasonably achievable). COMPARISON: none FINDINGS: Loss of cervical lordotic curvature. Cervical vertebral bodies are normal in height and alignment, with no evidence of fracture or subluxation. Lateral masses of C1 are symmetrical, and the dens is intact. Prevertebral soft tissues are not widened. Small marginal osteophytes at C5 and C6. The remaining suprahyoid and infrahyoid soft tissues in the neck are unremarkable. No disc bulge, mass effect on the cord or neuroforaminal narrowing. Thyroid gland appears unremarkable. IMPRESSION: 1.No acute fracture or subluxation in the cervical spine. Electronically signed by Omkar Dye 11-19-2024 02:[address] 11/19/24 00:13 EXAM: CT head/brain wo con CLINICAL HISTORY: trauma TECHNIQUE: Multiple axial images are obtained from the skull base to the vertex without contrast. CT scan was performed according to ALARA (as low as reasonably achievable). COMPARISON: none FINDINGS: There is cerebral atrophy. Chronic lacunar infarct in right thalamus. No evidence of space occupying lesion, hemorrhage, edema, mass effect, midline shift, extra axial collection, or hydrocephalus is noted. Basal cisterns are symmetric and normal in size and configuration. There are scattered periventricular hypodensities as can be seen with chronic microvascular ischemic changes. The pinto-white matter differentiation is preserved. Visualized paranasal sinuses and mastoid air cells are well aerated. Orbital contents are within normal limits. Bony structures are intact. IMPRESSION: 1. No evidence of acute intracranial abnormality is demonstrated. 2. Chronic microvascular ischemic changes. Chronic lacunar infarct in right thalamus. 3. Cerebral atrophy. Electronically signed by Omkar Dye 11-19-2024 02:42 AM Discharge Plan Visit Data Chief Complaint: Fall Stated Complaint: FALL, LETHARGIC ED Provider: Gini Wolf Discharge Problem: Generalized weakness, Accident due to mechanical fall without injury, Hypokalemia, Hyponatremia, CKD (chronic kidney disease) Patient Disposition: Admitted As Inpatient Discharge Instructions Interventions: ED Discharge Assessment Last Done: 11/19/24 05:21
[2024-11-19 00:23] LABS: Basophils # (auto) 0.03 K/uL (0.00-0.20); Basophils % (auto) 0.2 %; Eosinophils # (auto) 0.01 K/uL (0.00-0.50); Eosinophils % (auto) 0.1 %; Hematocrit (blood only) 38.9 % (42.0-52.0); Hemoglobin 13.3 g/dl (14.0-18.0); Immature Granulocytes # (auto) 0.12 K/uL (0.01-0.20); Immature Granulocytes % (auto) 0.9 %; Lymphocytes # (auto) 0.76 K/uL (1.20-3.40); Lymphocytes % (auto) 5.7 %; Mean Corpuscular Hemoglobin 29.9 pg (25.0-34.0); Mean Corpuscular Hgb Conc 34.2 g/dL (32.0-36.0); Mean Corpuscular Volume 87.4 fL (80.0-100.0); Mean Platelet Volume 10.7 fL (9.4-12.4); Monocytes # (auto) 0.92 K/uL (0.11-0.59); Monocytes % (auto) 6.9 %; Neutrophils # (auto) 11.45 K/uL (1.40-6.50); Neutrophils % (auto) 86.2 %; Platelet Count 195 K/uL (130-400); RDW Coefficient of Variation 16.2 % (11.5-14.5); RDW Standard Deviation 50.7 fL (36.4-46.3); Red Blood Count 4.45 M/uL (4.70-6.10); White Blood Count 13.29 K/ul (4.8-10.8)
[2024-11-19 00:52] LABS: Albumin Level 3.4 gm/dl (3.4-5.0); BUN Creatinine Ratio 4.7 (10-20); Bilirubin,Total 0.6 mg/dl (0.2-1.0); Calcium 8.2 mg/dl (8.6-10.3); Creatinine Clr Calc Pharmacy 9.2 ml/min; Globulin 3.3 gm/dl (2.5-4.0); Magnesium 1.4 mg/dl (1.7-2.4); Potassium 3.3 mmol/L (3.5-5.1); Total Protein 6.7 gm/dl (6.0-8.3)
[2024-11-19 00:55] LABS: INR 2.2 (0.9-1.1); Prothrombin Time 22.7 Seconds (9.0-12.0)
--- NOTE | 2024-11-19 02:35 | XRay Report ---
EXAM: XR chest 1V portable CLINICAL HISTORY: cough, covid TECHNIQUE: Radiograph of chest was acquired. COMPARISON: none FINDINGS: The lungs are clear and well-expanded with no pulmonary infiltrate or pleural effusion. The cardiomediastinal silhouette is within normal limits. No acute osseous abnormality. IMPRESSION: 1. No acute cardiopulmonary disease. Electronically signed by Omkar Dye 11-19-2024 02:35 AM
--- NOTE | 2024-11-19 02:39 | CT Scan Report ---
EXAM: CT cervical spine wo con CLINICAL HISTORY: trauma TECHNIQUE: Computed tomography of the cervical spine performed without intravenous contrast. Contiguous axial images were obtained from the skull base to T2, with sagittal and coronal reformatted images reconstructed from the axial data. CT scan was performed according to ALARA (as low as reasonably achievable). COMPARISON: none FINDINGS: Loss of cervical lordotic curvature. Cervical vertebral bodies are normal in height and alignment, with no evidence of fracture or subluxation. Lateral masses of C1 are symmetrical, and the dens is intact. Prevertebral soft tissues are not widened. Small marginal osteophytes at C5 and C6. The remaining suprahyoid and infrahyoid soft tissues in the neck are unremarkable. No disc bulge, mass effect on the cord or neuroforaminal narrowing. Thyroid gland appears unremarkable. IMPRESSION: 1.No acute fracture or subluxation in the cervical spine. Electronically signed by Omkar Dye 11-19-2024 02:38 AM
--- NOTE | 2024-11-19 02:41 | XRay Report ---
EXAM: XR pelvis 1-2V routine CLINICAL HISTORY: trauma TECHNIQUE: Radiograph of pelvis was acquired. COMPARISON: none FINDINGS: No acute fracture or dislocation. The soft tissues are unremarkable. Visualized joint spaces are well maintained. IMPRESSION: 1. No acute osseous or soft tissue abnormality. Electronically signed by Omkar Dye 11-19-2024 02:40 AM
--- NOTE | 2024-11-19 02:43 | CT Scan Report ---
EXAM: CT head/brain wo con CLINICAL HISTORY: trauma TECHNIQUE: Multiple axial images are obtained from the skull base to the vertex without contrast. CT scan was performed according to ALARA (as low as reasonably achievable). COMPARISON: none FINDINGS: There is cerebral atrophy. Chronic lacunar infarct in right thalamus. No evidence of space occupying lesion, hemorrhage, edema, mass effect, midline shift, extra axial collection, or hydrocephalus is noted. Basal cisterns are symmetric and normal in size and configuration. There are scattered periventricular hypodensities as can be seen with chronic microvascular ischemic changes. The pinto-white matter differentiation is preserved. Visualized paranasal sinuses and mastoid air cells are well aerated. Orbital contents are within normal limits. Bony structures are intact. IMPRESSION: 1. No evidence of acute intracranial abnormality is demonstrated. 2. Chronic microvascular ischemic changes. Chronic lacunar infarct in right thalamus. 3. Cerebral atrophy. Electronically signed by Omkar Dye 11-19-2024 02:42 AM
[2024-11-19] MEDS: SODIUM CHLORIDE 0.9% 250 ML IV ONE (02:50)
--- NOTE | 2024-11-19 03:29 | History & Physical Report ---
Date of Service November 19, 2024 Assessment & Plan (1) Encephalopathy: Plan: Encephalopathy History cognitive impairment as per records Secondary to hypovolemia with marked hemoconcentration Rule out UTI as source of infection, possible sepsis, leukocytosis with tachypnea Rule out hepatic encephalopathy, history cirrhosis as per records Acute on chronic hypotension secondary to illness History midodrine Rx hx PE/A-fib (early TBS) on Coumadin, INR therapeutic hypertrophic cardiomyopathy CAD/ PVD Old CVA on CAT scan Recent COVID-19 illness, still with cough symptoms on doxycycline Rx COPD/RLD as per records, lungs clear to auscultation on exam prostate cancer status post surgery Chronic anemia, hemoglobin better than baseline likely secondary to hemoconcentration inclusion body myositis as per records, patient/family to decide on steroid Rx recommendation from local neurologist following recent outpatient visit Prediabetes, hemoglobin A1c of 6.4 this month Subclinical hypothyroidism Hypomagnesemia Deconditioning past tobacco abuse Medical telemetry Check UA, CS, check lactic acid, procalcitonin Check ammonia level Continue midodrine Replace magnesium Further management contingent on workup results Nephrology consult Re: Peritoneal dialysis management PT OT eval once medically stable Patient may benefit from rehab stay prior to returning to personal care facility DVT prophylaxis. Coumadin INR goal between 2 and 3 Full code Patient's son requesting updates providers. Mr. Kennynabila Mali, contact #[phone]. Text document was generated using [employer] voice recognition software. It may contain grammatical or spelling errors. Kindly contact undersigned for clarification of any documentation item in question. ADDENDUM: Unable to obtain UA via catheterization as per RN Procalcitonin minimally elevated Zosyn for now for possible sepsis of unknown source History of Present Illness Chief Complaint: Fall, weakness, confusion Primary Care Provider: [facility] History obtained from patient, ED provider, and records. Limited history from patient secondary to lethargic state. Medical history significant for PE/A-fib (early TBS) on Coumadin, hypertrophic cardiomyopathy, moderate TR, CAD, PVD, hypotension on midodrine, COPD/RLD as per records, recent COVID-19 pneumonia, ESRD on PD, esophageal achalasia as per records, cirrhosis, prostate cancer status post surgery, MGUS, chronic anemia (baseline hemoglobin 10-11), cognitive impairment, inclusion body myositis as per records, past tobacco abuse. Recent November 12 to 2024 for severe COVID-19 pneumonia. Patient received Decadron Rx and discharged on doxycycline course. Patient noted by son to be increasingly weak at personal care facility. Still coughing. Patient feeling spaced out. Patient had a fall in the bathroom yesterday witnessed by son during peritoneal dialysis. No head trauma. Patient denies chest pain, LOC, abdominal pain. Patient looks short of breath and shaky as per personal care facility staff note. Temperature elevation of 100. SBP 90s upon arrival at the ER. 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 Allergies Allergy/AdvReac Type Severity Reaction Status Date / Time No Known Allergies Allergy Verified 11/12/24 22:14 Home Medications Medication Instructions Recorded Confirmed Type amiodarone 200 mg tablet 200 mg PO DAILY 10/16/24 11/19/24 History metoprolol succinate 25 mg 25 mg PO DAILY 10/16/24 11/19/24 History tablet,extended release 24 hr midodrine 2.5 mg tablet 2.5 mg PO AMPM 10/16/24 11/19/24 History warfarin 2 mg tablet 2 mg PO DAILY 10/19/24 11/19/24 History docusate sodium 100 mg capsule 100 mg PO BID #60 caps 10/21/24 11/19/24 Rx polyethylene glycol 3350 17 gram 17 g PO DAILY PRN constipation #30 10/21/24 11/19/24 Rx oral powder packet (Miralax) ea Lactobacillus acidophilus 1 tab PO DAILY 11/12/24 11/19/24 History Renal Multivit W/1mg Or <Fa 1 tab PO DAILY 11/12/24 11/19/24 History acetaminophen 500 mg tablet 500 mg PO Q6H 11/12/24 11/19/24 History cholecalciferol (vitamin D3) 50 50 mcg PO DAILY 11/12/24 11/19/24 History mcg (2,000 unit) capsule (Vitamin D3) gentamicin 0.1 % topical cream 1 applic topical DAILY 11/12/24 11/19/24 History lanolin alcohols-mineral 1 applic topical UD PRN SKIN CARE 11/12/24 11/19/24 History oil-w.petrolatum-ceresin topical cream (Eucerin topical cream) maltodextrin 1 ea PO QAM PRN Constipation 11/12/24 11/19/24 History menthol 0.44 %-zinc oxide 20.6 % 1 applic topical DAILY 11/12/24 11/19/24 History topical ointment (Calmoseptine) metoprolol tartrate 25 mg tablet 25 mg PO DAILY PRN HR > 100 @ REST 11/12/24 11/19/24 History pantoprazole 40 mg tablet,delayed 40 mg PO DAILY 11/12/24 11/19/24 History release doxycycline hyclate 100 mg capsule 100 mg PO BID 6 days #12 caps 11/15/24 11/19/24 Rx Past Med/Surg History Problem List (Updated 11/19/24 @ 04:24 by Frank Snow MD) Encephalopathy Accident due to mechanical fall without injury (Acute) Generalized weakness (Acute) Elevated troponin (Acute) Elevated lactic acid level (Acute) Acute hypotension (Acute) COVID-19 (Acute) Constipation Enterococcus faecalis infection End stage renal disease Peritonitis due to infected peritoneal dialysis catheter Pleural effusion Dialysis-associated peritonitis (Acute) Severe sepsis (Acute) Acute on chronic anemia Pneumoperitoneum Hypothyroid Elevated troponin I level Hypotension Atrial flutter with rapid ventricular response Hypotension Atrial fibrillation with RVR (Acute) Anticoagulant long-term use (Acute) Bright red rectal bleeding (Acute) Bifascicular block Hypertrophic cardiomyopathy Atrial flutter, paroxysmal Acute dyspnea (Acute) Atrial fibrillation with rapid ventricular response Bilateral pulmonary embolism (Acute) Bilateral pulmonary embolism Encounter for pre-operative examination Hyperkalemia Weakness (Acute) Hyperkalemia (Acute) Lab test negative for COVID-19 virus (Acute) Prostate cancer s/p prostatectomy Tobacco use Quit 03/2023 HTN (hypertension) HLD (hyperlipidemia) CKD (chronic kidney disease), stage V (Acute) Medical History CAP (community acquired pneumonia) Hypotension ESRD on peritoneal dialysis Renal cyst 3.9 cm cystic lesion-L Paroxysmal A-fib listed in [facility] records CAD (coronary artery disease) PVD (peripheral vascular disease) Dysphagia Anemia Pulmonary nodule MGUS (monoclonal gammopathy of unknown significance) follows with S heme/onc LBBB (left bundle branch block) Hearing deficit Surgical History History of appendectomy History of tooth extraction all teeth removed History of bilateral cataract extraction History of prostatectomy Family History Father Diabetes Other No family history of adverse response to anesthesia Social History Smoking Status: Former smoker Tobacco Type: Cigarettes Second Hand Exposure: No; Do You Dip or Chew Tobacco: No; Hx Alcohol Use: No Hx Substance Use: No Preferred Language: Uzbek Communication Ability: Effective Technical Maintenance Specialist Required: No Beliefs That Will Affect Care: None Current Living Situation: [facility] Current Living Situation Comment: lives at facility Feels Safe at Home: Yes Assistive Devices: Denture - Upper and Denture - Lower Review of Systems Review of Systems: Could not be reliably obtained secondary to lethargic state Physical Exam Physical Exam: GENERAL: lethargic, ill-appearing, hard of hearing, no respiratory distress SKIN: Pallor, warm HEENT: Pale palpebral conjunctivae, no ptosis, dry buccal mucosa NECK : Supple, no tenderness CHEST : Decreased breath sounds, no tenderness HEART : RRR, systolic murmur ABDOMEN: Some distention, PD port noted EXTREMITIES : LE swelling without LE tenderness, no other conspicuous deformities noted NEUROLOGIC : Lethargic, no facial asymmetry, slightly hard of hearing, gait and stance not assessed Results & Data Results & Data Vital Signs (Past 12 Hours) Vital Signs Temp Pulse Pulse Resp BP BP Pulse Ox 11/19/24 03:14 71 23 104/64 94 11/19/24 02:00 68 24 104/64 94 11/19/24 00:20 83 11/19/24 00:03 36.6 C 83 35 H 108/76 94 11/19/24 00:03 85 35 H 90/43 L 94 O2 Del Method 11/19/24 03:14 Room Air 11/19/24 02:00 Room Air 11/19/24 00:20 11/19/24 00:03 Room Air 11/19/24 00:03 Room Air Laboratory Results Laboratory Results WBC 13.29 K/ul (4.8-10.8) H 11/18/24 23:55 RBC 4.45 M/uL (4.70-6.10) L 11/18/24 23:55 Hgb 13.3 g/dl (14.0-18.0) L 11/18/24 23:55 Hct 38.9 % (42.0-52.0) L 11/18/24 23:55 MCV 87.4 fL (80.0-100.0) 11/18/24 23:55 MCH 29.9 pg (25.0-34.0) 11/18/24 23:55 MCHC 34.2 g/dL (32.0-36.0) 11/18/24 23:55 RDW Std Deviation 50.7 fL (36.4-46.3) H 11/18/24 23:55 RDW Coeff of Maureen 16.2 % (11.5-14.5) H 11/18/24 23:55 Plt Count 195 K/uL (130-400) 11/18/24 23:55 MPV 10.7 fL (9.4-12.4) 11/18/24 23:55 Immature Gran % (Auto) 0.9 % 11/18/24 23:55 Neut % (Auto) 86.2 % 11/18/24 23:55 Lymph % (Auto) 5.7 % 11/18/24 23:55 Irion % (Auto) 6.9 % 11/18/24 23:55 Eos % (Auto) 0.1 % 11/18/24 23:55 Baso % (Auto) 0.2 % 11/18/24 23:55 Neut # (Auto) 11.45 K/uL (1.40-6.50) H 11/18/24 23:55 Lymph # (Auto) 0.76 K/uL (1.20-3.40) L 11/18/24 23:55 Irion # (Auto) 0.92 K/uL (0.11-0.59) H 11/18/24 23:55 Eos # (Auto) 0.01 K/uL (0.00-0.50) 11/18/24 23:55 Baso # (Auto) 0.03 K/uL (0.00-0.20) 11/18/24 23:55 Immature Gran # (Auto) 0.12 K/uL (0.01-0.20) 11/18/24 23:55 PT 22.7 Seconds (9.0-12.0) H 11/18/24 23:55 INR 2.2 (0.9-1.1) H 11/18/24 23:55 Sodium 134 mmol/L (136-145) L 11/18/24 23:55 Potassium 3.3 mmol/L (3.5-5.1) L 11/18/24 23:55 Chloride 93 mmol/L (98-107) L 11/18/24 23:55 Carbon Dioxide 27 mmol/L (21-32) 11/18/24 23:55 Anion Gap 14 (3-11) H 11/18/24 23:55 BUN 34 mg/dl (6-23) H 11/18/24 23:55 Creatinine 7.29 mg/dl (0.6-1.4) H* 11/18/24 23:55 Est Cr Clr Drug Dosing 9.2 ml/min 11/18/24 23:55 eGFR 7.10 11/18/24 23:55 BUN/Creatinine Ratio 4.7 (10-20) L 11/18/24 23:55 Glucose 191 mg/dl (70-99(Fasting)) H 11/18/24 23:55 Calcium 8.2 mg/dl (8.6-10.3) L 11/18/24 23:55 Magnesium 1.4 mg/dl (1.7-2.4) L 11/18/24 23:55 Total Bilirubin 0.6 mg/dl (0.2-1.0) 11/18/24 23:55 AST 34 U/L (13-39) 11/18/24 23:55 ALT 52 U/L (7-52) 11/18/24 23:55 Alkaline Phosphatase 82 U/L (34-104) 11/18/24 23:55 Total Protein 6.7 gm/dl (6.0-8.3) 11/18/24 23:55 Albumin 3.4 gm/dl (3.4-5.0) 11/18/24 23:55 Globulin 3.3 gm/dl (2.5-4.0) 11/18/24 23:55 Albumin/Globulin Ratio 1.0 (0.9-2) 11/18/24 23:55 Lipase 96 U/L (11-82) H 11/18/24 23:55 Impressions Chest X-Ray 11/18/24 23:56 EXAM: XR chest 1V portable CLINICAL HISTORY: cough, covid TECHNIQUE: Radiograph of chest was acquired. COMPARISON: none FINDINGS: The lungs are clear and well-expanded with no pulmonary infiltrate or pleural effusion. The cardiomediastinal silhouette is within normal limits. No acute osseous abnormality. IMPRESSION: 1. No acute cardiopulmonary disease. Electronically signed by Omkar Dye 11-19-2024 02:35 AM Pelvis X-Ray 11/18/24 23:58 EXAM: XR pelvis 1-2V routine CLINICAL HISTORY: trauma TECHNIQUE: Radiograph of pelvis was acquired. COMPARISON: none FINDINGS: No acute fracture or dislocation. The soft tissues are unremarkable. Visualized joint spaces are well maintained. IMPRESSION: 1. No acute osseous or soft tissue abnormality. Electronically signed by Omkar Dye 11-19-2024 02:[address] 11/19/24 00:13 EXAM: CT cervical spine wo con CLINICAL HISTORY: trauma TECHNIQUE: Computed tomography of the cervical spine performed without intravenous contrast. Contiguous axial images were obtained from the skull base to T2, with sagittal and coronal reformatted images reconstructed from the axial data. CT scan was performed according to ALARA (as low as reasonably achievable). COMPARISON: none FINDINGS: Loss of cervical lordotic curvature. Cervical vertebral bodies are normal in height and alignment, with no evidence of fracture or subluxation. Lateral masses of C1 are symmetrical, and the dens is intact. Prevertebral soft tissues are not widened. Small marginal osteophytes at C5 and C6. The remaining suprahyoid and infrahyoid soft tissues in the neck are unremarkable. No disc bulge, mass effect on the cord or neuroforaminal narrowing. Thyroid gland appears unremarkable. IMPRESSION: 1.No acute fracture or subluxation in the cervical spine. Electronically signed by Omkar Dye 11-19-2024 02:[address] 11/19/24 00:13 EXAM: CT head/brain wo con CLINICAL HISTORY: trauma TECHNIQUE: Multiple axial images are obtained from the skull base to the vertex without contrast. CT scan was performed according to ALARA (as low as reasonably achievable). COMPARISON: none FINDINGS: There is cerebral atrophy. Chronic lacunar infarct in right thalamus. No evidence of space occupying lesion, hemorrhage, edema, mass effect, midline shift, extra axial collection, or hydrocephalus is noted. Basal cisterns are symmetric and normal in size and configuration. There are scattered periventricular hypodensities as can be seen with chronic microvascular ischemic changes. The pinto-white matter differentiation is preserved. Visualized paranasal sinuses and mastoid air cells are well aerated. Orbital contents are within normal limits. Bony structures are intact. IMPRESSION: 1. No evidence of acute intracranial abnormality is demonstrated. 2. Chronic microvascular ischemic changes. Chronic lacunar infarct in right thalamus. 3. Cerebral atrophy. Electronically signed by Omkar Dye 11-19-2024 02:42 AM Diagnostic Findings EKG as per my interpretation :Rate 90, NSR, LAD, LAFB, RBBB, nonspecific T wave abnormalities, multiple artifacts
[2024-11-19] MEDS ORDERED: PROMETHAZINE 6.25 MG/50.25 ML BAG IV PRN (03:56)
[2024-11-19] MEDS: MAGNESIUM SULFATE / D5W 1 GM/100 ML BAG IV STA (04:07)
[2024-11-19] MEDS: ALBUMIN 25% 25 GM/100 ML VIAL IV ONE (04:46)
[2024-11-19] MEDS: MAGNESIUM SULFATE / D5W 1 GM/100 ML BAG IV ONE (06:34)
--- NOTE | 2024-11-19 07:58 | Nephrology Consultation ---
Date of Consultation November 19, 2024 Assessment & Plan (1) Peritoneal dialysis status: -resume routine PD this evening; no ico inpatient unfortunately; else continue routine rx >> 14hr w/ 6 x 2.5 L fills alternating 1.5 and 2.5% bags I ordered fluid studies to evaluate for PD peritonitis since there was concern for sepsis >> no concern for peritonitis on these studies (2) Encephalopathy: resolving; ? lack of sleep; work up per primary service; -? need for MRI brain/stroke eval > if this is done and IV con used, pls d/w nephro and will time dialysis to be after; -check orthostatic VS USING GOOD TECHNIQUE when BP better ->>>>concern for early sepsis with elevated WBC, hypotension, altered MS, tachypnea on admission >> he is anuric so no point to UTI w/u but will eval for recurrent PD peritonitis >> have ordered fluid studies/culture and dialysis nurse aware to collect >> these are negative (3) Generalized weakness: per primary service; ? relation to infection or hypotension >>cover and eval for early sepsis (4) Accident due to mechanical fall without injury: follow up with primary service and when appropriate PT (5) Elevated lactic acid level: this is chronic; he's literally never had a normal lactic acid level here; admission 2.2 level is same as d/c level from 11/15; still we are doing sepsis work up given overall clinical picture and later in day LA actually normalized to 2 History of Present Illness Reason for Consultation: dialysis missed Requesting Physician: Dr Snow Attending Physician: Amy Shrestha MD History of Present Illness 79 y/o M whom I'm asked to see for missed dialysis was admitted overnight for encephalopathy and hypotension after falling at his asst living facility. 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 Admitted here April 2024 for community acquired versus aspiration pneumonia (silent aspiration as per video swallow study April 2024); March 2024 admission w/ rectal bleeding/hematochezia; colonoscopy that admission remarkable for 3 polyps resected (all adenomata); internal hemorrhoids. Also admitted here 10/16-10/21 for PD peritonitis w/ E faecalis treated w/ tid amoxicillin po and again 11/12 - 11/15 for severe Covid19 pneumonia, s/p decadron and doxycycline. had been noted at personal care facility to have increasing generalized weakness prior to admission and some worsening MS. He also fell in the bathroom while on PD w/o hitting his head; fall observed by his son who is his PD carepartner. he was in the middle of 2nd dwell at time of fall per report. he was disconnected from PD cycler by his carepartner and brought by EMS to hospital. He does PD under my care at [facility]. His TW is 81 kg and his normal RX is 12 hrs on cycler w/ 5 x 2.8L fills and a 2L day dwell of icodextran. with the loss of his residual renal function late last spring, it has been challenging to find a workable PD prescription for him. We have been discussing changing to in center HD. He has appts for vascular access eval but no permanent access yet. ER w/u notable for worse than baseline MS and concern for hypotension: his SBP was 90s on ER arrival. Noted to have WBC 13K, Lactate 2.2, K 3.3, mag 1.4. He was very frustrated at being woken up so many times and having poor sleep when I evaluated him this am. He c/o L lower anterior rib pain pleuritic and new since dwell for fluid studies instilled. denied dyspnea or cough or orthopnea. no n/v/d/abd pain/constipation. He is anuric. no rash ; no edema, no chst pain or palpitations, no bleeding. no KNOX or new focal numbnes/sweakness. Allergies Allergy/AdvReac Type Severity Reaction Status Date / Time No Known Allergies Allergy Verified 11/12/24 22:14 Home Medications Medication Instructions Recorded Confirmed Type amiodarone 200 mg tablet 200 mg PO DAILY 10/16/24 11/19/24 History metoprolol succinate 25 mg 25 mg PO DAILY 10/16/24 11/19/24 History tablet,extended release 24 hr midodrine 2.5 mg tablet 2.5 mg PO AMPM 10/16/24 11/19/24 History warfarin 2 mg tablet 2 mg PO DAILY 10/19/24 11/19/24 History docusate sodium 100 mg capsule 100 mg PO BID #60 caps 10/21/24 11/19/24 Rx polyethylene glycol 3350 17 gram 17 g PO DAILY PRN constipation #30 10/21/24 11/19/24 Rx oral powder packet (Miralax) ea Lactobacillus acidophilus 1 tab PO DAILY 11/12/24 11/19/24 History Renal Multivit W/1mg Or <Fa 1 tab PO DAILY 11/12/24 11/19/24 History acetaminophen 500 mg tablet 500 mg PO Q6H 11/12/24 11/19/24 History cholecalciferol (vitamin D3) 50 50 mcg PO DAILY 11/12/24 11/19/24 History mcg (2,000 unit) capsule (Vitamin D3) gentamicin 0.1 % topical cream 1 applic topical DAILY 11/12/24 11/19/24 History lanolin alcohols-mineral 1 applic topical UD PRN SKIN CARE 11/12/24 11/19/24 History oil-w.petrolatum-ceresin topical cream (Eucerin topical cream) maltodextrin 1 ea PO QAM PRN Constipation 11/12/24 11/19/24 History menthol 0.44 %-zinc oxide 20.6 % 1 applic topical DAILY 11/12/24 11/19/24 History topical ointment (Calmoseptine) metoprolol tartrate 25 mg tablet 25 mg PO DAILY PRN HR > 100 @ REST 11/12/24 11/19/24 History pantoprazole 40 mg tablet,delayed 40 mg PO DAILY 11/12/24 11/19/24 History release doxycycline hyclate 100 mg capsule 100 mg PO BID 6 days #12 caps 11/15/24 11/19/24 Rx Patient History Medical History CAP (community acquired pneumonia) Hypotension ESRD on peritoneal dialysis Renal cyst 3.9 cm cystic lesion-L Paroxysmal A-fib listed in [facility] records CAD (coronary artery disease) PVD (peripheral vascular disease) Dysphagia Anemia Pulmonary nodule MGUS (monoclonal gammopathy of unknown significance) follows with [facility] heme/onc LBBB (left bundle branch block) Hearing deficit Surgical History History of appendectomy History of tooth extraction all teeth removed History of bilateral cataract extraction History of prostatectomy Family History Father Diabetes Other No family history of adverse response to anesthesia Social History Smoking Status: Former smoker Tobacco Type: Cigarettes Second Hand Exposure: No; Do You Dip or Chew Tobacco: No; Hx Alcohol Use: No Hx Substance Use: No Preferred Language: Greenlandic Communication Ability: Effective Audit Associate Required: No Beliefs That Will Affect Care: None Current [facility]uation[facility] Current Living Situation Comment: lives at facility Feels Safe at Home: Yes Assistive Devices: Walker Review of Systems 2 Review of Systems: All systems reviewed & are unremarkable except as noted in HPI & below Physical Exam 2 Constitutional: well developed, well nourished and + in distress (mild w/ breathing and somewhat combative); no altered mental status Eyes: EOM intact bilaterally ENMT: Mouth: + dry oral mucous membranes Respiratory: normal respiratory effort, + labored breathing, + cough, able to speak in complete sentences and + tachypneic Auscultation: + diminished lung sounds Cardiovascular: Rate/Rhythm: regular rate and regular rhythm Heart Sounds: + murmur Extremities: no edema rib pain reproductible on palpation L low/ anterior chest Gastrointestinal (Abdomen): Inspection/Auscultation: normal bowel sounds and + abdominal surgical drain present (PD catheter) Percussion/Palpation: abdomen soft; abdomen nontender Musculoskeletal: Extremities: strength 5/5 throughout Skin: no rashes, warm and dry Neurologic: ivory, fluent speech, no tremor Results & Data Vital Signs (Past 12 Hours) Vital Signs Temp Pulse Pulse Resp BP BP BP 11/19/24 07:40 36.5 C 87 18 95/59 L 11/19/24 05:56 11/19/24 05:56 36.4 C L 90 18 105/72 11/19/24 05:21 85 21 110/71 11/19/24 03:14 71 23 104/64 11/19/24 02:00 68 24 104/64 11/19/24 00:20 83 11/19/24 00:03 36.6 C 83 35 H 108/76 11/19/24 00:03 85 35 H 90/43 L Pulse Ox O2 Del Method 11/19/24 07:40 93 Room Air 11/19/24 05:56 Room Air 11/19/24 05:56 94 Room Air 11/19/24 05:21 95 Room Air 11/19/24 03:14 94 Room Air 11/19/24 02:00 94 Room Air 11/19/24 00:20 11/19/24 00:03 94 Room Air 11/19/24 00:03 94 Room Air Laboratory Results 11/18/24 23:55 11/18/24 23:55 lactate 2.[address] 1. No evidence of acute intracranial abnormality is demonstrated. 2. Chronic microvascular ischemic changes. Chronic lacunar infarct in right thalamus. 3. Cerebral atrophy. CXR (images personally reviewed/agree w/ report), pelvic XR, c spine CT all w/o acute process
[2024-11-19] MEDS: 4.5GM X1 IV STA (08:16)
[2024-11-19] MEDS: ADVANCED PROBIOTIC 625 MG CAPSULE PO SCH (08:22)
[2024-11-19] MEDS: DOXYCYCLINE HYCLATE 100 MG CAP PO SCH (08:23)
[2024-11-19] MEDS: PANTOprazole 40 MG TAB PO SCH (08:23)
[2024-11-19] MEDS: AMIODARONE 200 MG TAB PO SCH (08:23)
[2024-11-19] MEDS: MIDODRINE HCL 2.5 MG TAB PO SCH (08:23)
[2024-11-19] MEDS: NEPHROCAPS PO SCH (08:26)
[2024-11-19] MEDS: DOCUSATE SODIUM 100 MG CAP PO SCH (09:44)
[2024-11-19 10:29] LABS: Basophils # (auto) 0.03 K/uL (0.00-0.20); Basophils % (auto) 0.3 %; Eosinophils # (auto) 0.13 K/uL (0.00-0.50); Eosinophils % (auto) 1.5 %; Hematocrit (blood only) 32.9 % (42.0-52.0); Hemoglobin 11.2 g/dl (14.0-18.0); Immature Granulocytes # (auto) 0.07 K/uL (0.01-0.20); Immature Granulocytes % (auto) 0.8 %; Lymphocytes # (auto) 0.84 K/uL (1.20-3.40); Lymphocytes % (auto) 9.5 %; Mean Corpuscular Hemoglobin 29.7 pg (25.0-34.0); Mean Corpuscular Volume 87.3 fL (80.0-100.0); Mean Platelet Volume 10.6 fL (9.4-12.4); Monocytes # (auto) 0.61 K/uL (0.11-0.59); Monocytes % (auto) 6.9 %; Neutrophils # (auto) 7.16 K/uL (1.40-6.50); Platelet Count 160 K/uL (130-400); RDW Coefficient of Variation 16.1 % (11.5-14.5); RDW Standard Deviation 50.8 fL (36.4-46.3); Red Blood Count 3.77 M/uL (4.70-6.10); White Blood Count 8.84 K/ul (4.8-10.8)
[2024-11-19 10:49] LABS: BUN Creatinine Ratio 5.2 (10-20); Calcium 8.3 mg/dl (8.6-10.3); Creatinine Clr Calc Pharmacy 8.9 ml/min; Potassium 2.9 mmol/L (3.5-5.1)
[2024-11-19 10:58] LABS: INR 2.4 (0.9-1.1)
[2024-11-19 11:19] LABS: Appearance Peritoneal Fluid Clear; Color Peritoneal Fluid Pale Yellow; RBC Peritoneal Fluid Auto < 2000 /uL; WBC Peritoneal Fluid Auto < 10 /ul (0-300)
[2024-11-19] MEDS: OPTIRAY 320 100ml IV ONE (13:07)
--- NOTE | 2024-11-19 14:24 | CT Scan Report ---
CT chest diagnostic wo/w con CLINICAL HISTORY: left chest pain, ro abscess/infection COMPARISON STUDY: 11/13/2024 FINDINGS: There is mild emphysema. There are interval scattered reticular and patchy groundglass opac ities at the mid and lower lungs consistent with early pneumonia. No other consolidation or pleural e ffusion. No pneumothorax. No enlarged adenopathy. No pericardial effusion. There are diffuse coronary artery and aortic calcifications. No thoracic aortic dissection or aneurysm. No pulmonary embolism. Stable elevation of the right hemidiaphragm. No acute osseous findings. IMPRESSION: 1. Interval early bilateral pneumonia. 2. No other acute findings seen. Otherwise as described. ACT 112: Negative or not required by law. Electronically signed by: Jose Ramon Lawrence M.D. 11/19/2024 2:22 PM
--- NOTE | 2024-11-19 14:34 | Electrocardiogram Report ---
Test Reason : Blood Pressure : */* mmHG Vent. Rate : 85 BPM Atrial Rate : 85 BPM P-R Int : 196 ms QRS Dur : 142 ms QT Int : 500 ms P-R-T Axes : -9 -82 13 degrees QTcB Int : 595 ms Poor data quality, interpretation may be adversely affected Normal sinus rhythm Left axis deviation Right bundle branch block Septal infarct , age undetermined Possible Lateral infarct (cited on or before 24-Apr-2024) Inferior infarct (cited on or before 16-Oct-2024) Abnormal ECG When compared with ECG of 12-Nov-2024 18:29, Septal infarct is now Present Confirmed by Kyler Perkins ([id number]) on 11/19/2024 2:33:55 PM Referred By: REFERRED SELF Confirmed By: Kyelr Perkins
--- NOTE | 2024-11-19 15:25 | Communication Note ---
Date of Service: November 19, 2024 Patient was seen and examined at bedside. 79-year-old male with PMH of PE/A-fib on Coumadin, hypertrophic CM, CAD, PVD, hypotension on midodrine, COPD/RLD, ESRD on PD, esophageal achalasia, cirrhosis, prostate cancer status post surgery, MGUS, chronic anemia [baseline hemoglobin of 10-11], cognitive impairment, inclusion body myositis, past tobacco abuse who was recently admitted for COVID - 19 pneumonia/sp decdron Rx for 3-4 days/discharged to [facility] on room air presents w/ c/o increasing weakness, fall (no head trauma, witnessed fall). Pt looked SOB and shaky per [facility] and temp elevation of 100F per H. Pt denied chest pain, LOC, abdominal pain. He is being managed for the following: Likely superimposed bacterial pneumonia: In the setting of recent infection due to COVID-19 virus. Severe sepsis POA: In the setting of pneumonia. WBC/lactate/respiratory rate elevated at presentation. s/p IVF, lactate normalized. Acute metabolic encephalopathy: likely 2/2 acute illness iso underlying cognitive impairment. Patient was recently admitted for infection due to COVID-19 virus, was observed on room air for 2 days prior to discharge. This time patient comes in with increasing weakness and lethargy and noted to be short of breath and shaky per [facility] with elevated temperature. CT chest with interval early bilateral pneumonia. Admitting NH3 level 15. Procal elevated, MRSA neg. c/w zosyn 11/19 and doxy 11/19 WBC trending down, lactate wnl now, pt still weak/lethargic, f/u clinically. RO peritoneal infxn, f/u peritoneal cx (pt w/ no abd pain clinically, no tenderness) f/u admitting bl cx. Of note, pt doesn't make urine. Hypotension, ho: Pt w/ chronic hypotension, takes midodrine. monitor. Troponin elevation: secondary to illness in the setting of chronic kidney dysfunction, history ESRD on PD. Pt denies chest pain. ESRD on PD: Nephrology on board, appreciate help. Other chronic medical conditions: Continue with/resume home meds as and when a ble. hx PE/A-fib (early TBS) on Coumadin, INR therapeutic hypertrophic cardiomyopathy CAD/ PVD COPD/RLD as per records, not in acute exacerbation cirrhosis on imaging from past admission prostate cancer status post surgery Chronic anemia, hemoglobin better than baseline likely secondary to hemoconcentration cognitive impairment, patient mentating well inclusion body myositis as per records, patient to decide on steroid Rx recommendation from local neurologist following recent outpatient visit Hyperglycemia secondary to diabetes, hemoglobin A1c of 6.4 this admission Subclinical hypothyroidism , f/u TFT in 6 weeks past tobacco abuse. DVT prophylaxis. Coumadin INR goal between 2 and 3 Full code For detailed information on the patient, refer to today's H&P note. Text document was generated using [employer] voice recognition software. It may contain grammatical or spelling errors. Kindly contact undersigned for clarification of any documentation item in question.
[2024-11-19] MEDS: POTASSIUM CHLORIDE CRTAB 20 MEQ TABCR PO STA (16:25)
[2024-11-19] MEDS: PIPERACILLIN/TAZOBACTAM 4.5 GM/100 ML BAG IV SCH (16:40)
[2024-11-19] MEDS: ACETAMINOPHEN 500 MG TAB PO PRN (16:53)
[2024-11-19] MEDS: WARFARIN SOD 2 MG TAB PO SCH ×2 (17:57→18:51)
[2024-11-20 06:45] LABS: Hematocrit (blood only) 29.1 % (42.0-52.0); Hemoglobin 10.1 g/dl (14.0-18.0); Mean Corpuscular Hemoglobin 30.1 pg (25.0-34.0); Mean Corpuscular Hgb Conc 34.7 g/dL (32.0-36.0); Mean Corpuscular Volume 86.6 fL (80.0-100.0); Mean Platelet Volume 10.8 fL (9.4-12.4); Platelet Count 165 K/uL (130-400); RDW Standard Deviation 49.8 fL (36.4-46.3); Red Blood Count 3.36 M/uL (4.70-6.10); White Blood Count 8.88 K/ul (4.8-10.8)
[2024-11-20 07:04] LABS: BUN Creatinine Ratio 4.9 (10-20); Creatinine Clr Calc Pharmacy 8.9 ml/min; Magnesium 1.6 mg/dl (1.7-2.4); Phosphorus 3.6 mg/dl (2.5-4.9); Potassium 3.2 mmol/L (3.5-5.1)
[2024-11-20] MEDS: METOPROLOL SUCC 25MG EXT REL TAB PO SCH (07:59)
[2024-11-20] MEDS: MAGNESIUM SULFATE / D5W 1 GM/100 ML BAG IV ONE (08:53)
[2024-11-20] MEDS: POTASSIUM CHLORIDE CRTAB 20 MEQ TABCR PO STA (08:53)
[2024-11-20] MEDS: POTASSIUM CHLORIDE PWD 20 MEQ PACK PO ONE (12:21)
--- NOTE | 2024-11-20 16:38 | Hospitalist Progress Note ---
Date of Service November 20, 2024 Assessment & Plan (1) Encephalopathy: Plan 79-year-old male with PMH of PE/A-fib on Coumadin, hypertrophic CM, CAD, PVD, hypotension on midodrine, COPD/RLD, ESRD on PD, esophageal achalasia, cirrhosis, prostate cancer status post surgery, MGUS, chronic anemia [baseline hemoglobin of 10-11], cognitive impairment, inclusion body myositis, past tobacco abuse who was recently admitted for COVID - 19 pneumonia/sp decdron Rx for 3-4 days/discharged to [facility] on room air presents w/ c/o increasing weakness, fall (no head trauma, witnessed fall). Pt looked SOB and shaky per H and temp elevation of 100F per H. Pt denied chest pain, LOC, abdominal pain. He is being managed for the following: Likely superimposed bacterial pneumonia: In the setting of recent infection due to COVID-19 virus. Severe sepsis POA: In the setting of pneumonia. WBC/lactate/respiratory rate elevated at presentation. s/p IVF, lactate normalized. Acute metabolic encephalopathy: likely 2/2 acute illness iso underlying cognitive impairment. Patient was recently admitted for infection due to COVID-19 virus, was observed on room air for 2 days prior to discharge. This time patient comes in with increasing weakness and lethargy and noted to be short of breath and shaky per [facility] with elevated temperature. CT chest with interval early bilateral pneumonia. Admitting NH3 level 15. Procal elevated, MRSA neg. c/w zosyn 11/19 and doxy 11/19 WBC trending down, lactate wnl now, pt still weak/lethargic, f/u clinically. RO peritoneal infxn, f/u peritoneal cx (pt w/ no abd pain clinically, no tenderness) f/u admitting bl cx. Of note, pt doesn't make urine. De-escalate to p.o. antibiotic pending blood culture results. Plan to treat for 7 days. Hypotension, ho: Pt w/ chronic hypotension, takes midodrine. monitor. Troponin elevation: secondary to illness in the setting of chronic kidney dysfunction, history ESRD on PD. Pt denies chest pain. ESRD on PD: Nephrology on board, appreciate help. Other chronic medical conditions: Continue with/resume home meds as and when able. hx PE/A-fib (early TBS) on Coumadin, INR therapeutic hypertrophic cardiomyopathy CAD/ PVD COPD/RLD as per records, not in acute exacerbation cirrhosis on imaging from past admission prostate cancer status post surgery Chronic anemia, hemoglobin better than baseline likely secondary to hemoconcentration cognitive impairment, patient mentating well inclusion body myositis as per records, patient to decide on steroid Rx recommendation from local neurologist following recent outpatient visit Hyperglycemia secondary to diabetes, hemoglobin A1c of 6.4 this admission Subclinical hypothyroidism , f/u TFT in 6 weeks past tobacco abuse. DVT prophylaxis. Coumadin INR goal between 2 and 3 Full code Patient's ex- Dyana was given a phone call and updated about patient's condition, answered all her questions. Text document was generated using [employer] voice recognition software. It may contain grammatical or spelling errors. Kindly contact undersigned for clarification of any documentation item in question. Admission and Anticipated Discharge Date Admission Date: November 19, 2024 Subjective Patient was seen and examined at bedside. Patient was lying in bed, on 2 L oxygen via nasal cannula, appears more alert and awake today. Patient is oriented x 3, had a small emesis in a.m. per RN. Patient not liking fluid per RN, patient's diet has been liberalized and patient has been encouraged to increase p.o. intake. Patient does have left lower anterior rib cage pain, will use lidocaine patch. Patient did fall prior to arrival. Physical Exam 2 Physical Exam: GENERAL: lethargic, ill-appearing, hard of hearing, no respiratory distress, on 2L NC O2. SKIN: Pallor, warm HEENT: Pale palpebral conjunctivae, no ptosis, moist buccal mucosa NECK : Supple, no tenderness CHEST : Decreased breath sounds, no tenderness HEART : RRR, systolic murmur ABDOMEN: Some distention, PD port noted EXTREMITIES : LE swelling without LE tenderness, no other conspicuous deformities noted NEUROLOGIC : Lethargic, no facial asymmetry, slightly hard of hearing, gait and stance not assessed Results & Data Results & Data Vital Signs (Past 12 Hours) Vital Signs Temp Pulse Pulse Resp BP Pulse Ox O2 Del Method 11/20/24 16:19 36.3 C L 51 L 18 99/59 L 94 Nasal Cannula 11/20/24 12:07 82 11/20/24 11:34 37.6 C H 80 18 118/64 91 Nasal Cannula 11/20/24 09:05 37 C 79 20 11/20/24 08:18 37 C 85 18 119/60 89 L Room Air 11/20/24 07:52 Room Air O2 Flow Rate 11/20/24 16:19 1.5 11/20/24 12:07 11/20/24 11:34 1.5 11/20/24 09:05 11/20/24 08:18 11/20/24 07:52
[2024-11-20] MEDS: LIDOCAINE 5% 1 PATCH TD SCH (17:18)
--- NOTE | 2024-11-20 18:49 | Nephrology Progress Note ---
Date of Service November 20, 2024 Assessment & Plan (1) Peritoneal dialysis status: Plan: -continue routine PD this evening; no ico inpatient unfortunately; else continue routine rx >> 14hr w/ 6 x 2.5 L fills alternating 1.5 (4 exchs) and 2.5% (2 exchs) bags I ordered fluid studies to evaluate for PD peritonitis since there was concern for sepsis >> no concern for peritonitis on these studies (2) Encephalopathy: Plan: resolved; ? lack of sleep ->>>>concern for early sepsis with elevated WBC, hypotension, altered MS, tachypnea on admission >> he is anuric so no point to UTI w/u; no PD peritonitis >>does have bacterial pneumonia and getting care for it (3) Accident due to mechanical fall without injury: Plan: follow up with primary service and when appropriate PT Admission and Anticipated Discharge Date Admission Date: November 19, 2024 Subjective seen on late afternoon rounds. has more coughing, more sob at times w/ moving. feels cold/chilled. no edema; no n/v. had issues w/ cycler overnight d/t slow drains; actually gained 600 mL Review of Systems 2 Review of Systems: All systems reviewed & are unremarkable except as noted in Subjective Physical Exam 2 Constitutional: well developed, well nourished and + in distress (mild w/ breathing ); no altered mental status Eyes: EOM intact bilaterally ENMT: Mouth: + dry oral mucous membranes Respiratory: + labored breathing, + cough, able to sp eak in complete sentences and + tachypneic Auscultation: + diminished lung sounds Cardiovascular: Rate/Rhythm: regular rate and regular rhythm Heart Sounds: + murmur Extremities: no edema Gastrointestinal (Abdomen): Inspection/Auscultation: normal bowel sounds and + abdominal surgical drain present (PD catheter) Percussion/Palpation: abdomen soft; abdomen nontender Musculoskeletal: Extremities: strength 5/5 throughout Skin: no rashes, warm and dry Results & Data Vital Signs (Past 12 Hours) Vital Signs Temp Pulse Pulse Resp BP Pulse Ox O2 Del Method 11/20/24 16:51 69 11/20/24 16:19 36.3 C L 51 L 18 99/59 L 94 Nasal Cannula 11/20/24 12:07 82 11/20/24 11:34 37.6 C H 80 18 118/64 91 Nasal Cannula 11/20/24 09:05 37 C 79 20 11/20/24 08:18 37 C 85 18 119/60 89 L Room Air 11/20/24 07:52 Room Air O2 Flow Rate 11/20/24 16:51 11/20/24 16:19 1.5 11/20/24 12:07 11/20/24 11:34 1.5 11/20/24 09:05 11/20/24 08:18 11/20/24 07:52 Laboratory Results 11/20/24 06:07 11/20/24 06:07
[2024-11-20] MEDS: LEVALBUTEROL 1.25 MG/3 ML NEB NEB PRN (22:43)
[2024-11-20] MEDS: guaiFENesin/DEXTROM SYRUP 100MG/10MG 5ML UDC PO PRN (22:53)
--- NOTE | 2024-11-21 01:02 | XRay Report ---
Exam(s): XR CXR 1 VIEW EXAM: XR Chest, 1 View CLINICAL HISTORY: Reason for exam: wheezing. TECHNIQUE: Frontal view of the chest. COMPARISON: 11/19/2024. FINDINGS: There is a poor inspiratory effort. Lungs: There are mild patchy bilateral infiltrates.. Pleural space: No pleural effusion is seen. No pneumothorax. Heart: The heart appears top normal in size.. Mediastinum: There is uncoiling of thoracic aorta.. Bones/joints: There are degenerative changes in the spine.. IMPRESSION: Limited exam. There are mild patchy bilateral infiltrates. Electronically signed by: Montana Sanchez MD 11/21/24 01:01 AM
[2024-11-21 06:31] LABS: Hematocrit (blood only) 28.8 % (42.0-52.0); Hemoglobin 10.1 g/dl (14.0-18.0); Mean Corpuscular Hemoglobin 30.6 pg (25.0-34.0); Mean Corpuscular Hgb Conc 35.1 g/dL (32.0-36.0); Mean Corpuscular Volume 87.3 fL (80.0-100.0); Mean Platelet Volume 10.9 fL (9.4-12.4); Platelet Count 166 K/uL (130-400); RDW Coefficient of Variation 15.9 % (11.5-14.5); RDW Standard Deviation 50.7 fL (36.4-46.3); White Blood Count 6.74 K/ul (4.8-10.8)
[2024-11-21 07:03] LABS: BUN Creatinine Ratio 5.3 (10-20); Calcium 7.8 mg/dl (8.6-10.3); Creatinine Clr Calc Pharmacy 9.5 ml/min; Magnesium 1.7 mg/dl (1.7-2.4); Phosphorus 3.9 mg/dl (2.5-4.9)
--- NOTE | 2024-11-21 09:55 | Nephrology Progress Note ---
Date of Service November 21, 2024 Assessment & Plan (1) Peritoneal dialysis status: Plan: -continue routine PD this evening but intensify UF; no ico inpatient unfortunately; else modified OP rx >> 14hr w/ 6 x 2.5 L fills alternating 2.5 (4 exchs) and 4.25% (2 exchs) bags >>we really need to get volume off overnight tonight; concern otherwise will need to change to HD or continue PD on daylight tomorrow w/ all red bags; have to balance hypotension here though it's rebounded somewhat admission fluid studies to evaluate for PD peritonitis since there was concern for sepsis show no peritonitis K low today and gave him 40 mEq po K x 1 (2) Encephalopathy: Plan: resolved; ? lack of sleep ->>>>concern for early sepsis with elevated WBC, hypotension, altered MS, tachypnea on admission >> he is anuric so no point to UTI w/u; no PD peritonitis >>does have bacterial pneumonia and getting care for it (3) Accident due to mechanical fall without injury: Plan: follow up with primary service and when appropriate PT Admission and Anticipated Discharge Date Admission Date: November 19, 2024 Subjective retained 200 mL on PD overnight; no alarms; did run over 16 hrs >> attrib to slow fills/drains (rx'd 14); 02 needs creeping up; minimal po; he's still exhausted; seen on evening rounds. Review of Systems 2 Review of Systems: All systems reviewed & are unremarkable except as noted in Subjective Physical Exam 2 Constitutional: well developed, well nourished and + in distress (mild w/ breathing ); no altered mental status Eyes: EOM intact bilaterally ENMT: Mouth: + dry oral mucous membranes Respiratory: + labored breathing (slight), + cough, a ble to speak in complete sentences and + tachypneic Auscultation: + diminished lung sounds and + wheezes (occasional) Cardiovascular: Rate/Rhythm: regular rate and regular rhythm Heart Sounds: + murmur Extremities: no edema Gastrointestinal (Abdomen): Inspection/Auscultation: normal bowel sounds and + abdominal surgical drain present (PD catheter) Percussion/Palpation: abdomen soft; abdomen nontender Musculoskeletal: Extremities: strength 5/5 throughout Skin: no rashes, warm and dry Results & Data Vital Signs (Past 12 Hours) Vital Signs Temp Pulse Pulse Resp BP Pulse Ox O2 Del Method 11/21/24 07:38 36.6 C 75 20 111/66 90 Nasal Cannula 11/21/24 03:46 37.1 C 64 18 121/65 94 Nasal Cannula 11/20/24 23:29 Nasal Cannula 11/20/24 23:19 36.9 C 73 16 134/82 91 Nasal Cannula 11/20/24 23:05 69 11/20/24 22:43 77 18 89 L Nasal Cannula O2 Flow Rate 11/21/24 07:38 3 11/21/24 03:46 3 11/20/24 23:29 3 11/20/24 23:19 2 11/20/24 23:05 11/20/24 22:43 2 Laboratory Results 11/21/24 06:03 11/21/24 06:03
--- NOTE | 2024-11-21 13:07 | Hospitalist Progress Note ---
Date of Service November 21, 2024 Assessment & Plan (1) Encephalopathy: Plan 79-year-old male with PMH of PE/A-fib on Coumadin, hypertrophic CM, CAD, PVD, hypotension on midodrine, COPD/RLD, ESRD on PD, esophageal achalasia, cirrhosis, prostate cancer status post surgery, MGUS, chronic anemia [baseline hemoglobin of 10-11], cognitive impairment, inclusion body myositis, past tobacco abuse who was recently admitted for COVID - 19 pneumonia/sp decdron Rx for 3-4 days/discharged to [facility] on room air presents w/ c/o increasing weakness, fall (no head trauma, witnessed fall). Pt looked SOB and shaky per H and temp elevation of 100F per H. Pt denied chest pain, LOC, abdominal pain. He is being managed for the following: Likely superimposed bacterial pneumonia: In the setting of recent infection due to COVID-19 virus. Severe sepsis POA: In the setting of pneumonia. WBC/lactate/respiratory rate elevated at presentation. s/p IVF, lactate normalized. Acute metabolic encephalopathy: likely 2/2 acute illness iso underlying cognitive impairment. Patient was recently admitted for infection due to COVID-19 virus, was observed on room air for 2 days prior to discharge. This time patient comes in with increasing weakness and lethargy and noted to be short of breath and shaky per [facility] with elevated temperature. CT chest with interval early bilateral pneumonia. Admitting NH3 level 15. Procal elevated, MRSA neg. peritoneal fluid analysis-no organism and wbc c/w zosyn 11/19 and doxy 11/19 De-escalate to p.o. antibiotic pending blood culture results. Plan to treat for 7 days. Hypotension, ho: Pt w/ chronic hypotension, takes midodrine. monitor. Troponin elevation: secondary to illness in the setting of chronic kidney dysfunction, history ESRD on PD. Pt denies chest pain. ESRD on PD: Nephrology on board, appreciate help. Other chronic medical conditions: Continue with/resume home meds as and when able. hx PE/A-fib (early TBS) on Coumadin, INR therapeutic hypertrophic cardiomyopathy CAD/ PVD COPD/RLD as per records, not in acute exacerbation cirrhosis on imaging from past admission prostate cancer status post surgery Chronic anemia, hemoglobin better than baseline likely secondary to hemoconcentration cognitive impairment, patient mentating well inclusion body myositis as per records, patient to decide on steroid Rx recommendation from local neurologist following recent outpatient visit Hyperglycemia secondary to diabetes, hemoglobin A1c of 6.4 this admission Subclinical hypothyroidism , f/u TFT in 6 weeks past tobacco abuse. DVT prophylaxis. Coumadin INR goal between 2 and 3 Full code Please note the above document was generated using voice recognition software. It may contain grammatical, syntax or spelling errors. Any formal questions or concerns about the content, text or information contained within the body of this dictation should be directly addressed to the provider for clarification Admission and Anticipated Discharge Date Admission Date: November 19, 2024 Subjective Patient seen and examined at bedside. He is awake, oriented to time and place. Reports that he is feeling much better No significant events overnight Review of Systems Review of Systems: All systems reviewed & are unremarkable except as noted in Subjective Physical Exam Physical Exam: GENERAL: Awake, alert oriented x 3. Not in distress. SKIN: Pallor, warm HEENT: Pale palpebral conjunctivae, no ptosis, moist buccal mucosa NECK : Supple, no tenderness CHEST :tenderness on chest wall on left lower chest HEART : RRR, systolic murmur ABDOMEN: Some distention, PD port noted EXTREMITIES : LE swelling without LE tenderness, no other conspicuous deformities noted Results & Data Results & Data Vital Signs (Past 12 Hours) Vital Signs Temp Pulse Resp BP Pulse Ox O2 Del Method O2 Flow Rate 11/21/24 11:46 37.2 C 77 24 129/69 93 Nasal Cannula 3 11/21/24 09:25 36.5 C 71 18 11/21/24 07:38 36.6 C 75 20 111/66 90 Nasal Cannula 3 11/21/24 03:46 37.1 C 64 18 121/65 94 Nasal Cannula 3
[2024-11-21] MEDS: POTASSIUM CHLORIDE 20 MEQ/15 ML UDC PO ONE (19:47)
[2024-11-22 07:42] LABS: Basophils # (auto) 0.01 K/uL (0.00-0.20); Basophils % (auto) 0.1 %; Eosinophils # (auto) 0.01 K/uL (0.00-0.50); Eosinophils % (auto) 0.1 %; Hemoglobin 10.8 g/dl (14.0-18.0); Immature Granulocytes # (auto) 0.04 K/uL (0.01-0.20); Immature Granulocytes % (auto) 0.5 %; Lymphocytes # (auto) 0.54 K/uL (1.20-3.40); Lymphocytes % (auto) 7.3 %; Mean Corpuscular Hemoglobin 30.2 pg (25.0-34.0); Mean Corpuscular Hgb Conc 34.8 g/dL (32.0-36.0); Mean Corpuscular Volume 86.6 fL (80.0-100.0); Mean Platelet Volume 10.5 fL (9.4-12.4); Monocytes # (auto) 0.31 K/uL (0.11-0.59); Monocytes % (auto) 4.2 %; Neutrophils % (auto) 87.8 %; Platelet Count 150 K/uL (130-400); RDW Coefficient of Variation 15.6 % (11.5-14.5); RDW Standard Deviation 49.1 fL (36.4-46.3); Red Blood Count 3.58 M/uL (4.70-6.10); White Blood Count 7.41 K/ul (4.8-10.8)
--- NOTE | 2024-11-22 08:02 | Hospitalist Progress Note ---
Date of Service November 22, 2024 Assessment & Plan (1) Encephalopathy: Plan 79-year-old male with PMH of PE/A-fib on Coumadin, hypertrophic CM, CAD, PVD, hypotension on midodrine, COPD/RLD, ESRD on PD, esophageal achalasia, cirrhosis, prostate cancer status post surgery, MGUS, chronic anemia [baseline hemoglobin of 10-11], cognitive impairment, inclusion body myositis, past tobacco abuse who was recently admitted for COVID - 19 pneumonia/sp decdron Rx for 3-4 days/discharged to [facility] on room air presents w/ c/o increasing weakness, fall (no head trauma, witnessed fall). Pt looked SOB and shaky per [facility] and temp elevation of 100F per H. Pt denied chest pain, LOC, abdominal pain. He is being managed for the following: Likely superimposed bacterial pneumonia: In the setting of recent infection due to COVID-19 virus. Severe sepsis POA: In the setting of pneumonia. WBC/lactate/respiratory rate elevated at presentation. s/p IVF, lactate normalized. Acute metabolic encephalopathy: likely 2/2 acute illness iso underlying cognitive impairment. Patient was recently admitted for infection due to COVID-19 virus, was observed on room air for 2 days prior to discharge. This time patient comes in with increasing weakness and lethargy and noted to be short of breath and shaky per [facility] with elevated temperature. CT chest with interval early bilateral pneumonia. Admitting NH3 level 15. Procal elevated, MRSA neg. peritoneal fluid analysis-no organism and wbc c/w zosyn 11/19 and doxy 11/19. wean oxygen as tolerated. Temperature elevated on November 22, 2023; blood culture obtained again. Added vancomycin. Continue on Zosyn and doxycycline. CXR ordered. Hypotension, ho: Pt w/ chronic hypotension, takes midodrine. monitor. Troponin elevation: secondary to illness in the setting of chronic kidney dysfunction, history ESRD on PD. Pt denies chest pain. ESRD on PD: Nephrology on board, appreciate help. Other chronic medical conditions: Continue with/resume home meds as and when able. hx PE/A-fib (early TBS) on Coumadin, supratherapeutic INR; hold coumadin. Hb stable. hypertrophic cardiomyopathy CAD/ PVD COPD/RLD as per records, not in acute exacerbation cirrhosis on imaging from past admission prostate cancer status post surgery Chronic anemia, hemoglobin better than baseline likely secondary to hemoconcentration cognitive impairment, patient mentating well inclusion body myositis as per records, patient to decide on steroid Rx recommendation from local neurologist following recent outpatient visit Hyperglycemia secondary to diabetes, hemoglobin A1c of 6.4 this admission Subclinical hypothyroidism , f/u TFT in 6 weeks past tobacco abuse. DVT prophylaxis. Coumadin INR goal between 2 and 3. supratherapeutic; coumadin on hold. Full code Discussed with patient's son and ex- over the phone. Updated on patient's current clinical situation. Her question and queries. Time spent evaluating patient, direct bedside care, chart review, placing orders, interpretation of diagnostic studies, discussion with consultants, patient, and family members, as well as other required patient management activities is 50 minutes Please note the above document was generated using voice recognition software. It may contain grammatical, syntax or spelling errors. Any formal questions or concerns about the content, text or information contained within the body of this dictation should be directly addressed to the provider for clarification Admission and Anticipated Discharge Date Admission Date: November 19, 2024 Subjective Patient seen and examined at bedside. He appears to be little more short of breath today Oxygen requirement has increased to 6 L/min Review of Systems Review of Systems: All systems reviewed & are unremarkable except as noted in Subjective Physical Exam Physical Exam: GENERAL: Awake, alert oriented x 3. Not in distress. SKIN: Pallor, warm HEENT: Pale palpebral conjunctivae, no ptosis, moist buccal mucosa NECK : Supple, no tenderness CHEST :tenderness on chest wall on left lower chest HEART : RRR, systolic murmur ABDOMEN: Some distention, PD port noted EXTREMITIES : LE swelling without LE tenderness, no other conspicuous deformities noted Results & Data Results & Data Vital Signs (Past 12 Hours) Vital Signs Temp Pulse Pulse Resp BP Pulse Ox O2 Del Method 11/22/24 07:52 36.5 C 76 20 11/22/24 07:43 37.7 C H 80 18 113/63 91 Nasal Cannula 11/22/24 05:50 74 11/22/24 03:50 37.1 C 72 18 129/63 91 Nasal Cannula 11/22/24 00:21 65 11/21/24 22:57 73 22 91 Nasal Cannula 11/21/24 22:55 36.3 C L 71 16 126/75 90 Nasal Cannula 11/21/24 22:24 Nasal Cannula O2 Flow Rate 11/22/24 07:52 11/22/24 07:43 6 11/22/24 05:50 11/22/24 03:50 6 11/22/24 00:21 11/21/24 22:57 6 11/21/24 22:55 11/21/24 22:24 5
[2024-11-22 08:08] LABS: Prothrombin Time 59.3 Seconds (9.0-12.0)
[2024-11-22 08:09] LABS: Creatinine Clr Calc Pharmacy 9.6 ml/min; Potassium 3.1 mmol/L (3.5-5.1)
[2024-11-22 08:21] LABS: INR 6.4 (0.9-1.1)
--- NOTE | 2024-11-22 10:13 | Dialysis Progress Note ---
Date of Service November 22, 2024 Assessment & Plan Admission and Anticipated Discharge Date Admission Date: November 19, 2024 Subjective Assessment & Plan (1) Peritoneal dialysis status: Plan: continue routine PD this evening . good UF overnight so will do same Rx tonight also. Modified OP rx >> 14hr w/ 6 x 2.5 L fills alternating 2.5 (4 exchs) and 4.25% (2 exchs) bags We really need to get volume off overnight tonight; concern otherwise will need to change to HD or continue PD on daylight tomorrow w/ all red bags; have to balance hypotension here though it's rebounded somewhat admission fluid studies to evaluate for PD peritonitis since there was concern for sepsis show no peritonitis K low today and gave him 80 mEq po today. (2) Encephalopathy: Plan: resolved. he is anuric so no point to UTI w/u; no PD peritonitis Does have bacterial pneumonia and getting care for it (3) Accident due to mechanical fall without injury: Plan: follow up with primary service and when appropriate PT Subjective Seen for PD---had 1800 ml UF overnight. did run over 16 hrs. Review of Systems Review of Systems: All systems reviewed & are unremarkable except as noted in Subjective Physical Exam Constitutional: well developed, well nourished and + in distress (mild w/ breathing ); no altered mental status Eyes: EOM intact bilaterally ENMT: Mouth: + dry oral mucous membranes Respiratory: + labored breathing (slight), + cough, a ble to speak in complete sentences and + tachypneic Auscultation: + diminished lung sounds and + wheezes (occasional) Cardiovascular: Rate/Rhythm: regular rate and regular rhythm Heart Sounds: + murmur Extremities: no edema Gastrointestinal (Abdomen): Inspection/Auscultation: normal bowel sounds and + abdominal surgical drain present (PD catheter) Percussion/Palpation: abdomen soft; abdomen nontender Musculoskeletal: Extremities: strength 5/5 throughout Skin: no rashes, warm and dry Results & Data Vital Signs (Past 12 Hours) Vital Signs Temp Pulse Pulse Resp BP Pulse Ox O2 Del Method 11/22/24 08:05 36.5 C 76 20 11/22/24 07:43 37.7 C H 80 18 113/63 91 Nasal Cannula 11/22/24 05:50 74 11/22/24 03:50 37.1 C 72 18 129/63 91 Nasal Cannula 11/22/24 00:21 65 11/21/24 22:57 73 22 91 Nasal Cannula 11/21/24 22:55 36.3 C L 71 16 126/75 90 Nasal Cannula 11/21/24 22:24 Nasal Cannula O2 Flow Rate 11/22/24 08:05 11/22/24 07:43 6 11/22/24 05:50 11/22/24 03:50 6 11/22/24 00:21 11/21/24 22:57 6 11/21/24 22:55 11/21/24 22:24 5
[2024-11-22] MEDS: POTASSIUM CHLORIDE CRTAB 20 MEQ TABCR PO STA (11:57)
[2024-11-22] MEDS ORDERED: VANCOMYCIN HCL 2,000 MG in SODIUM CHLORIDE 0.9% 500 ML IV ONE (12:03)
[2024-11-22] MEDS ORDERED: VANCOMYCIN CONSULT ACTIVE PRN (12:03)
--- NOTE | 2024-11-22 12:25 | XRay Report ---
XR chest 1V portable CLINICAL HISTORY: increasing oxygen requirement COMPARISON STUDY: 11/20/2024 FINDINGS: Stable mild cardiomegaly with mild pulmonary vascular congestion. Inspiration is shallow. T here is increased stranding opacity in the lung bases. No pleural effusion or pneumothorax seen. IMPRESSION: Increased atelectasis versus pneumonia in the lung bases. ACT 112: Negative or not required by law. Electronically signed by: Jose Ramon Lawrence M.D. 11/22/2024 12:23 PM
[2024-11-22] MEDS: VANCOMYCIN HCL 1,750 MG in SODIUM CHLORIDE 0.9% 500 ML IV ONE (12:41)
[2024-11-22 13:29] LABS: Adenovirus PCR Not Detected (NotDetected); Bordetella parapertussis PCR Not Detected (NotDetected); Bordetella pertussis PCR Not Detected (NotDetected); Chlamydia pneumoniae PCR Not Detected (NotDetected); Coronavirus 229E PCR Not Detected (NotDetected); Coronavirus CoV-2 (COVID19)PCR DETECTED (NotDetected); Coronavirus HKU1 PCR Not Detected (NotDetected); Coronavirus NL63 PCR Not Detected (NotDetected); Coronavirus OC43PCR Not Detected (NotDetected); Human Metapneumovirus PCR Not Detected (NotDetected); Influenza A PCR Not Detected (NotDetected); Influenza B PCR Not Detected (NotDetected); Mycoplasma pneumoniae PCR Not Detected (NotDetected); Parainfluenza Virus 1 PCR Not Detected (NotDetected); Parainfluenza Virus 2 PCR Not Detected (NotDetected); Parainfluenza Virus 3 PCR Not Detected (NotDetected); Parainfluenza Virus 4 PCR Not Detected (NotDetected); Respiratory Syncytial VirusPCR Not Detected (NotDetected); Rhinovirus/Enterovirus PCR Not Detected (NotDetected)
--- NOTE | 2024-11-22 15:08 | Pharmacy Report ---
Pharmacy PK ABX Note - Date of Service November 22, 2024 - Assessment and Plan Assessment 79 year old M receiving vancomycin/Zosyn for treatment of COVID-19 pneumonia with superimposed bacterial pneumonia. Pertinent microbiologic data includes: negative MRSA Nasal Swab, blood cultures 11/19 NG x48 hours, repeat blood cultures 11/22 pending. Patient has ESRD on peritoneal dialysis, peritoneal fluid analysis 11/19 <10 WBC. Monster has increased oxygen requirements today, WBC normal, and febrile with [id number] 38.4 C. Day # 1 of antimicrobial therapy. Plan Vancomycin * Loading dose: 1750 mg IV x 1 * Will dose further vancomycin per levels due to ESRD on PD * Random level ordered for: 11/23/23 with AM labs Pharmacy will continue to follow and will adjust dose/frequency as necessary. Thank you. Pharmacy has transitioned to AUC monitoring for vancomycin. AUC/ADE is the preferred PK/PD target and is associated with decreased risk of nephrotoxicity compared to traditional trough targets.
[2024-11-22] MEDS: ALBUT/IPRATROP 3MG/0.5MG NEB 3 ML VIAL NEB SCH (19:50)
[2024-11-22] MEDS: SODIUM CHLOR 7% 4 ML NEB NEB SCH (19:50)
[2024-11-23 05:57] LABS: Basophils # (auto) 0.01 K/uL (0.00-0.20); Basophils % (auto) 0.1 %; Eosinophils # (auto) 0.03 K/uL (0.00-0.50); Eosinophils % (auto) 0.4 %; Hematocrit (blood only) 30.8 % (42.0-52.0); Hemoglobin 10.6 g/dl (14.0-18.0); Immature Granulocytes # (auto) 0.04 K/uL (0.01-0.20); Immature Granulocytes % (auto) 0.5 %; Lymphocytes # (auto) 0.75 K/uL (1.20-3.40); Mean Corpuscular Hemoglobin 29.6 pg (25.0-34.0); Mean Corpuscular Hgb Conc 34.4 g/dL (32.0-36.0); Mean Platelet Volume 10.7 fL (9.4-12.4); Monocytes # (auto) 0.33 K/uL (0.11-0.59); Neutrophils # (auto) 7.17 K/uL (1.40-6.50); Platelet Count 153 K/uL (130-400); RDW Coefficient of Variation 15.4 % (11.5-14.5); RDW Standard Deviation 48.2 fL (36.4-46.3); Red Blood Count 3.58 M/uL (4.70-6.10); White Blood Count 8.33 K/ul (4.8-10.8)
[2024-11-23 06:18] LABS: BUN Creatinine Ratio 4.8 (10-20); Calcium 7.9 mg/dl (8.6-10.3); Creatinine Clr Calc Pharmacy 9.2 ml/min
[2024-11-23 06:24] LABS: Prothrombin Time 61.9 Seconds (9.0-12.0)
[2024-11-23 06:27] LABS: INR 6.8 (0.9-1.1)
[2024-11-23] MEDS ORDERED: POTASSIUM CHLORIDE CRTAB 20 MEQ TABCR PO STA (07:40)
[2024-11-23] MEDS ORDERED: Nursing to Pharmacy Communication SCH (07:45)
[2024-11-23] MEDS: POTASSIUM CHLORIDE PWD 20 MEQ PACK PO ONE (08:46)
[2024-11-23] MEDS: GENTAMICIN SULFATE 0.1% CR 15 GM TUBE EXT SCH (09:55)
--- NOTE | 2024-11-23 10:38 | XRay Report ---
XR chest 1V portable CLINICAL HISTORY: increasing oxygen requirment COMPARISON STUDY: 11/22/2024 FINDINGS: Stable cardiomegaly without pulmonary vascular congestion. Diffuse interstitial and faint p atchy pulmonary opacities most prominent at the left lung base are stable. No pleural effusion or pne umothorax. IMPRESSION: Stable exam. ACT 112: Negative or not required by law. Electronically signed by: Jose Ramon Lawrence M.D. 11/23/2024 10:36 AM
--- NOTE | 2024-11-23 10:53 | Dialysis Progress Note ---
Date of Service November 23, 2024 Assessment & Plan Admission and Anticipated Discharge Date Admission Date: November 19, 2024 Subjective Assessment & Plan (1) Peritoneal dialysis status: Plan: continue routine PD this evening . good UF overnight so will do same Rx tonight also. Modified OP rx >> 14hr w/ 6 x 2.5 L fills alternating 2.5 (4 exchs) and 4.25% (2 exchs) bags We really need to get volume off overnight tonight; concern otherwise will need to change to HD or continue PD on daylight tomorrow w/ all red bags; have to balance hypotension here though it's rebounded somewhat admission fluid studies to evaluate for PD peritonitis since there was concern for sepsis show no peritonitis K low today again despite getting 80 meq yesterday. Will give him 160 meq today. write for 80 bid. His Condition is declining. Now on BIpap. UF did not seem to make much difference--had 1800 ml and then 1500 ml yesterday. Will do Maxed out UF with all 4.25% solution today. I feel the Pulmonary Component is more important here than fluid Overload. pending Pulmonary consult. reviewed CT chest Showing Ground glass opacities b/l with Covid. (2) Encephalopathy: Plan: resolved. he is anuric so no point to UTI w/u; no PD peritonitis Does have bacterial pneumonia and getting care for it (3) Accident due to mechanical fall without injury: Plan: follow up with primary service and when appropriate PT Subjective Seen for PD---had 1500 ml UF overnight. His Condition is declining. Now on BIpap. UF did not seem to make much difference. Review of Systems Review of Systems: All systems reviewed & are unremarkable except as noted in Subjective Physical Exam Constitutional: well developed, well nourished and + in distress (mild w/ breathing ); no altered mental status Eyes: EOM intact bilaterally ENMT: Mouth: + dry oral mucous membranes Respiratory: + labored breathing (slight), + cough, a ble to speak in complete sentences and + tachypneic Auscultation: + diminished lung sounds and + wheezes (occasional) Cardiovascular: Rate/Rhythm: regular rate and regular rhythm Heart Sounds: + murmur Extremities: no edema Gastrointestinal (Abdomen): Inspection/Auscultation: normal bowel sounds and + abdominal surgical drain present (PD catheter) Percussion/Palpation: abdomen soft; abdomen nontender Musculoskeletal: Extremities: strength 5/5 throughout Skin: no rashes, warm and dry Results & Data Vital Signs (Past 12 Hours) Vital Signs Temp Pulse Pulse Pulse Resp BP Pulse Ox 11/23/24 09:30 80 23 95 11/23/24 09:24 74 23 95 11/23/24 08:25 36.4 C L 68 18 11/23/24 07:34 36.4 C L 70 18 98/61 L 91 11/23/24 05:45 68 11/23/24 03:35 36.4 C L 72 20 112/69 90 O2 Del Method O2 Flow Rate FiO2 11/23/24 09:30 BiPAP 75 11/23/24 09:24 75 11/23/24 08:25 11/23/24 07:34 Nasal Cannula 6 11/23/24 05:45 11/23/24 03:35 Nasal Cannula 6
[2024-11-23 11:59] LABS: iSTAT Arterial Blood Gas HCO3 24 meg/L (19-24); iSTAT Arterial Blood Gas pCO2 29 mmHg (35-46); iSTAT Arterial Blood Gas pH 7.52 (7.35-7.45); iSTAT Arterial Blood Gas pO2 63 mmHg (80-95); iSTAT Carbon Dioxide 25 mmol/L (24-31); iSTAT Hematocrit 30 % (42-52); iSTAT Hemoglobin 10.2 g/dl (14.0-18.0); iSTAT Sodium 132 mmol/L (135-144)
[2024-11-23] MEDS ORDERED: methylPREDNISolone 125 MG/2 ML VIAL IV SCH (12:15)
[2024-11-23] MEDS: REMDESIVIR 200 MG in SODIUM CHLORIDE 0.9% 210 ML IV STA (12:53)
[2024-11-23] MEDS: methylPREDNISolone 40 MG in SYRINGE 0 ML IV SCH (13:14)
[2024-11-23] MEDS: DEXAMETHASONE SOD INJ 4 MG/ML VIAL IV ONE (13:14)
--- NOTE | 2024-11-23 13:35 | Hospitalist Progress Note ---
Date of Service November 23, 2024 Assessment & Plan (1) Encephalopathy: Plan 79-year-old male with PMH of PE/A-fib on Coumadin, hypertrophic CM, CAD, PVD, hypotension on midodrine, COPD/RLD, ESRD on PD, esophageal achalasia, cirrhosis, prostate cancer status post surgery, MGUS, chronic anemia [baseline hemoglobin of 10-11], cognitive impairment, inclusion body myositis, past tobacco abuse who was recently admitted for COVID - 19 pneumonia/sp decdron Rx for 3-4 days/discharged to [facility] on room air presents w/ c/o increasing weakness, fall (no head trauma, witnessed fall). Pt looked SOB and shaky per [facility] and temp elevation of 100F per H. Pt denied chest pain, LOC, abdominal pain. He is being managed for the following: Severe sepsis POA: In the setting of pneumonia. WBC/lactate/respiratory rate elevated at presentation. s/p IVF, lactate normalized. Acute metabolic encephalopathy: likely 2/2 acute illness iso underlying cognitive impairment. Pneumonia Acute hypoxic respiratory failure Patient was recently admitted for infection due to COVID-19 virus, was observed on room air for 2 days prior to discharge. This time patient comes in with increasing weakness and lethargy and noted to be short of breath and shaky per [facility] with elevated temperature. CT chest with interval early bilateral pneumonia Compared to CT chest on 11/12 peritoneal fluid analysis-no organism and wbc Continue BiPAP as needed; pulmonology consulted for recommendation. ABG reviewed; added dexamethasone 6 mg once a day Continue on Zosyn and doxycycline for total of 7 days Blood culture obtained on 11/22/2023 pending; also on vancomycin until blood cultures are negative. Hypotension, ho: Pt w/ chronic hypotension, takes midodrine. monitor. Troponin elevation: secondary to illness in the setting of chronic kidney dysfunction, history ESRD on PD. Pt denies chest pain. ESRD on PD: Nephrology on board, appreciate help. Other chronic medical conditions: Continue with/resume home meds as and when able. hx PE/A-fib (early TBS) on Coumadin, supratherapeutic INR; hold coumadin. Hb stable. hypertrophic cardiomyopathy CAD/ PVD COPD/RLD as per records, not in acute exacerbation cirrhosis on imaging from past admission prostate cancer status post surgery Chronic anemia, hemoglobin better than baseline likely secondary to hemoconcentration cognitive impairment, patient mentating well inclusion body myositis as per records, patient to decide on steroid Rx recommendation from local neurologist following recent outpatient visit Hyperglycemia secondary to diabetes, hemoglobin A1c of 6.4 this admission Subclinical hypothyroidism , f/u TFT in 6 weeks past tobacco abuse. DVT prophylaxis. Coumadin INR goal between 2 and 3. supratherapeutic; coumadin on hold. Full code Discussed with patient's son/POA over the phone and at bedside. Patient had significant clinical deterioration last 48 hours; I discussed with patient may need mechanical ventilation if his oxygenation continues to worsen. CODE STATUS discussed; patient is full code. Time spent evaluating patient, direct bedside care, chart review, placing orders, interpretation of diagnostic studies, discussion with consultants, patient, and family members, as well as other required patient management activities is 75 minutes Please note the above document was generated using voice recognition software. It may contain grammatical, syntax or spelling errors. Any formal questions or concerns about the content, text or information contained within the body of this dictation should be directly addressed to the provider for clarification Admission and Anticipated Discharge Date Admission Date: November 19, 2024 Subjective Patient was seen multiple times during the day today. In the a.m., he was awake, interactive; was requiring 6 L of oxygen via nasal cannula. Later in the afternoon, patient's oxygen requirement gradually increased requiring BiPAP. ABG showed pH of 7.52, pCO2 of 29 mmHg and PaO2 of 63 mmHg. Chest x-ray was also obtained no significant change compared to chest x-ray from previous day Discussed with pulmonology; started on dexamethasone 6 mg once a day Review of Systems Review of Systems: All systems reviewed & are unremarkable except as noted in Subjective Physical Exam Physical Exam: GENERAL:Awake, oriented to self and place. Not in distress. SKIN: Pallor, warm HEENT: Pale palpebral conjunctivae, no ptosis, moist buccal mucosa NECK : Supple, no tenderness CHEST :tenderness on chest wall on left lower chest. Bilateral crackles heard HEART : RRR, systolic murmur ABDOMEN: Some distention, PD port noted EXTREMITIES : LE swelling without LE tenderness, no other conspicuous deformities noted Results & Data Results & Data Vital Signs (Past 12 Hours) Vital Signs Temp Pulse Pulse Pulse Resp BP Pulse Ox 11/23/24 11:13 11/23/24 09:30 80 23 95 11/23/24 09:24 74 23 95 11/23/24 08:25 36.4 C L 68 18 11/23/24 07:34 36.4 C L 70 18 98/61 L 91 11/23/24 05:45 68 11/23/24 03:35 36.4 C L 72 20 112/69 90 O2 Del Method O2 Flow Rate FiO2 11/23/24 11:13 BiPAP 11/23/24 09:30 BiPAP 75 11/23/24 09:24 75 11/23/24 08:25 11/23/24 07:34 Nasal Cannula 6 11/23/24 05:45 11/23/24 03:35 Nasal Cannula 6
--- NOTE | 2024-11-23 16:25 | Pulmonary Consultation ---
Date of Consultation November 23, 2024 Assessment & Plan (1) Viral pneumonia: Patient with evolving viral pneumonia secondary to COVID-19 and likely postinflammatory changes. Also likely with a component of pulmonary edema and aspiration pneumonitis. Agree with dexamethasone. No role for remdesivir as he is currently out of the window for antiviral therapy. Will check a CRP and consider higher dose dexamethasone depending on CRP. Thromboemboli less likely at this point as the patient was supratherapeutic with warfarin. (2) ARDS (adult respiratory distress syndrome): Patient developing altered secondary to viral pneumonia, aspiration pneumonitis and pulmonary edema. Discussed options moving forward including the potential need for mechanical ventilation. Patient's son who is the POA currently would like to pursue a trial of intubation or mechanical ventilation should he develop worsening respiratory failure. At this time, we will continue with as needed NIV and supplemental oxygen. Will attempt efforts at semiproning as much as possible. Full on proning will be difficult given the patient's peritoneal hemodialysis. (3) Acute hypoxic respiratory failure: Hypoxemic respiratory failure secondary to viral pneumonia, aspiration pneumonitis and pulmonary edema. Check BNP as noted above. Obtain echocardiogram to evaluate for cardiac abnormalities. Maintain euvolemia. Patient to be transferred to PCU status by hospitalist for better nursing patient ratio. Patient may require transfer to ICU if he continues to decline. (4) Chronic hypotension: Patient with chronic hypotension currently on midodrine. Hypotension likely related to peritoneal dialysis. Plan Discussed with the patient's bedside RN, RT, hospitalist and patient's son extensively. Patient aware of the plan and in agreement. Pulmonary to continue to follow. History of Present Illness Reason for Consultation: Hypoxemic respiratory failure Attending Physician: Casimiro Fish MD History of Present Illness 79-year-old male with a history of hypertension, end-stage renal disease on peritoneal dialysis, hypothyroidism, chronic hypotension, atrial flutter on warfarin and previous tobacco abuse (quit 3 years ago and smoked cigars for about 20 years) who presented to the hospital due to increasing lethargy. Most history is obtained from the patient's son as the patient is currently on BiPAP and very hard of hearing. Patient's son reports that the patient has had numerous hospitalizations over the past 2 months related to hypotension, peritonitis and most recently viral pneumonia. Patient and patient's son deny any history of prior lung disease that he was aware of. He had a CT this admission which revealed upper lobe predominant paraseptal and centrilobular emphysema, multifocal groundglass opacities and bibasilar atelectasis. Chest x- ray today revealed bilateral interstitial infiltrates and a chronically raised right hemidiaphragm. Patient originally tested positive for COVID-19 11/12/2024 and then retest 11/22/2024 also revealed COVID-19. MRSA screen this admission was negative. Patient currently on Zosyn and doxycycline per the hospitalist service. Dexamethasone 6 mg daily restarted today. There was concern the patient had a mild aspiration event on water today and subsequently became hypoxemic requiring BiPAP support at times and is currently now 10l oxy mask. Allergies Allergy/AdvReac Type Severity Reaction Status Date / Time No Known Allergies Allergy Verified 11/12/24 22:14 Home Medications Medication Instructions Recorded Confirmed Type amiodarone 200 mg tablet 200 mg PO DAILY 10/16/24 11/19/24 History metoprolol succinate 25 mg 25 mg PO DAILY 10/16/24 11/19/24 History tablet,extended release 24 hr midodrine 2.5 mg tablet 2.5 mg PO AMPM 10/16/24 11/19/24 History warfarin 2 mg tablet 2 mg PO DAILY 10/19/24 11/19/24 History docusate sodium 100 mg capsule 100 mg PO BID #60 caps 10/21/24 11/19/24 Rx polyethylene glycol 3350 17 gram 17 g PO DAILY PRN constipation #30 10/21/24 11/19/24 Rx oral powder packet (Miralax) ea Lactobacillus acidophilus 1 tab PO DAILY 11/12/24 11/19/24 History Renal Multivit W/1mg Or <Fa 1 tab PO DAILY 11/12/24 11/19/24 History acetaminophen 500 mg tablet 500 mg PO Q6H 11/12/24 11/19/24 History cholecalciferol (vitamin D3) 50 50 mcg PO DAILY 11/12/24 11/19/24 History mcg (2,000 unit) capsule (Vitamin D3) gentamicin 0.1 % topical cream 1 applic topical DAILY 11/12/24 11/19/24 History lanolin alcohols-mineral 1 applic topical UD PRN SKIN CARE 11/12/24 11/19/24 History oil-w.petrolatum-ceresin topical cream (Eucerin topical cream) maltodextrin 1 ea PO QAM PRN Constipation 11/12/24 11/19/24 History menthol 0.44 %-zinc oxide 20.6 % 1 applic topical DAILY 11/12/24 11/19/24 History topical ointment (Calmoseptine) metoprolol tartrate 25 mg tablet 25 mg PO DAILY PRN HR > 100 @ REST 11/12/24 11/19/24 History pantoprazole 40 mg tablet,delayed 40 mg PO DAILY 11/12/24 11/19/24 History release doxycycline hyclate 100 mg capsule 100 mg PO BID 6 days #12 caps 11/15/24 11/19/24 Rx Patient History Medical History CAP (community acquired pneumonia) Hypotension ESRD on peritoneal dialysis Renal cyst 3.9 cm cystic lesion-L Paroxysmal A-fib listed in [facility] records CAD (coronary artery disease) PVD (peripheral vascular disease) Dysphagia Anemia Pulmonary nodule MGUS (monoclonal gammopathy of unknown significance) follows with [facility] heme/onc LBBB (left bundle branch block) Hearing deficit Surgical History History of appendectomy History of tooth extraction all teeth removed History of bilateral cataract extraction History of prostatectomy Family History Father Diabetes Other No family history of adverse response to anesthesia Social History Smoking Status: Former smoker Tobacco Type: Cigarettes Second Hand Exposure: No; Do You Dip or Chew Tobacco: No; Hx Alcohol Use: No Hx Substance Use: No Preferred Language: [place] Communication Ability: Effective [employer] Required: No Beliefs That Will Affect Care: None Current [facility] Situation[facility] Current Living Situation Comment: lives at facility Feels Safe at Home: Yes Assistive Devices: Walker Review of Systems Review of Systems: All systems reviewed & are unremarkable except as noted in HPI & below Physical Exam Physical Exam: Constitutional: Patient appears to be of their stated age. Patient is in no apparent distress. Patient is well-developed. Eyes: Pupils are equal round and reactive to light. Conjunctivae are normal. Anicteric sclera. Ears nose, mouth and throat: Mallampati class 2. Normal posterior oropharynx. Uvula is midline. Neck: Trachea is midline. Visual inspection is normal. Respiratory: Mild tachypnea. Crackles noted greater on the left and on the right. Mildly prolonged phase of exhalation. No wheezes. Cardiovascular: Regular rate and rhythm. No murmurs. No edema. Gastrointestinal: Normal bowel sounds, soft, nontender and nondistended. No hepatosplenomegaly noted. Musculoskeletal: No cyanosis. Patient is able to move all extremities. Strength is 5 out of 5 in the upper and lower extremities. Skin: No rashes, warm dry and intact. Neurologic: No obvious focal neurological deficits seen. Hard of hearing. Psychiatric: Alert and oriented x3 with a euthymic affect. Results & Data Results & Data Vital Signs (Past 12 Hours) Vital Signs Temp Pulse Pulse Pulse Resp BP Pulse Ox 11/23/24 13:24 88 32 H 95 11/23/24 11:13 11/23/24 09:30 80 23 95 11/23/24 09:24 74 23 95 11/23/24 08:25 36.4 C L 68 18 11/23/24 07:34 36.4 C L 70 18 98/61 L 91 11/23/24 05:45 68 O2 Del Method O2 Flow Rate FiO2 11/23/24 13:24 55 11/23/24 11:13 BiPAP 11/23/24 09:30 BiPAP 75 11/23/24 09:24 75 11/23/24 08:25 11/23/24 07:34 Nasal Cannula 6 11/23/24 05:45 PG Care Time/CCT Total # of Minutes Spent Total Time Spent with Patient: Total time spent is greater than 50% in coordination of care (as documented) at patient's floor/unit and/or counseling patient: Coding Level of Care Code 67218 INT INP/OBS CARE MIN Diagnoses Viral pneumonia J12.9 ARDS (adult respiratory distress syndrome) J80 Acute hypoxic respiratory failure J96.01 Chronic hypotension I95.89
[2024-11-23 20:52] LABS: BUN Creatinine Ratio 5.4 (10-20); Calcium 8.2 mg/dl (8.6-10.3); Creatinine Clr Calc Pharmacy 8.6 ml/min; Magnesium 1.5 mg/dl (1.7-2.4); Potassium 4.1 mmol/L (3.5-5.1)
[2024-11-23] MEDS ORDERED: GLUCOSE 40% GEL 15 GM TUBE PO PRN (20:59)
[2024-11-23] MEDS ORDERED: GLUCAGON FOR INJ 1 MG VIAL SQ PRN (20:59)
[2024-11-23] MEDS ORDERED: GLUCOSE 10 TAB/TUBE PO PRN (20:59)
[2024-11-23] MEDS ORDERED: DEXTROSE 50% 50 ML SYRINGE IV PRN (20:59)
[2024-11-23] MEDS: MAGNESIUM SULFATE / D5W 1 GM/100 ML BAG IV SCH (21:48)
[2024-11-23] MEDS: INSULIN ASPART PER UNIT CHARGE SC SCH (21:55)
[2024-11-23] MEDS: INSULIN HUMAN REGULAR PER UNIT 4 UNITS in SYRINGE 3.96 ML IV STA (22:20)
[2024-11-24] MEDS ORDERED: PHARMACY GLYCEMIC MGMT CONSULT PRN (00:08)
[2024-11-24] MEDS ORDERED: INSULIN PROTOCOL GOAL RANGE ONE (00:09)
[2024-11-24] MEDS ORDERED: MODERATE STRESS LEVEL ONE (00:09)
[2024-11-24] MEDS ORDERED: STAT IV Infusion **Titration per Protocol STA (00:09)
[2024-11-24] MEDS ORDERED: INSULIN REGULAR 250 UNITS in SODIUM CHLORIDE 0.9% 247.5 ML IV SCH (00:15)
[2024-11-24] MEDS: INSULIN HUMAN REGULAR PER UNIT 7 UNITS in SYRINGE 6.93 ML IV ONE (00:43)
[2024-11-24] MEDS: LANTUS PER UNIT CHARGE SC ONE (00:43)
[2024-11-24] MEDS: INSULIN ASPART PER UNIT CHARGE SC SCH (00:43)
[2024-11-24] MEDS: SODIUM CHLORIDE 0.9% 250 ML IV ONE (03:17)
[2024-11-24 03:45] LABS: iSTAT Allen Test Pass; iSTAT Art Bld Gas pCO2 Correct 20 mmHg (35-46); iSTAT Arterial Blood Gas HCO3 18 meg/L (19-24); iSTAT Arterial Blood Gas pCO2 21 mmHg (35-46); iSTAT Arterial Blood Gas pH 7.54 (7.35-7.45); iSTAT Arterial Blood Gas pO2 68 mmHg (80-95); iSTAT Arterial Blood Gas pO2 C 64; iSTAT Carbon Dioxide 18 mmol/L (24-31); iSTAT FiO2 50 %; iSTAT Hematocrit 35 % (42-52); iSTAT Hemoglobin 11.9 g/dl (14.0-18.0); iSTAT Potassium 2.4 mmol/L (3.3-5.0); iSTAT Sample Type Arterial; iSTAT Site R Radial; iSTAT Sodium 136 mmol/L (135-144); iSTAT SpO2 94
[2024-11-24 04:03] LABS: Hematocrit (blood only) 34.9 % (42.0-52.0); Mean Corpuscular Hemoglobin 29.8 pg (25.0-34.0); Mean Corpuscular Hgb Conc 34.4 g/dL (32.0-36.0); Mean Corpuscular Volume 86.6 fL (80.0-100.0); Mean Platelet Volume 11.4 fL (9.4-12.4); Platelet Count 190 K/uL (130-400); RDW Coefficient of Variation 15.6 % (11.5-14.5); RDW Standard Deviation 49.4 fL (36.4-46.3); Red Blood Count 4.03 M/uL (4.70-6.10); White Blood Count 12.25 K/ul (4.8-10.8)
[2024-11-24 04:18] LABS: Echinocytes 1+; Immature Granulocytes # (auto) 0.06 K/uL (0.01-0.20); Immature Granulocytes % (auto) 0.5 %; Lymphocytes # (auto) 0.37 K/uL (1.20-3.40); Monocytes # (auto) 0.29 K/uL (0.11-0.59); Monocytes % (auto) 2.4 %; Neutrophils # (auto) 11.53 K/uL (1.40-6.50); Neutrophils % (auto) 94.1 %
[2024-11-24 04:33] LABS: INR 3.9 (0.9-1.1); Prothrombin Time 37.2 Seconds (9.0-12.0)
[2024-11-24 04:37] LABS: BUN Creatinine Ratio 5.7 (10-20); Calcium 8.8 mg/dl (8.6-10.3); Creatinine Clr Calc Pharmacy 9.1 ml/min; Potassium 2.7 mmol/L (3.5-5.1); Thyroid Stimulating Hormone 3.216 uIu/ml (0.300-4.500)
[2024-11-24 05:03] LABS: Magnesium 2.1 mg/dl (1.7-2.4)
[2024-11-24] MEDS: POTASSIUM CHLORIDE / WTR 10 MEQ/100 ML PLCT IV SCH (05:05)
[2024-11-24] MEDS: LORazepam 0.5 MG TAB PO STA (05:17)
[2024-11-24] MEDS: POTASSIUM CHLORIDE CRTAB 20 MEQ TABCR PO STA (05:46)
[2024-11-24] MEDS ORDERED: INSULIN ASPART PER UNIT CHARGE SC SCH (07:30)
[2024-11-24] MEDS: dexAMETHasone 6 MG in SYRINGE 0 ML IV SCH (08:47)
[2024-11-24] MEDS ORDERED: DEXAMETHASONE SOD INJ 4 MG/ML VIAL IV SCH (09:00)
--- NOTE | 2024-11-24 09:05 | Electrocardiogram Report ---
Test Reason : Blood Pressure : */* mmHG Vent. Rate : 120 BPM Atrial Rate : 122 BPM P-R Int : 120 ms QRS Dur : 114 ms QT Int : 282 ms P-R-T Axes : 25 -74 16 degrees QTcB Int : 398 ms Probable Atrial flutter Left axis deviation Low voltage QRS Right bundle branch block Old Inferior infarct When compared with ECG of 18-Nov-2024 23:51, HR has increased by 25 bpm Probable Atrial flutter now present Confirmed by Humberto Perez [id number]) on 11/24/2024 9:05:09 AM Referred By: REFERRED SELF Confirmed By: Humberto Perez
--- NOTE | 2024-11-24 10:04 | Nephrology Progress Note ---
Date of Service November 24, 2024 Assessment & Plan Admission and Anticipated Discharge Date Admission Date: November 19, 2024 Subjective Assessment & Plan (1) Peritoneal dialysis status: 2 resp failure with Hypoxia. Plan: continue routine PD this evening . good UF overnight so will do same Rx tonight also. Modified OP rx >> 14hr w/ 6 x 2.5 L fills alternating 2.5 (4 exchs) and 4.25% (2 exchs) bags We really need to get volume off overnight tonight; concern otherwise will need to change to HD or continue PD on daylight tomorrow w/ all red bags; have to balance hypotension here though it's rebounded somewhat admission fluid studies to evaluate for PD peritonitis since there was concern for sepsis show no peritonitis K low today again despite getting 80 meq yesterday. Will give him 160 meq today. write for 80 bid. His Condition is declining. Now on BIpap. UF did not seem to make much difference--had 1800 ml and then 1500 ml and then even more yesterday of 2.5 liters Will do Maxed out UF with all 4.25% solution today also. I feel the Pulmonary Component is more important here than fluid Overload. Discussed with ICU--about potentially doing hemodialysis with new HD catheter. However unlikely we will be able to take 2.5 kilo each day even with hemo given his BP is low. HD with UF is more challenging from hemodynamics standpoint than gentle PD. Also he can be made prone all day. even when PD is on he can be prone if the system works and does not alarm. reviewed CT chest Showing Ground glass opacities b/l with Covid. Reviewed Pulm COnsult note--Developing ARDS now and has been transferred to ICU (2) Encephalopathy: Plan: resolved. he is anuric so no point to UTI w/u; no PD peritonitis Does have bacterial pneumonia and getting care for it Subjective Seen for PD---had 2500 ml UF overnight. His Condition is declining and in ICU now and Now on BIpap. UF did not seem to make much difference with resp failure.. Review of Systems Review of Systems: All systems reviewed & are unremarkable except as noted in Subjective Physical Exam Constitutional: well developed, well nourished and + in distress (mild w/ breathing ); no altered mental status Eyes: EOM intact bilaterally ENMT: Mouth: + dry oral mucous membranes Respiratory: + labored breathing (slight), + cough, a ble to speak in complete sentences and + tachypneic Auscultation: + diminished lung sounds and + wheezes (occasional) Cardiovascular: Rate/Rhythm: regular rate and regular rhythm Heart Sounds: + murmur Extremities: no edema Gastrointestinal (Abdomen): Inspection/Auscultation: normal bowel sounds and + abdominal surgical drain present (PD catheter) Percussion/Palpation: abdomen soft; abdomen nontender Musculoskeletal: Extremities: strength 5/5 throughout Skin: no rashes, warm and dry Results & Data Vital Signs (Past 12 Hours) Vital Signs Temp Pulse Pulse Resp BP BP Pulse Ox 11/24/24 08:00 36.6 C 84 22 98/60 L 96 11/24/24 07:11 85 19 94 11/24/24 05:48 35.7 C L 100 H 42 H 94 11/24/24 05:48 103/72 11/24/24 05:43 94/64 L 11/24/24 05:43 94/64 L 11/24/24 05:39 35.9 C L 105 H 34 H 97 11/24/24 05:28 97/67 L 11/24/24 05:27 35.9 C L 101 H 36 H 97 11/24/24 04:54 35.9 C L 93 H 26 H 96 11/24/24 04:53 109/78 11/24/24 04:23 97/80 L 11/24/24 04:21 35.9 C L 127 H 27 H 95 11/24/24 04:08 102/74 11/24/24 04:06 35.8 C L 101 H 29 H 97 11/24/24 03:54 35.8 C L 110 H 18 97 11/24/24 03:53 85/73 L 11/24/24 03:53 85/73 L 11/24/24 03:53 85/73 L 11/24/24 03:48 85/68 L 11/24/24 03:45 110 H 28 H 94 11/24/24 03:43 96/68 L 11/24/24 03:39 35.8 C L 106 H 24 95 11/24/24 03:38 102/74 11/24/24 03:33 96/71 L 11/24/24 03:28 89/61 L 11/24/24 03:24 36.0 C L 129 H 40 H 97 11/24/24 03:23 95/66 L 11/24/24 03:18 89/64 L 11/24/24 03:18 89/64 L 11/24/24 03:16 70/57 L 11/24/24 03:12 96/67 L 11/24/24 03:12 96/67 L 11/24/24 03:12 36.4 C L 129 H 32 H 96 11/24/24 03:10 73/60 L 11/24/24 03:09 36.4 C L 122 H 34 H 96 11/24/24 03:08 68/50 L 11/24/24 03:07 68/52 L 11/24/24 03:00 36.4 C L 97 H 34 H 95 11/24/24 02:26 89 22 99 11/24/24 01:35 84 11/24/24 00:36 36.5 C 79 23 92 11/24/24 00:23 108/70 11/23/24 23:49 78 21 93 O2 Del Method O2 Flow Rate FiO2 11/24/24 08:00 Oxymask 15 11/24/24 07:11 Oxymask 11/24/24 05:48 11/24/24 05:48 11/24/24 05:43 11/24/24 05:43 11/24/24 05:39 11/24/24 05:28 11/24/24 05:27 11/24/24 04:54 11/24/24 04:53 11/24/24 04:23 11/24/24 04:21 11/24/24 04:08 11/24/24 04:06 11/24/24 03:54 11/24/24 03:53 11/24/24 03:53 11/24/24 03:53 11/24/24 03:48 11/24/24 03:45 50 11/24/24 03:43 11/24/24 03:39 11/24/24 03:38 11/24/24 03:33 11/24/24 03:28 11/24/24 03:24 11/24/24 03:23 11/24/24 03:18 11/24/24 03:18 11/24/24 03:16 11/24/24 03:12 11/24/24 03:12 11/24/24 03:12 11/24/24 03:10 11/24/24 03:09 11/24/24 03:08 11/24/24 03:07 11/24/24 03:00 11/24/24 02:26 50 11/24/24 01:35 11/24/24 00:36 11/24/24 00:23 11/23/24 23:49 50
--- NOTE | 2024-11-24 10:15 | XRay Report ---
XR chest 1V portable CLINICAL HISTORY: f/u COMPARISON STUDY: 11/23/2024 FINDINGS: Heart size and pulmonary vasculature are normal. There is mild stranding opacity in the walt g bases, improved. No pneumothorax. IMPRESSION: Mild stranding opacity in the lung bases, improved. ACT 112: Negative or not required by law. Electronically signed by: Jose Ramon Lawrence M.D. 11/24/2024 10:13 AM
[2024-11-24] MEDS ORDERED: REMDESIVIR 100 MG in SODIUM CHLORIDE 0.9% 230 ML IV SCH (12:00)
[2024-11-24 13:33] LABS: BUN Creatinine Ratio 5.5 (10-20); Calcium 8.7 mg/dl (8.6-10.3); Creatinine Clr Calc Pharmacy 8.9 ml/min; Magnesium 2.1 mg/dl (1.7-2.4); Potassium 3.6 mmol/L (3.5-5.1)
--- NOTE | 2024-11-24 14:24 | Hospitalist Progress Note ---
Date of Service November 24, 2024 Assessment & Plan (1) Encephalopathy: Plan 79-year-old male with PMH of PE/A-fib on Coumadin, hypertrophic CM, CAD, PVD, hypotension on midodrine, COPD/RLD, ESRD on PD, esophageal achalasia, cirrhosis, prostate cancer status post surgery, MGUS, chronic anemia [baseline hemoglobin of 10-11], cognitive impairment, inclusion body myositis, past tobacco abuse who was recently admitted for COVID - 19 pneumonia/sp decdron Rx for 3-4 days/discharged to [facility] on room air presents w/ c/o increasing weakness, fall (no head trauma, witnessed fall). Pt looked SOB and shaky per [facility] and temp elevation of 100F per H. Pt denied chest pain, LOC, abdominal pain. Severe sepsis-POA Bilateral pneumonia Acute metabolic encephalopathy: likely 2/2 acute illness iso underlying cognitive impairment. Acute hypoxic respiratory failure Recent COVID-19 infection --CT chest with interval early bilateral pneumonia Compared to CT chest on 11/12 --ECHO: Mild concentric LVH. Asymmetric left ventricular hypertrophy involving the septum with maximal thickness of 2.1 cm. Outflow tract obstruction not identified. Cavity obliteration at mid ventricle. Left ventricle is hyperdynamic. EF > 70%. Aortic valve sclerosis mild, without significant aortic valve stenosis. --Peritoneal fluid analysis-no organism and wbc --Serology positive for COVID-19 -Blood cultures- negative to date Continue BiPAP/oxygen mask as needed Appreciate pulmonology input Completed doxycycline course Continue Zosyn for now Continue Decadron Hypotension H/O chronic hypotension Continue midodrine Monitor blood pressure Suspected dysphagia Aspiration precaution Speech eval Troponin elevation: secondary to illness in the setting of chronic kidney dysfunction, history ESRD on PD Pt denies chest pain. ESRD on PD: Continue dialysis as per nephrology Appreciate nephrology help Hyperglycemia secondary to diabetes Last HbA1c 6.4 Update HbA1c Continue insulin while hospitalized Monitor BGs Other chronic medical conditions: Continue with/resume home meds as and when able. H/O PE/A-fib (early TBS) on Coumadin--held due to supratherapeutic INR. Continue metoprolol, amiodarone Hypertrophic cardiomyopathy CAD/ PVD COPD/RLD as per records Cirrhosis on imaging from past admission Prostate cancer S/P surgery Chronic anemia, Hb stable cognitive impairment, patient mentating well Inclusion body myositis as per records, patient to decide on steroid Rx r ecommendation from local neurologist following recent outpatient visit Subclinical hypothyroidism , needs repeat thyroid function test in 6 weeks as outpatient Past tobacco abuse. DVT Px: Supratherapeutic INR Hold Coumadin for now CODE STATUS Full code Admission and Anticipated Discharge Date Admission Date: November 19, 2024 Subjective Patient is seen and examined at bedside Less dyspnea today Admits to have intermittent cough RN noted patient having some dysphagia issues Saturating well on 8 L oxy mask Review of Systems Review of Systems: All systems reviewed & are unremarkable except as noted in Subjective Physical Exam Physical Exam: Physical Exam: Vitals signs as noted above General Appearance:Moderately built and nourished, no apparent distress Head: normocephalic, Atraumatic Eyes: normal inspection, EOMI Neck: supple, Trachea midline Respiratory/Chest: Decreased breath sounds, basal crackles, No accessory muscle use Cardiovascular: S1, S2, No murmur Abdomen/GI:Soft, Non tender, Bowel sounds present Extremities/Musculoskeletal:normal inspection, no edema Neurologic/Psych:AAOX3, grossly no focal neurological deficits Skin: normal color, warm Results & Data Results & Data Vital Signs (Past 12 Hours) Vital Signs Temp Pulse Pulse Resp BP BP Pulse Ox 11/24/24 12:26 36.5 C 79 20 110/64 95 11/24/24 10:50 36.4 C L 82 22 94/59 L 96 11/24/24 09:30 36.6 C 79 26 H 11/24/24 08:00 87 11/24/24 08:00 11/24/24 08:00 36.6 C 84 22 98/60 L 96 11/24/24 07:11 85 19 94 11/24/24 05:48 35.7 C L 100 H 42 H 94 11/24/24 05:48 103/72 11/24/24 05:43 94/64 L 11/24/24 05:43 94/64 L 11/24/24 05:39 35.9 C L 105 H 34 H 97 11/24/24 05:28 97/67 L 11/24/24 05:27 35.9 C L 101 H 36 H 97 11/24/24 04:54 35.9 C L 93 H 26 H 96 11/24/24 04:53 109/78 11/24/24 04:23 97/80 L 11/24/24 04:21 35.9 C L 127 H 27 H 95 11/24/24 04:08 102/74 11/24/24 04:06 35.8 C L 101 H 29 H 97 11/24/24 03:54 35.8 C L 110 H 18 97 11/24/24 03:53 85/73 L 11/24/24 03:53 85/73 L 11/24/24 03:53 85/73 L 11/24/24 03:48 85/68 L 11/24/24 03:45 110 H 28 H 94 11/24/24 03:43 96/68 L 11/24/24 03:39 35.8 C L 106 H 24 95 11/24/24 03:38 102/74 11/24/24 03:33 96/71 L 11/24/24 03:28 89/61 L 11/24/24 03:24 36.0 C L 129 H 40 H 97 11/24/24 03:23 95/66 L 11/24/24 03:18 89/64 L 11/24/24 03:18 89/64 L 11/24/24 03:16 70/57 L 11/24/24 03:12 96/67 L 11/24/24 03:12 96/67 L 11/24/24 03:12 36.4 C L 129 H 32 H 96 11/24/24 03:10 73/60 L 11/24/24 03:09 36.4 C L 122 H 34 H 96 11/24/24 03:08 68/50 L 11/24/24 03:07 68/52 L 11/24/24 03:00 36.4 C L 97 H 34 H 95 11/24/24 02:26 89 22 99 O2 Del Method O2 Flow Rate FiO2 11/24/24 12:26 Oxymask 8 11/24/24 10:50 Oxymask 11/24/24 09:30 11/24/24 08:00 11/24/24 08:00 Oxymask 11/24/24 08:00 Oxymask 11/24/24 07:11 Oxymask 11/24/24 05:48 11/24/24 05:48 11/24/24 05:43 11/24/24 05:43 11/24/24 05:39 11/24/24 05:28 11/24/24 05:27 11/24/24 04:54 11/24/24 04:53 11/24/24 04:23 11/24/24 04:21 11/24/24 04:08 11/24/24 04:06 11/24/24 03:54 11/24/24 03:53 11/24/24 03:53 11/24/24 03:53 11/24/24 03:48 11/24/24 03:45 50 11/24/24 03:43 11/24/24 03:39 11/24/24 03:38 11/24/24 03:33 11/24/24 03:28 11/24/24 03:24 11/24/24 03:23 11/24/24 03:18 11/24/24 03:18 11/24/24 03:16 11/24/24 03:12 11/24/24 03:12 11/24/24 03:12 11/24/24 03:10 11/24/24 03:09 11/24/24 03:08 11/24/24 03:07 11/24/24 03:00 11/24/24 02:26 50 Laboratory Results Short CBC 11/24/24 Range/Units 03:47 WBC 12.25 H (4.8-10.8) K/ul Hgb 12.0 L (14.0-18.0) g/dl Hct 34.9 L (42.0-52.0) % Plt Count 190 (130-400) K/uL BMP 11/23/24 11/24/24 11/24/24 19:59 03:47 12:54 Sodium 135 L 138 139 Potassium 4.1 D 2.7 L D 3.6 D Chloride 94 L 97 L 99 Carbon Dioxide 25 25 27 BUN 42 H 42 H 41 H Creatinine 7.76 H* D 7.37 H* D 7.50 H* Glucose 340 H* 334 H* 112 H Calcium 8.2 L 8.8 8.7
--- NOTE | 2024-11-24 15:08 | Pharmacy Report ---
Pharmacy Glycemic Short Note 2 - Date of Service November 24, 2024 - Glycemic Short BSG Results (Last 24 hours): 11/23/24 11/23/24 11/23/24 19:59 21:13 21:14 Glucose 340 H* POC Glucose 438 H* 455 H* 11/24/24 11/24/24 11/24/24 00:03 00:04 02:18 Glucose POC Glucose 461 H* 484 H* 426 H* 11/24/24 11/24/24 11/24/24 03:47 03:49 08:57 Glucose 334 H* POC Glucose 339 H* 230 H 11/24/24 11/24/24 12:00 12:54 Glucose 112 H POC Glucose 117 H OUTPATIENT ANTIDIABETIC REGIMEN: * 6.4% 11/13/24 * N/A ASSESSMENT: * Patient with significant hyperglycemia overnight- possibly d/t increase in dextrose content in PD bags and steroids * Patient was given 20 units of lantus and started on weight based stress of 3 novolog. Trended down overnight. * Patient currently has diet ordered but minimal intake. Dexamethasone 6 mg daily ordered. * Will trial NPH with dinner to help cover PD bags rather than long acting basal * Continue weight based of 3 novolog for now with overnight checks. Caution with IV regular bolus insulin d/t hypokalemia PLAN FOR INPATIENT GLYCEMIC CONTROL: * Hold outpatient oral diabetes medications * Basal insulin * Lantus 20 units x 1 @0000, NPH 15 units x 1 * Bolus insulin * NovoLog per scale ACHS or Q6hrs while NPO * Goal Range: Low 110 mg/dL - High 140 mg/dL * Correction Factor: 20 mg/dL/unit * Nutritional / Prandial insulin per carb ratio of 1 unit per 7 grams CHO consumed
[2024-11-24] MEDS: INSULIN HUMAN NPH SC SCH (17:02)
--- NOTE | 2024-11-24 20:26 | Pulmonology Progress Note ---
Date of Service November 24, 2024 Assessment & Plan (1) Viral pneumonia: Plan: Patient with evolving viral pneumonia secondary to COVID-19 and likely postinflammatory changes. Also likely with a component of pulmonary edema and aspiration pneumonitis. Agree with dexamethasone. Would recommend a 10-day course of dexamethasone. No role for remdesivir as he is currently out of the window for antiviral therapy. CRP is trending down with dexamethasone. (2) ARDS (adult respiratory distress syndrome): Plan: Hypoxemia fortunately slowly resolving. (3) Acute hypoxic respiratory failure: Plan: Hypoxemia improving as noted above. Suspect this may also be related to volume status which has improved. (4) Chronic hypotension: Plan: Patient with chronic hypotension currently on midodrine. Hypotension likely related to peritoneal dialysis. Plan Discussed with the patient's bedside RN, RT, hospitalist and patient's son extensively. Patient aware of the plan and in agreement. Pulmonary to sign off at this time. Please call with questions. Admission and Anticipated Discharge Date Admission Date: November 19, 2024 Subjective Patient seen and examined. Patient denies any overt complaints at this time. Remains mildly hypotensive, but not requiring pressors. Remains on low-flow oxygen which I have decreased to 5 L of flow and is saturating 95%. He denies any chest pain, abdominal pain, nausea or vomiting. No fevers. Review of Systems Review of Systems: All systems reviewed & are unremarkable except as noted in HPI & below Physical Exam Physical Exam: Constitutional: Patient appears to be of their stated age. Patient is in no apparent distress. Patient is well-developed. Eyes: Pupils are equal round and reactive to light. Conjunctivae are normal. Anicteric sclera. Ears nose, mouth and throat: Mallampati class 2. Normal posterior oropharynx. Uvula is midline. Neck: Trachea is midline. Visual inspection is normal. Respiratory: Mild tachypnea. Crackles noted greater on the left and on the right. Mildly prolonged phase of exhalation. No wheezes. Cardiovascular: Regular rate and rhythm. No murmurs. No edema. Gastrointestinal: Normal bowel sounds, soft, nontender and nondistended. No hepatosplenomegaly noted. Musculoskeletal: No cyanosis. Patient is able to move all extremities. Strength is 5 out of 5 in the upper and lower extremities. Skin: No rashes, warm dry and intact. Neurologic: No obvious focal neurological deficits seen. Hard of hearing. Psychiatric: Alert and oriented x3 with a euthymic affect. Results & Data Results & Data Vital Signs (Past 12 Hours) Vital Signs Temp Pulse Resp BP Pulse Ox O2 Del Method O2 Flow Rate 11/24/24 19:37 85 22 92 Oxymask 7 11/24/24 17:41 36.9 C 82 24 106/62 94 Oxymask 7 11/24/24 15:30 36.7 C 80 26 H 115/67 11/24/24 14:52 36.7 C 78 20 93/70 L 95 Oxymask 8 11/24/24 12:26 36.5 C 79 20 110/64 95 Oxymask 8 11/24/24 10:50 36.4 C L 82 22 94/59 L 96 Oxymask 10 11/24/24 09:30 36.6 C 79 26 H PG Care Time/CCT Total # of Minutes Spent Total Time Spent with Patient: Total time spent is greater than 50% in coordination of care (as documented) at patient's floor/unit and/or counseling patient: Coding Level of Care Code 28453 SUB INP/OBS CARE 2/35MIN Diagnoses Viral pneumonia J12.9 ARDS (adult respiratory distress syndrome) J80 Acute hypoxic respiratory failure J96.01 Chronic hypotension I95.89
[2024-11-25] MEDS: INSULIN ASPART PER UNIT CHARGE SC SCH (00:08)
[2024-11-25 05:03] LABS: BUN Creatinine Ratio 6.8 (10-20); C Reactive Protein 12.89 mg/dl (0-0.5); Calcium 9.3 mg/dl (8.6-10.3); Creatinine Clr Calc Pharmacy 9.6 ml/min; Magnesium 2.1 mg/dl (1.7-2.4); Potassium 3.4 mmol/L (3.5-5.1)
[2024-11-25 05:09] LABS: INR 3.7 (0.9-1.1); Prothrombin Time 35.9 Seconds (9.0-12.0)
[2024-11-25 05:13] LABS: Hematocrit (blood only) 34.2 % (42.0-52.0); Hemoglobin 11.8 g/dl (14.0-18.0); Mean Corpuscular Hemoglobin 29.4 pg (25.0-34.0); Mean Corpuscular Hgb Conc 34.5 g/dL (32.0-36.0); Mean Corpuscular Volume 85.1 fL (80.0-100.0); Mean Platelet Volume 11.5 fL (9.4-12.4); Platelet Count 231 K/uL (130-400); RDW Coefficient of Variation 15.8 % (11.5-14.5); RDW Standard Deviation 48.6 fL (36.4-46.3); Red Blood Count 4.02 M/uL (4.70-6.10)
[2024-11-25 06:40] LABS: Estimated Average Glucose 146 mg/dl; Hemoglobin A1C 6.7 % (4.5-5.6)
[2024-11-25] MEDS: POTASSIUM CHLORIDE CRTAB 20 MEQ TABCR PO ONE (08:30)
--- NOTE | 2024-11-25 09:57 | Dialysis Progress Note ---
Date of Service November 25, 2024 Assessment & Plan Admission and Anticipated Discharge Date Admission Date: November 19, 2024 Subjective Assessment & Plan (1) Peritoneal dialysis status: 2 resp failure with Hypoxia. Plan: continue routine PD this evening . good UF overnight so will do same Rx tonight also. Modified OP rx >> 14hr w/ 6 x 2.5 L fills alternating 2.5 (4 exchs) and 4.25% (2 exchs) bags We really need to get volume off overnight tonight; concern otherwise will need to change to HD or continue PD on daylight tomorrow w/ all red bags; have to balance hypotension here though it's rebounded somewhat admission fluid studies to evaluate for PD peritonitis since there was concern for sepsis show no peritonitis K low today again despite getting 80 meq yesterday. Will give him 160 meq today. write for 80 bid. Off bipap Now on high flow 02. UF did not seem to make much difference--had 1800 ,1500, 2500 and last night was 2900 ml. BP is now low and we have pulled enough fluid that we can. For tonight less aggressive UF goal.--all 2.5% solution ARDS being treated by primary team. Also he can be made prone all day. even when PD is on he can be prone if the system works and does not alarm. reviewed CT chest Showing Ground glass opacities b/l with Covid. Reviewed Pulm COnsult note--ARDS now Subjective Seen for PD---had 2881 ml UF overnight. Still sick but slightly better today. UF did not seem to make much difference with resp failure.. Review of Systems Review of Systems: All systems reviewed & are unremarkable except as noted in Subjective Physical Exam Constitutional: well developed, well nourished and + in distress (mild w/ breathing ); no altered mental status Eyes: EOM intact bilaterally ENMT: Mouth: + dry oral mucous membranes Respiratory: + labored breathing (slight), + cough, a ble to speak in complete sentences and + tachypneic Auscultation: + diminished lung sounds and + wheezes (occasional) Cardiovascular: Rate/Rhythm: regular rate and regular rhythm Heart Sounds: + murmur Extremities: no edema Gastrointestinal (Abdomen): Inspection/Auscultation: normal bowel sounds and + abdominal surgical drain present (PD catheter) Percussion/Palpation: abdomen soft; abdomen nontender Musculoskeletal: Extremities: No edema Skin: no rashes, warm and dry Results & Data Vital Signs (Past 12 Hours) Vital Signs Temp Pulse Pulse Resp BP Pulse Ox O2 Del Method 11/25/24 08:13 High Flow Nasal Cannula 11/25/24 08:12 36.5 C 94 H 27 H 93 High Flow Nasal Cannula 11/25/24 08:00 36.5 C 96 H 24 90 11/25/24 07:56 36.6 C 96 H 28 H 11/25/24 07:54 36.6 C 95 H 33 H 93 11/25/24 07:48 36.6 C 94 H 22 95 11/25/24 07:30 36.6 C 88 26 H 95 11/25/24 07:28 91/58 L 11/25/24 07:28 91/58 L 11/25/24 07:28 91/58 L 11/25/24 07:27 36.6 C 92 H 31 H 93 11/25/24 07:18 36.6 C 82 28 H 96 11/25/24 07:11 83 24 97 Oxymask 11/25/24 06:51 36.7 C 79 29 H 98 11/25/24 05:33 36.6 C 77 30 H 98 11/25/24 05:28 103/60 11/25/24 04:45 36.5 C 77 25 H 95 11/25/24 00:28 99/56 L 11/25/24 00:24 36.8 C 82 29 H 92 11/25/24 00:00 82 O2 Flow Rate 11/25/24 08:13 8 11/25/24 08:12 8 11/25/24 08:00 11/25/24 07:56 11/25/24 07:54 11/25/24 07:48 11/25/24 07:30 11/25/24 07:28 11/25/24 07:28 11/25/24 07:28 11/25/24 07:27 11/25/24 07:18 11/25/24 07:11 10 11/25/24 06:51 11/25/24 05:33 11/25/24 05:28 11/25/24 04:45 11/25/24 00:28 11/25/24 00:24 11/25/24 00:00
--- NOTE | 2024-11-25 10:58 | Pharmacy Report ---
Pharmacy Glycemic Short Note 2 - Date of Service November 25, 2024 - Glycemic Short BSG Results (Last 24 hours): 11/24/24 11/24/24 11/24/24 12:00 12:54 17:02 Glucose 112 H POC Glucose 117 H 278 H 11/24/24 11/24/24 11/25/24 19:55 23:51 03:52 Glucose 252 H POC Glucose 256 H 210 H 11/25/24 11/25/24 03:55 07:26 Glucose POC Glucose 247 H 126 H OUTPATIENT ANTIDIABETIC REGIMEN: * 6.4% 11/13/24 * N/A ASSESSMENT: 11/25 * Dexamethasone 6 mg IV continues * BSG wnl at lunch yesterday, but hyperglycemia noted in the evening and overnight, likely 2nd PD bags (6 bags of 4.25% dextrose). BSG back down to goal this AM. * Dialysate changing this evening per nephrology note - plans 6 bags of 2.5% dextrose, which is almost half of the dextrose as compared to yesterday. Will continue NPH given at 1700, but will reduce slightly 2nd significant dextrose reduction in dialysate * Correction factor seems to be working after dextrose load in PD finishes, based on BSG's in goal range x2 the last 2 days after PD. Will therefore leave correction factor as-is. 11/24 * Patient with significant hyperglycemia overnight- possibly d/t increase in dextrose content in PD bags and steroids * Patient was given 20 units of lantus and started on weight based stress of 3 novolog. Trended down overnight. * Patient currently has diet ordered but minimal intake. Dexamethasone 6 mg daily ordered. * Will trial NPH with dinner to help cover PD bags rather than long acting basal * Continue weight based of 3 novolog for now with overnight checks. Caution with IV regular bolus insulin d/t hypokalemia PLAN FOR INPATIENT GLYCEMIC CONTROL: * Basal insulin * NPH 10 units @ 1700 * Bolus insulin * NovoLog per scale ACHS or Q6hrs while NPO * Goal Range: Low 110 mg/dL - High 140 mg/dL * Correction Factor: 20 mg/dL/unit * Nutritional / Prandial insulin per carb ratio of 1 unit per 7 grams CHO consumed
--- NOTE | 2024-11-25 16:22 | Hospitalist Progress Note ---
Date of Service November 25, 2024 Assessment & Plan (1) Encephalopathy: Plan 79-year-old male with PMH of PE/A-fib on Coumadin, hypertrophic CM, CAD, PVD, hypotension on midodrine, COPD/RLD, ESRD on PD, esophageal achalasia, cirrhosis, prostate cancer status post surgery, MGUS, chronic anemia [baseline hemoglobin of 10-11], cognitive impairment, inclusion body myositis, past tobacco abuse who was recently admitted for COVID - 19 pneumonia/sp decdron Rx for 3-4 days/discharged to [facility] on room air presents w/ c/o increasing weakness, fall (no head trauma, witnessed fall). Pt looked SOB and shaky per [facility] and temp elevation of 100F per H. Pt denied chest pain, LOC, abdominal pain. Severe sepsis-POA Bilateral pneumonia Acute metabolic encephalopathy: likely 2/2 acute illness iso underlying cognitive impairment. Acute hypoxic respiratory failure Recent COVID-19 infection ARDS --CT chest with interval early bilateral pneumonia Compared to CT chest on 11/12 --ECHO: Mild concentric LVH. Asymmetric left ventricular hypertrophy involving the septum with maximal thickness of 2.1 cm. Outflow tract obstruction not identified. Cavity obliteration at mid ventricle. Left ventricle is hyperdynamic. EF > 70%. Aortic valve sclerosis mild, without significant aortic valve stenosis. --Peritoneal fluid analysis-no organism and wbc --Serology positive for COVID-19 -Blood cultures- negative to date Continue BiPAP/oxygen mask as needed Appreciate pulmonology input Completed doxycycline course Continue Zosyn for now Continue Decadron Less supplemental oxygen today on 5 L Will repeat chest x-ray tomorrow CRP decreasing Leukocytosis likely due to steroids. Monitor CBC Hypotension H/O chronic hypotension Continue midodrine Monitor blood pressure Suspected dysphagia Aspiration precaution Speech eval Troponin elevation: secondary to illness in the setting of chronic kidney dysfunction, history ESRD on PD Pt denies chest pain. ESRD on PD: Continue dialysis as per nephrology Appreciate nephrology help Hyperglycemia secondary to diabetes Last HbA1c 6.4 Update HbA1c Continue insulin while hospitalized Monitor BGs Other chronic medical conditions: Continue with/resume home meds as and when able. H/O PE/A-fib (early TBS) on Coumadin--held due to supratherapeutic INR. Continue metoprolol, amiodarone Hypertrophic cardiomyopathy CAD/ PVD COPD/RLD as per records Cirrhosis on imaging from past admission Prostate cancer S/P surgery Chronic anemia, Hb stable cognitive impairment, patient mentating well Inclusion body myositis as per records, patient to decide on steroid Rx recommendation from local neurologist following recent outpatient visit Subclinical hypothyroidism , needs repeat thyroid function test in 6 weeks as outpatient Past tobacco abuse. DVT Px: Supratherapeutic INR Hold Coumadin for now CODE STATUS Full code Admission and Anticipated Discharge Date Admission Date: November 19, 2024 Subjective Patient is seen and examined at bedside Offers no new complaints today No dysphagia issues today 2800 output from PD catheter Less supplemental oxygen requirement today Still has minimal cough Has poor oral intake Review of Systems Review of Systems: All systems reviewed & are unremarkable except as noted in Subjective Physical Exam Physical Exam: Physical Exam: Vitals signs as noted above General Appearance:Moderately built and nourished, no apparent distress Head: normocephalic, Atraumatic Eyes: normal inspection, EOMI Neck: supple, Trachea midline Respiratory/Chest: Decreased breath sounds, basal crackles, No accessory muscle use Cardiovascular: S1, S2, No murmur Abdomen/GI:Soft, Non tender, Bowel sounds present Extremities/Musculoskeletal:normal inspection, no edema Neurologic/Psych:AAOX3, grossly no focal neurological deficits Skin: normal color, warm Results & Data Results & Data Vital Signs (Past 12 Hours) Vital Signs Temp Pulse Pulse Resp BP Pulse Ox O2 Del Method 11/25/24 12:28 116/65 11/25/24 12:28 116/65 11/25/24 12:21 36.7 C 81 26 H 93 Oxymask 11/25/24 12:06 36.6 C 84 23 90 11/25/24 11:28 95/59 L 11/25/24 11:28 95/59 L 11/25/24 11:28 95/59 L 11/25/24 11:27 36.7 C 80 28 H 95 11/25/24 10:28 109/62 11/25/24 10:28 109/62 11/25/24 10:21 36.7 C 81 18 95 11/25/24 10:00 36.6 C 85 25 H 93 11/25/24 09:28 98/65 L 11/25/24 09:24 36.4 C L 87 21 96 11/25/24 08:28 97/58 L 11/25/24 08:22 99/59 L 11/25/24 08:22 99/59 L 11/25/24 08:22 99/59 L 11/25/24 08:21 36.5 C 93 H 16 85 L 11/25/24 08:13 High Flow Nasal Cannula 11/25/24 08:12 36.5 C 94 H 27 H 93 High Flow Nasal Cannula 11/25/24 08:00 36.5 C 96 H 24 90 11/25/24 07:56 36.6 C 96 H 28 H 11/25/24 07:54 36.6 C 95 H 33 H 93 11/25/24 07:48 36.6 C 94 H 22 95 11/25/24 07:30 36.6 C 88 26 H 95 11/25/24 07:28 91/58 L 11/25/24 07:28 91/58 L 11/25/24 07:28 91/58 L 11/25/24 07:27 36.6 C 92 H 31 H 93 11/25/24 07:18 36.6 C 82 28 H 96 11/25/24 07:11 83 24 97 Oxymask 11/25/24 06:51 36.7 C 79 29 H 98 11/25/24 05:33 36.6 C 77 30 H 98 11/25/24 05:28 103/60 11/25/24 04:45 36.5 C 77 25 H 95 O2 Flow Rate 11/25/24 12:28 11/25/24 12:28 11/25/24 12:21 5 11/25/24 12:06 11/25/24 11:28 11/25/24 11:28 11/25/24 11:28 11/25/24 11:27 11/25/24 10:28 11/25/24 10:28 11/25/24 10:21 11/25/24 10:00 11/25/24 09:28 11/25/24 09:24 11/25/24 08:28 11/25/24 08:22 11/25/24 08:22 11/25/24 08:22 11/25/24 08:21 11/25/24 08:13 8 11/25/24 08:12 8 11/25/24 08:00 11/25/24 07:56 11/25/24 07:54 11/25/24 07:48 11/25/24 07:30 11/25/24 07:28 11/25/24 07:28 11/25/24 07:28 11/25/24 07:27 11/25/24 07:18 11/25/24 07:11 10 11/25/24 06:51 11/25/24 05:33 11/25/24 05:28 11/25/24 04:45 Laboratory Results Short CBC 11/25/24 Range/Units 03:52 WBC 30.70 H* (4.8-10.8) K/ul Hgb 11.8 L (14.0-18.0) g/dl Hct 34.2 L (42.0-52.0) % Plt Count 231 (130-400) K/uL BMP 11/25/24 03:52 Sodium 140 Potassium 3.4 L Chloride 97 L Carbon Dioxide 29 BUN 47 H Creatinine 6.96 H* D Glucose 252 H Calcium 9.3
[2024-11-25] MEDS: INSULIN HUMAN NPH SC ONE (16:45)
[2024-11-25] MEDS ORDERED: Nursing to Pharmacy Communication SCH (17:00)
[2024-11-26] MEDS: INSULIN ASPART PER UNIT CHARGE SC ONE (02:25)
[2024-11-26 04:55] LABS: Hematocrit (blood only) 31.8 % (42.0-52.0); Mean Corpuscular Hemoglobin 29.7 pg (25.0-34.0); Mean Corpuscular Hgb Conc 34.6 g/dL (32.0-36.0); Mean Corpuscular Volume 85.9 fL (80.0-100.0); Mean Platelet Volume 11.4 fL (9.4-12.4); Platelet Count 241 K/uL (130-400); RDW Coefficient of Variation 15.6 % (11.5-14.5); RDW Standard Deviation 48.7 fL (36.4-46.3); White Blood Count 24.52 K/ul (4.8-10.8)
[2024-11-26 05:13] LABS: Calcium 8.8 mg/dl (8.6-10.3); Creatinine Clr Calc Pharmacy 9.4 ml/min; Magnesium 2.1 mg/dl (1.7-2.4); Potassium 4.3 mmol/L (3.5-5.1)
[2024-11-26 05:20] LABS: INR 1.7 (0.9-1.1)
--- NOTE | 2024-11-26 08:08 | XRay Report ---
EXAM: XR chest 1V portable CLINICAL HISTORY: Pneumonia TECHNIQUE: An X-ray image of the chest is obtained in AP projection. COMPARISON: 11/24/2024. FINDINGS: Pulmonary Parenchyma: Reduced volume of both lung willis likely expiratory study. Mild progression of previously demonstrated bilateral lower zonal mainly linear and more left patchy opacities. Redemonstrated bilateral diffuse more central prominent bronchial markings with peribronchial thickening. Redemonstrated obliterated right costophrenic recess by likely mild effusion, left side is clear. Heart and Mediastinum: Heart size cannot be properly assessed. Bony Thorax: Bony thorax appears intact without fractures or deformities. Soft Tissues: Soft tissues overlying the chest wall are unremarkable. IMPRESSION: 1. Mild progression of previously demonstrated bilateral lower zonal mainly linear and more left patchy opacities, can be pneumonic opacities. 2. Otherwise, no interval changes. Electronically signed by Torie Merino 11-26-2024 08:08 AM
--- NOTE | 2024-11-26 10:00 | Dialysis Progress Note ---
Date of Service November 26, 2024 Assessment & Plan Admission and Anticipated Discharge Date Admission Date: November 19, 2024 Subjective Assessment & Plan (1) Peritoneal dialysis status: 2 resp failure with Hypoxia. Plan: continue routine PD this evening . Had no UF last night with all 2.5%. But nights before that very good UF for many days. Off bipap Now on NC. Breathing seems better we have pulled enough fluid that we can. BP is low and was started on Midodrine For tonight will do all 4.25% again as with 2.5% we did not get any UF at all. However at this time we dont have 4.25% solution bag so may still need to do 2.5% ARDS being treated by primary team. Subjective Seen for PD---had no UF overnight. Still sick but slightly better today. Breathing status better Review of Systems Review of Systems: All systems reviewed & are unremarkable except as noted in Subjective Physical Exam Constitutional: well developed, well nourished and + in distress (mild w/ breathing ); no altered mental status Eyes: EOM intact bilaterally ENMT: Mouth: + dry oral mucous membranes Respiratory: + labored breathing (slight), + cough, a ble to speak in complete sentences and + tachypneic Auscultation: + diminished lung sounds and + wheezes (occasional) Cardiovascular: Rate/Rhythm: regular rate and regular rhythm Heart Sounds: + murmur Extremities: no edema Gastrointestinal (Abdomen): Inspection/Auscultation: normal bowel sounds and + abdominal surgical drain present (PD catheter) Percussion/Palpation: abdomen soft; abdomen nontender Musculoskeletal: Extremities: No edema Skin: no rashes, warm and dry Results & Data Vital Signs (Past 12 Hours) Vital Signs Temp Pulse Pulse Pulse Resp BP Pulse Ox 11/26/24 08:58 36.9 C 94 11/26/24 08:28 103/58 L 11/26/24 08:28 103/58 L 11/26/24 08:28 103/58 L 11/26/24 08:27 76 24 89 L 11/26/24 08:25 36.9 C 76 18 11/26/24 08:21 76 28 H 90 11/26/24 08:01 11/26/24 07:28 102/66 11/26/24 07:28 102/66 02/07/25 07:21 72 25 H 94 11/26/24 07:12 73 18 95 11/26/24 07:00 73 32 H 92 11/26/24 03:28 114/58 L 11/26/24 03:27 36.7 C 74 31 H 95 11/26/24 00:28 106/56 L 11/26/24 00:00 73 11/25/24 23:36 36.8 C 73 25 H 91 O2 Del Method O2 Flow Rate 11/26/24 08:58 Nasal Cannula 5 11/26/24 08:28 11/26/24 08:28 11/26/24 08:28 11/26/24 08:27 Nasal Cannula 5 11/26/24 08:25 11/26/24 08:21 11/26/24 08:01 Nasal Cannula 5 11/26/24 07:28 11/26/24 07:28 11/26/24 07:21 11/26/24 07:12 Oxymask 10 11/26/24 07:00 11/26/24 03:28 11/26/24 03:27 11/26/24 00:28 11/26/24 00:00 11/25/24 23:36
[2024-11-26] MEDS: LANTUS PER UNIT CHARGE SC ONE (12:47)
--- NOTE | 2024-11-26 13:38 | Pharmacy Report ---
Pharmacy Glycemic Short Note 2 - Date of Service November 26, 2024 - Glycemic Short BSG Results (Last 24 hours): 11/25/24 11/25/24 11/26/24 16:16 20:50 02:19 Glucose POC Glucose 143 H 236 H 271 H 11/26/24 11/26/24 11/26/24 04:24 07:57 11:29 Glucose 145 H POC Glucose 176 H 168 H OUTPATIENT ANTIDIABETIC REGIMEN: * 6.4% 11/13/24 * N/A ASSESSMENT: 11/26: * BSGs [id number]/dl the last 24h. Received 13units of bolus insulin yesterday. * Continues on dexamethasone 6mg IV daily, zosyn, and PD overnight. PD dextrose concentration for tonight unclear. * NPH was held yesterday evening per provider d/t decreased PO. Continues w/ decreased PO intake today. Will switch to Lantus 8 units X 1 dose today with lunch to provide basal coverage given decreased PO. No change to Novolog for today. 11/25 * Dexamethasone 6 mg IV continues * BSG wnl at lunch yesterday, but hyperglycemia noted in the evening and overnight, likely 2nd PD bags (6 bags of 4.25% dextrose). BSG back down to goal this AM. * Dialysate changing this evening per nephrology note - plans 6 bags of 2.5% dextrose, which is almost half of the dextrose as compared to yesterday. Will continue NPH given at 1700, but will reduce slightly 2nd significant dextrose reduction in dialysate * Correction factor seems to be working after dextrose load in PD finishes, based on BSG's in goal range x2 the last 2 days after PD. Will therefore leave correction factor as-is. 11/24 * Patient with significant hyperglycemia overnight- possibly d/t increase in dextrose content in PD bags and steroids * Patient was given 20 units of lantus and started on weight based stress of 3 novolog. Trended down overnight. * Patient currently has diet ordered but minimal intake. Dexamethasone 6 mg daily ordered. * Will trial NPH with dinner to help cover PD bags rather than long acting basal * Continue weight based of 3 novolog for now with overnight checks. Caution with IV regular bolus insulin d/t hypokalemia PLAN FOR INPATIENT GLYCEMIC CONTROL: * Basal insulin * Lantus 8 units SQ X 1 * Bolus insulin * NovoLog per scale ACHS or Q6hrs while NPO * Goal Range: Low 110 mg/dL - High 140 mg/dL * Correction Factor: 20 mg/dL/unit * Nutritional / Prandial insulin per carb ratio of 1 unit per 7 grams CHO consumed
--- NOTE | 2024-11-26 17:07 | Hospitalist Progress Note ---
Date of Service November 26, 2024 Assessment & Plan (1) Encephalopathy: Plan 79-year-old male with PMH of PE/A-fib on Coumadin, hypertrophic CM, CAD, PVD, hypotension on midodrine, COPD/RLD, ESRD on PD, esophageal achalasia, cirrhosis, prostate cancer status post surgery, MGUS, chronic anemia [baseline hemoglobin of 10-11], cognitive impairment, inclusion body myositis, past tobacco abuse who was recently admitted for COVID - 19 pneumonia/sp decdron Rx for 3-4 days/discharged to [facility] on room air presents w/ c/o increasing weakness, fall (no head trauma, witnessed fall). Pt looked SOB and shaky per [facility] and temp elevation of 100F per H. Pt denied chest pain, LOC, abdominal pain. Severe sepsis-POA Bilateral pneumonia Acute metabolic encephalopathy: likely 2/2 acute illness iso underlying cognitive impairment. Acute hypoxic respiratory failure Recent COVID-19 infection ARDS --CT chest with interval early bilateral pneumonia Compared to CT chest on 11/12 --ECHO: Mild concentric LVH. Asymmetric left ventricular hypertrophy involving the septum with maximal thickness of 2.1 cm. Outflow tract obstruction not identified. Cavity obliteration at mid ventricle. Left ventricle is hyperdynamic. EF > 70%. Aortic valve sclerosis mild, without significant aortic valve stenosis. --Peritoneal fluid analysis-no organism and wbc --Serology positive for COVID-19 -Blood cultures- negative to date Continue BiPAP/oxygen mask as needed Appreciate pulmonology input Completed doxycycline course Continue Zosyn for now Continue Decadron Still requiring 5 L of supplemental oxygen to maintain saturation Chest x-ray today showed mild progression of opacities Leukocytosis trending down Continue current management Hypotension H/O chronic hypotension Continue midodrine Blood pressure stable Suspected dysphagia Aspiration precaution Speech eval Tolerating current diet Troponin elevation: secondary to illness in the setting of chronic kidney dysfunction, history ESRD on PD Pt denies chest pain. ESRD on PD: Continue dialysis as per nephrology Appreciate nephrology help Hyperglycemia secondary to diabetes Last HbA1c 6.4 Update HbA1c Continue insulin while hospitalized Monitor BGs Other chronic medical conditions: Continue with/resume home meds as and when able. H/O PE/A-fib (early TBS) on Coumadin--held due to supratherapeutic INR. Continue metoprolol, amiodarone Hypertrophic cardiomyopathy CAD/ PVD COPD/RLD as per records Cirrhosis on imaging from past admission Prostate cancer S/P surgery Chronic anemia, Hb stable cognitive impairment, patient mentating well Inclusion body myositis as per records, patient to decide on steroid Rx recommendation from local neurologist following recent outpatient visit Subclinical hypothyroidism , needs repeat thyroid function test in 6 weeks as outpatient Past tobacco abuse. DVT Px: Supratherapeutic INR resolved Resume Coumadin CODE STATUS Full code Admission and Anticipated Discharge Date Admission Date: November 19, 2024 Subjective Patient is seen and examined at bedside Out of bed to chair today Saturating well on 5 L supplemental oxygen Subjectively feels well Denies any dyspnea, significant cough Had PT evaluation earlier today Appetite slowly improving Review of Systems Review of Systems: All systems reviewed & are unremarkable except as noted in Subjective Physical Exam Physical Exam: Physical Exam: Vitals signs as noted above General Appearance:Moderately built and nourished, no apparent distress Head: normocephalic, Atraumatic Eyes: normal inspection, EOMI Neck: supple, Trachea midline Respiratory/Chest: Decreased breath sounds, CTA, No accessory muscle use Cardiovascular: S1, S2, No murmur Abdomen/GI:Soft, Non tender, Bowel sounds present Extremities/Musculoskeletal:normal inspection, no edema Neurologic/Psych:AAOX3, grossly no focal neurological deficits Skin: normal color, warm Results & Data Results & Data Vital Signs (Past 12 Hours) Vital Signs Temp Pulse Pulse Pulse Resp BP BP 11/26/24 15:15 36.4 C L 68 15 119/58 L 11/26/24 08:58 36.9 C 11/26/24 08:28 103/58 L 11/26/24 08:28 103/58 L 11/26/24 08:28 103/58 L 11/26/24 08:27 76 24 11/26/24 08:25 36.9 C 76 18 11/26/24 08:21 76 28 H 11/26/24 08:01 11/26/24 07:28 102/66 11/26/24 07:28 102/66 11/26/24 07:21 72 25 H 11/26/24 07:12 73 18 11/26/24 07:00 73 32 H Pulse Ox O2 Del Method O2 Flow Rate 11/26/24 15:15 11/26/24 08:58 94 Nasal Cannula 5 11/26/24 08:28 11/26/24 08:28 11/26/24 08:28 11/26/24 08:27 89 L Nasal Cannula 5 11/26/24 08:25 11/26/24 08:21 90 11/26/24 08:01 Nasal Cannula 5 11/26/24 07:28 11/26/24 07:28 11/26/24 07:21 94 11/26/24 07:12 95 Oxymask 11/26/24 07:00 92 Laboratory Results Short CBC 11/26/24 Range/Units 04:24 WBC 24.52 H (4.8-10.8) K/ul Hgb 11.0 L (14.0-18.0) g/dl Hct 31.8 L (42.0-52.0) % Plt Count 241 (130-400) K/uL BMP 11/26/24 04:24 Sodium 137 Potassium 4.3 D Chloride 95 L Carbon Dioxide 30 BUN 56 H Creatinine 6.98 H* Glucose 145 H Calcium 8.8
[2024-11-26] MEDS: INSULIN ASPART PER UNIT CHARGE SC SCH (23:42)
[2024-11-27 05:19] LABS: Hematocrit (blood only) 30.1 % (42.0-52.0); Hemoglobin 10.4 g/dl (14.0-18.0); Mean Corpuscular Hemoglobin 29.4 pg (25.0-34.0); Mean Corpuscular Hgb Conc 34.6 g/dL (32.0-36.0); Nucleated RBC # (auto) 0.02 K/uL (0.00-0.12); Nucleated RBC % (auto) 0.1 %; Platelet Count 230 K/uL (130-400); RDW Coefficient of Variation 15.1 % (11.5-14.5); RDW Standard Deviation 46.9 fL (36.4-46.3); Red Blood Count 3.54 M/uL (4.70-6.10); White Blood Count 17.24 K/ul (4.8-10.8)
[2024-11-27 05:39] LABS: BUN Creatinine Ratio 9.3 (10-20); Magnesium 1.9 mg/dl (1.7-2.4); Potassium 3.3 mmol/L (3.5-5.1)
[2024-11-27 05:46] LABS: INR 1.4 (0.9-1.1); Prothrombin Time 15.2 Seconds (9.0-12.0)
--- NOTE | 2024-11-27 08:41 | XRay Report ---
XR chest 1V portable HISTORY: 79 years-old Male COVID acute shortness of breath COMPARISON: 11/26/2024 TECHNIQUE: AP view of the chest FINDINGS: Cardiac silhouette is enlarged. Atherosclerosis of the aorta. Pulmonary vascular congestion with inte rstitial coarsening redemonstrated, stable to mildly improved. Mild ill-defined linear bibasilar cons olidation. Pulmonary emphysema. Possible trace pleural effusions. No pneumothorax. IMPRESSION: Cardiomegaly with stable to mildly improved appearance of the mixed interstitial and alve olar opacities. ACT 112: Negative or not required by law. The above report was generated using voice recognition software. It may contain grammatical, syntax o r spelling errors. Electronically signed by: Arturo Osorio M.D. 11/27/2024 8:40 AM
[2024-11-27] MEDS: POTASSIUM CHLORIDE CRTAB 20 MEQ TABCR PO ONE (09:03)
[2024-11-27] MEDS: LANTUS PER UNIT CHARGE SC SCH (09:05)
--- NOTE | 2024-11-27 12:44 | Hospitalist Progress Note ---
Date of Service November 27, 2024 Assessment & Plan (1) Encephalopathy: Plan 79-year-old male with PMH of PE/A-fib on Coumadin, hypertrophic CM, CAD, PVD, hypotension on midodrine, COPD/RLD, ESRD on PD, esophageal achalasia, cirrhosis, prostate cancer status post surgery, MGUS, chronic anemia [baseline hemoglobin of 10-11], cognitive impairment, inclusion body myositis, past tobacco abuse who was recently admitted for COVID - 19 pneumonia/sp decdron Rx for 3-4 days/discharged to [facility] on room air presents w/ c/o increasing weakness, fall (no head trauma, witnessed fall). Pt looked SOB and shaky per [facility] and temp elevation of 100F per H. Pt denied chest pain, LOC, abdominal pain. Severe sepsis-POA Bilateral pneumonia Acute metabolic encephalopathy: likely 2/2 acute illness iso underlying cognitive impairment. Acute hypoxic respiratory failure Recent COVID-19 infection ARDS --CT chest with interval early bilateral pneumonia Compared to CT chest on 11/12 --ECHO: Mild concentric LVH. Asymmetric left ventricular hypertrophy involving the septum with maximal thickness of 2.1 cm. Outflow tract obstruction not identified. Cavity obliteration at mid ventricle. Left ventricle is hyperdynamic. EF > 70%. Aortic valve sclerosis mild, without significant aortic valve stenosis. --Peritoneal fluid analysis-no organism and wbc --Serology positive for COVID-19 -Blood cultures- negative to date Continue BiPAP/oxygen mask as needed Appreciate pulmonology input Completed doxycycline course Continue Zosyn>> consider transition to Augmentin Continue Decadron Continue supplemental oxygen as needed Chest x-ray today showed improved opacities Will check CRP tomorrow Diarrhea Likely due to antibiotics Check stool for C. difficile Monitor volume status Hypotension H/O chronic hypotension Continue midodrine Blood pressure stable Suspected dysphagia Aspiration precaution Speech eval Continue diet as recommended by speech therapy Troponin elevation: secondary to illness in the setting of chronic kidney dysfunction, history ESRD on PD Pt denies chest pain. ESRD on PD: Continue dialysis as per nephrology Appreciate nephrology help Hyperglycemia secondary to diabetes HbA1c 6.7 Continue insulin while hospitalized Monitor BGs Other chronic medical conditions: Continue with/resume home meds as and when able. H/O PE/A-fib (early TBS) on Coumadin--held due to supratherapeutic INR. Continue metoprolol, amiodarone Hypertrophic cardiomyopathy CAD/ PVD COPD/RLD as per records Cirrhosis on imaging from past admission Prostate cancer S/P surgery Chronic anemia, Hb stable cognitive impairment, patient mentating well Inclusion body myositis as per records, patient to decide on steroid Rx recommendation from local neurologist following recent outpatient visit Subclinical hypothyroidism , needs repeat thyroid function test in 6 weeks as outpatient Past tobacco abuse. DVT Px: Continue Coumadin CODE STATUS Full code Admission and Anticipated Discharge Date Admission Date: November 19, 2024 Subjective Patient is seen and examined at bedside Reports having diarrhea today Requiring increased supplemental oxygen at bedtime Chest x-ray today showed mildly improved alveolar opacities Patient denies any chest pain, dyspnea Review of Systems Review of Systems: All systems reviewed & are unremarkable except as noted in Subjective Physical Exam Physical Exam: Physical Exam: Vitals signs as noted above General Appearance:Moderately built and nourished, no apparent distress Head: normocephalic, Atraumatic Eyes: normal inspection, EOMI Neck: supple, Trachea midline Respiratory/Chest: Decreased breath sounds, CTA, No accessory muscle use Cardiovascular: S1, S2, No murmur Abdomen/GI:Soft, Non tender, Bowel sounds present Extremities/Musculoskeletal:normal inspection, no edema Neurologic/Psych:AAOX3, grossly no focal neurological deficits Skin: normal color, warm Results & Data Results & Data Vital Signs (Past 12 Hours) Vital Signs Temp Pulse Pulse Pulse Resp BP Pulse Ox 11/27/24 09:47 117/71 11/27/24 09:33 74 18 94 11/27/24 09:09 73 23 93 11/27/24 08:18 75 29 H 88 L 11/27/24 08:10 36.4 C L 71 18 11/27/24 07:47 103/71 11/27/24 07:47 71 71 18 100 11/27/24 07:36 69 16 100 11/27/24 07:30 11/27/24 07:03 68 18 98 11/27/24 06:00 72 28 H 89 L 11/27/24 05:48 96/59 L 11/27/24 05:48 96/59 L 11/27/24 05:48 96/59 L 11/27/24 05:48 96/59 L 11/27/24 05:48 73 29 H 86 L 11/27/24 05:06 68 22 97 02/08/25 04:47 103/64 11/27/24 04:45 69 14 97 11/27/24 04:21 69 32 H 94 11/27/24 03:47 109/61 11/27/24 03:39 69 18 99 11/27/24 03:00 77 22 97 11/27/24 02:47 108/66 11/27/24 02:42 70 20 99 11/27/24 02:03 71 27 H 99 11/27/24 01:47 115/66 11/27/24 01:45 70 18 97 11/27/24 01:27 70 30 H 97 O2 Del Method O2 Flow Rate 11/27/24 09:47 11/27/24 09:33 11/27/24 09:09 11/27/24 08:18 11/27/24 08:10 11/27/24 07:47 11/27/24 07:47 Nasal Cannula 13 11/27/24 07:36 11/27/24 07:30 Nasal Cannula 9 11/27/24 07:03 11/27/24 06:00 11/27/24 05:48 11/27/24 05:48 11/27/24 05:48 11/27/24 05:48 11/27/24 05:48 11/27/24 05:06 11/27/24 04:47 11/27/24 04:45 11/27/24 04:21 11/27/24 03:47 11/27/24 03:39 11/27/24 03:00 11/27/24 02:47 11/27/24 02:42 11/27/24 02:03 11/27/24 01:47 11/27/24 01:45 11/27/24 01:27 Laboratory Results Short CBC 11/27/24 Range/Units 04:53 WBC 17.24 H (4.8-10.8) K/ul Hgb 10.4 L (14.0-18.0) g/dl Hct 30.1 L (42.0-52.0) % Plt Count 230 (130-400) K/uL BMP 11/27/24 04:53 Sodium 140 Potassium 3.3 L D Chloride 97 L Carbon Dioxide 30 BUN 61 H Creatinine 6.59 H* D Glucose 185 H Calcium 9.0
--- NOTE | 2024-11-27 14:11 | Nephrology Progress Note ---
Date of Service November 27, 2024 Assessment & Plan (1) Peritoneal dialysis status: Plan: - Plan: continue routine PD this evening . Had 546 mls UF last night with all 2.5%. But nights before that very good UF for many days. Off bipap Now on NC. Breathing seems better we have pulled enough fluid that we can. BP is low and was started on Midodrine>>> better now For tonight will do all 2.5 w/ same prescription, ARDS being treated by primary team. Replace K , 40 meq today (2) Encephalopathy: Plan: resolved; ? lack of sleep ->>>>concern for early sepsis with elevated WBC, hypotension, altered MS, tachypnea on admission >> he is anuric so no point to UTI w/u; no PD peritonitis >>does have bacterial pneumonia and getting care for it (3) Accident due to mechanical fall without injury: Plan: follow up with primary service and when appropriate PT Admission and Anticipated Discharge Date Admission Date: November 19, 2024 Subjective Patient is seen and examined at bedside Appears comfortable on Nasal cannula, @ 546 UF today-- on PD Patient denies any chest pain, dyspnea Results & Data Vital Signs (Past 12 Hours) Vital Signs Temp Pulse Pulse Pulse Resp BP Pulse Ox 11/27/24 09:47 117/71 11/27/24 09:33 74 18 94 11/27/24 09:09 73 23 93 11/27/24 08:18 75 29 H 88 L 11/27/24 08:10 36.4 C L 71 18 11/27/24 07:47 103/71 11/27/24 07:47 71 71 18 100 11/27/24 07:36 69 16 100 11/27/24 07:30 11/27/24 07:03 68 18 98 11/27/24 06:00 72 28 H 89 L 11/27/24 05:48 96/59 L 11/27/24 05:48 96/59 L 11/27/24 05:48 96/59 L 11/27/24 05:48 96/59 L 11/27/24 05:48 73 29 H 86 L 11/27/24 05:06 68 22 97 11/27/24 04:47 103/64 11/27/24 04:45 69 14 97 11/27/24 04:21 69 32 H 94 11/27/24 03:47 109/61 11/27/24 03:39 69 18 99 11/27/24 03:00 77 22 97 11/27/24 02:47 108/66 11/27/24 02:42 70 20 99 O2 Del Method O2 Flow Rate 11/27/24 09:47 11/27/24 09:33 11/27/24 09:09 11/27/24 08:18 11/27/24 08:10 11/27/24 07:47 11/27/24 07:47 Nasal Cannula 13 11/27/24 07:36 11/27/24 07:30 Nasal Cannula 9 11/27/24 07:03 11/27/24 06:00 11/27/24 05:48 11/27/24 05:48 11/27/24 05:48 11/27/24 05:48 11/27/24 05:48 11/27/24 05:06 11/27/24 04:47 11/27/24 04:45 11/27/24 04:21 11/27/24 03:47 11/27/24 03:39 11/27/24 03:00 11/27/24 02:47 11/27/24 02:42 Laboratory Results 11/27/24 04:53 11/27/24 04:53
[2024-11-27] MEDS: INSULIN HUMAN NPH SC SCH (17:22)
[2024-11-27] MEDS: WARFARIN SOD 5 MG TAB PO SCH (17:22)
[2024-11-27] MEDS: LACTOBACILLUS ACIDOPHILUS 1 GM PACK PO SCH (18:07)
[2024-11-28 05:27] LABS: C Reactive Protein 3.18 mg/dl (0-0.5); Calcium 9.1 mg/dl (8.6-10.3); Creatinine Clr Calc Pharmacy 9.9 ml/min; Potassium 3.9 mmol/L (3.5-5.1)
[2024-11-28 05:35] LABS: INR 1.5 (0.9-1.1); Prothrombin Time 16.1 Seconds (9.0-12.0)
--- NOTE | 2024-11-28 10:05 | Nephrology Progress Note ---
Date of Service November 28, 2024 Assessment & Plan (1) Peritoneal dialysis status: Plan: - Plan: continue routine PD this evening . Had 815 mls UF last night with all 2.5%. But nights before that very good UF for many days. Off bipap Now on NC. Breathing better We have pulled enough fluid that we can. BP is was low, but better w/ Midodrine For tonight will do all 2.5 w/ same prescription, ARDS being treated by primary team. (2) Encephalopathy: Plan: resolved; ? lack of sleep ->>>>concern for early sepsis with elevated WBC, hypotension, altered MS, tachypnea on admission >> he is anuric so no point to UTI w/u; no PD peritonitis >>does have bacterial pneumonia and getting care for it (3) Accident due to mechanical fall without injury: Plan: follow up with primary service and when appropriate PT Admission and Anticipated Discharge Date Admission Date: November 19, 2024 Subjective Patient is seen and examined at bedside Appears comfortable on Nasal cannula on 9 l @ 815 UF today-- on PD Patient denies any chest pain, dyspnea Review of Systems 2 Review of Systems: All systems reviewed & are unremarkable except as noted in HPI & below Results & Data Vital Signs (Past 12 Hours) Vital Signs Temp Pulse Pulse Pulse Resp BP Pulse Ox 11/28/24 08:19 36.6 C 88 18 11/28/24 08:01 78 18 94 11/28/24 04:42 76 27 H 89 L 11/28/24 04:27 75 24 93 11/28/24 04:18 74 22 93 11/28/24 04:17 115/68 11/28/24 03:51 72 19 98 11/28/24 03:45 73 21 99 11/28/24 03:30 73 21 95 11/28/24 03:03 73 31 H 93 11/28/24 03:00 36.6 C 11/28/24 02:57 73 31 H 91 11/28/24 02:42 74 39 H 91 11/28/24 02:27 78 24 88 L 11/28/24 02:03 75 23 89 L 11/28/24 01:48 73 31 H 89 L 11/28/24 01:30 75 34 H 89 L 11/28/24 01:12 74 29 H 89 L 11/28/24 01:03 74 22 87 L 11/28/24 00:51 74 17 91 11/28/24 00:48 74 20 90 11/28/24 00:36 73 17 89 L 11/28/24 00:18 76 21 91 11/28/24 00:00 74 20 91 11/27/24 23:57 73 18 91 11/27/24 23:47 116/68 11/27/24 23:30 72 20 92 11/27/24 23:27 72 21 92 11/27/24 23:12 72 20 92 11/27/24 23:09 72 20 93 11/27/24 22:54 73 19 95 11/27/24 22:21 73 20 95 11/27/24 22:12 73 20 94 O2 Del Method O2 Flow Rate 11/28/24 08:19 11/28/24 08:01 Nasal Cannula 9 11/28/24 04:42 11/28/24 04:27 11/28/24 04:18 11/28/24 04:17 11/28/24 03:51 11/28/24 03:45 11/28/24 03:30 11/28/24 03:03 11/28/24 03:00 11/28/24 02:57 11/28/24 02:42 11/28/24 02:27 11/28/24 02:03 11/28/24 01:48 11/28/24 01:30 11/28/24 01:12 11/28/24 01:03 11/28/24 00:51 11/28/24 00:48 11/28/24 00:36 11/28/24 00:18 11/28/24 00:00 11/27/24 23:57 11/27/24 23:47 11/27/24 23:30 11/27/24 23:27 11/27/24 23:12 11/27/24 23:09 11/27/24 22:54 11/27/24 22:21 11/27/24 22:12 Laboratory Results 11/27/24 04:53 11/28/24 04:29
--- NOTE | 2024-11-28 13:42 | Hospitalist Progress Note ---
Date of Service November 28, 2024 Assessment & Plan (1) Encephalopathy: Plan 79-year-old male with PMH of PE/A-fib on Coumadin, hypertrophic CM, CAD, PVD, hypotension on midodrine, COPD/RLD, ESRD on PD, esophageal achalasia, cirrhosis, prostate cancer status post surgery, MGUS, chronic anemia [baseline hemoglobin of 10-11], cognitive impairment, inclusion body myositis, past tobacco abuse who was recently admitted for COVID - 19 pneumonia/sp decdron Rx for 3-4 days/discharged to [facility] on room air presents w/ c/o increasing weakness, fall (no head trauma, witnessed fall). Pt looked SOB and shaky per [facility] and temp elevation of 100F per H. Pt denied chest pain, LOC, abdominal pain. Severe sepsis-POA Bilateral pneumonia Acute metabolic encephalopathy: likely 2/2 acute illness iso underlying cognitive impairment. Acute hypoxic respiratory failure Recent COVID-19 infection ARDS --CT chest with interval early bilateral pneumonia Compared to CT chest on 11/12 --ECHO: Mild concentric LVH. Asymmetric left ventricular hypertrophy involving the septum with maximal thickness of 2.1 cm. Outflow tract obstruction not identified. Cavity obliteration at mid ventricle. Left ventricle is hyperdynamic. EF > 70%. Aortic valve sclerosis mild, without significant aortic valve stenosis. --Peritoneal fluid analysis-no organism and wbc --Serology positive for COVID-19 -Blood cultures- negative to date Continue BiPAP/oxygen mask as needed Appreciate pulmonology input Completed doxycycline course Continue Zosyn--will complete the antibiotic course tomorrow Continue Decadron>> plan to transition to prednisone as able Continue supplemental oxygen as needed CRP trending down Will repeat chest x-ray tomorrow Requiring 9 L supplemental oxygen to maintain saturations today Diarrhea Likely due to antibiotics Stool for C. difficile negative Monitor volume status Diarrhea improving Imodium as needed Hypotension H/O chronic hypotension Continue midodrine Blood pressure stable Suspected dysphagia Aspiration precaution Speech eval Continue diet as recommended by speech therapy Troponin elevation: secondary to illness in the setting of chronic kidney dysfunction, history ESRD on PD Pt denies chest pain. ESRD on PD: Continue dialysis as per nephrology Appreciate nephrology help Hyperglycemia secondary to diabetes HbA1c 6.7 Continue insulin while hospitalized Monitor BGs Other chronic medical conditions: Continue with/resume home meds as and when able. H/O PE/A-fib (early TBS) on Coumadin--initially held due to supratherapeutic INR. Continue metoprolol, amiodarone. Monitor INR. Coumadin resumed Hypertrophic cardiomyopathy CAD/ PVD COPD/RLD as per records Cirrhosis on imaging from past admission Prostate cancer S/P surgery Chronic anemia, Hb stable cognitive impairment, patient mentating well Inclusion body myositis as per records, patient to decide on steroid Rx recommendation from local neurologist following recent outpatient visit Subclinical hypothyroidism , needs repeat thyroid function test in 6 weeks as outpatient Past tobacco abuse. DVT Px: Continue Coumadin CODE STATUS Full code Admission and Anticipated Discharge Date Admission Date: November 19, 2024 Subjective Patient is seen and examined at bedside Diarrhea slowly improving Offers no new complaints Requiring 9 L supplemental oxygen to maintain saturations Discussed with nephrology today Patient denies any chest pain, dyspnea, abd pain Review of Systems Review of Systems: All systems reviewed & are unremarkable except as noted in Subjective Physical Exam Physical Exam: Physical Exam: Vitals signs as noted above General Appearance:Moderately built and nourished, no apparent distress Head: normocephalic, Atraumatic Eyes: normal inspection, EOMI Neck: supple, Trachea midline Respiratory/Chest: Decreased breath sounds, CTA, No accessory muscle use Cardiovascular: S1, S2, No murmur Abdomen/GI:Soft, Non tender, Bowel sounds present Extremities/Musculoskeletal:normal inspection, no edema Neurologic/Psych:AAOX3, grossly no focal neurological deficits Skin: normal color, warm Results & Data Results & Data Vital Signs (Past 12 Hours) Vital Signs Temp Pulse Pulse Pulse Resp BP Pulse Ox 11/28/24 12:30 11/28/24 08:19 36.6 C 88 18 11/28/24 08:01 78 18 94 11/28/24 07:30 11/28/24 04:42 76 27 H 89 L 11/28/24 04:27 75 24 93 11/28/24 04:18 74 22 93 11/28/24 04:17 115/68 11/28/24 03:51 72 19 98 11/28/24 03:45 73 21 99 11/28/24 03:30 73 21 95 11/28/24 03:03 73 31 H 93 11/28/24 03:00 36.6 C 11/28/24 02:57 73 31 H 91 11/28/24 02:42 74 39 H 91 11/28/24 02:27 78 24 88 L 11/28/24 02:03 75 23 89 L 11/28/24 01:48 73 31 H 89 L O2 Del Method O2 Flow Rate 11/28/24 12:30 High Flow Nasal Cannula 9 11/28/24 08:19 11/28/24 08:01 Nasal Cannula 9 11/28/24 07:30 Room Air 11/28/24 04:42 11/28/24 04:27 11/28/24 04:18 11/28/24 04:17 11/28/24 03:51 11/28/24 03:45 11/28/24 03:30 11/28/24 03:03 11/28/24 03:00 11/28/24 02:57 11/28/24 02:42 11/28/24 02:27 11/28/24 02:03 11/28/24 01:48 Laboratory Results BMP 11/28/24 04:29 Sodium 137 Potassium 3.9 Chloride 95 L Carbon Dioxide 30 BUN 60 H Creatinine 6.66 H* Glucose 212 H Calcium 9.1
--- NOTE | 2024-11-28 15:12 | Pharmacy Report ---
Pharmacy Glycemic Short Note 2 - Date of Service November 28, 2024 - Glycemic Short BSG Results (Last 24 hours): 11/27/24 11/27/24 11/28/24 16:17 20:47 04:29 Glucose 212 H POC Glucose 132 H 249 H 11/28/24 11/28/24 07:16 11:06 Glucose POC Glucose 226 H 156 H OUTPATIENT ANTIDIABETIC REGIMEN: * 6.4% 11/13/24 * N/A ASSESSMENT: 11/28: * Monster received 33 units of insulin yesterday (8 Lantus, 10 insulin NPH) * IV dexamethasone 6mg continues, will give a small dose (~0.1 units/kg) of long-acting basal insulin to help cover steroid induced hyperglycemia * Insulin NPH re-initiated yesterday evening around when peritoneal dialysis begins, NPH vs Lantus since duration of action would better cover dialysate induced hyperglycemia. Dose increased from yesterday as BSGs overnight still elevated. * No changes to NovoLog since titrating NPH today. He is finishing up his course of ABX for pneumonia. 11/26: * BSGs [phone]/dl the last 24h. Received 13units of bolus insulin yesterday. * Continues on dexamethasone 6mg IV daily, zosyn, and PD overnight. PD dextrose concentration for tonight unclear. * NPH was held yesterday evening per provider d/t decreased PO. Continues w/ decreased PO intake today. Will switch to Lantus 8 units X 1 dose today with lunch to provide basal coverage given decreased PO. No change to Novolog for today. 11/25 * Dexamethasone 6 mg IV continues * BSG wnl at lunch yesterday, but hyperglycemia noted in the evening and overnight, likely 2nd PD bags (6 bags of 4.25% dextrose). BSG back down to goal this AM. * Dialysate changing this evening per nephrology note - plans 6 bags of 2.5% dextrose, which is almost half of the dextrose as compared to yesterday. Will continue NPH given at 1700, but will reduce slightly 2nd significant dextrose reduction in dialysate * Correction factor seems to be working after dextrose load in PD finishes, based on BSG's in goal range x2 the last 2 days after PD. Will therefore leave correction factor as-is. 2 * Patient with significant hyperglycemia overnight- possibly d/t increase in dextrose content in PD bags and steroids * Patient was given 20 units of lantus and started on weight based stress of 3 novolog. Trended down overnight. * Patient currently has diet ordered but minimal intake. Dexamethasone 6 mg daily ordered. * Will trial NPH with dinner to help cover PD bags rather than long acting basal * Continue weight based of 3 novolog for now with overnight checks. Caution with IV regular bolus insulin d/t hypokalemia PLAN FOR INPATIENT GLYCEMIC CONTROL: * Basal insulin * Lantus 8 units SQ daily with IV dexamethasone * Insulin NPH 15 units SQ daily @1700 approximately when PD begins * Bolus insulin * NovoLog per scale ACHS or Q6hrs while NPO * Goal Range: Low 110 mg/dL - High 140 mg/dL * Correction Factor: 20 mg/dL/unit * Nutritional / Prandial insulin per carb ratio of 1 unit per 7 grams CHO consumed
[2024-11-28] MEDS: WARFARIN SOD 6 MG TAB PO SCH (16:30)
[2024-11-28] MEDS: INSULIN HUMAN NPH SC SCH (17:19)
[2024-11-29] MEDS: INSULIN ASPART PER UNIT CHARGE SC SCH (01:51)
[2024-11-29 07:14] LABS: Hematocrit (blood only) 31.6 % (42.0-52.0); Mean Corpuscular Hemoglobin 29.5 pg (25.0-34.0); Mean Corpuscular Hgb Conc 34.8 g/dL (32.0-36.0); Mean Corpuscular Volume 84.7 fL (80.0-100.0); Mean Platelet Volume 11.3 fL (9.4-12.4); Nucleated RBC # (auto) 0.02 K/uL (0.00-0.12); Nucleated RBC % (auto) 0.1 %; Platelet Count 259 K/uL (130-400); RDW Coefficient of Variation 15.2 % (11.5-14.5); RDW Standard Deviation 46.1 fL (36.4-46.3); Red Blood Count 3.73 M/uL (4.70-6.10); White Blood Count 14.96 K/ul (4.8-10.8)
[2024-11-29 07:37] LABS: INR 2.1 (0.9-1.1); Prothrombin Time 21.1 Seconds (9.0-12.0)
[2024-11-29 07:43] LABS: BUN Creatinine Ratio 9.7 (10-20); Calcium 8.7 mg/dl (8.6-10.3); Creatinine Clr Calc Pharmacy 9.9 ml/min; Potassium 3.7 mmol/L (3.5-5.1)
--- NOTE | 2024-11-29 08:14 | XRay Report ---
EXAM: XR chest 1V portable CLINICAL HISTORY: Covid. TECHNIQUE: X-ray image of the chest obtained in 1 frontal projection. COMPARISON: Prior X-ray dated 11/27/2024 for comparison. FINDINGS: Pulmonary Parenchyma: Unchanged prominent bilateral parahilar markings and atelectatic bands in basal lung zones. Unchanged obscuration of right CP angle likely pleural effusion. Heart and Mediastinum: Heart size and shape are normal. No mediastinal widening or masses. No hilar or mediastinal lymphadenopathy. Bony Thorax: The bony thorax appears intact without fractures or deformities. Soft Tissues: Soft tissues overlying the chest wall are unremarkable. IMPRESSION: 1. Unchanged prominent bilateral parahilar markings and atelectatic bands in basal lung zones. 2. Unchanged obscuration of right CP angle likely pleural effusion. Electronically signed by Torie Merino 11-29-2024 08:13 AM
--- NOTE | 2024-11-29 13:23 | Nephrology Progress Note ---
Date of Service November 29, 2024 Assessment & Plan (1) Peritoneal dialysis status: Plan: continue rutine PD this evening w/ RX geared to remove more fluid to optimize breathing . Had 815 mls UF 2/8 PM with all 2.5%. But nights before that very good UF for many days. overall 2.2 L neg on admission Off bipap Now on NC. Breathing better but still tenuous >continue RX to pull fluid >one 4.25% and two 2.5% bags bags; still on lower 2.5L fill >continue midodrine , dose ok ARDS being treated by primary team. Encouraged pt to do PT as able (2) Encephalopathy: Plan: resolved; ? lack of sleep; also getting care for bacterial PNA w/ zosyn; WBC down to 15 K today; hgb stable at 11 ->>>>concern for early sepsis with elevated WBC, hypotension, altered MS, tachypnea on admission >> he is anuric so no point to UTI w/u; no PD peritonitis (3) Accident due to mechanical fall without injury: Plan: follow up with primary service and when appropriate PT Admission and Anticipated Discharge Date Admission Date: November 19, 2024 Subjective seen on mid AM rounds; son at bedside; pt from 9>5L 02NC; 1L UF ON; SBP holding; pt refusing PT/OT "b/c I just don't feel like it" but also wants to get out of hospital >> so encouraged him to reconsider doin gthis/ not aware of sob; no constipation Review of Systems 2 Review of Systems: All systems reviewed & are unremarkable except as noted in Subjective Physical Exam 2 Constitutional: well developed, well nourished, + frail appearing and cooperative; no acute distress and no altered mental status Eyes: EOM intact bilaterally ENMT: Mouth: + dry oral mucous membranes Respiratory: normal respiratory effort, able to speak in complete sentences and + tachypneic; no cough Auscultation: + diminished lung sounds and + wheezes (occasional) Cardiovascular: Rate/Rhythm: regular rate and regular rhythm Heart Sounds: + murmur Extremities: no edema Gastrointestinal (Abdomen): Inspection/Auscultation: normal bowel sounds and + abdominal surgical drain present (PD catheter) Percussion/Palpation: abdomen soft; abdomen nontender Musculoskeletal: Extremities: strength 5/5 throughout Skin: no rashes, warm and dry Results & Data Vital Signs (Past 12 Hours) Vital Signs Temp Pulse Pulse Pulse Resp BP Pulse Ox 11/29/24 11:38 36.4 C L 72 19 122/66 95 11/29/24 09:55 36.4 C L 69 24 11/29/24 08:00 65 11/29/24 08:00 11/29/24 07:49 70 22 92 11/29/24 07:37 36.4 C L 67 19 109/63 96 11/29/24 03:04 36.3 C L 73 30 H 126/70 91 O2 Del Method O2 Flow Rate 11/29/24 11:38 High Flow Nasal Cannula 5 11/29/24 09:55 11/29/24 08:00 11/29/24 08:00 High Flow Nasal Cannula 5 11/29/24 07:49 Nasal Cannula 5 11/29/24 07:37 Free Flow/Blow-by 5 11/29/24 03:04 High Flow Nasal Cannula 9 Laboratory Results 11/29/24 06:08 11/29/24 06:08
--- NOTE | 2024-11-29 13:52 | Pharmacy Report ---
Pharmacy Glycemic Short Note 2 - Date of Service November 29, 2024 - Glycemic Short BSG Results (Last 24 hours): 11/28/24 11/28/24 11/29/24 16:26 20:36 01:15 Glucose POC Glucose 116 H 241 H 195 H 11/29/24 11/29/24 11/29/24 04:26 06:08 07:39 Glucose 146 H POC Glucose 129 H 181 H 11/29/24 11:34 Glucose POC Glucose 117 H OUTPATIENT ANTIDIABETIC REGIMEN: * 6.4% 11/13/24 * N/A ASSESSMENT: 11/29: * BSGs largely within goal the last 24h: [phone]/dl. Received 23 units of basal insulin and 21 units of bolus insulin yesterday. * Continues on IV dexamethasone 6mg daily, zosyn and overnight PD. Minimal documented PO intake today. * Continue Lantus 8 units daily to provide coverage of steroids. NPH 15 units at dinner for PD coverage. No change to Novolog parameters - will stop overnight checks given evening NPH. 11/28: * Monster received 33 units of insulin yesterday (8 Lantus, 10 insulin NPH) * IV dexamethasone 6mg continues, will give a small dose (~0.1 units/kg) of long-acting basal insulin to help cover steroid induced hyperglycemia * Insulin NPH re-initiated yesterday evening around when peritoneal dialysis begins, NPH vs Lantus since duration of action would better cover dialysate induced hyperglycemia. Dose increased from yesterday as BSGs overnight still elevated. * No changes to NovoLog since titrating NPH today. He is finishing up his course of ABX for pneumonia. 11/26: * BSGs [phone]/dl the last 24h. Received 13units of bolus insulin yesterday. * Continues on dexamethasone 6mg IV daily, zosyn, and PD overnight. PD dextrose concentration for tonight unclear. * NPH was held yesterday evening per provider d/t decreased PO. Continues w/ decreased PO intake today. Will switch to Lantus 8 units X 1 dose today with lunch to provide basal coverage given decreased PO. No change to Novolog for today. 11/25 * Dexamethasone 6 mg IV continues * BSG wnl at lunch yesterday, but hyperglycemia noted in the evening and overnight, likely 2nd PD bags (6 bags of 4.25% dextrose). BSG back down to goal this AM. * Dialysate changing this evening per nephrology note - plans 6 bags of 2.5% dextrose, which is almost half of the dextrose as compared to yesterday. Will continue NPH given at 1700, but will reduce slightly 2nd significant dextrose reduction in dialysate * Correction factor seems to be working after dextrose load in PD finishes, based on BSG's in goal range x2 the last 2 days after PD. Will therefore leave correction factor as-is. 2 * Patient with significant hyperglycemia overnight- possibly d/t increase in dextrose content in PD bags and steroids * Patient was given 20 units of lantus and started on weight based stress of 3 novolog. Trended down overnight. * Patient currently has diet ordered but minimal intake. Dexamethasone 6 mg daily ordered. * Will trial NPH with dinner to help cover PD bags rather than long acting basal * Continue weight based of 3 novolog for now with overnight checks. Caution with IV regular bolus insulin d/t hypokalemia PLAN FOR INPATIENT GLYCEMIC CONTROL: * Basal insulin * Lantus 8 units SQ daily with IV dexamethasone * Insulin NPH 15 units SQ daily @1700 approximately when PD begins * Bolus insulin * NovoLog per scale ACHS or Q6hrs while NPO * Goal Range: Low 110 mg/dL - High 140 mg/dL * Correction Factor: 20 mg/dL/unit * Nutritional / Prandial insulin per carb ratio of 1 unit per 7 grams CHO consumed
--- NOTE | 2024-11-29 14:10 | Hospitalist Progress Note ---
Date of Service November 29, 2024 Assessment & Plan (1) Encephalopathy: Plan 79-year-old male with PMH of PE/A-fib on Coumadin, hypertrophic CM, CAD, PVD, hypotension on midodrine, COPD/RLD, ESRD on PD, esophageal achalasia, cirrhosis, prostate cancer status post surgery, MGUS, chronic anemia [baseline hemoglobin of 10-11], cognitive impairment, inclusion body myositis, past tobacco abuse who was recently admitted for COVID - 19 pneumonia/sp decdron Rx for 3-4 days/discharged to [facility] on room air presents w/ c/o increasing weakness, fall (no head trauma, witnessed fall). Pt looked SOB and shaky per [facility] and temp elevation of 100F per H. Pt denied chest pain, LOC, abdominal pain. Severe sepsis-POA Bilateral pneumonia Acute metabolic encephalopathy: likely 2/2 acute illness iso underlying cognitive impairment. Acute hypoxic respiratory failure Recent COVID-19 infection ARDS --CT chest with interval early bilateral pneumonia Compared to CT chest on 11/12 --ECHO: Mild concentric LVH. Asymmetric left ventricular hypertrophy involving the septum with maximal thickness of 2.1 cm. Outflow tract obstruction not identified. Cavity obliteration at mid ventricle. Left ventricle is hyperdynamic. EF > 70%. Aortic valve sclerosis mild, without significant aortic valve stenosis. --Peritoneal fluid analysis-no organism and wbc --Serology positive for COVID-19 -Blood cultures- negative to date Continue BiPAP/oxygen mask as needed Appreciate pulmonology input Completed doxycycline course Continue Zosyn--will complete Zosyn course today Continue Decadron>> plan to transition to prednisone as able Continue supplemental oxygen as needed CRP trending down Less supplemental oxygen requirement today Chest x-ray today remains unchanged Diarrhea Likely due to antibiotics Stool for C. difficile negative Monitor volume status Diarrhea resolved Imodium as needed Hypotension H/O chronic hypotension Continue midodrine Blood pressure stable Suspected dysphagia Aspiration precaution Speech eval Continue diet as recommended by speech therapy Troponin elevation: secondary to illness in the setting of chronic kidney dysfunction, history ESRD on PD Pt denies chest pain. ESRD on PD: Continue dialysis as per nephrology Appreciate nephrology help Hyperglycemia secondary to diabetes HbA1c 6.7 Continue insulin while hospitalized Monitor BGs Other chronic medical conditions: Continue with/resume home meds as and when able. H/O PE/A-fib (early TBS) on Coumadin--initially held due to supratherapeutic INR. Continue metoprolol, amiodarone. Monitor INR. Coumadin resumed Hypertrophic cardiomyopathy CAD/ PVD COPD/RLD as per records Cirrhosis on imaging from past admission Prostate cancer S/P surgery Chronic anemia, Hb stable cognitive impairment, patient mentating well Inclusion body myositis as per records, patient to decide on steroid Rx recommendation from local neurologist following recent outpatient visit Subclinical hypothyroidism , needs repeat thyroid function test in 6 weeks as outpatient Past tobacco abuse. DVT Px: Continue Coumadin CODE STATUS Full code Admission and Anticipated Discharge Date Admission Date: November 19, 2024 Subjective Patient is seen and examined at bedside Offers no new complaints Refused physical therapy evaluation this morning Saturating well on 5 L supplemental oxygen Updated patient's son over the phone Patient denies any chest pain, dyspnea, abd pain, nausea, vomiting Review of Systems Review of Systems: All systems reviewed & are unremarkable except as noted in Subjective Physical Exam Physical Exam: Physical Exam: Vitals signs as noted above General Appearance:Moderately built and nourished, no apparent distress Head: normocephalic, Atraumatic Eyes: normal inspection, EOMI Neck: supple, Trachea midline Respiratory/Chest: Decreased breath sounds, CTA, No accessory muscle use Cardiovascular: S1, S2, No murmur Abdomen/GI:Soft, Non tender, Bowel sounds present Extremities/Musculoskeletal:normal inspection, no edema Neurologic/Psych:AAOX3, grossly no focal neurological deficits Skin: normal color, warm Results & Data Results & Data Vital Signs (Past 12 Hours) Vital Signs Temp Pulse Pulse Pulse Resp BP Pulse Ox 11/29/24 11:38 36.4 C L 72 19 122/66 95 11/29/24 09:55 36.4 C L 69 24 11/29/24 08:00 65 11/29/24 08:00 11/29/24 07:49 70 22 92 11/29/24 07:37 36.4 C L 67 19 109/63 96 11/29/24 03:04 36.3 C L 73 30 H 126/70 91 O2 Del Method O2 Flow Rate 11/29/24 11:38 High Flow Nasal Cannula 5 11/29/24 09:55 11/29/24 08:00 11/29/24 08:00 High Flow Nasal Cannula 5 11/29/24 07:49 Nasal Cannula 5 11/29/24 07:37 Free Flow/Blow-by 5 11/29/24 03:04 High Flow Nasal Cannula 9 Laboratory Results Short CBC 11/29/24 Range/Units 06:08 WBC 14.96 H (4.8-10.8) K/ul Hgb 11.0 L (14.0-18.0) g/dl Hct 31.6 L (42.0-52.0) % Plt Count 259 (130-400) K/uL [facility] 11/29/24 06:08 Sodium 138 Potassium 3.7 Chloride 94 L Carbon Dioxide 29 BUN 64 H Creatinine 6.62 H* Glucose 146 H Calcium 8.7
[2024-11-29] MEDS: WARFARIN SOD 5 MG TAB PO SCH (17:14)
[2024-11-30] MEDS: INSULIN ASPART PER UNIT CHARGE SC SCH (00:15)
[2024-11-30 06:57] LABS: BUN Creatinine Ratio 9.9 (10-20); Calcium 8.5 mg/dl (8.6-10.3); Creatinine Clr Calc Pharmacy 10.6 ml/min
[2024-11-30 07:08] LABS: INR 3.1 (0.9-1.1); Prothrombin Time 30.5 Seconds (9.0-12.0)
[2024-11-30] MEDS: POTASSIUM CHLORIDE CRTAB 20 MEQ TABCR PO ONE (12:35)
--- NOTE | 2024-11-30 13:19 | Nephrology Progress Note ---
Date of Service November 30, 2024 Assessment & Plan (1) Peritoneal dialysis status: Plan: continue routine PD this evening w/ RX geared to remove more fluid to optimize breathing . Had 815 mls UF 2/8 PM with all 2.5%. Had 997 mL UF on 2/10 PM w/ 10/21 red//10/21 green. But nights before that very good UF for many days. overall 2.1 L neg on admission Off bipap Now on NC but still w/ high needs w/ activity. Breathing better but still tenuous though 02 needs down a slight bit >continue RX to pull fluid > all 4.25% bags today; still on lower 2.5L fill >continue midodrine , dose ok ARDS being treated by primary team. Appreciate/agree w/ appropriate K supplementation; continue v8 as well daily bmp >>pls have SW start to look to see if there are any facilities that can do rehab and work w/ PD pts >> if [place], [place] [facility] [place] [facility] [place] may be an option); otherwise will have to at least consider in center HD as a bridge Encouraged pt to do PT as able >> extremely weak; 3 person assist to transfer. (2) Encephalopathy: Plan: resolved; ? lack of sleep; also getting care for bacterial PNA w/ zosyn; WBC down to 15 K today; hgb stable at 11 ->>>>concern for early sepsis with elevated WBC, hypotension, altered MS, tachypnea on admission >> he is anuric so no point to UTI w/u; no PD peritonitis (3) Accident due to mechanical fall without injury: Plan: follow up with primary service and when appropriate PT Admission and Anticipated Discharge Date Admission Date: November 19, 2024 Subjective down to 4L 02NC; had 40 mEq po K x 1; also has low Na V8 at bedside which is how we control /increase K as OP. having diarrhea; still a 3 person assist bed to chair and sats to 80s w/ rolling in bed or any activity; had been at 4L but up to 7 L with BM and up to chair. subjectively breathing better Review of Systems 2 Review of Systems: All systems reviewed & are unremarkable except as noted in Subjective Physical Exam 2 Constitutional: well developed, well nourished, + frail appearing and cooperative; no acute distress and no altered mental status up in chair on 7L Eyes: EOM intact bilaterally ENMT: Mouth: + dry oral mucous membranes Respiratory: normal respiratory effort, able to speak in complete sentences and + tachypneic; no labored breathing and no cough Auscultation: + diminished lung sounds (extremely), + crackles, + wheezes (occasional) and + bronchovesicular breath sounds Cardiovascular: Rate/Rhythm: regular rate and regular rhythm Heart Sounds: + murmur Extremities: no edema Gastrointestinal (Abdomen): Inspection/Auscultation: normal bowel sounds and + abdominal surgical drain present (PD catheter) Percussion/Palpation: abdomen soft; abdomen nontender Musculoskeletal: Extremities: strength 5/5 throughout Skin: no rashes, warm and dry Results & Data Vital Signs (Past 12 Hours) Vital Signs Temp Pulse Pulse Pulse Resp BP Pulse Ox 11/30/24 11:56 36.7 C 80 16 118/66 97 11/30/24 09:00 11/30/24 08:30 36.8 C 73 23 11/30/24 08:30 76 20 111/71 91 11/30/24 08:00 36.8 C 88 16 145/108 H 98 11/30/24 07:17 69 11/30/24 03:58 16 96 11/30/24 02:45 93 O2 Del Method O2 Flow Rate 11/30/24 11:56 Nasal Cannula 4 11/30/24 09:00 Nasal Cannula 5 11/30/24 08:30 11/30/24 08:30 Nasal Cannula 4 11/30/24 08:00 Nasal Cannula 4 11/30/24 07:17 11/30/24 03:58 Nasal Cannula 4 11/30/24 02:45 Nasal Cannula 6 Laboratory Results 11/29/24 06:08 11/30/24 05:50
--- NOTE | 2024-11-30 16:34 | Hospitalist Progress Note ---
Date of Service November 30, 2024 Assessment & Plan (1) Encephalopathy: Plan 79-year-old male with PMH of PE/A-fib on Coumadin, hypertrophic CM, CAD, PVD, hypotension on midodrine, COPD/RLD, ESRD on PD, esophageal achalasia, cirrhosis, prostate cancer status post surgery, MGUS, chronic anemia [baseline hemoglobin of 10-11], cognitive impairment, inclusion body myositis, past tobacco abuse who was recently admitted for COVID - 19 pneumonia/sp decdron Rx for 3-4 days/discharged to [facility] on room air presents w/ c/o increasing weakness, fall (no head trauma, witnessed fall). Pt looked SOB and shaky per [facility] and temp elevation of 100F per H. Pt denied chest pain, LOC, abdominal pain. Severe sepsis-POA Bilateral pneumonia Acute metabolic encephalopathy: likely 2/2 acute illness iso underlying cognitive impairment. Acute hypoxic respiratory failure Recent COVID-19 infection ARDS --CT chest with interval early bilateral pneumonia Compared to CT chest on 11/12 --ECHO: Mild concentric LVH. Asymmetric left ventricular hypertrophy involving the septum with maximal thickness of 2.1 cm. Outflow tract obstruction not identified. Cavity obliteration at mid ventricle. Left ventricle is hyperdynamic. EF > 70%. Aortic valve sclerosis mild, without significant aortic valve stenosis. --Peritoneal fluid analysis-no organism and wbc --Serology positive for COVID-19 -Blood cultures- negative to date Continue BiPAP/oxygen mask as needed Appreciate pulmonology input Completed doxycycline course Completed Zosyn course Continue Decadron>> plan to transition to prednisone as able CRP trending down Down to 4 L supplemental oxygen Will recheck chest x-ray, CRP tomorrow PT recommends SNF placement Diarrhea Likely due to antibiotics Stool for C. difficile negative Monitor volume status Diarrhea improving Imodium as needed Hypotension H/O chronic hypotension Continue midodrine Blood pressure stable Suspected dysphagia Aspiration precaution Speech eval Continue diet as recommended by speech therapy Troponin elevation: secondary to illness in the setting of chronic kidney dysfunction, history ESRD on PD Pt denies chest pain. ESRD on PD: Continue dialysis as per nephrology Appreciate nephrology help Hyperglycemia secondary to diabetes HbA1c 6.7 Continue insulin while hospitalized Monitor BGs Other chronic medical conditions: Continue with/resume home meds as and when able. H/O PE/A-fib (early TBS) on Coumadin--initially held due to supratherapeutic INR. Continue metoprolol, amiodarone. Monitor INR. Coumadin resumed. INR 3.1 today. Hypertrophic cardiomyopathy CAD/ PVD COPD/RLD as per records Cirrhosis on imaging from past admission Prostate cancer S/P surgery Chronic anemia, Hb stable cognitive impairment, patient mentating well Inclusion body myositis as per records, patient to decide on steroid Rx recommendation from local neurologist following recent outpatient visit Subclinical hypothyroidism , needs repeat thyroid function test in 6 weeks as outpatient Past tobacco abuse. DVT Px: Continue Coumadin CODE STATUS Full code Disposition SNF as able Admission and Anticipated Discharge Date Admission Date: November 19, 2024 Subjective Patient is seen and examined at bedside Patient desaturates easily with minimal exertion Appetite slowly improving Patient offers no specific complaints Saturating well on 4 L supplemental oxygen at rest And has mild loose BM today Patient denies any chest pain, dyspnea, abd pain, nausea, vomiting Review of Systems Review of Systems: All systems reviewed & are unremarkable except as noted in Subjective Physical Exam Physical Exam: Physical Exam: Vitals signs as noted above General Appearance:Moderately built and nourished, no apparent distress Head: normocephalic, Atraumatic Eyes: normal inspection, EOMI Neck: supple, Trachea midline Respiratory/Chest: Decreased breath sounds, CTA, No accessory muscle use Cardiovascular: S1, S2, No murmur Abdomen/GI:Soft, Non tender, Bowel sounds present Extremities/Musculoskeletal:normal inspection, no edema Neurologic/Psych:AAOX3, grossly no focal neurological deficits Skin: normal color, warm Results & Data Results & Data Vital Signs (Past 12 Hours) Vital Signs Temp Pulse Pulse Pulse Resp BP Pulse Ox 11/30/24 16:12 36.7 C 73 24 117/72 11/30/24 13:35 93 11/30/24 11:56 36.7 C 80 16 118/66 97 11/30/24 09:00 11/30/24 08:30 36.8 C 73 23 11/30/24 08:30 76 20 111/71 91 11/30/24 08:00 36.8 C 88 16 145/108 H 98 11/30/24 07:17 69 O2 Del Method O2 Flow Rate 11/30/24 16:12 11/30/24 13:35 11/30/24 11:56 Nasal Cannula 4 11/30/24 09:00 Nasal Cannula 5 11/30/24 08:30 11/30/24 08:30 Nasal Cannula 4 11/30/24 08:00 Nasal Cannula 4 11/30/24 07:17 Laboratory Results [facility] 11/30/24 05:50 Sodium 139 Potassium 3.0 L Chloride 96 L Carbon Dioxide 28 BUN 61 H Creatinine 6.16 H* D Glucose 134 H Calcium 8.5 L
[2024-11-30] MEDS ORDERED: INSULIN HUMAN NPH SC SCH (17:00)
[2024-11-30] MEDS: INSULIN HUMAN NPH SC SCH (17:02)
[2024-11-30] MEDS: WARFARIN SOD 2 MG TAB PO SCH (17:26)
[2024-12-01 05:45] LABS: Hematocrit (blood only) 36.5 % (42.0-52.0); Hemoglobin 12.7 g/dl (14.0-18.0); Mean Corpuscular Hgb Conc 34.8 g/dL (32.0-36.0); Mean Corpuscular Volume 86.1 fL (80.0-100.0); Mean Platelet Volume 11.1 fL (9.4-12.4); Platelet Count 333 K/uL (130-400); RDW Coefficient of Variation 15.9 % (11.5-14.5); RDW Standard Deviation 48.6 fL (36.4-46.3); Red Blood Count 4.24 M/uL (4.70-6.10); White Blood Count 18.43 K/ul (4.8-10.8)
[2024-12-01 06:10] LABS: INR 4.1 (0.9-1.1); Prothrombin Time 39.5 Seconds (9.0-12.0)
[2024-12-01] MEDS: LOPERAMIDE HCL 2 MG CAP PO PRN (06:13)
[2024-12-01 06:14] LABS: BUN Creatinine Ratio 9.6 (10-20); C Reactive Protein 2.46 mg/dl (0-0.5); Calcium 8.8 mg/dl (8.6-10.3); Creatinine Clr Calc Pharmacy 10.3 ml/min; Potassium 3.6 mmol/L (3.5-5.1)
--- NOTE | 2024-12-01 07:44 | XRay Report ---
EXAM: XR chest 1V portable CLINICAL HISTORY: COVID. TECHNIQUE: An X-ray image of the chest is obtained in PA projection. COMPARISON: CR dated 11/29/2024. FINDINGS: Pulmonary Parenchyma: Stable faint reticular densities were noted at both lower lung zones. Blunting of right costophrenic angle suggests a small effusion decreased in amount since the prior study. Lungs are clear bilaterally. No evidence of consolidation, collapse, or focal opacities. No pulmonary nodules are identified. Heart and Mediastinum: Heart size and shape are normal. No mediastinal widening or masses. No hilar or mediastinal lymphadenopathy. Bony Thorax: The bony thorax appears intact without fractures or deformities. Soft Tissues: Soft tissues overlying the chest wall are unremarkable. IMPRESSION: 1. Stable faint reticular densities were noted at both lower lung zones. 2. Blunting of the right costophrenic angle suggests a small effusion decreased in amount since the prior study. 3. No other interval changes. Electronically signed by Torie Merino 12-01-2024 07:44 AM
--- NOTE | 2024-12-01 12:11 | Hospitalist Progress Note ---
Date of Service December 01, 2024 Assessment & Plan (1) Encephalopathy: Plan 79-year-old male with PMH of PE/A-fib on Coumadin, hypertrophic CM, CAD, PVD, hypotension on midodrine, COPD/RLD, ESRD on PD, esophageal achalasia, cirrhosis, prostate cancer status post surgery, MGUS, chronic anemia [baseline hemoglobin of 10-11], cognitive impairment, inclusion body myositis, past tobacco abuse who was recently admitted for COVID - 19 pneumonia/sp decdron Rx for 3-4 days/discharged to [facility] on room air presents w/ c/o increasing weakness, fall (no head trauma, witnessed fall). Severe sepsis-POA Bilateral pneumonia Acute metabolic encephalopathy: likely 2/2 acute illness iso underlying cognitive impairment. Acute hypoxic respiratory failure COVID-19 infection ARDS --CT chest with interval early bilateral pneumonia Compared to CT chest on 11/12 --ECHO: Mild concentric LVH. Asymmetric left ventricular hypertrophy involving the septum with maximal thickness of 2.1 cm. Outflow tract obstruction not identified. Cavity obliteration at mid ventricle. Left ventricle is hy perdynamic. EF > 70%. Aortic valve sclerosis mild, without significant aortic valve stenosis. --Peritoneal fluid analysis-no organism and wbc --Serology positive for COVID-19 --Blood cultures- negative to date Appreciate pulmonology input Completed zosyn/doxycycline course CRP trending down Currently on dexamethasone to complete 10 day treatement Continue to wean oxygen as tolerated PT recommends SNF placement Diarrhea Likely due to antibiotics Stool for C. difficile negative Monitor volume status Diarrhea improving Imodium as needed Hypotension H/O chronic hypotension Continue midodrine Blood pressure currently stable Suspected dysphagia Aspiration precaution Speech eval and recs noted Troponin elevation: secondary to illness in the setting of chronic kidney dysfunction, history ESRD on PD Pt denies chest pain. ESRD on PD: Continue dialysis as per nephrology Hyperglycemia secondary to diabetes HbA1c 6.7 Continue insulin while hospitalized Monitor BGs H/O PE/A-fib (early TBS) On Coumadin--initially held due to supratherapeutic INR. INR is supratherapeutic today at 4.1 Warfarin held. Monitor Continue metoprolol, amiodarone. Other chronic medical conditions: Continue withe home meds Hypertrophic cardiomyopathy CAD/ PVD COPD/RLD as per records Cirrhosis on imaging from past admission Prostate cancer S/P surgery Chronic anemia, Hb stable Cognitive impairment, patient mentating well Inclusion body myositis as per records, patient to decide on steroid Rx recommendation from local neurologist following recent outpatient visit Subclinical hypothyroidism , needs repeat thyroid function test in 6 weeks as outpatient Past tobacco abuse. CODE STATUS Full code I spent a total of 50 minutes coordinating, documenting and providing care for this patient excluding time spent in performance of separately billed services Admission and Anticipated Discharge Date Admission Date: November 19, 2024 Subjective Patient seen and examined Reports feeling tired Reports no cough, chest pain, SOB this AM No other complaints at this time Physical Exam Constitutional: + well hydrated; no acute distress Eyes: PERRL, conjunctivae normal, anicteric sclerae ENMT: external ear and nose normal, oropharynx normal Respiratory: On 4.5L NC, diminished breath sounds Cardiovascular: Rate/Rhythm: regular rate and regular rhythm Gastrointestinal (Abdomen): normal bowel sounds, soft, nontender, no hepatosplenomegaly Musculoskeletal: Right ankle edema (chronic per patient and RN) Neurologic: PERRL, EOMI, accommodation nl, no face palsy, no dysarthria Psychiatric: Alert and oriented to person and year only. Cooperative Results & Data Results & Data Vital Signs (Past 12 Hours) Vital Signs Temp Pulse Pulse Pulse Resp BP Pulse Ox 12/01/24 11:29 85 24 119/77 90 12/01/24 11:13 12/01/24 07:40 78 19 117/71 92 12/01/24 07:23 76 18 89 L 12/01/24 05:57 73 12/01/24 02:58 37 C 77 20 106/70 95 O2 Del Method O2 Flow Rate 12/01/24 11:29 High Flow Nasal Cannula 4.5 12/01/24 11:13 High Flow Nasal Cannula 5 12/01/24 07:40 Nasal Cannula 5 12/01/24 07:23 Nasal Cannula 6 12/01/24 05:57 12/01/24 02:58 High Flow Nasal Cannula Laboratory Results Abnormal lab results 11/30/24 11/30/24 12/01/24 Range/Units 16:39 20:34 05:26 WBC 18.43 H (4.8-10.8) K/ul RBC 4.24 L (4.70-6.10) M/uL Hgb 12.7 L (14.0-18.0) g/dl Hct 36.5 L (42.0-52.0) % RDW Std Deviation 48.6 H (36.4-46.3) fL RDW Coeff of Maureen 15.9 H (11.5-14.5) % PT 39.5 H (9.0-12.0) Seconds INR 4.1 H (0.9-1.1) Chloride 97 L (98-107) mmol/L Anion Gap 12 H (3-11) BUN 61 H (6-23) mg/dl Creatinine 6.34 H* (0.6-1.4) mg/dl BUN/Creatinine Ratio 9.6 L (10-20) Glucose 176 H (70-99(Fasting)) mg/dl POC Glucose 135 H 239 H (70-99) mg/dl C-Reactive Protein 2.46 H (0-0.5) mg/dl 12/01/24 12/01/24 Range/Units 07:38 11:28 WBC (4.8-10.8) K/ul RBC (4.70-6.10) M/uL Hgb (14.0-18.0) g/dl Hct (42.0-52.0) % RDW Std Deviation (36.4-46.3) fL RDW Coeff of Maureen (11.5-14.5) % PT (9.0-12.0) Seconds INR (0.9-1.1) Chloride (98-107) mmol/L Anion Gap (3-11) BUN (6-23) mg/dl Creatinine (0.6-1.4) mg/dl BUN/Creatinine Ratio (10-20) Glucose (70-99(Fasting)) mg/dl POC Glucose 166 H 119 H (70-99) mg/dl C-Reactive Protein (0-0.5) mg/dl
--- NOTE | 2024-12-01 14:08 | Nephrology Progress Note ---
Date of Service December 01, 2024 Assessment & Plan (1) Peritoneal dialysis status: Plan: continue routine PD this evening w/ RX again geared to remove more fluid to optimize breathing . Had 815 mls UF 2/8 PM with all 2.5%. Had 997 mL UF on 10 PM w/ 10/21 red/10/21 green. Had 2L UF on 11/30 w/ 4 red, 2 green. But nights before that very good UF for many days. overall 3.5 L neg on admission Off bipap Now on NC but still w/ high needs w/ activity. Breathing better but still tenuous though 02 needs down a slight bit >continue RX to pull fluid > 2 red, one green bag today; still on lower 2.5L fill >continue midodrine , dose ok ARDS being treated by primary team. Appreciate/agree w/ appropriate K supplementation; continue v8 as well daily bmp >>>THERE are no rehab facilities that do PD except one in [place] that does not have a mature PD program; favor temporary HD at [facility] (less intensive rehab for pt who is still 3-4 person asst and today too tired to get OOB) w/ on site HD and then transition back to PD; other possibility is to find out if family can do PD for the pt at rehab facility -called son Guido to discuss > son has been talking to admissions at [facility] as well about possibility of family doing PD at [facility] and I will d/w medical examiner there as well (think it unlikely this approach will be feasible); barring that will look at temp HD [facility] at [facility]; spent 16 minutes discussing w/ son who is aware will ask vascular to see pt so that if needed he could get TDC possibly Friday Encouraged pt to do PT as able >> extremely weak; 3 person assist to transfer. >>>>vascular surgery c/s placed; INR needs to be <2; plan is [facility] for 12/03 if can't stay on PD at rehab Care d/w Dr Tong by phone re modality, rehab options/orientation, 02 needs by phone; we are in agreement. also d/w JAMES Comer in addition to family. (2) Accident due to mechanical fall without injury: Plan: follow up with primary service and when appropriate PT Admission and Anticipated Discharge Date Admission Date: November 19, 2024 Subjective got 2L UF yesterday on PD; breathing a bit better (4.5L now; still desats w/ position changes); moving a bit more but still massive assist to maneuver; diarrhea improved Review of Systems 2 Review of Systems: All systems reviewed & are unremarkable except as noted in Subjective Physical Exam 2 Constitutional: well developed, well nourished, + frail appearing and cooperative; no acute distress and no altered mental status Eyes: EOM intact bilaterally ENMT: Mouth: + dry oral mucous membranes (very) Respiratory: normal respiratory effort, able to speak in complete sentences and + tachypneic; no labored breathing and no cough Auscultation: + diminished lung sounds (extremely), + crackles, + wheezes (occasional still) and + bronchovesicular breath sounds Cardiovascular: Rate/Rhythm: regular rate and regular rhythm Heart Sounds: + murmur Extremities: no edema Gastrointestinal (Abdomen): Inspection/Auscultation: normal bowel sounds and + abdominal surgical drain present (PD catheter) Percussion/Palpation: abdomen soft; abdomen nontender Musculoskeletal: Extremities: strength 5/5 throughout Skin: no rashes, warm and dry Results & Data Vital Signs (Past 12 Hours) Vital Signs Temp Pulse Pulse Pulse Resp BP Pulse Ox 12/01/24 11:29 85 24 119/77 90 12/01/24 11:13 12/01/24 08:45 36.4 C L 85 24 12/01/24 07:40 78 19 117/71 92 12/01/24 07:23 76 18 89 L 12/01/24 05:57 73 12/01/24 02:58 37 C 77 20 106/70 95 O2 Del Method O2 Flow Rate 12/01/24 11:29 High Flow Nasal Cannula 4.5 12/01/24 11:13 High Flow Nasal Cannula 5 12/01/24 08:45 12/01/24 07:40 Nasal Cannula 5 12/01/24 07:23 Nasal Cannula 6 12/01/24 05:57 12/01/24 02:58 High Flow Nasal Cannula Laboratory Results 12/01/24 05:26 12/01/24 05:26
[2024-12-02 06:39] LABS: Hematocrit (blood only) 34.4 % (42.0-52.0); Hemoglobin 11.7 g/dl (14.0-18.0); Mean Corpuscular Hemoglobin 29.3 pg (25.0-34.0); Mean Corpuscular Volume 86.2 fL (80.0-100.0); Mean Platelet Volume 11.2 fL (9.4-12.4); Nucleated RBC # (auto) 0.03 K/uL (0.00-0.12); Nucleated RBC % (auto) 0.2 %; Platelet Count 311 K/uL (130-400); RDW Coefficient of Variation 15.8 % (11.5-14.5); RDW Standard Deviation 49.2 fL (36.4-46.3); Red Blood Count 3.99 M/uL (4.70-6.10); White Blood Count 18.68 K/ul (4.8-10.8)
[2024-12-02 07:03] LABS: INR 3.4 (0.9-1.1); Prothrombin Time 33.5 Seconds (9.0-12.0)
[2024-12-02 07:37] LABS: BUN Creatinine Ratio 10.8 (10-20); Calcium 8.4 mg/dl (8.6-10.3); Creatinine Clr Calc Pharmacy 10.4 ml/min; Potassium 3.2 mmol/L (3.5-5.1)
--- NOTE | 2024-12-02 09:07 | Nephrology Progress Note ---
Date of Service December 02, 2024 Assessment & Plan (1) Peritoneal dialysis status: Plan: continue routine PD this evening w/ RX geared to maintenance and not excessive UF > one 1.5% bag and 2 x 2.5% bags. Had 815 mls UF 2/8 PM with all 2.5%. Had 997 mL UF on 2/10 PM w/ 10/21 red/10/21 green. Had 2L UF on 11/30 w/ red, 2 green. had 1.4L UF on 12/01 w/ red, 2 green. overall 4.7 L neg on admission Off bipap Now on NC but still w/ high needs w/ activity. Breathing better but still tenuous though 02 needs down a slight bit >continue RX still on lower 2.5L fill >continue midodrine > will give extra dose with lower BP ARDS being treated by primary team. Appreciate/agree w/ appropriate K supplementation; continue v8 as well daily bmp >>make sure if at all possible that PT/OT are afternoon >>gave po K 40 mE x 1 ->>>>vascular to see pt so that if needed he could get TDC possibly Friday; primary service to d/w vascular today; I d/w them yesterday >>>INR must be <2 for pt to get TDC >>>THERE are no rehab facilities that do PD except one in [place] that does not have a mature PD program; favor temporary HD at [facility] (less intensive rehab for pt who is still 3-4 person asst and very tired pt w/ gettingOOB) w/ on site HD and then transition back to PD; did d/w [facility] medical team > not surprisingly not an option for family to do PD at LTAC, [facility]. -called son Guido to discuss > 12 minute call w/ him on above today Encouraged pt to do PT as able >> extremely weak; 3 person assist to transfer. Care d/w Dr Tong by phone re dialysis modality, rehab options/orientation, 02 and INR needs by phone; we are in agreement. also d/w family and pt. (2) Accident due to mechanical fall without injury: Plan: follow up with primary service and when appropriate PT Admission and Anticipated Discharge Date Admission Date: November 19, 2024 Subjective 1374 mL UF ON; SBP in 90s at times; still sob but less so; tired this am. moving bowels daily 3 BM today Review of Systems 2 Review of Systems: All systems reviewed & are unremarkable except as noted in Subjective Physical Exam 2 Constitutional: well developed, well nourished, + frail appearing and cooperative; no acute distress and no altered mental status Eyes: EOM intact bilaterally ENMT: Mouth: + dry oral mucous membranes (very) Respiratory: normal respiratory effort, able to speak in complete sentences and + tachypneic; no labored breathing and no cough Auscultation: + diminished lung sounds (extremely), + crackles, + rhonchi, + wheezes and + bronchovesicular breath sounds Cardiovascular: Rate/Rhythm: regular rate and regular rhythm Heart Sounds: + murmur Extremities: no edema Gastrointestinal (Abdomen): Inspection/Auscultation: normal bowel sounds and + abdominal surgical drain present (PD catheter) Percussion/Palpation: abdomen soft; abdomen nontender Musculoskeletal: Extremities: strength 5/5 throughout Skin: no rashes, warm and dry Results & Data Vital Signs (Past 12 Hours) Vital Signs Temp Pulse Pulse Resp BP Pulse Ox O2 Del Method 12/02/24 08:10 36.4 C L 76 26 H 12/02/24 07:09 78 22 90 Nasal Cannula 12/02/24 02:46 36.6 C 81 20 92/53 L 93 High Flow Nasal Cannula 12/01/24 23:04 36.8 C 83 20 105/74 90 High Flow Nasal Cannula O2 Flow Rate 12/02/24 08:10 12/02/24 07:09 5 12/02/24 02:46 12/01/24 23:04 Laboratory Results 12/02/24 05:47 12/02/24 05:47
--- NOTE | 2024-12-02 10:38 | Hospitalist Progress Note ---
Date of Service December 02, 2024 Assessment & Plan (1) Encephalopathy: Plan 79-year-old male with PMH of PE/A-fib on Coumadin, hypertrophic CM, CAD, PVD, hypotension on midodrine, COPD/RLD, ESRD on PD, esophageal achalasia, cirrhosis, prostate cancer status post surgery, MGUS, chronic anemia [baseline hemoglobin of 10-11], cognitive impairment, inclusion body myositis, past tobacco abuse who was recently admitted for COVID - 19 pneumonia/sp decdron Rx for 3-4 days/discharged to [facility] on room air presents w/ c/o increasing weakness, fall (no head trauma, witnessed fall). Severe sepsis-POA Bilateral pneumonia Acute metabolic encephalopathy: likely 2/2 acute illness iso underlying cognitive impairment. Acute hypoxic respiratory failure COVID-19 infection ARDS --CT chest with interval early bilateral pneumonia Compared to CT chest on 11/12 --ECHO: Mild concentric LVH. Asymmetric left ventricular hypertrophy involving the septum with maximal thickness of 2.1 cm. Outflow tract obstruction not identified. Cavity obliteration at mid ventricle. Left ventricle is hy perdynamic. EF > 70%. Aortic valve sclerosis mild, without significant aortic valve stenosis. --Peritoneal fluid analysis-no organism and wbc --Serology positive for COVID-19 --Blood cultures- negative to date Appreciate pulmonology input Completed zosyn/doxycycline course CRP trending down Currently on dexamethasone to complete 10 day treatement Continue to wean oxygen as tolerated PT recommends SNF placement Diarrhea Likely due to antibiotics Stool for C. difficile negative Monitor volume status Diarrhea improving Imodium as needed Hypotension Continue midodrine Suspected dysphagia Aspiration precaution Speech eval and recs noted Troponin elevation: secondary to illness in the setting of chronic kidney dysfunction, history ESRD on PD Pt denies chest pain. ESRD on PD: Continue dialysis as per nephrology Discussed with Nephrology. Planned for HD catheter placement Discussed with An RAMIREZ. They will want INR <2 INR is 3.4 today Vit K po x 1 ordered for reversal Hyperglycemia secondary to diabetes HbA1c 6.7 Continue insulin while hospitalized Monitor BGs H/O PE/A-fib (early TBS) On Coumadin--initially held due to supratherapeutic INR. INR is supratherapeutic today at 3.4. Vit K reversal ordered for procedure as above Warfarin held. Monitor Continue metoprolol, amiodarone. Other chronic medical conditions: Continue withe home meds Hypertrophic cardiomyopathy CAD/ PVD COPD/RLD as per records Cirrhosis on imaging from past admission Prostate cancer S/P surgery Chronic anemia, Hb stable Cognitive impairment, patient mentating well Inclusion body myositis as per records, patient to decide on steroid Rx recommendation from local neurologist following recent outpatient visit Subclinical hypothyroidism , needs repeat thyroid function test in 6 weeks as outpatient Past tobacco abuse. CODE STATUS Full code Call to son to update him was unanswered. Will call again later I spent a total of 50 minutes coordinating, documenting and providing care for this patient excluding time spent in performance of separately billed services Admission and Anticipated Discharge Date Admission Date: November 19, 2024 Subjective Patient seen and examined Reports mild cough and weakness No other complaints Currently on 5L NC Physical Exam Constitutional: + well hydrated; no acute distress Eyes: PERRL, conjunctivae normal, anicteric sclerae ENMT: external ear and nose normal, oropharynx normal Respiratory: On nasal cannula, diminished breath sounds Cardiovascular: Rate/Rhythm: regular rate and regular rhythm Gastrointestinal (Abdomen): normal bowel sounds, soft, nontender, no hepatosplenomegaly PD catheter in situ Musculoskeletal: No pedal edema Neurologic: PERRL, EOMI, accommodation nl, no face palsy, no dysarthria Psychiatric: Alert and oriented to person, knows he is in a hospital but not which, not oriented to time. Cooperative Results & Data Results & Data Vital Signs (Past 12 Hours) Vital Signs Temp Pulse Pulse Pulse Resp BP Pulse Ox 12/02/24 08:10 36.4 C L 76 26 H 12/02/24 07:09 78 22 90 12/02/24 07:00 79 12/02/24 02:46 36.6 C 81 20 92/53 L 93 12/01/24 23:04 36.8 C 83 20 105/74 90 O2 Del Method O2 Flow Rate 12/02/24 08:10 12/02/24 07:09 Nasal Cannula 5 12/02/24 07:00 12/02/24 02:46 High Flow Nasal Cannula 12/01/24 23:04 High Flow Nasal Cannula Laboratory Results Abnormal lab results 12/01/24 12/01/24 12/01/24 Range/Units 11:28 15:59 20:08 WBC (4.8-10.8) K/ul RBC (4.70-6.10) M/uL Hgb (14.0-18.0) g/dl Hct (42.0-52.0) % RDW Std Deviation (36.4-46.3) fL RDW Coeff of Maureen (11.5-14.5) % PT (9.0-12.0) Seconds INR (0.9-1.1) Potassium (3.5-5.1) mmol/L Chloride (98-107) mmol/L Anion Gap (3-11) BUN (6-23) mg/dl Creatinine (0.6-1.4) mg/dl Glucose (70-99(Fasting)) mg/dl POC Glucose 119 H 126 H 287 H (70-99) mg/dl Calcium (8.6-10.3) mg/dl 12/02/24 12/02/24 Range/Units 05:47 07:10 WBC 18.68 H (4.8-10.8) K/ul RBC 3.99 L (4.70-6.10) M/uL Hgb 11.7 L (14.0-18.0) g/dl Hct 34.4 L (42.0-52.0) % RDW Std Deviation 49.2 H (36.4-46.3) fL RDW Coeff of Maureen 15.8 H (11.5-14.5) % PT 33.5 H (9.0-12.0) Seconds INR 3.4 H (0.9-1.1) Potassium 3.2 L (3.5-5.1) mmol/L Chloride 97 L (98-107) mmol/L Anion Gap 14 H (3-11) BUN 68 H (6-23) mg/dl Creatinine 6.27 H* (0.6-1.4) mg/dl Glucose 245 H (70-99(Fasting)) mg/dl POC Glucose 263 H (70-99) mg/dl Calcium 8.4 L (8.6-10.3) mg/dl
--- NOTE | 2024-12-02 11:38 | Pharmacy Report ---
Pharmacy Glycemic Short Note 2 - Date of Service December 02, 2024 - Glycemic Short BSG Results (Last 24 hours): 12/01/24 12/01/24 12/01/24 11:28 15:59 20:08 Glucose POC Glucose 119 H 126 H 287 H 12/02/24 12/02/24 12/02/24 05:47 07:10 11:06 Glucose 245 H POC Glucose 263 H 127 H OUTPATIENT ANTIDIABETIC REGIMEN: * 6.4% 11/13/24 * N/A ASSESSMENT: 12/02: * BSGs [phone]/dL the last 24h. Received 28 units of basal and 15 units of bolus insulin yesterday. * Some PO intake documented yesterday. Day #10 dexamethasone today- will discontinue. Plan for overnight PD. * No changes to insulin today. Continue Lantus 8 units daily + NPH 20 units at dinner. Novolog 08/05 ACHS. 11/29: * BSGs largely within goal the last 24h: [phone]/dl. Received 23 units of basal insulin and 21 units of bolus insulin yesterday. * Continues on IV dexamethasone 6mg daily, zosyn and overnight PD. Minimal documented PO intake today. * Continue Lantus 8 units daily to provide coverage of steroids. NPH 15 units at dinner for PD coverage. No change to Novolog parameters - will stop overnight checks given evening NPH. 11/28: * Monster received 33 units of insulin yesterday (8 Lantus, 10 insulin NPH) * IV dexamethasone 6mg continues, will give a small dose (~0.1 units/kg) of long-acting basal insulin to help cover steroid induced hyperglycemia * Insulin NPH re-initiated yesterday evening around when peritoneal dialysis begins, NPH vs Lantus since duration of action would better cover dialysate induced hyperglycemia. Dose increased from yesterday as BSGs overnight still elevated. * No changes to NovoLog since titrating NPH today. He is finishing up his course of ABX for pneumonia. 11/26: * BSGs [phone]/dl the last 24h. Received 13units of bolus insulin yesterday. * Continues on dexamethasone 6mg IV daily, zosyn, and PD overnight. PD dextrose concentration for tonight unclear. * NPH was held yesterday evening per provider d/t decreased PO. Continues w/ decreased PO intake today. Will switch to Lantus 8 units X 1 dose today with lunch to provide basal coverage given decreased PO. No change to Novolog for today. 11/25 * Dexamethasone 6 mg IV continues * BSG wnl at lunch yesterday, but hyperglycemia noted in the evening and overnight, likely 2nd PD bags (6 bags of 4.25% dextrose). BSG back down to goal this AM. * Dialysate changing this evening per nephrology note - plans 6 bags of 2.5% dextrose, which is almost half of the dextrose as compared to yesterday. Will continue NPH given at 1700, but will reduce slightly 2nd significant dextrose reduction in dialysate * Correction factor seems to be working after dextrose load in PD finishes, based on BSG's in goal range x2 the last 2 days after PD. Will therefore leave correction factor as-is. 11/24 * Patient with significant hyperglycemia overnight- possibly d/t increase in dextrose content in PD bags and steroids * Patient was given 20 units of lantus and started on weight based stress of 3 novolog. Trended down overnight. * Patient currently has diet ordered but minimal intake. Dexamethasone 6 mg daily ordered. * Will trial NPH with dinner to help cover PD bags rather than long acting basal * Continue weight based of 3 novolog for now with overnight checks. Caution with IV regular bolus insulin d/t hypokalemia PLAN FOR INPATIENT GLYCEMIC CONTROL: * Basal insulin * Lantus 8 units SQ daily with IV dexamethasone * Insulin NPH 20 units SQ daily @1700 approximately when PD begins * Bolus insulin * NovoLog per scale ACHS or Q6hrs while NPO * Goal Range: Low 110 mg/dL - High 140 mg/dL * Correction Factor: 20 mg/dL/unit * Nutritional / Prandial insulin per carb ratio of 1 unit per 7 grams CHO consumed
[2024-12-02] MEDS: PHYTONADIONE 5 MG TAB PO STA (13:52)
[2024-12-02] MEDS: MIDODRINE HCL 2.5 MG TAB PO ONE (13:52)
[2024-12-02] MEDS: POTASSIUM CHLORIDE CRTAB 20 MEQ TABCR PO ONE (13:52)
[2024-12-02] MEDS: CARBOHYDRATES FOR HYPOGLYCEMIA PO PRN (14:00)
[2024-12-02 14:41] LABS: Hep B Surface Ag with confirm Negative (Negative)
[2024-12-02 14:50] LABS: Hepatitis B Surface Ab Quant 3.79 mIU/mL (>or=10mIU/mL Immune); Hepatitis B Surface Antibody Non-Immune
--- NOTE | 2024-12-02 14:55 | Consultation ---
Date of Consultation December 02, 2024 Assessment & Plan (1) CKD (chronic kidney disease): Patient is to have a permcath placed for hemodialysis while at a custodial facility. This will be placed tomorrow if the inr is less than 2.0. I have discussed the risks options and benefits of the procedure with the patient. The patient understands the risks options and benefits and agrees to the procedure. Thank you very much for letting us participate in the care of this patient. History of Present Illness Reason for Consultation: End-stage renal disease Attending Physician: Ashleigh Tong MD History of Present Illness This is a 79-year-old gentleman who has a peritoneal dialysis catheter in place. At this point he needs to go to skilled facility that does not do PD. He will need a permcath for dialysis while he is there. Allergies Allergy/AdvReac Type Severity Reaction Status Date / Time No Known Allergies Allergy Verified 11/12/24 22:14 Home Medications Medication Instructions Recorded Confirmed Type amiodarone 200 mg tablet 200 mg PO DAILY 10/16/24 11/19/24 History metoprolol succinate 25 mg 25 mg PO DAILY 10/16/24 11/19/24 History tablet,extended release 24 hr midodrine 2.5 mg tablet 2.5 mg PO AMPM 10/16/24 11/19/24 History warfarin 2 mg tablet 2 mg PO DAILY 10/19/24 11/19/24 History docusate sodium 100 mg capsule 100 mg PO BID #60 caps 10/21/24 11/19/24 Rx polyethylene glycol 3350 17 gram 17 g PO DAILY PRN constipation #30 10/21/24 11/19/24 Rx oral powder packet (Miralax) ea Lactobacillus acidophilus 1 tab PO DAILY 11/12/24 11/19/24 History Renal Multivit W/1mg Or <Fa 1 tab PO DAILY 11/12/24 11/19/24 History acetaminophen 500 mg tablet 500 mg PO Q6H 11/12/24 11/19/24 History cholecalciferol (vitamin D3) 50 50 mcg PO DAILY 11/12/24 11/19/24 History mcg (2,000 unit) capsule (Vitamin D3) gentamicin 0.1 % topical cream 1 applic topical DAILY 11/12/24 11/19/24 History lanolin alcohols-mineral 1 applic topical UD PRN SKIN CARE 11/12/24 11/19/24 History oil-w.petrolatum-ceresin topical cream (Eucerin topical cream) maltodextrin 1 ea PO QAM PRN Constipation 11/12/24 11/19/24 History menthol 0.44 %-zinc oxide 20.6 % 1 applic topical DAILY 11/12/24 11/19/24 History topical ointment (Calmoseptine) metoprolol tartrate 25 mg tablet 25 mg PO DAILY PRN HR > 100 @ REST 11/12/24 11/19/24 History pantoprazole 40 mg tablet,delayed 40 mg PO DAILY 11/12/24 11/19/24 History release doxycycline hyclate 100 mg capsule 100 mg PO BID 6 days #12 caps 11/15/24 11/19/24 Rx Patient History Medical History CAP (community acquired pneumonia) Hypotension ESRD on peritoneal dialysis Renal cyst 3.9 cm cystic lesion-L Paroxysmal A-fib listed in [facility] records CAD (coronary artery disease) PVD (peripheral vascular disease) Dysphagia Anemia Pulmonary nodule MGUS (monoclonal gammopathy of unknown significance) follows with [facility] heme/onc LBBB (left bundle branch block) Hearing deficit Surgical History History of appendectomy History of tooth extraction all teeth removed History of bilateral cataract extraction History of prostatectomy Family History Father Diabetes Other No family history of adverse response to anesthesia Social History Smoking Status: Former smoker Tobacco Type: Cigarettes Second Hand Exposure: No; Do You Dip or Chew Tobacco: No; Hx Alcohol Use: No Hx Substance Use: No Preferred Language: Uzbek Communication Ability: Effective Installment Account Checker Required: No Beliefs That Will Affect Care: None Current Living Situation: Senior Care Current Living Situation Comment: lives at facility Feels Safe at Home: Yes Assistive Devices: Walker Review of Systems Review of Systems: All systems reviewed & are unremarkable except as noted in HPI & below Physical Exam Constitutional: WD/WN, vitals as above Respiratory: normal respiratory effort, lungs clear to auscultation Cardiovascular: RRR, no murmur, no edema Gastrointestinal (Abdomen): normal bowel sounds, soft, nontender, no hepatosplenomegaly Psychiatric: A+Ox3, euthymic affect Results & Data Vital Signs (Past 12 Hours) Vital Signs Temp Pulse Pulse Pulse Resp BP Pulse Ox 12/02/24 14:17 12/02/24 11:03 78 27 H 98/55 L 93 12/02/24 08:10 36.4 C L 76 26 H 12/02/24 07:09 78 22 90 12/02/24 07:00 79 O2 Del Method O2 Flow Rate 12/02/24 14:17 5 12/02/24 11:03 Nasal Cannula 12/02/24 08:10 12/02/24 07:09 Nasal Cannula 5 12/02/24 07:00
[2024-12-02] MEDS: INSULIN HUMAN NPH SC SCH (17:42)
--- NOTE | 2024-12-03 07:39 | History & Physical Bridge Note ---
Date of Service December 03, 2024 History & Physical Bridge Note Patient for an insertion of a permcath today. I have discussed the risks options and benefits of the procedure with the patient. The patient understands the risks options and benefits and agrees to the procedure. I have examined the patient, reviewed the History & Physical and in the interval since the performance of the History & Physical I have noted the following changes of clinical significance: no changes noted
[2024-12-03 07:44] LABS: Hematocrit (blood only) 35.3 % (42.0-52.0); Hemoglobin 12.4 g/dl (14.0-18.0); Mean Corpuscular Hemoglobin 30.3 pg (25.0-34.0); Mean Corpuscular Hgb Conc 35.1 g/dL (32.0-36.0); Mean Corpuscular Volume 86.3 fL (80.0-100.0); Nucleated RBC # (auto) 0.06 K/uL (0.00-0.12); Nucleated RBC % (auto) 0.4 %; Platelet Count 315 K/uL (130-400); RDW Coefficient of Variation 15.9 % (11.5-14.5); RDW Standard Deviation 49.8 fL (36.4-46.3); Red Blood Count 4.09 M/uL (4.70-6.10); White Blood Count 16.36 K/ul (4.8-10.8)
[2024-12-03 08:09] LABS: INR 2.3 (0.9-1.1); Prothrombin Time 23.2 Seconds (9.0-12.0)
[2024-12-03 08:16] LABS: Calcium 8.4 mg/dl (8.6-10.3); Potassium 3.4 mmol/L (3.5-5.1)
[2024-12-03 08:31] LABS: BUN Creatinine Ratio 9.4 (10-20); Creatinine Clr Calc Pharmacy 10.4 ml/min
--- NOTE | 2024-12-03 09:08 | Communication Note ---
Date of Service: December 03, 2024 INR 2.3 today. Will hold off permcath insertion till INR <2.0
--- NOTE | 2024-12-03 10:35 | Hospitalist Progress Note ---
Date of Service December 03, 2024 Assessment & Plan (1) Encephalopathy: Plan 79-year-old male with PMH of PE/A-fib on Coumadin, hypertrophic CM, CAD, PVD, hypotension on midodrine, COPD/RLD, ESRD on PD, esophageal achalasia, cirrhosis, prostate cancer status post surgery, MGUS, chronic anemia [baseline hemoglobin of 10-11], cognitive impairment, inclusion body myositis, past tobacco abuse who was recently admitted for COVID - 19 pneumonia/sp decdron Rx for 3-4 days/discharged to [facility] on room air presents w/ c/o increasing weakness, fall (no head trauma, witnessed fall). Severe sepsis-POA Bilateral pneumonia Acute metabolic encephalopathy: likely 2/2 acute illness iso underlying cognitive impairment. Acute hypoxic respiratory failure COVID-19 infection ARDS --CT chest with interval early bilateral pneumonia Compared to CT chest on 11/12 --ECHO: Mild concentric LVH. Asymmetric left ventricular hypertrophy involving the septum with maximal thickness of 2.1 cm. Outflow tract obstruction not identified. Cavity obliteration at mid ventricle. Left ventricle is hy perdynamic. EF > 70%. Aortic valve sclerosis mild, without significant aortic valve stenosis. --Peritoneal fluid analysis-no organism and wbc --Serology positive for COVID-19 --Blood cultures- negative to date Appreciate pulmonology input Completed zosyn/doxycycline course CRP trended down Completed dexamethasone 10 day treatement Continue to wean oxygen as tolerated PT recommends SNF placement Diarrhea Likely due to antibiotics Stool for C. difficile negative Imodium as needed Hypotension Continue midodrine Suspected dysphagia Aspiration precaution Speech eval and recs noted Troponin elevation: secondary to illness in the setting of chronic kidney dysfunction, history ESRD on PD Pt denies chest pain. ESRD on PD: Continue dialysis as per nephrology HD catheter placement planned for today canceled due to INR >2 Got Vit K yesterday. INR is 2.3 today Continue to monitor Hyperglycemia secondary to diabetes HbA1c 6.7 Continue insulin while hospitalized Monitor BGs H/O PE/A-fib (early TBS) On Coumadin--initially held due to supratherapeutic INR. INR is 2.3 today. Warfarin on hold for procedure above. May do hep gtt once below 2 while awaiting procedure to be rescheduled Continue metoprolol, amiodarone. Other chronic medical conditions: Continue withe home meds Hypertrophic cardiomyopathy CAD/ PVD COPD/RLD as per records Cirrhosis on imaging from past admission Prostate cancer S/P surgery Chronic anemia, Hb stable Cognitive impairment, patient mentating well Inclusion body myositis as per records, patient to decide on steroid Rx recommendation from local neurologist following recent outpatient visit Subclinical hypothyroidism , needs repeat thyroid function test in 6 weeks as outpatient Past tobacco abuse. CODE STATUS Full code I spent a total of 50 minutes coordinating, documenting and providing care for this patient excluding time spent in performance of separately billed services Admission and Anticipated Discharge Date Admission Date: November 19, 2024 Subjective Patient seen and examined Reports weakness HD catheter placement planned this AM was canceled due to INR at 2.3 Physical Exam Constitutional: + well hydrated; no acute distress Eyes: PERRL, conjunctivae normal, anicteric sclerae ENMT: external ear and nose normal, oropharynx normal Respiratory: On nasal cannula, diminished breath sounds Cardiovascular: Rate/Rhythm: regular rate and regular rhythm Gastrointestinal (Abdomen): normal bowel sounds, soft, nontender, no hepatosplenomegaly PD catheter in situ Neurologic: PERRL, EOMI, accommodation nl, no face palsy, no dysarthria Psychiatric: Alert and oriented to person Results & Data Results & Data Vital Signs (Past 12 Hours) Vital Signs Temp Pulse Pulse Pulse Pulse Resp BP 12/03/24 08:08 36.9 C 86 24 97/57 L 12/03/24 07:28 82 24 12/03/24 07:00 79 12/03/24 07:00 12/03/24 02:50 36.4 C L 72 24 103/58 L 12/02/24 22:30 36.5 C 72 30 H 96/58 L Pulse Ox O2 Del Method O2 Flow Rate 12/03/24 08:08 91 High Flow Nasal Cannula 5 12/03/24 07:28 92 Nasal Cannula 5 12/03/24 07:00 12/03/24 07:00 Nasal Cannula 5 12/03/24 02:50 93 High Flow Nasal Cannula 5 12/02/24 22:30 94 High Flow Nasal Cannula 5 Laboratory Results Abnormal lab results 12/02/24 12/02/24 12/02/24 Range/Units 11:06 13:59 14:13 WBC (4.8-10.8) K/ul RBC (4.70-6.10) M/uL Hgb (14.0-18.0) g/dl Hct (42.0-52.0) % RDW Std Deviation (36.4-46.3) fL RDW Coeff of Maureen (11.5-14.5) % PT (9.0-12.0) Seconds INR (0.9-1.1) Potassium (3.5-5.1) mmol/L Chloride (98-107) mmol/L Anion Gap (3-11) BUN (6-23) mg/dl Creatinine (0.6-1.4) mg/dl BUN/Creatinine Ratio (10-20) Glucose (70-99(Fasting)) mg/dl POC Glucose 127 H 60 L* 57 L* (70-99) mg/dl Calcium (8.6-10.3) mg/dl 12/02/24 12/02/24 12/02/24 Range/Units 14:31 16:12 20:48 WBC (4.8-10.8) K/ul RBC (4.70-6.10) M/uL Hgb (14.0-18.0) g/dl Hct (42.0-52.0) % RDW Std Deviation (36.4-46.3) fL RDW Coeff of Maureen (11.5-14.5) % PT (9.0-12.0) Seconds INR (0.9-1.1) Potassium (3.5-5.1) mmol/L Chloride (98-107) mmol/L Anion Gap (3-11) BUN (6-23) mg/dl Creatinine (0.6-1.4) mg/dl BUN/Creatinine Ratio (10-20) Glucose (70-99(Fasting)) mg/dl POC Glucose 66 L* 143 H 132 H (70-99) mg/dl Calcium (8.6-10.3) mg/dl 12/03/24 12/03/24 12/03/24 Range/Units 00:01 03:49 05:50 WBC (4.8-10.8) K/ul RBC (4.70-6.10) M/uL Hgb (14.0-18.0) g/dl Hct (42.0-52.0) % RDW Std Deviation (36.4-46.3) fL RDW Coeff of Maureen (11.5-14.5) % PT (9.0-12.0) Seconds INR (0.9-1.1) Potassium (3.5-5.1) mmol/L Chloride (98-107) mmol/L Anion Gap (3-11) BUN (6-23) mg/dl Creatinine (0.6-1.4) mg/dl BUN/Creatinine Ratio (10-20) Glucose (70-99(Fasting)) mg/dl POC Glucose 130 H 102 H 114 H (70-99) mg/dl Calcium (8.6-10.3) mg/dl 12/03/24 Range/Units 07:20 WBC 16.36 H (4.8-10.8) K/ul RBC 4.09 L (4.70-6.10) M/uL Hgb 12.4 L (14.0-18.0) g/dl Hct 35.3 L (42.0-52.0) % RDW Std Deviation 49.8 H (36.4-46.3) fL RDW Coeff of Maureen 15.9 H (11.5-14.5) % PT 23.2 H (9.0-12.0) Seconds INR 2.3 H (0.9-1.1) Potassium 3.4 L (3.5-5.1) mmol/L Chloride 95 L (98-107) mmol/L Anion Gap 15 H (3-11) BUN 59 H (6-23) mg/dl Creatinine 6.27 H* (0.6-1.4) mg/dl BUN/Creatinine Ratio 9.4 L (10-20) Glucose 101 H (70-99(Fasting)) mg/dl POC Glucose (70-99) mg/dl Calcium 8.4 L (8.6-10.3) mg/dl
--- NOTE | 2024-12-03 12:31 | Pharmacy Report ---
Pharmacy Glycemic Short Note 2 - Date of Service December 03, 2024 - Glycemic Short BSG Results (Last 24 hours): 12/02/24 12/02/24 12/02/24 13:59 14:13 14:31 Glucose POC Glucose 60 L* 57 L* 66 L* 12/02/24 12/02/24 12/02/24 14:49 16:12 20:48 Glucose POC Glucose 85 143 H 132 H 12/03/24 12/03/24 12/03/24 00:01 03:49 05:50 Glucose POC Glucose 130 H 102 H 114 H 12/03/24 12/03/24 07:20 11:13 Glucose 101 H POC Glucose 84 OUTPATIENT ANTIDIABETIC REGIMEN: * 6.4% 11/13/24 * N/A ASSESSMENT: 12/03: * BSGs [phone]/dl the last 24h. Pt did have a low BSG yesterday afternoon, 60mg/dl that required treatment. Received 23 units of basal and 9 units of bolus insulin yesterday. * NPO since midnight last night for HD permacath placement which was unable to be performed due to INR-diet resumed at lunch (although no PO intake documented for ~ 24h). Dexamethasone discontinued. * Will hold basal insulin today given overall downward trend in BSGs and now without steroids on board and decreased PO. Unclear plan for dialysis moving forward (no PD orders placed as of yet, re-attempt at HD cath). Therefore, will plan for overnight checks tonight with Novolog to provide some PD correctional coverage if ordered. Novolog also loosened given discontinuation of steroids. 12/02: * BSGs [phone]/dL the last 24h. Received 28 units of basal and 15 units of bolus insulin yesterday. * Some PO intake documented yesterday. Day #10 dexamethasone today- will discontinue. Plan for overnight PD. * No changes to insulin today. Continue Lantus 8 units daily + NPH 20 units at dinner. Novolog 08/05 ACHS. 11/29: * BSGs largely within goal the last 24h: [phone]/dl. Received 23 units of basal insulin and 21 units of bolus insulin yesterday. * Continues on IV dexamethasone 6mg daily, zosyn and overnight PD. Minimal documented PO intake today. * Continue Lantus 8 units daily to provide coverage of steroids. NPH 15 units at dinner for PD coverage. No change to Novolog parameters - will stop overnight checks given evening NPH. 11/28: * Monster received 33 units of insulin yesterday (8 Lantus, 10 insulin NPH) * IV dexamethasone 6mg continues, will give a small dose (~0.1 units/kg) of long-acting basal insulin to help cover steroid induced hyperglycemia * Insulin NPH re-initiated yesterday evening around when peritoneal dialysis begins, NPH vs Lantus since duration of action would better cover dialysate induced hyperglycemia. Dose increased from yesterday as BSGs overnight still elevated. * No changes to NovoLog since titrating NPH today. He is finishing up his course of ABX for pneumonia. 11/26: * BSGs [phone]/dl the last 24h. Received 13units of bolus insulin yesterday. * Continues on dexamethasone 6mg IV daily, zosyn, and PD overnight. PD dextrose concentration for tonight unclear. * NPH was held yesterday evening per provider d/t decreased PO. Continues w/ decreased PO intake today. Will switch to Lantus 8 units X 1 dose today with lunch to provide basal coverage given decreased PO. No change to Novolog for today. 11/25 * Dexamethasone 6 mg IV continues * BSG wnl at lunch yesterday, but hyperglycemia noted in the evening and overnight, likely 2nd PD bags (6 bags of 4.25% dextrose). BSG back down to goal this AM. * Dialysate changing this evening per nephrology note - plans 6 bags of 2.5% dextrose, which is almost half of the dextrose as compared to yesterday. Will continue NPH given at 1700, but will reduce slightly 2nd significant dextrose reduction in dialysate * Correction factor seems to be working after dextrose load in PD finishes, based on BSG's in goal range x2 the last 2 days after PD. Will therefore leave correction factor as-is. 11/24 * Patient with significant hyperglycemia overnight- possibly d/t increase in dextrose content in PD bags and steroids * Patient was given 20 units of lantus and started on weight based stress of 3 novolog. Trended down overnight. * Patient currently has diet ordered but minimal intake. Dexamethasone 6 mg daily ordered. * Will trial NPH with dinner to help cover PD bags rather than long acting basal * Continue weight based of 3 novolog for now with overnight checks. Caution with IV regular bolus insulin d/t hypokalemia PLAN FOR INPATIENT GLYCEMIC CONTROL: * Basal insulin * Hold * Bolus insulin * NovoLog per scale ACHS or Q6hrs while NPO * Goal Range: Low 110 mg/dL - High 140 mg/dL * Correction Factor: 30 mg/dL/unit * Nutritional / Prandial insulin per carb ratio of 1 unit per 10 grams CHO consumed
--- NOTE | 2024-12-03 17:11 | Dialysis Progress Note ---
Date of Service December 03, 2024 Assessment & Plan (1) Peritoneal dialysis status: Plan: continue routine PD this evening w/ RX geared to maintenance and not excessive UF > one 1.5% bag and 2 x 2.5% bags. Had 815 mls UF 2/8 PM with all 2.5%. Had 997 mL UF on 210 PM w/ 10/21 red/10/21 green. Had 2L UF on 11/30 w/ 4 red, 2 green. had 1.4L UF on 12/01 w/ 4 red, 2 green. 12/02 treatment cut short as he was taken for OR and not drained; net even on 12/02. overall 4.6 L neg on admission Off bipap Now on NC but still w/ high needs w/ activity. Breathing better but still tenuous though 02 needs down a slight bit >continue RX still on lower 2.5L fill >continue midodrine > will give extra dose with lower BP ARDS being treated by primary team. Appreciate/agree w/ appropriate K supplementation; continue v8 as well daily bmp >>make sure if at all possible that PT/OT are afternoon >>again gave po K 40 mE x 1 ->>for TDC 12/06 then ICHD at [facility] >>>INR must be <2 for pt to get TDC >>>THERE are no rehab facilities that do PD except one in [place] that does not have a mature PD program; not an option for family to do PD at [facility] or other facilities >>>plan if able from insurance [facility] temporary HD at [facility] (less intensive rehab for pt who is still 3-4 person asst and very tired pt w/ gettingOOB) w/ on site HD and then transition back to PD >>will need weekly dressing changes and flushes of PD catheter TO BE DONE BY PD nurse only at d/c Encouraged pt to do PT as able >> extremely weak; 3 person assist to transfer. Care d/w Dr Tong by phone re revised TDC placement plan, rehab options/orientation, 02 and INR needs by phone; we are in agreement. (2) Accident due to mechanical fall without injury: Plan: follow up with primary service and when appropriate PT Admission and Anticipated Discharge Date Admission Date: November 19, 2024 Subjective seen on late afternoon rounds; pt on PD. feels a bit better > less sob, a bit more energy. still somediarrhea. TDC delayed today as INR 2.3 Review of Systems 2 Review of Systems: All systems reviewed & are unremarkable except as noted in Subjective Physical Exam 2 Constitutional: well developed, well nourished, + frail appearing and cooperative; no acute distress and no altered mental status Eyes: EOM intact bilaterally ENMT: Mouth: + dry oral mucous membranes Respiratory: normal respiratory effort, able to speak in complete sentences and + tachypneic; no labored breathing and no cough Auscultation: + diminished lung sounds (extremely), + crackles and + rhonchi Cardiovascular: Rate/Rhythm: regular rate and regular rhythm Heart Sounds: + murmur Extremities: no edema Gastrointestinal (Abdomen): Inspection/Auscultation: normal bowel sounds and + abdominal surgical drain present (PD catheter) Percussion/Palpation: abdomen soft; abdomen nontender Musculoskeletal: Extremities: strength 5/5 throughout Skin: no rashes, warm and dry Results & Data Vital Signs (Past 12 Hours) Vital Signs Temp Pulse Pulse Pulse Pulse Resp BP 12/03/24 16:15 36.3 C L 82 27 H 12/03/24 15:45 36.3 C L 82 27 H 12/03/24 12:08 36.3 C L 84 20 12/03/24 08:08 36.9 C 86 24 97/57 L 12/03/24 07:50 36.8 C 83 28 H 12/03/24 07:28 82 24 12/03/24 07:00 79 12/03/24 07:00 BP Pulse Ox O2 Del Method O2 Flow Rate 12/03/24 16:15 103/65 12/03/24 15:45 103/65 95 Nasal Cannula 12/03/24 12:08 100/64 91 Nasal Cannula 12/03/24 08:08 91 High Flow Nasal Cannula 5 12/03/24 07:50 12/03/24 07:28 92 Nasal Cannula 5 12/03/24 07:00 12/03/24 07:00 Nasal Cannula 5 Laboratory Results 12/03/24 07:20 12/03/24 07:20
[2024-12-03] MEDS: POTASSIUM CHLORIDE CRTAB 20 MEQ TABCR PO ONE (17:51)
[2024-12-04] MEDS: INSULIN ASPART PER UNIT CHARGE SC SCH (07:20)
[2024-12-04] MEDS: ceFAZolin 2000MG 2,000 MG/15 ML SYR IV ONE (07:20)
[2024-12-04 08:02] LABS: Hematocrit (blood only) 34.2 % (42.0-52.0); Hemoglobin 11.6 g/dl (14.0-18.0); Mean Corpuscular Hemoglobin 29.3 pg (25.0-34.0); Mean Corpuscular Hgb Conc 33.9 g/dL (32.0-36.0); Mean Corpuscular Volume 86.4 fL (80.0-100.0); Mean Platelet Volume 11.1 fL (9.4-12.4); Nucleated RBC # (auto) 0.03 K/uL (0.00-0.12); Nucleated RBC % (auto) 0.2 %; Platelet Count 255 K/uL (130-400); RDW Coefficient of Variation 15.9 % (11.5-14.5); RDW Standard Deviation 49.4 fL (36.4-46.3); Red Blood Count 3.96 M/uL (4.70-6.10); White Blood Count 13.13 K/ul (4.8-10.8)
[2024-12-04 08:23] LABS: BUN Creatinine Ratio 9.3 (10-20); Calcium 8.1 mg/dl (8.6-10.3); Potassium 3.4 mmol/L (3.5-5.1)
[2024-12-04 08:32] LABS: INR 1.5 (0.9-1.1); Prothrombin Time 15.7 Seconds (9.0-12.0)
[2024-12-04] MEDS: POTASSIUM CHLORIDE CRTAB 20 MEQ TABCR PO SCH (09:23)
--- NOTE | 2024-12-04 10:20 | Nephrology Progress Note ---
Date of Service December 04, 2024 Assessment & Plan (1) Peritoneal dialysis status: Plan: continue routine PD this evening w/ RX geared to maintenance and not excessive UF > one 1.5% bag and 2 x 2.5% bags. Had 815 mls UF 2/8 PM with all 2.5%. Had 997 mL UF on 10 PM w/ 10/21 red/10/21 green. Had 2L UF on 11/30 w/ 4 red, 2 green. had 1.4L UF on 12/01 w/ 4 red, 2 green. 12/02 treatment cut short as he was taken for OR and not drained; net even on 12/02. overall 4.6 L neg on admission Off bipap Now on NC but still w/ high needs w/ activity. Breathing better but still tenuous though 02 needs down a slight bit K is 3.4. -Will start kcl 40meq daily -for TDC 12/06 then I[facility]D at [facility] -INR must be <2 for pt to get TDC >>will need weekly dressing changes and flushes of PD catheter TO BE DONE BY PD nurse only at d/c (2) Accident due to mechanical fall without injury: Plan: Continue PT and then rehab Admission and Anticipated Discharge Date Admission Date: November 19, 2024 Subjective 79-year-old male with end-stage renal disease on peritoneal dialysis. no issues overnight. PD cycler without issues and net UF 438ml. He denies SOB. still on oxygen NC. Review of Systems 2 Review of Systems: All other systems were reviewed and negative except as noted in HPI Physical Exam 2 Physical Exam: General exam: Appears comfortable, no acute distress HEENT: Pupils are equal and reactive to light Neck: No JVD, neck is supple trachea is midline Respiratory system: Crackles bilaterally. Gastrointestinal: Abdomen is soft, non distended, non tender, bowel sounds are present CVS: Regular rate and rhythm. No murmurs, rubs or gallops Musculoskeletal: No joint or muscle tenderness Extremities: Non tender, no edema, peripheral pulses are present Neuro: Oriented, no tremors, no focal neurological deficits Skin: No rashes Results & Data Vital Signs (Past 12 Hours) Vital Signs Temp Pulse Pulse Pulse Pulse Resp BP 12/04/24 09:29 12/04/24 09:26 97/58 L 12/04/24 07:41 78 16 12/04/24 07:25 76 12/04/24 07:23 36.6 C 82 19 108/62 12/04/24 03:16 36.8 C 77 20 102/69 12/03/24 23:33 36.8 C 83 18 110/57 L Pulse Ox O2 Del Method O2 Flow Rate 12/04/24 09:29 Nasal Cannula 5 12/04/24 09:26 12/04/24 07:41 95 Nasal Cannula, High Flow Nasal Cannula 5 12/04/24 07:25 12/04/24 07:23 95 High Flow Nasal Cannula 5 12/04/24 03:16 90 Nasal Cannula 5 12/03/24 23:33 93 Nasal Cannula 5 Laboratory Results 12/04/24 07:28 12/04/24 07:28 WBC 13.13 H RBC 3.96 L MCV 86.4 MCH 29.3 MCHC 33.9 RDW Std Deviation 49.4 H RDW Coeff of Maureen 15.9 H Plt Count 255 MPV 11.1
--- NOTE | 2024-12-04 13:12 | Pharmacy Report ---
Pharmacy Glycemic Short Note 2 - Date of Service December 04, 2024 - Glycemic Short BSG Results (Last 24 hours): 12/03/24 12/03/24 12/04/24 15:45 20:36 01:37 Glucose POC Glucose 94 172 H 189 H 12/04/24 12/04/24 12/04/24 06:12 07:27 07:28 Glucose 154 H POC Glucose 181 H 152 H 12/04/24 11:23 Glucose POC Glucose 120 H OUTPATIENT ANTIDIABETIC REGIMEN: * 6.4% 11/13/24 * N/A ASSESSMENT: 12/04: * Patient continues on PD, blood sugars otilio overnight last night, was covered with NovoLog, will change back to a reduced dose of NPH for tonight's PD. * No further Lantus as steroids have been discontinued. * Continue NovoLog parameters. 12/03: * BSGs [phone]/dl the last 24h. Pt did have a low BSG yesterday afternoon, 60mg/dl that required treatment. Received 23 units of basal and 9 units of bolus insulin yesterday. * NPO since midnight last night for HD permacath placement which was unable to be performed due to INR-diet resumed at lunch (although no PO intake doc umented for ~ 24h). Dexamethasone discontinued. * Will hold basal insulin today given overall downward trend in BSGs and now without steroids on board and decreased PO. Unclear plan for dialysis moving forward (no PD orders placed as of yet, re-attempt at HD cath). Therefore, will plan for overnight checks tonight with Novolog to provide some PD correctional coverage if ordered. Novolog also loosened given discontinuation of steroids. 12/02: * BSGs [phone]/dL the last 24h. Received 28 units of basal and 15 units of bolus insulin yesterday. * Some PO intake documented yesterday. Day #10 dexamethasone today- will discontinue. Plan for overnight PD. * No changes to insulin today. Continue Lantus 8 units daily + NPH 20 units at dinner. Novolog 20/7 ACHS. 11/29: * BSGs largely within goal the last 24h: [phone]/dl. Received 23 units of basal insulin and 21 units of bolus insulin yesterday. * Continues on IV dexamethasone 6mg daily, zosyn and overnight PD. Minimal documented PO intake today. * Continue Lantus 8 units daily to provide coverage of steroids. NPH 15 units at dinner for PD coverage. No change to Novolog parameters - will stop overnight checks given evening NPH. 11/28: * Monster received 33 units of insulin yesterday (8 Lantus, 10 insulin NPH) * IV dexamethasone 6mg continues, will give a small dose (~0.1 units/kg) of long-acting basal insulin to help cover steroid induced hyperglycemia * Insulin NPH re-initiated yesterday evening around when peritoneal dialysis begins, NPH vs Lantus since duration of action would better cover dialysate induced hyperglycemia. Dose increased from yesterday as BSGs overnight still elevated. * No changes to NovoLog since titrating NPH today. He is finishing up his course of ABX for pneumonia. 11/26: * BSGs [phone]/dl the last 24h. Received 13units of bolus insulin yesterday. * Continues on dexamethasone 6mg IV daily, zosyn, and PD overnight. PD dextrose concentration for tonight unclear. * NPH was held yesterday evening per provider d/t decreased PO. Continues w/ decreased PO intake today. Will switch to Lantus 8 units X 1 dose today with lunch to provide basal coverage given decreased PO. No change to Novolog for today. 11/25 * Dexamethasone 6 mg IV continues * BSG wnl at lunch yesterday, but hyperglycemia noted in the evening and overnight, likely 2nd PD bags (6 bags of 4.25% dextrose). BSG back down to goal this AM. * Dialysate changing this evening per nephrology note - plans 6 bags of 2.5% dextrose, which is almost half of the dextrose as compared to yesterday. Will continue NPH given at 1700, but will reduce slightly 2nd significant dextrose reduction in dialysate * Correction factor seems to be working after dextrose load in PD finishes, based on BSG's in goal range x2 the last 2 days after PD. Will therefore leave correction factor as-is. 11/24 * Patient with significant hyperglycemia overnight- possibly d/t increase in dextrose content in PD bags and steroids * Patient was given 20 units of Lantus and started on weight based stress of 3 novolog. Trended down overnight. * Patient currently has diet ordered but minimal intake. Dexamethasone 6 mg daily ordered. * Will trial NPH with dinner to help cover PD bags rather than long acting basal * Continue weight based of 3 NovoLog for now with overnight checks. Caution with IV regular bolus insulin d/t hypokalemia PLAN FOR INPATIENT GLYCEMIC CONTROL: * Basal insulin * NPH 8 units SQ daily at 1700 with PD * Bolus insulin * NovoLog per scale ACHS or Q6hrs while NPO * Goal Range: Low 110 mg/dL - High 140 mg/dL * Correction Factor: 30 mg/dL/unit * Nutritional / Prandial insulin per carb ratio of 1 unit per 10 grams CHO consumed
--- NOTE | 2024-12-04 14:54 | Hospitalist Progress Note ---
Date of Service December 04, 2024 Assessment & Plan (1) Encephalopathy: Plan 79-year-old male with PMH of PE/A-fib on Coumadin, hypertrophic CM, CAD, PVD, hypotension on midodrine, COPD/RLD, ESRD on PD, esophageal achalasia, cirrhosis, prostate cancer status post surgery, MGUS, chronic anemia [baseline hemoglobin of 10-11], cognitive impairment, inclusion body myositis, past tobacco abuse who was recently admitted for COVID - 19 pneumonia/sp decdron Rx for 3-4 days/discharged to [facility] on room air presents w/ c/o increasing weakness, fall (no head trauma, witnessed fall). Severe sepsis-POA Bilateral pneumonia Acute metabolic encephalopathy: likely 2/2 acute illness iso underlying cognitive impairment. Acute hypoxic respiratory failure COVID-19 infection ARDS --CT chest with interval early bilateral pneumonia Compared to CT chest on 11/12 --ECHO: Mild concentric LVH. Asymmetric left ventricular hypertrophy involving the septum with maximal thickness of 2.1 cm. Outflow tract obstruction not identified. Cavity obliteration at mid ventricle. Left ventricle is hy perdynamic. EF > 70%. Aortic valve sclerosis mild, without significant aortic valve stenosis. --Peritoneal fluid analysis-no organism and wbc --Serology positive for COVID-19 --Blood cultures- negative to date Appreciate pulmonology input Completed zosyn/doxycycline course CRP trended down Completed dexamethasone 10 day treatement Continue to wean oxygen as tolerated PT recommends SNF placement Diarrhea Likely due to antibiotics Stool for C. difficile negative Imodium as needed Hypotension Continue midodrine Suspected dysphagia Aspiration precaution Speech eval and recs noted Troponin elevation: secondary to illness in the setting of chronic kidney dysfunction, history ESRD on PD ESRD on PD: Continue dialysis as per nephrology Plan for HD catheter placement on friday Hyperglycemia secondary to diabetes HbA1c 6.7 Continue insulin while hospitalized Monitor BGs H/O PE/A-fib (early TBS) On Coumadin--initially held due to supratherapeutic INR. Got Vit K on 12/02/24 INR is 1.5 today Start heparin drip for now. Plan to hold at midnight tomorrow Continue metoprolol, amiodarone. Other chronic medical conditions: Continue withe home meds Hypertrophic cardiomyopathy CAD/ PVD COPD/RLD as per records Cirrhosis on imaging from past admission Prostate cancer S/P surgery Chronic anemia, Hb stable Cognitive impairment, patient mentating well Inclusion body myositis as per records, patient to decide on steroid Rx recommendation from local neurologist following recent outpatient visit Subclinical hypothyroidism , needs repeat thyroid function test in 6 weeks as outpatient Past tobacco abuse. CODE STATUS Full code Called son Dominic and updated him I spent a total of 45 minutes coordinating, documenting and providing care for this patient excluding time spent in performance of separately billed services Admission and Anticipated Discharge Date Admission Date: November 19, 2024 Subjective Patient seen and examined No new complaints today Physical Exam Constitutional: + well hydrated; no acute distress Eyes: PERRL, conjunctivae normal, anicteric sclerae ENMT: external ear and nose normal, oropharynx normal Respiratory: On 4L NC, diminished breath sounds Cardiovascular: Rate/Rhythm: regular rate and regular rhythm Gastrointestinal (Abdomen): normal bowel sounds, soft, nontender, no hepatosplenomegaly Musculoskeletal: No pedal edema Neurologic: PERRL, EOMI, accommodation nl, no face palsy, no dysarthria Psychiatric: Alert and oriented to person Results & Data Results & Data Vital Signs (Past 12 Hours) Vital Signs Temp Pulse Pulse Pulse Resp BP Pulse Ox 12/04/24 11:21 36.7 C 91 H 101/60 94 12/04/24 09:29 12/04/24 09:26 97/58 L 12/04/24 08:33 36.8 C 85 20 12/04/24 07:41 78 16 95 12/04/24 07:25 76 12/04/24 07:23 36.6 C 82 19 108/62 95 12/04/24 03:16 36.8 C 77 20 102/69 90 O2 Del Method O2 Flow Rate 12/04/24 11:21 High Flow Nasal Cannula 4 12/04/24 09:29 Nasal Cannula 5 12/04/24 09:26 12/04/24 08:33 12/04/24 07:41 Nasal Cannula, High Flow Nasal Cannula 5 12/04/24 07:25 12/04/24 07:23 High Flow Nasal Cannula 5 12/04/24 03:16 Nasal Cannula 5
[2024-12-04 15:40] LABS: Partial Thromboplastin Ratio 1.4; Partial Thromboplastin Time 38 Seconds (21-31)
[2024-12-04] MEDS: HEPARIN 25000 UNIT/500 ML D5W 25,000 UNITS/500 ML BAG IV SCH (15:42)
[2024-12-04] MEDS: Heparin IV Adult Wt-Based Low-Dose *NO* INITIAL Bolus Protocol IV STA (16:21)
[2024-12-04] MEDS: INSULIN HUMAN NPH SC SCH (18:23)
[2024-12-04 21:16] LABS: ANTI-Xa, UFH(UnfractionatedHep 0.32 IU/ml (0.3-0.7)
[2024-12-05 07:16] LABS: Hemoglobin 11.3 g/dl (14.0-18.0); Mean Corpuscular Hemoglobin 30.7 pg (25.0-34.0); Mean Corpuscular Hgb Conc 35.3 g/dL (32.0-36.0); Mean Platelet Volume 10.9 fL (9.4-12.4); Platelet Count 236 K/uL (130-400); RDW Coefficient of Variation 16.1 % (11.5-14.5); RDW Standard Deviation 50.4 fL (36.4-46.3); Red Blood Count 3.68 M/uL (4.70-6.10); White Blood Count 14.21 K/ul (4.8-10.8)
[2024-12-05 07:21] LABS: ANTI-Xa, UFH(UnfractionatedHep 0.35 IU/ml (0.3-0.7); INR 1.4 (0.9-1.1); Prothrombin Time 15.2 Seconds (9.0-12.0)
[2024-12-05 07:35] LABS: BUN Creatinine Ratio 8.9 (10-20); Potassium 3.4 mmol/L (3.5-5.1)
--- NOTE | 2024-12-05 10:08 | Nephrology Progress Note ---
Date of Service December 05, 2024 Assessment & Plan (1) Peritoneal dialysis status: Plan: continue routine PD this evening w/ RX geared to maintenance and not excessive UF > one 1.5% bag and 2 x 2.5% bags. Had 815 mls UF 2/8 PM with all 2.5%. Had 997 mL UF on 11/29 PM w/ / red/10/21 green. Had 2L UF on 11/30 w/ 4 red, 2 green. had 1.4L UF on 12/01 w/ 4 red, 2 green. 12/02 treatment cut short as he was taken for OR and not drained; net even on 12/02. overall 4.6 L neg on admission Off bipap Now on NC but still w/ high needs w/ activity. Breathing better but still on oxygen NC due to pneumonia K is 3.4. -Will continue kcl 40meq daily. Adding kcl 20meq today -for TDC 12/06 then ICHD at [facility] -INR is 1.4 today. he is on heparin drip >>will need weekly dressing changes and flushes of PD catheter TO BE DONE BY PD nurse only at d/c (2) Accident due to mechanical fall without injury: Plan: Continue PT and then rehab Admission and Anticipated Discharge Date Admission Date: November 19, 2024 Subjective Seen for ESRD on PD. he had cycles PD last night and was net positive 300ml. Still on oxygen nasal canula. Review of Systems 2 Review of Systems: All other systems were reviewed and negative except as noted in HPI Physical Exam 2 Physical Exam: General exam: Appears comfortable, no acute distress HEENT: Pupils are equal and reactive to light Neck: No JVD, neck is supple trachea is midline Respiratory system: Crackles bilaterally. Gastrointestinal: Abdomen is soft, non distended, non tender, bowel sounds are present CVS: Regular rate and rhythm. No murmurs, rubs or gallops Musculoskeletal: No joint or muscle tenderness Extremities: Non tender, no edema, peripheral pulses are present Neuro: Oriented, no tremors, no focal neurological deficits Skin: No rashes Results & Data Vital Signs (Past 12 Hours) Vital Signs Temp Pulse Pulse Pulse Pulse Resp BP 12/05/24 08:32 36.5 C 89 32 H 12/05/24 07:54 36.5 C 87 15 104/55 L 12/05/24 07:12 02/16/25 07:11 85 12/05/24 02:57 36.6 C 89 16 96/89 L 12/04/24 23:15 36.6 C 84 16 98/57 L Pulse Ox O2 Del Method O2 Flow Rate 12/05/24 08:32 12/05/24 07:54 91 Room Air 4 12/05/24 07:12 Nasal Cannula 4 12/05/24 07:11 12/05/24 02:57 98 Room Air 12/04/24 23:15 94 Nasal Cannula 3.0 Laboratory Results 12/05/24 06:50 12/05/24 06:50 WBC 14.21 H RBC 3.68 L MCV 87.0 MCH 30.7 MCHC 35.3 RDW Std Deviation 50.4 H RDW Coeff of Maureen 16.1 H Plt Count 236 MPV 10.9
[2024-12-05] MEDS: POTASSIUM CHLORIDE CRTAB 20 MEQ TABCR PO STA (10:20)
--- NOTE | 2024-12-05 11:23 | Hospitalist Progress Note ---
Date of Service December 05, 2024 Assessment & Plan (1) Encephalopathy: Plan 79-year-old male with PMH of PE/A-fib on Coumadin, hypertrophic CM, CAD, PVD, hypotension on midodrine, COPD/RLD, ESRD on PD, esophageal achalasia, cirrhosis, prostate cancer status post surgery, MGUS, chronic anemia [baseline hemoglobin of 10-11], cognitive impairment, inclusion body myositis, past tobacco abuse who was recently admitted for COVID - 19 pneumonia/sp decdron Rx for 3-4 days/discharged to [facility] on room air presents w/ c/o increasing weakness, fall (no head trauma, witnessed fall). Severe sepsis-POA Bilateral pneumonia Acute metabolic encephalopathy: likely 2/2 acute illness iso underlying cognitive impairment. Acute hypoxic respiratory failure COVID-19 infection ARDS --CT chest with interval early bilateral pneumonia Compared to CT chest on 11/12 --ECHO: Mild concentric LVH. Asymmetric left ventricular hypertrophy involving the septum with maximal thickness of 2.1 cm. Outflow tract obstruction not identified. Cavity obliteration at mid ventricle. Left ventricle is hy perdynamic. EF > 70%. Aortic valve sclerosis mild, without significant aortic valve stenosis. --Peritoneal fluid analysis-no organism and wbc --Serology positive for COVID-19 --Blood cultures- negative to date Appreciate pulmonology input Completed zosyn/doxycycline course CRP trended down Completed dexamethasone 10 day treatement Continue to wean oxygen as tolerated PT recommends SNF placement Diarrhea Likely due to antibiotics Stool for C. difficile negative Imodium as needed Hypotension Continue midodrine Suspected dysphagia Aspiration precaution Speech eval and recs noted Troponin elevation: secondary to illness in the setting of chronic kidney dysfunction, history ESRD on PD ESRD on PD: Continue dialysis as per nephrology Plan for HD catheter placement tomorrow AM Hyperglycemia secondary to diabetes HbA1c 6.7 Continue insulin while hospitalized Monitor BGs H/O PE/A-fib (early TBS) On Coumadin--initially held due to supratherapeutic INR. Got Vit K on 12/02/24 INR is 1.4 today Continue heparin drip till midnight Plan to resume warfarin at lower dose after procedure Continue metoprolol, amiodarone. Other chronic medical conditions: Continue withe home meds Hypertrophic cardiomyopathy CAD/ PVD COPD/RLD as per records Cirrhosis on imaging from past admission Prostate cancer S/P surgery Chronic anemia, Hb stable Cognitive impairment, patient mentating well Inclusion body myositis as per records, patient to decide on steroid Rx recommendation from local neurologist following recent outpatient visit Subclinical hypothyroidism , needs repeat thyroid function test in 6 weeks as outpatient Past tobacco abuse. CODE STATUS Full code I spent a total of 35 minutes coordinating, documenting and providing care for this patient excluding time spent in performance of separately billed services Admission and Anticipated Discharge Date Admission Date: November 19, 2024 Subjective Patient seen and examined No new complaints today Physical Exam Constitutional: + well hydrated; no acute distress Eyes: PERRL, conjunctivae normal, anicteric sclerae ENMT: external ear and nose normal, oropharynx normal Respiratory: On 4L NC, diminished breath sounds Cardiovascular: Rate/Rhythm: regular rate and regular rhythm Gastrointestinal (Abdomen): normal bowel sounds, soft, nontender, no hepatosplenomegaly PD catheter in situ Neurologic: PERRL, EOMI, accommodation nl, no face palsy, no dysarthria Psychiatric: Alert and oriented to person, cooperative Results & Data Results & Data Vital Signs (Past 12 Hours) Vital Signs Temp Pulse Pulse Pulse Resp BP Pulse Ox 12/05/24 10:28 36.4 C L 88 20 100/60 93 12/05/24 08:32 36.5 C 89 32 H 12/05/24 07:54 36.5 C 87 15 104/55 L 91 12/05/24 07:12 12/05/24 07:11 85 12/05/24 02:57 36.6 C 89 16 96/89 L 98 O2 Del Method O2 Flow Rate 12/05/24 10:28 Nasal Cannula 4 12/05/24 08:32 12/05/24 07:54 Room Air 4 12/05/24 07:12 Nasal Cannula 4 12/05/24 07:11 12/05/24 02:57 Room Air Laboratory Results Abnormal lab results 12/04/24 12/04/24 12/04/24 Range/Units 15:00 16:32 20:03 WBC (4.8-10.8) K/ul RBC (4.70-6.10) M/uL Hgb (14.0-18.0) g/dl Hct (42.0-52.0) % RDW Std Deviation (36.4-46.3) fL RDW Coeff of Maureen (11.5-14.5) % PT (9.0-12.0) Seconds INR (0.9-1.1) APTT 38 H (21-31) Seconds Potassium (3.5-5.1) mmol/L Chloride (98-107) mmol/L BUN (6-23) mg/dl Creatinine (0.6-1.4) mg/dl BUN/Creatinine Ratio (10-20) Glucose (70-99(Fasting)) mg/dl POC Glucose 138 H 187 H (70-99) mg/dl Calcium (8.6-10.3) mg/dl 12/05/24 12/05/24 12/05/24 Range/Units 06:50 06:58 11:16 WBC 14.21 H (4.8-10.8) K/ul RBC 3.68 L (4.70-6.10) M/uL Hgb 11.3 L (14.0-18.0) g/dl Hct 32.0 L (42.0-52.0) % RDW Std Deviation 50.4 H (36.4-46.3) fL RDW Coeff of Maureen 16.1 H (11.5-14.5) % PT 15.2 H (9.0-12.0) Seconds INR 1.4 H (0.9-1.1) APTT (21-31) Seconds Potassium 3.4 L (3.5-5.1) mmol/L Chloride 96 L (98-107) mmol/L BUN 58 H (6-23) mg/dl Creatinine 6.49 H* (0.6-1.4) mg/dl BUN/Creatinine Ratio 8.9 L (10-20) Glucose 161 H (70-99(Fasting)) mg/dl POC Glucose 165 H 104 H (70-99) mg/dl Calcium 8.0 L (8.6-10.3) mg/dl
[2024-12-06 08:56] LABS: Hematocrit (blood only) 29.3 % (42.0-52.0); Hemoglobin 9.9 g/dl (14.0-18.0); Mean Corpuscular Hemoglobin 29.5 pg (25.0-34.0); Mean Corpuscular Hgb Conc 33.8 g/dL (32.0-36.0); Mean Corpuscular Volume 87.2 fL (80.0-100.0); Mean Platelet Volume 11.2 fL (9.4-12.4); Platelet Count 219 K/uL (130-400); Red Blood Count 3.36 M/uL (4.70-6.10); White Blood Count 12.72 K/ul (4.8-10.8)
[2024-12-06] MEDS ORDERED: SODIUM CHLOR 7% 4 ML NEB NEB PRN (09:04)
[2024-12-06 09:34] LABS: BUN Creatinine Ratio 7.8 (10-20); Calcium 7.9 mg/dl (8.6-10.3); Potassium 3.7 mmol/L (3.5-5.1)
--- NOTE | 2024-12-06 09:40 | Dialysis Progress Note ---
Date of Service December 06, 2024 Assessment & Plan Admission and Anticipated Discharge Date Admission Date: November 19, 2024 Subjective Assessment & Plan (1) Peritoneal dialysis status: Plan: had routine PD last evening. net UF 300 ml. Off bipap Now on NC but still w/ high needs w/ activity. Breathing better but still on oxygen NC due to pneumonia/ARDS for TDC today. Will do HD tomorrow and then IHD at [facility] K is normal. BP tends to run low and is on Midodrine (2) Accident due to mechanical fall without injury: Plan: Continue PT and then rehab Subjective Seen for ESRD on PD. He had cycles PD last night and was net negative 300 ml. Still on oxygen nasal canula. For HD cath later today Review of Systems Review of Systems: All other systems were reviewed and negative except as noted in HPI Physical Exam Physical Exam: General exam: Appears comfortable, no acute distress HEENT: Pupils are equal and reactive to light Neck: No JVD, neck is supple trachea is midline Respiratory system: Crackles bilaterally. Gastrointestinal: Abdomen is soft, non distended, non tender, bowel sounds are present CVS: Regular rate and rhythm. No murmurs, rubs or gallops Musculoskeletal: No joint or muscle tenderness Extremities: Non tender, no edema, peripheral pulses are present Neuro: Oriented, no tremors, no focal neurological deficits Skin: No rashes Results & Data Vital Signs (Past 12 Hours) Vital Signs Temp Pulse Pulse Pulse Resp BP Pulse Ox 12/06/24 08:54 12/06/24 08:53 76 12/06/24 08:13 36.3 C L 75 25 H 12/06/24 02:37 36.5 C 77 16 104/68 98 12/05/24 23:25 36.8 C 75 16 120/63 93 12/05/24 21:51 76 O2 Del Method O2 Flow Rate 12/06/24 08:54 Nasal Cannula 4 12/06/24 08:53 12/06/24 08:13 12/06/24 02:37 Nasal Cannula 5 12/05/24 23:25 Nasal Cannula 3.0 12/05/24 21:51
--- NOTE | 2024-12-06 09:50 | Hospitalist Progress Note ---
Date of Service December 06, 2024 Assessment & Plan (1) Encephalopathy: Plan 79-year-old male with PMH of PE/A-fib on Coumadin, hypertrophic CM, CAD, PVD, hypotension on midodrine, COPD/RLD, ESRD on PD, esophageal achalasia, cirrhosis, prostate cancer status post surgery, MGUS, chronic anemia [baseline hemoglobin of 10-11], cognitive impairment, inclusion body myositis, past tobacco abuse who was recently admitted for COVID - 19 pneumonia/sp decdron Rx for 3-4 days/discharged to [facility] on room air presents w/ c/o increasing weakness, fall (no head trauma, witnessed fall). Severe sepsis-POA Bilateral pneumonia Acute metabolic encephalopathy: likely 2/2 acute illness iso underlying cognitive impairment. Acute hypoxic respiratory failure COVID-19 infection ARDS --CT chest with interval early bilateral pneumonia Compared to CT chest on 11/12 --ECHO: Mild concentric LVH. Asymmetric left ventricular hypertrophy involving the septum with maximal thickness of 2.1 cm. Outflow tract obstruction not identified. Cavity obliteration at mid ventricle. Left ventricle is hy perdynamic. EF > 70%. Aortic valve sclerosis mild, without significant aortic valve stenosis. --Peritoneal fluid analysis-no organism and wbc --Serology positive for COVID-19 --Blood cultures- negative to date Appreciate pulmonology input Completed zosyn/doxycycline course CRP trended down Completed dexamethasone 10 day treatement Continue to wean oxygen as tolerated PT recommends SNF placement Diarrhea Likely due to antibiotics Stool for C. difficile negative Imodium as needed Hypotension Continue midodrine Suspected dysphagia Aspiration precaution Speech eval and recs noted Troponin elevation: secondary to illness in the setting of chronic kidney dysfunction, history ESRD on PD ESRD on PD: Continue dialysis as per nephrology Plan for HD catheter placement today Hyperglycemia secondary to diabetes HbA1c 6.7 Continue insulin while hospitalized Monitor BGs H/O PE/A-fib (early TBS) On Coumadin--initially held due to supratherapeutic INR. Got Vit K on 12/02/24 Plan to resume warfarin at lower dose after procedure Continue metoprolol, amiodarone. Other chronic medical conditions: Continue withe home meds Hypertrophic cardiomyopathy CAD/ PVD COPD/RLD as per records Cirrhosis on imaging from past admission Prostate cancer S/P surgery Chronic anemia, Hb stable Cognitive impairment, patient mentating well Inclusion body myositis as per records, patient to decide on steroid Rx recommendation from local neurologist following recent outpatient visit Subclinical hypothyroidism , needs repeat thyroid function test in 6 weeks as outpatient Past tobacco abuse. CODE STATUS Full code Updated son at bedside I spent a total of 45 minutes coordinating, documenting and providing care for this patient excluding time spent in performance of separately billed services Admission and Anticipated Discharge Date Admission Date: November 19, 2024 Subjective Patient seen and examined No new complaints today Physical Exam Constitutional: + well hydrated; no acute distress Eyes: PERRL, conjunctivae normal, anicteric sclerae ENMT: external ear and nose normal, oropharynx normal Respiratory: On nasal cannula, diminished breath sounds Cardiovascular: Rate/Rhythm: regular rate and regular rhythm Gastrointestinal (Abdomen): normal bowel sounds, soft, nontender, no hepatosplenomegaly Neurologic: PERRL, EOMI, accommodation nl, no face palsy, no dysarthria Psychiatric: Alert and oriented to person, knows he is in a hospital but not the name, not oriented to time. Cooperative Results & Data Results & Data Vital Signs (Past 12 Hours) Vital Signs Temp Pulse Pulse Pulse Resp BP Pulse Ox 12/06/24 08:54 12/06/24 08:53 76 12/06/24 08:13 36.3 C L 75 25 H 12/06/24 02:37 36.5 C 77 16 104/68 98 12/05/24 23:25 36.8 C 75 16 120/63 93 12/05/24 21:51 76 O2 Del Method O2 Flow Rate 12/06/24 08:54 Nasal Cannula 4 12/06/24 08:53 12/06/24 08:13 12/06/24 02:37 Nasal Cannula 5 12/05/24 23:25 Nasal Cannula 3.0 12/05/24 21:51 Laboratory Results Abnormal lab results 12/05/24 12/05/24 12/05/24 Range/Units 11:16 16:19 19:52 WBC (4.8-10.8) K/ul RBC (4.70-6.10) M/uL Hgb (14.0-18.0) g/dl Hct (42.0-52.0) % RDW Std Deviation (36.4-46.3) fL RDW Coeff of Maureen (11.5-14.5) % Carbon Dioxide (21-32) mmol/L BUN (6-23) mg/dl Creatinine (0.6-1.4) mg/dl BUN/Creatinine Ratio (10-20) Glucose (70-99(Fasting)) mg/dl POC Glucose 104 H 118 H 188 H (70-99) mg/dl Calcium (8.6-10.3) mg/dl 12/06/24 12/06/24 Range/Units 06:18 08:29 WBC 12.72 H (4.8-10.8) K/ul RBC 3.36 L (4.70-6.10) M/uL Hgb 9.9 L (14.0-18.0) g/dl Hct 29.3 L (42.0-52.0) % RDW Std Deviation 50.0 H (36.4-46.3) fL RDW Coeff of Maureen 16.0 H (11.5-14.5) % Carbon Dioxide 34 H (21-32) mmol/L BUN 52 H (6-23) mg/dl Creatinine 6.63 H* (0.6-1.4) mg/dl BUN/Creatinine Ratio 7.8 L (10-20) Glucose 101 H (70-99(Fasting)) mg/dl POC Glucose 205 H (70-99) mg/dl Calcium 7.9 L (8.6-10.3) mg/dl
--- NOTE | 2024-12-06 10:47 | History & Physical Bridge Note ---
Date of Service December 06, 2024 History & Physical Bridge Note Patient for insertion of a permcath today. I have discussed the risks options and benefits of the procedure with the patient. The patient understands the risks options and benefits and agrees to the procedure. I have examined the patient, reviewed the History & Physical and in the interval since the performance of the History & Physical I have noted the following changes of clinical significance: no changes noted
[2024-12-06 11:43] LABS: INR 1.3 (0.9-1.1)
--- NOTE | 2024-12-06 11:52 | Pre Anesthesia Assessment ---
Date of Service December 06, 2024 Pre Sedation Assessment Vital Signs Temp Pulse Pulse Pulse Pulse Resp BP 12/06/24 11:10 36.8 C 79 20 99/60 L 12/06/24 10:50 74 21 104/57 L 12/06/24 08:54 12/06/24 08:53 76 12/06/24 08:13 36.3 C L 75 25 H 12/06/24 02:37 36.5 C 77 16 104/68 12/05/24 23:25 36.8 C 75 16 120/63 12/05/24 21:51 76 12/05/24 18:47 12/05/24 18:46 77 25 H 99/57 L 12/05/24 17:38 82 12/05/24 15:41 36.3 C L 79 36 H 111/57 L 12/05/24 15:08 36.3 C L 78 22 110/58 L Pulse Ox O2 Del Method O2 Flow Rate 12/06/24 11:10 97 Nasal Cannula 5 12/06/24 10:50 97 Nasal Cannula 5 12/06/24 08:54 Nasal Cannula 4 12/06/24 08:53 12/06/24 08:13 12/06/24 02:37 98 Nasal Cannula 5 12/05/24 23:25 93 Nasal Cannula 3.0 12/05/24 21:51 12/05/24 18:47 Nasal Cannula 5 12/05/24 18:46 93 Nasal Cannula 5 12/05/24 17:38 12/05/24 15:41 12/05/24 15:08 91 Room Air Cardiovascular RRR, no murmur, no edema Respiratory normal respiratory effort, lungs clear to auscultation Pre-Sedation Airway Assessment Smoking Status: Former smoker Hx Sleep Apnea: No Short, Thick Neck: No Thyromental Distance: > or= 3.5 Finger Breadths Oral Cavity: + WNL Mallampati Class: II ASA: ASA3 NPO Status Date of Last Intake of Fluids: 12/06/24 Time of Last Intake of Fluids: 06:00 Last Oral Intake of Fluids Comment: sips of water with meds. Date of Last Intake of Solid Food: 12/05/24 Time of Last Intake of Solid Foods: 21:00 Procedure Planning Contraindications for Sedation: none Current Medications Reviewed: Yes Notes The planned sedation has been discussed with the patient. Informed Consent was obtained. I have identified the patient, determined the appropriateness of sedation and have assessed the patient immediately prior to the procedure. All medicine(s) and interventions are by my order.
--- NOTE | 2024-12-06 12:10 | Operative Report ---
Post Operative Report Pre & Post Diagnosis Operation Date: 12/06/24 07:00 Pre-Op Diagnosis: End Stage Renal Post-Op Diagnosis: End Stage Renal I identified the patient and participated in the time-out.: Yes Procedure Operation Date: 12/06/24 07:00 Actual Procedures p Perm Catheter Insertion, Right Internal Jugular approach, Ultrasound Localization of Right Internal Jugular Vein, Fluoroscopy for Positioning(Right) - Osito Spann MD Surgeon Osito Spann MD Resilient Tile Installer none Estimated Blood Loss 5 Findings Consistent with Post-Op Diagnosis Specimens none Anesthesia Type Local Complications none Disposition Accompanied Patient To Recovery: No Disposition: Recovery Room Indications This is a 79-year-old gentleman on peritoneal dialysis. He needs to go to a extended care facility and does not handle peritoneal dialysis. PermCath was recommended for hemodialysis. I have discussed the risks options and benefits of the procedure with the patient. The patient understands the risks options and benefits and agrees to the procedure. Description of Procedure Patient was taken to the angio suite and placed in the supine position. The right side of the neck and chest wall were prepped and draped in a sterile manner. The patient was identified and a timeout performed. Local anesthesia was then administered to the appropriate areas of the neck and chest wall. Ultrasound was then used to locate the right internal jugular vein. The vein compressed easily, had no filing defects, and was patent. The vein was then punctured under direct ultrasound imaging. A guidewire was then passed centrally under fluoroscopic imaging. A stab wound was then made in the anterior chest wall and a 19 cm permcath was passed from the stab wound on the chest wall to the puncture site on the neck. The puncture site was then dilated till the 14Fr peel away sheath was inserted. The permcath was then inserted through the sheath to a central position in the distal superior vena cava. The peel away sheath was then removed. The catheter was then sutured in place using nylon sutures. The puncture was then closed using a 4-0 Vicryl subcuticular suture. Dermabond was used for a dressing on the puncture site. Both ports aspirated and flushed easily and were then packed with heparin. A sterile dressing was applied to the catheter. The patient left the operation room in satisfactory condition and tolerated the procedure well. All needle and sponge counts were correct at the end of the procedure. I attest to the content of the Intraoperative Record and any orders documented therein. Any exceptions are noted below.
[2024-12-06] MEDS: ceFAZolin 2,000 MG/15 ML IV PUSH IV ONE (12:49)
[2024-12-06] MEDS: HEPARIN SOD (PORCINE) 5,000 UNITS/ML VIAL ONE (12:49)
[2024-12-06] MEDS: LIDOCAINE 1% LOCAL 20 ML VIAL ONE (12:49)
[2024-12-06] MEDS: fentaNYL citrate PF 100 MCG/2 ML VIAL ONE (12:50)
[2024-12-06] MEDS: MIDAZOLAM HCL 1 MG/ML 2ML VIAL ONE (12:51)
[2024-12-06] MEDS: ceFAZolin 2000MG 2,000 MG/15 ML SYR IV STA (12:51)
--- NOTE | 2024-12-06 14:06 | Pharmacy Report ---
Pharmacy Glycemic Short Note 2 - Date of Service December 06, 2024 - Glycemic Short BSG Results (Last 24 hours): 12/05/24 12/05/24 12/06/24 16:19 19:52 06:18 Glucose POC Glucose 118 H 188 H 205 H 12/06/24 12/06/24 08:29 12:33 Glucose 101 H POC Glucose 95 OUTPATIENT ANTIDIABETIC REGIMEN: * 6.4% 11/13/24 * N/A ASSESSMENT: 12/06: * BSGs once again oitlio overnight and into this morning with PD but resolved upon completion of PD. BSGs yesterday were [phone] mg/dL and this morning 205-101 mg/dL. * Patient was NPO this morning for placement of a HD catheter and had a diet resumed at lunch time. * There are no plans for PD or HD today. Given today's BSGs post PD and typical trend of being in range outside of PD administration, will hold basal insulin today. Possible plan for HD tomorrow. 12/04: * Patient continues on PD, blood sugars otilio overnight last night, was covered with NovoLog, will change back to a reduced dose of NPH for tonight's PD. * No further Lantus as steroids have been discontinued. * Continue NovoLog parameters. 12/03: * BSGs [phone]/dl the last 24h. Pt did have a low BSG yesterday afternoon, 60mg/dl that required treatment. Received 23 units of basal and 9 units of bolus insulin yesterday. * NPO since midnight last night for HD permacath placement which was unable to be performed due to INR-diet resumed at lunch (although no PO intake documen monty for ~ 24h). Dexamethasone discontinued. * Will hold basal insulin today given overall downward trend in BSGs and now without steroids on board and decreased PO. Unclear plan for dialysis moving forward (no PD orders placed as of yet, re-attempt at HD cath). Therefore, will plan for overnight checks tonight with Novolog to provide some PD correctional coverage if ordered. Novolog also loosened given discontinuation of steroids. 12/02: * BSGs 290-220-395lq/dL the last 24h. Received 28 units of basal and 15 units of bolus insulin yesterday. * Some PO intake documented yesterday. Day #10 dexamethasone today- will discontinue. Plan for overnight PD. * No changes to insulin today. Continue Lantus 8 units daily + NPH 20 units at dinner. Novolog 08/05 ACHS. 11/29: * BSGs largely within goal the last 24h: [phone]/dl. Received 23 units of basal insulin and 21 units of bolus insulin yesterday. * Continues on IV dexamethasone 6mg daily, zosyn and overnight PD. Minimal documented PO intake today. * Continue Lantus 8 units daily to provide coverage of steroids. NPH 15 units at dinner for PD coverage. No change to Novolog parameters - will stop overnight checks given evening NPH. 11/28: * Monster received 33 units of insulin yesterday (8 Lantus, 10 insulin NPH) * IV dexamethasone 6mg continues, will give a small dose (~0.1 units/kg) of long-acting basal insulin to help cover steroid induced hyperglycemia * Insulin NPH re-initiated yesterday evening around when peritoneal dialysis begins, NPH vs Lantus since duration of action would better cover dialysate induced hyperglycemia. Dose increased from yesterday as BSGs overnight still elevated. * No changes to NovoLog since titrating NPH today. He is finishing up his course of ABX for pneumonia. 11/26: * BSGs [phone]/dl the last 24h. Received 13units of bolus insulin yesterday. * Continues on dexamethasone 6mg IV daily, zosyn, and PD overnight. PD dextrose concentration for tonight unclear. * NPH was held yesterday evening per provider d/t decreased PO. Continues w/ decreased PO intake today. Will switch to Lantus 8 units X 1 dose today with lunch to provide basal coverage given decreased PO. No change to Novolog for today. 11/25 * Dexamethasone 6 mg IV continues * BSG wnl at lunch yesterday, but hyperglycemia noted in the evening and overnight, likely 2nd PD bags (6 bags of 4.25% dextrose). BSG back down to goal this AM. * Dialysate changing this evening per nephrology note - plans 6 bags of 2.5% dextrose, which is almost half of the dextrose as compared to yesterday. Will continue NPH given at 1700, but will reduce slightly 2nd significant dextrose reduction in dialysate * Correction factor seems to be working after dextrose load in PD finishes, based on BSG's in goal range x2 the last 2 days after PD. Will therefore leave correction factor as-is. 2/ * Patient with significant hyperglycemia overnight- possibly d/t increase in dextrose content in PD bags and steroids * Patient was given 20 units of Lantus and started on weight based stress of 3 novolog. Trended down overnight. * Patient currently has diet ordered but minimal intake. Dexamethasone 6 mg daily ordered. * Will trial NPH with dinner to help cover PD bags rather than long acting basal * Continue weight based of 3 NovoLog for now with overnight checks. Caution with IV regular bolus insulin d/t hypokalemia PLAN FOR INPATIENT GLYCEMIC CONTROL: * Basal insulin * Hold * Bolus insulin * NovoLog per scale ACHS or Q6hrs while NPO * Goal Range: Low 110 mg/dL - High 140 mg/dL * Correction Factor: 30 mg/dL/unit * Nutritional / Prandial insulin per carb ratio of 1 unit per 10 grams CHO consumed
[2024-12-07 07:08] LABS: Hematocrit (blood only) 28.3 % (42.0-52.0); Hemoglobin 9.5 g/dl (14.0-18.0); Mean Corpuscular Hemoglobin 29.6 pg (25.0-34.0); Mean Corpuscular Hgb Conc 33.6 g/dL (32.0-36.0); Mean Corpuscular Volume 88.2 fL (80.0-100.0); Platelet Count 184 K/uL (130-400); RDW Coefficient of Variation 15.9 % (11.5-14.5); RDW Standard Deviation 50.7 fL (36.4-46.3); Red Blood Count 3.21 M/uL (4.70-6.10); White Blood Count 11.12 K/ul (4.8-10.8)
[2024-12-07 07:17] LABS: INR 1.3 (0.9-1.1); Prothrombin Time 14.1 Seconds (9.0-12.0)
[2024-12-07 07:22] LABS: BUN Creatinine Ratio 8.3 (10-20); Calcium 7.8 mg/dl (8.6-10.3); Creatinine Clr Calc Pharmacy 8.5 ml/min; Potassium 4.6 mmol/L (3.5-5.1)
--- NOTE | 2024-12-07 10:19 | Dialysis Progress Note ---
Date of Service December 07, 2024 Assessment & Plan Admission and Anticipated Discharge Date Admission Date: November 19, 2024 Subjective Assessment & Plan (1)ESRD---- Plan: Breathing better but still on oxygen NC due to pneumonia/ARDS First HD with new HD cath.working fine. Will do HD today and then IHD at [facility]. Once Discharged from [facility] he will be back on PD. K is normal. BP tends to run low and is on Midodrine (2) Accident due to mechanical fall without injury: Plan: Continue PT and then rehab Subjective Seen during dialysis. new CVC worked fine. BP is fine so far. Still on oxygen nasal canula. For HD cath later today. Review of Systems Review of Systems: All other systems were reviewed and negative except as noted in HPI Physical Exam Physical Exam: General exam: Appears comfortable, no acute distress HEENT: Pupils are equal and reactive to light Neck: No JVD, neck is supple trachea is midline Respiratory system: Crackles bilaterally. Gastrointestinal: Abdomen is soft, non distended, non tender, bowel sounds are present CVS: Regular rate and rhythm. No murmurs, rubs or gallops Musculoskeletal: No joint or muscle tenderness Extremities: Non tender, no edema, peripheral pulses are present Neuro: Oriented, no tremors, no focal neurological deficits Skin: No rashes Results & Data Vital Signs (Past 12 Hours) Vital Signs Temp Pulse Pulse Pulse Resp BP Pulse Ox 12/07/24 08:01 36.5 C 67 18 150/83 H 98 12/07/24 07:50 75 12/07/24 03:08 36.8 C 77 20 111/69 92 12/06/24 23:06 36.8 C 80 17 124/75 97 12/06/24 22:57 75 O2 Del Method O2 Flow Rate 12/07/24 08:01 Nasal Cannula 5 12/07/24 07:50 12/07/24 03:08 Nasal Cannula 5.0 12/06/24 23:06 Nasal Cannula 5.0 12/06/24 22:57
--- NOTE | 2024-12-07 10:43 | Hospitalist Progress Note ---
Date of Service December 07, 2024 Assessment & Plan (1) Encephalopathy: Plan 79-year-old male with PMH of PE/A-fib on Coumadin, hypertrophic CM, CAD, PVD, hypotension on midodrine, COPD/RLD, ESRD on PD, esophageal achalasia, cirrhosis, prostate cancer status post surgery, MGUS, chronic anemia [baseline hemoglobin of 10-11], cognitive impairment, inclusion body myositis, past tobacco abuse who was recently admitted for COVID - 19 pneumonia/sp decdron Rx for 3-4 days/discharged to [facility] on room air presents w/ c/o increasing weakness, fall (no head trauma, witnessed fall). Severe sepsis-POA Bilateral pneumonia Acute metabolic encephalopathy: likely 2/2 acute illness iso underlying cognitive impairment. Acute hypoxic respiratory failure COVID-19 infection ARDS --CT chest with interval early bilateral pneumonia Compared to CT chest on 11/12 --ECHO: Mild concentric LVH. Asymmetric left ventricular hypertrophy involving the septum with maximal thickness of 2.1 cm. Outflow tract obstruction not identified. Cavity obliteration at mid ventricle. Left ventricle is hy perdynamic. EF > 70%. Aortic valve sclerosis mild, without significant aortic valve stenosis. --Peritoneal fluid analysis-no organism and wbc --Serology positive for COVID-19 --Blood cultures- negative to date Appreciate pulmonology input Completed zosyn/doxycycline course CRP trended down Completed dexamethasone 10 day treatement Continue to wean oxygen as tolerated PT recommends SNF placement Hypotension Continue midodrine Suspected dysphagia Aspiration precaution Speech eval and recs noted Troponin elevation: secondary to illness in the setting of chronic kidney dysfunction, history ESRD on PD ESRD : Continue dialysis as per nephrology Got HD catheter placed by Vascular sx yesterday To get HD today Hyperglycemia secondary to diabetes HbA1c 6.7 Continue insulin while hospitalized Monitor BGs H/O PE/A-fib (early TBS) On Coumadin--initially held due to supratherapeutic INR. Got Vit K on 12/02/24 Warfarin resumed. Monitro INR Continue metoprolol, amiodarone. Other chronic medical conditions: Continue withe home meds Hypertrophic cardiomyopathy CAD/ PVD COPD/RLD as per records Cirrhosis on imaging from past admission Prostate cancer S/P surgery Chronic anemia, Hb stable Cognitive impairment, patient mentating well Inclusion body myositis as per records, patient to decide on steroid Rx recommendation from local neurologist following recent outpatient visit Subclinical hypothyroidism , needs repeat thyroid function test in 6 weeks as outpatient Past tobacco abuse. CODE STATUS Full code I spent a total of 40 minutes coordinating, documenting and providing care for this patient excluding time spent in performance of separately billed services Admission and Anticipated Discharge Date Admission Date: November 19, 2024 Subjective Patient seen and examined Patient reports no complaints today Physical Exam Constitutional: + well hydrated; no acute distress Eyes: PERRL, conjunctivae normal, anicteric sclerae ENMT: external ear and nose normal, oropharynx normal Respiratory: On nasal cannula, diminished breath sounds Cardiovascular: Rate/Rhythm: regular rate and regular rhythm Chest (Breasts): Additional Comments: HD catheter on right anterior chest wall Gastrointestinal (Abdomen): normal bowel sounds, soft, nontender, no hepatosplenomegaly Musculoskeletal: No pedal edema Neurologic: PERRL, EOMI, accommodation nl, no face palsy, no dysarthria Psychiatric: Alert and oriented to person, cooperative Results & Data Results & Data Vital Signs (Past 12 Hours) Vital Signs Temp Pulse Pulse Pulse Pulse Resp BP 12/07/24 10:15 12/07/24 09:30 36.5 C 70 12/07/24 08:01 36.5 C 67 18 150/83 H 12/07/24 07:50 75 12/07/24 03:08 36.8 C 77 20 111/69 12/06/24 23:06 36.8 C 80 17 124/75 12/06/24 22:57 75 Pulse Ox O2 Del Method O2 Flow Rate 12/07/24 10:15 Nasal Cannula 5 12/07/24 09:30 12/07/24 08:01 98 Nasal Cannula 5 12/07/24 07:50 12/07/24 03:08 92 Nasal Cannula 5.0 12/06/24 23:06 97 Nasal Cannula 5.0 12/06/24 22:57 Laboratory Results Abnormal lab results 12/06/24 12/06/24 12/06/24 Range/Units 08:29 16:22 20:32 WBC (4.8-10.8) K/ul RBC (4.70-6.10) M/uL Hgb (14.0-18.0) g/dl Hct (42.0-52.0) % RDW Std Deviation (36.4-46.3) fL RDW Coeff of Maureen (11.5-14.5) % PT 14.0 H (9.0-12.0) Seconds INR 1.3 H (0.9-1.1) Chloride (98-107) mmol/L BUN (6-23) mg/dl Creatinine (0.6-1.4) mg/dl BUN/Creatinine Ratio (10-20) POC Glucose 106 H 111 H (70-99) mg/dl Calcium (8.6-10.3) mg/dl 12/07/24 12/07/24 Range/Units 06:36 07:30 WBC 11.12 H (4.8-10.8) K/ul RBC 3.21 L (4.70-6.10) M/uL Hgb 9.5 L (14.0-18.0) g/dl Hct 28.3 L (42.0-52.0) % RDW Std Deviation 50.7 H (36.4-46.3) fL RDW Coeff of Maureen 15.9 H (11.5-14.5) % PT 14.1 H (9.0-12.0) Seconds INR 1.3 H (0.9-1.1) Chloride 97 L (98-107) mmol/L BUN 64 H (6-23) mg/dl Creatinine 7.75 H* D (0.6-1.4) mg/dl BUN/Creatinine Ratio 8.3 L (10-20) POC Glucose 103 H (70-99) mg/dl Calcium 7.8 L (8.6-10.3) mg/dl
[2024-12-07] MEDS: EPOETIN ALFA 10,000 UNITS/ML VIAL IV ONE (11:20)
--- NOTE | 2024-12-07 11:36 | Pharmacy Report ---
Pharmacy Glycemic Short Note 2 - Date of Service December 07, 2024 - Glycemic Short BSG Results (Last 24 hours): 12/06/24 12/06/24 12/06/24 12:33 16:22 20:32 Glucose POC Glucose 95 106 H 111 H 12/07/24 12/07/24 06:36 07:30 Glucose 91 POC Glucose 103 H OUTPATIENT ANTIDIABETIC REGIMEN: * 6.4% 11/13/24 * N/A ASSESSMENT: 12/07: * BSGs over the past 24 hours were 863-43-302-111 mg/dL and this morning were 91-103 mg/dL. Patient received 3 units of novolog yesterday. * Patient undergoing first HD session today. * Will monitor BSGs over the next 24 hours but without dextrose for PD, BSGs relatively well controlled with very little insulin. * Patient's PO intake remains minimal. 12/06: * BSGs once again otilio overnight and into this morning with PD but resolved upon completion of PD. BSGs yesterday were [phone] mg/dL and this morning 205-101 mg/dL. * Patient was NPO this morning for placement of a HD catheter and had a diet resumed at lunch time. * There are no plans for PD or HD today. Given today's BSGs post PD and typical trend of being in range outside of PD administration, will hold basal insulin today. Possible plan for HD tomorrow. 12/04: * Patient continues on PD, blood sugars otilio overnight last night, was covered with NovoLog, will change back to a reduced dose of NPH for tonight's PD. * No further Lantus as steroids have been discontinued. * Continue NovoLog parameters. 12/03: * BSGs 045-184-066-114mg/dl the last 24h. Pt did have a low BSG yesterday afternoon, 60mg/dl that required treatment. Received 23 units of basal and 9 units of bolus insulin yesterday. * NPO since midnight last night for HD permacath placement which was unable to be performed due to INR-diet resumed at lunch (although no PO intake documented for ~ 24h). Dexamethasone discontinued. * Will hold basal insulin today given overall downward trend in BSGs and now without steroids on board and decreased PO. Unclear plan for dialysis moving forward (no PD orders placed as of yet, re-attempt at HD cath). Therefore, will plan for overnight checks tonight with Novolog to provide some PD correctional coverage if ordered. Novolog also loosened given discontinuation of steroids. 12/02: * BSGs 274-356-760gp/dL the last 24h. Received 28 units of basal and 15 units of bolus insulin yesterday. * Some PO intake documented yesterday. Day #10 dexamethasone today- will discontinue. Plan for overnight PD. * No changes to insulin today. Continue Lantus 8 units daily + NPH 20 units at dinner. Novolog 08/05 ACHS. 11/29: * BSGs largely within goal the last 24h: [phone]/dl. Received 23 units of basal insulin and 21 units of bolus insulin yesterday. * Continues on IV dexamethasone 6mg daily, zosyn and overnight PD. Minimal documented PO intake today. * Continue Lantus 8 units daily to provide coverage of steroids. NPH 15 units at dinner for PD coverage. No change to Novolog parameters - will stop overnight checks given evening NPH. 11/28: * Monster received 33 units of insulin yesterday (8 Lantus, 10 insulin NPH) * IV dexamethasone 6mg continues, will give a small dose (~0.1 units/kg) of long-acting basal insulin to help cover steroid induced hyperglycemia * Insulin NPH re-initiated yesterday evening around when peritoneal dialysis begins, NPH vs Lantus since duration of action would better cover dialysate induced hyperglycemia. Dose increased from yesterday as BSGs overnight still elevated. * No changes to NovoLog since titrating NPH today. He is finishing up his course of ABX for pneumonia. 11/26: * BSGs [phone]/dl the last 24h. Received 13units of bolus insulin yesterday. * Continues on dexamethasone 6mg IV daily, zosyn, and PD overnight. PD dextrose concentration for tonight unclear. * NPH was held yesterday evening per provider d/t decreased PO. Continues w/ decreased PO intake today. Will switch to Lantus 8 units X 1 dose today with lunch to provide basal coverage given decreased PO. No change to Novolog for today. 11/25 * Dexamethasone 6 mg IV continues * BSG wnl at lunch yesterday, but hyperglycemia noted in the evening and overnight, likely 2nd PD bags (6 bags of 4.25% dextrose). BSG back down to goal this AM. * Dialysate changing this evening per nephrology note - plans 6 bags of 2.5% dextrose, which is almost half of the dextrose as compared to yesterday. Will continue NPH given at 1700, but will reduce slightly 2nd significant dextrose reduction in dialysate * Correction factor seems to be working after dextrose load in PD finishes, based on BSG's in goal range x2 the last 2 days after PD. Will therefore leave correction factor as-is. 2/ * Patient with significant hyperglycemia overnight- possibly d/t increase in dextrose content in PD bags and steroids * Patient was given 20 units of Lantus and started on weight based stress of 3 novolog. Trended down overnight. * Patient currently has diet ordered but minimal intake. Dexamethasone 6 mg daily ordered. * Will trial NPH with dinner to help cover PD bags rather than long acting basal * Continue weight based of 3 NovoLog for now with overnight checks. Caution with IV regular bolus insulin d/t hypokalemia PLAN FOR INPATIENT GLYCEMIC CONTROL: * Basal insulin * Hold * Bolus insulin * NovoLog per scale ACHS or Q6hrs while NPO * Goal Range: Low 110 mg/dL - High 140 mg/dL * Correction Factor: 30 mg/dL/unit * Nutritional / Prandial insulin per carb ratio of 1 unit per 15 grams CHO consumed
--- NOTE | 2024-12-07 12:25 | Electrocardiogram Report ---
Test Reason : Blood Pressure : */* mmHG Vent. Rate : 78 BPM Atrial Rate : 78 BPM P-R Int : 196 ms QRS Dur : 146 ms QT Int : 504 ms P-R-T Axes : -26 -74 -2 degrees QTcB Int : 574 ms Normal sinus rhythm Right bundle branch block Left anterior fascicular block Bifascicular block Abnormal ECG Confirmed by Dominic May ([id number]) on 12/07/2024 12:25:06 PM Referred By: REFERRED SELF Confirmed By: Dominic May
[2024-12-07] MEDS: WARFARIN SOD 1.25 MG TAB PO SCH (16:21)
--- NOTE | 2024-12-07 21:35 | CT Scan Report ---
Exam(s): CT HEAD Without Contrast EXAM: CT Head Without Intravenous Contrast CLINICAL HISTORY: Reason for exam: AMS?. TECHNIQUE: Axial computed tomography images of the head/brain without intravenous contrast. CTDI is 64.34 mGy and DLP is 1098.96 mGy-cm. Automated exposure control was utilized for the study. A dose lowering technique was utilized adhering to the principles of ALARA. COMPARISON: 11/19/2024 FINDINGS: Artifacts: Images are slightly degraded by motion artifact. Brain: No hemorrhage, extra-axial fluid collection, mass effect, or edema. Ventricles: Unremarkable. Bones/joints: Unremarkable. No fracture. Soft tissues: Unremarkable. Sinuses: Trace fluid within the maxillary sinuses. Mastoid air cells: Unremarkable as visualized. IMPRESSION: 1. No acute intracranial abnormality. Electronically signed by: Elmer Dixon MD 12/07/24 21:34 PM
[2024-12-08 08:43] LABS: Mean Corpuscular Hemoglobin 29.6 pg (25.0-34.0); Mean Corpuscular Hgb Conc 33.3 g/dL (32.0-36.0); Mean Corpuscular Volume 88.8 fL (80.0-100.0); Mean Platelet Volume 10.9 fL (9.4-12.4); Platelet Count 170 K/uL (130-400); RDW Standard Deviation 51.9 fL (36.4-46.3); Red Blood Count 3.38 M/uL (4.70-6.10); White Blood Count 10.58 K/ul (4.8-10.8)
[2024-12-08 08:53] LABS: INR 1.2 (0.9-1.1); Prothrombin Time 13.2 Seconds (9.0-12.0)
[2024-12-08 09:12] LABS: BUN Creatinine Ratio 7.1 (10-20); Creatinine Clr Calc Pharmacy 14.6 ml/min; Potassium 4.8 mmol/L (3.5-5.1)
--- NOTE | 2024-12-08 12:56 | Pharmacy Report ---
Pharmacy Glycemic Short Note 2 - Date of Service December 08, 2024 - Glycemic Short BSG Results (Last 24 hours): 12/07/24 12/07/24 12/07/24 13:27 16:30 19:59 Glucose POC Glucose 83 91 163 H 12/08/24 12/08/24 12/08/24 07:34 08:18 11:30 Glucose 156 H POC Glucose 141 H 173 H OUTPATIENT ANTIDIABETIC REGIMEN: * 6.4% 11/13/24 * N/A ASSESSMENT: 12/08 * BSGs yesterday 520-91-48-163 mg/dL with HD- received 1 unit of insulin * Fasting this morning 141 mg/dL. No HD planned for today * Continue to hold basal, continue same novolog parameters- monitor 12/07: * BSGs over the past 24 hours were 058-30-656-111 mg/dL and this morning were 91-103 mg/dL. Patient received 3 units of novolog yesterday. * Patient undergoing first HD session today. * Will monitor BSGs over the next 24 hours but without dextrose for PD, BSGs relatively well controlled with very little insulin. * Patient's PO intake remains minimal. 12/06: * BSGs once again otilio overnight and into this morning with PD but resolved upon completion of PD. BSGs yesterday were 103-244-183-188 mg/dL and this morning 205-101 mg/dL. * Patient was NPO this morning for placement of a HD catheter and had a diet resumed at lunch time. * There are no plans for PD or HD today. Given today's BSGs post PD and typical trend of being in range outside of PD administration, will hold basal insulin today. Possible plan for HD tomorrow. 12/04: * Patient continues on PD, blood sugars otilio overnight last night, was covered with NovoLog, will change back to a reduced dose of NPH for tonight's PD. * No further Lantus as steroids have been discontinued. * Continue NovoLog parameters. 12/03: * BSGs 488-280-901-114mg/dl the last 24h. Pt did have a low BSG yesterday afternoon, 60mg/dl that required treatment. Received 23 units of basal and 9 units of bolus insulin yesterday. * NPO since midnight last night for HD permacath placement which was unable to be performed due to INR-diet resumed at lunch (although no PO intake documented for ~ 24h). Dexamethasone discontinued. * Will hold basal insulin today given overall downward trend in BSGs and now without steroids on board and decreased PO. Unclear plan for dialysis moving forward (no PD orders placed as of yet, re-attempt at HD cath). Therefore, will plan for overnight checks tonight with Novolog to provide some PD correctional coverage if ordered. Novolog also loosened given discontinuation of steroids. 12/02: * BSGs 553-413-673rb/dL the last 24h. Received 28 units of basal and 15 units of bolus insulin yesterday. * Some PO intake documented yesterday. Day #10 dexamethasone today- will discontinue. Plan for overnight PD. * No changes to insulin today. Continue Lantus 8 units daily + NPH 20 units at dinner. Novolog 08/05 ACHS. 11/29: * BSGs largely within goal the last 24h: 284-335-633-129-181mg/dl. Received 23 units of basal insulin and 21 units of bolus insulin yesterday. * Continues on IV dexamethasone 6mg daily, zosyn and overnight PD. Minimal documented PO intake today. * Continue Lantus 8 units daily to provide coverage of steroids. NPH 15 units at dinner for PD coverage. No change to Novolog parameters - will stop overnight checks given evening NPH. 11/28: * Monster received 33 units of insulin yesterday (8 Lantus, 10 insulin NPH) * IV dexamethasone 6mg continues, will give a small dose (~0.1 units/kg) of long-acting basal insulin to help cover steroid induced hyperglycemia * Insulin NPH re-initiated yesterday evening around when peritoneal dialysis begins, NPH vs Lantus since duration of action would better cover dialysate induced hyperglycemia. Dose increased from yesterday as BSGs overnight still elevated. * No changes to NovoLog since titrating NPH today. He is finishing up his course of ABX for pneumonia. 11/26: * BSGs 578-557-006-176-168mg/dl the last 24h. Received 13units of bolus insulin yesterday. * Continues on dexamethasone 6mg IV daily, zosyn, and PD overnight. PD dextrose concentration for tonight unclear. * NPH was held yesterday evening per provider d/t decreased PO. Continues w/ decreased PO intake today. Will switch to Lantus 8 units X 1 dose today with lunch to provide basal coverage given decreased PO. No change to Novolog for today. 11/25 * Dexamethasone 6 mg IV continues * BSG wnl at lunch yesterday, but hyperglycemia noted in the evening and overnight, likely 2nd PD bags (6 bags of 4.25% dextrose). BSG back down to goal this AM. * Dialysate changing this evening per nephrology note - plans 6 bags of 2.5% dextrose, which is almost half of the dextrose as compared to yesterday. Will continue NPH given at 1700, but will reduce slightly 2nd significant dextrose reduction in dialysate * Correction factor seems to be working after dextrose load in PD finishes, based on BSG's in goal range x2 the last 2 days after PD. Will therefore leave correction factor as-is. 11/24 * Patient with significant hyperglycemia overnight- possibly d/t increase in dextrose content in PD bags and steroids * Patient was given 20 units of Lantus and started on weight based stress of 3 novolog. Trended down overnight. * Patient currently has diet ordered but minimal intake. Dexamethasone 6 mg daily ordered. * Will trial NPH with dinner to help cover PD bags rather than long acting basal * Continue weight based of 3 NovoLog for now with overnight checks. Caution with IV regular bolus insulin d/t hypokalemia PLAN FOR INPATIENT GLYCEMIC CONTROL: * Basal insulin * Hold * Bolus insulin * NovoLog per scale ACHS or Q6hrs while NPO * Goal Range: Low 110 mg/dL - High 140 mg/dL * Correction Factor: 30 mg/dL/unit * Nutritional / Prandial insulin per carb ratio of 1 unit per 15 grams CHO consumed
--- NOTE | 2024-12-08 17:49 | Hospitalist Progress Note ---
Date of Service December 08, 2024 Assessment & Plan (1) Encephalopathy: Plan 79-year-old male with PMH of PE/A-fib on Coumadin, hypertrophic CM, CAD, PVD, hypotension on midodrine, COPD/RLD, ESRD on PD, esophageal achalasia, cirrhosis, prostate cancer status post surgery, MGUS, chronic anemia [baseline hemoglobin of 10-11], cognitive impairment, inclusion body myositis, past tobacco abuse who was recently admitted for COVID - 19 pneumonia/sp decdron Rx for 3-4 days/discharged to [facility] on room air presents w/ c/o increasing weakness, fall (no head trauma, witnessed fall). Severe sepsis-POA Bilateral pneumonia Acute metabolic encephalopathy: likely 2/2 acute illness iso underlying cognitive impairment. Acute hypoxic respiratory failure COVID-19 infection ARDS --CT chest with interval early bilateral pneumonia Compared to CT chest on 11/12 --ECHO: Mild concentric LVH. Asymmetric left ventricular hypertrophy involving the septum with maximal thickness of 2.1 cm. Outflow tract obstruction not identified. Cavity obliteration at mid ventricle. Left ventricle is hy perdynamic. EF > 70%. Aortic valve sclerosis mild, without significant aortic valve stenosis. --Peritoneal fluid analysis-no organism and wbc --Serology positive for COVID-19 --Blood cultures- negative to date Appreciate pulmonology input Completed zosyn/doxycycline course CRP trended down Completed dexamethasone 10 day treatement Continue to wean oxygen as tolerated PT recommends SNF placement 12/08 Stable overall On 5 L of O2 Hypotension Continue midodrine Suspected dysphagia Aspiration precaution Speech eval and recs noted Troponin elevation: secondary to illness in the setting of chronic kidney dysfunction, history ESRD on PD ESRD : Continue dialysis as per nephrology Got HD catheter placed by Vascular sx yesterday To get HD today 12/08 Nephro on board, likely will have another HD tomorrow Hyperglycemia secondary to diabetes HbA1c 6.7 Continue insulin while hospitalized Monitor BGs H/O PE/A-fib (early TBS) On Coumadin--initially held due to supratherapeutic INR. Got Vit K on 12/02/24 Warfarin resumed. Monitro INR Continue metoprolol, amiodarone. 12/08 INR 1.2 continue coumadin Other chronic medical conditions: Continue withe home meds Hypertrophic cardiomyopathy CAD/ PVD COPD/RLD as per records Cirrhosis on imaging from past admission Prostate cancer S/P surgery Chronic anemia, Hb stable Cognitive impairment, patient mentating well Inclusion body myositis as per records, patient to decide on steroid Rx recommendation from local neurologist following recent outpatient visit Subclinical hypothyroidism , needs repeat thyroid function test in 6 weeks as outpatient Past tobacco abuse. CODE STATUS Full code Admission and Anticipated Discharge Date Admission Date: November 19, 2024 Subjective Follow-up for ESRD, etc. Seen resting in bed comfortable, not in distress On 5 L of O2 via nasal cannula States he feels fine overall Denies shortness of breath, cough, chest pain No other new symptoms today Review of Systems Review of Systems: all noted and negative except for above Physical Exam Physical Exam: General- oriented x 3, not in distress, speaks in sentences with no effort or accessory muscle use Eyes- anicteric Neck- no JVD Lungs- clear breath sounds bilaterally, no rales/wheezes Heart- normal rate, regular rhythm; no murmurs Abdomen- normal bowel sounds, nondistended, soft, nontender Extremities- no pretibial edema, no calf tenderness Neuro- alert, oriented x 3; no gross focal neurologic deficits Skin- warm & dry Results & Data Results & Data Vital Signs (Past 12 Hours) Vital Signs Temp Pulse Pulse Resp BP Pulse Ox O2 Del Method 12/08/24 15:20 78 12/08/24 14:14 12/08/24 10:16 Nasal Cannula 12/08/24 08:12 36.5 C 82 18 117/68 95 Nasal Cannula O2 Flow Rate 12/08/24 15:20 12/08/24 14:14 5 12/08/24 10:16 5 12/08/24 08:12 5 all noted and reviewed including below
[2024-12-09] MEDS: HEPARIN SOD (PORCINE) 1000 UNIT/ML IV ONE (10:08)
--- NOTE | 2024-12-09 11:18 | Dialysis Progress Note ---
Date of Service December 09, 2024 Assessment & Plan Admission and Anticipated Discharge Date Admission Date: November 19, 2024 Subjective Assessment & Plan (1)ESRD---- Plan: Breathing better but still on oxygen NC due to pneumonia/ARDS Second HD with new HD cath.working fine. [facility]HD at [facility]. Once Discharged from [facility] he will be back on PD. K is normal. BP tends to run low and is on Midodrine (2) Accident due to mechanical fall without injury: Plan: Continue PT and then rehab Subjective Seen during dialysis. CVC worked fine. BP is fine so fa but usually drops. Still on oxygen nasal canula. weak and has not done much for 3 week now. Review of Systems Review of Systems: All other systems were reviewed and negative except as noted in HPI Physical Exam Physical Exam: General exam: Appears comfortable, no acute distress HEENT: Pupils are equal and reactive to light Neck: No JVD, neck is supple trachea is midline Respiratory system: Crackles bilaterally. Gastrointestinal: Abdomen is soft, non distended, non tender, bowel sounds are present CVS: Regular rate and rhythm. No murmurs, rubs or gallops Musculoskeletal: No joint or muscle tenderness Extremities: Non tender, no edema, peripheral pulses are present Neuro: Oriented, no tremors, no focal neurological deficits Skin: No rashes Results & Data Vital Signs (Past 12 Hours) Vital Signs Temp Pulse Pulse Resp BP BP Pulse Ox 12/09/24 11:00 82 96/59 L 12/09/24 10:30 82 100/65 12/09/24 10:12 89 99/66 L 12/09/24 10:00 92 H 78/58 L 12/09/24 09:30 78 125/89 12/09/24 09:00 75 136/85 12/09/24 08:53 36.4 C L 80 12/09/24 08:01 36.4 C L 79 19 145/78 H 92 12/09/24 08:00 12/09/24 07:00 76 12/09/24 03:28 36.9 C 83 18 128/73 91 O2 Del Method O2 Flow Rate 12/09/24 11:00 12/09/24 10:30 12/09/24 10:12 12/09/24 10:00 12/09/24 09:30 12/09/24 09:00 12/09/24 08:53 02/20/25 08:01 High Flow Nasal Cannula 3 12/09/24 08:00 Nasal Cannula 3 12/09/24 07:00 12/09/24 03:28 Nasal Cannula 3
[2024-12-09] MEDS: EPOETIN ALFA 10,000 UNITS/ML VIAL IV ONE (11:42)
--- NOTE | 2024-12-09 16:18 | XRay Report ---
EXAM: Radiograph of the Chest 1 View INDICATION: Hypoxia TECHNIQUE: Frontal view of the chest. COMPARISON: 11/29/2024 FINDINGS: Lungs and pleural spaces: Increasing confluent bilateral groundglass and patchy infiltrates relatively sparing the left upper lobe. No pleural effusion or pneumothorax. Heart: Stable cardiac shadow accentuated by technique. Mediastinum: Normal contour. Bones/joints: No fracture, erosion or dislocation. Soft tissues: No abnormality noted. No radiopaque foreign body noted. Vasculature: Stable ectatic aorta. Tubes, lines and devices: Right internal jugular central venous catheter tip in the distal superior vena cava. Upper abdomen: No abnormality noted. IMPRESSION: 1. Increasing confluent bilateral groundglass and patchy infiltrates relatively sparing the left upper lobe. 2. Lines and tubes as above. ACT 112: Negative or not required by law. Electronically signed by Sheila Rodriguez 12-09-2024 4:18 PM
--- NOTE | 2024-12-09 17:34 | Hospitalist Progress Note ---
Date of Service December 09, 2024 delayed entry date of service noted above Assessment & Plan (1) Acute hypoxic respiratory failure: Plan: (1) Encephalopathy: Plan 79-year-old male with PMH of PE/A-fib on Coumadin, hypertrophic CM, CAD, PVD, hypotension on midodrine, COPD/RLD, ESRD on PD, esophageal achalasia, cirrhosis, prostate cancer status post surgery, MGUS, chronic anemia [baseline hemoglobin of 10-11], cognitive impairment, inclusion body myositis, past tobacco abuse who was recently admitted for COVID - 19 pneumonia/sp decdron Rx for 3-4 days/discharged to [facility] on room air presents w/ c/o increasing weakness, fall (no head trauma, witnessed fall). Severe sepsis-POA Bilateral pneumonia Acute metabolic encephalopathy: likely 2/2 acute illness iso underlying cognitive impairment. Acute hypoxic respiratory failure COVID-19 infection ARDS --CT chest with interval early bilateral pneumonia Compared to CT chest on 11/12 --ECHO: Mild concentric LVH. Asymmetric left ventricular hypertrophy involving the septum with maximal thickness of 2.1 cm. Outflow tract obstruction not identified. Cavity obliteration at mid ventricle. Left ventricle is hyperdynamic. EF > 70%. Aortic valve sclerosis mild, without significant aortic valve stenosis. --Peritoneal fluid analysis-no organism and wbc --Serology positive for COVID-19 --Blood cultures- negative to date Appreciate pulmonology input Completed zosyn/doxycycline course CRP trended down Completed dexamethasone 10 day treatement Continue to wean oxygen as tolerated PT recommends SNF placement 12/08 Stable overall On 5 L of O2 12/09 (+) rales repeat CXR ordered: 1. Increasing confluent bilateral groundglass and patchy infiltrates relatively sparing the left upper lobe. 2. Lines and tubes as above. from pulmonary fibrosis sec to COVID? continue to monitor closely Hypotension Continue midodrine Suspected dysphagia Aspiration precaution Speech eval and recs noted Troponin elevation: secondary to illness in the setting of chronic kidney dysfunction, history ESRD on PD ESRD : Continue dialysis as per nephrology Got HD catheter placed by Vascular sx yesterday To get HD today 12/09 Nephro on board, for HD tomorrow Hyperglycemia secondary to diabetes HbA1c 6.7 Continue insulin while hospitalized Monitor BGs H/O PE/A-fib (early TBS) On Coumadin--initially held due to supratherapeutic INR. Got Vit K on 12/02/24 Warfarin resumed. Monitro INR Continue metoprolol, amiodarone. 12/08 INR 1.2 continue coumadin 12/09 1.1 on coumadin Other chronic medical conditions: Continue withe home meds Hypertrophic cardiomyopathy CAD/ PVD COPD/RLD as per records Cirrhosis on imaging from past admission Prostate cancer S/P surgery Chronic anemia, Hb stable Cognitive impairment, patient mentating well Inclusion body myositis as per records, patient to decide on steroid Rx recommendation from local neurologist following recent outpatient visit Subclinical hypothyroidism , needs repeat thyroid function test in 6 weeks as outpatient Past tobacco abuse. CODE STATUS Full code Admission and Anticipated Discharge Date Admission Date: November 19, 2024 Subjective seen for ESRD, etc seen resting in bed, comfortable on O2 supplement states he feels fine overall no chest pain, dyspnea, palpitations, dizziness no cough no fever/chills no other symptoms Review of Systems Review of Systems: all noted and negative except for above Physical Exam Physical Exam: General- oriented x 3, not in distress, speaks in sentences with no effort or accessory muscle use Eyes- anicteric Neck- no JVD Lungs-(+) mild rales BL bases Heart- normal rate, regular rhythm; no murmurs Abdomen- normal bowel sounds, nondistended, soft, nontender Extremities- no pretibial edema, no calf tenderness Neuro- alert, oriented x 3; no gross focal neurologic deficits Skin- warm & dry Results & Data Results & Data Vital Signs (Past 12 Hours) Vital Signs Temp Pulse Pulse Resp BP BP BP 12/09/24 15:41 36.6 C 80 20 119/70 12/09/24 12:05 36.5 C 82 114/62 12/09/24 11:30 86 81/54 L 12/09/24 11:00 82 96/59 L 12/09/24 10:30 82 100/65 12/09/24 10:12 89 99/66 L 12/09/24 10:00 92 H 78/58 L 12/09/24 09:30 78 125/89 12/09/24 09:00 75 136/85 12/09/24 08:53 36.4 C L 80 12/09/24 08:01 36.4 C L 79 19 145/78 H 12/09/24 08:00 12/09/24 07:00 76 Pulse Ox O2 Del Method O2 Flow Rate 12/09/24 15:41 93 Room Air 12/09/24 12:05 12/09/24 11:30 12/09/24 11:00 12/09/24 10:30 12/09/24 10:12 12/09/24 10:00 12/09/24 09:30 12/09/24 09:00 12/09/24 08:53 12/09/24 08:01 92 High Flow Nasal Cannula 3 12/09/24 08:00 Nasal Cannula 3 12/09/24 07:00 all noted and reviewed including below
[2024-12-09 18:56] LABS: INR 1.1 (0.9-1.1); Prothrombin Time 12.3 Seconds (9.0-12.0)
[2024-12-09] MEDS: WARFARIN SOD 2 MG TAB PO ONE (20:27)
[2024-12-10 08:46] LABS: INR 1.2 (0.9-1.1); Prothrombin Time 12.7 Seconds (9.0-12.0)
[2024-12-10] MEDS: HEPARIN SOD (PORCINE) 1000 UNIT/ML IV ONE (09:43)
[2024-12-10] MEDS: HEPARIN SOD (PORCINE) 1000 UNIT/ML IV SCH (09:44)
[2024-12-10] MEDS: ALBUT/IPRATROP 3MG/0.5MG NEB 3 ML VIAL NEB PRN (10:22)
--- NOTE | 2024-12-10 10:54 | Hospitalist Progress Note ---
Date of Service December 10, 2024 Assessment & Plan (1) Acute hypoxic respiratory failure: Plan: (1) Encephalopathy: Plan 79-year-old male with PMH of PE/A-fib on Coumadin, hypertrophic CM, CAD, PVD, hypotension on midodrine, COPD/RLD, ESRD on PD, esophageal achalasia, cirrhosis, prostate cancer status post surgery, MGUS, chronic anemia [baseline hemoglobin of 10-11], cognitive impairment, inclusion body myositis, past tobacco abuse who was recently admitted for COVID - 19 pneumonia/sp decdron Rx for 3-4 days/discharged to [facility] on room air presents w/ c/o increasing weakness, fall (no head trauma, witnessed fall). Severe sepsis-POA Bilateral pneumonia Acute metabolic encephalopathy: likely 2/2 acute illness iso underlying cognitive impairment. Acute hypoxic respiratory failure COVID-19 infection ARDS --CT chest with interval early bilateral pneumonia Compared to CT chest on 11/12 --ECHO: Mild concentric LVH. Asymmetric left ventricular hypertrophy involving the septum with maximal thickness of 2.1 cm. Outflow tract obstruction not identified. Cavity obliteration at mid ventricle. Left ventricle is hyperdynamic. EF > 70%. Aortic valve sclerosis mild, without significant aortic valve stenosis. --Peritoneal fluid analysis-no organism and wbc --Serology positive for COVID-19 --Blood cultures- negative to date Appreciate pulmonology input Completed zosyn/doxycycline course CRP trended down Completed dexamethasone 10 day treatement Continue to wean oxygen as tolerated PT recommends SNF placement 12/08 Stable overall On 5 L of O2 12/09 On 3 L of O2 Chest x-ray: Increasing infiltrates Clinically patient remains stable, asymptomatic With lower O2 requirement Monitor closely 12/10 Patient developed hypoxia, hypotension during hemodialysis Hemodialysis aborted Placed on BiPAP Transferred to ICU Discussed with Dr. Kaiser stat CXR ordered Hypotension Continue midodrine Suspected dysphagia Aspiration precaution Speech eval and recs noted Troponin elevation: secondary to illness in the setting of chronic kidney dysfunction, history ESRD on PD ESRD : Continue dialysis as per nephrology Got HD catheter placed by Vascular sx yesterday To get HD today 12/10 HD aborted Due to hypotension, hypoxia Hyperglycemia secondary to diabetes HbA1c 6.7 Continue insulin while hospitalized Monitor BGs H/O PE/A-fib (early TBS) On Coumadin--initially held due to supratherapeutic INR. Got Vit K on 12/02/24 Warfarin resumed. Monitro INR Continue metoprolol, amiodarone. 12/10 INR 1.2 continue coumadin Other chronic medical conditions: Continue withe home meds Hypertrophic cardiomyopathy CAD/ PVD COPD/RLD as per records Cirrhosis on imaging from past admission Prostate cancer S/P surgery Chronic anemia, Hb stable Cognitive impairment, patient mentating well Inclusion body myositis as per records, patient to decide on steroid Rx recommendation from local neurologist following recent outpatient visit Subclinical hypothyroidism , needs repeat thyroid function test in 6 weeks as outpatient Past tobacco abuse. CODE STATUS Full code Admission and Anticipated Discharge Date Admission Date: November 19, 2024 Subjective Follow-up for sepsis, COVID-19, ESRD, etc. Seen resting in bed, comfortable, not in distress On 6 L of O2 via facemask Speaks in sentences with no effort or tachypnea States he feels fine overall Denies shortness of breath, cough, chest pain No other new symptoms Review of Systems Review of Systems: all noted and negative except for above Physical Exam Physical Exam: General- oriented x 3, not in distress, speaks in sentences with no effort or accessory muscle use Eyes- anicteric Neck- no JVD Lungs- Mild rales at the bases, no wheezing Good air entry bilaterally Heart- normal rate, regular rhythm; no murmurs Abdomen- normal bowel sounds, nondistended, soft, nontender Extremities- no pretibial edema, no calf tenderness Neuro- alert, oriented x 3; no gross focal neurologic deficits Skin- warm & dry Results & Data Results & Data Vital Signs (Past 12 Hours) Vital Signs Temp Pulse Pulse Pulse Resp BP BP 12/10/24 09:30 79 107/70 12/10/24 09:01 83 122/74 12/10/24 08:54 36.4 C L 84 12/10/24 08:02 36.3 C L 82 24 130/76 12/10/24 03:03 36.4 C L 75 16 125/70 12/09/24 23:00 36.8 C 79 20 121/76 Pulse Ox O2 Del Method O2 Flow Rate 12/10/24 09:30 12/10/24 09:01 12/10/24 08:54 12/10/24 08:02 90 Oxymask 6 12/10/24 03:03 94 Oxymask 6 12/09/24 23:00 93 Nasal Cannula 4 all noted and reviewed including below
[2024-12-10] MEDS: EPOETIN ALFA 10,000 UNITS/ML VIAL IV ONE (11:16)
--- NOTE | 2024-12-10 11:21 | Critical Care Consultation ---
Date of Consultation December 10, 2024 Assessment & Plan (1) Acute hypoxic respiratory failure: Reason Critically Ill: Acute hypoxic PLAN: Neuro: Hospital notes indicate cognitive impairment and episode of acute metabolic encephalopathy Resp: Acute hypoxic respiratory failure History COVID-19 pneumonia leading to acute respiratory distress syndrome History pleural effusion right -CT dated November 19 compared to study November 13 of the same year demonstrated no pulmonary embolism, stable elevation of the right hemidiaphragm, multiple bilateral groundglass opacities -CT chest dated November 13 notes fibro atelectatic bands in bilateral lower lobes with minimal right pleural effusions -Reviewed CT chest dated October 18, 2024 of note bilateral trace pleural effusions Despite patient being at his lowest weight and presumptively "dry" patient still has pleural effusions History of pulmonary embolus -Patient end-stage renal disease on dialysis, contrast load would be acceptable to exclude progression or worsening of new pulmonary embolism since the patient has been subtherapeutic Possible left ninth rib fracture CV: History of atrial fibrillation with rapid ventricular response -200 mg amiodarone daily -25 mg metoprolol succinate daily Long-term anticoagulation secondary to A-fib and pulmonary embolisms History of pulmonary embolisms Hypotension -2.5 mg midodrine 3 times daily -Echo obtained November 24 demonstrated LV cavity obliteration at mid ventricle however outflow tract obstruction not identified: Asymmetric left ventricle hypertrophy involving the septum EF greater than 70% -If the patient has low preload state certainly there could be physiologic/pseudo outflow track obstruction secondary to patient's physiologic features -RV not reported in this echocardiogram at risk for pulmonary hypertension secondary to history of pulmonary embolism as well as probable intrinsic lung disease -Suspect patient near dry weight attempting to obtain stat echo to confirm hyperdynamic EF versus possible physiologic outflow obstruction; also for possible pulmonary hypertension Reviewing medical record patient's weight has been as high as 92 kg on October 20, currently 74.1 kg this has been his lowest weight since May 02, 2023 Abnormal EKG -Bifascicular block Fluids/Renal: End-stage renal disease History of prostate cancer ID: Recent COVID-19 viral pneumonia Acute respiratory distress syndrome: Finished 10-day course of steroids History of severe sepsis -Notes indicate completed course of Zosyn and doxycycline No growth in blood cultures or peritoneal dialysis fluid during this hospitalization -Repeat [employer] testing, patient has been hospitalized for several days and at risk for nosocomial infection: Several respiratory viruses are present and local population GI/Nutrition: Bowel regimen consisting of 100 mg docusate twice daily with as needed polyethylene glycol daily -40 mg pantoprazole daily Suspected dysphagia on aspiration precautions Heme: Long-term anticoagulation -Anticoagulation with Coumadin -Patient was therapeutic on November 19 than supratherapeutic for 2 days and has been intermittently subtherapeutic during his hospital course (given vitamin K on December 02): It appears since December 03 -Patient was on heparin infusion from December 04 to , no heparin administration since per pharmacy records -He has been receiving warfarin since December 07 Anemia of end-stage renal disease -Epogen per nephrology -No blood product transfusion that I can visualize in medical record for this visit History of venous thromboembolism -Obtain venous duplex of bilateral lower extremities DVT prophylaxis: SCDs contraindicated until I can evaluate lower extremities for DVT, patient has been undergoing invasive procedures necessitating normal INR MGUS Endocrine: ICU hyperglycemia protocol Diabetes Vascular access: Peripheral IVs -Right internal jugular tunneled dialysis catheter placed December 06 Code Status: Full code -Patient with significant comorbidities if he were to suffer cardiac arrest and be successfully resuscitated he would suffer devastating decline in health status not withstanding his current medical issues -Patient transition to intermittent hemodialysis to facilitate transfer to rehab however he does not appear to be tolerating the hemodynamic burden associated with intermittent hemodialysis -Patient essentially intravascularly depleted, interstitially volume overloaded -Will consult palliative care to best address goals of care; patient may not be able to tolerate physiologic demands of treatment modalities including but not limited to hemodialysis given his physiology intravascular volume depletion, inability to tolerate excess fluid as demonstrated by respiratory insufficiency associated with pleural effusions and hypoxia Disposition: ICU Updated patient's son Dominic via telephone. Encouraged multidisciplinary meeting to clarify objective findings, physiologic implications and goals of care. He specifically requested Dr. Frankel if available regarding concerns that she knows the patient extremely well and has been the patient's primary planer setup operator, we will attempt to accommodate this; however, she is not currently primary provider of the inpatient nephrology service Verbally discussed case with Dr. Meeks and Dr. Frankel via [place] text. Notified case management, nephrology, hospitalist team, palliative care and attempt to establish multidisciplinary meeting to discuss findings and goals of care. (2) Viral pneumonia: (3) ARDS (adult respiratory distress syndrome): (4) Chronic hypotension: Plan I have personally spent 100 minutes of critical care time in the direct management of this patient. This is a life/limb threatening event. This includes time spent evaluating patient, direct bedside care, chart review, placing orders, interpretation of diagnostic studies, discussion with consultants, patient, and/or family members regarding treatment decisions, as well as other required patient management activities. This time is exclusive of all separately billable procedures, and teaching time and separate from and in addition to any other critical care service time. History of Present Illness Reason for Consultation: Acute hypoxic respiratory failure Attending Physician: Mauro Aguirre MD History of Present Illness Patient is a 79-year-old male on hospital day 28 who has a past medical history of end-stage renal disease previously on peritoneal dialysis, prior peritonitis from peritoneal catheter, episodes of sepsis, atrial fibrillation with history of rapid ventricular response on long-term anticoagulation, hypertrophic cardiomyopathy, history of bilateral pulmonary embolisms, who was recently recovering from a COVID-19 viral pneumonia with associated acute respiratory distress syndrome and acute hypoxic respiratory failure. Patient finished a 2- week course of steroids for the acute respiratory distress and viral pneumonia.The overall arcing goal has been to transition from peritoneal dialysis to intermittent dialysis through a permacath to allow the patient to be discharged to rehab and attempt to regain strength. He has attempted to undergo 3 intermittent dialysis treatments, he is not been able to have fluid removed secondary to hemodynamic instabilities; however, he has completed a course of ultrafiltration. Additional history obtained from bedside dialysis staff reports that they were attempting to achieve a more negative fluid balance however this has been difficult. They thought maybe that he is currently euvolemic, they reports his peripheral edema which has been present during the hospital stay has largely resolved Yesterday patient underwent dialysis however they were unable to remove fluid. He tolerated it yesterday while on 3 L nasal cannula. Today he was undergoing dialysis however his oxygen requirement had mildly increased to 6 L. Approximately 1 hour into treatment the patient became more tachypneic and hypoxic requiring BiPAP placement. Since BiPAP and supplemental oxygen administration his oxygenation saturation has improved however he is still tachypneic. Allergies Allergy/AdvReac Type Severity Reaction Status Date / Time No Known Allergies Allergy Verified 11/12/24 22:14 Home Medications Medication Instructions Recorded Confirmed Type amiodarone 200 mg tablet 200 mg PO DAILY 10/16/24 11/19/24 History metoprolol succinate 25 mg 25 mg PO DAILY 10/16/24 11/19/24 History tablet,extended release 24 hr midodrine 2.5 mg tablet 2.5 mg PO AMPM 10/16/24 11/19/24 History warfarin 2 mg tablet 2 mg PO DAILY 10/19/24 11/19/24 History docusate sodium 100 mg capsule 100 mg PO BID #60 caps 10/21/24 11/19/24 Rx polyethylene glycol 3350 17 gram 17 g PO DAILY PRN constipation #30 10/21/24 11/19/24 Rx oral powder packet (Miralax) ea Lactobacillus acidophilus 1 tab PO DAILY 11/12/24 11/19/24 History Renal Multivit W/1mg Or <Fa 1 tab PO DAILY 11/12/24 11/19/24 History acetaminophen 500 mg tablet 500 mg PO Q6H 11/12/24 11/19/24 History cholecalciferol (vitamin D3) 50 50 mcg PO DAILY 11/12/24 11/19/24 History mcg (2,000 unit) capsule (Vitamin D3) gentamicin 0.1 % topical cream 1 applic topical DAILY 11/12/24 11/19/24 History lanolin alcohols-mineral 1 applic topical UD PRN SKIN CARE 11/12/24 11/19/24 History oil-w.petrolatum-ceresin topical cream (Eucerin topical cream) maltodextrin 1 ea PO QAM PRN Constipation 11/12/24 11/19/24 History menthol 0.44 %-zinc oxide 20.6 % 1 applic topical DAILY 11/12/24 11/19/24 History topical ointment (Calmoseptine) metoprolol tartrate 25 mg tablet 25 mg PO DAILY PRN HR > 100 @ REST 11/12/24 11/19/24 History pantoprazole 40 mg tablet,delayed 40 mg PO DAILY 11/12/24 11/19/24 History release doxycycline hyclate 100 mg capsule 100 mg PO BID 6 days #12 caps 11/15/24 11/19/24 Rx Patient History Medical History CAP (community acquired pneumonia) Hypotension ESRD on peritoneal dialysis Renal cyst 3.9 cm cystic lesion-L Paroxysmal A-fib listed in [facility] records CAD (coronary artery disease) PVD (peripheral vascular disease) Dysphagia Anemia Pulmonary nodule MGUS (monoclonal gammopathy of unknown significance) follows with [facility] heme/onc LBBB (left bundle branch block) Hearing deficit Surgical History History of appendectomy History of tooth extraction all teeth removed History of bilateral cataract extraction History of prostatectomy Family History Father Diabetes Other No family history of adverse response to anesthesia Social History Smoking Status: Former smoker Tobacco Type: Cigarettes Second Hand Exposure: No; Do You Dip or Chew Tobacco: No; Hx Alcohol Use: No Hx Substance Use: Yes Preferred Language: [place]an Communication Ability: Effective Restaurant Shift Supervisor Required: No Beliefs That Will Affect Care: None Current Living Situation: Prison Current Living Situation Comment: lives at facility Feels Safe at Home: Yes Assistive Devices: Walker Physical Exam Physical Exam: General: Alert. nontoxic. Skin: Warm, dry, Head: Atraumatic Ears, nose, mouth and throat: airway patent Cardiovascular: Normal peripheral perfusion Respiratory: Tachypnea with a respiratory rate into the 30s, BiPAP mask in place saturating 94% on 50% FiO2 CPAP of 8 delta of 8 Gastrointestinal: Non distended Musculoskeletal: No deformity Results & Data Results & Data Vital Signs (Past 12 Hours) Vital Signs Temp Pulse Pulse Pulse Resp BP BP 12/10/24 09:30 79 107/70 12/10/24 09:01 83 122/74 12/10/24 08:54 36.4 C L 84 12/10/24 08:02 36.3 C L 82 24 130/76 12/10/24 03:03 36.4 C L 75 16 125/70 Pulse Ox O2 Del Method O2 Flow Rate 12/10/24 09:30 12/10/24 09:01 12/10/24 08:54 12/10/24 08:02 90 Oxymask 6 12/10/24 03:03 94 Oxymask 6 Critical Care Results & Data Vital Signs (Past 12 Hours) Vital Signs Temp Pulse Pulse Pulse Resp BP BP 12/10/24 11:19 101 H 43 H 12/10/24 11:18 99 H 42 H 12/10/24 10:22 101 H 18 12/10/24 09:30 79 107/70 12/10/24 09:01 83 122/74 12/10/24 08:54 36.4 C L 84 12/10/24 08:02 36.3 C L 82 24 130/76 12/10/24 03:03 36.4 C L 75 16 125/70 Pulse Ox O2 Del Method O2 Flow Rate FiO2 12/10/24 11:19 94 50 12/10/24 11:18 93 65 12/10/24 10:22 92 Oxymask 8 12/10/24 09:30 12/10/24 09:01 12/10/24 08:54 12/10/24 08:02 90 Oxymask 6 12/10/24 03:03 94 Oxymask 6 Lab & Micro Results (Past 24 Hours) No Data to Display Na 139 mmol/L (136-145) 12/10/24 K 5.0 mmol/L (3.5-5.1) 12/10/24 Cl 102 mmol/L (98-107) 12/10/24 CO2 27 mmol/L (21-32) 12/10/24 Anion Gap 10 (3-11) 12/10/24 BUN 16 mg/dl (6-23) 12/10/24 Creatinine 2.73 mg/dl (0.6-1.4) H 12/10/24 BUN/Creatinine Ratio 5.9 (10-20) L 12/10/24 Glu 113 mg/dl (70-99(Fasting)) H 12/10/24 Ca 8.6 mg/dl (8.6-10.3) 12/10/24 Total Bilirubin 0.6 mg/dl (0.2-1.0) 12/10/24 AST 45 U/L (13-39) H 12/10/24 ALT 9 U/L (7-52) 12/10/24 Alkaline Phosphatase 122 U/L (34-104) H 12/10/24 TP 5.6 gm/dl (6.0-8.3) L 12/10/24 Albumin 2.7 gm/dl (3.4-5.0) L 12/10/24 Globulin 2.9 gm/dl (2.5-4.0) 12/10/24 Albumin/Globulin Ratio 0.9 (0.9-2) 12/10/24 Calcium Level 8.6 mg/dl (8.6-10.3) 12/10/24 12:05 Prothromb Time International Ratio 1.2 (0.9-1.1) H 12/10/24 07 :51 Diagnostic Findings (Past 24 Hours) Chest X-Ray 12/09/24 15:53 EXAM: Radiograph of the Chest 1 View INDICATION: Hypoxia TECHNIQUE: Frontal view of the chest. COMPARISON: 11/29/2024 FINDINGS: Lungs and pleural spaces: Increasing confluent bilateral groundglass and patchy infiltrates relatively sparing the left upper lobe. No pleural effusion or pneumothorax. Heart: Stable cardiac shadow accentuated by technique. Mediastinum: Normal contour. Bones/joints: No fracture, erosion or dislocation. Soft tissues: No abnormality noted. No radiopaque foreign body noted. Vasculature: Stable ectatic aorta. Tubes, lines and devices: Right internal jugular central venous catheter tip in the distal superior vena cava. Upper abdomen: No abnormality noted. IMPRESSION: 1. Increasing confluent bilateral groundglass and patchy infiltrates relatively sparing the left upper lobe. 2. Lines and tubes as above. ACT 112: Negative or not required by law. Electronically signed by Sheila Rodriguez 12-09-2024 4:18 PM I & O Totals 24 Hours 12/09/24 12/10/24 12/11/24 06:59 06:59 06:59 Intake Total 300 / 300 350 / 350 Balance 300 / 300 350 / 350 Cumulative 11/18/24 23:33 thru 12/10/24 08:54 Intake Total 19027.6 Output Total 55066 Balance -2980.4 RT Ventilator Mngmt (Last Documented) Ventilator Ordered Settings Respiratory Rate 43 12/10/24 11:19 Fraction of Inspired Oxygen 50 12/10/24 11:19 Ventilator - PT Measurements Respiratory Rate 43 Coding Level of Care Code 46956 CRITICAL CARE 1ST 30-74M Additional Critical Care Time Additional 30min Critical Care Time: Yes - 00678 x 2 (60 addl min) Diagnoses Acute hypoxic respiratory failure J96.01 Viral pneumonia J12.9 ARDS (adult respiratory distress syndrome) J80 Chronic hypotension I95.89 Additional Codes Critical Care Time - Additional 30min Critical Care Time: Yes - 76822 x 2 (60 addl min) ([id number])
[2024-12-10] MEDS ORDERED: Nursing to Pharmacy Communication SCH ×2 (11:45→18:15)
--- NOTE | 2024-12-10 11:49 | Nephrology Progress Note ---
Date of Service December 10, 2024 Assessment & Plan Admission and Anticipated Discharge Date Admission Date: November 19, 2024 Subjective Assessment & Plan (1)ESRD---- 2. Acute respiratory failure Plan: Patient is very short of breath breathing at 40 per minute requiring non- rebreather mask. Respiratory therapist was called in. Blood pressure is also low and unable to take any ultrafiltration. we will stop dialysis primary service was called in. I updated the situation and told that patient needs to be transferred to ICU given extreme 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 he likely needs to be back on BiPAP or even ventilator. given low blood pressure unable to do any ultrafiltration so it is point less to do dialysis at this stage. however once patient is transferred to ICU and further stabilization we may attempt dialysis either this afternoon or tomorrow most likely with some Levophed support for blood pressure. patient has now been in the hospital for 3 weeks without significant improvement. Based on exam and imaging it appears this is predominantly ARDS related with COVID rather than fluid overload. the initial plan was to be discharged today after dialysis to [facility] where he was going to have rehab + hemodialysis. but given significant decline in his clinical status this will not happen K is normal. BP tends to run low and is on Midodrine Case complexity high multiple coordination involved with primary team as well as nursing staff and respiratory therapist and ICU-- time spent 51 minute Subjective Seen during dialysis. CVC worked fine. Patient is very short of breath breathing at 40 per minute requiring non-rebreather mask. Respiratory therapist was called in. Blood pressure is also low and unable to take any ultrafiltration Review of Systems Review of Systems: All other systems were reviewed and negative except as noted in HPI Physical Exam Physical Exam: General exam: Appears comfortable, no acute distress HEENT: Pupils are equal and reactive to light Neck: No JVD, neck is supple trachea is midline Respiratory system: Crackles bilaterally. Gastrointestinal: Abdomen is soft, non distended, non tender, bowel sounds are present CVS: Regular rate and rhythm. No murmurs, rubs or gallops Musculoskeletal: No joint or muscle tenderness Extremities: Non tender, no edema, peripheral pulses are present Neuro: Oriented, no tremors, no focal neurological deficits Skin: No rashes Results & Data Vital Signs (Past 12 Hours) Vital Signs Temp Pulse Pulse Pulse Resp BP BP 12/10/24 11:39 99 H 45 H 12/10/24 11:25 36.6 C 12/10/24 11:24 98 H 29 H 106/62 12/10/24 11:19 101 H 43 H 12/10/24 11:18 99 H 42 H 12/10/24 10:22 101 H 18 12/10/24 09:30 79 107/70 12/10/24 09:01 83 122/74 12/10/24 08:54 36.4 C L 84 12/10/24 08:02 36.3 C L 82 24 130/76 12/10/24 07:30 12/10/24 03:03 36.4 C L 75 16 125/70 Pulse Ox O2 Del Method O2 Flow Rate FiO2 12/10/24 11:39 90 12/10/24 11:25 12/10/24 11:24 92 BiPAP 65 12/10/24 11:19 94 50 12/10/24 11:18 93 65 12/10/24 10:22 92 Oxymask 8 12/10/24 09:30 12/10/24 09:01 12/10/24 08:54 12/10/24 08:02 90 Oxymask 6 12/10/24 07:30 Oxymask 6 12/10/24 03:03 94 Oxymask 6
--- NOTE | 2024-12-10 12:15 | XRay Report ---
XR chest 1V portable CLINICAL HISTORY: Hypoxia. COMPARISON STUDY: Chest radiograph December 09, 2024. Chest CT November 13, 2024. FINDINGS: Right internal jugular dual lumen catheter is in place. Cardiomediastinal silhouette is sta ble. There is no pneumothorax. No definite pleural effusion. Bilateral airspace opacities have progre ssed. There is an acute appearing mildly displaced anterolateral left ninth rib fracture. IMPRESSION: 1. Progression of bilateral airspace opacities which favor pneumonia. Pulmonary edema could appear si milar although is considered less likely. 2. Acute appearing mildly displaced left ninth rib fracture. No pneumothorax. ACT 112: Negative or not required by law. Electronically signed by: Yoandy Gonzalez M.D. 12/10/2024 12:14 PM
--- NOTE | 2024-12-10 12:35 | Pharmacy Report ---
Pharmacy Glycemic Short Note 2 - Date of Service December 10, 2024 - Glycemic Short BSG Results (Last 24 hours): 12/09/24 12/09/24 12/10/24 17:03 20:08 07:23 POC Glucose 98 97 89 12/10/24 12:18 POC Glucose 101 H OUTPATIENT ANTIDIABETIC REGIMEN: * 6.4% 11/13/24 * N/A ASSESSMENT: 12/10 * BSGs have been stable with no insulin the past 24 hours * Consider sign off, however, patient with acute change in respiratory status this AM and transfer to ICU. Will follow for today given change 12/08 * BSGs yesterday 507-53-77-163 mg/dL with HD- received 1 unit of insulin * Fasting this morning 141 mg/dL. No HD planned for today * Continue to hold basal, continue same novolog parameters- monitor 12/07: * BSGs over the past 24 hours were 596-81-587-111 mg/dL and this morning were 91-103 mg/dL. Patient received 3 units of novolog yesterday. * Patient undergoing first HD session today. * Will monitor BSGs over the next 24 hours but without dextrose for PD, BSGs relatively well controlled with very little insulin. * Patient's PO intake remains minimal. 12/06: * BSGs once again otilio overnight and into this morning with PD but resolved upon completion of PD. BSGs yesterday were [phone] mg/dL and this morning 205-101 mg/dL. * Patient was NPO this morning for placement of a HD catheter and had a diet resumed at lunch time. * There are no plans for PD or HD today. Given today's BSGs post PD and typical trend of being in range outside of PD administration, will hold basal insulin today. Possible plan for HD tomorrow. 12/04: * Patient continues on PD, blood sugars otilio overnight last night, was covered with NovoLog, will change back to a reduced dose of NPH for tonight's PD. * No further Lantus as steroids have been discontinued. * Continue NovoLog parameters. 12/03: * BSGs 701-236-549-114mg/dl the last 24h. Pt did have a low BSG yesterday afternoon, 60mg/dl that required treatment. Received 23 units of basal and 9 units of bolus insulin yesterday. * NPO since midnight last night for HD permacath placement which was unable to be performed due to INR-diet resumed at lunch (although no PO intake documented for ~ 24h). Dexamethasone discontinued. * Will hold basal insulin today given overall downward trend in BSGs and now without steroids on board and decreased PO. Unclear plan for dialysis moving forward (no PD orders placed as of yet, re-attempt at HD cath). Therefore, will plan for overnight checks tonight with Novolog to provide some PD correctional coverage if ordered. Novolog also loosened given discontinuation of steroids. 12/02: * BSGs 920-780-988zh/dL the last 24h. Received 28 units of basal and 15 units of bolus insulin yesterday. * Some PO intake documented yesterday. Day #10 dexamethasone today- will discontinue. Plan for overnight PD. * No changes to insulin today. Continue Lantus 8 units daily + NPH 20 units at dinner. Novolog 08/05 ACHS. 11/29: * BSGs largely within goal the last 24h: [phone]/dl. Received 23 units of basal insulin and 21 units of bolus insulin yesterday. * Continues on IV dexamethasone 6mg daily, zosyn and overnight PD. Minimal documented PO intake today. * Continue Lantus 8 units daily to provide coverage of steroids. NPH 15 units at dinner for PD coverage. No change to Novolog parameters - will stop overnight checks given evening NPH. 11/28: * Monster received 33 units of insulin yesterday (8 Lantus, 10 insulin NPH) * IV dexamethasone 6mg continues, will give a small dose (~0.1 units/kg) of long-acting basal insulin to help cover steroid induced hyperglycemia * Insulin NPH re-initiated yesterday evening around when peritoneal dialysis begins, NPH vs Lantus since duration of action would better cover dialysate induced hyperglycemia. Dose increased from yesterday as BSGs overnight still elevated. * No changes to NovoLog since titrating NPH today. He is finishing up his course of ABX for pneumonia. 11/26: * BSGs [phone]/dl the last 24h. Received 13units of bolus insulin yesterday. * Continues on dexamethasone 6mg IV daily, zosyn, and PD overnight. PD dextrose concentration for tonight unclear. * NPH was held yesterday evening per provider d/t decreased PO. Continues w/ decreased PO intake today. Will switch to Lantus 8 units X 1 dose today with lunch to provide basal coverage given decreased PO. No change to Novolog for today. 2 * Dexamethasone 6 mg IV continues * BSG wnl at lunch yesterday, but hyperglycemia noted in the evening and overnight, likely 2nd PD bags (6 bags of 4.25% dextrose). BSG back down to goal this AM. * Dialysate changing this evening per nephrology note - plans 6 bags of 2.5% dextrose, which is almost half of the dextrose as compared to yesterday. Will continue NPH given at 1700, but will reduce slightly 2nd significant dextrose reduction in dialysate * Correction factor seems to be working after dextrose load in PD finishes, based on BSG's in goal range x2 the last 2 days after PD. Will therefore leave correction factor as-is. 11/24 * Patient with significant hyperglycemia overnight- possibly d/t increase in dextrose content in PD bags and steroids * Patient was given 20 units of Lantus and started on weight based stress of 3 novolog. Trended down overnight. * Patient currently has diet ordered but minimal intake. Dexamethasone 6 mg daily ordered. * Will trial NPH with dinner to help cover PD bags rather than long acting basal * Continue weight based of 3 NovoLog for now with overnight checks. Caution with IV regular bolus insulin d/t hypokalemia PLAN FOR INPATIENT GLYCEMIC CONTROL: * Basal insulin * Hold * Bolus insulin * NovoLog per scale ACHS or Q6hrs while NPO * Goal Range: Low 110 mg/dL - High 140 mg/dL * Correction Factor: 30 mg/dL/unit * Nutritional / Prandial insulin per carb ratio of 1 unit per 15 grams CHO consumed
[2024-12-10 12:43] LABS: Albumin Globulin Ratio 0.9 (0.9-2); Albumin Level 2.7 gm/dl (3.4-5.0); BUN Creatinine Ratio 5.9 (10-20); Bilirubin,Total 0.6 mg/dl (0.2-1.0); Calcium 8.6 mg/dl (8.6-10.3); Creatinine Clr Calc Pharmacy 23.4 ml/min; Globulin 2.9 gm/dl (2.5-4.0); Total Protein 5.6 gm/dl (6.0-8.3)
[2024-12-10 12:50] LABS: Troponin I High Sensitivity 42.6 pg/ml (0-20)
[2024-12-10] MEDS: INSULIN ASPART PER UNIT CHARGE SC SCH ×2 (13:27→20:55)
[2024-12-10 13:39] LABS: Adenovirus PCR Not Detected (NotDetected); Bordetella parapertussis PCR Not Detected (NotDetected); Bordetella pertussis PCR Not Detected (NotDetected); Chlamydia pneumoniae PCR Not Detected (NotDetected); Coronavirus 229E PCR Not Detected (NotDetected); Coronavirus CoV-2 (COVID19)PCR DETECTED (NotDetected); Coronavirus HKU1 PCR Not Detected (NotDetected); Coronavirus NL63 PCR Not Detected (NotDetected); Coronavirus OC43PCR Not Detected (NotDetected); Human Metapneumovirus PCR Not Detected (NotDetected); Influenza A PCR Not Detected (NotDetected); Influenza B PCR Not Detected (NotDetected); Mycoplasma pneumoniae PCR Not Detected (NotDetected); Parainfluenza Virus 1 PCR Not Detected (NotDetected); Parainfluenza Virus 2 PCR Not Detected (NotDetected); Parainfluenza Virus 3 PCR Not Detected (NotDetected); Parainfluenza Virus 4 PCR Not Detected (NotDetected); Respiratory Syncytial VirusPCR Not Detected (NotDetected); Rhinovirus/Enterovirus PCR Not Detected (NotDetected)
[2024-12-10] MEDS: OPTIRAY 320 125ml IV ONE (14:21)
--- NOTE | 2024-12-10 15:09 | CT Scan Report ---
CT angio chest PE protocol CT DOSE: 783.48 mGy.cm HISTORY: PE. Shortness of breath; history of PE TECHNIQUE: Multiple CTA images of the chest were obtained after the intravenous administration of 89 ml Optiray. Coronal and sagittal MIPS were obtained from the axial data set and were submitted for r eview. All measurements were obtained according to NASCET criteria. A dose lowering technique was ut ilized adhering to the principles of ALARA. COMPARISON STUDY: 10/13/2023 FINDINGS: There is no evidence of acute pulmonary embolism. There are multiple bilateral foci of airs pace consolidation involving all lobes of both lungs. There is underlying emphysema. There are trace bilateral pleural effusions. The upper airway is unremarkable. There is no aortic aneurysm. There is extensive coronary artery calcification. There is no pericardia l effusion. IMPRESSION: No evidence of acute pulmonary embolism. Widespread, multifocal airspace opacities consis tent with infectious or inflammatory process. ACT 112: Negative or not required by law. The above report was generated using voice recognition software. It may contain grammatical, syntax o r spelling errors. Electronically signed by: Lakisha Doyle M.D. 12/10/2024 3:07 PM
--- NOTE | 2024-12-10 15:54 | Cardiology Consultation ---
Date of Consultation December 10, 2024 Assessment & Plan (1) Hypertrophic cardiomyopathy: (2) Atrial flutter, paroxysmal: (3) Chronic hypotension: (4) Acute hypoxic respiratory failure: (5) ARDS (adult respiratory distress syndrome): (6) End stage renal disease: (7) Cirrhosis: Plan 79-year-old male with hypertrophic cardiomyopathy currently intolerant to hemodialysis due to chronic hypotension and volume depletion. LV appears underfilled with borderline resting tachycardia. Mildly elevated LVOT gradient per echocardiogram noted. Maintaining sinus rhythm on low-dose amiodarone plus Toprol-XL. Treatment options limited due to resting hypotension. Acute respiratory decompensation during hemodialysis today related to possible multifocal pneumonia versus ARDS. Does not appear overtly volume overloaded. Clinical decline over the past 6-8 months in setting of underlying end-stage renal disease, cirrhosis, and hypertrophic cardiomyopathy with resting hypotension requiring support with midodrine. Goal of therapy to reduce heart rate to allow for improved left ventricular filling. Recommend cautious titration of beta-katerina therapy. Transition Toprol-XL 25 mg daily to metoprolol to tartrate 25 mg twice daily. Continue low-dose amiodarone for rhythm control and chronic anticoagulation with warfarin. Agree with palliative care consultation. All questions answered satisfaction both the patient and his son at bedside during today's evaluation. Thank you for allow me to participate in the care of your patient. I spent a total of 60 minutes on the date of service in preparation, delivery, and documentation of the care provided to this patient, excluding any time spent in the performance of separately billed services. Rick Tan DO, [facility] History of Present Illness Reason for Consultation: LVOT gradient and hemodialysis Requesting Physician: Dr. Houston Kaiser Attending Physician: Mauro Aguirre MD History of Present Illness 79-year-old malePresented to the emergency department 11/18/2024 secondary to a fall. Currently a resident of [facility]. Apparently patient tripped and fell landing on his left side. Recently hospitalized for COVID-19 infection prior to current admission. Difficulty tolerating hemodialysis noted throughout hospitalization with intermittent hypotension. A stat echocardiogram was performed today which again confirmed presence of hypertrophic cardiomyopathy. There is a mild left ventricular outflow tract gradient however the ventricle. Hyperdynamic and underfilled.Progressive decline noted in respiratory insufficiency today requiring BiPAP. CT of the chest with evidence of multifocal airspace opacities consistent with infectious or inflammatory process. Allergies Allergy/AdvReac Type Severity Reaction Status Date / Time No Known Allergies Allergy Verified 11/12/24 22:14 Home Medications Medication Instructions Recorded Confirmed Type amiodarone 200 mg tablet 200 mg PO DAILY 10/16/24 11/19/24 History metoprolol succinate 25 mg 25 mg PO DAILY 10/16/24 11/19/24 History tablet,extended release 24 hr midodrine 2.5 mg tablet 2.5 mg PO AMPM 10/16/24 11/19/24 History warfarin 2 mg tablet 2 mg PO DAILY 10/19/24 11/19/24 History docusate sodium 100 mg capsule 100 mg PO BID #60 caps 10/21/24 11/19/24 Rx polyethylene glycol 3350 17 gram 17 g PO DAILY PRN constipation #30 10/21/24 11/19/24 Rx oral powder packet (Miralax) ea Lactobacillus acidophilus 1 tab PO DAILY 11/12/24 11/19/24 History Renal Multivit W/1mg Or <Fa 1 tab PO DAILY 11/12/24 11/19/24 History acetaminophen 500 mg tablet 500 mg PO Q6H 11/12/24 11/19/24 History cholecalciferol (vitamin D3) 50 50 mcg PO DAILY 11/12/24 11/19/24 History mcg (2,000 unit) capsule (Vitamin D3) gentamicin 0.1 % topical cream 1 applic topical DAILY 11/12/24 11/19/24 History lanolin alcohols-mineral 1 applic topical UD PRN SKIN CARE 11/12/24 11/19/24 History oil-w.petrolatum-ceresin topical cream (Eucerin topical cream) maltodextrin 1 ea PO QAM PRN Constipation 11/12/24 11/19/24 History menthol 0.44 %-zinc oxide 20.6 % 1 applic topical DAILY 11/12/24 11/19/24 History topical ointment (Calmoseptine) metoprolol tartrate 25 mg tablet 25 mg PO DAILY PRN HR > 100 @ REST 11/12/24 11/19/24 History pantoprazole 40 mg tablet,delayed 40 mg PO DAILY 11/12/24 11/19/24 History release doxycycline hyclate 100 mg capsule 100 mg PO BID 6 days #12 caps 11/15/24 11/19/24 Rx Patient History Medical History CAP (community acquired pneumonia) Hypotension ESRD on peritoneal dialysis Renal cyst 3.9 cm cystic lesion-L Paroxysmal A-fib listed in [facility] records CAD (coronary artery disease) PVD (peripheral vascular disease) Dysphagia Anemia Pulmonary nodule MGUS (monoclonal gammopathy of unknown significance) follows with [facility] heme/onc LBBB (left bundle branch block) Hearing deficit Surgical History History of appendectomy History of tooth extraction all teeth removed History of bilateral cataract extraction History of prostatectomy Family History Father Diabetes Other No family history of adverse response to anesthesia Social History Smoking Status: Former smoker Tobacco Type: Cigarettes Second Hand Exposure: No; Do You Dip or Chew Tobacco: No; Hx Alcohol Use: No Hx Substance Use: Yes Preferred Language: Chadian Communication Ability: Effective Intake Assessor Required: No Beliefs That Will Affect Care: None Current Living Situation: Shelter Current Living Situation Comment: lives at facility Feels Safe at Home: Yes Assistive Devices: Walker Review of Systems Review of Systems: All systems reviewed & are unremarkable except as noted in Subjective Physical Exam Constitutional: + ill appearing; no acute distress Respiratory: + tachypneic Auscultation: + rales (B /L); no wheezes Cardiovascular: Rate/Rhythm: regular rate and regular rhythm Heart Sounds: normal S1 and normal S2; no murmur Vessels: radial pulses present; no JVD Extremities: no edema Gastrointestinal (Abdomen): Inspection/Auscultation: normal bowel sounds; abdomen not distended Percussion/Palpation: abdomen soft; abdomen nontender, no guarding and abdomen not rigid Neurologic: CN's II-XI intact bilaterally and moves all extremities; no focal motor deficits Results & Data Vital Signs (Past 12 Hours) Vital Signs Temp Pulse Pulse Pulse Resp BP BP 12/10/24 12:37 12/10/24 11:39 99 H 45 H 12/10/24 11:30 101 H 12/10/24 11:25 36.6 C 12/10/24 11:24 98 H 29 H 106/62 12/10/24 11:19 101 H 43 H 12/10/24 11:18 99 H 42 H 12/10/24 10:48 36.8 C 95 H 12/10/24 10:30 96 H 92/58 L 12/10/24 10:22 101 H 18 12/10/24 10:06 63 102/59 L 12/10/24 10:00 97 H 85/54 L 12/10/24 09:30 79 107/70 12/10/24 09:01 83 122/74 12/10/24 08:54 36.4 C L 84 12/10/24 08:02 36.3 C L 82 24 130/76 12/10/24 07:30 BP Pulse Ox O2 Del Method O2 Flow Rate FiO2 12/10/24 12:37 BiPAP 65 12/10/24 11:39 90 12/10/24 11:30 12/10/24 11:25 12/10/24 11:24 92 BiPAP 65 12/10/24 11:19 94 50 12/10/24 11:18 93 65 12/10/24 10:48 98/61 L 12/10/24 10:30 12/10/24 10:22 92 Oxymask 8 12/10/24 10:06 12/10/24 10:00 12/10/24 09:30 12/10/24 09:01 12/10/24 08:54 12/10/24 08:02 90 Oxymask 6 12/10/24 07:30 Oxymask 6 Laboratory Results Cardiac Enzymes 12/10/24 Range/Units 12:05 AST 45 H (13-39) U/L Troponin I High Sens 42.6 H (0-20) pg/ml Coagulation 12/09/24 12/10/24 Range/Units 17:49 07:51 PT 12.3 H 12.7 H (9.0-12.0) Seconds Comprehensive Metabolic Panel 12/10/24 Range/Units 12:05 Sodium 139 (136-145) mmol/L Potassium 5.0 (3.5-5.1) mmol/L Chloride 102 (98-107) mmol/L Carbon Dioxide 27 (21-32) mmol/L BUN 16 (6-23) mg/dl Creatinine 2.73 H (0.6-1.4) mg/dl Glucose 113 H (70-99(Fasting)) mg/dl Calcium 8.6 (8.6-10.3) mg/dl AST 45 H (13-39) U/L ALT 9 (7-52) U/L Alkaline Phosphatase 122 H (34-104) U/L Total Protein 5.6 L (6.0-8.3) gm/dl Albumin 2.7 L (3.4-5.0) gm/dl Intake and Output 12/10/24 12/10/24 12/10/24 06:59 14:59 22:59 Intake Total 50 / 350 Balance 50 / 350 Intake: Oral 50 / 350 Other: Hemodialysis Ultrafiltration 0 Amount Weight 74.191 kg 74.191 kg Weight Measurement Method Built in Bedscale Built in Bedscale Patient Weight 12/11/24 06:59 Weight 74.191 kg (7) Cirrhosis Ascites presence: with ascites Hepatic cirrhosis type: unspecified hepatic cirrhosis Qualified Code(s): K74.60 - Unspecified cirrhosis of liver; R18.8 - Other ascites
[2024-12-10] MEDS: METOPROLOL TARTRATE 25 MG TAB PO SCH (21:30)
--- NOTE | 2024-12-10 22:22 | Ultrasound Report ---
Exam(s): US VENOUS BILATERAL LOWER EXTREMITIES EXAM: US Duplex Bilateral Lower Extremities Veins CLINICAL HISTORY: Reason for exam: r/o dvt. TECHNIQUE: Real-time duplex ultrasound scan of the bilateral lower extremity veins integrating B-mode two-dimensional vascular structure, Doppler spectral analysis, color flow Doppler imaging and compression. COMPARISON: 10/15/2023 FINDINGS: Right deep veins: Unremarkable. The visualized deep veins of the right lower extremity are compressible with color flow. No visualized thrombus. Right superficial veins: Unremarkable. Left deep veins: Unremarkable. The visualized deep veins of the left lower extremity are compressible with color flow. No visualized thrombus. Left superficial veins: Unremarkable. Soft tissues: No acute findings. IMPRESSION: No DVT within the bilateral lower extremities. Electronically signed by: Elmer Dixon MD 12/10/24 22:21 PM
[2024-12-11 06:06] LABS: INR 1.4 (0.9-1.1); Prothrombin Time 15.1 Seconds (9.0-12.0)
[2024-12-11 06:12] LABS: Basophils # (auto) 0.03 K/uL (0.00-0.20); Basophils % (auto) 0.2 %; Eosinophils # (auto) 0.32 K/uL (0.00-0.50); Eosinophils % (auto) 2.4 %; Hematocrit (blood only) 29.3 % (42.0-52.0); Hemoglobin 9.8 g/dl (14.0-18.0); Immature Granulocytes # (auto) 0.08 K/uL (0.01-0.20); Immature Granulocytes % (auto) 0.6 %; Lymphocytes # (auto) 0.43 K/uL (1.20-3.40); Lymphocytes % (auto) 3.2 %; Mean Corpuscular Hemoglobin 29.7 pg (25.0-34.0); Mean Corpuscular Hgb Conc 33.4 g/dL (32.0-36.0); Mean Corpuscular Volume 88.8 fL (80.0-100.0); Monocytes # (auto) 0.63 K/uL (0.11-0.59); Monocytes % (auto) 4.7 %; Neutrophils % (auto) 88.9 %; Platelet Count 145 K/uL (130-400); RDW Coefficient of Variation 16.3 % (11.5-14.5); White Blood Count 13.49 K/ul (4.8-10.8)
[2024-12-11 06:17] LABS: Calcium 8.6 mg/dl (8.6-10.3); Creatinine Clr Calc Pharmacy 17.2 ml/min; Magnesium 1.7 mg/dl (1.7-2.4); Phosphorus 2.3 mg/dl (2.5-4.9); Potassium 4.8 mmol/L (3.5-5.1)
[2024-12-11] MEDS ORDERED: STAT IV Infusion **Titration per Protocol STA (08:50)
[2024-12-11] MEDS ORDERED: WARFARIN SOD 3 MG TAB PO ONE (09:45)
[2024-12-11] MEDS: EPOETIN ALFA 10,000 UNITS/ML VIAL IV ONE (10:33)
[2024-12-11] MEDS: NOREPINEPHRINE/D5W 4 MG/250 ML PLCT IV SCH (11:46)
--- NOTE | 2024-12-11 12:01 | Critical Care Progress Note ---
Date of Service December 11, 2024 Assessment & Plan (1) Acute hypoxic respiratory failure: Plan: Reason Critically Ill: Acute hypoxic PLAN: Neuro: Probable mild cognitive impairment. No evidence of delirium. Resp: Acute hypoxic respiratory failure History COVID-19 pneumonia leading to acute respiratory distress syndrome -CT chest 12/10/2024 with the focal pulmonary scarring. CV: History of atrial fibrillation with rapid ventricular response -200 mg amiodarone daily - metoprolol dosing per cardiology. Long-term anticoagulation secondary to A-fib and pulmonary embolisms History of pulmonary embolisms Hypotension -2.5 mg midodrine 3 times daily -Echo 12/10/2024 with a hyperdynamic EF. Mild resting LVOT with a gradient of 26 mmHg. Cavity obliteration of mid ventricle. Goal is to enhance diastolic filling time with beta-blockade as able. Abnormal EKG -Bifascicular block Fluids/Renal: End-stage renal disease. Currently on HD today in an effort to remove as much volume as possible. Doubtful that the patient will continue to tolerate HD given his LVOT. Goals of care discussion is recommended with nephrology, patient and family. History of prostate cancer ID: Recent COVID-19 viral pneumonia Acute respiratory distress syndrome: Finished 10-day course of steroids History of severe sepsis -Notes indicate completed course of Zosyn and doxycycline No growth in blood cultures or peritoneal dialysis fluid during this hospitalization -Repeat respiratory viral panel 12/10/2024 continues to be persistently positive for COVID. Otherwise negative. GI/Nutrition: Bowel regimen consisting of 100 mg docusate twice daily with as needed polyethylene glycol daily -40 mg pantoprazole daily Suspected dysphagia. aspiration precautions Heme: Long-term anticoagulation -Anticoagulation with Coumadin -Discussed with pharmacy. Will increase warfarin to 1.5 mg Anemia of end-stage renal disease -Epogen per nephrology History of venous thromboembolism - Ultrasound of lower extremities negative for DVT. DVT prophylaxis: SCDs and warfarin. Endocrine: ICU hyperglycemia protocol Diabetes Vascular access: Peripheral IVs -Right internal jugular tunneled dialysis catheter placed December 06 Code Status: Full code - Recommend goals of care discussion with palliative care medicine and nephrology. Disposition: PCU once hemodialysis is completed. (2) Viral pneumonia: (3) ARDS (adult respiratory distress syndrome): (4) Chronic hypotension: (5) Pulmonary scarring: (6) Hypertrophic cardiomyopathy: Admission and Anticipated Discharge Date Admission Date: November 19, 2024 Subjective Patient without any complaints this morning. He is currently on hemodialysis. He has had issues in the past with hemodialysis resulting in hypotension. Will monitor hemodynamics closely while being dialyzed. Currently denies any dizziness, chest pain, shortness of breath or abdominal complaints. Review of Systems Review of Systems: All systems reviewed & are unremarkable except as noted in HPI & below Physical Exam Physical Exam: Constitutional: Patient appears to be of their stated age. Patient is in no apparent distress. Patient is well-developed. Eyes: Pupils are equal round and reactive to light. Conjunctivae are normal. Anicteric sclera. Ears nose, mouth and throat: Mallampati class 2. Normal posterior oropharynx. Uvula is midline. Neck: Trachea is midline. Visual inspection is normal. Respiratory: Mild tachypnea. Crackles noted greater on the left and on the right. Mildly prolonged phase of exhalation. No wheezes. Cardiovascular: Regular rate and rhythm. No murmurs. No edema. Gastrointestinal: Normal bowel sounds, soft, nontender and nondistended. No hepatosplenomegaly noted. Musculoskeletal: No cyanosis. Patient is able to move all extremities. Strength is 5 out of 5 in the upper and lower extremities. Skin: No rashes, warm dry and intact. Neurologic: No obvious focal neurological deficits seen. Hard of hearing. Psychiatric: Alert and oriented x3 with a euthymic affect. Results & Data Results & Data Vital Signs (Past 12 Hours) Vital Signs Temp Pulse Pulse Pulse Resp BP BP 12/11/24 11:48 12/11/24 11:45 76 111/68 12/11/24 11:30 78 67/42 L 12/11/24 11:22 12/11/24 11:00 37.0 C 12/11/24 10:30 75 111/64 12/11/24 10:18 77 24 12/11/24 10:15 76 106/64 12/11/24 10:15 106/64 12/11/24 10:00 76 112/67 12/11/24 09:57 78 22 12/11/24 09:45 118/71 12/11/24 09:45 118/71 12/11/24 09:45 118/71 12/11/24 09:45 118/71 12/11/24 09:39 80 24 12/11/24 09:30 77 23 12/11/24 09:30 115/67 12/11/24 09:30 77 115/67 12/11/24 09:15 121/67 12/11/24 09:15 36.9 C 78 77 12/11/24 09:03 77 22 12/11/24 09:00 76 22 12/11/24 08:27 74 24 12/11/24 08:00 70 12/11/24 08:00 12/11/24 07:30 37.1 C 12/11/24 07:28 125/72 12/11/24 07:28 125/72 12/11/24 07:28 125/72 12/11/24 07:28 125/72 12/11/24 07:21 71 22 12/11/24 07:18 71 24 12/11/24 07:15 12/11/24 07:00 37.3 C 74 22 125/72 12/11/24 07:00 12/11/24 06:36 72 22 12/11/24 06:30 143/79 H 12/11/24 06:12 70 31 H 12/11/24 05:05 70 31 H 12/11/24 04:29 72 36 H 12/11/24 04:29 123/66 12/11/24 04:02 72 19 12/11/24 03:29 119/69 12/11/24 03:26 72 18 12/11/24 03:02 71 26 H 12/11/24 02:26 71 24 12/11/24 01:29 126/74 12/11/24 01:12 70 27 H 12/11/24 01:09 70 29 H 12/11/24 00:29 125/69 12/11/24 00:29 125/69 12/11/24 00:27 70 24 12/11/24 00:00 70 12/11/24 00:00 70 25 H Pulse Ox O2 Del Method O2 Flow Rate 12/11/24 11:48 84 L Nasal Cannula 4 12/11/24 11:45 12/11/24 11:30 12/11/24 11:22 86 L Nasal Cannula 4 12/11/24 11:00 12/11/24 10:30 12/11/24 10:18 89 L 12/11/24 10:15 12/11/24 10:15 12/11/24 10:00 12/11/24 09:57 88 L 12/11/24 09:45 12/11/24 09:45 12/11/24 09:45 12/11/24 09:45 12/11/24 09:39 94 12/11/24 09:30 91 12/11/24 09:30 12/11/24 09:30 12/11/24 09:15 12/11/24 09:15 12/11/24 09:03 91 12/11/24 09:00 92 12/11/24 08:27 91 12/11/24 08:00 12/11/24 08:00 Nasal Cannula 4 12/11/24 07:30 12/11/24 07:28 12/11/24 07:28 12/11/24 07:28 12/11/24 07:28 12/11/24 07:21 92 12/11/24 07:18 93 12/11/24 07:15 96 Nasal Cannula 3 12/11/24 07:00 88 L Nasal Cannula 12/11/24 07:00 94 Oxymask 6 12/11/24 06:36 91 12/11/24 06:30 12/11/24 06:12 93 12/11/24 05:05 92 12/11/24 04:29 91 12/11/24 04:29 12/11/24 04:02 91 12/11/24 03:29 12/11/24 03:26 91 12/11/24 03:02 93 12/11/24 02:26 91 12/11/24 01:29 12/11/24 01:12 90 12/11/24 01:09 90 12/11/24 00:29 12/11/24 00:29 12/11/24 00:27 91 12/11/24 00:00 12/11/24 00:00 92 Coding Level of Care Code 89578 SUB INP/OBS CARE 2/35MIN Diagnoses Acute hypoxic respiratory failure J96.01 Viral pneumonia J12.9 ARDS (adult respiratory distress syndrome) J80 Chronic hypotension I95.89 Pulmonary scarring J98.4 Hypertrophic cardiomyopathy I42.2
[2024-12-11] MEDS: WARFARIN SOD 0.5 MG TAB PO ONE (13:05)
[2024-12-11] MEDS: WARFARIN SOD 1 MG TAB PO ONE (13:06)
--- NOTE | 2024-12-11 14:14 | Nephrology Progress Note ---
Date of Service December 11, 2024 Assessment & Plan Admission and Anticipated Discharge Date Admission Date: November 19, 2024 Subjective Assessment & Plan (1)ESRD---- 2. Acute respiratory failure Plan: has ESRD on Dialysis. Had dialysis earlier today and BP dropped and still has Hypoxia and needing high o2--now 10 liters. Reviewed Cards and ICU note both saying there is no fluid overload but resp failure from Resp cause/ARDS/Pneumonia. Also has LVOT obsruction which makes fluid removal with dialysis harder. Somehow we did manage to do dialysis. next Dialysis will be on Friday. NO fluid overload that we can take with Dialysis. No electrolyte issues. Since taking fluid with dialysis has made no difference---Now still hypoxic. he is nowhere close to be discharged to rehab. Subjective He Dialysis earlier today. CVC worked fine. BP did drop but total UF of 1500 ml was done. Less SOB than yesterday but still very hypoxic. on NC 10 liters now Review of Systems Review of Systems: All other systems were reviewed and negative except as noted in HPI Physical Exam Physical Exam: General exam: Appears Sick. Mild resp distress HEENT: Pupils are equal and reactive to light Neck: No JVD, neck is supple trachea is midline Respiratory system: Crackles bilaterally. Gastrointestinal: Abdomen is soft, non distended, non tender, bowel sounds are present CVS: Regular rate and rhythm. No murmurs, rubs or gallops Musculoskeletal: No joint or muscle tenderness Extremities: Non tender, no edema, peripheral pulses are present Neuro: Oriented, no tremors, no focal neurological deficits Skin: No rashes Results & Data Vital Signs (Past 12 Hours) Vital Signs Temp Pulse Pulse Pulse Resp BP BP 12/11/24 12:45 93/61 L 12/11/24 12:45 93/61 L 12/11/24 12:45 76 24 12/11/24 12:41 90/57 L 12/11/24 12:41 90/57 L 12/11/24 12:41 77 90/57 L 12/11/24 12:39 79 22 12/11/24 12:30 84/57 L 12/11/24 12:30 75 84/57 L 12/11/24 12:27 76 24 12/11/24 12:15 94/61 L 12/11/24 12:15 94/61 L 12/11/24 12:15 78 24 02/22/25 12:00 103/65 12/11/24 12:00 103/65 12/11/24 12:00 76 103/95 12/11/24 11:51 75 24 12/11/24 11:48 12/11/24 11:45 106/67 12/11/24 11:45 76 106/67 12/11/24 11:39 77 22 12/11/24 11:37 77/51 L 12/11/24 11:37 77/51 L 12/11/24 11:37 77/51 L 12/11/24 11:37 77/51 L 12/11/24 11:34 67/44 L 12/11/24 11:30 78 67/42 L 12/11/24 11:22 12/11/24 11:21 76 21 12/11/24 11:15 107/67 12/11/24 11:15 107/67 12/11/24 11:15 107/67 12/11/24 11:06 76 24 12/11/24 11:00 76 24 12/11/24 11:00 111/68 12/11/24 11:00 111/68 12/11/24 11:00 37.0 C 12/11/24 10:45 101/61 12/11/24 10:45 76 22 12/11/24 10:33 76 22 12/11/24 10:30 111/64 12/11/24 10:30 111/64 12/11/24 10:30 75 111/64 12/11/24 10:24 76 22 12/11/24 10:18 77 24 12/11/24 10:15 76 106/64 12/11/24 10:15 106/64 12/11/24 10:00 76 112/67 12/11/24 09:57 78 22 12/11/24 09:45 118/71 12/11/24 09:45 118/71 12/11/24 09:45 118/71 12/11/24 09:45 118/71 12/11/24 09:39 80 24 12/11/24 09:30 77 23 12/11/24 09:30 115/67 12/11/24 09:30 77 115/67 12/11/24 09:15 121/67 12/11/24 09:15 36.9 C 78 77 12/11/24 09:03 77 22 12/11/24 09:00 76 22 12/11/24 08:27 74 24 12/11/24 08:00 70 12/11/24 08:00 12/11/24 07:30 37.1 C 12/11/24 07:28 125/72 12/11/24 07:28 125/72 12/11/24 07:28 125/72 12/11/24 07:28 125/72 12/11/24 07:21 71 22 12/11/24 07:18 71 24 12/11/24 07:15 12/11/24 07:00 37.3 C 74 22 125/72 12/11/24 07:00 12/11/24 06:36 72 22 12/11/24 06:30 143/79 H 12/11/24 06:12 70 31 H 12/11/24 05:05 70 31 H 12/11/24 04:29 72 36 H 12/11/24 04:29 123/66 12/11/24 04:02 72 19 12/11/24 03:29 119/69 12/11/24 03:26 72 18 12/11/24 03:02 71 26 H 12/11/24 02:26 71 24 Pulse Ox O2 Del Method O2 Flow Rate 12/11/24 12:45 12/11/24 12:45 12/11/24 12:45 90 12/11/24 12:41 12/11/24 12:41 12/11/24 12:41 12/11/24 12:39 90 12/11/24 12:30 12/11/24 12:30 12/11/24 12:27 92 12/11/24 12:15 12/11/24 12:15 12/11/24 12:15 92 12/11/24 12:00 12/11/24 12:00 12/11/24 12:00 12/11/24 11:51 94 12/11/24 11:48 84 L Nasal Cannula 4 12/11/24 11:45 12/11/24 11:45 12/11/24 11:39 88 L 12/11/24 11:37 12/11/24 11:37 12/11/24 11:37 12/11/24 11:37 12/11/24 11:34 12/11/24 11:30 12/11/24 11:22 86 L Nasal Cannula 4 12/11/24 11:21 91 12/11/24 11:15 12/11/24 11:15 12/11/24 11:15 12/11/24 11:06 77 L 12/11/24 11:00 72 L 12/11/24 11:00 12/11/24 11:00 12/11/24 11:00 12/11/24 10:45 12/11/24 10:45 89 L 12/11/24 10:33 91 12/11/24 10:30 12/11/24 10:30 12/11/24 10:30 12/11/24 10:24 90 12/11/24 10:18 89 L 12/11/24 10:15 12/11/24 10:15 12/11/24 10:00 12/11/24 09:57 88 L 12/11/24 09:45 12/11/24 09:45 12/11/24 09:45 12/11/24 09:45 12/11/24 09:39 94 12/11/24 09:30 91 12/11/24 09:30 12/11/24 09:30 12/11/24 09:15 12/11/24 09:15 12/11/24 09:03 91 12/11/24 09:00 92 12/11/24 08:27 91 12/11/24 08:00 12/11/24 08:00 Nasal Cannula 4 12/11/24 07:30 12/11/24 07:28 12/11/24 07:28 12/11/24 07:28 12/11/24 07:28 12/11/24 07:21 92 12/11/24 07:18 93 12/11/24 07:15 96 Nasal Cannula 3 12/11/24 07:00 88 L Nasal Cannula 12/11/24 07:00 94 Oxymask 6 12/11/24 06:36 91 12/11/24 06:30 12/11/24 06:12 93 12/11/24 05:05 92 12/11/24 04:29 91 12/11/24 04:29 12/11/24 04:02 91 12/11/24 03:29 12/11/24 03:26 91 12/11/24 03:02 93 12/11/24 02:26 91
--- NOTE | 2024-12-11 15:11 | XRay Report ---
INDICATION: Shortness of breath TECHNIQUE: Frontal radiograph of the chest. COMPARISON: Radiograph from 2 days ago FINDINGS: Cardiomegaly. Low inspiratory depth. Multifocal interstitial opacities appear unchanged. No pneumothorax. Small pleural effusions. No acute fracture. Right-sided dialysis catheter again noted. IMPRESSION: No significant interval change allowing for differences in technique. Electronically signed by Charles Bailey 12-11-2024 3:10 PM
--- NOTE | 2024-12-11 15:48 | Hospitalist Progress Note ---
Date of Service December 11, 2024 Assessment & Plan (1) Acute hypoxic respiratory failure: Plan: (1) Encephalopathy: Plan 79-year-old male with PMH of PE/A-fib on Coumadin, hypertrophic CM, CAD, PVD, hypotension on midodrine, COPD/RLD, ESRD on PD, esophageal achalasia, cirrhosis, prostate cancer status post surgery, MGUS, chronic anemia [baseline hemoglobin of 10-11], cognitive impairment, inclusion body myositis, past tobacco abuse who was recently admitted for COVID - 19 pneumonia/sp decdron Rx for 3-4 days/discharged to [facility] on room air presents w/ c/o increasing weakness, fall (no head trauma, witnessed fall). Severe sepsis-POA Bilateral pneumonia Acute metabolic encephalopathy: likely 2/2 acute illness iso underlying cognitive impairment. Acute hypoxic respiratory failure COVID-19 infection ARDS --CT chest with interval early bilateral pneumonia Compared to CT chest on 11/12 --ECHO: Mild concentric LVH. Asymmetric left ventricular hypertrophy involving the septum with maximal thickness of 2.1 cm. Outflow tract obstruction not identified. Cavity obliteration at mid ventricle. Left ventricle is hyperdynamic. EF > 70%. Aortic valve sclerosis mild, without significant aortic valve stenosis. --Peritoneal fluid analysis-no organism and wbc --Serology positive for COVID-19 --Blood cultures- negative to date Appreciate pulmonology input Completed zosyn/doxycycline course CRP trended down Completed dexamethasone 10 day treatement Continue to wean oxygen as tolerated PT recommends SNF placement 12/08 Stable overall On 5 L of O2 12/09 On 3 L of O2 Chest x-ray: Increasing infiltrates Clinically patient remains stable, asymptomatic With lower O2 requirement Monitor closely 12/10 Patient developed hypoxia, hypotension during hemodialysis Hemodialysis aborted Placed on BiPAP Transferred to ICU Discussed with Dr. Kaiser stat CXR ordered 12/11 On 6 L of O2, will try to wean off oxygen today Plan for HD today next Hypotension Continue midodrine Suspected dysphagia Aspiration precaution Speech eval and recs noted Troponin elevation: secondary to illness in the setting of chronic kidney dysfunction, history ESRD on PD ESRD : Continue dialysis as per nephrology Got HD catheter placed by Vascular sx yesterday To get HD today 12/10 HD aborted Due to hypotension, hypoxia 12/11 For HD today Hyperglycemia secondary to diabetes HbA1c 6.7 Continue insulin while hospitalized Monitor BGs H/O PE/A-fib (early TBS) On Coumadin--initially held due to supratherapeutic INR. Got Vit K on 12/02/24 Warfarin resumed. Monitro INR Continue metoprolol, amiodarone. 12/10 INR 1.2 continue coumadin 12/11 INR 1.4 Continue Coumadin Other chronic medical conditions: Continue withe home meds Hypertrophic cardiomyopathy CAD/ PVD COPD/RLD as per records Cirrhosis on imaging from past admission Prostate cancer S/P surgery Chronic anemia, Hb stable Cognitive impairment, patient mentating well Inclusion body myositis as per records, patient to decide on steroid Rx recommendation from local neurologist following recent outpatient visit Subclinical hypothyroidism , needs repeat thyroid function test in 6 weeks as outpatient Past tobacco abuse. CODE STATUS Full code Admission and Anticipated Discharge Date Admission Date: November 19, 2024 Subjective ff up for ESRD, etc seen resting in bed, comfortable on 6L o2 supplement states he feels fine overall denies shortness of breath, palpitations, dizziness, chest pain no nausea/vomiting, abdominal pain Review of Systems Review of Systems: all noted and negative except for above Physical Exam Physical Exam: General- oriented x 3, not in distress, speaks in sentences with no effort or accessory muscle use Eyes- anicteric Neck- no JVD Lungs- Mild crackles, no wheezing Heart- normal rate, regular rhythm; no murmurs Abdomen- normal bowel sounds, nondistended, soft,No tenderness Extremities- no pretibial edema, no calf tenderness Neuro- alert, oriented x 3; no gross focal neurologic deficits Skin- warm & dry Results & Data Results & Data Vital Signs (Past 12 Hours) Vital Signs Temp Pulse Pulse Pulse Resp BP BP 12/11/24 14:15 12/11/24 14:15 11112/11/24 14:15 12/11/24 14:09 85 26 H 12/11/24 14:05 88 34 H 12/11/24 14:03 86 24 12/11/24 14:00 12/11/24 14:00 12/11/24 13:57 88 17 12/11/24 13:49 102/65 12/11/24 13:49 102/65 12/11/24 13:49 102/65 12/11/24 13:45 87 24 12/11/24 13:33 83 24 12/11/24 13:30 109/69 12/11/24 13:24 82 24 12/11/24 13:10 37.0 C 76 77 108/65 12/11/24 13:06 79 22 12/11/24 13:00 108/65 12/11/24 13:00 108/65 12/11/24 13:00 108/65 12/11/24 12:45 93/61 L 12/11/24 12:45 93/61 L 12/11/24 12:45 93/61 L 12/11/24 12:45 76 24 12/11/24 12:41 90/57 L 12/11/24 12:41 90/57 L 12/11/24 12:41 77 90/57 L 12/11/24 12:39 79 22 12/11/24 12:30 84/57 L 12/11/24 12:30 75 84/57 L 12/11/24 12:27 76 24 12/11/24 12:15 94/61 L 12/11/24 12:15 94/61 L 12/11/24 12:15 78 24 12/11/24 12:00 103/65 12/11/24 12:00 103/65 12/11/24 12:00 76 103/95 12/11/24 11:51 75 24 12/11/24 11:48 12/11/24 11:45 106/67 12/11/24 11:45 76 106/67 12/11/24 11:39 77 22 12/11/24 11:37 77/51 L 12/11/24 11:37 77/51 L 12/11/24 11:37 77/51 L 12/11/24 11:37 77/51 L 12/11/24 11:34 67/44 L 12/11/24 11:30 78 67/42 L 12/11/24 11:22 12/11/24 11:21 76 21 12/11/24 11:15 107/67 12/11/24 11:15 107/67 12/11/24 11:15 107/67 12/11/24 11:06 76 24 12/11/24 11:00 76 24 12/11/24 11:00 111/68 12/11/24 11:00 111/68 12/11/24 11:00 37.0 C 12/11/24 10:45 101/61 12/11/24 10:45 76 22 12/11/24 10:33 76 22 12/11/24 10:30 111/64 12/11/24 10:30 111/64 12/11/24 10:30 75 111/64 12/11/24 10:24 76 22 12/11/24 10:18 77 24 12/11/24 10:15 76 106/64 12/11/24 10:15 106/64 12/11/24 10:00 76 112/67 12/11/24 09:57 78 22 12/11/24 09:45 118/71 12/11/24 09:45 118/71 12/11/24 09:45 118/71 12/11/24 09:45 118/71 12/11/24 09:39 80 24 12/11/24 09:30 77 23 12/11/24 09:30 115/67 12/11/24 09:30 77 115/67 12/11/24 09:15 121/67 12/11/24 09:15 36.9 C 78 77 12/11/24 09:03 77 22 12/11/24 09:00 76 22 12/11/24 08:27 74 24 12/11/24 08:00 70 12/11/24 08:00 12/11/24 07:30 37.1 C 12/11/24 07:28 125/72 12/11/24 07:28 125/72 12/11/24 07:28 125/72 12/11/24 07:28 125/72 12/11/24 07:21 71 22 12/11/24 07:18 71 24 12/11/24 07:15 12/11/24 07:00 37.3 C 74 22 125/72 12/11/24 07:00 12/11/24 06:36 72 22 12/11/24 06:30 143/79 H 12/11/24 06:12 70 31 H 12/11/24 05:05 70 31 H 12/11/24 04:29 72 36 H 12/11/24 04:29 123/66 12/11/24 04:02 72 19 Pulse Ox O2 Del Method O2 Flow Rate FiO2 12/11/24 14:15 96 12/11/24 14:15 12/11/24 14:15 12/11/24 14:09 83 L 12/11/24 14:05 94 85 12/11/24 14:03 12/11/24 14:00 12/11/24 14:00 12/11/24 13:57 86 L 12/11/24 13:49 12/11/24 13:49 12/11/24 13:49 12/11/24 13:45 83 L 12/11/24 13:33 84 L 12/11/24 13:30 12/11/24 13:24 90 12/11/24 13:10 12/11/24 13:06 92 12/11/24 13:00 12/11/24 13:00 12/11/24 13:00 12/11/24 12:45 12/11/24 12:45 12/11/24 12:45 12/11/24 12:45 90 12/11/24 12:41 12/11/24 12:41 12/11/24 12:41 12/11/24 12:39 90 12/11/24 12:30 12/11/24 12:30 12/11/24 12:27 92 12/11/24 12:15 12/11/24 12:15 12/11/24 12:15 92 12/11/24 12:00 12/11/24 12:00 12/11/24 12:00 12/11/24 11:51 94 12/11/24 11:48 84 L Nasal Cannula 4 12/11/24 11:45 12/11/24 11:45 12/11/24 11:39 88 L 12/11/24 11:37 12/11/24 11:37 12/11/24 11:37 12/11/24 11:37 12/11/24 11:34 12/11/24 11:30 12/11/24 11:22 86 L Nasal Cannula 4 12/11/24 11:21 91 12/11/24 11:15 12/11/24 11:15 12/11/24 11:15 12/11/24 11:06 77 L 12/11/24 11:00 72 L 12/11/24 11:00 12/11/24 11:00 12/11/24 11:00 12/11/24 10:45 12/11/24 10:45 89 L 12/11/24 10:33 91 12/11/24 10:30 12/11/24 10:30 12/11/24 10:30 12/11/24 10:24 90 12/11/24 10:18 89 L 12/11/24 10:15 12/11/24 10:15 12/11/24 10:00 12/11/24 09:57 88 L 12/11/24 09:45 12/11/24 09:45 12/11/24 09:45 12/11/24 09:45 12/11/24 09:39 94 12/11/24 09:30 91 12/11/24 09:30 12/11/24 09:30 12/11/24 09:15 12/11/24 09:15 12/11/24 09:03 91 12/11/24 09:00 92 12/11/24 08:27 91 12/11/24 08:00 12/11/24 08:00 Nasal Cannula 4 12/11/24 07:30 12/11/24 07:28 12/11/24 07:28 12/11/24 07:28 12/11/24 07:28 12/11/24 07:21 92 12/11/24 07:18 93 12/11/24 07:15 96 Nasal Cannula 3 12/11/24 07:00 88 L Nasal Cannula 12/11/24 07:00 94 Oxymask 6 12/11/24 06:36 91 12/11/24 06:30 12/11/24 06:12 93 12/11/24 05:05 92 12/11/24 04:29 91 12/11/24 04:29 12/11/24 04:02 91
[2024-12-11] MEDS: LANTUS PER UNIT CHARGE SC SCH (20:41)
[2024-12-12 05:22] LABS: Basophils # (auto) 0.03 K/uL (0.00-0.20); Basophils % (auto) 0.3 %; Eosinophils # (auto) 0.41 K/uL (0.00-0.50); Eosinophils % (auto) 3.5 %; Hematocrit (blood only) 30.3 % (42.0-52.0); Hemoglobin 9.9 g/dl (14.0-18.0); Immature Granulocytes % (auto) 0.9 %; Lymphocytes # (auto) 0.67 K/uL (1.20-3.40); Lymphocytes % (auto) 5.7 %; Mean Corpuscular Hemoglobin 29.6 pg (25.0-34.0); Mean Corpuscular Hgb Conc 32.7 g/dL (32.0-36.0); Mean Corpuscular Volume 90.7 fL (80.0-100.0); Mean Platelet Volume 11.4 fL (9.4-12.4); Monocytes # (auto) 0.69 K/uL (0.11-0.59); Monocytes % (auto) 5.9 %; Neutrophils # (auto) 9.84 K/uL (1.40-6.50); Neutrophils % (auto) 83.7 %; Nucleated RBC # (auto) 0.02 K/uL (0.00-0.12); Nucleated RBC % (auto) 0.2 %; Platelet Count 136 K/uL (130-400); RDW Coefficient of Variation 16.8 % (11.5-14.5); Red Blood Count 3.34 M/uL (4.70-6.10); White Blood Count 11.74 K/ul (4.8-10.8)
[2024-12-12 05:32] LABS: BUN Creatinine Ratio 5.6 (10-20); Calcium 8.7 mg/dl (8.6-10.3); Creatinine Clr Calc Pharmacy 22.9 ml/min; Magnesium 1.9 mg/dl (1.7-2.4); Phosphorus 2.1 mg/dl (2.5-4.9); Potassium 5.1 mmol/L (3.5-5.1)
[2024-12-12 05:39] LABS: INR 1.3 (0.9-1.1); Prothrombin Time 13.9 Seconds (9.0-12.0)
[2024-12-12] MEDS: WARFARIN SOD 1 MG TAB PO ONE (09:52)
--- NOTE | 2024-12-12 09:56 | Critical Care Progress Note ---
Date of Service December 12, 2024 Assessment & Plan (1) Acute hypoxic respiratory failure: Plan: Reason Critically Ill: Requiring use of intravenous vasoactive's to undergo intermittent hemodialysis PLAN: Neuro: Mild cognitive impairment. No evidence of delirium. - During my evaluation patient does appeared to have full capacity, patient does not appear to be understanding limitations of requiring vasoactive intravenous medication for dialysis to be successful preclude him from being discharged Resp: Acute hypoxic respiratory failure History COVID-19 pneumonia leading to acute respiratory distress syndrome -CT chest 12/10/2024 with the focal pulmonary scarring. -I believe the patient has entered the fibroproliferative stage of acute respiratory distress syndrome, I am doubtful the patient's oxygen requirement will significantly decrease, certainly oxygen requirement will increase with any amount of activity including that of activity of daily living CV: History of atrial fibrillation with rapid ventricular response -200 mg amiodarone daily - metoprolol dosing per cardiology. Long-term anticoagulation secondary to A-fib and pulmonary embolisms -Warfarin had been reversed with vitamin K History of pulmonary embolisms Hypotension -2.5 mg midodrine 3 times daily -Echo 12/10/2024 with a hyperdynamic EF. Mild resting LVOT with a gradient of 26 mmHg. Cavity obliteration of mid ventricle. Goal is to enhance diastolic filling time with beta-blockade as able. Abnormal EKG -Bifascicular block Fluids/Renal: End-stage renal disease. Plan for repeat dialysis Friday, if patient cannot tolerate intermittent HD off of vasoactive medication it would preclude intermittent hemodialysis from being performed anywhere outside of a critical care setting. In my opinion the unique physiologic parameters of this patient are not reversible. Given previous discussion with family and patient, long- term intermittent hemodialysis in critical care setting did not seem to align with long-term goals History of prostate cancer ID: Recent COVID-19 viral pneumonia Acute respiratory distress syndrome: Finished 10-day course of steroids History of severe sepsis -Notes indicate completed course of Zosyn and doxycycline No growth in blood cultures or peritoneal dialysis fluid during this hospitalization -Repeat respiratory viral panel 12/10/2024 continues to be persistently positive for COVID. Otherwise negative. GI/Nutrition: Bowel regimen consisting of 100 mg docusate twice daily with as needed polyethylene glycol daily -40 mg pantoprazole daily -Last bowel movement 12/11 Suspected dysphagia. aspiration precautions Heme: Long-term anticoagulation -Anticoagulation with Coumadin -Discussed with pharmacy. Increased dose today, anticipate return to routine dosing tomorrow Anemia of end-stage renal disease -Epogen per nephrology History of venous thromboembolism - Ultrasound of lower extremities negative for DVT. DVT prophylaxis: SCDs and warfarin. Endocrine: ICU hyperglycemia protocol Diabetes Vascular access: Peripheral IVs -Right internal jugular tunneled dialysis catheter placed December 06 Code Status: Full code - Recommend goals of care discussion with palliative care medicine and nephrology. -Patient has multiple organ systems in a state of end-stage conditions: Dialysis dependent end-stage renal disease, chronic hypoxic respiratory failure, fibrotic COPD. If the patient were to suffer cardiac arrest, it is extremely unlikely he would survive resuscitative efforts; however, if he were to survive resuscitative process there would be resultant significant disability not in line with previously stated long-term goals. -Patient remains hemodynamically stable, does not require vasoactives, had longstanding stability with peritoneal dialysis -Is not standard medical practice to undergo routine intermittent hemodialysis in critical care unit with vasoactives given the patient's mandatory physiologic requirements when alternative dialysis methods have been tolerated and available: Sustained low efficiency dialysis versus peritoneal dialysis. Disposition: Patient is stable for downgrade out of ICU and critical care will sign off. Please reconsult for any questions or additional critical care needs. (2) Viral pneumonia: (3) ARDS (adult respiratory distress syndrome): (4) Chronic hypotension: (5) Pulmonary scarring: (6) Hypertrophic cardiomyopathy: Admission and Anticipated Discharge Date Admission Date: November 19, 2024 Subjective No significant overnight events. Discussing with Allied health and nursing staff patient's confused however redirectable. Patient believes he is being discharged today; this is definitely not the case. Having discussions with son and patient on Friday I believe the patient has waxing and waning capacity. At the present moment I do not believe the patient has capacity with regards to manipulating the relevant information and appreciation of the outcomes. Yesterday, per staff report, vasoactive medication was required to complete hemodialysis. Patient also had increasing oxygen requirements during the dialysis treatment which were eventually able to be weaned off after dialysis was completed with removal of approximately 2 L. Despite this, weight from 6 AM yesterday has only decreased 0.4 kg. Reviewed nephrology notes next anticipated dialysis will be Friday. Patient requiring change from OxyMask nasal cannula still having oxygen requirement Physical Exam Physical Exam: General: Alert. nontoxic. Skin: Warm, dry, Head: Atraumatic Ears, nose, mouth and throat: airway patent, oxy mask in place able to converse Cardiovascular: Normal peripheral perfusion Respiratory: no respiratory distress Gastrointestinal: Non distended Musculoskeletal: No deformity Results & Data Results & Data Vital Signs (Past 12 Hours) Vital Signs Temp Pulse Pulse Resp BP BP Pulse Ox 12/12/24 07:00 36.6 C 70 24 128/63 93 12/12/24 06:03 69 28 H 91 12/12/24 05:45 111/64 12/12/24 05:45 111/64 12/12/24 05:39 69 24 91 12/12/24 05:03 70 16 90 12/12/24 04:45 67 20 92 12/12/24 04:45 145/78 H 12/12/24 04:45 145/78 H 12/12/24 04:18 70 17 90 12/12/24 03:09 69 14 90 12/12/24 02:45 126/70 12/12/24 02:45 126/70 12/12/24 02:45 126/70 12/12/24 02:45 70 3 L 93 12/12/24 02:00 71 27 H 93 12/12/24 01:09 73 24 91 12/12/24 00:53 116/71 12/12/24 00:45 71 27 H 90 12/12/24 00:15 72 25 H 91 12/12/24 00:00 72 12/11/24 23:45 136/82 12/11/24 23:33 73 28 H 90 12/11/24 23:00 70 22 93 12/11/24 22:54 71 13 95 12/11/24 22:45 119/67 12/11/24 22:45 119/67 12/11/24 22:45 119/67 12/11/24 22:30 70 24 96 12/11/24 22:12 70 30 H 94 O2 Del Method O2 Flow Rate 12/12/24 07:00 Oxymask 5 12/12/24 06:03 5 12/12/24 05:45 12/12/24 05:45 12/12/24 05:39 12/12/24 05:03 12/12/24 04:45 12/12/24 04:45 12/12/24 04:45 12/12/24 04:18 12/12/24 03:09 12/12/24 02:45 12/12/24 02:45 12/12/24 02:45 12/12/24 02:45 12/12/24 02:00 12/12/24 01:09 12/12/24 00:53 12/12/24 00:45 12/12/24 00:15 12/12/24 00:00 12/11/24 23:45 12/11/24 23:33 12/11/24 23:00 12/11/24 22:54 12/11/24 22:45 12/11/24 22:45 12/11/24 22:45 12/11/24 22:30 12/11/24 22:12 3 Critical Care Results & Data Vital Signs (Past 12 Hours) Vital Signs Temp Pulse Pulse Resp BP BP Pulse Ox 12/12/24 07:00 36.6 C 70 24 128/63 93 12/12/24 06:03 69 28 H 91 12/12/24 05:45 111/64 12/12/24 05:45 111/64 12/12/24 05:39 69 24 91 12/12/24 05:03 70 16 90 12/12/24 04:45 67 20 92 12/12/24 04:45 145/78 H 12/12/24 04:45 145/78 H 12/12/24 04:18 70 17 90 12/12/24 03:09 69 14 90 12/12/24 02:45 126/70 12/12/24 02:45 126/70 12/12/24 02:45 126/70 12/12/24 02:45 70 3 L 93 12/12/24 02:00 71 27 H 93 12/12/24 01:09 73 24 91 12/12/24 00:53 116/71 12/12/24 00:45 71 27 H 90 12/12/24 00:15 72 25 H 91 12/12/24 00:00 72 12/11/24 23:45 136/82 12/11/24 23:33 73 28 H 90 12/11/24 23:00 70 22 93 12/11/24 22:54 71 13 95 12/11/24 22:45 119/67 12/11/24 22:45 119/67 12/11/24 22:45 119/67 12/11/24 22:30 70 24 96 12/11/24 22:12 70 30 H 94 O2 Del Method O2 Flow Rate 12/12/24 07:00 Oxymask 5 12/12/24 06:03 5 12/12/24 05:45 12/12/24 05:45 12/12/24 05:39 12/12/24 05:03 12/12/24 04:45 12/12/24 04:45 12/12/24 04:45 12/12/24 04:18 12/12/24 03:09 12/12/24 02:45 12/12/24 02:45 12/12/24 02:45 12/12/24 02:45 12/12/24 02:00 12/12/24 01:09 12/12/24 00:53 12/12/24 00:45 12/12/24 00:15 12/12/24 00:00 12/11/24 23:45 12/11/24 23:33 12/11/24 23:00 12/11/24 22:54 12/11/24 22:45 12/11/24 22:45 12/11/24 22:45 12/11/24 22:30 12/11/24 22:12 3 Lab & Micro Results (Past 24 Hours) RBC 3.34 M/uL (4.70-6.10) L 12/12/24 WBC 11.74 K/ul (4.8-10.8) H 12/12/24 Hgb 9.9 g/dl (14.0-18.0) L 12/12/24 Hct 30.3 % (42.0-52.0) L 12/12/24 MCV 90.7 fL (80.0-100.0) 12/12/24 MCH 29.6 pg (25.0-34.0) 12/12/24 MCHC 32.7 g/dL (32.0-36.0) 12/12/24 RDW Standard Deviation 54.0 fL (36.4-46.3) H 12/12/24 RDW Coefficient of Variation 16.8 % (11.5-14.5) H 12/12/24 Plt Count 136 K/uL (130-400) 12/12/24 MPV 11.4 fL (9.4-12.4) 12/12/24 Nucleated Red Blood Cells % (auto) 0.2 % 12/12 Nucleated RBC Absolute Count (auto) 0.02 K/uL (0.00-0.12) 0 12/12/24 Neutrophils (%) (Auto) 83.7 % 12/12/24 Lymphocytes (%) (Auto) 5.7 % 12/12/24 Monocytes # (Auto) 0.69 K/uL (0.11-0.59) H 12/12/24 Eosinophils # (Auto) 0.41 K/uL (0.00-0.50) 12/12/24 Immature Granulocyte % (Auto) 0.9 % 12/12/24 Neutrophils # (Auto) 9.84 K/uL (1.40-6.50) H 12/12/24 Lymphocytes # (Auto) 0.67 K/uL (1.20-3.40) L 12/12/24 Monocytes # (Auto) 0.69 K/uL (0.11-0.59) H 12/12/24 Eosinophils # (Auto) 0.41 K/uL (0.00-0.50) 12/12/24 Basophils # (Auto) 0.03 K/uL (0.00-0.20) 12/12/24 Immature Granulocyte # (Auto) 0.10 K/uL (0.01-0.20) 5 Na 139 mmol/L (136-145) 12/12/24 K 5.1 mmol/L (3.5-5.1) 12/12/24 Cl 105 mmol/L (98-107) 12/12/24 CO2 30 mmol/L (21-32) 12/12/24 Anion Gap 4 (3-11) 12/12/24 BUN 16 mg/dl (6-23) 12/12/24 Creatinine 2.84 mg/dl (0.6-1.4) H 12/12/24 BUN/Creatinine Ratio 5.6 (10-20) L 12/12/24 Glu 97 mg/dl (70-99(Fasting)) 12/12/24 Ca 8.7 mg/dl (8.6-10.3) 12/12/24 Phosphorus Level 2.1 mg/dl (2.5-4.9) L 12/12/24 Mg 1.9 mg/dl (1.7-2.4) 12/12/24 04:46 Calcium Level 8.7 mg/dl (8.6-10.3) 12/12/24 04:46 Prothromb Time International Ratio 1.3 (0.9-1.1) H 12/12/24 04 :46 Diagnostic Findings (Past 24 Hours) Chest X-Ray 12/11/24 14:51 INDICATION: Shortness of breath TECHNIQUE: Frontal radiograph of the chest. COMPARISON: Radiograph from 2 days ago FINDINGS: Cardiomegaly. Low inspiratory depth. Multifocal interstitial opacities appear unchanged. No pneumothorax. Small pleural effusions. No acute fracture. Right-sided dialysis catheter again noted. IMPRESSION: No significant interval change allowing for differences in technique. Electronically signed by Charles Bailey 12-11-2024 3:10 PM I & O Totals 24 Hours 12/11/24 12/12/24 12/13/24 06:59 06:59 06:59 Intake Total 500 / 500 383.806 / 383.806 Output Total 2 / 2 / Balance 498 / 498 381.806 / 381.806 Cumulative 11/18/24 23:33 thru 12/12/24 06:00 Intake Total 06308.406 Output Total 85953 Balance -2100.594 RT Ventilator Mngmt (Last Documented) Ventilator Ordered Settings Respiratory Rate 24 12/12/24 07:00 Fraction of Inspired Oxygen 85 12/11/24 14:05 Ventilator - PT Measurements Respiratory Rate 24 Coding Level of Care Code 24119 SUB INP/OBS CARE 3/50MIN Diagnoses Acute hypoxic respiratory failure J96.01 Viral pneumonia J12.9 ARDS (adult respiratory distress syndrome) J80 Chronic hypotension I95.89 Pulmonary scarring J98.4 Hypertrophic cardiomyopathy I42.2
--- NOTE | 2024-12-12 14:56 | Hospitalist Progress Note ---
Date of Service December 12, 2024 Assessment & Plan (1) Acute hypoxic respiratory failure: Plan: (1) Encephalopathy: Plan 79-year-old male with PMH of PE/A-fib on Coumadin, hypertrophic CM, CAD, PVD, hypotension on midodrine, COPD/RLD, ESRD on PD, esophageal achalasia, cirrhosis, prostate cancer status post surgery, MGUS, chronic anemia [baseline hemoglobin of 10-11], cognitive impairment, inclusion body myositis, past tobacco abuse who was recently admitted for COVID - 19 pneumonia/sp decdron Rx for 3-4 days/discharged to [facility] on room air presents w/ c/o increasing weakness, fall (no head trauma, witnessed fall). Severe sepsis-POA Bilateral pneumonia Acute metabolic encephalopathy: likely 2/2 acute illness iso underlying cognitive impairment. Acute hypoxic respiratory failure COVID-19 infection ARDS --CT chest with interval early bilateral pneumonia Compared to CT chest on 11/12 --ECHO: Mild concentric LVH. Asymmetric left ventricular hypertrophy involving the septum with maximal thickness of 2.1 cm. Outflow tract obstruction not identified. Cavity obliteration at mid ventricle. Left ventricle is hyperdynamic. EF > 70%. Aortic valve sclerosis mild, without significant aortic valve stenosis. --Peritoneal fluid analysis-no organism and wbc --Serology positive for COVID-19 --Blood cultures- negative to date Appreciate pulmonology input Completed zosyn/doxycycline course CRP trended down Completed dexamethasone 10 day treatement Continue to wean oxygen as tolerated PT recommends SNF placement 12/08 Stable overall On 5 L of O2 12/09 On 3 L of O2 Chest x-ray: Increasing infiltrates Clinically patient remains stable, asymptomatic With lower O2 requirement Monitor closely 12/10 Patient developed hypoxia, hypotension during hemodialysis Hemodialysis aborted Placed on BiPAP Transferred to ICU Discussed with Dr. Kaiser stat CXR ordered 12/11 On 6 L of O2, will try to wean off oxygen today Plan for HD today next 12/12 CT chest: focal pulmonary scarring on 6 L o2 continue weaning efforts Hypotension Continue midodrine Suspected dysphagia Aspiration precaution Speech eval and recs noted Troponin elevation secondary to illness in the setting of chronic kidney dysfunction, history ESRD on PD ESRD : Continue dialysis as per nephrology Got HD catheter placed by Vascular sx yesterday To get HD today 12/10 HD aborted Due to hypotension, hypoxia 12/11 For HD today 12/12 will discuss with Nephro re: next dialysis session Hyperglycemia secondary to diabetes HbA1c 6.7 Continue insulin while hospitalized Monitor BGs H/O PE/A-fib (early TBS) On Coumadin--initially held due to supratherapeutic INR. Got Vit K on 12/02/24 Warfarin resumed. Monitro INR Continue metoprolol, amiodarone. 12/10 INR 1.2 continue coumadin 12/11 INR 1.4 Continue Coumadin 12/12 INR 1.3 Other chronic medical conditions: Continue withe home meds Hypertrophic cardiomyopathy - Toprol XL changed to Metoprolol tartrate 25mg BID CAD/ PVD COPD/RLD as per records Cirrhosis on imaging from past admission Prostate cancer S/P surgery Chronic anemia, Hb stable Cognitive impairment, patient mentating well Inclusion body myositis as per records, patient to decide on steroid Rx recommendation from local neurologist following recent outpatient visit Subclinical hypothyroidism , needs repeat thyroid function test in 6 weeks as outpatient Past tobacco abuse. CODE STATUS Full code Admission and Anticipated Discharge Date Admission Date: November 19, 2024 Subjective Follow-up for ESRD, etc. Seen resting in bed, comfortable, not in distress On 5 L of O2 facemask States he feels okay overall Denies shortness of breath, chest pain, nausea vomiting, abdominal pain No other new symptoms Review of Systems Review of Systems: all noted and negative except for above Physical Exam Physical Exam: General- oriented x 2, not in distress, speaks in sentences with no effort or accessory muscle use Eyes- anicteric Neck- no JVD Lungs- mild crackles BL bases Heart- normal rate, regular rhythm; no murmurs Abdomen- normal bowel sounds, nondistended, soft, nontender Extremities- no pretibial edema, no calf tenderness Neuro- alert, oriented x 3; no gross focal neurologic deficits Skin- warm & dry Results & Data Results & Data Vital Signs (Past 12 Hours) Vital Signs Temp Pulse Pulse Resp BP BP Pulse Ox 12/12/24 13:00 71 19 94 12/12/24 13:00 88 L 12/12/24 12:45 118/66 12/12/24 12:36 71 22 89 L 12/12/24 12:27 88 L 12/12/24 12:01 88 L 12/12/24 12:00 69 23 92 12/12/24 11:45 126/77 12/12/24 11:42 68 24 91 12/12/24 11:27 69 22 87 L 12/12/24 11:06 36.8 C 12/12/24 10:45 119/69 12/12/24 10:45 119/69 12/12/24 10:39 67 24 92 12/12/24 10:03 69 22 97 12/12/24 09:45 113/87 12/12/24 09:33 76 24 92 12/12/24 09:18 80 22 89 L 12/12/24 08:45 110/66 12/12/24 08:42 85 24 91 12/12/24 08:09 79 24 93 12/12/24 07:45 117/70 12/12/24 07:39 70 19 90 12/12/24 07:00 69 13 89 L 12/12/24 07:00 36.6 C 70 24 128/63 93 12/12/24 06:03 69 28 H 91 12/12/24 05:45 111/64 12/12/24 05:45 111/64 12/12/24 05:39 69 24 91 12/12/24 05:03 70 16 90 12/12/24 04:45 67 20 92 12/12/24 04:45 145/78 H 12/12/24 04:45 145/78 H 12/12/24 04:18 70 17 90 12/12/24 03:09 69 14 90 O2 Del Method O2 Flow Rate 12/12/24 13:00 12/12/24 13:00 Oxymask 6 12/12/24 12:45 12/12/24 12:36 12/12/24 12:27 Nasal Cannula 6 12/12/24 12:01 Nasal Cannula 5 12/12/24 12:00 12/12/24 11:45 12/12/24 11:42 12/12/24 11:27 12/12/24 11:06 12/12/24 10:45 12/12/24 10:45 12/12/24 10:39 12/12/24 10:03 12/12/24 09:45 12/12/24 09:33 12/12/24 09:18 12/12/24 08:45 12/12/24 08:42 12/12/24 08:09 12/12/24 07:45 12/12/24 07:39 12/12/24 07:00 12/12/24 07:00 Oxymask 5 12/12/24 06:03 5 12/12/24 05:45 12/12/24 05:45 12/12/24 05:39 12/12/24 05:03 12/12/24 04:45 12/12/24 04:45 12/12/24 04:45 12/12/24 04:18 12/12/24 03:09 all noted and reviewed including below
[2024-12-12] MEDS: WARFARIN SOD 0.5 MG TAB PO SCH (16:39)
[2024-12-12] MEDS: WARFARIN SOD 1 MG TAB PO SCH (16:39)
--- NOTE | 2024-12-12 16:41 | Nephrology Progress Note ---
Date of Service December 12, 2024 Assessment & Plan Admission and Anticipated Discharge Date Admission Date: November 19, 2024 Subjective Assessment & Plan (1)ESRD---- 2. Acute respiratory failure Plan: has ESRD on Dialysis. Had dialysis yesterday in ICU with levophed. still has Hypoxia and needing high o2--now 6 liters. Reviewed Cards and ICU note both saying there is no fluid overload but resp failure from Resp cause/ARDS/Pneumonia.--Fibroproliferative phase of ARDS. Also has LVOT obstruction which makes fluid removal with dialysis harder. next Dialysis will be on Friday. NO fluid overload that we can take with Dialysis. No electrolyte issues. Since taking fluid with dialysis has made no difference---Now still hypoxic. he is nowhere close to be discharged to rehab. His regular director employment Dr Galvan will be back tomorrow and she can decide whether to continue HD with the plan for rehab or to go back to PD. Subjective He Dialysis yesterday. CVC worked fine. BP did drop but total UF of 1500 ml was done. Less SOB than yesterday but still very hypoxic. on NC 6 liters now but not needing pressors currently. Review of Systems Review of Systems: All other systems were reviewed and negative except as noted in HPI Physical Exam Physical Exam: General exam: Appears Sick. Mild resp distress HEENT: Pupils are equal and reactive to light Neck: No JVD, neck is supple trachea is midline Respiratory system: Crackles bilaterally. Gastrointestinal: Abdomen is soft, non distended, non tender, bowel sounds are present CVS: Regular rate and rhythm. No murmurs, rubs or gallops Musculoskeletal: No joint or muscle tenderness Extremities: Non tender, no edema, peripheral pulses are present Neuro: Oriented, no tremors, no focal neurological deficits Skin: No rashes Results & Data Vital Signs (Past 12 Hours) Vital Signs Temp Pulse Pulse Resp BP BP Pulse Ox 12/12/24 15:45 129/76 12/12/24 15:45 74 25 H 91 12/12/24 15:15 72 24 91 12/12/24 14:45 130/70 12/12/24 14:30 67 24 92 12/12/24 13:00 71 19 94 12/12/24 13:00 88 L 12/12/24 12:45 118/66 12/12/24 12:36 71 22 89 L 12/12/24 12:27 88 L 12/12/24 12:01 88 L 12/12/24 12:00 69 23 92 12/12/24 11:45 126/77 12/12/24 11:42 68 24 91 12/12/24 11:27 69 22 87 L 12/12/24 11:06 36.8 C 12/12/24 10:45 119/69 12/12/24 10:45 119/69 12/12/24 10:39 67 24 92 12/12/24 10:03 69 22 97 12/12/24 09:45 113/87 12/12/24 09:33 76 24 92 12/12/24 09:18 80 22 89 L 12/12/24 08:45 110/66 12/12/24 08:42 85 24 91 12/12/24 08:09 79 24 93 12/12/24 07:45 117/70 12/12/24 07:39 70 19 90 12/12/24 07:00 69 13 89 L 12/12/24 07:00 36.6 C 70 24 128/63 93 12/12/24 06:03 69 28 H 91 12/12/24 05:45 111/64 12/12/24 05:45 111/64 12/12/24 05:39 69 24 91 12/12/24 05:03 70 16 90 12/12/24 04:45 67 20 92 12/12/24 04:45 145/78 H 12/12/24 04:45 145/78 H O2 Del Method O2 Flow Rate 12/12/24 15:45 12/12/24 15:45 12/12/24 15:15 12/12/24 14:45 12/12/24 14:30 12/12/24 13:00 12/12/24 13:00 Oxymask 6 12/12/24 12:45 12/12/24 12:36 12/12/24 12:27 Nasal Cannula 6 12/12/24 12:01 Nasal Cannula 5 12/12/24 12:00 12/12/24 11:45 12/12/24 11:42 12/12/24 11:27 12/12/24 11:06 12/12/24 10:45 12/12/24 10:45 12/12/24 10:39 12/12/24 10:03 12/12/24 09:45 12/12/24 09:33 12/12/24 09:18 12/12/24 08:45 12/12/24 08:42 12/12/24 08:09 12/12/24 07:45 12/12/24 07:39 12/12/24 07:00 12/12/24 07:00 Oxymask 5 12/12/24 06:03 5 12/12/24 05:45 12/12/24 05:45 12/12/24 05:39 12/12/24 05:03 12/12/24 04:45 12/12/24 04:45 12/12/24 04:45
[2024-12-13 07:07] LABS: INR 1.5 (0.9-1.1); Prothrombin Time 16.1 Seconds (9.0-12.0)
[2024-12-13 10:05] LABS: Hematocrit (blood only) 31.7 % (42.0-52.0); Hemoglobin 10.2 g/dl (14.0-18.0); Mean Corpuscular Hemoglobin 29.2 pg (25.0-34.0); Mean Corpuscular Hgb Conc 32.2 g/dL (32.0-36.0); Mean Corpuscular Volume 90.8 fL (80.0-100.0); Mean Platelet Volume 11.1 fL (9.4-12.4); Nucleated RBC # (auto) 0.02 K/uL (0.00-0.12); Nucleated RBC % (auto) 0.2 %; Platelet Count 142 K/uL (130-400); RDW Coefficient of Variation 17.2 % (11.5-14.5); RDW Standard Deviation 54.7 fL (36.4-46.3); Red Blood Count 3.49 M/uL (4.70-6.10); White Blood Count 11.52 K/ul (4.8-10.8)
[2024-12-13 10:31] LABS: BUN Creatinine Ratio 6.3 (10-20); Calcium 8.7 mg/dl (8.6-10.3); Creatinine Clr Calc Pharmacy 14.2 ml/min; Magnesium 1.8 mg/dl (1.7-2.4); Potassium 6.4 mmol/L (3.5-5.1)
[2024-12-13] MEDS: MIDODRINE HCL 2.5 MG TAB PO SCH (11:14)
--- NOTE | 2024-12-13 11:44 | Pharmacy Report ---
Pharmacy Glycemic Short Note 2 - Date of Service December 13, 2024 - Glycemic Short BSG Results (Last 24 hours): 12/12/24 12/12/24 12/13/24 16:01 19:56 08:01 Glucose POC Glucose 143 H 128 H 123 H 12/13/24 09:46 Glucose 129 H POC Glucose OUTPATIENT ANTIDIABETIC REGIMEN: * 6.4% 11/13/24 * N/A ASSESSMENT: 12/13 * BSGs have been stable ([phone]/dL yesterday). He only required 2 un its total of bolus insulin yesterday (both bolus). * Fasting BSG was 123mg/dL, no additional need for basal insulin at this time. * Bolus insulin parameters to be continued as ordered. * HD scheduled for today. 12/10 * BSGs have been stable with no insulin the past 24 hours * Consider sign off, however, patient with acute change in respiratory status this AM and transfer to ICU. Will follow for today given change 12/08 * BSGs yesterday [phone] mg/dL with HD- received 1 unit of insulin * Fasting this morning 141 mg/dL. No HD planned for today * Continue to hold basal, continue same novolog parameters- monitor 12/07: * BSGs over the past 24 hours were [phone] mg/dL and this morning were 91-103 mg/dL. Patient received 3 units of novolog yesterday. * Patient undergoing first HD session today. * Will monitor BSGs over the next 24 hours but without dextrose for PD, BSGs relatively well controlled with very little insulin. * Patient's PO intake remains minimal. 12/06: * BSGs once again otilio overnight and into this morning with PD but resolved upon completion of PD. BSGs yesterday were [phone] mg/dL and this morning 205-101 mg/dL. * Patient was NPO this morning for placement of a HD catheter and had a diet resumed at lunch time. * There are no plans for PD or HD today. Given today's BSGs post PD and typical trend of being in range outside of PD administration, will hold basal insulin today. Possible plan for HD tomorrow. 12/04: * Patient continues on PD, blood sugars otilio overnight last night, was covered with NovoLog, will change back to a reduced dose of NPH for tonight's PD. * No further Lantus as steroids have been discontinued. * Continue NovoLog parameters. 12/03: * BSGs [phone]/dl the last 24h. Pt did have a low BSG yesterday afternoon, 60mg/dl that required treatment. Received 23 units of basal and 9 units of bolus insulin yesterday. * NPO since midnight last night for HD permacath placement which was unable to be performed due to INR-diet resumed at lunch (although no PO intake documented for ~ 24h). Dexamethasone discontinued. * Will hold basal insulin today given overall downward trend in BSGs and now without steroids on board and decreased PO. Unclear plan for dialysis moving forward (no PD orders placed as of yet, re-attempt at HD cath). Therefore, will plan for overnight checks tonight with Novolog to provide some PD correctional coverage if ordered. Novolog also loosened given discontinuation of steroids. 12/02: * BSGs 354-620-194ki/dL the last 24h. Received 28 units of basal and 15 units of bolus insulin yesterday. * Some PO intake documented yesterday. Day #10 dexamethasone today- will discontinue. Plan for overnight PD. * No changes to insulin today. Continue Lantus 8 units daily + NPH 20 units at dinner. Novolog 08/05 ACHS. 11/29: * BSGs largely within goal the last 24h: [phone]/dl. Received 23 units of basal insulin and 21 units of bolus insulin yesterday. * Continues on IV dexamethasone 6mg daily, zosyn and overnight PD. Minimal documented PO intake today. * Continue Lantus 8 units daily to provide coverage of steroids. NPH 15 units at dinner for PD coverage. No change to Novolog parameters - will stop overnight checks given evening NPH. 11/28: * Monster received 33 units of insulin yesterday (8 Lantus, 10 insulin NPH) * IV dexamethasone 6mg continues, will give a small dose (~0.1 units/kg) of long-acting basal insulin to help cover steroid induced hyperglycemia * Insulin NPH re-initiated yesterday evening around when peritoneal dialysis begins, NPH vs Lantus since duration of action would better cover dialysate induced hyperglycemia. Dose increased from yesterday as BSGs overnight still elevated. * No changes to NovoLog since titrating NPH today. He is finishing up his course of ABX for pneumonia. 11/26: * BSGs [phone]/dl the last 24h. Received 13units of bolus insulin yesterday. * Continues on dexamethasone 6mg IV daily, zosyn, and PD overnight. PD dextrose concentration for tonight unclear. * NPH was held yesterday evening per provider d/t decreased PO. Continues w/ decreased PO intake today. Will switch to Lantus 8 units X 1 dose today with lunch to provide basal coverage given decreased PO. No change to Novolog for today. 11/25 * Dexamethasone 6 mg IV continues * BSG wnl at lunch yesterday, but hyperglycemia noted in the evening and overnight, likely 2nd PD bags (6 bags of 4.25% dextrose). BSG back down to goal this AM. * Dialysate changing this evening per nephrology note - plans 6 bags of 2.5% dextrose, which is almost half of the dextrose as compared to yesterday. Will continue NPH given at 1700, but will reduce slightly 2nd significant dextrose reduction in dialysate * Correction factor seems to be working after dextrose load in PD finishes, based on BSG's in goal range x2 the last 2 days after PD. Will therefore leave correction factor as-is. 11/24 * Patient with significant hyperglycemia overnight- possibly d/t increase in dextrose content in PD bags and steroids * Patient was given 20 units of Lantus and started on weight based stress of 3 novolog. Trended down overnight. * Patient currently has diet ordered but minimal intake. Dexamethasone 6 mg daily ordered. * Will trial NPH with dinner to help cover PD bags rather than long acting basal * Continue weight based of 3 NovoLog for now with overnight checks. Caution with IV regular bolus insulin d/t hypokalemia PLAN FOR INPATIENT GLYCEMIC CONTROL: * Basal insulin * Hold * Bolus insulin * NovoLog per scale ACHS or Q6hrs while NPO * Goal Range: Low 110 mg/dL - High 140 mg/dL * Correction Factor: 30 mg/dL/unit * Nutritional / Prandial insulin per carb ratio of 1 unit per 15 grams CHO consumed
[2024-12-13] MEDS: HEPARIN SOD (PORCINE) 1000 UNIT/ML IV SCH (13:18)
[2024-12-13] MEDS: HEPARIN SOD (PORCINE) 1000 UNIT/ML IV ONE (13:18)
[2024-12-13] MEDS: EPOETIN ALFA 10,000 UNITS/ML VIAL IV ONE (13:29)
--- NOTE | 2024-12-13 15:45 | Electrocardiogram Report ---
Test Reason : Blood Pressure : */* mmHG Vent. Rate : 56 BPM Atrial Rate : 56 BPM P-R Int : 242 ms QRS Dur : 86 ms QT Int : 510 ms P-R-T Axes : 24 -62 32 degrees QTcB Int : 492 ms Sinus bradycardia with 1st degree A-V block Low voltage QRS Right bundle branch block Left anterior fascicular block Nonspecific ST abnormality QTcB >= 480 msec Abnormal ECG When compared with ECG of 03-Dec-2024 03:22, OK interval has increased Criteria for Septal infarct are no longer Present Confirmed by Kyler Perkins [id number]) on 12/13/2024 3:45:11 PM Referred By: REFERRED SELF Confirmed By: Kyler Perkins
--- NOTE | 2024-12-13 18:21 | Hospitalist Progress Note ---
Date of Service December 13, 2024 Assessment & Plan (1) Acute hypoxic respiratory failure: Plan: (1) Acute hypoxic respiratory failure: Plan: (1) Encephalopathy: Plan 79-year-old male with PMH of PE/A-fib on Coumadin, hypertrophic CM, CAD, PVD, hypotension on midodrine, COPD/RLD, ESRD on PD, esophageal achalasia, cirrhosis, prostate cancer status post surgery, MGUS, chronic anemia [baseline hemoglobin of 10-11], cognitive impairment, inclusion body myositis, past tobacco abuse who was recently admitted for COVID - 19 pneumonia/sp decdron Rx for 3-4 days/discharged to [facility] on room air presents w/ c/o increasing weakness, fall (no head trauma, witnessed fall). Severe sepsis-POA Bilateral pneumonia Acute metabolic encephalopathy: likely 2/2 acute illness iso underlying cognitive impairment. Acute hypoxic respiratory failure COVID-19 infection ARDS --CT chest with interval early bilateral pneumonia Compared to CT chest on 11/12 --ECHO: Mild concentric LVH. Asymmetric left ventricular hypertrophy involving the septum with maximal thickness of 2.1 cm. Outflow tract obstruction not identified. Cavity obliteration at mid ventricle. Left ventricle is hyperdynamic. EF > 70%. Aortic valve sclerosis mild, without significant aortic valve stenosis. --Peritoneal fluid analysis-no organism and wbc --Serology positive for COVID-19 --Blood cultures- negative to date Appreciate pulmonology input Completed zosyn/doxycycline course CRP trended down Completed dexamethasone 10 day treatement Continue to wean oxygen as tolerated PT recommends SNF placement 12/08 Stable overall On 5 L of O2 12/09 On 3 L of O2 Chest x-ray: Increasing infiltrates Clinically patient remains stable, asymptomatic With lower O2 requirement Monitor closely 12/10 Patient developed hypoxia, hypotension during hemodialysis Hemodialysis aborted Placed on BiPAP Transferred to ICU Discussed with Dr. Kaiser stat CXR ordered 12/11 On 6 L of O2, will try to wean off oxygen today Plan for HD today next 12/12 CT chest: focal pulmonary scarring on 6 L o2 continue weaning efforts 12/13 Today, patient is at 5 L of O2 via nasal cannula Encouraged to use incentive spirometry and flutter valve Hypotension Continue midodrine Suspected dysphagia Aspiration precaution Speech eval and recs noted Troponin elevation secondary to illness in the setting of chronic kidney dysfunction, history ESRD on PD ESRD : Continue dialysis as per nephrology Got HD catheter placed by Vascular sx yesterday To get HD today 12/10 HD aborted Due to hypotension, hypoxia 12/11 For HD today 12/12 will discuss with Nephro re: next dialysis session 12/13 Patient scheduled for HD today Monitor closely Hyperglycemia secondary to diabetes HbA1c 6.7 Continue insulin while hospitalized Monitor BGs H/O PE/A-fib (early TBS) On Coumadin--initially held due to supratherapeutic INR. Got Vit K on 12/02/24 Warfarin resumed. Monitro INR Continue metoprolol, amiodarone. 12/10 INR 1.2 continue coumadin 12/11 INR 1.4 Continue Coumadin 12/12 INR 1.3 12/14 INR 1.5 Other chronic medical conditions: Continue withe home meds Hypertrophic cardiomyopathy - Toprol XL changed to Metoprolol tartrate 25mg BID CAD/ PVD COPD/RLD as per records Cirrhosis on imaging from past admission Prostate cancer S/P surgery Chronic anemia, Hb stable Cognitive impairment, patient mentating well Inclusion body myositis as per records, patient to decide on steroid Rx r ecommendation from local neurologist following recent outpatient visit Subclinical hypothyroidism , needs repeat thyroid function test in 6 weeks as outpatient Past tobacco abuse. CODE STATUS Full code Admission and Anticipated Discharge Date Admission Date: November 19, 2024 Subjective Follow-up for ESRD, etc. Seen resting in bed, comfortable, in good spirits States he feels better today Had a good nights rest Breathing is improving No cough, fevers or chills Denies abdominal pain, nausea No other new symptoms Review of Systems Review of Systems: all noted and negative except for above Physical Exam Physical Exam: General- oriented x 2, not in distress, speaks in sentences with no effort or accessory muscle use Eyes- anicteric Neck- no JVD Lungs- Mild crackles at the bases, no wheezing Heart- normal rate, regular rhythm; no murmurs Abdomen- normal bowel sounds, nondistended, soft, nontender Extremities- no pretibial edema, no calf tenderness Neuro- alert, oriented x 2; no gross focal neurologic deficits Skin- warm & dry Results & Data Results & Data Vital Signs (Past 12 Hours) Vital Signs Temp Pulse Pulse Pulse Resp BP BP 12/13/24 15:31 79 12/13/24 15:30 36.4 C L 92 H 19 103/67 12/13/24 15:25 36.3 C L 85 100/57 L 12/13/24 15:00 88 105/54 L 12/13/24 14:30 85 103/57 L 12/13/24 14:00 84 113/62 12/13/24 13:30 68 113/64 12/13/24 13:00 77 113/77 12/13/24 12:30 69 111/64 12/13/24 12:00 62 110/63 12/13/24 11:40 54 L 120/60 12/13/24 11:35 36.8 C 56 L 12/13/24 09:03 12/13/24 07:50 36.9 C 72 18 117/67 12/13/24 07:23 72 Pulse Ox O2 Del Method O2 Flow Rate 12/13/24 15:31 12/13/24 15:30 90 Nasal Cannula 6 12/13/24 15:25 12/13/24 15:00 12/13/24 14:30 12/13/24 14:00 12/13/24 13:30 12/13/24 13:00 12/13/24 12:30 12/13/24 12:00 12/13/24 11:40 12/13/24 11:35 12/13/24 09:03 Nasal Cannula 5 12/13/24 07:50 98 Oxymask 5 12/13/24 07:23 all noted and reviewed including below
--- NOTE | 2024-12-13 22:14 | Nephrology Progress Note ---
Date of Service December 13, 2024 Assessment & Plan (1) ESRD (end stage renal disease) on dialysis: Plan: ESRD currently on HD -eval daily for short dialysis w/ gentle /conservativ eus HD has been limited by hypotension > gave ezxtra lasix dose prior to tx -also ran it on cold temp son and ex at bedside today >> reviewed challenges he's had w/ modality swtich; he may well prove not to tolerate HD but I believe it's important to trial HD w/ care / mindfullness for LVOT obstruction extensive care coordination in person with pt and family; care also briefly reviewed in person w/ Dr Aguirre (2) Peritoneal dialysis status: Plan: last PD was approx one week ago > nurse went to change dressing and flush catheter >> cath w/o push or pull >KUB in AM ordered; may need to try alteplace >>will need weekly dressing changes and flushes of PD catheter TO BE DONE BY PD nurse only at d/c (3) Accident due to mechanical fall without injury: Plan: Continue PT and then rehab as feasible (4) Hyperkalemia: Plan: k 6.4 today; he had (5) 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 on 5L NC; thinking clearer and a bit stronger, more alert. asking what he can do to get better. son and ex at beside Review of Systems 2 Review of Systems: All systems reviewed & are unremarkable except as noted in Subjective Physical Exam 2 Constitutional: well developed, well nourished, + frail appearing and cooperative; no acute distress and no altered mental status Eyes: EOM intact bilaterally ENMT: Mouth: + dry oral mucous membranes Respiratory: normal respiratory effort, + cough (w/ deep inspiration) and able to speak in complete sentences; no labored breathing Auscultation: + diminished lung sounds (extremely), + crackles (diffuse), + rhonchi and + bronchovesicular breath sounds Cardiovascular: Rate/Rhythm: regular rate and regular rhythm Heart Sounds: + murmur Extremities: no edema Gastrointestinal (Abdomen): Inspection/Auscultation: normal bowel sounds and + abdominal surgical drain present (PD catheter) Percussion/Palpation: abdomen soft; abdomen nontender Musculoskeletal: Extremities: strength 5/5 throughout Skin: no rashes, warm and dry Results & Data Vital Signs (Past 12 Hours) Vital Signs Temp Pulse Pulse Pulse Pulse Resp BP 12/13/24 21:27 85 12/13/24 19:55 36.6 C 90 18 12/13/24 19:42 12/13/24 15:31 79 12/13/24 15:30 36.4 C L 92 H 19 12/13/24 15:25 36.3 C L 85 12/13/24 15:00 88 105/54 L 12/13/24 14:30 85 103/57 L 12/13/24 14:00 84 113/62 12/13/24 13:30 68 113/64 12/13/24 13:00 77 113/77 12/13/24 12:30 69 111/64 12/13/24 12:00 62 110/63 12/13/24 11:40 54 L 120/60 12/13/24 11:35 36.8 C 56 L BP BP Pulse Ox O2 Del Method O2 Flow Rate 12/13/24 21:27 109/62 12/13/24 19:55 108/65 99 Nasal Cannula 5 12/13/24 19:42 Nasal Cannula 5 12/13/24 15:31 12/13/24 15:30 103/67 90 Nasal Cannula 6 12/13/24 15:25 100/57 L 12/13/24 15:00 12/13/24 14:30 12/13/24 14:00 12/13/24 13:30 12/13/24 13:00 12/13/24 12:30 12/13/24 12:00 12/13/24 11:40 12/13/24 11:35 Laboratory Results 12/13/24 09:46 12/13/24 09:46
--- NOTE | 2024-12-13 22:20 | Palliative Care Consultation ---
Date of Consultation December 13, 2024 Assessment & Plan (1) Palliative care by specialist: Met with pt at bedside, no visitors present. Introduced Palliative Medicine and explained our role in advanced care planning, symptom management and navigation through the progression of life limiting disease. Patient was receptive to palliative services for goals of care discussions. Reviewed we are different from hospice, a home health nurse visiting service. (2) Counseling regarding goals of care: Spoke briefly with patient about his medical history and current admission course. He answered most questions with "that sounds right" or "I don't know". He was not able to offer unprompted knowledge of his medical history. Patient exhibits current lack of decisional capacity based on the inability to convey understanding of personal PMHx, current medical condition, treatment options nor the risks / benefits of those options, and lack of ability to make decisions based on such knowledge. Hospital does not have written documentation of patient wishes concerning his chosen proxy for medical decisions. Per PA [id number], in absence of written documentation of patient wishes, pt's proxy for medical decisions would be his son Dominic Samson ([phone]). Pt doesccurrently require a proxy for medical decisions. Attempt made to contact Dominic by phone, no answer, no VM ability. Per [facility] pt's exwife called into hospital earlier today to report she and her son were planning to visit late afternoon with their digital cartographic technician to have some financial documents executed by pt. Palliative care will continue to follow to assist with GOC discussions. History of Present Illness Reason for Consultation: goals of care Requesting Physician: Mauro Aguirre MD Attending Physician: Mauro Aguirre MD History of Present Illness Monster Samson is a 79-year-old male on hospital day 24 who has a PMHx of ESRD previously on peritoneal dialysis, peritonitis from peritoneal catheter, recurrent sepsis, AF -RVR on AC, hypertrophic cardiomyopathy, BL pulmonary embolisms, who was recently recovering from a COVID-19 PNA with associated acute respiratory distress syndrome and acute hypoxic respiratory failure. Patient finished a 2-week course of steroids for the acute respiratory distress and viral pneumonia. During this hospitalization, PD became challenging and c/b hypotension and respiratory distress. He was switched to IHD with hope for DC to rehab in attempt to regain strength. IHD was trialed x3 but has not been able to remove fluid 2/2 hypotension. Palliative care ws consulted for assistance with goals of care after protracted and complicated admission course. Allergies Allergy/AdvReac Type Severity Reaction Status Date / Time No Known Allergies Allergy Verified 11/12/24 22:14 Home Medications Medication Instructions Recorded Confirmed Type amiodarone 200 mg tablet 200 mg PO DAILY 10/16/24 11/19/24 History metoprolol succinate 25 mg 25 mg PO DAILY 10/16/24 11/19/24 History tablet,extended release 24 hr midodrine 2.5 mg tablet 2.5 mg PO AMPM 10/16/24 11/19/24 History warfarin 2 mg tablet 2 mg PO DAILY 10/19/24 11/19/24 History docusate sodium 100 mg capsule 100 mg PO BID #60 caps 10/21/24 11/19/24 Rx polyethylene glycol 3350 17 gram 17 g PO DAILY PRN constipation #30 10/21/24 11/19/24 Rx oral powder packet (Miralax) ea Lactobacillus acidophilus 1 tab PO DAILY 11/12/24 11/19/24 History Renal Multivit W/1mg Or <Fa 1 tab PO DAILY 11/12/24 11/19/24 History acetaminophen 500 mg tablet 500 mg PO Q6H 11/12/24 11/19/24 History cholecalciferol (vitamin D3) 50 50 mcg PO DAILY 11/12/24 11/19/24 History mcg (2,000 unit) capsule (Vitamin D3) gentamicin 0.1 % topical cream 1 applic topical DAILY 11/12/24 11/19/24 History lanolin alcohols-mineral 1 applic topical UD PRN SKIN CARE 11/12/24 11/19/24 History oil-w.petrolatum-ceresin topical cream (Eucerin topical cream) maltodextrin 1 ea PO QAM PRN Constipation 11/12/24 11/19/24 History menthol 0.44 %-zinc oxide 20.6 % 1 applic topical DAILY 11/12/24 11/19/24 History topical ointment (Calmoseptine) metoprolol tartrate 25 mg tablet 25 mg PO DAILY PRN HR > 100 @ REST 11/12/24 11/19/24 History pantoprazole 40 mg tablet,delayed 40 mg PO DAILY 11/12/24 11/19/24 History release doxycycline hyclate 100 mg capsule 100 mg PO BID 6 days #12 caps 11/15/24 11/19/24 Rx Patient History Medical History CAP (community acquired pneumonia) Hypotension ESRD on peritoneal dialysis Renal cyst 3.9 cm cystic lesion-L Paroxysmal A-fib listed in [facility] records CAD (coronary artery disease) PVD (peripheral vascular disease) Dysphagia Anemia Pulmonary nodule MGUS (monoclonal gammopathy of unknown significance) follows with [facility] heme/onc LBBB (left bundle branch block) Hearing deficit Surgical History History of appendectomy History of tooth extraction all teeth removed History of bilateral cataract extraction History of prostatectomy Family History Father Diabetes Other No family history of adverse response to anesthesia Social History Smoking Status: Former smoker Tobacco Type: Cigarettes Second Hand Exposure: No; Do You Dip or Chew Tobacco: No; Hx Alcohol Use: No Hx Substance Use: Yes Preferred Language: Croatian Communication Ability: Effective Telescope Repairer Required: No Beliefs That Will Affect Care: None Current Living Situation: [facility] Current Living Situation Comment: lives at facility Feels Safe at Home: Yes Assistive Devices: Walker Review of Systems Review of Systems: Unobtainable due to cognitive status Physical Exam Constitutional: well developed, well nourished, + ill appearing and comfortable; no acute distress Eyes: PERRL, conjunctivae normal, anicteric sclerae ENMT: external ear and nose normal, oropharynx normal Neck: trachea midline, no thyromegaly Respiratory: normal respiratory effort, lungs clear to auscultation Musculoskeletal: GARCIA with strength and purpose, generalized weakness noted. Neurologic: moves all extremities, awake and + confused Results & Data Vital Signs (Past 12 Hours) Vital Signs Temp Pulse Pulse Pulse Pulse Resp BP 12/13/24 21:27 85 12/13/24 19:55 36.6 C 90 18 12/13/24 19:42 12/13/24 15:31 79 12/13/24 15:30 36.4 C L 92 H 19 12/13/24 15:25 36.3 C L 85 12/13/24 15:00 88 105/54 L 12/13/24 14:30 85 103/57 L 12/13/24 14:00 84 113/62 12/13/24 13:30 68 113/64 12/13/24 13:00 77 113/77 12/13/24 12:30 69 111/64 12/13/24 12:00 62 110/63 12/13/24 11:40 54 L 120/60 12/13/24 11:35 36.8 C 56 L BP BP Pulse Ox O2 Del Method O2 Flow Rate 12/13/24 21:27 109/62 12/13/24 19:55 108/65 99 Nasal Cannula 5 12/13/24 19:42 Nasal Cannula 5 12/13/24 15:31 12/13/24 15:30 103/67 90 Nasal Cannula 6 12/13/24 15:25 100/57 L 12/13/24 15:00 12/13/24 14:30 12/13/24 14:00 12/13/24 13:30 12/13/24 13:00 12/13/24 12:30 12/13/24 12:00 12/13/24 11:40 12/13/24 11:35 Laboratory Results Abnormal lab results 12/13/24 12/13/24 12/13/24 Range/Units 05:55 08:01 09:46 WBC 11.52 H (4.8-10.8) K/ul RBC 3.49 L (4.70-6.10) M/uL Hgb 10.2 L (14.0-18.0) g/dl Hct 31.7 L (42.0-52.0) % RDW Std Deviation 54.7 H (36.4-46.3) fL RDW Coeff of Maureen 17.2 H (11.5-14.5) % PT 16.1 H (9.0-12.0) Seconds INR 1.5 H (0.9-1.1) Potassium 6.4 H* D (3.5-5.1) mmol/L BUN 29 H (6-23) mg/dl Creatinine 4.59 H* D (0.6-1.4) mg/dl BUN/Creatinine Ratio 6.3 L (10-20) Glucose 129 H (70-99(Fasting)) mg/dl POC Glucose 123 H (70-99) mg/dl Iron 22 L (35-175) mcg/dl TIBC 136 L (250-450) mcg/dl Transferrin 97 L (200-360) mg/dl Transferrin % Sat 16 L (20-50) % 12/13/24 Range/Units 20:23 WBC (4.8-10.8) K/ul RBC (4.70-6.10) M/uL Hgb (14.0-18.0) g/dl Hct (42.0-52.0) % RDW Std Deviation (36.4-46.3) fL RDW Coeff of Maureen (11.5-14.5) % PT (9.0-12.0) Seconds INR (0.9-1.1) Potassium (3.5-5.1) mmol/L BUN (6-23) mg/dl Creatinine (0.6-1.4) mg/dl BUN/Creatinine Ratio (10-20) Glucose (70-99(Fasting)) mg/dl POC Glucose 131 H (70-99) mg/dl Iron (35-175) mcg/dl TIBC (250-450) mcg/dl Transferrin (200-360) mg/dl Transferrin % Sat (20-50) % Diagnostic Findings Pelvis X-Ray 11/18/24 23:58 EXAM: XR pelvis 1-2V routine CLINICAL HISTORY: trauma TECHNIQUE: Radiograph of pelvis was acquired. COMPARISON: none FINDINGS: No acute fracture or dislocation. The soft tissues are unremarkable. Visualized joint spaces are well maintained. IMPRESSION: 1. No acute osseous or soft tissue abnormality. Electronically signed by Omkar Dye 11-19-2024 02:[address] 11/19/24 00:13 EXAM: CT cervical spine wo con CLINICAL HISTORY: trauma TECHNIQUE: Computed tomography of the cervical spine performed without intravenous contrast. Contiguous axial images were obtained from the skull base to T2, with sagittal and coronal reformatted images reconstructed from the axial data. CT scan was performed according to ALARA (as low as reasonably achievable). COMPARISON: none FINDINGS: Loss of cervical lordotic curvature. Cervical vertebral bodies are normal in height and alignment, with no evidence of fracture or subluxation. Lateral masses of C1 are symmetrical, and the dens is intact. Prevertebral soft tissues are not widened. Small marginal osteophytes at C5 and C6. The remaining suprahyoid and infrahyoid soft tissues in the neck are unremarkable. No disc bulge, mass effect on the cord or neuroforaminal narrowing. Thyroid gland appears unremarkable. IMPRESSION: 1.No acute fracture or subluxation in the cervical spine. Electronically signed by Omkar Dye 11-19-2024 02:[address] 11/19/24 12:07 CT chest diagnostic wo/w con CLINICAL HISTORY: left chest pain, ro abscess/infection COMPARISON STUDY: 11/13/2024 FINDINGS: There is mild emphysema. There are interval scattered reticular and patchy groundglass opacities at the mid and lower lungs consistent with early pneumonia. No other consolidation or pleural effusion. No pneumothorax. No enlarged adenopathy. No pericardial effusion. There are diffuse coronary artery and aortic calcifications. No thoracic aortic dissection or aneurysm. No pulmonary embolism. Stable elevation of the right hemidiaphragm. No acute osseous findings. IMPRESSION: 1. Interval early bilateral pneumonia. 2. No other acute findings seen. Otherwise as described. ACT 112: Negative or not required by law. Electronically signed by: Jose Ramon Lawrence M.D. 11/19/2024 2:[address] 12/07/24 19:56 Exam(s): CT HEAD Without Contrast EXAM: CT Head Without Intravenous Contrast CLINICAL HISTORY: Reason for exam: AMS?. TECHNIQUE: Axial computed tomography images of the head/brain without intravenous contrast. CTDI is 64.34 mGy and DLP is 1098.96 mGy-cm. Automated exposure control was utilized for the study. A dose lowering technique was utilized adhering to the principles of ALARA. COMPARISON: 11/19/2024 FINDINGS: Artifacts: Images are slightly degraded by motion artifact. Brain: No hemorrhage, extra-axial fluid collection, mass effect, or edema. Ventricles: Unremarkable. Bones/joints: Unremarkable. No fracture. Soft tissues: Unremarkable. Sinuses: Trace fluid within the maxillary sinuses. Mastoid air cells: Unremarkable as visualized. IMPRESSION: 1. No acute intracranial abnormality. Electronically signed by: Elmer Dixon MD 12/07/24 21:34 PM Venous Doppler Study 12/10/24 11:45 Exam(s): US VENOUS BILATERAL LOWER EXTREMITIES EXAM: US Duplex Bilateral Lower Extremities Veins CLINICAL HISTORY: Reason for exam: r/o dvt. TECHNIQUE: Real-time duplex ultrasound scan of the bilateral lower extremity veins integrating B-mode two-dimensional vascular structure, Doppler spectral analysis, color flow Doppler imaging and compression. COMPARISON: 10/15/2023 FINDINGS: Right deep veins: Unremarkable. The visualized deep veins of the right lower extremity are compressible with color flow. No visualized thrombus. Right superficial veins: Unremarkable. Left deep veins: Unremarkable. The visualized deep veins of the left lower extremity are compressible with color flow. No visualized thrombus. Left superficial veins: Unremarkable. Soft tissues: No acute findings. IMPRESSION: No DVT within the bilateral lower extremities. Electronically signed by: Elmer Dixon MD 12/10/24 22:21 PM Chest CTA 12/10/24 13:12 CT angio chest PE protocol CT DOSE: 783.48 mGy.cm HISTORY: PE. Shortness of breath; history of PE TECHNIQUE: Multiple CTA images of the chest were obtained after the intravenous administration of 89 ml Optiray. Coronal and sagittal MIPS were obtained from the axial data set and were submitted for review. All measurements were obtained according to NASCET criteria. A dose lowering technique was utilized adhering to the principles of ALARA. COMPARISON STUDY: 10/13/2023 FINDINGS: There is no evidence of acute pulmonary embolism. There are multiple bilateral foci of airspace consolidation involving all lobes of both lungs. There is underlying emphysema. There are trace bilateral pleural effusions. The upper airway is unremarkable. There is no aortic aneurysm. There is extensive coronary artery calcification. There is no pericardial effusion. IMPRESSION: No evidence of acute pulmonary embolism. Widespread, multifocal airspace opacities consistent with infectious or inflammatory process. ACT 112: Negative or not required by law. The above report was generated using voice recognition software. It may contain grammatical, syntax or spelling errors. Electronically signed by: Lakisha Doyle M.D. 12/10/2024 3:07 PM Chest X-Ray 12/11/24 14:51 INDICATION: Shortness of breath TECHNIQUE: Frontal radiograph of the chest. COMPARISON: Radiograph from 2 days ago FINDINGS: Cardiomegaly. Low inspiratory depth. Multifocal interstitial opacities appear unchanged. No pneumothorax. Small pleural effusions. No acute fracture. Right-sided dialysis catheter again noted. IMPRESSION: No significant interval change allowing for differences in technique. Electronically signed by Charles Bailey 12-11-2024 3:10 PM Medications Administered Current Inpatient Medications Acetaminophen (Acetaminophen 500 Mg Tab) 500 mg PO Q6H PRN PRN Reason: fever/pain Stop: 12/19/24 03:54 Last Admin: 11/29/24 22:35 Dose: 500 mg Albuterol (Albut/Ipratrop 3mg/0.5mg Neb 3 Ml Vial) 3 ml NEB Q4R PRN; Protocol PRN Reason: Shortness Of Breath Or Wheezing Stop: 01/05/25 09:01 Last Admin: 12/10/24 10:22 Dose: 3 ml Amiodarone HCl (Amiodarone 200 Mg Tab) 200 mg PO DAILY JULIANNA Stop: 12/19/24 08:59 Last Admin: 12/13/24 08:04 Dose: 200 mg Dextrose (Dextrose 50% 50 Ml Syringe) 25 - 50 ml IV UD PRN; Protocol PRN Reason: Hypoglycemia Protocol Stop: 12/23/24 20:58 Docusate Sodium (Docusate Sodium 100 Mg Cap) 100 mg PO BID [facility] Stop: 12/19/24 08:59 Last Admin: 12/13/24 20:23 Dose: Not Given Glucagon (Glucagon For Inj 1 Mg Vial) 1 mg SQ UD PRN; Protocol PRN Reason: Hypoglycemia Protocol Stop: 12/23/24 20:58 Glucose (Glucose 40% Gel 15 Gm Tube) 15 - 30 gm PO UD PRN; Protocol PRN Reason: Hypoglycemia Protocol Stop: 12/23/24 20:58 Glucose (Glucose 10 Tab/Tube) 4 - 8 tab PO UD PRN; Protocol PRN Reason: Hypoglycemia Protocol Stop: 12/23/24 20:58 Guaifenesin/Dextromethorphan (Guaifenesin/Dextrom Syrup 100mg/10mg 5ml Udc) 5 ml PO Q6H PRN PRN Reason: Cough Stop: 12/20/24 22:05 Last Admin: 11/22/24 08:33 Dose: 5 ml Promethazine HCl (Phenergan) 6.25 mg in 50.25 mls @ 201 mls/hr IV Q6H PRN PRN Reason: Nausea And Vomiting Stop: 12/19/24 03:55 Insulin Aspart (Insulin Aspart Per Unit Charge) 0 units SC ACHS [facility] Stop: 01/09/25 11:59 Last Admin: 12/13/24 20:25 Dose: Not Given Lactobacillus Acidophilus (Advanced Probiotic 625 Mg Capsule) 1,250 mg PO DAILY [facility] Stop: 12/19/24 08:59 Last Admin: 11/27/24 09:00 Dose: 1,250 mg Lactobacillus Acidophilus (Lactobacillus Acidophilus 1 Gm Pack) 1 packet PO TIDM JULIANNA Stop: 12/27/24 16:59 Last Admin: 12/13/24 16:08 Dose: 1 packet Levalbuterol HCl (Levalbuterol 1.25 Mg/3 Ml Neb) 1.25 mg NEB Q4H PRN PRN Reason: Shortness Of Breath Or Wheezin Stop: 12/20/24 22:05 Last Admin: 11/21/24 22:57 Dose: 1.25 mg Lidocaine (Lidocaine 5% 1 Patch) 1 patch TD QAM [facility] Stop: 12/20/24 16:44 Last Admin: 12/13/24 08:08 Dose: 1 patch Loperamide HCl (Loperamide Hcl 2 Mg Cap) 2 mg PO Q4H PRN PRN Reason: Diarrhea Stop: 12/28/24 11:28 Last Admin: 12/01/24 06:13 Dose: 2 mg Metoprolol Tartrate (Metoprolol Tartrate 25 Mg Tab) 25 mg PO BID [facility] Stop: 01/09/25 20:59 Last Admin: 12/13/24 21:28 Dose: 25 mg Midodrine (Midodrine Hcl 2.5 Mg Tab) 2.5 mg PO TID@0800,1200,1700 [facility] Stop: 12/19/24 07:59 Last Admin: 12/13/24 16:07 Dose: 2.5 mg Midodrine (Midodrine Hcl 2.5 Mg Tab) 2.5 mg PO DAILY@0800 [facility] Stop: 01/12/25 09:44 Last Admin: 12/13/24 11:14 Dose: 2.5 mg Miscellaneous (Remove Lidoderm Patch) 1 each N/A DAILY@2100 [facility] Stop: 12/20/24 20:59 Last Admin: 12/13/24 21:28 Dose: 1 each Miscellaneous (Carbohydrates For Hypoglycemia ) 15 - 30 gm PO UD PRN PRN Reason: Hypoglycemia Protocol Stop: 12/23/24 20:58 Last Admin: 12/02/24 14:15 Dose: 30 gm Miscellaneous Information (Pharmacy Glycemic Mgmt Consult) 1 each N/A UD PRN; Protocol PRN Reason: Consult Stop: 12/24/24 00:07 Pantoprazole Sodium (Pantoprazole 40 Mg Tab) 40 mg PO DAILY [facility] Stop: 12/19/24 08:59 Last Admin: 12/13/24 08:03 Dose: 40 mg Polyethylene Glycol (Polyethylene (Miralax) 17 Gm Pack) 17 gm PO DAILY PRN PRN Reason: constipation Stop: 12/19/24 06:03 Potassium Chloride (Potassium Chloride Crtab 20 Meq Tabcr) 40 meq PO QAM [facility] Stop: 01/03/25 08:59 Last Admin: 12/13/24 08:06 Dose: 40 meq Sodium Chloride (Sodium Chlor 7% 4 Ml Neb) 4 ml NEB BIDR PRN PRN Reason: sputum induction Stop: 12/22/24 18:59 Vitamin B Complex/Folic Acid (Nephrocaps) 1 cap PO DAILY [facility] Stop: 12/19/24 08:59 Last Admin: 12/13/24 08:03 Dose: 1 cap Warfarin Sodium (Warfarin Sod 0.5 Mg Tab) 0.5 mg PO DAILY@1600 [facility] Stop: 01/11/25 15:59 Last Admin: 12/13/24 16:07 Dose: 0.5 mg Warfarin Sodium (Warfarin Sod 1 Mg Tab) 1 mg PO DAILY@1600 [facility] Stop: 01/11/25 15:59 Last Admin: 12/13/24 16:07 Dose: 1 mg PG Care Time/CCT Total # of Minutes Spent Total Time Spent with Patient: Total time spent is greater than 50% in coordination of care (as documented) at patient's floor/unit and/or counseling patient: [place] [address] Inpt Consult Level 1 Patient Type New History Problem Focused Exam Problem Focused Medical Decision Making Low Complexity Diagnoses Palliative care by specialist Z51.5 Counseling regarding goals of care Z71.89
--- NOTE | 2024-12-14 08:17 | XRay Report ---
EXAM: XR KUB/Abdomen 1 view CLINICAL HISTORY: eval for fluid, for pD cath placement. TECHNIQUE: X-ray image of the abdomen obtained in 1 frontal view. COMPARISON: Prior CT dated 10/16/2024 for comparison. FINDINGS: Gas Pattern: Gas pattern within the abdomen is normal. No evidence of bowel obstruction or distention. Soft Tissues: Soft tissues of the abdomen appear normal without evidence of masses. Liver, spleen, and kidneys are of normal size and position. Few foci of calcifications in right paraspinal region at L1 level and phleboliths in the pelvis. Atherosclerotic wall calcifications in bilateral iliac vessels. Spondylotic changes in lumbar spine. Tube artifacts in lower abdomen and pelvis. No significant interval changes. IMPRESSION: 1. No acute abnormalities were identified. 2. Few foci of calcifications in the right paraspinal region at the L1 level and phleboliths in the pelvis. 3. Atherosclerotic wall calcifications in bilateral iliac vessels. 4. Spondylotic changes in lumbar spine. 5. Tube artifacts in lower abdomen and pelvis. 6. No significant interval changes. Electronically signed by Torie Merino 12-14-2024 08:17 AM
[2024-12-14] MEDS: MIDODRINE HCL 2.5 MG TAB PO PRN (08:36)
[2024-12-14 08:44] LABS: Hematocrit (blood only) 30.5 % (42.0-52.0); Hemoglobin 9.7 g/dl (14.0-18.0); Mean Corpuscular Hgb Conc 31.8 g/dL (32.0-36.0); Mean Platelet Volume 11.4 fL (9.4-12.4); Nucleated RBC # (auto) 0.05 K/uL (0.00-0.12); Nucleated RBC % (auto) 0.5 %; Platelet Count 145 K/uL (130-400); RDW Coefficient of Variation 17.6 % (11.5-14.5); RDW Standard Deviation 55.8 fL (36.4-46.3); Red Blood Count 3.35 M/uL (4.70-6.10); White Blood Count 9.32 K/ul (4.8-10.8)
[2024-12-14 08:45] LABS: BUN Creatinine Ratio 5.9 (10-20); Creatinine Clr Calc Pharmacy 21.7 ml/min; Potassium 4.8 mmol/L (3.5-5.1)
[2024-12-14 08:49] LABS: INR 1.5 (0.9-1.1); Prothrombin Time 15.8 Seconds (9.0-12.0)
--- NOTE | 2024-12-14 09:08 | Palliative Care Progress Note ---
Date of Service December 15, 2024 Assessment & Plan Admission and Anticipated Discharge Date Admission Date: November 19, 2024 Results & Data Vital Signs (Past 12 Hours) Vital Signs Temp Pulse Pulse Pulse Resp BP BP 12/14/24 07:02 36.5 C 76 18 113/73 12/14/24 03:17 36.2 C L 72 18 111/67 12/13/24 23:38 36.3 C L 75 18 113/66 12/13/24 22:43 81 12/13/24 21:27 85 109/62 Pulse Ox O2 Del Method O2 Flow Rate 12/14/24 07:02 92 Nasal Cannula 4 12/14/24 03:17 89 L Nasal Cannula 5.0 12/13/24 23:38 91 Nasal Cannula 5 12/13/24 22:43 12/13/24 21:27 PG Care Time/CCT Total # of Minutes Spent Total Time Spent with Patient: Total time spent is greater than 50% in coordination of care (as documented) at patient's floor/unit and/or counseling patient: Coding
[2024-12-14] MEDS: IRON SUCROSE 100 MG in SYRINGE 0 ML IV ONE (09:39)
[2024-12-14] MEDS: HEPARIN SOD (PORCINE) 1000 UNIT/ML IV ONE (09:43)
--- NOTE | 2024-12-14 12:26 | Dialysis Progress Note ---
Date of Service December 14, 2024 Assessment & Plan (1) ESRD (end stage renal disease) on dialysis: Plan: ESRD currently on HD, with known LVOT obstruction, making fluid removal VERY touchy -eval daily for short dialysis w/ gentle /conservative fluid removal goals HD has been limited by hypotension > gave extra midodrine dose prior to tx -also ran it on cold temp 35.5 Did well yesterday and today w/ very conservative UF venofer w/ HD today for T sat 16% on 12/13; hgb 9.7 today Next HD tomorrow per routine >>>If HD runs well tomorrow reasonable to consider original plan of d/c to [facility] for [facility]hab w/ HD by teams that know him well and communicate w/ OP PD team regularly. No PD at Care or anywhere else in this region w/ his level of rehab needs unfortunately. Cautiously hopeful that he will tolerate HD GOAL for dialysis modalities is HD for rehab and PD after that/on return home; all of that said he is very debilitated and has challenges -- lung scarring, hypoxia which may well be chronic now, LVOT obstruction -- which affect his prognosis and clinical course Care coordinated w/ Dr Aguirre re dialysis modality, schedule, d/c dispo; we are in agreement (2) Peritoneal dialysis status: Plan: last PD was approx one week ago > dialysis nurse ONLY to manipulate PD catheter or dressings PD dressing change 12/13 PD flushed 12/14 >>will need weekly dressing changes and flushes of PD catheter TO BE DONE BY PD nurse only at d/c (3) Accident due to mechanical fall without injury: Plan: Continue PT and then rehab as feasible (4) Hyperkalemia: Plan: k 6.4 yesterday; K supplements stopped; would not consider resuming until /unless he returns to PD (5) 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 using computer, remembered his password for this; no worse breathing; eating best he can he tells me Review of Systems 2 Review of Systems: All systems reviewed & are unremarkable except as noted in Subjective Physical Exam 2 Constitutional: well developed, well nourished, + frail appearing and cooperative; no acute distress and no altered mental status Eyes: EOM intact bilaterally ENMT: Mouth: + dry oral mucous membranes Respiratory: normal respiratory effort and able to speak in complete sentences; no labored breathing, no cough and not tachypneic Auscultation: + diminished lung sounds (extremely); no crackles (not heard on ant exam on HD) Cardiovascular: Rate/Rhythm: regular rate and regular rhythm Heart Sounds: + murmur Extremities: no edema Gastrointestinal (Abdomen): Inspection/Auscultation: normal bowel sounds and + abdominal surgical drain present (PD catheter) Percussion/Palpation: abdomen soft; abdomen nontender Musculoskeletal: Extremities: strength 5/5 throughout Skin: no rashes, warm and dry Results & Data Vital Signs (Past 12 Hours) Vital Signs Temp Pulse Pulse Resp BP BP BP 12/14/24 11:49 36.3 C L 74 19 105/60 12/14/24 11:40 36.3 C L 71 103/60 12/14/24 11:20 72 91/54 L 12/14/24 11:00 71 93/56 L 12/14/24 10:41 12/14/24 10:40 70 99/59 L 12/14/24 10:20 71 92/55 L 12/14/24 10:00 70 92/60 L 12/14/24 09:40 71 90/50 L 12/14/24 09:30 71 100/53 L 12/14/24 09:00 72 117/67 12/14/24 08:57 36.6 C 73 12/14/24 07:02 36.5 C 76 18 113/73 12/14/24 05:51 71 12/14/24 03:17 36.2 C L 72 18 111/67 Pulse Ox O2 Del Method O2 Flow Rate 12/14/24 11:49 90 Nasal Cannula 4 12/14/24 11:40 12/14/24 11:20 12/14/24 11:00 12/14/24 10:41 Nasal Cannula 3 12/14/24 10:40 12/14/24 10:20 12/14/24 10:00 12/14/24 09:40 12/14/24 09:30 12/14/24 09:00 12/14/24 08:57 12/14/24 07:02 92 Nasal Cannula 4 12/14/24 05:51 12/14/24 03:17 89 L Nasal Cannula 5.0 Laboratory Results 12/14/24 07:27 12/14/24 07:27
[2024-12-14] MEDS: HEPARIN SOD (PORCINE) 1000 UNIT/ML IV SCH (13:37)
--- NOTE | 2024-12-14 17:10 | Hospitalist Progress Note ---
Date of Service December 14, 2024 Assessment & Plan (1) Acute hypoxic respiratory failure: Plan: (1) Acute hypoxic respiratory failure: Plan: (1) Encephalopathy: Plan 79-year-old male with PMH of PE/A-fib on Coumadin, hypertrophic CM, CAD, PVD, hypotension on midodrine, COPD/RLD, ESRD on PD, esophageal achalasia, cirrhosis, prostate cancer status post surgery, MGUS, chronic anemia [baseline hemoglobin of 10-11], cognitive impairment, inclusion body myositis, past tobacco abuse who was recently admitted for COVID - 19 pneumonia/sp decdron Rx for 3-4 days/discharged to [facility] on room air presents w/ c/o increasing weakness, fall (no head trauma, witnessed fall). Severe sepsis-POA Bilateral pneumonia Acute metabolic encephalopathy: likely 2/2 acute illness iso underlying cognitive impairment. Acute hypoxic respiratory failure COVID-19 infection ARDS --CT chest with interval early bilateral pneumonia Compared to CT chest on 11/12 --ECHO: Mild concentric LVH. Asymmetric left ventricular hypertrophy involving the septum with maximal thickness of 2.1 cm. Outflow tract obstruction not identified. Cavity obliteration at mid ventricle. Left ventricle is hyperdynamic. EF > 70%. Aortic valve sclerosis mild, without significant aortic valve stenosis. --Peritoneal fluid analysis-no organism and wbc --Serology positive for COVID-19 --Blood cultures- negative to date Appreciate pulmonology input Completed zosyn/doxycycline course CRP trended down Completed dexamethasone 10 day treatement Continue to wean oxygen as tolerated PT recommends SNF placement 12/10 Patient developed worsening hypoxia, hypotension during hemodialysis Hemodialysis aborted Placed on BiPAP Transferred to ICU CT chest: focal pulmonary scarring 12/14 weaned off Bipap resumed 6 L of O2 via nasal cannula--> now on 4 L NC encouraged to use Incentive Spirometry, Flutter Valve Hypotension Continue midodrine Suspected dysphagia Aspiration precaution Speech eval and recs noted Troponin elevation secondary to illness in the setting of chronic kidney dysfunction, history ESRD on PD ESRD : patient transitioned from PD to HD during admission as patient will be going to SNF upon discharge (PD not done at SNF) HD catheter placed by Vascular sx during admission 12/10 HD aborted Due to hypotension, hypoxia LVOT/HCOM contributing to above Cardiology consulted- Metoprolol added 12/14 extensive discussion held with family by Nephrology decision made to continue with HD has had 2 HD since, tolerating better Hyperglycemia secondary to diabetes HbA1c 6.7 Continue insulin while hospitalized Monitor BGs H/O PE/A-fib (early TBS) On Coumadin--initially held due to supratherapeutic INR. Got Vit K on 12/02/24 Warfarin resumed. Monitro INR Continue metoprolol, amiodarone. 12/14 continue to monitor INR and adjust coumadin accordingly Other chronic medical conditions: Continue withe home meds Hypertrophic cardiomyopathy - Toprol XL changed to Metoprolol tartrate 25mg BID CAD/ PVD COPD/RLD as per records Cirrhosis on imaging from past admission Prostate cancer S/P surgery Chronic anemia, Hb stable Cognitive impairment, patient mentating well Inclusion body myositis as per records, patient to decide on steroid Rx re commendation from local neurologist following recent outpatient visit Subclinical hypothyroidism , needs repeat thyroid function test in 6 weeks as outpatient Past tobacco abuse. CODE STATUS Full code Disposition transition to SNF when cleared by Nephrology Admission and Anticipated Discharge Date Admission Date: November 19, 2024 Subjective seen resting in bed, comfortable in good spirits on 4 L NC feels fine overall breathing is ok, no cough no chest pain, dizziness, shortness of breath, palpitations no other symptoms Review of Systems Review of Systems: all noted and negative except for above Physical Exam Physical Exam: all noted and negative except for above Results & Data Results & Data Vital Signs (Past 12 Hours) Vital Signs Temp Pulse Pulse Resp BP BP BP 12/14/24 15:45 36.7 C 77 19 110/60 12/14/24 13:02 76 12/14/24 11:49 36.3 C L 74 19 105/60 12/14/24 11:40 36.3 C L 71 103/60 12/14/24 11:20 72 91/54 L 12/14/24 11:00 71 93/56 L 12/14/24 10:41 12/14/24 10:40 70 99/59 L 12/14/24 10:20 71 92/55 L 12/14/24 10:00 70 92/60 L 12/14/24 09:40 71 90/50 L 12/14/24 09:30 71 100/53 L 12/14/24 09:00 72 117/67 12/14/24 08:57 36.6 C 73 12/14/24 07:02 36.5 C 76 18 113/73 12/14/24 05:51 71 Pulse Ox O2 Del Method O2 Flow Rate 12/14/24 15:45 89 L Nasal Cannula 5 12/14/24 13:02 12/14/24 11:49 90 Nasal Cannula 4 12/14/24 11:40 12/14/24 11:20 12/14/24 11:00 12/14/24 10:41 Nasal Cannula 3 12/14/24 10:40 12/14/24 10:20 12/14/24 10:00 12/14/24 09:40 12/14/24 09:30 12/14/24 09:00 12/14/24 08:57 12/14/24 07:02 92 Nasal Cannula 4 12/14/24 05:51 all noted and reviewed including below
[2024-12-15 10:16] LABS: Hematocrit (blood only) 29.7 % (42.0-52.0); Hemoglobin 9.6 g/dl (14.0-18.0); Mean Corpuscular Hemoglobin 29.6 pg (25.0-34.0); Mean Corpuscular Hgb Conc 32.3 g/dL (32.0-36.0); Mean Corpuscular Volume 91.7 fL (80.0-100.0); Mean Platelet Volume 11.3 fL (9.4-12.4); Nucleated RBC # (auto) 0.03 K/uL (0.00-0.12); Nucleated RBC % (auto) 0.3 %; Platelet Count 181 K/uL (130-400); RDW Coefficient of Variation 16.7 % (11.5-14.5); RDW Standard Deviation 54.7 fL (36.4-46.3); Red Blood Count 3.24 M/uL (4.70-6.10); White Blood Count 10.23 K/ul (4.8-10.8)
[2024-12-15 10:27] LABS: BUN Creatinine Ratio 6.6 (10-20); Calcium 8.2 mg/dl (8.6-10.3); Creatinine Clr Calc Pharmacy 23.4 ml/min; Magnesium 1.8 mg/dl (1.7-2.4); Potassium 4.3 mmol/L (3.5-5.1)
--- NOTE | 2024-12-15 12:01 | Palliative Family Discussion ---
Date of Service December 15, 2024 Patient Directed Conference Time of Meeting: [] Participants: Kelly Bonds DNP Patient participation: [] Patient Support System: [] Other Healthcare Provider Participation: None Meeting Location: [] Advanced Directive available: [Yes/No] If yes, descriptors: The patient's surrogate medical decision maker participated: [] Legally authorized health care proxy: [] Other surrogate: [] A family meeting was held for JIGNESH BIRD. This meeting was necessary for determining the appropriate course of treatment. Topics of Discussion Topics of Discussion: 1. Severe sepsis, Bilateral pneumonia, Acute metabolic encephalopathy: likely 2/2 acute illness iso underlying cognitive impairment, acute hypoxic respiratory failure due to +COVID-19 infection complicated by ARDS. ARDS improved, now on 4lpm. 2. Nursing shares he has been sundowning in evenings: last night he attempted to manually disimpacted himself and had feces everywhere. PMH of PE/A-fib on Coumadin, hypertrophic CM, CAD, PVD, hypotension on midodrine, COPD/RLD, ESRD on PD, esophageal achalasia, cirrhosis, prostate cancer status post surgery, MGUS, chronic anemia [baseline hemoglobin of 10-11], cognitive impairment, inclusion body myositis, past tobacco abuse who was recently admitted for COVID - 19 pneumonia/sp decdron Rx for 3-4 days/discharged to [facility] on room air presents w/ c/o increasing weakness, fall (no head trauma, witnessed fall). 3. Long time patient of Dr Galvan, started HD Other Content of Meetin. Opportunity given for participants to speak and ask questions. 2. Participants were assured of attention to patient comfort. 3. Reassurance provided. 4. Support was provided for informed, good-evie decisions. 5. Emotions expressed by family were acknowledged and addressed. 6. Plan of Care: []
--- NOTE | 2024-12-15 14:22 | Dialysis Progress Note ---
Date of Service December 15, 2024 Assessment & Plan (1) ESRD (end stage renal disease) on dialysis: Plan: ESRD currently on HD, with known LVOT obstruction, making fluid removal VERY touchy -eval daily for short dialysis w/ gentle /conservative fluid removal goals HD has been limited by hypotension > gave extra midodrine dose prior to tx 2.5 mg -also running on cold temp 35.5 Did well yesterday and today w/ very conservative UF venofer w/ HD today for T sat 16% on 12/13; hgb 9.6 today Next HD 12/17 per routine >>>If HD runs well today reasonable to pursue original plan of d/c to [facility] for rehab w/ HD by teams that know him well and communicate w/ OP PD team regularly. No PD at [facility] or anywhere else in this region w/ his level of rehab needs unfortunately. Cautiously hopeful that he will tolerate HD GOAL for dialysis modalities is HD for rehab and PD after that/on return home; all of that said he is very debilitated and has challenges -- lung scarring, hypoxia which may well be chronic now, LVOT obstruction -- which affect his prognosis and clinical course Care coordinated w/ Dr Douglas re dialysis today & d/c dispo; we are in agreement (2) Peritoneal dialysis status: Plan: last PD was approx one week ago > dialysis nurse ONLY to manipulate PD catheter or dressings PD dressing change 12/13; 12/15 PD flushed 12/14 >>will need weekly dressing changes and flushes of PD catheter TO BE DONE BY PD nurse only at d/c (3) Accident due to mechanical fall without injury: Plan: Continue PT and then rehab as feasible (4) Hyperkalemia: Plan: k 6.4 on 12/13; K supplements stopped; would not consider resuming until /unless he returns to PD (5) 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 feels reasonabley well; on 4L NC; interested in watching TV (RN reports first time in 1 mo he does this); doing PT, moving bowels, eating Review of Systems 2 Review of Systems: All systems reviewed & are unremarkable except as noted in Subjective Physical Exam 2 Constitutional: well developed, well nourished, + frail appearing and cooperative; no acute distress and no altered mental status Eyes: EOM intact bilaterally ENMT: Mouth: + dry oral mucous membranes Respiratory: normal respiratory effort and able to speak in complete sentences; no labored breathing, no cough and not tachypneic Auscultation: + diminished lung sounds (extremely); no crackles (not heard on ant exam on HD) Cardiovascular: Rate/Rhythm: regular rate and regular rhythm Heart Sounds: + murmur Extremities: no edema Gastrointestinal (Abdomen): Inspection/Auscultation: normal bowel sounds and + abdominal surgical drain present (PD catheter) Percussion/Palpation: abdomen soft; abdomen nontender Musculoskeletal: Extremities: strength 5/5 throughout Skin: no rashes, warm and dry Results & Data Vital Signs (Past 12 Hours) Vital Signs Temp Pulse Pulse Resp BP Pulse Ox O2 Del Method 12/15/24 12:20 36.6 C 68 20 112/70 92 Nasal Cannula 12/15/24 10:01 Nasal Cannula 12/15/24 08:16 36.5 C 76 20 116/69 93 Nasal Cannula 12/15/24 06:28 96 Nasal Cannula 12/15/24 05:40 74 12/15/24 03:15 36.4 C L 79 18 122/67 90 Nasal Cannula O2 Flow Rate 12/15/24 12:20 4 12/15/24 10:01 4 12/15/24 08:16 4 12/15/24 06:28 4 12/15/24 05:40 12/15/24 03:15 5 Laboratory Results 12/15/24 09:16 12/15/24 09:12
--- NOTE | 2024-12-15 14:34 | Pharmacy Report ---
Pharmacy Glycemic Sign Off Nt - Date of Service December 15, 2024 - Assessment & Plan ASSESSMENT: * Pharmacy was consulted by Dr Washington on 11/23/24 for glycemic control and to write orders per [facility] inpatient glycemic control protocol. * Major changes made by pharmacy to antidiabetic regimen include: * Patient not on any glycemic medications at home. Novolog SS utilized while admitted * Patient has been receiving/requiring very minimal (0-7 units) of insulin per day for adequate glycemic control * BSGs ranging 96-168 mg/dl * Regimen has only required minor adjustments over the past 48hrs to achieve this level of control * Do not anticipate further changes in patient status that would quickly deteriorate glycemic control (i.e. patient to be NPO for upcoming procedure, steroids tapering, starting tube feedings, etc). * Please see recommendations for outpatient antidiabetic regimen below. PLAN FOR INPATIENT GLYCEMIC CONTROL: No changes needed to current regimen. * No basal insulin * Continue NovoLog per scale ACHS/Q6hrs while NPO * Goal range = 110- 140 mg/dl * CF = 35 mg/dl/unit * CR = 1 unit for ever 10 g CHO consumed * Pharmacy is signing off of glycemic consult and will no longer be making ad justments to inpatient regimen. Please feel free to re-consult if needed. Thank you.
--- NOTE | 2024-12-15 15:30 | Palliative Care Progress Note ---
Date of Service December 15, 2024 Assessment & Plan (1) Generalized weakness: (2) Advanced care planning/counseling discussion: Plan: Family did not arrive for family meeting, I waited on the unit from 1145 to 1245pm. (3) Palliative care by specialist: (4) Sundowning: Plan As above Thank you for allowing us to participate in the ongoing care of this patient. Please page with any additional concerns. Russell Bonds DNP Director, Palliative Medicine Admission and Anticipated Discharge Date Admission Date: November 19, 2024 Subjective 1. Severe sepsis, Bilateral pneumonia, Acute metabolic encephalopathy: likely 2/2 acute illness iso underlying cognitive impairment, acute hypoxic respiratory failure due to +COVID-19 infection complicated by ARDS. ARDS improved, now on 4lpm. 2. Nursing shares he has been sundowning in evenings: last night he attempted to manually disimpacted himself and had feces everywhere. PMH of PE/A-fib on Coumadin, hypertrophic CM, CAD, PVD, hypotension on midodrine, COPD/RLD, ESRD on PD, esophageal achalasia, cirrhosis, prostate cancer status post surgery, MGUS, chronic anemia [baseline hemoglobin of 10-11], cognitive impairment, inclusion body myositis, past tobacco abuse who was recently admitted for COVID - 19 pneumonia/sp decdron Rx for 3-4 days/discharged to [facility] on room air presents w/ c/o increasing weakness, fall (no head trauma, witnessed fall). 3. Long time patient of Dr Galvan, started HD Review of Systems Review of Systems: All systems reviewed & are unremarkable except as noted in Subjective Physical Exam Constitutional: well developed, well nourished, + ill appearing and comfortable; no acute distress Eyes: PERRL, conjunctivae normal, anicteric sclerae ENMT: external ear and nose normal, oropharynx normal Neck: trachea midline, no thyromegaly Respiratory: normal respiratory effort, lungs clear to auscultation Musculoskeletal: GARCIA with strength and purpose, generalized weakness noted. Neurologic: moves all extremities, awake and + confused Results & Data Vital Signs (Past 12 Hours) Vital Signs Temp Pulse Pulse Resp BP BP Pulse Ox 12/15/24 15:00 90 110/66 12/15/24 14:30 77 110/57 L 12/15/24 14:00 74 119/53 L 12/15/24 13:42 71 106/58 L 12/15/24 13:39 36.5 C 73 12/15/24 12:20 36.6 C 68 20 112/70 92 12/15/24 10:01 12/15/24 08:16 36.5 C 76 20 116/69 93 12/15/24 06:28 96 12/15/24 05:40 74 O2 Del Method O2 Flow Rate 12/15/24 15:00 12/15/24 14:30 12/15/24 14:00 12/15/24 13:42 12/15/24 13:39 12/15/24 12:20 Nasal Cannula 4 12/15/24 10:01 Nasal Cannula 4 12/15/24 08:16 Nasal Cannula 4 12/15/24 06:28 Nasal Cannula 4 12/15/24 05:40 Laboratory Results 12/16/24 12/16/24 12/16/24 Range/Units 11:58 07:29 04:57 WBC 8.71 (4.8-10.8) K/ul RBC 3.11 L (4.70-6.10) M/uL Hgb 9.1 L (14.0-18.0) g/dl Hct 28.2 L (42.0-52.0) % MCV 90.7 (80.0-100.0) fL MCH 29.3 (25.0-34.0) pg MCHC 32.3 (32.0-36.0) g/dL RDW Std Deviation 57.1 H (36.4-46.3) fL RDW Coeff of Maureen 17.8 H (11.5-14.5) % Plt Count 176 (130-400) K/uL MPV 11.2 (9.4-12.4) fL Immature Gran % (Auto) % Neut % (Auto) % Lymph % (Auto) % [place] % (Auto) % Eos % (Auto) % Baso % (Auto) % Neut # (Auto) (1.40-6.50) K/uL Lymph # (Auto) (1.20-3.40) K/uL [place] # (Auto) (0.11-0.59) K/uL Eos # (Auto) (0.00-0.50) K/uL Baso # (Auto) (0.00-0.20) K/uL Immature Gran # (Auto) (0.01-0.20) K/uL Absolute Nucleated RBC (0.00-0.12) K/uL Nucleated RBC % (auto) % PT 14.5 H (9.0-12.0) Seconds INR 1.4 H (0.9-1.1) VBG pH (7.36-7.41) VBG pCO2 (38-50) mmHg VBG pO2 mmHg VBG HCO3 mmol/L VBG O2 Saturation % VBG Base Excess mEq/L Sodium 138 (136-145) mmol/L Potassium 3.7 (3.5-5.1) mmol/L Chloride 103 (98-107) mmol/L Carbon Dioxide 31 (21-32) mmol/L Anion Gap 4 (3-11) BUN 14 (6-23) mg/dl Creatinine 2.37 H D (0.6-1.4) mg/dl Est Cr Clr Drug Dosing 28.2 ml/min eGFR 27.35 BUN/Creatinine Ratio 5.9 L (10-20) Glucose 108 H (70-99(Fasting)) mg/dl POC Glucose 267 H 107 H (70-99) mg/dl Calcium 8.3 L (8.6-10.3) mg/dl Phosphorus (2.5-4.9) mg/dl Magnesium (1.7-2.4) mg/dl Iron (35-175) mcg/dl TIBC (250-450) mcg/dl Transferrin (200-360) mg/dl Transferrin % Sat (20-50) % Total Bilirubin (0.2-1.0) mg/dl AST (13-39) U/L ALT (7-52) U/L Alkaline Phosphatase (34-104) U/L Troponin I High Sens (0-20) pg/ml Total Protein (6.0-8.3) gm/dl Albumin (3.4-5.0) gm/dl Globulin (2.5-4.0) gm/dl Albumin/Globulin Ratio (0.9-2) Lipase (11-82) U/L Nasal Screen MRSA (PCR) (Negative) Adenovirus (PCR) (NotDetected) B. pertussis DNA (PCR) (NotDetected) B.parapertussis DNA PCR (NotDetected) C. pneumoniae DNA (PCR) (NotDetected) Coronavirus OC43 (PCR) (NotDetected) Coronavirus HKU1 (PCR) (NotDetected) Coronavirus 229E (PCR) (NotDetected) SARS-CoV-2 (PCR) (NotDetected) Coronavirus NL63 (PCR) (NotDetected) Human Metapneumovir PCR (NotDetected) Influenza Type A (PCR) (NotDetected) Influenza Type B (PCR) (NotDetected) M. pneumoniae (PCR) (NotDetected) Parainfluenza 1 (PCR) (NotDetected) Parainfluenza 2 (PCR) (NotDetected) Parainfluenza 3 (PCR) (NotDetected) Parainfluenza 4 (PCR) (NotDetected) RSV (PCR) (NotDetected) Entero/Rhino (PCR) (NotDetected) 12/15/24 12/15/24 12/15/24 Range/Units 22:42 20:55 17:31 WBC (4.8-10.8) K/ul RBC (4.70-6.10) M/uL Hgb (14.0-18.0) g/dl Hct (42.0-52.0) % MCV (80.0-100.0) fL MCH (25.0-34.0) pg MCHC (32.0-36.0) g/dL RDW Std Deviation (36.4-46.3) fL RDW Coeff of Maureen (11.5-14.5) % Plt Count (130-400) K/uL MPV (9.4-12.4) fL Immature Gran % (Auto) % Neut % (Auto) % Lymph % (Auto) % [place] % (Auto) % Eos % (Auto) % Baso % (Auto) % Neut # (Auto) (1.40-6.50) K/uL Lymph # (Auto) (1.20-3.40) K/uL [place] # (Auto) (0.11-0.59) K/uL Eos # (Auto) (0.00-0.50) K/uL Baso # (Auto) (0.00-0.20) K/uL Immature Gran # (Auto) (0.01-0.20) K/uL Absolute Nucleated RBC (0.00-0.12) K/uL Nucleated RBC % (auto) % PT (9.0-12.0) Seconds INR (0.9-1.1) VBG pH 7.45 H (7.36-7.41) VBG pCO2 43 (38-50) mmHg VBG pO2 37 mmHg VBG HCO3 30 mmol/L VBG O2 Saturation 66.1 % VBG Base Excess 5.2 mEq/L Sodium (136-145) mmol/L Potassium (3.5-5.1) mmol/L Chloride (98-107) mmol/L Carbon Dioxide (21-32) mmol/L Anion Gap (3-11) BUN (6-23) mg/dl Creatinine (0.6-1.4) mg/dl Est Cr Clr Drug Dosing ml/min eGFR BUN/Creatinine Ratio (10-20) Glucose (70-99(Fasting)) mg/dl POC Glucose 145 H 96 (70-99) mg/dl Calcium (8.6-10.3) mg/dl Phosphorus (2.5-4.9) mg/dl Magnesium (1.7-2.4) mg/dl Iron (35-175) mcg/dl TIBC (250-450) mcg/dl Transferrin (200-360) mg/dl Transferrin % Sat (20-50) % Total Bilirubin (0.2-1.0) mg/dl AST (13-39) U/L ALT (7-52) U/L Alkaline Phosphatase (34-104) U/L Troponin I High Sens (0-20) pg/ml Total Protein (6.0-8.3) gm/dl Albumin (3.4-5.0) gm/dl Globulin (2.5-4.0) gm/dl Albumin/Globulin Ratio (0.9-2) Lipase (11-82) U/L Nasal Screen MRSA (PCR) (Negative) Adenovirus (PCR) (NotDetected) B. pertussis DNA (PCR) (NotDetected) B.parapertussis DNA PCR (NotDetected) C. pneumoniae DNA (PCR) (NotDetected) Coronavirus OC43 (PCR) (NotDetected) Coronavirus HKU1 (PCR) (NotDetected) Coronavirus 229E (PCR) (NotDetected) SARS-CoV-2 (PCR) (NotDetected) Coronavirus NL63 (PCR) (NotDetected) Human Metapneumovir PCR (NotDetected) Influenza Type A (PCR) (NotDetected) Influenza Type B (PCR) (NotDetected) M. pneumoniae (PCR) (NotDetected) Parainfluenza 1 (PCR) (NotDetected) Parainfluenza 2 (PCR) (NotDetected) Parainfluenza 3 (PCR) (NotDetected) Parainfluenza 4 (PCR) (NotDetected) RSV (PCR) (NotDetected) Entero/Rhino (PCR) (NotDetected) 12/15/24 12/15/24 12/15/24 Range/Units 11:56 09:16 09:12 WBC 10.23 (4.8-10.8) K/ul RBC 3.24 L (4.70-6.10) M/uL Hgb 9.6 L (14.0-18.0) g/dl Hct 29.7 L (42.0-52.0) % MCV 91.7 (80.0-100.0) fL MCH 29.6 (25.0-34.0) pg MCHC 32.3 (32.0-36.0) g/dL RDW Std Deviation 54.7 H (36.4-46.3) fL RDW Coeff of Maureen 16.7 H (11.5-14.5) % Plt Count 181 (130-400) K/uL MPV 11.3 (9.4-12.4) fL Immature Gran % (Auto) % Neut % (Auto) % Lymph % (Auto) % [place] % (Auto) % Eos % (Auto) % Baso % (Auto) % Neut # (Auto) (1.40-6.50) K/uL Lymph # (Auto) (1.20-3.40) K/uL [place] # (Auto) (0.11-0.59) K/uL Eos # (Auto) (0.00-0.50) K/uL Baso # (Auto) (0.00-0.20) K/uL Immature Gran # (Auto) (0.01-0.20) K/uL Absolute Nucleated RBC 0.03 (0.00-0.12) K/uL Nucleated RBC % (auto) 0.3 % PT (9.0-12.0) Seconds INR (0.9-1.1) VBG pH (7.36-7.41) VBG pCO2 (38-50) mmHg VBG pO2 mmHg VBG HCO3 mmol/L VBG O2 Saturation % VBG Base Excess mEq/L Sodium 138 (136-145) mmol/L Potassium 4.3 (3.5-5.1) mmol/L Chloride 103 (98-107) mmol/L Carbon Dioxide 31 (21-32) mmol/L Anion Gap 4 (3-11) BUN 19 (6-23) mg/dl Creatinine 2.86 H (0.6-1.4) mg/dl Est Cr Clr Drug Dosing 23.4 ml/min eGFR 21.83 BUN/Creatinine Ratio 6.6 L (10-20) Glucose 132 H (70-99(Fasting)) mg/dl POC Glucose 119 H (70-99) mg/dl Calcium 8.2 L (8.6-10.3) mg/dl Phosphorus 2.0 L (2.5-4.9) mg/dl Magnesium 1.8 (1.7-2.4) mg/dl Iron (35-175) mcg/dl TIBC (250-450) mcg/dl Transferrin (200-360) mg/dl Transferrin % Sat (20-50) % Total Bilirubin (0.2-1.0) mg/dl AST (13-39) U/L ALT (7-52) U/L Alkaline Phosphatase (34-104) U/L Troponin I High Sens (0-20) pg/ml Total Protein (6.0-8.3) gm/dl Albumin (3.4-5.0) gm/dl Globulin (2.5-4.0) gm/dl Albumin/Globulin Ratio (0.9-2) Lipase (11-82) U/L Nasal Screen MRSA (PCR) (Negative) Adenovirus (PCR) (NotDetected) B. pertussis DNA (PCR) (NotDetected) B.parapertussis DNA PCR (NotDetected) C. pneumoniae DNA (PCR) (NotDetected) Coronavirus OC43 (PCR) (NotDetected) Coronavirus HKU1 (PCR) (NotDetected) Coronavirus 229E (PCR) (NotDetected) SARS-CoV-2 (PCR) (NotDetected) Coronavirus NL63 (PCR) (NotDetected) Human Metapneumovir PCR (NotDetected) Influenza Type A (PCR) (NotDetected) Influenza Type B (PCR) (NotDetected) M. pneumoniae (PCR) (NotDetected) Parainfluenza 1 (PCR) (NotDetected) Parainfluenza 2 (PCR) (NotDetected) Parainfluenza 3 (PCR) (NotDetected) Parainfluenza 4 (PCR) (NotDetected) RSV (PCR) (NotDetected) Entero/Rhino (PCR) (NotDetected) 12/15/24 12/14/24 12/14/24 Range/Units 07:15 20:27 17:09 WBC (4.8-10.8) K/ul RBC (4.70-6.10) M/uL Hgb (14.0-18.0) g/dl Hct (42.0-52.0) % MCV (80.0-100.0) fL MCH (25.0-34.0) pg MCHC (32.0-36.0) g/dL RDW Std Deviation (36.4-46.3) fL RDW Coeff of Maureen (11.5-14.5) % Plt Count (130-400) K/uL MPV (9.4-12.4) fL Immature Gran % (Auto) % Neut % (Auto) % Lymph % (Auto) % [place] % (Auto) % Eos % (Auto) % Baso % (Auto) % Neut # (Auto) (1.40-6.50) K/uL Lymph # (Auto) (1.20-3.40) K/uL [place] # (Auto) (0.11-0.59) K/uL Eos # (Auto) (0.00-0.50) K/uL Baso # (Auto) (0.00-0.20) K/uL Immature Gran # (Auto) (0.01-0.20) K/uL Absolute Nucleated RBC (0.00-0.12) K/uL Nucleated RBC % (auto) % PT (9.0-12.0) Seconds INR (0.9-1.1) VBG pH (7.36-7.41) VBG pCO2 (38-50) mmHg VBG pO2 mmHg VBG HCO3 mmol/L VBG O2 Saturation % VBG Base Excess mEq/L Sodium (136-145) mmol/L Potassium (3.5-5.1) mmol/L Chloride (98-107) mmol/L Carbon Dioxide (21-32) mmol/L Anion Gap (3-11) BUN (6-23) mg/dl Creatinine (0.6-1.4) mg/dl Est Cr Clr Drug Dosing ml/min eGFR BUN/Creatinine Ratio (10-20) Glucose (70-99(Fasting)) mg/dl POC Glucose 135 H 168 H 133 H (70-99) mg/dl Calcium (8.6-10.3) mg/dl Phosphorus (2.5-4.9) mg/dl Magnesium (1.7-2.4) mg/dl Iron (35-175) mcg/dl TIBC (250-450) mcg/dl Transferrin (200-360) mg/dl Transferrin % Sat (20-50) % Total Bilirubin (0.2-1.0) mg/dl AST (13-39) U/L ALT (7-52) U/L Alkaline Phosphatase (34-104) U/L Troponin I High Sens (0-20) pg/ml Total Protein (6.0-8.3) gm/dl Albumin (3.4-5.0) gm/dl Globulin (2.5-4.0) gm/dl Albumin/Globulin Ratio (0.9-2) Lipase (11-82) U/L Nasal Screen MRSA (PCR) (Negative) Adenovirus (PCR) (NotDetected) B. pertussis DNA (PCR) (NotDetected) B.parapertussis DNA PCR (NotDetected) C. pneumoniae DNA (PCR) (NotDetected) Coronavirus OC43 (PCR) (NotDetected) Coronavirus HKU1 (PCR) (NotDetected) Coronavirus 229E (PCR) (NotDetected) SARS-CoV-2 (PCR) (NotDetected) Coronavirus NL63 (PCR) (NotDetected) Human Metapneumovir PCR (NotDetected) Influenza Type A (PCR) (NotDetected) Influenza Type B (PCR) (NotDetected) M. pneumoniae (PCR) (NotDetected) Parainfluenza 1 (PCR) (NotDetected) Parainfluenza 2 (PCR) (NotDetected) Parainfluenza 3 (PCR) (NotDetected) Parainfluenza 4 (PCR) (NotDetected) RSV (PCR) (NotDetected) Entero/Rhino (PCR) (NotDetected) 12/14/24 12/14/24 12/14/24 Range/Units 11:48 08:01 07:27 WBC 9.32 (4.8-10.8) K/ul RBC 3.35 L (4.70-6.10) M/uL Hgb 9.7 L (14.0-18.0) g/dl Hct 30.5 L (42.0-52.0) % MCV 91.0 (80.0-100.0) fL MCH 29.0 (25.0-34.0) pg MCHC 31.8 L (32.0-36.0) g/dL RDW Std Deviation 55.8 H (36.4-46.3) fL RDW Coeff of Maureen 17.6 H (11.5-14.5) % Plt Count 145 (130-400) K/uL MPV 11.4 (9.4-12.4) fL Immature Gran % (Auto) % Neut % (Auto) % Lymph % (Auto) % [place] % (Auto) % Eos % (Auto) % Baso % (Auto) % Neut # (Auto) (1.40-6.50) K/uL Lymph # (Auto) (1.20-3.40) K/uL [place] # (Auto) (0.11-0.59) K/uL Eos # (Auto) (0.00-0.50) K/uL Baso # (Auto) (0.00-0.20) K/uL Immature Gran # (Auto) (0.01-0.20) K/uL Absolute Nucleated RBC 0.05 (0.00-0.12) K/uL Nucleated RBC % (auto) 0.5 % PT (9.0-12.0) Seconds INR (0.9-1.1) VBG pH (7.36-7.41) VBG pCO2 (38-50) mmHg VBG pO2 mmHg VBG HCO3 mmol/L VBG O2 Saturation % VBG Base Excess mEq/L Sodium 137 (136-145) mmol/L Potassium 4.8 D (3.5-5.1) mmol/L Chloride 102 (98-107) mmol/L Carbon Dioxide 32 (21-32) mmol/L Anion Gap 3 (3-11) BUN 18 (6-23) mg/dl Creatinine 3.06 H D (0.6-1.4) mg/dl Est Cr Clr Drug Dosing 21.7 ml/min eGFR 20.13 BUN/Creatinine Ratio 5.9 L (10-20) Glucose 101 H (70-99(Fasting)) mg/dl POC Glucose 115 H 116 H (70-99) mg/dl Calcium 8.0 L (8.6-10.3) mg/dl Phosphorus (2.5-4.9) mg/dl Magnesium (1.7-2.4) mg/dl Iron (35-175) mcg/dl TIBC (250-450) mcg/dl Transferrin (200-360) mg/dl Transferrin % Sat (20-50) % Total Bilirubin (0.2-1.0) mg/dl AST (13-39) U/L ALT (7-52) U/L Alkaline Phosphatase (34-104) U/L Troponin I High Sens (0-20) pg/ml Total Protein (6.0-8.3) gm/dl Albumin (3.4-5.0) gm/dl Globulin (2.5-4.0) gm/dl Albumin/Globulin Ratio (0.9-2) Lipase (11-82) U/L Nasal Screen MRSA (PCR) (Negative) Adenovirus (PCR) (NotDetected) B. pertussis DNA (PCR) (NotDetected) B.parapertussis DNA PCR (NotDetected) C. pneumoniae DNA (PCR) (NotDetected) Coronavirus OC43 (PCR) (NotDetected) Coronavirus HKU1 (PCR) (NotDetected) Coronavirus 229E (PCR) (NotDetected) SARS-CoV-2 (PCR) (NotDetected) Coronavirus NL63 (PCR) (NotDetected) Human Metapneumovir PCR (NotDetected) Influenza Type A (PCR) (NotDetected) Influenza Type B (PCR) (NotDetected) M. pneumoniae (PCR) (NotDetected) Parainfluenza 1 (PCR) (NotDetected) Parainfluenza 2 (PCR) (NotDetected) Parainfluenza 3 (PCR) (NotDetected) Parainfluenza 4 (PCR) (NotDetected) RSV (PCR) (NotDetected) Entero/Rhino (PCR) (NotDetected) 12/14/24 12/13/24 12/13/24 Range/Units 07:23 20:23 15:47 WBC (4.8-10.8) K/ul RBC (4.70-6.10) M/uL Hgb (14.0-18.0) g/dl Hct (42.0-52.0) % MCV (80.0-100.0) fL MCH (25.0-34.0) pg MCHC (32.0-36.0) g/dL RDW Std Deviation (36.4-46.3) fL RDW Coeff of Maureen (11.5-14.5) % Plt Count (130-400) K/uL MPV (9.4-12.4) fL Immature Gran % (Auto) % Neut % (Auto) % Lymph % (Auto) % [place] % (Auto) % Eos % (Auto) % Baso % (Auto) % Neut # (Auto) (1.40-6.50) K/uL Lymph # (Auto) (1.20-3.40) K/uL [place] # (Auto) (0.11-0.59) K/uL Eos # (Auto) (0.00-0.50) K/uL Baso # (Auto) (0.00-0.20) K/uL Immature Gran # (Auto) (0.01-0.20) K/uL Absolute Nucleated RBC (0.00-0.12) K/uL Nucleated RBC % (auto) % PT 15.8 H (9.0-12.0) Seconds INR 1.5 H (0.9-1.1) VBG pH (7.36-7.41) VBG pCO2 (38-50) mmHg VBG pO2 mmHg VBG HCO3 mmol/L VBG O2 Saturation % VBG Base Excess mEq/L Sodium (136-145) mmol/L Potassium (3.5-5.1) mmol/L Chloride (98-107) mmol/L Carbon Dioxide (21-32) mmol/L Anion Gap (3-11) BUN (6-23) mg/dl Creatinine (0.6-1.4) mg/dl Est Cr Clr Drug Dosing ml/min eGFR BUN/Creatinine Ratio (10-20) Glucose (70-99(Fasting)) mg/dl POC Glucose 131 H 96 (70-99) mg/dl Calcium (8.6-10.3) mg/dl Phosphorus (2.5-4.9) mg/dl Magnesium (1.7-2.4) mg/dl Iron (35-175) mcg/dl TIBC (250-450) mcg/dl Transferrin (200-360) mg/dl Transferrin % Sat (20-50) % Total Bilirubin (0.2-1.0) mg/dl AST (13-39) U/L ALT (7-52) U/L Alkaline Phosphatase (34-104) U/L Troponin I High Sens (0-20) pg/ml Total Protein (6.0-8.3) gm/dl Albumin (3.4-5.0) gm/dl Globulin (2.5-4.0) gm/dl Albumin/Globulin Ratio (0.9-2) Lipase (11-82) U/L Nasal Screen MRSA (PCR) (Negative) Adenovirus (PCR) (NotDetected) B. pertussis DNA (PCR) (NotDetected) B.parapertussis DNA PCR (NotDetected) C. pneumoniae DNA (PCR) (NotDetected) Coronavirus OC43 (PCR) (NotDetected) Coronavirus HKU1 (PCR) (NotDetected) Coronavirus 229E (PCR) (NotDetected) SARS-CoV-2 (PCR) (NotDetected) Coronavirus NL63 (PCR) (NotDetected) Human Metapneumovir PCR (NotDetected) Influenza Type A (PCR) (NotDetected) Influenza Type B (PCR) (NotDetected) M. pneumoniae (PCR) (NotDetected) Parainfluenza 1 (PCR) (NotDetected) Parainfluenza 2 (PCR) (NotDetected) Parainfluenza 3 (PCR) (NotDetected) Parainfluenza 4 (PCR) (NotDetected) RSV (PCR) (NotDetected) Entero/Rhino (PCR) (NotDetected) 12/13/24 12/13/24 12/13/24 Range/Units 09:46 08:01 05:55 WBC 11.52 H (4.8-10.8) K/ul RBC 3.49 L (4.70-6.10) M/uL Hgb 10.2 L (14.0-18.0) g/dl Hct 31.7 L (42.0-52.0) % MCV 90.8 (80.0-100.0) fL MCH 29.2 (25.0-34.0) pg MCHC 32.2 (32.0-36.0) g/dL RDW Std Deviation 54.7 H (36.4-46.3) fL RDW Coeff of Maureen 17.2 H (11.5-14.5) % Plt Count 142 (130-400) K/uL MPV 11.1 (9.4-12.4) fL Immature Gran % (Auto) % Neut % (Auto) % Lymph % (Auto) % [place] % (Auto) % Eos % (Auto) % Baso % (Auto) % Neut # (Auto) (1.40-6.50) K/uL Lymph # (Auto) (1.20-3.40) K/uL [place] # (Auto) (0.11-0.59) K/uL Eos # (Auto) (0.00-0.50) K/uL Baso # (Auto) (0.00-0.20) K/uL Immature Gran # (Auto) (0.01-0.20) K/uL Absolute Nucleated RBC 0.02 (0.00-0.12) K/uL Nucleated RBC % (auto) 0.2 % PT 16.1 H (9.0-12.0) Seconds INR 1.5 H (0.9-1.1) VBG pH (7.36-7.41) VBG pCO2 (38-50) mmHg VBG pO2 mmHg VBG HCO3 mmol/L VBG O2 Saturation % VBG Base Excess mEq/L Sodium 136 (136-145) mmol/L Potassium 6.4 H* D (3.5-5.1) mmol/L Chloride 103 (98-107) mmol/L Carbon Dioxide 29 (21-32) mmol/L Anion Gap 4 (3-11) BUN 29 H (6-23) mg/dl Creatinine 4.59 H* D (0.6-1.4) mg/dl Est Cr Clr Drug Dosing 14.2 ml/min eGFR 12.37 BUN/Creatinine Ratio 6.3 L (10-20) Glucose 129 H (70-99(Fasting)) mg/dl POC Glucose 123 H (70-99) mg/dl Calcium 8.7 (8.6-10.3) mg/dl Phosphorus (2.5-4.9) mg/dl Magnesium 1.8 (1.7-2.4) mg/dl Iron 22 L (35-175) mcg/dl TIBC 136 L (250-450) mcg/dl Transferrin 97 L (200-360) mg/dl Transferrin % Sat 16 L (20-50) % Total Bilirubin (0.2-1.0) mg/dl AST (13-39) U/L ALT (7-52) U/L Alkaline Phosphatase (34-104) U/L Troponin I High Sens (0-20) pg/ml Total Protein (6.0-8.3) gm/dl Albumin (3.4-5.0) gm/dl Globulin (2.5-4.0) gm/dl Albumin/Globulin Ratio (0.9-2) Lipase (11-82) U/L Nasal Screen MRSA (PCR) (Negative) Adenovirus (PCR) (NotDetected) B. pertussis DNA (PCR) (NotDetected) B.parapertussis DNA PCR (NotDetected) C. pneumoniae DNA (PCR) (NotDetected) Coronavirus OC43 (PCR) (NotDetected) Coronavirus HKU1 (PCR) (NotDetected) Coronavirus 229E (PCR) (NotDetected) SARS-CoV-2 (PCR) (NotDetected) Coronavirus NL63 (PCR) (NotDetected) Human Metapneumovir PCR (NotDetected) Influenza Type A (PCR) (NotDetected) Influenza Type B (PCR) (NotDetected) M. pneumoniae (PCR) (NotDetected) Parainfluenza 1 (PCR) (NotDetected) Parainfluenza 2 (PCR) (NotDetected) Parainfluenza 3 (PCR) (NotDetected) Parainfluenza 4 (PCR) (NotDetected) RSV (PCR) (NotDetected) Entero/Rhino (PCR) (NotDetected) 12/12/24 12/12/24 12/12/24 Range/Units 19:56 16:01 10:45 WBC (4.8-10.8) K/ul RBC (4.70-6.10) M/uL Hgb (14.0-18.0) g/dl Hct (42.0-52.0) % MCV (80.0-100.0) fL MCH (25.0-34.0) pg MCHC (32.0-36.0) g/dL RDW Std Deviation (36.4-46.3) fL RDW Coeff of Maureen (11.5-14.5) % Plt Count (130-400) K/uL MPV (9.4-12.4) fL Immature Gran % (Auto) % Neut % (Auto) % Lymph % (Auto) % [place] % (Auto) % Eos % (Auto) % Baso % (Auto) % Neut # (Auto) (1.40-6.50) K/uL Lymph # (Auto) (1.20-3.40) K/uL [place] # (Auto) (0.11-0.59) K/uL Eos # (Auto) (0.00-0.50) K/uL Baso # (Auto) (0.00-0.20) K/uL Immature Gran # (Auto) (0.01-0.20) K/uL Absolute Nucleated RBC (0.00-0.12) K/uL Nucleated RBC % (auto) % PT (9.0-12.0) Seconds INR (0.9-1.1) VBG pH (7.36-7.41) VBG pCO2 (38-50) mmHg VBG pO2 mmHg VBG HCO3 mmol/L VBG O2 Saturation % VBG Base Excess mEq/L Sodium (136-145) mmol/L Potassium (3.5-5.1) mmol/L Chloride (98-107) mmol/L Carbon Dioxide (21-32) mmol/L Anion Gap (3-11) BUN (6-23) mg/dl Creatinine (0.6-1.4) mg/dl Est Cr Clr Drug Dosing ml/min eGFR BUN/Creatinine Ratio (10-20) Glucose (70-99(Fasting)) mg/dl POC Glucose 128 H 143 H 132 H (70-99) mg/dl Calcium (8.6-10.3) mg/dl Phosphorus (2.5-4.9) mg/dl Magnesium (1.7-2.4) mg/dl Iron (35-175) mcg/dl TIBC (250-450) mcg/dl Transferrin (200-360) mg/dl Transferrin % Sat (20-50) % Total Bilirubin (0.2-1.0) mg/dl AST (13-39) U/L ALT (7-52) U/L Alkaline Phosphatase (34-104) U/L Troponin I High Sens (0-20) pg/ml Total Protein (6.0-8.3) gm/dl Albumin (3.4-5.0) gm/dl Globulin (2.5-4.0) gm/dl Albumin/Globulin Ratio (0.9-2) Lipase (11-82) U/L Nasal Screen MRSA (PCR) (Negative) Adenovirus (PCR) (NotDetected) B. pertussis DNA (PCR) (NotDetected) B.parapertussis DNA PCR (NotDetected) C. pneumoniae DNA (PCR) (NotDetected) Coronavirus OC43 (PCR) (NotDetected) Coronavirus HKU1 (PCR) (NotDetected) Coronavirus 229E (PCR) (NotDetected) SARS-CoV-2 (PCR) (NotDetected) Coronavirus NL63 (PCR) (NotDetected) Human Metapneumovir PCR (NotDetected) Influenza Type A (PCR) (NotDetected) Influenza Type B (PCR) (NotDetected) M. pneumoniae (PCR) (NotDetected) Parainfluenza 1 (PCR) (NotDetected) Parainfluenza 2 (PCR) (NotDetected) Parainfluenza 3 (PCR) (NotDetected) Parainfluenza 4 (PCR) (NotDetected) RSV (PCR) (NotDetected) Entero/Rhino (PCR) (NotDetected) 12/12/24 12/12/24 12/11/24 Range/Units 07:12 04:46 20:22 WBC 11.74 H (4.8-10.8) K/ul RBC 3.34 L (4.70-6.10) M/uL Hgb 9.9 L (14.0-18.0) g/dl Hct 30.3 L (42.0-52.0) % MCV 90.7 (80.0-100.0) fL MCH 29.6 (25.0-34.0) pg MCHC 32.7 (32.0-36.0) g/dL RDW Std Deviation 54.0 H (36.4-46.3) fL RDW Coeff of Maureen 16.8 H (11.5-14.5) % Plt Count 136 (130-400) K/uL MPV 11.4 (9.4-12.4) fL Immature Gran % (Auto) 0.9 % Neut % (Auto) 83.7 % Lymph % (Auto) 5.7 % [place] % (Auto) 5.9 % Eos % (Auto) 3.5 % Baso % (Auto) 0.3 % Neut # (Auto) 9.84 H (1.40-6.50) K/uL Lymph # (Auto) 0.67 L (1.20-3.40) K/uL [place] # (Auto) 0.69 H (0.11-0.59) K/uL Eos # (Auto) 0.41 (0.00-0.50) K/uL Baso # (Auto) 0.03 (0.00-0.20) K/uL Immature Gran # (Auto) 0.10 (0.01-0.20) K/uL Absolute Nucleated RBC 0.02 (0.00-0.12) K/uL Nucleated RBC % (auto) 0.2 % PT 13.9 H (9.0-12.0) Seconds INR 1.3 H (0.9-1.1) VBG pH (7.36-7.41) VBG pCO2 (38-50) mmHg VBG pO2 mmHg VBG HCO3 mmol/L VBG O2 Saturation % VBG Base Excess mEq/L Sodium 139 (136-145) mmol/L Potassium 5.1 (3.5-5.1) mmol/L Chloride 105 (98-107) mmol/L Carbon Dioxide 30 (21-32) mmol/L Anion Gap 4 (3-11) BUN 16 (6-23) mg/dl Creatinine 2.84 H D (0.6-1.4) mg/dl Est Cr Clr Drug Dosing 22.9 ml/min eGFR 22.01 BUN/Creatinine Ratio 5.6 L (10-20) Glucose 97 (70-99(Fasting)) mg/dl POC Glucose 110 H 106 H (70-99) mg/dl Calcium 8.7 (8.6-10.3) mg/dl Phosphorus 2.1 L (2.5-4.9) mg/dl Magnesium 1.9 (1.7-2.4) mg/dl Iron (35-175) mcg/dl TIBC (250-450) mcg/dl Transferrin (200-360) mg/dl Transferrin % Sat (20-50) % Total Bilirubin (0.2-1.0) mg/dl AST (13-39) U/L ALT (7-52) U/L Alkaline Phosphatase (34-104) U/L Troponin I High Sens (0-20) pg/ml Total Protein (6.0-8.3) gm/dl Albumin (3.4-5.0) gm/dl Globulin (2.5-4.0) gm/dl Albumin/Globulin Ratio (0.9-2) Lipase (11-82) U/L Nasal Screen MRSA (PCR) (Negative) Adenovirus (PCR) (NotDetected) B. pertussis DNA (PCR) (NotDetected) B.parapertussis DNA PCR (NotDetected) C. pneumoniae DNA (PCR) (NotDetected) Coronavirus OC43 (PCR) (NotDetected) Coronavirus HKU1 (PCR) (NotDetected) Coronavirus 229E (PCR) (NotDetected) SARS-CoV-2 (PCR) (NotDetected) Coronavirus NL63 (PCR) (NotDetected) Human Metapneumovir PCR (NotDetected) Influenza Type A (PCR) (NotDetected) Influenza Type B (PCR) (NotDetected) M. pneumoniae (PCR) (NotDetected) Parainfluenza 1 (PCR) (NotDetected) Parainfluenza 2 (PCR) (NotDetected) Parainfluenza 3 (PCR) (NotDetected) Parainfluenza 4 (PCR) (NotDetected) RSV (PCR) (NotDetected) Entero/Rhino (PCR) (NotDetected) 12/11/24 12/11/24 12/11/24 Range/Units 15:53 11:01 07:27 WBC (4.8-10.8) K/ul RBC (4.70-6.10) M/uL Hgb (14.0-18.0) g/dl Hct (42.0-52.0) % MCV (80.0-100.0) fL MCH (25.0-34.0) pg MCHC (32.0-36.0) g/dL RDW Std Deviation (36.4-46.3) fL RDW Coeff of Maureen (11.5-14.5) % Plt Count (130-400) K/uL MPV (9.4-12.4) fL Immature Gran % (Auto) % Neut % (Auto) % Lymph % (Auto) % [place] % (Auto) % Eos % (Auto) % Baso % (Auto) % Neut # (Auto) (1.40-6.50) K/uL Lymph # (Auto) (1.20-3.40) K/uL [place] # (Auto) (0.11-0.59) K/uL Eos # (Auto) (0.00-0.50) K/uL Baso # (Auto) (0.00-0.20) K/uL Immature Gran # (Auto) (0.01-0.20) K/uL Absolute Nucleated RBC (0.00-0.12) K/uL Nucleated RBC % (auto) % PT (9.0-12.0) Seconds INR (0.9-1.1) VBG pH (7.36-7.41) VBG pCO2 (38-50) mmHg VBG pO2 mmHg VBG HCO3 mmol/L VBG O2 Saturation % VBG Base Excess mEq/L Sodium (136-145) mmol/L Potassium (3.5-5.1) mmol/L Chloride (98-107) mmol/L Carbon Dioxide (21-32) mmol/L Anion Gap (3-11) BUN (6-23) mg/dl Creatinine (0.6-1.4) mg/dl Est Cr Clr Drug Dosing ml/min eGFR BUN/Creatinine Ratio (10-20) Glucose (70-99(Fasting)) mg/dl POC Glucose 131 H 146 H 118 H (70-99) mg/dl Calcium (8.6-10.3) mg/dl Phosphorus (2.5-4.9) mg/dl Magnesium (1.7-2.4) mg/dl Iron (35-175) mcg/dl TIBC (250-450) mcg/dl Transferrin (200-360) mg/dl Transferrin % Sat (20-50) % Total Bilirubin (0.2-1.0) mg/dl AST (13-39) U/L ALT (7-52) U/L Alkaline Phosphatase (34-104) U/L Troponin I High Sens (0-20) pg/ml Total Protein (6.0-8.3) gm/dl Albumin (3.4-5.0) gm/dl Globulin (2.5-4.0) gm/dl Albumin/Globulin Ratio (0.9-2) Lipase (11-82) U/L Nasal Screen MRSA (PCR) (Negative) Adenovirus (PCR) (NotDetected) B. pertussis DNA (PCR) (NotDetected) B.parapertussis DNA PCR (NotDetected) C. pneumoniae DNA (PCR) (NotDetected) Coronavirus OC43 (PCR) (NotDetected) Coronavirus HKU1 (PCR) (NotDetected) Coronavirus 229E (PCR) (NotDetected) SARS-CoV-2 (PCR) (NotDetected) Coronavirus NL63 (PCR) (NotDetected) Human Metapneumovir PCR (NotDetected) Influenza Type A (PCR) (NotDetected) Influenza Type B (PCR) (NotDetected) M. pneumoniae (PCR) (NotDetected) Parainfluenza 1 (PCR) (NotDetected) Parainfluenza 2 (PCR) (NotDetected) Parainfluenza 3 (PCR) (NotDetected) Parainfluenza 4 (PCR) (NotDetected) RSV (PCR) (NotDetected) Entero/Rhino (PCR) (NotDetected) 12/11/24 12/10/24 12/10/24 Range/Units 05:09 20:51 16:21 WBC 13.49 H (4.8-10.8) K/ul RBC 3.30 L (4.70-6.10) M/uL Hgb 9.8 L (14.0-18.0) g/dl Hct 29.3 L (42.0-52.0) % MCV 88.8 (80.0-100.0) fL MCH 29.7 (25.0-34.0) pg MCHC 33.4 (32.0-36.0) g/dL RDW Std Deviation 52.0 H (36.4-46.3) fL RDW Coeff of Maureen 16.3 H (11.5-14.5) % Plt Count 145 (130-400) K/uL MPV 11.0 (9.4-12.4) fL Immature Gran % (Auto) 0.6 % Neut % (Auto) 88.9 % Lymph % (Auto) 3.2 % [place] % (Auto) 4.7 % Eos % (Auto) 2.4 % Baso % (Auto) 0.2 % Neut # (Auto) 12.00 H (1.40-6.50) K/uL Lymph # (Auto) 0.43 L (1.20-3.40) K/uL [place] # (Auto) 0.63 H (0.11-0.59) K/uL Eos # (Auto) 0.32 (0.00-0.50) K/uL Baso # (Auto) 0.03 (0.00-0.20) K/uL Immature Gran # (Auto) 0.08 (0.01-0.20) K/uL Absolute Nucleated RBC (0.00-0.12) K/uL Nucleated RBC % (auto) % PT 15.1 H (9.0-12.0) Seconds INR 1.4 H (0.9-1.1) VBG pH (7.36-7.41) VBG pCO2 (38-50) mmHg VBG pO2 mmHg VBG HCO3 mmol/L VBG O2 Saturation % VBG Base Excess mEq/L Sodium 136 (136-145) mmol/L Potassium 4.8 (3.5-5.1) mmol/L Chloride 103 (98-107) mmol/L Carbon Dioxide 30 (21-32) mmol/L Anion Gap 3 (3-11) BUN 26 H (6-23) mg/dl Creatinine 3.71 H D (0.6-1.4) mg/dl Est Cr Clr Drug Dosing 17.2 ml/min eGFR 15.98 BUN/Creatinine Ratio 7.0 L (10-20) Glucose 140 H (70-99(Fasting)) mg/dl POC Glucose 125 H 129 H (70-99) mg/dl Calcium 8.6 (8.6-10.3) mg/dl Phosphorus 2.3 L (2.5-4.9) mg/dl Magnesium 1.7 (1.7-2.4) mg/dl Iron (35-175) mcg/dl TIBC (250-450) mcg/dl Transferrin (200-360) mg/dl Transferrin % Sat (20-50) % Total Bilirubin (0.2-1.0) mg/dl AST (13-39) U/L ALT (7-52) U/L Alkaline Phosphatase (34-104) U/L Troponin I High Sens (0-20) pg/ml Total Protein (6.0-8.3) gm/dl Albumin (3.4-5.0) gm/dl Globulin (2.5-4.0) gm/dl Albumin/Globulin Ratio (0.9-2) Lipase (11-82) U/L Nasal Screen MRSA (PCR) (Negative) Adenovirus (PCR) (NotDetected) B. pertussis DNA (PCR) (NotDetected) B.parapertussis DNA PCR (NotDetected) C. pneumoniae DNA (PCR) (NotDetected) Coronavirus OC43 (PCR) (NotDetected) Coronavirus HKU1 (PCR) (NotDetected) Coronavirus 229E (PCR) (NotDetected) SARS-CoV-2 (PCR) (NotDetected) Coronavirus NL63 (PCR) (NotDetected) Human Metapneumovir PCR (NotDetected) Influenza Type A (PCR) (NotDetected) Influenza Type B (PCR) (NotDetected) M. pneumoniae (PCR) (NotDetected) Parainfluenza 1 (PCR) (NotDetected) Parainfluenza 2 (PCR) (NotDetected) Parainfluenza 3 (PCR) (NotDetected) Parainfluenza 4 (PCR) (NotDetected) RSV (PCR) (NotDetected) Entero/Rhino (PCR) (NotDetected) 12/10/24 12/10/24 12/10/24 Range/Units 12:18 12:15 12:05 WBC (4.8-10.8) K/ul RBC (4.70-6.10) M/uL Hgb (14.0-18.0) g/dl Hct (42.0-52.0) % MCV (80.0-100.0) fL MCH (25.0-34.0) pg MCHC (32.0-36.0) g/dL RDW Std Deviation (36.4-46.3) fL RDW Coeff of Maureen (11.5-14.5) % Plt Count (130-400) K/uL MPV (9.4-12.4) fL Immature Gran % (Auto) % Neut % (Auto) % Lymph % (Auto) % [place] % (Auto) % Eos % (Auto) % Baso % (Auto) % Neut # (Auto) (1.40-6.50) K/uL Lymph # (Auto) (1.20-3.40) K/uL [place] # (Auto) (0.11-0.59) K/uL Eos # (Auto) (0.00-0.50) K/uL Baso # (Auto) (0.00-0.20) K/uL Immature Gran # (Auto) (0.01-0.20) K/uL Absolute Nucleated RBC (0.00-0.12) K/uL Nucleated RBC % (auto) % PT (9.0-12.0) Seconds INR (0.9-1.1) VBG pH (7.36-7.41) VBG pCO2 (38-50) mmHg VBG pO2 mmHg VBG HCO3 mmol/L VBG O2 Saturation % VBG Base Excess mEq/L Sodium 139 (136-145) mmol/L Potassium 5.0 (3.5-5.1) mmol/L Chloride 102 (98-107) mmol/L Carbon Dioxide 27 (21-32) mmol/L Anion Gap 10 (3-11) BUN 16 (6-23) mg/dl Creatinine 2.73 H (0.6-1.4) mg/dl Est Cr Clr Drug Dosing 23.4 ml/min eGFR 23.08 BUN/Creatinine Ratio 5.9 L (10-20) Glucose 113 H (70-99(Fasting)) mg/dl POC Glucose 101 H (70-99) mg/dl Calcium 8.6 (8.6-10.3) mg/dl Phosphorus (2.5-4.9) mg/dl Magnesium (1.7-2.4) mg/dl Iron (35-175) mcg/dl TIBC (250-450) mcg/dl Transferrin (200-360) mg/dl Transferrin % Sat (20-50) % Total Bilirubin 0.6 (0.2-1.0) mg/dl AST 45 H (13-39) U/L ALT 9 (7-52) U/L Alkaline Phosphatase 122 H (34-104) U/L Troponin I High Sens 42.6 H (0-20) pg/ml Total Protein 5.6 L (6.0-8.3) gm/dl Albumin 2.7 L (3.4-5.0) gm/dl Globulin 2.9 (2.5-4.0) gm/dl Albumin/Globulin Ratio 0.9 (0.9-2) Lipase 44 (11-82) U/L Nasal Screen MRSA (PCR) Negative (Negative) Adenovirus (PCR) Not Detected (NotDetected) B. pertussis DNA (PCR) Not Detected (NotDetected) B.parapertussis DNA PCR Not Detected (NotDetected) C. pneumoniae DNA (PCR) Not Detected (NotDetected) Coronavirus OC43 (PCR) Not Detected (NotDetected) Coronavirus HKU1 (PCR) Not Detected (NotDetected) Coronavirus 229E (PCR) Not Detected (NotDetected) SARS-CoV-2 (PCR) DETECTED A (NotDetected) Coronavirus NL63 (PCR) Not Detected (NotDetected) Human Metapneumovir PCR Not Detected (NotDetected) Influenza Type A (PCR) Not Detected (NotDetected) Influenza Type B (PCR) Not Detected (NotDetected) M. pneumoniae (PCR) Not Detected (NotDetected) Parainfluenza 1 (PCR) Not Detected (NotDetected) Parainfluenza 2 (PCR) Not Detected (NotDetected) Parainfluenza 3 (PCR) Not Detected (NotDetected) Parainfluenza 4 (PCR) Not Detected (NotDetected) RSV (PCR) Not Detected (NotDetected) Entero/Rhino (PCR) Not Detected (NotDetected) 12/10/24 12/10/24 12/09/24 Range/Units 07:51 07:23 20:08 WBC (4.8-10.8) K/ul RBC (4.70-6.10) M/uL Hgb (14.0-18.0) g/dl Hct (42.0-52.0) % MCV (80.0-100.0) fL MCH (25.0-34.0) pg MCHC (32.0-36.0) g/dL RDW Std Deviation (36.4-46.3) fL RDW Coeff of Maureen (11.5-14.5) % Plt Count (130-400) K/uL MPV (9.4-12.4) fL Immature Gran % (Auto) % Neut % (Auto) % Lymph % (Auto) % [place] % (Auto) % Eos % (Auto) % Baso % (Auto) % Neut # (Auto) (1.40-6.50) K/uL Lymph # (Auto) (1.20-3.40) K/uL [place] # (Auto) (0.11-0.59) K/uL Eos # (Auto) (0.00-0.50) K/uL Baso # (Auto) (0.00-0.20) K/uL Immature Gran # (Auto) (0.01-0.20) K/uL Absolute Nucleated RBC (0.00-0.12) K/uL Nucleated RBC % (auto) % PT 12.7 H (9.0-12.0) Seconds INR 1.2 H (0.9-1.1) VBG pH (7.36-7.41) VBG pCO2 (38-50) mmHg VBG pO2 mmHg VBG HCO3 mmol/L VBG O2 Saturation % VBG Base Excess mEq/L Sodium (136-145) mmol/L Potassium (3.5-5.1) mmol/L Chloride (98-107) mmol/L Carbon Dioxide (21-32) mmol/L Anion Gap (3-11) BUN (6-23) mg/dl Creatinine (0.6-1.4) mg/dl Est Cr Clr Drug Dosing ml/min eGFR BUN/Creatinine Ratio (10-20) Glucose (70-99(Fasting)) mg/dl POC Glucose 89 97 (70-99) mg/dl Calcium (8.6-10.3) mg/dl Phosphorus (2.5-4.9) mg/dl Magnesium (1.7-2.4) mg/dl Iron (35-175) mcg/dl TIBC (250-450) mcg/dl Transferrin (200-360) mg/dl Transferrin % Sat (20-50) % Total Bilirubin (0.2-1.0) mg/dl AST (13-39) U/L ALT (7-52) U/L Alkaline Phosphatase (34-104) U/L Troponin I High Sens (0-20) pg/ml Total Protein (6.0-8.3) gm/dl Albumin (3.4-5.0) gm/dl Globulin (2.5-4.0) gm/dl Albumin/Globulin Ratio (0.9-2) Lipase (11-82) U/L Nasal Screen MRSA (PCR) (Negative) Adenovirus (PCR) (NotDetected) B. pertussis DNA (PCR) (NotDetected) B.parapertussis DNA PCR (NotDetected) C. pneumoniae DNA (PCR) (NotDetected) Coronavirus OC43 (PCR) (NotDetected) Coronavirus HKU1 (PCR) (NotDetected) Coronavirus 229E (PCR) (NotDetected) SARS-CoV-2 (PCR) (NotDetected) Coronavirus NL63 (PCR) (NotDetected) Human Metapneumovir PCR (NotDetected) Influenza Type A (PCR) (NotDetected) Influenza Type B (PCR) (NotDetected) M. pneumoniae (PCR) (NotDetected) Parainfluenza 1 (PCR) (NotDetected) Parainfluenza 2 (PCR) (NotDetected) Parainfluenza 3 (PCR) (NotDetected) Parainfluenza 4 (PCR) (NotDetected) RSV (PCR) (NotDetected) Entero/Rhino (PCR) (NotDetected) 12/09/24 12/09/24 Range/Units 17:49 17:03 WBC (4.8-10.8) K/ul RBC (4.70-6.10) M/uL Hgb (14.0-18.0) g/dl Hct (42.0-52.0) % MCV (80.0-100.0) fL MCH (25.0-34.0) pg MCHC (32.0-36.0) g/dL RDW Std Deviation (36.4-46.3) fL RDW Coeff of Maureen (11.5-14.5) % Plt Count (130-400) K/uL MPV (9.4-12.4) fL Immature Gran % (Auto) % Neut % (Auto) % Lymph % (Auto) % [place] % (Auto) % Eos % (Auto) % Baso % (Auto) % Neut # (Auto) (1.40-6.50) K/uL Lymph # (Auto) (1.20-3.40) K/uL [place] # (Auto) (0.11-0.59) K/uL Eos # (Auto) (0.00-0.50) K/uL Baso # (Auto) (0.00-0.20) K/uL Immature Gran # (Auto) (0.01-0.20) K/uL Absolute Nucleated RBC (0.00-0.12) K/uL Nucleated RBC % (auto) % PT 12.3 H (9.0-12.0) Seconds INR 1.1 (0.9-1.1) VBG pH (7.36-7.41) VBG pCO2 (38-50) mmHg VBG pO2 mmHg VBG HCO3 mmol/L VBG O2 Saturation % VBG Base Excess mEq/L Sodium (136-145) mmol/L Potassium (3.5-5.1) mmol/L Chloride (98-107) mmol/L Carbon Dioxide (21-32) mmol/L Anion Gap (3-11) BUN (6-23) mg/dl Creatinine (0.6-1.4) mg/dl Est Cr Clr Drug Dosing ml/min eGFR BUN/Creatinine Ratio (10-20) Glucose (70-99(Fasting)) mg/dl POC Glucose 98 (70-99) mg/dl Calcium (8.6-10.3) mg/dl Phosphorus (2.5-4.9) mg/dl Magnesium (1.7-2.4) mg/dl Iron (35-175) mcg/dl TIBC (250-450) mcg/dl Transferrin (200-360) mg/dl Transferrin % Sat (20-50) % Total Bilirubin (0.2-1.0) mg/dl AST (13-39) U/L ALT (7-52) U/L Alkaline Phosphatase (34-104) U/L Troponin I High Sens (0-20) pg/ml Total Protein (6.0-8.3) gm/dl Albumin (3.4-5.0) gm/dl Globulin (2.5-4.0) gm/dl Albumin/Globulin Ratio (0.9-2) Lipase (11-82) U/L Nasal Screen MRSA (PCR) (Negative) Adenovirus (PCR) (NotDetected) B. pertussis DNA (PCR) (NotDetected) B.parapertussis DNA PCR (NotDetected) C. pneumoniae DNA (PCR) (NotDetected) Coronavirus OC43 (PCR) (NotDetected) Coronavirus HKU1 (PCR) (NotDetected) Coronavirus 229E (PCR) (NotDetected) SARS-CoV-2 (PCR) (NotDetected) Coronavirus NL63 (PCR) (NotDetected) Human Metapneumovir PCR (NotDetected) Influenza Type A (PCR) (NotDetected) Influenza Type B (PCR) (NotDetected) M. pneumoniae (PCR) (NotDetected) Parainfluenza 1 (PCR) (NotDetected) Parainfluenza 2 (PCR) (NotDetected) Parainfluenza 3 (PCR) (NotDetected) Parainfluenza 4 (PCR) (NotDetected) RSV (PCR) (NotDetected) Entero/Rhino (PCR) (NotDetected) Diagnostic Findings Chest X-Ray 11/18/24 23:56 EXAM: XR chest 1V portable CLINICAL HISTORY: cough, covid TECHNIQUE: Radiograph of chest was acquired. COMPARISON: none FINDINGS: The lungs are clear and well-expanded with no pulmonary infiltrate or pleural effusion. The cardiomediastinal silhouette is within normal limits. No acute osseous abnormality. IMPRESSION: 1. No acute cardiopulmonary disease. Electronically signed by Omkar Dye 11-19-2024 02:35 AM Pelvis X-Ray 11/18/24 23:58 EXAM: XR pelvis 1-2V routine CLINICAL HISTORY: trauma TECHNIQUE: Radiograph of pelvis was acquired. COMPARISON: none FINDINGS: No acute fracture or dislocation. The soft tissues are unremarkable. Visualized joint spaces are well maintained. IMPRESSION: 1. No acute osseous or soft tissue abnormality. Electronically signed by Omkar Dye 11-19-2024 02:[address] 11/19/24 00:13 EXAM: CT cervical spine wo con CLINICAL HISTORY: trauma TECHNIQUE: Computed tomography of the cervical spine performed without intravenous contrast. Contiguous axial images were obtained from the skull base to T2, with sagittal and coronal reformatted images reconstructed from the axial data. CT scan was performed according to ALARA (as low as reasonably achievable). COMPARISON: none FINDINGS: Loss of cervical lordotic curvature. Cervical vertebral bodies are normal in height and alignment, with no evidence of fracture or subluxation. Lateral masses of C1 are symmetrical, and the dens is intact. Prevertebral soft tissues are not widened. Small marginal osteophytes at C5 and C6. The remaining suprahyoid and infrahyoid soft tissues in the neck are unremarkable. No disc bulge, mass effect on the cord or neuroforaminal narrowing. Thyroid gland appears unremarkable. IMPRESSION: 1.No acute fracture or subluxation in the cervical spine. Electronically signed by Omkar Dye 11-19-2024 02:[address] 11/19/24 00:13 EXAM: CT head/brain wo con CLINICAL HISTORY: trauma TECHNIQUE: Multiple axial images are obtained from the skull base to the vertex without contrast. CT scan was performed according to ALARA (as low as reasonably achievable). COMPARISON: none FINDINGS: There is cerebral atrophy. Chronic lacunar infarct in right thalamus. No evidence of space occupying lesion, hemorrhage, edema, mass effect, midline shift, extra axial collection, or hydrocephalus is noted. Basal cisterns are symmetric and normal in size and configuration. There are scattered periventricular hypodensities as can be seen with chronic microvascular ischemic changes. The pinto-white matter differentiation is preserved. Visualized paranasal sinuses and mastoid air cells are well aerated. Orbital contents are within normal limits. Bony structures are intact. IMPRESSION: 1. No evidence of acute intracranial abnormality is demonstrated. 2. Chronic microvascular ischemic changes. Chronic lacunar infarct in right thalamus. 3. Cerebral atrophy. Electronically signed by Omkar Dye 11-19-2024 02:[address] 11/19/24 12:07 CT chest diagnostic wo/w con CLINICAL HISTORY: left chest pain, ro abscess/infection COMPARISON STUDY: 11/13/2024 FINDINGS: There is mild emphysema. There are interval scattered reticular and patchy groundglass opacities at the mid and lower lungs consistent with early pneumonia. No other consolidation or pleural effusion. No pneumothorax. No enlarged adenopathy. No pericardial effusion. There are diffuse coronary artery and aortic calcifications. No thoracic aortic dissection or aneurysm. No pulmonary embolism. Stable elevation of the right hemidiaphragm. No acute osseous findings. IMPRESSION: 1. Interval early bilateral pneumonia. 2. No other acute findings seen. Otherwise as described. ACT 112: Negative or not required by law. Electronically signed by: Jose Ramon Lawrence M.D. 11/19/2024 2:22 PM Chest X-Ray 11/20/24 22:06 Exam(s): XR CXR 1 VIEW EXAM: XR Chest, 1 View CLINICAL HISTORY: Reason for exam: wheezing. TECHNIQUE: Frontal view of the chest. COMPARISON: 11/19/2024. FINDINGS: There is a poor inspiratory effort. Lungs: There are mild patchy bilateral infiltrates.. Pleural space: No pleural effusion is seen. No pneumothorax. Heart: The heart appears top normal in size.. Mediastinum: There is uncoiling of thoracic aorta.. Bones/joints: There are degenerative changes in the spine.. IMPRESSION: Limited exam. There are mild patchy bilateral infiltrates. Electronically signed by: Montana Sanchez MD 11/21/24 01:01 AM Chest X-Ray 11/22/24 11:58 XR chest 1V portable CLINICAL HISTORY: increasing oxygen requirement COMPARISON STUDY: 11/20/2024 FINDINGS: Stable mild cardiomegaly with mild pulmonary vascular congestion. Inspiration is shallow. There is increased stranding opacity in the lung bases. No pleural effusion or pneumothorax seen. IMPRESSION: Increased atelectasis versus pneumonia in the lung bases. ACT 112: Negative or not required by law. Electronically signed by: Jose Ramon Lawrence M.D. 11/22/2024 12:23 PM Chest X-Ray 11/23/24 10:06 XR chest 1V portable CLINICAL HISTORY: increasing oxygen requirment COMPARISON STUDY: 11/22/2024 FINDINGS: Stable cardiomegaly without pulmonary vascular congestion. Diffuse interstitial and faint patchy pulmonary opacities most prominent at the left lung base are stable. No pleural effusion or pneumothorax. IMPRESSION: Stable exam. ACT 112: Negative or not required by law. Electronically signed by: Jose Ramon Lawrence M.D. 11/23/2024 10:36 AM Chest X-Ray 11/24/24 09:43 XR chest 1V portable CLINICAL HISTORY: f/u COMPARISON STUDY: 11/23/2024 FINDINGS: Heart size and pulmonary vasculature are normal. There is mild stranding opacity in the lung bases, improved. No pneumothorax. IMPRESSION: Mild stranding opacity in the lung bases, improved. ACT 112: Negative or not required by law. Electronically signed by: Jose Ramon Lawrence M.D. 11/24/2024 10:13 AM Chest X-Ray 11/26/24 07:00 EXAM: XR chest 1V portable CLINICAL HISTORY: Pneumonia TECHNIQUE: An X-ray image of the chest is obtained in AP projection. COMPARISON: 11/24/2024. FINDINGS: Pulmonary Parenchyma: Reduced volume of both lung willis likely expiratory study. Mild progression of previously demonstrated bilateral lower zonal mainly linear and more left patchy opacities. Redemonstrated bilateral diffuse more central prominent bronchial markings with peribronchial thickening. Redemonstrated obliterated right costophrenic recess by likely mild effusion, left side is clear. Heart and Mediastinum: Heart size cannot be properly assessed. Bony Thorax: Bony thorax appears intact without fractures or deformities. Soft Tissues: Soft tissues overlying the chest wall are unremarkable. IMPRESSION: 1. Mild progression of previously demonstrated bilateral lower zonal mainly linear and more left patchy opacities, can be pneumonic opacities. 2. Otherwise, no interval changes. Electronically signed by Torie Merino 11-26-2024 08:08 AM Chest X-Ray 11/27/24 08:01 XR chest 1V portable HISTORY: 79 years-old Male COVID acute shortness of breath COMPARISON: 11/26/2024 TECHNIQUE: AP view of the chest FINDINGS: Cardiac silhouette is enlarged. Atherosclerosis of the aorta. Pulmonary vascular congestion with interstitial coarsening redemonstrated, stable to mildly improved. Mild ill-defined linear bibasilar consolidation. Pulmonary emphysema. Possible trace pleural effusions. No pneumothorax. IMPRESSION: Cardiomegaly with stable to mildly improved appearance of the mixed interstitial and alveolar opacities. ACT 112: Negative or not required by law. The above report was generated using voice recognition software. It may contain grammatical, syntax or spelling errors. Electronically signed by: Arturo Osorio M.D. 11/27/2024 8:40 AM Chest X-Ray 11/29/24 07:00 EXAM: XR chest 1V portable CLINICAL HISTORY: Covid. TECHNIQUE: X-ray image of the chest obtained in 1 frontal projection. COMPARISON: Prior X-ray dated 11/27/2024 for comparison. FINDINGS: Pulmonary Parenchyma: Unchanged prominent bilateral parahilar markings and atelectatic bands in basal lung zones. Unchanged obscuration of right CP angle likely pleural effusion. Heart and Mediastinum: Heart size and shape are normal. No mediastinal widening or masses. No hilar or mediastinal lymphadenopathy. Bony Thorax: The bony thorax appears intact without fractures or deformities. Soft Tissues: Soft tissues overlying the chest wall are unremarkable. IMPRESSION: 1. Unchanged prominent bilateral parahilar markings and atelectatic bands in basal lung zones. 2. Unchanged obscuration of right CP angle likely pleural effusion. Electronically signed by Torie Merino 11-29-2024 08:13 AM Chest X-Ray 12/01/24 07:00 EXAM: XR chest 1V portable CLINICAL HISTORY: COVID. TECHNIQUE: An X-ray image of the chest is obtained in PA projection. COMPARISON: CR dated 11/29/2024. FINDINGS: Pulmonary Parenchyma: Stable faint reticular densities were noted at both lower lung zones. Blunting of right costophrenic angle suggests a small effusion decreased in amount since the prior study. Lungs are clear bilaterally. No evidence of consolidation, collapse, or focal opacities. No pulmonary nodules are identified. Heart and Mediastinum: Heart size and shape are normal. No mediastinal widening or masses. No hilar or mediastinal lymphadenopathy. Bony Thorax: The bony thorax appears intact without fractures or deformities. Soft Tissues: Soft tissues overlying the chest wall are unremarkable. IMPRESSION: 1. Stable faint reticular densities were noted at both lower lung zones. 2. Blunting of the right costophrenic angle suggests a small effusion decreased in amount since the prior study. 3. No other interval changes. Electronically signed by Torie Merino 12-01-2024 07:[address] 12/07/24 19:56 Exam(s): CT HEAD Without Contrast EXAM: CT Head Without Intravenous Contrast CLINICAL HISTORY: Reason for exam: AMS?. TECHNIQUE: Axial computed tomography images of the head/brain without intravenous contrast. CTDI is 64.34 mGy and DLP is 1098.96 mGy-cm. Automated exposure control was utilized for the study. A dose lowering technique was utilized adhering to the principles of ALARA. COMPARISON: 11/19/2024 FINDINGS: Artifacts: Images are slightly degraded by motion artifact. Brain: No hemorrhage, extra-axial fluid collection, mass effect, or edema. Ventricles: Unremarkable. Bones/joints: Unremarkable. No fracture. Soft tissues: Unremarkable. Sinuses: Trace fluid within the maxillary sinuses. Mastoid air cells: Unremarkable as visualized. IMPRESSION: 1. No acute intracranial abnormality. Electronically signed by: Elmer Dixon MD 12/07/24 21:34 PM Chest X-Ray 12/09/24 15:53 EXAM: Radiograph of the Chest 1 View INDICATION: Hypoxia TECHNIQUE: Frontal view of the chest. COMPARISON: 11/29/2024 FINDINGS: Lungs and pleural spaces: Increasing confluent bilateral groundglass and patchy infiltrates relatively sparing the left upper lobe. No pleural effusion or pneumothorax. Heart: Stable cardiac shadow accentuated by technique. Mediastinum: Normal contour. Bones/joints: No fracture, erosion or dislocation. Soft tissues: No abnormality noted. No radiopaque foreign body noted. Vasculature: Stable ectatic aorta. Tubes, lines and devices: Right internal jugular central venous catheter tip in the distal superior vena cava. Upper abdomen: No abnormality noted. IMPRESSION: 1. Increasing confluent bilateral groundglass and patchy infiltrates relatively sparing the left upper lobe. 2. Lines and tubes as above. ACT 112: Negative or not required by law. Electronically signed by Sheila Rodriguez 12-09-2024 4:18 PM Chest X-Ray 12/10/24 10:47 XR chest 1V portable CLINICAL HISTORY: Hypoxia. COMPARISON STUDY: Chest radiograph December 09, 2024. Chest CT November 13, 2024. FINDINGS: Right internal jugular dual lumen catheter is in place. Cardiomediastinal silhouette is stable. There is no pneumothorax. No definite pleural effusion. Bilateral airspace opacities have progressed. There is an acu te appearing mildly displaced anterolateral left ninth rib fracture. IMPRESSION: 1. Progression of bilateral airspace opacities which favor pneumonia. Pulmonary edema could appear similar although is considered less likely. 2. Acute appearing mildly displaced left ninth rib fracture. No pneumothorax. ACT 112: Negative or not required by law. Electronically signed by: Yoandy Gonzalez M.D. 12/10/2024 12:14 PM Venous Doppler Study 12/10/24 11:45 Exam(s): US VENOUS BILATERAL LOWER EXTREMITIES EXAM: US Duplex Bilateral Lower Extremities Veins CLINICAL HISTORY: Reason for exam: r/o dvt. TECHNIQUE: Real-time duplex ultrasound scan of the bilateral lower extremity veins integrating B-mode two-dimensional vascular structure, Doppler spectral analysis, color flow Doppler imaging and compression. COMPARISON: 10/15/2023 FINDINGS: Right deep veins: Unremarkable. The visualized deep veins of the right lower extremity are compressible with color flow. No visualized thrombus. Right superficial veins: Unremarkable. Left deep veins: Unremarkable. The visualized deep veins of the left lower extremity are compressible with color flow. No visualized thrombus. Left superficial veins: Unremarkable. Soft tissues: No acute findings. IMPRESSION: No DVT within the bilateral lower extremities. Electronically signed by: Elmer Dixon MD 12/10/24 22:21 PM Chest CTA 12/10/24 13:12 CT angio chest PE protocol CT DOSE: 783.48 mGy.cm HISTORY: PE. Shortness of breath; history of PE TECHNIQUE: Multiple CTA images of the chest were obtained after the intravenous administration of 89 ml Optiray. Coronal and sagittal MIPS were obtained from the axial data set and were submitted for review. All measurements were obtained according to NASCET criteria. A dose lowering technique was utilized adhering to the principles of ALARA. COMPARISON STUDY: 10/13/2023 FINDINGS: There is no evidence of acute pulmonary embolism. There are multiple bilateral foci of airspace consolidation involving all lobes of both lungs. There is underlying emphysema. There are trace bilateral pleural effusions. The upper airway is unremarkable. There is no aortic aneurysm. There is extensive coronary artery calcification. There is no pericardial effusion. IMPRESSION: No evidence of acute pulmonary embolism. Widespread, multifocal airspace opacities consistent with infectious or inflammatory process. ACT 112: Negative or not required by law. The above report was generated using voice recognition software. It may contain grammatical, syntax or spelling errors. Electronically signed by: Lakisha Doyle M.D. 12/10/2024 3:07 PM Chest X-Ray 12/11/24 14:51 INDICATION: Shortness of breath TECHNIQUE: Frontal radiograph of the chest. COMPARISON: Radiograph from 2 days ago FINDINGS: Cardiomegaly. Low inspiratory depth. Multifocal interstitial opacities appear unchanged. No pneumothorax. Small pleural effusions. No acute fracture. Right-sided dialysis catheter again noted. IMPRESSION: No significant interval change allowing for differences in technique. Electronically signed by Charles Bailey 12-11-2024 3:10 PM KUB X-Ray 12/14/24 11:13 EXAM: XR KUB/Abdomen 1 view CLINICAL HISTORY: eval for fluid, for pD cath placement. TECHNIQUE: X-ray image of the abdomen obtained in 1 frontal view. COMPARISON: Prior CT dated 10/16/2024 for comparison. FINDINGS: Gas Pattern: Gas pattern within the abdomen is normal. No evidence of bowel obstruction or distention. Soft Tissues: Soft tissues of the abdomen appear normal without evidence of masses. Liver, spleen, and kidneys are of normal size and position. Few foci of calcifications in right paraspinal region at L1 level and phleboliths in the pelvis. Atherosclerotic wall calcifications in bilateral iliac vessels. Spondylotic changes in lumbar spine. Tube artifacts in lower abdomen and pelvis. No significant interval changes. IMPRESSION: 1. No acute abnormalities were identified. 2. Few foci of calcifications in the right paraspinal region at the L1 level and phleboliths in the pelvis. 3. Atherosclerotic wall calcifications in bilateral iliac vessels. 4. Spondylotic changes in lumbar spine. 5. Tube artifacts in lower abdomen and pelvis. 6. No significant interval changes. Electronically signed by Torie Merino 12-14-2024 08:17 AM Chest X-Ray 12/16/24 07:50 XR chest 1V portable CLINICAL HISTORY: hypoxia COMPARISON STUDY: 12/11/2024 FINDINGS: Stable right dialysis catheter. Stable cardiomegaly with pulmonary vascular congestion. There is increased diffuse patchy pulmonary opacity. No pleural effusion or pneumothorax. IMPRESSION: Increased diffuse bilateral pneumonia. ACT 112: Negative or not required by law. Electronically signed by: Jose Ramon Lawrence M.D. 12/16/2024 8:28 AM PG Care Time/CCT Total # of Minutes Spent Total Time Spent: 60 Total Time Spent with Patient: Total time spent is greater than 50% in coordination of care (as documented) at patient's floor/unit and/or counseling patient: [place] [address] SUB INP/OBS CARE 3/50MIN Patient Type Established Medical Decision Making Moderate Complexity Diagnoses Generalized weakness R53.1 Advanced care planning/counseling discussion Z71.89 Palliative care by specialist Z51.5 5
[2024-12-15] MEDS: HEPARIN SOD (PORCINE) 1000 UNIT/ML IV ONE (17:08)
[2024-12-15] MEDS: HEPARIN SOD (PORCINE) 1000 UNIT/ML IV SCH (17:08)
[2024-12-15] MEDS: EPOETIN ALFA 10,000 UNITS/ML VIAL IV ONE (17:08)
--- NOTE | 2024-12-15 17:46 | Hospitalist Progress Note ---
Date of Service December 15, 2024 Assessment & Plan (1) Acute hypoxic respiratory failure: Plan: Mr. Samson is a 79-year-old male with PMH of PE/A-fib on Coumadin, hypertrophic CM, CAD, PVD, hypotension on midodrine, COPD/RLD, ESRD on PD, esophageal achalasia, cirrhosis, prostate cancer status post surgery, MGUS, chronic anemia [baseline hemoglobin of 10-11], cognitive impairment, inclusion body myositis, past tobacco abuse who was recently admitted for COVID - 19 pneumonia/sp decdron Rx for 3-4 days/discharged to [facility] on room air presents w/ c/o increasing weakness, fall (no head trauma, witnessed fall). Patient was noted to have signs of bilateral pneumonia and completed abx course. #ESRD : patient transitioned from PD to HD during admission as patient will be going to SNF upon discharge (PD not done at SNF) HD catheter placed by Vascular sx during admission course c/b intradialysis hypotension Did well yesterday and today w/ very conservative UF per nephrology next HD on 12/17 may consider DC s/p next HD session given tenuous oxygenation awaiting palliative conversations #severe sepsis- resolved POA #Bilateral pneumonia #Acute hypoxic respiratory failure #COVID-19 infection c/bARDS --CT chest with interval early bilateral pneumonia Compared to CT chest on 11/12 --ECHO: Mild concentric LVH. Asymmetric left ventricular hypertrophy involving the septum with maximal thickness of 2.1 cm. Outflow tract obstruction not identified. Cavity obliteration at mid ventricle. Left ventricle is hyperdynamic. EF > 70%. Aortic valve sclerosis mild, without significant aortic valve stenosis. --Peritoneal fluid analysis-no organism and wbc --Serology positive for COVID-19 --Blood cultures- negative to date Appreciate pulmonology input Completed zosyn/doxycycline course CRP trended down Completed dexamethasone 10 day treatment Continue to wean oxygen as tolerated PT recommends SNF placement s/p ICU transfer on 12/10 for hypoxia, required Bipap Transferred from ICU 12/14, on 4-6L NC encouraged to use Incentive Spirometry, Flutter Valve Lung scarring likely to result on chronic hypoxic resp failure #Acute metabolic encephalopathy: likely 2/2 acute illness iso underlying cognitive impairment. continue with delirium precautions #Hypotension Continue midodrine #Suspected dysphagia Aspiration precaution Speech eval and recs noted #Troponin elevation secondary to illness in the setting of chronic kidney dysfunction, history ESRD on PD #Hyperglycemia secondary to diabetes HbA1c 6.7 Continue insulin while hospitalized Monitor BGs #H/O PE/A-fib (early TBS) On Coumadin--initially held due to supratherapeutic INR. Got Vit K on 12/02/24 Warfarin resumed. Monitro INR Continue metoprolol, amiodarone. 12/14 continue to monitor INR and adjust coumadin accordingly Other chronic medical conditions: Continue withe home meds #Hypertrophic cardiomyopathy - Toprol XL changed to Metoprolol tartrate 25mg BID CAD/ PVD COPD/RLD as per records Cirrhosis on imaging from past admission Prostate cancer S/P surgery Chronic anemia, Hb stable Cognitive impairment, patient mentating well Inclusion body myositis as per records, patient to decide on steroid Rx recommendation from local neurologist following recent outpatient visit Subclinical hypothyroidism , needs repeat thyroid function test in 6 weeks as outpatient Past tobacco abuse. CODE STATUS Full code Disposition transition to SNF when cleared by Nephrology Admission and Anticipated Discharge Date Admission Date: November 19, 2024 Subjective Evaluated prior to HD Reports no concerns states that he is overall feeling ok and understands the plan for HD today Denies chest pain, dyspnea, or other acute concerns Physical Exam Constitutional: WD/WN, vitals as above Respiratory: dimisnhed bibasilar breathsounds, 2/2 effor t Cardiovascular: RRR, no murmur, no edema Results & Data Results & Data Vital Signs (Past 12 Hours) Vital Signs Temp Pulse Pulse Resp BP BP Pulse Ox 12/15/24 15:00 90 110/66 12/15/24 14:30 77 110/57 L 12/15/24 14:00 74 119/53 L 12/15/24 13:42 71 106/58 L 12/15/24 13:39 36.5 C 73 12/15/24 12:20 36.6 C 68 20 112/70 92 12/15/24 10:01 12/15/24 08:16 36.5 C 76 20 116/69 93 12/15/24 06:28 96 12/15/24 05:40 74 O2 Del Method O2 Flow Rate 12/15/24 15:00 12/15/24 14:30 12/15/24 14:00 12/15/24 13:42 12/15/24 13:39 12/15/24 12:20 Nasal Cannula 4 12/15/24 10:01 Nasal Cannula 4 12/15/24 08:16 Nasal Cannula 4 12/15/24 06:28 Nasal Cannula 4 12/15/24 05:40 Laboratory Results Short CBC 12/15/24 Range/Units 09:16 WBC 10.23 (4.8-10.8) K/ul Hgb 9.6 L (14.0-18.0) g/dl Hct 29.7 L (42.0-52.0) % Plt Count 181 (130-400) K/uL BMP 12/15/24 09:12 Sodium 138 Potassium 4.3 Chloride 103 Carbon Dioxide 31 BUN 19 Creatinine 2.86 H Glucose 132 H Calcium 8.2 L Medications Administered Home Medications Medication Instructions Recorded Confirmed Last Taken amiodarone 200 mg tablet 200 mg PO DAILY 10/16/24 11/19/24 11/18/24 metoprolol succinate 25 mg 25 mg PO DAILY 10/16/24 11/19/24 11/18/24 09:00 tablet,extended release 24 hr midodrine 2.5 mg tablet 2.5 mg PO AMPM 10/16/24 11/19/24 11/18/24 09:00 warfarin 2 mg tablet 2 mg PO DAILY 10/19/24 11/19/24 11/18/24 09:00 docusate sodium 100 mg capsule 100 mg PO BID #60 caps 10/21/24 11/19/24 11/18/24 09:00 polyethylene glycol 3350 17 gram 17 g PO DAILY PRN constipation #30 10/21/24 11/19/24 Unknown oral powder packet (Miralax) ea Lactobacillus acidophilus 1 tab PO DAILY 11/12/24 11/19/24 Unknown Renal Multivit W/1mg Or <Fa 1 tab PO DAILY 11/12/24 11/19/24 11/18/24 09:00 acetaminophen 500 mg tablet 500 mg PO Q6H 11/12/24 11/19/24 11/18/24 20:00 cholecalciferol (vitamin D3) 50 50 mcg PO DAILY 11/12/24 11/19/24 Unknown mcg (2,000 unit) capsule (Vitamin D3) gentamicin 0.1 % topical cream 1 applic topical DAILY 11/12/24 11/19/24 11/18/24 lanolin alcohols-mineral 1 applic topical UD PRN SKIN CARE 11/12/24 11/19/24 Unknown oil-w.petrolatum-ceresin topical cream (Eucerin topical cream) maltodextrin 1 ea PO QAM PRN Constipation 11/12/24 11/19/24 Unknown menthol 0.44 %-zinc oxide 20.6 % 1 applic topical DAILY 11/12/24 11/19/24 Unknown topical ointment (Calmoseptine) metoprolol tartrate 25 mg tablet 25 mg PO DAILY PRN HR > 100 @ REST 11/12/24 11/19/24 Unknown pantoprazole 40 mg tablet,delayed 40 mg PO DAILY 11/12/24 11/19/24 11/18/24 09:00 release doxycycline hyclate 100 mg capsule 100 mg PO BID 6 days #12 caps 11/15/24 11/19/24 11/18/24 09:00 Active Medications Generic Name Dose Route Start Last Admin Trade Name Freq PRN Reason Stop Dose Admin Acetaminophen 500 mg 11/19/24 03:55 11/29/24 22:35 Acetaminophen 500 Mg Tab PO 12/19/24 03:54 500 mg Q6H PRN Administration fever/pain Albuterol 3 ml 12/06/24 09:03 12/10/24 10:22 Albut/Ipratrop 3mg/0.5mg Neb 3 Ml Vial NEB 01/05/25 09:01 3 ml Q4R PRN Administration Shortness Of Breath Or Wheezing Protocol Amiodarone HCl 200 mg 11/19/24 09:00 12/15/24 07:17 Amiodarone 200 Mg Tab PO 12/19/24 08:59 200 mg DAILY JULIANNA Administration Docusate Sodium 100 mg 11/19/24 09:00 12/15/24 09:28 Docusate Sodium 100 Mg Cap PO 12/19/24 08:59 100 mg BID JULIANNA Administration Guaifenesin/Dextromethorphan 5 ml 11/20/24 22:06 11/22/24 08:33 Guaifenesin/Dextrom Syrup 100mg/10mg 5ml Udc PO 12/20/24 22:05 5 ml Q6H PRN Administration Cough Insulin Aspart 0 units 12/10/24 21:00 12/15/24 13:45 Insulin Aspart Per Unit Charge SC 01/09/25 11:59 1 units ACHS JULIANNA Administration Lactobacillus Acidophilus 1,250 mg 11/19/24 09:00 11/27/24 09:00 Advanced Probiotic 625 Mg Capsule PO 12/19/24 08:59 1,250 mg DAILY JULIANNA Administration Lactobacillus Acidophilus 1 packet 11/27/24 17:00 12/15/24 13:46 Lactobacillus Acidophilus 1 Gm Pack PO 12/27/24 16:59 1 packet TIDM JULIANNA Administration Levalbuterol HCl 1.25 mg 11/20/24 22:06 11/21/24 22:57 Levalbuterol 1.25 Mg/3 Ml Neb NEB 12/20/24 22:05 1.25 mg Q4H PRN Administration Shortness Of Breath Or Wheezin Lidocaine 1 patch 11/20/24 16:45 12/15/24 07:20 Lidocaine 5% 1 Patch TD 12/20/24 16:44 Not Given QAM JULIANNA Loperamide HCl 2 mg 11/28/24 11:29 12/01/24 06:13 Loperamide Hcl 2 Mg Cap PO 12/28/24 11:28 2 mg Q4H PRN Administration Diarrhea Metoprolol Tartrate 25 mg 12/10/24 21:00 12/15/24 09:28 Metoprolol Tartrate 25 Mg Tab PO 01/09/25 20:59 25 mg BID JULIANNA Administration Midodrine 2.5 mg 11/19/24 08:00 12/15/24 13:46 Midodrine Hcl 2.5 Mg Tab PO 12/19/24 07:59 2.5 mg TID@0800,1200,1700 JULIANNA Administration Midodrine 2.5 mg 12/14/24 08:19 12/15/24 13:08 Midodrine Hcl 2.5 Mg Tab PO 01/13/25 08:18 2.5 mg DAILY PRN Administration give on dialysis days only Miscellaneous 1 each 11/20/24 21:00 12/14/24 20:59 Remove Lidoderm Patch N/A 12/20/24 20:59 Not Given DAILY@2100 [facility] Miscellaneous 15 - 30 gm 11/23/24 20:59 12/02/24 14:15 Carbohydrates For Hypoglycemia PO 12/23/24 20:58 30 gm UD PRN Administration Hypoglycemia Protocol Miscellaneous 1 each 12/14/24 09:00 12/15/24 17:08 Midodrine*Pending Order N/A 01/13/25 08:59 1 each Q24H JULIANNA Administration Pantoprazole Sodium 40 mg 11/19/24 09:00 12/15/24 07:17 Pantoprazole 40 Mg Tab PO 12/19/24 08:59 40 mg DAILY JULIANNA Administration Vitamin B Complex/Folic Acid 1 cap 11/19/24 09:00 12/15/24 07:17 Nephrocaps PO 12/19/24 08:59 1 cap DAILY JULIANNA Administration Warfarin Sodium 0.5 mg 12/12/24 16:00 12/14/24 16:33 Warfarin Sod 0.5 Mg Tab PO 01/11/25 15:59 0.5 mg DAILY@1600 JULIANNA Administration Warfarin Sodium 1 mg 12/12/24 16:00 12/14/24 16:33 Warfarin Sod 1 Mg Tab PO 01/11/25 15:59 1 mg DAILY@1600 JULIANNA Administration
[2024-12-15 23:04] LABS: Base Excess VBG 5.2 mEq/L; HCO3 VBG 30 mmol/L; Oxygen Saturation VBG 66.1 %; PCO2 VBG 43 mmHg (38-50); PO2 VBG 37 mmHg; pH VBG 7.45 (7.36-7.41)
[2024-12-16 05:23] LABS: Hematocrit (blood only) 28.2 % (42.0-52.0); Hemoglobin 9.1 g/dl (14.0-18.0); Mean Corpuscular Hemoglobin 29.3 pg (25.0-34.0); Mean Corpuscular Hgb Conc 32.3 g/dL (32.0-36.0); Mean Corpuscular Volume 90.7 fL (80.0-100.0); Mean Platelet Volume 11.2 fL (9.4-12.4); Platelet Count 176 K/uL (130-400); RDW Coefficient of Variation 17.8 % (11.5-14.5); RDW Standard Deviation 57.1 fL (36.4-46.3); Red Blood Count 3.11 M/uL (4.70-6.10); White Blood Count 8.71 K/ul (4.8-10.8)
[2024-12-16 05:30] LABS: BUN Creatinine Ratio 5.9 (10-20); Calcium 8.3 mg/dl (8.6-10.3); Creatinine Clr Calc Pharmacy 28.2 ml/min; Potassium 3.7 mmol/L (3.5-5.1)
[2024-12-16 05:42] LABS: INR 1.4 (0.9-1.1); Prothrombin Time 14.5 Seconds (9.0-12.0)
--- NOTE | 2024-12-16 08:29 | XRay Report ---
XR chest 1V portable CLINICAL HISTORY: hypoxia COMPARISON STUDY: 12/11/2024 FINDINGS: Stable right dialysis catheter. Stable cardiomegaly with pulmonary vascular congestion. The re is increased diffuse patchy pulmonary opacity. No pleural effusion or pneumothorax. IMPRESSION: Increased diffuse bilateral pneumonia. ACT 112: Negative or not required by law. Electronically signed by: Jose Ramon Lawrence M.D. 12/16/2024 8:28 AM
--- NOTE | 2024-12-16 11:28 | Hospitalist Progress Note ---
Date of Service December 16, 2024 Assessment & Plan (1) Acute hypoxic respiratory failure: Plan: Mr. Samson is a 79-year-old male with PMH of PE/A-fib on Coumadin, hypertrophic CM, CAD, PVD, hypotension on midodrine, COPD/RLD, ESRD on PD, esophageal achalasia, cirrhosis, prostate cancer status post surgery, MGUS, chronic anemia [baseline hemoglobin of 10-11], cognitive impairment, inclusion body myositis, past tobacco abuse who was recently admitted for COVID - 19 pneumonia/sp decdron Rx for 3-4 days/discharged to [facility] on room air presents w/ c/o increasing weakness, fall (no head trauma, witnessed fall). Patient was noted to have signs of bilateral pneumonia and completed abx course. Meeting with son, Dominic, at 1530 to discuss code status and further goals. Son expressed desire to continue full efforts at this time to get patient stable for rehab. Reviewed CXR personally which is reveals right pleural effusion and increase pulmonary congestion and edema #Right pleural effusion #Intermittent dyspnea iso worsening respiratory failure and dyspnea Touch base with Pulm: thoracentesis warranted? Hold Coumadin in interim for possible procedure #ESRD : patient transitioned from PD to HD during admission as patient will be going to SNF upon discharge (PD not done at SNF) HD catheter placed by Vascular sx during admission course c/b intradialysis hypotension Did well yesterday and today w/ very conservative UF per nephrology next HD on 12/17 may consider DC s/p next HD session given tenuous oxygenation awaiting palliative conversations #severe sepsis- resolved POA #Bilateral pneumonia #Acute hypoxic respiratory failure #COVID-19 infection c/b ARDS --CT chest with interval early bilateral pneumonia Compared to CT chest on 11/12 --ECHO: Mild concentric LVH. Asymmetric left ventricular hypertrophy involving the septum with maximal thickness of 2.1 cm. Outflow tract obstruction not identified. Cavity obliteration at mid ventricle. Left ventricle is hyperdynamic. EF > 70%. Aortic valve sclerosis mild, without significant aortic valve stenosis. --Peritoneal fluid analysis-no organism and wbc --Serology positive for COVID-19 --Blood cultures- negative to date Appreciate pulmonology input, signed off 11/23 Completed zosyn/doxycycline course Completed dexamethasone 10 day treatment CRP trended down Continue to wean oxygen as tolerated PT recommends SNF placement s/p ICU transfer on 12/10 for hypoxia, required Bipap Transferred from ICU 12/12, on 4-6L NC encouraged to use Incentive Spirometry, Flutter Valve Lung scarring likely to result on chronic hypoxic resp failure #Acute metabolic encephalopathy: likely 2/2 acute illness iso underlying cognitive impairment. continue with delirium precautions #Hypotension Continue midodrine #Suspected dysphagia Aspiration precaution Speech eval and recs noted #Troponin elevation secondary to illness in the setting of chronic kidney dysfunction, history ESRD on PD #Hyperglycemia secondary to diabetes HbA1c 6.7 Continue insulin while hospitalized Monitor BGs #H/O PE/A-fib (early TBS) On Coumadin--initially held due to supratherapeutic INR. Got Vit K on 12/02/24 Warfarin resumed. Monitro INR Continue metoprolol, amiodarone. 12/14 continue to monitor INR and adjust Coumadin accordingly Other chronic medical conditions: Continue with home meds #Hypertrophic cardiomyopathy - Toprol XL changed to Metoprolol tartrate 25mg BID CAD/ PVD COPD/RLD as per records Cirrhosis on imaging from past admission Prostate cancer S/P surgery Chronic anemia, Hb stable Inclusion body myositis as per records, patient to decide on steroid Rx recommendation from local neurologist following recent outpatient visit Subclinical hypothyroidism , needs repeat thyroid function test in 6 weeks as outpatient Past tobacco abuse. CODE STATUS Full code Disposition transition to SNF when cleared by Nephrology Admission and Anticipated Discharge Date Admission Date: November 19, 2024 Subjective Increased oxygen requirements overnight after dialysis Intermittent dyspnea, but otherwise denies any discomfort or symptoms Did not tolerate bipap, but tolerating oxymask Physical Exam Constitutional: WD/WN, vitals as above Respiratory: tachypnic, decreased breath sounds bilaterally Cardiovascular: GLORIA+ Results & Data Results & Data Vital Signs (Past 12 Hours) Vital Signs Temp Pulse Pulse Resp BP Pulse Ox O2 Del Method 12/16/24 08:08 36.4 C L 71 20 118/61 89 L Oxymask 12/16/24 05:49 68 12/16/24 04:01 36.6 C 70 18 114/66 96 Oxymask 12/16/24 00:00 80 12/15/24 23:32 83 33 H 97 O2 Flow Rate FiO2 12/16/24 08:08 9 12/16/24 05:49 12/16/24 04:01 10 12/16/24 00:00 12/15/24 23:32 50 Laboratory Results Short CBC 12/16/24 Range/Units 04:57 WBC 8.71 (4.8-10.8) K/ul Hgb 9.1 L (14.0-18.0) g/dl Hct 28.2 L (42.0-52.0) % Plt Count 176 (130-400) K/uL BMP 12/16/24 04:57 Sodium 138 Potassium 3.7 Chloride 103 Carbon Dioxide 31 BUN 14 Creatinine 2.37 H D Glucose 108 H Calcium 8.3 L Medications Administered Home Medications Medication Instructions Recorded Confirmed Last Taken amiodarone 200 mg tablet 200 mg PO DAILY 10/16/24 11/19/24 11/18/24 metoprolol succinate 25 mg 25 mg PO DAILY 10/16/24 11/19/24 11/18/24 09:00 tablet,extended release 24 hr midodrine 2.5 mg tablet 2.5 mg PO AMPM 10/16/24 11/19/24 11/18/24 09:00 warfarin 2 mg tablet 2 mg PO DAILY 10/19/24 11/19/24 11/18/24 09:00 docusate sodium 100 mg capsule 100 mg PO BID #60 caps 10/21/24 11/19/24 11/18/24 09:00 polyethylene glycol 3350 17 gram 17 g PO DAILY PRN constipation #30 10/21/24 11/19/24 Unknown oral powder packet (Miralax) ea Lactobacillus acidophilus 1 tab PO DAILY 11/12/24 11/19/24 Unknown Renal Multivit W/1mg Or <Fa 1 tab PO DAILY 11/12/24 11/19/24 11/18/24 09:00 acetaminophen 500 mg tablet 500 mg PO Q6H 11/12/24 11/19/24 11/18/24 20:00 cholecalciferol (vitamin D3) 50 50 mcg PO DAILY 11/12/24 11/19/24 Unknown mcg (2,000 unit) capsule (Vitamin D3) gentamicin 0.1 % topical cream 1 applic topical DAILY 11/12/24 11/19/24 11/18/24 lanolin alcohols-mineral 1 applic topical UD PRN SKIN CARE 11/12/24 11/19/24 Unknown oil-w.petrolatum-ceresin topical cream (Eucerin topical cream) maltodextrin 1 ea PO QAM PRN Constipation 11/12/24 11/19/24 Unknown menthol 0.44 %-zinc oxide 20.6 % 1 applic topical DAILY 11/12/24 11/19/24 Unknown topical ointment (Calmoseptine) metoprolol tartrate 25 mg tablet 25 mg PO DAILY PRN HR > 100 @ REST 11/12/24 11/19/24 Unknown pantoprazole 40 mg tablet,delayed 40 mg PO DAILY 11/12/24 11/19/24 11/18/24 09:00 release doxycycline hyclate 100 mg capsule 100 mg PO BID 6 days #12 caps 11/15/24 11/19/24 11/18/24 09:00 Active Medications Generic Name Dose Route Start Last Admin Trade Name Freq PRN Reason Stop Dose Admin Acetaminophen 500 mg 11/19/24 03:55 11/29/24 22:35 Acetaminophen 500 Mg Tab PO 12/19/24 03:54 500 mg Q6H PRN Administration fever/pain Albuterol 3 ml 12/06/24 09:03 12/10/24 10:22 Albut/Ipratrop 3mg/0.5mg Neb 3 Ml Vial NEB 01/05/25 09:01 3 ml Q4R PRN Administration Shortness Of Breath Or Wheezing Protocol Amiodarone HCl 200 mg 11/19/24 09:00 12/16/24 08:29 Amiodarone 200 Mg Tab PO 12/19/24 08:59 200 mg DAILY JULIANNA Administration Docusate Sodium 100 mg 11/19/24 09:00 12/16/24 08:32 Docusate Sodium 100 Mg Cap PO 12/19/24 08:59 100 mg BID JULIANNA Administration Guaifenesin/Dextromethorphan 5 ml 11/20/24 22:06 11/22/24 08:33 Guaifenesin/Dextrom Syrup 100mg/10mg 5ml Udc PO 12/20/24 22:05 5 ml Q6H PRN Administration Cough Insulin Aspart 0 units 12/10/24 21:00 12/16/24 08:58 Insulin Aspart Per Unit Charge SC 01/09/25 11:59 Not Given ACHS JULIANNA Lactobacillus Acidophilus 1,250 mg 11/19/24 09:00 11/27/24 09:00 Advanced Probiotic 625 Mg Capsule PO 12/19/24 08:59 1,250 mg DAILY JULIANNA Administration Lactobacillus Acidophilus 1 packet 11/27/24 17:00 12/16/24 11:51 Lactobacillus Acidophilus 1 Gm Pack PO 12/27/24 16:59 1 packet TIDM JULIANNA Administration Levalbuterol HCl 1.25 mg 11/20/24 22:06 11/21/24 22:57 Levalbuterol 1.25 Mg/3 Ml Neb NEB 12/20/24 22:05 1.25 mg Q4H PRN Administration Shortness Of Breath Or Wheezin Lidocaine 1 patch 11/20/24 16:45 12/16/24 08:30 Lidocaine 5% 1 Patch TD 12/20/24 16:44 Not Given QAM JULIANNA Loperamide HCl 2 mg 11/28/24 11:29 12/01/24 06:13 Loperamide Hcl 2 Mg Cap PO 12/28/24 11:28 2 mg Q4H PRN Administration Diarrhea Metoprolol Tartrate 25 mg 12/10/24 21:00 12/16/24 08:28 Metoprolol Tartrate 25 Mg Tab PO 01/09/25 20:59 25 mg BID JULIANNA Administration Midodrine 2.5 mg 11/19/24 08:00 12/16/24 11:50 Midodrine Hcl 2.5 Mg Tab PO 12/19/24 07:59 2.5 mg TID@0800,1200,1700 JULIANNA Administration Midodrine 2.5 mg 12/14/24 08:19 12/15/24 13:08 Midodrine Hcl 2.5 Mg Tab PO 01/13/25 08:18 2.5 mg DAILY PRN Administration give on dialysis days only Miscellaneous 1 each 11/20/24 21:00 12/15/24 21:04 Remove Lidoderm Patch N/A 12/20/24 20:59 Not Given DAILY@2100 JULIANNA Miscellaneous 15 - 30 gm 11/23/24 20:59 12/02/24 14:15 Carbohydrates For Hypoglycemia PO 12/23/24 20:58 30 gm UD PRN Administration Hypoglycemia Protocol Miscellaneous 1 each 12/14/24 09:00 12/16/24 08:30 Midodrine*Pending Order N/A 01/13/25 08:59 Not Given Q24H [facility] Pantoprazole Sodium 40 mg 11/19/24 09:00 12/16/24 08:28 Pantoprazole 40 Mg Tab PO 12/19/24 08:59 40 mg DAILY JULIANNA Administration Vitamin B Complex/Folic Acid 1 cap 11/19/24 09:00 12/16/24 08:28 Nephrocaps PO 12/19/24 08:59 1 cap DAILY JULIANNA Administration Warfarin Sodium 0.5 mg 12/12/24 16:00 12/15/24 17:40 Warfarin Sod 0.5 Mg Tab PO 01/11/25 15:59 0.5 mg DAILY@1600 JULIANNA Administration Warfarin Sodium 1 mg 12/12/24 16:00 12/15/24 17:40 Warfarin Sod 1 Mg Tab PO 01/11/25 15:59 1 mg DAILY@1600 JULIANNA Administration
--- NOTE | 2024-12-16 12:27 | Nephrology Progress Note ---
Date of Service December 16, 2024 Assessment & Plan (1) ESRD (end stage renal disease) on dialysis: Plan: ESRD currently on HD, with known LVOT obstruction, making fluid removal VERY touchy. Desat'd again end of tx 12/15 >>pulm recommends aggressive UF, which means we will transition back to PD tonight >> 4 2.5% bags and 2 4.5% bags this evening reeval in a few days if we can change back to HD w/ gentle /conservative fluid removal goals and running on cold temp HD has been limited by hypotension > gave extra midodrine dose prior to tx 2.5 mg venofer w/ HD today for T sat 16% on 12/13; hgb 9.1 today >> hold off on venofer as we cannot make it volume neutral GOAL remains for dialysis modalities is HD for rehab and PD after that/on return home; all of that said he is very debilitated and has challenges -- lung scarring, hypoxia which may well be chronic now, LVOT obstruction -- which affect his prognosis and clinical course anticipate not ready to consider rehab / d-c for several more days, if he makes it that long Care coordinated w/ Dr Douglas re dialysis today & d/c dispo, goals of care, dialysis modalities; we are in agreement (2) Counseling regarding goals of care: Plan: 10 minute talk w/ pt about goals of care > he knows that his prx is more challenging w/ desats, knows it's poor but wants to continue dialysis, continue attempts to wean. 18 minute phone call w/ son Guido > updated him on events yesterday, on rationale for change to PD; reviewed goals of care w/ him again (he'd just finished doing same w/ Dr Douglas)>pt wants to continue full code and w/ dialysis. 5 minute conversation w/ Dr Douglas re pt status as well (3) Peritoneal dialysis status: Plan: last PD was approx one week ago > dialysis nurse ONLY to manipulate PD catheter or dressings PD dressing change 12/13; 12/15 PD flushed 12/14 >>for PD this evening >>will need weekly dressing changes and flushes of PD catheter TO BE DONE BY PD nurse only at d/c (4) Accident due to mechanical fall without injury: Plan: Continue PT and then rehab as feasible (5) Hyperkalemia: Plan: k 6.4 on 12/13; K supplements stopped; would not consider resuming until /unless he returns to PD >started K 20 mEq daily today (6) 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 Review of Systems 2 Review of Systems: All systems reviewed & are unremarkable except as noted in Subjective Physical Exam 2 Constitutional: well developed, well nourished, + frail appearing, cooperative and + in distress (mild w/ breathing ); no acute distress and no altered mental status Eyes: EOM intact bilaterally ENMT: Mouth: + dry oral mucous membranes Respiratory: normal respiratory effort and able to speak in complete sentences; no labored breathing, no cough and not tachypneic Auscultation: + diminished lung sounds (extremely), + rhonchi, + wheezes and + bronchovesicular breath sounds; no crackles (not heard on ant exam on HD) Cardiovascular: Rate/Rhythm: regular rate and regular rhythm Heart Sounds: + murmur Extremities: no edema Gastrointestinal (Abdomen): Inspection/Auscultation: normal bowel sounds and + abdominal surgical drain present (PD catheter) Percussion/Palpation: abdomen soft; abdomen nontender Musculoskeletal: Extremities: strength 5/5 throughout Skin: no rashes, warm and dry Results & Data Vital Signs (Past 12 Hours) Vital Signs Temp Pulse Pulse Resp BP Pulse Ox O2 Del Method 12/16/24 11:33 36.5 C 75 18 112/65 99 Oxymask 12/16/24 08:08 36.4 C L 71 20 118/61 89 L Oxymask 12/16/24 05:49 68 12/16/24 04:01 36.6 C 70 18 114/66 96 Oxymask O2 Flow Rate 12/16/24 11:33 9 12/16/24 08:08 9 12/16/24 05:49 12/16/24 04:01 10 Laboratory Results 12/16/24 04:57 12/16/24 04:57
[2024-12-16] MEDS: POLYETHYLENE (MIRALAX) 17 GM PACK PO PRN (15:32)
--- NOTE | 2024-12-16 16:49 | Communication Note ---
Date of Service: December 16, 2024 Spoke to son, Dominic, at length today. Reports just "wanting what is best for [his] father" including what his father's wishes regarding GoC would be. He verbalized understanding that patient is tenuous with his clinical status. Spoke to patient at bedside with son present. Patient verbalized that he would want to have "all efforts" done because he is "not ready to yet." Patient wishes to continue all measures and pursue rehab at this time, but states he knows that his status "could change" and he would know when to "change [his] mind." 45 minutes spent at bedside
[2024-12-16] MEDS: POTASSIUM CHLORIDE PWD 20 MEQ PACK PO SCH (19:29)
[2024-12-17 09:13] LABS: Hematocrit (blood only) 31.7 % (42.0-52.0); Hemoglobin 10.3 g/dl (14.0-18.0); Mean Corpuscular Hemoglobin 29.3 pg (25.0-34.0); Mean Corpuscular Hgb Conc 32.5 g/dL (32.0-36.0); Mean Corpuscular Volume 90.3 fL (80.0-100.0); Mean Platelet Volume 10.9 fL (9.4-12.4); Platelet Count 240 K/uL (130-400); RDW Coefficient of Variation 17.9 % (11.5-14.5); RDW Standard Deviation 58.1 fL (36.4-46.3); Red Blood Count 3.51 M/uL (4.70-6.10); White Blood Count 9.63 K/ul (4.8-10.8)
[2024-12-17 09:25] LABS: BUN Creatinine Ratio 6.6 (10-20); Calcium 8.7 mg/dl (8.6-10.3); Magnesium 1.8 mg/dl (1.7-2.4); Potassium 3.3 mmol/L (3.5-5.1)
--- NOTE | 2024-12-17 14:37 | Hospitalist Progress Note ---
Date of Service December 17, 2024 Assessment & Plan (1) Acute hypoxic respiratory failure: Plan: Mr. Samson is a 79-year-old male with PMH of PE/A-fib on Coumadin, hypertrophic CM, CAD, PVD, hypotension on midodrine, COPD/RLD, ESRD on PD, esophageal achalasia, cirrhosis, prostate cancer status post surgery, MGUS, chronic anemia [baseline hemoglobin of 10-11], cognitive impairment, inclusion body myositis, past tobacco abuse who was recently admitted for COVID - 19 pneumonia/sp decdron Rx for 3-4 days/discharged to [facility] on room air presents w/ c/o increasing weakness, fall (no head trauma, witnessed fall). Patient was noted to have signs of bilateral pneumonia and completed abx course. Meeting with son, Dominic, at 1530 on 12/16 to discuss code status and further goals. Son expressed desire to continue full efforts at this time to get patient stable for rehab. Reviewed CXR personally which is reveals right pleural effusion and increase pulmonary congestion and edema Spoke to Pulm off line who recommends that further fluid removal via HD/PD would be ideal as there is no accessible pocket Long discussion had with son and patient who wishes to remain full code. Discussed with nephrology, who agrees to trial PD for optimal fluid removal gi jeanine inability to handle HD 2/2 LVOT Patient tolerated 1.5L removal overnight and reports feeling well this am overall. Currently on 4L NC #Right pleural effusion #Intermittent dyspnea iso worsening respiratory failure and dyspnea no tap warranted, encouraged better volume optimization with HD v PD--transitioned to PD on 12/16 overnight #ESRD : patient transitioned from PD to HD during admission as patient will be going to SNF upon discharge (PD not done at SNF) HD catheter placed by Vascular sx during admission course c/b intradialysis hypotension Did well yesterday and today w/ very conservative UF per nephrology; however respiratory status questionable #severe sepsis- resolved POA #Bilateral pneumonia #Acute hypoxic respiratory failure #COVID-19 infection c/b ARDS --CT chest with interval early bilateral pneumonia Compared to CT chest on 11/12 --ECHO: Mild concentric LVH. Asymmetric left ventricular hypertrophy involving the septum with maximal thickness of 2.1 cm. Outflow tract obstruction not identified. Cavity obliteration at mid ventricle. Left ventricle is hyperdynamic. EF > 70%. Aortic valve sclerosis mild, without significant aortic valve stenosis. --Peritoneal fluid analysis-no organism and wbc --Serology positive for COVID-19 --Blood cultures- negative to date Appreciate pulmonology input, signed off 11/23 Completed zosyn/doxycycline course & dexamethasone 10 day treatment CRP trended down Continue to wean oxygen as tolerated PT recommends SNF placement s/p ICU transfer on 12/10 for hypoxia, required Bipap Transferred from ICU 12/12, on 4-6L NC encouraged to use Incentive Spirometry, Flutter Valve #Acute metabolic encephalopathy: likely 2/2 acute illness iso underlying cognitive impairment. continue with delirium precautions #Hypotension Continue midodrine #Suspected dysphagia Aspiration precaution Speech eval and recs noted #Troponin elevation secondary to illness in the setting of chronic kidney dysfunction, history ESRD on PD #Hyperglycemia secondary to diabetes HbA1c 6.7 Continue insulin while hospitalized Monitor BGs #H/O PE/A-fib (early TBS) On Coumadin--initially held due to supratherapeutic INR. Got Vit K on 12/02/24 Warfarin resumed. Monitor INR Continue metoprolol, amiodarone. #Hypertrophic cardiomyopathy - Toprol XL changed to Metoprolol tartrate 25mg BID CAD/ PVD COPD/RLD as per records Cirrhosis on imaging from past admission Prostate cancer S/P surgery Chronic anemia, Hb stable Inclusion body myositis as per records, patient to decide on steroid Rx recommendation from local neurologist following recent outpatient visit Subclinical hypothyroidism , needs repeat thyroid function test in 6 weeks as outpatient Past tobacco abuse. CODE STATUS Full code Disposition transition to SNF when O2 stable Admission and Anticipated Discharge Date Admission Date: November 19, 2024 Subjective Transitioned to PD overnight and tolerated 1.5L removal denies any new concerns at this time Physical Exam Constitutional: WD/WN, vitals as above Respiratory: normal respiratory effort, lungs clear to auscultation Cardiovascular: RRR, no murmur, no edema Results & Data Results & Data Vital Signs (Past 12 Hours) Vital Signs Temp Pulse Pulse Pulse Pulse Resp BP 12/17/24 13:08 72 12/17/24 11:09 36.3 C L 71 19 12/17/24 08:45 36.5 C 75 30 H 12/17/24 07:29 36.4 C L 71 19 12/17/24 05:45 75 12/17/24 03:53 36.5 C 75 18 96/61 L BP Pulse Ox O2 Del Method O2 Flow Rate 12/17/24 13:08 12/17/24 11:09 113/67 91 Nasal Cannula 4 12/17/24 08:45 12/17/24 07:29 107/67 91 Nasal Cannula 4 12/17/24 05:45 12/17/24 03:53 92 Nasal Cannula 4 Laboratory Results Short CBC 12/17/24 Range/Units 08:26 WBC 9.63 (4.8-10.8) K/ul Hgb 10.3 L (14.0-18.0) g/dl Hct 31.7 L (42.0-52.0) % Plt Count 240 (130-400) K/uL BMP 12/17/24 08:26 Sodium 140 Potassium 3.3 L Chloride 103 Carbon Dioxide 32 BUN 21 Creatinine 3.18 H D Glucose 210 H Calcium 8.7 Medications Administered Home Medications Medication Instructions Recorded Confirmed Last Taken amiodarone 200 mg tablet 200 mg PO DAILY 10/16/24 11/19/24 11/18/24 metoprolol succinate 25 mg 25 mg PO DAILY 10/16/24 11/19/24 11/18/24 09:00 tablet,extended release 24 hr midodrine 2.5 mg tablet 2.5 mg PO AMPM 10/16/24 11/19/24 11/18/24 09:00 warfarin 2 mg tablet 2 mg PO DAILY 10/19/24 11/19/24 11/18/24 09:00 docusate sodium 100 mg capsule 100 mg PO BID #60 caps 10/21/24 11/19/24 11/18/24 09:00 polyethylene glycol 3350 17 gram 17 g PO DAILY PRN constipation #30 10/21/24 11/19/24 Unknown oral powder packet (Miralax) ea Lactobacillus acidophilus 1 tab PO DAILY 11/12/24 11/19/24 Unknown Renal Multivit W/1mg Or <Fa 1 tab PO DAILY 11/12/24 11/19/24 11/18/24 09:00 acetaminophen 500 mg tablet 500 mg PO Q6H 11/12/24 11/19/24 11/18/24 20:00 cholecalciferol (vitamin D3) 50 50 mcg PO DAILY 11/12/24 11/19/24 Unknown mcg (2,000 unit) capsule (Vitamin D3) gentamicin 0.1 % topical cream 1 applic topical DAILY 11/12/24 11/19/24 11/18/24 lanolin alcohols-mineral 1 applic topical UD PRN SKIN CARE 11/12/24 11/19/24 Unknown oil-w.petrolatum-ceresin topical cream (Eucerin topical cream) maltodextrin 1 ea PO QAM PRN Constipation 11/12/24 11/19/24 Unknown menthol 0.44 %-zinc oxide 20.6 % 1 applic topical DAILY 11/12/24 11/19/24 Unknown topical ointment (Calmoseptine) metoprolol tartrate 25 mg tablet 25 mg PO DAILY PRN HR > 100 @ REST 11/12/24 11/19/24 Unknown pantoprazole 40 mg tablet,delayed 40 mg PO DAILY 11/12/24 11/19/24 11/18/24 09:00 release doxycycline hyclate 100 mg capsule 100 mg PO BID 6 days #12 caps 11/15/24 11/19/24 11/18/24 09:00 Active Medications Generic Name Dose Route Start Last Admin Trade Name Freq PRN Reason Stop Dose Admin Acetaminophen 500 mg 11/19/24 03:55 11/29/24 22:35 Acetaminophen 500 Mg Tab PO 12/19/24 03:54 500 mg Q6H PRN Administration fever/pain Albuterol 3 ml 12/06/24 09:03 12/10/24 10:22 Albut/Ipratrop 3mg/0.5mg Neb 3 Ml Vial NEB 01/05/25 09:01 3 ml Q4R PRN Administration Shortness Of Breath Or Wheezing Protocol Amiodarone HCl 200 mg 11/19/24 09:00 12/17/24 09:29 Amiodarone 200 Mg Tab PO 12/19/24 08:59 200 mg DAILY JULIANNA Administration Docusate Sodium 100 mg 11/19/24 09:00 12/17/24 09:28 Docusate Sodium 100 Mg Cap PO 12/19/24 08:59 Not Given BID JULIANNA Guaifenesin/Dextromethorphan 5 ml 11/20/24 22:06 11/22/24 08:33 Guaifenesin/Dextrom Syrup 100mg/10mg 5ml Udc PO 12/20/24 22:05 5 ml Q6H PRN Administration Cough Insulin Aspart 0 units 12/10/24 21:00 12/17/24 12:01 Insulin Aspart Per Unit Charge SC 01/09/25 11:59 Not Given ACHS JULIANNA Lactobacillus Acidophilus 1,250 mg 11/19/24 09:00 11/27/24 09:00 Advanced Probiotic 625 Mg Capsule PO 12/19/24 08:59 1,250 mg DAILY JULIANNA Administration Lactobacillus Acidophilus 1 packet 11/27/24 17:00 12/17/24 12:06 Lactobacillus Acidophilus 1 Gm Pack PO 12/27/24 16:59 1 packet TIDM JULIANNA Administration Levalbuterol HCl 1.25 mg 11/20/24 22:06 11/21/24 22:57 Levalbuterol 1.25 Mg/3 Ml Neb NEB 12/20/24 22:05 1.25 mg Q4H PRN Administration Shortness Of Breath Or Wheezin Lidocaine 1 patch 11/20/24 16:45 12/17/24 09:31 Lidocaine 5% 1 Patch TD 12/20/24 16:44 Not Given QAM JULIANNA Loperamide HCl 2 mg 11/28/24 11:29 12/01/24 06:13 Loperamide Hcl 2 Mg Cap PO 12/28/24 11:28 2 mg Q4H PRN Administration Diarrhea Metoprolol Tartrate 25 mg 12/10/24 21:00 12/17/24 09:29 Metoprolol Tartrate 25 Mg Tab PO 01/09/25 20:59 25 mg BID JULIANNA Administration Midodrine 2.5 mg 11/19/24 08:00 12/17/24 12:06 Midodrine Hcl 2.5 Mg Tab PO 12/19/24 07:59 2.5 mg TID@0800,1200,1700 JULIANNA Administration Midodrine 2.5 mg 12/14/24 08:19 12/15/24 13:08 Midodrine Hcl 2.5 Mg Tab PO 01/13/25 08:18 2.5 mg DAILY PRN Administration give on dialysis days only Miscellaneous 1 each 11/20/24 21:00 12/16/24 21:04 Remove Lidoderm Patch N/A 12/20/24 20:59 1 each DAILY@2100 JULIANNA Administration Miscellaneous 15 - 30 gm 11/23/24 20:59 12/02/24 14:15 Carbohydrates For Hypoglycemia PO 12/23/24 20:58 30 gm UD PRN Administration Hypoglycemia Protocol Miscellaneous 1 each 12/14/24 09:00 12/17/24 09:28 Midodrine*Pending Order N/A 01/13/25 08:59 1 each Q24H JULIANNA Administration Pantoprazole Sodium 40 mg 11/19/24 09:00 12/17/24 09:29 Pantoprazole 40 Mg Tab PO 12/19/24 08:59 40 mg DAILY JULIANNA Administration Polyethylene Glycol 17 gm 11/19/24 06:04 12/16/24 15:32 Polyethylene (Miralax) 17 Gm Pack PO 12/19/24 06:03 17 gm DAILY PRN Administration constipation Potassium Chloride 20 meq 12/16/24 17:45 12/17/24 09:28 Potassium Chloride Pwd 20 Meq Pack PO 01/15/25 17:44 20 meq QAM JULIANNA Administration Vitamin B Complex/Folic Acid 1 cap 11/19/24 09:00 12/17/24 09:30 Nephrocaps PO 12/19/24 08:59 1 cap DAILY JULIANNA Administration Warfarin Sodium 0.5 mg 12/12/24 16:00 12/15/24 17:40 Warfarin Sod 0.5 Mg Tab PO 01/11/25 15:59 0.5 mg DAILY@1600 JULIANNA Administration Warfarin Sodium 1 mg 12/12/24 16:00 12/15/24 17:40 Warfarin Sod 1 Mg Tab PO 01/11/25 15:59 1 mg DAILY@1600 JULIANNA Administration
--- NOTE | 2024-12-17 16:50 | Nephrology Progress Note ---
Date of Service December 17, 2024 Assessment & Plan (1) ESRD (end stage renal disease) on dialysis: Plan: ESRD currently on PD > switched to this b/c needs better oxygenation, needs lower 02 needs so can do HD, with known LVOT obstruction, making fluid removal VERY touchy w/ this modality. tolerates PD though. Desat'd again end of tx 12/15 >>pulm recommends aggressive UF>> continue this w/ PD tonight >> 4 2.5% bags and 2 4.5% bags this evening reeval in a few days if we can change back to HD w/ gentle /conservative fluid removal goals and running on cold temp HD has been limited by hypotension > gave extra midodrine dose prior to tx 2.5 mg venofer w/ HD today for T sat 16% on 12/13; hgb 9.1 today >> hold off on venofer while on PD as we cannot make it volume neutral GOAL remains for dialysis modalities is HD for rehab and PD after that/on return home; all of that said he is very debilitated and has challenges -- lung scarring, hypoxia which may well be chronic now, LVOT obstruction -- which affect his prognosis and clinical course anticipate not ready to consider rehab / d-c for several more days, if he makes it that long (2) Counseling regarding goals of care: Plan: see yesterday's conversations w/ stakeholders on this (3) Accident due to mechanical fall without injury: Plan: Continue PT and then rehab as feasible (4) Hyperkalemia: Plan: k 6.4 on 12/13; K supplements stopped; would not consider resuming until /unless he returns to PD >started K 20 mEq daily 12/16 and still low > will up to 20 mEq bid (5) 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 tolerated PD yesterday w/ 1.5L UF; remains exhausted, minimal po intake though he tries. Review of Systems 2 Review of Systems: All systems reviewed & are unremarkable except as noted in Subjective Physical Exam 2 Constitutional: well developed, well nourished, + frail appearing and cooperative; no acute distress and no altered mental status Eyes: EOM intact bilaterally ENMT: Mouth: + dry oral mucous membranes Respiratory: normal respiratory effort and + tachypneic; no labored breathing and no cough Auscultation: + diminished lung sounds (extremely), + rhonchi and + bronchovesicular breath sounds; no crackles Cardiovascular: Rate/Rhythm: regular rate and regular rhythm Heart Sounds: + murmur Extremities: no edema Gastrointestinal (Abdomen): Inspection/Auscultation: normal bowel sounds and + abdominal surgical drain present (PD catheter) Percussion/Palpation: abdomen soft; abdomen nontender Musculoskeletal: Extremities: strength 5/5 throughout Skin: no rashes, warm and dry Results & Data Vital Signs (Past 12 Hours) Vital Signs Temp Pulse Pulse Pulse Resp BP Pulse Ox 12/17/24 15:48 36.6 C 82 19 109/68 90 12/17/24 13:08 72 12/17/24 11:09 36.3 C L 71 19 113/67 91 12/17/24 08:45 36.5 C 75 30 H 12/17/24 07:29 36.4 C L 71 19 107/67 91 12/17/24 05:45 75 O2 Del Method O2 Flow Rate 12/17/24 15:48 Nasal Cannula 4 12/17/24 13:08 12/17/24 11:09 Nasal Cannula 4 12/17/24 08:45 12/17/24 07:29 Nasal Cannula 4 12/17/24 05:45 Laboratory Results 12/17/24 08:26 12/17/24 08:26
[2024-12-17] MEDS: POTASSIUM CHLORIDE PWD 20 MEQ PACK PO SCH (20:59)
--- NOTE | 2024-12-18 07:34 | Hospitalist Progress Note ---
Date of Service December 18, 2024 Assessment & Plan (1) Acute hypoxic respiratory failure: Plan: Mr. Samson is a 79-year-old male with PMH of PE/A-fib on Coumadin, hypertrophic CM, CAD, PVD, hypotension on midodrine, COPD/RLD, ESRD on PD, esophageal achalasia, cirrhosis, prostate cancer status post surgery, MGUS, chronic anemia [baseline hemoglobin of 10-11], cognitive impairment, inclusion body myositis, past tobacco abuse who was recently admitted for COVID - 19 pneumonia/sp decdron Rx for 3-4 days/discharged to [facility] on room air presents w/ c/o increasing weakness, fall (no head trauma, witnessed fall). Patient was noted to have signs of bilateral pneumonia and completed abx course. Meeting with son, Dominic, at 1530 on 12/16 to discuss code status and further goals. Son expressed desire to continue full efforts at this time to get patient stable for rehab. Reviewed CXR personally which is reveals right pleural effusion and increase pulmonary congestion and edema Spoke to Pulm off line who recommends that further fluid removal via HD/PD would be ideal as there is no accessible pocket Long discussion had with son and patient who wishes to remain full code. Discussed with nephrology, who agrees to trial PD for optimal fluid removal given inability to handle HD 2/2 LVOT as of 12/16 Patient has been tolerating PD thus far; however, oxygen desaturations noted overnight Will continue to optimize volume status as tolerated Discussion with patient about starting Remeron to aid in mood and appetite, wishes to defer until discussion with son . #Right pleural effusion #Intermittent dyspnea *improving iso worsening respiratory failure and dyspnea no tap warranted, encouraged better volume optimization with HD v PD--transitioned to PD on 12/16 overnight #ESRD, briefly on HD to facilitate dispo, now on PD once more given hemodynamic intolerance patient transitioned from PD to HD during admission as patient will be going to SNF upon discharge (PD not done at SNF) HD catheter placed by Vascular sx during admission course c/b intradialysis hypotension Did well yesterday and today w/ very conservative UF per nephrology; however respiratory status questionable, but improving with PD #severe sepsis- resolved POA #Bilateral pneumonia #Acute hypoxic respiratory failure #COVID-19 infection c/b ARDS --CT chest with interval early bilateral pneumonia Compared to CT chest on 1/24 --ECHO: Mild concentric LVH. Asymmetric left ventricular hypertrophy involving the septum with maximal thickness of 2.1 cm. Outflow tract obstruction not identified. Cavity obliteration at mid ventricle. Left ventricle is hyperdynamic. EF > 70%. Aortic valve sclerosis mild, without significant aortic valve stenosis. --Peritoneal fluid analysis-no organism and wbc --Serology positive for COVID-19 --Blood cultures- negative to date Appreciate pulmonology input, signed off 11/23 Completed zosyn/doxycycline course & dexamethasone 10 day treatment CRP trended down Continue to wean oxygen as tolerated PT recommends SNF placement s/p ICU transfer on 12/10 for hypoxia, required Bipap Transferred from ICU 12/12, on 4-6L NC, briefly requiring bipap on 12/15; mostly desaturates at night time requiring oxymask encouraged to use Incentive Spirometry, Flutter Valve #Acute metabolic encephalopathy: likely 2/2 acute illness iso underlying cognitive impairment. continue with delirium precautions #Hypotension Continue midodrine #Suspected dysphagia Aspiration precaution Speech eval and recs noted #Troponin elevation secondary to illness in the setting of chronic kidney dysfunction, history ESRD on PD #Hyperglycemia secondary to diabetes HbA1c 6.7 Continue insulin while hospitalized Monitor BGs #H/O PE/A-fib (early TBS) On Coumadin--initially held due to supratherapeutic INR. Got Vit K on 12/02/24 Warfarin resumed. Monitor INR Continue metoprolol, amiodarone. #Hypertrophic cardiomyopathy - Toprol XL changed to Metoprolol tartrate 25mg BID CAD/ PVD COPD/RLD as per records Cirrhosis on imaging from past admission Prostate cancer S/P surgery Chronic anemia, Hb stable Inclusion body myositis as per records, patient to decide on steroid Rx recommendation from local neurologist following recent outpatient visit Subclinical hypothyroidism , needs repeat thyroid function test in 6 weeks as outpatient Past tobacco abuse. CODE STATUS Full code Disposition transition to SNF when O2 stable Admission and Anticipated Discharge Date Admission Date: November 19, 2024 Subjective Seemingly desaturates in evening denies any acute concerns this morning, requests chocolate milk shakes as he primary craving otherwise reports loss of appetite Physical Exam Constitutional: WD/WN, vitals as above Respiratory: diminished bilaterally Cardiovascular: GLORIA+ Neurologic: PERRL, EOMI, accommodation nl, no face palsy, no dysarthria Results & Data Results & Data Vital Signs (Past 12 Hours) Vital Signs Temp Pulse Pulse Resp BP Pulse Ox O2 Del Method 12/18/24 03:03 36.5 C 79 18 103/67 90 Nasal Cannula, Oxymask 12/18/24 00:00 88 12/17/24 23:04 36.4 C L 80 19 108/68 94 Oxymask 12/17/24 20:00 Oxymask O2 Flow Rate 12/18/24 03:03 6 12/18/24 00:00 12/17/24 23:04 6 12/17/24 20:00 8 Laboratory Results BMP 12/18/24 07:32 Sodium 140 Potassium 4.1 D Chloride 101 Carbon Dioxide 32 BUN 23 Creatinine 4.08 H D Glucose 198 H Calcium 9.1 Medications Administered Home Medications Medication Instructions Recorded Confirmed Last Taken amiodarone 200 mg tablet 200 mg PO DAILY 10/16/24 11/19/24 11/18/24 metoprolol succinate 25 mg 25 mg PO DAILY 10/16/24 11/19/24 11/18/24 09:00 tablet,extended release 24 hr midodrine 2.5 mg tablet 2.5 mg PO AMPM 10/16/24 11/19/24 11/18/24 09:00 warfarin 2 mg tablet 2 mg PO DAILY 10/19/24 11/19/24 11/18/24 09:00 docusate sodium 100 mg capsule 100 mg PO BID #60 caps 10/21/24 11/19/24 11/18/24 09:00 polyethylene glycol 3350 17 gram 17 g PO DAILY PRN constipation #30 10/21/24 11/19/24 Unknown oral powder packet (Miralax) ea Lactobacillus acidophilus 1 tab PO DAILY 11/12/24 11/19/24 Unknown Renal Multivit W/1mg Or <Fa 1 tab PO DAILY 11/12/24 11/19/24 11/18/24 09:00 acetaminophen 500 mg tablet 500 mg PO Q6H 11/12/24 11/19/24 11/18/24 20:00 cholecalciferol (vitamin D3) 50 50 mcg PO DAILY 11/12/24 11/19/24 Unknown mcg (2,000 unit) capsule (Vitamin D3) gentamicin 0.1 % topical cream 1 applic topical DAILY 11/12/24 11/19/24 11/18/24 lanolin alcohols-mineral 1 applic topical UD PRN SKIN CARE 11/12/24 11/19/24 Unknown oil-w.petrolatum-ceresin topical cream (Eucerin topical cream) maltodextrin 1 ea PO QAM PRN Constipation 11/12/24 11/19/24 Unknown menthol 0.44 %-zinc oxide 20.6 % 1 applic topical DAILY 11/12/24 11/19/24 Unknown topical ointment (Calmoseptine) metoprolol tartrate 25 mg tablet 25 mg PO DAILY PRN HR > 100 @ REST 11/12/24 11/19/24 Unknown pantoprazole 40 mg tablet,delayed 40 mg PO DAILY 11/12/24 11/19/24 11/18/24 09:00 release doxycycline hyclate 100 mg capsule 100 mg PO BID 6 days #12 caps 11/15/24 0 11/19/24 11/18/24 09:00 Active Medications Generic Name Dose Route Start Last Admin Trade Name Freq PRN Reason Stop Dose Admin Acetaminophen 500 mg 11/19/24 03:55 11/29/24 22:35 Acetaminophen 500 Mg Tab PO 01/19/25 03:54 500 mg Q6H PRN Administration fever/pain Albuterol 3 ml 12/06/24 09:03 12/10/24 10:22 Albut/Ipratrop 3mg/0.5mg Neb 3 Ml Vial NEB 02/05/25 09:02 3 ml Q4R PRN Administration Shortness Of Breath Or Wheezing Protocol Amiodarone HCl 200 mg 11/19/24 09:00 12/18/24 08:45 Amiodarone 200 Mg Tab PO 01/19/25 08:59 200 mg DAILY JULIANNA Administration Docusate Sodium 100 mg 11/19/24 09:00 12/18/24 08:45 Docusate Sodium 100 Mg Cap PO 01/19/25 08:59 100 mg BID JULIANNA Administration Guaifenesin/Dextromethorphan 5 ml 11/20/24 22:06 11/22/24 08:33 Guaifenesin/Dextrom Syrup 100mg/10mg 5ml Udc PO 01/20/25 22:05 5 ml Q6H PRN Administration Cough Insulin Aspart 0 units 12/10/24 21:00 12/18/24 08:52 Insulin Aspart Per Unit Charge SC 01/09/25 11:59 3 units ACHS JULIANNA Administration Lactobacillus Acidophilus 1,250 mg 11/19/24 09:00 11/27/24 09:00 Advanced Probiotic 625 Mg Capsule PO 01/19/25 08:59 1,250 mg DAILY JULIANNA Administration Lactobacillus Acidophilus 1 packet 11/27/24 17:00 12/18/24 07:32 Lactobacillus Acidophilus 1 Gm Pack PO 01/27/25 16:59 1 packet TIDM JULIANNA Administration Levalbuterol HCl 1.25 mg 11/20/24 22:06 11/21/24 22:57 Levalbuterol 1.25 Mg/3 Ml Neb NEB 01/20/25 22:05 1.25 mg Q4H PRN Administration Shortness Of Breath Or Wheezin Lidocaine 1 patch 11/20/24 16:45 12/18/24 08:45 Lidocaine 5% 1 Patch TD 01/20/25 16:44 Not Given QAM JULIANNA Loperamide HCl 2 mg 11/28/24 11:29 12/01/24 06:13 Loperamide Hcl 2 Mg Cap PO 01/28/25 11:28 2 mg Q4H PRN Administration Diarrhea Metoprolol Tartrate 25 mg 12/10/24 21:00 12/18/24 08:45 Metoprolol Tartrate 25 Mg Tab PO 01/09/25 20:59 Not Given BID JULIANNA Midodrine 2.5 mg 11/19/24 08:00 12/18/24 07:32 Midodrine Hcl 2.5 Mg Tab PO 01/19/25 07:59 2.5 mg TID@0800,1200,1700 JULIANNA Administration Midodrine 2.5 mg 12/14/24 08:19 12/15/24 13:08 Midodrine Hcl 2.5 Mg Tab PO 01/13/25 08:18 2.5 mg DAILY PRN Administration give on dialysis days only Miscellaneous 1 each 11/20/24 21:00 12/17/24 21:00 Remove Lidoderm Patch N/A 01/20/25 20:59 1 each DAILY@2100 JULIANNA Administration Miscellaneous 15 - 30 gm 11/23/24 20:59 12/02/24 14:15 Carbohydrates For Hypoglycemia PO 01/23/25 20:58 30 gm UD PRN Administration Hypoglycemia Protocol Miscellaneous 1 each 12/14/24 09:00 12/18/24 08:46 Midodrine*Pending Order N/A 01/13/25 08:59 1 each Q24H JULIANNA Administration Pantoprazole Sodium 40 mg 11/19/24 09:00 12/18/24 08:46 Pantoprazole 40 Mg Tab PO 01/19/25 08:59 40 mg DAILY JULIANNA Administration Polyethylene Glycol 17 gm 11/19/24 06:04 12/16/24 15:32 Polyethylene (Miralax) 17 Gm Pack PO 01/19/25 06:03 17 gm DAILY PRN Administration constipation Potassium Chloride 20 meq 12/17/24 21:00 12/18/24 08:46 Potassium Chloride Pwd 20 Meq Pack PO 01/16/25 20:59 20 meq BID JULIANNA Administration Vitamin B Complex/Folic Acid 1 cap 11/19/24 09:00 12/18/24 08:46 Nephrocaps PO 01/19/25 08:59 1 cap DAILY JULIANNA Administration Warfarin Sodium 1 mg 12/12/24 16:00 12/17/24 17:44 Warfarin Sod 1 Mg Tab PO 01/11/25 15:59 1 mg DAILY@1600 JULIANNA Administration
[2024-12-18 08:50] LABS: BUN Creatinine Ratio 5.6 (10-20); Calcium 9.1 mg/dl (8.6-10.3); Creatinine Clr Calc Pharmacy 16.4 ml/min; Magnesium 1.7 mg/dl (1.7-2.4); Phosphorus 2.6 mg/dl (2.5-4.9); Potassium 4.1 mmol/L (3.5-5.1)
--- NOTE | 2024-12-18 16:53 | Dialysis Progress Note ---
Date of Service December 18, 2024 Assessment & Plan (1) ESRD (end stage renal disease) on dialysis: Plan: ESRD currently on PD > switched to this b/c needs better oxygenation, needs lower 02 needs so can do HD, with known LVOT obstruction, making fluid removal VERY touchy w/ this modality. tolerates PD though has in past 24 hrs now desat'd even w/ this tx. Desat'd again end of tx 12/15 >>pulm recommends aggressive UF>> but will tonight go easy on UF b/c of concerns about worse 02 status >> 4 x 1.5% bags and 2 x 2.5% bags this evening reeval in a few days if we can change back to HD w/ gentle /conservative fluid removal goals and running on cold temp HD has been limited by hypotension > gave extra midodrine dose prior to tx 2.5 mg venofer w/ HD recently for T sat 16% on 12/13; hgb 10.3 today >> hold off on venofer while on PD as we cannot make it volume neutral GOAL remains for dialysis modalities is HD for rehab and PD after that/on return home; all of that said he is very debilitated and has challenges -- lung scarring, hypoxia which may well be chronic now, LVOT obstruction -- which affect his prognosis and clinical course anticipate not ready to consider rehab / d-c for several more days, if he makes it that long (2) Counseling regarding goals of care: Plan: see conversations w/ stakeholders on this 12/16 (3) Accident due to mechanical fall without injury: Plan: Continue PT and then rehab as feasible (4) Hyperkalemia: Plan: k 6.4 on 12/13; K supplements stopped; would not consider resuming until /unless he returns to PD >started K 20 mEq daily 12/16 and still low > continue K packets 20 mEq bid (5) 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 had emesis today after family brought shrimp cocktail. still minimal po. 2.3L UF yesterday w/ PD but desatt'd and 02 needs up again. extremely tired; tells me he's OK though. Review of Systems 2 Review of Systems: All systems reviewed & are unremarkable except as noted in Subjective Physical Exam 2 Constitutional: well developed, well nourished, + frail appearing and cooperative; no acute distress and no altered mental status Eyes: EOM intact bilaterally ENMT: Mouth: + dry oral mucous membranes Respiratory: normal respiratory effort and able to speak in complete sentences; no labored breathing and no cough Auscultation: + diminished lung sounds (extremely), + crackles and + bronchovesicular breath sounds Cardiovascular: Rate/Rhythm: regular rate and regular rhythm Heart Sounds: + murmur Extremities: no edema Gastrointestinal (Abdomen): Inspection/Auscultation: normal bowel sounds and + abdominal surgical drain present (PD catheter) Percussion/Palpation: abdomen soft; abdomen nontender Musculoskeletal: Extremities: strength 5/5 throughout Skin: no rashes, warm and dry Psychiatric: Orientation: alert and oriented x 3 Results & Data Vital Signs (Past 12 Hours) Vital Signs Temp Pulse Pulse Pulse Resp BP Pulse Ox 12/18/24 16:00 36.6 C 88 20 101/63 12/18/24 15:52 36.5 C 91 H 18 103/54 L 93 12/18/24 14:25 94 H 12/18/24 11:19 36.8 C 79 20 103/67 91 12/18/24 09:00 12/18/24 08:10 36.3 C L 92 H 18 12/18/24 07:35 84 12/18/24 07:25 36.3 C L 92 H 18 89/55 L 92 O2 Del Method O2 Flow Rate 12/18/24 16:00 12/18/24 15:52 Oxymask 6 12/18/24 14:25 12/18/24 11:19 Oxymask 6 12/18/24 09:00 Oxymask 8 12/18/24 08:10 12/18/24 07:35 12/18/24 07:25 Oxymask 8 Laboratory Results 12/17/24 08:26 12/18/24 07:32
[2024-12-19 10:49] LABS: BUN Creatinine Ratio 7.8 (10-20); Calcium 9.6 mg/dl (8.6-10.3); Creatinine Clr Calc Pharmacy 14.1 ml/min; Magnesium 1.6 mg/dl (1.7-2.4); Phosphorus 3.2 mg/dl (2.5-4.9); Potassium 4.5 mmol/L (3.5-5.1)
[2024-12-19 11:03] LABS: INR 1.4 (0.9-1.1); Prothrombin Time 14.3 Seconds (9.0-12.0)
--- NOTE | 2024-12-19 13:24 | Hospitalist Progress Note ---
Date of Service December 19, 2024 Assessment & Plan (1) Acute hypoxic respiratory failure: Plan: Mr. Samson is a 79-year-old male with PMH of PE/A-fib on Coumadin, hypertrophic CM, CAD, PVD, hypotension on midodrine, COPD/RLD, ESRD on PD, esophageal achalasia, cirrhosis, prostate cancer status post surgery, MGUS, chronic anemia [baseline hemoglobin of 10-11], cognitive impairment, inclusion body myositis, past tobacco abuse who was recently admitted for COVID - 19 pneumonia/sp decdron Rx for 3-4 days/discharged to [facility] on room air presents w/ c/o increasing weakness, fall (no head trauma, witnessed fall). Patient was noted to have signs of bilateral pneumonia and completed abx course. Meeting with son, Dominic, at 1530 on 12/16 to discuss code status and further goals. Son expressed desire to continue full efforts at this time to get patient stable for rehab. Reviewed CXR personally which is reveals right pleural effusion and increase pulmonary congestion and edema Spoke to Pulm off line who recommends that further fluid removal via HD/PD would be ideal as there is no accessible pocket Long discussion had with son and patient who wishes to remain full code. Discussed with nephrology, who agrees to trial PD for optimal fluid removal given inability to handle HD 2/2 LVOT as of 12/16 Patient has been tolerating PD thus far; however, oxygen desaturations noted overnight--oxygen during day ranging 4-8L NC and overnight 8-10L oxymask. Will continue to optimize volume status as tolerated Discussion with patient and son--will start Remeron for appetite #generalized weakness #Poor appetite patient declines discussion with behavioral health agrees to trial of mirtazipine 7.5mg qhs will uptitrate as tolerated #Right pleural effusion #Intermittent dyspnea *improving iso worsening respiratory failure and dyspnea no tap warranted, encouraged better volume optimization with HD v PD--transitioned to PD on 12/16 overnight #ESRD, briefly on HD to facilitate dispo, now on PD once more given hemodynamic intolerance patient transitioned from PD to HD during admission as patient will be going to SNF upon discharge (PD not done at SNF) HD catheter placed by Vascular sx during admission course c/b intradialysis hypotension Did well yesterday and today w/ very conservative UF per nephrology; however respiratory status questionable, but improving with PD #severe sepsis- resolved POA #Bilateral pneumonia #Acute hypoxic respiratory failure #COVID-19 infection c/b ARDS --CT chest with interval early bilateral pneumonia Compared to CT chest on 11/12 --ECHO: Mild concentric LVH. Asymmetric left ventricular hypertrophy involving the septum with maximal thickness of 2.1 cm. Outflow tract obstruction not identified. Cavity obliteration at mid ventricle. Left ventricle is hyperdynamic. EF > 70%. Aortic valve sclerosis mild, without significant aortic valve stenosis. --Peritoneal fluid analysis-no organism and wbc --Serology positive for COVID-19 --Blood cultures- negative to date Appreciate pulmonology input, signed off 11/23 Completed zosyn/doxycycline course & dexamethasone 10 day treatment Continue to wean oxygen as tolerated PT recommends SNF placement s/p ICU transfer on 12/10 for hypoxia, required Bipap Transferred from ICU 12/12, on 4-6L NC, briefly requiring bipap on 12/15; mostly desaturates at night time requiring oxymask encouraged to use Incentive Spirometry, Flutter Valve #Acute metabolic encephalopathy: likely 2/2 acute illness iso underlying cognitive impairment. continue with delirium precautions #Hypotension Continue midodrine #Suspected dysphagia Aspiration precaution Speech eval and recs noted #Troponin elevation secondary to illness in the setting of chronic kidney dysfunction, history ESRD on PD #Hyperglycemia secondary to diabetes HbA1c 6.7 Continue insulin while hospitalized Monitor BGs #H/O PE/A-fib (early TBS) On Coumadin--initially held due to supratherapeutic INR. Got Vit K on 12/02/24 Warfarin resumed. Monitor INR Continue metoprolol, amiodarone. #Hypertrophic cardiomyopathy - Toprol XL changed to Metoprolol tartrate 25mg BID CAD/ PVD COPD/RLD as per records Cirrhosis on imaging from past admission Prostate cancer S/P surgery Chronic anemia, Hb stable Inclusion body myositis as per records, patient to decide on steroid Rx recommendation from local neurologist following recent outpatient visit Subclinical hypothyroidism , needs repeat thyroid function test in 6 weeks as outpatient Past tobacco abuse. CODE STATUS Full code Disposition transition to SNF when O2 stable Admission and Anticipated Discharge Date Admission Date: November 19, 2024 Subjective Evaluated on multiple occasions. Denies any new symptoms-- states he has no appetite, but reports wanting milkshake states he doesn't feel short of breath or in any distress Physical Exam Constitutional: chronically ill appearing gentleman Respiratory: diminished breathsounds bilaterally otherwise no crackles or wheezing noted Results & Data Results & Data Vital Signs (Past 12 Hours) Vital Signs Temp Pulse Pulse Pulse Resp BP BP 12/19/24 10:49 36.6 C 86 17 96/59 L 12/19/24 10:44 85 12/19/24 08:19 36.7 C 89 99/63 L 12/19/24 08:11 12/19/24 07:05 36.7 C 106 H 18 98/61 L 12/19/24 04:14 37.1 C 84 18 115/64 Pulse Ox O2 Del Method O2 Flow Rate 12/19/24 10:49 94 Oxymask 10 12/19/24 10:44 12/19/24 08:19 12/19/24 08:11 Oxymask 6 12/19/24 07:05 95 Oxymask 6 12/19/24 04:14 93 Oxymask 6 Laboratory Results BMP 12/19/24 10:07 Sodium 134 L Potassium 4.5 Chloride 95 L Carbon Dioxide 33 H BUN 37 H Creatinine 4.75 H* D Glucose 189 H Calcium 9.6 Medications Administered Home Medications Medication Instructions Recorded Confirmed Last Taken amiodarone 200 mg tablet 200 mg PO DAILY 10/16/24 11/19/24 11/18/24 metoprolol succinate 25 mg 25 mg PO DAILY 10/16/24 11/19/24 11/18/24 09:00 tablet,extended release 24 hr midodrine 2.5 mg tablet 2.5 mg PO AMPM 10/16/24 11/19/24 11/18/24 09:00 warfarin 2 mg tablet 2 mg PO DAILY 10/19/24 11/19/24 11/18/24 09:00 docusate sodium 100 mg capsule 100 mg PO BID #60 caps 10/21/24 11/19/24 11/18/24 09:00 polyethylene glycol 3350 17 gram 17 g PO DAILY PRN constipation #30 10/21/24 11/19/24 Unknown oral powder packet (Miralax) ea Lactobacillus acidophilus 1 tab PO DAILY 11/12/24 11/19/24 Unknown Renal Multivit W/1mg Or <Fa 1 tab PO DAILY 11/12/24 11/19/24 11/18/24 09:00 acetaminophen 500 mg tablet 500 mg PO Q6H 11/12/24 11/19/24 11/18/24 20:00 cholecalciferol (vitamin D3) 50 50 mcg PO DAILY 11/12/24 11/19/24 Unknown mcg (2,000 unit) capsule (Vitamin D3) gentamicin 0.1 % topical cream 1 applic topical DAILY 11/12/24 11/19/24 11/18/24 lanolin alcohols-mineral 1 applic topical UD PRN SKIN CARE 11/12/24 11/19/24 Unknown oil-w.petrolatum-ceresin topical cream (Eucerin topical cream) maltodextrin 1 ea PO QAM PRN Constipation 11/12/24 11/19/24 Unknown menthol 0.44 %-zinc oxide 20.6 % 1 applic topical DAILY 11/12/24 11/19/24 Unknown topical ointment (Calmoseptine) metoprolol tartrate 25 mg tablet 25 mg PO DAILY PRN HR > 100 @ REST 11/12/24 11/19/24 Unknown pantoprazole 40 mg tablet,delayed 40 mg PO DAILY 11/12/24 11/19/24 11/18/24 09:00 release doxycycline hyclate 100 mg capsule 100 mg PO BID 6 days #12 caps 11/15/24 11/19/24 11/18/24 09:00 Active Medications Generic Name Dose Route Start Last Admin Trade Name Freq PRN Reason Stop Dose Admin Acetaminophen 500 mg 11/19/24 03:55 11/29/24 22:35 Acetaminophen 500 Mg Tab PO 01/19/25 03:54 500 mg Q6H PRN Administration fever/pain Albuterol 3 ml 12/06/24 09:03 12/10/24 10:22 Albut/Ipratrop 3mg/0.5mg Neb 3 Ml Vial NEB 02/05/25 09:02 3 ml Q4R PRN Administration Shortness Of Breath Or Wheezing Protocol Amiodarone HCl 200 mg 11/19/24 09:00 12/19/24 08:49 Amiodarone 200 Mg Tab PO 01/19/25 08:59 200 mg DAILY JULIANNA Administration Docusate Sodium 100 mg 11/19/24 09:00 12/19/24 08:57 Docusate Sodium 100 Mg Cap PO 01/19/25 08:59 Not Given BID JULIANNA Guaifenesin/Dextromethorphan 5 ml 11/20/24 22:06 11/22/24 08:33 Guaifenesin/Dextrom Syrup 100mg/10mg 5ml Udc PO 01/20/25 22:05 5 ml Q6H PRN Administration Cough Insulin Aspart 0 units 12/10/24 21:00 12/19/24 12:41 Insulin Aspart Per Unit Charge SC 01/09/25 11:59 3 units ACHS JULIANNA Administration Lactobacillus Acidophilus 1,250 mg 11/19/24 09:00 11/27/24 09:00 Advanced Probiotic 625 Mg Capsule PO 01/19/25 08:59 1,250 mg DAILY JULIANNA Administration Lactobacillus Acidophilus 1 packet 11/27/24 17:00 12/19/24 12:42 Lactobacillus Acidophilus 1 Gm Pack PO 01/27/25 16:59 1 packet TIDM JULIANNA Administration Levalbuterol HCl 1.25 mg 11/20/24 22:06 11/21/24 22:57 Levalbuterol 1.25 Mg/3 Ml Neb NEB 01/20/25 22:05 1.25 mg Q4H PRN Administration Shortness Of Breath Or Wheezin Lidocaine 1 patch 11/20/24 16:45 12/19/24 08:52 Lidocaine 5% 1 Patch TD 01/20/25 16:44 Not Given QAM JULIANNA Loperamide HCl 2 mg 11/28/24 11:29 12/01/24 06:13 Loperamide Hcl 2 Mg Cap PO 01/28/25 11:28 2 mg Q4H PRN Administration Diarrhea Metoprolol Tartrate 25 mg 12/10/24 21:00 12/19/24 08:49 Metoprolol Tartrate 25 Mg Tab PO 01/09/25 20:59 25 mg BID JULIANNA Administration Midodrine 2.5 mg 11/19/24 08:00 12/19/24 13:22 Midodrine Hcl 2.5 Mg Tab PO 01/19/25 07:59 2.5 mg TID@0800,1200,1700 JULIANNA Administration Midodrine 2.5 mg 12/14/24 08:19 12/19/24 08:57 Midodrine Hcl 2.5 Mg Tab PO 01/13/25 08:18 2.5 mg DAILY PRN Administration give on dialysis days only Miscellaneous 1 each 11/20/24 21:00 12/18/24 20:12 Remove Lidoderm Patch N/A 01/20/25 20:59 1 each DAILY@2100 JULIANNA Administration Miscellaneous 15 - 30 gm 11/23/24 20:59 12/02/24 14:15 Carbohydrates For Hypoglycemia PO 01/23/25 20:58 30 gm UD PRN Administration Hypoglycemia Protocol Miscellaneous 1 each 12/14/24 09:00 12/19/24 08:58 Midodrine*Pending Order N/A 01/13/25 08:59 1 each Q24H JULIANNA Administration Pantoprazole Sodium 40 mg 11/19/24 09:00 12/19/24 08:49 Pantoprazole 40 Mg Tab PO 01/19/25 08:59 40 mg DAILY JULIANNA Administration Polyethylene Glycol 17 gm 11/19/24 06:04 12/16/24 15:32 Polyethylene (Miralax) 17 Gm Pack PO 01/19/25 06:03 17 gm DAILY PRN Administration constipation Potassium Chloride 20 meq 12/17/24 21:00 12/19/24 09:37 Potassium Chloride Pwd 20 Meq Pack PO 01/16/25 20:59 20 meq BID JULIANNA Administration Vitamin B Complex/Folic Acid 1 cap 11/19/24 09:00 12/19/24 09:37 Nephrocaps PO 01/19/25 08:59 1 cap DAILY JULIANNA Administration
[2024-12-19] MEDS: WARFARIN SOD 2 MG TAB PO SCH (16:08)
--- NOTE | 2024-12-19 17:23 | Nephrology Progress Note ---
Date of Service December 19, 2024 Assessment & Plan (1) ESRD (end stage renal disease) on dialysis: Plan: ESRD currently on PD > switched to this b/c needs better oxygenation, needs lower 02 needs so can do HD, with known LVOT obstruction, making fluid removal VERY touchy w/ this modality. tolerates PD though has in past 48 hrs now desat'd even w/ this tx. Desat'd again end of tx 12/15 >>pulm recommends aggressive UF>> but will tonight go easy on UF b/c of concerns about worse 02 status >> 6 x 1.5% bags this evening reeval in a few days if we can change back to HD w/ gentle /conservative fluid removal goals and running on cold temp HD has been limited by hypotension > gave extra midodrine dose prior to tx 2.5 mg venofer w/ HD recently for T sat 16% on 12/13; hgb not checked in a few days and ordered for AM >> hold off on venofer while on PD as we cannot make it volume neutral GOAL remains for dialysis modalities is HD for rehab and PD after that/on return home; all of that said he is very debilitated and has challenges -- lung scarring, hypoxia which may well be chronic now, LVOT obstruction -- which affect his prognosis and clinical course anticipate not ready to consider rehab / d-c for several more days, if he makes it that long Care coordinated w/ Dr Douglas re goals of care, current modality strategy, med changes by phone; we are in agreement. 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: Plan: have to be very gentle w/ UF on hd; avoid vol depletion Admission and Anticipated Discharge Date Admission Date: November 19, 2024 Subjective on quite variable 02 from 6-10 L ; no pain, +BM; no worse sob; eating best he can which is little Review of Systems 2 Review of Systems: All systems reviewed & are unremarkable except as noted in Subjective Physical Exam 2 Constitutional: well developed, well nourished, + frail appearing, cooperative and + in distress (mild w/ breathing ); no acute distress and no altered mental status Eyes: EOM intact bilaterally ENMT: Mouth: + dry oral mucous membranes Respiratory: normal respiratory effort, able to speak in complete sentences and + tachypneic; no labored breathing and no cough Auscultation: + diminished lung sounds (extremely) and + crackles Cardiovascular: Rate/Rhythm: regular rate and regular rhythm Heart Sounds: + murmur Extremities: no edema Gastrointestinal (Abdomen): Inspection/Auscultation: normal bowel sounds and + abdominal surgical drain present (PD catheter) Percussion/Palpation: abdomen soft; abdomen nontender Musculoskeletal: Extremities: strength 5/5 throughout Skin: no rashes, warm and dry Psychiatric: Orientation: alert and oriented x 3 Results & Data Vital Signs (Past 12 Hours) Vital Signs Temp Pulse Pulse Pulse Resp BP BP 12/19/24 17:05 37.1 C 90 87 18 102/61 12/19/24 15:33 37.1 C 87 18 93/59 L 12/19/24 13:54 12/19/24 10:49 36.6 C 86 17 96/59 L 12/19/24 10:44 85 12/19/24 08:19 36.7 C 89 99/63 L 12/19/24 08:11 12/19/24 07:05 36.7 C 106 H 18 98/61 L Pulse Ox O2 Del Method O2 Flow Rate 12/19/24 17:05 12/19/24 15:33 91 Nasal Cannula 6 12/19/24 13:54 99 Oxymask 10 12/19/24 10:49 94 Oxymask 10 12/19/24 10:44 12/19/24 08:19 12/19/24 08:11 Oxymask 6 12/19/24 07:05 95 Oxymask 6 Laboratory Results 12/17/24 08:26 12/19/24 10:07
[2024-12-19] MEDS: MIRTAZAPINE TAB 15 MG TAB PO SCH (20:14)
--- NOTE | 2024-12-20 07:38 | XRay Report ---
EXAM: XR chest 1V portable CLINICAL HISTORY: hypoxia TECHNIQUE: An X-ray image of the chest is obtained in 1 AP projection. COMPARISON: 12/16/2024. FINDINGS: Pulmonary Parenchyma: Regression of the faint reticular densities were noted at both middle and lower lung zones. Currently noted bilateral middle and lower lung zones scattered consolidative patches. Blunting of both costophrenic angle suggests a small effusion stable in amount since the prior study. Heart and Mediastinum: Heart size and shape are normal. No mediastinal widening or masses. No hilar or mediastinal lymphadenopathy. Bony Thorax: The bony thorax appears intact without fractures or deformities. Soft Tissues: Soft tissues overlying the chest wall are unremarkable IMPRESSION: 1. Regression of the faint reticular densities were noted at both middle and lower lung zones. 2. Currently noted bilateral middle and lower lung zones scattered consolidative patches (new findings); likely inflammatory. 3. Blunting of both costophrenic angle suggests a small effusion stable in amount since the prior study. Electronically signed by Torie Merino 12-20-2024 07:38 AM
[2024-12-20 09:02] LABS: BUN Creatinine Ratio 8.2 (10-20); Calcium 9.3 mg/dl (8.6-10.3); Creatinine Clr Calc Pharmacy 13.4 ml/min; Magnesium 1.5 mg/dl (1.7-2.4); Potassium 4.8 mmol/L (3.5-5.1)
[2024-12-20 09:12] LABS: INR 1.3 (0.9-1.1); Prothrombin Time 13.5 Seconds (9.0-12.0)
[2024-12-20] MEDS: POTASSIUM CHLORIDE PWD 20 MEQ PACK PO SCH (09:58)
--- NOTE | 2024-12-20 10:44 | Dialysis Progress Note ---
Date of Service December 20, 2024 Assessment & Plan Admission and Anticipated Discharge Date Admission Date: November 19, 2024 Subjective Assessment & Plan (1) ESRD (end stage renal disease) on dialysis: Plan: ESRD currently on PD > switched to this b/c needs better oxygenation, needs lower 02 needs so can do HD, with known LVOT obstruction, making fluid removal VERY touchy w/ this modality. tolerates PD though has in past 48 hrs now desat'd even w/ this tx. Desat'd again end of tx 12/15 >>pulm recommends aggressive UF>> but will tonight go easy on UF b/c of concerns about worse 02 status >> 6 x 1.5% bags this evening reeval in a few days if we can change back to HD w/ gentle /conservative fluid removal goals and running on cold temp HD has been limited by hypotension. gave extra midodrine dose prior to tx 2.5 mg venofer w/ HD recently for T sat 16% on 12/13; hgb not checked in a few days and ordered for AM >> hold off on venofer while on PD as we cannot make it volume neutral GOAL remains for dialysis modalities is HD for rehab and PD after that/on return home. There is no hope for eventual improvement though---Fibrotic phase of ARDS. I dont see him ever getting to the position where he would not have intermittent desat--he will be back as soon as that happens if we discharge him anywhere. I really wanted to talk with him in more detail. hard when his hearing is ppor--hearing aid does not work. But he did say he wants to continue to do dialysis. I will talk in more detail with patient tomorrow. Low Mag and can be replaced. Care coordinated w/ Dr Douglas re goals of care, current modality strategy, med changes by phone; we are in agreement. (2) Counseling regarding goals of care: Plan: see conversations w/ stakeholders on this 12/16 As of now its the patient who wants to do everything. 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 on quite variable 02 from 6-10 L. No UF at all last night with all 1.5%. No pain, +BM; no worse sob; eating best he can which is little Physical Exam Constitutional: well developed, well nourished, + frail appearing, cooperative and + in distress (mild w/ breathing ); no acute distress and no altered mental status Eyes: EOM intact bilaterally ENMT: Mouth: + dry oral mucous membranes Respiratory: normal respiratory effort, able to speak in complete sentences and + tachypneic; no labored breathing and no cough Auscultation: + diminished lung sounds (extremely) and + crackles Cardiovascular: Rate/Rhythm: regular rate and regular rhythm Heart Sounds: + murmur Extremities: no edema Gastrointestinal (Abdomen): Inspection/Auscultation: normal bowel sounds and + abdominal surgical drain present (PD catheter) Percussion/Palpation: abdomen soft; abdomen nontender Musculoskeletal: Extremities: strength 5/5 throughout Skin: no rashes, warm and dry Psychiatric: Orientation: alert and oriented x 3 Results & Data Vital Signs (Past 12 Hours) Vital Signs Temp Pulse Pulse Pulse Resp BP BP 12/20/24 10:29 36.9 C 82 17 97/59 L 12/20/24 08:30 36.7 C 100 H 17 102/64 12/20/24 08:15 36.6 C 100 H 24 12/20/24 07:53 110 H 12/20/24 07:26 12/20/24 03:11 36.6 C 88 17 111/64 12/20/24 00:00 82 12/19/24 23:20 36.6 C 84 18 115/60 Pulse Ox O2 Del Method O2 Flow Rate 12/20/24 10:29 96 High Flow Nasal Cannula 5 12/20/24 08:30 97 High Flow Nasal Cannula 9 12/20/24 08:15 12/20/24 07:53 12/20/24 07:26 Nasal Cannula 9 12/20/24 03:11 90 Nasal Cannula 6 12/20/24 00:00 12/19/24 23:20 92 Nasal Cannula 6
--- NOTE | 2024-12-20 11:23 | Hospitalist Progress Note ---
Date of Service December 20, 2024 Assessment & Plan (1) Acute hypoxic respiratory failure: Plan: Mr. Samson is a 79-year-old male with PMH of PE/A-fib on Coumadin, hypertrophic CM, CAD, PVD, hypotension on midodrine, COPD/RLD, ESRD on PD, esophageal achalasia, cirrhosis, prostate cancer status post surgery, MGUS, chronic anemia [baseline hemoglobin of 10-11], cognitive impairment, inclusion body myositis, past tobacco abuse who was recently admitted for COVID - 19 pneumonia/sp decdron Rx for 3-4 days/discharged to [facility] on room air presents w/ c/o increasing weakness, fall (no head trauma, witnessed fall). Patient was noted to have signs of bilateral pneumonia and completed abx course. Meeting with son, Dominic, at 1530 on 12/16 to discuss code status and further goals. Son expressed desire to continue full efforts at this time to get patient stable for rehab. Reviewed CXR personally which is reveals right pleural effusion and increase pulmonary congestion and edema Spoke to Pulm off line who recommends that further fluid removal via HD/PD would be ideal as there is no accessible pocket Long discussion had with son and patient who wishes to remain full code. Discussed with nephrology, who agrees to trial PD for optimal fluid removal given inability to handle HD 2/2 LVOT as of 12/16 Patient has been tolerating PD thus far; however, oxygen desaturations noted overnight--oxygen during day ranging 4-8L NC and overnight 8-10L oxymask. Will continue to optimize volume status as tolerated Continuing to wean oxygen as needed. Continued conversation to express the poor recovery for patient. Patient seemingly not understanding depth of process and patient's son is requesting level of care not able to be reasonably provided in hospital. 65 minutes spent to discuss that the oxygenation is at a level that may not be stable for any SNF . Worked to attempt to discuss LTAC, however, son fixated on securing nasal cannula, therefore will work to secure NC to patient's face to demonstrate that patient still has extreme oxygen requirements #generalized weakness #Poor appetite patient declines discussion with behavioral health agrees to trial of mirtazipine 7.5mg qhs will uptitrate as tolerated #Right pleural effusion #Intermittent dyspnea *improving iso worsening respiratory failure and dyspnea no tap warranted, encouraged better volume optimization with HD v PD--transitio noreen to PD on 12/16 overnight #ESRD, briefly on HD to facilitate dispo, now on PD once more given hemodynamic intolerance patient transitioned from PD to HD during admission as patient will be going to SNF upon discharge (PD not done at SNF) HD catheter placed by Vascular sx during admission course c/b intradialysis hypotension Did well yesterday and today w/ very conservative UF per nephrology; however respiratory status questionable, but improving with PD #severe sepsis- resolved POA #Bilateral pneumonia #Acute hypoxic respiratory failure #COVID-19 infection c/b ARDS --CT chest with interval early bilateral pneumonia Compared to CT chest on 11/12 --ECHO: Mild concentric LVH. Asymmetric left ventricular hypertrophy involving the septum with maximal thickness of 2.1 cm. Outflow tract obstruction not identified. Cavity obliteration at mid ventricle. Left ventricle is hyperdynamic. EF > 70%. Aortic valve sclerosis mild, without significant aortic valve stenosis. --Peritoneal fluid analysis-no organism and wbc --Serology positive for COVID-19 --Blood cultures- negative to date Appreciate pulmonology input, signed off 11/23 Completed zosyn/doxycycline course & dexamethasone 10 day treatment Continue to wean oxygen as tolerated PT recommends SNF placement s/p ICU transfer on 12/10 for hypoxia, required Bipap Transferred from ICU 12/12, on 4-6L NC, briefly requiring bipap on 12/15; mostly desaturates at night time requiring oxymask encouraged to use Incentive Spirometry, Flutter Valve #Acute metabolic encephalopathy: likely 2/2 acute illness iso underlying cognitive impairment. continue with delirium precautions #Hypotension Continue midodrine #Suspected dysphagia Aspiration precaution Speech eval and recs noted #Troponin elevation secondary to illness in the setting of chronic kidney dysfunction, history ESRD on PD #Hyperglycemia secondary to diabetes HbA1c 6.7 Continue insulin while hospitalized Monitor BGs #H/O PE/A-fib (early TBS) On Coumadin--initially held due to supratherapeutic INR. Got Vit K on 12/02/24 Warfarin resumed. Monitor INR Continue metoprolol, amiodarone. #Hypertrophic cardiomyopathy - Toprol XL changed to Metoprolol tartrate 25mg BID CAD/ PVD COPD/RLD as per records Cirrhosis on imaging from past admission Prostate cancer S/P surgery Chronic anemia, Hb stable Inclusion body myositis as per records, patient to decide on steroid Rx recommendation from local neurologist following recent outpatient visit Subclinical hypothyroidism , needs repeat thyroid function test in 6 weeks as outpatient Past tobacco abuse. CODE STATUS Full code Disposition transition to SNF when O2 stable; however, conversations ongoing with perhaps to encourage LTAC, however, son reluctant for in depth conversation at this time Admission and Anticipated Discharge Date Admission Date: November 19, 2024 Subjective minimal UF still with fluctuating oxygen requirement denies any concerns but not willing tele reviewed with episodes of rvr to 120s Physical Exam Constitutional: no distress, minimally conversation Respiratory: diminished bilaterally Cardiovascular: irregularly irregular Results & Data Results & Data Vital Signs (Past 12 Hours) Vital Signs Temp Pulse Pulse Pulse Resp BP BP 12/20/24 10:29 36.9 C 82 17 97/59 L 12/20/24 08:30 36.7 C 100 H 17 102/64 12/20/24 08:15 36.6 C 100 H 24 12/20/24 07:53 110 H 12/20/24 07:26 12/20/24 03:11 36.6 C 88 17 111/64 12/20/24 00:00 82 12/19/24 23:20 36.6 C 84 18 115/60 Pulse Ox O2 Del Method O2 Flow Rate 12/20/24 10:29 96 High Flow Nasal Cannula 5 12/20/24 08:30 97 High Flow Nasal Cannula 9 12/20/24 08:15 12/20/24 07:53 12/20/24 07:26 Nasal Cannula 9 12/20/24 03:11 90 Nasal Cannula 6 12/20/24 00:00 12/19/24 23:20 92 Nasal Cannula 6 Laboratory Results Short CBC 12/20/24 Range/Units 07:10 Hgb 10.7 L (14.0-18.0) g/dl BMP 12/20/24 08:13 Sodium 135 L Potassium 4.8 Chloride 95 L Carbon Dioxide 33 H BUN 41 H Creatinine 4.98 H* Glucose 161 H Calcium 9.3 Medications Administered Home Medications Medication Instructions Recorded Confirmed Last Taken amiodarone 200 mg tablet 200 mg PO DAILY 10/16/24 11/19/24 11/18/24 metoprolol succinate 25 mg 25 mg PO DAILY 10/16/24 11/19/24 11/18/24 09:00 tablet,extended release 24 hr midodrine 2.5 mg tablet 2.5 mg PO AMPM 10/16/24 11/19/24 11/18/24 09:00 warfarin 2 mg tablet 2 mg PO DAILY 10/19/24 11/19/24 11/18/24 09:00 docusate sodium 100 mg capsule 100 mg PO BID #60 caps 10/21/24 11/19/24 11/18/24 09:00 polyethylene glycol 3350 17 gram 17 g PO DAILY PRN constipation #30 10/21/24 11/19/24 Unknown oral powder packet (Miralax) ea Lactobacillus acidophilus 1 tab PO DAILY 11/12/24 11/19/24 Unknown Renal Multivit W/1mg Or <Fa 1 tab PO DAILY 11/12/24 11/19/24 11/18/24 09:00 acetaminophen 500 mg tablet 500 mg PO Q6H 11/12/24 11/19/24 11/18/24 20:00 cholecalciferol (vitamin D3) 50 50 mcg PO DAILY 11/12/24 11/19/24 Unknown mcg (2,000 unit) capsule (Vitamin D3) gentamicin 0.1 % topical cream 1 applic topical DAILY 11/12/24 11/19/24 11/18/24 lanolin alcohols-mineral 1 applic topical UD PRN SKIN CARE 11/12/24 11/19/24 Unknown oil-w.petrolatum-ceresin topical cream (Eucerin topical cream) maltodextrin 1 ea PO QAM PRN Constipation 11/12/24 11/19/24 Unknown menthol 0.44 %-zinc oxide 20.6 % 1 applic topical DAILY 11/12/24 11/19/24 Unknown topical ointment (Calmoseptine) metoprolol tartrate 25 mg tablet 25 mg PO DAILY PRN HR > 100 @ REST 11/12/24 11/19/24 Unknown pantoprazole 40 mg tablet,delayed 40 mg PO DAILY 11/12/24 11/19/24 11/18/24 09:00 release doxycycline hyclate 100 mg capsule 100 mg PO BID 6 days #12 caps 11/15/24 11/19/24 11/18/24 09:00 Active Medications Generic Name Dose Route Start Last Admin Trade Name Freq PRN Reason Stop Dose Admin Acetaminophen 500 mg 11/19/24 03:55 11/29/24 22:35 Acetaminophen 500 Mg Tab PO 04/02/25 03:54 500 mg Q6H PRN Administration fever/pain Albuterol 3 ml 12/06/24 09:03 12/10/24 10:22 Albut/Ipratrop 3mg/0.5mg Neb 3 Ml Vial NEB 02/05/25 09:02 3 ml Q4R PRN Administration Shortness Of Breath Or Wheezing Protocol Amiodarone HCl 200 mg 11/19/24 09:00 12/20/24 08:11 Amiodarone 200 Mg Tab PO 01/19/25 08:59 200 mg DAILY JULIANNA Administration Docusate Sodium 100 mg 11/19/24 09:00 12/20/24 08:12 Docusate Sodium 100 Mg Cap PO 01/19/25 08:59 Not Given BID JULIANNA Guaifenesin/Dextromethorphan 5 ml 11/20/24 22:06 11/22/24 08:33 Guaifenesin/Dextrom Syrup 100mg/10mg 5ml Udc PO 01/20/25 22:05 5 ml Q6H PRN Administration Cough Insulin Aspart 0 units 12/10/24 21:00 12/20/24 09:15 Insulin Aspart Per Unit Charge SC 01/09/25 11:59 2 units ACHS JULIANNA Administration Lactobacillus Acidophilus 1,250 mg 11/19/24 09:00 11/27/24 09:00 Advanced Probiotic 625 Mg Capsule PO 01/19/25 08:59 1,250 mg DAILY JULIANNA Administration Lactobacillus Acidophilus 1 packet 11/27/24 17:00 12/20/24 08:12 Lactobacillus Acidophilus 1 Gm Pack PO 01/27/25 16:59 1 packet TIDM JULIANNA Administration Levalbuterol HCl 1.25 mg 11/20/24 22:06 11/21/24 22:57 Levalbuterol 1.25 Mg/3 Ml Neb NEB 01/20/25 22:05 1.25 mg Q4H PRN Administration Shortness Of Breath Or Wheezin Lidocaine 1 patch 11/20/24 16:45 12/20/24 08:12 Lidocaine 5% 1 Patch TD 01/20/25 16:44 Not Given QAM JULIANNA Loperamide HCl 2 mg 11/28/24 11:29 12/01/24 06:13 Loperamide Hcl 2 Mg Cap PO 01/28/25 11:28 2 mg Q4H PRN Administration Diarrhea Metoprolol Tartrate 25 mg 12/10/24 21:00 12/20/24 08:11 Metoprolol Tartrate 25 Mg Tab PO 01/09/25 20:59 25 mg BID JULIANNA Administration Midodrine 2.5 mg 11/19/24 08:00 12/20/24 08:12 Midodrine Hcl 2.5 Mg Tab PO 01/19/25 07:59 2.5 mg TID@0800,1200,1700 JULIANNA Administration Midodrine 2.5 mg 12/14/24 08:19 12/19/24 08:57 Midodrine Hcl 2.5 Mg Tab PO 01/13/25 08:18 2.5 mg DAILY PRN Administration give on dialysis days only Mirtazapine 7.5 mg 12/19/24 21:00 12/19/24 20:14 Mirtazapine Tab 15 Mg Tab PO 01/18/25 20:59 7.5 mg HS JULIANNA Administration Miscellaneous 1 each 11/20/24 21:00 12/19/24 20:14 Remove Lidoderm Patch N/A 01/20/25 20:59 1 each DAILY@2100 JULIANNA Administration Miscellaneous 15 - 30 gm 11/23/24 20:59 12/02/24 14:15 Carbohydrates For Hypoglycemia PO 01/23/25 20:58 30 gm UD PRN Administration Hypoglycemia Protocol Miscellaneous 1 each 12/14/24 09:00 12/20/24 09:58 Midodrine*Pending Order N/A 01/13/25 08:59 Not Given Q24H JULIANNA Pantoprazole Sodium 40 mg 11/19/24 09:00 12/20/24 08:12 Pantoprazole 40 Mg Tab PO 01/19/25 08:59 40 mg DAILY JULIANNA Administration Polyethylene Glycol 17 gm 11/19/24 06:04 12/16/24 15:32 Polyethylene (Miralax) 17 Gm Pack PO 01/19/25 06:03 17 gm DAILY PRN Administration constipation Vitamin B Complex/Folic Acid 1 cap 11/19/24 09:00 12/20/24 08:12 Nephrocaps PO 01/19/25 08:59 1 cap DAILY JULIANNA Administration
[2024-12-20] MEDS: MAGNESIUM SULFATE / D5W 1 GM/100 ML BAG IV SCH (11:53)
[2024-12-20] MEDS: WARFARIN SOD 3 MG TAB PO SCH (16:51)
[2024-12-21 06:46] LABS: Hematocrit (blood only) 33.9 % (42.0-52.0); Hemoglobin 10.9 g/dl (14.0-18.0); Mean Corpuscular Hemoglobin 28.7 pg (25.0-34.0); Mean Corpuscular Hgb Conc 32.2 g/dL (32.0-36.0); Mean Corpuscular Volume 89.2 fL (80.0-100.0); Mean Platelet Volume 11.4 fL (9.4-12.4); Platelet Count 424 K/uL (130-400); RDW Coefficient of Variation 16.8 % (11.5-14.5); RDW Standard Deviation 54.4 fL (36.4-46.3); White Blood Count 17.75 K/ul (4.8-10.8)
[2024-12-21 06:52] LABS: BUN Creatinine Ratio 8.4 (10-20); Calcium 9.2 mg/dl (8.6-10.3); Creatinine Clr Calc Pharmacy 12.7 ml/min; Magnesium 2.2 mg/dl (1.7-2.4); Phosphorus 3.9 mg/dl (2.5-4.9); Potassium 4.2 mmol/L (3.5-5.1)
[2024-12-21 07:23] LABS: INR 1.5 (0.9-1.1); Prothrombin Time 16.1 Seconds (9.0-12.0)
--- NOTE | 2024-12-21 08:21 | Hospitalist Progress Note ---
Date of Service December 21, 2024 Assessment & Plan (1) Acute hypoxic respiratory failure: Plan: Mr. Samson is a 79-year-old male with PMH of PE/A-fib on Coumadin, hypertrophic CM, CAD, PVD, hypotension on midodrine, COPD/RLD, ESRD on PD, esophageal achalasia, cirrhosis, prostate cancer status post surgery, MGUS, chronic anemia [baseline hemoglobin of 10-11], cognitive impairment, inclusion body myositis, past tobacco abuse who was recently admitted for COVID - 19 pneumonia/sp decdron Rx for 3-4 days/discharged to [facility] on room air presents w/ c/o increasing weakness, fall (no head trauma, witnessed fall). Patient was noted to have signs of bilateral pneumonia and completed abx course. Meeting with son, Dominic, at 1530 on 12/16 to discuss code status and further goals. Son expressed desire to continue full efforts at this time to get patient stable for rehab. Reviewed CXR personally which is reveals right pleural effusion and increase pulmonary congestion and edema Spoke to Pulm off line who recommends that further fluid removal via HD/PD would be ideal as there is no accessible pocket Long discussion had with son and patient who wishes to remain full code. Discussed with nephrology, who agrees to trial PD for optimal fluid removal given inability to handle HD 2/2 LVOT as of 12/16 Patient has been tolerating PD thus far; however, oxygen desaturations noted overnight--oxygen during day ranging 4-8L NC and overnight 8-10L oxymask. Will continue to optimize volume status as tolerated Continuing to wean oxygen as needed. PD ongoing. Respiratory status tenuous. New leukocytosis and thrombocytosis without obvious signs of infection #leukocytosis given stability at this time will hold abx no localizing symptoms, question if component of hemoconcentration as all cell lines up repeat cbc this afternooon #generalized weakness #Poor appetite patient declines discussion with behavioral health increase to 15mg this evening will uptitrate as tolerated #Right pleural effusion *stable #Intermittent dyspnea *improving iso worsening respiratory failure and dyspnea no tap warranted, encouraged better volume optimization with HD v PD--transitioned to PD on 12/16 overnight #ESRD, briefly on HD to facilitate dispo, now on PD once more given hemodynamic intolerance patient transitioned from PD to HD during admission as patient will be going to SNF upon discharge (PD not done at SNF) HD catheter placed by Vascular sx during admission course c/b intradialysis hypotension Did well yesterday and today w/ very conservative UF per nephrology; however respiratory status questionable, but improving with PD #severe sepsis- resolved POA #Bilateral pneumonia #Acute hypoxic respiratory failure #COVID-19 infection c/b ARDS --CT chest with interval early bilateral pneumonia Compared to CT chest on 11/12 --ECHO: Mild concentric LVH. Asymmetric left ventricular hypertrophy involving the septum with maximal thickness of 2.1 cm. Outflow tract obstruction not identified. Cavity obliteration at mid ventricle. Left ventricle is hyperdynamic. EF > 70%. Aortic valve sclerosis mild, without significant aortic valve stenosis. --Peritoneal fluid analysis-no organism and wbc --Serology positive for COVID-19 --Blood cultures- negative to date Appreciate pulmonology input, signed off 11/23 Completed zosyn/doxycycline course & dexamethasone 10 day treatment Continue to wean oxygen as tolerated PT recommends SNF placement s/p ICU transfer on 12/10 for hypoxia, required Bipap Transferred from ICU 12/12, on 4-6L NC, briefly requiring bipap on 12/15; mostly desaturates at night time requiring oxymask encouraged to use Incentive Spirometry, Flutter Valve #Acute metabolic encephalopathy: likely 2/2 acute illness iso underlying cognitive impairment. continue with delirium precautions #Hypotension Continue midodrine #Suspected dysphagia Aspiration precaution Speech eval and recs noted #Troponin elevation secondary to illness in the setting of chronic kidney dysfunction, history ESRD on PD #Hyperglycemia secondary to diabetes HbA1c 6.7 Continue insulin while hospitalized Monitor BGs #H/O PE/A-fib (early TBS) On Coumadin--initially held due to supratherapeutic INR. Got Vit K on 12/02/24 Warfarin resumed. Monitor INR Continue metoprolol, amiodarone. #Hypertrophic cardiomyopathy - Toprol XL changed to Metoprolol tartrate 25mg BID CAD/ PVD COPD/RLD as per records Cirrhosis on imaging from past admission Prostate cancer S/P surgery Chronic anemia, Hb stable Inclusion body myositis as per records, patient to decide on steroid Rx recommendation from local neurologist following recent outpatient visit Subclinical hypothyroidism , needs repeat thyroid function test in 6 weeks as outpatient Past tobacco abuse. CODE STATUS Full code Disposition transition to SNF when O2 stable; however, conversations ongoing with perhaps to encourage LTAC Admission and Anticipated Discharge Date Admission Date: November 19, 2024 Subjective NAEO Patient denies subjective fevers, chills, cough, diarrhea, abdominal pain, nausea Patient states he is feeling "just fine" Physical Exam Constitutional: WD/WN, vitals as above Respiratory: diminished 2/2 effort Cardiovascular: RRR, no murmur, no edema Gastrointestinal (Abdomen): protuberant but soft Results & Data Results & Data Vital Signs (Past 12 Hours) Vital Signs Temp Pulse Pulse Pulse Resp BP BP 12/21/24 07:58 36.3 C L 94 H 17 104/69 12/21/24 03:00 36.6 C 93 H 25 H 97/68 L 12/21/24 00:15 36.6 C 93 H 17 90/56 L 12/20/24 20:25 95 H 12/20/24 20:25 Pulse Ox O2 Del Method O2 Flow Rate 12/21/24 07:58 94 High Flow Nasal Cannula 10 12/21/24 03:00 93 Nasal Cannula 10 12/21/24 00:15 94 High Flow Nasal Cannula 10 12/20/24 20:25 12/20/24 20:25 Nasal Cannula 10 Laboratory Results Short CBC 12/21/24 Range/Units 06:08 WBC 17.75 H (4.8-10.8) K/ul Hgb 10.9 L (14.0-18.0) g/dl Hct 33.9 L (42.0-52.0) % Plt Count 424 H (130-400) K/uL BMP 12/20/24 12/21/24 08:13 06:08 Sodium 135 L 135 L Potassium 4.8 4.2 Chloride 95 L 95 L Carbon Dioxide 33 H 33 H BUN 41 H 44 H Creatinine 4.98 H* 5.25 H* Glucose 161 H 220 H Calcium 9.3 9.2 Medications Administered Home Medications Medication Instructions Recorded Confirmed Last Taken amiodarone 200 mg tablet 200 mg PO DAILY 10/16/24 11/19/24 11/18/24 metoprolol succinate 25 mg 25 mg PO DAILY 10/16/24 11/19/24 11/18/24 09:00 tablet,extended release 24 hr midodrine 2.5 mg tablet 2.5 mg PO AMPM 10/16/24 11/19/24 11/18/24 09:00 warfarin 2 mg tablet 2 mg PO DAILY 10/19/24 11/19/24 11/18/24 09:00 docusate sodium 100 mg capsule 100 mg PO BID #60 caps 10/21/24 11/19/24 11/18/24 09:00 polyethylene glycol 3350 17 gram 17 g PO DAILY PRN constipation #30 10/21/24 11/19/24 Unknown oral powder packet (Miralax) ea Lactobacillus acidophilus 1 tab PO DAILY 11/12/24 11/19/24 Unknown Renal Multivit W/1mg Or <Fa 1 tab PO DAILY 11/12/24 11/19/24 11/18/24 09:00 acetaminophen 500 mg tablet 500 mg PO Q6H 11/12/24 11/19/24 11/18/24 20:00 cholecalciferol (vitamin D3) 50 50 mcg PO DAILY 11/12/24 11/19/24 Unknown mcg (2,000 unit) capsule (Vitamin D3) gentamicin 0.1 % topical cream 1 applic topical DAILY 11/12/24 11/19/24 11/18/24 lanolin alcohols-mineral 1 applic topical UD PRN SKIN CARE 11/12/24 11/19/24 Unknown oil-w.petrolatum-ceresin topical cream (Eucerin topical cream) maltodextrin 1 ea PO QAM PRN Constipation 11/12/24 11/19/24 Unknown menthol 0.44 %-zinc oxide 20.6 % 1 applic topical DAILY 11/12/24 11/19/24 Unknown topical ointment (Calmoseptine) metoprolol tartrate 25 mg tablet 25 mg PO DAILY PRN HR > 100 @ REST 11/12/24 11/19/24 Unknown pantoprazole 40 mg tablet,delayed 40 mg PO DAILY 11/12/24 11/19/24 11/18/24 09:00 release doxycycline hyclate 100 mg capsule 100 mg PO BID 6 days #12 caps 11/15/24 11/19/24 11/18/24 09:00 Active Medications Generic Name Dose Route Start Last Admin Trade Name Freq PRN Reason Stop Dose Admin Acetaminophen 500 mg 11/19/24 03:55 11/29/24 22:35 Acetaminophen 500 Mg Tab PO 01/19/25 03:54 500 mg Q6H PRN Administration fever/pain Albuterol 3 ml 02/17/25 09:03 12/10/24 10:22 Albut/Ipratrop 3mg/0.5mg Neb 3 Ml Vial NEB 02/05/25 09:02 3 ml Q4R PRN Administration Shortness Of Breath Or Wheezing Protocol Amiodarone HCl 200 mg 11/19/24 09:00 12/20/24 08:11 Amiodarone 200 Mg Tab PO 01/19/25 08:59 200 mg DAILY JULIANNA Administration Docusate Sodium 100 mg 11/19/24 09:00 12/20/24 21:05 Docusate Sodium 100 Mg Cap PO 01/19/25 08:59 100 mg BID JULIANNA Administration Guaifenesin/Dextromethorphan 5 ml 11/20/24 22:06 11/22/24 08:33 Guaifenesin/Dextrom Syrup 100mg/10mg 5ml Udc PO 01/20/25 22:05 5 ml Q6H PRN Administration Cough Insulin Aspart 0 units 12/10/24 21:00 12/20/24 21:07 Insulin Aspart Per Unit Charge SC 01/09/25 11:59 3 units ACHS JULIANNA Administration Lactobacillus Acidophilus 1,250 mg 11/19/24 09:00 11/27/24 09:00 Advanced Probiotic 625 Mg Capsule PO 01/19/25 08:59 1,250 mg DAILY JULIANNA Administration Lactobacillus Acidophilus 1 packet 11/27/24 17:00 12/20/24 16:50 Lactobacillus Acidophilus 1 Gm Pack PO 01/27/25 16:59 1 packet TIDM JULIANNA Administration Levalbuterol HCl 1.25 mg 11/20/24 22:06 11/21/24 22:57 Levalbuterol 1.25 Mg/3 Ml Neb [facility] 01/20/25 22:05 1.25 mg Q4H PRN Administration Shortness Of Breath Or Wheezin Lidocaine 1 patch 11/20/24 16:45 12/20/24 08:12 Lidocaine 5% 1 Patch TD 01/20/25 16:44 Not Given QAM JULIANNA Loperamide HCl 2 mg 11/28/24 11:29 12/01/24 06:13 Loperamide Hcl 2 Mg Cap PO 01/28/25 11:28 2 mg Q4H PRN Administration Diarrhea Metoprolol Tartrate 25 mg 12/10/24 21:00 12/20/24 21:07 Metoprolol Tartrate 25 Mg Tab PO 01/09/25 20:59 Not Given BID JULIANNA Midodrine 2.5 mg 11/19/24 08:00 12/20/24 16:50 Midodrine Hcl 2.5 Mg Tab PO 01/19/25 07:59 2.5 mg TID@0800,1200,1700 JULIANNA Administration Midodrine 2.5 mg 12/14/24 08:19 12/19/24 08:57 Midodrine Hcl 2.5 Mg Tab PO 01/13/25 08:18 2.5 mg DAILY PRN Administration give on dialysis days only Mirtazapine 7.5 mg 12/19/24 21:00 12/20/24 21:05 Mirtazapine Tab 15 Mg Tab PO 01/18/25 20:59 7.5 mg HS JULIANNA Administration Miscellaneous 1 each 11/20/24 21:00 12/20/24 21:00 Remove Lidoderm Patch N/A 01/20/25 20:59 Not Given DAILY@2100 JULIANNA Miscellaneous 15 - 30 gm 11/23/24 20:59 12/02/24 14:15 Carbohydrates For Hypoglycemia PO 01/23/25 20:58 30 gm UD PRN Administration Hypoglycemia Protocol Miscellaneous 1 each 12/14/24 09:00 12/20/24 09:58 Midodrine*Pending Order N/A 01/13/25 08:59 Not Given Q24H JULIANNA Pantoprazole Sodium 40 mg 11/19/24 09:00 12/20/24 08:12 Pantoprazole 40 Mg Tab PO 01/19/25 08:59 40 mg DAILY JULIANNA Administration Polyethylene Glycol 17 gm 11/19/24 06:04 12/16/24 15:32 Polyethylene (Miralax) 17 Gm Pack PO 01/19/25 06:03 17 gm DAILY PRN Administration constipation Vitamin B Complex/Folic Acid 1 cap 11/19/24 09:00 12/20/24 08:12 Nephrocaps PO 01/19/25 08:59 1 cap DAILY JULIANNA Administration Warfarin Sodium 3 mg 12/20/24 16:00 12/20/24 16:51 Warfarin Sod 3 Mg Tab PO 01/19/25 15:59 3 mg DAILY@1600 JULIANNA Administration
[2024-12-21] MEDS: 4.5GM X1 IV STA (08:55)
[2024-12-21 08:58] LABS: Basophils # (auto) 0.13 K/uL (0.00-0.20); Basophils % (auto) 0.7 %; Eosinophils # (auto) 0.38 K/uL (0.00-0.50); Eosinophils % (auto) 2.1 %; Immature Granulocytes # (auto) 0.18 K/uL (0.01-0.20); Lymphocytes # (auto) 0.81 K/uL (1.20-3.40); Lymphocytes % (auto) 4.6 %; Monocytes # (auto) 2.07 K/uL (0.11-0.59); Monocytes % (auto) 11.6 %; Neutrophils # (auto) 14.21 K/uL (1.40-6.50)
--- NOTE | 2024-12-21 11:16 | Dialysis Progress Note ---
Date of Service December 21, 2024 Assessment & Plan Admission and Anticipated Discharge Date Admission Date: November 19, 2024 Subjective Assessment & Plan (1) ESRD (end stage renal disease) on dialysis: Plan: ESRD currently on PD > switched to this b/c needs better oxygenation, needs lower 02 needs so can do HD, with known LVOT obstruction, making fluid removal VERY touchy w/ this modality. tolerates PD though has in past 48 hrs now desat'd even w/ this tx. Desat'd again end of tx 12/15 >>pulm recommends aggressive UF>> but will tonight go easy on UF b/c of concerns about worse 02 status >> 6 x 1.5% bags this evening reeval in a few days if we can change back to HD w/ gentle /conservative fluid removal goals and running on cold temp HD has been limited by hypotension. gave extra midodrine dose prior to tx 2.5 mg GOAL remains for dialysis modalities is HD for rehab and PD after that/on return home. There is no hope for eventual improvement though---Fibrotic phase of ARDS. I dont see him ever getting to the position where he would not have intermittent desat--he will be back as soon as that happens if we discharge him anywhere. josephine shen now on 10 liters of o2. UF makes no Difference with his o2 need as this is more ARDS related I really wanted to talk with him in more detail. he did say he wants to continue to do dialysis. he did not want to be involved in more detailed and more involved Discussion regarding level of care. hgb is goal at 10+. lytes are fine today. Care coordinated w/ Dr Misael villagomez goals of care, current modality strategy, med changes by phone; we are in agreement. (2) Counseling regarding goals of care: Plan: see conversations w/ stakeholders on this 12/16 As of now its the patient who wants to do everything. 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 on quite variable 02 from 6-10 L. Currently 10 liters on. 1300 ml UF with all 2.5%. No pain, has Chronic Sig sob; eating best he can which is little Physical Exam Constitutional: well developed, well nourished, + frail appearing, cooperative and + in distress (mild w/ breathing ); no acute distress and no altered mental status Eyes: EOM intact bilaterally ENMT: Mouth: + dry oral mucous membranes Respiratory: normal respiratory effort, able to speak in complete sentences and + tachypneic; no labored breathing and no cough Auscultation: + diminished lung sounds (extremely) and + crackles Cardiovascular: Rate/Rhythm: regular rate and regular rhythm Heart Sounds: + murmur Extremities: no edema Gastrointestinal (Abdomen): Inspection/Auscultation: normal bowel sounds and + abdominal surgical drain present (PD catheter) Percussion/Palpation: abdomen soft; abdomen nontender Musculoskeletal: Extremities: strength 5/5 throughout Skin: no rashes, warm and dry Psychiatric: Orientation: alert and oriented x 3 Results & Data Vital Signs (Past 12 Hours) Vital Signs Temp Pulse Pulse Pulse Pulse Resp BP 12/21/24 10:57 36.5 C 99 H 17 12/21/24 08:38 36.4 C L 81 30 H 12/21/24 08:00 87 12/21/24 08:00 12/21/24 07:58 36.3 C L 94 H 17 12/21/24 03:00 36.6 C 93 H 25 H 12/21/24 00:15 36.6 C 93 H 17 90/56 L BP Pulse Ox O2 Del Method O2 Flow Rate 12/21/24 10:57 93/63 L 94 High Flow Nasal Cannula 10 12/21/24 08:38 12/21/24 08:00 12/21/24 08:00 High Flow Nasal Cannula 10 12/21/24 07:58 104/69 94 High Flow Nasal Cannula 10 12/21/24 03:00 97/68 L 93 Nasal Cannula 10 12/21/24 00:15 94 High Flow Nasal Cannula 10
[2024-12-21 12:35] LABS: Hematocrit (blood only) 32.3 % (42.0-52.0); Hemoglobin 10.6 g/dl (14.0-18.0); Mean Corpuscular Hemoglobin 29.1 pg (25.0-34.0); Mean Corpuscular Hgb Conc 32.8 g/dL (32.0-36.0); Mean Corpuscular Volume 88.7 fL (80.0-100.0); Mean Platelet Volume 11.4 fL (9.4-12.4); Platelet Count 419 K/uL (130-400); RDW Coefficient of Variation 16.7 % (11.5-14.5); RDW Standard Deviation 53.9 fL (36.4-46.3); Red Blood Count 3.64 M/uL (4.70-6.10); White Blood Count 19.26 K/ul (4.8-10.8)
[2024-12-21] MEDS ORDERED: PIPERACILLIN/TAZOBACTAM 4.5 GM/100 ML BAG IV SCH (16:00)
[2024-12-21] MEDS: MIRTAZAPINE TAB 15 MG TAB PO SCH (20:16)
[2024-12-22] MEDS: 4.5GM X1 IV ONE (08:26)
[2024-12-22 08:56] LABS: Basophils # (auto) 0.22 K/uL (0.00-0.20); Basophils % (auto) 1.2 %; Eosinophils # (auto) 0.42 K/uL (0.00-0.50); Eosinophils % (auto) 2.2 %; Hematocrit (blood only) 34.4 % (42.0-52.0); Hemoglobin 11.1 g/dl (14.0-18.0); Immature Granulocytes # (auto) 0.33 K/uL (0.01-0.20); Immature Granulocytes % (auto) 1.7 %; Lymphocytes # (auto) 1.07 K/uL (1.20-3.40); Lymphocytes % (auto) 5.6 %; Mean Corpuscular Hemoglobin 28.6 pg (25.0-34.0); Mean Corpuscular Hgb Conc 32.3 g/dL (32.0-36.0); Mean Corpuscular Volume 88.7 fL (80.0-100.0); Mean Platelet Volume 11.4 fL (9.4-12.4); Monocytes # (auto) 2.11 K/uL (0.11-0.59); Monocytes % (auto) 11.1 %; Neutrophils # (auto) 14.85 K/uL (1.40-6.50); Neutrophils % (auto) 78.2 %; Platelet Count 463 K/uL (130-400); RDW Coefficient of Variation 16.6 % (11.5-14.5); RDW Standard Deviation 53.2 fL (36.4-46.3); Red Blood Count 3.88 M/uL (4.70-6.10)
[2024-12-22 09:17] LABS: Calcium 9.2 mg/dl (8.6-10.3); Creatinine Clr Calc Pharmacy 11.8 ml/min; Magnesium 2.1 mg/dl (1.7-2.4); Potassium 4.3 mmol/L (3.5-5.1)
[2024-12-22 09:26] LABS: INR 1.9 (0.9-1.1); Prothrombin Time 19.4 Seconds (9.0-12.0)
[2024-12-22 09:48] LABS: iSTAT Arterial Blood Gas HCO3 26 meg/L (19-24); iSTAT Arterial Blood Gas pCO2 35 mmHg (35-46); iSTAT Arterial Blood Gas pH 7.47 (7.35-7.45); iSTAT Arterial Blood Gas pO2 56 mmHg (80-95); iSTAT Carbon Dioxide 27 mmol/L (24-31); iSTAT Hematocrit 31 % (42-52); iSTAT Hemoglobin 10.5 g/dl (14.0-18.0); iSTAT Potassium 3.9 mmol/L (3.3-5.0); iSTAT Sodium 135 mmol/L (135-144)
--- NOTE | 2024-12-22 11:37 | Dialysis Progress Note ---
Date of Service December 22, 2024 Assessment & Plan Admission and Anticipated Discharge Date Admission Date: November 19, 2024 Subjective Assessment & Plan (1) ESRD (end stage renal disease) on dialysis: Plan: ESRD currently on PD > switched to this b/c needs better oxygenation, needs lower 02 needs so can do HD, with known LVOT obstruction, making fluid removal VERY touchy w/ this modality. tolerates PD though has in past 48 hrs now desat'd even w/ this tx. Desat'd again end of tx 12/15 >>pulm recommends aggressive UF>> but will tonight go easy on UF b/c of concerns about worse 02 status >> 6 x 1.5% bags this evening reeval in a few days if we can change back to HD w/ gentle /conservative fluid removal goals and running on cold temp HD has been limited by hypotension. gave extra midodrine dose prior to tx 2.5 mg GOAL remains for dialysis modalities is HD for rehab and PD after that/on return home. There is no hope for eventual improvement though---Fibrotic phase of ARDS. I dont see him ever getting to the position where he would not have intermittent desat--he will be back as soon as that happens if we discharge him anywhere. josephine shen now on Bipap UF makes no Difference with his o2 need as this is more ARDS related. For tonight will do half 2.5% and half 1.5%---Raise midodrine to 5 tid I really wanted to talk with him in more detail. he did say he wants to continue to do dialysis. he did not want to be involved in more detailed and more involved Discussion regarding level of care. hgb is goal at 10+. But he still needs weekly [place]. [place] [id number] units today. lytes are fine today. Care coordinated w/ Dr Douglas re goals of care, current modality strategy, med changes by phone; we are in agreement. (2) Counseling regarding goals of care: Plan: see conversations w/ stakeholders on this 12/16 As of now its the patient who wants to do everything. 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 on quite variable 02 from 6-10 L. Currently on BIpap. 1200 ml UF with all 2.5%. No pain, has Chronic Sig sob. No PO intake Physical Exam Constitutional: well developed, well nourished, + frail appearing, cooperative and + in distress (mild w/ breathing ); no acute distress and no altered mental status Eyes: EOM intact bilaterally ENMT: Mouth: + dry oral mucous membranes Respiratory: normal respiratory effort, able to speak in complete sentences and + tachypneic; no labored breathing and no cough Auscultation: + diminished lung sounds (extremely) and + crackles Cardiovascular: Rate/Rhythm: regular rate and regular rhythm Heart Sounds: + murmur Extremities: no edema Gastrointestinal (Abdomen): Inspection/Auscultation: normal bowel sounds and + abdominal surgical drain present (PD catheter) Percussion/Palpation: abdomen soft; abdomen nontender Musculoskeletal: Extremities: strength 5/5 throughout Skin: no rashes, warm and dry Psychiatric: Orientation: alert and oriented x 3 Results & Data Vital Signs (Past 12 Hours) Vital Signs Temp Pulse Pulse Pulse Pulse Resp BP 12/22/24 09:19 102 H 36 H 12/22/24 08:10 36.8 C 89 24 12/22/24 08:00 92 H 12/22/24 07:49 36.6 C 97 H 26 H 96/62 L 12/22/24 03:42 36.7 C 90 18 98/65 L Pulse Ox O2 Del Method O2 Flow Rate FiO2 12/22/24 09:19 93 80 12/22/24 08:10 12/22/24 08:00 12/22/24 07:49 92 Nasal Cannula 10.0 12/22/24 03:42 94 High Flow Nasal Cannula 10
[2024-12-22] MEDS: MIDODRINE HCL 2.5 MG TAB PO SCH (13:44)
[2024-12-22] MEDS: EPOETIN ALFA 10,000 UNITS/ML VIAL SQ SCH (13:45)
--- NOTE | 2024-12-22 17:19 | Hospitalist Progress Note ---
Date of Service December 22, 2024 Assessment & Plan (1) Acute hypoxic respiratory failure: Plan: Mr. Samson is a 79-year-old male with PMH of PE/A-fib on Coumadin, hypertrophic CM, CAD, PVD, hypotension on midodrine, COPD/RLD, ESRD on PD, esophageal achalasia, cirrhosis, prostate cancer status post surgery, MGUS, chronic anemia [baseline hemoglobin of 10-11], cognitive impairment, inclusion body myositis, past tobacco abuse who was recently admitted for COVID - 19 pneumonia/sp decdron Rx for 3-4 days/discharged to [facility] on room air presents w/ c/o increasing weakness, fall (no head trauma, witnessed fall). Patient was noted to have signs of bilateral pneumonia and completed abx course. Meeting with son, Dominic, at 1530 on 12/16 to discuss code status and further goals. Son expressed desire to continue full efforts at this time to get patient stable for rehab. Reviewed CXR personally which is reveals right pleural effusion and increase pulmonary congestion and edema Spoke to Pulm off line who recommends that further fluid removal via HD/PD would be ideal as there is no accessible pocket Long discussion had with son and patient who wishes to remain full code. Discussed with nephrology, who agrees to trial PD for optimal fluid removal given inability to handle HD 2/2 LVOT as of 12/16 Patient has been tolerating PD thus far; however, oxygen desaturations noted overnight--oxygen during day ranging 4-8L NC and overnight 8-10L oxymask. Will continue to optimize volume status as tolerated Continuing to wean oxygen as needed. PD ongoing. Respiratory status tenuous. New leukocytosis and thrombocytosis without obvious signs of infection #leukocytosis #Acute hypoxic respiratory failure #Aspiration event, c/f aspiration pneumonitis given stability at this time will hold abx no localizing symptoms, question if component of hemoconcentration as all cell lines up continues to remain elevated, will add zoysn for aspiration pneumonia CTM #generalized weakness #Poor appetite patient declines discussion with behavioral health continue 15mg this evening #Right pleural effusion *stable #Intermittent dyspnea *improving iso worsening respiratory failure and dyspnea no tap warranted, encouraged better volume optimization with HD v PD--transitioned to PD on 12/16 overnight #ESRD, briefly on HD to facilitate dispo, now on PD once more given hemodynamic intolerance patient transitioned from PD to HD during admission as patient will be going to SNF upon discharge (PD not done at SNF) HD catheter placed by Vascular sx during admission course c/b intradialysis hypotension Did well yesterday and today w/ very conservative UF per nephrology; however respiratory status questionable, but improving with PD #severe sepsis- resolved POA #Bilateral pneumonia #COVID-19 infection c/b ARDS --CT chest with interval early bilateral pneumonia Compared to CT chest on 11/12 --ECHO: Mild concentric LVH. Asymmetric left ventricular hypertrophy involving the septum with maximal thickness of 2.1 cm. Outflow tract obstruction not identified. Cavity obliteration at mid ventricle. Left ventricle is hyp erdynamic. EF > 70%. Aortic valve sclerosis mild, without significant aortic valve stenosis. --Peritoneal fluid analysis-no organism and wbc --Serology positive for COVID-19 --Blood cultures- negative to date Appreciate pulmonology input, signed off 11/23 Completed zosyn/doxycycline course & dexamethasone 10 day treatment Continue to wean oxygen as tolerated PT recommends SNF placement s/p ICU transfer on 12/10 for hypoxia, required Bipap Transferred from ICU 12/12, on 4-6L NC, briefly requiring bipap on 12/15; mostly desaturates at night time requiring oxymask encouraged to use Incentive Spirometry, Flutter Valve #Acute metabolic encephalopathy: likely 2/2 acute illness iso underlying cognitive impairment. continue with delirium precautions #Hypotension Continue midodrine #Suspected dysphagia Aspiration precaution Speech eval and recs noted #Troponin elevation secondary to illness in the setting of chronic kidney dysfunction, history ESRD on PD #Hyperglycemia secondary to diabetes HbA1c 6.7 Continue insulin while hospitalized Monitor BGs #H/O PE/A-fib (early TBS) On Coumadin--initially held due to supratherapeutic INR. Got Vit K on 12/02/24 Warfarin resumed. Monitor INR Continue metoprolol, amiodarone. #Hypertrophic cardiomyopathy - Toprol XL changed to Metoprolol tartrate 25mg BID CAD/ PVD COPD/RLD as per records Cirrhosis on imaging from past admission Prostate cancer S/P surgery Chronic anemia, Hb stable Inclusion body myositis as per records, patient to decide on steroid Rx recommendation from local neurologist following recent outpatient visit Subclinical hypothyroidism , needs repeat thyroid function test in 6 weeks as outpatient Past tobacco abuse. CODE STATUS Full code Disposition transition to SNF when O2 stable; however, conversations ongoing with perhaps to encourage LTAC Admission and Anticipated Discharge Date Admission Date: November 19, 2024 Subjective initially no acute events however patient aspirated on morning medicines denies any sob or pain despite requiring bipap to increase oxygenation patient again reports no appetite but drinking the boost beverages Physical Exam Constitutional: weak, frail appearing Respiratory: diminshed bilaterally Cardiovascular: tachycardic Results & Data Results & Data Vital Signs (Past 12 Hours) Vital Signs Temp Pulse Pulse Pulse Pulse Resp BP 12/22/24 16:23 36.5 C 103 H 26 H 96/61 L 12/22/24 14:54 99 H 12/22/24 12:00 36.3 C L 104 H 26 H 12/22/24 09:19 102 H 36 H 12/22/24 08:10 36.8 C 89 24 12/22/24 08:00 12/22/24 08:00 92 H 12/22/24 07:49 36.6 C 97 H 26 H 96/62 L BP Pulse Ox O2 Del Method O2 Flow Rate FiO2 12/22/24 16:23 93 High Flow Nasal Cannula 10 12/22/24 14:54 12/22/24 12:00 91/55 L 93 BiPAP 12/22/24 09:19 93 80 12/22/24 08:10 12/22/24 08:00 High Flow Nasal Cannula 10 12/22/24 08:00 12/22/24 07:49 92 Nasal Cannula 10.0 Laboratory Results Short CBC 12/22/24 Range/Units 08:30 WBC 19.00 H (4.8-10.8) K/ul Hgb 11.1 L (14.0-18.0) g/dl Hct 34.4 L (42.0-52.0) % Plt Count 463 H (130-400) K/uL BMP 12/22/24 08:30 Sodium 138 Potassium 4.3 Chloride 96 L Carbon Dioxide 31 BUN 49 H Creatinine 5.67 H* D Calcium 9.2 Medications Administered Home Medications Medication Instructions Recorded Confirmed Last Taken amiodarone 200 mg tablet 200 mg PO DAILY 10/16/24 11/19/24 11/18/24 metoprolol succinate 25 mg 25 mg PO DAILY 10/16/24 11/19/24 11/18/24 09:00 tablet,extended release 24 hr midodrine 2.5 mg tablet 2.5 mg PO AMPM 10/16/24 11/19/24 11/18/24 09:00 warfarin 2 mg tablet 2 mg PO DAILY 10/19/24 11/19/24 11/18/24 09:00 docusate sodium 100 mg capsule 100 mg PO BID #60 caps 10/21/24 11/19/24 11/18/24 09:00 polyethylene glycol 3350 17 gram 17 g PO DAILY PRN constipation #30 10/21/24 11/19/24 Unknown oral powder packet (Miralax) ea Lactobacillus acidophilus 1 tab PO DAILY 11/12/24 11/19/24 Unknown Renal Multivit W/1mg Or <Fa 1 tab PO DAILY 11/12/24 11/19/24 11/18/24 09:00 acetaminophen 500 mg tablet 500 mg PO Q6H 11/12/24 11/19/24 11/18/24 20:00 cholecalciferol (vitamin D3) 50 50 mcg PO DAILY 11/12/24 11/19/24 Unknown mcg (2,000 unit) capsule (Vitamin D3) gentamicin 0.1 % topical cream 1 applic topical DAILY 11/12/24 11/19/24 11/18/24 lanolin alcohols-mineral 1 applic topical UD PRN SKIN CARE 11/12/24 11/19/24 Unknown oil-w.petrolatum-ceresin topical cream (Eucerin topical cream) maltodextrin 1 ea PO QAM PRN Constipation 11/12/24 11/19/24 Unknown menthol 0.44 %-zinc oxide 20.6 % 1 applic topical DAILY 11/12/24 11/19/24 Unknown topical ointment (Calmoseptine) metoprolol tartrate 25 mg tablet 25 mg PO DAILY PRN HR > 100 @ REST 11/12/24 11/19/24 Unknown pantoprazole 40 mg tablet,delayed 40 mg PO DAILY 11/12/24 11/19/24 11/18/24 09 :00 release doxycycline hyclate 100 mg capsule 100 mg PO BID 6 days #12 caps 11/15/24 11/19/24 11/18/24 09:00 Active Medications Generic Name Dose Route Start Last Admin Trade Name Freq PRN Reason Stop Dose Admin Acetaminophen 500 mg 11/19/24 03:55 11/29/24 22:35 Acetaminophen 500 Mg Tab PO 01/19/25 03:54 500 mg Q6H PRN Administration fever/pain Albuterol 3 ml 12/06/24 09:03 12/10/24 10:22 Albut/Ipratrop 3mg/0.5mg Neb 3 Ml Vial NEB 02/05/25 09:02 3 ml Q4R PRN Administration Shortness Of Breath Or Wheezing Protocol Amiodarone HCl 200 mg 11/19/24 09:00 12/22/24 08:19 Amiodarone 200 Mg Tab PO 01/19/25 08:59 200 mg DAILY JULIANNA Administration Docusate Sodium 100 mg 11/19/24 09:00 12/22/24 08:21 Docusate Sodium 100 Mg Cap PO 01/19/25 08:59 100 mg BID JULIANNA Administration Guaifenesin/Dextromethorphan 5 ml 11/20/24 22:06 11/22/24 08:33 Guaifenesin/Dextrom Syrup 100mg/10mg 5ml Udc PO 01/20/25 22:05 5 ml Q6H PRN Administration Cough Insulin Aspart 0 units 12/10/24 21:00 12/22/24 13:14 Insulin Aspart Per Unit Charge SC 01/09/25 11:59 Not Given ACHS JULIANNA Lactobacillus Acidophilus 1,250 mg 11/19/24 09:00 11/27/24 09:00 Advanced Probiotic 625 Mg Capsule PO 01/19/25 08:59 1,250 mg DAILY JULIANNA Administration Lactobacillus Acidophilus 1 packet 11/27/24 17:00 12/22/24 13:14 Lactobacillus Acidophilus 1 Gm Pack PO 01/27/25 16:59 Not Given TIDM JULIANNA Levalbuterol HCl 1.25 mg 11/20/24 22:06 11/21/24 22:57 Levalbuterol 1.25 Mg/3 Ml Neb NEB 01/20/25 22:05 1.25 mg Q4H PRN Administration Shortness Of Breath Or Wheezin Lidocaine 1 patch 11/20/24 16:45 12/22/24 08:19 Lidocaine 5% 1 Patch TD 01/20/25 16:44 1 patch QAM JULIANNA Administration Loperamide HCl 2 mg 11/28/24 11:29 12/01/24 06:13 Loperamide Hcl 2 Mg Cap PO 01/28/25 11:28 2 mg Q4H PRN Administration Diarrhea Metoprolol Tartrate 25 mg 12/10/24 21:00 12/22/24 08:18 Metoprolol Tartrate 25 Mg Tab PO 01/09/25 20:59 Not Given BID JULIANNA Midodrine 2.5 mg 12/14/24 08:19 12/19/24 08:57 Midodrine Hcl 2.5 Mg Tab PO 01/13/25 08:18 2.5 mg DAILY PRN Administration give on dialysis days only Midodrine 5 mg 12/22/24 12:00 12/22/24 13:44 Midodrine Hcl 2.5 Mg Tab PO 01/21/25 11:59 5 mg TID@0800,1200,1700 JULIANNA Administration Mirtazapine 15 mg 12/21/24 21:00 12/21/24 20:16 Mirtazapine Tab 15 Mg Tab PO 01/20/25 20:59 15 mg HS JULIANNA Administration Miscellaneous 1 each 11/20/24 21:00 12/21/24 20:13 Remove Lidoderm Patch N/A 01/20/25 20:59 Not Given DAILY@2100 JULIANNA Miscellaneous 15 - 30 gm 11/23/24 20:59 12/02/24 14:15 Carbohydrates For Hypoglycemia PO 01/23/25 20:58 30 gm UD PRN Administration Hypoglycemia Protocol Miscellaneous 1 each 12/14/24 09:00 12/22/24 10:09 Midodrine*Pending Order N/A 01/13/25 08:59 Not Given Q24H JULIANNA Pantoprazole Sodium 40 mg 11/19/24 09:00 12/22/24 08:18 Pantoprazole 40 Mg Tab PO 01/19/25 08:59 40 mg DAILY JULIANNA Administration Polyethylene Glycol 17 gm 11/19/24 06:04 12/16/24 15:32 Polyethylene (Miralax) 17 Gm Pack PO 01/19/25 06:03 17 gm DAILY PRN Administration constipation Vitamin B Complex/Folic Acid 1 cap 11/19/24 09:00 12/22/24 08:18 Nephrocaps PO 01/19/25 08:59 1 cap DAILY JULIANNA Administration Warfarin Sodium 3 mg 12/20/24 16:00 12/22/24 16:37 Warfarin Sod 3 Mg Tab PO 01/19/25 15:59 3 mg DAILY@1600 JULIANNA Administration
[2024-12-22] MEDS: PIPERACILLIN/TAZOBACTAM 4.5 GM/100 ML BAG IV SCH (17:34)
[2024-12-22] MEDS ORDERED: STAT IV Infusion **Titration per Protocol STA (21:11)
[2024-12-22] MEDS ORDERED: AMIODARONE IV BOLUS & DRIP IV STA (21:11)
[2024-12-22] MEDS ORDERED: 0.2 MICRON FILTER SET 1 EACH IV STA (21:11)
--- NOTE | 2024-12-22 21:13 | Communication Note ---
Date of Service: December 22, 2024 Overnight developments 3/5, 9 PM Patient went into rapid A-fib, heart rate 1 10-1 20s, SBP 70s as per RN. PPE Oriented, no respiratory distress O2 mask in place IV amiodarone infusion for uncontrolled A-fib given hypotension Decadron 1 dose for possible adrenal insufficiency given history Decadron Rx for COVID-19 pneumonia Attempt additional dose of midodrine if patient agrees to take pills. (Patient refusing earlier as per RN.) Hold peritoneal dialysis, NSS 250 cc bolus for now after discussion with Dr. Galvan of Nephrology Consider transfer to ICU if with persistent hypotension Full CODE STATUS affirmed by patient. 3/6, 12 AM Patient immediately aspirated after midodrine failed and sip of water as per RN. Patient cough and show and spit out pill along with giant mucous plug as per RN. O2 sats 70s on room air Patient placed on the BiPAP. Worsening hypoxemic respiratory failure History COPD/RLD as per records History COVID-19 pneumonia/ARDS Recurrent aspiration ICU transfer Baseline ABG Continue BiPAP Strict n.p.o. Patient family updated of developments over the phone.
[2024-12-22] MEDS: AMIODARONE / D5W 150 MG/100 ML BAG IV STA (21:29)
[2024-12-22] MEDS: ALBUMIN 25% 12.5 GM/50 ML VIAL IV ONE (21:32)
[2024-12-22] MEDS: AMIODARONE / D5W 360 MG/200 ML BAG IV ONE (21:39)
[2024-12-22 23:24] LABS: Base Excess VBG 6.9 mEq/L; HCO3 VBG 33 mmol/L; Oxygen Saturation VBG < 60.0 %; PCO2 VBG 49 mmHg (38-50); PO2 VBG 30 mmHg; pH VBG 7.43 (7.36-7.41)
[2024-12-22] MEDS: dexAMETHasone 4 MG in SYRINGE 0 ML IV ONE (23:32)
[2024-12-22] MEDS: MIDODRINE HCL 2.5 MG TAB PO STA (23:54)
[2024-12-23] MEDS: IPRATROPIUM BROMIDE NEB SOLN 0.02% 0.5MG/2.5ML VIAL INH STA (00:34)
[2024-12-23] MEDS: LEVALBUTEROL 1.25 MG/3 ML NEB NEB STA (00:34)
--- NOTE | 2024-12-23 00:49 | XRay Report ---
Exam(s): XR CXR 1 VIEW EXAM: XR Chest, 1 View CLINICAL HISTORY: Reason for exam: low o2. TECHNIQUE: Frontal view of the chest. COMPARISON: XR Chest dated 12/20/2024 FINDINGS: See Impression. IMPRESSION: 1. Patchy bilateral airspace disease similar to the prior. 2. Small right pleural effusion. 3. Stable right IJ catheter. Electronically signed by: Mello Dickinson M.D. 12/23/24 00:48 AM
[2024-12-23 00:50] LABS: iSTAT Arterial Blood Gas HCO3 26 meg/L (19-24); iSTAT Arterial Blood Gas pCO2 36 mmHg (35-46); iSTAT Arterial Blood Gas pH 7.47 (7.35-7.45); iSTAT Arterial Blood Gas pO2 78 mmHg (80-95); iSTAT Carbon Dioxide 27 mmol/L (24-31); iSTAT Hematocrit 29 % (42-52); iSTAT Hemoglobin 9.9 g/dl (14.0-18.0); iSTAT Potassium 3.8 mmol/L (3.3-5.0); iSTAT Sodium 134 mmol/L (135-144)
[2024-12-23] MEDS: SODIUM CHLORIDE 0.9% 250 ML IV ONE (01:57)
--- NOTE | 2024-12-23 02:29 | XRay Report ---
EXAM: XR chest 1V portable CLINICAL HISTORY: low O2, aspiration TECHNIQUE: An X-ray image of the chest is obtained in AP projection. COMPARISON: 12/20/2024. FINDINGS: Pulmonary Parenchyma: Mild interval improvement in bilateral mid and lower zone consolidations, with residual airspace changes and reticular thickening. Stable patchy airspace changes in the right upper zone. Mild interval increase in right-sided pleural effusion. Stable minimal left-sided pleural effusion. Heart and Mediastinum: Heart size and shape are normal. No hilar or mediastinal lymphadenopathy. Bony Thorax: Bony thorax appears intact without fractures or deformities. Soft Tissues: Soft tissues overlying the chest wall are unremarkable. A Broviac line is seen in situ with its distal tip at the cavoatrial junction, unchanged. Multiple overlying tubing artifacts are seen. IMPRESSION: 1. Mild interval improvement in bilateral mid and lower zone consolidations, with residual airspace changes and reticular thickening. 2. Unchanged patchy airspace changes in the right upper zone. 3. Mild interval increase in right-sided pleural effusion. 4. Unchanged minimal left-sided pleural effusion. 5. A Broviac line is seen in situ with its distal tip at the cavoatrial junction(unchanged). Electronically signed by Torie Merino 12-23-2024 02:29 AM
--- NOTE | 2024-12-23 02:33 | Critical Care Consultation ---
Date of Consultation December 23, 2024 Assessment & Plan (1) ESRD (end stage renal disease) on dialysis: (2) Elevated lactic acid level: (3) Atrial flutter, paroxysmal: (4) Chronic hypotension: (5) Left ventricular outflow tract obstruction: (6) Chronic respiratory failure: (7) COPD (chronic obstructive pulmonary disease): Plan Reason Critically Ill: 79 YOM presents to the ICU for hypotension and increased oxygen requirements during peritoneal dialysis. Neuro - Encephalopathy - Patient awakens to voice and able to have simple conversation at this time - prior documentation does note that patient was not able to make his own decisions and an agent be appointed- if this is still the case is difficult to follow on this matter- however at this time will continue with discussing with son Guido. - Delirium vs. encephalopathy or combination of both is very likely- chronic illness complicated by low perfusion and low oxgyen levels likely - supportive care - awaiting SNF placement per case management notes Cardiac - shock unspecified, LVOTO, avib with RVR (PAF) - patient decompensation today likely related to his LVOTO complicated by rapid heart rates of his afib as well as likely fluid removal attempt with PD - His last gradient was 26- however as above multiple compounding factors this evening that could have acutely exacerbated this - will provide 250cc bolus of saline at this time - if vasopressors are required will use phenylephedrine - rate control has already been achieved with amiodarone- BB should be continued as tolerated - continue warfarin - With his LVOTO would avoid - inotropic agents, afterload reduction agents, and volume depletion - Bedside POCUS is without effusion, difficult to get view of Aortic outflow limited by machine and technique- however IVC collapsable and hyperdynamic appearing- which may represent hypovolemia Respiratory - hypoxia- acute on chronic, COPD- fibrotic, aspiration - Patient with acute on chronic hypoxia- hypoxia is likely perfusion related to drop in blood pressures during dialysis complicated by his fibrotic lungs - supportive care at this time with HFNC- His ABG with evident of mild alkalosis- as dialysis is held this evening now - will transition back to HFNC - Intubation would likely lead to inability to wean from ventilator secondary to poor lung compliance as well as physical effort to pass SBT - again recommend goals of care - aspiration pneumonitis vs. pneumonia- follow clinically GI - No acute needs at this time RENAL/LYTES - ESRD on peritoneal dialysis with intolerance to IHD - defer to Nephrology for acid base, dialysis, electrolytes - peritoneal dialysis performed 12/21- - tolerated with increasing oxygen demands- and had 1.2 liters removed- and is currently -600ml. - will provide 250 ml bolus x1 and repeat if needed. - No acute needs ENDO - No acute needs - ICU hyperglycemic protocol HEME -No acute needs ID - Patient has multiple blood cultures, as well as peritoneal cultures that have been negative - He has completed pervious 10 day course for pneumonia treatment- Zosyn/Doxy - has had increase in WBC count on 12/21/24, afebrile- no cultures obtained currently - will obtain fungal as well as surveillance LINES/IV ACCESS - Tunneled dialysis line, PIV Continue use of these lines DVT PROPHYLAXIS - DVT, Coumadin Family: Son is at bedside he is able to articulate well his dad's status, and states that he was very lucid today talking with Dr. Douglas's and as per her notes - he wants to continue with dialysis and full support. Son does re- iterate that he is continuing to do what his dad voices he wants or would want. He also understands that the likelihood of him surviving a cardiac arrest is slim and him being able to come off the ventilator is slim as well. DISPO: ICU for now. Following volume he is with adequate blood pressure and off of his BiPAP- again likely hemodynamic instability leading to pulmonary compromise. I have personally spent 50 minutes of critical care time in the direct manageme nt of this patient. This is a life/limb threatening event. This includes time spent evaluating patient, direct bedside care, chart review, placing orders, interpretation of diagnostic studies, discussion with consultants, patient, and family members, as well as other required patient management activities. This time is exclusive of all separately billable procedures, and separate from and in addition to any other critical care service time. Thank you for allowing us to participate in the care of this patient. Please refer to my attending physician's documentation for any further recommendations. Supervising Physician Co-Signing Physician Notes Patient seen and examined. EMR reviewed. Discussed with critical care [facility] as well as with the admitting/attending hospitalist service. Patient was reviewed with the bedside ICU nurse and on multidisciplinary rounds. Agree with assessment plan as noted. The patient has multiorgan system failure. He has severe fibrotic lung disease which is unlikely to show any significant physiologic improvement. He has hypertrophic cardiomyopathy with an LV gradient which likely was the source of his decompensation as he was poorly tolerant of atrial fibrillation. He is now converted into normal sinus on amiodarone. In addition he has end-stage renal disease on dialysis and has had difficulty tolerating any form of hemodialysis and is now on peritoneal dialysis. Review of the patient's chart indicates a slow and steady decline as evidenced by the fact that he has been in the hospital now for over a month. This is on top of several prior hospitalizations. Unfortunately the patient's trajectory is not proceeding in a fashion which would suggest meaningful physiologic recovery. He has multiorgan system failure with failure of his respiratory system, cardiovascular system, and renal system. He is severely deconditioned and showing evidence of the skin breakdown which would support end-stage disease. He is aspiration his clearly set him back. I do not see a role for intubation or mechanical ventilation in this patient. He would be unlikely to wean from the ventilator and would have to be prepared to undergo tracheostomy and PEG tube. PEG tube is contraindicated in the presence of peritoneal dialysis. Unfortunately it appears that the patient does not have the physiologic capacity to achieve his expressed and his family expressed goals of proceeding to rehab and getting better. I would not pursue aggressive interventions in this patient including intubation mechanical ventilation ACLS or CPR as I think they would be unlikely to benefit the patient with regards to quality of life or potential long-term improvement. Unfortunately there appears to be some disconnect between the patient and family's expressed wishes in the patient's current physiologic state. His fibrotic lung disease would not show significant improvement over time. Will defer disposition to the patient's primary admitting service. Would be happy to meet with patient and family as well as his care team to discuss his long-term pulmonary prognosis if needed. History of Present Illness Reason for Consultation: hypotension and hypoxiz Requesting Physician: Frank Wan MD Attending Physician: Soraya Douglas MD History of Present Illness 79 YOM initially admitted to the hospital on 11/19/24 and prior to that, was hospitalized from 11/12/24-11/15/24 and 10/16/24-10/21/24. In short patient patient has ESRD, Fibrotic COPD, chronic respiratory failure, afib with RVR and LVOTO with previous gradient noted at 26mmhg. Patient has been having difficult time tolerating dialysis for weeks secondary to hypotension and hypoxia and for this reason peritoneal dialysis has been instituted. This evening appears that patient went into afib with RVR requiring re-bolus and start of amiodarone infusion. He has remained hypotensive and oral midodrine was attempted, with concern of aspiration during taking this. He had increased oxygen requirements while on dialysis and was transitioned to BiPAP. It wa recommended that he be transferred to ICU for continued support as well as 250 saline bolus and no further dialysis this evening from nephrology. Patient arrives awake and at least able to tell me where he is tolerating BiPAP with adequate oxygenation, and boderline blood pressures, but appears per chart review that he has been hypotensive for a few hours prior to transfer. There have been multiple discussions regarding goals of care and full support and hemodialysis continues to be pursued. CODE: FULL Allergies Allergy/AdvReac Type Severity Reaction Status Date / Time No Known Allergies Allergy Verified 11/12/24 22:14 Home Medications Medication Instructions Recorded Confirmed Type amiodarone 200 mg tablet 200 mg PO DAILY 10/16/24 11/19/24 History metoprolol succinate 25 mg 25 mg PO DAILY 10/16/24 11/19/24 History tablet,extended release 24 hr midodrine 2.5 mg tablet 2.5 mg PO AMPM 10/16/24 11/19/24 History warfarin 2 mg tablet 2 mg PO DAILY 10/19/24 11/19/24 History docusate sodium 100 mg capsule 100 mg PO BID #60 caps 10/21/24 11/19/24 Rx polyethylene glycol 3350 17 gram 17 g PO DAILY PRN constipation #30 10/21/24 11/19/24 Rx oral powder packet (Miralax) ea Lactobacillus acidophilus 1 tab PO DAILY 11/12/24 11/19/24 History Renal Multivit W/1mg Or <Fa 1 tab PO DAILY 11/12/24 11/19/24 History acetaminophen 500 mg tablet 500 mg PO Q6H 11/12/24 11/19/24 History cholecalciferol (vitamin D3) 50 50 mcg PO DAILY 11/12/24 11/19/24 History mcg (2,000 unit) capsule (Vitamin D3) gentamicin 0.1 % topical cream 1 applic topical DAILY 11/12/24 11/19/24 History lanolin alcohols-mineral 1 applic topical UD PRN SKIN CARE 11/12/24 11/19/24 History oil-w.petrolatum-ceresin topical cream (Eucerin topical cream) maltodextrin 1 ea PO QAM PRN Constipation 11/12/24 11/19/24 History menthol 0.44 %-zinc oxide 20.6 % 1 applic topical DAILY 11/12/24 11/19/24 History topical ointment (Calmoseptine) metoprolol tartrate 25 mg tablet 25 mg PO DAILY PRN HR > 100 @ REST 11/12/24 11/19/24 History pantoprazole 40 mg tablet,delayed 40 mg PO DAILY 11/12/24 11/19/24 History release doxycycline hyclate 100 mg capsule 100 mg PO BID 6 days #12 caps 11/15/24 11/19/24 Rx Patient History Medical History CAP (community acquired pneumonia) Hypotension ESRD on peritoneal dialysis Renal cyst 3.9 cm cystic lesion-L Paroxysmal A-fib listed in [facility] records CAD (coronary artery disease) PVD (peripheral vascular disease) Dysphagia Anemia Pulmonary nodule MGUS (monoclonal gammopathy of unknown significance) follows with [facility] heme/onc LBBB (left bundle branch block) Hearing deficit Surgical History History of appendectomy History of tooth extraction all teeth removed History of bilateral cataract extraction History of prostatectomy Family History Father Diabetes Other No family history of adverse response to anesthesia Social History Smoking Status: Former smoker Tobacco Type: Cigarettes Second Hand Exposure: No; Do You Dip or Chew Tobacco: No; Hx Alcohol Use: No Hx Substance Use: Yes Preferred Language: French Communication Ability: Effective [employer] Central Office Required: No Beliefs That Will Affect Care: None Current Living Situation: [facility] Current Living Situation Comment: lives at facility Feels Safe at Home: Yes Assistive Devices: Walker Review of Systems Review of Systems: REVIEW OF SYSTEMS: Unable to obtain secondary to patient being to weak to converse or recall information Physical Exam Physical Exam: PHYSICAL EXAM: General: somnolent but responds to questions Head: Normocephalic, atraumatic Neuro: AAO x 2, speech clear but weak, moves all extremities Chest: equal rise and fall of the chest, no accessory muscle use, no heaves or thrills, Cardiac: Regular rate and rhythm, telemetry reviewed- NSR currently, skin warm dry, cap refill <3 seconds, peripheral pulses +2, S1S2 GI: NABS x 4 quadrants, soft, nontender to palpation, no rebound, guarding or tenderness : does not make urine Skin: no rash or erythema Results & Data Results & Data Vital Signs (Past 12 Hours) Vital Signs Temp Pulse Pulse Pulse Resp BP BP 12/23/24 01:10 88 32 H 88/52 L 12/23/24 00:35 89 34 H 12/23/24 00:19 86 12/23/24 00:13 88 32 H 81/47 L 12/23/24 00:06 89 26 H 12/23/24 00:06 87 90/52 L 12/22/24 23:29 126 H 80/50 L 12/22/24 23:04 118 H 75/49 L 12/22/24 22:33 114 H 77/41 L 12/22/24 22:15 123 H 75/51 L 12/22/24 22:00 116 H 12/22/24 22:00 113 H 83/53 L 12/22/24 21:41 114 H 78/52 L 12/22/24 21:35 122 H 86/53 L 12/22/24 21:17 124 H 75/48 L 12/22/24 21:10 131 H 70/47 L 12/22/24 21:00 125 H 12/22/24 20:00 12/22/24 19:38 36.5 C 99 H 20 99/68 L 12/22/24 19:11 36.3 C L 100 H 24 92/59 L 12/22/24 16:23 36.5 C 103 H 26 H 96/61 L 12/22/24 14:54 99 H Pulse Ox O2 Del Method O2 Flow Rate FiO2 12/23/24 01:10 97 BiPAP 100 12/23/24 00:35 97 BiPAP 80 12/23/24 00:19 12/23/24 00:13 99 BiPAP 100 12/23/24 00:06 96 100 03/06/25 00:06 12/22/24 23:29 12/22/24 23:04 12/22/24 22:33 12/22/24 22:15 12/22/24 22:00 12/22/24 22:00 12/22/24 21:41 12/22/24 21:35 94 High Flow Nasal Cannula 12 12/22/24 21:17 12/22/24 21:10 12/22/24 21:00 12/22/24 20:00 High Flow Nasal Cannula 12/22/24 19:38 91 High Flow Nasal Cannula 9 12/22/24 19:11 12/22/24 16:23 93 High Flow Nasal Cannula 10 12/22/24 14:54 Laboratory Results Abnormal lab results 12/22/24 12/22/24 12/22/24 Range/Units 07:48 08:30 09:31 WBC 19.00 H (4.8-10.8) K/ul RBC 3.88 L (4.70-6.10) M/uL Hgb 11.1 L (14.0-18.0) g/dl POC Hgb 10.5 L (14.0-18.0) g/dl Hct 34.4 L (42.0-52.0) % POC Hct 31 L (42-52) % RDW Std Deviation 53.2 H (36.4-46.3) fL RDW Coeff of Maureen 16.6 H (11.5-14.5) % Plt Count 463 H (130-400) K/uL Neut # (Auto) 14.85 H (1.40-6.50) K/uL Lymph # (Auto) 1.07 L (1.20-3.40) K/uL [place] # (Auto) 2.11 H (0.11-0.59) K/uL Baso # (Auto) 0.22 H (0.00-0.20) K/uL Immature Gran # (Auto) 0.33 H (0.01-0.20) K/uL PT 19.4 H (9.0-12.0) Seconds INR 1.9 H (0.9-1.1) POC pH 7.47 H (7.35-7.45) POC pO2 56 L (80-95) mmHg POC HCO3 26 H (19-24) chelle/L POC Base Excess 2.0 H (-9-1.8) chelle/L POC ABG O2 Sat (90-95) % VBG pH (7.36-7.41) POC Sodium (135-144) mmol/L Chloride 96 L (98-107) mmol/L BUN 49 H (6-23) mg/dl Creatinine 5.67 H* D (0.6-1.4) mg/dl POC Glucose 157 H (70-99) mg/dl Fasting Glucose 150 H (70-99) mg/dl Lactate (0.4-2.0) mmol/L Procalcitonin 1.94 H (0-0.5) ng/ml 12/22/24 12/22/24 12/22/24 Range/Units 12:55 17:01 20:43 WBC (4.8-10.8) K/ul RBC (4.70-6.10) M/uL Hgb (14.0-18.0) g/dl POC Hgb (14.0-18.0) g/dl Hct (42.0-52.0) % POC Hct (42-52) % RDW Std Deviation (36.4-46.3) fL RDW Coeff of Maureen (11.5-14.5) % Plt Count (130-400) K/uL Neut # (Auto) (1.40-6.50) K/uL Lymph # (Auto) (1.20-3.40) K/uL [place] # (Auto) (0.11-0.59) K/uL Baso # (Auto) (0.00-0.20) K/uL Immature Gran # (Auto) (0.01-0.20) K/uL PT (9.0-12.0) Seconds INR (0.9-1.1) POC pH (7.35-7.45) POC pO2 (80-95) mmHg POC HCO3 (19-24) chelle/L POC Base Excess (-9-1.8) chelle/L POC ABG O2 Sat (90-95) % VBG pH (7.36-7.41) POC Sodium (135-144) mmol/L Chloride (98-107) mmol/L BUN (6-23) mg/dl Creatinine (0.6-1.4) mg/dl POC Glucose 166 H 153 H 204 H (70-99) mg/dl Fasting Glucose (70-99) mg/dl Lactate (0.4-2.0) mmol/L Procalcitonin (0-0.5) ng/ml 12/22/24 12/23/24 Range/Units 23:08 00:26 WBC (4.8-10.8) K/ul RBC (4.70-6.10) M/uL Hgb (14.0-18.0) g/dl POC Hgb 9.9 L (14.0-18.0) g/dl Hct (42.0-52.0) % POC Hct 29 L (42-52) % RDW Std Deviation (36.4-46.3) fL RDW Coeff of Maureen (11.5-14.5) % Plt Count (130-400) K/uL Neut # (Auto) (1.40-6.50) K/uL Lymph # (Auto) (1.20-3.40) K/uL [place] # (Auto) (0.11-0.59) K/uL Baso # (Auto) (0.00-0.20) K/uL Immature Gran # (Auto) (0.01-0.20) K/uL PT (9.0-12.0) Seconds INR (0.9-1.1) POC pH 7.47 H (7.35-7.45) POC pO2 78 L (80-95) mmHg POC HCO3 26 H (19-24) chelle/L POC Base Excess 2.0 H (-9-1.8) chelle/L POC ABG O2 Sat 96.0 H (90-95) % VBG pH 7.43 H (7.36-7.41) POC Sodium 134 L (135-144) mmol/L Chloride (98-107) mmol/L BUN (6-23) mg/dl Creatinine (0.6-1.4) mg/dl POC Glucose (70-99) mg/dl Fasting Glucose (70-99) mg/dl Lactate 3.8 H* (0.4-2.0) mmol/L Procalcitonin (0-0.5) ng/ml Diagnostic Findings Chest X-Ray 03/05/25 22:35 Exam(s): XR CXR 1 VIEW EXAM: XR Chest, 1 View CLINICAL HISTORY: Reason for exam: low o2. TECHNIQUE: Frontal view of the chest. COMPARISON: XR Chest dated 12/20/2024 FINDINGS: See Impression. IMPRESSION: 1. Patchy bilateral airspace disease similar to the prior. 2. Small right pleural effusion. 3. Stable right IJ catheter. Electronically signed by: Mello Dickinson M.D. 12/23/24 00:48 AM Coding Level of Care Code 28407 CRITICAL CARE 1ST 30-74M Diagnoses ESRD (end stage renal disease) on dialysis N18.6; Z99.2 Elevated lactic acid level R79.89 Atrial flutter, paroxysmal I48.92 Chronic hypotension I95.89 Left ventricular outflow tract obstruction Q24.8 Chronic respiratory failure J96.10 COPD (chronic obstructive pulmonary disease) J44.9
[2024-12-23] MEDS: AMIODARONE / D5W 360 MG/200 ML BAG IV SCH (03:26)
[2024-12-23 03:56] LABS: Hematocrit (blood only) 30.7 % (42.0-52.0); Hemoglobin 9.9 g/dl (14.0-18.0); Mean Corpuscular Hemoglobin 28.3 pg (25.0-34.0); Mean Corpuscular Hgb Conc 32.2 g/dL (32.0-36.0); Mean Corpuscular Volume 87.7 fL (80.0-100.0); Mean Platelet Volume 11.3 fL (9.4-12.4); Platelet Count 430 K/uL (130-400); RDW Coefficient of Variation 16.6 % (11.5-14.5); RDW Standard Deviation 52.6 fL (36.4-46.3); White Blood Count 16.98 K/ul (4.8-10.8)
[2024-12-23 04:14] LABS: BUN Creatinine Ratio 9.4 (10-20); Calcium 8.9 mg/dl (8.6-10.3); Creatinine Clr Calc Pharmacy 10.7 ml/min; Potassium 4.2 mmol/L (3.5-5.1)
[2024-12-23 04:16] LABS: Basophils # (auto) 0.11 K/uL (0.00-0.20); Basophils % (auto) 0.6 %; Eosinophils # (auto) 0.16 K/uL (0.00-0.50); Eosinophils % (auto) 0.9 %; Immature Granulocytes # (auto) 0.28 K/uL (0.01-0.20); Immature Granulocytes % (auto) 1.6 %; Lymphocytes # (auto) 0.32 K/uL (1.20-3.40); Lymphocytes % (auto) 1.9 %; Monocytes # (auto) 0.65 K/uL (0.11-0.59); Monocytes % (auto) 3.8 %; Neutrophils # (auto) 15.46 K/uL (1.40-6.50); Neutrophils % (auto) 91.2 %; Polychromasia 1+
[2024-12-23 04:22] LABS: INR 2.2 (0.9-1.1); Partial Thromboplastin Ratio 1.8; Partial Thromboplastin Time 49 Seconds (21-31); Prothrombin Time 22.4 Seconds (9.0-12.0)
--- NOTE | 2024-12-23 08:23 | Hospitalist Progress Note ---
Date of Service December 23, 2024 Assessment & Plan (1) Acute hypoxic respiratory failure: Plan: Mr. Samson is a 79-year-old male with PMH of PE/A-fib on Coumadin, hypertrophic CM, CAD, PVD, hypotension on midodrine, COPD/RLD, ESRD on PD, esophageal achalasia, cirrhosis, prostate cancer status post surgery, MGUS, chronic anemia [baseline hemoglobin of 10-11], cognitive impairment, inclusion body myositis, past tobacco abuse who was recently admitted for COVID - 19 pneumonia/sp decdron Rx for 3-4 days/discharged to [facility] on room air presents w/ c/o increasing weakness, fall (no head trauma, witnessed fall). Patient was noted to have signs of bilateral pneumonia and completed abx course. Meeting with son, Dominic, at 1530 on 12/16 to discuss code status and further goals. Son expressed desire to continue full efforts at this time to get patient stable for rehab. 12/19 Long discussion had with son and patient who wishes to remain full code. Discussed with nephrology, who agrees to trial PD for optimal fluid removal given inability to handle HD 2/2 LVOT as of 12/16 Patient has been tolerating PD, however it seems volume is less likely contributing to the respiratory status. It is suspected to be related to ongoing fibrosis/scarring s/p ARDS. Patient with aspiration event 12/22 in morning,briefly requiring BiPAP; however, repeat event and increased oxygenation brought patient to ICU overnight. Patient remains full code. Patient expressed that he wants full acute measures previously, including intubation and CPR despite knowing the outcomes are poor and his current prognosis is poor. Spoke to son at length for 60 min on 12/23 about current status. Express that there are multiple systems failing and contributing to poor recover--this includes the poor lung reserve and scarring that makes every insult like aspiration difficult to rebound from, his known ESRD and inability to tolerate the hemodynamic fluctuations with his LVOT, as well as the large developing pressure wounds which will contribute to pain/debility/infection. Patient's son reports feeling pressure about "changing [my] father's wishes" given the patient expressed that he wants "everything done." It was expressed this is not to encourage to go against wishes stated, but rather to ensure everyone is aware of the extremely poor prognosis at this time. Son does note that patient would not want prolonged mechanical ventilation, including discussion of trach placement, nor would he want feeding tube. Patient remains full code at this time #Acute metabolic encephalopathy: likely 2/2 acute illness iso underlying cognitive impairment. continue with delirium precautions multifactorial given acute on chronic illness delirium precautions #Sepsis iso aspiration #Acute hypoxic respiratory failure #Aspiration event, c/f aspiration pneumonitis given stability at this time will hold abx no localizing symptoms, question if component of hemoconcentration as all cell lines up lactate 3.8 to 3.5, volume resuscitation limited 2/2 ESRD/tenuous respiratory status and propensity for edema/congestion repeat lactate #Bilateral pneumonia POA #COVID-19 infection c/b ARDS --CT chest with interval early bilateral pneumonia Compared to CT chest on 11/12 --ECHO: Mild concentric LVH. Asymmetric left ventricular hypertrophy involving the septum with maximal thickness of 2.1 cm. Outflow tract obstruction not identified. Cavity obliteration at mid ventricle. Left ventricle is hyperdynamic. EF > 70%. Aortic valve sclerosis mild, without significant aortic valve stenosis. --Peritoneal fluid analysis-no organism and wbc --Serology positive for COVID-19 --Blood cultures- negative to date Appreciate pulmonology input, signed off 11/23 Completed zosyn/doxycycline course & dexamethasone 10 day treatment Continue to wean oxygen as tolerated PT recommends SNF placement s/p ICU transfer on 12/10 for hypoxia, required Bipap Transferred from ICU 12/12, on 4-6L NC, briefly requiring bipap on 12/15; mostly desaturates at night time requiring oxymask encouraged to use Incentive Spirometry, Flutter Valve #ESRD, briefly on HD to facilitate dispo, now on PD once more given hemodynamic intolerance patient transitioned from PD to HD during admission as patient will be going to SNF upon discharge (PD not done at SNF) HD catheter placed by Vascular sx during admission course c/b intradialysis hypotension PD per nephrology #Right pleural effusion *stable #Intermittent dyspnea *improving iso worsening respiratory failure and dyspnea no tap warranted, encouraged better volume optimization with HD v PD--transitioned to PD on 12/16 overnight #generalized weakness #Poor appetite patient declines discussion with behavioral health continue 15mg this evening #Hypotension Continue midodrine #Suspected dysphagia Aspiration precaution Speech eval and recs noted #Troponin elevation secondary to illness in the setting of chronic kidney dysfunction, history ESRD on PD #Hyperglycemia secondary to diabetes HbA1c 6.7 Continue insulin while hospitalized Monitor BGs #H/O PE/A-fib (early TBS) On Coumadin--initially held due to supratherapeutic INR. Got Vit K on 12/02/24 Warfarin resumed. Monitor INR Continue metoprolol, amiodarone. #Hypertrophic cardiomyopathy - Toprol XL changed to Metoprolol tartrate 25mg BID CAD/ PVD COPD/RLD as per records Cirrhosis on imaging from past admission Prostate cancer S/P surgery Chronic anemia, Hb stable Inclusion body myositis as per records, patient to decide on steroid Rx recommendation from local neurologist following recent outpatient visit Subclinical hypothyroidism , needs repeat thyroid function test in 6 weeks as outpatient Past tobacco abuse. CODE STATUS Full code Disposition: tenuous, in ICU, if able to discharge will be to LTAC likely Admission and Anticipated Discharge Date Admission Date: November 19, 2024 Subjective Transferred to ICU over night due to recurrent aspiration event with progressive hypoxia and increased oxygen requirements Patient not able to participate, somnolent at bedside Physical Exam Constitutional: somnolent Respiratory: HFNC, diminished lung sounds 2/2 effort Results & Data Results & Data Vital Signs (Past 12 Hours) Vital Signs Temp Pulse Pulse Pulse Resp BP BP 12/23/24 07:32 84 18 12/23/24 04:04 91 H 18 12/23/24 03:17 36.7 C 86 20 97/54 L 12/23/24 02:53 89 24 12/23/24 02:30 88 19 12/23/24 02:18 88 29 H 12/23/24 02:00 87 28 H 12/23/24 02:00 94/52 L 12/23/24 02:00 94/52 L 12/23/24 02:00 94/52 L 12/23/24 02:00 94/52 L 12/23/24 01:59 12/23/24 01:52 90/40 L 12/23/24 01:51 36.7 C 86 26 H 12/23/24 01:15 89 24 12/23/24 01:10 88 32 H 12/23/24 01:00 88 26 H 12/23/24 00:35 89 34 H 12/23/24 00:28 87 12/23/24 00:19 86 12/23/24 00:13 88 32 H 12/23/24 00:06 89 26 H 12/23/24 00:06 87 12/22/24 23:29 126 H 12/22/24 23:04 118 H 12/22/24 22:33 114 H 12/22/24 22:15 123 H 12/22/24 22:00 116 H 12/22/24 22:00 113 H 12/22/24 21:41 114 H 12/22/24 21:35 122 H 12/22/24 21:17 124 H 12/22/24 21:10 131 H 70/47 L 12/22/24 21:00 125 H BP Pulse Ox O2 Del Method O2 Flow Rate FiO2 12/23/24 07:32 90 High Flow Nasal Cannula 40 50 12/23/24 04:04 108/58 L 94 High Flow Nasal Cannula 40 50 12/23/24 03:17 91 High Flow Nasal Cannula 40 50 12/23/24 02:53 90 High Flow Nasal Cannula 40 50 12/23/24 02:30 90 12/23/24 02:18 94 12/23/24 02:00 98 12/23/24 02:00 12/23/24 02:00 12/23/24 02:00 12/23/24 02:00 12/23/24 01:59 CPAP 80 12/23/24 01:52 12/23/24 01:51 92 12/23/24 01:15 12/23/24 01:10 88/52 L 97 BiPAP 100 12/23/24 01:00 96 12/23/24 00:35 97 BiPAP 80 12/23/24 00:28 12/23/24 00:19 12/23/24 00:13 81/47 L 99 BiPAP 100 12/23/24 00:06 96 100 12/23/24 00:06 90/52 L 12/22/24 23:29 80/50 L 12/22/24 23:04 75/49 L 12/22/24 22:33 77/41 L 12/22/24 22:15 75/51 L 12/22/24 22:00 12/22/24 22:00 83/53 L 12/22/24 21:41 78/52 L 12/22/24 21:35 86/53 L 94 High Flow Nasal Cannula 12 12/22/24 21:17 75/48 L 12/22/24 21:10 12/22/24 21:00 Laboratory Results Short CBC 12/22/24 12/23/24 Range/Units 08:30 03:15 WBC 19.00 H 16.98 H (4.8-10.8) K/ul Hgb 11.1 L 9.9 L (14.0-18.0) g/dl Hct 34.4 L 30.7 L (42.0-52.0) % Plt Count 463 H 430 H (130-400) K/uL BMP 12/22/24 12/23/24 08:30 03:15 Sodium 138 137 Potassium 4.3 4.2 Chloride 96 L 96 L Carbon Dioxide 31 28 BUN 49 H 59 H Creatinine 5.67 H* D 6.27 H* D Glucose 187 H Calcium 9.2 8.9 Medications Administered Home Medications Medication Instructions Recorded Confirmed Last Taken amiodarone 200 mg tablet 200 mg PO DAILY 10/16/24 11/19/24 11/18/24 metoprolol succinate 25 mg 25 mg PO DAILY 10/16/24 11/19/24 11/18/24 09:00 tablet,extended release 24 hr midodrine 2.5 mg tablet 2.5 mg PO AMPM 10/16/24 11/19/24 11/18/24 09:00 warfarin 2 mg tablet 2 mg PO DAILY 10/19/24 11/19/24 11/18/24 09:00 docusate sodium 100 mg capsule 100 mg PO BID #60 caps 10/21/24 11/19/24 11/18/24 09:00 polyethylene glycol 3350 17 gram 17 g PO DAILY PRN constipation #30 10/21/24 11/19/24 Unknown oral powder packet (Miralax) ea Lactobacillus acidophilus 1 tab PO DAILY 11/12/24 11/19/24 Unknown Renal Multivit W/1mg Or <Fa 1 tab PO DAILY 11/12/24 11/19/24 11/18/24 09:00 acetaminophen 500 mg tablet 500 mg PO Q6H 11/12/24 11/19/24 11/18/24 20:00 cholecalciferol (vitamin D3) 50 50 mcg PO DAILY 11/12/24 11/19/24 Unknown mcg (2,000 unit) capsule (Vitamin D3) gentamicin 0.1 % topical cream 1 applic topical DAILY 11/12/24 11/19/24 11/18/24 lanolin alcohols-mineral 1 applic topical UD PRN SKIN CARE 11/12/24 11/19/24 Unknown oil-w.petrolatum-ceresin topical cream (Eucerin topical cream) maltodextrin 1 ea PO QAM PRN Constipation 11/12/24 11/19/24 Unknown menthol 0.44 %-zinc oxide 20.6 % 1 applic topical DAILY 11/12/24 11/19/24 Unknown topical ointment (Calmoseptine) metoprolol tartrate 25 mg tablet 25 mg PO DAILY PRN HR > 100 @ REST 11/12/24 11/19/24 Unknown pantoprazole 40 mg tablet,delayed 40 mg PO DAILY 11/12/24 11/19/24 11/18/24 09:00 release doxycycline hyclate 100 mg capsule 100 mg PO BID 6 days #12 caps 11/15/24 11/19/24 11/18/24 09:00 Active Medications Generic Name Dose Route Start Last Admin Trade Name Freq PRN Reason Stop Dose Admin Acetaminophen 500 mg 11/19/24 03:55 11/29/24 22:35 Acetaminophen 500 Mg Tab PO 01/19/25 03:54 500 mg Q6H PRN Administration fever/pain Albuterol 3 ml 12/06/24 09:03 12/10/24 10:22 Albut/Ipratrop 3mg/0.5mg Neb 3 Ml Vial NEB 02/05/25 09:02 3 ml Q4R PRN Administration Shortness Of Breath Or Wheezing Protocol Amiodarone HCl 200 mg 11/19/24 09:00 12/22/24 08:19 Amiodarone 200 Mg Tab PO 01/19/25 08:59 200 mg DAILY JULIANNA Administration Docusate Sodium 100 mg 11/19/24 09:00 12/22/24 19:41 Docusate Sodium 100 Mg Cap PO 01/19/25 08:59 Not Given BID JULIANNA Guaifenesin/Dextromethorphan 5 ml 11/20/24 22:06 11/22/24 08:33 Guaifenesin/Dextrom Syrup 100mg/10mg 5ml Udc PO 01/20/25 22:05 5 ml Q6H PRN Administration Cough Piperacillin Sod/Tazobactam Sod 4.5 gm in 100 mls @ 25 mls/hr 12/22/24 17:00 12/23/24 04:48 Zosyn IV 12/29/24 16:59 25 mls/hr Q12H JULIANNA Administration Protocol Amiodarone HCl/Dextrose 360 mg in 200 mls @ 16.667 mls/hr 12/23/24 03:15 12/23/24 03:26 Nexterone / D5w IV 01/22/25 03:14 0.5 mg/min .Q12H JULIANNA 16.7 mls/hr Administration 0.5 MG/MIN Insulin Aspart 0 units 12/10/24 21:00 12/23/24 04:53 Insulin Aspart Per Unit Charge SC 01/09/25 11:59 1 units ACHS JULIANNA Administration Lactobacillus Acidophilus 1,250 mg 11/19/24 09:00 11/27/24 09:00 Advanced Probiotic 625 Mg Capsule PO 01/19/25 08:59 1,250 mg DAILY JULIANNA Administration Lactobacillus Acidophilus 1 packet 11/27/24 17:00 12/22/24 17:33 Lactobacillus Acidophilus 1 Gm Pack PO 01/27/25 16:59 1 packet TIDM JULIANNA Administration Levalbuterol HCl 1.25 mg 11/20/24 22:06 11/21/24 22:57 Levalbuterol 1.25 Mg/3 Ml Neb NEB 01/20/25 22:05 1.25 mg Q4H PRN Administration Shortness Of Breath Or Wheezin Lidocaine 1 patch 11/20/24 16:45 12/22/24 08:19 Lidocaine 5% 1 Patch TD 01/20/25 16:44 1 patch QAM JULIANNA Administration Loperamide HCl 2 mg 11/28/24 11:29 12/01/24 06:13 Loperamide Hcl 2 Mg Cap PO 01/28/25 11:28 2 mg Q4H PRN Administration Diarrhea Mirtazapine 15 mg 12/21/24 21:00 12/22/24 19:43 Mirtazapine Tab 15 Mg Tab PO 01/20/25 20:59 Not Given HS JULIANNA Miscellaneous 1 each 11/20/24 21:00 12/22/24 19:41 Remove Lidoderm Patch N/A 01/20/25 20:59 Not Given DAILY@2100 JULIANNA Miscellaneous 15 - 30 gm 11/23/24 20:59 12/02/24 14:15 Carbohydrates For Hypoglycemia PO 01/23/25 20:58 30 gm UD PRN Administration Hypoglycemia Protocol Miscellaneous 1 each 12/14/24 09:00 12/22/24 10:09 Midodrine*Pending Order N/A 01/13/25 08:59 Not Given Q24H JULIANNA Pantoprazole Sodium 40 mg 11/19/24 09:00 12/22/24 08:18 Pantoprazole 40 Mg Tab PO 01/19/25 08:59 40 mg DAILY JULIANNA Administration Polyethylene Glycol 17 gm 11/19/24 06:04 12/16/24 15:32 Polyethylene (Miralax) 17 Gm Pack PO 01/19/25 06:03 17 gm DAILY PRN Administration constipation Vitamin B Complex/Folic Acid 1 cap 11/19/24 09:00 12/22/24 08:18 Nephrocaps PO 01/19/25 08:59 1 cap DAILY JULIANNA Administration Warfarin Sodium 3 mg 12/20/24 16:00 12/22/24 16:37 Warfarin Sod 3 Mg Tab PO 01/19/25 15:59 3 mg DAILY@1600 JULIANNA Administration
[2024-12-23] MEDS: MIDODRINE HCL 2.5 MG TAB PO SCH (08:29)
[2024-12-23] MEDS: PANTOprazole 40 MG/10 ML SYR IV SCH (09:29)
--- NOTE | 2024-12-23 11:02 | Dialysis Progress Note ---
Date of Service December 23, 2024 Assessment & Plan Admission and Anticipated Discharge Date Admission Date: November 19, 2024 Subjective Assessment & Plan (1) ESRD (end stage renal disease) on dialysis: Plan: ESRD currently on PD > switched to this b/c needs better oxygenation, needs lower 02 needs so can do HD, with known LVOT obstruction, making fluid removal VERY touchy w/ this modality. tolerates PD though has in past 48 hrs now desat'd even w/ this tx. Desat'd again end of tx 12/15 >>pulm recommends aggressive UF>> but will tonight go easy on UF b/c of concerns about worse 02 status >> 6 x 1.5% bags this evening re-eval in a few days if we can change back to HD w/ gentle /conservative fluid removal goals and running on cold temp Patient is dying and there is nothing that can reverse this course. This is terminal. There is no hope for eventual improvement---Fibrotic phase of ARDS+ LVOT. I dont see him ever getting to the position where he would not have intermittent desat--he will be back as soon as that happens if we discharge him anywhere. even now on Bipap UF makes no Difference with his o2 need as this is more ARDS related. he did say yesterday he wants to continue to do dialysis. he did not want to be involved in more detailed and more involved Discussion regarding level of care. Cannot tolerate HD and Cannot even tolerate PD !!! We will skip PD tonight to allow ?? some hemodynamic Stabilization. No fluid overload. Rx Afibb Subjective Seen for PD. had Low BP and Afibb with RVR. Now in ICU. on quite variable 02 from 6-10 L. Currently on BIpap. No pain, has Chronic Sig sob. No PO intake Physical Exam Constitutional: well developed, well nourished, + frail appearing, cooperative and + in distress (mild w/ breathing ); no acute distress and no altered mental status Eyes: EOM intact bilaterally ENMT: Mouth: + dry oral mucous membranes Respiratory: normal respiratory effort, able to speak in complete sentences and + tachypneic; no labored breathing and no cough Auscultation: + diminished lung sounds (extremely) and + crackles Cardiovascular: Rate/Rhythm: regular rate and regular rhythm Heart Sounds: + murmur Extremities: no edema Gastrointestinal (Abdomen): Inspection/Auscultation: normal bowel sounds and + abdominal surgical drain present (PD catheter) Percussion/Palpation: abdomen soft; abdomen nontender Musculoskeletal: Extremities: strength 5/5 throughout Skin: no rashes, warm and dry Psychiatric: Orientation: alert and oriented x 3 Results & Data Vital Signs (Past 12 Hours) Vital Signs Temp Pulse Pulse Pulse Resp BP BP 12/23/24 09:06 81 17 12/23/24 08:15 81 17 12/23/24 08:00 92/58 L 12/23/24 08:00 37.1 C 12/23/24 08:00 12/23/24 07:51 81 20 12/23/24 07:32 84 18 12/23/24 07:03 85 18 12/23/24 04:04 91 H 18 12/23/24 03:17 36.7 C 86 20 97/54 L 12/23/24 02:53 89 24 12/23/24 02:30 88 19 12/23/24 02:18 88 29 H 12/23/24 02:00 87 28 H 12/23/24 02:00 94/52 L 12/23/24 02:00 94/52 L 12/23/24 02:00 94/52 L 12/23/24 02:00 94/52 L 12/23/24 01:59 12/23/24 01:52 90/40 L 12/23/24 01:51 36.7 C 86 26 H 12/23/24 01:15 89 24 12/23/24 01:10 88 32 H 12/23/24 01:00 88 26 H 12/23/24 00:35 89 34 H 12/23/24 00:28 87 12/23/24 00:19 86 12/23/24 00:13 88 32 H 12/23/24 00:06 89 26 H 12/23/24 00:06 87 12/22/24 23:29 126 H 12/22/24 23:04 118 H BP Pulse Ox O2 Del Method O2 Flow Rate FiO2 12/23/24 09:06 93 12/23/24 08:15 94 High Flow Nasal Cannula 40 0.5 12/23/24 08:00 12/23/24 08:00 12/23/24 08:00 High Flow Nasal Cannula 40 0.5 12/23/24 07:51 90 03/06/25 07:32 90 High Flow Nasal Cannula 40 50 12/23/24 07:03 92 12/23/24 04:04 108/58 L 94 High Flow Nasal Cannula 40 50 12/23/24 03:17 91 High Flow Nasal Cannula 40 50 12/23/24 02:53 90 High Flow Nasal Cannula 40 50 12/23/24 02:30 90 12/23/24 02:18 94 12/23/24 02:00 98 12/23/24 02:00 12/23/24 02:00 12/23/24 02:00 12/23/24 02:00 12/23/24 01:59 CPAP 80 12/23/24 01:52 12/23/24 01:51 92 12/23/24 01:15 12/23/24 01:10 88/52 L 97 BiPAP 100 12/23/24 01:00 96 12/23/24 00:35 97 BiPAP 80 12/23/24 00:28 12/23/24 00:19 12/23/24 00:13 81/47 L 99 BiPAP 100 12/23/24 00:06 96 100 12/23/24 00:06 90/52 L 12/22/24 23:29 80/50 L 12/22/24 23:04 75/49 L
--- NOTE | 2024-12-23 16:08 | Cardiology Progress Note ---
Date of Service December 23, 2024 Assessment & Plan (1) Hypertrophic cardiomyopathy: (2) Atrial flutter, paroxysmal: (3) Chronic hypotension: (4) Acute hypoxic respiratory failure: (5) ARDS (adult respiratory distress syndrome): (6) End stage renal disease: (7) Cirrhosis: Plan 79-year-old male with hypertrophic cardiomyopathy and paroxysmal atrial fibrillation/flutter earlier today. Unable to tolerate hemodialysis due to chronic hypotension and volume depletion. Hemodynamic compromise noted when patient becomes hypotensive, tachycardic, and/or volume depleted due to hypertrophic cardiomyopathy and LVOT obstruction. Worsening hypoxia secondary to COPD and fibrotic lung disease. Pneumonia versus aspiration pneumonitis noted. Patient may transition from IV amiodarone to oral formulation in a.m. if there are no recurrent episodes of atrial fibrillation overnight. Consider restarting low-dose metoprolol to tartrate 12.5 mg twice daily in a.m. Utilize midodrine for blood pressure support as ordered. Poor prognosis, multiple complex medical issues reviewed with both patient and his son at bedside. Agree with palliative care evaluation. All questions answered satisfaction both the patient and his son. Rick Tan DO, [facility] Admission and Anticipated Discharge Date Admission Date: November 19, 2024 Subjective 79-year-old male seen examined at the bedside. Episode of rapid atrial fibrillation occurred in the early a.m. 12/23/2024. IV amiodarone added with conversion to sinus rhythm. He remains on IV amiodarone infusion in sinus rhythm. Heart rate 80s-90. Patient denies palpitations or chest discomfort. Oxygen saturation 89-91% on high flow nasal cannula. Patient's son present at bedside. Review of Systems Review of Systems: All systems reviewed & are unremarkable except as noted in Subjective Physical Exam Constitutional: + ill appearing; no acute distress Respiratory: normal respiratory effort; no respiratory distress Auscultation: + crackles (B/L) and + rales (B/L); no wheezes Cardiovascular: Rate/Rhythm: regular rate and regular rhythm Heart Sounds: normal S1 and normal S2; no murmur Vessels: radial pulses present; no JVD Extremities: no edema Gastrointestinal (Abdomen): Inspection/Auscultation: normal bowel sounds; abdomen not distended Percussion/Palpation: abdomen soft; abdomen nontender, no guarding and abdomen not rigid Neurologic: CN's II-XI intact bilaterally and moves all extremities; no focal motor deficits Results & Data Vital Signs (Past 12 Hours) Vital Signs Temp Pulse Pulse Pulse Resp BP BP 12/23/24 14:57 85 18 12/23/24 14:00 77 18 12/23/24 13:06 81 18 12/23/24 12:00 100/60 12/23/24 12:00 100/60 12/23/24 12:00 81 15 12/23/24 11:49 36.4 C L 12/23/24 11:06 85 33 H 12/23/24 10:06 78 18 12/23/24 09:06 81 17 12/23/24 08:15 81 17 12/23/24 08:00 92/58 L 12/23/24 08:00 37.1 C 12/23/24 08:00 12/23/24 07:51 81 20 12/23/24 07:32 84 18 12/23/24 07:03 85 18 12/23/24 04:04 91 H 18 108/58 L Pulse Ox O2 Del Method O2 Flow Rate FiO2 12/23/24 14:57 92 High Flow Nasal Cannula 40 50 12/23/24 14:00 92 12/23/24 13:06 95 12/23/24 12:00 12/23/24 12:00 12/23/24 12:00 94 12/23/24 11:49 12/23/24 11:06 88 L 12/23/24 10:06 92 12/23/24 09:06 93 12/23/24 08:15 94 High Flow Nasal Cannula 40 0.5 12/23/24 08:00 12/23/24 08:00 12/23/24 08:00 High Flow Nasal Cannula 40 0.5 12/23/24 07:51 90 12/23/24 07:32 90 High Flow Nasal Cannula 40 50 12/23/24 07:03 92 12/23/24 04:04 94 High Flow Nasal Cannula 40 50 Laboratory Results Coagulation 12/23/24 Range/Units 03:15 PT 22.4 H (9.0-12.0) Seconds APTT 49 H (21-31) Seconds CBC 12/23/24 Range/Units 03:15 WBC 16.98 H (4.8-10.8) K/ul RBC 3.50 L (4.70-6.10) M/uL Hgb 9.9 L (14.0-18.0) g/dl Hct 30.7 L (42.0-52.0) % Plt Count 430 H (130-400) K/uL Neut # (Auto) 15.46 H (1.40-6.50) K/uL Lymph # (Auto) 0.32 L (1.20-3.40) K/uL [place] # (Auto) 0.65 H (0.11-0.59) K/uL Eos # (Auto) 0.16 (0.00-0.50) K/uL Baso # (Auto) 0.11 (0.00-0.20) K/uL Comprehensive Metabolic Panel 12/23/24 Range/Units 03:15 Sodium 137 (136-145) mmol/L Potassium 4.2 (3.5-5.1) mmol/L Chloride 96 L (98-107) mmol/L Carbon Dioxide 28 (21-32) mmol/L BUN 59 H (6-23) mg/dl Creatinine 6.27 H* D (0.6-1.4) mg/dl Glucose 187 H (70-99(Fasting)) mg/dl Calcium 8.9 (8.6-10.3) mg/dl Intake and Output 12/23/24 12/23/24 12/23/24 06:59 14:59 22:59 Intake Total 450 / 800 100 / 100 Output Total -284 / 918 0 / 0 Balance 734 / -118 100 / 100 Intake: IV 450 / 800 100 / 100 Amiodarone / D5w 360 mg In 200 200 / 200 ml @ 1 MG/MIN 33.333 mls/hr IV ONE ONE Rx#:[id number] Piperacillin/Tazobactam 4.5 gm 100 / 100 In 100 ml @ 25 mls/hr IV Q12H [facility] Rx#:[id number] Sodium Chloride 0.9% 250 ml @ 250 / 250 999 mls/hr IV .Q16M ONE Rx#: [id number] Oral 0 / 0 Output: Urine 0 / 0 Peritoneal Dialysis -286 / 915 Ultrafiltration Amount # Bowel Movements 2 / 3 0 / 0 Other: # Unmeasured Voids 0 Weight 76.2 kg Weight Measurement Method Built in [facility] (7) Cirrhosis Hepatic cirrhosis type: unspecified hepatic cirrhosis Ascites presence: with ascites Qualified Code(s): K74.60 - Unspecified cirrhosis of liver; R18.8 - Other ascites
[2024-12-24] MEDS ORDERED: Nursing to Pharmacy Communication SCH (05:00)
[2024-12-24] MEDS: INSULIN ASPART PER UNIT CHARGE SC SCH (06:15)
[2024-12-24 08:38] LABS: Hematocrit (blood only) 26.3 % (42.0-52.0); Hemoglobin 8.9 g/dl (14.0-18.0); Mean Corpuscular Hemoglobin 28.6 pg (25.0-34.0); Mean Corpuscular Hgb Conc 33.8 g/dL (32.0-36.0); Mean Corpuscular Volume 84.6 fL (80.0-100.0); Mean Platelet Volume 11.1 fL (9.4-12.4); Nucleated RBC # (auto) 0.06 K/uL (0.00-0.12); Nucleated RBC % (auto) 0.4 %; Platelet Count 446 K/uL (130-400); RDW Coefficient of Variation 16.3 % (11.5-14.5); RDW Standard Deviation 49.2 fL (36.4-46.3); Red Blood Count 3.11 M/uL (4.70-6.10)
[2024-12-24 08:45] LABS: BUN Creatinine Ratio 10.1 (10-20); Calcium 8.7 mg/dl (8.6-10.3); Creatinine Clr Calc Pharmacy 8.7 ml/min; Magnesium 2.2 mg/dl (1.7-2.4); Phosphorus 5.8 mg/dl (2.5-4.9); Potassium 4.6 mmol/L (3.5-5.1)
--- NOTE | 2024-12-24 08:50 | Palliative Care Progress Note ---
Date of Service December 24, 2024 Assessment & Plan (1) Dyspnea and respiratory abnormalities: Plan: CARDS related fibrotic lung + COPD Progressive cardiopulmonary failure complicated by cardiorenal failure Intol of HD not a PD candidate Terminally ill noted by nephro no longer able to safely tolerate HD, persistent hypotension (2) Intermittent confusion: (3) Advanced care planning/counseling discussion: Plan: A face to face ACP discussion was held with pt this morning for 25 min and another larger multidisciplinary meeting with pt and son is planned for 11am today (for which a separate ACP family meeting note will be entered.) Lucius and I discussed the overall prognosis is poor: He is not tolerating HD. PD is not an option. He has an unfixable heart problem which is creating trouble to lerating HD and in addition his lungs are failing as his covid related fibrotic disease and pre existing COPD continue to worsen. Unfortuantly Lucius has very limited insight and judgment. Other than telling me "I want everything done" he cannot extend an understanding of deeper issues. Fixates on being deprived of oral intake and cannot explain his kidney failure circumstances to me this morning. His [facility] is negative, which suggests he does not currently meet the criteria for delirium, which assesses acute changes in mental status, inattention, disorganized thinking, and altered consciousness. However, the symptoms of intermittent confusion, poor insight and judgment, and perseverationcould point to other underlying issues, includin. Underlying Dementia or Mild Cognitive Impairment (MCI) These symptoms are common in early or moderate dementia, particularly in vascular dementia, Lewy body dementia, or frontotemporal dementia (which often presents with poor insight and repetitive behaviors). 2. Chronic Cognitive Impairment from Medical or Neurological Causes Prior strokes, traumatic brain injuries, or neurodegenerative conditions can cause cognitive deficits even in the absence of acute delirium. 3. Mood or Psychiatric Disorders Depression in older adults can mimic cognitive impairment (pseudodementia), and perseveration may be seen in obsessive-compulsive disorder, schizophrenia, or psychotic depression. 4. Medication Effects Some medications, particularly benzodiazepines, anticholinergics, opioids, or sedatives, can cause cognitive slowing, disorganization, or perseveration. 5. Metabolic or Endocrine Issues Chronic issues like hypothyroidism, vitamin B12 deficiency, or hepatic/renal dysfunction can lead to cognitive impairment that fluctuates but does not necessarily present as delirium. Lucius has impaired judgment and limited insight He was not able to explain his understanding of the implications of his "do all the things" decision making I advised Lucius I am worried we are reaching the end of his life, with multiple organ systems failing and no longer fixable. I asked him to think about what he might want as a focus for the end of life ie what matters most, who does he want that time to be with and how can we best support him through this ? (4) Counseling regarding goals of care: (5) Palliative care by specialist: Plan: Introduced Palliative Medicine and explained our role in patient's care. Patient and/or family were receptive to palliative services for goals of care dis cussions. Reviewed we are different from hospice, a home health nurse visiting service. Plan As above Thank you for allowing us to participate in the ongoing care of this patient. Please page with any additional concerns. Russell Bonds DNP Director, Palliative Medicine Admission and Anticipated Discharge Date Admission Date: November 19, 2024 Subjective Palliative Med was requested to re engage - there is a MDT family meeting planned for today at 11am per nursing. CHart reviewed: Monster is a 79yo male with hypertrophic cardiomyopathy who is unable to tolerate hemodialysis due to chronic hypotension and volume depletion. His hemodynamic compromise manifests as hypotensive, tachycardic, and/or volume depleted due to hypertrophic cardiomyopathy and LVOT obstruction. He has signif worsening hypoxia secondary to COPD and fibrotic lung disease, there is PNA (aspiration) +/- pneumonitis noted. He is now NPO Per nephro: Patient is dying and there is nothing that can reverse this course. This is te rminal. There is no hope for eventual improvement---Fibrotic phase of ARDS+ LVOT. I don't see him ever getting to the position where he would not have intermittent desat--he will be back as soon as that happens if we discharge him anywhere. even now on BiPAP UF makes no Difference with his o2 need as this is more ARDS related. he did say yesterday he wants to continue to do dialysis. he did not want to be involved in more detailed and more involved Discussion regarding level of care. Cannot tolerate HD and Cannot even tolerate PD !!! We will skip PD tonight to allow ?? some hemodynamic Stabilization. No fluid overload. Lucius is seen bedside this morning, no family present He is awake and alert but mod confused at times he is unable to tell me the yi medical issues and he is perseverating on being kept NPO< repeatedly asks me to get him a glass of water and states the only problem he has "is they won't water me." He denies pain He remains on HFNC He denies n/v he has a mild intermittent cough Review of Systems Review of Systems: All systems reviewed & are unremarkable except as noted in Subjective Physical Exam Physical Exam: elderly male chronically ill appearing awakens to voice moderately confused at times follows very simple directions at times mild bitemp wasting perrla neck supple/no stridor resp effort WAL at rest, int cough/sl bronchitic tachy s1s1, irreg abd soft, BS+ GARCIA, gen weakness following simple commands Alert to self place "it's some sort of a hospital" year 2026December date the judgment limited insight very limited [facility]ICU: negative Results & Data Vital Signs (Past 12 Hours) Vital Signs Temp Pulse Pulse Pulse Pulse Resp BP 12/24/24 08:19 36.3 C L 12/24/24 07:52 80 18 12/24/24 07:00 83 12/24/24 04:00 37.2 C 81 81 24 12/24/24 03:41 80 18 12/24/24 02:18 86 13 12/24/24 01:30 86 26 H 12/24/24 01:06 87 34 H 12/24/24 00:48 85 33 H 12/24/24 00:21 84 27 H 12/24/24 00:00 101/60 12/23/24 23:54 87 28 H 12/23/24 23:33 82 25 H 12/23/24 23:15 82 27 H 12/23/24 23:04 82 18 12/23/24 22:35 81 12/23/24 22:30 84 24 12/23/24 22:24 83 31 H 12/23/24 21:33 83 27 H 12/23/24 21:24 82 25 H BP Pulse Ox O2 Del Method O2 Flow Rate FiO2 12/24/24 08:19 12/24/24 07:52 96 High Flow Nasal Cannula 30 45 12/24/24 07:00 12/24/24 04:00 111/71 94 High Flow Nasal Cannula 30 50 12/24/24 03:41 95 High Flow Nasal Cannula 30 50 12/24/24 02:18 93 High Flow Nasal Cannula 30 50 12/24/24 01:30 91 12/24/24 01:06 91 12/24/24 00:48 90 12/24/24 00:21 94 High Flow Nasal Cannula 30 50 12/24/24 00:00 12/23/24 23:54 95 12/23/24 23:33 95 12/23/24 23:15 95 12/23/24 23:04 95 High Flow Nasal Cannula 30 50 12/23/24 22:35 12/23/24 22:30 95 12/23/24 22:24 93 12/23/24 21:33 94 High Flow Nasal Cannula 30 50 12/23/24 21:24 96 Laboratory Results 12/24/24 12/24/24 12/24/24 Range/Units 08:10 08:06 06:13 WBC 16.40 H (4.8-10.8) K/ul RBC 3.11 L (4.70-6.10) M/uL Hgb 8.9 L (14.0-18.0) g/dl POC Hgb (14.0-18.0) g/dl Hct 26.3 L (42.0-52.0) % POC Hct (42-52) % MCV 84.6 (80.0-100.0) fL MCH 28.6 (25.0-34.0) pg MCHC 33.8 (32.0-36.0) g/dL RDW Std Deviation 49.2 H (36.4-46.3) fL RDW Coeff of Maureen 16.3 H (11.5-14.5) % Plt Count 446 H (130-400) K/uL MPV 11.1 (9.4-12.4) fL Immature Gran % (Auto) % Neut % (Auto) % Lymph % (Auto) % [place] % (Auto) % Eos % (Auto) % Baso % (Auto) % Neut # (Auto) (1.40-6.50) K/uL Lymph # (Auto) (1.20-3.40) K/uL [place] # (Auto) (0.11-0.59) K/uL Eos # (Auto) (0.00-0.50) K/uL Baso # (Auto) (0.00-0.20) K/uL Immature Gran # (Auto) (0.01-0.20) K/uL Absolute Nucleated RBC 0.06 (0.00-0.12) K/uL Nucleated RBC % (auto) 0.4 % Polychromasia PT Pending (9.0-12.0) Seconds INR Pending (0.9-1.1) APTT (21-31) Seconds PTT Ratio POC pH (7.35-7.45) POC pCO2 (35-46) mmHg POC pO2 (80-95) mmHg POC HCO3 (19-24) chelle/L POC Total CO2 (24-31) mmol/L POC Base Excess (-9-1.8) chelle/L POC ABG O2 Sat (90-95) % VBG pH (7.36-7.41) VBG pCO2 (38-50) mmHg VBG pO2 mmHg VBG HCO3 mmol/L VBG O2 Saturation % VBG Base Excess mEq/L POC Sodium (135-144) mmol/L Sodium 140 (136-145) mmol/L POC Potassium (3.3-5.0) mmol/L Potassium 4.6 (3.5-5.1) mmol/L Chloride 95 L (98-107) mmol/L Carbon Dioxide 29 (21-32) mmol/L Anion Gap 16 H (3-11) BUN 75 H (6-23) mg/dl Creatinine 7.44 H* D (0.6-1.4) mg/dl Est Cr Clr Drug Dosing 8.7 ml/min eGFR 6.93 BUN/Creatinine Ratio 10.1 (10-20) Glucose 127 H (70-99(Fasting)) mg/dl POC Glucose 131 H (70-99) mg/dl Fasting Glucose (70-99) mg/dl Lactate 1.8 (0.4-2.0) mmol/L Calcium 8.7 (8.6-10.3) mg/dl Phosphorus 5.8 H (2.5-4.9) mg/dl Magnesium 2.2 (1.7-2.4) mg/dl Procalcitonin (0-0.5) ng/ml Nasal Screen MRSA (PCR) (Negative) Stl C. diff Tox B Gene (Neg) 12/23/24 12/23/24 12/23/24 Range/Units 21:28 17:19 14:40 WBC (4.8-10.8) K/ul RBC (4.70-6.10) M/uL Hgb (14.0-18.0) g/dl POC Hgb (14.0-18.0) g/dl Hct (42.0-52.0) % POC Hct (42-52) % MCV (80.0-100.0) fL MCH (25.0-34.0) pg MCHC (32.0-36.0) g/dL RDW Std Deviation (36.4-46.3) fL RDW Coeff of Maureen (11.5-14.5) % Plt Count (130-400) K/uL MPV (9.4-12.4) fL Immature Gran % (Auto) % Neut % (Auto) % Lymph % (Auto) % [place] % (Auto) % Eos % (Auto) % Baso % (Auto) % Neut # (Auto) (1.40-6.50) K/uL Lymph # (Auto) (1.20-3.40) K/uL [place] # (Auto) (0.11-0.59) K/uL Eos # (Auto) (0.00-0.50) K/uL Baso # (Auto) (0.00-0.20) K/uL Immature Gran # (Auto) (0.01-0.20) K/uL Absolute Nucleated RBC (0.00-0.12) K/uL Nucleated RBC % (auto) % Polychromasia PT (9.0-12.0) Seconds INR (0.9-1.1) APTT (21-31) Seconds PTT Ratio POC pH (7.35-7.45) POC pCO2 (35-46) mmHg POC pO2 (80-95) mmHg POC HCO3 (19-24) chelle/L POC Total CO2 (24-31) mmol/L POC Base Excess (-9-1.8) chelle/L POC ABG O2 Sat (90-95) % VBG pH (7.36-7.41) VBG pCO2 (38-50) mmHg VBG pO2 mmHg VBG HCO3 mmol/L VBG O2 Saturation % VBG Base Excess mEq/L POC Sodium (135-144) mmol/L Sodium (136-145) mmol/L POC Potassium (3.3-5.0) mmol/L Potassium (3.5-5.1) mmol/L Chloride (98-107) mmol/L Carbon Dioxide (21-32) mmol/L Anion Gap (3-11) BUN (6-23) mg/dl Creatinine (0.6-1.4) mg/dl Est Cr Clr Drug Dosing ml/min eGFR BUN/Creatinine Ratio (10-20) Glucose (70-99(Fasting)) mg/dl POC Glucose 135 H 155 H (70-99) mg/dl Fasting Glucose (70-99) mg/dl Lactate 3.0 H* (0.4-2.0) mmol/L Calcium (8.6-10.3) mg/dl Phosphorus (2.5-4.9) mg/dl Magnesium (1.7-2.4) mg/dl Procalcitonin (0-0.5) ng/ml Nasal Screen MRSA (PCR) (Negative) Stl C. diff Tox B Gene (Neg) 12/23/24 12/23/24 12/23/24 Range/Units 11:39 03:31 03:15 WBC 16.98 H (4.8-10.8) K/ul RBC 3.50 L (4.70-6.10) M/uL Hgb 9.9 L (14.0-18.0) g/dl POC Hgb (14.0-18.0) g/dl Hct 30.7 L (42.0-52.0) % POC Hct (42-52) % MCV 87.7 (80.0-100.0) fL MCH 28.3 (25.0-34.0) pg MCHC 32.2 (32.0-36.0) g/dL RDW Std Deviation 52.6 H (36.4-46.3) fL RDW Coeff of Maureen 16.6 H (11.5-14.5) % Plt Count 430 H (130-400) K/uL MPV 11.3 (9.4-12.4) fL Immature Gran % (Auto) 1.6 % Neut % (Auto) 91.2 % Lymph % (Auto) 1.9 % [place] % (Auto) 3.8 % Eos % (Auto) 0.9 % Baso % (Auto) 0.6 % Neut # (Auto) 15.46 H (1.40-6.50) K/uL Lymph # (Auto) 0.32 L (1.20-3.40) K/uL [place] # (Auto) 0.65 H (0.11-0.59) K/uL Eos # (Auto) 0.16 (0.00-0.50) K/uL Baso # (Auto) 0.11 (0.00-0.20) K/uL Immature Gran # (Auto) 0.28 H (0.01-0.20) K/uL Absolute Nucleated RBC (0.00-0.12) K/uL Nucleated RBC % (auto) % Polychromasia 1+ PT 22.4 H (9.0-12.0) Seconds INR 2.2 H (0.9-1.1) APTT 49 H (21-31) Seconds PTT Ratio 1.8 POC pH (7.35-7.45) POC pCO2 (35-46) mmHg POC pO2 (80-95) mmHg POC HCO3 (19-24) chelle/L POC Total CO2 (24-31) mmol/L POC Base Excess (-9-1.8) chelle/L POC ABG O2 Sat (90-95) % VBG pH (7.36-7.41) VBG pCO2 (38-50) mmHg VBG pO2 mmHg VBG HCO3 mmol/L VBG O2 Saturation % VBG Base Excess mEq/L POC Sodium (135-144) mmol/L Sodium 137 (136-145) mmol/L POC Potassium (3.3-5.0) mmol/L Potassium 4.2 (3.5-5.1) mmol/L Chloride 96 L (98-107) mmol/L Carbon Dioxide 28 (21-32) mmol/L Anion Gap 13 H (3-11) BUN 59 H (6-23) mg/dl Creatinine 6.27 H* D (0.6-1.4) mg/dl Est Cr Clr Drug Dosing 10.7 ml/min eGFR 8.51 BUN/Creatinine Ratio 9.4 L (10-20) Glucose 187 H (70-99(Fasting)) mg/dl POC Glucose 180 H (70-99) mg/dl Fasting Glucose (70-99) mg/dl Lactate 3.5 H* (0.4-2.0) mmol/L Calcium 8.9 (8.6-10.3) mg/dl Phosphorus (2.5-4.9) mg/dl Magnesium (1.7-2.4) mg/dl Procalcitonin (0-0.5) ng/ml Nasal Screen MRSA (PCR) (Negative) Stl C. diff Tox B Gene (Neg) 12/23/24 12/23/24 12/22/24 Range/Units 00:28 00:26 23:08 WBC (4.8-10.8) K/ul RBC (4.70-6.10) M/uL Hgb (14.0-18.0) g/dl POC Hgb 9.9 L (14.0-18.0) g/dl Hct (42.0-52.0) % POC Hct 29 L (42-52) % MCV (80.0-100.0) fL MCH (25.0-34.0) pg MCHC (32.0-36.0) g/dL RDW Std Deviation (36.4-46.3) fL RDW Coeff of Maureen (11.5-14.5) % Plt Count (130-400) K/uL MPV (9.4-12.4) fL Immature Gran % (Auto) % Neut % (Auto) % Lymph % (Auto) % [place] % (Auto) % Eos % (Auto) % Baso % (Auto) % Neut # (Auto) (1.40-6.50) K/uL Lymph # (Auto) (1.20-3.40) K/uL [place] # (Auto) (0.11-0.59) K/uL Eos # (Auto) (0.00-0.50) K/uL Baso # (Auto) (0.00-0.20) K/uL Immature Gran # (Auto) (0.01-0.20) K/uL Absolute Nucleated RBC (0.00-0.12) K/uL Nucleated RBC % (auto) % Polychromasia PT (9.0-12.0) Seconds INR (0.9-1.1) APTT (21-31) Seconds PTT Ratio POC pH 7.47 H (7.35-7.45) POC pCO2 36 (35-46) mmHg POC pO2 78 L (80-95) mmHg POC HCO3 26 H (19-24) chelle/L POC Total CO2 27 (24-31) mmol/L POC Base Excess 2.0 H (-9-1.8) chelle/L POC ABG O2 Sat 96.0 H (90-95) % VBG pH 7.43 H (7.36-7.41) VBG pCO2 49 (38-50) mmHg VBG pO2 30 mmHg VBG HCO3 33 mmol/L VBG O2 Saturation < 60.0 % VBG Base Excess 6.9 mEq/L POC Sodium 134 L (135-144) mmol/L Sodium (136-145) mmol/L POC Potassium 3.8 (3.3-5.0) mmol/L Potassium (3.5-5.1) mmol/L Chloride (98-107) mmol/L Carbon Dioxide (21-32) mmol/L Anion Gap (3-11) BUN (6-23) mg/dl Creatinine (0.6-1.4) mg/dl Est Cr Clr Drug Dosing ml/min eGFR BUN/Creatinine Ratio (10-20) Glucose (70-99(Fasting)) mg/dl POC Glucose (70-99) mg/dl Fasting Glucose (70-99) mg/dl Lactate 3.8 H* (0.4-2.0) mmol/L Calcium (8.6-10.3) mg/dl Phosphorus (2.5-4.9) mg/dl Magnesium (1.7-2.4) mg/dl Procalcitonin (0-0.5) ng/ml Nasal Screen MRSA (PCR) Negative (Negative) Stl C. diff Tox B Gene (Neg) 12/22/24 12/22/24 12/22/24 Range/Units 20:43 17:01 16:36 WBC (4.8-10.8) K/ul RBC (4.70-6.10) M/uL Hgb (14.0-18.0) g/dl POC Hgb (14.0-18.0) g/dl Hct (42.0-52.0) % POC Hct (42-52) % MCV (80.0-100.0) fL MCH (25.0-34.0) pg MCHC (32.0-36.0) g/dL RDW Std Deviation (36.4-46.3) fL RDW Coeff of Maureen (11.5-14.5) % Plt Count (130-400) K/uL MPV (9.4-12.4) fL Immature Gran % (Auto) % Neut % (Auto) % Lymph % (Auto) % [place] % (Auto) % Eos % (Auto) % Baso % (Auto) % Neut # (Auto) (1.40-6.50) K/uL Lymph # (Auto) (1.20-3.40) K/uL [place] # (Auto) (0.11-0.59) K/uL Eos # (Auto) (0.00-0.50) K/uL Baso # (Auto) (0.00-0.20) K/uL Immature Gran # (Auto) (0.01-0.20) K/uL Absolute Nucleated RBC (0.00-0.12) K/uL Nucleated RBC % (auto) % Polychromasia PT (9.0-12.0) Seconds INR (0.9-1.1) APTT (21-31) Seconds PTT Ratio POC pH (7.35-7.45) POC pCO2 (35-46) mmHg POC pO2 (80-95) mmHg POC HCO3 (19-24) chelle/L POC Total CO2 (24-31) mmol/L POC Base Excess (-9-1.8) chelle/L POC ABG O2 Sat (90-95) % VBG pH (7.36-7.41) VBG pCO2 (38-50) mmHg VBG pO2 mmHg VBG HCO3 mmol/L VBG O2 Saturation % VBG Base Excess mEq/L POC Sodium (135-144) mmol/L Sodium (136-145) mmol/L POC Potassium (3.3-5.0) mmol/L Potassium (3.5-5.1) mmol/L Chloride (98-107) mmol/L Carbon Dioxide (21-32) mmol/L Anion Gap (3-11) BUN (6-23) mg/dl Creatinine (0.6-1.4) mg/dl Est Cr Clr Drug Dosing ml/min eGFR BUN/Creatinine Ratio (10-20) Glucose (70-99(Fasting)) mg/dl POC Glucose 204 H 153 H (70-99) mg/dl Fasting Glucose (70-99) mg/dl Lactate (0.4-2.0) mmol/L Calcium (8.6-10.3) mg/dl Phosphorus (2.5-4.9) mg/dl Magnesium (1.7-2.4) mg/dl Procalcitonin (0-0.5) ng/ml Nasal Screen MRSA (PCR) (Negative) Stl C. diff Tox B Gene Negative Cdiff Gene (Neg) 12/22/24 12/22/24 12/22/24 Range/Units 12:55 09:31 08:30 WBC 19.00 H (4.8-10.8) K/ul RBC 3.88 L (4.70-6.10) M/uL Hgb 11.1 L (14.0-18.0) g/dl POC Hgb 10.5 L (14.0-18.0) g/dl Hct 34.4 L (42.0-52.0) % POC Hct 31 L (42-52) % MCV 88.7 (80.0-100.0) fL MCH 28.6 (25.0-34.0) pg MCHC 32.3 (32.0-36.0) g/dL RDW Std Deviation 53.2 H (36.4-46.3) fL RDW Coeff of Maureen 16.6 H (11.5-14.5) % Plt Count 463 H (130-400) K/uL MPV 11.4 (9.4-12.4) fL Immature Gran % (Auto) 1.7 % Neut % (Auto) 78.2 % Lymph % (Auto) 5.6 % [place] % (Auto) 11.1 % Eos % (Auto) 2.2 % Baso % (Auto) 1.2 % Neut # (Auto) 14.85 H (1.40-6.50) K/uL Lymph # (Auto) 1.07 L (1.20-3.40) K/uL [place] # (Auto) 2.11 H (0.11-0.59) K/uL Eos # (Auto) 0.42 (0.00-0.50) K/uL Baso # (Auto) 0.22 H (0.00-0.20) K/uL Immature Gran # (Auto) 0.33 H (0.01-0.20) K/uL Absolute Nucleated RBC (0.00-0.12) K/uL Nucleated RBC % (auto) % Polychromasia PT 19.4 H (9.0-12.0) Seconds INR 1.9 H (0.9-1.1) APTT (21-31) Seconds PTT Ratio POC pH 7.47 H (7.35-7.45) POC pCO2 35 (35-46) mmHg POC pO2 56 L (80-95) mmHg POC HCO3 26 H (19-24) chelle/L POC Total CO2 27 (24-31) mmol/L POC Base Excess 2.0 H (-9-1.8) chelle/L POC ABG O2 Sat 91.0 (90-95) % VBG pH (7.36-7.41) VBG pCO2 (38-50) mmHg VBG pO2 mmHg VBG HCO3 mmol/L VBG O2 Saturation % VBG Base Excess mEq/L POC Sodium 135 (135-144) mmol/L Sodium 138 (136-145) mmol/L POC Potassium 3.9 (3.3-5.0) mmol/L Potassium 4.3 (3.5-5.1) mmol/L Chloride 96 L (98-107) mmol/L Carbon Dioxide 31 (21-32) mmol/L Anion Gap 11 (3-11) BUN 49 H (6-23) mg/dl Creatinine 5.67 H* D (0.6-1.4) mg/dl Est Cr Clr Drug Dosing 11.8 ml/min eGFR 9.60 BUN/Creatinine Ratio (10-20) Glucose (70-99(Fasting)) mg/dl POC Glucose 166 H (70-99) mg/dl Fasting Glucose 150 H (70-99) mg/dl Lactate (0.4-2.0) mmol/L Calcium 9.2 (8.6-10.3) mg/dl Phosphorus (2.5-4.9) mg/dl Magnesium 2.1 (1.7-2.4) mg/dl Procalcitonin 1.94 H (0-0.5) ng/ml Nasal Screen MRSA (PCR) (Negative) Stl C. diff Tox B Gene (Neg) 12/22/24 12/21/24 12/21/24 Range/Units 07:48 20:16 17:02 WBC (4.8-10.8) K/ul RBC (4.70-6.10) M/uL Hgb (14.0-18.0) g/dl POC Hgb (14.0-18.0) g/dl Hct (42.0-52.0) % POC Hct (42-52) % MCV (80.0-100.0) fL MCH (25.0-34.0) pg MCHC (32.0-36.0) g/dL RDW Std Deviation (36.4-46.3) fL RDW Coeff of Maureen (11.5-14.5) % Plt Count (130-400) K/uL MPV (9.4-12.4) fL Immature Gran % (Auto) % Neut % (Auto) % Lymph % (Auto) % [place] % (Auto) % Eos % (Auto) % Baso % (Auto) % Neut # (Auto) (1.40-6.50) K/uL Lymph # (Auto) (1.20-3.40) K/uL [place] # (Auto) (0.11-0.59) K/uL Eos # (Auto) (0.00-0.50) K/uL Baso # (Auto) (0.00-0.20) K/uL Immature Gran # (Auto) (0.01-0.20) K/uL Absolute Nucleated RBC (0.00-0.12) K/uL Nucleated RBC % (auto) % Polychromasia PT (9.0-12.0) Seconds INR (0.9-1.1) APTT (21-31) Seconds PTT Ratio POC pH (7.35-7.45) POC pCO2 (35-46) mmHg POC pO2 (80-95) mmHg POC HCO3 (19-24) chelle/L POC Total CO2 (24-31) mmol/L POC Base Excess (-9-1.8) chelle/L POC ABG O2 Sat (90-95) % VBG pH (7.36-7.41) VBG pCO2 (38-50) mmHg VBG pO2 mmHg VBG HCO3 mmol/L VBG O2 Saturation % VBG Base Excess mEq/L POC Sodium (135-144) mmol/L Sodium (136-145) mmol/L POC Potassium (3.3-5.0) mmol/L Potassium (3.5-5.1) mmol/L Chloride (98-107) mmol/L Carbon Dioxide (21-32) mmol/L Anion Gap (3-11) BUN (6-23) mg/dl Creatinine (0.6-1.4) mg/dl Est Cr Clr Drug Dosing ml/min eGFR BUN/Creatinine Ratio (10-20) Glucose (70-99(Fasting)) mg/dl POC Glucose 157 H 219 H 180 H (70-99) mg/dl Fasting Glucose (70-99) mg/dl Lactate (0.4-2.0) mmol/L Calcium (8.6-10.3) mg/dl Phosphorus (2.5-4.9) mg/dl Magnesium (1.7-2.4) mg/dl Procalcitonin (0-0.5) ng/ml Nasal Screen MRSA (PCR) (Negative) Stl C. diff Tox B Gene (Neg) 12/21/24 12/21/24 12/21/24 Range/Units 12:14 12:04 08:30 WBC 19.26 H (4.8-10.8) K/ul RBC 3.64 L (4.70-6.10) M/uL Hgb 10.6 L (14.0-18.0) g/dl POC Hgb (14.0-18.0) g/dl Hct 32.3 L (42.0-52.0) % POC Hct (42-52) % MCV 88.7 (80.0-100.0) fL MCH 29.1 (25.0-34.0) pg MCHC 32.8 (32.0-36.0) g/dL RDW Std Deviation 53.9 H (36.4-46.3) fL RDW Coeff of Maureen 16.7 H (11.5-14.5) % Plt Count 419 H (130-400) K/uL MPV 11.4 (9.4-12.4) fL Immature Gran % (Auto) % Neut % (Auto) % Lymph % (Auto) % [place] % (Auto) % Eos % (Auto) % Baso % (Auto) % Neut # (Auto) (1.40-6.50) K/uL Lymph # (Auto) (1.20-3.40) K/uL [place] # (Auto) (0.11-0.59) K/uL Eos # (Auto) (0.00-0.50) K/uL Baso # (Auto) (0.00-0.20) K/uL Immature Gran # (Auto) (0.01-0.20) K/uL Absolute Nucleated RBC (0.00-0.12) K/uL Nucleated RBC % (auto) % Polychromasia PT (9.0-12.0) Seconds INR (0.9-1.1) APTT (21-31) Seconds PTT Ratio POC pH (7.35-7.45) POC pCO2 (35-46) mmHg POC pO2 (80-95) mmHg POC HCO3 (19-24) chelle/L POC Total CO2 (24-31) mmol/L POC Base Excess (-9-1.8) chelle/L POC ABG O2 Sat (90-95) % VBG pH (7.36-7.41) VBG pCO2 (38-50) mmHg VBG pO2 mmHg VBG HCO3 mmol/L VBG O2 Saturation % VBG Base Excess mEq/L POC Sodium (135-144) mmol/L Sodium (136-145) mmol/L POC Potassium (3.3-5.0) mmol/L Potassium (3.5-5.1) mmol/L Chloride (98-107) mmol/L Carbon Dioxide (21-32) mmol/L Anion Gap (3-11) BUN (6-23) mg/dl Creatinine (0.6-1.4) mg/dl Est Cr Clr Drug Dosing ml/min eGFR BUN/Creatinine Ratio (10-20) Glucose (70-99(Fasting)) mg/dl POC Glucose 149 H (70-99) mg/dl Fasting Glucose (70-99) mg/dl Lactate (0.4-2.0) mmol/L Calcium (8.6-10.3) mg/dl Phosphorus (2.5-4.9) mg/dl Magnesium (1.7-2.4) mg/dl Procalcitonin (0-0.5) ng/ml Nasal Screen MRSA (PCR) Negative (Negative) Stl C. diff Tox B Gene (Neg) 12/21/24 12/21/24 12/20/24 Range/Units 07:55 06:08 20:53 WBC 17.75 H (4.8-10.8) K/ul RBC 3.80 L (4.70-6.10) M/uL Hgb 10.9 L (14.0-18.0) g/dl POC Hgb (14.0-18.0) g/dl Hct 33.9 L (42.0-52.0) % POC Hct (42-52) % MCV 89.2 (80.0-100.0) fL MCH 28.7 (25.0-34.0) pg MCHC 32.2 (32.0-36.0) g/dL RDW Std Deviation 54.4 H (36.4-46.3) fL RDW Coeff of Maureen 16.8 H (11.5-14.5) % Plt Count 424 H (130-400) K/uL MPV 11.4 (9.4-12.4) fL Immature Gran % (Auto) 1.0 % Neut % (Auto) 80.0 % Lymph % (Auto) 4.6 % [place] % (Auto) 11.6 % Eos % (Auto) 2.1 % Baso % (Auto) 0.7 % Neut # (Auto) 14.21 H (1.40-6.50) K/uL Lymph # (Auto) 0.81 L (1.20-3.40) K/uL [place] # (Auto) 2.07 H (0.11-0.59) K/uL Eos # (Auto) 0.38 (0.00-0.50) K/uL Baso # (Auto) 0.13 (0.00-0.20) K/uL Immature Gran # (Auto) 0.18 (0.01-0.20) K/uL Absolute Nucleated RBC (0.00-0.12) K/uL Nucleated RBC % (auto) % Polychromasia PT 16.1 H (9.0-12.0) Seconds INR 1.5 H (0.9-1.1) APTT (21-31) Seconds PTT Ratio POC pH (7.35-7.45) POC pCO2 (35-46) mmHg POC pO2 (80-95) mmHg POC HCO3 (19-24) chelle/L POC Total CO2 (24-31) mmol/L POC Base Excess (-9-1.8) chelle/L POC ABG O2 Sat (90-95) % VBG pH (7.36-7.41) VBG pCO2 (38-50) mmHg VBG pO2 mmHg VBG HCO3 mmol/L VBG O2 Saturation % VBG Base Excess mEq/L POC Sodium (135-144) mmol/L Sodium 135 L (136-145) mmol/L POC Potassium (3.3-5.0) mmol/L Potassium 4.2 (3.5-5.1) mmol/L Chloride 95 L (98-107) mmol/L Carbon Dioxide 33 H (21-32) mmol/L Anion Gap 7 (3-11) BUN 44 H (6-23) mg/dl Creatinine 5.25 H* (0.6-1.4) mg/dl Est Cr Clr Drug Dosing 12.7 ml/min eGFR 10.53 BUN/Creatinine Ratio 8.4 L (10-20) Glucose 220 H (70-99(Fasting)) mg/dl POC Glucose 212 H 216 H (70-99) mg/dl Fasting Glucose (70-99) mg/dl Lactate (0.4-2.0) mmol/L Calcium 9.2 (8.6-10.3) mg/dl Phosphorus 3.9 (2.5-4.9) mg/dl Magnesium 2.2 (1.7-2.4) mg/dl Procalcitonin (0-0.5) ng/ml Nasal Screen MRSA (PCR) (Negative) Stl C. diff Tox B Gene (Neg) 12/20/24 12/20/24 12/20/24 Range/Units 16:47 11:32 08:13 WBC (4.8-10.8) K/ul RBC (4.70-6.10) M/uL Hgb (14.0-18.0) g/dl POC Hgb (14.0-18.0) g/dl Hct (42.0-52.0) % POC Hct (42-52) % MCV (80.0-100.0) fL MCH (25.0-34.0) pg MCHC (32.0-36.0) g/dL RDW Std Deviation (36.4-46.3) fL RDW Coeff of Maureen (11.5-14.5) % Plt Count (130-400) K/uL MPV (9.4-12.4) fL Immature Gran % (Auto) % Neut % (Auto) % Lymph % (Auto) % [place] % (Auto) % Eos % (Auto) % Baso % (Auto) % Neut # (Auto) (1.40-6.50) K/uL Lymph # (Auto) (1.20-3.40) K/uL [place] # (Auto) (0.11-0.59) K/uL Eos # (Auto) (0.00-0.50) K/uL Baso # (Auto) (0.00-0.20) K/uL Immature Gran # (Auto) (0.01-0.20) K/uL Absolute Nucleated RBC (0.00-0.12) K/uL Nucleated RBC % (auto) % Polychromasia PT 13.5 H (9.0-12.0) Seconds INR 1.3 H (0.9-1.1) APTT (21-31) Seconds PTT Ratio POC pH (7.35-7.45) POC pCO2 (35-46) mmHg POC pO2 (80-95) mmHg POC HCO3 (19-24) chelle/L POC Total CO2 (24-31) mmol/L POC Base Excess (-9-1.8) chelle/L POC ABG O2 Sat (90-95) % VBG pH (7.36-7.41) VBG pCO2 (38-50) mmHg VBG pO2 mmHg VBG HCO3 mmol/L VBG O2 Saturation % VBG Base Excess mEq/L POC Sodium (135-144) mmol/L Sodium 135 L (136-145) mmol/L POC Potassium (3.3-5.0) mmol/L Potassium 4.8 (3.5-5.1) mmol/L Chloride 95 L (98-107) mmol/L Carbon Dioxide 33 H (21-32) mmol/L Anion Gap 7 (3-11) BUN 41 H (6-23) mg/dl Creatinine 4.98 H* (0.6-1.4) mg/dl Est Cr Clr Drug Dosing 13.4 ml/min eGFR 11.22 BUN/Creatinine Ratio 8.2 L (10-20) Glucose 161 H (70-99(Fasting)) mg/dl POC Glucose 165 H 147 H (70-99) mg/dl Fasting Glucose (70-99) mg/dl Lactate (0.4-2.0) mmol/L Calcium 9.3 (8.6-10.3) mg/dl Phosphorus (2.5-4.9) mg/dl Magnesium 1.5 L (1.7-2.4) mg/dl Procalcitonin (0-0.5) ng/ml Nasal Screen MRSA (PCR) (Negative) Stl C. diff Tox B Gene (Neg) 12/20/24 12/20/24 12/19/24 Range/Units 07:58 07:10 20:02 WBC (4.8-10.8) K/ul RBC (4.70-6.10) M/uL Hgb 10.7 L (14.0-18.0) g/dl POC Hgb (14.0-18.0) g/dl Hct (42.0-52.0) % POC Hct (42-52) % MCV (80.0-100.0) fL MCH (25.0-34.0) pg MCHC (32.0-36.0) g/dL RDW Std Deviation (36.4-46.3) fL RDW Coeff of Maureen (11.5-14.5) % Plt Count (130-400) K/uL MPV (9.4-12.4) fL Immature Gran % (Auto) % Neut % (Auto) % Lymph % (Auto) % [place] % (Auto) % Eos % (Auto) % Baso % (Auto) % Neut # (Auto) (1.40-6.50) K/uL Lymph # (Auto) (1.20-3.40) K/uL [place] # (Auto) (0.11-0.59) K/uL Eos # (Auto) (0.00-0.50) K/uL Baso # (Auto) (0.00-0.20) K/uL Immature Gran # (Auto) (0.01-0.20) K/uL Absolute Nucleated RBC (0.00-0.12) K/uL Nucleated RBC % (auto) % Polychromasia PT (9.0-12.0) Seconds INR (0.9-1.1) APTT (21-31) Seconds PTT Ratio POC pH (7.35-7.45) POC pCO2 (35-46) mmHg POC pO2 (80-95) mmHg POC HCO3 (19-24) chelle/L POC Total CO2 (24-31) mmol/L POC Base Excess (-9-1.8) chelle/L POC ABG O2 Sat (90-95) % VBG pH (7.36-7.41) VBG pCO2 (38-50) mmHg VBG pO2 mmHg VBG HCO3 mmol/L VBG O2 Saturation % VBG Base Excess mEq/L POC Sodium (135-144) mmol/L Sodium (136-145) mmol/L POC Potassium (3.3-5.0) mmol/L Potassium (3.5-5.1) mmol/L Chloride (98-107) mmol/L Carbon Dioxide (21-32) mmol/L Anion Gap (3-11) BUN (6-23) mg/dl Creatinine (0.6-1.4) mg/dl Est Cr Clr Drug Dosing ml/min eGFR BUN/Creatinine Ratio (10-20) Glucose (70-99(Fasting)) mg/dl POC Glucose 182 H 169 H (70-99) mg/dl Fasting Glucose (70-99) mg/dl Lactate (0.4-2.0) mmol/L Calcium (8.6-10.3) mg/dl Phosphorus (2.5-4.9) mg/dl Magnesium (1.7-2.4) mg/dl Procalcitonin (0-0.5) ng/ml Nasal Screen MRSA (PCR) (Negative) Stl C. diff Tox B Gene (Neg) 12/19/24 12/19/24 12/19/24 Range/Units 16:46 11:46 10:07 WBC (4.8-10.8) K/ul RBC (4.70-6.10) M/uL Hgb (14.0-18.0) g/dl POC Hgb (14.0-18.0) g/dl Hct (42.0-52.0) % POC Hct (42-52) % MCV (80.0-100.0) fL MCH (25.0-34.0) pg MCHC (32.0-36.0) g/dL RDW Std Deviation (36.4-46.3) fL RDW Coeff of Maureen (11.5-14.5) % Plt Count (130-400) K/uL MPV (9.4-12.4) fL Immature Gran % (Auto) % Neut % (Auto) % Lymph % (Auto) % [place] % (Auto) % Eos % (Auto) % Baso % (Auto) % Neut # (Auto) (1.40-6.50) K/uL Lymph # (Auto) (1.20-3.40) K/uL [place] # (Auto) (0.11-0.59) K/uL Eos # (Auto) (0.00-0.50) K/uL Baso # (Auto) (0.00-0.20) K/uL Immature Gran # (Auto) (0.01-0.20) K/uL Absolute Nucleated RBC (0.00-0.12) K/uL Nucleated RBC % (auto) % Polychromasia PT 14.3 H (9.0-12.0) Seconds INR 1.4 H (0.9-1.1) APTT (21-31) Seconds PTT Ratio POC pH (7.35-7.45) POC pCO2 (35-46) mmHg POC pO2 (80-95) mmHg POC HCO3 (19-24) chelle/L POC Total CO2 (24-31) mmol/L POC Base Excess (-9-1.8) chelle/L POC ABG O2 Sat (90-95) % VBG pH (7.36-7.41) VBG pCO2 (38-50) mmHg VBG pO2 mmHg VBG HCO3 mmol/L VBG O2 Saturation % VBG Base Excess mEq/L POC Sodium (135-144) mmol/L Sodium 134 L (136-145) mmol/L POC Potassium (3.3-5.0) mmol/L Potassium 4.5 (3.5-5.1) mmol/L Chloride 95 L (98-107) mmol/L Carbon Dioxide 33 H (21-32) mmol/L Anion Gap 6 (3-11) BUN 37 H (6-23) mg/dl Creatinine 4.75 H* D (0.6-1.4) mg/dl Est Cr Clr Drug Dosing 14.1 ml/min eGFR 11.88 BUN/Creatinine Ratio 7.8 L (10-20) Glucose 189 H (70-99(Fasting)) mg/dl POC Glucose 130 H 175 H (70-99) mg/dl Fasting Glucose (70-99) mg/dl Lactate (0.4-2.0) mmol/L Calcium 9.6 (8.6-10.3) mg/dl Phosphorus 3.2 (2.5-4.9) mg/dl Magnesium 1.6 L (1.7-2.4) mg/dl Procalcitonin (0-0.5) ng/ml Nasal Screen MRSA (PCR) (Negative) Stl C. diff Tox B Gene (Neg) 12/19/24 12/18/24 12/18/24 Range/Units 07:59 20:06 16:56 WBC (4.8-10.8) K/ul RBC (4.70-6.10) M/uL Hgb (14.0-18.0) g/dl POC Hgb (14.0-18.0) g/dl Hct (42.0-52.0) % POC Hct (42-52) % MCV (80.0-100.0) fL MCH (25.0-34.0) pg MCHC (32.0-36.0) g/dL RDW Std Deviation (36.4-46.3) fL RDW Coeff of Maureen (11.5-14.5) % Plt Count (130-400) K/uL MPV (9.4-12.4) fL Immature Gran % (Auto) % Neut % (Auto) % Lymph % (Auto) % [place] % (Auto) % Eos % (Auto) % Baso % (Auto) % Neut # (Auto) (1.40-6.50) K/uL Lymph # (Auto) (1.20-3.40) K/uL [place] # (Auto) (0.11-0.59) K/uL Eos # (Auto) (0.00-0.50) K/uL Baso # (Auto) (0.00-0.20) K/uL Immature Gran # (Auto) (0.01-0.20) K/uL Absolute Nucleated RBC (0.00-0.12) K/uL Nucleated RBC % (auto) % Polychromasia PT (9.0-12.0) Seconds INR (0.9-1.1) APTT (21-31) Seconds PTT Ratio POC pH (7.35-7.45) POC pCO2 (35-46) mmHg POC pO2 (80-95) mmHg POC HCO3 (19-24) chelle/L POC Total CO2 (24-31) mmol/L POC Base Excess (-9-1.8) chelle/L POC ABG O2 Sat (90-95) % VBG pH (7.36-7.41) VBG pCO2 (38-50) mmHg VBG pO2 mmHg VBG HCO3 mmol/L VBG O2 Saturation % VBG Base Excess mEq/L POC Sodium (135-144) mmol/L Sodium (136-145) mmol/L POC Potassium (3.3-5.0) mmol/L Potassium (3.5-5.1) mmol/L Chloride (98-107) mmol/L Carbon Dioxide (21-32) mmol/L Anion Gap (3-11) BUN (6-23) mg/dl Creatinine (0.6-1.4) mg/dl Est Cr Clr Drug Dosing ml/min eGFR BUN/Creatinine Ratio (10-20) Glucose (70-99(Fasting)) mg/dl POC Glucose 158 H 210 H 181 H (70-99) mg/dl Fasting Glucose (70-99) mg/dl Lactate (0.4-2.0) mmol/L Calcium (8.6-10.3) mg/dl Phosphorus (2.5-4.9) mg/dl Magnesium (1.7-2.4) mg/dl Procalcitonin (0-0.5) ng/ml Nasal Screen MRSA (PCR) (Negative) Stl C. diff Tox B Gene (Neg) 12/18/24 12/18/24 12/18/24 Range/Units 12:05 08:01 07:32 WBC (4.8-10.8) K/ul RBC (4.70-6.10) M/uL Hgb (14.0-18.0) g/dl POC Hgb (14.0-18.0) g/dl Hct (42.0-52.0) % POC Hct (42-52) % MCV (80.0-100.0) fL MCH (25.0-34.0) pg MCHC (32.0-36.0) g/dL RDW Std Deviation (36.4-46.3) fL RDW Coeff of Maureen (11.5-14.5) % Plt Count (130-400) K/uL MPV (9.4-12.4) fL Immature Gran % (Auto) % Neut % (Auto) % Lymph % (Auto) % [place] % (Auto) % Eos % (Auto) % Baso % (Auto) % Neut # (Auto) (1.40-6.50) K/uL Lymph # (Auto) (1.20-3.40) K/uL [place] # (Auto) (0.11-0.59) K/uL Eos # (Auto) (0.00-0.50) K/uL Baso # (Auto) (0.00-0.20) K/uL Immature Gran # (Auto) (0.01-0.20) K/uL Absolute Nucleated RBC (0.00-0.12) K/uL Nucleated RBC % (auto) % Polychromasia PT (9.0-12.0) Seconds INR (0.9-1.1) APTT (21-31) Seconds PTT Ratio POC pH (7.35-7.45) POC pCO2 (35-46) mmHg POC pO2 (80-95) mmHg POC HCO3 (19-24) chelle/L POC Total CO2 (24-31) mmol/L POC Base Excess (-9-1.8) chelle/L POC ABG O2 Sat (90-95) % VBG pH (7.36-7.41) VBG pCO2 (38-50) mmHg VBG pO2 mmHg VBG HCO3 mmol/L VBG O2 Saturation % VBG Base Excess mEq/L POC Sodium (135-144) mmol/L Sodium 140 (136-145) mmol/L POC Potassium (3.3-5.0) mmol/L Potassium 4.1 D (3.5-5.1) mmol/L Chloride 101 (98-107) mmol/L Carbon Dioxide 32 (21-32) mmol/L Anion Gap 7 (3-11) BUN 23 (6-23) mg/dl Creatinine 4.08 H D (0.6-1.4) mg/dl Est Cr Clr Drug Dosing 16.4 ml/min eGFR 14.25 BUN/Creatinine Ratio 5.6 L (10-20) Glucose 198 H (70-99(Fasting)) mg/dl POC Glucose 116 H 198 H (70-99) mg/dl Fasting Glucose (70-99) mg/dl Lactate (0.4-2.0) mmol/L Calcium 9.1 (8.6-10.3) mg/dl Phosphorus 2.6 (2.5-4.9) mg/dl Magnesium 1.7 (1.7-2.4) mg/dl Procalcitonin (0-0.5) ng/ml Nasal Screen MRSA (PCR) (Negative) Stl C. diff Tox B Gene (Neg) 12/17/24 12/17/24 12/17/24 Range/Units 19:38 16:43 11:33 WBC (4.8-10.8) K/ul RBC (4.70-6.10) M/uL Hgb (14.0-18.0) g/dl POC Hgb (14.0-18.0) g/dl Hct (42.0-52.0) % POC Hct (42-52) % MCV (80.0-100.0) fL MCH (25.0-34.0) pg MCHC (32.0-36.0) g/dL RDW Std Deviation (36.4-46.3) fL RDW Coeff of Maureen (11.5-14.5) % Plt Count (130-400) K/uL MPV (9.4-12.4) fL Immature Gran % (Auto) % Neut % (Auto) % Lymph % (Auto) % [place] % (Auto) % Eos % (Auto) % Baso % (Auto) % Neut # (Auto) (1.40-6.50) K/uL Lymph # (Auto) (1.20-3.40) K/uL [place] # (Auto) (0.11-0.59) K/uL Eos # (Auto) (0.00-0.50) K/uL Baso # (Auto) (0.00-0.20) K/uL Immature Gran # (Auto) (0.01-0.20) K/uL Absolute Nucleated RBC (0.00-0.12) K/uL Nucleated RBC % (auto) % Polychromasia PT (9.0-12.0) Seconds INR (0.9-1.1) APTT (21-31) Seconds PTT Ratio POC pH (7.35-7.45) POC pCO2 (35-46) mmHg POC pO2 (80-95) mmHg POC HCO3 (19-24) chelle/L POC Total CO2 (24-31) mmol/L POC Base Excess (-9-1.8) chelle/L POC ABG O2 Sat (90-95) % VBG pH (7.36-7.41) VBG pCO2 (38-50) mmHg VBG pO2 mmHg VBG HCO3 mmol/L VBG O2 Saturation % VBG Base Excess mEq/L POC Sodium (135-144) mmol/L Sodium (136-145) mmol/L POC Potassium (3.3-5.0) mmol/L Potassium (3.5-5.1) mmol/L Chloride (98-107) mmol/L Carbon Dioxide (21-32) mmol/L Anion Gap (3-11) BUN (6-23) mg/dl Creatinine (0.6-1.4) mg/dl Est Cr Clr Drug Dosing ml/min eGFR BUN/Creatinine Ratio (10-20) Glucose (70-99(Fasting)) mg/dl POC Glucose 249 H 186 H 117 H (70-99) mg/dl Fasting Glucose (70-99) mg/dl Lactate (0.4-2.0) mmol/L Calcium (8.6-10.3) mg/dl Phosphorus (2.5-4.9) mg/dl Magnesium (1.7-2.4) mg/dl Procalcitonin (0-0.5) ng/ml Nasal Screen MRSA (PCR) (Negative) Stl C. diff Tox B Gene (Neg) 12/17/24 Range/Units 08:26 WBC 9.63 (4.8-10.8) K/ul RBC 3.51 L (4.70-6.10) M/uL Hgb 10.3 L (14.0-18.0) g/dl POC Hgb (14.0-18.0) g/dl Hct 31.7 L (42.0-52.0) % POC Hct (42-52) % MCV 90.3 (80.0-100.0) fL MCH 29.3 (25.0-34.0) pg MCHC 32.5 (32.0-36.0) g/dL RDW Std Deviation 58.1 H (36.4-46.3) fL RDW Coeff of Maureen 17.9 H (11.5-14.5) % Plt Count 240 (130-400) K/uL MPV 10.9 (9.4-12.4) fL Immature Gran % (Auto) % Neut % (Auto) % Lymph % (Auto) % [place] % (Auto) % Eos % (Auto) % Baso % (Auto) % Neut # (Auto) (1.40-6.50) K/uL Lymph # (Auto) (1.20-3.40) K/uL [place] # (Auto) (0.11-0.59) K/uL Eos # (Auto) (0.00-0.50) K/uL Baso # (Auto) (0.00-0.20) K/uL Immature Gran # (Auto) (0.01-0.20) K/uL Absolute Nucleated RBC (0.00-0.12) K/uL Nucleated RBC % (auto) % Polychromasia PT (9.0-12.0) Seconds INR (0.9-1.1) APTT (21-31) Seconds PTT Ratio POC pH (7.35-7.45) POC pCO2 (35-46) mmHg POC pO2 (80-95) mmHg POC HCO3 (19-24) chelle/L POC Total CO2 (24-31) mmol/L POC Base Excess (-9-1.8) chelle/L POC ABG O2 Sat (90-95) % VBG pH (7.36-7.41) VBG pCO2 (38-50) mmHg VBG pO2 mmHg VBG HCO3 mmol/L VBG O2 Saturation % VBG Base Excess mEq/L POC Sodium (135-144) mmol/L Sodium 140 (136-145) mmol/L POC Potassium (3.3-5.0) mmol/L Potassium 3.3 L (3.5-5.1) mmol/L Chloride 103 (98-107) mmol/L Carbon Dioxide 32 (21-32) mmol/L Anion Gap 5 (3-11) BUN 21 (6-23) mg/dl Creatinine 3.18 H D (0.6-1.4) mg/dl Est Cr Clr Drug Dosing 21.0 ml/min eGFR 19.22 BUN/Creatinine Ratio 6.6 L (10-20) Glucose 210 H (70-99(Fasting)) mg/dl POC Glucose (70-99) mg/dl Fasting Glucose (70-99) mg/dl Lactate (0.4-2.0) mmol/L Calcium 8.7 (8.6-10.3) mg/dl Phosphorus (2.5-4.9) mg/dl Magnesium 1.8 (1.7-2.4) mg/dl Procalcitonin (0-0.5) ng/ml Nasal Screen MRSA (PCR) (Negative) Stl C. diff Tox B Gene (Neg) Diagnostic Findings Chest X-Ray 11/18/24 23:56 EXAM: XR chest 1V portable CLINICAL HISTORY: cough, covid TECHNIQUE: Radiograph of chest was acquired. COMPARISON: none FINDINGS: The lungs are clear and well-expanded with no pulmonary infiltrate or pleural effusion. The cardiomediastinal silhouette is within normal limits. No acute osseous abnormality. IMPRESSION: 1. No acute cardiopulmonary disease. Electronically signed by Omkar Dye 11-19-2024 02:35 AM Pelvis X-Ray 11/18/24 23:58 EXAM: XR pelvis 1-2V routine CLINICAL HISTORY: trauma TECHNIQUE: Radiograph of pelvis was acquired. COMPARISON: none FINDINGS: No acute fracture or dislocation. The soft tissues are unremarkable. Visualized joint spaces are well maintained. IMPRESSION: 1. No acute osseous or soft tissue abnormality. Electronically signed by Omkar Dye 11-19-2024 02:[address] 11/19/24 00:13 EXAM: CT cervical spine wo con CLINICAL HISTORY: trauma TECHNIQUE: Computed tomography of the cervical spine performed without intravenous contrast. Contiguous axial images were obtained from the skull base to T2, with sagittal and coronal reformatted images reconstructed from the axial data. CT scan was performed according to ALARA (as low as reasonably achievable). COMPARISON: none FINDINGS: Loss of cervical lordotic curvature. Cervical vertebral bodies are normal in height and alignment, with no evidence of fracture or subluxation. Lateral masses of C1 are symmetrical, and the dens is intact. Prevertebral soft tissues are not widened. Small marginal osteophytes at C5 and C6. The remaining suprahyoid and infrahyoid soft tissues in the neck are unremarkable. No disc bulge, mass effect on the cord or neuroforaminal narrowing. Thyroid gland appears unremarkable. IMPRESSION: 1.No acute fracture or subluxation in the cervical spine. Electronically signed by Omkar Dye 11-19-2024 02:[address] 11/19/24 00:13 EXAM: CT head/brain wo con CLINICAL HISTORY: trauma TECHNIQUE: Multiple axial images are obtained from the skull base to the vertex without contrast. CT scan was performed according to ALARA (as low as reasonably achievable). COMPARISON: none FINDINGS: There is cerebral atrophy. Chronic lacunar infarct in right thalamus. No evidence of space occupying lesion, hemorrhage, edema, mass effect, midline shift, extra axial collection, or hydrocephalus is noted. Basal cisterns are symmetric and normal in size and configuration. There are scattered periventricular hypodensities as can be seen with chronic microvascular ischemic changes. The pinto-white matter differentiation is preserved. Visualized paranasal sinuses and mastoid air cells are well aerated. Orbital contents are within normal limits. Bony structures are intact. IMPRESSION: 1. No evidence of acute intracranial abnormality is demonstrated. 2. Chronic microvascular ischemic changes. Chronic lacunar infarct in right thalamus. 3. Cerebral atrophy. Electronically signed by Omkar Dye 11-19-2024 02:[address] 11/19/24 12:07 CT chest diagnostic wo/w con CLINICAL HISTORY: left chest pain, ro abscess/infection COMPARISON STUDY: 11/13/2024 FINDINGS: There is mild emphysema. There are interval scattered reticular and patchy groundglass opacities at the mid and lower lungs consistent with early pneumonia. No other consolidation or pleural effusion. No pneumothorax. No enlarged adenopathy. No pericardial effusion. There are diffuse coronary artery and aortic calcifications. No thoracic aortic dissection or aneurysm. No pulmonary embolism. Stable elevation of the right hemidiaphragm. No acute osseous findings. IMPRESSION: 1. Interval early bilateral pneumonia. 2. No other acute findings seen. Otherwise as described. ACT 112: Negative or not required by law. Electronically signed by: Jose Ramon Lawrence M.D. 11/19/2024 2:22 PM Chest X-Ray 11/20/24 22:06 Exam(s): XR CXR 1 VIEW EXAM: XR Chest, 1 View CLINICAL HISTORY: Reason for exam: wheezing. TECHNIQUE: Frontal view of the chest. COMPARISON: 11/19/2024. FINDINGS: There is a poor inspiratory effort. Lungs: There are mild patchy bilateral infiltrates.. Pleural space: No pleural effusion is seen. No pneumothorax. Heart: The heart appears top normal in size.. Mediastinum: There is uncoiling of thoracic aorta.. Bones/joints: There are degenerative changes in the spine.. IMPRESSION: Limited exam. There are mild patchy bilateral infiltrates. Electronically signed by: Montana Sanchez MD 11/21/24 01:01 AM Chest X-Ray 11/22/24 11:58 XR chest 1V portable CLINICAL HISTORY: increasing oxygen requirement COMPARISON STUDY: 11/20/2024 FINDINGS: Stable mild cardiomegaly with mild pulmonary vascular congestion. Inspiration is shallow. There is increased stranding opacity in the lung bases. No pleural effusion or pneumothorax seen. IMPRESSION: Increased atelectasis versus pneumonia in the lung bases. ACT 112: Negative or not required by law. Electronically signed by: Jose Ramon Lawrence M.D. 11/22/2024 12:23 PM Chest X-Ray 11/23/24 10:06 XR chest 1V portable CLINICAL HISTORY: increasing oxygen requirment COMPARISON STUDY: 11/22/2024 FINDINGS: Stable cardiomegaly without pulmonary vascular congestion. Diffuse interstitial and faint patchy pulmonary opacities most prominent at the left lung base are stable. No pleural effusion or pneumothorax. IMPRESSION: Stable exam. ACT 112: Negative or not required by law. Electronically signed by: Jose Ramon Lawrence M.D. 11/23/2024 10:36 AM Chest X-Ray 11/24/24 09:43 XR chest 1V portable CLINICAL HISTORY: f/u COMPARISON STUDY: 11/23/2024 FINDINGS: Heart size and pulmonary vasculature are normal. There is mild stranding opacity in the lung bases, improved. No pneumothorax. IMPRESSION: Mild stranding opacity in the lung bases, improved. ACT 112: Negative or not required by law. Electronically signed by: Jose Ramon Lawrence M.D. 11/24/2024 10:13 AM Chest X-Ray 11/26/24 07:00 EXAM: XR chest 1V portable CLINICAL HISTORY: Pneumonia TECHNIQUE: An X-ray image of the chest is obtained in AP projection. COMPARISON: 11/24/2024. FINDINGS: Pulmonary Parenchyma: Reduced volume of both lung willis likely expiratory study. Mild progression of previously demonstrated bilateral lower zonal mainly linear and more left patchy opacities. Redemonstrated bilateral diffuse more central prominent bronchial markings with peribronchial thickening. Redemonstrated obliterated right costophrenic recess by likely mild effusion, left side is clear. Heart and Mediastinum: Heart size cannot be properly assessed. Bony Thorax: Bony thorax appears intact without fractures or deformities. Soft Tissues: Soft tissues overlying the chest wall are unremarkable. IMPRESSION: 1. Mild progression of previously demonstrated bilateral lower zonal mainly linear and more left patchy opacities, can be pneumonic opacities. 2. Otherwise, no interval changes. Electronically signed by Torie Merino 11-26-2024 08:08 AM Chest X-Ray 11/27/24 08:01 XR chest 1V portable HISTORY: 79 years-old Male COVID acute shortness of breath COMPARISON: 11/26/2024 TECHNIQUE: AP view of the chest FINDINGS: Cardiac silhouette is enlarged. Atherosclerosis of the aorta. Pulmonary vascular congestion with interstitial coarsening redemonstrated, stable to mildly improved. Mild ill-defined linear bibasilar consolidation. Pulmonary emphysema. Possible trace pleural effusions. No pneumothorax. IMPRESSION: Cardiomegaly with stable to mildly improved appearance of the mixed interstitial and alveolar opacities. ACT 112: Negative or not required by law. The above report was generated using voice recognition software. It may contain grammatical, syntax or spelling errors. Electronically signed by: Arturo Osorio M.D. 11/27/2024 8:40 AM Chest X-Ray 11/29/24 07:00 EXAM: XR chest 1V portable CLINICAL HISTORY: Covid. TECHNIQUE: X-ray image of the chest obtained in 1 frontal projection. COMPARISON: Prior X-ray dated 11/27/2024 for comparison. FINDINGS: Pulmonary Parenchyma: Unchanged prominent bilateral parahilar markings and atelectatic bands in basal lung zones. Unchanged obscuration of right CP angle likely pleural effusion. Heart and Mediastinum: Heart size and shape are normal. No mediastinal widening or masses. No hilar or mediastinal lymphadenopathy. Bony Thorax: The bony thorax appears intact without fractures or deformities. Soft Tissues: Soft tissues overlying the chest wall are unremarkable. IMPRESSION: 1. Unchanged prominent bilateral parahilar markings and atelectatic bands in basal lung zones. 2. Unchanged obscuration of right CP angle likely pleural effusion. Electronically signed by Torie Merino 11-29-2024 08:13 AM Chest X-Ray 12/01/24 07:00 EXAM: XR chest 1V portable CLINICAL HISTORY: COVID. TECHNIQUE: An X-ray image of the chest is obtained in PA projection. COMPARISON: CR dated 11/29/2024. FINDINGS: Pulmonary Parenchyma: Stable faint reticular densities were noted at both lower lung zones. Blunting of right costophrenic angle suggests a small effusion decreased in amount since the prior study. Lungs are clear bilaterally. No evidence of consolidation, collapse, or focal opacities. No pulmonary nodules are identified. Heart and Mediastinum: Heart size and shape are normal. No mediastinal widening or masses. No hilar or mediastinal lymphadenopathy. Bony Thorax: The bony thorax appears intact without fractures or deformities. Soft Tissues: Soft tissues overlying the chest wall are unremarkable. IMPRESSION: 1. Stable faint reticular densities were noted at both lower lung zones. 2. Blunting of the right costophrenic angle suggests a small effusion decreased in amount since the prior study. 3. No other interval changes. Electronically signed by Torie Merino 12-01-2024 07:[address] 12/07/24 19:56 Exam(s): CT HEAD Without Contrast EXAM: CT Head Without Intravenous Contrast CLINICAL HISTORY: Reason for exam: AMS?. TECHNIQUE: Axial computed tomography images of the head/brain without intravenous contrast. CTDI is 64.34 mGy and DLP is 1098.96 mGy-cm. Automated exposure control was utilized for the study. A dose lowering technique was utilized adhering to the principles of ALARA. COMPARISON: 11/19/2024 FINDINGS: Artifacts: Images are slightly degraded by motion artifact. Brain: No hemorrhage, extra-axial fluid collection, mass effect, or edema. Ventricles: Unremarkable. Bones/joints: Unremarkable. No fracture. Soft tissues: Unremarkable. Sinuses: Trace fluid within the maxillary sinuses. Mastoid air cells: Unremarkable as visualized. IMPRESSION: 1. No acute intracranial abnormality. Electronically signed by: Elmer Dixon MD 12/07/24 21:34 PM Chest X-Ray 12/09/24 15:53 EXAM: Radiograph of the Chest 1 View INDICATION: Hypoxia TECHNIQUE: Frontal view of the chest. COMPARISON: 11/29/2024 FINDINGS: Lungs and pleural spaces: Increasing confluent bilateral groundglass and patchy infiltrates relatively sparing the left upper lobe. No pleural effusion or pneumothorax. Heart: Stable cardiac shadow accentuated by technique. Mediastinum: Normal contour. Bones/joints: No fracture, erosion or dislocation. Soft tissues: No abnormality noted. No radiopaque foreign body noted. Vasculature: Stable ectatic aorta. Tubes, lines and devices: Right internal jugular central venous catheter tip in the distal superior vena cava. Upper abdomen: No abnormality noted. IMPRESSION: 1. Increasing confluent bilateral groundglass and patchy infiltrates relatively sparing the left upper lobe. 2. Lines and tubes as above. ACT 112: Negative or not required by law. Electronically signed by Sheila Rodriguez 12-09-2024 4:18 PM Chest X-Ray 12/10/24 10:47 XR chest 1V portable CLINICAL HISTORY: Hypoxia. COMPARISON STUDY: Chest radiograph December 09, 2024. Chest CT November 13, 2024. FINDINGS: Right internal jugular dual lumen catheter is in place. Cardiomediastinal silhouette is stable. There is no pneumothorax. No definite pleural effusion. Bilateral airspace opacities have progressed. There is an acute appearing mildly displaced anterolateral left ninth rib fracture. IMPRESSION: 1. Progression of bilateral airspace opacities which favor pneumonia. Pulmonary edema could appear similar although is considered less likely. 2. Acute appearing mildly displaced left ninth rib fracture. No pneumothorax. ACT 112: Negative or not required by law. Electronically signed by: Yoandy Gonzalez M.D. 12/10/2024 12:14 PM Venous Doppler Study 12/10/24 11:45 Exam(s): US VENOUS BILATERAL LOWER EXTREMITIES EXAM: US Duplex Bilateral Lower Extremities Veins CLINICAL HISTORY: Reason for exam: r/o dvt. TECHNIQUE: Real-time duplex ultrasound scan of the bilateral lower extremity veins integrating B-mode two-dimensional vascular structure, Doppler spectral analysis, color flow Doppler imaging and compression. COMPARISON: 10/15/2023 FINDINGS: Right deep veins: Unremarkable. The visualized deep veins of the right lower extremity are compressible with color flow. No visualized thrombus. Right superficial veins: Unremarkable. Left deep veins: Unremarkable. The visualized deep veins of the left lower extremity are compressible with color flow. No visualized thrombus. Left superficial veins: Unremarkable. Soft tissues: No acute findings. IMPRESSION: No DVT within the bilateral lower extremities. Electronically signed by: Elmer Dixon MD 12/10/24 22:21 PM Chest CTA 12/10/24 13:12 CT angio chest PE protocol CT DOSE: 783.48 mGy.cm HISTORY: PE. Shortness of breath; history of PE TECHNIQUE: Multiple CTA images of the chest were obtained after the intravenous administration of 89 ml Optiray. Coronal and sagittal MIPS were obtained from the axial data set and were submitted for review. All measurements were obtained according to NASCET criteria. A dose lowering technique was utilized adhering to the principles of ALARA. COMPARISON STUDY: 10/13/2023 FINDINGS: There is no evidence of acute pulmonary embolism. There are multiple bilateral foci of airspace consolidation involving all lobes of both lungs. There is underlying emphysema. There are trace bilateral pleural effusions. The upper airway is unremarkable. There is no aortic aneurysm. There is extensive coronary artery calcification. There is no pericardial effusion. IMPRESSION: No evidence of acute pulmonary embolism. Widespread, multifocal airspace opacities consistent with infectious or inflammatory process. ACT 112: Negative or not required by law. The above report was generated using voice recognition software. It may contain grammatical, syntax or spelling errors. Electronically signed by: Lakisha oDyle M.D. 12/10/2024 3:07 PM Chest X-Ray 12/11/24 14:51 INDICATION: Shortness of breath TECHNIQUE: Frontal radiograph of the chest. COMPARISON: Radiograph from 2 days ago FINDINGS: Cardiomegaly. Low inspiratory depth. Multifocal interstitial opacities appear unchanged. No pneumothorax. Small pleural effusions. No acute fracture. Right-sided dialysis catheter again noted. IMPRESSION: No significant interval change allowing for differences in technique. Electronically signed by Charles Bailey 12-11-2024 3:10 PM KUB X-Ray 12/14/24 11:13 EXAM: XR KUB/Abdomen 1 view CLINICAL HISTORY: eval for fluid, for pD cath placement. TECHNIQUE: X-ray image of the abdomen obtained in 1 frontal view. COMPARISON: Prior CT dated 10/16/2024 for comparison. FINDINGS: Gas Pattern: Gas pattern within the abdomen is normal. No evidence of bowel obstruction or distention. Soft Tissues: Soft tissues of the abdomen appear normal without evidence of masses. Liver, spleen, and kidneys are of normal size and position. Few foci of calcifications in right paraspinal region at L1 level and phleboliths in the pelvis. Atherosclerotic wall calcifications in bilateral iliac vessels. Spondylotic changes in lumbar spine. Tube artifacts in lower abdomen and pelvis. No significant interval changes. IMPRESSION: 1. No acute abnormalities were identified. 2. Few foci of calcifications in the right paraspinal region at the L1 level and phleboliths in the pelvis. 3. Atherosclerotic wall calcifications in bilateral iliac vessels. 4. Spondylotic changes in lumbar spine. 5. Tube artifacts in lower abdomen and pelvis. 6. No significant interval changes. Electronically signed by Torie Merino 12-14-2024 08:17 AM Chest X-Ray 12/16/24 07:50 XR chest 1V portable CLINICAL HISTORY: hypoxia COMPARISON STUDY: 12/11/2024 FINDINGS: Stable right dialysis catheter. Stable cardiomegaly with pulmonary vascular congestion. There is increased diffuse patchy pulmonary opacity. No pleural effusion or pneumothorax. IMPRESSION: Increased diffuse bilateral pneumonia. ACT 112: Negative or not required by law. Electronically signed by: Jose Ramon Lawrence M.D. 12/16/2024 8:28 AM Chest X-Ray 12/20/24 07:00 EXAM: XR chest 1V portable CLINICAL HISTORY: hypoxia TECHNIQUE: An X-ray image of the chest is obtained in 1 AP projection. COMPARISON: 12/16/2024. FINDINGS: Pulmonary Parenchyma: Regression of the faint reticular densities were noted at both middle and lower lung zones. Currently noted bilateral middle and lower lung zones scattered consolidative patches. Blunting of both costophrenic angle suggests a small effusion stable in amount since the prior study. Heart and Mediastinum: Heart size and shape are normal. No mediastinal widening or masses. No hilar or mediastinal lymphadenopathy. Bony Thorax: The bony thorax appears intact without fractures or deformities. Soft Tissues: Soft tissues overlying the chest wall are unremarkable IMPRESSION: 1. Regression of the faint reticular densities were noted at both middle and lower lung zones. 2. Currently noted bilateral middle and lower lung zones scattered consolidative patches (new findings); likely inflammatory. 3. Blunting of both costophrenic angle suggests a small effusion stable in amount since the prior study. Electronically signed by Torie Merino 12-20-2024 07:38 AM Chest X-Ray 12/22/24 22:35 Exam(s): XR CXR 1 VIEW EXAM: XR Chest, 1 View CLINICAL HISTORY: Reason for exam: low o2. TECHNIQUE: Frontal view of the chest. COMPARISON: XR Chest dated 12/20/2024 FINDINGS: See Impression. IMPRESSION: 1. Patchy bilateral airspace disease similar to the prior. 2. Small right pleural effusion. 3. Stable right IJ catheter. Electronically signed by: Mello Dickinson M.D. 12/23/24 00:48 AM Chest X-Ray 12/23/24 00:28 EXAM: XR chest 1V portable CLINICAL HISTORY: low O2, aspiration TECHNIQUE: An X-ray image of the chest is obtained in AP projection. COMPARISON: 12/20/2024. FINDINGS: Pulmonary Parenchyma: Mild interval improvement in bilateral mid and lower zone consolidations, with residual airspace changes and reticular thickening. Stable patchy airspace changes in the right upper zone. Mild interval increase in right-sided pleural effusion. Stable minimal left-sided pleural effusion. Heart and Mediastinum: Heart size and shape are normal. No hilar or mediastinal lymphadenopathy. Bony Thorax: Bony thorax appears intact without fractures or deformities. Soft Tissues: Soft tissues overlying the chest wall are unremarkable. A Broviac line is seen in situ with its distal tip at the cavoatrial junction, unchanged. Multiple overlying tubing artifacts are seen. IMPRESSION: 1. Mild interval improvement in bilateral mid and lower zone consolidations, with residual airspace changes and reticular thickening. 2. Unchanged patchy airspace changes in the right upper zone. 3. Mild interval increase in right-sided pleural effusion. 4. Unchanged minimal left-sided pleural effusion. 5. A Broviac line is seen in situ with its distal tip at the cavoatrial junction(unchanged). Electronically signed by Torie Merino 12-23-2024 02:29 AM PG Care Time/CCT Total # of Minutes Spent Total Time Spent with Patient: Total time spent is greater than 50% in coordination of care (as documented) at patient's floor/unit and/or counseling patient: I spent 80 minutes overall addressing this case: 15 min in medical data review/discussion with referring provider(s) and/or preparation for the visit 20 min in direct interaction with the patient/exam 25 min in Advance Care Planning/Goals of Care discussions as detailed above in note (must be >16min) 10 min in subsequent review and synthesis of assessment and plan 10 min communicating with other providers regarding the patient's case: nursing, care mgt, primary team Advanced Care Planning 76090 Advanced Care Planning 30 [place] [address] SUB INP/OBS CARE 3/50MIN (25 - SIGNIFICANT, SEPARATELY IDENTIFIABLE ) Patient Type Established Diagnoses Dyspnea and respiratory abnormalities R06.00; R06.89 Intermittent confusion R41.0 Advanced care planning/counseling discussion Z71.89 Counseling regarding goals of care Z71.89 Palliative care by specialist Z51.5 Additional Codes Advanced Care Planning - 74206 Advanced Care Planning 30 Min: 04187 Advanced Care Planning 30 Min ([id number]) Comment [id number], [id number]
[2024-12-24 08:54] LABS: INR 4.3 (0.9-1.1); Prothrombin Time 41.3 Seconds (9.0-12.0)
--- NOTE | 2024-12-24 12:02 | Cardiology Progress Note ---
Date of Service December 24, 2024 Assessment & Plan (1) Hypertrophic cardiomyopathy: (2) Atrial flutter, paroxysmal: (3) Chronic hypotension: (4) Acute hypoxic respiratory failure: (5) ARDS (adult respiratory distress syndrome): (6) End stage renal disease: (7) Cirrhosis: Plan 79-year-old male with hypertrophic cardiomyopathy and recurrent paroxysmal atrial fibrillation/flutter 12/23/2024. Unable to tolerate hemodialysis due to chronic hypotension and volume depletion. Hemodynamic compromise noted when patient becomes hypotensive, tachycardic, and/or volume depleted due to hypertrophic cardiomyopathy and LVOT obstruction. Worsening hypoxia secondary to COPD and fibrotic lung disease. Pneumonia versus aspiration pneumonitis noted. Poor prognosis. I participated in multidisciplinary meeting with pulmonary medicine, nephrology, palliative care, and general internal medicine. Cardiovascular findings and recommendations as well as overall prognosis discussed at length with both the patient and his son. We are awaiting decision regarding ongoing dialysis treatments. Currently patient is scheduled for dialysis later today. He will continue IV amiodarone for the time being as he is n.p.o. due to need for high flow oxygen. All questions answered satisfaction of both the patient and his son. Cardiology will sign off for the weekend. Please call with additional concerns/questions. Rick Tan DO, [facility] Admission and Anticipated Discharge Date Admission Date: November 19, 2024 Subjective 79-year-old male seen and examined at the bedside. No recurrent atrial fibrillation overnight. IV amiodarone infusing. Poor historian. Requesting water although currently n.p.o. due to need for high flow oxygen supplementation. Multidisciplinary discussion scheduled today to determine long-term plan of care. Review of Systems Review of Systems: All systems reviewed & are unremarkable except as noted in Subjective Physical Exam Constitutional: + ill appearing; no acute distress Respiratory: normal respiratory effort and + tachypneic; no respiratory distress Auscultation: + crackles (B/L) and + rales (B/L); no wheezes Cardiovascular: Rate/Rhythm: regular rate and regular rhythm Heart Sounds: normal S1 and normal S2; no murmur Vessels: radial pulses present; no JVD Extremities: no edema Gastrointestinal (Abdomen): Inspection/Auscultation: normal bowel sounds; abdomen not distended Percussion/Palpation: abdomen soft; abdomen nontender, no guarding and abdomen not rigid Neurologic: CN's II-XI intact bilaterally and moves all extremities; no focal motor deficits Results & Data Vital Signs (Past 12 Hours) Vital Signs Temp Pulse Pulse Pulse Pulse Resp BP 12/24/24 11:40 85 23 12/24/24 08:19 36.3 C L 81 13 12/24/24 08:00 12/24/24 07:52 80 18 12/24/24 07:00 83 12/24/24 04:00 37.2 C 81 81 24 12/24/24 03:41 80 18 12/24/24 02:18 86 13 12/24/24 01:30 86 26 H 12/24/24 01:06 87 34 H 12/24/24 00:48 85 33 H 12/24/24 00:21 84 27 H 12/24/24 00:00 101/60 BP Pulse Ox O2 Del Method O2 Flow Rate FiO2 12/24/24 11:40 95 High Flow Nasal Cannula 30 40 12/24/24 08:19 114/63 93 High Flow Nasal Cannula 30 50 12/24/24 08:00 High Flow Nasal Cannula 30 50 12/24/24 07:52 96 High Flow Nasal Cannula 30 45 12/24/24 07:00 12/24/24 04:00 111/71 94 High Flow Nasal Cannula 30 50 12/24/24 03:41 95 High Flow Nasal Cannula 30 50 12/24/24 02:18 93 High Flow Nasal Cannula 30 50 12/24/24 01:30 91 12/24/24 01:06 91 12/24/24 00:48 90 12/24/24 00:21 94 High Flow Nasal Cannula 30 50 12/24/24 00:00 Laboratory Results Coagulation 12/24/24 Range/Units 08:06 PT 41.3 H (9.0-12.0) Seconds CBC 12/24/24 Range/Units 08:06 WBC 16.40 H (4.8-10.8) K/ul RBC 3.11 L (4.70-6.10) M/uL Hgb 8.9 L (14.0-18.0) g/dl Hct 26.3 L (42.0-52.0) % Plt Count 446 H (130-400) K/uL Comprehensive Metabolic Panel 12/24/24 Range/Units 08:06 Sodium 140 (136-145) mmol/L Potassium 4.6 (3.5-5.1) mmol/L Chloride 95 L (98-107) mmol/L Carbon Dioxide 29 (21-32) mmol/L BUN 75 H (6-23) mg/dl Creatinine 7.44 H* D (0.6-1.4) mg/dl Glucose 127 H (70-99(Fasting)) mg/dl Calcium 8.7 (8.6-10.3) mg/dl Intake and Output 12/23/24 12/24/24 12/24/24 22:59 06:59 14:59 Intake Total 300 / 600 200 / 600 100 / 100 Output Total 0 / 0 Balance 300 / 600 200 / 600 100 / 100 Intake: IV 300 / 600 200 / 600 100 / 100 Amiodarone / D5w 360 mg In 200 200 / 400 200 / 400 ml @ 0.5 MG/MIN 16.667 mls/hr IV .Q12H [facility] Rx#:[id number] Piperacillin/Tazobactam 4.5 gm 100 / 200 100 / 100 In 100 ml @ 25 mls/hr IV Q12H [facility] Rx#:[id number] Oral 0 / 0 0 / 0 Output: Urine 0 / 0 Other: Weight 75 kg Weight Measurement Method Built in [facility] (7) Cirrhosis Hepatic cirrhosis type: unspecified hepatic cirrhosis Ascites presence: with ascites Qualified Code(s): K74.60 - Unspecified cirrhosis of liver; R18.8 - Other ascites
--- NOTE | 2024-12-24 13:41 | Nephrology Progress Note ---
Date of Service December 24, 2024 Assessment & Plan Admission and Anticipated Discharge Date Admission Date: November 19, 2024 Subjective Assessment & Plan (1) ESRD (end stage renal disease) on dialysis: Plan: ESRD currently on PD > switched to this b/c needs better oxygenation, needs lower 02 needs so can do HD, with known LVOT obstruction, making fluid removal VERY touchy w/ this modality. tolerates PD though has in past 48 hrs now desat'd even w/ this tx. Desat'd again end of tx 12/15 >>pulm recommends aggressive UF>> but will tonight go easy on UF b/c of concerns about worse 02 status >> 6 x 1.5% bags this evening re-eval in a few days if we can change back to HD w/ gentle /conservative fluid removal goals and running on cold temp Patient is dying and there is nothing that can reverse this course. This is terminal. There is no hope for eventual improvement---Fibrotic phase of ARDS+ LVOT. I dont see him ever getting to the position where he would not have intermittent desat--he will be back as soon as that happens if we discharge him anywhere. even now on Bipap UF makes no Difference with his o2 need as this is more ARDS related. Will remove Tunnelled HD cath as Cannot tolerate HD. he Cannot even tolerate PD consistently !!! We had a family meeting with patient, his son, hospitalist, Palliative Medicine, Cardiology, pulmonary/Critical Care as well as myself--- all present at the same time After extensive discussion patient is now do not resuscitate and do-not- intubate. patient is seriously thinking whether to continue dialysis or not. He will give us his decision later today and it will be on a day-to-day basis. if he decides to do dialysis today it will be a shortened peritoneal dialysis with no ultrafiltration. I did make the patient and his son very clear that given his terminal pulmonary issues needing very high oxygen it is impossible to discharge him anywhere. total time spent is 61 minutes including multidisciplinary family meeting. Subjective Today seems somewhat more alert and interactive than yesterday. on quite variable 02 from 6-10 L. Currently on BIpap. No pain, has Chronic Sig sob. No PO intake Physical Exam Constitutional: well developed, well nourished, + frail appearing, cooperative and + in distress (mild w/ breathing ); no acute distress and no altered mental status Eyes: EOM intact bilaterally ENMT: Mouth: + dry oral mucous membranes Respiratory: normal respiratory effort, able to speak in complete sentences and + tachypneic; no labored breathing and no cough Auscultation: + diminished lung sounds (extremely) and + crackles Cardiovascular: Rate/Rhythm: regular rate and regular rhythm Heart Sounds: + murmur Extremities: no edema Gastrointestinal (Abdomen): Inspection/Auscultation: normal bowel sounds and + abdominal surgical drain present (PD catheter) Percussion/Palpation: abdomen soft; abdomen nontender Musculoskeletal: Extremities: strength 5/5 throughout Skin: no rashes, warm and dry Psychiatric: Orientation: alert and oriented x 3 Results & Data Vital Signs (Past 12 Hours) Vital Signs Temp Pulse Pulse Pulse Pulse Resp BP 12/24/24 11:40 85 23 12/24/24 08:19 36.3 C L 81 13 114/63 12/24/24 08:00 12/24/24 07:52 80 18 12/24/24 07:00 83 12/24/24 04:00 37.2 C 81 81 24 111/71 12/24/24 03:41 80 18 12/24/24 02:18 86 13 Pulse Ox O2 Del Method O2 Flow Rate FiO2 12/24/24 11:40 95 High Flow Nasal Cannula 30 40 12/24/24 08:19 93 High Flow Nasal Cannula 30 50 12/24/24 08:00 High Flow Nasal Cannula 30 50 12/24/24 07:52 96 High Flow Nasal Cannula 30 45 12/24/24 07:00 12/24/24 04:00 94 High Flow Nasal Cannula 30 50 12/24/24 03:41 95 High Flow Nasal Cannula 30 50 12/24/24 02:18 93 High Flow Nasal Cannula 30 50
[2024-12-24 15:20] LABS: Hematocrit (blood only) 28.9 % (42.0-52.0); Hemoglobin 9.6 g/dl (14.0-18.0)
--- NOTE | 2024-12-24 15:57 | Palliative Family Discussion ---
Date of Service December 24, 2024 Patient Directed Conference Time of Meetinam-1215pm Participants: Kelly Bonds DNP Patient participation: yes Patient Support System: son/Dominic Other Healthcare Provider Participation: CCM/Dr Gallardo, Nephro/Dr Meeks, [facility] Med/Dr Shrestha, Dr Tan/Cardiology Meeting Location: pt bedside Advanced Directive available: no AD on file. pt affirmed full code The patient's surrogate medical decision maker participated: son A face to face ACP meeting was held for JIGNESH BIRD. This meeting was held at request of patient who wanted a multidisciplinary meeting with all his specialists and his son, and this was necessary for determining the appropriate course of treatment. Topics of Discussion Topics of Discussion: 1. Specialists reviewed clinical events to date and updates. In summary: lungs with adv fibrotic [id number] and COPD-incurable; kidneys failed/no urine, HD not tolerated and PD barely [id number] heading to point where dialysis will no longer be option; cardiac issues of hypertrophy and LVOT + arrhythmia, how this affects ability to tolerate HD and why HD won't be possible with cardiac issues and how they are worsening alongside his lung and kidneys 2. I reviewed with pt/son there are 3 major organ systems failing. Pt is very focused on wanting to eat/drink, he would prefer to risk aspiration than be without PO options. He is aware a BOOM MAN eval is pending. Guido had many concerns about information being repetitive: "we are just bludgeoning him with information" and "none of this is new to me, why are we even discussing it." I reassured Guido the info is being presented to pt as per his request for MDT discussion and an update where all his providers are present. 3. Code status discussed. I advised pt of CPR survival is poor at this stage and CPR will not cure, reverse or improve the reasons why he has a natural . After discussion, pt elected DNR/DNI. Aim fr now is treat what is treatable and fix what is fixable. if he has a natural allow it, assure comfort through EOL process. pt also accepts permissive aspiration, he would rather take PO Other Content of Meetin. Opportunity given for participants to speak and ask questions. 2. Participants were assured of attention to patient comfort. 3. Reassurance provided. 4. Support was provided for informed, good-evie decisions. 5. Emotions expressed by family were acknowledged and addressed. 6. Awaiting BOOM MAN eval, allow PO water for comfort/+permissive aspiration 7. Plan of Care: as noted above Time Involved in Meeting: I spent 75 minutes overall addressing this case all of which was face to face ACP discussion with pt and his son. Thank you for allowing us to participate in the ongoing care of this patient. Please page with any additional concerns. Russell Bonds DNP Director, Palliative Medicine
[2024-12-24] MEDS: PHYTONADIONE 5 MG in DEXTROSE 5% 50 ML IV ONE (17:09)
[2024-12-24] MEDS ORDERED: SODIUM CHLORIDE 0.9% 100 ML IV PRN (17:44)
[2024-12-24] MEDS ORDERED: SODIUM CHLORIDE 0.9% 50 ML IV PRN (17:44)
--- NOTE | 2024-12-24 17:45 | Hospitalist Progress Note ---
Date of Service December 24, 2024 Assessment & Plan (1) Acute hypoxic respiratory failure: Plan: 79-year-old male with PMH of PE/A-fib on Coumadin, hypertrophic CM, CAD, PVD, hypotension on midodrine, COPD/RLD, ESRD on PD, esophageal achalasia, cirrhosis, prostate cancer status post surgery, MGUS, chronic anemia [baseline hemoglobin of 10-11], cognitive impairment, inclusion body myositis, past tobacco abuse who was recently admitted for COVID - 19 pneumonia/sp decdron Rx for 3-4 days/discharged to [facility] on room air presents w/ c/o increasing weakness, fall (no head trauma, witnessed fall). Patient was noted to have signs of bilateral pneumonia and completed abx course. #Acute metabolic encephalopathy: likely 2/2 acute illness iso underlying cognitive impairment. multifactorial given acute on chronic illness Pt on and off confused. continue with delirium precautions #Sepsis iso aspiration #Acute hypoxic respiratory failure #Aspiration event, c/f aspiration pneumonitis lactate 3.8 to 3.5 --1.8, volume resuscitation limited 2/2 ESRD/tenuous respiratory status and propensity for edema/congestion speech evaled 12/24, recommends ice chips and sips of water for comfort with direct supervision and mouth care... beyond that highly recommends permissive aspiration Pt and son in discussion regarding accepting permissive aspiration, will let me know likely burton. c/w zosyn 12/22. GI bleed, UGI vs LGI: maroon colored blood noted VT 12/24, INR was elevated 4.3 on 12/24, warfarin on hold since 12/23. Maintain NPO, PPI iv bid, 1 unit prbc given acute bleed, HnH q6h, GI consult/notified, vit k 5 mg iv, f/u inr. #Bilateral pneumonia POA #COVID-19 infection c/b ARDS --CT chest with interval early bilateral pneumonia Compared to CT chest on 11/12 --ECHO: Mild concentric LVH. Asymmetric left ventricular hypertrophy involving the septum with maximal thickness of 2.1 cm. Outflow tract obstruction not identified. Cavity obliteration at mid ventricle. Left ventricle is hyperdynamic. EF > 70%. Aortic valve sclerosis mild, without significant aortic valve stenosis. --Peritoneal fluid analysis-no organism and wbc --Serology positive for COVID-19 --Blood cultures- negative to date Appreciate pulmonology input, signed off 11/23 Completed zosyn/doxycycline course & dexamethasone 10 day treatment Continue to wean oxygen as tolerated PT recommends SNF placement s/p ICU transfer on 12/10 for hypoxia, required Bipap Transferred from ICU 12/12, on 4-6L NC, briefly requiring bipap on 12/15; mostly desaturates at night time requiring oxymask encouraged to use Incentive Spirometry, Flutter Valve now dnr/dni but would like to go upto BPAP if needed. #ESRD, briefly on HD to facilitate dispo, now on PD once more given hemodynamic intolerance patient transitioned from PD to HD during admission as patient will be going to SNF upon discharge (PD not done at SNF) HD catheter placed by Vascular sx during admission course c/b intradialysis hypotension PD per nephrology , plan to remove HD. #Right pleural effusion #Intermittent dyspnea iso worsening respiratory failure and dyspnea multifactorial as above. #generalized weakness #Poor appetite patient declines discussion with behavioral health Remeron on hold due to aspiration risk. #Hypotension: Continue midodrine #Suspected dysphagia Aspiration precaution Speech eval and recs noted 12/24. #Troponin elevation secondary to illness in the setting of chronic kidney dysfunction, history ESRD on PD #Hyperglycemia secondary to diabetes HbA1c 6.7 Continue insulin while hospitalized Monitor BGs #H/O PE/A-fib (early TBS) On Coumadin--initially held due to supratherapeutic INR. Got Vit K on 12/02/24 Warfarin resumed. Monitor INR INR 4.3 on 12/24, warfarin held 12/23, received vit K 5 mg iv on 12/24 due to 12/24 pr bleed. Continue metoprolol, amiodarone. #Hypertrophic cardiomyopathy - Toprol XL changed to Metoprolol tartrate 25mg BID CAD/ PVD COPD/RLD as per records Cirrhosis on imaging from past admission Prostate cancer S/P surgery Chronic anemia, Hb stable Inclusion body myositis as per records, patient to decide on steroid Rx recommendation from local neurologist following recent outpatient visit Subclinical hypothyroidism , needs repeat thyroid function test in 6 weeks as outpatient Past tobacco abuse. CODE STATUS: DNR/DNI Disposition: tenuous, in PCU, very poor prognosis. Admission and Anticipated Discharge Date Admission Date: November 19, 2024 Subjective Patient was seen and examined at bedside multiple times today. Patient lying in bed, on 30 L oxygen via HFNC, was AOx4 during morning rounds. Patient noted to be on and off confused per nursing. We had extensive family meeting with patient, his son Guido, palliative medicine, nephrology, cardiology, pulm/crit at bedside. Extensive discussion was done regarding his very poor prognosis given underlying terminal pulmonology and cardiology issues. Patient has been unable to tolerate dialysis due to underlying comorbidities. Patient's son Guido had multiple questions regarding hospice and comfort care, patient towards the end of conversation stated that he is aware of his very poor prognosis and is aware that he does not have more time, may be less than few weeks and he accepts the fact that he is dying soon. The patient stated that he does not want to be resuscitated/no CPR. Patient wants to be DNR and DNI which patient's son agrees with. Patient's son and patient would like to take patient out of ICU since now that he is DNR/DNI so that his other family members can visit him given that he has unpredictable but possibly short remaining life span. They understand that if patient were to desaturate/decompensate acutely, he might not be able to be revived back and if such situation were to arise they might consider withdrawing care/put him on comfort measures but they do not want to decide on comfort care as of now, would like to continue with all other treatments including daily labs/blood transf usion/peritoneal dialysis but no CPR and no ICU care. RN paged me during the late noon that patient had VT bleed, patient was seen and examined at bedside, per rectal exam done with maroon-colored blood gushing out VT. Patient denied pain. Will maintain n.p.o., possibly transfuse 1 unit of blood, H&H every 6 hours, vitamin K 5 Mg IV for INR reversal, continue with PPI IV, GI consult placed and made aware. Patient's son was also made at bedside at this time and we discussed about possible rapid deterioration now given that we have additional issues with GI bleed. He understands the poor prognosis and he accepts the fact but would like to continue current level of care as described above and if some acute issues were to happen would like to be called and informed so that he can make decisions at the moment. He wants patient to be transferred out of ICU so that his other family members can meet him. He was also made aware of speech eval and their recs of sips/chips only unless permi ssive aspiration risk is accepted for any thing more, they understand and would like to continue w/ sips/chips for now and will decide on further diet by burton AM. But again due to GI bleed, he will be npo for now. They don't want tube feed/peg tube. Total of 135 minutes spent for patient care today including chart review, communication with RN, communication with the specialist, family meeting in the morning and later in the afternoon. Physical Exam Physical Exam: GENERAL: lethargic, ill-appearing, hard of hearing, no respiratory distress, on 30 L HFNC at 45%. SKIN: Pallor, warm HEENT: Pale palpebral conjunctivae, no ptosis, dry buccal mucosa NECK : Supple, no tenderness CHEST : Decreased breath sounds, no tenderness HEART : RRR, systolic murmur ABDOMEN: Some distention, PD port noted EXTREMITIES : LE swelling without LE tenderness, no other conspicuous deformities noted NEUROLOGIC : Lethargic, no facial asymmetry, slightly hard of hearing, gait and stance not assessed Results & Data Results & Data Vital Signs (Past 12 Hours) Vital Signs Temp Pulse Pulse Resp BP Pulse Ox O2 Del Method 12/24/24 15:15 84 22 90 High Flow Nasal Cannula 12/24/24 11:40 85 23 95 High Flow Nasal Cannula 12/24/24 08:19 36.3 C L 81 13 114/63 93 High Flow Nasal Cannula 12/24/24 08:00 High Flow Nasal Cannula 12/24/24 07:52 80 18 96 High Flow Nasal Cannula 12/24/24 07:00 83 O2 Flow Rate FiO2 12/24/24 15:15 30 40 12/24/24 11:40 30 40 12/24/24 08:19 30 50 12/24/24 08:00 30 50 12/24/24 07:52 30 45 12/24/24 07:00
[2024-12-24] MEDS: HYDROCORTISONE HC 2.5% CRM 30GM TUBE EXT ONE (17:46)
[2024-12-24 17:47] LABS: Hematocrit (blood only) 28.2 % (42.0-52.0); Hemoglobin 9.5 g/dl (14.0-18.0)
[2024-12-24] MEDS: PANTOprazole 40 MG/10 ML SYR IV SCH (17:54)
[2024-12-24] MEDS: HYDROCORTISONE HC 2.5% CRM 30GM TUBE EXT SCH (21:46)
[2024-12-25 01:00] LABS: INR 1.6 (0.9-1.1); Prothrombin Time 16.5 Seconds (9.0-12.0)
[2024-12-25 01:02] LABS: Hematocrit (blood only) 31.4 % (42.0-52.0); Hemoglobin 10.6 g/dl (14.0-18.0)
[2024-12-25 06:33] LABS: Hematocrit (blood only) 29.4 % (42.0-52.0); Hemoglobin 10.4 g/dl (14.0-18.0); Mean Corpuscular Hemoglobin 29.5 pg (25.0-34.0); Mean Corpuscular Hgb Conc 35.4 g/dL (32.0-36.0); Mean Corpuscular Volume 83.3 fL (80.0-100.0); Mean Platelet Volume 10.8 fL (9.4-12.4); Nucleated RBC # (auto) 0.19 K/uL (0.00-0.12); Nucleated RBC % (auto) 1.1 %; Platelet Count 401 K/uL (130-400); RDW Coefficient of Variation 15.9 % (11.5-14.5); RDW Standard Deviation 46.8 fL (36.4-46.3); Red Blood Count 3.53 M/uL (4.70-6.10); White Blood Count 17.69 K/ul (4.8-10.8)
[2024-12-25 07:00] LABS: INR 1.3 (0.9-1.1)
[2024-12-25 07:02] LABS: BUN Creatinine Ratio 10.3 (10-20); Calcium 8.4 mg/dl (8.6-10.3); Creatinine Clr Calc Pharmacy 7.9 ml/min; Magnesium 2.2 mg/dl (1.7-2.4); Phosphorus 6.1 mg/dl (2.5-4.9); Potassium 4.6 mmol/L (3.5-5.1)
--- NOTE | 2024-12-25 08:21 | Gastrointestinal Consultation ---
Date of Consultation December 25, 2024 Assessment & Plan (1) GI bleed: GI bleed aggravated by supratherapeutic INR. INR now normalized. Hemodynamically stable. In light of prior colonoscopy this could represent a diverticular bleed. In addition need to consider an upper GI source such as peptic ulcer disease in light of comorbidities and prolonged hospital stay. Does have a history of cirrhosis to also consider consequences of portal hypertension such as varices however this does not seem likely clinically. Other possibilities could include some colonic ischemia as well as gastritis or esophagitis. In light of comorbidities with treat medically at this time with IV PPI close monitoring of his hemoglobin and hematocrit. Await family decision concerning management and his wishes. Needs to be medically stable for any endoscopic procedures at this time. Will follow. History of Present Illness Reason for Consultation: GI bleed Attending Physician: Amy Shrestha MD History of Present Illness Patient with a prolonged hospital stay since November. Treated for COVID-19 pneumonia complicated by progressive renal dysfunction requiring dialysis which he could not tolerate and refused further treatments. History of PE/atrial fibrillation cardiomyopathy COPD. Has been in discussions with palliative care about future medical care. Yesterday had several episodes of maroon stool. Required 1 unit of blood. Hemoglobin presently 10.4. Had a colonoscopy last March 2024 which showed some benign colon polyps and diverticulosis. He has never had an upper endoscopy but chart has a history of cirrhosis which patient cannot confirm to me when I was taking his history. Bleeding in the setting of a supratherapeutic INR. Allergies Allergy/AdvReac Type Severity Reaction Status Date / Time No Known Allergies Allergy Verified 11/12/24 22:14 Home Medications Medication Instructions Recorded Confirmed Type amiodarone 200 mg tablet 200 mg PO DAILY 10/16/24 11/19/24 History metoprolol succinate 25 mg 25 mg PO DAILY 10/16/24 11/19/24 History tablet,extended release 24 hr midodrine 2.5 mg tablet 2.5 mg PO AMPM 10/16/24 11/19/24 History warfarin 2 mg tablet 2 mg PO DAILY 10/19/24 11/19/24 History docusate sodium 100 mg capsule 100 mg PO BID #60 caps 10/21/24 11/19/24 Rx polyethylene glycol 3350 17 gram 17 g PO DAILY PRN constipation #30 10/21/24 11/19/24 Rx oral powder packet (Miralax) ea Lactobacillus acidophilus 1 tab PO DAILY 11/12/24 11/19/24 History Renal Multivit W/1mg Or <Fa 1 tab PO DAILY 11/12/24 11/19/24 History acetaminophen 500 mg tablet 500 mg PO Q6H 11/12/24 11/19/24 History cholecalciferol (vitamin D3) 50 50 mcg PO DAILY 11/12/24 11/19/24 History mcg (2,000 unit) capsule (Vitamin D3) gentamicin 0.1 % topical cream 1 applic topical DAILY 11/12/24 11/19/24 History lanolin alcohols-mineral 1 applic topical UD PRN SKIN CARE 11/12/24 11/19/24 History oil-w.petrolatum-ceresin topical cream (Eucerin topical cream) maltodextrin 1 ea PO QAM PRN Constipation 11/12/24 11/19/24 History menthol 0.44 %-zinc oxide 20.6 % 1 applic topical DAILY 11/12/24 11/19/24 History topical ointment (Calmoseptine) metoprolol tartrate 25 mg tablet 25 mg PO DAILY PRN HR > 100 @ REST 11/12/24 11/19/24 History pantoprazole 40 mg tablet,delayed 40 mg PO DAILY 11/12/24 11/19/24 History release doxycycline hyclate 100 mg capsule 100 mg PO BID 6 days #12 caps 11/15/24 11/19/24 Rx Patient History Medical History CAP (community acquired pneumonia) Hypotension ESRD on peritoneal dialysis Renal cyst 3.9 cm cystic lesion-L Paroxysmal A-fib listed in [facility] records CAD (coronary artery disease) PVD (peripheral vascular disease) Dysphagia Anemia Pulmonary nodule MGUS (monoclonal gammopathy of unknown significance) follows with [facility] heme/onc LBBB (left bundle branch block) Hearing deficit Surgical History History of appendectomy History of tooth extraction all teeth removed History of bilateral cataract extraction History of prostatectomy Family History Father Diabetes Other No family history of adverse response to anesthesia Social History Smoking Status: Former smoker Tobacco Type: Cigarettes Second Hand Exposure: No; Do You Dip or Chew Tobacco: No; Hx Alcohol Use: No Hx Substance Use: Yes Preferred Language: Angolan Communication Ability: Effective Template Reproduction Technician Required: No Beliefs That Will Affect Care: None Current Living Situation: Halfway Current Living Situation Comment: lives at facility Feels Safe at Home: Yes Assistive Devices: Walker Review of Systems Review of Systems: None abdominal pain and chest pain mild shortness of breath Physical Exam Physical Exam: mild distress Respiratory rate increased Cardiac rhythm regular Abdomen soft nontender no rebound no guarding no masses Results & Data Vital Signs (Past 12 Hours) Vital Signs Temp Pulse Pulse Resp BP BP Pulse Ox 12/25/24 07:58 36.2 C L 80 18 109/71 90 12/25/24 03:49 36.4 C L 78 17 117/66 91 12/25/24 02:13 80 18 92 12/24/24 23:23 94 H 20 93 12/24/24 22:48 36.4 C L 86 16 109/67 95 12/24/24 22:40 36.4 C L 86 15 108/66 95 12/24/24 21:51 89 20 90 12/24/24 21:40 36.4 C L 89 20 100/68 93 12/24/24 21:10 36.4 C L 89 22 108/68 93 12/24/24 20:55 36.4 C L 88 22 106/68 90 12/24/24 20:38 36.3 C L 90 20 103/67 90 12/24/24 20:25 36.4 C L 86 17 107/67 94 O2 Del Method O2 Flow Rate FiO2 12/25/24 07:58 CPAP 12/25/24 03:49 High Flow Nasal Cannula 12/25/24 02:13 High Flow Nasal Cannula 30 35 12/24/24 23:23 High Flow Nasal Cannula 30 40 12/24/24 22:48 12/24/24 22:40 30 12/24/24 21:51 High Flow Nasal Cannula 30 40 12/24/24 21:40 30 12/24/24 21:10 30 12/24/24 20:55 12/24/24 20:38 12/24/24 20:25 High Flow Nasal Cannula PG Care Time/CCT Total # of Minutes Spent Total Time Spent with Patient: Total time spent is greater than 50% in coordination of care (as documented) at patient's floor/unit and/or counseling patient: Coding Level of Care Code 43221 INT INP/OBS CARE 3/75MIN Diagnoses GI bleed K92.2
[2024-12-25] MEDS: ACETAMINOPHEN 1,000 MG/100 ML VIAL IV PRN (08:52)
[2024-12-25 11:26] LABS: Hematocrit (blood only) 28.3 % (42.0-52.0); Hemoglobin 9.8 g/dl (14.0-18.0)
--- NOTE | 2024-12-25 12:03 | Hospitalist Progress Note ---
Date of Service December 25, 2024 Assessment & Plan (1) Acute hypoxic respiratory failure: Plan: 79-year-old male with PMH of PE/A-fib on Coumadin, hypertrophic CM, CAD, PVD, hypotension on midodrine, COPD/RLD, ESRD on PD, esophageal achalasia, cirrhosis, prostate cancer status post surgery, MGUS, chronic anemia [baseline hemoglobin of 10-11], cognitive impairment, inclusion body myositis, past tobacco abuse who was recently admitted for COVID - 19 pneumonia/sp decdron Rx for 3-4 days/discharged to [facility] on room air presents w/ c/o increasing weakness, fall (no head trauma, witnessed fall). Patient was noted to have signs of bilateral pneumonia and completed abx course. #Acute metabolic encephalopathy: likely 2/2 acute illness iso underlying cognitive impairment. multifactorial given acute on chronic illness Pt on and off confused. continue with delirium precautions #Sepsis iso aspiration #Acute hypoxic respiratory failure #Aspiration event, c/f aspiration pneumonitis lactate 3.8 to 3.5 --1.8, volume resuscitation limited 2/2 ESRD/tenuous respiratory status and propensity for edema/congestion speech evaled 12/24, recommends ice chips and sips of water for comfort with direct supervision and mouth care... beyond that highly recommends permissive aspiration Pt and son accepts permissive aspiration. c/w zosyn 12/22. GI bleed, UGI vs LGI: maroon colored blood noted RI 12/24, INR was elevated 4.3 on 12/24 s/p vit k 5 mg iv, warfarin on hold since 12/23. Maintain NPO, PPI iv bid, s/p 1 unit prbc 12/24, c/w HnH q6h, GI consult/appreciate recs. can c/w w/ sips/chips and clears if pt able to be wake enough. #Bilateral pneumonia POA #COVID-19 infection c/b ARDS --CT chest with interval early bilateral pneumonia Compared to CT chest on 11/12 --ECHO: Mild concentric LVH. Asymmetric left ventricular hypertrophy involving the septum with maximal thickness of 2.1 cm. Outflow tract obstruction not identified. Cavity obliteration at mid ventricle. Left ventricle is hyperdynamic. EF > 70%. Aortic valve sclerosis mild, without significant aortic valve stenosis. --Peritoneal fluid analysis-no organism and wbc --Serology positive for COVID-19 --Blood cultures- negative to date Appreciate pulmonology input, signed off 11/23 Completed zosyn/doxycycline course & dexamethasone 10 day treatment Continue to wean oxygen as tolerated PT recommends SNF placement s/p ICU transfer on 12/10 for hypoxia, required Bipap Transferred from ICU 12/12, on 4-6L NC, briefly requiring bipap on 12/15; mostly desaturates at night time requiring oxymask encouraged to use Incentive Spirometry, Flutter Valve now dnr/dni and don't want icu care but would like to go upto BPAP if needed/tolerated. #ESRD, briefly on HD to facilitate dispo, now on PD once more given hemodynamic intolerance patient transitioned from PD to HD during admission as patient will be going to SNF upon discharge (PD not done at SNF) HD catheter placed by Vascular sx during admission course c/b intradialysis hypotension PD per nephrology , plan to remove HD. #Right pleural effusion #Intermittent dyspnea iso worsening respiratory failure and dyspnea multifactorial as above. #generalized weakness #Poor appetite patient declines discussion with behavioral health Remeron on hold due to aspiration risk. #Hypotension: Continue midodrine #Suspected dysphagia Aspiration precaution Speech eval and recs noted 12/24. #Troponin elevation secondary to illness in the setting of chronic kidney dysfunction, history ESRD on PD #Hyperglycemia secondary to diabetes HbA1c 6.7 Continue insulin while hospitalized Monitor BGs #H/O PE/A-fib (early TBS) On Coumadin--initially held due to supratherapeutic INR. Got Vit K on 12/02/24 Warfarin resumed. Monitor INR INR 4.3 on 12/24, warfarin held 12/23, received vit K 5 mg iv on 12/24 due to 12/24 pr bleed. Continue metoprolol, amiodarone. #Hypertrophic cardiomyopathy - Toprol XL changed to Metoprolol tartrate 25mg BID CAD/ PVD COPD/RLD as per records Cirrhosis on imaging from past admission Prostate cancer S/P surgery Chronic anemia, Hb stable Inclusion body myositis as per records, patient to decide on steroid Rx recommendation from local neurologist following recent outpatient visit Subclinical hypothyroidism , needs repeat thyroid function test in 6 weeks as outpatient Past tobacco abuse. CODE STATUS: DNR/DNI Disposition: tenuous, in PCU, very poor prognosis. time spent: 73 min. Admission and Anticipated Discharge Date Admission Date: November 19, 2024 Subjective Patient was seen and examined at bedside multiple times today. Patient lying in bed, on 30 L oxygen via HFNC, appears confused today. Patient noted to be on and off confused per nursing. Per dialysis note, he refused dialysis last evening. Pt states that he wants to continue w/ PD today, d/w nephro, plan for PD tonight, ok for NS D5w at gentle rate of 40 ml/hr due to prolonged NPO status. Pt continues to bleed RI, GI evaled, appreciate recs, will continue w/ conservative management at the moment. Met w/ patients son at bedside during separate visit to bedside than rounding. He is aware pt has GI bleed, he accepts the fact pt is approaching , but they want him to be able to see some family members and would like to continue current level of care. He is acceptable of aspiration risk when it is appropriate to resume diet give underlying GI bleed. He wants to continue w/ PD. Physical Exam Physical Exam: GENERAL: lethargic, ill-appearing, hard of hearing, no respiratory distress, on 30 L HFNC at 35%. SKIN: Pallor, warm HEENT: Pale palpebral conjunctivae, no ptosis, dry buccal mucosa NECK : Supple, no tenderness CHEST : Decreased breath sounds, no tenderness HEART : RRR, systolic murmur ABDOMEN: Some distention, PD port noted EXTREMITIES : LE swelling without LE tenderness, no other conspicuous deformities noted NEUROLOGIC : Lethargic, no facial asymmetry, slightly hard of hearing, gait and stance not assessed bed stained w/ maroon colored blood. Results & Data Results & Data Vital Signs (Past 12 Hours) Vital Signs Temp Pulse Resp BP Pulse Ox O2 Del Method O2 Flow Rate 12/25/24 11:29 36.2 C L 75 18 107/62 93 CPAP 12/25/24 11:11 73 18 93 High Flow Nasal Cannula 30 12/25/24 08:00 High Flow Nasal Cannula 30 12/25/24 07:58 36.2 C L 80 18 109/71 90 CPAP 12/25/24 03:49 36.4 C L 78 17 117/66 91 High Flow Nasal Cannula 12/25/24 02:13 80 18 92 High Flow Nasal Cannula 30 FiO2 12/25/24 11:29 12/25/24 11:11 35 12/25/24 08:00 35 12/25/24 07:58 12/25/24 03:49 12/25/24 02:13 35
[2024-12-25] MEDS: D5W AND NSS 1,000 ML IV SCH (12:24)
[2024-12-25 15:28] VITALS: BP 109/64; TEMP 97.3
--- NOTE | 2024-12-25 15:33 | Nephrology Progress Note ---
Date of Service December 25, 2024 Assessment & Plan (1) ESRD (end stage renal disease) on dialysis: Plan: ESRD currently on PD > switched to this b/c needs better oxygenation, needs lower 02 needs so can do HD, with known LVOT obstruction, making fluid removal VERY touchy w/ this modality. tolerates PD. GOAL was for HD for rehab and PD after that/on return home; but patient did not tolerate HD due to hemodynamic instability will do PD tonight for 10 hours 5 exchanges using 1.5% dextrose. Extensive discussion with Dr. Molina villagomez goals of care, current modality strategy we are in agreement on doing PD tonight. (2) Counseling regarding goals of care: Plan: patient and son insisted on continuing PD. 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 Patient refused PD last night but this morning he says he wants to continue PD. Son Guido was at the bedside and also said they want to continue PD. Patient is having massive GI bleed and is not a candidate for endoscopies due to poor health. He is also on high flow oxygen. Review of Systems 2 Review of Systems: All other systems were reviewed and negative except as noted in HPI Physical Exam 2 Physical Exam: General exam: Appears comfortable, no acute distress , on high flow oxygen HEENT: Pupils are equal and reactive to light Neck: No JVD, neck is supple trachea is midline Respiratory system: Clear breath sounds bilaterally. Gastrointestinal: Abdomen is soft, non distended, non tender, bowel sounds are present CVS: Regular rate and rhythm. No murmurs, rubs or gallops Musculoskeletal: No joint or muscle tenderness Extremities: Non tender, no edema, peripheral pulses are present Neuro: Oriented, no tremors, no focal neurological deficits Skin: No rashes Results & Data Vital Signs (Past 12 Hours) Vital Signs Temp Pulse Pulse Resp BP Pulse Ox O2 Del Method 12/25/24 15:22 75 18 91 High Flow Nasal Cannula 12/25/24 11:29 36.2 C L 75 18 107/62 93 CPAP 12/25/24 11:11 73 18 93 High Flow Nasal Cannula 12/25/24 08:00 High Flow Nasal Cannula 12/25/24 07:58 36.2 C L 80 18 109/71 90 CPAP 12/25/24 07:00 79 12/25/24 03:49 36.4 C L 78 17 117/66 91 High Flow Nasal Cannula O2 Flow Rate FiO2 12/25/24 15:22 30 35 12/25/24 11:29 12/25/24 11:11 30 35 12/25/24 08:00 30 35 12/25/24 07:58 12/25/24 07:00 12/25/24 03:49 Laboratory Results 12/25/24 06:18 12/25/24 06:18 WBC 17.69 H RBC 3.53 L MCV 83.3 MCH 29.5 MCHC 35.4 RDW Std Deviation 46.8 H RDW Coeff of Maureen 15.9 H Plt Count 401 H MPV 10.8 Phosphorus 6.1 H
[2024-12-25 17:21] LABS: Hematocrit (blood only) 27.5 % (42.0-52.0); Hemoglobin 9.6 g/dl (14.0-18.0)
[2024-12-25] MEDS ORDERED: STAT IV Infusion **Titration per Protocol STA (17:31)
[2024-12-25] MEDS: HYDROmorphone 100 MG/100 ML BAG IV SCH (18:27)
[2024-12-25] MEDS: LORazepam 2 MG/1 ML VIAL IV PRN (18:36)
[2024-12-25 20:56] VITALS: PULSE 75; RESP 16; O2SAT 86
[2024-12-26] MEDS: HYDROmorphone BOLUS from BAG IV PRN (06:05)
--- NOTE | 2024-12-26 14:10 | Hospitalist Progress Note ---
Date of Service December 26, 2024 Assessment & Plan (1) Acute hypoxic respiratory failure: Plan: 79-year-old male with PMH of PE/A-fib on Coumadin, hypertrophic CM, CAD, PVD, hypotension on midodrine, COPD/RLD, ESRD on PD, esophageal achalasia, cirrhosis, prostate cancer status post surgery, MGUS, chronic anemia [baseline hemoglobin of 10-11], cognitive impairment, inclusion body myositis, past tobacco abuse who was recently admitted for COVID - 19 pneumonia/sp decdron Rx for 3-4 days/discharged to [facility] on room air presents w/ c/o increasing weakness, fall (no head trauma, witnessed fall). Patient was noted to have signs of bilateral pneumonia and completed abx course. He was being managed for the following: #Acute metabolic encephalopathy: likely 2/2 acute illness iso underlying cognitive impairment. 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 Patient appears comfortable, no new need or complaints. Admission and Anticipated Discharge Date Admission Date: November 19, 2024 Subjective Patient was seen and examined at bedside. Patient was lying in bed, on 3 L oxygen via nasal cannula, appears comfortable, denies any pain or air hunger. Physical Exam Physical Exam: GENERAL: lethargic, ill-appearing, hard of hearing, no respiratory distress, on 3L NC O2 SKIN: Pallor, warm HEENT: Pale palpebral conjunctivae, no ptosis, dry buccal mucosa NECK : Supple, no tenderness CHEST : Decreased breath sounds, no tenderness HEART : RRR, systolic murmur ABDOMEN: No distention, PD port noted EXTREMITIES : LE swelling without LE tenderness, no other conspicuous deform ities noted NEUROLOGIC : Lethargic, no facial asymmetry, slightly hard of hearing, gait and stance not assessed Results & Data Results & Data Vital Signs (Past 12 Hours) Vital Signs O2 Del Method O2 Flow Rate 12/26/24 07:35 Nasal Cannula 3
[2024-12-26] MEDS: ONDANSETRON INJ 2 MG/ML 2 ML VIAL IV PRN (18:49)
[2024-12-26] MEDS: HYDROmorphone INJ 0.5 MG/0.5 ML SYR IV PRN (20:50)
--- NOTE | 2024-12-26 23:51 | Communication Note ---
Date of Service: December 26, 2024 Patient with profuse rectal bleeding and urinary incontinence as per RN. Need to clean patient frequently causing potential increasing patient discomfort. Fecal management system and Murray catheter for patient comfort as per RN recommendation.
[2024-12-27] MEDS: GLYCOPYRROLATE 0.2 MG/ML VIAL IV PRN (05:28)
--- NOTE | 2024-12-27 10:52 | Palliative Care Progress Note ---
Date of Service December 27, 2024 Assessment & Plan (1) Dyspnea and respiratory abnormalities: Plan: CARDS related fibrotic lung + COPD Progressive cardiopulmonary failure complicated by cardiorenal failure Intol of HD not a PD candidate Terminally ill noted by nephro no longer able to safely tolerate HD, persistent hypotension (2) Palliative care by specialist: (3) Need for comfort care: Plan Continue Dilaudid infusion, no new orders at this time. Continue to monitor for progression of respiratory distress and uptitrate Dilaudid as needed to control end-of-life suffering. Thank you for allowing us to participate in the ongoing care of this patient. Please page with any additional concerns. Russell Bonds DNP Director, Palliative Medicine Admission and Anticipated Discharge Date Admission Date: November 19, 2024 Shantell Kan was moved to comfort care over the weekend. He is currently resting in bed, Dilaudid infusion in progress. No family at the bedside. He appears comfortable. There is mild intermittent respiratory distress but no obvious grimacing, gurgling secretions or frowning. Review of Systems Review of Systems: Unobtainable due to reduced consciousness Physical Exam Physical Exam: Chronically ill-appearing elderly male, sedated, resting in bed. Does not awaken to voice. Mild increased respiratory effort. mild bitemp wasting neck supple/no stridor Lung sounds diminished tachy s1s2 abd soft, BS+ +gen weakness Skin pale, cool to touch Results & Data Vital Signs (Past 12 Hours) Vital Signs O2 Del Method 12/26/24 22:57 Nasal Cannula Laboratory Results ART HISTORIAN, no new lab Diagnostic Findings ART HISTORIAN, no new diagnostics PG Care Time/CCT Total # of Minutes Spent Total Time Spent: 45 Total Time Spent with Patient: Total time spent is greater than 50% in coordination of care (as documented) at patient's floor/unit and/or counseling patient: [place] [address] SUB INP/OBS CARE 3/50MIN Patient Type Established History Comprehensive Exam Comprehensive Medical Decision Making High Complexity Diagnoses Dyspnea and respiratory abnormalities R06.00; R06.89 Palliative care by specialist Z51.5 Need for comfort care
--- NOTE | 2024-12-27 11:56 | Hospitalist Progress Note ---
Date of Service December 27, 2024 Assessment & Plan (1) Acute hypoxic respiratory failure: Plan: 79-year-old male with PMH of PE/A-fib on Coumadin, hypertrophic CM, CAD, PVD, hypotension on midodrine, COPD/RLD, ESRD on PD, esophageal achalasia, cirrhosis, prostate cancer status post surgery, MGUS, chronic anemia [baseline hemoglobin of 10-11], cognitive impairment, inclusion body myositis, past tobacco abuse who was recently admitted for COVID - 19 pneumonia/sp decdron Rx for 3-4 days/discharged to [facility] on room air presents w/ c/o increasing weakness, fall (no head trauma, witnessed fall). Patient was noted to have signs of bilateral pneumonia and completed abx course. He was being managed for the following: #Acute metabolic encephalopathy: likely 2/2 acute illness iso underlying cognitive impairment. 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 Patient appears comfortable, no new need or complaints. Admission and Anticipated Discharge Date Admission Date: November 19, 2024 Subjective Patient was seen and examined at bedside. He is lying in bed, appears comfortable, on Dilaudid drip. No family at bedside. Physical Exam Physical Exam: appears comfortable CTA drowsy no ble edema Fecal Management system and Murray in situ for comfort.
--- NOTE | 2024-12-27 14:22 | Death Pronouncement Note ---
Date of Service December 27, 2024 Pronouncement Note Admission Date November 19, 2024 Date and Time of Date of : 12/27/24 Time of : 14:00 Summary refer to dc summary. Caused of : Acute hypoxic respiratory failure in the setting of pulmonary fibrosis 2/2 pneumonia due to COVID 19 virus. Additional Data Confirmation of : no pulse, no respirations, no heart sounds and pupils fixed and dilated Family: contacted Attending physician: Amy Shrestha MD Was code activated?: No Autopsy requested?: No cloth colors examiner notified?: No
--- NOTE | 2024-12-27 14:26 | Discharge Summary ---
Date of Service December 27, 2024 Admission HPI Per Admitting Provider History obtained from patient, ED provider, and records. Limited history from patient secondary to lethargic state. Medical history significant for PE/A-fib (early TBS) on Coumadin, hypertrophic cardiomyopathy, moderate TR, CAD, PVD, hypotension on midodrine, COPD/RLD as per records, recent COVID-19 pneumonia, ESRD on PD, esophageal achalasia as per records, cirrhosis, prostate cancer status post surgery, MGUS, chronic anemia (baseline hemoglobin 10-11), cognitive impairment, inclusion body myositis as per records, past tobacco abuse. Recent November 122024 for severe COVID-19 pneumonia. Patient received Decadron Rx and discharged on doxycycline course. Patient noted by son to be increasingly weak at personal care facility. Still coughing. Patient feeling spaced out. Patient had a fall in the bathroom yesterday witnessed by son during peritoneal dialysis. No head trauma. Patient denies chest pain, LOC, abdominal pain. Patient looks short of breath and shaky as per personal care facility staff n ote. Temperature elevation of 100. SBP 90s upon arrival at the ER. 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 Admission Exam Per Admitting Provider GENERAL: lethargic, ill-appearing, hard of hearing, no respiratory distress SKIN: Pallor, warm HEENT: Pale palpebral conjunctivae, no ptosis, dry buccal mucosa NECK : Supple, no tenderness CHEST : Decreased breath sounds, no tenderness HEART : RRR, systolic murmur ABDOMEN: Some distention, PD port noted EXTREMITIES : LE swelling without LE tenderness, no other conspicuous deformities noted NEUROLOGIC : Lethargic, no facial asymmetry, slightly hard of hearing, gait and stance not assessed Principal Diagnosis Acute hypoxic respiratory failure Discharge Exam Patient unresponsive Pupils fixed and dilated Lack of pupillary reflex No pulse No heart sounds No breath sounds Discharge Data Allergies Allergy/AdvReac Type Severity Reaction Status Date / Time No Known Allergies Allergy Verified 11/12/24 22:14 Consultations 11/19/24 03:32 Consult Nephrology Routine 11/19/24 03:55 ED Decision to Admit Stat 11/23/24 10:08 Consult Pulmonology Routine 12/01/24 14:30 Consult Vascular Surgery Routine 12/10/24 12:10 Consult Palliative Care Routine 12/10/24 12:41 Consult Patient Rep [Consult Patient Services] Routine 12/10/24 15:02 Consult Cardiology Routine 12/23/24 00:26 Consult Ironer Sock Routine 12/23/24 08:39 Consult Cardiology Routine 12/24/24 16:42 Consult Gastroenterology Routine Procedures Performed Operation Date: 12/06/24 07:00 Actual Procedures p Perm Catheter Insertion, Right Internal Jugular approach, Ultrasound Localization of Right Internal Jugular Vein, Fluoroscopy for Positioning(Right) - Osito Spann MD Ordered Studies 11/19/24 00:13 CT cervical spine wo con Stat CT head/brain wo con Stat 11/19/24 12:07 CT chest diagnostic wo/w con Routine 12/06/24 09:39 EV cvc insrt tunnel wo prt/coal deliverer Routine US EV guide vascular access Routine 12/07/24 19:56 CT head/brain wo con Urgent 12/10/24 11:45 US venous doppler LE BI Routine 12/10/24 13:12 CT angio chest PE protocol Stat Diabetes Follow up Diabetes Follow-up Needed for Newly Diagnosed Diabetes Hospital Course (1) Acute hypoxic respiratory failure: 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 Patient appears comfortable in AM exam, 1400 hrs on 12/27/2024. Cause of : Acute hypoxic respiratory failure in the setting of pulmonary fibrosis 2/2 pneumonia due to COVID 19 virus. Pt's son Guido was given a phone call and updated personally. Home Health Attestation I certify that this patient is under my care and that I, or a physicians malt specifications control assistant working with me, had a face to-face encounter that meets the home health [id number] encounter requirements with this patient. The encounter with the patient was in whole, or in part, for the following medical condition, which is the primary reason for home health care (list medical condition): I certify that, based on my findings, the following services are medically necessary home health services: My clinical findings support the need for the above services because: Further, I certify that my clinical findings support that this patient is homebound (i.e. absences from home require considerable and taxing effort and are for medical reasons or confucianism services or infrequently or of short duration when for other reasons) because: Certification for Home Health Services: Based on the above findings, I certify that this patient is confined to the home and needs intermittent intermediate care, physical therapy and/or speech therapy or continues to need occupational therapy. The patient is under my care, and I have initiated the establishment of the plan of care. This patient will be followed by a physician who will periodically review the plan of care. Total Time Total Time Spent Total Time Spent (In Minutes): 35 Discharge Plan Discharge Items Patient Disposition: Other Date/Time: 12/27/24 14:00
== END 2024-12-27 17:36 | disposition expired | DRG 871 ==
LOC: ED 23:43 → SUATTDRO 11-19 03:30 → 2N 11-19 03:30 → 1E 11-23 17:24 → 2E 11-28 12:25 → 1E 12-10 11:19 → 4W 12-13 01:50 → 1E 12-23 01:36 → 4W 12-24 18:29 → 3W 12-25 22:54